=== PATIENT | male | born 1940 | race Caucasian/White ===

== ENCOUNTER → 2017-08-31 09:43 | Outpatient (CLI) | payer MEDICARE, BC, SELFPAY ==
--- NOTE | 2017-08-31 09:46 | NM_ITS ---
CLINICAL: 77-year-old diabetic male presenting for evaluation of gastric emptying. SEMI-SOLID PHASE 99m Tc SULFUR COLLOID GASTRIC EMPTYING STUDY COMPARISON: None available FINDINGS: The patient was administered 1.1 mCi of 99m Tc sulfur colloid mixed with oatmeal and consumed per os. Image acquisitions in the anterior-posterior projections were obtained for 60 minutes. There is prompt visualization of the stomach. There is no gastroesophageal reflux identified. The T1/2 linear fit was calculated to be 44.90 minutes, (Normal: 12-56 minutes). NM/Gastric Emptying Study IMPRESSION: 1. NORMAL 99m Tc sulfur colloid semi-solid phase (oatmeal) gastric emptying imaging examination. A. There is normal and preserved semi-solid phase gastric emptying compared to normal controls. ([place] et al, J Nucl Med Tech 38: 186, 2010). Electronically Signed: Branden Abarca DO at 10:37 EST Tel , Service support ,
== END ==
PROVIDERS: Family Provider Family Medicine; PCP Family Medicine; Visit Provider Family Medicine
DX: E11.65 Type 2 diabetes mellitus with hyperglycemia (principal)
CPT/HCPCS: 78264; A9541

== ENCOUNTER → 2017-11-03 13:47 | Outpatient (CLI) | payer MEDICARE, BC, SELFPAY ==
[2017-11-03 14:16] LABS: Bacteria 0 SEEN /hpf (None Seen); Red Blood Cells-Urine 0 SEEN /hpf (0-5); Squamous Epithelial Cells - UA 0 SEEN /hpf (0-5); White Blood Cells 0 SEEN /hpf (0-5)
[2017-11-03 15:47] LABS: Absolute Lymphocyte Count 2.24 X10^3/ul (0.83-4.51); Absolute Neutrophil Count 6.2 X10^3/uL (2.0-7.7); Basophil# 0.04 X10^3/uL; Basophil% 0.4 % (0-1); Eosinophils% 1.1 % (0-5); Hematocrit 39.4 % (40-54); Hemoglobin 13.1 g/dl (13.0-16.5); Lymphocyte # 2.24 X10^3/ul (4.0); Lymphocyte % 23.9 % (19-41); Mean Corp Hgb Conc 33.2 g/gl (32-36); Mean Corpuscular Volume 90.2 fL (80-94); Mean Platelet Vol. 10.1 fl (6.2-12.0); Monocyte# 0.77 X10^3/uL; Monocyte% 8.2 % (0-10); Neutrophil # 6.21 X10^3/uL (2.7-7.7); Neutrophil % 66.3 % (47-70); Platelet Count 268 K/mm3 (150-450); RBC Distribution Width CV 14.9 % (11.6-14.6); RBC Distribution Width SD 49.1 fl (35.1-43.9); Red Blood Count 4.37 M/mm3 (4.6-6.2); White Blood Count 9.4 K/mm3 (4.4-11.0)
[2017-11-03 15:54] LABS: POSITIVE COUNT NO; POSITIVE DIFFERENTIAL NO; POSITIVE MORPHOLOGY NO
[2017-11-03 15:55] LABS: ALB/GLOB Ratio 0.9 RATIO (0.9-2.4); AST(SGOT) 35 U/L (15-37); Alanine Aminotransfer ALT/SGPT 49 U/L (16-61); Albumin, Serum 3.4 g/dL (3.2-5.0); Alkaline Phosphatase 151 U/L (45-117); Anion Gap 9 (5-15); BUN 31 mg/dL (7-18); BUN/Creat Ratio 23.1 RATIO (10-20); Calcium,Total 8.6 mg/dL (8.5-10.1); Chloride 104 mmol/L (98-107); Creatinine, Serum 1.34 mg/dL (0.70-1.30); EST Glomerular Filtration Rate 55 mL/min (>60); Est Glom Filt Rate - Afr Amer 67 mL/min (>60); Globulin 3.6 g/dL (2.2-4.2); Glucose 111 mg/dL (74-106); Magnesium 2.3 mg/dL (1.6-2.6); Phosphorus 3.8 mg/dL (2.5-4.9); Potassium 3.7 mmol/L (3.5-5.1); Sodium Level 139 mmol/L (136-145)
[2017-11-03 15:59] LABS: Color, Urine Yellow (Yellow); Glucose, Dipstick Normal (Normal); Ketone-Dipstick Negative (Negative); Leukocyte Esterase-Dipstick Negative /ul (Negative); Nitrite-Dipstick Negative (Negative); Occult Blood-Urine Negative /ul (Negative); Protein-Dipstick Negative (Negative); Specific Gravity, Urine 1.015 (1.002-1.030); Urine Bilirubin Dipstick Negative (Negative); Urine Clarity Clear (Clear); Urine Urobilinogen Normal (Normal)
[2017-11-03 16:00] LABS: Hemoglobin A1c 8.6 % (4.2-6.3)
[2017-11-03 16:10] LABS: Hyaline Cast 0-5 SEEN /lpf (0-5); Mucous, Urine RARE /hpf (<or=2+)
[2017-11-03 16:25] LABS: Microalbumin,Random Urine 27.4 mg/L (NO RANGE EST.); Microalbumin:Creatinine Ratio 47.2 mg/g CRE (<30 mg/g CRE); Protein:Creat Ratio 275 mg/g CRE (0-200)
[2017-11-04 11:58] LABS: Vitamin D,25 Hydroxy 54.8 ng/mL (29.95-100.01)
[2017-11-04 12:02] LABS: PTHIN 49.7 pg/mL (18.4-80.1)
== END ==
PROVIDERS: Family Provider Family Medicine; PCP Family Medicine; Visit Provider Family Medicine
DX: I12.9 Hypertensive chronic kidney disease with stage 1 through stage 4 chronic kidney disease, or unspecified chronic kidney disease (principal); N18.3 Chronic kidney disease, stage 3 (moderate); E11.65 Type 2 diabetes mellitus with hyperglycemia; R80.9 Proteinuria, unspecified
CPT/HCPCS: 36415; 80053; 81001; 82043; 82306; 82570; 83036; 83735; 83970; 84100; 84156; 85025

== ENCOUNTER → 2018-02-07 10:03 | Outpatient (CLI) | payer MEDICARE, BC, SELFPAY ==
[2018-02-07 12:03] LABS: Absolute Neutrophil Count 5.1 X10^3/uL (2.0-7.7); Basophil# 0.04 X10^3/uL; Basophil% 0.5 % (0-1); Eosinophil# 0.19 X10^3/uL; Eosinophils% 2.5 % (0-5); Hematocrit 40.6 % (40-54); Hemoglobin 13.6 g/dl (13.0-16.5); Lymphocyte % 21.1 % (19-41); Mean Corp Hgb Conc 33.5 g/gl (32-36); Mean Corpuscular Hgb 29.9 pg (27.0-32.0); Mean Corpuscular Volume 89.2 fL (80-94); Monocyte# 0.66 X10^3/uL; Monocyte% 8.7 % (0-10); Neutrophil # 5.08 X10^3/uL (2.7-7.7); Neutrophil % 67.1 % (47-70); POSITIVE COUNT NO; POSITIVE DIFFERENTIAL NO; POSITIVE MORPHOLOGY NO; Platelet Count 248 K/mm3 (150-450); RBC Distribution Width CV 14.2 % (11.6-14.6); RBC Distribution Width SD 45.9 fl (35.1-43.9); Red Blood Count 4.55 M/mm3 (4.6-6.2); White Blood Count 7.6 K/mm3 (4.4-11.0)
[2018-02-07 12:11] LABS: AST(SGOT) 34 U/L (15-37); Alanine Aminotransfer ALT/SGPT 46 U/L (16-61); Albumin, Serum 3.4 g/dL (3.2-5.0); Alkaline Phosphatase 130 U/L (45-117); Anion Gap 10 (5-15); BUN 24 mg/dL (7-18); BUN/Creat Ratio 21.2 RATIO (10-20); Calcium,Total 8.5 mg/dL (8.5-10.1); Chloride 100 mmol/L (98-107); Cholesterol 105 mg/dL (200); Creatinine, Serum 1.13 mg/dL (0.70-1.30); EST Glomerular Filtration Rate 67 mL/min (>60); Est Glom Filt Rate - Afr Amer 81 mL/min (>60); Globulin 3.4 g/dL (2.2-4.2); Glucose 103 mg/dL (74-106); High Density Lipoprotein 33 mg/dL; Potassium 3.9 mmol/L (3.5-5.1); Protein, Total 6.8 g/dL (6.4-8.2); Sodium Level 138 mmol/L (136-145); Triglycerides 79 mg/dL; Very Low Density Lipoprotein 16 mg/dL (5-40)
[2018-02-07 12:16] LABS: Hemoglobin A1c 8.7 % (4.2-6.3)
[2018-02-08 08:18] LABS: Vitamin D,25 Hydroxy 41.4 ng/mL (29.95-100.01)
== END ==
PROVIDERS: Family Provider Family Medicine; PCP Family Medicine; Visit Provider Family Medicine
DX: E11.65 Type 2 diabetes mellitus with hyperglycemia (principal); N18.3 Chronic kidney disease, stage 3 (moderate); I10 Essential (primary) hypertension
CPT/HCPCS: 36415; 80053; 80061; 81001; 82043; 82306; 82570; 83036; 84156; 85025

== ENCOUNTER → 2018-02-16 10:11 | Outpatient (CLI) | payer MEDICARE, BC, SELFPAY ==
[2018-02-16 10:18] LABS: Bacteria 0 SEEN /hpf (None Seen); Mucous, Urine 0 SEEN /hpf (<or=2+); Red Blood Cells-Urine 0 SEEN /hpf (0-5); Squamous Epithelial Cells - UA 0 SEEN /hpf (0-5); White Blood Cells 0 SEEN /hpf (0-5)
[2018-02-16 12:24] LABS: Color, Urine Yellow (Yellow); Glucose, Dipstick Normal (Normal); Ketone-Dipstick Negative (Negative); Leukocyte Esterase-Dipstick Negative /ul (Negative); Nitrite-Dipstick Negative (Negative); Occult Blood-Urine Negative /ul (Negative); Protein-Dipstick 15 mg/dl (Negative); Specific Gravity, Urine 1.005 (1.002-1.030); Urine Bilirubin Dipstick Negative (Negative); Urine Clarity Sl. Cloudy (Clear); Urine Urobilinogen Normal (Normal)
[2018-02-16 12:50] LABS: Microalbumin,Random Urine 16.8 mg/L (NO RANGE EST.); Microalbumin:Creatinine Ratio 20.8 mg/g CRE (<30 mg/g CRE); Protein, Urine (Random) 27.8 mg/dL (<11.9); Protein:Creat Ratio 344 mg/g CRE (0-200)
== END ==
PROVIDERS: Family Provider Family Medicine; PCP Family Medicine; Visit Provider Family Medicine
DX: R80.9 Proteinuria, unspecified (principal); N18.3 Chronic kidney disease, stage 3 (moderate)
CPT/HCPCS: 81001; 82043; 82570; 84156

== ENCOUNTER 2018-03-17 06:32 | Inpatient (IN) | payer MEDICARE, BC, SELFPAY ==
[2018-03-17] VITALS (20 sets, daily range): BP systolic 86–134; BP diastolic 46–75; PULSE 60–81; RESP 14–20; TEMP 36–37.2; O2SAT 95–100; BMI 23.3; BMI 23.0
--- NOTE | 2018-03-17 06:47 | ED.VIS.GEN ---
History of Present Illness Informant: Patient Onset: Yesterday Context: Gradual Onset Timing: Continuous Quality: lightheadedness Location: gen Current Severity: Mild Maximum Severity: Moderate Worsened by: standing Relieved by: sitting/resting Associated Symptoms: tingling both hands only. fatigue. Narrative: Patient states all day yesterday he felt lightheadedness, worse when standing up, and felt tired/fatigued. Overnight, he felt tingling in both hands, nothing in his legs. Blood sugar was in the 200s yesterday, when asked if that is normal for him he states he does not know and states that he was in the 400s a week or 2 ago and felt worse then. States he has been drinking plenty of water. He has been working hard in the barn outside during hot temperatures. States he has a headache this morning. No loss of consciousness or syncope, no chest discomfort, shortness of breath, nausea, vomiting, abdominal discomfort, diarrhea. Patient is very poor historian and gives very vague answers to many direct questions. He does not know many details about his past medical history except for the fact that he had a CABG and has had cardiac stents in the past. Family thinks that he is on Eliquis because of a history of A. fib. He has a pacemaker/AICD for my pulse. <Catracho Donohue - Last Filed: 03/17/18 07:40> <Js Musa - Last Filed: 03/17/18 08:26> Chief Complaint: Dizziness - Past Medical History (1) Essential (primary) hypertension Status: Chronic (2) Hx of CABG Status: Chronic Comment: 11/08/2009- ERWIN to LAD, SVG to 1st CFX & 2nd CFX (3) Hyperlipemia, mixed Status: Chronic (4) Ischemic cardiomyopathy Status: Chronic (5) Muscle cramps Status: Chronic (6) NSVT (nonsustained ventricular tachycardia) Status: Chronic (7) Nonrheumatic mitral valve insufficiency Status: Chronic (8) S/P ICD (internal cardiac defibrillator) procedure Status: Chronic Comment: atrial lead and ICD 03/02/2007; RV lead replacement d/t fractured sprint daniel lead with ICD shocks 01/03/2012 (9) Status post mitral valve annuloplasty Status: Chronic Comment: 30mm [place] saddle ring (10) Type 2 diabetes mellitus without complications Status: Chronic <Catracho Donohue - Last Filed: 03/17/18 07:40> Past Medical History Surgical History: coronary bypass surgery Lives: With Family Smoking Status: Former smoker <Catracho Donohue - Last Filed: 03/17/18 07:40> <Js Musa - Last Filed: 03/17/18 08:26> - Allergies and Home Meds Allergies/Adverse Reactions: Allergies rivaroxaban [From Xarelto] Allergy (Severe, Verified 03/17/18 06:36) tongue swelling azithromycin [From Zithromax] Adverse Reaction (Severe, Verified 03/17/18 06:36) blisters metolazone Adverse Reaction (Severe, Verified 03/17/18 06:36) Rash/Itching catopril Allergy (Severe, Uncoded 03/17/18 06:36) Tongue Swelling Primary Care Physician: Jose Enrique Finney MD [Primary Care Provider] - Review of Systems All systems negative except as indicated General: Reports: Malaise, Sweats. Denies: Chills, Fever Eyes: Denies: Visual changes - bilaterally, Diplopia ENT: Denies: Bilateral ear pain Cardiovascular: Denies: Chest pain, Palpitations, Heart racing Respiratory: Denies: Dyspnea, Cough, Orthopnea, Paroxysmal nocturnal dyspnea Gastrointestinal: Denies: Abdominal pain, Nausea, Vomiting, Diarrhea, Melena, Hematochezia Genitourinary: Denies: Dysuria, Hematuria Musculoskeletal: Reports: Extremity Pain - occasional cramping in legs, muscle spasms especially when lifting something heavy. Denies: Neck pain, Back pain, Swelling Neurological: Reports: Headache, Parasthesia. Denies: Weakness <Catracho Donohue - Last Filed: 03/17/18 07:40> Physical Exam Vital Signs/Narrative: Vital Signs Temp Pulse Resp BP Pulse Ox 03/17/18 06:33 97.7 F L 81 20 H 134/75 H 99 Inital Vital Signs reviewed: Yes General: Well nourished, Well developed Head: Normocephalic, Atraumatic Eyes: Perrl, EOMI ENT: Moist mucous membranes, No rhinorrhea Neck: Supple, Nontender Cardiovascular: Regular rate, Regular rhythm, Murmur - Soft systolic ejection murmur, 2/6 Respiratory: No distress, CTA bilaterally, Chest nontender Abdomen: Soft, Nontender, Nondistended, Normal bowel sounds Back: Nontender, Normal Inspection Extremities: Nontender, No edema Skin: Normal color, No rash Neurological: Alert, Oriented x3, Cranial nerves II-XII grossly intact, Normal Strength, Normal Sensation, Normal Gait Psychological: Normal affect <Catracho Donohue - Last Filed: 03/17/18 07:40> Vital Signs/Narrative: Vital Signs Temp Pulse Resp BP Pulse Ox 03/17/18 06:33 97.7 F L 81 20 H 134/75 H 99 <Js Musa - Last Filed: 03/17/18 08:26> Diagnostic/Tx/Re-eval Laboratory Tests 03/17/18 03/17/18 03/17/18 06:48 06:50 06:50 WBC 9.0 RBC 2.76 L Hgb 8.2 L Hct 25.0 L MCV 90.6 MCH 29.7 MCHC 32.8 RDW 14.0 RDW Differential 44.0 H Plt Count 195 MPV 10.1 Immature Gran % (Auto) 0.300 Neut % (Auto) 72.2 H Lymph % (Auto) 16.5 L [place] % (Auto) 9.5 Eos % (Auto) 1.1 Baso % (Auto) 0.4 Absolute Neuts (auto) 6.5 Absolute Lymphs (auto) 1.49 Total Counted Not Reportable Sodium 136 Potassium 3.3 L Chloride 100 Carbon Dioxide 25.0 Anion Gap 11 BUN 60 H Creatinine 1.29 Estim Creat Clear Calc 45.55 Est GFR (MDRD) Af Amer 70 Est GFR (MDRD) Non-Af 57 L BUN/Creatinine Ratio 46.5 H Glucose 375 H Calcium 8.0 L Troponin I 0.030 Urine Color Urine Clarity Urine pH Ur Specific [place] Urine Protein Urine Glucose (UA) Urine Ketones Urine Occult Blood Urine Nitrite Urine Bilirubin Urine Urobilinogen Ur Leukocyte Esterase Urine RBC Urine WBC Ur Squamous Epith Cells Urine Bacteria Urine Mucus POC Glucose 375 H 03/17/18 07:00 WBC RBC Hgb Hct MCV MCH MCHC RDW RDW Differential Plt Count MPV Immature Gran % (Auto) Neut % (Auto) Lymph % (Auto) [place] % (Auto) Eos % (Auto) Baso % (Auto) Absolute Neuts (auto) Absolute Lymphs (auto) Total Counted Sodium Potassium Chloride Carbon Dioxide Anion Gap BUN Creatinine Estim Creat Clear Calc Est GFR (MDRD) Af Amer Est GFR (MDRD) Non-Af BUN/Creatinine Ratio Glucose Calcium Troponin I Urine Color Yellow Urine Clarity Clear Urine pH 6.5 Ur Specific [place] 1.010 Urine Protein 15 H Urine Glucose (UA) 250 H Urine Ketones Negative Urine Occult Blood Negative Urine Nitrite Negative Urine Bilirubin Negative Urine Urobilinogen Normal Ur Leukocyte Esterase Negative Urine RBC 0 SEEN Urine WBC 0 SEEN Ur Squamous Epith Cells 0 SEEN Urine Bacteria 0 SEEN Urine Mucus 0 SEEN POC Glucose - Rhythm Strip Rhythm Strip: Paced Rate: 65 Ectopy: PVC(s) - EKG Initial EKG Interpretation: Paced - ventricular, - - PVC Prior: No Prior - unable to check due to software being unavailable - Medical Decision Making Labs show concern for possible upper GI bleeding. On further questioning, he had dark stools last few days but his last one last night was more normal. He has seen no bright red blood. No nausea/vomiting. States he was bloated yesterday, which he did not initially report, but had no pain. His hemoglobin is down 4-5 g compared with a month ago and his BUN is very high. He is hemodynamically stable. Some IV fluids and potassium ordered for a potassium of 3.3, he is on Lasix which is probably why, and discussed all this with him as well as the oncoming emergency physician Dr. Musa, who will resume care. <Catracho Donohue - Last Filed: 03/17/18 07:40> Clinical Impression(s) from Imaging Studies Brain CT 03/17/18 06:49 IMPRESSION: There is NO acute intracranial abnormality. Electronically Signed: John Mcclellan MD at 7:43 EDT , Service support , Chest X-Ray 03/17/18 07:29 IMPRESSION: Postoperative changes without evidence of acute cardiopulmonary disease. Electronically Signed: Inez Soares MD at 8:09 EDT , Service support , - Medical Decision Making Patient's stool Hemoccult test is positive. His hemoglobin is down 45 g from a month ago. BUN is elevated. He is hemodynamically stable. I discussed with Dr. Swain. He would be willing to evaluate the patient for possible EGD and colonoscopy. Patient will have type and screen will be admitted to the hospital <Js Musa - Last Filed: 03/17/18 08:26> ED Disposition <Catracho Donohue - Last Filed: 03/17/18 07:40> <Js Musa - Last Filed: 03/17/18 08:26> - Plan for ED Patient: Disposition: Acute Care Hospital [facility] Chief Complaint: Dizziness Diagnosis: Upper GI bleed, Acute blood loss anemia, Anticoagulated, Hypokalemia due to loss of potassium Referrals: Jose Enrique Finney MD [Primary Care Provider] -
[2018-03-17 06:50] LABS: Bedside Glucose 375 mg/dL (70-110)
--- NOTE | 2018-03-17 06:52 | ED.DCSUM_ITS ---
History of Present Illness Informant: Patient Onset: Yesterday Context: Gradual Onset Timing: Continuous Quality: lightheadedness Location: gen Current Severity: Mild Maximum Severity: Moderate Worsened by: standing Relieved by: sitting/resting Associated Symptoms: tingling both hands only. fatigue. Narrative: Patient states all day yesterday he felt lightheadedness, worse when standing up , and felt tired/fatigued. Overnight, he felt tingling in both hands, nothing in his legs. Blood sugar was in the 200s yesterday, when asked if that is normal for him he states he does not know and states that he was in the 400s a week or 2 ago and felt worse then. States he has been drinking plenty of water. He has been working hard in the barn outside during hot temperatures. States he has a headache this morning. No loss of consciousness or syncope, no chest discomfort, shortness of breath, nausea, vomiting, abdominal discomfort, diarrhea. Patient is very poor historian and gives very vague answers to many direct questions. He does not know many details about his past medical history except for the fact that he had a CABG and has had cardiac stents in the past. Family thinks that he is on Eliquis because of a history of A. fib. He has a pacemaker /AICD for my pulse. <Catracho Donohue - Last Filed: 03/17/18 07:40> <Js Musa - Last Filed: 03/17/18 08:26> Chief Complaint: Dizziness - Past Medical History (1) Essential (primary) hypertension Status: Chronic (2) Hx of CABG Status: Chronic Comment: 11/08/2009- ERWIN to LAD, SVG to 1st CFX & 2nd CFX (3) Hyperlipemia, mixed Status: Chronic (4) Ischemic cardiomyopathy Status: Chronic (5) Muscle cramps Status: Chronic (6) NSVT (nonsustained ventricular tachycardia) Status: Chronic (7) Nonrheumatic mitral valve insufficiency Status: Chronic (8) S/P ICD (internal cardiac defibrillator) procedure Status: Chronic Comment: atrial lead and ICD 03/02/2007; RV lead replacement d /t fractured sprint daniel lead with ICD shocks 01/03/2012 (9) Status post mitral valve annuloplasty Status: Chronic Comment: 30mm [place] saddle ring (10) Type 2 diabetes mellitus without complications Status: Chronic <Catracho Donohue - Last Filed: 03/17/18 07:40> Past Medical History Surgical History: coronary bypass surgery Lives: With Family Smoking Status: Former smoker <Catracho Donohue - Last Filed: 03/17/18 07:40> <Js Musa - Last Filed: 03/17/18 08:26> - Allergies and Home Meds Allergies/Adverse Reactions: Allergies rivaroxaban [From Xarelto] Allergy (Severe, Verified 03/17/18 06:36) tongue swelling azithromycin [From Zithromax] Adverse Reaction (Severe, Verified 03/17/18 06:36) blisters metolazone Adverse Reaction (Severe, Verified 03/17/18 06:36) Rash/Itching catopril Allergy (Severe, Uncoded 03/17/18 06:36) Tongue Swelling Primary Care Physician: Jose Enrique Finney MD [Primary Care Provider] - Review of Systems All systems negative except as indicated General: Reports: Malaise, Sweats. Denies: Chills, Fever Eyes: Denies: Visual changes - bilaterally, Diplopia ENT: Denies: Bilateral ear pain Cardiovascular: Denies: Chest pain, Palpitations, Heart racing Respiratory: Denies: Dyspnea, Cough, Orthopnea, Paroxysmal nocturnal dyspnea Gastrointestinal: Denies: Abdominal pain, Nausea, Vomiting, Diarrhea, Melena, Hematochezia Genitourinary: Denies: Dysuria, Hematuria Musculoskeletal: Reports: Extremity Pain - occasional cramping in legs, muscle spasms especially when lifting something heavy. Denies: Neck pain, Back pain, Swelling Neurological: Reports: Headache, Parasthesia. Denies: Weakness <Catracho Donohue - Last Filed: 03/17/18 07:40> Physical Exam Vital Signs/Narrative: Vital Signs Temp Pulse Resp BP Pulse Ox 03/17/18 06:33 97.7 F L 81 20 H 134/75 H 99 Inital Vital Signs reviewed: Yes General: Well nourished, Well developed Head: Normocephalic, Atraumatic Eyes: Perrl, EOMI ENT: Moist mucous membranes, No rhinorrhea Neck: Supple, Nontender Cardiovascular: Regular rate, Regular rhythm, Murmur - Soft systolic ejection murmur, 2/6 Respiratory: No distress, CTA bilaterally, Chest nontender Abdomen: Soft, Nontender, Nondistended, Normal bowel sounds Back: Nontender, Normal Inspection Extremities: Nontender, No edema Skin: Normal color, No rash Neurological: Alert, Oriented x3, Cranial nerves II-XII grossly intact, Normal Strength, Normal Sensation, Normal Gait Psychological: Normal affect <Catracho Donohue - Last Filed: 03/17/18 07:40> Vital Signs/Narrative: Vital Signs Temp Pulse Resp BP Pulse Ox 03/17/18 06:33 97.7 F L 81 20 H 134/75 H 99 <Js Musa - Last Filed: 03/17/18 08:26> Diagnostic/Tx/Re-eval Laboratory Tests 03/17/18 03/17/18 03/17/18 06:48 06:50 06:50 WBC 9.0 RBC 2.76 L Hgb 8.2 L Hct 25.0 L MCV 90.6 MCH 29.7 MCHC 32.8 RDW 14.0 RDW Differential 44.0 H Plt Count 195 MPV 10.1 Immature Gran % (Auto) 0.300 Neut % (Auto) 72.2 H Lymph % (Auto) 16.5 L [place] % (Auto) 9.5 Eos % (Auto) 1.1 Baso % (Auto) 0.4 Absolute Neuts (auto) 6.5 Absolute Lymphs (auto) 1.49 Total Counted Not Reportable Sodium 136 Potassium 3.3 L Chloride 100 Carbon Dioxide 25.0 Anion Gap 11 BUN 60 H Creatinine 1.29 Estim Creat Clear Calc 45.55 Est GFR (MDRD) Af Amer 70 Est GFR (MDRD) Non-Af 57 L BUN/Creatinine Ratio 46.5 H Glucose 375 H Calcium 8.0 L Troponin I 0.030 Urine Color Urine Clarity Urine pH Ur Specific [place] Urine Protein Urine Glucose (UA) Urine Ketones Urine Occult Blood Urine Nitrite Urine Bilirubin Urine Urobilinogen Ur Leukocyte Esterase Urine RBC Urine WBC Ur Squamous Epith Cells Urine Bacteria Urine Mucus POC Glucose 375 H 03/17/18 07:00 WBC RBC Hgb Hct MCV MCH MCHC RDW RDW Differential Plt Count MPV Immature Gran % (Auto) Neut % (Auto) Lymph % (Auto) [place] % (Auto) Eos % (Auto) Baso % (Auto) Absolute Neuts (auto) Absolute Lymphs (auto) Total Counted Sodium Potassium Chloride Carbon Dioxide Anion Gap BUN Creatinine Estim Creat Clear Calc Est GFR (MDRD) Af Amer Est GFR (MDRD) Non-Af BUN/Creatinine Ratio Glucose Calcium Troponin I Urine Color Yellow Urine Clarity Clear Urine pH 6.5 Ur Specific [place] 1.010 Urine Protein 15 H Urine Glucose (UA) 250 H Urine Ketones Negative Urine Occult Blood Negative Urine Nitrite Negative Urine Bilirubin Negative Urine Urobilinogen Normal Ur Leukocyte Esterase Negative Urine RBC 0 SEEN Urine WBC 0 SEEN Ur Squamous Epith Cells 0 SEEN Urine Bacteria 0 SEEN Urine Mucus 0 SEEN POC Glucose - Rhythm Strip Rhythm Strip: Paced Rate: 65 Ectopy: PVC(s) - EKG Initial EKG Interpretation: Paced - ventricular, - - PVC Prior: No Prior - unable to check due to software being unavailable - Medical Decision Making Labs show concern for possible upper GI bleeding. On further questioning, he had dark stools last few days but his last one last night was more normal. He has seen no bright red blood. No nausea/vomiting. States he was bloated yesterday, which he did not initially report, but had no pain. His hemoglobin is down 4-5 g compared with a month ago and his BUN is very high. He is hemodynamically stable. Some IV fluids and potassium ordered for a potassium of 3.3, he is on Lasix which is probably why, and discussed all this with him as well as the oncoming emergency physician Dr. Musa, who will resume care. <Catracho Donohue - Last Filed: 03/17/18 07:40> Clinical Impression(s) from Imaging Studies Brain CT 03/17/18 06:49 IMPRESSION: There is NO acute intracranial abnormality. Electronically Signed: John Mcclellan MD at 7:43 EDT , Service support , Chest X-Ray 03/17/18 07:29 IMPRESSION: Postoperative changes without evidence of acute cardiopulmonary disease. Electronically Signed: Inez Soares MD at 8:09 EDT , Service support , - Medical Decision Making Patient's stool Hemoccult test is positive. His hemoglobin is down 45 g from a month ago. BUN is elevated. He is hemodynamically stable. I discussed with Dr. Swain. He would be willing to evaluate the patient for possible EGD and colonoscopy. Patient will have type and screen will be admitted to the hospital <Js Musa - Last Filed: 03/17/18 08:26> ED Disposition <Catracho Donohue - Last Filed: 03/17/18 07:40> <Js Musa - Last Filed: 03/17/18 08:26> - Plan for ED Patient: Disposition: Acute Care Hospital [facility] Chief Complaint: Dizziness Diagnosis: Upper GI bleed, Acute blood loss anemia, Anticoagulated, Hypokalemia due to loss of potassium Referrals: Jose Enrique Finney MD [Primary Care Provider] -
[2018-03-17 07:08] LABS: Bacteria 0 SEEN /hpf (None Seen); Mucous, Urine 0 SEEN /hpf (<or=2+); Red Blood Cells-Urine 0 SEEN /hpf (0-5); Squamous Epithelial Cells - UA 0 SEEN /hpf (0-5); White Blood Cells 0 SEEN /hpf (0-5)
[2018-03-17 07:11] LABS: Color, Urine Yellow (Yellow); Glucose, Dipstick 250 mg/dl (Normal); Ketone-Dipstick Negative (Negative); Leukocyte Esterase-Dipstick Negative /ul (Negative); Nitrite-Dipstick Negative (Negative); Occult Blood-Urine Negative /ul (Negative); Protein-Dipstick 15 mg/dl (Negative); Urine Bilirubin Dipstick Negative (Negative); Urine Clarity Clear (Clear); Urine Urobilinogen Normal (Normal); Urine pH 6.5 (5.0 - 8.0)
[2018-03-17 07:11] LABS: Absolute Lymphocyte Count 1.49 X10^3/ul (0.83-4.51); Absolute Neutrophil Count 6.5 X10^3/uL (2.0-7.7); Basophil# 0.04 X10^3/uL; Basophil% 0.4 % (0-1); Eosinophils% 1.1 % (0-5); Hemoglobin 8.2 g/dl (13.0-16.5); Lymphocyte # 1.49 X10^3/ul (4.0); Lymphocyte % 16.5 % (19-41); Mean Corp Hgb Conc 32.8 g/gl (32-36); Mean Corpuscular Hgb 29.7 pg (27.0-32.0); Mean Corpuscular Volume 90.6 fL (80-94); Mean Platelet Vol. 10.1 fl (6.2-12.0); Monocyte# 0.86 X10^3/uL; Monocyte% 9.5 % (0-10); Neutrophil # 6.49 X10^3/uL (2.7-7.7); Neutrophil % 72.2 % (47-70); Platelet Count 195 K/mm3 (150-450); Red Blood Count 2.76 M/mm3 (4.6-6.2)
[2018-03-17 07:21] LABS: Anion Gap 11 (5-15); BUN 60 mg/dL (7-18); BUN/Creat Ratio 46.5 RATIO (10-20); Chloride 100 mmol/L (98-107); Creatinine, Serum 1.29 mg/dL (0.70-1.30); EST Glomerular Filtration Rate 57 mL/min (>60); Est Glom Filt Rate - Afr Amer 70 mL/min (>60); Estimated Creatinine Clearance 45.55 ml/min; Glucose 375 mg/dL (74-106); POSITIVE COUNT NO; POSITIVE DIFFERENTIAL NO; POSITIVE MORPHOLOGY NO; Potassium 3.3 mmol/L (3.5-5.1); Sodium Level 136 mmol/L (136-145)
--- NOTE | 2018-03-17 08:30 | PCM.HP.STD ---
Problem List (1) Acute blood loss anemia Status: Acute (2) Anticoagulated Status: Acute (3) Atherosclerosis of [place] coronary artery of [place] heart without angina pectoris Status: Chronic (4) Essential (primary) hypertension Status: Chronic (5) History of electrophysiologic study Status: Chronic Comment: Inducible VT- (6) History of left heart catheterization Status: Chronic Comment: 2001; PTCA of RCA intracoronary stent 2000; @ [facility] 08/28/1999; 11/22/2016 attempted PTCA of RCA; 01/11/2007 PTCA/Stent to mid CX, prox LAD, and OM1 @ [facility]; (7) Hx of CABG Status: Chronic Comment: 11/08/2009- ERWIN to LAD, SVG to 1st CFX & 2nd CFX (8) Hyperlipemia, mixed Status: Chronic (9) Hypokalemia due to loss of potassium Status: Acute (10) Ischemic cardiomyopathy Status: Chronic (11) Muscle cramps Status: Chronic (12) Nonrheumatic mitral valve insufficiency Status: Chronic (13) NSVT (nonsustained ventricular tachycardia) Status: Chronic (14) S/P ICD (internal cardiac defibrillator) procedure Status: Chronic Comment: atrial lead and ICD 03/02/2007; RV lead replacement d/t fractured sprint daniel lead with ICD shocks 01/03/2012 (15) Status post mitral valve annuloplasty Status: Chronic Comment: 30mm [place] saddle ring (16) Type 2 diabetes mellitus without complications Status: Chronic (17) Upper GI bleed Status: Acute History of Present Illness Date of Admission: 03/17/18 Chief Complaint: Lightheadedness The patient is a 77 year old M with multiple comorbidities including paroxysmal atrial fibrillation, history of nonsustained VT status post AICD placement CAD history of mitral valve arthroplasty systemic anticoagulation with Eliquis who presents with lightheadedness. Patient symptoms started the day prior to his admission. He did experience numbness involving upper and lower extremities. He also did complain of some throbbing involving his head. He had experienced progressive fatigue with minimal exertion and on the night of his presentation did experience lightheadedness. Subsequently presented to the emergency department where his hemoglobin was found to be 0.2. He is quite also came back positive general surgery was consulted patient was admitted for subsequent management Past Medical History Past Medical History (Chronic Problems): Chronic Problems (Last Updated 07/18/17 @ 15:22 by LILLIANA BallardC) Muscle cramps (Chronic) History of electrophysiologic study (Chronic) Inducible VT- History of left heart catheterization (Chronic) 2001; PTCA of RCA intracoronary stent 2000; @ [facility] 08/28/1999; 11/22/2016 attempted PTCA of RCA; 01/11/2007 PTCA/Stent to mid CX, prox LAD, and OM1 @ [facility]; Status post mitral valve annuloplasty (Chronic) 30mm [place] Warren saddle ring Hx of CABG (Chronic) 11/08/2009- ERWIN to LAD, SVG to 1st CFX & 2nd CFX S/P ICD (internal cardiac defibrillator) procedure (Chronic) atrial lead and ICD 03/02/2007; RV lead replacement d/t fractured sprint daniel lead with ICD shocks 01/03/2012 NSVT (nonsustained ventricular tachycardia) (Chronic) Nonrheumatic mitral valve insufficiency (Chronic) Atherosclerosis of [place] coronary artery of [place] heart without angina pectoris (Chronic) Ischemic cardiomyopathy (Chronic) Essential (primary) hypertension (Chronic) Hyperlipemia, mixed (Chronic) Type 2 diabetes mellitus without complications (Chronic) Medical History: Medical History (Last Updated 07/18/17 @ 15:22 by Jose Enrique Ervin NP-C) NSVT (nonsustained ventricular tachycardia) (Chronic) I47.2 Nonrheumatic mitral valve insufficiency (Chronic) I34.0 Atherosclerosis of [place] coronary artery of [place] heart without angina pectoris (Chronic) I25.10 Ischemic cardiomyopathy (Chronic) I25.5 Essential (primary) hypertension (Chronic) I10 Hyperlipemia, mixed (Chronic) E78.2 Type 2 diabetes mellitus without complications (Chronic) E11.9 Allergies rivaroxaban [From Xarelto] Allergy (Severe, Verified 03/17/18 06:36) tongue swelling azithromycin [From Zithromax] Adverse Reaction (Severe, Verified 03/17/18 06:36) blisters metolazone Adverse Reaction (Severe, Verified 03/17/18 06:36) Rash/Itching catopril Allergy (Severe, Uncoded 03/17/18 06:36) Tongue Swelling Home Medications: Ambulatory Orders Medication Instructions Recorded Apixaban [Eliquis] 5 mg PO BID 04/11/17 Aspirin [Aspirin, Baby] 81 mg PO DAILY@0800 04/11/17 Insulin Detemir [Levemir (BKC)] 22 units SC DAILY 04/11/17 Metolazone [Zaroxolyn] 2.5 mg PO MO 04/11/17 Multivitamins,Therapeutic 1 tab PO DAILY 04/11/17 [Multivitamin] Tamsulosin HCl [Flomax] 0.4 mg PO DAILY 04/11/17 rosuvastatin 40 mg tablet 40 mg PO QHS #90 tab 07/07/17 nitroglycerin 0.4 mg sublingual 0.4 mg SUBLINGUAL Q5M PRN #25 tab 07/12/17 tablet furosemide 40 mg tablet 40 mg PO BID tab 07/19/17 potassium chloride ER 20 mEq 40 meq PO BID tab 07/19/17 tablet,extended release(part/cryst) carvedilol 12.5 mg tablet 12.5 mg PO BID #180 tab 12/22/17 isosorbide mononitrate ER 30 mg 30 mg PO DAILY #30 tab 01/19/18 tablet,extended release 24 hr Insulin Lispro [Humalog] 4 unit SC TID 03/17/18 Surgical History: Surgical History (Last Reviewed 07/19/17 @ 10:47 by Omer Rodas) History of electrophysiologic study (Chronic) Z98.890 Inducible VT- History of left heart catheterization (Chronic) Z98.890 2001; PTCA of RCA intracoronary stent 2000; @ [facility] 08/28/1999; 11/22/2016 attempted PTCA of RCA; 01/11/2007 PTCA/Stent to mid CX, prox LAD, and OM1 @ [facility]; Status post mitral valve annuloplasty (Chronic) Z98.[address] Warren saddle ring Hx of CABG (Chronic) Z95.1 11/08/2009- ERWIN to LAD, SVG to 1st CFX & 2nd CFX S/P ICD (internal cardiac defibrillator) procedure (Chronic) Z95.810 atrial lead and ICD 03/02/2007; RV lead replacement d/t fractured sprint daniel lead with ICD shocks 01/03/2012 Surgical History: coronary bypass surgery Lives: With Family Smoking Status: Former smoker - *Family History Maternal History Items: No pertinent history Review of Systems Constitutional: Reports: Weakness, Fatigue HEENT: Reports: Head Aches. Denies: Sinus Congestion, Sinus Drainage Cardiovascular: Denies: Chest Pain, Orthopnea, Palpitations, Paroxysmal Noc. Dyspnea Respiratory: Denies: Cough, Shortness of breath at rest, Shortness of breath upon exertion, Sputum production Gastrointestinal: Reports: Melena Genitourinary: Denies: Dysuria, Frequency, Hematuria, Urgency Musculoskeletal: Denies: Joint Pain, Joint Tenderness Skin: Denies: Rash Neurological: Denies: Focal weakness, Numbness, Tingling Psychiatric: Denies: Homicidal Ideations, Suicidal Ideations Hematologic/ Lymphatic: Reports: Anemia. Denies: Easy Bruising, Easy Bleeding VTE Information - Inpt Only VTE Present on Admission: No VTE Mechan Device Prophylaxis: Knee High ZAY Hose VTE Pharm Prophylaxis ordered?: No Reason prophylaxis not ordered:: Medical Contraindication Patient Problems: Active and Suspected Problems (Last Updated 07/18/17 @ 15:22 by Jose Enrique Ervin OIL WELL GUN PERFORATOR OPERATOR-C) Upper GI bleed (Acute) Acute blood loss anemia (Acute) Anticoagulated (Acute) Hypokalemia due to loss of potassium (Acute) Objective: GENERAL: cooperative HEENT: Clear conjunctiva, NECK; supple, normal thyroid, . CHEST: Clear to auscultation bilaterally, HEART: Regular S1 S2, ABDOMEN: soft, normoactive bowel sounds, RECTAL: deferred EXTREMITIES: No edema, no clubbing, no cyanosis. BURRER MARKER AXLE: Awake; no lateralizing signs. SKIN: No Rash - Physical Exam Vital Signs Temp Pulse Resp BP Pulse Ox 97.7 F L 81 20 H 134/75 H 99 03/17/18 06:33 03/17/18 06:33 03/17/18 06:33 03/17/18 06:33 03/17/18 06:33 Oxygen Delivery Method Room Air Weight: 67.6 kg Body Mass Index (BMI) 23.3 Finger Stick Blood Glucose 375 Microbiology Past 72 Hours 03/17/18 07:45 Stool Occult Blood (MADELEINE) - Final Stool Occult Blood Positive Laboratory Tests Past 24 Hrs 03/17/18 03/17/18 03/17/18 06:50 06:50 07:00 WBC 9.0 RBC 2.76 L Hgb 8.2 L Hct 25.0 L MCV 90.6 MCH 29.7 MCHC 32.8 RDW 14.0 RDW Differential 44.0 H Plt Count 195 MPV 10.1 Immature Gran % (Auto) 0.300 Neut % (Auto) 72.2 H Lymph % (Auto) 16.5 L [place] % (Auto) 9.5 Eos % (Auto) 1.1 Baso % (Auto) 0.4 Absolute Neuts (auto) 6.5 Absolute Lymphs (auto) 1.49 Total Counted Not Reportable Sodium 136 Potassium 3.3 L Chloride 100 Carbon Dioxide 25.0 Anion Gap 11 BUN 60 H Creatinine 1.29 Estim Creat Clear Calc 45.55 Est GFR (MDRD) Af Amer 70 Est GFR (MDRD) Non-Af 57 L BUN/Creatinine Ratio 46.5 H Glucose 375 H Calcium 8.0 L Troponin I 0.030 Urine Color Yellow Urine Clarity Clear Urine pH 6.5 Ur Specific [place] 1.010 Urine Protein 15 H Urine Glucose (UA) 250 H Urine Ketones Negative Urine Occult Blood Negative Urine Nitrite Negative Urine Bilirubin Negative Urine Urobilinogen Normal Ur Leukocyte Esterase Negative Urine RBC 0 SEEN Urine WBC 0 SEEN Ur Squamous Epith Cells 0 SEEN Urine Bacteria 0 SEEN Urine Mucus 0 SEEN Blood Type Antibody Screen 03/17/18 07:50 WBC RBC Hgb Hct MCV MCH MCHC RDW RDW Differential Plt Count MPV Immature Gran % (Auto) Neut % (Auto) Lymph % (Auto) [place] % (Auto) Eos % (Auto) Baso % (Auto) Absolute Neuts (auto) Absolute Lymphs (auto) Total Counted Sodium Potassium Chloride Carbon Dioxide Anion Gap BUN Creatinine Estim Creat Clear Calc Est GFR (MDRD) Af Amer Est GFR (MDRD) Non-Af BUN/Creatinine Ratio Glucose Calcium Troponin I Urine Color Urine Clarity Urine pH Ur Specific [place] Urine Protein Urine Glucose (UA) Urine Ketones Urine Occult Blood Urine Nitrite Urine Bilirubin Urine Urobilinogen Ur Leukocyte Esterase Urine RBC Urine WBC Ur Squamous Epith Cells Urine Bacteria Urine Mucus Blood Type Pending Antibody Screen Pending POC Glucose 03/17/18 06:48 POC Glucose 375 H Assessment/Plan All Active Problems (Last Updated 07/18/17 @ 15:22 by Jose Enrique Ervin, LILLIANAC) Upper GI bleed (Acute) Acute blood loss anemia (Acute) Anticoagulated (Acute) Hypokalemia due to loss of potassium (Acute) Patient is a 77-year-old gentleman with multiple comorbidities presented with numbness generalized weakness and lightheadedness found to be anemic with a positive guaiac stool on admission 1. Symptomatic anemia secondary to acute blood loss anemia suspected from upper GI bleed. Patient has been admitted to a monitored bed he was typed and crossmatched prior to be admitted consult was placed to Dr. Swain with general surgery plan is for patient undergo endoscopic evaluation on 03/17/2018. 2. Paroxysmal A. fib and history of nonsustained VT rate controlled patient is on systemic anticoagulation with Eliquis 3. CAD with previous CABG and PTCA involving patient RCA and mid circumflex LAD and OM1 4. History of ischemic cardiomyopathy status post AICD placement 5. History of mitral valve annuloplasty with 30mm [place]. [place] saddle ring 3 diabetes mellitus type 2 uncontrolled with complications including hypoglycemia patient is a long-acting insulin did continue with plans for dose adjustment as needed in addition to Accu-Cheks before meals and at bedtime with sliding scale insulin 7. Hypertension-blood pressure controlled, home medications continued with dose adjustment as needed 8. Dyslipidemia-patient is on statin therapy, continued at home dose 9. BPH patient is on Flomax 10. DVT prophylaxis patient was on Eliquis prior to his admission which is being held in view of his suspected upper GI bleed CODE STATUS did have an extensive discussion with the patient as well as family regarding his CODE STATUS patient wishes to remain full code at this point time spent in discussion 17 minute Clinical Impression(s) from Imaging Studies Brain CT 03/17/18 06:49 IMPRESSION: There is NO acute intracranial abnormality. Electronically Signed: John Mcclellan MD at 7:43 EDT , Service support , Chest X-Ray 03/17/18 07:29 IMPRESSION: Postoperative changes without evidence of acute cardiopulmonary disease. Electronically Signed: Inez Soares MD at 8:09 EDT , Service support , Active Medications Acetaminophen (Tylenol) 650 mg PO Q4H PRN PRN PRN Reason: FEVER Atorvastatin Calcium (Lipitor) 80 mg PO QHS JUDI Carvedilol (Coreg) 12.5 mg PO BID JUDI Dextrose (D50w Syringe) 0 gm IV X1 PRN; Protocol PRN Reason: Hypoglycemia Glucagon () 1 mg IM .X1 PRN PRN Reason: Hypoglycemia Sodium Chloride () 1,000 mls @ 75 mls/hr IV .[id number] [facility] Last Admin: 03/17/18 09:57 Dose: 75 mls/hr Insulin Glargine (Lantus (Bkc)) 22 units SC DAILY JUDI Insulin Human Lispro (Humalog Kwikpen (Bkc)) 0 unit SQ Q6 JUDI PRN Reason: Protocol Last Admin: 03/17/18 11:05 Dose: 4 units Insulin Human Lispro (Humalog Kwikpen (Bkc)) 4 unit SC TIDCM JUDI Isosorbide Mononitrate (Imdur) 30 mg PO DAILY JUDI Magnesium Hydroxide (Milk Of Magnesia) 30 ml PO DAILY PRN PRN Reason: Constipation Multivitamins (Multivitamin) 1 tablet PO DAILYCM [facility] Nitroglycerin (Nitrostat) 0.4 mg SUBLINGUAL Q5M PRN PRN Reason: Chest Pain Ondansetron HCl (Zofran) 4 mg IV Q8H PRN PRN PRN Reason: NAUSEA Potassium Chloride (K-Dur) 40 meq PO BIDCM [facility] Sodium Chloride () 5 - 30 ml IV UD PRN PRN Reason: SALINE FLUSH Tamsulosin HCl (Flomax) 0.4 mg PO DAILY [facility] Zolpidem Tartrate (Ambien (Generic)) 5 mg PO QHS PRN PRN PRN Reason: SLEEP Code Visit OBSV E&M: 67130 Initial observation care L3 Procedures: 87348 Advncd Care Plan 30 Min
[2018-03-17] MEDS: 0.9% Normal Saline 1,000 ML 75 ML IV ×2 (09:57→15:45)
--- NOTE | 2018-03-17 10:24 | PCM.CONS.GEN ---
Problem List (1) Upper GI bleed Status: Acute Reason for Consult Date of Consultation: 03/17/18 Reason for Consultation: Possible upper GI bleed History of Present Illness: The patient is a 77 year old M who presented to the emergency room for lightheadedness and dizziness. The patient was found to have a hemoglobin which was significantly lower than his hemoglobin earlier this month. The patient has noted 3 days of black stool. He is not having any abdominal pain but he does explain that he has been having some bloating lately. No nausea or vomiting. Patient is on Eliquis for A. fib. Past Medical History Past Medical History (Chronic Problems): Chronic Problems (Last Updated 07/18/17 @ 15:22 by MITESH Ballard) Muscle cramps (Chronic) History of electrophysiologic study (Chronic) Inducible VT- History of left heart catheterization (Chronic) 2001; PTCA of RCA intracoronary stent 2000; @ [facility] 08/28/1999; 11/22/2016 attempted PTCA of RCA; 01/11/2007 PTCA/Stent to mid CX, prox LAD, and OM1 @ [facility]; Status post mitral valve annuloplasty (Chronic) 30mm [place] saddle ring Hx of CABG (Chronic) 11/08/2009- ERWIN to LAD, SVG to 1st CFX & 2nd CFX S/P ICD (internal cardiac defibrillator) procedure (Chronic) atrial lead and ICD 03/02/2007; RV lead replacement d/t fractured sprint daniel lead with ICD shocks 01/03/2012 NSVT (nonsustained ventricular tachycardia) (Chronic) Nonrheumatic mitral valve insufficiency (Chronic) Atherosclerosis of [place] coronary artery of [place] heart without angina pectoris (Chronic) Ischemic cardiomyopathy (Chronic) Essential (primary) hypertension (Chronic) Hyperlipemia, mixed (Chronic) Type 2 diabetes mellitus without complications (Chronic) Medical History: Medical History (Last Updated 07/18/17 @ 15:22 by MITESH Ballard) NSVT (nonsustained ventricular tachycardia) (Chronic) I47.2 Nonrheumatic mitral valve insufficiency (Chronic) I34.0 Atherosclerosis of [place] coronary artery of [place] heart without angina pectoris (Chronic) I25.10 Ischemic cardiomyopathy (Chronic) I25.5 Essential (primary) hypertension (Chronic) I10 Hyperlipemia, mixed (Chronic) E78.2 Type 2 diabetes mellitus without complications (Chronic) E11.9 Allergies rivaroxaban [From Xarelto] Allergy (Severe, Verified 03/17/18 06:36) tongue swelling azithromycin [From Zithromax] Adverse Reaction (Severe, Verified 03/17/18 06:36) blisters metolazone Adverse Reaction (Severe, Verified 03/17/18 06:36) Rash/Itching catopril Allergy (Severe, Uncoded 03/17/18 06:36) Tongue Swelling Home Medications: Ambulatory Orders Medication Instructions Recorded Apixaban [Eliquis] 5 mg PO BID 04/11/17 Aspirin [Aspirin, Baby] 81 mg PO DAILY@0800 04/11/17 Insulin Detemir [Levemir (BKC)] 22 units SC DAILY 04/11/17 Metolazone [Zaroxolyn] 2.5 mg PO MO 04/11/17 Multivitamins,Therapeutic 1 tab PO DAILY 04/11/17 [Multivitamin] Tamsulosin HCl [Flomax] 0.4 mg PO DAILY 04/11/17 rosuvastatin 40 mg tablet 40 mg PO QHS #90 tab 07/07/17 nitroglycerin 0.4 mg sublingual 0.4 mg SUBLINGUAL Q5M PRN #25 tab 07/12/17 tablet furosemide 40 mg tablet 40 mg PO BID tab 07/19/17 potassium chloride ER 20 mEq 40 meq PO BID tab 07/19/17 tablet,extended release(part/cryst) carvedilol 12.5 mg tablet 12.5 mg PO BID #180 tab 12/22/17 isosorbide mononitrate ER 30 mg 30 mg PO DAILY #30 tab 01/19/18 tablet,extended release 24 hr Insulin Lispro [Humalog] 4 unit SC TID 03/17/18 Surgical History: Surgical History (Last Reviewed 07/19/17 @ 10:47 by Omer Rodas) History of electrophysiologic study (Chronic) Z98.890 Inducible VT- History of left heart catheterization (Chronic) Z98.890 2001; PTCA of RCA intracoronary stent 2000; @ [facility] 08/28/1999; 11/22/2016 attempted PTCA of RCA; 01/11/2007 PTCA/Stent to mid CX, prox LAD, and OM1 @ [facility]; Status post mitral valve annuloplasty (Chronic) Z98.[address] Warren saddle ring Hx of CABG (Chronic) Z95.1 11/08/2009- ERWIN to LAD, SVG to 1st CFX & 2nd CFX S/P ICD (internal cardiac defibrillator) procedure (Chronic) Z95.810 atrial lead and ICD 03/02/2007; RV lead replacement d/t fractured sprint daniel lead with ICD shocks 01/03/2012 Surgical History: coronary bypass surgery Lives: With Family Smoking Status: Former smoker - *Family History Maternal History Items: No pertinent history Review of Systems Constitutional: Reports: Fatigue, - - Dizziness. Denies: Anorexia, Chills, Fever Cardiovascular: Denies: Chest Pain Respiratory: Denies: Cough Gastrointestinal: Reports: Melena, - - Abdominal bloating. Denies: Abdominal Pain, Nausea, Vomiting Genitourinary: Denies: Dysuria Musculoskeletal: Denies: Joint Tenderness Skin: Denies: Dryness, Jaundice Psychiatric: Denies: Anxiety Hematologic/ Lymphatic: Reports: Anemia Patient Problems: Active and Suspected Problems (Last Updated 07/18/17 @ 15:22 by Jose Enrique Ervin, DIRECTOR OF AUDIOLOGY-C) Upper GI bleed (Acute) Acute blood loss anemia (Acute) Anticoagulated (Acute) Hypokalemia due to loss of potassium (Acute) - Physical Exam General: Alert, Oriented x3, Cooperative, No apparent distress HEENT: Atraumatic, PERRLA, EOMI Neck: No JVD Lungs: Normal air movement Cardiovascular: Regular rate, Regular Rhythm Abdomen: Soft, Non Tender, Non-Distended Extremities: No clubbing Skin: No rashes Musculoskeletal: No Muscle Wasting Lymphatic: No Cervical, Supraclavicular, or Inguinal Adenopathy, Cervical Adenopathy Neurological: Cranial nerves II-XII grossly intact Psych/Mental Status: Normal Affect, Appropriate Vital Signs Temp Pulse Resp BP Pulse Ox 97.8 F 62 16 107/61 100 03/17/18 09:21 03/17/18 09:28 03/17/18 09:21 03/17/18 09:21 03/17/18 09:21 Oxygen Delivery Method Room Air Weight: 146 lb 13.246 oz Body Mass Index (BMI) 23.0 Assessment/Plan All Active Problems (Last Updated 07/18/17 @ 15:22 by Jose Enrique Ervin, LILLIANAC) Upper GI bleed (Acute) Acute blood loss anemia (Acute) Anticoagulated (Acute) Hypokalemia due to loss of potassium (Acute) 77-year-old male with anemia and possible upper GI bleed 1. Patient is on Eliquis for A. fib and he has noted 3 days of black stools. I have recommended EGD today to establish the cause of bleeding. I explained that if there was a mass I would not be able to very large biopsies due to his anticoagulation. I also explained that if there was a source of bleeding I was unable to control I would have to transfer the patient to tertiary care center for any interventional radiology procedure. 2. Currently the patient's hemoglobin is 8.2 and it was much higher at the beginning of this month. The patient's potassium is 3.3 but he has been given supplementation in the emergency room. I plan to take the patient for EGD today and if I am unable to find a cause of bleeding L bowel prep him over the weekend and taken for colonoscopy on Tuesday. Please hold Eliquis at this time. 3. I explained endoscopy in detail to the patient. I explained the risks including but not limited to stroke or heart attack with anesthesia, perforation of the GI tract, bleeding, infection. I explained that any of these could necessitate further emergency surgery. The patient understands and all questions were answered sufficiently. The patient wishes to proceed with procedure. Joe Swain MD Pager: [facility] [address] [place] [address], [address] [place] [address] Office:
--- NOTE | 2018-03-17 10:40 | CASEMGMT ---
Addendum entered by Jaylin Chen 03/17/18 12:29: 1145 This RN CM back to room to complete CM assessment and pt is still out of dept at this time. Ken ALAN CM Original Note: This RN CM to room to complete CM assessment and pt is out of dept at this time. Ken ALAN CM
[2018-03-17 10:55] LABS: Bedside Glucose 303 mg/dL (70-110)
[2018-03-17] MEDS: Insulin Lispro 100 UNIT/ML INSULN.PEN SQ (11:05)
--- NOTE | 2018-03-17 12:20 | PCM.OPRPT ---
Problem List (1) Upper GI bleed Status: Acute Report of Operation Date of Procedure: 03/17/18 Pre-Operative Diagnosis: Upper GI bleed Post-Operative Diagnosis: Actively bleeding pyloric ulcer Surgery/Procedure Performed:: EGD with injection of epinephrine and clipping of bleeding ulcer Description of Procedure: The major risks and benefits associated with the procedure were explained to the patient in detail. The patient verbalized understanding and agreement with the same. The patient was then placed in the left lateral decubitus position. IV sedation was started by anesthesia. The endoscope was then advanced under direct visualization over the tongue, into the esophagus, stomach and duodenum. There was blood in the stomach as well as the antrum. When the scope was advanced into the duodenum there was a diverticulum of the duodenum that contained food. The patient had active GI bleeding at the pylorus. The ulcer was in the pyloric channel. This was injected with epinephrine on both sides and then 3 clips were placed. One clip was placed on either side of the ulcer and one clip was placed over the ulcer. I did not biopsy for H pylori as I did not want to cause more bleeding as the patient is still on Eliquis. At the end of the case there was no active bleeding from the ulcer. The scope was withdrawn and the rest of the stomach was examined. There were no other areas of bleeding in the stomach. The scope was then withdrawn into the GE junction which appeared normal. Careful examination of the remainder of the esophagus was normal. The scope was then withdrawn from the patient and the procedure terminated. It was well tolerated and there were no immediate complications. Recommendations: I recommend that the patient go on PPI and possibly Carafate. I recommend he stay on clear liquids for the next 24 hours and then he can advance his diet as tolerated.
[2018-03-17] MEDS: 0.9% NaCl Peripheral Flush Adult/Peds IV (13:23)
[2018-03-17] MEDS: Multivitamins,Therapeutic Tablet 1 TABLET PO (13:23)
[2018-03-17] MEDS: Tamsulosin HCl 0.4 MG Capsule PO (13:25)
[2018-03-17] MEDS: Insulin Lispro 100 UNIT/ML INSULN.PEN SC ×2 (13:28→16:39)
[2018-03-17 13:41] LABS: Bedside Glucose 232 mg/dL (70-110)
[2018-03-17 17:01] LABS: Bedside Glucose 181 mg/dL (70-110)
[2018-03-17] MEDS: Atorvastatin Calcium 80 MG Tablet PO (22:49)
[2018-03-17 23:00] LABS: Bedside Glucose 147 mg/dL (70-110)
[2018-03-18] VITALS (13 sets, daily range): BP systolic 97–115; BP diastolic 21–70; PULSE 60–78; RESP 16–18; TEMP 36.8–37.1; O2SAT 96–98
[2018-03-18] MEDS: 0.9% Normal Saline 1,000 ML 75 ML IV (06:10)
[2018-03-18 07:05] LABS: Bedside Glucose 210 mg/dL (70-110)
[2018-03-18 07:09] LABS: Hematocrit 19.9 % (40-54); Hemoglobin 6.4 g/dl (13.0-16.5); Mean Corp Hgb Conc 32.2 g/gl (32-36); Mean Corpuscular Hgb 30.2 pg (27.0-32.0); Mean Corpuscular Volume 93.9 fL (80-94); Mean Platelet Vol. 10.1 fl (6.2-12.0); Platelet Count 146 K/mm3 (150-450); RBC Distribution Width CV 14.9 % (11.6-14.6); RBC Distribution Width SD 47.5 fl (35.1-43.9); Red Blood Count 2.12 M/mm3 (4.6-6.2); Scan Indicated on CBC? Y/N NO; White Blood Count 6.6 K/mm3 (4.4-11.0)
[2018-03-18 07:32] LABS: Anion Gap 9 (5-15); BUN 35 mg/dL (7-18); BUN/Creat Ratio 34.7 RATIO (10-20); Calcium,Total 7.5 mg/dL (8.5-10.1); Chloride 112 mmol/L (98-107); Creatinine, Serum 1.01 mg/dL (0.70-1.30); EST Glomerular Filtration Rate 76 mL/min (>60); Est Glom Filt Rate - Afr Amer 92 mL/min (>60); Estimated Creatinine Clearance 58.17 ml/min; Glucose 200 mg/dL (74-106); Potassium 4.5 mmol/L (3.5-5.1); Sodium Level 145 mmol/L (136-145)
--- NOTE | 2018-03-18 08:40 | PCM.PN.HOSP ---
Patient Problems: Active and Suspected Problems (Last Updated 07/18/17 @ 15:22 by Jose Enrique Ervin VAULT MAKER-C) Upper GI bleed (Acute) Acute blood loss anemia (Acute) Anticoagulated (Acute) Hypokalemia due to loss of potassium (Acute) Subjective: Patient underwent EGD on 03/17/2018. An actively bleeding pyloric ulcer was found patient underwent injection of epinephrine and clipping of the bleeding artery by Dr. Swain. Hemoglobin dropped to 6.4 this a.m. and order was given for patient to be transfusing 1 unit PRBC Objective: GENERAL: cooperative HEENT: Clear conjunctiva, NECK; supple, normal thyroid, . CHEST: Clear to auscultation bilaterally, HEART: Regular S1 S2, ABDOMEN: soft, normoactive bowel sounds, RECTAL: deferred EXTREMITIES: No edema, no clubbing, no cyanosis. PATIENT CARE ASSOCIATE: Awake; no lateralizing signs. SKIN: No Rash Vitals/I&O's: Vital Signs Temp Pulse Resp BP Pulse Ox 98.2 F 78 16 99/21 L 97 03/18/18 04:43 03/18/18 07:21 03/18/18 04:43 03/18/18 04:43 03/18/18 04:43 Oxygen Delivery Method Room Air Weight: 66.6 kg Body Mass Index (BMI) 23.0 Intake and Output for Last 24 Hours 03/16/18 03/17/18 03/18/18 23:59 23:59 23:59 Intake Total 2819 / 2819 664 / 664 Balance 2819 / 2819 664 / 664 Laboratory Results 03/17/18 10:49: POC Glucose 303 H 03/17/18 13:21: POC Glucose 232 H 03/17/18 16:38: POC Glucose 181 H 03/17/18 22:45: POC Glucose 147 H 03/18/18 06:00: Sodium 145, Potassium 4.5, Chloride 112 H, Carbon Dioxide 24.0, Anion Gap 9, BUN 35 H, Creatinine 1.01, Estim Creat Clear Calc 58.17, Est GFR (MDRD) Af Amer 92, Est GFR (MDRD) Non-Af 76, BUN/Creatinine Ratio 34.7 H, Glucose 200 H, Calcium 7.5 L 03/18/18 06:00: WBC 6.6, RBC 2.12 L, Hgb 6.4 L, Hct 19.9 L, MCV 93.9, MCH 30.2, MCHC 32.2, RDW 14.9 H, RDW Differential 47.5 H, Plt Count 146 L, MPV 10.1 03/18/18 06:56: POC Glucose 210 H Current Medications Acetaminophen (Tylenol) 650 mg PO Q4H PRN PRN PRN Reason: FEVER Atorvastatin Calcium (Lipitor) 80 mg PO QHS [facility] Last Admin: 03/17/18 22:49 Dose: 80 mg Carvedilol (Coreg) 12.5 mg PO BID [facility] Last Admin: 03/17/18 22:49 Dose: Not Given Dextrose (D50w Syringe) 0 gm IV X1 PRN; Protocol PRN Reason: Hypoglycemia Glucagon () 1 mg IM .X1 PRN PRN Reason: Hypoglycemia Sodium Chloride () 1,000 mls @ 75 mls/hr IV .[id number] [facility] Last Admin: 03/18/18 06:10 Dose: 75 mls/hr Insulin Glargine (Lantus (Bk)) 22 units SC DAILY [facility] Last Admin: 03/17/18 13:24 Dose: Not Given Insulin Human Lispro (Humalog Kwikpen ([facility])) 4 unit SC TIDCM [facility] Last Admin: 03/17/18 16:39 Dose: 4 units Isosorbide Mononitrate (Imdur) 30 mg PO DAILY [facility] Last Admin: 03/17/18 12:58 Dose: Not Given Magnesium Hydroxide (Milk Of Magnesia) 30 ml PO DAILY PRN PRN Reason: Constipation [facility]) [facility] Last Admin: 03/17/18 13:23 Dose: 1 tablet Nitroglycerin (Nitrostat) 0.4 mg SUBLINGUAL Q5M PRN PRN Reason: Chest Pain Ondansetron HCl (Zofran) 4 mg IV Q8H PRN PRN PRN Reason: NAUSEA Potassium Chloride (K-Dur) [facility] Last Admin: 03/17/18 16:39 Dose: 40 meq Sodium Chloride () 5 - 30 ml IV UD PRN PRN Reason: SALINE FLUSH Last Admin: 03/17/18 13:23 Dose: 10 ml Tamsulosin HCl (Flomax) 0.4 mg PO DAILY [facility] Last Admin: 03/17/18 13:25 Dose: 0.4 mg Zolpidem Tartrate (Ambien (Generic)) 5 mg PO QHS PRN PRN PRN Reason: SLEEP Medical Necessity - Tobacco Use Smoking Status: Former smoker Assessment/Plan All Active Problems (Last Updated 07/18/17 @ 15:22 by Jose Enrique Ervin, VAULT MAKER-C) Upper GI bleed (Acute) Acute blood loss anemia (Acute) Anticoagulated (Acute) Hypokalemia due to loss of potassium (Acute) Patient is a 77-year-old gentleman with multiple comorbidities presented with numbness generalized weakness and lightheadedness found to be anemic with a positive guaiac stool on admission 1. Symptomatic anemia secondary to acute blood loss anemia from a bleeding pyloric ulcer. Patient has been admitted to a monitored bed he was typed and crossmatched prior to be admitted consult was placed to Dr. Swain. Patient underwent EGD on 03/17/2018. An actively bleeding pyloric ulcer was found patient underwent injection of epinephrine and clipping of the bleeding artery by Dr. Swain. Hemoglobin dropped to 6.4 this a.m. and order was given for patient to be transfusing 1 unit PRBC 2. Paroxysmal A. fib and history of nonsustained VT rate controlled patient is on systemic anticoagulation with Eliquis 3. CAD with previous CABG and PTCA involving patient RCA and mid circumflex LAD and OM1 4. History of ischemic cardiomyopathy status post AICD placement 5. History of mitral valve annuloplasty with 30mm [facility] [place] saddle ring 3 diabetes mellitus type 2 uncontrolled with complications including hypoglycemia patient is a long-acting insulin did continue with plans for dose adjustment as needed in addition to Accu-Cheks before meals and at bedtime with sliding scale insulin 7. Hypertension-blood pressure controlled, home medications continued with dose adjustment as needed 8. Dyslipidemia-patient is on statin therapy, continued at home dose 9. BPH patient is on Flomax 10. DVT prophylaxis patient was on Eliquis prior to his admission which is being held in view of his suspected upper GI bleed Code Visit Inpatient E&M: [id number] [place] [id number]
--- NOTE | 2018-03-18 08:50 | PCM.PN.SRG ---
Patient Problems: Active and Suspected Problems (Last Updated 07/18/17 @ 15:22 by Jose Enrique Ervin, QUARTZ ORIENTATOR-C) Upper GI bleed (Acute) Acute blood loss anemia (Acute) Anticoagulated (Acute) Hypokalemia due to loss of potassium (Acute) Subjective: Patient is tolerating clear liquid diet with no abdominal pain. He has no nausea or vomiting. He says he is not having any bloating. He did have a black bowel movement last night. - Physical Exam General: Alert, Oriented x3, Cooperative Neck: No JVD Lungs: Normal air movement Cardiovascular: Regular rate, Regular Rhythm Abdomen: Soft, Non Tender, Non-Distended Vital Signs Temp Pulse Resp BP Pulse Ox 98.2 F 78 16 99/21 L 97 03/18/18 04:43 03/18/18 07:21 03/18/18 04:43 03/18/18 04:43 03/18/18 04:43 Oxygen Delivery Method Room Air Weight: 146 lb 13.246 oz Body Mass Index (BMI) 23.0 Intake and Output for Last 24 Hours 03/16/18 03/17/18 03/18/18 23:59 23:59 23:59 Intake Total 2819 / 2819 664 / 664 Balance 2819 / 2819 664 / 664 Laboratory Tests Past 24 Hrs 03/18/18 03/18/18 06:00 06:00 WBC 6.6 RBC 2.12 L Hgb 6.4 L Hct 19.9 L MCV 93.9 MCH 30.2 MCHC 32.2 RDW 14.9 H RDW Differential 47.5 H Plt Count 146 L MPV 10.1 Sodium 145 Potassium 4.5 Chloride 112 H Carbon Dioxide 24.0 Anion Gap 9 BUN 35 H Creatinine 1.01 Estim Creat Clear Calc 58.17 Est GFR (MDRD) Af Amer 92 Est GFR (MDRD) Non-Af 76 BUN/Creatinine Ratio 34.7 H Glucose 200 H Calcium 7.5 L POC Glucose 03/18/18 03/17/18 03/17/18 06:56 22:45 16:38 POC Glucose 210 H 147 H 181 H 03/17/18 03/17/18 13:21 10:49 POC Glucose 232 H 303 H Medical Necessity - Tobacco Use Smoking Status: Former smoker Assessment/Plan All Active Problems (Last Updated 12/18/17 @ 15:22 by Jose Enrique H Roof, QUARTZ ORIENTATOR-C) Upper GI bleed (Acute) Acute blood loss anemia (Acute) Anticoagulated (Acute) Hypokalemia due to loss of potassium (Acute) 77-year-old male with bleeding pyloric ulcer 1. The patient's hemoglobin did drop. This may be hemodilution but he is hypotensive. I would recommend transfusing blood and recheck hemoglobin this evening and in the morning. 2. Continue clear liquids in case the patient needs emergent scope. If his hemoglobin continues to drop in the morning I will repeat scope tomorrow. Continue PPI. Joe Swain MD Pager: [facility] [address] [place] [address], [address] [place] [address] Office:
[2018-03-18] MEDS: Insulin Lispro 100 UNIT/ML INSULN.PEN SC ×3 (09:22→17:37)
[2018-03-18] MEDS: Multivitamins,Therapeutic Tablet 1 TABLET PO (09:23)
[2018-03-18] MEDS: Carvedilol 12.5 MG Tablet PO ×2 (09:23→21:48)
[2018-03-18] MEDS: Tamsulosin HCl 0.4 MG Capsule PO (09:23)
[2018-03-18] MEDS: Isosorbide Mononitrate 30 MG Tablet PO (09:24)
--- NOTE | 2018-03-18 11:07 | CM.UR ---
met face to face with patient. Introduced myself and explained my role. Denied any anticipated needs at this time. Patient is to receive blood transfusion today. Case mgmt will remain available should any needs arise. Hipolito Lagunas RN, CCM.
[2018-03-18 13:21] LABS: Bedside Glucose 345 mg/dL (70-110)
[2018-03-18 16:21] LABS: Hematocrit 21.9 % (40-54); Hemoglobin 7.3 g/dl (13.0-16.5)
[2018-03-18 16:50] LABS: Bedside Glucose 196 mg/dL (70-110)
[2018-03-18] MEDS: 0.9% NaCl Peripheral Flush Adult/Peds IV (17:36)
[2018-03-18] MEDS: Atorvastatin Calcium 80 MG Tablet PO (21:48)
[2018-03-19] VITALS (11 sets, daily range): BP systolic 108–123; BP diastolic 48–58; PULSE 16–69; RESP 15–58; TEMP 36.8–37.1; O2SAT 96–100
[2018-03-19] MEDS: 0.9% Normal Saline 1,000 ML 75 ML IV (02:18)
[2018-03-19 06:33] LABS: Hemoglobin 7.1 g/dl (13.0-16.5); Mean Corp Hgb Conc 32.3 g/gl (32-36); Mean Corpuscular Hgb 30.6 pg (27.0-32.0); Mean Corpuscular Volume 94.8 fL (80-94); Mean Platelet Vol. 9.7 fl (6.2-12.0); Platelet Count 173 K/mm3 (150-450); RBC Distribution Width CV 15.3 % (11.6-14.6); RBC Distribution Width SD 48.8 fl (35.1-43.9); Red Blood Count 2.32 M/mm3 (4.6-6.2); White Blood Count 5.5 K/mm3 (4.4-11.0)
[2018-03-19 06:44] LABS: Scan Indicated on CBC? Y/N NO
--- NOTE | 2018-03-19 07:27 | PCM.PN.HOSP ---
Patient Problems: Active and Suspected Problems (Last Updated 07/18/17 @ 15:22 by Jose Enrique Ervin PRODUCT ASSEMBLER-C) Upper GI bleed (Acute) Acute blood loss anemia (Acute) Anticoagulated (Acute) Hypokalemia due to loss of potassium (Acute) Subjective: Patient seen hemoglobin dropped to 7.1. His diet was advanced to 1800 ADA diet. Plans for patient to be transfused with additional 1 unit PRBC. Carafate added to his therapy. Objective: GENERAL: cooperative HEENT: Clear conjunctiva, NECK; supple, normal thyroid, . CHEST: Clear to auscultation bilaterally, HEART: Regular S1 S2, ABDOMEN: soft, normoactive bowel sounds, RECTAL: deferred EXTREMITIES: No edema, no clubbing, no cyanosis. AIR GUN OPERATOR: Awake; no lateralizing signs. SKIN: No Rash Vitals/I&O's: Vital Signs Temp Pulse Resp BP Pulse Ox 98.4 F 68 15 110/58 L 97 03/19/18 03:06 03/19/18 03:06 03/19/18 03:06 03/19/18 03:06 03/19/18 03:06 Oxygen Delivery Method Room Air Weight: 66.6 kg Body Mass Index (BMI) 23.0 Intake and Output for Last 24 Hours 03/17/18 03/18/18 03/19/18 23:59 23:59 23:59 Intake Total 2819 / 2819 2370 / 2370 1085 / 1085 Balance 2819 / 2819 2370 / 2370 1085 / 1085 Laboratory Results 03/18/18 06:00: Sodium 145, Potassium 4.5, Chloride 112 H, Carbon Dioxide 24.0, Anion Gap 9, BUN 35 H, Creatinine 1.01, Estim Creat Clear Calc 58.17, Est GFR (MDRD) Af Amer 92, Est GFR (MDRD) Non-Af 76, BUN/Creatinine Ratio 34.7 H, Glucose 200 H, Calcium 7.5 L 03/18/18 13:15: POC Glucose 345 H 03/18/18 16:13: Hgb 7.3 L, Hct 21.9 L 03/18/18 16:47: POC Glucose 196 H 03/19/18 05:20: WBC 5.5, RBC 2.32 L, Hgb 7.1 L, Hct 22.0 L, MCV 94.8 H, MCH 30.6, MCHC 32.3, RDW 15.3 H, RDW Differential 48.8 H, Plt Count 173, MPV 9.7 Current Medications Acetaminophen (Tylenol) 650 mg PO Q4H PRN PRN PRN Reason: FEVER Atorvastatin Calcium (Lipitor) 80 mg PO QHS [facility] Last Admin: 03/18/18 21:48 Dose: 80 mg Carvedilol (Coreg) 12.5 mg PO BID [facility] Last Admin: 03/18/18 21:48 Dose: 12.5 mg Dextrose (D50w Syringe) 0 gm IV X1 PRN; Protocol PRN Reason: Hypoglycemia Glucagon () 1 mg IM .X1 PRN PRN Reason: Hypoglycemia Sodium Chloride () 1,000 mls @ 75 mls/hr IV .[id number] [facility] Last Admin: 03/19/18 02:18 Dose: 75 mls/hr Pantoprazole Sodium 40 mg/ (Sodium Chloride) 110 mls @ 330 mls/hr IV Q12 [facility] Last Admin: 03/18/18 21:53 Dose: 330 mls/hr Insulin Glargine (Lantus (Bkc)) 22 units SC DAILY [facility] Last Admin: 03/18/18 09:24 Dose: 22 units Insulin Human Lispro (Humalog Kwikpen (Bkc)) 4 unit SC TIDCM [facility] Last Admin: 03/18/18 17:37 Dose: 4 units Isosorbide Mononitrate (Imdur) 30 mg PO DAILY [facility] Last Admin: 03/18/18 09:24 Dose: 30 mg Magnesium Hydroxide (Milk Of Magnesia) 30 ml PO DAILY PRN PRN Reason: Constipation [facility]) [facility] Last Admin: 03/18/18 09:23 Dose: 1 tablet Nitroglycerin (Nitrostat) 0.4 mg SUBLINGUAL Q5M PRN PRN Reason: Chest Pain Ondansetron HCl (Zofran) 4 mg IV Q8H PRN PRN PRN Reason: NAUSEA Potassium Chloride (K-Dur) [facility] Last Admin: 03/18/18 17:36 Dose: 40 meq Sodium Chloride () 5 - 30 ml IV UD PRN PRN Reason: SALINE FLUSH Last Admin: 03/18/18 17:36 Dose: 10 ml Tamsulosin HCl (Flomax) 0.4 mg PO DAILY [facility] Last Admin: 03/18/18 09:23 Dose: 0.4 mg Zolpidem Tartrate (Ambien (Generic)) 5 mg PO QHS PRN PRN PRN Reason: SLEEP Medical Necessity - Tobacco Use Smoking Status: Former smoker Assessment/Plan All Active Problems (Last Updated 07/18/17 @ 15:22 by Jose Enrique Ervin, PRODUCT ASSEMBLER-C) Upper GI bleed (Acute) Acute blood loss anemia (Acute) Anticoagulated (Acute) Hypokalemia due to loss of potassium (Acute) Patient is a 77-year-old gentleman with multiple comorbidities presented with numbness generalized weakness and lightheadedness found to be anemic with a positive guaiac stool on admission 1. Symptomatic anemia secondary to acute blood loss anemia from a bleeding pyloric ulcer. Patient has been admitted to a monitored bed he was typed and crossmatched prior to be admitted consult was placed to Dr. Swain. Patient underwent EGD on 03/17/2018. An actively bleeding pyloric ulcer was found patient underwent injection of epinephrine and clipping of the bleeding artery by Dr. Swain. Hemoglobin dropped to 6.4 on 03/18/2018. Hemoglobin as of 03/19/2018 was 7.1 and an additional unit was also ordered 2. Paroxysmal A. fib and history of nonsustained VT rate controlled patient is on systemic anticoagulation with Eliquis which was held on admission in view of his bleeding pyloric ulcer 3. CAD with previous CABG and PTCA involving patient RCA and mid circumflex LAD and OM1 4. History of ischemic cardiomyopathy status post AICD placement 5. History of mitral valve annuloplasty with 30mm [facility] [place] saddle ring 6. Diabetes mellitus type 2 uncontrolled with complications including hypoglycemia patient is a long-acting insulin did continue with plans for dose adjustment as needed in addition to Accu-Cheks before meals and at bedtime with sliding scale insulin 7. Hypertension-blood pressure controlled, home medications continued with dose adjustment as needed 8. Dyslipidemia-patient is on statin therapy, continued at home dose 9. BPH patient is on Flomax 10. DVT prophylaxis patient was on Eliquis prior to his admission which is being held in view of his suspected upper GI bleed Code Visit Inpatient E&M: [id number] [place] [address]
[2018-03-19] MEDS: Insulin Lispro 100 UNIT/ML INSULN.PEN SC ×3 (08:16→16:49)
[2018-03-19] MEDS: Multivitamins,Therapeutic Tablet 1 TABLET PO (08:17)
--- NOTE | 2018-03-19 09:02 | PCM.PN.SRG ---
Patient Problems: Active and Suspected Problems (Last Updated 07/18/17 @ 15:22 by LILLIANA BallardC) Upper GI bleed (Acute) Acute blood loss anemia (Acute) Anticoagulated (Acute) Hypokalemia due to loss of potassium (Acute) Subjective: Patient is tolerating clear liquids no abdominal pain. He has no nausea or vomiting. - Physical Exam General: Alert, Cooperative Oral: Moist Mucosa Lungs: Normal air movement Cardiovascular: Regular rate, Regular Rhythm Abdomen: Soft, Non Tender, Non-Distended Vital Signs Temp Pulse Resp BP Pulse Ox 98.7 F 69 16 108/55 L 96 03/19/18 08:01 03/19/18 08:01 03/19/18 08:01 03/19/18 08:01 03/19/18 08:01 Oxygen Delivery Method Room Air Weight: 146 lb 13.246 oz Body Mass Index (BMI) 23.0 Intake and Output for Last 24 Hours 03/17/18 03/18/18 03/19/18 23:59 23:59 23:59 Intake Total 2819 / 2819 2370 / 2370 1085 / 1085 Balance 2819 / 2819 2370 / 2370 1085 / 1085 Laboratory Tests Past 24 Hrs 03/18/18 03/19/18 16:13 05:20 WBC 5.5 RBC 2.32 L Hgb 7.3 L 7.1 L Hct 21.9 L 22.0 L MCV 94.8 H MCH 30.6 MCHC 32.3 RDW 15.3 H RDW Differential 48.8 H Plt Count 173 MPV 9.7 POC Glucose 03/18/18 03/18/18 16:47 13:15 POC Glucose 196 H 345 H Medical Necessity - Tobacco Use Smoking Status: Former smoker Assessment/Plan All Active Problems (Last Updated 07/18/17 @ 15:22 by MITESH Ballard) Upper GI bleed (Acute) Acute blood loss anemia (Acute) Anticoagulated (Acute) Hypokalemia due to loss of potassium (Acute) 77-year-old male with bleeding pyloric ulcer 1. Patient is on PPI and I will start Carafate. The patient's hemoglobin has been stable although low for the last 24 hours. He shows no signs of active bleeding. I will start him on a regular diet. 2. Patient is being transfused by the primary service. Recheck hemoglobin in the morning. If the patient's hemoglobin is stable and he is tolerating a diet he can be discharged home tomorrow. I would like him to follow-up with me and continue oral PPI and Carafate until follow-up. I will plan on repeating scope in a few months to ensure healing of the ulcer. I would also recommend holding his blood thinner. Joe Swain MD Pager: [facility] [address] [place] [address] [address] [place] [phone] Office:
[2018-03-19] MEDS: Isosorbide Mononitrate 30 MG Tablet PO (09:41)
[2018-03-19] MEDS: Carvedilol 12.5 MG Tablet PO ×2 (09:41→22:08)
[2018-03-19] MEDS: Tamsulosin HCl 0.4 MG Capsule PO (09:41)
[2018-03-19] MEDS: Sucralfate 1 GM Tablet PO ×3 (11:46→22:08)
[2018-03-19 12:00] LABS: Bedside Glucose 372 mg/dL (70-110)
[2018-03-19 12:00] LABS: Bedside Glucose 179 mg/dL (70-110)
[2018-03-19 17:05] LABS: Bedside Glucose 182 mg/dL (70-110)
[2018-03-19] MEDS: 0.9% NaCl Peripheral Flush Adult/Peds IV (22:08)
[2018-03-19] MEDS: Atorvastatin Calcium 80 MG Tablet PO (22:08)
[2018-03-19] MEDS: Zolpidem Tartrate 5 MG Tablet PO (22:19)
[2018-03-19 22:30] LABS: Bedside Glucose 224 mg/dL (70-110)
[2018-03-20] VITALS: BP 106/58; PULSE 60; RESP 16; TEMP 37.1; O2SAT 95
[2018-03-20 03:00] VITALS: PULSE 69
[2018-03-20 05:58] VITALS: BP 113/68; PULSE 71; RESP 16; TEMP 37; O2SAT 95
[2018-03-20] MEDS: Sucralfate 1 GM Tablet PO ×2 (06:06→11:14)
[2018-03-20 06:29] LABS: Hematocrit 27.3 % (40-54); Mean Corpuscular Volume 94.1 fL (80-94); Mean Platelet Vol. 9.2 fl (6.2-12.0); Platelet Count 199 K/mm3 (150-450); RBC Distribution Width CV 15.6 % (11.6-14.6); RBC Distribution Width SD 49.6 fl (35.1-43.9); White Blood Count 6.4 K/mm3 (4.4-11.0)
[2018-03-20 06:38] LABS: Scan Indicated on CBC? Y/N NO
[2018-03-20 06:48] LABS: Anion Gap 5 (5-15); BUN 14 mg/dL (7-18); BUN/Creat Ratio 15.1 RATIO (10-20); Calcium,Total 8.4 mg/dL (8.5-10.1); Chloride 110 mmol/L (98-107); Creatinine, Serum 0.93 mg/dL (0.70-1.30); EST Glomerular Filtration Rate 84 mL/min (>60); Est Glom Filt Rate - Afr Amer 102 mL/min (>60); Estimated Creatinine Clearance 63.18 ml/min; Glucose 158 mg/dL (74-106); Magnesium 2.2 mg/dL (1.6-2.6); Potassium 4.6 mmol/L (3.5-5.1); Sodium Level 140 mmol/L (136-145)
[2018-03-20 06:59] VITALS: PULSE 68
[2018-03-20 07:05] LABS: Bedside Glucose 157 mg/dL (70-110)
[2018-03-20] MEDS: Insulin Lispro 100 UNIT/ML INSULN.PEN SC ×2 (08:27→11:36)
[2018-03-20] MEDS: Multivitamins,Therapeutic Tablet 1 TABLET PO (08:28)
--- NOTE | 2018-03-20 08:51 | PCM.PN.SRG ---
Patient Problems: Active and Suspected Problems (Last Updated 07/18/17 @ 15:22 by Jose Enrique Ervin NP-C) Upper GI bleed (Acute) Acute blood loss anemia (Acute) Anticoagulated (Acute) Hypokalemia due to loss of potassium (Acute) Subjective: Patient is doing well this morning with no abdominal pain. He is tolerating a regular diet. - Physical Exam General: Alert, Oriented x3, Cooperative Lungs: Normal air movement Cardiovascular: Regular rate, Regular Rhythm Abdomen: Soft, Non Tender, Non-Distended Vital Signs Temp Pulse Resp BP Pulse Ox 98.6 F 71 16 113/68 95 03/20/18 05:58 03/20/18 05:58 03/20/18 05:58 03/20/18 05:58 03/20/18 05:58 Oxygen Delivery Method Room Air Weight: 146 lb 13.246 oz Body Mass Index (BMI) 23.0 Intake and Output for Last 24 Hours 03/18/18 03/19/18 03/20/18 23:59 23:59 23:59 Intake Total 2370 / 2370 2247 / 2247 100 / 100 Balance 2370 / 2370 2247 / 2247 100 / 100 Laboratory Tests Past 24 Hrs 03/20/18 03/20/18 03/20/18 05:45 05:45 08:05 WBC 6.4 RBC 2.90 L Hgb 9.0 L Hct 27.3 L MCV 94.1 H MCH 31.0 MCHC 33.0 RDW 15.6 H RDW Differential 49.6 H Plt Count 199 MPV 9.2 Sodium 140 Potassium 4.6 Chloride 110 H Carbon Dioxide 25.0 Anion Gap 5 BUN 14 Creatinine 0.93 Estim Creat Clear Calc 63.18 Est GFR (MDRD) Af Amer 102 Est GFR (MDRD) Non-Af 84 BUN/Creatinine Ratio 15.1 Glucose 158 H Calcium 8.4 L Magnesium 2.2 H. pylori IgG Antibody Pending POC Glucose 03/20/18 03/19/18 03/19/18 06:57 22:23 16:46 POC Glucose 157 H 224 H 182 H 03/19/18 03/19/18 11:41 08:07 POC Glucose 372 H 179 H Medical Necessity - Tobacco Use Smoking Status: Former smoker Assessment/Plan All Active Problems (Last Updated 07/18/17 @ 15:22 by Jose Enrique Ervin NP-C) Upper GI bleed (Acute) Acute blood loss anemia (Acute) Anticoagulated (Acute) Hypokalemia due to loss of potassium (Acute) 77-year-old male with GI bleed and pyloric ulcer 1. The patient is tolerating a regular diet. His hemoglobin has responded to transfusions. His vitals are stable. He has no abdominal pain. 2. From my standpoint he is okay for discharge. I would like him to go home on an oral PPI as well as Carafate. I would like him to follow-up with me in 2-3 weeks and I will plan for a repeat EGD in 6 weeks to ensure healing as well as a colonoscopy at that time as he has never had one. Joe Swain MD Pager: [facility] [address] [place] [address], [address] [place] [phone] Office:
--- NOTE | 2018-03-20 09:34 | PCM.DC ---
- Discharge Diagnoses Current Active Problems: Current Active and Chronic Problems (Last Updated 07/18/17 @ 15:22 by MITSEH Ballard) Upper GI bleed (Acute) Acute blood loss anemia (Acute) Anticoagulated (Acute) Hypokalemia due to loss of potassium (Acute) You will use the following diet at home:: Calorie/Carbohydrate Controlled (specify 1200, 1400, etc) Your food should be the consistency of: Regular Your liquids should be the consistency of: Regular/Thin Discharge Activity: Return to Normal Activity Call your doctor if you observe: Dizziness, Fainting spells Allergies/Adverse Reactions: Allergies rivaroxaban [From Xarelto] Allergy (Severe, Verified 03/17/18 06:36) tongue swelling azithromycin [From Zithromax] Adverse Reaction (Severe, Verified 03/17/18 06:36) blisters metolazone Adverse Reaction (Severe, Verified 03/17/18 06:36) Rash/Itching catopril Allergy (Severe, Uncoded 03/17/18 06:36) Tongue Swelling Medications to take at Discharge Aspirin [Aspirin, Baby] 81 mg PO DAILY@0800 04/11/17 Insulin Detemir [Levemir FlexPen] 22 units SC DAILY 04/11/17 Metolazone [Zaroxolyn] 2.5 mg PO MO 04/11/17 Multivitamins,Therapeutic [Multivitamin] 1 tab PO DAILY 04/11/17 Tamsulosin HCl [Flomax] 0.4 mg PO DAILY 04/11/17 rosuvastatin 40 mg tablet 40 mg PO QHS #90 tab 07/07/17 nitroglycerin 0.4 mg sublingual tablet 0.4 mg SUBLINGUAL Q5M PRN #25 tab 07/12/17 furosemide 40 mg tablet 40 mg PO BID tab 07/19/17 potassium chloride ER 20 mEq tablet,extended release(part/cryst) 40 meq PO BID tab 07/19/17 carvedilol 12.5 mg tablet 12.5 mg PO BID #180 tab 12/22/17 isosorbide mononitrate ER 30 mg tablet,extended release 24 hr 30 mg PO DAILY #30 tab 01/19/18 Insulin Lispro [Humalog] 8 unit SC TID 03/17/18 Omeprazole 40 mg PO DAILY #60 nadeem. 03/20/18 Sucralfate [Carafate] 1 gm PO 1HR_ACHS #120 tab 03/20/18 The following prescriptions were given: Omeprazole 40 mg PO DAILY #60 capsule. Sucralfate [Carafate] 1 gm PO 1HR_ACHS #120 tab Primary Care Physician: Jose Enrique Finney MD [Primary Care Provider] - Test Results: Test results from this visit will be discussed in further detail at your follow-up appointment, if applicable. Please Follow Up With: Joe Swain MD When: 2-3 weeks
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
[2018-03-20 10:59] VITALS: PULSE 73
[2018-03-20 11:05] VITALS: BP 142/81; PULSE 68; RESP 18; TEMP 36.8; O2SAT 98
[2018-03-20] MEDS: Carvedilol 12.5 MG Tablet PO (11:14)
[2018-03-20] MEDS: Tamsulosin HCl 0.4 MG Capsule PO (11:14)
[2018-03-20] MEDS: Isosorbide Mononitrate 30 MG Tablet PO (11:14)
[2018-03-20 11:56] LABS: Bedside Glucose 263 mg/dL (70-110)
[2018-03-21 09:59] LABS: H. Pylori Antibody (IgG) 0.58 (0.00-0.79)
--- NOTE | 2018-03-22 17:11 | CASEMGMT ---
DAYANNA WELCH Discharge Follow-Up Phone Call: KEILY: Zulema Strata 3 Call Date: 03/22/18 Discharge Date: 03/20/18 Adm Dx: GIB DAYANNA WELCH spoke to pt re: how he has been feeling since he was discharged from the hospital. Pt states I'm not doing bad. Pt reports he was able to picker and sorter load and unload his prescriptions. Pt voices concern of what he should do if he should have any reaction to his medication. DAYANNA WELCH advised pt to notify his PCP or go to the hospital if needed. Pt states he was planning on resuming his Aspirin tomorrow 03/[address] Cabezas but was wondering if he is also to resume his Eliquis. DAYANNA WELCH reviewed discharge instructions and Eliquis is not listed to resume, but discharge summary states he will be able to restart both Aspirin and Eliquis as an out-patient. DAYANNA WELCH called Dr Cabezas who stated pt is to hold both Eliquis and ASA and not to resume either of them until he has his blood work done and sees Dr Vargas @ his follow up appt and that Dr Vargas is to decide about resumption of these meds. Pt made aware of this and voices understanding. Pt reports he has not made an appt w/Dr Swain yet but is planning to and DAYANNA WELCH gave pt Dr Swain's phone number per pt request. Pt denies having any other questions at this time. Pt given DAYANNA WELCH's phone number and instructed him to call with any further questions. Pt states he does not have any suggestions for [facility], stating, Everyone up there is so great. DAYANNA WELCH thanked pt for choosing [facility]. Robert MOTTA RN, CM
== END 2018-03-20 12:04 | disposition home or self-care (01) | DRG 378 ==
LOC: ED 08:32 → PCU 08:35
PROVIDERS: Surgery; Admitting Provider Internal Medicine; Emergency Provider Emergency Medicine; Family Provider Family Medicine; PCP Family Medicine; Visit Provider Family Medicine
PROC: 0DJ08ZZ Inspection of Upper Intestinal Tract, Via Natural or Artificial Opening Endoscopic (ICD-10-PCS; CPT 43235; principal; 2018-03-17 11:25)
DX: K25.4 Chronic or unspecified gastric ulcer with hemorrhage (principal); D62 Acute posthemorrhagic anemia; Z95.5 Presence of coronary angioplasty implant and graft; Z95.810 Presence of automatic (implantable) cardiac defibrillator; Z87.891 Personal history of nicotine dependence; Z95.1 Presence of aortocoronary bypass graft; E87.6 Hypokalemia; I25.10 Atherosclerotic heart disease of native coronary artery without angina pectoris; Z79.4 Long term (current) use of insulin; I25.5 Ischemic cardiomyopathy; E11.65 Type 2 diabetes mellitus with hyperglycemia; N40.0 Benign prostatic hyperplasia without lower urinary tract symptoms; Z79.899 Other long term (current) drug therapy; I48.0 Paroxysmal atrial fibrillation; Z79.01 Long term (current) use of 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s; I10 Essential (primary) hypertension
CPT/HCPCS: 36415; 70450; 71046; 80048; 81001; 82274; 82962; 83735; 84484; 85014; 85018; 85025; 85027; 86677; 86850; 86900; 86920; 93005; 99285; J7030; J7040; P9016; A4216; J3490

== ENCOUNTER → 2018-03-23 08:24 | Outpatient (CLI) | payer MEDICARE, BC, SELFPAY ==
[2018-03-23 09:31] LABS: Absolute Lymphocyte Count 1.28 X10^3/ul (0.83-4.51); Basophil# 0.02 X10^3/uL; Basophil% 0.3 % (0-1); Eosinophil# 0.16 X10^3/uL; Eosinophils% 2.3 % (0-5); Hematocrit 30.2 % (40-54); Hemoglobin 9.9 g/dl (13.0-16.5); Lymphocyte # 1.28 X10^3/ul (4.0); Mean Corp Hgb Conc 32.8 g/gl (32-36); Mean Corpuscular Hgb 30.3 pg (27.0-32.0); Mean Corpuscular Volume 92.4 fL (80-94); Mean Platelet Vol. 9.1 fl (6.2-12.0); Monocyte# 0.64 X10^3/uL; Neutrophil # 4.98 X10^3/uL (2.7-7.7); Neutrophil % 70.1 % (47-70); Platelet Count 252 K/mm3 (150-450); RBC Distribution Width SD 48.7 fl (35.1-43.9); Red Blood Count 3.27 M/mm3 (4.6-6.2); White Blood Count 7.1 K/mm3 (4.4-11.0)
[2018-03-23 09:35] LABS: POSITIVE COUNT NO; POSITIVE DIFFERENTIAL NO; POSITIVE MORPHOLOGY NO
== END ==
PROVIDERS: Family Provider Family Medicine; PCP Family Medicine; Visit Provider Family Medicine
DX: K92.2 Gastrointestinal hemorrhage, unspecified (principal)
CPT/HCPCS: 36415; 85025

== ENCOUNTER → 2018-03-28 11:47 | Outpatient (CLI) | payer MEDICARE, BC, SELFPAY ==
[2018-03-28 13:57] LABS: Absolute Lymphocyte Count 1.21 X10^3/ul (0.83-4.51); Absolute Neutrophil Count 4.5 X10^3/uL (2.0-7.7); Basophil# 0.02 X10^3/uL; Basophil% 0.3 % (0-1); Eosinophil# 0.11 X10^3/uL; Eosinophils% 1.7 % (0-5); Hematocrit 29.1 % (40-54); Hemoglobin 9.2 g/dl (13.0-16.5); Lymphocyte # 1.21 X10^3/ul (4.0); Lymphocyte % 18.3 % (19-41); Mean Corp Hgb Conc 31.6 g/gl (32-36); Mean Corpuscular Hgb 29.2 pg (27.0-32.0); Mean Corpuscular Volume 92.4 fL (80-94); Mean Platelet Vol. 8.9 fl (6.2-12.0); Monocyte# 0.74 X10^3/uL; Monocyte% 11.2 % (0-10); Neutrophil # 4.53 X10^3/uL (2.7-7.7); Neutrophil % 68.5 % (47-70); POSITIVE COUNT NO; POSITIVE DIFFERENTIAL NO; POSITIVE MORPHOLOGY NO; Platelet Count 297 K/mm3 (150-450); RBC Distribution Width CV 14.9 % (11.6-14.6); RBC Distribution Width SD 49.5 fl (35.1-43.9); Red Blood Count 3.15 M/mm3 (4.6-6.2); White Blood Count 6.6 K/mm3 (4.4-11.0)
[2018-03-28 14:14] LABS: Ferritin 20 ng/mL (26-388); Iron 27 ug/dL (65-175); Iron Binding Capacity,Total 389 ug/dL (250-450); PERCENT IRON SATURATION 6.9 % (15.0-55.0)
== END ==
PROVIDERS: Family Provider Family Medicine; PCP Family Medicine; Visit Provider Family Medicine
DX: D50.0 Iron deficiency anemia secondary to blood loss (chronic) (principal)
CPT/HCPCS: 36415; 82728; 83540; 83550; 85025

== ENCOUNTER → 2018-04-10 15:01 | Outpatient (CLI) | payer MEDICARE, BC, SELFPAY ==
[2018-04-10 15:55] LABS: Hemoglobin 8.9 g/dl (13.0-16.5); Mean Corp Hgb Conc 31.8 g/gl (32-36); Mean Corpuscular Hgb 28.3 pg (27.0-32.0); Mean Corpuscular Volume 89.2 fL (80-94); Mean Platelet Vol. 9.2 fl (6.2-12.0); Platelet Count 265 K/mm3 (150-450); RBC Distribution Width CV 15.1 % (11.6-14.6); RBC Distribution Width SD 47.9 fl (35.1-43.9); Red Blood Count 3.14 M/mm3 (4.6-6.2)
[2018-04-10 16:13] LABS: Scan Indicated on CBC? Y/N NO
== END ==
PROVIDERS: Family Provider Family Medicine; PCP Family Medicine; Visit Provider Surgery
DX: K25.0 Acute gastric ulcer with hemorrhage (principal)
CPT/HCPCS: 36415; 85027

== ENCOUNTER 2018-04-25 07:59 | Day surgery (SDC) | payer MEDICARE, BC, SELFPAY ==
[2018-04-25] VITALS (7 sets, daily range): BP systolic 92–136; BP diastolic 66–84; PULSE 62–72; RESP 16–18; TEMP 36.2–36.6; O2SAT 94–99; BMI 23.1
[2018-04-25 09:01] LABS: Bedside Glucose 196 mg/dL (70-110)
--- NOTE | 2018-04-25 09:55 | OP.ENDO_ITS ---
Patient Name: Baljeet Hogan Procedure Date: 04/25/2018 9:42 AM Date of : 1940 Age: 77 Procedure: Upper GI endoscopy Indications: Follow-up of acute gastric ulcer with hemorrhage Providers: Joe Swain MD Medicines: Monitored Anesthesia Care Complications: No immediate complications. Procedure: Pre-Anesthesia Assessment: - Prior to the procedure, a History and Physical was performed, and patient medications and allergies were reviewed. The patient's tolerance of previous anesthesia was also reviewed. The risks and benefits of the procedure and the sedation options and risks were discussed with the patient. All questions were answered, and informed consent was obtained. Prior Anticoagulants: The patient has taken Eliquis (apixaban), last dose was more than 28 days prior to procedure. After reviewing the risks and benefits, the patient was deemed in satisfactory condition to undergo the procedure. After obtaining informed consent, the endoscope was passed under direct vision. Throughout the procedure, the patient's blood pressure, pulse, and oxygen saturations were monitored continuously. The gastroscope was introduced through the mouth, and advanced to the antrum of the stomach. The upper GI endoscopy was accomplished without difficulty. The patient tolerated the procedure well. Scope In: 9:43:40 AM Scope Out: 9:46:01 AM Total Procedure Duration Time 0 hours 2 minutes 21 seconds Findings: The esophagus was normal. One non-bleeding gastric ulcer with no stigmata of bleeding was found at the pylorus. The clips were still on it with no signs of bleeding. The lesion was less than one mm in largest dimension. The cardia and gastric fundus were normal on retroflexion. Impression: - Normal esophagus. - Non-bleeding gastric ulcer with no stigmata of bleeding. - No specimens collected. Recommendation: - Discharge patient to home. - Resume previous diet. - Resume 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 at prior dose. There is no sign of bleeding and clip is still on ulcer and it appears to be healing. Diagnosis Code(s): --- Professional --- K25.9, Gastric ulcer, unspecified as acute or chronic, without hemorrhage or perforation K25.0, Acute gastric ulcer with hemorrhage Joe Swain MD 04/25/2018 9:54:44 AM This report has been signed electronically. Number of Addenda: 0 Note Initiated On: 04/25/2018 9:42 AM
== END 2018-04-25 10:40 | disposition home or self-care (01) ==
LOC: EN 08:00 → AC 08:01
PROVIDERS: Family Provider Family Medicine; PCP Family Medicine; Visit Provider Surgery
PROC: 0DJ08ZZ Inspection of Upper Intestinal Tract, Via Natural or Artificial Opening Endoscopic (ICD-10-PCS; CPT 43235; principal; 2018-04-25 08:55)
DX: K25.0 Acute gastric ulcer with hemorrhage (principal); I25.10 Atherosclerotic heart disease of native coronary artery without angina pectoris; E11.9 Type 2 diabetes mellitus without complications; E78.2 Mixed hyperlipidemia; I10 Essential (primary) hypertension; I25.5 Ischemic cardiomyopathy; I34.0 Nonrheumatic mitral (valve) insufficiency; Z87.891 Personal history of nicotine dependence; Z95.1 Presence of aortocoronary bypass graft; Z95.810 Presence of automatic (implantable) cardiac defibrillator; Z79.4 Long term (current) use of insulin
CPT/HCPCS: 43235; 82962; J7120

== ENCOUNTER → 2018-06-08 11:50 | Outpatient (CLI) | payer MEDICARE, BC, SELFPAY ==
[2018-06-08 11:53] LABS: Bacteria 0 SEEN /hpf (None Seen); Mucous, Urine 0 SEEN /hpf (<or=2+); Red Blood Cells-Urine 0 SEEN /hpf (0-5); Squamous Epithelial Cells - UA 0 SEEN /hpf (0-5); White Blood Cells 0 SEEN /hpf (0-5)
[2018-06-08 14:35] LABS: Absolute Lymphocyte Count 1.19 X10^3/ul (0.83-4.51); Absolute Neutrophil Count 4.3 X10^3/uL (2.0-7.7); Basophil# 0.01 X10^3/uL; Basophil% 0.2 % (0-1); Eosinophil# 0.07 X10^3/uL; Eosinophils% 1.2 % (0-5); Hematocrit 35.8 % (40-54); Hemoglobin 10.9 g/dl (13.0-16.5); Lymphocyte # 1.19 X10^3/ul (4.0); Lymphocyte % 19.8 % (19-41); Mean Corp Hgb Conc 30.4 g/gl (32-36); Mean Corpuscular Hgb 25.2 pg (27.0-32.0); Mean Corpuscular Volume 82.9 fL (80-94); Mean Platelet Vol. 9.8 fl (6.2-12.0); Monocyte# 0.42 X10^3/uL; Neutrophil # 4.31 X10^3/uL (2.7-7.7); Neutrophil % 71.6 % (47-70); Platelet Count 254 K/mm3 (150-450); RBC Distribution Width CV 17.8 % (11.6-14.6); RBC Distribution Width SD 54.4 fl (35.1-43.9); Red Blood Count 4.32 M/mm3 (4.6-6.2)
[2018-06-08 14:36] LABS: POSITIVE COUNT NO; POSITIVE DIFFERENTIAL NO; POSITIVE MORPHOLOGY NO
[2018-06-08 14:39] LABS: Glucose, Dipstick 1000 mg/dl (Normal); Ketone-Dipstick Negative (Negative); Leukocyte Esterase-Dipstick Negative /ul (Negative); Nitrite-Dipstick Negative (Negative); Occult Blood-Urine Negative /ul (Negative); Protein-Dipstick Negative (Negative); Specific Gravity, Urine 1.015 (1.002-1.030); Urine Bilirubin Dipstick Negative (Negative); Urine Urobilinogen Normal (Normal)
[2018-06-08 14:41] LABS: Color, Urine Yellow (Yellow)
[2018-06-08 14:42] LABS: Urine Clarity Sl Cldy (Clear)
[2018-06-08 14:57] LABS: Hemoglobin A1c 9.3 % (4.2-6.3)
[2018-06-08 14:59] LABS: Microalbumin,Random Urine 20.9 mg/L (NO RANGE EST.); Microalbumin:Creatinine Ratio 30.3 mg/g CRE (<30 mg/g CRE); Protein, Urine (Random) 10.7 mg/dL (<11.9); Protein:Creat Ratio 155 mg/g CRE (0-200)
[2018-06-08 15:03] LABS: AST(SGOT) 28 U/L (15-37); Alanine Aminotransfer ALT/SGPT 44 U/L (16-61); Albumin, Serum 3.3 g/dL (3.2-5.0); Alkaline Phosphatase 134 U/L (45-117); Anion Gap 10 (5-15); BUN 22 mg/dL (7-18); BUN/Creat Ratio 21.2 RATIO (10-20); Calcium,Total 8.2 mg/dL (8.5-10.1); Chloride 108 mmol/L (98-107); Cholesterol 87 mg/dL (200); Creatinine, Serum 1.04 mg/dL (0.70-1.30); EST Glomerular Filtration Rate 74 mL/min (>60); Est Glom Filt Rate - Afr Amer 89 mL/min (>60); Globulin 3.3 g/dL (2.2-4.2); Glucose 263 mg/dL (74-106); High Density Lipoprotein 30 mg/dL; Potassium 3.9 mmol/L (3.5-5.1); Protein, Total 6.6 g/dL (6.4-8.2); Sodium Level 142 mmol/L (136-145); Triglycerides 80 mg/dL; Very Low Density Lipoprotein 16 mg/dL (5-40)
[2018-06-08 15:08] LABS: Vitamin D,25 Hydroxy 45.5 ng/mL (29.95-100.01)
== END ==
PROVIDERS: Family Provider Family Medicine; PCP Family Medicine; Visit Provider Family Medicine
DX: E78.5 Hyperlipidemia, unspecified (principal); E11.65 Type 2 diabetes mellitus with hyperglycemia; E55.9 Vitamin D deficiency, unspecified
CPT/HCPCS: 36415; 80053; 80061; 81001; 82043; 82306; 82570; 83036; 84156; 85025

== ENCOUNTER 2018-06-15 08:35 | Day surgery (SDC) | payer MEDICARE, BC, SELFPAY ==
--- NOTE | 2018-06-05 10:36 | RAD_ITS ---
STUDY: X-RAY CHEST REASON FOR EXAM: Male, 78 years old. Pre-op TECHNIQUE: PA and lateral views of the chest. COMPARISON: Prior study of 03/17/2018 FINDINGS: There is a left-sided pacemaker. The lungs are clear and expanded. There is no demonstrated pleural abnormality. The heart size is within normal limits. Status post cardiac valvular replacement changes are seen. Normal mediastinum and ca. Normal visualized pulmonary arteries. There are calcified plaques of the aortic arch. Normal visualized thoracic spine. Normal visualized ribs, clavicles, and shoulders. There is no demonstrated abnormality of the visualized soft tissue structures of the upper abdomen. RAD/Chest PA and Lateral IMPRESSION: Status post cardiac valvular replacement changes. Calcified plaques of the aortic arch. A left-sided pacemaker is present. No acute cardiopulmonary disease process is seen. Chest findings are stable in the interval. Electronically Signed: Tank Dukes MD at 21:50 EST , Service support ,
[2018-06-05 10:54] LABS: Bacteria 0 SEEN /hpf (None Seen); Mucous, Urine 0 SEEN /hpf (<or=2+); Red Blood Cells-Urine 0 SEEN /hpf (0-5); Squamous Epithelial Cells - UA 0 SEEN /hpf (0-5); White Blood Cells 0 SEEN /hpf (0-5)
[2018-06-05 11:25] LABS: Hematocrit 35.7 % (40-54); Mean Corp Hgb Conc 30.8 g/gl (32-36); Mean Corpuscular Hgb 25.6 pg (27.0-32.0); Mean Corpuscular Volume 83.2 fL (80-94); Mean Platelet Vol. 9.7 fl (6.2-12.0); Platelet Count 268 K/mm3 (150-450); RBC Distribution Width CV 17.9 % (11.6-14.6); RBC Distribution Width SD 54.2 fl (35.1-43.9); Red Blood Count 4.29 M/mm3 (4.6-6.2); White Blood Count 6.9 K/mm3 (4.4-11.0)
[2018-06-05 11:27] LABS: International Normalized Ratio 1.8; Prothrombin Time (Protime)PT. 20.7 SECONDS (11.7-14.9)
[2018-06-05 11:32] LABS: Scan Indicated on CBC? Y/N NO
[2018-06-05 11:42] LABS: Color, Urine Yellow (Yellow); Glucose, Dipstick 1000 mg/dl (Normal); Ketone-Dipstick Negative (Negative); Leukocyte Esterase-Dipstick Negative /ul (Negative); Nitrite-Dipstick Negative (Negative); Occult Blood-Urine Negative /ul (Negative); Protein-Dipstick Negative (Negative); Urine Bilirubin Dipstick Negative (Negative); Urine Clarity Sl. Cloudy (Clear); Urine Urobilinogen Normal (Normal); Urine pH 6.5 (5.0 - 8.0)
[2018-06-05 11:49] LABS: Anion Gap 8 (5-15); BUN 27 mg/dL (7-18); BUN/Creat Ratio 22.1 RATIO (10-20); Calcium,Total 8.4 mg/dL (8.5-10.1); Chloride 103 mmol/L (98-107); Creatinine, Serum 1.22 mg/dL (0.70-1.30); EST Glomerular Filtration Rate 61 mL/min (>60); Est Glom Filt Rate - Afr Amer 74 mL/min (>60); Glucose 303 mg/dL (74-106); Sodium Level 140 mmol/L (136-145)
[2018-06-14 10:23] VITALS: BMI 22.7
[2018-06-15 09:01] LABS: Prothrombin Time Fingerstick 14.3 SEC (11.9-14.4)
--- NOTE | 2018-06-15 10:50 | OP.PCM_ITS ---
Operative Report Date of Procedure: 06/15/18 Preoperative diagnosis is device at end of life for normal battery depletion. Postoperative diagnosis same as above. After informed consent and IV antibiotics the patient was brought to the [place] catheterization laboratory and the skin over the device was prepped and draped in the usual sterile manner. Intermittent boluses of Versed, fentanyl and propofol were used for sedation and analgesia as well as 1% subcutaneous lidocaine. An incision was made over the pre-existing device. Using blunt and Bovie dissection the pocket was opened and the device was removed. Careful attention was paid not to injure the pre-existing leads. The leads were removed from the device header and they were interrogated. There is normal lead function. Hemostasis was obtained. The pocket was flushed with antibiotic solution. The sponge and needle count were correct. The new device was brought to the field. The leads were placed in the appropriate position in the header and secured by the set screw. The leads and the device were then placed in the pocket. The pocket was closed with a deep layer of running 2-0 Vicryl, a superficial layer of running 4-0 Vicryl, skin with Steri-Strips which were covered with a rolled 4 x 4 and Tegaderm. Patient left the room with the device programmed to proper parameters and there were no complications. All lead parameters were tested and found to be functionally normal. The device is a Medtronic dual chamber ICD and is high degree of AFib and RV pacing Lead and device serial and model numbers are available in the chart documents provided by the device company sales development representative procedure summary.
== END 2018-06-15 12:15 | disposition home or self-care (01) ==
PROVIDERS: Internal Medicine Cardiovascular Disease; Family Provider Family Medicine; PCP Family Medicine; Referring Provider Internal Medicine Cardiovascular Disease; Visit Provider Internal Medicine Cardiovascular Disease
DX: Z45.010 Encounter for checking and testing of cardiac pacemaker pulse generator [battery] (principal); Z00.6 Encounter for examination for normal comparison and control in clinical research program; I25.10 Atherosclerotic heart disease of native coronary artery without angina pectoris; Z95.1 Presence of aortocoronary bypass graft; I48.0 Paroxysmal atrial fibrillation; I10 Essential (primary) hypertension; E78.2 Mixed hyperlipidemia; E11.9 Type 2 diabetes mellitus without complications; I25.5 Ischemic cardiomyopathy; Z87.891 Personal history of nicotine dependence; Z95.810 Presence of automatic (implantable) cardiac defibrillator; Z98.890 Other specified postprocedural states
CPT/HCPCS: 33263; 36415; 36416; 71046; 80048; 81001; 85027; 85610; 93641; 99152; 99153; J7040; J7050; A4216

== ENCOUNTER → 2018-09-14 13:37 | Outpatient (CLI) | payer MEDICARE, BC, SELFPAY ==
[2018-07-21 12:57] VITALS: BMI 23.6
[2018-09-14 14:20] LABS: Absolute Lymphocyte Count 1.63 X10^3/ul (0.83-4.51); Absolute Neutrophil Count 8.4 X10^3/uL (2.0-7.7); Basophil# 0.02 X10^3/uL; Basophil% 0.2 % (0-1); Eosinophil# 0.09 X10^3/uL; Eosinophils% 0.8 % (0-5); Hemoglobin 13.2 g/dl (13.0-16.5); Lymphocyte # 1.63 X10^3/ul (4.0); Mean Corpuscular Hgb 28.2 pg (27.0-32.0); Mean Corpuscular Volume 85.5 fL (80-94); Monocyte# 0.66 X10^3/uL; Monocyte% 6.1 % (0-10); Neutrophil % 77.5 % (47-70); Platelet Count 219 K/mm3 (150-450); RBC Distribution Width CV 16.6 % (11.6-14.6); RBC Distribution Width SD 51.6 fl (35.1-43.9); Red Blood Count 4.68 M/mm3 (4.6-6.2); White Blood Count 10.8 K/mm3 (4.4-11.0)
[2018-09-14 14:26] LABS: POSITIVE COUNT NO; POSITIVE DIFFERENTIAL NO; POSITIVE MORPHOLOGY NO
[2018-09-14 14:47] LABS: Hemoglobin A1c 10.4 % (4.2-6.3)
[2018-09-14 15:08] LABS: Vitamin D,25 Hydroxy 33.3 ng/mL (29.95-100.01)
[2018-09-14 16:09] LABS: ALB/GLOB Ratio 1.2 RATIO (0.9-2.4); AST(SGOT) 27 U/L (15-37); Alanine Aminotransfer ALT/SGPT 36 U/L (16-61); Albumin, Serum 3.6 g/dL (3.2-5.0); Alkaline Phosphatase 151 U/L (45-117); Anion Gap 11 (5-15); BUN 29 mg/dL (7-18); BUN/Creat Ratio 28.7 RATIO (10-20); Calcium,Total 8.6 mg/dL (8.5-10.1); Chloride 106 mmol/L (98-107); Cholesterol 135 mg/dL (200); Creatinine, Serum 1.01 mg/dL (0.70-1.30); EST Glomerular Filtration Rate 76 mL/min (>60); Est Glom Filt Rate - Afr Amer 92 mL/min (>60); Glucose 153 mg/dL (74-106); High Density Lipoprotein 31 mg/dL; Potassium 4.6 mmol/L (3.5-5.1); Protein, Total 6.6 g/dL (6.4-8.2); Sodium Level 141 mmol/L (136-145); Triglycerides 106 mg/dL; Very Low Density Lipoprotein 21 mg/dL (5-40)
== END ==
PROVIDERS: Family Provider Family Medicine; PCP Family Medicine; Visit Provider Family Medicine
DX: I12.9 Hypertensive chronic kidney disease with stage 1 through stage 4 chronic kidney disease, or unspecified chronic kidney disease (principal); N18.3 Chronic kidney disease, stage 3 (moderate); E11.65 Type 2 diabetes mellitus with hyperglycemia; E78.5 Hyperlipidemia, unspecified; E55.9 Vitamin D deficiency, unspecified
CPT/HCPCS: 36415; 80053; 80061; 82306; 83036; 85025

== ENCOUNTER 2018-11-12 09:41 | Observation (INO) | payer MEDICARE, BC, SELFPAY ==
[2018-07-21 12:57] VITALS: BMI 23.6
[2018-11-12] VITALS (10 sets, daily range): BP systolic 110–123; BP diastolic 59–68; PULSE 60–89; RESP 16–18; TEMP 36.4–37; O2SAT 95–99; BMI 23.9; BMI 23.0
--- NOTE | 2018-11-12 09:53 | EKG12_ITS ---
Test Reason : HTN Blood Pressure : / mmHG Vent. Rate : 069 BPM Atrial Rate : 063 BPM P-R Int : 000 ms QRS Dur : 202 ms QT Int : 490 ms P-R-T Axes : 000 -80 088 degrees QTc Int : 525 ms Ventricular-paced rhythm with occasional Premature ventricular complexes Abnormal ECG Confirmed by RAMONITA WALSH, ROD ([id number]), editor continuity and script KATE WILSON ([id number]) on 11/15/2018 9:05:33 AM Referred By: DENISSE Confirmed By:ROD SHIPMAN MD
--- NOTE | 2018-11-12 09:53 | RAD_ITS ---
STUDY: X-RAY CHEST REASON FOR EXAM: Male, 78 years old. Chest heaviness since last night TECHNIQUE: Single AP portable view of the chest. COMPARISON: 06/05/2018. FINDINGS: There again is a dual-chamber left pacemaker in stable position. The lungs are clear and expanded. There is no demonstrated pleural abnormality. Sternal cerclage wires are present from a prior sternotomy. There is a prostatic valve likely mitral. Normal mediastinum and ca. Normal visualized pulmonary arteries. There is atherosclerotic calcification of the aortic arch with tortuosity. The thoracic spine is somewhat obscured by the mediastinum. Normal visualized ribs, clavicles, and shoulders. There is no demonstrated abnormality of the visualized soft tissue structures of the upper abdomen. RAD/Chest 1 View (Portable) IMPRESSION: No active pulmonary disease. Electronically Signed: Randal Venegas MD at 10:37 EDT Tel , Service support ,
--- NOTE | 2018-11-12 09:56 | ED.DCSUM_ITS ---
- ER Visit Summary Date of Service: 11/12/18 Chief Complaint: [] Chest pain 2 AM this morning History of Present Illness: The patient is a 78 M [] patient reports history of CABG about 20 years ago, history of cardiac defibrillator 1 year later, reports his cardiovascular and general health status has been stable he went to bed feeling fine then around 2:00 in the morning began having chest pressure the chest pressure persisted, he took 2 nitroglycerin had partial relief and it persisted he came in for evaluation, he said no fever no cough he is not been having chest pain his chest pain is relatively unusual for him, his cardiac defibrillator has not fired recently in fact he thinks it fired years ago x1 he has had no fever no cough no bowel bladder habits he is followed by Dr. Dowell who he saw few months ago and everything was stable Physical Examination: [] Vital signs are within normal range 170/80 General, no distress resting comfortably HEENT is generally unremarkable The neck is supple no adenopathy Cardiovascular, regular rate and rhythm, he is a paced rhythm on the monitor, he has a defibrillator is in place left upper chest pockets unremarkable Lungs, clear bilateral Abdomen, soft nontender Extremities, no clubbing cyanosis or edema Neurologic, awake alert answering questions appropriately moving all 4 extremities Test Results: [] Emergency Department Course and Treatment: [] His EKG shows a paced rhythm his vital signs are unremarkable is resting cuffing the bed no distress at this time screening labs IV fluids pain management Treatment Plan: [] Patient's troponin is slightly elevated his EKG shows a paced rhythm the rest of his screening labs and chest x-ray unremarkable see those reports, given his history and his complaints I spoke to hospitalist that we then see him shortly for admission Disposition: [] Admit stable Impression: [] Chest pain, angina, history of CABG cardiac defibrillator This note was generated with [employer] dictation software. It may contain incorrect words, spelling, and punctuation that were not noted in review of the chart prior to signing ED Disposition - Plan for ED Patient: Referrals: Jose Enrique Finney MD [Primary Care Provider] -
[2018-11-12] MEDS: 0.9% Normal Saline 1,000 ML 150 ML IV (10:01)
[2018-11-12] MEDS: morphine 8 MG/ML Syringe IV (10:08)
[2018-11-12] MEDS: Aspirin 81 MG TAB.CHEW 324 MG PO (10:09)
[2018-11-12] MEDS: Ondansetron 4 MG/2 ML Vial IV (10:09)
[2018-11-12 10:11] LABS: Absolute Lymphocyte Count 1.61 X10^3/ul (0.83-4.51); Absolute Neutrophil Count 9.2 X10^3/uL (2.0-7.7); Basophil# 0.03 X10^3/uL; Basophil% 0.3 % (0-1); Eosinophil# 0.07 X10^3/uL; Eosinophils% 0.6 % (0-5); Hematocrit 44.7 % (40-54); Lymphocyte # 1.61 X10^3/ul (4.0); Lymphocyte % 13.7 % (19-41); Mean Corp Hgb Conc 33.6 g/gl (32-36); Mean Corpuscular Hgb 29.5 pg (27.0-32.0); Mean Platelet Vol. 9.9 fl (6.2-12.0); Monocyte# 0.82 X10^3/uL; Neutrophil # 9.21 X10^3/uL (2.7-7.7); Neutrophil % 78.2 % (47-70); Platelet Count 255 K/mm3 (150-450); RBC Distribution Width SD 48.2 fl (35.1-43.9); Red Blood Count 5.08 M/mm3 (4.6-6.2); White Blood Count 11.8 K/mm3 (4.4-11.0)
[2018-11-12 10:12] LABS: POSITIVE COUNT NO; POSITIVE DIFFERENTIAL NO; POSITIVE MORPHOLOGY NO
[2018-11-12 10:26] LABS: Anion Gap 7 (5-15); BUN 28 mg/dL (7-18); BUN/Creat Ratio 19.2 RATIO (10-20); Calcium,Total 8.8 mg/dL (8.5-10.1); Chloride 105 mmol/L (98-107); Creatinine, Serum 1.46 mg/dL (0.70-1.30); EST Glomerular Filtration Rate 50 mL/min (>60); Est Glom Filt Rate - Afr Amer 60 mL/min (>60); Estimated Creatinine Clearance 39.61 ml/min; Glucose 188 mg/dL (74-106); Sodium Level 140 mmol/L (136-145)
--- NOTE | 2018-11-12 11:34 | EKG12_ITS ---
Test Reason : ADMITTED W/C.P. Blood Pressure : / mmHG Vent. Rate : 069 BPM Atrial Rate : 065 BPM P-R Int : 000 ms QRS Dur : 206 ms QT Int : 494 ms P-R-T Axes : 000 -83 088 degrees QTc Int : 529 ms Ventricular-paced rhythm Abnormal ECG When compared with ECG of 17-MAR-2018 06:34, Premature ventricular complexes are no longer Present Vent. rate has increased BY 4 BPM Confirmed by RAMONITA WALSH, ROD ([id number]), film and video editor KATE WILSON ([id number]) on 11/15/2018 10:03:45 AM Referred By: ALLYN Confirmed By:ROD SHIPMAN MD
--- NOTE | 2018-11-12 12:26 | PCM.HP.STD ---
History of Present Illness Date of Admission: 11/12/18 Chief Complaint: chest pressure The patient is a 78 year old M with past medical history as listed. He was admitted through the ED on 11/12/2018 with a complaint of left-sided pressure-like chest pain which she rated about 6/10. He had assisted tingling in his left arm but the chest pain did not radiate fair. Pain was in the area of his pacemaker/defibrillator. He did not have any assisted lightheadedness or dizziness, or palpitations. Patient's recently had a stroke and has been under a lot of stress going to and from the prison to see her. Review of systems otherwise negative. He recently had his defibrillator battery changed and states he did not feel the defibrillator firing. Troponin was 0.02 on admission and EKG showed a paced rhythm. CBC was only significant for wbc of 11.8. Chest x-ray showed no acute cardiopulmonary disease. He has been admitted to be managed for chest pain to rule out ACS. [] Past Medical History Past Medical History (Chronic Problems): Chronic Problems (Last Updated 06/05/18 @ 11:12 by Jose Enrique Ervin NP-C) Paroxysmal atrial fibrillation (Chronic) Muscle cramps (Chronic) History of electrophysiologic study (Chronic) Inducible VT- History of left heart catheterization (Chronic) 2001; PTCA of RCA intracoronary stent 2000; @ [facility] 08/28/1999; 11/22/2016 attempted PTCA of RCA; 01/11/2007 PTCA/Stent to mid CX, prox LAD, and OM1 @ [facility]; Status post mitral valve annuloplasty (Chronic) 30mm 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) Status post PCI and CABG with an ERWIN to LAD, SVG to first LCx, and second LCx in October 1999 Ischemic cardiomyopathy (Chronic) Essential (primary) hypertension (Chronic) Hyperlipemia, mixed (Chronic) Type 2 diabetes mellitus without complications (Chronic) Medical History: Medical History (Last Updated 06/05/18 @ 11:12 by LILLIANA BallardC) Paroxysmal atrial fibrillation (Chronic) I48.0 Upper GI bleed (Acute) K92.2 Acute blood loss anemia (Acute) D62 Anticoagulated (Acute) Z79.01 Hypokalemia due to loss of potassium (Acute) E87.6 Muscle cramps (Chronic) R25.2 NSVT (nonsustained ventricular tachycardia) (Chronic) I47.2 Nonrheumatic mitral valve insufficiency (Chronic) I34.0 Atherosclerosis of [place] coronary artery of [place] heart without angina pectoris (Chronic) I25.10 Status post PCI and CABG with an ERWIN to LAD, SVG to first LCx, and second LCx in October 1999 Ischemic cardiomyopathy (Chronic) I25.5 Essential (primary) hypertension (Chronic) I10 Hyperlipemia, mixed (Chronic) E78.2 Type 2 diabetes mellitus without complications (Chronic) E11.9 Allergies atorvastatin Allergy (Severe, Verified 11/12/18 09:50) myalgias, tongue swelling rivaroxaban [From Xarelto] Allergy (Severe, Verified 11/12/18 09:50) tongue swelling azithromycin [From Zithromax] Adverse Reaction (Severe, Verified 11/12/18 09:50) blisters metolazone Adverse Reaction (Severe, Verified 11/12/18 09:50) Rash/Itching catopril Allergy (Severe, Uncoded 11/12/18 09:50) Tongue Swelling Home Medications: Ambulatory Orders Medication Instructions Recorded Insulin Detemir [Levemir FlexPen] 22 units SC QHS 04/11/17 Metolazone [Zaroxolyn] 2.5 mg PO MO 04/11/17 Multivitamins,Therapeutic 1 tab PO DAILY 04/11/17 [Multivitamin] nitroglycerin 0.4 mg sublingual 0.4 mg SUBLINGUAL Q5M PRN #25 tab 07/12/17 tablet Insulin Lispro [Humalog] 10 unit SC TID 03/17/18 carvedilol 12.5 mg tablet 12.5 mg PO BID #180 tab 07/20/18 furosemide 40 mg tablet 40 mg PO BID #180 tab 07/20/18 isosorbide mononitrate ER 30 mg 30 mg PO DAILY #90 tab 07/20/18 tablet,extended release 24 hr apixaban 5 mg tablet 5 mg PO BID #180 tab 08/14/18 Potassium Chloride [Klor-Con M20] 40 meq PO BID 11/12/18 Rosuvastatin Calcium [Crestor] 40 mg PO QHS 11/12/18 Surgical History: Surgical History (Last Reviewed 04/24/18 @ 15:29 by Niya Sheldon) History of electrophysiologic study (Chronic) Z98.890 Inducible VT- History of left heart catheterization (Chronic) Z98.890 2001; PTCA of RCA intracoronary stent 2000; @ [facility] 08/28/1999; 11/22/2016 attempted PTCA of RCA; 01/11/2007 PTCA/Stent to mid CX, prox LAD, and OM1 @ [facility]; Status post mitral valve annuloplasty (Chronic) Z98.[address] [place] saddle ring Hx of CABG (Chronic) Z95.1 11/08/2009- ERWIN to LAD, SVG to 1st CFX & 2nd CFX S/P ICD (internal cardiac defibrillator) procedure (Chronic) Z95.810 atrial lead and ICD 03/02/2007; RV lead replacement d/t fractured sprint adniel lead with ICD shocks 01/03/2012 Surgical History: coronary bypass surgery Smoking Status: Former smoker - *Family History Maternal History Items: No pertinent history Review of Systems Constitutional: Denies: Chills, Fever, Malaise, Weakness, Weight Change Eyes: Denies: Blurred vision HEENT: Denies: Head Aches, Sinus Congestion, Sinus Drainage Cardiovascular: Reports: Chest Pain, Chest Pressure. Denies: Chest Tightness, Edema, Heaviness, Light Headedness, Orthopnea Respiratory: Denies: Cough, Shortness of breath at rest, Sputum production Gastrointestinal: Denies: Abdominal Pain, Nausea, Vomiting Genitourinary: Denies: Dysuria Musculoskeletal: Denies: Joint Pain, Joint Tenderness Skin: Denies: Rash, Wounds Neurological: Denies: Numbness, Tingling, Focal weakness Psychiatric: Denies: Anxiety, Depression, Homicidal Ideations, Suicidal Ideations Hematologic/ Lymphatic: Denies: Easy Bruising, Easy Bleeding VTE Information - Inpt Only VTE Present on Admission: No VTE Pharm Prophylaxis ordered?: Yes - Physical Exam General: Alert, Oriented x3, Cooperative, No apparent distress HEENT: Atraumatic, PERRLA, EOMI, Normocephalic Oral: Moist Mucosa Neck: Supple, No JVD, Negative Carotid Bruits Lungs: Clear to auscultation, Normal air movement, No rhonchi, No wheeze Cardiovascular: Regular rate, Regular Rhythm, Normal S1, Normal S2, No murmurs, - - left sided sc pacemaker/defibrillator in place Abdomen: Bowel Sounds Present, Soft, Non Tender, Non-Distended, No Hepato-splenomegaly Extremities: No clubbing, No cyanosis, No edema, Capillary Refill Less than 3 Seconds Skin: No rashes, No breakdown Musculoskeletal: No Tenderness to Palpation of Joints or Extremities Lymphatic: No Cervical, Supraclavicular, or Inguinal Adenopathy Neurological: Cranial nerves II-XII grossly intact, Neuro grossly intact, Motor Exam 5/5 strength throughout Psych/Mental Status: Normal Affect, Appropriate, Alert and oriented to time, place, person, mood and affect Vital Signs Temp Pulse Resp BP Pulse Ox 97.9 F 65 16 116/68 95 11/12/18 12:04 11/12/18 12:04 11/12/18 12:04 11/12/18 12:04 11/12/18 12:04 Oxygen Delivery Method Room Air Weight: 146 lb 13.246 oz Body Mass Index (BMI) 23.0 Finger Stick Blood Glucose 375 Intake and Output for Last 24 Hours 11/10/18 11/11/18 11/12/18 23:59 23:59 23:59 Intake Total 0 / 0 Balance 0 / 0 Laboratory Tests Past 24 Hrs 11/12/18 11/12/18 10:00 10:00 WBC 11.8 H RBC 5.08 Hgb 15.0 Hct 44.7 MCV 88.0 MCH 29.5 MCHC 33.6 RDW 15.0 H RDW Differential 48.2 H Plt Count 255 MPV 9.9 Immature Gran % (Auto) 0.200 Neut % (Auto) 78.2 H Lymph % (Auto) 13.7 L [place] % (Auto) 7.0 Eos % (Auto) 0.6 Baso % (Auto) 0.3 Absolute Neuts (auto) 9.2 H Absolute Lymphs (auto) 1.61 Total Counted Not Reportable Sodium 140 Potassium 4.0 Chloride 105 Carbon Dioxide 28.0 Anion Gap 7 BUN 28 H Creatinine 1.46 H Estim Creat Clear Calc 39.61 Est GFR (MDRD) Af Amer 60 Est GFR (MDRD) Non-Af 50 L BUN/Creatinine Ratio 19.2 Glucose 188 H Calcium 8.8 Troponin I 0.022 Diagnostic Data Chest X-Ray 11/12/18 09:53 IMPRESSION: No active pulmonary disease. Electronically Signed: Randal Venegas MD at 10:37 EDT Tel , Service support , Assessment/Plan All Active Problems (Last Updated 06/05/18 @ 11:12 by Jose Enrique Ervin PEDIATRIC DENTAL ASSISTANT-C) Upper GI bleed (Acute) Acute blood loss anemia (Acute) Anticoagulated (Acute) Hypokalemia due to loss of potassium (Acute) 78 y/o male admitted with a complaint of chest pain 1. chest pain, to r/o ACS initial troponin was 0.022; will cycle troponin EKG showed only paced rhythm aspirin 81mg daily, SL nitroglycerin prn if troponins remain negative, for stress test tomorrow 2. Chronic HFrEF: chronic. On lasix 40mg bid, and metolazone 2.5mg monthly.Metolazone held as he has metolazone listed as an allergy. On carvedilol 12.5mg bid. echo(2015); EF of 30%, with mildly dilated LV and moderate segmental systolic dysfunction 3. diabetes mellitus: on insulin levemir 22IU qhs and humalog 10units TID. ISS. Accuchecks ACHS. Says sugars are poorly controlled at home, and he thinks he has been having blurred vision which he thinks is due to diabetes. TO monitor sugars and adjust insulin dose as needed. 4. Mitral valve insufficiency: s/p repair. stable 5. History of nonsustained ventricular tachycardia: s/p ICD placement. Had battery changed recently. stable 6. Nonischemic cardiomyopathy: on imdur, carvedilol and furosemide. 7. Hypertension:on carvedilol 8. Paroxysmal Afib: on carvedilol. eliquis on hold 9. Hyperlipidemia: on rosuvastatin DVT prophylaxis; SCDs. eliquis on hold for now pending stress test results in case patient needs further workup. Code Visit OBSV E&M: 33979 Initial observation care L3
--- NOTE | 2018-11-12 12:29 | HP.PCM_ITS ---
History of Present Illness Date of Admission: 11/12/18 Chief Complaint: chest pressure The patient is a 78 year old M with past medical history as listed. He was admitted through the ED on 11/12/2018 with a complaint of left-sided pressure- like chest pain which she rated about 6/10. He had assisted tingling in his left arm but the chest pain did not radiate fair. Pain was in the area of his pacemaker/defibrillator. He did not have any assisted lightheadedness or dizziness, or palpitations. Patient's recently had a stroke and has been under a lot of stress going to and from the prison to see her. Review of systems otherwise negative. He recently had his defibrillator battery changed and states he did not feel the defibrillator firing. Troponin was 0.02 on admission and EKG showed a paced rhythm. CBC was only significant for wbc of 11.8. Chest x-ray showed no acute cardiopulmonary disease. He has been admitted to be managed for chest pain to rule out ACS. [] Past Medical History Past Medical History (Chronic Problems): Chronic Problems (Last Updated 06/05/18 @ 11:12 by Jose Enrique Ervin NP-C) Paroxysmal atrial fibrillation (Chronic) Muscle cramps (Chronic) History of electrophysiologic study (Chronic) Inducible VT- History of left heart catheterization (Chronic) 2001; PTCA of RCA intracoronary stent 2000; @ [facility] 08/28/1999; 11/22/2016 attempted PTCA of RCA; 01/11/2007 PTCA/Stent to mid CX, prox LAD, a nd OM1 @ [facility]; Status post mitral valve annuloplasty (Chronic) 30mm 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) Status post PCI and CABG with an ERWIN to LAD, SVG to first LCx, and second LCx in October 1999 Ischemic cardiomyopathy (Chronic) Essential (primary) hypertension (Chronic) Hyperlipemia, mixed (Chronic) Type 2 diabetes mellitus without complications (Chronic) Medical History: Medical History (Last Updated 06/05/18 @ 11:12 by MITESH Ballard) Paroxysmal atrial fibrillation (Chronic) I48.0 Upper GI bleed (Acute) K92.2 Acute blood loss anemia (Acute) D62 Anticoagulated (Acute) Z79.01 Hypokalemia due to loss of potassium (Acute) E87.6 Muscle cramps (Chronic) R25.2 NSVT (nonsustained ventricular tachycardia) (Chronic) I47.2 Nonrheumatic mitral valve insufficiency (Chronic) I34.0 Atherosclerosis of [place] coronary artery of [place] heart without angina pectoris (Chronic) I25.10 Status post PCI and CABG with an ERWIN to LAD, SVG to first LCx, and second LCx in October 1999 Ischemic cardiomyopathy (Chronic) I25.5 Essential (primary) hypertension (Chronic) I10 Hyperlipemia, mixed (Chronic) E78.2 Type 2 diabetes mellitus without complications (Chronic) E11.9 Allergies atorvastatin Allergy (Severe, Verified 11/12/18 09:50) myalgias, tongue swelling rivaroxaban [From Xarelto] Allergy (Severe, Verified 11/12/18 09:50) tongue swelling azithromycin [From Zithromax] Adverse Reaction (Severe, Verified 11/12/18 09:50) blisters metolazone Adverse Reaction (Severe, Verified 11/12/18 09:50) Rash/Itching catopril Allergy (Severe, Uncoded 11/12/18 09:50) Tongue Swelling Home Medications: Ambulatory Orders Medication Instructions Recorded Insulin Detemir [Levemir FlexPen] 22 units SC QHS 04/11/17 Metolazone [Zaroxolyn] 2.5 mg PO MO 04/11/17 Multivitamins,Therapeutic 1 tab PO DAILY 04/11/17 [Multivitamin] nitroglycerin 0.4 mg sublingual 0.4 mg SUBLINGUAL Q5M PRN #25 tab 07/12/17 tablet Insulin Lispro [Humalog] 10 unit SC TID 03/17/18 carvedilol 12.5 mg tablet 12.5 mg PO BID #180 tab 07/20/18 furosemide 40 mg tablet 40 mg PO BID #180 tab 07/20/18 isosorbide mononitrate ER 30 mg 30 mg PO DAILY #90 tab 07/20/18 tablet,extended release 24 hr apixaban 5 mg tablet 5 mg PO BID #180 tab 08/14/18 Potassium Chloride [Klor-Con M20] 40 meq PO BID 11/12/18 Rosuvastatin Calcium [Crestor] 40 mg PO QHS 11/12/18 Surgical History: Surgical History (Last Reviewed 04/24/18 @ 15:29 by Niya Sheldon) History of electrophysiologic study (Chronic) Z98.890 Inducible VT- History of left heart catheterization (Chronic) Z98.890 2001; PTCA of RCA intracoronary stent 2000; @ [facility] 08/28/1999; 11/22/2016 attempted PTCA of RCA; 01/11/2007 PTCA/Stent to mid CX, prox LAD, and OM1 @ [facility]; Status post mitral valve annuloplasty (Chronic) Z98.[address] [place] saddle ring Hx of CABG (Chronic) Z95.1 11/08/2009- ERWIN to LAD, SVG to 1st CFX & 2nd CFX S/P ICD (internal cardiac defibrillator) procedure (Chronic) Z95.810 atrial lead and ICD 03/02/2007; RV lead replacement d/t fractured sprint daniel lead with ICD shocks 01/03/2012 Surgical History: coronary bypass surgery Smoking Status: Former smoker - *Family History Maternal History Items: No pertinent history Review of Systems Constitutional: Denies: Chills, Fever, Malaise, Weakness, Weight Change Eyes: Denies: Blurred vision HEENT: Denies: Head Aches, Sinus Congestion, Sinus Drainage Cardiovascular: Reports: Chest Pain, Chest Pressure. Denies: Chest Tightness, Edema, Heaviness, Light Headedness, Orthopnea Respiratory: Denies: Cough, Shortness of breath at rest, Sputum production Gastrointestinal: Denies: Abdominal Pain, Nausea, Vomiting Genitourinary: Denies: Dysuria Musculoskeletal: Denies: Joint Pain, Joint Tenderness Skin: Denies: Rash, Wounds Neurological: Denies: Numbness, Tingling, Focal weakness Psychiatric: Denies: Anxiety, Depression, Homicidal Ideations, Suicidal Ideations Hematologic/ Lymphatic: Denies: Easy Bruising, Easy Bleeding VTE Information - Inpt Only VTE Present on Admission: No VTE Pharm Prophylaxis ordered?: Yes - Physical Exam General: Alert, Oriented x3, Cooperative, No apparent distress HEENT: Atraumatic, PERRLA, EOMI, Normocephalic Oral: Moist Mucosa Neck: Supple, No JVD, Negative Carotid Bruits Lungs: Clear to auscultation, Normal air movement, No rhonchi, No wheeze Cardiovascular: Regular rate, Regular Rhythm, Normal S1, Normal S2, No murmurs, - - left sided sc pacemaker/defibrillator in place Abdomen: Bowel Sounds Present, Soft, Non Tender, Non-Distended, No Hepato- splenomegaly Extremities: No clubbing, No cyanosis, No edema, Capillary Refill Less than 3 Seconds Skin: No rashes, No breakdown Musculoskeletal: No Tenderness to Palpation of Joints or Extremities Lymphatic: No Cervical, Supraclavicular, or Inguinal Adenopathy Neurological: Cranial nerves II-XII grossly intact, Neuro grossly intact, Motor Exam 5/5 strength throughout Psych/Mental Status: Normal Affect, Appropriate, Alert and oriented to time, place, person, mood and affect Vital Signs Temp Pulse Resp BP Pulse Ox 97.9 F 65 16 116/68 95 11/12/18 12:04 11/12/18 12:04 11/12/18 12:04 11/12/18 12:04 11/12/18 12:04 Oxygen Delivery Method Room Air Weight: 146 lb 13.246 oz Body Mass Index (BMI) 23.0 Finger Stick Blood Glucose 375 Intake and Output for Last 24 Hours 11/10/18 11/11/18 11/12/18 23:59 23:59 23:59 Intake Total 0 / 0 Balance 0 / 0 Laboratory Tests Past 24 Hrs 11/12/18 11/12/18 10:00 10:00 WBC 11.8 H RBC 5.08 Hgb 15.0 Hct 44.7 MCV 88.0 MCH 29.5 MCHC 33.6 RDW 15.0 H RDW Differential 48.2 H Plt Count 255 MPV 9.9 Immature Gran % (Auto) 0.200 Neut % (Auto) 78.2 H Lymph % (Auto) 13.7 L [place] % (Auto) 7.0 Eos % (Auto) 0.6 Baso % (Auto) 0.3 Absolute Neuts (auto) 9.2 H Absolute Lymphs (auto) 1.61 Total Counted Not Reportable Sodium 140 Potassium 4.0 Chloride 105 Carbon Dioxide 28.0 Anion Gap 7 BUN 28 H Creatinine 1.46 H Estim Creat Clear Calc 39.61 Est GFR (MDRD) Af Amer 60 Est GFR (MDRD) Non-Af 50 L BUN/Creatinine Ratio 19.2 Glucose 188 H Calcium 8.8 Troponin I 0.022 Diagnostic Data Chest X-Ray 11/12/18 09:53 IMPRESSION: No active pulmonary disease. Electronically Signed: Randal Venegas MD at 10:37 EDT Tel , Service support , Assessment/Plan All Active Problems (Last Updated 06/05/18 @ 11:12 by Jose Enrique Ervin CALENDER ROLL OPERATOR-C) Upper GI bleed (Acute) Acute blood loss anemia (Acute) Anticoagulated (Acute) Hypokalemia due to loss of potassium (Acute) 78 y/o male admitted with a complaint of chest pain 1. chest pain, to r/o ACS * initial troponin was 0.022; will cycle troponin * EKG showed only paced rhythm * aspirin 81mg daily, SL nitroglycerin prn * if troponins remain negative, for stress test tomorrow * 2. Chronic HFrEF: * chronic. On lasix 40mg bid, and metolazone 2.5mg monthly.Metolazone held as he has metolazone listed as an allergy. * On carvedilol 12.5mg bid. * echo(2015); EF of 30%, with mildly dilated LV and moderate segmental systolic dysfunction 3. diabetes mellitus: * on insulin levemir 22IU qhs and humalog 10units TID. * ISS. Accuchecks ACHS. * Says sugars are poorly controlled at home, and he thinks he has been having blurred vision which he thinks is due to diabetes. * TO monitor sugars and adjust insulin dose as needed. 4. Mitral valve insufficiency: s/p repair. stable 5. History of nonsustained ventricular tachycardia: s/p ICD placement. Had battery changed recently. stable 6. Nonischemic cardiomyopathy: on imdur, carvedilol and furosemide. 7. Hypertension:on carvedilol 8. Paroxysmal Afib: on carvedilol. eliquis on hold 9. Hyperlipidemia: on rosuvastatin DVT prophylaxis; SCDs. eliquis on hold for now pending stress test results in case patient needs further workup. Code Visit OBSV E&M: 14859 Initial observation care L3
[2018-11-12] MEDS: Insulin Lispro 100 UNIT/ML INSULN.PEN SQ ×2 (16:43→22:00)
[2018-11-12] MEDS: Insulin Lispro 100 UNIT/ML INSULN.PEN 10 UNIT SC (16:43)
[2018-11-12 20:46] LABS: Bedside Glucose 358 mg/dL (70-110)
[2018-11-12] MEDS: Rosuvastatin Calcium 5 MG Tablet PO (22:00)
[2018-11-12] MEDS: Carvedilol 12.5 MG Tablet PO (22:00)
[2018-11-12] MEDS: Furosemide 40 MG Tablet PO (22:01)
[2018-11-12 22:10] LABS: Bedside Glucose 177 mg/dL (70-110)
[2018-11-13] VITALS (7 sets, daily range): BP systolic 102–106; BP diastolic 56–58; PULSE 60–72; RESP 16–18; TEMP 37.3–37.5; O2SAT 95
[2018-11-13 05:59] LABS: International Normalized Ratio 1.3; Prothrombin Time (Protime)PT. 16.4 SECONDS (11.7-14.9)
[2018-11-13 06:00] LABS: Partial Thromboplast Time 32.1 Seconds (24.1-36.2)
[2018-11-13 06:15] LABS: Anion Gap 7 (5-15); BUN 28 mg/dL (7-18); BUN/Creat Ratio 22.2 RATIO (10-20); Calcium,Total 8.2 mg/dL (8.5-10.1); Chloride 107 mmol/L (98-107); Creatinine, Serum 1.26 mg/dL (0.70-1.30); EST Glomerular Filtration Rate 59 mL/min (>60); Est Glom Filt Rate - Afr Amer 71 mL/min (>60); Glucose 217 mg/dL (74-106); Magnesium 2.3 mg/dL (1.6-2.6); Potassium 3.8 mmol/L (3.5-5.1); Sodium Level 139 mmol/L (136-145)
[2018-11-13 06:26] LABS: Absolute Lymphocyte Count 1.51 X10^3/ul (0.83-4.51); Absolute Neutrophil Count 6.9 X10^3/uL (2.0-7.7); Basophil# 0.03 X10^3/uL; Basophil% 0.3 % (0-1); Eosinophil# 0.04 X10^3/uL; Eosinophils% 0.4 % (0-5); Hematocrit 41.5 % (40-54); Hemoglobin 13.5 g/dl (13.0-16.5); Lymphocyte # 1.51 X10^3/ul (4.0); Lymphocyte % 16.3 % (19-41); Mean Corp Hgb Conc 32.5 g/gl (32-36); Mean Corpuscular Hgb 28.8 pg (27.0-32.0); Mean Corpuscular Volume 88.7 fL (80-94); Mean Platelet Vol. 9.9 fl (6.2-12.0); Monocyte# 0.81 X10^3/uL; Monocyte% 8.7 % (0-10); Neutrophil # 6.88 X10^3/uL (2.7-7.7); Neutrophil % 74.2 % (47-70); Platelet Count 202 K/mm3 (150-450); RBC Distribution Width CV 15.7 % (11.6-14.6); RBC Distribution Width SD 50.2 fl (35.1-43.9); Red Blood Count 4.68 M/mm3 (4.6-6.2); White Blood Count 9.3 K/mm3 (4.4-11.0)
[2018-11-13 06:38] LABS: POSITIVE COUNT NO; POSITIVE DIFFERENTIAL NO; POSITIVE MORPHOLOGY NO
[2018-11-13 07:05] LABS: Bedside Glucose 225 mg/dL (70-110)
--- NOTE | 2018-11-13 09:51 | STRESSREP ---
Stress Test Report Pharmacologic myocardial perfusion stress test. 78-year-old man with a history of coronary artery disease status post multivessel angioplasty. Stress protocol: Resting EKG demonstrates atrial fibrillation with a rate of 61 bpm and a left bundle branch block patent. 0.4 mg of regadenoson was infused per usual protocol followed by rapid intravenous saline flush injection continuous EKG monitoring was performed. Patient maintained atrial fibrillation throughout the recording. Left bundle branch block pattern was noted with no indication of ischemia. The resting blood pressure 138/80 with a final blood pressure 120/64. The maximum heart rate was 65 bpm. Myocardial perfusion stress test. 11.6 mCi of technetium 99m sestamibi was injected at rest. 0.4 mg of regadenoson was infused per usual protocol peak infusion 34.3 mCi of technetium 99m sestamibi was injected stress images were obtained stress and rest images were reconstructed and compared in the short axis vertical long horizontal long axis. Gated images were also obtained Perfusion SPECT analysis: Review of this images demonstrated a mildly dilated cardiac silhouette size. There is a large defect noted involving the mid to distal anterior wall involving the apex. The entire inferior wall also demonstrates reduced perfusion involving the inferior septal wall as well. There is a small portion of the basal inferior wall which appears to be well perfused. The mid inferior wall is significantly underperfused and a small portion near the apical inferior wall is moderately perfused. This is present on the stress and rest images to a similar extent. The above is suggestive of a previous extensive anterior apical infarct, inferior infarct, and inferior septal infarct. No obvious reversibility is noted suggest ischemia. Gated SPECT analysis: The gated ejection fraction is noted to be 35% with segmental wall motion of normality is present. Conclusion: Myocardial perfusion stress test with evidence of previous mid anterior, anterior apical, apical, and inferior infarct. No obvious ischemia is noted. There is also inferior septal infarct noted. Ischemic cardiomyopathy.
[2018-11-13] MEDS: Multivitamins,Therapeutic Tablet 1 TABLET PO (10:31)
[2018-11-13] MEDS: Isosorbide Mononitrate 30 MG Tablet PO (10:31)
[2018-11-13] MEDS: Furosemide 40 MG Tablet PO (10:31)
[2018-11-13] MEDS: Carvedilol 12.5 MG Tablet PO (10:31)
[2018-11-13] MEDS: Insulin Lispro 100 UNIT/ML INSULN.PEN 10 UNIT SC (10:32)
[2018-11-13] MEDS: Insulin Lispro 100 UNIT/ML INSULN.PEN SQ (10:32)
--- NOTE | 2018-11-13 11:30 | DCINST_ITS ---
You will use the following diet at home:: Cardiac Discharge Activity: Return to Normal Activity Call your doctor if you observe: Shortness of breath, Dizziness, Fainting spells, Chest pain Allergies/Adverse Reactions: Allergies atorvastatin Allergy (Severe, Verified 11/12/18 09:50) myalgias, tongue swelling rivaroxaban [From Xarelto] Allergy (Severe, Verified 11/12/18 09:50) tongue swelling azithromycin [From Zithromax] Adverse Reaction (Severe, Verified 11/12/18 09:50) blisters metolazone Adverse Reaction (Severe, Verified 11/12/18 09:50) Rash/Itching catopril Allergy (Severe, Uncoded 11/12/18 09:50) Tongue Swelling Medications to take at Discharge Insulin Detemir [Levemir FlexPen] 22 units SC QHS 04/11/17 Multivitamins,Therapeutic [Multivitamin] 1 tab PO DAILY 04/11/17 nitroglycerin 0.4 mg sublingual tablet 0.4 mg SUBLINGUAL Q5M PRN #25 tab 07/12/17 Insulin Lispro [Humalog] 10 unit SC TID 03/17/18 carvedilol 12.5 mg tablet 12.5 mg PO BID #180 tab 07/20/18 furosemide 40 mg tablet 40 mg PO BID #180 tab 07/20/18 isosorbide mononitrate ER 30 mg tablet,extended release 24 hr 30 mg PO DAILY #90 tab 07/20/18 apixaban 5 mg tablet 5 mg PO BID #180 tab 08/14/18 Potassium Chloride [Klor-Con M20] 40 meq PO BID 11/12/18 Rosuvastatin Calcium [Crestor] 40 mg PO QHS 11/12/18 Primary Care Physician: Jose Enrique Finney MD [Primary Care Provider] - Please follow up with your Primary Care Physician in: 1 Week Test Results: Test results from this visit will be discussed in further detail at your follow- up appointment, if applicable. Proposed Discharge Date: 11/13/18
--- NOTE | 2018-11-13 12:57 | PCM.DC.SUM ---
<Francoise Aleman - Last Filed: 11/13/18 13:08> Discharge Date and Diagnosis Date of Admission: 11/12/18 Date of Discharge: 11/13/18 - Primary Discharge Diagnosis 1. Chest pain, ACS ruled out 2. 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 Electronically Signed: Randal Venegas MD at 10:37 EDT Tel , Service support , Operations: None Procedures: Stress test Summary of Care Provided: The patient is a 78 year old M admitted 11/12/2018 due to chest pressure. Chest x-ray unremarkable. Troponin negative. EKG without ST-T changes, paced rhythm. Patient underwent nuclear stress test which was negative for ischemia. ACS ruled out. No arrhythmias on telemetry. He was noted to have acute kidney injury on admission with creatinine 1.4 compared to most recent lab in September which was 1.0. LISA resolved with gentle IV fluids. Recommend repeat BMP by primary care provider. He has a past medical history of CAD status post CABG, hypertension, hyperlipidemia, type 2 diabetes mellitus, ischemic cardiomyopathy, status post ICD, status post mitral valve replacement, paroxysmal atrial fibrillation. Other chronic medical conditions as noted above are stable at this time. Hemoglobin A1c September 2018 10.4%. Patient reports blood glucose is labile at home. Recommend close follow-up with primary care physician for further blood glucose regulation. Follow-up with primary care physician in 1 week. Follow-up with Dr. Dowell as previously scheduled. General: Alert, Oriented x3, Cooperative, No apparent distress HEENT: Atraumatic, PERRLA, EOMI, Normocephalic Oral: Moist Mucosa Neck: Supple, No JVD, Negative Carotid Bruits Lungs: Clear to auscultation, Normal air movement Cardiovascular: Regular rate, Regular Rhythm, Normal S1, Normal S2, No murmurs Abdomen: Bowel Sounds Present, Soft, Non Tender, Non-Distended Extremities: No clubbing, No cyanosis, No edema, Capillary Refill Less than 3 Seconds Skin: No rashes, No breakdown Musculoskeletal: No Tenderness to Palpation of Joints or Extremities Lymphatic: No Cervical, Supraclavicular, or Inguinal Adenopathy Neurological: Cranial nerves II-XII grossly intact, Neuro grossly intact Psych/Mental Status: Normal Affect, Appropriate Patient seen and examined prior to discharge. Physical assessment as noted above. Patient is stable for discharge with follow up recommendations as noted above. This patient was seen by MITESH Reed under the supervision of Dr. Lawrence. - Physical Exam Vital Signs Temp Pulse Resp BP Pulse Ox 99.2 F H 72 16 106/58 L 95 11/13/18 09:55 11/13/18 11:29 11/13/18 09:55 11/13/18 09:55 11/13/18 09:55 Oxygen Delivery Method Room Air Weight: 146 lb 13.246 oz Body Mass Index (BMI) 23.0 Finger Stick Blood Glucose 375 Intake and Output for Last 24 Hours 11/11/18 11/12/18 11/13/18 23:59 23:59 23:59 Intake Total 1280 / 1280 0 / 0 Output Total 350 / 350 Balance 930 / 930 0 / 0 Laboratory Tests Past 24 Hrs 11/12/18 11/12/18 11/13/18 13:10 15:32 05:05 WBC 9.3 RBC 4.68 Hgb 13.5 Hct 41.5 MCV 88.7 MCH 28.8 MCHC 32.5 RDW 15.7 H RDW Differential 50.2 H Plt Count 202 MPV 9.9 Immature Gran % (Auto) 0.100 Neut % (Auto) 74.2 H Lymph % (Auto) 16.3 L [place] % (Auto) 8.7 Eos % (Auto) 0.4 Baso % (Auto) 0.3 Absolute Neuts (auto) 6.9 Absolute Lymphs (auto) 1.51 Total Counted Not Reportable PT INR APTT Sodium Potassium Chloride Carbon Dioxide Anion Gap BUN Creatinine Estim Creat Clear Calc Est GFR (MDRD) Af Amer Est GFR (MDRD) Non-Af BUN/Creatinine Ratio Glucose Calcium Magnesium Troponin I 0.025 0.023 11/13/18 11/13/18 05:05 05:05 WBC RBC Hgb Hct MCV MCH MCHC RDW RDW Differential Plt Count MPV Immature Gran % (Auto) Neut % (Auto) Lymph % (Auto) [place] % (Auto) Eos % (Auto) Baso % (Auto) Absolute Neuts (auto) Absolute Lymphs (auto) Total Counted PT 16.4 H INR 1.3 APTT 32.1 Sodium 139 Potassium 3.8 Chloride 107 Carbon Dioxide 25.0 Anion Gap 7 BUN 28 H Creatinine 1.26 Estim Creat Clear Calc 45.90 Est GFR (MDRD) Af Amer 71 Est GFR (MDRD) Non-Af 59 L BUN/Creatinine Ratio 22.2 H Glucose 217 H Calcium 8.2 L Magnesium 2.3 Troponin I POC Glucose 11/13/18 11/12/18 11/12/18 07:01 21:50 16:37 POC Glucose 225 H 177 H 358 H Discharge Diet: Low fat/ Low Cholesterol Discharge Activity: Return to Normal Activity Call your doctor if you observe: Shortness of breath, Dizziness, Fainting spells, Chest pain Home Medications: Medications to take at Discharge Insulin Detemir [Levemir FlexPen] 22 units SC QHS 04/11/17 Multivitamins,Therapeutic [Multivitamin] 1 tab PO DAILY 04/11/17 nitroglycerin 0.4 mg sublingual tablet 0.4 mg SUBLINGUAL Q5M PRN #25 tab 07/12/17 Insulin Lispro [Humalog] 10 unit SC TID 03/17/18 carvedilol 12.5 mg tablet 12.5 mg PO BID #180 tab 07/20/18 furosemide 40 mg tablet 40 mg PO BID #180 tab 07/20/18 isosorbide mononitrate ER 30 mg tablet,extended release 24 hr 30 mg PO DAILY #90 tab 07/20/18 apixaban 5 mg tablet 5 mg PO BID #180 tab 08/14/18 Potassium Chloride [Klor-Con M20] 40 meq PO BID 11/12/18 Rosuvastatin Calcium [Crestor] 40 mg PO QHS 11/12/18 Primary Care Physician: Jose Enrique Finney MD [Primary Care Provider] - Please follow up with your Primary Care Physician in: 1 Week Please Follow Up With: Glenn Dowell MD When: As scheduled Disposition: Home Minutes spent on discharge:: 35 Patient Condition:: Stable Medical Necessity - Tobacco Use Smoking Status: Former smoker Meaningful Use Info Meaningful Use Diagnoses (Choose all that apply): None applicable <Bryson Lawrence - Last Filed: 11/13/18 16:07> Discharge Date and Diagnosis - Secondary Discharge Diagnosis Chronic Problems (Last Updated 06/05/18 @ 11:12 by Jose Enrique Ervin FISHERIES MANAGER-C) Paroxysmal atrial fibrillation (Chronic) Muscle cramps (Chronic) History of electrophysiologic study (Chronic) 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 Data reviewed. I agree with the above note by the nurse practitioner. The patient is a 78 year old M presents with chest pain. Patient underwent cardiac workup, including stress test that was normal. Patient discharged in stable condition. [] - Physical Exam General: Alert, No apparent distress HEENT: Atraumatic, Normocephalic Oral: Moist Mucosa, No Gingival or Mucosal Lesions/ Ulcerations Lungs: Clear to auscultation, Normal air movement, No rhonchi, No wheeze Cardiovascular: Regular rate, Regular Rhythm, Normal S1, Normal S2, No murmurs Psych/Mental Status: Normal Affect, Appropriate Vital Signs Temp Pulse Resp BP Pulse Ox 37.3 C H 64 18 106/58 L 95 11/13/18 11:30 11/13/18 11:30 11/13/18 11:30 11/13/18 11:30 11/13/18 11:30 Oxygen Delivery Method Room Air Weight: 66.6 kg Body Mass Index (BMI) 23.0 Finger Stick Blood Glucose 375 Intake and Output for Last 24 Hours 11/11/18 11/12/18 11/13/18 23:59 23:59 23:59 Intake Total 1280 / 1280 0 / 0 Output Total 350 / 350 Balance 930 / 930 0 / 0 Laboratory Tests Past 24 Hrs 11/12/18 11/13/18 11/13/18 15:32 05:05 05:05 WBC 9.3 RBC 4.68 Hgb 13.5 Hct 41.5 MCV 88.7 MCH 28.8 MCHC 32.5 RDW 15.7 H RDW Differential 50.2 H Plt Count 202 MPV 9.9 Immature Gran % (Auto) 0.100 Neut % (Auto) 74.2 H Lymph % (Auto) 16.3 L [place] % (Auto) 8.7 Eos % (Auto) 0.4 Baso % (Auto) 0.3 Absolute Neuts (auto) 6.9 Absolute Lymphs (auto) 1.51 Total Counted Not Reportable PT INR APTT Sodium 139 Potassium 3.8 Chloride 107 Carbon Dioxide 25.0 Anion Gap 7 BUN 28 H Creatinine 1.26 Estim Creat Clear Calc 45.90 Est GFR (MDRD) Af Amer 71 Est GFR (MDRD) Non-Af 59 L BUN/Creatinine Ratio 22.2 H Glucose 217 H Calcium 8.2 L Magnesium 2.3 Troponin I 0.023 11/13/18 05:05 WBC RBC Hgb Hct MCV MCH MCHC RDW RDW Differential Plt Count MPV Immature Gran % (Auto) Neut % (Auto) Lymph % (Auto) [place] % (Auto) Eos % (Auto) Baso % (Auto) Absolute Neuts (auto) Absolute Lymphs (auto) Total Counted PT 16.4 H INR 1.3 APTT 32.1 Sodium Potassium Chloride Carbon Dioxide Anion Gap BUN Creatinine Estim Creat Clear Calc Est GFR (MDRD) Af Amer Est GFR (MDRD) Non-Af BUN/Creatinine Ratio Glucose Calcium Magnesium Troponin I POC Glucose 11/13/18 11/12/18 11/12/18 07:01 21:50 16:37 POC Glucose 225 H 177 H 358 H Discharge Diet: Low fat/ Low Cholesterol Discharge Activity: Return to Normal Activity Call your doctor if you observe: Shortness of breath, Dizziness, Fainting spells, Chest pain Disposition: Home Minutes spent on discharge:: 35 Patient Condition:: Stable Medical Necessity - Tobacco Use Smoking Status: Former smoker Meaningful Use Info Meaningful Use Diagnoses (Choose all that apply): None applicable Code Visit OBSV E&M: 44739 Observation care discharge
--- NOTE | 2018-11-13 13:08 | DS.PCM_ITS ---
<Francoise Aleman - Last Filed: 11/13/18 13:08> Discharge Date and Diagnosis Date of Admission: 11/12/18 Date of Discharge: 11/13/18 - Primary Discharge Diagnosis 1. Chest pain, ACS ruled out 2. 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 Electronically Signed: Randal Venegas MD at 10:37 EDT Tel , Service support , Operations: None Procedures: Stress test Summary of Care Provided: The patient is a 78 year old M admitted 11/12/2018 due to chest pressure. Chest x-ray unremarkable. Troponin negative. EKG without ST-T changes, paced rhythm. Patient underwent nuclear stress test which was negative for ischemia. ACS ruled out. No arrhythmias on telemetry. He was noted to have acute kidney injury on admission with creatinine 1.4 compared to most recent lab in September which was 1.0. LISA resolved with gentle IV fluids. Recommend repeat BMP by primary care provider. He has a past medical history of CAD status post CABG, hypertension, hyperlipidemia, type 2 diabetes mellitus, ischemic cardiomyopathy, status post ICD, status post mitral valve replacement, paroxysmal atrial fibrillation. Other chronic medical conditions as noted above are stable at this time. Hemoglobin A1c September 2018 10.4%. Patient reports blood glucose is labile at home. Recommend close follow-up with primary care physician for further blood glucose regulation. Follow-up with primary care physician in 1 week. Follow-up with Dr. Dowell as previously scheduled. General: Alert, Oriented x3, Cooperative, No apparent distress HEENT: Atraumatic, PERRLA, EOMI, Normocephalic Oral: Moist Mucosa Neck: Supple, No JVD, Negative Carotid Bruits Lungs: Clear to auscultation, Normal air movement Cardiovascular: Regular rate, Regular Rhythm, Normal S1, Normal S2, No murmurs Abdomen: Bowel Sounds Present, Soft, Non Tender, Non-Distended Extremities: No clubbing, No cyanosis, No edema, Capillary Refill Less than 3 Seconds Skin: No rashes, No breakdown Musculoskeletal: No Tenderness to Palpation of Joints or Extremities Lymphatic: No Cervical, Supraclavicular, or Inguinal Adenopathy Neurological: Cranial nerves II-XII grossly intact, Neuro grossly intact Psych/Mental Status: Normal Affect, Appropriate Patient seen and examined prior to discharge. Physical assessment as noted above. Patient is stable for discharge with follow up recommendations as noted above. This patient was seen by MITESH Reed under the supervision of Dr. Lawrence. - Physical Exam Vital Signs Temp Pulse Resp BP Pulse Ox 99.2 F H 72 16 106/58 L 95 11/13/18 09:55 11/13/18 11:29 11/13/18 09:55 11/13/18 09:55 11/13/18 09:55 Oxygen Delivery Method Room Air Weight: 146 lb 13.246 oz Body Mass Index (BMI) 23.0 Finger Stick Blood Glucose 375 Intake and Output for Last 24 Hours 11/11/18 11/12/18 11/13/18 23:59 23:59 23:59 Intake Total 1280 / 1280 0 / 0 Output Total 350 / 350 Balance 930 / 930 0 / 0 Laboratory Tests Past 24 Hrs 11/12/18 11/12/18 11/13/18 13:10 15:32 05:05 WBC 9.3 RBC 4.68 Hgb 13.5 Hct 41.5 MCV 88.7 MCH 28.8 MCHC 32.5 RDW 15.7 H RDW Differential 50.2 H Plt Count 202 MPV 9.9 Immature Gran % (Auto) 0.100 Neut % (Auto) 74.2 H Lymph % (Auto) 16.3 L [place] % (Auto) 8.7 Eos % (Auto) 0.4 Baso % (Auto) 0.3 Absolute Neuts (auto) 6.9 Absolute Lymphs (auto) 1.51 Total Counted Not Reportable PT INR APTT Sodium Potassium Chloride Carbon Dioxide Anion Gap BUN Creatinine Estim Creat Clear Calc Est GFR (MDRD) Af Amer Est GFR (MDRD) Non-Af BUN/Creatinine Ratio Glucose Calcium Magnesium Troponin I 0.025 0.023 11/13/18 11/13/18 05:05 05:05 WBC RBC Hgb Hct MCV MCH MCHC RDW RDW Differential Plt Count MPV Immature Gran % (Auto) Neut % (Auto) Lymph % (Auto) [place] % (Auto) Eos % (Auto) Baso % (Auto) Absolute Neuts (auto) Absolute Lymphs (auto) Total Counted PT 16.4 H INR 1.3 APTT 32.1 Sodium 139 Potassium 3.8 Chloride 107 Carbon Dioxide 25.0 Anion Gap 7 BUN 28 H Creatinine 1.26 Estim Creat Clear Calc 45.90 Est GFR (MDRD) Af Amer 71 Est GFR (MDRD) Non-Af 59 L BUN/Creatinine Ratio 22.2 H Glucose 217 H Calcium 8.2 L Magnesium 2.3 Troponin I POC Glucose 11/13/18 11/12/18 11/12/18 07:01 21:50 16:37 POC Glucose 225 H 177 H 358 H Discharge Diet: Low fat/ Low Cholesterol Discharge Activity: Return to Normal Activity Call your doctor if you observe: Shortness of breath, Dizziness, Fainting spells, Chest pain Home Medications: Medications to take at Discharge Insulin Detemir [Levemir FlexPen] 22 units SC QHS 04/11/17 Multivitamins,Therapeutic [Multivitamin] 1 tab PO DAILY 04/11/17 nitroglycerin 0.4 mg sublingual tablet 0.4 mg SUBLINGUAL Q5M PRN #25 tab 07/12/17 Insulin Lispro [Humalog] 10 unit SC TID 03/17/18 carvedilol 12.5 mg tablet 12.5 mg PO BID #180 tab 07/20/18 furosemide 40 mg tablet 40 mg PO BID #180 tab 07/20/18 isosorbide mononitrate ER 30 mg tablet,extended release 24 hr 30 mg PO DAILY #90 tab 07/20/18 apixaban 5 mg tablet 5 mg PO BID #180 tab 08/14/18 Potassium Chloride [Klor-Con M20] 40 meq PO BID 11/12/18 Rosuvastatin Calcium [Crestor] 40 mg PO QHS 11/12/18 Primary Care Physician: Jose Enrique Finney MD [Primary Care Provider] - Please follow up with your Primary Care Physician in: 1 Week Please Follow Up With: Glenn Dowell MD When: As scheduled Disposition: Home Minutes spent on discharge:: 35 Patient Condition:: Stable Medical Necessity - Tobacco Use Smoking Status: Former smoker Meaningful Use Info Meaningful Use Diagnoses (Choose all that apply): None applicable <Bryson Lawrence - Last Filed: 11/13/18 16:07> Discharge Date and Diagnosis - Secondary Discharge Diagnosis Chronic Problems (Last Updated 06/05/18 @ 11:12 by Jose Enrique Ervin EDITORIAL CARTOONIST-C) Paroxysmal atrial fibrillation (Chronic) Muscle cramps (Chronic) History of electrophysiologic study (Chronic) 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 Data reviewed. I agree with the above note by the nurse practitioner. The patient is a 78 year old M presents with chest pain. Patient underwent cardiac workup, including stress test that was normal. Patient discharged in stable condition. [] - Physical Exam General: Alert, No apparent distress HEENT: Atraumatic, Normocephalic Oral: Moist Mucosa, No Gingival or Mucosal Lesions/ Ulcerations Lungs: Clear to auscultation, Normal air movement, No rhonchi, No wheeze Cardiovascular: Regular rate, Regular Rhythm, Normal S1, Normal S2, No murmurs Psych/Mental Status: Normal Affect, Appropriate Vital Signs Temp Pulse Resp BP Pulse Ox 37.3 C H 64 18 106/58 L 95 11/13/18 11:30 11/13/18 11:30 11/13/18 11:30 11/13/18 11:30 11/13/18 11:30 Oxygen Delivery Method Room Air Weight: 66.6 kg Body Mass Index (BMI) 23.0 Finger Stick Blood Glucose 375 Intake and Output for Last 24 Hours 11/11/18 11/12/18 11/13/18 23:59 23:59 23:59 Intake Total 1280 / 1280 0 / 0 Output Total 350 / 350 Balance 930 / 930 0 / 0 Laboratory Tests Past 24 Hrs 11/12/18 11/13/18 11/13/18 15:32 05:05 05:05 WBC 9.3 RBC 4.68 Hgb 13.5 Hct 41.5 MCV 88.7 MCH 28.8 MCHC 32.5 RDW 15.7 H RDW Differential 50.2 H Plt Count 202 MPV 9.9 Immature Gran % (Auto) 0.100 Neut % (Auto) 74.2 H Lymph % (Auto) 16.3 L [place] % (Auto) 8.7 Eos % (Auto) 0.4 Baso % (Auto) 0.3 Absolute Neuts (auto) 6.9 Absolute Lymphs (auto) 1.51 Total Counted Not Reportable PT INR APTT Sodium 139 Potassium 3.8 Chloride 107 Carbon Dioxide 25.0 Anion Gap 7 BUN 28 H Creatinine 1.26 Estim Creat Clear Calc 45.90 Est GFR (MDRD) Af Amer 71 Est GFR (MDRD) Non-Af 59 L BUN/Creatinine Ratio 22.2 H Glucose 217 H Calcium 8.2 L Magnesium 2.3 Troponin I 0.023 11/13/18 05:05 WBC RBC Hgb Hct MCV MCH MCHC RDW RDW Differential Plt Count MPV Immature Gran % (Auto) Neut % (Auto) Lymph % (Auto) [place] % (Auto) Eos % (Auto) Baso % (Auto) Absolute Neuts (auto) Absolute Lymphs (auto) Total Counted PT 16.4 H INR 1.3 APTT 32.1 Sodium Potassium Chloride Carbon Dioxide Anion Gap BUN Creatinine Estim Creat Clear Calc Est GFR (MDRD) Af Amer Est GFR (MDRD) Non-Af BUN/Creatinine Ratio Glucose Calcium Magnesium Troponin I POC Glucose 11/13/18 11/12/18 11/12/18 07:01 21:50 16:37 POC Glucose 225 H 177 H 358 H Discharge Diet: Low fat/ Low Cholesterol Discharge Activity: Return to Normal Activity Call your doctor if you observe: Shortness of breath, Dizziness, Fainting spells, Chest pain Disposition: Home Minutes spent on discharge:: 35 Patient Condition:: Stable Medical Necessity - Tobacco Use Smoking Status: Former smoker Meaningful Use Info Meaningful Use Diagnoses (Choose all that apply): None applicable Code Visit OBSV E&M: 62887 Observation care discharge
== END 2018-11-13 11:30 | disposition home or self-care (01) ==
LOC: ED 11:15 → PCU 11:25
PROVIDERS: Admitting Provider Student in an Organized Health Care Education/Training Program; Emergency Provider Emergency Medicine; Family Provider Family Medicine; PCP Family Medicine
DX: R07.89 Other chest pain (principal); E11.9 Type 2 diabetes mellitus without complications; E78.2 Mixed hyperlipidemia; I48.0 Paroxysmal atrial fibrillation; I25.10 Atherosclerotic heart disease of native coronary artery without angina pectoris; I11.0 Hypertensive heart disease with heart failure; I50.22 Chronic systolic (congestive) heart failure; I42.9 Cardiomyopathy, unspecified; Z95.1 Presence of aortocoronary bypass graft; Z95.810 Presence of automatic (implantable) cardiac defibrillator; Z79.899 Other long term (current) drug therapy; Z79.4 Long term (current) use of insulin; Z87.891 Personal history of nicotine dependence; Z79.01 Long term (current) use of 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s; N17.9 Acute kidney failure, unspecified; E86.0 Dehydration; Z95.2 Presence of prosthetic heart valve
CPT/HCPCS: 36415; 71045; 78452; 80048; 82962; 83735; 84484; 85025; 85610; 85730; 93005; 93017; 96361; 96374; 96375; 99218; 99282; A9500; J7030; A4216; G0378; J2405; J2785

== ENCOUNTER → 2018-12-21 09:59 | Outpatient (CLI) | payer MEDICARE, BC, SELFPAY ==
[2018-11-12 12:00] VITALS: BMI 23.0
[2018-12-21 12:40] LABS: Absolute Lymphocyte Count 1.52 X10^3/ul (0.83-4.51); Absolute Neutrophil Count 3.8 X10^3/uL (2.0-7.7); Basophil# 0.03 X10^3/uL; Basophil% 0.5 % (0-1); Eosinophil# 0.08 X10^3/uL; Eosinophils% 1.3 % (0-5); Hematocrit 43.7 % (40-54); Hemoglobin 14.4 g/dl (13.0-16.5); Lymphocyte # 1.52 X10^3/ul (4.0); Lymphocyte % 24.7 % (19-41); Mean Corpuscular Hgb 29.4 pg (27.0-32.0); Mean Corpuscular Volume 89.4 fL (80-94); Mean Platelet Vol. 9.7 fl (6.2-12.0); Monocyte# 0.69 X10^3/uL; Monocyte% 11.2 % (0-10); Neutrophil # 3.82 X10^3/uL (2.7-7.7); Neutrophil % 62.1 % (47-70); Platelet Count 252 K/mm3 (150-450); RBC Distribution Width CV 14.8 % (11.6-14.6); RBC Distribution Width SD 47.9 fl (35.1-43.9); Red Blood Count 4.89 M/mm3 (4.6-6.2); White Blood Count 6.2 K/mm3 (4.4-11.0)
[2018-12-21 12:44] LABS: POSITIVE COUNT NO; POSITIVE DIFFERENTIAL NO; POSITIVE MORPHOLOGY NO
[2018-12-21 12:57] LABS: Hemoglobin A1c 9.6 % (4.2-6.3)
[2018-12-21 12:58] LABS: Vitamin D,25 Hydroxy 44.2 ng/mL (29.95-100.01)
[2018-12-21 13:10] LABS: ALB/GLOB Ratio 1.2 RATIO (0.9-2.4); AST(SGOT) 20 U/L (15-37); Alanine Aminotransfer ALT/SGPT 31 U/L (16-61); Albumin, Serum 3.8 g/dL (3.2-5.0); Alkaline Phosphatase 123 U/L (45-117); Anion Gap 6 (5-15); BUN 25 mg/dL (7-18); BUN/Creat Ratio 22.5 RATIO (10-20); Calcium,Total 8.9 mg/dL (8.5-10.1); Chloride 105 mmol/L (98-107); Cholesterol 148 mg/dL (200); Creatinine, Serum 1.11 mg/dL (0.70-1.30); EST Glomerular Filtration Rate 68 mL/min (>60); Est Glom Filt Rate - Afr Amer 83 mL/min (>60); Globulin 3.1 g/dL (2.2-4.2); Glucose 73 mg/dL (74-106); High Density Lipoprotein 32 mg/dL; Potassium 4.6 mmol/L (3.5-5.1); Protein, Total 6.9 g/dL (6.4-8.2); Sodium Level 139 mmol/L (136-145); Triglycerides 99 mg/dL; Very Low Density Lipoprotein 20 mg/dL (5-40)
[2018-12-21 15:57] LABS: Bacteria 0 SEEN /hpf (None Seen); Mucous, Urine 0 SEEN /hpf (<or=2+); Red Blood Cells-Urine 0 SEEN /hpf (0-5); White Blood Cells 0 SEEN /hpf (0-5)
[2018-12-21 18:01] LABS: Color, Urine Yellow (Yellow); Glucose, Dipstick 50 mg/dl (Normal); Ketone-Dipstick Negative (Negative); Leukocyte Esterase-Dipstick Negative /ul (Negative); Nitrite-Dipstick Negative (Negative); Occult Blood-Urine Negative /ul (Negative); Protein-Dipstick Negative (Negative); Specific Gravity, Urine 1.015 (1.002-1.030); Urine Bilirubin Dipstick Negative (Negative); Urine Clarity Sl. Cloudy (Clear); Urine Urobilinogen Normal (Normal); Urine pH 6.5 (5.0 - 8.0)
[2018-12-21 18:10] LABS: Squamous Epithelial Cells - UA 0-5 SEEN /hpf (0-5)
[2018-12-21 18:16] LABS: Protein, Urine (Random) 11.9 mg/dL (<11.9); Protein:Creat Ratio 110 mg/g CRE (0-200)
== END ==
PROVIDERS: Family Provider Family Medicine; PCP Family Medicine; Referring Provider Family Medicine; Visit Provider Family Medicine
DX: E55.9 Vitamin D deficiency, unspecified (principal); E78.5 Hyperlipidemia, unspecified; N18.3 Chronic kidney disease, stage 3 (moderate); E11.65 Type 2 diabetes mellitus with hyperglycemia
CPT/HCPCS: 36415; 80053; 80061; 81001; 82306; 82570; 83036; 84156; 85025

== ENCOUNTER → 2019-06-05 09:38 | Outpatient (CLI) | payer MEDICARE, BC, SELFPAY ==
[2019-06-04 15:12] VITALS: BMI 24.1
[2019-06-05 11:19] LABS: AST(SGOT) 19 U/L (15-37); Alanine Aminotransfer ALT/SGPT 30 U/L (16-61); Albumin, Serum 3.4 g/dL (3.2-5.0); Alkaline Phosphatase 149 U/L (45-117); Anion Gap 8 (5-15); BUN 24 mg/dL (7-18); BUN/Creat Ratio 24.4 RATIO (10-20); Bilirubin, Direct 0.25 mg/dL (0.00-0.30); Calcium,Total 8.5 mg/dL (8.5-10.1); Chloride 103 mmol/L (98-107); Cholesterol 122 mg/dL (200); Creatinine, Serum 0.98 mg/dL (0.70-1.30); EST Glomerular Filtration Rate 78 mL/min (>60); Est Glom Filt Rate - Afr Amer 95 mL/min (>60); Globulin 3.3 g/dL (2.2-4.2); Glucose 171 mg/dL (74-106); High Density Lipoprotein 32 mg/dL; Potassium 4.1 mmol/L (3.5-5.1); Protein, Total 6.7 g/dL (6.4-8.2); Sodium Level 137 mmol/L (136-145); Triglycerides 118 mg/dL; Very Low Density Lipoprotein 24 mg/dL (5-40)
== END ==
PROVIDERS: Family Provider Family Medicine; PCP Family Medicine; Referring Provider Internal Medicine Cardiovascular Disease; Visit Provider Internal Medicine Cardiovascular Disease
DX: E78.00 Pure hypercholesterolemia, unspecified (principal); I48.0 Paroxysmal atrial fibrillation
CPT/HCPCS: 36415; 80048; 80061; 80076

== ENCOUNTER → 2019-06-25 10:49 | Outpatient (CLI) | payer MEDICARE, BC, SELFPAY ==
[2019-06-04 15:12] VITALS: BMI 24.1
--- NOTE | 2019-06-25 10:55 | RAD_ITS ---
STUDY: X-RAY CHEST REASON FOR EXAM: Male, 79 years old. Acute bronchitis TECHNIQUE: Frontal and lateral views of the chest were performed COMPARISON: 12 November 2018 FINDINGS: There is mild cardiomegaly with repair of the mitral annulus. Pacemaker is present with leads terminating in the right atrium and right ventricle. Sternotomy wires and coronary bypass clips are in place. There is no pulmonary edema. Lungs are clear without pneumonia, pneumothorax or pleural effusions. Osseous structures are intact. Appearance is similar to prior RAD/Chest PA and Lateral IMPRESSION: No acute findings or change since prior. Extensive prior cardiac disease. Electronically Signed: Ej Albarran, at 16:24 EST Tel , Service support ,
== END ==
PROVIDERS: Family Provider Family Medicine; PCP Family Medicine; Referring Provider Family Medicine; Visit Provider Family Medicine
DX: J20.9 Acute bronchitis, unspecified (principal)
CPT/HCPCS: 71046

== ENCOUNTER → 2019-08-07 09:41 | Outpatient (CLI) | payer MEDICARE, BC, SELFPAY ==
[2019-06-04 15:12] VITALS: BMI 24.1
[2019-08-07 12:25] LABS: Absolute Lymphocyte Count 2.05 X10^3/uL (0.83-4.51); Absolute Neutrophil Count 4.9 X10^3/uL (2.0-7.7); Basophil# 0.05 X10^3/uL; Basophil% 0.6 % (0-1); Eosinophil# 0.11 X10^3/uL; Eosinophils% 1.4 % (0-5); Hematocrit 42.4 % (40-54); Hemoglobin 13.8 g/dL (13.0-16.5); Lymphocyte # 2.05 X10^3/ul (4.0); Lymphocyte % 26.1 % (19-41); Mean Corp Hgb Conc 32.5 g/dL (32-36); Mean Corpuscular Volume 92.2 fL (80-94); Mean Platelet Vol. 9.8 fl (6.2-12.0); Monocyte# 0.72 X10^3/uL; Monocyte% 9.2 % (0-10); NRBC Flagged by Analyzer 0 % (0-5); Neutrophil # 4.89 X10^3/uL (2.7-7.7); Neutrophil % 62.3 % (47-70); Platelet Count 242 K/mm3 (150-450); RBC Distribution Width CV 13.4 % (11.6-14.6); RBC Distribution Width SD 45.3 fl (35.1-43.9); White Blood Count 7.9 K/mm3 (4.4-11.0)
[2019-08-07 13:07] LABS: Hemoglobin A1c 10.2 % (4.2-6.3)
[2019-08-07 13:09] LABS: ALB/GLOB Ratio 1.2 RATIO (0.9-2.4); AST(SGOT) 19 U/L (15-37); Alanine Aminotransfer ALT/SGPT 26 U/L (16-61); Albumin, Serum 3.8 g/dL (3.2-5.0); Alkaline Phosphatase 136 U/L (45-117); Anion Gap 6 (5-15); BUN 26 mg/dL (7-18); BUN/Creat Ratio 26.9 RATIO (10-20); Calcium,Total 8.6 mg/dL (8.5-10.1); Chloride 108 mmol/L (98-107); Cholesterol 126 mg/dL (200); Creatinine, Serum 0.96 mg/dL (0.70-1.30); EST Glomerular Filtration Rate 80 mL/min (>60); Est Glom Filt Rate - Afr Amer 97 mL/min (>60); Globulin 3.3 g/dL (2.2-4.2); Glucose 40 mg/dL (74-106); High Density Lipoprotein 36 mg/dL; Potassium 3.9 mmol/L (3.5-5.1); Protein, Total 7.1 g/dL (6.4-8.2); Sodium Level 142 mmol/L (136-145); Triglycerides 69 mg/dL; Very Low Density Lipoprotein 14 mg/dL (5-40)
[2019-08-07 13:11] LABS: PTHIN 47.8 pg/mL (18.4-80.1); Vitamin D,25 Hydroxy 33.4 ng/mL (29.95-100.01)
== END ==
PROVIDERS: Family Provider Family Medicine; PCP Family Medicine; Referring Provider Family Medicine; Visit Provider Family Medicine
DX: I12.9 Hypertensive chronic kidney disease with stage 1 through stage 4 chronic kidney disease, or unspecified chronic kidney disease (principal); E11.22 Type 2 diabetes mellitus with diabetic chronic kidney disease; N18.3 Chronic kidney disease, stage 3 (moderate); E11.65 Type 2 diabetes mellitus with hyperglycemia; E78.5 Hyperlipidemia, unspecified
CPT/HCPCS: 36415; 80053; 80061; 82306; 83036; 83970; 85025

== ENCOUNTER → 2019-11-21 13:29 | Outpatient (CLI) | payer MEDICARE, BC, SELFPAY ==
[2019-06-04 15:12] VITALS: BMI 24.1
[2019-11-21 15:49] LABS: Vitamin D,25 Hydroxy 36.1 ng/mL
[2019-11-21 15:51] LABS: Hemoglobin A1c 10.2 % (4.2-6.3)
[2019-11-21 15:59] LABS: Cholesterol 127 mg/dL (200); High Density Lipoprotein 31 mg/dL; Triglycerides 108 mg/dL; Very Low Density Lipoprotein 22 mg/dL (5-40)
== END ==
PROVIDERS: PCP Family Medicine; Referring Provider Family Medicine; Visit Provider Family Medicine
DX: E78.5 Hyperlipidemia, unspecified (principal); E11.65 Type 2 diabetes mellitus with hyperglycemia; E55.9 Vitamin D deficiency, unspecified
CPT/HCPCS: 36415; 80061; 82306; 83036

== ENCOUNTER → 2020-01-02 11:59 | Outpatient (CLI) | payer MEDICARE, BC, SELFPAY ==
[2019-06-04 15:12] VITALS: BMI 24.1
[2020-01-02 15:51] LABS: Anion Gap 8 (5-15); BUN 26 mg/dL (7-18); BUN/Creat Ratio 25.5 RATIO (10-20); CPK Total, Creatine Kinase 88 U/L (39-308); Calcium,Total 9.2 mg/dL (8.5-10.1); Chloride 104 mmol/L (98-107); Creatinine, Serum 1.02 mg/dL (0.70-1.30); EST Glomerular Filtration Rate 75 mL/min (>60); Est Glom Filt Rate - Afr Amer 91 mL/min (>60); Ferritin 106 ng/mL (26-388); Glucose 169 mg/dL (74-106); Magnesium 2.4 mg/dL (1.6-2.6); Potassium 4.2 mmol/L (3.5-5.1); Sodium Level 138 mmol/L (136-145)
== END ==
PROVIDERS: PCP Family Medicine; Visit Provider Family Medicine
DX: R25.2 Cramp and spasm (principal)
CPT/HCPCS: 36415; 80048; 82550; 82728; 83735

== ENCOUNTER → 2020-02-20 14:17 | Outpatient (CLI) | payer MEDICARE, BC, SELFPAY ==
[2020-01-18 13:54] VITALS: BMI 24.5
[2020-02-20 14:21] LABS: Bacteria 0 SEEN /hpf (None Seen); Mucous, Urine 0 SEEN /hpf (<or=2+); Red Blood Cells-Urine 0 SEEN /hpf (0-5); Squamous Epithelial Cells - UA 0 SEEN /hpf (0-5); White Blood Cells 0 SEEN /hpf (0-5)
[2020-02-20 17:36] LABS: Color, Urine Yellow (Yellow); Glucose, Dipstick 1000 mg/dl (Normal); Ketone-Dipstick Negative (Negative); Leukocyte Esterase-Dipstick Negative /ul (Negative); Nitrite-Dipstick Negative (Negative); Occult Blood-Urine Negative /ul (Negative); Protein-Dipstick Negative (Negative); Specific Gravity, Urine 1.015 (1.002-1.030); Urine Bilirubin Dipstick Negative (Negative); Urine Clarity Clear (Clear); Urine Urobilinogen Normal (Normal)
[2020-02-20 17:52] LABS: Hyaline Cast 0-5 SEEN /lpf (0-5)
[2020-02-20 17:53] LABS: Vitamin D,25 Hydroxy 37.7 ng/mL
[2020-02-20 17:54] LABS: Absolute Lymphocyte Count 1.41 X10^3/uL (0.83-4.51); Absolute Neutrophil Count 4.1 X10^3/uL (2.0-7.7); Basophil# 0.04 X10^3/uL; Basophil% 0.7 % (0-1); Eosinophil# 0.06 X10^3/uL; Hematocrit 40.7 % (40-54); Hemoglobin 13.1 g/dL (13.0-16.5); Lymphocyte # 1.41 X10^3/ul (4.0); Lymphocyte % 23.1 % (19-41); Mean Corp Hgb Conc 32.2 g/dL (32-36); Mean Corpuscular Hgb 30.5 pg (27.0-32.0); Mean Corpuscular Volume 94.9 fL (80-94); Monocyte# 0.51 X10^3/uL; Monocyte% 8.3 % (0-10); NRBC Flagged by Analyzer 0 % (0-5); Neutrophil # 4.07 X10^3/uL (2.7-7.7); Neutrophil % 66.6 % (47-70); Platelet Count 222 K/mm3 (150-450); RBC Distribution Width CV 13.7 % (11.6-14.6); RBC Distribution Width SD 47.4 fl (35.1-43.9); Red Blood Count 4.29 M/mm3 (4.6-6.2); White Blood Count 6.1 K/mm3 (4.4-11.0)
[2020-02-20 18:01] LABS: Microalbumin,Random Urine 12.1 mg/L (NO RANGE EST.); Microalbumin:Creatinine Ratio 27.6 mg/g CRE (<30 mg/g CRE); Protein, Urine (Random) 9.5 mg/dL (<11.9); Protein:Creat Ratio 217 mg/g CRE (0-200)
[2020-02-20 18:04] LABS: Hemoglobin A1c 12.2 % (3.8-5.6)
[2020-02-20 18:06] LABS: ALB/GLOB Ratio 0.9 RATIO (0.9-2.4); AST(SGOT) 29 U/L (15-37); Alanine Aminotransfer ALT/SGPT 39 U/L (16-61); Albumin, Serum 3.1 g/dL (3.2-5.0); Alkaline Phosphatase 127 U/L (45-117); Anion Gap 5 (5-15); BUN 14 mg/dL (7-18); BUN/Creat Ratio 13.2 RATIO (10-20); Calcium,Total 8.2 mg/dL (8.5-10.1); Chloride 102 mmol/L (98-107); Cholesterol 171 mg/dL (200); Creatinine, Serum 1.06 mg/dL (0.70-1.30); EST Glomerular Filtration Rate 72 mL/min (>60); Est Glom Filt Rate - Afr Amer 87 mL/min (>60); Globulin 3.4 g/dL (2.2-4.2); Glucose 292 mg/dL (74-106); High Density Lipoprotein 30 mg/dL; Phosphorus 3.6 mg/dL (2.5-4.9); Potassium 3.9 mmol/L (3.5-5.1); Protein, Total 6.5 g/dL (6.4-8.2); Sodium Level 135 mmol/L (136-145); Triglycerides 204 mg/dL; Very Low Density Lipoprotein 41 mg/dL (5-40)
[2020-02-20 18:16] LABS: PTHIN 52.3 pg/mL (18.4-80.1)
== END ==
PROVIDERS: PCP Family Medicine; Referring Provider Family Medicine; Visit Provider Family Medicine
DX: I12.9 Hypertensive chronic kidney disease with stage 1 through stage 4 chronic kidney disease, or unspecified chronic kidney disease (principal); E78.5 Hyperlipidemia, unspecified; N18.3 Chronic kidney disease, stage 3 (moderate); E11.65 Type 2 diabetes mellitus with hyperglycemia; E55.9 Vitamin D deficiency, unspecified
CPT/HCPCS: 36415; 80053; 80061; 81001; 82043; 82306; 82570; 83036; 83970; 84100; 84156; 85025

== ENCOUNTER → 2020-06-11 10:26 | Outpatient (CLI) | payer MEDICARE, BC, SELFPAY ==
[2020-01-18 13:54] VITALS: BMI 24.5
[2020-06-11 12:21] LABS: Absolute Lymphocyte Count 1.02 X10^3/uL (0.83-4.51); Basophil# 0.03 X10^3/uL; Basophil% 0.6 % (0-1); Eosinophil# 0.05 X10^3/uL; Eosinophils% 0.9 % (0-5); Hematocrit 39.2 % (40-54); Hemoglobin 12.5 g/dL (13.0-16.5); Lymphocyte # 1.02 X10^3/ul (4.0); Lymphocyte % 18.8 % (19-41); Mean Corp Hgb Conc 31.9 g/dL (32-36); Mean Corpuscular Hgb 29.3 pg (27.0-32.0); Mean Platelet Vol. 10.1 fl (6.2-12.0); Monocyte# 0.38 X10^3/uL; NRBC Flagged by Analyzer 0 % (0-5); Neutrophil # 3.95 X10^3/uL (2.7-7.7); Neutrophil % 72.5 % (47-70); Platelet Count 216 K/mm3 (150-450); RBC Distribution Width CV 14.1 % (11.6-14.6); RBC Distribution Width SD 47.9 fl (35.1-43.9); Red Blood Count 4.26 M/mm3 (4.6-6.2); White Blood Count 5.4 K/mm3 (4.4-11.0)
[2020-06-11 12:36] LABS: Bacteria 0 SEEN /hpf (None Seen); Mucous, Urine 0 SEEN /hpf (<or=2+); Red Blood Cells-Urine 0 SEEN /hpf (0-5); Squamous Epithelial Cells - UA 0 SEEN /hpf (0-5); White Blood Cells 0 SEEN /hpf (0-5)
[2020-06-11 12:43] LABS: Vitamin D,25 Hydroxy 44.6 ng/mL
[2020-06-11 12:46] LABS: Hemoglobin A1c 9.7 % (3.8-5.6)
[2020-06-11 12:53] LABS: ALB/GLOB Ratio 0.8 RATIO (0.9-2.4); AST(SGOT) 16 U/L (15-37); Alanine Aminotransfer ALT/SGPT 30 U/L (16-61); Albumin, Serum 3.4 g/dL (3.2-5.0); Alkaline Phosphatase 192 U/L (45-117); Anion Gap 5 (5-15); BUN 19 mg/dL (7-18); BUN/Creat Ratio 17.9 RATIO (10-20); Calcium,Total 8.8 mg/dL (8.5-10.1); Chloride 103 mmol/L (98-107); Cholesterol 100 mg/dL (200); Creatinine, Serum 1.06 mg/dL (0.70-1.30); EST Glomerular Filtration Rate 72 mL/min (>60); Est Glom Filt Rate - Afr Amer 87 mL/min (>60); Glucose 364 mg/dL (74-106); High Density Lipoprotein 28 mg/dL; Potassium 3.9 mmol/L (3.5-5.1); Protein, Total 7.4 g/dL (6.4-8.2); Sodium Level 136 mmol/L (136-145); Triglycerides 105 mg/dL; Very Low Density Lipoprotein 21 mg/dL (5-40)
[2020-06-11 15:22] LABS: Color, Urine Yellow (Yellow); Glucose, Dipstick 1000 mg/dl (Normal); Ketone-Dipstick Negative (Negative); Leukocyte Esterase-Dipstick Negative /ul (Negative); Nitrite-Dipstick Negative (Negative); Occult Blood-Urine Negative /ul (Negative); Protein-Dipstick 15 mg/dl (Negative); Specific Gravity, Urine 1.015 (1.002-1.030); Urine Bilirubin Dipstick Negative (Negative); Urine Clarity Clear (Clear); Urine Urobilinogen Normal (Normal)
[2020-06-11 15:28] LABS: Hyaline Cast 0-5 SEEN /lpf (0-5)
[2020-06-11 15:57] LABS: Microalbumin,Random Urine 81.6 mg/L (NO RANGE EST.); Microalbumin:Creatinine Ratio 150.6 mg/g CRE (<30 mg/g CRE); Protein, Urine (Random) 26.6 mg/dL (<11.9); Protein:Creat Ratio 491 mg/g CRE (0-200)
[2020-06-12 08:59] LABS: GGTP 205 U/L (15-85)
== END ==
PROVIDERS: PCP Family Medicine; Referring Provider Family Medicine; Visit Provider Family Medicine
DX: I12.9 Hypertensive chronic kidney disease with stage 1 through stage 4 chronic kidney disease, or unspecified chronic kidney disease (principal); E11.65 Type 2 diabetes mellitus with hyperglycemia; E78.5 Hyperlipidemia, unspecified; N18.30 Chronic kidney disease, stage 3 unspecified
CPT/HCPCS: 36415; 80053; 80061; 81001; 82043; 82306; 82570; 82977; 83036; 84156; 85025

== ENCOUNTER → 2020-06-23 10:34 | Outpatient (CLI) | payer MEDICARE, BC, SELFPAY ==
[2020-01-18 13:54] VITALS: BMI 24.5
--- NOTE | 2020-06-23 10:37 | US_ITS ---
STUDY: ABDOMINAL ULTRASOUND - RIGHT UPPER QUADRANT REASON FOR VISIT: Male, 80 years old elevated liver enzymes TECHNIQUE: Ultrasound evaluation of the right upper quadrant was performed with real-time and static cortes-scale imaging. TECHNICAL QUALITY: Adequate. COMPARISON: None. FINDINGS: Liver: The liver measures 15 cm. There is increased echogenicity of the liver. The bile ducts are within normal limits. There is hepatic color flow. The direction of portal flow is hepatopetal. There is no demonstrated mass lesion. Gallbladder: Normal distended gallbladder. The gallbladder wall measures 2.4 mm. There is a negative sonographic Perez''s sign. There is no pericholecystic fluid. There are multiple echogenic structures within the gallbladder, consistent with multiple gallstones. Common Bile Duct (C.B.D.): The common bile duct measures 4.0 mm. Pancreas: There is no demonstrated pancreatic mass or cyst. Right Kidney: Normal size of the right kidney. There is right renal cortical thinning. Anechoic cyst of the right kidney measures 2.6 cm. Benign, incidental finding; no specific imaging workup recommended according to current ACR guidelines. There is no right hydronephrosis. US/Liver IMPRESSION: 1. Cholelithiasis without sonographic evidence of acute cholecystitis or biliary obstruction. 2. Increased echogenicity of the liver is nonspecific but most commonly associated with hepatic steatosis. No hepatic masses. Electronically Signed: Scotty Pfeiffer MD ([place]) at 8:17 EST , Service support ,
== END ==
PROVIDERS: PCP Family Medicine; Referring Provider Family Medicine; Visit Provider Family Medicine
DX: R74.8 Abnormal levels of other serum enzymes (principal)
CPT/HCPCS: 76705

== ENCOUNTER → 2020-09-11 11:16 | Outpatient (CLI) | payer MEDICARE, BC, SELFPAY ==
[2020-01-18 13:54] VITALS: BMI 24.5
[2020-09-11 12:51] LABS: Absolute Lymphocyte Count 1.18 X10^3/uL (0.83-4.51); Absolute Neutrophil Count 4.3 X10^3/uL (2.0-7.7); Basophil# 0.04 X10^3/uL; Basophil% 0.7 % (0-1); Eosinophil# 0.09 X10^3/uL; Eosinophils% 1.5 % (0-5); Hematocrit 41.3 % (40-54); Hemoglobin 13.4 g/dL (13.0-16.5); Lymphocyte # 1.18 X10^3/ul (4.0); Lymphocyte % 19.2 % (19-41); Mean Corp Hgb Conc 32.4 g/dL (32-36); Mean Corpuscular Hgb 29.5 pg (27.0-32.0); Mean Corpuscular Volume 90.8 fL (80-94); Mean Platelet Vol. 9.9 fl (6.2-12.0); Monocyte# 0.51 X10^3/uL; Monocyte% 8.3 % (0-10); NRBC Flagged by Analyzer 0 % (0-5); Neutrophil # 4.29 X10^3/uL (2.7-7.7); Platelet Count 232 K/mm3 (150-450); RBC Distribution Width CV 14.4 % (11.6-14.6); RBC Distribution Width SD 48.4 fl (35.1-43.9); Red Blood Count 4.55 M/mm3 (4.6-6.2); White Blood Count 6.1 K/mm3 (4.4-11.0)
[2020-09-11 13:03] LABS: Vitamin D,25 Hydroxy 59.8 ng/mL
[2020-09-11 13:17] LABS: Hemoglobin A1c 10.8 % (3.8-5.6)
[2020-09-11 13:20] LABS: ALB/GLOB Ratio 0.9 RATIO (0.9-2.4); AST(SGOT) 19 U/L (15-37); Alanine Aminotransfer ALT/SGPT 22 U/L (16-61); Albumin, Serum 3.7 g/dL (3.2-5.0); Alkaline Phosphatase 180 U/L (45-117); Anion Gap 7 (5-15); BUN 16 mg/dL (7-18); Calcium,Total 9.2 mg/dL (8.5-10.1); Chloride 105 mmol/L (98-107); Cholesterol 111 mg/dL (200); Creatinine, Serum 0.94 mg/dL (0.70-1.30); EST Glomerular Filtration Rate 82 mL/min (>60); Est Glom Filt Rate - Afr Amer 99 mL/min (>60); Globulin 3.9 g/dL (2.2-4.2); Glucose 95 mg/dL (74-106); High Density Lipoprotein 29 mg/dL; Magnesium 2.3 mg/dL (1.6-2.6); Phosphorus 3.5 mg/dL (2.5-4.9); Potassium 3.9 mmol/L (3.5-5.1); Protein, Total 7.6 g/dL (6.4-8.2); Sodium Level 139 mmol/L (136-145); Thyroid Stim Hormone (TSH) 2.04 uIU/mL (0.358-3.74); Triglycerides 135 mg/dL; Very Low Density Lipoprotein 27 mg/dL (5-40)
== END ==
PROVIDERS: PCP Family Medicine; Referring Provider Family Medicine; Visit Provider Family Medicine
DX: I12.9 Hypertensive chronic kidney disease with stage 1 through stage 4 chronic kidney disease, or unspecified chronic kidney disease (principal); E78.5 Hyperlipidemia, unspecified; E11.65 Type 2 diabetes mellitus with hyperglycemia; I48.0 Paroxysmal atrial fibrillation; N18.30 Chronic kidney disease, stage 3 unspecified
CPT/HCPCS: 36415; 80053; 80061; 82306; 83036; 83735; 83970; 84100; 84443; 85025

== ENCOUNTER → 2020-10-23 14:00 | Outpatient (CLI) | payer MEDICARE, BC, SELFPAY ==
[2020-01-18 13:54] VITALS: BMI 24.5
[2020-10-17 13:04] LABS: BUN 18 mg/dL (7-18); Creatinine, Serum 1.14 mg/dL (0.70-1.30); EST Glomerular Filtration Rate 66 mL/min (>60); Est Glom Filt Rate - Afr Amer 80 mL/min (>60)
--- NOTE | 2020-10-23 14:03 | CT_ITS ---
STUDY: CTA NECK WITH CONTRAST REASON FOR EXAM: Male, 80 years old. STENOSIS/DIABETES TYPE 2 RADIATION DOSAGE (If Supplied By Facility): CTDIvol = ( 15.20 ) mGy, DLP = ( 780.97 ) mGycm TECHNIQUE: CT angiography with multi-detector data acquisition was performed from the aortic arch to the skull base following intravenous administration of IV 100mL Isovue-370. MIP images were reconstructed from the axial data set. Post-processing of the angiographic images was performed, with multiplanar reformation and 3D reconstruction. Individualized dose optimization techniques were used for this CT. COMPARISON: None. FINDINGS: AORTIC ARCH: Normal visualized aortic arch. Normal origins of the brachiocephalic, left common carotid, and left subclavian arteries. RIGHT CAROTID ARTERIES: Normal right common carotid artery (CCA). There is extensive atherosclerotic plaque formation with severe narrowing of the right carotid bulb with a hemodynamically significant stenosis. There is extensive atherosclerotic plaque formation of the origin of the right internal carotid artery with an estimated stenosis of greater than 70%. Normal visualized cervical portion of the right internal carotid artery. Normal origin of the right external carotid artery (ECA). LEFT CAROTID ARTERIES: Normal left common carotid artery (CCA). There is moderate atherosclerotic plaque formation with moderate narrowing of the carotid bulb. There is moderate atherosclerotic plaque formation of the origin of the left internal carotid artery with an estimated stenosis of 50-69% stenosis. Normal visualized cervical portion of the left internal carotid artery. Normal origin of the left external carotid artery (ECA). VERTEBRAL ARTERIES: Normal bilateral vertebral arteries. CT/CTA Neck W/WO Contrast IMPRESSION: High-grade, greater than 70% stenosis of the right ICA origin. Moderate grade, 50-69% stenosis of the left ICA origin. Electronically Signed: Gabriele Thomas MD at 16:21 EDT , Service support ,
== END ==
PROVIDERS: PCP Family Medicine; Visit Provider Surgery Vascular Surgery
DX: I65.23 Occlusion and stenosis of bilateral carotid arteries (principal); E11.9 Type 2 diabetes mellitus without complications; I48.91 Unspecified atrial fibrillation
CPT/HCPCS: 36415; 70498; 82565; 84520; Q9967

== ENCOUNTER → 2020-11-19 05:54 | Outpatient (CLI) | payer MEDICARE, BC, SELFPAY ==
[2020-11-10 11:01] VITALS: BMI 24.9
--- NOTE | 2020-11-19 05:56 | ECHOCS_ITS ---
Reason For Study: CAD/ASHD Procedure This was a 2D Doppler, Color Flow transthoracic echocardiogram. The study was technically difficult. Contrast injection was performed. Exam performed in department. Left Ventricle Moderately dilated left ventricle. Moderately severe segmental systolic dysfunction (see wall motion). The estimated ejection fraction is 25 %. Unable to assess diastolic dysfunction. Basal inferoseptal: Hypokinetic. Basal anteroseptal: Hypokinetic. Mid-Anterior : Hypokinetic. Mid- Lateral : Hypokinetic. Mid-Posterior: Akinetic. Mid-Inferior: Akinetic. Mid-inferoseptal : Akinetic. Mid-anteroseptal : Akinetic. [place] : Akinetic. Right Ventricle Mildly dilated right ventricle. ICD or pacer leads identified within the right ventricle. Normal systolic function. Atria The left atrium is mildly enlarged. Normal right atrium. ICD or pacer leads identified within the right atrium. No doppler evidence for ASD. Mitral Valve An annuloplasty ring is noted in the mitral position. Mild to moderate (1-2) transvalvular insufficiency of the mitral valve. Tricuspid Valve Normal tricuspid valve. Moderately severe (3+) tricuspid valve insufficiency. Right ventricular systolic pressure estimated to be 54 mmHg. Aortic Valve Trisinus/trileaflet aortic valve. Mild diffuse aortic valve thickening. Moderate diffuse aortic valve calcification. Mild aortic stenosis. Trivial aortic valve insufficiency. Pulmonic Valve The pulmonic valve is not well visualized. Trivial pulmonic valve insufficiency. Great Vessels Normal sized aortic root. Pericardium/Pleural No pericardial effusion. Medication Diluted definity 3ml given slow IV push to enhance endocardial definition. MMode/2D Measurements & Calculations LVIDd: 6.0 cm IVSd: 0.86 cm LVOT diam: 2.0 cm LVIDs: 5.0 cm LVPWd: 0.79 cm RVDd: 5.1 cm FS: 17.3 % LVOT area: 3.2 cm2 Ao root diam: 3.1 cm LAV(MOD-bp): 56.7 ml LVAd ap4: 35.2 cm2 LAV(MOD-bp) Indexed: 31.7 ml/m2 LVLd ap4: 8.3 cm LAV(MOD-sp2): 50.1 ml EDV(MOD-sp4): 124.3 ml LAV(MOD-sp4): 59.7 ml EDV(sp4-el): 126.4 ml LVAs ap4: 31.5 cm2 LVLs ap4: 8.1 cm ESV(MOD-sp4): 101.0 ml ESV(sp4-el): 104.3 ml EF(MOD-sp4): 18.8 % EF(sp4-el): 17.5 % SV(MOD-sp4): 23.3 ml SV(sp4-el): 22.2 ml LA A4 area: 20.6 cm2 LA dimension(2D): 5.3 cm RA A4 area: 17.2 cm2 Doppler Measurements & Calculations MV V2 max: 167.2 cm/sec Ao V2 max: 185.0 cm/sec LV V1 max: 98.1 cm/sec MV max P.2 mmHg Ao max P.7 mmHg LV V1 max P.9 mmHg MV V2 mean: 69.4 cm/sec Ao V2 mean: 118.4 cm/sec MV mean P.8 mmHg Ao mean P.4 mmHg MV V2 VTI: 35.5 cm Ao V2 VTI: 38.6 cm DAMASO(V,D): 1.7 cm2 PA V2 max: 72.2 cm/sec TR max chyna: 339.8 cm/sec TR max P.2 mmHg ECHO/Echo Complete W/ Contrast Interpretation Summary The study was technically difficult. Contrast injection was performed. Moderately severe segmental systolic dysfunction (see wall motion). The estimated ejection fraction is 25 %. Mildly dilated right ventricle. The left atrium is mildly enlarged. An annuloplasty ring is noted in the mitral position. Mild to moderate (1-2) transvalvular insufficiency of the mitral valve. Moderately severe (3+) tricuspid valve insufficiency. Mild aortic stenosis. Trivial aortic valve insufficiency. Trivial pulmonic valve insufficiency. Right ventricular systolic pressure estimated to be 54 mmHg. Unable to assess diastolic dysfunction. ICD or pacer leads identified within the right atrium ICD or pacer leads identified within the right ventricle. Ordering Physician: Glenn Dowell Referring Physician: Jose Enrique Finney Performed By: Elissa Ervin, CASA, RVT
--- NOTE | 2020-11-19 17:51 | STRESSREP ---
Stress Test Report Date: 11-19-2020 Procedure: Pharmacologic stress nuclear imaging study Indications: CAD; PCI; CABG; status post mitral valve repair; cardiomyopathy; ICD; preoperative cardiovascular assessment Consent: Per the patient Procedure: The patient underwent pharmacologic (Regadenoson 0.4mg ) evaluation with a peak heart rate of 98 beats per minute (69%predicted maximal heart rate) and a peak blood pressure of 140/90 mmHg. The baseline ECG demonstrated an electronic ventricular paced rhythm. The peak pharmacologic ECG demonstrated no obvious ECG changes. There was a rare PVC during recovery. There was no complaint of chest discomfort during pharmacologic infusion or recovery. The examination was discontinued secondary to completion of protocol. Impression: 1. Pharmacologic (Regadenoson) evaluation 2. Peak pharmacologic ECG with with continued electronic ventricular paced rhythm. 3. There was a rare PVC during recovery. 4. Nuclear images pending Myocardial perfusion imaging study: Technique: The patient was injected with 11.8 millicuries of technetium 99m Cardiolite and subsequently rest SPECT Cardiolite nuclear imaging was obtained in the horizontal long, vertical long, and short axis views. The patient underwent pharmacologic (Regadenoson) evaluation with a peak heart rate of 98 beats per minute (69% percent predicted maximal heart rate) and a peak blood pressure of 140/90 mmHg. The patient was injected with 32.9 millicuries of technetium 99m Cardiolite and subsequently stress SPECT Cardiolite nuclear imaging was obtained in the horizontal long, vertical long, and short axis views. A gated Cardiolite study at peak stress was obtained. Interpretation: Rest and stress SPECT Cardiolite nuclear imaging status post realignment, normalization, and attenuation correction demonstrate the appearance of diminished absence of myocardial perfusion/tracer uptake in portions of the mid towards distal inferior/inferoapical segments and the mid towards distal anterior/anteroseptal, anteroapical, and septal apical segments without significant change between rest and stress. There is diminished end systolic thickening and brightening in the aforementioned areas. The gated Cardiolite study demonstrates diminished myocardial thickening and inward wall motion in the aforementioned areas. The reported LVEF is 29%. Impression: 1. Rest and stress SPECT Cardiolite nuclear imaging demonstrate myocardial perfusion changes appearing compatible with areas of previous myocardial injury/infarction involving portions of the inferior and inferoapical segments as well as the anterior, anteroseptal, anteroapical, and septal apical segments with no myocardial perfusion changes considered diagnostic for associated stress-induced myocardial ischemia. 2. The gated Cardiolite study reports an LVEF of 29%. This note was generated with [employer] software. It may contain incorrect words, spelling, and punctuation that were not noted in checking the note before signing.
== END ==
PROVIDERS: PCP Family Medicine; Referring Provider Internal Medicine Cardiovascular Disease; Visit Provider Internal Medicine Cardiovascular Disease
DX: I48.0 Paroxysmal atrial fibrillation (principal); I25.10 Atherosclerotic heart disease of native coronary artery without angina pectoris; Z95.1 Presence of aortocoronary bypass graft; I25.5 Ischemic cardiomyopathy; Z98.890 Other specified postprocedural states; Z95.810 Presence of automatic (implantable) cardiac defibrillator; I47.2 Ventricular tachycardia; E78.2 Mixed hyperlipidemia; I10 Essential (primary) hypertension
CPT/HCPCS: 78452; 93017; 93306; A9500; Q9957; A4216; C8929; J2785

== ENCOUNTER → 2021-01-02 13:34 | Outpatient (CLI) | payer MEDICARE, BC, SELFPAY ==
[2020-11-10 11:01] VITALS: BMI 24.9
--- NOTE | 2021-01-02 13:36 | RAD_ITS ---
STUDY: X-RAY - PELVIS AND BILATERAL HIPS REASON FOR EXAM: Male, 80 years old. HIP PAIN TECHNIQUE: AP view of the pelvis.? 2 views of the right hip, and 2 views of the left hip were obtained. COMPARISON: None. FINDINGS: There is a non-specific bowel gas pattern. Normal visualized soft tissue structures. Normal bilateral iliac wings, sacroiliac joints and visualized sacrum. Normal bilateral superior and inferior pubic rami. Normal pubic symphysis. Normal bilateral ischial tuberosities. Healed fracture of the intertrochanteric right femur after open reduction internal fixation with femoral neck compression screws and an intramedullary tony. Normal right acetabulum. Normal right hip joint. Normal visualized left femoral head. Normal left acetabulum. Normal left hip joint. RAD/Hips B/L min 2 views w/ Pelvis IMPRESSION: 1. Healed fracture of the intertrochanteric right femur after open reduction internal fixation. 2. Normal left hip joint. Electronically Signed: Branden Patel MD at 6:44 EDT Tel , Service support ,
--- NOTE | 2021-01-02 13:36 | RAD_ITS ---
HISTORY: FACET ARTHROPATHY. TECHNIQUE: XR Spine Lumbar 2 or 3 Views. # of images incl. paperwork: 3. COMPARISON: None. FINDINGS: VERTEBRAE: 5 lumbar vertebral bodies. Mild chronic loss of height in the lower thoracic and lumbar vertebral bodies. No acute fracture identified. Degenerative changes of the posterior elements. Osteopenia noted. ALIGNMENT: Mild anterolisthesis of L5-S1 with possible spondylolisthesis. INTERVERTEBRAL DISCS: Degenerative endplate changes and intervertebral disc space narrowing particular at L5-S1. RAD/Lumbar Spine 2 or 3 Views IMPRESSION: Mild anterolisthesis of L5-S1, with possible spondylolysis. Multilevel degenerative changes. at 1220 Reported and signed by: Lisa Scales MD Electronically Signed: Lisa Scales MD at 12:18 EDT Tel , Service support ,
== END ==
PROVIDERS: PCP Family Medicine; Referring Provider Family Medicine; Visit Provider Family Medicine
DX: M25.559 Pain in unspecified hip (principal); M47.819 Spondylosis without myelopathy or radiculopathy, site unspecified
CPT/HCPCS: 72100; 73521

== ENCOUNTER → 2021-01-27 11:14 | Outpatient (CLI) | payer MEDICARE, BC, SELFPAY ==
[2021-01-27 11:23] LABS: Bacteria 0 SEEN /hpf (None Seen); Mucous, Urine 0 SEEN /hpf (<or=2+); Red Blood Cells-Urine 0 SEEN /hpf (0-5); Squamous Epithelial Cells - UA 0 SEEN /hpf (0-5); White Blood Cells 0 SEEN /hpf (0-5)
[2021-01-27 15:20] LABS: Absolute Lymphocyte Count 1.19 X10^3/uL (0.83-4.51); Absolute Neutrophil Count 4.1 X10^3/uL (2.0-7.7); Basophil# 0.03 X10^3/uL; Basophil% 0.5 % (0-1); Eosinophil# 0.09 X10^3/uL; Eosinophils% 1.5 % (0-5); Hematocrit 41.9 % (40-54); Hemoglobin 13.5 g/dL (13.0-16.5); Lymphocyte # 1.19 X10^3/ul (0.83-4.51); Lymphocyte % 20.1 % (19-41); Mean Corp Hgb Conc 32.2 g/dL (32-36); Mean Corpuscular Hgb 30.4 pg (27.0-32.0); Mean Corpuscular Volume 94.4 fL (80-94); Monocyte# 0.53 X10^3/uL; NRBC Flagged by Analyzer 0 % (0-5); Neutrophil # 4.06 X10^3/uL (2.7-7.7); Neutrophil % 68.7 % (47-70); Platelet Count 219 K/mm3 (150-450); RBC Distribution Width CV 14.4 % (11.6-14.6); RBC Distribution Width SD 49.8 fl (35.1-43.9); Red Blood Count 4.44 M/mm3 (4.6-6.2); White Blood Count 5.9 K/mm3 (4.4-11.0)
[2021-01-27 15:27] LABS: Color, Urine Yellow (Yellow); Glucose, Dipstick 1000 mg/dl (Normal); Ketone-Dipstick Negative (Negative); Leukocyte Esterase-Dipstick Negative /ul (Negative); Nitrite-Dipstick Negative (Negative); Occult Blood-Urine Negative /ul (Negative); Protein-Dipstick Negative (Negative); Specific Gravity, Urine 1.015 (1.002-1.030); Urine Bilirubin Dipstick Negative (Negative); Urine Clarity Clear (Clear); Urine Urobilinogen Normal (Normal)
[2021-01-27 16:08] LABS: ALB/GLOB Ratio 1.1 RATIO (0.9-2.4); AST(SGOT) 30 U/L (15-37); Alanine Aminotransfer ALT/SGPT 38 U/L (16-61); Albumin, Serum 3.9 g/dL (3.2-5.0); Alkaline Phosphatase 140 U/L (45-117); Anion Gap 5 (5-15); BUN 23 mg/dL (7-18); BUN/Creat Ratio 19.8 RATIO (10-20); Calcium,Total 8.9 mg/dL (8.5-10.1); Chloride 105 mmol/L (98-107); Cholesterol 132 mg/dL (200); Creatinine, Serum 1.16 mg/dL (0.70-1.30); EST Glomerular Filtration Rate 64 mL/min (>60); Est Glom Filt Rate - Afr Amer 78 mL/min (>60); Globulin 3.4 g/dL (2.2-4.2); Glucose 270 mg/dL (74-106); High Density Lipoprotein 31 mg/dL; Magnesium 2.3 mg/dL (1.6-2.6); Phosphorus 3.7 mg/dL (2.5-4.9); Potassium 4.3 mmol/L (3.5-5.1); Protein, Total 7.3 g/dL (6.4-8.2); Sodium Level 138 mmol/L (136-145); Triglycerides 140 mg/dL; Very Low Density Lipoprotein 28 mg/dL (5-40)
[2021-01-27 16:10] LABS: Microalbumin,Random Urine 13.8 mg/L (NO RANGE EST.); Microalbumin:Creatinine Ratio 25.4 mg/g CRE (<30 mg/g CRE); Protein, Urine (Random) 7.2 mg/dL (<11.9); Protein:Creat Ratio 132 mg/g CRE (0-200)
[2021-01-28 08:34] LABS: PTHIN 53.8 pg/mL (18.4-80.1)
[2021-01-28 09:52] LABS: Hemoglobin A1c 10.1 % (3.8-5.6)
== END ==
PROVIDERS: PCP Family Medicine; Visit Provider Family Medicine
DX: E55.9 Vitamin D deficiency, unspecified (principal); N18.30 Chronic kidney disease, stage 3 unspecified; E11.69 Type 2 diabetes mellitus with other specified complication; I48.0 Paroxysmal atrial fibrillation; E11.29 Type 2 diabetes mellitus with other diabetic kidney complication
CPT/HCPCS: 36415; 80053; 80061; 81001; 82043; 82306; 82570; 83036; 83735; 83970; 84100; 84156; 85025

== ENCOUNTER → 2021-05-29 10:51 | Outpatient (CLI) | payer MEDICARE, BC, SELFPAY ==
[2021-05-29 12:30] LABS: Vitamin D,25 Hydroxy 61.3 ng/mL
[2021-05-29 12:34] LABS: ALB/GLOB Ratio 0.9 RATIO (0.9-2.4); AST(SGOT) 21 U/L (15-37); Alanine Aminotransfer ALT/SGPT 28 U/L (16-61); Albumin, Serum 3.2 g/dL (3.2-5.0); Alkaline Phosphatase 166 U/L (45-117); Anion Gap 5 (5-15); BUN 16 mg/dL (7-18); BUN/Creat Ratio 14.4 RATIO (10-20); Calcium,Total 8.8 mg/dL (8.5-10.1); Chloride 103 mmol/L (98-107); Cholesterol 131 mg/dL (200); Creatinine, Serum 1.11 mg/dL (0.70-1.30); EST Glomerular Filtration Rate 68 mL/min (>60); Est Glom Filt Rate - Afr Amer 82 mL/min (>60); Globulin 3.7 g/dL (2.2-4.2); Glucose 270 mg/dL (74-106); High Density Lipoprotein 30 mg/dL; Magnesium 2.1 mg/dL (1.6-2.6); Potassium 4.3 mmol/L (3.5-5.1); Protein, Total 6.9 g/dL (6.4-8.2); Sodium Level 138 mmol/L (136-145); Triglycerides 112 mg/dL; Very Low Density Lipoprotein 22 mg/dL (5-40)
[2021-05-29 13:11] LABS: Hemoglobin A1c 8.3 % (3.8-5.6)
== END ==
PROVIDERS: PCP Family Medicine; Referring Provider Family Medicine; Visit Provider Family Medicine
DX: E11.59 Type 2 diabetes mellitus with other circulatory complications (principal); E11.65 Type 2 diabetes mellitus with hyperglycemia; E55.9 Vitamin D deficiency, unspecified
CPT/HCPCS: 36415; 80053; 80061; 82306; 83036; 83735

== ENCOUNTER → 2021-06-16 18:31 | Outpatient (CLI) | payer MEDICARE, BC, SELFPAY ==
[2021-06-16 20:32] LABS: Probe Check PASS; Specimen Processing Control PASS
== END ==
PROVIDERS: PCP Family Medicine; Visit Provider Family Medicine
DX: B34.9 Viral infection, unspecified (principal)
CPT/HCPCS: 87635; U0005; U0003

== ENCOUNTER 2021-11-11 08:23 | Outpatient (CLI) | payer MEDICARE, BC, SELFPAY ==
[2021-11-11 08:34] LABS: Bacteria 0 SEEN /hpf (None Seen); Mucous, Urine 0 SEEN /hpf (<or=2+); Red Blood Cells-Urine 0 SEEN /hpf (0-5); Squamous Epithelial Cells - UA 0 SEEN /hpf (0-5); White Blood Cells 0 SEEN /hpf (0-5)
[2021-11-11 10:23] LABS: Absolute Lymphocyte Count 0.85 X10^3/uL (0.83-4.51); Absolute Neutrophil Count 3.8 X10^3/uL (2.0-7.7); Basophil# 0.03 X10^3/uL; Basophil% 0.6 % (0-1); Eosinophil# 0.06 X10^3/uL; Eosinophils% 1.1 % (0-5); Hematocrit 37.1 % (40-54); Hemoglobin 12.4 g/dL (13.0-16.5); Lymphocyte # 0.85 X10^3/ul (0.83-4.51); Lymphocyte % 16.2 % (19-41); Mean Corp Hgb Conc 33.4 g/dL (32-36); Mean Corpuscular Hgb 31.2 pg (27.0-32.0); Mean Corpuscular Volume 93.2 fL (80-94); Mean Platelet Vol. 9.8 fl (6.2-12.0); Monocyte# 0.48 X10^3/uL; Monocyte% 9.2 % (0-10); NRBC Flagged by Analyzer 0 % (0-5); Neutrophil % 72.5 % (47-70); Platelet Count 179 K/mm3 (150-450); RBC Distribution Width CV 14.3 % (11.6-14.6); RBC Distribution Width SD 48.8 fl (35.1-43.9); Red Blood Count 3.98 M/mm3 (4.6-6.2); White Blood Count 5.2 K/mm3 (4.4-11.0)
[2021-11-11 10:32] LABS: Color, Urine Yellow (Yellow); Glucose, Dipstick 100 mg/dl (Normal); Ketone-Dipstick Negative (Negative); Leukocyte Esterase-Dipstick Negative /ul (Negative); Nitrite-Dipstick Negative (Negative); Occult Blood-Urine Negative /ul (Negative); Protein-Dipstick Negative (Negative); Specific Gravity, Urine 1.015 (1.002-1.030); Urine Bilirubin Dipstick Negative (Negative); Urine Clarity Clear (Clear); Urine Urobilinogen Normal (Normal)
[2021-11-11 10:42] LABS: Vitamin D,25 Hydroxy 63.8 ng/mL
[2021-11-11 10:45] LABS: ALB/GLOB Ratio 1.1 RATIO (0.9-2.4); AST(SGOT) 20 U/L (15-37); Alanine Aminotransfer ALT/SGPT 24 U/L (16-61); Albumin, Serum 3.5 g/dL (3.2-5.0); Alkaline Phosphatase 122 U/L (45-117); Anion Gap 6 (5-15); BUN 17 mg/dL (7-18); BUN/Creat Ratio 15.9 RATIO (10-20); Calcium,Total 8.7 mg/dL (8.5-10.1); Chloride 106 mmol/L (98-107); Cholesterol 93 mg/dL (200); Creatinine, Serum 1.07 mg/dL (0.70-1.30); EST Glomerular Filtration Rate 71 mL/min (>60); Est Glom Filt Rate - Afr Amer 85 mL/min (>60); Globulin 3.3 g/dL (2.2-4.2); Glucose 245 mg/dL (74-106); High Density Lipoprotein 31 mg/dL; Phosphorus 3.3 mg/dL (2.5-4.9); Potassium 4.4 mmol/L (3.5-5.1); Protein, Total 6.8 g/dL (6.4-8.2); Sodium Level 137 mmol/L (136-145); Thyroid Stim Hormone (TSH) 1.72 uIU/mL (0.358-3.74); Triglycerides 73 mg/dL; Very Low Density Lipoprotein 15 mg/dL (5-40)
[2021-11-11 10:49] LABS: PTHIN 49.2 pg/mL (18.4-80.1)
[2021-11-11 10:50] LABS: Hemoglobin A1c 11.6 % (3.8-5.6)
[2021-11-11 10:53] LABS: Microalbumin,Random Urine 20.5 mg/L (NO RANGE EST.); Microalbumin:Creatinine Ratio 46.5 mg/g CRE (<30 mg/g CRE); Protein, Urine (Random) 9.1 mg/dL (<11.9); Protein:Creat Ratio 206 mg/g CRE (0-200)
== END 2021-11-11 23:59 | disposition home or self-care (01) ==
LOC: MFPLAB 08:28
PROVIDERS: PCP Family Medicine; Referring Provider Family Medicine; Visit Provider Family Medicine
DX: I48.0 Paroxysmal atrial fibrillation (principal); E11.69 Type 2 diabetes mellitus with other specified complication; E11.22 Type 2 diabetes mellitus with diabetic chronic kidney disease; N18.30 Chronic kidney disease, stage 3 unspecified; E55.9 Vitamin D deficiency, unspecified
CPT/HCPCS: 36415; 80053; 80061; 81001; 82043; 82306; 82570; 83036; 83735; 83970; 84100; 84156; 84443; 85025

== ENCOUNTER → 2022-05-07 | Outpatient (CLI) | payer MEDICARE, BC, SELFPAY ==
[2022-05-07 12:11] LABS: Absolute Neutrophil Count 3.9 X10^3/uL (2.0-7.7); Basophil# 0.04 X10^3/uL; Basophil% 0.7 % (0-1); Eosinophil# 0.07 X10^3/uL; Eosinophils% 1.3 % (0-5); Hematocrit 40.6 % (40-54); Hemoglobin 13.1 g/dL (13.0-16.5); Lymphocyte % 16.8 % (19-41); Mean Corp Hgb Conc 32.3 g/dL (32-36); Mean Corpuscular Hgb 30.5 pg (27.0-32.0); Mean Corpuscular Volume 94.4 fL (80-94); Mean Platelet Vol. 10.1 fl (6.2-12.0); Monocyte% 7.5 % (0-10); NRBC Flagged by Analyzer 0 % (0-5); Neutrophil # 3.93 X10^3/uL (2.7-7.7); Neutrophil % 73.3 % (47-70); Platelet Count 207 K/mm3 (150-450); RBC Distribution Width CV 14.5 % (11.6-14.6); RBC Distribution Width SD 49.8 fl (35.1-43.9); White Blood Count 5.4 K/mm3 (4.4-11.0)
[2022-05-07 12:58] LABS: PTHIN 62.7 pg/mL (18.4-80.1)
[2022-05-07 13:01] LABS: ALB/GLOB Ratio 0.9 RATIO (0.9-2.4); AST(SGOT) 29 U/L (15-37); Alanine Aminotransfer ALT/SGPT 38 U/L (16-61); Albumin, Serum 3.4 g/dL (3.2-5.0); Alkaline Phosphatase 130 U/L (45-117); Anion Gap 6 (5-15); BUN 28 mg/dL (7-18); BUN/Creat Ratio 21.9 RATIO (10-20); Calcium,Total 8.6 mg/dL (8.5-10.1); Chloride 104 mmol/L (98-107); Cholesterol 113 mg/dL (200); Creatinine, Serum 1.28 mg/dL (0.70-1.30); EST Glomerular Filtration Rate 57 mL/min (>60); Est Glom Filt Rate - Afr Amer 69 mL/min (>60); Globulin 3.7 g/dL (2.2-4.2); Glucose 341 mg/dL (74-106); High Density Lipoprotein 30 mg/dL; Potassium 4.7 mmol/L (3.5-5.1); Protein, Total 7.1 g/dL (6.4-8.2); Sodium Level 138 mmol/L (136-145); Triglycerides 96 mg/dL; Very Low Density Lipoprotein 19 mg/dL (5-40)
[2022-05-07 13:04] LABS: Vitamin D,25 Hydroxy 56.1 ng/mL
== END | disposition home or self-care (01) ==
LOC: MFPLAB 10:49
PROVIDERS: PCP Family Medicine; Referring Provider Family Medicine; Visit Provider Family Medicine
DX: E55.9 Vitamin D deficiency, unspecified (principal); E11.69 Type 2 diabetes mellitus with other specified complication; N18.30 Chronic kidney disease, stage 3 unspecified
CPT/HCPCS: 36415; 80053; 80061; 82306; 83036; 83970; 85025

== ENCOUNTER → 2022-09-02 | Outpatient (CLI) | payer MEDICARE, BC, SELFPAY ==
--- NOTE | 2022-09-02 09:34 | ECHOCS_ITS ---
Reason For Study: Dyspnea/SOB Procedure This was a 2D Doppler, Color Flow transthoracic echocardiogram. The study was technically difficult. Contrast injection was performed. Exam performed in department. Left Ventricle Mildly dilated left ventricle. Severe segmental systolic dysfunction (see wall motion). The estimated ejection fraction is 20 %. Stage 3 diastolic dysfunction. Basal inferoseptal: Hypokinetic. Basal anteroseptal: Hypokinetic. Mid-Anterior : Hypokinetic. Mid-Lateral : Hypokinetic. Mid- Posterior: Akinetic. Mid-Inferior: Akinetic. Mid-inferoseptal : Hypokinetic. Mid-anteroseptal : Akinetic. [place] : Akinetic. Right Ventricle Mildly dilated right ventricle. ICD or pacer leads identified within the right ventricle. Normal systolic function. Atria The left atrium is mildly enlarged. The right atrium is mildly enlarged. ICD or pacer leads identified within the right atrium. No doppler evidence for ASD. Mitral Valve An annuloplasty ring is noted in the mitral position. MIld (1+) transvalvular insufficiency of the mitral valve. Tricuspid Valve Normal tricuspid valve. Moderately severe (3+) tricuspid valve insufficiency. Right ventricular systolic pressure estimated to be 63 mmHg. Aortic Valve Trisinus/trileaflet aortic valve. Mild diffuse aortic valve thickening. Moderate diffuse aortic valve calcification. Mild to moderate aortic stenosis. Pulmonic Valve The pulmonic valve is not well visualized. Mild (1+) pulmonic valve insufficiency. Great Vessels The aortic valve is not well visualized. Pericardium/Pleural No pericardial effusion. Medication 22 gauge I.V. with prn adaptor inserted into right arm. Diluted definity 2.5ml given slow IV push to enhance endocardial definition. MMode/2D Measurements & Calculations LVIDd: 5.6 cm IVSd: 0.69 cm LVOT diam: 2.0 cm LVIDs: 4.7 cm LVPWd: 1.1 cm RVDd: 5.0 cm FS: 17.0 % LVOT area: 3.0 cm2 LA dimension: 4.9 cm LAV(MOD-bp): 66.0 ml LA A4 area: 20.0 cm2 LAV(MOD-bp) Indexed: 36.9 ml/m2 LAV(MOD-sp2): 67.9 ml LAV(MOD-sp4): 58.0 ml RA A4 area: 21.0 cm2 Time Measurements MV dec time: 0.20 sec Doppler Measurements & Calculations MV E max chyna: 125.5 cm/sec MV V2 max: 153.8 cm/sec MV A max chyna: 24.0 cm/sec MV max P.5 mmHg MV dec slope: 628.4 cm/sec2 MV E/A: 5.2 MV V2 mean: 75.6 cm/sec MV mean P.0 mmHg MV V2 VTI: 36.6 cm MVA(VTI): 1.3 cm2 Ao V2 max: 170.6 cm/sec LV V1 max: 94.1 cm/sec MR max chyna: 459.1 cm/sec Ao max P.7 mmHg LV V1 max P.6 mmHg MR max P.3 mmHg Ao V2 mean: 115.1 cm/sec LV V1 mean P.9 mmHg Ao mean P.1 mmHg LV V1 mean: 64.2 cm/sec Ao V2 VTI: 35.3 cm LV V1 VTI: 16.0 cm AV (velocity ratio): 0.45 DAMASO(I,D): 1.4 cm2 DAMASO(V,D): 1.7 cm2 SV(LVOT): 48.5 ml PA V2 max: 109.9 cm/sec TR max chyna: 370.0 cm/sec TR max P.8 mmHg ECHO/Echo Complete W/ Contrast Interpretation Summary The study was technically difficult. Contrast injection was performed. Mildly dilated left ventricle. Severe segmental systolic dysfunction (see wall motion). The estimated ejection fraction is 20 %. Mildly dilated right ventricle. The left atrium is mildly enlarged. The right atrium is mildly enlarged. An annuloplasty ring is noted in the mitral position. MIld (1+) transvalvular insufficiency of the mitral valve. Moderately severe (3+) tricuspid valve insufficiency. Mild to moderate aortic stenosis. Mild (1+) pulmonic valve insufficiency. Right ventricular systolic pressure estimated to be 63 mmHg. Stage 3 diastolic dysfunction. ICD or pacer leads identified within the right atrium ICD or pacer leads identified within the right ventricle. Ordering Physician: Glenn Dowell Referring Physician: Glenn Dowell Performed By: Sam River RCS
== END | disposition home or self-care (01) ==
PROVIDERS: PCP Family Medicine; Referring Provider Internal Medicine Cardiovascular Disease; Visit Provider Internal Medicine Cardiovascular Disease
DX: R06.02 Shortness of breath (principal); R06.09 Other forms of dyspnea
CPT/HCPCS: 93306; Q9957; A4216; C8929

== ENCOUNTER → 2022-10-20 | Outpatient (CLI) | payer MEDICARE, BC, SELFPAY ==
[2022-10-20 15:40] LABS: Absolute Lymphocyte Count 1.06 X10^3/uL (0.83-4.51); Absolute Neutrophil Count 5.5 X10^3/uL (2.0-7.7); Basophil# 0.04 X10^3/uL; Basophil% 0.5 % (0-1); Eosinophil# 0.07 X10^3/uL; Hematocrit 41.3 % (40-54); Hemoglobin 13.4 g/dL (13.0-16.5); Lymphocyte # 1.06 X10^3/ul (0.83-4.51); Lymphocyte % 14.5 % (19-41); Mean Corp Hgb Conc 32.4 g/dL (32-36); Mean Corpuscular Hgb 30.9 pg (27.0-32.0); Mean Corpuscular Volume 95.2 fL (80-94); Mean Platelet Vol. 10.2 fl (6.2-12.0); Monocyte# 0.64 X10^3/uL; Monocyte% 8.8 % (0-10); NRBC Flagged by Analyzer 0 % (0-5); Neutrophil # 5.46 X10^3/uL (2.7-7.7); Neutrophil % 74.9 % (47-70); Platelet Count 207 K/mm3 (150-450); RBC Distribution Width SD 49.3 fl (35.1-43.9); Red Blood Count 4.34 M/mm3 (4.6-6.2); White Blood Count 7.3 K/mm3 (4.4-11.0)
[2022-10-20 16:15] LABS: ALB/GLOB Ratio 1.1 RATIO (0.9-2.4); AST(SGOT) 40 U/L (15-37); Alanine Aminotransfer ALT/SGPT 60 U/L (16-61); Albumin, Serum 3.9 g/dL (3.2-5.0); Alkaline Phosphatase 140 U/L (45-117); Anion Gap 10 (5-15); BUN 23 mg/dL (7-18); BUN/Creat Ratio 17.7 RATIO (10-20); Calcium,Total 9.2 mg/dL (8.5-10.1); Chloride 100 mmol/L (98-107); Cholesterol 103 mg/dL (200); EST Glomerular Filtration Rate 56 mL/min (>60); Est Glom Filt Rate - Afr Amer 68 mL/min (>60); Globulin 3.5 g/dL (2.2-4.2); Glucose 231 mg/dL (74-106); High Density Lipoprotein 34 mg/dL; Magnesium 2.5 mg/dL (1.6-2.6); Phosphorus 4.2 mg/dL (2.5-4.9); Protein, Total 7.4 g/dL (6.4-8.2); Sodium Level 136 mmol/L (136-145); Triglycerides 92 mg/dL; Very Low Density Lipoprotein 18 mg/dL (5-40); Vitamin D,25 Hydroxy 58.2 ng/mL
[2022-10-20 17:29] LABS: Microalbumin,Random Urine 29.3 mg/L (NO RANGE EST.); Microalbumin:Creatinine Ratio 93.3 mg/g CRE (<30 mg/g CRE)
[2022-10-21 08:15] LABS: PTHIN 69.8 pg/mL (18.4-80.1)
== END | disposition home or self-care (01) ==
LOC: MFPLAB 11:40
PROVIDERS: PCP Family Medicine; Referring Provider Family Medicine; Visit Provider Family Medicine
DX: E11.65 Type 2 diabetes mellitus with hyperglycemia (principal); E11.22 Type 2 diabetes mellitus with diabetic chronic kidney disease; I48.0 Paroxysmal atrial fibrillation; N18.30 Chronic kidney disease, stage 3 unspecified; E55.9 Vitamin D deficiency, unspecified
CPT/HCPCS: 36415; 80053; 80061; 82043; 82306; 82570; 83036; 83735; 83970; 84100; 85025

== ENCOUNTER → 2023-01-11 | Outpatient (CLI) | payer MEDICARE, BC, SELFPAY ==
--- NOTE | 2023-01-11 10:50 | CDU_ITS ---
Reason For Study: carotid stenosis Rt. Velocities/BP Lt. Velocities/BP Prox CCA 74.0/14.5 cm/sec. Prox CCA 89.1/19.2 cm/sec. Mid CCA 59.8/19.2 cm/sec. Mid CCA 80.6/18.2 cm/sec. Dist CCA 77.8/20.1 cm/sec. Dist CCA 68.3/20.1 cm/sec. Prox ICA 53.1/15.7 cm/sec. Prox ICA 78.7/20.1 cm/sec. Mid ICA 83.9/25.6 cm/sec. Mid ICA 83.4/28.6 cm/sec. Dist ICA 90.5/24.5 cm/sec. Dist ICA 61.7/23.0 cm/sec. Rt. ICA/CCA = 1.5. Lt. ICA/CCA = 1.0. Prox ECA 88.3/16.8 cm/sec. Prox ECA 76.8/16.3 cm/sec. Rt. Vert. 16.3 cm/sec. Lt. Vert. 71.1/19.2 cm/sec. Right Extracranial There is heterogeneous, irregular atherosclerotic plaque noted in the right common carotid artery. There is heterogeneous, irregular atherosclerotic plaque noted in the right internal carotid artery. There is heterogeneous, irregular atherosclerotic plaque noted in the right external carotid artery. Antegrade flow is noted in the right vertebral artery. Left Extracranial There is homogeneous, smooth atherosclerotic plaque noted in the left common carotid artery. There is heterogeneous, irregular atherosclerotic plaque noted in the left internal carotid artery. There is heterogeneous, irregular atherosclerotic plaque noted in the left external carotid artery. Antegrade flow is noted in the left vertebral artery. Procedure Carotid Duplex 11130. This is a Carotid Duplex examination using B-mode, color flow and specral Doppler. The exam was diagnostic. Exam performed in department. VL/Carotid Duplex Ultrasound Interpretation Summary Mild (<50%) stenosis right extracranial internal carotid. Mild (<50%) stenosis left extracranial internal carotid. Flow within the vertebral arteries is antegrade bilaterally. Ordering Physician: Chandler Ly Performed By: Seferino Pedersen RVT
== END | disposition home or self-care (01) ==
LOC: CVS 10:49
PROVIDERS: PCP Family Medicine; Referring Provider Surgery Vascular Surgery; Visit Provider Surgery Vascular Surgery
DX: I65.23 Occlusion and stenosis of bilateral carotid arteries (principal)
CPT/HCPCS: 93880

== ENCOUNTER 2023-02-23 10:15 | Outpatient (RCR) | payer MEDICARE, BC, SELFPAY ==
[2023-02-16 09:04] VITALS: RESP 16; TEMP 36.3
--- NOTE | 2023-02-16 10:16 | PCM.WC.HP ---
History of Present Illness Date of Service: 02/16/23 Chief Complaint: Follow-up on his left ear laceration from a tree branch and right lateral foot open wound from a blister that was over 1 month old. 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 He has poor hygiene habits. Had developed a blister from his shoe on the right lateral foot that is quite long about 4 cm x 1 cm wide. States it bled like everything because he is on Eliquis. Seeing bleeds stop to get the bleeding under control. Now has developed some slough and fibrous material in the center with I think over a venous vein. Patient has numbing and has no feeling in his lower leg but he does say his feet throb. He does have many comorbidities such as A-fib diabetes does have a defibrillator high cholesterol BPH [facility] Medical History (Updated 02/16/23 @ 11:22 by Aliya Jones CHUCKING MACHINE OPERATOR, CHUCKING MACHINE OPERATOR-C) Acute blood loss anemia Atherosclerosis of [place] coronary artery of [place] heart without angina pectoris Essential (primary) hypertension Hypokalemia due to loss of potassium Ischemic cardiomyopathy Mixed hyperlipidemia Muscle cramps Nonrheumatic mitral valve insufficiency NSVT (nonsustained ventricular tachycardia) Paroxysmal atrial fibrillation Type 2 diabetes mellitus without complications Upper GI bleed Home Medications multivitamin with folic acid 400 mcg tablet 1 tab PO DAILY supplement 04/11/17 [History Last Taken Unknown] insulin lispro 100 unit/mL subcutaneous cartridge 10 unit subcut TID blood sugar 03/17/18 [History Last Taken 11/12/18 07:00] fluticasone propionate 50 mcg/actuation nasal spray,suspension (Allergy Relief (fluticasone)) 1 spray intranasal DAILY 11/10/20 [History Last Taken Unknown] insulin detemir U-100 100 unit/mL (3 mL) subcutaneous pen 32 unit subcut QHS diabetes 11/10/20 [History Last Taken Unknown] tamsulosin 0.4 mg capsule 0.4 mg PO DAILY 11/10/20 [History Last Taken Unknown] zolpidem 5 mg tablet (Ambien) 5 mg PO QHS PRN insomnia 11/10/20 [History Last Taken Unknown] apixaban 5 mg tablet 5 mg PO BID #180 tabs 02/24/21 [Rx Last Taken Unknown] carvedilol 12.5 mg tablet 12.5 mg PO BID #180 tabs 02/24/21 [Rx Last Taken Unknown] isosorbide mononitrate 30 mg tablet,extended release 24 hr 30 mg PO DAILY #90 tabs 05/31/22 [Rx Last Taken Unknown] rosuvastatin 40 mg tablet 40 mg PO DAILY #30 tabs 06/23/22 [Rx Last Taken Unknown] furosemide 40 mg tablet 40 mg PO BID diuretic #180 tabs 12/31/22 [Rx Last Taken Unknown] calcium carbonate 600 mg-vitamin D3 10 mcg (400 unit) tablet (Calcium 600 + D(3)) 1 tab PO DAILY 02/16/23 [History Last Taken Unknown] cyclobenzaprine 5 mg tablet 5 mg PO TID PRN muscle spasm 02/16/23 [History Last Taken Unknown] mirtazapine 15 mg tablet 15 mg PO QHS 02/16/23 [History Last Taken Unknown] potassium chloride 20 mEq tablet,extended release(part/cryst) 20 meq PO BID supplement 02/16/23 [History Last Taken Unknown] Allergy/AdvReac Type Severity Reaction Status Date / Time atorvastatin Allergy Severe myalgias, Verified 09/24/22 14:37 tongue swelling captopril Allergy Severe tongue Verified 02/16/23 09:53 swelling rivaroxaban [From Xarelto] Allergy Severe tongue Verified 09/24/22 14:37 swelling glimepiride Allergy Intermediate mouth Verified 02/16/23 09:53 blisters levofloxacin [From Levaquin] Allergy Intermediate leg pain Verified 02/16/23 09:53 dapagliflozin [From Farxiga] Allergy Unknown Rash Verified 09/24/22 14:37 azithromycin [From Zithromax] AdvReac Severe blisters Verified 02/16/23 09:53 metolazone AdvReac Severe Rash/Itchin Verified 09/24/22 14:37 g pravastatin AdvReac Intermediate itching Verified 09/24/22 14:37 zithromax Allergy Intermediate lip Uncoded 02/16/23 09:53 blisters Surgical History History of electrophysiologic study History of left heart catheterization Hx of CABG (~11/14/09) Status post mitral valve annuloplasty Social History Smoking Status: Never smoker how long ago did patient quit smokin years ago alcohol intake: never substance use type: does not use caffeine: No what type of physical activity do you participate in: walking frequency: daily duration: 15-30 minutes/day seatbelt use: always do you feel safe at home: Yes ROS Constitutional Constitutional: Reports systems reviewed and no addt'l complaints, except as documented Eyes Eyes: Reports systems reviewed and no addt'l complaints, except as documented ENT HEENT: Reports systems reviewed and no addt'l complaints, except as documented Cardiovascular Cardiovascular: Reports systems reviewed and no addt'l complaints, except as documented Respiratory/Chest Respiratory/Chest: Reports systems reviewed and no addt'l complaints, except as documented Gastrointestinal Gastrointestinal: Reports systems reviewed and no addt'l complaints, except as documented Genitourinary Genitourinary: Reports systems reviewed and no addt'l complaints, except as documented Musculoskeletal Musculoskeletal: Reports systems reviewed and no addt'l complaints, except as documented Integumentary Integumentary: Reports wounds and other Details: 2 areas of superficial laceration in the left ear Pe?a. That just gets full of oozing blood and crusts over and old blood crusting. The other is rather large open wound on the right lateral foot. Concerning because the skin is thin there and he has no feeling so has some slough we will get cultures states he was on doxycycline for just a few days. Neurologic Neurologic: Reports systems reviewed and no addt'l complaints, except as documented Psychiatric Psychiatric: Reports systems reviewed and no addt'l complaints, except as documented Endocrine Endocrinology: Reports systems reviewed and no addt'l complaints, except as documented Hematologic/Lymphatic Hematologic/Lymphatic: Reports systems reviewed and no addt'l complaints, except as documented Allergic/Immunologic Allergic/Immunologic: Reports systems reviewed and no addt'l complaints, except as documented Vital Signs Vital Signs Vital Signs: 02/16/23 09:04 Temperature 97.4 F L Temperature Source Temporal Respiratory Rate 16 Blood Pressure Source Monitor Blood Pressure Position Sitting Blood Pressure Location Left Arm Oxygen Delivery Method Room Air Physical Exam Const oriented x3 General Appearance: cooperative Exam Limitations: no limitations HEENT normocephalic Head and Scalp: normal to inspection Face and Sinus: normal facial exam Nose: external nose normal General Ear: hearing grossly impaired External Ear: external ears normal Mouth: oral and palatal mucosa normal Eyes PERRL General Eye: normal appearance of both eyes Neck full ROM General: normal visual inspection Resp normal respiratory effort Effort and Inspection: able to speak in complete sentences Auscultation: clear to auscultation bilaterally Cardio regular rate and regular rhythm Palpation: normal PMI Rate: regular rate Rhythm: regular rhythm GI Auscultation: normoactive bowel sounds Palpation: soft and no hepatosplenomegaly external exam normal Back/Spine Cervical Spine: cervical ROM normal Thoracic Spine / Upper Back: normal to inspection Lumbar Spine / Lower Back: normal to inspection Extremity normal to inspection General Extremity: normal exam except as noted Skin Wounds: wounds noted Wound Narrative: Right lateral foot open wound from blister Left Pe?a superficial laceration in ear from trees branches Neuro oriented x3 Psych Appearance: grossly normal Speech: normal speech Thought Content: normal thought content Judgement: judgement good Debridement Note Debridement Note Wound debrided: Right lateral foot DFU started as a blister from his shoe Wound Grade/Stage: Stage II Type of Debridement: Excisional debridement Anesthesia Used: 5% Lidocaine Gel Depth: Down to and including healthy tissue and in the subcutaneous layer Percentage of wound debrided: 100 Instrument Used: 5mm curette Tissue Removed: Slough and fibrin Severity: Fat Layer Exposed Amount of bleeding with debridement: Mild Bleeding Controlled with: Compression and gauze Patient tolerated procedure: Patient tolerated procedure well Post-Debridement Measurements and Additional Note: Post-Debridement Measurements/Treatment BRUNO - Nurse 1 - General Ulcer Assessment Start: 02/16/23 09:02 Freq: Status: Active Protocol: ALEJANDRO Activity Type Activity Date Activity User E-sign Co-sign Detail Recorded Client Recorded Date Recorded By Document 02/16/23 09:04 [facility] [id number] 02/16/23 09:23 [facility] 02/16/23 09:04 - Today's Visit Information Type of service Initial Visit Arrival Mode Ambulatory Transfer Assistance None Patient Identification Verified (Name & Yes ) Patient Requires Transmission-Based No Precautions Vital Signs Temperature (97.8 F-99.1 F) 97.4 F L Temperature Source Temporal Pulse Location Monitor Respiratory Rate (12-18) 16 Respiratory rate source Observation Oxygen Delivery Method Room Air Source Monitor Position Sitting Blood Pressure Location Left Arm History Since Last Visit- (Skip if this is Patient's initial visit) Left Footwear Regular Shoe Right Footwear Regular Shoe Pain Scale: 0-10 Numeric Is Patient Pain Free? Yes Lower Extremity Assessment/ Foot Assessment/ Toe Nail Assessment Right -Posterior Tibial Doppler Monophasic -Dorsalis Pedis Doppler Monophasic -Extremity Color Hyperpigmented -Hair Growth on Legs No -Hair Growth on Toes No -Temperature of Extremity Warm -Other Deformity No -Prior Foot Ulcer No -Charcot Joint No -Prior Amputation No -Thick Yes -Discolored Yes -Deformed No -Improper Length & Hygeine No Left -Posterior Tibial Doppler Monophasic -Dorsalis Pedis Doppler Monophasic -Extremity Color Hyperpigmented -Hair Growth on Legs No -Hair Growth on Toes No -Temperature of Extremity Warm -Other Deformity No -Prior Foot Ulcer No -Charcot Joint No -Prior Amputation No -Thick Yes -Discolored Yes -Deformed No -Improper Length & Hygeine No Neuropathy Assessment Feet - Top Side and Bottom <Entered> (a) Communication Assessment Preferred language Irish Electronic Installer Required No Able to Read Yes Able to Write Yes Communication Tools None Right Hearing Abillity Hard of Hearing Left Hearing Abillity Hard of Hearing Visual Assistive Devices Glasses Teaching Assessment Preferences Verbal,Written, Audio/Visual, Demonstration Barriers to Learning None Readiness To Learn Good Willingness to Engage in Self Management Med Activies Readiness to Engage in Self Management Med Activities Anxiety Level Calm Cooperation Cooperative Perception Coherent Interest in Health Problem Asks Questions Education Importance Acknowledges Need Does Patient Smoke tobacco or other No substances Smoking Status Never smoker Is Patient Diabetic Yes Functional Assessment Recent Decline in Ability to Perform Denies Any Declines 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 Cultural/Rastafarian Needs that may affect No Treatment Plan Teaching: Wound Center *Welcome to the Wound Center -Person Taught Patient -Teaching Method Discussion -Response to teaching Verbalize understanding Welcome to the Wound Care Center Portuguese (a) 1 - - 2 - + 3 - + 4 - + 5 - + WC - Nurse 1 - General Ulcer Measurement Start: 02/16/23 09:02 Freq: Status: Active Protocol: Activity Type Activity Date Activity User E-sign Co-sign Detail Recorded Client Recorded Date Recorded By Document 02/16/23 09:04 [facility] [id number] 02/16/23 09:23 [facility] 02/16/23 09:04 Wound Center Nurse 1 #2- L EAR -Combined with other wound No -Current Size (cm) - Length 0.8 -Current Size (cm) - Width 0.2 -Current Size (cm) - Depth 0.2 -Total Square Cm 0.16 -Date of Last Picture (Recall this 02/16/23 field) -Photo Taken Yes -Epithelialization None Present -Tunneling No -Undermining/Tunneling No -Circular Undermining No -Exudate Amt Small -Exudate Type Sanguineous -Wound Margin Distinct, Outline Attached -Granulation Amt Large (67-100%) -Granulation Quality Red -Slough/Fibrin Yes -Necrosis Amt Small (1-33%) -Necrotic Tissue Type Adherent Slough -Texture (Laya-wound Skin Appearance) Assessed, Scarring -Moisture (Laya-wound Skin Appearance) Assessed -Color (Laya-wound Skin Appearance) Assessed -Temperature (Laya-wound Skin No Abnormality Appearance) (Pt Warm) -Tenderness on Palpation (Laya-wound No Skin Appearance) -Ulcer Cleansing Rinsed/ Irrigated with Saline -Foul Odor after Cleansing No -Anesthetic Used 5% Lidocaine Gel #1- R LAT FOOT -Combined with other wound No -Current Size (cm) - Length 4.4 -Current Size (cm) - Width 1.4 -Current Size (cm) - Depth 0.1 -Total Square Cm 6.16 -Date of Last Picture (Recall this 02/16/23 field) -Photo Taken Yes -Epithelialization None Present -Tunneling No -Undermining/Tunneling No -Circular Undermining No -Exudate Amt Medium -Exudate Type Serosanguineous -Wound Margin Distinct, Outline Attached -Granulation Amt Small (1-33%) -Granulation Quality [place],Red -Slough/Fibrin Yes -Necrosis Amt Large (67-100%) -Necrotic Tissue Type Adherent Slough -Texture (Laya-wound Skin Appearance) Assessed, Scarring -Moisture (Laya-wound Skin Appearance) Assessed, Maceration -Color (Laya-wound Skin Appearance) Assessed, Erythema -Temperature (Laya-wound Skin No Abnormality Appearance) (Pt Warm) -Tenderness on Palpation (Laya-wound No Skin Appearance) -Ulcer Cleansing Rinsed/ Irrigated with Saline -Foul Odor after Cleansing No -Anesthetic Used 5% Lidocaine Gel Right Calf (cm) 34.4 Right Ankle (cm) 22.5 Left Calf (cm) 33.4 Left Ankle (cm) 21.4 WC - Nurse 2 - General Ulcer CM Notes Start: 02/16/23 09:02 Freq: Status: Active Protocol: Activity Type Activity Date Activity User E-sign Co-sign Detail Recorded Client Recorded Date Recorded By Document 02/16/23 09:48 [facility] [id number] 02/16/23 09:57 MW 02/16/23 09:48 Wound Center Nurse 2 #2- L EAR -Time 09:48 -Correct Patient Yes -Correct Side, Site, Position Yes -Correct Procedure Yes -Procedure Performed Yes -Type of Procedure Debridement -Clinical Debridement Subcutaneous -Tissue Removed Subcutaneous -Post Debridement (cm) - Length 1.5 -Post Debridement (cm) - Width 0.4 -Post Debridement (cm) - Depth 0.1 -Total Square (Post) (cm) 0.60 -Area of Debridement (cm) - Length 1.5 -Area of Debridement (cm) - Width 0.4 -Total Square (Area) (cm) 0.60 -Tunneling No -Undermining/Tunneling No -Circular Undermining No -Wound/Ulcer Outcome Not Healed -Ulcer Cleansing Rinsed/ Irrigated with Saline -Foul Odor after Cleansing No -Bioengineered Tissue No -Bleeding Controlled with Pressure -Treatment Response Procedure Tolerated Well -Offloading No -Debridement - Subq, 1st 20sq cm Yes #1- R LAT FOOT -Time 09:49 -Correct Patient Yes -Correct Side, Site, Position Yes -Correct Procedure Yes -Procedure Performed Yes -Type of Procedure Debridement -Clinical Debridement Subcutaneous -Tissue Removed Subcutaneous -Post Debridement (cm) - Length 4.5 -Post Debridement (cm) - Width 1.5 -Post Debridement (cm) - Depth 0.2 -Total Square (Post) (cm) 6.75 -Area of Debridement (cm) - Length 4.5 -Area of Debridement (cm) - Width 1.5 -Total Square (Area) (cm) 6.75 -Tunneling No -Undermining/Tunneling No -Circular Undermining No -Wound/Ulcer Outcome Not Healed -Ulcer Cleansing Rinsed/ Irrigated with Saline -Foul Odor after Cleansing No -Bioengineered Tissue No -Bleeding Controlled with Pressure -Treatment Response Procedure Tolerated Well -Offloading No -Debridement - Subq, 1st 20sq cm No Pain Scale: 0-10 Numeric Is Patient Pain Free? Yes - Nurse 3 - General Ulcer D/C NN Start: 02/16/23 09:02 Freq: Status: Active Protocol: Activity Type Activity Date Activity User E-sign Co-sign Detail Recorded Client Recorded Date Recorded By Document 02/16/23 10:11 [facility] [id number] 02/16/23 10:12 [facility] 02/16/23 10:11 Wound Care Center Nurse 3 #2- L EAR -Ulcer Cleansing Rinsed/ Irrigated with Saline -Foul Odor after Cleansing No -Primary Dressing Applied NonAdherent Contact Layer -Primary Dressing Covered/Secured with Dry Gauze, Secured with Tape #1- R LAT FOOT -Ulcer Cleansing Rinsed/ Irrigated with Saline -Foul Odor after Cleansing No -Primary Dressing Applied Fibracol Plus 4x4,Mepilex Border -Fibracol Plus 4x4 1 -Mepilex Border 2 Treatment Response Procedure Tolerated Well Pain Scale: 0-10 Numeric Is Patient Pain Free? Yes - Visit Discharge Discharge Condition Stable Ambulatory Status Ambulatory Transportation Private Auto Additional Wound Wound debrided: Left Pe?a superficial traumatic wound Type of Debridement: Excisional debridement Anesthesia Used: 5% Lidocaine Gel Depth: Down to and including healthy tissue Percentage of wound debrided: 100 Instrument Used: 3mm curette Tissue Removed: Fibrin Severity: Limited To Skin Breakdown Amount of bleeding with debridement: Mild Bleeding Controlled with: Compression and gauze Patient tolerated procedure: Patient tolerated procedure well Assessment/Plan Assessment/Plan (1) Diabetic foot ulcer associated with type 2 diabetes mellitus: CODE(S): E11.621 - Type 2 diabetes mellitus with foot ulcer; L97.509 - Non-pressure chronic ulcer of other part of unspecified foot with unspecified severity QUALIFIERS: Diabetic foot ulcer location: midfoot Laterality: right Non-pressure ulcer stage: with fat layer exposed Qualified Code(s): E11.621 - Type 2 diabetes mellitus with foot ulcer; L97.412 - Non-pressure chronic ulcer of right heel and midfoot with fat layer exposed PLAN: Wash right foot with antibacterial soap and scrub toenails clean Apply fibrocol to wound base moistened covered with Adaptic and dry dressing Follow-up in 1 week (2) Decubitus ulcer of right foot, stage 2: CODE(S): L89.892 - Pressure ulcer of other site, stage 2 (3) Unspecified open wound of other part of head, initial encounter: CODE(S): S01.80XA - Unspecified open wound of other part of head, initial encounter PLAN: Wash left ear with antibacterial soap and apply Xeroform to wound and cover with Adaptic and leave open to air
[2023-02-23 10:03] VITALS: BP 124/70; PULSE 78; RESP 18; TEMP 36.3
--- NOTE | 2023-02-23 12:26 | PCM.WC.PN ---
History of Present Illness Date of Service: 02/23/23 Chief Complaint: Follow-up on his left ear laceration from a tree branch and right lateral foot open wound from a blister that was over 1 month old. 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 He has poor hygiene habits. Had developed a blister from his shoe on the right lateral foot that is quite long about 4 cm x 1 cm wide. States it bled like everything because he is on Eliquis. Seeing bleeds stop to get the bleeding under control. Now has developed some slough and fibrous material in the center with I think over a venous vein. Patient has numbing and has no feeling in his lower leg but he does say his feet throb. He does have many comorbidities such as A-fib diabetes does have a defibrillator high cholesterol BPH Progress of Wound: Left ear is a small divot we will try using a nitro stick in it and mechanically cauterizing it. Then leave it open to air Right lateral foot was positive for bacteria patient was started on Levaquin that he just started yesterday. He was approved for epi fix will start that next week. Measurements are slightly smaller will continue with the Fibracol. Subjective Subjective Patient approves of plan Objective Data Objective Data As stated above measurements are smaller tried a cauterizing the ear to see if that which is closed up it so small. And very hard to get any medication in there by himself. The right lateral foot is still open has an island of new skin. We will continue with the fibrocol until we can start the EpiFix is next week. Hygiene appears better this week Vital Signs: Vital Signs Temp Pulse Resp BP O2 Del Method 97.3 F L 78 18 124/70 H Room Air 02/23/23 10:03 02/23/23 10:03 02/23/23 10:03 02/23/23 10:03 02/16/23 09:04 Oxygen Delivery Method Room Air Lab / Micro Data Attestation: I reviewed the patient's lab results. Micro: Microbiology 02/16/23 10:00 Wound - Right Foot Gram Stain - Final 02/16/23 10:00 Wound - Right Foot Wound Culture - Final Staphylococcus epidermidis 02/16/23 10:00 Wound - Right Foot Anaerobic Culture - Final No anaerobic bacteria isolated. Physical Exam Const oriented x3 General Appearance: cooperative Exam Limitations: no limitations HEENT normocephalic Head and Scalp: normal to inspection Face and Sinus: normal facial exam Nose: external nose normal General Ear: hearing grossly impaired External Ear: external ears normal Mouth: oral and palatal mucosa normal Eyes PERRL General Eye: normal appearance of both eyes Neck full ROM General: normal visual inspection Resp normal respiratory effort Effort and Inspection: able to speak in complete sentences Auscultation: clear to auscultation bilaterally Cardio regular rate and regular rhythm Palpation: normal PMI Rate: regular rate Rhythm: regular rhythm GI Auscultation: normoactive bowel sounds Palpation: soft and no hepatosplenomegaly external exam normal Back/Spine Cervical Spine: cervical ROM normal Thoracic Spine / Upper Back: normal to inspection Lumbar Spine / Lower Back: normal to inspection Extremity normal to inspection General Extremity: normal exam except as noted Skin Wounds: wounds noted Wound Narrative: Right lateral foot open wound from blister Left Pe?a superficial laceration in ear from trees branches Neuro oriented x3 Psych Appearance: grossly normal Speech: normal speech Thought Content: normal thought content Judgement: judgement good Debridement Note Debridement Note Wound debrided: Right lateral foot diabetic foot ulcer Wound Grade/Stage: Stage II Type of Debridement: Excisional debridement Anesthesia Used: 5% Lidocaine Gel Depth: Down to and including healthy tissue Percentage of wound debrided: 100 Instrument Used: 5mm curette Tissue Removed: Fibrin Severity: Fat Layer Exposed Amount of bleeding with debridement: Mild Bleeding Controlled with: Compression and gauze Patient tolerated procedure: Patient tolerated procedure well Post-Debridement Measurements and Additional Note: Post-Debridement Measurements/Treatment - Nurse 1 - General Ulcer Assessment Start: 02/16/23 09:02 Freq: Status: Active Protocol: BRUNO.LOWEXT Activity Type Activity Date Activity User E-sign Co-sign Detail Recorded Client Recorded Date Recorded By Document 02/16/23 09:04 [facility] [id number] 02/16/23 09:23 [facility] Document 02/23/23 10:03 RB [id number] 02/23/23 10:10 RB 02/16/23 02/23/23 09:04 10:03 - Today's Visit Information Type of service Initial Visit 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 ) Arrival Mode Ambulatory Ambulatory Transfer Assistance None None Patient Identification Verified (Name & Yes Yes ) Patient Requires Transmission-Based No No Precautions Vital Signs Temperature (97.8 F-99.1 F) 97.4 F L 97.3 F L Temperature Source Temporal Temporal Pulse Rate (60-100) 78 Pulse Location Monitor Monitor Respiratory Rate (12-18) 16 18 Respiratory rate source Observation Observation Oxygen Delivery Method Room Air Blood Pressure (90/60-120/80) 124/70 H Blood Pressure Mean (mm Hg) 88 Source Monitor Monitor Position Sitting Semi-Fowlers Blood Pressure Location Left Arm Left Arm History Since Last Visit- (Skip if this is Patient's initial visit) Have you changed medications since your No last visit? Any new allergies or adverse reactions No Had a fall/change in ADL's that may No increase risk of falls Signs or symptoms of abuse and/or No neglect since last visit Have you been in the hospital since your No last visit? Has dressing in place as prescribed Yes Has compression in place as prescribed No Has offloadiing in place as prescribed No Experienced any changes in pain level or No management Left Footwear Regular Shoe Right Footwear Regular Shoe Pain Scale: 0-10 Numeric Is Patient Pain Free? Yes Yes Lower Extremity Assessment/ Foot Assessment/ Toe Nail Assessment Right -Posterior Tibial Doppler Monophasic -Dorsalis Pedis Doppler Monophasic -Extremity Color Hyperpigmented -Hair Growth on Legs No -Hair Growth on Toes No -Temperature of Extremity Warm -Other Deformity No -Prior Foot Ulcer No -Charcot Joint No -Prior Amputation No -Thick Yes -Discolored Yes -Deformed No -Improper Length & Hygeine No Left -Posterior Tibial Doppler Monophasic -Dorsalis Pedis Doppler Monophasic -Extremity Color Hyperpigmented -Hair Growth on Legs No -Hair Growth on Toes No -Temperature of Extremity Warm -Other Deformity No -Prior Foot Ulcer No -Charcot Joint No -Prior Amputation No -Thick Yes -Discolored Yes -Deformed No -Improper Length & Hygeine No Neuropathy Assessment Feet - Top Side and Bottom <Entered> (a) Communication Assessment Preferred language [place] Strategic Planning Director Required No Able to Read Yes Able to Write Yes Communication Tools None Right Hearing Abillity Hard of Hearing Left Hearing Abillity Hard of Hearing Visual Assistive Devices Glasses Teaching Assessment Preferences Verbal,Written, Audio/Visual, Demonstration Barriers to Learning None Readiness To Learn Good Willingness to Engage in Self Management Med Activies Readiness to Engage in Self Management Med Activities Anxiety Level Calm Cooperation Cooperative Perception Coherent Interest in Health Problem Asks Questions Education Importance Acknowledges Need Does Patient Smoke tobacco or other No substances Smoking Status Never smoker Is Patient Diabetic Yes Functional Assessment Recent Decline in Ability to Perform Denies Any Declines 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 Cultural/Mormon Needs that may affect No Treatment Plan Teaching: Wound Center *Welcome to the Wound Center -Person Taught Patient -Teaching Method Discussion -Response to teaching Verbalize understanding Welcome to the Wound Care Center [place] (a) 1 - - 2 - + 3 - + 4 - + 5 - + WC - Nurse 1 - General Ulcer Measurement Start: 02/16/23 09:02 Freq: Status: Active Protocol: Activity Type Activity Date Activity User E-sign Co-sign Detail Recorded Client Recorded Date Recorded By Document 02/16/23 09:04 [facility] [id number] 02/16/23 09:23 [facility] Document 02/23/23 10:03 [id number] 02/23/23 10:10 RB 02/16/23 02/23/23 09:04 10:03 Wound Center Nurse 1 #2- L EAR -Combined with other wound No No -Current Size (cm) - Length 0.8 0.1 -Current Size (cm) - Width 0.2 0.1 -Current Size (cm) - Depth 0.2 0.1 -Total Square Cm 0.16 0.01 -Date of Last Picture (Recall this 02/16/23 field) -Photo Taken Yes -Epithelialization None Present Medium 34-66% -Tunneling No No -Undermining/Tunneling No No -Circular Undermining No No -Exudate Amt Small Small -Exudate Type Sanguineous Serosanguineous -Wound Margin Distinct, Distinct, Outline Outline Attached Attached -Granulation Amt Large (67-100%) Medium (34-66%) -Granulation Quality Red Box -Slough/Fibrin Yes Yes -Necrosis Amt Small (1-33%) Medium (34-66%) -Necrotic Tissue Type Adherent Slough Adherent Slough -Structure Exposed N/A -Texture (Laya-wound Skin Appearance) Assessed, Assessed Scarring -Moisture (Laya-wound Skin Appearance) Assessed Assessed -Color (Laya-wound Skin Appearance) Assessed Assessed -Temperature (Laya-wound Skin No Abnormality No Abnormality Appearance) (Pt Warm) (Pt Warm) -Tenderness on Palpation (Laya-wound No No Skin Appearance) -Ulcer Cleansing Rinsed/ Wound Cleanser Irrigated with Saline -Foul Odor after Cleansing No No -Anesthetic Used 5% Lidocaine 5% Lidocaine Gel Gel #1- R LAT FOOT -Combined with other wound No No -Current Size (cm) - Length 4.4 0.1 -Current Size (cm) - Width 1.4 0.1 -Current Size (cm) - Depth 0.1 0.1 -Total Square Cm 6.16 0.01 -Date of Last Picture (Recall this 02/16/23 field) -Photo Taken Yes -Epithelialization None Present -Tunneling No No -Undermining/Tunneling No No -Circular Undermining No No -Exudate Amt Medium Medium -Exudate Type Serosanguineous Serosanguineous -Wound Margin Distinct, Distinct, Outline Outline Attached Attached -Granulation Amt Small (1-33%) Medium (34-66%) -Granulation Quality Box,Red Box -Slough/Fibrin Yes Yes -Necrosis Amt Large (67-100%) Medium (34-66%) -Necrotic Tissue Type Adherent Slough Adherent Slough -Structure Exposed N/A -Texture (Laya-wound Skin Appearance) Assessed, Assessed Scarring -Moisture (Laya-wound Skin Appearance) Assessed, Maceration Maceration -Color (Laya-wound Skin Appearance) Assessed, Assessed Erythema -Temperature (Laya-wound Skin No Abnormality No Abnormality Appearance) (Pt Warm) (Pt Warm) -Tenderness on Palpation (Laya-wound No No Skin Appearance) -Ulcer Cleansing Rinsed/ Wound Cleanser Irrigated with Saline -Foul Odor after Cleansing No No -Anesthetic Used 5% Lidocaine 5% Lidocaine Gel Gel Right Calf (cm) 34.4 Right Ankle (cm) 22.5 Left Calf (cm) 33.4 Left Ankle (cm) 21.4 WC - Nurse 2 - General Ulcer CM Notes Start: 02/16/23 09:02 Freq: Status: Active Protocol: Activity Type Activity Date Activity User E-sign Co-sign Detail Recorded Client Recorded Date Recorded By Document 02/16/23 09:48 MW [id number] 02/16/23 09:57 MW Document 02/23/23 10:14 MW [id number] 02/23/23 10:20 MW 02/16/23 02/23/23 09:48 10:14 Wound Center Nurse 2 #2- L EAR -Time 09:48 10:15 -Correct Patient Yes Yes -Correct Side, Site, Position Yes Yes -Correct Procedure Yes Yes -Procedure Performed Yes No -Type of Procedure Debridement -Clinical Debridement Subcutaneous -Tissue Removed Subcutaneous -Post Debridement (cm) - Length 1.5 -Post Debridement (cm) - Width 0.4 -Post Debridement (cm) - Depth 0.1 -Total Square (Post) (cm) 0.60 -Area of Debridement (cm) - Length 1.5 -Area of Debridement (cm) - Width 0.4 -Total Square (Area) (cm) 0.60 -Tunneling No -Undermining/Tunneling No -Circular Undermining No -Wound/Ulcer Outcome Not Healed -Ulcer Cleansing Rinsed/ Irrigated with Saline -Foul Odor after Cleansing No -Bioengineered Tissue No -Bleeding Controlled with Pressure Silver Nitrate, Chemical Cauterization ( $) -Treatment Response Procedure Tolerated Well -Offloading No -Debridement - Subq, 1st 20sq cm Yes #1- R LAT FOOT -Time 09:49 10:18 -Correct Patient Yes Yes -Correct Side, Site, Position Yes Yes -Correct Procedure Yes Yes -Procedure Performed Yes Yes -Type of Procedure Debridement Debridement -Clinical Debridement Subcutaneous Subcutaneous -Tissue Removed Subcutaneous Subcutaneous -Post Debridement (cm) - Length 4.5 4.4 -Post Debridement (cm) - Width 1.5 1.4 -Post Debridement (cm) - Depth 0.2 0.2 -Total Square (Post) (cm) 6.75 6.16 -Area of Debridement (cm) - Length 4.5 4.4 -Area of Debridement (cm) - Width 1.5 1.4 -Total Square (Area) (cm) 6.75 6.16 -Tunneling No No -Undermining/Tunneling No No -Circular Undermining No No -Wound/Ulcer Outcome Not Healed Not Healed -Ulcer Cleansing Rinsed/ Rinsed/ Irrigated with Irrigated with Saline Saline -Foul Odor after Cleansing No No -Bioengineered Tissue No No -Bleeding Controlled with Pressure Pressure -Treatment Response Procedure Procedure Tolerated Well Tolerated Well -Offloading No No -Debridement - Subq, 1st 20sq cm No Yes Pain Scale: 0-10 Numeric Is Patient Pain Free? Yes Yes WC - Nurse 3 - General Ulcer D/C NN Start: 02/16/23 09:02 Freq: Status: Active Protocol: Activity Type Activity Date Activity User E-sign Co-sign Detail Recorded Client Recorded Date Recorded By Document 02/16/23 10:11 [facility] [id number] 02/16/23 10:12 BM Document 02/23/23 10:32 MW [id number] 02/23/23 10:33 MW 02/16/23 02/23/23 10:11 10:32 Wound Care Center Nurse 3 #2- L EAR -Ulcer Cleansing Rinsed/ Irrigated with Saline -Foul Odor after Cleansing No -Primary Dressing Applied NonAdherent Contact Layer -Primary Dressing Covered/Secured with Dry Gauze, Secured with Tape -Other Covering open to air #1- R LAT FOOT -Ulcer Cleansing Rinsed/ Rinsed/ Irrigated with Irrigated with Saline Saline -Foul Odor after Cleansing No No -Negative Pressure Wound Therapy N/A -Primary Dressing Applied Fibracol Plus Fibracol Plus 4x4,Mepilex 4x4,Mepilex Border Border, NonAdherent Contact Layer -Primary Dressing Covered/Secured with Dry Gauze & Roll Gauze, Secured with Tape -Fibracol Plus 4x4 1 1 -Mepilex Border 2 2 Treatment Response Procedure Procedure Not Tolerated Well Tolerated Well Pain Scale: 0-10 Numeric Is Patient Pain Free? Yes Yes Teaching: Wound Center Dressing Your Wound -Person Taught Patient -Teaching Method Discussion, Demonstration -Response to teaching Verbalize understanding WC - Visit Discharge Discharge Condition Stable Stable Ambulatory Status Ambulatory Ambulatory Transportation Private Auto Accompanied by self Medication Reconcilliation completed & No provided to patient/care provider Clinical Summary of Care Provided Yes Assessment/Plan Assessment/Plan (1) Diabetic foot ulcer associated with type 2 diabetes mellitus: CODE(S): E11.621 - Type 2 diabetes mellitus with foot ulcer; L97.509 - Non-pressure chronic ulcer of other part of unspecified foot with unspecified severity QUALIFIERS: Diabetic foot ulcer location: midfoot Laterality: right Non-pressure ulcer stage: with fat layer exposed Qualified Code(s): E11.621 - Type 2 diabetes mellitus with foot ulcer; L97.412 - Non-pressure chronic ulcer of right heel and midfoot with fat layer exposed PLAN: Wash right foot with antibacterial soap and scrub toenails clean Apply fibrocol to wound base moistened covered with Adaptic and dry dressing Follow-up in 1 week Finish antibiotics Levaquin 500 mg 1 p.o. daily for 14 days (2) Decubitus ulcer of right foot, stage 2: CODE(S): L89.892 - Pressure ulcer of other site, stage 2 (3) Unspecified open wound of other part of head, initial encounter: CODE(S): S01.80XA - Unspecified open wound of other part of head, initial encounter PLAN: Cauterized left ear leave open to air
[2023-02-24 11:48] VITALS: BP 110/64; PULSE 80; RESP 18; TEMP 36.4
== END 2023-02-28 23:59 | disposition home or self-care (01) ==
LOC: WC 10:15
PROVIDERS: PCP Family Medicine; Referring Provider Nurse Practitioner; Visit Provider Nurse Practitioner
DX: E11.621 Type 2 diabetes mellitus with foot ulcer (principal); L89.892 Pressure ulcer of other site, stage 2; L97.412 Non-pressure chronic ulcer of right heel and midfoot with fat layer exposed; E11.40 Type 2 diabetes mellitus with diabetic neuropathy, unspecified; I48.0 Paroxysmal atrial fibrillation; Z79.4 Long term (current) use of insulin; Z79.01 Long term (current) use of 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s; I25.10 Atherosclerotic heart disease of native coronary artery without angina pectoris; Z79.899 Other long term (current) drug therapy; S01.312A Laceration without foreign body of left ear, initial encounter; Z79.84 Long term (current) use of oral hypoglycemic drugs; E78.2 Mixed hyperlipidemia; Z79.2 Long term (current) use of antibiotics; I10 Essential (primary) hypertension; I25.5 Ischemic cardiomyopathy
CPT/HCPCS: 11042; 17250; 87070; 87075; 87077; 87186; 87205; 99203; 99211; G0463

== ENCOUNTER → 2023-03-29 | Outpatient (CLI) | payer MEDICARE, BC, SELFPAY ==
[2023-03-29 11:00] LABS: Bacteria 0 SEEN /hpf (None Seen); Mucous, Urine 0 SEEN /hpf (<or=2+); Red Blood Cells-Urine 0 SEEN /hpf (0-5); Squamous Epithelial Cells - UA 0 SEEN /hpf (0-5); White Blood Cells 0 SEEN /hpf (0-5)
[2023-03-29 12:19] LABS: Absolute Lymphocyte Count 0.93 X10^3/uL (0.83-4.51); Absolute Neutrophil Count 3.5 X10^3/uL (2.0-7.7); Basophil# 0.03 X10^3/uL; Basophil% 0.6 % (0-1); Eosinophil# 0.09 X10^3/uL; Eosinophils% 1.8 % (0-5); Hematocrit 37.7 % (40-54); Hemoglobin 11.7 g/dL (13.0-16.5); Lymphocyte # 0.93 X10^3/ul (0.83-4.51); Lymphocyte % 18.6 % (19-41); Mean Corpuscular Hgb 30.1 pg (27.0-32.0); Mean Corpuscular Volume 96.9 fL (80-94); Mean Platelet Vol. 9.9 fl (6.2-12.0); NRBC Flagged by Analyzer 0 % (0-5); Neutrophil # 3.53 X10^3/uL (2.7-7.7); Neutrophil % 70.6 % (47-70); Platelet Count 206 K/mm3 (150-450); RBC Distribution Width SD 51.9 fl (35.1-43.9); Red Blood Count 3.89 M/mm3 (4.6-6.2)
[2023-03-29 12:20] LABS: Color, Urine Yellow (Yellow); Glucose, Dipstick 100 mg/dl (Normal); Ketone-Dipstick Negative (Negative); Leukocyte Esterase-Dipstick Negative /ul (Negative); Nitrite-Dipstick Negative (Negative); Occult Blood-Urine Negative /ul (Negative); Protein-Dipstick 15 mg/dl (Negative); Specific Gravity, Urine 1.015 (1.002-1.030); Urine Bilirubin Dipstick Negative (Negative); Urine Clarity Clear (Clear); Urine Urobilinogen Normal (Normal)
[2023-03-29 12:26] LABS: Protein, Urine (Random) 19.7 mg/dL (<11.9); Protein:Creat Ratio 216 mg/g CRE (0-200)
[2023-03-29 12:39] LABS: PTHIN 64.7 pg/mL (18.4-80.1)
[2023-03-29 12:40] LABS: Hemoglobin A1c 11.5 % (3.8-5.6)
[2023-03-29 12:46] LABS: AST(SGOT) 27 U/L (15-37); Alanine Aminotransfer ALT/SGPT 55 U/L (16-61); Albumin, Serum 3.4 g/dL (3.2-5.0); Alkaline Phosphatase 167 U/L (45-117); Anion Gap 5 (5-15); BUN 18 mg/dL (7-18); BUN/Creat Ratio 16.7 RATIO (10-20); Calcium,Total 8.6 mg/dL (8.5-10.1); Chloride 105 mmol/L (98-107); Cholesterol 94 mg/dL (200); Creatinine, Serum 1.08 mg/dL (0.70-1.30); EST Glomerular Filtration Rate 70 mL/min (>60); Est Glom Filt Rate - Afr Amer 84 mL/min (>60); Globulin 3.5 g/dL (2.2-4.2); Glucose 154 mg/dL (74-106); High Density Lipoprotein 32 mg/dL; Phosphorus 3.5 mg/dL (2.5-4.9); Potassium 4.3 mmol/L (3.5-5.1); Protein, Total 6.9 g/dL (6.4-8.2); Sodium Level 137 mmol/L (136-145); Triglycerides 78 mg/dL; Very Low Density Lipoprotein 16 mg/dL (5-40)
== END | disposition home or self-care (01) ==
LOC: MFPLAB 10:23
PROVIDERS: PCP Family Medicine; Visit Provider Family Medicine
DX: E11.59 Type 2 diabetes mellitus with other circulatory complications (principal); E11.22 Type 2 diabetes mellitus with diabetic chronic kidney disease; N18.30 Chronic kidney disease, stage 3 unspecified; E55.9 Vitamin D deficiency, unspecified
CPT/HCPCS: 36415; 80053; 80061; 81001; 82306; 82570; 83036; 83970; 84100; 84156; 85025

== ENCOUNTER 2023-03-30 10:45 | Outpatient (RCR) | payer MEDICARE, BC, SELFPAY ==
[2023-03-01 00:23] VITALS: BP 110/64; PULSE 80; RESP 18; TEMP 36.4
[2023-03-02 11:10] VITALS: BP 119/69; PULSE 97; RESP 18; TEMP 36.1
--- NOTE | 2023-03-02 13:17 | PCM.WC.PN ---
History of Present Illness Date of Service: 03/02/23 Chief Complaint: Follow-up on his left ear laceration from a tree branch and right lateral foot open wound from a blister that was over 1 month old. 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 He has poor hygiene habits. Had developed a blister from his shoe on the right lateral foot that is quite long about 4 cm x 1 cm wide. States it bled like everything because he is on Eliquis. Seeing bleeds stop to get the bleeding under control. Now has developed some slough and fibrous material in the center with I think over a venous vein. Patient has numbing and has no feeling in his lower leg but he does say his feet throb. He does have many comorbidities such as A-fib diabetes does have a defibrillator high cholesterol BPH Progress of Wound: The left ear with the nitrous stick did not work we will go back to using Xeroform packed into the wound. Still has depth and opening. Right lateral foot looks better more shallow measures about the same less depth. Has been trying to keep it loom cleaner. Was approved for EpiFix we applied EpiFix to the wound base follow him up in 1 week Subjective Subjective Patient is okay with all treatments Objective Data Objective Data Still has the infection did not tolerate the Levaquin we will try Lenzo at this time on him and see if that works better. Vital Signs: Vital Signs Temp Pulse Resp BP 97 F L 97 18 119/69 03/02/23 11:10 03/02/23 11:10 03/02/23 11:10 03/02/23 11:10 Lab / Micro Data Attestation: I reviewed the patient's lab results. Debridement Note Debridement Note Wound debrided: Right lateral foot traumatic opening DFU Laterality: Right Wound Grade/Stage: Stage II Type of Debridement: Excisional debridement Anesthesia Used: 5% Lidocaine Gel Depth: Down to and including healthy tissue Percentage of wound debrided: 100 Instrument Used: 5mm curette Tissue Removed: Devitalized tissue and fibrin Severity: Fat Layer Exposed Amount of bleeding with debridement: Mild Bleeding Controlled with: Compression and gauze Patient tolerated procedure: Patient tolerated procedure well Post-Debridement Measurements and Additional Note: Post-Debridement Measurements/Treatment WC - Nurse 1 - General Ulcer Assessment Start: 03/02/23 11:05 Freq: Status: Active Protocol: [email or web address].NOLA Activity Type Activity Date Activity User E-sign Co-sign Detail Recorded Client Recorded Date Recorded By Document 03/02/23 11:10 DAISY [id number] 03/02/23 11:13 RB 03/02/23 11:10 - Today's Visit Information Type of service Follow-up Visit (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/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 Any new allergies or adverse reactions No Had a fall/change in ADL's that may No increase risk of falls Signs or symptoms of abuse and/or No neglect since last visit Have you been in the hospital since your No last visit? Has dressing in place as prescribed Yes Has compression in place as prescribed No Has offloadiing in place as prescribed No Experienced any changes in pain level or No management Pain Scale: 0-10 Numeric Is Patient Pain Free? Yes - Nurse 1 - General Ulcer Measurement Start: 03/02/23 11:05 Freq: Status: Active Protocol: Activity Type Activity Date Activity User E-sign Co-sign Detail Recorded Client Recorded Date Recorded By Document 03/02/23 11:10 DAISY [id number] 03/02/23 11:13 RB 03/02/23 11:10 Wound Center Nurse 1 #2- L EAR -Combined with other wound No -Current Size (cm) - Length 0.1 -Current Size (cm) - Width 0.1 -Current Size (cm) - Depth 0.1 -Total Square Cm 0.01 -Tunneling No -Undermining/Tunneling No -Circular Undermining No -Exudate Amt Small -Exudate Type Serosanguineous -Wound Margin Distinct, Outline Attached -Granulation Amt Medium (34-66%) -Granulation Quality [place] -Slough/Fibrin Yes -Necrosis Amt Medium (34-66%) -Necrotic Tissue Type Adherent Slough -Structure Exposed N/A -Texture (Laya-wound Skin Appearance) Assessed -Moisture (Laya-wound Skin Appearance) Assessed -Color (Laya-wound Skin Appearance) Assessed -Temperature (Laya-wound Skin No Abnormality Appearance) (Pt Warm) -Tenderness on Palpation (Laya-wound No Skin Appearance) -Ulcer Cleansing Wound Cleanser -Foul Odor after Cleansing No #1- R LAT FOOT -Combined with other wound No -Current Size (cm) - Length 3 -Current Size (cm) - Width 1.4 -Current Size (cm) - Depth 0.2 -Total Square Cm 4.2 -Tunneling No -Undermining/Tunneling No -Circular Undermining No -Exudate Amt Medium -Exudate Type Serosanguineous -Wound Margin Distinct, Outline Attached -Granulation Amt Medium (34-66%) -Granulation Quality [place] -Slough/Fibrin Yes -Necrosis Amt Medium (34-66%) -Necrotic Tissue Type Adherent Slough -Structure Exposed N/A -Texture (Laya-wound Skin Appearance) Assessed -Moisture (Laya-wound Skin Appearance) Assessed -Color (Laya-wound Skin Appearance) Assessed -Temperature (Laya-wound Skin No Abnormality Appearance) (Pt Warm) -Tenderness on Palpation (Laya-wound No Skin Appearance) -Ulcer Cleansing Wound Cleanser -Foul Odor after Cleansing No -Anesthetic Used 5% Lidocaine Gel WC - Nurse 2 - General Ulcer CM Notes Start: 03/02/23 11:05 Freq: Status: Active Protocol: Activity Type Activity Date Activity User E-sign Co-sign Detail Recorded Client Recorded Date Recorded By Document 03/02/23 11:24 MW [id number] 03/02/23 11:36 MW Edit Result 03/02/23 11:24 MW (1) [id number] 03/02/23 11:39 MW (1) #2- L EAR - Procedure Performed No => Yes - Type of Procedure => Debridement - Clinical Debridement => Subcutaneous - Tissue Removed => Subcutaneous - Tunneling => No - Undermining/Tunneling => No - Circular Undermining => No - Wound/Ulcer Outcome => Not Healed - Ulcer Cleansing => Rinsed/Irrigated => with Saline - Foul Odor after Cleansing => No - Bioengineered Tissue => No - Bleeding Controlled with => Pressure - Treatment Response => Procedure => Tolerated Well - Offloading => No - Debridement - Subq, 1st 20sq cm => Yes 03/02/23 11:24 Wound Center Nurse 2 #2- L EAR -Time 11:25 -Correct Patient Yes -Correct Side, Site, Position Yes -Correct Procedure Yes -Procedure Performed Yes -Type of Procedure Debridement -Clinical Debridement Subcutaneous -Tissue Removed Subcutaneous -Tunneling No -Undermining/Tunneling No -Circular Undermining No -Wound/Ulcer Outcome Not Healed -Ulcer Cleansing Rinsed/ Irrigated with Saline -Foul Odor after Cleansing No -Bioengineered Tissue No -Bleeding Controlled with Pressure -Treatment Response Procedure Tolerated Well -Offloading No -Debridement - Subq, 1st 20sq cm Yes #1- R LAT FOOT -Time 11:25 -Correct Patient Yes -Correct Side, Site, Position Yes -Correct Procedure Yes -Procedure Performed Yes -Type of Procedure Debridement -Clinical Debridement Subcutaneous -Tissue Removed Subcutaneous -Post Debridement (cm) - Length 4.3 -Post Debridement (cm) - Width 1.4 -Post Debridement (cm) - Depth 0.2 -Total Square (Post) (cm) 6.02 -Area of Debridement (cm) - Length 4.3 -Area of Debridement (cm) - Width 1.4 -Total Square (Area) (cm) 6.02 -Tunneling No -Undermining/Tunneling No -Circular Undermining No -Wound/Ulcer Outcome Not Healed -Ulcer Cleansing Rinsed/ Irrigated with Saline -Foul Odor after Cleansing No -Bioengineered Tissue Yes -Type of Bioengineered Tissue Epifix -Expiration Date 10/31/27 -Product Lot Number [id number] -Percent Used 100 -Lot number of Saline Used [id number] -Bleeding Controlled with Pressure -Treatment Response Procedure Tolerated Well -Offloading No -Debridement - Subq, 1st 20sq cm No -Apply Skin Sub - 1st 25 sq cm - Feet 1 -Epifix (per sq cm) 11 Pain Scale: 0-10 Numeric Is Patient Pain Free? Yes WC - Nurse 3 - General Ulcer D/C NN Start: 03/02/23 11:05 Freq: Status: Active Protocol: Activity Type Activity Date Activity User E-sign Co-sign Detail Recorded Client Recorded Date Recorded By Document 03/02/23 11:43 RB [id number] 03/02/23 11:45 RB 03/02/23 11:43 Wound Care Center Nurse 3 #2- L EAR -Ulcer Cleansing Rinsed/ Irrigated with Saline -Primary Dressing Applied NonAdherent Contact Layer -Other Dressing xeroform to L ear gauze -Primary Dressing Covered/Secured with Dry Gauze, Secured with Tape #1- R LAT FOOT -Ulcer Cleansing Rinsed/ Irrigated with Saline -Primary Dressing Applied Aquacel Extra, Mepilex Border -Primary Dressing Covered/Secured with Dry Gauze -Aquacel Extra 1 -Mepilex Border 1 Treatment Response Procedure Tolerated Well Pain Scale: 0-10 Numeric Is Patient Pain Free? Yes WC - Visit Discharge Discharge Condition Stable Ambulatory Status Ambulatory Transportation Private Auto Medication Reconcilliation completed & No provided to patient/care provider Clinical Summary of Care Provided Yes Assessment/Plan Assessment/Plan (1) Diabetic foot ulcer associated with type 2 diabetes mellitus: CODE(S): E11.621 - Type 2 diabetes mellitus with foot ulcer; L97.509 - Non-pressure chronic ulcer of other part of unspecified foot with unspecified severity QUALIFIERS: Diabetic foot ulcer location: midfoot Laterality: right Non-pressure ulcer stage: with fat layer exposed Qualified Code(s): E11.621 - Type 2 diabetes mellitus with foot ulcer; L97.412 - Non-pressure chronic ulcer of right heel and midfoot with fat layer exposed PLAN: Applied EpiFix #1 to right lateral foot veil was covered and Aquacel extra was placed on top for extra red of protection against infection. Patient is told he cannot get wet. (2) Decubitus ulcer of right foot, stage 2: CODE(S): L89.892 - Pressure ulcer of other site, stage 2 (3) Unspecified open wound of other part of head, initial encounter: CODE(S): S01.80XA - Unspecified open wound of other part of head, initial encounter PLAN: Wash with antibacterial soap and apply Xeroform dressing to wound base and leave open to air Patient will also be started on linezolid 600 mg p.o. twice daily for 14 days #28 called into his local pharmacy.
[2023-03-09 11:02] VITALS: BP 106/61; PULSE 82; RESP 20; TEMP 36.1
--- NOTE | 2023-03-09 12:00 | PN.PCM_ITS ---
History of Present Illness Date of Service: 03/09/23 Chief Complaint: Follow-up on his left ear laceration from a tree branch and right lateral foot open wound from a blister that was over 1 month old. 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 He has poor hygiene habits. Had developed a blister from his shoe on the right lateral foot that is quite long about 4 cm x 1 cm wide. States it bled like everything because he is on Eliquis. Seeing bleeds stop to get the bleeding under control. Now has developed some slough and fibrous material in the center with I think over a venous vein. Patient has numbing and has no feeling in his lower leg but he does say his feet throb. He does have many comorbidities such as A-fib diabetes does have a defibrillator high cholesterol BPH Progress of Wound: Left ear is very superficial now with this very small opening. 1 more week of the Xeroform and Bactroban should heal that ear. Lateral foot looks much better even after only 1 EpiFix we will apply #2 today. Measurements are slightly smaller. No sign of infection Subjective Subjective Patient is happy with care and keeping his feet superclean Objective Data Objective Data Finished epi #1 EpiFix #2 will be applied looks clean margins look good filling in nicely depth is better no sign of infection noted. Vital Signs: Vital Signs Temp Pulse Resp BP 96.9 F L 82 20 H 106/61 03/09/23 11:02 03/09/23 11:02 03/09/23 11:02 03/09/23 11:02 Physical Exam Const oriented x3 General Appearance: cooperative Exam Limitations: no limitations HEENT normocephalic Head and Scalp: normal to inspection Face and Sinus: normal facial exam Nose: external nose normal General Ear: hearing grossly impaired External Ear: external ears normal Mouth: oral and palatal mucosa normal Eyes PERRL General Eye: normal appearance of both eyes Neck full ROM General: normal visual inspection Resp normal respiratory effort Effort and Inspection: able to speak in complete sentences Auscultation: clear to auscultation bilaterally Cardio regular rate and regular rhythm Palpation: normal PMI Rate: regular rate Rhythm: regular rhythm GI Auscultation: normoactive bowel sounds Palpation: soft and no hepatosplenomegaly external exam normal Back/Spine Cervical Spine: cervical ROM normal Thoracic Spine / Upper Back: normal to inspection Lumbar Spine / Lower Back: normal to inspection Extremity normal to inspection General Extremity: normal exam except as noted Skin Wounds: wounds noted Wound Narrative: Right lateral foot open wound from blister Left Pe?a superficial laceration in ear from trees branches Neuro oriented x3 Psych Appearance: grossly normal Speech: normal speech Thought Content: normal thought content Judgement: judgement good Debridement Note Debridement Note Wound debrided: Right lateral diabetic foot ulcer Laterality: Right Wound Grade/Stage: Stage II Type of Debridement: Excisional debridement Anesthesia Used: 5% Lidocaine Gel Depth: Down to and including healthy tissue and in the subcutaneous layer Percentage of wound debrided: 100 Instrument Used: 5mm curette Tissue Removed: Fibrin and some devitalized tissue Severity: Fat Layer Exposed Amount of bleeding with debridement: Mild Bleeding Controlled with: Compression and gauze Patient tolerated procedure: Patient tolerated procedure well Post-Debridement Measurements and Additional Note: Post-Debridement Measurements/Treatment BRUNO - Nurse 1 - General Ulcer Assessment Start: 03/02/23 11:05 Freq: Status: Active Protocol: ALEJANDRO Activity Type Activity Date Activity User E-sign Co-sign Detail Recorded Client Recorded Date Recorded By Document 03/02/23 11:10 RB [id number] 03/02/23 11:13 RB Document 03/09/23 11:02 DL [id number] 03/09/23 11:08 DL 03/02/23 03/09/23 11:10 11:02 - Today's Visit Information Type of service Follow-up Visit Follow-up Visit (Physician/WIND TECHNICIAN (Physician/WIND TECHNICIAN ) ) Arrival Mode Ambulatory Ambulatory Transfer Assistance None None Patient Identification Verified (Name & Yes Yes ) Patient Requires Transmission-Based No No Precautions Finger Stick Blood Sugar(mg/dl) (if not checked indicated): Blood Sugar Stated by Patient Vital Signs Temperature (97.8 F-99.1 F) 97 F L 96.9 F L Temperature Source Temporal Temporal Pulse Rate (60-100) 97 82 Pulse Location Monitor Monitor Respiratory Rate (12-18) 18 20 H Respiratory rate source Observation Observation Blood Pressure (90/60-120/80) 119/69 106/61 Blood Pressure Mean (mm Hg) 85 76 Source Monitor Monitor Position Semi-Fowlers Blood Pressure Location Left Arm History Since Last Visit- (Skip if this is Patient's initial visit) Have you changed medications since your No No last visit? Any new allergies or adverse reactions No No Had a fall/change in ADL's that may No No increase risk of falls Signs or symptoms of abuse and/or No No neglect since last visit Have you been in the hospital since your No No last visit? Has dressing in place as prescribed Yes Yes Has compression in place as prescribed No N/A Has offloadiing in place as prescribed No N/A Experienced any changes in pain level or No No management Pain Scale: 0-10 Numeric Is Patient Pain Free? Yes Yes WC - Nurse 1 - General Ulcer Measurement Start: 03/02/23 11:05 Freq: Status: Active Protocol: Activity Type Activity Date Activity User E-sign Co-sign Detail Recorded Client Recorded Date Recorded By Document 03/02/23 11:10 RB [id number] 03/02/23 11:13 RB Document 03/09/23 11:02 DL [id number] 03/09/23 11:08 DL 03/02/23 03/09/23 11:10 11:02 Wound Center Nurse 1 #2- L EAR -Combined with other wound No -Current Size (cm) - Length 0.1 0.6 -Current Size (cm) - Width 0.1 0.3 -Current Size (cm) - Depth 0.1 0.2 -Total Square Cm 0.01 0.18 -Tunneling No -Undermining/Tunneling No -Circular Undermining No -Exudate Amt Small None Present -Exudate Type Serosanguineous -Wound Margin Distinct, Distinct, Outline Outline Attached Attached -Granulation Amt Medium (34-66%) Small (1-33%) -Granulation Quality [place],Red -Slough/Fibrin Yes -Necrosis Amt Medium (34-66%) Small (1-33%) -Necrotic Tissue Type Adherent Slough Adherent Slough -Structure Exposed N/A -Texture (Laya-wound Skin Appearance) Assessed Scarring -Moisture (Laya-wound Skin Appearance) Assessed No Abnormality -Color (Laya-wound Skin Appearance) Assessed No Abnormality -Temperature (Laya-wound Skin No Abnormality No Abnormality Appearance) (Pt Warm) (Pt Warm) -Tenderness on Palpation (Laya-wound No No Skin Appearance) -Ulcer Cleansing Wound Cleanser Rinsed/ Irrigated with Saline -Foul Odor after Cleansing No No -Anesthetic Used 5% Lidocaine Gel #1- R LAT FOOT -Combined with other wound No -Current Size (cm) - Length 3 4 -Current Size (cm) - Width 1.4 1.2 -Current Size (cm) - Depth 0.2 0.2 -Total Square Cm 4.2 4.8 -Tunneling No -Undermining/Tunneling No -Circular Undermining No -Exudate Amt Medium Medium -Exudate Type Serosanguineous Serosanguineous -Wound Margin Distinct, Distinct, Outline Outline Attached Attached -Granulation Amt Medium (34-66%) Medium (34-66%) -Granulation Quality [place] -Slough/Fibrin Yes -Necrosis Amt Medium (34-66%) Medium (34-66%) -Necrotic Tissue Type Adherent Slough Adherent Slough -Structure Exposed N/A N/A -Texture (Laya-wound Skin Appearance) Assessed Scarring -Moisture (Laya-wound Skin Appearance) Assessed Maceration -Color (Laya-wound Skin Appearance) Assessed No Abnormality -Temperature (Laya-wound Skin No Abnormality No Abnormality Appearance) (Pt Warm) (Pt Warm) -Tenderness on Palpation (Laya-wound No No Skin Appearance) -Ulcer Cleansing Wound Cleanser Soap and Water -Foul Odor after Cleansing No Yes, Due to Product Use -Anesthetic Used 5% Lidocaine 5% Lidocaine Gel Gel WC - Nurse 2 - General Ulcer CM Notes Start: 03/02/23 11:05 Freq: Status: Active Protocol: Activity Type Activity Date Activity User E-sign Co-sign Detail Recorded Client Recorded Date Recorded By Document 03/02/23 11:24 MW [id number] 03/02/23 11:36 MW Edit Result 03/02/23 11:24 MW (1) [id number] 03/02/23 11:39 MW Document 03/09/23 11:24 MW [id number] 03/09/23 11:33 MW (1) #2- L EAR - Procedure Performed No => Yes - Type of Procedure => Debridement - Clinical Debridement => Subcutaneous - Tissue Removed => Subcutaneous - Tunneling => No - Undermining/Tunneling => No - Circular Undermining => No - Wound/Ulcer Outcome => Not Healed - Ulcer Cleansing => Rinsed/Irrigated => with Saline - Foul Odor after Cleansing => No - Bioengineered Tissue => No - Bleeding Controlled with => Pressure - Treatment Response => Procedure => Tolerated Well - Offloading => No - Debridement - Subq, 20sq cm => Yes 03/02/23 03/09/23 11:24 11:24 Wound Center Nurse 2 #2- L EAR -Time 11: 11:31 -Correct Patient Yes Yes -Correct Side, Site, Position Yes Yes -Correct Procedure Yes Yes -Procedure Performed Yes Yes -Type of Procedure Debridement Debridement -Clinical Debridement Subcutaneous Subcutaneous -Tissue Removed Subcutaneous Subcutaneous -Post Debridement (cm) - Length 0.4 -Post Debridement (cm) - Width 0.3 -Post Debridement (cm) - Depth 0.1 -Total Square (Post) (cm) 0.12 -Area of Debridement (cm) - Length 0.4 -Area of Debridement (cm) - Width 0.3 -Total Square (Area) (cm) 0.12 -Tunneling No No -Undermining/Tunneling No No -Circular Undermining No No -Wound/Ulcer Outcome Not Healed Not Healed -Ulcer Cleansing Rinsed/ Rinsed/ Irrigated with Irrigated with Saline Saline -Foul Odor after Cleansing No No -Bioengineered Tissue No No -Bleeding Controlled with Pressure Pressure -Treatment Response Procedure Procedure Tolerated Well Tolerated Well -Offloading No No -Debridement - Subq, 20sq cm Yes Yes #1- R LAT FOOT -Time 11: 11:29 -Correct Patient Yes Yes -Correct Side, Site, Position Yes Yes -Correct Procedure Yes Yes -Procedure Performed Yes Yes -Type of Procedure Debridement Debridement -Clinical Debridement Subcutaneous Subcutaneous -Tissue Removed Subcutaneous Subcutaneous -Post Debridement (cm) - Length 4.3 4.2 -Post Debridement (cm) - Width 1.4 1.3 -Post Debridement (cm) - Depth 0.2 0.2 -Total Square (Post) (cm) 6.02 5.46 -Area of Debridement (cm) - Length 4.3 4.2 -Area of Debridement (cm) - Width 1.4 1.3 -Total Square (Area) (cm) 6.02 5.46 -Tunneling No No -Undermining/Tunneling No No -Circular Undermining No No -Wound/Ulcer Outcome Not Healed Not Healed -Ulcer Cleansing Rinsed/ Rinsed/ Irrigated with Irrigated with Saline Saline -Foul Odor after Cleansing No No -Bioengineered Tissue Yes Yes -Type of Bioengineered Tissue Epifix Epifix Mesh -Expiration Date 10/31/27 11/30/27 -Product Lot Number [id number] -Percent Used 100 100 -Lot number of Saline Used [id number] -Bleeding Controlled with Pressure Pressure -Treatment Response Procedure Procedure Tolerated Well Tolerated Well -Offloading No No -Debridement - Subq, 1st 20sq cm No No -Apply Skin Sub - 1st 25 sq cm - Feet 1 -Apply Skin Sub - each addt'l 25 sq cm 1 - Feet -Epifix (per sq cm) 11 -Epifix Mesh (per sq cm) 11 Pain Scale: 0-10 Numeric Is Patient Pain Free? Yes Yes WC - Nurse 3 - General Ulcer D/C NN Start: 03/02/23 11:05 Freq: Status: Active Protocol: Activity Type Activity Date Activity User E-sign Co-sign Detail Recorded Client Recorded Date Recorded By Document 03/02/23 11:43 RB [id number] 03/02/23 11:45 RB Document 03/09/23 11:44 DL [id number] 03/09/23 11:46 DL 03/02/23 03/09/23 11:43 11:44 Wound Care Center Nurse 3 #2- L EAR -Ulcer Cleansing Rinsed/ Rinsed/ Irrigated with Irrigated with Saline Saline -Foul Odor after Cleansing No -Primary Dressing Applied NonAdherent Contact Layer -Other Dressing xeroform to L bactroban/ ear gauze xerofrom -Primary Dressing Covered/Secured with Dry Gauze, Dry Gauze, Secured with Secured with Tape Tape #1- R LAT FOOT -Ulcer Cleansing Rinsed/ Irrigated with Saline -Foul Odor after Cleansing No -Primary Dressing Applied Aquacel Extra, Aquacel Extra, Mepilex Border Mepilex Border -Other Dressing EpiFix -Primary Dressing Covered/Secured with Dry Gauze Dry Gauze & Roll Gauze, Secured with Tape -Aquacel Extra 1 1 -Mepilex Border 1 1 Treatment Response Procedure Procedure Tolerated Well Tolerated Well Pain Scale: 0-10 Numeric Is Patient Pain Free? Yes Yes WC - Visit Discharge Discharge Condition Stable Stable Ambulatory Status Ambulatory Ambulatory Transportation Private Auto Private Auto Medication Reconcilliation completed & No provided to patient/care provider Clinical Summary of Care Provided Yes Additional Wound Wound debrided: Left outer ear traumatic opening from a tree stick Laterality: Left Type of Debridement: Excisional debridement Anesthesia Used: 5% Lidocaine Gel Depth: Down to and including healthy tissue Percentage of wound debrided: 100 Instrument Used: 3mm curette Tissue Removed: Fibrin Severity: Limited To Skin Breakdown Amount of bleeding with debridement: Mild Bleeding Controlled with: Compression and gauze Patient tolerated procedure: Patient tolerated procedure well Assessment/Plan Assessment/Plan (1) Diabetic foot ulcer associated with type 2 diabetes mellitus: CODE(S): E11.621 - Type 2 diabetes mellitus with foot ulcer; L97.509 - Non-pressure chronic ulcer of other part of unspecified foot with unspecified severity QUALIFIERS: Diabetic foot ulcer location: midfoot Laterality: right Non-pressure ulcer stage: with fat layer exposed Qualified Code(s): E11.621 - Type 2 diabetes mellitus with foot ulcer; L97.412 - Non-pressure chronic ulcer of right heel and midfoot with fat layer exposed PLAN: Applied EpiFix #2 to right lateral foot veil was covered and Aquacel extra was placed on top for extra red of protection against infection. Patient is told he cannot get wet. Follow-up in 1 week (2) Decubitus ulcer of right foot, stage 2: CODE(S): L89.892 - Pressure ulcer of other site, stage 2 (3) Unspecified open wound of other part of head, initial encounter: CODE(S): S01.80XA - Unspecified open wound of other part of head, initial encounter PLAN: Wash with antibacterial soap and apply Bactroban to base then Xeroform dressing and leave open to air Patient has finished his linezolid
[2023-03-16 11:46] VITALS: BP 146/88; PULSE 81; RESP 18; TEMP 36.1
--- NOTE | 2023-03-16 12:33 | PCM.WC.PN ---
History of Present Illness Date of Service: 03/16/23 Chief Complaint: Follow-up on his left ear laceration from a tree branch and right lateral foot open wound from a blister that was over 1 month old. 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 He has poor hygiene habits. Had developed a blister from his shoe on the right lateral foot that is quite long about 4 cm x 1 cm wide. States it bled like everything because he is on Eliquis. Seeing bleeds stop to get the bleeding under control. Now has developed some slough and fibrous material in the center with I think over a venous vein. Patient has numbing and has no feeling in his lower leg but he does say his feet throb. He does have many comorbidities such as A-fib diabetes does have a defibrillator high cholesterol BPH Progress of Wound: Left ear is healed. Lateral foot looks much better ,EpiFix we will apply #3 today. Measurements are slightly smaller. No sign of infection Subjective Subjective Patient is good with outcomes Objective Data Objective Data Slightly smaller filling and healing nicely no sign of infection no odor noted. Patient is to finish his antibiotic therapy and reapply number epi #3 Vital Signs: Vital Signs Temp Pulse Resp BP 97 F L 81 18 146/88 H 03/16/23 11:46 03/16/23 11:46 03/16/23 11:46 03/16/23 11:46 Lab / Micro Data Attestation: I reviewed the patient's lab results. Physical Exam Const oriented x3 General Appearance: cooperative Exam Limitations: no limitations HEENT normocephalic Head and Scalp: normal to inspection Face and Sinus: normal facial exam Nose: external nose normal General Ear: hearing grossly impaired External Ear: external ears normal Mouth: oral and palatal mucosa normal Eyes PERRL General Eye: normal appearance of both eyes Neck full ROM General: normal visual inspection Resp normal respiratory effort Effort and Inspection: able to speak in complete sentences Auscultation: clear to auscultation bilaterally Cardio regular rate and regular rhythm Palpation: normal PMI Rate: regular rate Rhythm: regular rhythm GI Auscultation: normoactive bowel sounds Palpation: soft and no hepatosplenomegaly external exam normal Back/Spine Cervical Spine: cervical ROM normal Thoracic Spine / Upper Back: normal to inspection Lumbar Spine / Lower Back: normal to inspection Extremity normal to inspection General Extremity: normal exam except as noted Skin Wounds: wounds noted Wound Narrative: Right lateral foot open wound from blister Left Pe?a superficial laceration in ear from trees branches Neuro oriented x3 Psych Appearance: grossly normal Speech: normal speech Thought Content: normal thought content Judgement: judgement good Debridement Note Debridement Note Wound debrided: Right lateral foot diabetic foot ulcer Laterality: Right Wound Grade/Stage: Stage II Type of Debridement: Excisional debridement Anesthesia Used: 5% Lidocaine Gel Depth: in the subcutaneous layer Percentage of wound debrided: 100 Instrument Used: 5mm curette Tissue Removed: Fibrin Severity: Fat Layer Exposed Amount of bleeding with debridement: Mild Bleeding Controlled with: Pressure and Compression and gauze Patient tolerated procedure: Patient tolerated procedure well Post-Debridement Measurements and Additional Note: Post-Debridement Measurements/Treatment - Nurse 1 - General Ulcer Assessment Start: 03/02/23 11:05 Freq: Status: Active Protocol: ALEJANDRO Activity Type Activity Date Activity User E-sign Co-sign Detail Recorded Client Recorded Date Recorded By Document 03/02/23 11:10 RB [id number] 03/02/23 11:13 RB Document 03/09/23 11:02 DL [id number] 03/09/23 11:08 DL Document 03/16/23 11:46 RB [id number] 03/16/23 11:49 RB 03/02/23 03/09/23 03/16/23 11:10 11:02 11:46 - Today's Visit Information Type of service Follow-up Visit Follow-up Visit Follow-up Visit (Physician/TALENT DEVELOPMENT MANAGER (Physician/TALENT DEVELOPMENT MANAGER (Physician/TALENT DEVELOPMENT MANAGER ) ) ) Arrival Mode Ambulatory Ambulatory Ambulatory Transfer Assistance None None None Patient Identification Verified (Name & Yes Yes Yes ) Patient Requires Transmission-Based No No No Precautions Finger Stick Blood Sugar(mg/dl) (if not checked indicated): Blood Sugar Stated by Patient Vital Signs Temperature (97.8 F-99.1 F) 97 F L 96.9 F L 97 F L Temperature Source Temporal Temporal Temporal Pulse Rate (60-100) 97 82 81 Pulse Location Monitor Monitor Monitor Respiratory Rate (12-18) 18 20 H 18 Respiratory rate source Observation Observation Observation Blood Pressure (90/60-120/80) 119/69 106/61 146/88 H Blood Pressure Mean (mm Hg) 85 76 107 Source Monitor Monitor Monitor Position Semi-Fowlers Semi-Fowlers Blood Pressure Location Left Arm Left Arm History Since Last Visit- (Skip if this is Patient's initial visit) Have you changed medications since your No No No last visit? Any new allergies or adverse reactions No No No Had a fall/change in ADL's that may No No No increase risk of falls Signs or symptoms of abuse and/or No No No neglect since last visit Have you been in the hospital since your No No No last visit? Has dressing in place as prescribed Yes Yes Yes Has compression in place as prescribed No N/A No Has offloadiing in place as prescribed No N/A No Experienced any changes in pain level or No No No management Pain Scale: 0-10 Numeric Is Patient Pain Free? Yes Yes Yes WC - Nurse 1 - General Ulcer Measurement Start: 03/02/23 11:05 Freq: Status: Active Protocol: Activity Type Activity Date Activity User E-sign Co-sign Detail Recorded Client Recorded Date Recorded By Document 03/02/23 11:10 RB [id number] 03/02/23 11:13 RB Document 03/09/23 11:02 DL [id number] 03/09/23 11:08 DL Document 03/16/23 11:46 RB [id number] 03/16/23 11:49 RB 03/02/23 03/09/23 03/16/23 11:10 11:02 11:46 Wound Center Nurse 1 #2- L EAR -Combined with other wound No No -Current Size (cm) - Length 0.1 0.6 0.1 -Current Size (cm) - Width 0.1 0.3 0.1 -Current Size (cm) - Depth 0.1 0.2 0.1 -Total Square Cm 0.01 0.18 0.01 -Tunneling No No -Undermining/Tunneling No No -Circular Undermining No No -Exudate Amt Small None Present -Exudate Type Serosanguineous -Wound Margin Distinct, Distinct, Outline Outline Attached Attached -Granulation Amt Medium (34-66%) Small (1-33%) Medium (34-66%) -Granulation Quality [place] -Slough/Fibrin Yes Yes -Necrosis Amt Medium (34-66%) Small (1-33%) Small (1-33%) -Necrotic Tissue Type Adherent Slough Adherent Slough Adherent Slough -Structure Exposed N/A N/A -Texture (Laya-wound Skin Appearance) Assessed Scarring Assessed -Moisture (Laya-wound Skin Appearance) Assessed No Abnormality Assessed -Color (Laya-wound Skin Appearance) Assessed No Abnormality Assessed -Temperature (Laya-wound Skin No Abnormality No Abnormality No Abnormality Appearance) (Pt Warm) (Pt Warm) (Pt Warm) -Tenderness on Palpation (Laya-wound No No No Skin Appearance) -Ulcer Cleansing Wound Cleanser Rinsed/ Wound Cleanser Irrigated with Saline -Foul Odor after Cleansing No No No -Anesthetic Used 5% Lidocaine 5% Lidocaine Gel Gel #1- R LAT FOOT -Combined with other wound No No -Current Size (cm) - Length 3 4 4 -Current Size (cm) - Width 1.4 1.2 1 -Current Size (cm) - Depth 0.2 0.2 0.1 -Total Square Cm 4.2 4.8 4 -Tunneling No No -Undermining/Tunneling No No -Circular Undermining No No -Exudate Amt Medium Medium Medium -Exudate Type Serosanguineous Serosanguineous Serosanguineous -Wound Margin Distinct, Distinct, Distinct, Outline Outline Outline Attached Attached Attached -Granulation Amt Medium (34-66%) Medium (34-66%) Medium (34-66%) -Granulation Quality [place] -Slough/Fibrin Yes Yes -Necrosis Amt Medium (34-66%) Medium (34-66%) Medium (34-66%) -Necrotic Tissue Type Adherent Slough Adherent Slough Adherent Slough -Structure Exposed N/A N/A N/A -Texture (Laya-wound Skin Appearance) Assessed Scarring Assessed -Moisture (Laya-wound Skin Appearance) Assessed Maceration Assessed, Maceration -Color (Laya-wound Skin Appearance) Assessed No Abnormality Assessed -Temperature (Laya-wound Skin No Abnormality No Abnormality No Abnormality Appearance) (Pt Warm) (Pt Warm) (Pt Warm) -Tenderness on Palpation (Laya-wound No No No Skin Appearance) -Ulcer Cleansing Wound Cleanser Soap and Water Wound Cleanser -Foul Odor after Cleansing No Yes, Due to No Product Use -Anesthetic Used 5% Lidocaine 5% Lidocaine 5% Lidocaine Gel Gel Gel Lower Limb Edema Present Yes Right Calf (cm) 36 Right Ankle (cm) 22 WC - Nurse 2 - General Ulcer CM Notes Start: 03/02/23 11:05 Freq: Status: Active Protocol: Activity Type Activity Date Activity User E-sign Co-sign Detail Recorded Client Recorded Date Recorded By Document 03/02/23 11:24 MW [id number] 03/02/23 11:36 MW Edit Result 03/02/23 11:24 MW (1) [id number] 03/02/23 11:39 MW Document 03/09/23 11:24 MW [id number] 03/09/23 11:33 MW Document 03/16/23 11:49 MW [id number] 03/16/23 11:56 MW (1) #2- L EAR - Procedure Performed No => Yes - Type of Procedure => Debridement - Clinical Debridement => Subcutaneous - Tissue Removed => Subcutaneous - Tunneling => No - Undermining/Tunneling => No - Circular Undermining => No - Wound/Ulcer Outcome => Not Healed - Ulcer Cleansing => Rinsed/Irrigated => with Saline - Foul Odor after Cleansing => No - Bioengineered Tissue => No - Bleeding Controlled with => Pressure - Treatment Response => Procedure => Tolerated Well - Offloading => No - Debridement - Subq, 1st 20sq cm => Yes 03/02/23 03/09/23 03/16/23 11:24 11:24 11:49 Wound Center Nurse 2 #2- L EAR -Time 11:25 11:31 11:52 -Correct Patient Yes Yes Yes -Correct Side, Site, Position Yes Yes Yes -Correct Procedure Yes Yes Yes -Procedure Performed Yes Yes No -Type of Procedure Debridement Debridement -Clinical Debridement Subcutaneous Subcutaneous -Tissue Removed Subcutaneous Subcutaneous -Post Debridement (cm) - Length 0.4 0 -Post Debridement (cm) - Width 0.3 0 -Post Debridement (cm) - Depth 0.1 0 -Total Square (Post) (cm) 0.12 0 -Area of Debridement (cm) - Length 0.4 -Area of Debridement (cm) - Width 0.3 -Total Square (Area) (cm) 0.12 -Tunneling No No -Undermining/Tunneling No No -Circular Undermining No No -Wound/Ulcer Outcome Not Healed Not Healed Healed- Epithelialized -Ulcer Cleansing Rinsed/ Rinsed/ Irrigated with Irrigated with Saline Saline -Foul Odor after Cleansing No No -Bioengineered Tissue No No -Bleeding Controlled with Pressure Pressure -Treatment Response Procedure Procedure Tolerated Well Tolerated Well -Offloading No No -Debridement - Subq, 1st 20sq cm Yes Yes #1- R LAT FOOT -Time 11:25 11:29 11:53 -Correct Patient Yes Yes Yes -Correct Side, Site, Position Yes Yes Yes -Correct Procedure Yes Yes Yes -Procedure Performed Yes Yes Yes -Type of Procedure Debridement Debridement Debridement -Clinical Debridement Subcutaneous Subcutaneous Subcutaneous -Tissue Removed Subcutaneous Subcutaneous Subcutaneous -Post Debridement (cm) - Length 4.3 4.2 4.1 -Post Debridement (cm) - Width 1.4 1.3 1.2 -Post Debridement (cm) - Depth 0.2 0.2 0.2 -Total Square (Post) (cm) 6.02 5.46 4.92 -Area of Debridement (cm) - Length 4.3 4.2 4.1 -Area of Debridement (cm) - Width 1.4 1.3 1.2 -Total Square (Area) (cm) 6.02 5.46 4.92 -Tunneling No No No -Undermining/Tunneling No No No -Circular Undermining No No No -Wound/Ulcer Outcome Not Healed Not Healed Not Healed -Ulcer Cleansing Rinsed/ Rinsed/ Rinsed/ Irrigated with Irrigated with Irrigated with Saline Saline Saline -Foul Odor after Cleansing No No No -Bioengineered Tissue Yes Yes Yes -Type of Bioengineered Tissue Epifix Epifix Mesh Epifix -Expiration Date 10/31/27 11/30/27 10/31/27 -Product Lot Number [id number] -Percent Used 100 100 100 -Lot number of Saline Used [id number] -Bleeding Controlled with Pressure Pressure Pressure -Treatment Response Procedure Procedure Procedure Tolerated Well Tolerated Well Tolerated Well -Offloading No No No -Debridement - Subq, 1st 20sq cm No No No -Apply Skin Sub - 1st 25 sq cm - Legs 1 -Apply Skin Sub - 1st 25 sq cm - Feet 1 -Apply Skin Sub - each addt'l 25 sq cm 1 - Feet -Epifix (per sq cm) 11 4 -Epifix Mesh (per sq cm) 11 Pain Scale: 0-10 Numeric Is Patient Pain Free? Yes Yes Yes - Nurse 3 - General Ulcer D/C NN Start: 03/02/23 11:05 Freq: Status: Active Protocol: Activity Type Activity Date Activity User E-sign Co-sign Detail Recorded Client Recorded Date Recorded By Document 03/02/23 11:43 RB [id number] 03/02/23 11:45 RB Document 03/09/23 11:44 DL [id number] 03/09/23 11:46 DL Document 03/16/23 12:06 [facility] [id number] 03/16/23 12:07 F 03/02/23 03/09/23 03/16/23 11:43 11:44 12:06 Wound Care Center Nurse 3 #2- L EAR -Ulcer Cleansing Rinsed/ Rinsed/ Irrigated with Irrigated with Saline Saline -Foul Odor after Cleansing No -Primary Dressing Applied NonAdherent Contact Layer -Other Dressing xeroform to L bactroban/ ear gauze xerofrom -Primary Dressing Covered/Secured with Dry Gauze, Dry Gauze, Secured with Secured with Tape Tape #1- R LAT FOOT -Ulcer Cleansing Rinsed/ Irrigated with Saline -Foul Odor after Cleansing No -Primary Dressing Applied Aquacel Extra, Aquacel Extra, Aquacel Extra, Mepilex Border Mepilex Border Mepilex Border -Other Dressing EpiFix EPIFIX; DRSG PER RB RN -Primary Dressing Covered/Secured with Dry Gauze Dry Gauze & Dry Gauze & Roll Gauze, Roll Gauze, Secured with Secured with Tape Tape -Aquacel Extra 1 1 1 -Mepilex Border 1 1 1 Treatment Response Procedure Procedure Procedure Tolerated Well Tolerated Well Tolerated Well Pain Scale: 0-10 Numeric Is Patient Pain Free? Yes Yes Yes WC - Visit Discharge Discharge Condition Stable Stable Stable Ambulatory Status Ambulatory Ambulatory Ambulatory Transportation Private Auto Private Auto Private Auto Medication Reconcilliation completed & No provided to patient/care provider Clinical Summary of Care Provided Yes Assessment/Plan Assessment/Plan (1) Diabetic foot ulcer associated with type 2 diabetes mellitus: CODE(S): E11.621 - Type 2 diabetes mellitus with foot ulcer; L97.509 - Non-pressure chronic ulcer of other part of unspecified foot with unspecified severity QUALIFIERS: Diabetic foot ulcer location: midfoot Laterality: right Non-pressure ulcer stage: with fat layer exposed Qualified Code(s): E11.621 - Type 2 diabetes mellitus with foot ulcer; L97.412 - Non-pressure chronic ulcer of right heel and midfoot with fat layer exposed PLAN: Applied EpiFix #3 to right lateral foot veil was covered and Aquacel extra was placed on top for extra red of protection against infection. Patient is told he cannot get wet.\ Finish antibiotic therapy Follow-up in 1 week (2) Decubitus ulcer of right foot, stage 2: CODE(S): L89.892 - Pressure ulcer of other site, stage 2 (3) Unspecified open wound of other part of head, initial encounter: CODE(S): S01.80XA - Unspecified open wound of other part of head, initial encounter PLAN: Left ear healed discontinue treatments
[2023-03-23 10:45] VITALS: BP 117/64; PULSE 64; RESP 16
--- NOTE | 2023-03-23 12:49 | PN.PCM_ITS ---
History of Present Illness Date of Service: 03/23/23 Chief Complaint: Follow-up on his left ear laceration from a tree branch and right lateral foot open wound from a blister that was over 1 month old. 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 He has poor hygiene habits. Had developed a blister from his shoe on the right lateral foot that is quite long about 4 cm x 1 cm wide. States it bled like everything because he is on Eliquis. Seeing bleeds stop to get the bleeding under control. Now has developed some slough and fibrous material in the center with I think over a venous vein. Patient has numbing and has no feeling in his lower leg but he does say his feet throb. He does have many comorbidities such as A-fib diabetes does have a defibrillator high cholesterol BPH Progress of Wound: Left ear is healed. Lateral foot looks much better ,EpiFix we will apply #4 today. Measurements are slightly smaller. No sign of infection But still has a bunch of maceration around the edge debrided off again. 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 Suggested he change his socks twice a day and come in on Tuesday for dressing change. Subjective Subjective Patient is happy with outcomes Objective Data Objective Data Left ear still looks good scabbed Right lateral foot open starting to see skin buds in the base filling in measures smaller still has some maceration around the edge we will continue to pad better we will continue using epi fix Vital Signs: Vital Signs Temp Pulse Resp BP O2 Del Method 97 F L 64 16 117/64 Room Air 03/16/23 11:46 03/23/23 10:45 03/23/23 10:45 03/23/23 10:45 03/23/23 10:45 Oxygen Delivery Method Room Air Physical Exam Const oriented x3 General Appearance: cooperative Exam Limitations: no limitations HEENT normocephalic Head and Scalp: normal to inspection Face and Sinus: normal facial exam Nose: external nose normal General Ear: hearing grossly impaired External Ear: external ears normal Mouth: oral and palatal mucosa normal Eyes PERRL General Eye: normal appearance of both eyes Neck full ROM General: normal visual inspection Resp normal respiratory effort Effort and Inspection: able to speak in complete sentences Auscultation: clear to auscultation bilaterally Cardio regular rate and regular rhythm Palpation: normal PMI Rate: regular rate Rhythm: regular rhythm GI Auscultation: normoactive bowel sounds Palpation: soft and no hepatosplenomegaly external exam normal Back/Spine Cervical Spine: cervical ROM normal Thoracic Spine / Upper Back: normal to inspection Lumbar Spine / Lower Back: normal to inspection Extremity normal to inspection General Extremity: normal exam except as noted Skin Wounds: wounds noted Wound Narrative: Right lateral foot open wound from blister Left Pe?a superficial laceration in ear from trees branches Neuro oriented x3 Psych Appearance: grossly normal Speech: normal speech Thought Content: normal thought content Judgement: judgement good Debridement Note Debridement Note Wound debrided: Right lateral foot Laterality: Right Type of Debridement: Excisional debridement Anesthesia Used: 5% Lidocaine Gel Depth: in the subcutaneous layer Percentage of wound debrided: 100 Instrument Used: 5mm curette Tissue Removed: Fibrin And Some maceration Severity: Fat Layer Exposed Amount of bleeding with debridement: Mild Bleeding Controlled with: Compression and gauze Patient tolerated procedure: Patient tolerated procedure well Post-Debridement Measurements and Additional Note: Post-Debridement Measurements/Treatment - Nurse 1 - General Ulcer Assessment Start: 03/02/23 11:05 Freq: Status: Active Protocol: ALEJNADRO Activity Type Activity Date Activity User E-sign Co-sign Detail Recorded Client Recorded Date Recorded By Document 03/02/23 11:10 RB [id number] 03/02/23 11:13 RB Document 03/09/23 11:02 DL [id number] 03/09/23 11:08 DL Document 03/16/23 11:46 RB [id number] 03/16/23 11:49 RB Document 03/23/23 10:45 [facility] Desktop 03/23/23 10:55 [facility] 03/02/23 03/09/23 03/16/23 11:10 11:02 11:46 - Today's Visit Information Type of service Follow-up Visit Follow-up Visit Follow-up Visit (Physician/STAFFING DIRECTOR (Physician/STAFFING DIRECTOR (Physician/STAFFING DIRECTOR ) ) ) Arrival Mode Ambulatory Ambulatory Ambulatory Transfer Assistance None None None Patient Identification Verified (Name & Yes Yes Yes ) Patient Requires Transmission-Based No No No Precautions Finger Stick Blood Sugar(mg/dl) (if not checked indicated): Blood Sugar Stated by Patient Vital Signs Temperature (97.8 F-99.1 F) 97 F L 96.9 F L 97 F L Temperature Source Temporal Temporal Temporal Pulse Rate (60-100) 97 82 81 Pulse Location Monitor Monitor Monitor Respiratory Rate (12-18) 18 20 H 18 Respiratory rate source Observation Observation Observation Oxygen Delivery Method Blood Pressure (90/60-120/80) 119/69 106/61 146/88 H Blood Pressure Mean (mm Hg) 85 76 107 Source Monitor Monitor Monitor Position Semi-Fowlers Semi-Fowlers Blood Pressure Location Left Arm Left Arm History Since Last Visit- (Skip if this is Patient's initial visit) Have you changed medications since your No No No last visit? Any new allergies or adverse reactions No No No Had a fall/change in ADL's that may No No No increase risk of falls Signs or symptoms of abuse and/or No No No neglect since last visit Have you been in the hospital since your No No No last visit? Has dressing in place as prescribed Yes Yes Yes Has compression in place as prescribed No N/A No Has offloadiing in place as prescribed No N/A No Experienced any changes in pain level or No No No management Left Footwear Right Footwear Pain Scale: 0-10 Numeric Is Patient Pain Free? Yes Yes Yes 03/23/23 10:45 WC - Today's Visit Information Type of service Follow-up Visit (Physician/STAFFING DIRECTOR ) Arrival Mode Ambulatory Transfer Assistance None Patient Identification Verified (Name & Yes ) Patient Requires Transmission-Based No Precautions Finger Stick Blood Sugar(mg/dl) (if indicated): Blood Sugar Vital Signs Temperature (97.8 F-99.1 F) Temperature Source Pulse Rate (60-100) 64 Pulse Location Monitor Respiratory Rate (12-18) 16 Respiratory rate source Observation Oxygen Delivery Method Room Air Blood Pressure (90/60-120/80) 117/64 Blood Pressure Mean (mm Hg) 81 Source Monitor Position Sitting Blood Pressure Location Left Arm History Since Last Visit- (Skip if this is Patient's initial visit) Have you changed medications since your No last visit? Any new allergies or adverse reactions No Had a fall/change in ADL's that may No increase risk of falls Signs or symptoms of abuse and/or No neglect since last visit Have you been in the hospital since your No last visit? Has dressing in place as prescribed Yes Has compression in place as prescribed N/A Has offloadiing in place as prescribed N/A Experienced any changes in pain level or No management Left Footwear Regular Shoe Right Footwear Regular Shoe Pain Scale: 0-10 Numeric Is Patient Pain Free? Yes WC - Nurse 1 - General Ulcer Measurement Start: 03/02/23 11:05 Freq: Status: Active Protocol: Activity Type Activity Date Activity User E-sign Co-sign Detail Recorded Client Recorded Date Recorded By Document 03/02/23 11:10 RB [id number] 03/02/23 11:13 RB Document 03/09/23 11:02 DL [id number] 03/09/23 11:08 DL Document 03/16/23 11:46 RB [id number] 03/16/23 11:49 RB Document 03/23/23 10:45 BMF Desktop 03/23/23 10:55 BMF 03/02/23 03/09/23 03/16/23 11:10 11:02 11:46 Wound Center Nurse 1 #2- L EAR -Combined with other wound No No -Current Size (cm) - Length 0.1 0.6 0.1 -Current Size (cm) - Width 0.1 0.3 0.1 -Current Size (cm) - Depth 0.1 0.2 0.1 -Total Square Cm 0.01 0.18 0.01 -Tunneling No No -Undermining/Tunneling No No -Circular Undermining No No -Exudate Amt Small None Present -Exudate Type Serosanguineous -Wound Margin Distinct, Distinct, Outline Outline Attached Attached -Granulation Amt Medium (34-66%) Small (1-33%) Medium (34-66%) -Granulation Quality [place] -Slough/Fibrin Yes Yes -Necrosis Amt Medium (34-66%) Small (1-33%) Small (1-33%) -Necrotic Tissue Type Adherent Slough Adherent Slough Adherent Slough -Structure Exposed N/A N/A -Texture (Laya-wound Skin Appearance) Assessed Scarring Assessed -Moisture (Laya-wound Skin Appearance) Assessed No Abnormality Assessed -Color (Laya-wound Skin Appearance) Assessed No Abnormality Assessed -Temperature (Laya-wound Skin No Abnormality No Abnormality No Abnormality Appearance) (Pt Warm) (Pt Warm) (Pt Warm) -Tenderness on Palpation (Laya-wound No No No Skin Appearance) -Ulcer Cleansing Wound Cleanser Rinsed/ Wound Cleanser Irrigated with Saline -Foul Odor after Cleansing No No No -Anesthetic Used 5% Lidocaine 5% Lidocaine Gel Gel #1- R LAT FOOT -Combined with other wound No No -Current Size (cm) - Length 3 4 4 -Current Size (cm) - Width 1.4 1.2 1 -Current Size (cm) - Depth 0.2 0.2 0.1 -Total Square Cm 4.2 4.8 4 -Date of Last Picture (Recall this field) -Photo Taken -Epithelialization -Tunneling No No -Undermining/Tunneling No No -Circular Undermining No No -Exudate Amt Medium Medium Medium -Exudate Type Serosanguineous Serosanguineous Serosanguineous -Wound Margin Distinct, Distinct, Distinct, Outline Outline Outline Attached Attached Attached -Granulation Amt Medium (34-66%) Medium (34-66%) Medium (34-66%) -Granulation Quality [place] -Slough/Fibrin Yes Yes -Necrosis Amt Medium (34-66%) Medium (34-66%) Medium (34-66%) -Necrotic Tissue Type Adherent Slough Adherent Slough Adherent Slough -Structure Exposed N/A N/A N/A -Texture (Laya-wound Skin Appearance) Assessed Scarring Assessed -Moisture (Laya-wound Skin Appearance) Assessed Maceration Assessed, Maceration -Color (Laya-wound Skin Appearance) Assessed No Abnormality Assessed -Temperature (Laya-wound Skin No Abnormality No Abnormality No Abnormality Appearance) (Pt Warm) (Pt Warm) (Pt Warm) -Tenderness on Palpation (Laya-wound No No No Skin Appearance) -Ulcer Cleansing Wound Cleanser Soap and Water Wound Cleanser -Foul Odor after Cleansing No Yes, Due to No Product Use -Anesthetic Used 5% Lidocaine 5% Lidocaine 5% Lidocaine Gel Gel Gel Lower Limb Edema Present Yes Right Calf (cm) 36 Right Ankle (cm) 03/23/23 10:45 Wound Center Nurse 1 #2- L EAR -Combined with other wound -Current Size (cm) - Length -Current Size (cm) - Width -Current Size (cm) - Depth -Total Square Cm -Tunneling -Undermining/Tunneling -Circular Undermining -Exudate Amt -Exudate Type -Wound Margin -Granulation Amt -Granulation Quality -Slough/Fibrin -Necrosis Amt -Necrotic Tissue Type -Structure Exposed -Texture (Laya-wound Skin Appearance) -Moisture (Laya-wound Skin Appearance) -Color (Laya-wound Skin Appearance) -Temperature (Laya-wound Skin Appearance) -Tenderness on Palpation (Laya-wound Skin Appearance) -Ulcer Cleansing -Foul Odor after Cleansing -Anesthetic Used #1- R LAT FOOT -Combined with other wound No -Current Size (cm) - Length 4.3 -Current Size (cm) - Width 1 -Current Size (cm) - Depth 0.1 -Total Square Cm 4.3 -Date of Last Picture (Recall this 03/23/23 field) -Photo Taken Yes -Epithelialization Small 1-33% -Tunneling No -Undermining/Tunneling No -Circular Undermining No -Exudate Amt Large -Exudate Type Serosanguineous -Wound Margin Distinct, Outline Attached -Granulation Amt Medium (34-66%) -Granulation Quality Red -Slough/Fibrin Yes -Necrosis Amt Medium (34-66%) -Necrotic Tissue Type Adherent Slough -Structure Exposed -Texture (Laya-wound Skin Appearance) Assessed, Scarring -Moisture (Laya-wound Skin Appearance) Assessed -Color (Laya-wound Skin Appearance) Assessed, Erythema -Temperature (Laya-wound Skin No Abnormality Appearance) (Pt Warm) -Tenderness on Palpation (Laya-wound No Skin Appearance) -Ulcer Cleansing Soap and Water -Foul Odor after Cleansing No -Anesthetic Used 5% Lidocaine Gel Lower Limb Edema Present Right Calf (cm) Right Ankle (cm) WC - Nurse 2 - General Ulcer CM Notes Start: 03/02/23 11:05 Freq: Status: Active Protocol: Activity Type Activity Date Activity User E-sign Co-sign Detail Recorded Client Recorded Date Recorded By Document 03/02/23 11:24 MW [id number] 03/02/23 11:36 MW Edit Result 03/02/23 11:24 MW (1) [id number] 03/02/23 11:39 MW Document 03/09/23 11:24 MW [id number] 03/09/23 11:33 MW Document 03/16/23 11:49 MW [id number] 03/16/23 11:56 MW Document 03/23/23 11:08 MW [id number] 03/23/23 11:14 MW (1) #2- L EAR - Procedure Performed No => Yes - Type of Procedure => Debridement - Clinical Debridement => Subcutaneous - Tissue Removed => Subcutaneous - Tunneling => No - Undermining/Tunneling => No - Circular Undermining => No - Wound/Ulcer Outcome => Not Healed - Ulcer Cleansing => Rinsed/Irrigated => with Saline - Foul Odor after Cleansing => No - Bioengineered Tissue => No - Bleeding Controlled with => Pressure - Treatment Response => Procedure => Tolerated Well - Offloading => No - Debridement - Subq, 1st 20sq cm => Yes 03/02/23 03/09/23 03/16/23 11:24 11:24 11:49 Wound Center Nurse 2 #2- L EAR -Time 11: 11:31 11:52 -Correct Patient Yes Yes Yes -Correct Side, Site, Position Yes Yes Yes -Correct Procedure Yes Yes Yes -Procedure Performed Yes Yes No -Type of Procedure Debridement Debridement -Clinical Debridement Subcutaneous Subcutaneous -Tissue Removed Subcutaneous Subcutaneous -Post Debridement (cm) - Length 0.4 0 -Post Debridement (cm) - Width 0.3 0 -Post Debridement (cm) - Depth 0.1 0 -Total Square (Post) (cm) 0.12 0 -Area of Debridement (cm) - Length 0.4 -Area of Debridement (cm) - Width 0.3 -Total Square (Area) (cm) 0.12 -Tunneling No No -Undermining/Tunneling No No -Circular Undermining No No -Wound/Ulcer Outcome Not Healed Not Healed Healed- Epithelialized -Ulcer Cleansing Rinsed/ Rinsed/ Irrigated with Irrigated with Saline Saline -Foul Odor after Cleansing No No -Bioengineered Tissue No No -Bleeding Controlled with Pressure Pressure -Treatment Response Procedure Procedure Tolerated Well Tolerated Well -Offloading No No -Debridement - Subq, 1st 20sq cm Yes Yes #1- R LAT FOOT -Time 11: 11:29 11:53 -Correct Patient Yes Yes Yes -Correct Side, Site, Position Yes Yes Yes -Correct Procedure Yes Yes Yes -Procedure Performed Yes Yes Yes -Type of Procedure Debridement Debridement Debridement -Clinical Debridement Subcutaneous Subcutaneous Subcutaneous -Tissue Removed Subcutaneous Subcutaneous Subcutaneous -Post Debridement (cm) - Length 4.3 4.2 4.1 -Post Debridement (cm) - Width 1.4 1.3 1.2 -Post Debridement (cm) - Depth 0.2 0.2 0.2 -Total Square (Post) (cm) 6.02 5.46 4.92 -Area of Debridement (cm) - Length 4.3 4.2 4.1 -Area of Debridement (cm) - Width 1.4 1.3 1.2 -Total Square (Area) (cm) 6.02 5.46 4.92 -Tunneling No No No -Undermining/Tunneling No No No -Circular Undermining No No No -Wound/Ulcer Outcome Not Healed Not Healed Not Healed -Ulcer Cleansing Rinsed/ Rinsed/ Rinsed/ Irrigated with Irrigated with Irrigated with Saline Saline Saline -Foul Odor after Cleansing No No No -Bioengineered Tissue Yes Yes Yes -Type of Bioengineered Tissue Epifix Epifix Mesh Epifix -Expiration Date 10/31/27 11/30/27 10/31/27 -Product Lot Number [id number] -Percent Used 100 100 100 -Lot number of Saline Used [id number] -Bleeding Controlled with Pressure Pressure Pressure -Treatment Response Procedure Procedure Procedure Tolerated Well Tolerated Well Tolerated Well -Offloading No No No -Debridement - Subq, 1st 20sq cm No No No -Apply Skin Sub - 1st 25 sq cm - Legs 1 -Apply Skin Sub - 1st 25 sq cm - Feet 1 -Apply Skin Sub - each addt'l 25 sq cm 1 - Feet -Epifix (per sq cm) 11 4 -Epifix Mesh (per sq cm) 11 Pain Scale: 0-10 Numeric Is Patient Pain Free? Yes Yes Yes 03/23/23 11:08 Wound Center Nurse 2 #2- L EAR -Time -Correct Patient -Correct Side, Site, Position -Correct Procedure -Procedure Performed -Type of Procedure -Clinical Debridement -Tissue Removed -Post Debridement (cm) - Length -Post Debridement (cm) - Width -Post Debridement (cm) - Depth -Total Square (Post) (cm) -Area of Debridement (cm) - Length -Area of Debridement (cm) - Width -Total Square (Area) (cm) -Tunneling -Undermining/Tunneling -Circular Undermining -Wound/Ulcer Outcome -Ulcer Cleansing -Foul Odor after Cleansing -Bioengineered Tissue -Bleeding Controlled with -Treatment Response -Offloading -Debridement - Subq, 1st 20sq cm #1- R LAT FOOT -Time 11:09 -Correct Patient Yes -Correct Side, Site, Position Yes -Correct Procedure Yes -Procedure Performed Yes -Type of Procedure Debridement -Clinical Debridement Subcutaneous -Tissue Removed Subcutaneous -Post Debridement (cm) - Length 4.0 -Post Debridement (cm) - Width 1.1 -Post Debridement (cm) - Depth 0.2 -Total Square (Post) (cm) 4.40 -Area of Debridement (cm) - Length 4.0 -Area of Debridement (cm) - Width 1.1 -Total Square (Area) (cm) 4.40 -Tunneling No -Undermining/Tunneling No -Circular Undermining No -Wound/Ulcer Outcome Not Healed -Ulcer Cleansing Rinsed/ Irrigated with Saline -Foul Odor after Cleansing No -Bioengineered Tissue Yes -Type of Bioengineered Tissue Epifix -Expiration Date 10/31/27 -Product Lot Number [id number] -Percent Used 100 -Lot number of Saline Used [id number] -Bleeding Controlled with Pressure -Treatment Response Procedure Tolerated Well -Offloading No -Debridement - Subq, 1st 20sq cm No -Apply Skin Sub - 1st 25 sq cm - Legs -Apply Skin Sub - 1st 25 sq cm - Feet 1 -Apply Skin Sub - each addt'l 25 sq cm - Feet -Epifix (per sq cm) 4 -Epifix Mesh (per sq cm) Pain Scale: 0-10 Numeric Is Patient Pain Free? Yes WC - Nurse 3 - General Ulcer D/C NN Start: 03/02/23 11:05 Freq: Status: Active Protocol: Activity Type Activity Date Activity User E-sign Co-sign Detail Recorded Client Recorded Date Recorded By Document 03/02/23 11:43 RB [id number] 03/02/23 11:45 RB Document 03/09/23 11:44 DL [id number] 03/09/23 11:46 DL Document 03/16/23 12:06 BMF [id number] 03/16/23 12:07 BMF Document 03/23/23 11:15 MW [id number] 03/23/23 11:16 MW Edit Result 03/23/23 11:15 MW (1) [id number] 03/23/23 11:21 MW (1) #1- R LAT FOOT - Primary Dressing Applied Aquacel Extra, => Aquacel Extra Mepilex Border => - Mepilex Border 1 => 03/02/23 03/09/23 03/16/23 11:43 11:44 12:06 Wound Care Center Nurse 3 #2- L EAR -Ulcer Cleansing Rinsed/ Rinsed/ Irrigated with Irrigated with Saline Saline -Foul Odor after Cleansing No -Primary Dressing Applied NonAdherent Contact Layer -Other Dressing xeroform to L bactroban/ ear gauze xerofrom -Primary Dressing Covered/Secured with Dry Gauze, Dry Gauze, Secured with Secured with Tape Tape #1- R LAT FOOT -Ulcer Cleansing Rinsed/ Irrigated with Saline -Foul Odor after Cleansing No -Negative Pressure Wound Therapy -Primary Dressing Applied Aquacel Extra, Aquacel Extra, Aquacel Extra, Mepilex Border Mepilex Border Mepilex Border -Other Dressing EpiFix EPIFIX; DRSG PER RB RN -Primary Dressing Covered/Secured with Dry Gauze Dry Gauze & Dry Gauze & Roll Gauze, Roll Gauze, Secured with Secured with Tape Tape -Aquacel Extra 1 1 1 -Mepilex Border 1 1 1 Treatment Response Procedure Procedure Procedure Tolerated Well Tolerated Well Tolerated Well Pain Scale: 0-10 Numeric Is Patient Pain Free? Yes Yes Yes Teaching: Wound Center Dressing Your Wound -Person Taught -Teaching Method -Response to teaching WC - Visit Discharge Discharge Condition Stable Stable Stable Ambulatory Status Ambulatory Ambulatory Ambulatory Transportation Private Auto Private Auto Private Auto Accompanied by Medication Reconcilliation completed & No provided to patient/care provider Clinical Summary of Care Provided Yes 03/23/23 11:15 Wound Care Center Nurse 3 #2- L EAR -Ulcer Cleansing -Foul Odor after Cleansing -Primary Dressing Applied -Other Dressing -Primary Dressing Covered/Secured with #1- R LAT FOOT -Ulcer Cleansing Not Cleansed -Foul Odor after Cleansing No -Negative Pressure Wound Therapy N/A -Primary Dressing Applied Aquacel Extra -Other Dressing -Primary Dressing Covered/Secured with -Aquacel Extra 1 -Mepilex Border Treatment Response Procedure Tolerated Well Pain Scale: 0-10 Numeric Is Patient Pain Free? Yes Teaching: Wound Center Dressing Your Wound -Person Taught Patient -Teaching Method Discussion, Demonstration -Response to teaching Verbalize understanding WC - Visit Discharge Discharge Condition Stable Ambulatory Status Ambulatory Transportation Private Auto Accompanied by self Medication Reconcilliation completed & No provided to patient/care provider Clinical Summary of Care Provided Yes Assessment/Plan Assessment/Plan (1) Diabetic foot ulcer associated with type 2 diabetes mellitus: CODE(S): E11.621 - Type 2 diabetes mellitus with foot ulcer; L97.509 - Non-pressure chronic ulcer of other part of unspecified foot with unspecified severity QUALIFIERS: Diabetic foot ulcer location: midfoot Laterality: right Non-pressure ulcer stage: with fat layer exposed Qualified Code(s): E11.621 - Type 2 diabetes mellitus with foot ulcer; L97.412 - Non-pressure chronic ulcer of right heel and midfoot with fat layer exposed PLAN: Applied EpiFix #4 to right lateral foot veil was covered and Aquacel extra was placed on top for extra red of protection against infection. Patient is told he cannot get wet.\ Finish antibiotic therapy linezolid 600 twice daily Follow-up in 1 week (2) Decubitus ulcer of right foot, stage 2: CODE(S): L89.892 - Pressure ulcer of other site, stage 2 (3) Unspecified open wound of other part of head, initial encounter: CODE(S): S01.80XA - Unspecified open wound of other part of head, initial encounter PLAN: Left ear healed discontinue treatments
[2023-03-25 12:36] VITALS: BP 129/80; PULSE 83; RESP 18; TEMP 37
[2023-03-30 10:48] VITALS: BP 150/72; PULSE 74; RESP 18; TEMP 35.5
--- NOTE | 2023-03-30 11:15 | PN.PCM_ITS ---
History of Present Illness Date of Service: 03/30/23 Chief Complaint: Follow-up on his left ear laceration from a tree branch and right lateral foot open wound from a blister that was over 1 month old. 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 He has poor hygiene habits. Had developed a blister from his shoe on the right lateral foot that is quite long about 4 cm x 1 cm wide. States it bled like everything because he is on Eliquis. Seeing bleeds stop to get the bleeding under control. Now has developed some slough and fibrous material in the center with I think over a venous vein. Patient has numbing and has no feeling in his lower leg but he does say his feet throb. He does have many comorbidities such as A-fib diabetes does have a defibrillator high cholesterol BPH Progress of Wound: Left ear is healed. Lateral foot looks much better ,EpiFix we will apply #5 today. Measurements are slightly smaller. No sign of infection The maceration around the edge is better since we have him come in last Tuesday for dressing change. 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 We will continue with changing his socks twice a day and come in on Tuesday for dressing change. Subjective Subjective Patient is good with treatment so far Objective Data Objective Data Measurements are smaller no sign of infection looking better we will continue with EpiFix Vital Signs: Vital Signs Temp Pulse Resp BP O2 Del Method 96 F L 74 18 150/72 H Room Air 03/30/23 10:48 03/30/23 10:48 03/30/23 10:48 03/30/23 10:48 03/23/23 10:45 Oxygen Delivery Method Room Air Physical Exam Const oriented x3 General Appearance: cooperative Exam Limitations: no limitations HEENT normocephalic Head and Scalp: normal to inspection Face and Sinus: normal facial exam Nose: external nose normal General Ear: hearing grossly impaired External Ear: external ears normal Mouth: oral and palatal mucosa normal Eyes PERRL General Eye: normal appearance of both eyes Neck full ROM General: normal visual inspection Resp normal respiratory effort Effort and Inspection: able to speak in complete sentences Auscultation: clear to auscultation bilaterally Cardio regular rate and regular rhythm Palpation: normal PMI Rate: regular rate Rhythm: regular rhythm GI Auscultation: normoactive bowel sounds Palpation: soft and no hepatosplenomegaly external exam normal Back/Spine Cervical Spine: cervical ROM normal Thoracic Spine / Upper Back: normal to inspection Lumbar Spine / Lower Back: normal to inspection Extremity normal to inspection General Extremity: normal exam except as noted Skin Wounds: wounds noted Wound Narrative: Right lateral foot open wound from blister Left Pe?a superficial laceration in ear from trees branches Neuro oriented x3 Psych Appearance: grossly normal Speech: normal speech Thought Content: normal thought content Judgement: judgement good Debridement Note Debridement Note Wound debrided: Right lateral foot decubitus ulcer Laterality: Right Wound Grade/Stage: Stage II Type of Debridement: Excisional debridement Anesthesia Used: 5% Lidocaine Gel Depth: in the subcutaneous layer Percentage of wound debrided: 100 Instrument Used: 5mm curette Tissue Removed: Fibrin Severity: Limited To Skin Breakdown Amount of bleeding with debridement: Mild Bleeding Controlled with: Compression and gauze Patient tolerated procedure: Patient tolerated procedure well Post-Debridement Measurements and Additional Note: Post-Debridement Measurements/Treatment - Nurse 1 - General Ulcer Assessment Start: 03/02/23 11:05 Freq: Status: Active Protocol: ALEJANDRO Activity Type Activity Date Activity User E-sign Co-sign Detail Recorded Client Recorded Date Recorded By Document 03/02/23 11:10 RB [id number] 03/02/23 11:13 RB Document 03/09/23 11:02 DL [id number] 03/09/23 11:08 DL Document 03/16/23 11:46 RB [id number] 03/16/23 11:49 RB Document 03/23/23 10:45 [facility] Desktop 03/23/23 10:55 [facility] Document 03/25/23 12:36 RB [id number] 03/25/23 12:37 RB Document 03/30/23 10:48 RB [id number] 03/30/23 10:49 RB 03/02/23 03/09/23 03/16/23 11:10 11:02 11:46 - Today's Visit Information Type of service Follow-up Visit Follow-up Visit Follow-up Visit (Physician/HOSPICE CARE TRANSITIONS COORDINATOR (Physician/HOSPICE CARE TRANSITIONS COORDINATOR (Physician/HOSPICE CARE TRANSITIONS COORDINATOR ) ) ) Arrival Mode Ambulatory Ambulatory Ambulatory Transfer Assistance None None None Patient Identification Verified (Name & Yes Yes Yes ) Patient Requires Transmission-Based No No No Precautions Finger Stick Blood Sugar(mg/dl) (if not checked indicated): Blood Sugar Stated by Patient Vital Signs Temperature (97.8 F-99.1 F) 97 F L 96.9 F L 97 F L Temperature Source Temporal Temporal Temporal Pulse Rate (60-100) 97 82 81 Pulse Location Monitor Monitor Monitor Respiratory Rate (12-18) 18 20 H 18 Respiratory rate source Observation Observation Observation Oxygen Delivery Method Blood Pressure (90/60-120/80) 119/69 106/61 146/88 H Blood Pressure Mean (mm Hg) 85 76 107 Source Monitor Monitor Monitor Position Semi-Fowlers Semi-Fowlers Blood Pressure Location Left Arm Left Arm History Since Last Visit- (Skip if this is Patient's initial visit) Have you changed medications since your No No No last visit? Any new allergies or adverse reactions No No No Had a fall/change in ADL's that may No No No increase risk of falls Signs or symptoms of abuse and/or No No No neglect since last visit Have you been in the hospital since your No No No last visit? Has dressing in place as prescribed Yes Yes Yes Has compression in place as prescribed No N/A No Has offloadiing in place as prescribed No N/A No Experienced any changes in pain level or No No No management Left Footwear Right Footwear Pain Scale: 0-10 Numeric Is Patient Pain Free? Yes Yes Yes 03/23/23 03/25/23 03/30/23 10:45 12:36 10:48 - Today's Visit Information Type of service Follow-up Visit Nurse-only Follow-up Visit (Physician/HOSPICE CARE TRANSITIONS COORDINATOR Visit (Physician/HOSPICE CARE TRANSITIONS COORDINATOR ) ) Arrival Mode Ambulatory Ambulatory Ambulatory Transfer Assistance None None None Patient Identification Verified (Name & Yes Yes Yes ) Patient Requires Transmission-Based No No No Precautions Finger Stick Blood Sugar(mg/dl) (if indicated): Blood Sugar Vital Signs Temperature (97.8 F-99.1 F) 98.6 F 96 F L Temperature Source Temporal Temporal Pulse Rate (60-100) 64 83 74 Pulse Location Monitor Monitor Monitor Respiratory Rate (12-18) 16 18 18 Respiratory rate source Observation Observation Observation Oxygen Delivery Method Room Air Blood Pressure (90/60-120/80) 117/64 129/80 H 150/72 H Blood Pressure Mean (mm Hg) 81 96 98 Source Monitor Monitor Monitor Position Sitting Semi-Fowlers Semi-Fowlers Blood Pressure Location Left Arm Left Arm Left Arm History Since Last Visit- (Skip if this is Patient's initial visit) Have you changed medications since your No No last visit? Any new allergies or adverse reactions No No Had a fall/change in ADL's that may No No increase risk of falls Signs or symptoms of abuse and/or No No neglect since last visit Have you been in the hospital since your No No last visit? Has dressing in place as prescribed Yes Yes Has compression in place as prescribed N/A No Has offloadiing in place as prescribed N/A No Experienced any changes in pain level or No No management Left Footwear Regular Shoe Right Footwear Regular Shoe Pain Scale: 0-10 Numeric Is Patient Pain Free? Yes Yes Yes WC - Nurse 1 - General Ulcer Measurement Start: 03/02/23 11:05 Freq: Status: Active Protocol: Activity Type Activity Date Activity User E-sign Co-sign Detail Recorded Client Recorded Date Recorded By Document 03/02/23 11:10 RB [id number] 03/02/23 11:13 RB Document 03/09/23 11:02 DL [id number] 03/09/23 11:08 DL Document 03/16/23 11:46 RB [id number] 03/16/23 11:49 RB Document 03/23/23 10:45 [facility] Desktop 03/23/23 10:55 [facility] Document 03/25/23 12:36 RB [id number] 03/25/23 12:37 RB Document 03/30/23 10:48 RB [id number] 03/30/23 10:49 RB 03/02/23 03/09/23 03/16/23 11:10 11:02 11:46 Wound Center Nurse 1 #2- L EAR -Combined with other wound No No -Current Size (cm) - Length 0.1 0.6 0.1 -Current Size (cm) - Width 0.1 0.3 0.1 -Current Size (cm) - Depth 0.1 0.2 0.1 -Total Square Cm 0.01 0.18 0.01 -Tunneling No No -Undermining/Tunneling No No -Circular Undermining No No -Exudate Amt Small None Present -Exudate Type Serosanguineous -Wound Margin Distinct, Distinct, Outline Outline Attached Attached -Granulation Amt Medium (34-66%) Small (1-33%) Medium (34-66%) -Granulation Quality [place],Red [place] -Slough/Fibrin Yes Yes -Necrosis Amt Medium (34-66%) Small (1-33%) Small (1-33%) -Necrotic Tissue Type Adherent Slough Adherent Slough Adherent Slough -Structure Exposed N/A N/A -Texture (Laya-wound Skin Appearance) Assessed Scarring Assessed -Moisture (Laya-wound Skin Appearance) Assessed No Abnormality Assessed -Color (Laya-wound Skin Appearance) Assessed No Abnormality Assessed -Temperature (Laya-wound Skin No Abnormality No Abnormality No Abnormality Appearance) (Pt Warm) (Pt Warm) (Pt Warm) -Tenderness on Palpation (Laya-wound No No No Skin Appearance) -Ulcer Cleansing Wound Cleanser Rinsed/ Wound Cleanser Irrigated with Saline -Foul Odor after Cleansing No No No -Anesthetic Used 5% Lidocaine 5% Lidocaine Gel Gel #1- R LAT FOOT -Combined with other wound No No -Current Size (cm) - Length 3 4 4 -Current Size (cm) - Width 1.4 1.2 1 -Current Size (cm) - Depth 0.2 0.2 0.1 -Total Square Cm 4.2 4.8 4 -Date of Last Picture (Recall this field) -Photo Taken -Epithelialization -Tunneling No No -Undermining/Tunneling No No -Circular Undermining No No -Exudate Amt Medium Medium Medium -Exudate Type Serosanguineous Serosanguineous Serosanguineous -Wound Margin Distinct, Distinct, Distinct, Outline Outline Outline Attached Attached Attached -Granulation Amt Medium (34-66%) Medium (34-66%) Medium (34-66%) -Granulation Quality [place] -Slough/Fibrin Yes Yes -Necrosis Amt Medium (34-66%) Medium (34-66%) Medium (34-66%) -Necrotic Tissue Type Adherent Slough Adherent Slough Adherent Slough -Structure Exposed N/A N/A N/A -Texture (Laya-wound Skin Appearance) Assessed Scarring Assessed -Moisture (Laya-wound Skin Appearance) Assessed Maceration Assessed, Maceration -Color (Laya-wound Skin Appearance) Assessed No Abnormality Assessed -Temperature (Laya-wound Skin No Abnormality No Abnormality No Abnormality Appearance) (Pt Warm) (Pt Warm) (Pt Warm) -Tenderness on Palpation (Laya-wound No No No Skin Appearance) -Ulcer Cleansing Wound Cleanser Soap and Water Wound Cleanser -Foul Odor after Cleansing No Yes, Due to No Product Use -Anesthetic Used 5% Lidocaine 5% Lidocaine 5% Lidocaine Gel Gel Gel -Wound Comment(s) Lower Limb Edema Present Yes Right Calf (cm) 36 Right Ankle (cm) 03/23/23 03/25/23 03/30/23 10:45 12:36 10:48 Wound Center Nurse 1 #2- L EAR -Combined with other wound -Current Size (cm) - Length -Current Size (cm) - Width -Current Size (cm) - Depth -Total Square Cm -Tunneling -Undermining/Tunneling -Circular Undermining -Exudate Amt -Exudate Type -Wound Margin -Granulation Amt -Granulation Quality -Slough/Fibrin -Necrosis Amt -Necrotic Tissue Type -Structure Exposed -Texture (Laya-wound Skin Appearance) -Moisture (Laya-wound Skin Appearance) -Color (Laya-wound Skin Appearance) -Temperature (Laya-wound Skin Appearance) -Tenderness on Palpation (Laya-wound Skin Appearance) -Ulcer Cleansing -Foul Odor after Cleansing -Anesthetic Used #1- R LAT FOOT -Combined with other wound No No -Current Size (cm) - Length 4.3 4 -Current Size (cm) - Width 1 1.2 -Current Size (cm) - Depth 0.1 0.1 -Total Square Cm 4.3 4.8 -Date of Last Picture (Recall this 03/23/23 field) -Photo Taken Yes -Epithelialization Small 1-33% -Tunneling No No -Undermining/Tunneling No No -Circular Undermining No No -Exudate Amt Large Medium -Exudate Type Serosanguineous Serosanguineous -Wound Margin Distinct, Distinct, Outline Outline Attached Attached -Granulation Amt Medium (34-66%) Medium (34-66%) -Granulation Quality [place] -Slough/Fibrin Yes Yes -Necrosis Amt Medium (34-66%) Medium (34-66%) -Necrotic Tissue Type Adherent Slough Adherent Slough -Structure Exposed N/A -Texture (Laya-wound Skin Appearance) Assessed, Assessed Scarring -Moisture (Laya-wound Skin Appearance) Assessed Maceration -Color (Laya-wound Skin Appearance) Assessed, Assessed Erythema -Temperature (Laya-wound Skin No Abnormality No Abnormality Appearance) (Pt Warm) (Pt Warm) -Tenderness on Palpation (Laya-wound No No Skin Appearance) -Ulcer Cleansing Soap and Water Wound Cleanser -Foul Odor after Cleansing No No -Anesthetic Used 5% Lidocaine 5% Lidocaine Gel Gel -Wound Comment(s) epifix and steri strips intact Lower Limb Edema Present Right Calf (cm) Right Ankle (cm) WC - Nurse 2 - General Ulcer CM Notes Start: 03/02/23 11:05 Freq: Status: Active Protocol: Activity Type Activity Date Activity User E-sign Co-sign Detail Recorded Client Recorded Date Recorded By Document 03/02/23 11:24 MW [id number] 03/02/23 11:36 MW Edit Result 03/02/23 11:24 MW (1) [id number] 03/02/23 11:39 MW Document 03/09/23 11:24 MW [id number] 03/09/23 11:33 MW Document 03/16/23 11:49 MW [id number] 03/16/23 11:56 MW Document 03/23/23 11:08 MW [id number] 03/23/23 11:14 MW (1) #2- L EAR - Procedure Performed No => Yes - Type of Procedure => Debridement - Clinical Debridement => Subcutaneous - Tissue Removed => Subcutaneous - Tunneling => No - Undermining/Tunneling => No - Circular Undermining => No - Wound/Ulcer Outcome => Not Healed - Ulcer Cleansing => Rinsed/Irrigated => with Saline - Foul Odor after Cleansing => No - Bioengineered Tissue => No - Bleeding Controlled with => Pressure - Treatment Response => Procedure => Tolerated Well - Offloading => No - Debridement - Subq, 1st 20sq cm => Yes 03/02/23 03/09/23 03/16/23 11:24 11:24 11:49 Wound Center Nurse 2 #2- L EAR -Time 11: 11:31 11:52 -Correct Patient Yes Yes Yes -Correct Side, Site, Position Yes Yes Yes -Correct Procedure Yes Yes Yes -Procedure Performed Yes Yes No -Type of Procedure Debridement Debridement -Clinical Debridement Subcutaneous Subcutaneous -Tissue Removed Subcutaneous Subcutaneous -Post Debridement (cm) - Length 0.4 0 -Post Debridement (cm) - Width 0.3 0 -Post Debridement (cm) - Depth 0.1 0 -Total Square (Post) (cm) 0.12 0 -Area of Debridement (cm) - Length 0.4 -Area of Debridement (cm) - Width 0.3 -Total Square (Area) (cm) 0.12 -Tunneling No No -Undermining/Tunneling No No -Circular Undermining No No -Wound/Ulcer Outcome Not Healed Not Healed Healed- Epithelialized -Ulcer Cleansing Rinsed/ Rinsed/ Irrigated with Irrigated with Saline Saline -Foul Odor after Cleansing No No -Bioengineered Tissue No No -Bleeding Controlled with Pressure Pressure -Treatment Response Procedure Procedure Tolerated Well Tolerated Well -Offloading No No -Debridement - Subq, 1st 20sq cm Yes Yes #1- R LAT FOOT -Time 11: 11:29 11:53 -Correct Patient Yes Yes Yes -Correct Side, Site, Position Yes Yes Yes -Correct Procedure Yes Yes Yes -Procedure Performed Yes Yes Yes -Type of Procedure Debridement Debridement Debridement -Clinical Debridement Subcutaneous Subcutaneous Subcutaneous -Tissue Removed Subcutaneous Subcutaneous Subcutaneous -Post Debridement (cm) - Length 4.3 4.2 4.1 -Post Debridement (cm) - Width 1.4 1.3 1.2 -Post Debridement (cm) - Depth 0.2 0.2 0.2 -Total Square (Post) (cm) 6.02 5.46 4.92 -Area of Debridement (cm) - Length 4.3 4.2 4.1 -Area of Debridement (cm) - Width 1.4 1.3 1.2 -Total Square (Area) (cm) 6.02 5.46 4.92 -Tunneling No No No -Undermining/Tunneling No No No -Circular Undermining No No No -Wound/Ulcer Outcome Not Healed Not Healed Not Healed -Ulcer Cleansing Rinsed/ Rinsed/ Rinsed/ Irrigated with Irrigated with Irrigated with Saline Saline Saline -Foul Odor after Cleansing No No No -Bioengineered Tissue Yes Yes Yes -Type of Bioengineered Tissue Epifix Epifix Mesh Epifix -Expiration Date 10/31/27 11/30/27 10/31/27 -Product Lot Number [id number] -Percent Used 100 100 100 -Lot number of Saline Used [id number] -Bleeding Controlled with Pressure Pressure Pressure -Treatment Response Procedure Procedure Procedure Tolerated Well Tolerated Well Tolerated Well -Offloading No No No -Debridement - Subq, 1st 20sq cm No No No -Apply Skin Sub - 1st 25 sq cm - Legs 1 -Apply Skin Sub - 1st 25 sq cm - Feet 1 -Apply Skin Sub - each addt'l 25 sq cm 1 - Feet -Epifix (per sq cm) 11 4 -Epifix Mesh (per sq cm) 11 Pain Scale: 0-10 Numeric Is Patient Pain Free? Yes Yes Yes 03/23/23 11:08 Wound Center Nurse 2 #2- L EAR -Time -Correct Patient -Correct Side, Site, Position -Correct Procedure -Procedure Performed -Type of Procedure -Clinical Debridement -Tissue Removed -Post Debridement (cm) - Length -Post Debridement (cm) - Width -Post Debridement (cm) - Depth -Total Square (Post) (cm) -Area of Debridement (cm) - Length -Area of Debridement (cm) - Width -Total Square (Area) (cm) -Tunneling -Undermining/Tunneling -Circular Undermining -Wound/Ulcer Outcome -Ulcer Cleansing -Foul Odor after Cleansing -Bioengineered Tissue -Bleeding Controlled with -Treatment Response -Offloading -Debridement - Subq, 1st 20sq cm #1- R LAT FOOT -Time 11:09 -Correct Patient Yes -Correct Side, Site, Position Yes -Correct Procedure Yes -Procedure Performed Yes -Type of Procedure Debridement -Clinical Debridement Subcutaneous -Tissue Removed Subcutaneous -Post Debridement (cm) - Length 4.0 -Post Debridement (cm) - Width 1.1 -Post Debridement (cm) - Depth 0.2 -Total Square (Post) (cm) 4.40 -Area of Debridement (cm) - Length 4.0 -Area of Debridement (cm) - Width 1.1 -Total Square (Area) (cm) 4.40 -Tunneling No -Undermining/Tunneling No -Circular Undermining No -Wound/Ulcer Outcome Not Healed -Ulcer Cleansing Rinsed/ Irrigated with Saline -Foul Odor after Cleansing No -Bioengineered Tissue Yes -Type of Bioengineered Tissue Epifix -Expiration Date 10/31/27 -Product Lot Number [id number] -Percent Used 100 -Lot number of Saline Used [id number] -Bleeding Controlled with Pressure -Treatment Response Procedure Tolerated Well -Offloading No -Debridement - Subq, 1st 20sq cm No -Apply Skin Sub - 1st 25 sq cm - Legs -Apply Skin Sub - 1st 25 sq cm - Feet 1 -Apply Skin Sub - each addt'l 25 sq cm - Feet -Epifix (per sq cm) 4 -Epifix Mesh (per sq cm) Pain Scale: 0-10 Numeric Is Patient Pain Free? Yes WC - Nurse 3 - General Ulcer D/C NN Start: 03/02/23 11:05 Freq: Status: Active Protocol: Activity Type Activity Date Activity User E-sign Co-sign Detail Recorded Client Recorded Date Recorded By Document 03/02/23 11:43 RB [id number] 03/02/23 11:45 RB Document 03/09/23 11:44 DL [id number] 03/09/23 11:46 DL Document 03/16/23 12:06 BMF [id number] 03/16/23 12:07 BMF Document 03/23/23 11:15 MW [id number] 03/23/23 11:16 MW Edit Result 03/23/23 11:15 MW (1) [id number] 03/23/23 11:21 MW Document 03/25/23 12:36 RB [id number] 03/25/23 12:37 RB (1) #1- R LAT FOOT - Primary Dressing Applied Aquacel Extra, => Aquacel Extra Mepilex Border => - Mepilex Border 1 => 03/02/23 03/09/23 03/16/23 11:43 11:44 12:06 Wound Care Center Nurse 3 #2- L EAR -Ulcer Cleansing Rinsed/ Rinsed/ Irrigated with Irrigated with Saline Saline -Foul Odor after Cleansing No -Primary Dressing Applied NonAdherent Contact Layer -Other Dressing xeroform to L bactroban/ ear gauze xerofrom -Primary Dressing Covered/Secured with Dry Gauze, Dry Gauze, Secured with Secured with Tape Tape #1- R LAT FOOT -Ulcer Cleansing Rinsed/ Irrigated with Saline -Foul Odor after Cleansing No -Negative Pressure Wound Therapy -Primary Dressing Applied Aquacel Extra, Aquacel Extra, Aquacel Extra, Mepilex Border Mepilex Border Mepilex Border -Other Dressing EpiFix EPIFIX; DRSG PER RB RN -Primary Dressing Covered/Secured with Dry Gauze Dry Gauze & Dry Gauze & Roll Gauze, Roll Gauze, Secured with Secured with Tape Tape -Aquacel Extra 1 1 1 -Mepilex Border 1 1 1 Treatment Response Procedure Procedure Procedure Tolerated Well Tolerated Well Tolerated Well Vital Signs Temperature (97.8 F-99.1 F) Temperature Source Pulse Rate (60-100) Pulse Location Respiratory Rate (12-18) Respiratory rate source Blood Pressure (90/60-120/80) Blood Pressure Mean (mm Hg) Source Position Blood Pressure Location Pain Scale: 0-10 Numeric Is Patient Pain Free? Yes Yes Yes Teaching: Wound Center Dressing Your Wound -Person Taught -Teaching Method -Response to teaching WC - Visit Discharge Discharge Condition Stable Stable Stable Ambulatory Status Ambulatory Ambulatory Ambulatory Transportation Private Auto Private Auto Private Auto Accompanied by Medication Reconcilliation completed & No provided to patient/care provider Clinical Summary of Care Provided Yes 03/23/23 03/25/23 11:15 12:36 Wound Care Center Nurse 3 #2- L EAR -Ulcer Cleansing -Foul Odor after Cleansing -Primary Dressing Applied -Other Dressing -Primary Dressing Covered/Secured with #1- R LAT FOOT -Ulcer Cleansing Not Cleansed -Foul Odor after Cleansing No -Negative Pressure Wound Therapy N/A -Primary Dressing Applied Aquacel Extra Aquacel Extra -Other Dressing -Primary Dressing Covered/Secured with Dry Gauze & Roll Gauze, Secured with Tape -Aquacel Extra 1 1 -Mepilex Border Treatment Response Procedure Procedure Tolerated Well Tolerated Well Vital Signs Temperature (97.8 F-99.1 F) 98.6 F Temperature Source Temporal Pulse Rate (60-100) 83 Pulse Location Monitor Respiratory Rate (12-18) 18 Respiratory rate source Observation Blood Pressure (90/60-120/80) 129/80 H Blood Pressure Mean (mm Hg) 96 Source Monitor Position Semi-Fowlers Blood Pressure Location Left Arm Pain Scale: 0-10 Numeric Is Patient Pain Free? Yes Yes Teaching: Wound Center Dressing Your Wound -Person Taught Patient -Teaching Method Discussion, Demonstration -Response to teaching Verbalize understanding WC - Visit Discharge Discharge Condition Stable Stable Ambulatory Status Ambulatory Ambulatory Transportation Private Auto Private Auto Accompanied by self Medication Reconcilliation completed & No No provided to patient/care provider Clinical Summary of Care Provided Yes Yes Assessment/Plan Assessment/Plan (1) Diabetic foot ulcer associated with type 2 diabetes mellitus: CODE(S): E11.621 - Type 2 diabetes mellitus with foot ulcer; L97.509 - Non-pressure chronic ulcer of other part of unspecified foot with unspecified severity QUALIFIERS: Diabetic foot ulcer location: midfoot Laterality: right Non-pressure ulcer stage: with fat layer exposed Qualified Code(s): E11.621 - Type 2 diabetes mellitus with foot ulcer; L97.412 - Non-pressure chronic ulcer of right heel and midfoot with fat layer exposed PLAN: Applied EpiFix #5 to right lateral foot veil was covered and Aquacel extra was placed on top for extra red of protection against infection. Patient is told he cannot get wet.\ Finish antibiotic therapy linezolid 600 twice daily Follow-up in 1 week (2) Decubitus ulcer of right foot, stage 2: CODE(S): L89.892 - Pressure ulcer of other site, stage 2 (3) Unspecified open wound of other part of head, initial encounter: CODE(S): S01.80XA - Unspecified open wound of other part of head, initial encounter PLAN: Left ear healed discontinue treatments
== END 2023-03-31 23:59 | disposition home or self-care (01) ==
LOC: WC 10:45
PROVIDERS: PCP Family Medicine; Referring Provider Nurse Practitioner; Visit Provider Nurse Practitioner
DX: E11.621 Type 2 diabetes mellitus with foot ulcer (principal); L89.892 Pressure ulcer of other site, stage 2; L97.412 Non-pressure chronic ulcer of right heel and midfoot with fat layer exposed; S01.80XA Unspecified open wound of other part of head, initial encounter
CPT/HCPCS: 11042; 15271; 15275; 15276; 99211; Q4186; G0463

== ENCOUNTER 2023-04-27 10:45 | Outpatient (RCR) | payer MEDICARE, BC, SELFPAY ==
[2023-04-01 00:32] VITALS: BP 150/72; PULSE 74; RESP 18; TEMP 35.5
[2023-04-01 12:45] VITALS: BP 113/89; PULSE 81; RESP 18; TEMP 36
[2023-04-06 11:07] VITALS: BP 111/65; PULSE 87; RESP 18; TEMP 35.9
--- NOTE | 2023-04-06 12:28 | PCM.WC.PN ---
History of Present Illness Date of Service: 04/06/23 Chief Complaint: Follow-up on his left ear laceration from a tree branch and right lateral foot open wound from a blister that was over 1 month old. 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 He has poor hygiene habits. Had developed a blister from his shoe on the right lateral foot that is quite long about 4 cm x 1 cm wide. States it bled like everything because he is on Eliquis. Seeing bleeds stop to get the bleeding under control. Now has developed some slough and fibrous material in the center with I think over a venous vein. Patient has numbing and has no feeling in his lower leg but he does say his feet throb. He does have many comorbidities such as A-fib diabetes does have a defibrillator high cholesterol BPH Progress of Wound: Tolerating and doing very well on EpiFix this was #6 2 applied today. The top half has healed closed were dealing with a deeper lower half of the wound on the left right lateral foot. No sign of infection redness or maceration. Patient has been coming on Fridays for dressing changed which is helped a lot. Subjective Subjective Patient states he will come in 1 more time for Tuesday change Objective Data Objective Data No sign of infection healing pretty good smaller in size we will continue with EpiFix Vital Signs: Vital Signs Temp Pulse Resp BP 96.7 F L 87 18 111/65 04/06/23 11:07 04/06/23 11:07 04/06/23 11:07 04/06/23 11:07 Lab / Micro Data Attestation: I reviewed the patient's lab results. Physical Exam Const oriented x3 General Appearance: cooperative Exam Limitations: no limitations HEENT normocephalic Head and Scalp: normal to inspection Face and Sinus: normal facial exam Nose: external nose normal General Ear: hearing grossly impaired External Ear: external ears normal Mouth: oral and palatal mucosa normal Eyes PERRL General Eye: normal appearance of both eyes Neck full ROM General: normal visual inspection Resp normal respiratory effort Effort and Inspection: able to speak in complete sentences Auscultation: clear to auscultation bilaterally Cardio regular rate and regular rhythm Palpation: normal PMI Rate: regular rate Rhythm: regular rhythm GI Auscultation: normoactive bowel sounds Palpation: soft and no hepatosplenomegaly external exam normal Back/Spine Cervical Spine: cervical ROM normal Thoracic Spine / Upper Back: normal to inspection Lumbar Spine / Lower Back: normal to inspection Extremity normal to inspection General Extremity: normal exam except as noted Skin Wounds: wounds noted Wound Narrative: Right lateral foot open wound from blister Left Pe?a superficial laceration in ear from trees branches Neuro oriented x3 Psych Appearance: grossly normal Speech: normal speech Thought Content: normal thought content Judgement: judgement good Debridement Note Debridement Note Wound debrided: Right lateral foot diabetic foot ulcer Wound Grade/Stage: Stage II Type of Debridement: Excisional debridement Anesthesia Used: 5% Lidocaine Gel Depth: Down to and including healthy tissue and in the subcutaneous layer Percentage of wound debrided: 100 Instrument Used: 5mm curette Severity: Fat Layer Exposed Amount of bleeding with debridement: Mild Bleeding Controlled with: Compression and gauze Patient tolerated procedure: Patient tolerated procedure well Post-Debridement Measurements and Additional Note: Post-Debridement Measurements/Treatment - Nurse 1 - General Ulcer Assessment Start: 04/01/23 12:45 Freq: Status: Active Protocol: ALEJANDRO Activity Type Activity Date Activity User E-sign Co-sign Detail Recorded Client Recorded Date Recorded By Document 04/01/23 12:45 [id number] 04/01/23 12:46 RB Document 04/06/23 11:07 RB [id number] 04/06/23 11:09 RB 04/01/23 04/06/23 12:45 11:07 - Today's Visit Information Type of service Nurse-only 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 ) Arrival Mode Ambulatory Ambulatory Transfer Assistance None None Patient Identification Verified (Name & Yes Yes ) Patient Requires Transmission-Based No No Precautions Vital Signs Temperature (97.8 F-99.1 F) 96.8 F L 96.7 F L Temperature Source Temporal Temporal Pulse Rate (60-100) 81 87 Pulse Location Monitor Monitor Respiratory Rate (12-18) 18 18 Respiratory rate source Observation Observation Blood Pressure (90/60-120/80) 113/89 H 111/65 Blood Pressure Mean (mm Hg) 97 80 Source Monitor Monitor Position Semi-Fowlers Semi-Fowlers Blood Pressure Location Left Arm Left Arm History Since Last Visit- (Skip if this is Patient's initial visit) Have you changed medications since your No No last visit? Any new allergies or adverse reactions No No Had a fall/change in ADL's that may No No increase risk of falls Signs or symptoms of abuse and/or No No neglect since last visit Have you been in the hospital since your No No last visit? Has dressing in place as prescribed Yes Yes Has compression in place as prescribed No No Has offloadiing in place as prescribed Yes No Experienced any changes in pain level or No No management Pain Scale: 0-10 Numeric Is Patient Pain Free? Yes Yes - Nurse 1 - General Ulcer Measurement Start: 04/01/23 12:45 Freq: Status: Active Protocol: Activity Type Activity Date Activity User E-sign Co-sign Detail Recorded Client Recorded Date Recorded By Document 04/01/23 12:45 RB [id number] 04/01/23 12:46 RB Document 04/06/23 11:07 RB [id number] 04/06/23 11:09 RB 04/01/23 04/06/23 12:45 11:07 Wound Center Nurse 1 #1- R LAT FOOT -Combined with other wound No -Current Size (cm) - Length 3 -Current Size (cm) - Width 1 -Current Size (cm) - Depth 0.1 -Total Square Cm 3 -Tunneling No -Undermining/Tunneling No -Circular Undermining No -Exudate Amt Medium -Exudate Type Serosanguineous -Wound Margin Distinct, Outline Attached -Granulation Amt Medium (34-66%) -Granulation Quality [place] -Slough/Fibrin Yes -Necrosis Amt Medium (34-66%) -Necrotic Tissue Type Adherent Slough -Structure Exposed N/A -Texture (Laya-wound Skin Appearance) Assessed -Moisture (Laya-wound Skin Appearance) Maceration -Color (Laya-wound Skin Appearance) Assessed -Temperature (Laya-wound Skin No Abnormality Appearance) (Pt Warm) -Tenderness on Palpation (Laya-wound No Skin Appearance) -Ulcer Cleansing Wound Cleanser -Foul Odor after Cleansing No -Anesthetic Used 5% Lidocaine Gel -Wound Comment(s) steristrips intact Lower Limb Edema Present Yes Right Calf (cm) 33.8 Right Ankle (cm) 21.8 BRUNO - Nurse 2 - General Ulcer CM Notes Start: 04/01/23 12:45 Freq: Status: Active Protocol: Activity Type Activity Date Activity User E-sign Co-sign Detail Recorded Client Recorded Date Recorded By Document 04/06/23 11:24 MW [id number] 04/06/23 11:30 MW 04/06/23 11:24 Wound Center Nurse 2 #1- R LAT FOOT -Time 11:25 -Correct Patient Yes -Correct Side, Site, Position Yes -Correct Procedure Yes -Procedure Performed Yes -Type of Procedure Debridement -Clinical Debridement Subcutaneous -Tissue Removed Subcutaneous -Post Debridement (cm) - Length 2.2 -Post Debridement (cm) - Width 1.0 -Post Debridement (cm) - Depth 0.2 -Total Square (Post) (cm) 2.20 -Area of Debridement (cm) - Length 2.2 -Area of Debridement (cm) - Width 1.0 -Total Square (Area) (cm) 2.20 -Tunneling No -Undermining/Tunneling No -Circular Undermining No -Wound/Ulcer Outcome Not Healed -Ulcer Cleansing Rinsed/ Irrigated with Saline -Foul Odor after Cleansing No -Bioengineered Tissue Yes -Type of Bioengineered Tissue Epifix -Expiration Date 11/30/27 -Product Lot Number [id number] -Percent Used 100 -Lot number of Saline Used [id number] -Bleeding Controlled with Pressure -Treatment Response Procedure Tolerated Well -Offloading No -Debridement - Subq, 1st 20sq cm No -Apply Skin Sub - 1st 25 sq cm - Feet 1 -Epifix (per sq cm) 4 Pain Scale: 0-10 Numeric Is Patient Pain Free? Yes - Nurse 3 - General Ulcer D/C NN Start: 04/01/23 12:45 Freq: Status: Active Protocol: Activity Type Activity Date Activity User E-sign Co-sign Detail Recorded Client Recorded Date Recorded By Document 04/01/23 12:45 RB [id number] 04/01/23 12:46 RB Document 04/06/23 11:35 RB [id number] 04/06/23 11:36 RB 04/01/23 04/06/23 12:45 11:35 Vital Signs Temperature (97.8 F-99.1 F) 96.8 F L Temperature Source Temporal Pulse Rate (60-100) 81 Pulse Location Monitor Respiratory Rate (12-18) 18 Respiratory rate source Observation Blood Pressure (90/60-120/80) 113/89 H Blood Pressure Mean (mm Hg) 97 Source Monitor Position Semi-Fowlers Blood Pressure Location Left Arm Pain Scale: 0-10 Numeric Is Patient Pain Free? Yes Yes Teaching: Wound Center Dressing Your Wound -Person Taught Patient -Teaching Method Discussion, Demonstration -Response to teaching Verbalize understanding Wound Care Center Nurse 3 #1- R LAT FOOT -Primary Dressing Applied Aquacel Extra Aquacel Extra -Primary Dressing Covered/Secured with Dry Gauze,Dry Dry Gauze & Gauze & Roll Roll Gauze, Gauze,Secured Secured with with Tape Tape -Aquacel Extra 1 1 Treatment Response Procedure Procedure Tolerated Well Tolerated Well WC - Visit Discharge Discharge Condition Stable Stable Ambulatory Status Ambulatory Ambulatory Transportation Private Auto Private Auto Medication Reconcilliation completed & No No provided to patient/care provider Clinical Summary of Care Provided Yes Yes Assessment/Plan Assessment/Plan (1) Diabetic foot ulcer associated with type 2 diabetes mellitus: CODE(S): E11.621 - Type 2 diabetes mellitus with foot ulcer; L97.509 - Non-pressure chronic ulcer of other part of unspecified foot with unspecified severity QUALIFIERS: Diabetic foot ulcer location: midfoot Laterality: right Non-pressure ulcer stage: with fat layer exposed Qualified Code(s): E11.621 - Type 2 diabetes mellitus with foot ulcer; L97.412 - Non-pressure chronic ulcer of right heel and midfoot with fat layer exposed PLAN: Applied EpiFix #6 to right lateral foot veil was covered and Aquacel extra was placed on top for extra red of protection against infection. Patient is told he cannot get wet.\ Follow-up in 1 week (2) Decubitus ulcer of right foot, stage 2: CODE(S): L89.892 - Pressure ulcer of other site, stage 2 (3) Unspecified open wound of other part of head, initial encounter: CODE(S): S01.80XA - Unspecified open wound of other part of head, initial encounter PLAN: Left ear healed discontinue treatments
[2023-04-08 11:33] VITALS: BP 146/87; PULSE 64; RESP 18; TEMP 36.1
[2023-04-13 10:59] VITALS: BP 117/71; PULSE 78; RESP 18; TEMP 36
--- NOTE | 2023-04-13 11:38 | PN.PCM_ITS ---
History of Present Illness Date of Service: 04/13/23 Chief Complaint: Follow-up on his left ear laceration from a tree branch and right lateral foot open wound from a blister that was over 1 month old. 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 He has poor hygiene habits. Had developed a blister from his shoe on the right lateral foot that is quite long about 4 cm x 1 cm wide. States it bled like everything because he is on Eliquis. Seeing bleeds stop to get the bleeding under control. Now has developed some slough and fibrous material in the center with I think over a venous vein. Patient has numbing and has no feeling in his lower leg but he does say his feet throb. He does have many comorbidities such as A-fib diabetes does have a defibrillator high cholesterol BPH Progress of Wound: Tolerating and doing very well on EpiFix this was #6 applied today. The top half has healed closed were dealing with a deeper lower half of the wound on the left right lateral foot. Patient complaining of increased pain noted some redness around the perimeter of wound. Subjective Subjective We will obtain cultures this week and call with the results Patient states he needs something stronger for pain Objective Data Objective Data The site is about the same size but does have increased redness around the perimeter of the wound that did not show last week Obtained cultures we will call with results Vital Signs: Vital Signs Temp Pulse Resp BP O2 Del Method 96.8 F L 78 18 117/71 Room Air 04/13/23 10:59 04/13/23 10:59 04/13/23 10:59 04/13/23 10:59 04/08/23 11:33 Oxygen Delivery Method Room Air Lab / Micro Data Attestation: I reviewed the patient's lab results. Physical Exam Const oriented x3 General Appearance: cooperative Exam Limitations: no limitations HEENT normocephalic Head and Scalp: normal to inspection Face and Sinus: normal facial exam Nose: external nose normal General Ear: hearing grossly impaired External Ear: external ears normal Mouth: oral and palatal mucosa normal Eyes PERRL General Eye: normal appearance of both eyes Neck full ROM General: normal visual inspection Resp normal respiratory effort Effort and Inspection: able to speak in complete sentences Auscultation: clear to auscultation bilaterally Cardio regular rate and regular rhythm Palpation: normal PMI Rate: regular rate Rhythm: regular rhythm GI Auscultation: normoactive bowel sounds Palpation: soft and no hepatosplenomegaly external exam normal Back/Spine Cervical Spine: cervical ROM normal Thoracic Spine / Upper Back: normal to inspection Lumbar Spine / Lower Back: normal to inspection Extremity normal to inspection General Extremity: normal exam except as noted Skin Wounds: wounds noted Wound Narrative: Right lateral foot open wound from blister Left Pe?a superficial laceration in ear from trees branches Neuro oriented x3 Psych Appearance: grossly normal Speech: normal speech Thought Content: normal thought content Judgement: judgement good Debridement Note Debridement Note Wound debrided: Right lateral diabetic foot ulcer Wound Grade/Stage: Stage II Type of Debridement: Excisional debridement Anesthesia Used: 5% Lidocaine Gel Depth: in the subcutaneous layer Percentage of wound debrided: 100 Instrument Used: 5mm curette Severity: Fat Layer Exposed Amount of bleeding with debridement: None Bleeding Controlled with: Compression and gauze Patient tolerated procedure: Patient tolerated procedure well Post-Debridement Measurements and Additional Note: Post-Debridement Measurements/Treatment - Nurse 1 - General Ulcer Assessment Start: 04/01/23 12:45 Freq: Status: Active Protocol: ALEJANDRO Activity Type Activity Date Activity User E-sign Co-sign Detail Recorded Client Recorded Date Recorded By Document 04/01/23 12:45 [id number] 04/01/23 12:46 RB Document 04/06/23 11:07 [id number] 04/06/23 11:09 RB Document 04/13/23 10:59 RB [id number] 04/13/23 11:00 RB 04/01/23 04/06/23 04/13/23 12:45 11:07 10:59 [facility] Today's Visit Information Type of service Nurse-only Follow-up Visit Follow-up Visit Visit (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 (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 ) ) Arrival Mode Ambulatory Ambulatory Ambulatory Transfer Assistance None None None Patient Identification Verified (Name & Yes Yes Yes ) Patient Requires Transmission-Based No No No Precautions Vital Signs Temperature (97.8 F-99.1 F) 96.8 F L 96.7 F L 96.8 F L Temperature Source Temporal Temporal Temporal Pulse Rate (60-100) 81 87 78 Pulse Location Monitor Monitor Monitor Respiratory Rate (12-18) 18 18 18 Respiratory rate source Observation Observation Observation Blood Pressure (90/60-120/80) 113/89 H 111/65 117/71 Blood Pressure Mean (mm Hg) 97 80 86 Source Monitor Monitor Monitor Position Semi-Fowlers Semi-Fowlers Semi-Fowlers Blood Pressure Location Left Arm Left Arm Left Arm History Since Last Visit- (Skip if this is Patient's initial visit) Have you changed medications since your No No No last visit? Any new allergies or adverse reactions No No No Had a fall/change in ADL's that may No No No increase risk of falls Signs or symptoms of abuse and/or No No No neglect since last visit Have you been in the hospital since your No No No last visit? Has dressing in place as prescribed Yes Yes Yes Has compression in place as prescribed No No No Has offloadiing in place as prescribed Yes No No Experienced any changes in pain level or No No No management Pain Scale: 0-10 Numeric Is Patient Pain Free? Yes Yes Yes WC - Nurse 1 - General Ulcer Measurement Start: 04/01/23 12:45 Freq: Status: Active Protocol: Activity Type Activity Date Activity User E-sign Co-sign Detail Recorded Client Recorded Date Recorded By Document 04/01/23 12:45 RB [id number] 04/01/23 12:46 RB Document 04/06/23 11:07 RB [id number] 04/06/23 11:09 RB Document 04/13/23 10:59 RB [id number] 04/13/23 11:00 RB 04/01/23 04/06/23 04/13/23 12:45 11:07 10:59 Wound Center Nurse 1 #1- R LAT FOOT -Combined with other wound No No -Current Size (cm) - Length 3 2.8 -Current Size (cm) - Width 1 0.9 -Current Size (cm) - Depth 0.1 0.1 -Total Square Cm 3 2.52 -Photo Taken Yes -Tunneling No No -Undermining/Tunneling No No -Circular Undermining No No -Exudate Amt Medium Large -Exudate Type Serosanguineous Serosanguineous -Wound Margin Distinct, Distinct, Outline Outline Attached Attached -Granulation Amt Medium (34-66%) Medium (34-66%) -Granulation Quality [place] -Slough/Fibrin Yes Yes -Necrosis Amt Medium (34-66%) Medium (34-66%) -Necrotic Tissue Type Adherent Slough Adherent Slough -Structure Exposed N/A N/A -Texture (Laya-wound Skin Appearance) Assessed Assessed, Scarring -Moisture (Laya-wound Skin Appearance) Maceration Assessed -Color (Laya-wound Skin Appearance) Assessed Assessed -Temperature (Laya-wound Skin No Abnormality No Abnormality Appearance) (Pt Warm) (Pt Warm) -Tenderness on Palpation (Laya-wound No No Skin Appearance) -Ulcer Cleansing Wound Cleanser Wound Cleanser -Foul Odor after Cleansing No No -Anesthetic Used 5% Lidocaine 5% Lidocaine Gel Gel -Wound Comment(s) steristrips intact Lower Limb Edema Present Yes Right Calf (cm) 33.8 Right Ankle (cm) 21.8 WC - Nurse 2 - General Ulcer CM Notes Start: 04/01/23 12:45 Freq: Status: Active Protocol: Activity Type Activity Date Activity User E-sign Co-sign Detail Recorded Client Recorded Date Recorded By Document 04/06/23 11:24 MW [id number] 04/06/23 11:30 MW Document 04/13/23 11:06 MW [id number] 04/13/23 11:13 MW 04/06/23 04/13/23 11:24 11:06 Wound Center Nurse 2 #1- R LAT FOOT -Time 11:25 11:08 -Correct Patient Yes Yes -Correct Side, Site, Position Yes Yes -Correct Procedure Yes Yes -Procedure Performed Yes Yes -Type of Procedure Debridement Debridement -Clinical Debridement Subcutaneous Subcutaneous -Tissue Removed Subcutaneous Subcutaneous -Post Debridement (cm) - Length 2.2 2.2 -Post Debridement (cm) - Width 1.0 0.9 -Post Debridement (cm) - Depth 0.2 0.2 -Total Square (Post) (cm) 2.20 1.98 -Area of Debridement (cm) - Length 2.2 2.2 -Area of Debridement (cm) - Width 1.0 0.9 -Total Square (Area) (cm) 2.20 1.98 -Tunneling No No -Undermining/Tunneling No No -Circular Undermining No No -Wound/Ulcer Outcome Not Healed Not Healed -Ulcer Cleansing Rinsed/ Rinsed/ Irrigated with Irrigated with Saline Saline -Foul Odor after Cleansing No No -Bioengineered Tissue Yes Yes -Type of Bioengineered Tissue Epifix Epifix 18mm Disc -Expiration Date 11/30/27 12/31/27 -Product Lot Number [id number] -Percent Used 100 100 -Lot number of Saline Used [id number] -Bleeding Controlled with Pressure Pressure -Treatment Response Procedure Procedure Tolerated Well Tolerated Well -Offloading No No -Debridement - Subq, 1st 20sq cm No No -Apply Skin Sub - 1st 25 sq cm - Feet 1 -Apply Skin Sub - each addt'l 25 sq cm 1 - Feet -Epifix (per sq cm) 4 -Epifix 18mm Disc 3 Pain Scale: 0-10 Numeric Is Patient Pain Free? Yes Yes WC - Nurse 3 - General Ulcer D/C NN Start: 04/01/23 12:45 Freq: Status: Active Protocol: Activity Type Activity Date Activity User E-sign Co-sign Detail Recorded Client Recorded Date Recorded By Document 04/01/23 12:45 RB [id number] 04/01/23 12:46 RB Document 04/06/23 11:35 RB [id number] 04/06/23 11:36 RB Document 04/08/23 11:33 NM [id number] 04/08/23 11:51 MT Document 04/13/23 11:27 RB [id number] 04/13/23 11:27 RB 04/01/23 04/06/23 04/08/23 12:45 11:35 11:33 Vital Signs Temperature (97.8 F-99.1 F) 96.8 F L 97 F L Temperature Source Temporal Temporal Pulse Rate (60-100) 81 64 Pulse Location Monitor Monitor Respiratory Rate (12-18) 18 18 Respiratory rate source Observation Observation Oxygen Delivery Method Room Air Blood Pressure (90/60-120/80) 113/89 H 146/87 H Blood Pressure Mean (mm Hg) 97 106 Source Monitor Monitor Position Semi-Fowlers Sitting Blood Pressure Location Left Arm Left Arm Pain Scale: 0-10 Numeric Is Patient Pain Free? Yes Yes Yes Teaching: Wound Center Dressing Your Wound -Person Taught Patient -Teaching Method Discussion, Demonstration -Response to teaching Verbalize understanding Wound Care Center Nurse 3 #1- R LAT FOOT -Ulcer Cleansing Soap and Water -Primary Dressing Applied Aquacel Extra Aquacel Extra Aquacel AG 4x4 -Other Dressing steri strips -Primary Dressing Covered/Secured with Dry Gauze,Dry Dry Gauze & Dry Gauze, Gauze & Roll Roll Gauze, Secured with Gauze,Secured Secured with Tape with Tape Tape -Aquacel Extra 1 1 -Aquacel AG 4x4 1 Treatment Response Procedure Procedure Tolerated Well Tolerated Well WC - Visit Discharge Discharge Condition Stable Stable Ambulatory Status Ambulatory Ambulatory Transportation Private Auto Private Auto Medication Reconcilliation completed & No No provided to patient/care provider Clinical Summary of Care Provided Yes Yes 04/13/23 11:27 Vital Signs Temperature (97.8 F-99.1 F) Temperature Source Pulse Rate (60-100) Pulse Location Respiratory Rate (12-18) Respiratory rate source Oxygen Delivery Method Blood Pressure (90/60-120/80) Blood Pressure Mean (mm Hg) Source Position Blood Pressure Location Pain Scale: 0-10 Numeric Is Patient Pain Free? Yes Teaching: Wound Center Dressing Your Wound -Person Taught -Teaching Method -Response to teaching Wound Care Center Nurse 3 #1- R LAT FOOT -Ulcer Cleansing -Primary Dressing Applied Aquacel Extra -Other Dressing -Primary Dressing Covered/Secured with Dry Gauze & Roll Gauze, Secured with Tape -Aquacel Extra 1 -Aquacel AG 4x4 Treatment Response Procedure Tolerated Well WC - Visit Discharge Discharge Condition Stable Ambulatory Status Ambulatory Transportation Private Auto Medication Reconcilliation completed & No provided to patient/care provider Clinical Summary of Care Provided Yes Assessment/Plan Assessment/Plan (1) Diabetic foot ulcer associated with type 2 diabetes mellitus: CODE(S): E11.621 - Type 2 diabetes mellitus with foot ulcer; L97.509 - Non-pressure chronic ulcer of other part of unspecified foot with unspecified severity QUALIFIERS: Diabetic foot ulcer location: midfoot Laterality: right Non-pressure ulcer stage: with fat layer exposed Qualified Code(s): E11.621 - Type 2 diabetes mellitus with foot ulcer; L97.412 - Non-pressure chronic ulcer of right heel and midfoot with fat layer exposed PLAN: Applied EpiFix #7 to right lateral foot veil was covered and Aquacel extra was placed on top for extra red of protection against infection. Patient is told he cannot get wet.\ Obtained cultures we will call with results Follow-up in 1 week (2) Decubitus ulcer of right foot, stage 2: CODE(S): L89.892 - Pressure ulcer of other site, stage 2 (3) Unspecified open wound of other part of head, initial encounter: CODE(S): S01.80XA - Unspecified open wound of other part of head, initial encounter PLAN: Left ear healed discontinue treatments
[2023-04-19 10:56] VITALS: BP 119/67; PULSE 86; RESP 16; TEMP 36.1
--- NOTE | 2023-04-19 12:23 | PN.PCM_ITS ---
History of Present Illness Date of Service: 04/19/23 Chief Complaint: Follow-up on his left ear laceration from a tree branch and right lateral foot open wound from a blister that was over 1 month old. 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 He has poor hygiene habits. Had developed a blister from his shoe on the right lateral foot that is quite long about 4 cm x 1 cm wide. States it bled like everything because he is on Eliquis. Seeing bleeds stop to get the bleeding under control. Now has developed some slough and fibrous material in the center with I think over a venous vein. Patient has numbing and has no feeling in his lower leg but he does say his feet throb. He does have many comorbidities such as A-fib diabetes does have a defibrillator high cholesterol BPH Progress of Wound: Tolerating and doing very well on EpiFix this was #7 applied today. Patient and group staff on wound we will hold on EpiFix for 1 week start him on Bactrim DS has some reddened areas around the perimeter of the wound and some tenderness but the wound itself is measuring smaller. We will proceed with Promogran for the week and follow-up next week with EpiFix Subjective Subjective Patient is okay with that Objective Data Objective Data Signs of infection with increased pain and swelling and some redness he is still macerated around the edge but the wound is smaller still filling in with new tissue. Vital Signs: Vital Signs Temp Pulse Resp BP O2 Del Method 96.9 F L 86 16 119/67 Room Air 04/19/23 10:56 04/19/23 10:56 04/19/23 10:56 04/19/23 10:56 04/19/23 10:56 Oxygen Delivery Method Room Air Lab / Micro Data Attestation: I reviewed the patient's lab results. Micro: Microbiology 04/13/23 11:10 Wound - Right Foot Gram Stain - Final 04/13/23 11:10 Wound - Right Foot Wound Culture - Final Serratia marcescens 04/13/23 11:10 Wound - Right Foot Anaerobic Culture - Final No anaerobic bacteria isolated. Physical Exam Const oriented x3 General Appearance: cooperative Exam Limitations: no limitations HEENT normocephalic Head and Scalp: normal to inspection Face and Sinus: normal facial exam Nose: external nose normal General Ear: hearing grossly impaired External Ear: external ears normal Mouth: oral and palatal mucosa normal Eyes PERRL General Eye: normal appearance of both eyes Neck full ROM General: normal visual inspection Resp normal respiratory effort Effort and Inspection: able to speak in complete sentences Auscultation: clear to auscultation bilaterally Cardio regular rate and regular rhythm Palpation: normal PMI Rate: regular rate Rhythm: regular rhythm GI Auscultation: normoactive bowel sounds Palpation: soft and no hepatosplenomegaly external exam normal Back/Spine Cervical Spine: cervical ROM normal Thoracic Spine / Upper Back: normal to inspection Lumbar Spine / Lower Back: normal to inspection Extremity normal to inspection General Extremity: normal exam except as noted Skin Wounds: wounds noted Wound Narrative: Right lateral foot open wound from blister Left Pe?a superficial laceration in ear from trees branches Neuro oriented x3 Psych Appearance: grossly normal Speech: normal speech Thought Content: normal thought content Judgement: judgement good Debridement Note Debridement Note Post-Debridement Measurements and Additional Note: Post-Debridement Measurements/Treatment - Nurse 1 - General Ulcer Assessment Start: 04/01/23 12:45 Freq: Status: Active Protocol: [email or web address] Activity Type Activity Date Activity User E-sign Co-sign Detail Recorded Client Recorded Date Recorded By Document 04/01/23 12:45 [id number] 04/01/23 12:46 RB Document 04/06/23 11:07 RB [id number] 04/06/23 11:09 RB Document 04/13/23 10:59 RB [id number] 04/13/23 11:00 RB Document 04/19/23 10:56 Desktop 04/19/23 11:02 MW 04/01/23 04/06/23 04/13/23 12:45 11:07 10:59 - Today's Visit Information Type of service Nurse-only Follow-up Visit Follow-up Visit Visit (Physician/STEREOTYPE FINISHER (Physician/STEREOTYPE FINISHER ) ) Arrival Mode Ambulatory Ambulatory Ambulatory Transfer Assistance None None None Accompanied by Patient Identification Verified (Name & Yes Yes Yes ) Patient Requires Transmission-Based No No No Precautions Safety Precautions Vital Signs Temperature (97.8 F-99.1 F) 96.8 F L 96.7 F L 96.8 F L Temperature Source Temporal Temporal Temporal Pulse Rate (60-100) 81 87 78 Pulse Location Monitor Monitor Monitor Respiratory Rate (12-18) 18 18 18 Respiratory rate source Observation Observation Observation Oxygen Delivery Method Blood Pressure (90/60-120/80) 113/89 H 111/65 117/71 Blood Pressure Mean (mm Hg) 97 80 86 Source Monitor Monitor Monitor Position Semi-Fowlers Semi-Fowlers Semi-Fowlers Blood Pressure Location Left Arm Left Arm Left Arm History Since Last Visit- (Skip if this is Patient's initial visit) Have you changed medications since your No No No last visit? Any new allergies or adverse reactions No No No Had a fall/change in ADL's that may No No No increase risk of falls Signs or symptoms of abuse and/or No No No neglect since last visit Have you been in the hospital since your No No No last visit? Has dressing in place as prescribed Yes Yes Yes Has compression in place as prescribed No No No Has offloadiing in place as prescribed Yes No No Experienced any changes in pain level or No No No management Left Footwear Right Footwear Pain Scale: 0-10 Numeric Is Patient Pain Free? Yes Yes Yes 04/19/23 10:56 WC - Today's Visit Information Type of service Follow-up Visit (Physician/STEREOTYPE FINISHER ) Arrival Mode Ambulatory Transfer Assistance None Accompanied by self Patient Identification Verified (Name & Yes ) Patient Requires Transmission-Based No Precautions Safety Precautions NA Vital Signs Temperature (97.8 F-99.1 F) 96.9 F L Temperature Source Temporal Pulse Rate (60-100) 86 Pulse Location Monitor Respiratory Rate (12-18) 16 Respiratory rate source Observation Oxygen Delivery Method Room Air Blood Pressure (90/60-120/80) 119/67 Blood Pressure Mean (mm Hg) 84 Source Monitor Position Sitting Blood Pressure Location Right Arm History Since Last Visit- (Skip if this is Patient's initial visit) Have you changed medications since your No last visit? Any new allergies or adverse reactions No Had a fall/change in ADL's that may No increase risk of falls Signs or symptoms of abuse and/or No neglect since last visit Have you been in the hospital since your No last visit? Has dressing in place as prescribed Yes Has compression in place as prescribed N/A Has offloadiing in place as prescribed No Experienced any changes in pain level or No management Left Footwear Regular Shoe Right Footwear Regular Shoe Pain Scale: 0-10 Numeric Is Patient Pain Free? Yes WC - Nurse 1 - General Ulcer Measurement Start: 04/01/23 12:45 Freq: Status: Active Protocol: Activity Type Activity Date Activity User E-sign Co-sign Detail Recorded Client Recorded Date Recorded By Document 04/01/23 12:45 RB [id number] 04/01/23 12:46 RB Document 04/06/23 11:07 RB [id number] 04/06/23 11:09 RB Document 04/13/23 10:59 RB [id number] 04/13/23 11:00 RB Document 04/19/23 10:56 MW Desktop 04/19/23 11:02 MW 04/01/23 04/06/23 04/13/23 12:45 11:07 10:59 Wound Center Nurse 1 #1- R LAT FOOT -Combined with other wound No No -Current Size (cm) - Length 3 2.8 -Current Size (cm) - Width 1 0.9 -Current Size (cm) - Depth 0.1 0.1 -Total Square Cm 3 2.52 -Photo Taken Yes -Epithelialization -Tunneling No No -Undermining/Tunneling No No -Circular Undermining No No -Exudate Amt Medium Large -Exudate Type Serosanguineous Serosanguineous -Wound Margin Distinct, Distinct, Outline Outline Attached Attached -Granulation Amt Medium (34-66%) Medium (34-66%) -Granulation Quality [place] -Slough/Fibrin Yes Yes -Necrosis Amt Medium (34-66%) Medium (34-66%) -Necrotic Tissue Type Adherent Slough Adherent Slough -Structure Exposed N/A N/A -Texture (Laya-wound Skin Appearance) Assessed Assessed, Scarring -Moisture (Laya-wound Skin Appearance) Maceration Assessed -Color (Laya-wound Skin Appearance) Assessed Assessed -Temperature (Laya-wound Skin No Abnormality No Abnormality Appearance) (Pt Warm) (Pt Warm) -Tenderness on Palpation (Laya-wound No No Skin Appearance) -Ulcer Cleansing Wound Cleanser Wound Cleanser -Foul Odor after Cleansing No No -Anesthetic Used 5% Lidocaine 5% Lidocaine Gel Gel -Wound Comment(s) steristrips intact Lower Limb Edema Present Yes Right Calf (cm) 33.8 Right Ankle (cm) 21.8 04/19/23 10:56 Wound Center Nurse 1 #1- R LAT FOOT -Combined with other wound No -Current Size (cm) - Length 2.3 -Current Size (cm) - Width 0.7 -Current Size (cm) - Depth 0.2 -Total Square Cm 1.61 -Photo Taken No -Epithelialization None Present -Tunneling No -Undermining/Tunneling No -Circular Undermining No -Exudate Amt Medium -Exudate Type Serosanguineous -Wound Margin Flat & Intact -Granulation Amt Large (67-100%) -Granulation Quality [place] -Slough/Fibrin Yes -Necrosis Amt Small (1-33%) -Necrotic Tissue Type Adherent Slough -Structure Exposed N/A -Texture (Laya-wound Skin Appearance) Assessed, Scarring -Moisture (Laya-wound Skin Appearance) Assessed, Maceration -Color (Laya-wound Skin Appearance) No Abnormality, Assessed -Temperature (Laya-wound Skin No Abnormality Appearance) (Pt Warm) -Tenderness on Palpation (Laya-wound No Skin Appearance) -Ulcer Cleansing Soap and Water -Foul Odor after Cleansing No -Anesthetic Used 5% Lidocaine Gel -Wound Comment(s) Lower Limb Edema Present No Right Calf (cm) Right Ankle (cm) WC - Nurse 2 - General Ulcer CM Notes Start: 04/01/23 12:45 Freq: Status: Active Protocol: Activity Type Activity Date Activity User E-sign Co-sign Detail Recorded Client Recorded Date Recorded By Document 04/06/23 11:24 MW [id number] 04/06/23 11:30 MW Document 04/13/23 11:06 MW [id number] 04/13/23 11:13 MW Edit Result 04/13/23 11:06 MW (1) [id number] 04/14/23 06:36 PL Document 04/19/23 11:04 MW Desktop 04/19/23 11:08 MW (1) #1- R LAT FOOT - Apply Skin Sub - 1st 25 sq cm - Feet => 1 - Apply Skin Sub - each addt'l 25 sq cm 1 => - Feet 04/06/23 04/13/23 04/19/23 11:24 11:06 11:04 Wound Center Nurse 2 #1- R LAT FOOT -Time 11:25 11:08 11:05 -Correct Patient Yes Yes Yes -Correct Side, Site, Position Yes Yes Yes -Correct Procedure Yes Yes Yes -Procedure Performed Yes Yes Yes -Type of Procedure Debridement Debridement Debridement -Clinical Debridement Subcutaneous Subcutaneous Subcutaneous -Tissue Removed Subcutaneous Subcutaneous Subcutaneous -Post Debridement (cm) - Length 2.2 2.2 2.5 -Post Debridement (cm) - Width 1.0 0.9 0.7 -Post Debridement (cm) - Depth 0.2 0.2 0.2 -Total Square (Post) (cm) 2.20 1.98 1.75 -Area of Debridement (cm) - Length 2.2 2.2 2.5 -Area of Debridement (cm) - Width 1.0 0.9 0.7 -Total Square (Area) (cm) 2.20 1.98 1.75 -Tunneling No No No -Undermining/Tunneling No No No -Circular Undermining No No No -Wound/Ulcer Outcome Not Healed Not Healed Not Healed -Ulcer Cleansing Rinsed/ Rinsed/ Rinsed/ Irrigated with Irrigated with Irrigated with Saline Saline Saline -Foul Odor after Cleansing No No No -Bioengineered Tissue Yes Yes No -Type of Bioengineered Tissue Epifix Epifix 18mm Disc -Expiration Date 11/30/27 12/31/27 -Product Lot Number [id number] -Percent Used 100 100 -Lot number of Saline Used [id number] -Bleeding Controlled with Pressure Pressure Pressure -Treatment Response Procedure Procedure Procedure Tolerated Well Tolerated Well Tolerated Well -Offloading No No No -Debridement - Subq, 1st 20sq cm No No Yes -Apply Skin Sub - 1st 25 sq cm - Feet 1 1 -Epifix (per sq cm) 4 -Epifix 18mm Disc 3 Pain Scale: 0-10 Numeric Is Patient Pain Free? Yes Yes Yes WC - Nurse 3 - General Ulcer D/C NN Start: 04/01/23 12:45 Freq: Status: Active Protocol: Activity Type Activity Date Activity User E-sign Co-sign Detail Recorded Client Recorded Date Recorded By Document 04/01/23 12:45 RB [id number] 04/01/23 12:46 RB Document 04/06/23 11:35 RB [id number] 04/06/23 11:36 RB Document 04/08/23 11:33 IL [id number] 04/08/23 11:51 IL Document 04/13/23 11:27 RB [id number] 04/13/23 11:27 RB Document 04/19/23 11:08 MW Desktop 04/19/23 11:09 MW 04/01/23 04/06/23 04/08/23 12:45 11:35 11:33 Vital Signs Temperature (97.8 F-99.1 F) 96.8 F L 97 F L Temperature Source Temporal Temporal Pulse Rate (60-100) 81 64 Pulse Location Monitor Monitor Respiratory Rate (12-18) 18 18 Respiratory rate source Observation Observation Oxygen Delivery Method Room Air Blood Pressure (90/60-120/80) 113/89 H 146/87 H Blood Pressure Mean (mm Hg) 97 106 Source Monitor Monitor Position Semi-Fowlers Sitting Blood Pressure Location Left Arm Left Arm Pain Scale: 0-10 Numeric Is Patient Pain Free? Yes Yes Yes Teaching: Wound Center Dressing Your Wound -Person Taught Patient -Teaching Method Discussion, Demonstration -Response to teaching Verbalize understanding Wound Care Center Nurse 3 #1- R LAT FOOT -Ulcer Cleansing Soap and Water -Foul Odor after Cleansing -Negative Pressure Wound Therapy -Primary Dressing Applied Aquacel Extra Aquacel Extra Aquacel AG 4x4 -Other Dressing steri strips -Primary Dressing Covered/Secured with Dry Gauze,Dry Dry Gauze & Dry Gauze, Gauze & Roll Roll Gauze, Secured with Gauze,Secured Secured with Tape with Tape Tape -Aquacel Extra 1 1 -Aquacel AG 4x4 1 -Fibracol Plus 4x4 Treatment Response Procedure Procedure Tolerated Well Tolerated Well WC - Visit Discharge Discharge Condition Stable Stable Ambulatory Status Ambulatory Ambulatory Transportation Private Auto Private Auto Accompanied by Medication Reconcilliation completed & No No provided to patient/care provider Clinical Summary of Care Provided Yes Yes 04/13/23 04/19/23 11:27 11:08 Vital Signs Temperature (97.8 F-99.1 F) Temperature Source Pulse Rate (60-100) Pulse Location Respiratory Rate (12-18) Respiratory rate source Oxygen Delivery Method Blood Pressure (90/60-120/80) Blood Pressure Mean (mm Hg) Source Position Blood Pressure Location Pain Scale: 0-10 Numeric Is Patient Pain Free? Yes Yes Teaching: Wound Center Dressing Your Wound -Person Taught Patient -Teaching Method Discussion -Response to teaching Verbalize understanding Wound Care Center Nurse 3 #1- R LAT FOOT -Ulcer Cleansing Rinsed/ Irrigated with Saline -Foul Odor after Cleansing No -Negative Pressure Wound Therapy N/A -Primary Dressing Applied Aquacel Extra Fibracol Plus 4x4 -Other Dressing -Primary Dressing Covered/Secured with Dry Gauze & Dry Gauze & Roll Gauze, Roll Gauze, Secured with Secured with Tape Tape -Aquacel Extra 1 -Aquacel AG 4x4 -Fibracol Plus 4x4 1 Treatment Response Procedure Procedure Tolerated Well Tolerated Well WC - Visit Discharge Discharge Condition Stable Stable Ambulatory Status Ambulatory Ambulatory Transportation Private Auto Private Auto Accompanied by self Medication Reconcilliation completed & No No provided to patient/care provider Clinical Summary of Care Provided Yes Yes Assessment/Plan Assessment/Plan (1) Diabetic foot ulcer associated with type 2 diabetes mellitus: CODE(S): E11.621 - Type 2 diabetes mellitus with foot ulcer; L97.509 - Non-pressure chronic ulcer of other part of unspecified foot with unspecified severity QUALIFIERS: Diabetic foot ulcer location: midfoot Laterality: right Non-pressure ulcer stage: with fat layer exposed Qualified Code(s): E11.621 - Type 2 diabetes mellitus with foot ulcer; L97.412 - Non-pressure chronic ulcer of right heel and midfoot with fat layer exposed PLAN: Hold on EpiFix apply Promogran to wound base moistened with gauze dressing over top Bactrim DS 1 p.o. twice daily for 14 days (2) Decubitus ulcer of right foot, stage 2: CODE(S): L89.892 - Pressure ulcer of other site, stage 2 (3) Unspecified open wound of other part of head, initial encounter: CODE(S): S01.80XA - Unspecified open wound of other part of head, initial encounter PLAN: Left ear healed discontinue treatments
[2023-04-27 11:01] VITALS: BP 113/73; PULSE 84; RESP 18; TEMP 35.6
--- NOTE | 2023-04-27 13:39 | PN.PCM_ITS ---
History of Present Illness Date of Service: 04/27/23 Chief Complaint: Follow-up on his left ear laceration from a tree branch and right lateral foot open wound from a blister that was over 1 month old. 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 He has poor hygiene habits. Had developed a blister from his shoe on the right lateral foot that is quite long about 4 cm x 1 cm wide. States it bled like everything because he is on Eliquis. Seeing bleeds stop to get the bleeding under control. Now has developed some slough and fibrous material in the center with I think over a venous vein. Patient has numbing and has no feeling in his lower leg but he does say his feet throb. He does have many comorbidities such as A-fib diabetes does have a defibrillator high cholesterol BPH Progress of Wound: Patient had infection we skipped a week with the EpiFix and had him use Fibracol instead tolerated well. Still measuring smaller redness is better. Patient is continuing the antibiotic he is almost done. We will apply epi number for 8 today. No sign of infection and measuring much smaller and shallower. Subjective Subjective Patient will be happy when he does not have to come any more Objective Data Objective Data No sign of infection measurements are smaller we will proceed with epi #8 today Vital Signs: Vital Signs Temp Pulse Resp BP O2 Del Method 96.1 F L 84 18 113/73 Room Air 04/27/23 11:01 04/27/23 11:01 04/27/23 11:01 04/27/23 11:01 04/19/23 10:56 Oxygen Delivery Method Room Air Lab / Micro Data Micro: Microbiology 04/13/23 11:10 Wound - Right Foot Gram Stain - Final 04/13/23 11:10 Wound - Right Foot Wound Culture - Final Serratia marcescens 04/13/23 11:10 Wound - Right Foot Anaerobic Culture - Final No anaerobic bacteria isolated. Physical Exam Const oriented x3 General Appearance: cooperative Exam Limitations: no limitations HEENT normocephalic Head and Scalp: normal to inspection Face and Sinus: normal facial exam Nose: external nose normal General Ear: hearing grossly impaired External Ear: external ears normal Mouth: oral and palatal mucosa normal Eyes PERRL General Eye: normal appearance of both eyes Neck full ROM General: normal visual inspection Resp normal respiratory effort Effort and Inspection: able to speak in complete sentences Auscultation: clear to auscultation bilaterally Cardio regular rate and regular rhythm Palpation: normal PMI Rate: regular rate Rhythm: regular rhythm GI Auscultation: normoactive bowel sounds Palpation: soft and no hepatosplenomegaly external exam normal Back/Spine Cervical Spine: cervical ROM normal Thoracic Spine / Upper Back: normal to inspection Lumbar Spine / Lower Back: normal to inspection Extremity normal to inspection General Extremity: normal exam except as noted Skin Wounds: wounds noted Wound Narrative: Right lateral foot open wound from blister Left Pe?a superficial laceration in ear from trees branches Neuro oriented x3 Psych Appearance: grossly normal Speech: normal speech Thought Content: normal thought content Judgement: judgement good Debridement Note Debridement Note Wound debrided: Right lateral lower foot Type of Debridement: Excisional debridement Anesthesia Used: 5% Lidocaine Gel Depth: in the subcutaneous layer Percentage of wound debrided: 100 Instrument Used: 3mm curette Tissue Removed: Fibrin and some callus Severity: Fat Layer Exposed Amount of bleeding with debridement: Mild Bleeding Controlled with: Compression and gauze Patient tolerated procedure: Patient tolerated procedure well Post-Debridement Measurements and Additional Note: Post-Debridement Measurements/Treatment - Nurse 1 - General Ulcer Assessment Start: 04/01/23 12:45 Freq: Status: Active Protocol: ALEJANDRO Activity Type Activity Date Activity User E-sign Co-sign Detail Recorded Client Recorded Date Recorded By Document 04/01/23 12:45 [id number] 04/01/23 12:46 RB Document 04/06/23 11:07 [id number] 04/06/23 11:09 RB Document 04/13/23 10:59 RB [id number] 04/13/23 11:00 RB Document 04/19/23 10:56 Desktop 04/19/23 11:02 MW Document 04/27/23 11:01 RB Desktop 04/27/23 11:03 RB 04/01/23 04/06/23 04/13/23 12:45 11:07 10:59 - Today's Visit Information Type of service Nurse-only Follow-up Visit Follow-up Visit Visit (Physician/HAND RUG BRAIDER (Physician/HAND RUG BRAIDER ) ) Arrival Mode Ambulatory Ambulatory Ambulatory Transfer Assistance None None None Accompanied by Patient Identification Verified (Name & Yes Yes Yes ) Patient Requires Transmission-Based No No No Precautions Safety Precautions Vital Signs Temperature (97.8 F-99.1 F) 96.8 F L 96.7 F L 96.8 F L Temperature Source Temporal Temporal Temporal Pulse Rate (60-100) 81 87 78 Pulse Location Monitor Monitor Monitor Respiratory Rate (12-18) 18 18 18 Respiratory rate source Observation Observation Observation Oxygen Delivery Method Blood Pressure (90/60-120/80) 113/89 H 111/65 117/71 Blood Pressure Mean (mm Hg) 97 80 86 Source Monitor Monitor Monitor Position Semi-Fowlers Semi-Fowlers Semi-Fowlers Blood Pressure Location Left Arm Left Arm Left Arm History Since Last Visit- (Skip if this is Patient's initial visit) Have you changed medications since your No No No last visit? Any new allergies or adverse reactions No No No Had a fall/change in ADL's that may No No No increase risk of falls Signs or symptoms of abuse and/or No No No neglect since last visit Have you been in the hospital since your No No No last visit? Has dressing in place as prescribed Yes Yes Yes Has compression in place as prescribed No No No Has offloadiing in place as prescribed Yes No No Experienced any changes in pain level or No No No management Left Footwear Right Footwear Pain Scale: 0-10 Numeric Is Patient Pain Free? Yes Yes Yes 04/19/23 04/27/23 10:56 11:01 - Today's Visit Information Type of service Follow-up Visit Follow-up Visit (Physician/HAND RUG BRAIDER (Physician/HAND RUG BRAIDER ) ) Arrival Mode Ambulatory Ambulatory Transfer Assistance None None Accompanied by self Patient Identification Verified (Name & Yes Yes ) Patient Requires Transmission-Based No No Precautions Safety Precautions NA Vital Signs Temperature (97.8 F-99.1 F) 96.9 F L 96.1 F L Temperature Source Temporal Temporal Pulse Rate (60-100) 86 84 Pulse Location Monitor Monitor Respiratory Rate (12-18) 16 18 Respiratory rate source Observation Observation Oxygen Delivery Method Room Air Blood Pressure (90/60-120/80) 119/67 113/73 Blood Pressure Mean (mm Hg) 84 86 Source Monitor Monitor Position Sitting Semi-Fowlers Blood Pressure Location Right Arm Left Arm History Since Last Visit- (Skip if this is Patient's initial visit) Have you changed medications since your No No last visit? Any new allergies or adverse reactions No No Had a fall/change in ADL's that may No No increase risk of falls Signs or symptoms of abuse and/or No No neglect since last visit Have you been in the hospital since your No No last visit? Has dressing in place as prescribed Yes Yes Has compression in place as prescribed N/A Yes Has offloadiing in place as prescribed No No Experienced any changes in pain level or No No management Left Footwear Regular Shoe Right Footwear Regular Shoe Pain Scale: 0-10 Numeric Is Patient Pain Free? Yes Yes WC - Nurse 1 - General Ulcer Measurement Start: 04/01/23 12:45 Freq: Status: Active Protocol: Activity Type Activity Date Activity User E-sign Co-sign Detail Recorded Client Recorded Date Recorded By Document 04/01/23 12:45 RB [id number] 04/01/23 12:46 RB Document 04/06/23 11:07 RB [id number] 04/06/23 11:09 RB Document 04/13/23 10:59 RB [id number] 04/13/23 11:00 RB Document 04/19/23 10:56 MW Desktop 04/19/23 11:02 MW Document 04/27/23 11:01 RB Desktop 04/27/23 11:03 RB 04/01/23 04/06/23 04/13/23 12:45 11:07 10:59 Wound Center Nurse 1 #1- R LAT FOOT -Combined with other wound No No -Current Size (cm) - Length 3 2.8 -Current Size (cm) - Width 1 0.9 -Current Size (cm) - Depth 0.1 0.1 -Total Square Cm 3 2.52 -Photo Taken Yes -Epithelialization -Tunneling No No -Undermining/Tunneling No No -Circular Undermining No No -Exudate Amt Medium Large -Exudate Type Serosanguineous Serosanguineous -Wound Margin Distinct, Distinct, Outline Outline Attached Attached -Granulation Amt Medium (34-66%) Medium (34-66%) -Granulation Quality [place] -Slough/Fibrin Yes Yes -Necrosis Amt Medium (34-66%) Medium (34-66%) -Necrotic Tissue Type Adherent Slough Adherent Slough -Structure Exposed N/A N/A -Texture (Laya-wound Skin Appearance) Assessed Assessed, Scarring -Moisture (Laya-wound Skin Appearance) Maceration Assessed -Color (Laya-wound Skin Appearance) Assessed Assessed -Temperature (Laya-wound Skin No Abnormality No Abnormality Appearance) (Pt Warm) (Pt Warm) -Tenderness on Palpation (Laya-wound No No Skin Appearance) -Ulcer Cleansing Wound Cleanser Wound Cleanser -Foul Odor after Cleansing No No -Anesthetic Used 5% Lidocaine 5% Lidocaine Gel Gel -Wound Comment(s) steristrips intact Lower Limb Edema Present Yes Right Calf (cm) 33.8 Right Ankle (cm) 21.8 04/19/23 04/27/23 10:56 11:01 Wound Center Nurse 1 #1- R LAT FOOT -Combined with other wound No No -Current Size (cm) - Length 2.3 0.8 -Current Size (cm) - Width 0.7 0.5 -Current Size (cm) - Depth 0.2 0.1 -Total Square Cm 1.61 0.40 -Photo Taken No Yes -Epithelialization None Present -Tunneling No No -Undermining/Tunneling No No -Circular Undermining No No -Exudate Amt Medium Medium -Exudate Type Serosanguineous Serosanguineous -Wound Margin Flat & Intact Distinct, Outline Attached -Granulation Amt Large (67-100%) Medium (34-66%) -Granulation Quality [place] -Slough/Fibrin Yes Yes -Necrosis Amt Small (1-33%) Medium (34-66%) -Necrotic Tissue Type Adherent Slough Adherent Slough -Structure Exposed N/A N/A -Texture (Laya-wound Skin Appearance) Assessed, Assessed, Scarring Scarring -Moisture (Laya-wound Skin Appearance) Assessed, Assessed Maceration -Color (Laya-wound Skin Appearance) No Abnormality, Assessed Assessed -Temperature (Laya-wound Skin No Abnormality No Abnormality Appearance) (Pt Warm) (Pt Warm) -Tenderness on Palpation (Laya-wound No No Skin Appearance) -Ulcer Cleansing Soap and Water Wound Cleanser -Foul Odor after Cleansing No No -Anesthetic Used 5% Lidocaine 5% Lidocaine Gel Gel -Wound Comment(s) Lower Limb Edema Present No Yes Right Calf (cm) 33.5 Right Ankle (cm) 21 WC - Nurse 2 - General Ulcer CM Notes Start: 04/01/23 12:45 Freq: Status: Active Protocol: Activity Type Activity Date Activity User E-sign Co-sign Detail Recorded Client Recorded Date Recorded By Document 04/06/23 11:24 MW [id number] 04/06/23 11:30 MW Document 04/13/23 11:06 MW [id number] 04/13/23 11:13 MW Edit Result 04/13/23 11:06 MW (1) [id number] 04/14/23 06:36 PL Document 04/19/23 11:04 MW Desktop 04/19/23 11:08 MW Document 04/27/23 11:27 GM Desktop 04/27/23 11:36 GM (1) #1- R LAT FOOT - Apply Skin Sub - 1st 25 sq cm - Feet => 1 - Apply Skin Sub - each addt'l 25 sq cm 1 => - Feet 04/06/23 04/13/23 04/19/23 11:24 11:06 11:04 Wound Center Nurse 2 #1- R LAT FOOT -Time 11:25 11:08 11:05 -Correct Patient Yes Yes Yes -Correct Side, Site, Position Yes Yes Yes -Correct Procedure Yes Yes Yes -Procedure Performed Yes Yes Yes -Type of Procedure Debridement Debridement Debridement -Clinical Debridement Subcutaneous Subcutaneous Subcutaneous -Tissue Removed Subcutaneous Subcutaneous Subcutaneous -Post Debridement (cm) - Length 2.2 2.2 2.5 -Post Debridement (cm) - Width 1.0 0.9 0.7 -Post Debridement (cm) - Depth 0.2 0.2 0.2 -Total Square (Post) (cm) 2.20 1.98 1.75 -Area of Debridement (cm) - Length 2.2 2.2 2.5 -Area of Debridement (cm) - Width 1.0 0.9 0.7 -Total Square (Area) (cm) 2.20 1.98 1.75 -Tunneling No No No -Undermining/Tunneling No No No -Circular Undermining No No No -Wound/Ulcer Outcome Not Healed Not Healed Not Healed -Ulcer Cleansing Rinsed/ Rinsed/ Rinsed/ Irrigated with Irrigated with Irrigated with Saline Saline Saline -Foul Odor after Cleansing No No No -Bioengineered Tissue Yes Yes No -Type of Bioengineered Tissue Epifix Epifix 18mm Disc -Expiration Date 11/30/27 12/31/27 -Product Lot Number [id number] -Percent Used 100 100 -Lot number of Saline Used [id number] -Bleeding Controlled with Pressure Pressure Pressure -Treatment Response Procedure Procedure Procedure Tolerated Well Tolerated Well Tolerated Well -Offloading No No No -Debridement - Subq, 1st 20sq cm No No Yes -Apply Skin Sub - 1st 25 sq cm - Feet 1 1 -Epifix (per sq cm) 4 -Epifix 18mm Disc 3 Pain Scale: 0-10 Numeric Is Patient Pain Free? Yes Yes Yes 04/27/23 11:27 Wound Center Nurse 2 #1- R LAT FOOT -Time 11:28 -Correct Patient Yes -Correct Side, Site, Position Yes -Correct Procedure Yes -Procedure Performed Yes -Type of Procedure Debridement -Clinical Debridement Subcutaneous -Tissue Removed Subcutaneous -Post Debridement (cm) - Length 2.1 -Post Debridement (cm) - Width 0.6 -Post Debridement (cm) - Depth 0.1 -Total Square (Post) (cm) 1.26 -Area of Debridement (cm) - Length 2.1 -Area of Debridement (cm) - Width 0.6 -Total Square (Area) (cm) 1.26 -Tunneling No -Undermining/Tunneling No -Circular Undermining -Wound/Ulcer Outcome Not Healed -Ulcer Cleansing Rinsed/ Irrigated with Saline -Foul Odor after Cleansing No -Bioengineered Tissue Yes -Type of Bioengineered Tissue Epifix 18mm Disc -Expiration Date 12/31/27 -Product Lot Number [id number] -Percent Used 10 -Lot number of Saline Used [id number] -Bleeding Controlled with Pressure -Treatment Response Procedure Tolerated Well -Offloading -Debridement - Subq, 1st 20sq cm No -Apply Skin Sub - 1st 25 sq cm - Feet 1 -Epifix (per sq cm) -Epifix 18mm Disc 3 Pain Scale: 0-10 Numeric Is Patient Pain Free? Yes WC - Nurse 3 - General Ulcer D/C NN Start: 04/01/23 12:45 Freq: Status: Active Protocol: Activity Type Activity Date Activity User E-sign Co-sign Detail Recorded Client Recorded Date Recorded By Document 04/01/23 12:45 RB [id number] 04/01/23 12:46 RB Document 04/06/23 11:35 RB [id number] 04/06/23 11:36 RB Document 04/08/23 11:33 MT [id number] 04/08/23 11:51 MT Document 04/13/23 11:27 RB [id number] 04/13/23 11:27 RB Document 04/19/23 11:08 MW Desktop 04/19/23 11:09 MW Document 04/27/23 11:43 BMF Desktop 04/27/23 11:44 BMF 04/01/23 04/06/23 04/08/23 12:45 11:35 11:33 Vital Signs Temperature (97.8 F-99.1 F) 96.8 F L 97 F L Temperature Source Temporal Temporal Pulse Rate (60-100) 81 64 Pulse Location Monitor Monitor Respiratory Rate (12-18) 18 18 Respiratory rate source Observation Observation Oxygen Delivery Method Room Air Blood Pressure (90/60-120/80) 113/89 H 146/87 H Blood Pressure Mean (mm Hg) 97 106 Source Monitor Monitor Position Semi-Fowlers Sitting Blood Pressure Location Left Arm Left Arm Pain Scale: 0-10 Numeric Is Patient Pain Free? Yes Yes Yes Teaching: Wound Center Dressing Your Wound -Person Taught Patient -Teaching Method Discussion, Demonstration -Response to teaching Verbalize understanding Wound Care Center Nurse 3 #1- R LAT FOOT -Ulcer Cleansing Soap and Water -Foul Odor after Cleansing -Negative Pressure Wound Therapy -Primary Dressing Applied Aquacel Extra Aquacel Extra Aquacel AG 4x4 -Other Dressing steri strips -Primary Dressing Covered/Secured with Dry Gauze,Dry Dry Gauze & Dry Gauze, Gauze & Roll Roll Gauze, Secured with Gauze,Secured Secured with Tape with Tape Tape -Other Covering -Aquacel Extra 1 1 -Aquacel AG 4x4 1 -Fibracol Plus 4x4 Treatment Response Procedure Procedure Tolerated Well Tolerated Well WC - Visit Discharge Discharge Condition Stable Stable Ambulatory Status Ambulatory Ambulatory Transportation Private Auto Private Auto Accompanied by Medication Reconcilliation completed & No No provided to patient/care provider Clinical Summary of Care Provided Yes Yes 04/13/23 04/19/23 04/27/23 11:27 11:08 11:43 Vital Signs Temperature (97.8 F-99.1 F) Temperature Source Pulse Rate (60-100) Pulse Location Respiratory Rate (12-18) Respiratory rate source Oxygen Delivery Method Blood Pressure (90/60-120/80) Blood Pressure Mean (mm Hg) Source Position Blood Pressure Location Pain Scale: 0-10 Numeric Is Patient Pain Free? Yes Yes Yes Teaching: Wound Center Dressing Your Wound -Person Taught Patient -Teaching Method Discussion -Response to teaching Verbalize understanding Wound Care Center Nurse 3 #1- R LAT FOOT -Ulcer Cleansing Rinsed/ Irrigated with Saline -Foul Odor after Cleansing No -Negative Pressure Wound Therapy N/A -Primary Dressing Applied Aquacel Extra Fibracol Plus Aquacel Extra 4x4 -Other Dressing EPIFIX -Primary Dressing Covered/Secured with Dry Gauze & Dry Gauze & Dry Gauze & Roll Gauze, Roll Gauze, Roll Gauze, Secured with Secured with Secured with Tape Tape Tape -Other Covering PER RB RN -Aquacel Extra 1 1 -Aquacel AG 4x4 -Fibracol Plus 4x4 1 Treatment Response Procedure Procedure Procedure Tolerated Well Tolerated Well Tolerated Well WC - Visit Discharge Discharge Condition Stable Stable Stable Ambulatory Status Ambulatory Ambulatory Ambulatory Transportation Private Auto Private Auto Private Auto Accompanied by self Medication Reconcilliation completed & No No provided to patient/care provider Clinical Summary of Care Provided Yes Yes Assessment/Plan Assessment/Plan (1) Diabetic foot ulcer associated with type 2 diabetes mellitus: CODE(S): E11.621 - Type 2 diabetes mellitus with foot ulcer; L97.509 - Non-pressure chronic ulcer of other part of unspecified foot with unspecified severity QUALIFIERS: Diabetic foot ulcer location: midfoot Laterality: right Non-pressure ulcer stage: with fat layer exposed Qualified Code(s): E11.621 - Type 2 diabetes mellitus with foot ulcer; L97.412 - Non-pressure chronic ulcer of right heel and midfoot with fat layer exposed PLAN: EpiFix #8 up applied with wound veil and Steri-Strips. Patient instructed not to bathe or get it wet Follow-up in 1 week continue Bactrim DS 1 p.o. twice daily for 14 days Follow-up sooner as needed (2) Decubitus ulcer of right foot, stage 2: CODE(S): L89.892 - Pressure ulcer of other site, stage 2 (3) Unspecified open wound of other part of head, initial encounter: CODE(S): S01.80XA - Unspecified open wound of other part of head, initial encounter PLAN: Left ear healed discontinue treatments
== END 2023-04-30 23:59 | disposition home or self-care (01) ==
LOC: WC 10:45
PROVIDERS: PCP Family Medicine; Referring Provider Nurse Practitioner; Visit Provider Nurse Practitioner
DX: E11.621 Type 2 diabetes mellitus with foot ulcer (principal); L89.892 Pressure ulcer of other site, stage 2; L97.412 Non-pressure chronic ulcer of right heel and midfoot with fat layer exposed; S01.80XA Unspecified open wound of other part of head, initial encounter
CPT/HCPCS: 11042; 15275; 15276; 87070; 87075; 87077; 87186; 87205; 99211; 99213; Q4186; G0463

== ENCOUNTER 2023-05-18 11:00 | Outpatient (RCR) | payer MEDICARE, BC, SELFPAY ==
[2023-05-01 00:21] VITALS: BP 113/73; PULSE 84; RESP 18; TEMP 35.6
[2023-05-04 11:09] VITALS: BP 121/67; PULSE 78; RESP 18; TEMP 36.6
--- NOTE | 2023-05-04 12:11 | PN.PCM_ITS ---
History of Present Illness Date of Service: 05/04/23 Chief Complaint: Follow-up on his left ear laceration from a tree branch and right lateral foot open wound from a blister that was over 1 month old. 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 He has poor hygiene habits. Had developed a blister from his shoe on the right lateral foot that is quite long about 4 cm x 1 cm wide. States it bled like everything because he is on Eliquis. Seeing bleeds stop to get the bleeding under control. Now has developed some slough and fibrous material in the center with I think over a venous vein. Patient has numbing and has no feeling in his lower leg but he does say his feet throb. He does have many comorbidities such as A-fib diabetes does have a defibrillator high cholesterol BPH Progress of Wound: Right lateral foot is measuring smaller more shallow looks better patient is done with his antibiotic therapy Subjective Subjective Patient is happy with outcomes Objective Data Objective Data We will continue using the EpiFix #9 to his right foot lateral doing well no sign of infection Vital Signs: Vital Signs Temp Pulse Resp BP 98 F 78 18 121/67 H 05/04/23 11:09 05/04/23 11:09 05/04/23 11:09 05/04/23 11:09 Physical Exam Const oriented x3 General Appearance: cooperative Exam Limitations: no limitations HEENT normocephalic Head and Scalp: normal to inspection Face and Sinus: normal facial exam Nose: external nose normal General Ear: hearing grossly impaired External Ear: external ears normal Mouth: oral and palatal mucosa normal Eyes PERRL General Eye: normal appearance of both eyes Neck full ROM General: normal visual inspection Resp normal respiratory effort Effort and Inspection: able to speak in complete sentences Auscultation: clear to auscultation bilaterally Cardio regular rate and regular rhythm Palpation: normal PMI Rate: regular rate Rhythm: regular rhythm GI Auscultation: normoactive bowel sounds Palpation: soft and no hepatosplenomegaly external exam normal Back/Spine Cervical Spine: cervical ROM normal Thoracic Spine / Upper Back: normal to inspection Lumbar Spine / Lower Back: normal to inspection Extremity normal to inspection General Extremity: normal exam except as noted Skin Wounds: wounds noted Wound Narrative: Right lateral foot open wound from blister Left Pe?a superficial laceration in ear from trees branches Neuro oriented x3 Psych Appearance: grossly normal Speech: normal speech Thought Content: normal thought content Judgement: judgement good Debridement Note Debridement Note Wound debrided: Right lateral foot DFU Wound Grade/Stage: Stage II Type of Debridement: Excisional debridement Anesthesia Used: 5% Lidocaine Gel Depth: Down to and including healthy tissue Percentage of wound debrided: 100 Instrument Used: 3mm curette Tissue Removed: Fibrin Amount of bleeding with debridement: Mild Bleeding Controlled with: Compression and gauze Patient tolerated procedure: Patient tolerated procedure well Post-Debridement Measurements and Additional Note: Post-Debridement Measurements/Treatment BRUNO - Nurse 1 - General Ulcer Assessment Start: 05/04/23 11:09 Freq: Status: Active Protocol: ALEJANDRO Activity Type Activity Date Activity User E-sign Co-sign Detail Recorded Client Recorded Date Recorded By Document 05/04/23 11:09 RB Desktop 05/04/23 11:11 RB 05/04/23 11:09 WC - Today's Visit Information Type of service 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 Any new allergies or adverse reactions No Had a fall/change in ADL's that may No increase risk of falls Signs or symptoms of abuse and/or No neglect since last visit Have you been in the hospital since your No last visit? Has dressing in place as prescribed Yes Has compression in place as prescribed No Has offloadiing in place as prescribed No Experienced any changes in pain level or No management Left Footwear Regular Shoe Right Footwear Regular Shoe Pain Scale: 0-10 Numeric Is Patient Pain Free? Yes BRUNO - Nurse 1 - General Ulcer Measurement Start: 05/04/23 11:09 Freq: Status: Active Protocol: Activity Type Activity Date Activity User E-sign Co-sign Detail Recorded Client Recorded Date Recorded By Document 05/04/23 11:09 RB Desktop 05/04/23 11:11 RB 05/04/23 11:09 Wound Center Nurse 1 #1- R LAT FOOT -Combined with other wound No -Current Size (cm) - Length 2.2 -Current Size (cm) - Width 0.7 -Current Size (cm) - Depth 0.1 -Total Square Cm 1.54 -Photo Taken Yes -Tunneling No -Undermining/Tunneling No -Circular Undermining No -Exudate Amt Medium -Exudate Type Serosanguineous -Wound Margin Distinct, Outline Attached -Granulation Amt Medium (34-66%) -Granulation Quality [place] Switch -Slough/Fibrin Yes -Necrosis Amt Medium (34-66%) -Necrotic Tissue Type Adherent Slough -Structure Exposed N/A -Texture (Laya-wound Skin Appearance) Assessed -Moisture (Laya-wound Skin Appearance) Assessed, Maceration -Color (Laya-wound Skin Appearance) Assessed -Temperature (Laya-wound Skin No Abnormality Appearance) (Pt Warm) -Tenderness on Palpation (Laya-wound No Skin Appearance) -Ulcer Cleansing Wound Cleanser -Foul Odor after Cleansing No -Anesthetic Used 5% Lidocaine Gel WC - Nurse 2 - General Ulcer CM Notes Start: 05/04/23 11:09 Freq: Status: Active Protocol: Activity Type Activity Date Activity User E-sign Co-sign Detail Recorded Client Recorded Date Recorded By Document 05/04/23 11:34 MW Desktop 05/04/23 11:39 MW 05/04/23 11:34 Wound Center Nurse 2 -Time 11:35 -Correct Patient Yes -Correct Side, Site, Position Yes -Correct Procedure Yes -Procedure Performed Yes -Type of Procedure Debridement -Clinical Debridement Subcutaneous -Tissue Removed Subcutaneous -Post Debridement (cm) - Length 2.0 -Post Debridement (cm) - Width 0.5 -Post Debridement (cm) - Depth 0.2 -Total Square (Post) (cm) 1.00 -Area of Debridement (cm) - Length 2.0 -Area of Debridement (cm) - Width 0.5 -Total Square (Area) (cm) 1.00 -Tunneling No -Undermining/Tunneling No -Circular Undermining No -Wound/Ulcer Outcome Not Healed -Ulcer Cleansing Rinsed/ Irrigated with Saline -Foul Odor after Cleansing No -Bioengineered Tissue Yes -Type of Bioengineered Tissue Epifix 18mm Disc -Expiration Date 01/30/28 -Product Lot Number [id number] -Percent Used 100 -Lot number of Saline Used [id number] -Bleeding Controlled with Pressure -Treatment Response Procedure Tolerated Well -Offloading No -Debridement - Subq, 1st 20sq cm No -Apply Skin Sub - 1st 25 sq cm - Legs 1 -Epifix 18mm Disc 3 Pain Scale: 0-10 Numeric Is Patient Pain Free? Yes - Nurse 3 - General Ulcer D/C NN Start: 05/04/23 11:09 Freq: Status: Active Protocol: Activity Type Activity Date Activity User E-sign Co-sign Detail Recorded Client Recorded Date Recorded By Document 05/04/23 11:45 GM Desktop 05/04/23 11:46 GM 05/04/23 11:45 Wound Care Center Nurse 3 #1- R LAT FOOT -Ulcer Cleansing Not Cleansed -Foul Odor after Cleansing No -Primary Dressing Applied Aquacel Extra -Primary Dressing Covered/Secured with Dry Gauze & Roll Gauze -Aquacel Extra 1 Pain Scale: 0-10 Numeric Is Patient Pain Free? Yes Teaching: Wound Center Dressing Your Wound -Person Taught Patient -Teaching Method Discussion -Response to teaching Verbalize understanding WC - Visit Discharge Discharge Condition Stable Ambulatory Status Ambulatory Transportation Private Auto Assessment/Plan Assessment/Plan (1) Diabetic foot ulcer associated with type 2 diabetes mellitus: CODE(S): E11.621 - Type 2 diabetes mellitus with foot ulcer; L97.509 - Non-pressure chronic ulcer of other part of unspecified foot with unspecified severity QUALIFIERS: Diabetic foot ulcer location: midfoot Laterality: right Non-pressure ulcer stage: with fat layer exposed Qualified Code(s): E11.621 - Type 2 diabetes mellitus with foot ulcer; L97.412 - Non-pressure chronic ulcer of right heel and midfoot with fat layer exposed PLAN: EpiFix #9 up applied with wound veil and Steri-Strips. Patient instructed not to bathe or get it wet Follow-up in 1 week Follow-up sooner as needed (2) Decubitus ulcer of right foot, stage 2: CODE(S): L89.892 - Pressure ulcer of other site, stage 2 (3) Unspecified open wound of other part of head, initial encounter: CODE(S): S01.80XA - Unspecified open wound of other part of head, initial encounter PLAN: Left ear healed discontinue treatments
[2023-05-11 11:06] VITALS: BP 135/79; PULSE 74; RESP 16; TEMP 36.2
--- NOTE | 2023-05-11 11:44 | PCM.WC.PN ---
History of Present Illness Date of Service: 05/11/23 Chief Complaint: Follow-up on his left ear laceration from a tree branch and right lateral foot open wound from a blister that was over 1 month old. 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 He has poor hygiene habits. Had developed a blister from his shoe on the right lateral foot that is quite long about 4 cm x 1 cm wide. States it bled like everything because he is on Eliquis. Seeing bleeds stop to get the bleeding under control. Now has developed some slough and fibrous material in the center with I think over a venous vein. Patient has numbing and has no feeling in his lower leg but he does say his feet throb. He does have many comorbidities such as A-fib diabetes does have a defibrillator high cholesterol BPH Progress of Wound: Right lateral foot is measuring smaller more shallow looks better patient is done with his antibiotic therapy Subjective Subjective He is agreeable to treatment Objective Data Objective Data Area looks good measures smaller no sign of infection still gets a little bit of maceration around the edge but its not sloughy at all. Vital Signs: Vital Signs Temp Pulse Resp BP O2 Del Method 97.1 F L 74 16 135/79 H Room Air 05/11/23 11:06 05/11/23 11:06 05/11/23 11:06 05/11/23 11:06 05/11/23 11:06 Oxygen Delivery Method Room Air Lab / Micro Data Attestation: I reviewed the patient's lab results. Physical Exam Const oriented x3 General Appearance: cooperative Exam Limitations: no limitations HEENT normocephalic Head and Scalp: normal to inspection Face and Sinus: normal facial exam Nose: external nose normal General Ear: hearing grossly impaired External Ear: external ears normal Mouth: oral and palatal mucosa normal Eyes PERRL General Eye: normal appearance of both eyes Neck full ROM General: normal visual inspection Resp normal respiratory effort Effort and Inspection: able to speak in complete sentences Auscultation: clear to auscultation bilaterally Cardio regular rate and regular rhythm Palpation: normal PMI Rate: regular rate Rhythm: regular rhythm GI Auscultation: normoactive bowel sounds Palpation: soft and no hepatosplenomegaly external exam normal Back/Spine Cervical Spine: cervical ROM normal Thoracic Spine / Upper Back: normal to inspection Lumbar Spine / Lower Back: normal to inspection Extremity normal to inspection General Extremity: normal exam except as noted Skin Wounds: wounds noted Wound Narrative: Right lateral foot open wound from blister Left Pe?a superficial laceration in ear from trees branches Neuro oriented x3 Psych Appearance: grossly normal Speech: normal speech Thought Content: normal thought content Judgement: judgement good Debridement Note Debridement Note Wound debrided: Right lateral foot DFU Laterality: Right Wound Grade/Stage: Stage II Type of Debridement: Excisional debridement Anesthesia Used: 5% Lidocaine Gel Depth: Down to and including healthy tissue and in the subcutaneous layer Percentage of wound debrided: 100 Instrument Used: 5mm curette Tissue Removed: Fibrin Severity: Fat Layer Exposed Amount of bleeding with debridement: Mild Bleeding Controlled with: Compression and gauze Patient tolerated procedure: Patient tolerated procedure well Post-Debridement Measurements and Additional Note: Post-Debridement Measurements/Treatment - Nurse 1 - General Ulcer Assessment Start: 05/04/23 11:09 Freq: Status: Active Protocol: ALEJANDRO Activity Type Activity Date Activity User E-sign Co-sign Detail Recorded Client Recorded Date Recorded By Document 05/04/23 11:09 Desktop 05/04/23 11:11 RB Document 05/11/23 11:06 [facility] Desktop 05/11/23 11:11 [facility] 05/04/23 05/11/23 11:09 11:06 - Today's Visit Information Type of service Follow-up Visit Follow-up 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 ) ) Arrival Mode Ambulatory Ambulatory Transfer Assistance None None Patient Identification Verified (Name & Yes Yes ) Patient Requires Transmission-Based No No Precautions Vital Signs Temperature (97.8 F-99.1 F) 98 F 97.1 F L Temperature Source Temporal Temporal Pulse Rate (60-100) 78 74 Pulse Location Monitor Monitor Respiratory Rate (12-18) 18 16 Respiratory rate source Observation Observation Oxygen Delivery Method Room Air Blood Pressure (90/60-120/80) 121/67 H 135/79 H Blood Pressure Mean (mm Hg) 85 97 Source Monitor Monitor Position Semi-Fowlers Sitting Blood Pressure Location Left Arm Left Arm History Since Last Visit- (Skip if this is Patient's initial visit) Have you changed medications since your No No last visit? Any new allergies or adverse reactions No No Had a fall/change in ADL's that may No No increase risk of falls Signs or symptoms of abuse and/or No No neglect since last visit Have you been in the hospital since your No No last visit? Has dressing in place as prescribed Yes Yes Has compression in place as prescribed No N/A Has offloadiing in place as prescribed No N/A Experienced any changes in pain level or No No management Left Footwear Regular Shoe Regular Shoe Right Footwear Regular Shoe Regular Shoe Pain Scale: 0-10 Numeric Is Patient Pain Free? Yes Yes WC - Nurse 1 - General Ulcer Measurement Start: 05/04/23 11:09 Freq: Status: Active Protocol: Activity Type Activity Date Activity User E-sign Co-sign Detail Recorded Client Recorded Date Recorded By Document 05/04/23 11:09 RB Desktop 05/04/23 11:11 RB Document 05/11/23 11:06 BM Desktop 05/11/23 11:11 BMF 05/04/23 05/11/23 11:09 11:06 Wound Center Nurse 1 #1- R LAT FOOT -Combined with other wound No No -Current Size (cm) - Length 2.2 2 -Current Size (cm) - Width 0.7 0.5 -Current Size (cm) - Depth 0.1 0.2 -Total Square Cm 1.54 1.0 -Photo Taken Yes No -Epithelialization Small 1-33% -Tunneling No No -Undermining/Tunneling No No -Circular Undermining No No -Exudate Amt Medium Medium -Exudate Type Serosanguineous Serosanguineous -Wound Margin Distinct, Distinct, Outline Outline Attached Attached -Granulation Amt Medium (34-66%) Large (67-100%) -Granulation Quality [place] Red -Slough/Fibrin Yes Yes -Necrosis Amt Medium (34-66%) Small (1-33%) -Necrotic Tissue Type Adherent Slough Adherent Slough -Structure Exposed N/A -Texture (Laya-wound Skin Appearance) Assessed Assessed, Scarring -Moisture (Laya-wound Skin Appearance) Assessed, Assessed, Maceration Maceration -Color (Laya-wound Skin Appearance) Assessed Assessed -Temperature (Laya-wound Skin No Abnormality No Abnormality Appearance) (Pt Warm) (Pt Warm) -Tenderness on Palpation (Laya-wound No No Skin Appearance) -Ulcer Cleansing Wound Cleanser Soap and Water -Foul Odor after Cleansing No No -Anesthetic Used 5% Lidocaine 5% Lidocaine Gel Gel WC - Nurse 2 - General Ulcer CM Notes Start: 05/04/23 11:09 Freq: Status: Active Protocol: Activity Type Activity Date Activity User E-sign Co-sign Detail Recorded Client Recorded Date Recorded By Document 05/04/23 11:34 MW Desktop 05/04/23 11:39 MW Document 05/11/23 11:35 MW Desktop 05/11/23 11:38 MW 05/04/23 05/11/23 11:34 11:35 Wound Center Nurse 2 #1- R LAT FOOT -Time 11:35 11:35 -Correct Patient Yes Yes -Correct Side, Site, Position Yes Yes -Correct Procedure Yes Yes -Procedure Performed Yes Yes -Type of Procedure Debridement Debridement -Clinical Debridement Subcutaneous Subcutaneous -Tissue Removed Subcutaneous Subcutaneous -Post Debridement (cm) - Length 2.0 1.5 -Post Debridement (cm) - Width 0.5 0.5 -Post Debridement (cm) - Depth 0.2 0.2 -Total Square (Post) (cm) 1.00 0.75 -Area of Debridement (cm) - Length 2.0 1.5 -Area of Debridement (cm) - Width 0.5 0.5 -Total Square (Area) (cm) 1.00 0.75 -Tunneling No No -Undermining/Tunneling No No -Circular Undermining No No -Wound/Ulcer Outcome Not Healed Not Healed -Ulcer Cleansing Rinsed/ Rinsed/ Irrigated with Irrigated with Saline Saline -Foul Odor after Cleansing No No -Bioengineered Tissue Yes Yes -Type of Bioengineered Tissue Epifix 18mm Epifix 18mm Disc Disc -Expiration Date 01/30/28 01/30/28 -Product Lot Number [id number] -Percent Used 100 100 -Lot number of Saline Used [id number] -Bleeding Controlled with Pressure Pressure -Treatment Response Procedure Procedure Tolerated Well Tolerated Well -Offloading No No -Debridement - Subq, 1st 20sq cm No No -Apply Skin Sub - 1st 25 sq cm - Legs 1 -Apply Skin Sub - 1st 25 sq cm - Feet 1 -Epifix 18mm Disc 3 3 Pain Scale: 0-10 Numeric Is Patient Pain Free? Yes Yes - Nurse 3 - General Ulcer D/C NN Start: 05/04/23 11:09 Freq: Status: Active Protocol: Activity Type Activity Date Activity User E-sign Co-sign Detail Recorded Client Recorded Date Recorded By Document 05/04/23 11:45 Desktop 05/04/23 11:46 05/04/23 11:45 Wound Care Center Nurse 3 #1- R LAT FOOT -Ulcer Cleansing Not Cleansed -Foul Odor after Cleansing No -Primary Dressing Applied Aquacel Extra -Primary Dressing Covered/Secured with Dry Gauze & Roll Gauze -Aquacel Extra 1 Pain Scale: 0-10 Numeric Is Patient Pain Free? Yes Teaching: Wound Center Dressing Your Wound -Person Taught Patient -Teaching Method Discussion -Response to teaching Verbalize understanding WC - Visit Discharge Discharge Condition Stable Ambulatory Status Ambulatory Transportation Private Auto Assessment/Plan Assessment/Plan (1) Diabetic foot ulcer associated with type 2 diabetes mellitus: CODE(S): E11.621 - Type 2 diabetes mellitus with foot ulcer; L97.509 - Non-pressure chronic ulcer of other part of unspecified foot with unspecified severity QUALIFIERS: Diabetic foot ulcer location: midfoot Laterality: right Non-pressure ulcer stage: with fat layer exposed Qualified Code(s): E11.621 - Type 2 diabetes mellitus with foot ulcer; L97.412 - Non-pressure chronic ulcer of right heel and midfoot with fat layer exposed PLAN: EpiFix #10 up applied with wound veil and Steri-Strips. Patient instructed not to bathe or get it wet Follow-up in 1 week Follow-up sooner as needed (2) Decubitus ulcer of right foot, stage 2: CODE(S): L89.892 - Pressure ulcer of other site, stage 2 (3) Unspecified open wound of other part of head, initial encounter: CODE(S): S01.80XA - Unspecified open wound of other part of head, initial encounter PLAN: Left ear healed discontinue treatments
[2023-05-18 11:03] VITALS: BP 126/76; PULSE 84; TEMP 36.4
--- NOTE | 2023-05-18 11:35 | PCM.WC.PN ---
History of Present Illness Date of Service: 05/18/23 Chief Complaint: Follow-up on his left ear laceration from a tree branch and right lateral foot open wound from a blister that was over 1 month old. 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 He has poor hygiene habits. Had developed a blister from his shoe on the right lateral foot that is quite long about 4 cm x 1 cm wide. States it bled like everything because he is on Eliquis. Seeing bleeds stop to get the bleeding under control. Now has developed some slough and fibrous material in the center with I think over a venous vein. Patient has numbing and has no feeling in his lower leg but he does say his feet throb. He does have many comorbidities such as A-fib diabetes does have a defibrillator high cholesterol BPH Progress of Wound: Right lateral foot is measuring smaller more shallow looks better patient is done with his antibiotic therapy and EpiFix is he had his last one this last week. Looks good there is just a small area that needs to be closed we will start with Promogran with daily dressings again. Subjective Subjective Patient is happy with outcomes follow-up in 2 weeks Objective Data Objective Data No sign of infection looks good healing well hopefully he will be closed in 2 weeks Vital Signs: Vital Signs Temp Pulse Resp BP O2 Del Method 97.6 F L 84 16 126/76 H Room Air 05/18/23 11:03 05/18/23 11:03 05/11/23 11:06 05/18/23 11:03 05/18/23 11:03 Oxygen Delivery Method Room Air Lab / Micro Data Attestation: I reviewed the patient's lab results. Physical Exam Const oriented x3 General Appearance: cooperative Exam Limitations: no limitations HEENT normocephalic Head and Scalp: normal to inspection Face and Sinus: normal facial exam Nose: external nose normal General Ear: hearing grossly impaired External Ear: external ears normal Mouth: oral and palatal mucosa normal Eyes PERRL General Eye: normal appearance of both eyes Neck full ROM General: normal visual inspection Resp normal respiratory effort Effort and Inspection: able to speak in complete sentences Auscultation: clear to auscultation bilaterally Cardio regular rate and regular rhythm Palpation: normal PMI Rate: regular rate Rhythm: regular rhythm GI Auscultation: normoactive bowel sounds Palpation: soft and no hepatosplenomegaly external exam normal Back/Spine Cervical Spine: cervical ROM normal Thoracic Spine / Upper Back: normal to inspection Lumbar Spine / Lower Back: normal to inspection Extremity normal to inspection General Extremity: normal exam except as noted Skin Wounds: wounds noted Wound Narrative: Right lateral foot open wound from blister Left Pe?a superficial laceration in ear from trees branches Neuro oriented x3 Psych Appearance: grossly normal Speech: normal speech Thought Content: normal thought content Judgement: judgement good Debridement Note Debridement Note Wound debrided: Right lateral foot decubitus ulcer Wound Grade/Stage: Stage II Type of Debridement: Excisional debridement Anesthesia Used: 5% Lidocaine Gel Depth: in the subcutaneous layer Percentage of wound debrided: 100 Instrument Used: 3mm curette Tissue Removed: Fibrin Amount of bleeding with debridement: Mild Bleeding Controlled with: Compression and gauze Patient tolerated procedure: Patient tolerated procedure well Post-Debridement Measurements and Additional Note: Post-Debridement Measurements/Treatment - Nurse 1 - General Ulcer Assessment Start: 05/04/23 11:09 Freq: Status: Active Protocol: ALEJANDRO Activity Type Activity Date Activity User E-sign Co-sign Detail Recorded Client Recorded Date Recorded By Document 05/04/23 11:09 Desktop 05/04/23 11:11 RB Document 05/11/23 11:06 [facility] Desktop 05/11/23 11:11 [facility] Document 05/18/23 11:03 Desktop 05/18/23 11:07 05/04/23 05/11/23 05/18/23 11:09 11:06 11:03 - Today's Visit Information Type of service Follow-up Visit Follow-up Visit Follow-up Visit (Physician/DIRECTIONAL SURVEY DRAFTER (Physician/DIRECTIONAL SURVEY DRAFTER (Physician/DIRECTIONAL SURVEY DRAFTER ) ) ) Arrival Mode Ambulatory Ambulatory Ambulatory Transfer Assistance None None None Patient Identification Verified (Name & Yes Yes ) Patient Requires Transmission-Based No No Precautions Vital Signs Temperature (97.8 F-99.1 F) 98 F 97.1 F L 97.6 F L Temperature Source Temporal Temporal Temporal Pulse Rate (60-100) 78 74 84 Pulse Location Monitor Monitor Monitor Respiratory Rate (12-18) 18 16 Respiratory rate source Observation Observation Oxygen Delivery Method Room Air Room Air Blood Pressure (90/60-120/80) 121/67 H 135/79 H 126/76 H Blood Pressure Mean (mm Hg) 85 97 92 Source Monitor Monitor Monitor Position Semi-Fowlers Sitting Sitting Blood Pressure Location Left Arm Left Arm Right Arm History Since Last Visit- (Skip if this is Patient's initial visit) Have you changed medications since your No No No last visit? Any new allergies or adverse reactions No No No Had a fall/change in ADL's that may No No No increase risk of falls Signs or symptoms of abuse and/or No No No neglect since last visit Have you been in the hospital since your No No No last visit? Has dressing in place as prescribed Yes Yes Yes Has compression in place as prescribed No N/A N/A Has offloadiing in place as prescribed No N/A N/A Experienced any changes in pain level or No No No management Left Footwear Regular Shoe Regular Shoe Right Footwear Regular Shoe Regular Shoe Pain Scale: 0-10 Numeric Is Patient Pain Free? Yes Yes Yes WC - Nurse 1 - General Ulcer Measurement Start: 05/04/23 11:09 Freq: Status: Active Protocol: Activity Type Activity Date Activity User E-sign Co-sign Detail Recorded Client Recorded Date Recorded By Document 05/04/23 11:09 RB Desktop 05/04/23 11:11 RB Document 05/11/23 11:06 [facility] Desktop 05/11/23 11:11 [facility] Document 05/18/23 11:03 Desktop 05/18/23 11:07 05/04/23 05/11/23 05/18/23 11:09 11:06 11:03 Wound Center Nurse 1 #1- R LAT FOOT -Combined with other wound No No No -Current Size (cm) - Length 2.2 2 1.1 -Current Size (cm) - Width 0.7 0.5 0.5 -Current Size (cm) - Depth 0.1 0.2 0.1 -Total Square Cm 1.54 1.0 0.55 -Photo Taken Yes No No -Epithelialization Small 1-33% Large 67-100% -Tunneling No No No -Undermining/Tunneling No No No -Circular Undermining No No No -Exudate Amt Medium Medium Medium -Exudate Type Serosanguineous Serosanguineous Serous -Wound Margin Distinct, Distinct, Distinct, Outline Outline Outline Attached Attached Attached -Granulation Amt Medium (34-66%) Large (67-100%) Medium (34-66%) -Granulation Quality [place] -Slough/Fibrin Yes Yes -Necrosis Amt Medium (34-66%) Small (1-33%) -Necrotic Tissue Type Adherent Slough Adherent Slough -Structure Exposed N/A -Texture (Laya-wound Skin Appearance) Assessed Assessed, Assessed, Scarring Scarring -Moisture (Laya-wound Skin Appearance) Assessed, Assessed, Assessed Maceration Maceration -Color (Laya-wound Skin Appearance) Assessed Assessed Assessed -Temperature (Laya-wound Skin No Abnormality No Abnormality No Abnormality Appearance) (Pt Warm) (Pt Warm) (Pt Warm) -Tenderness on Palpation (Laya-wound No No No Skin Appearance) -Ulcer Cleansing Wound Cleanser Soap and Water Soap and Water -Foul Odor after Cleansing No No No -Anesthetic Used 5% Lidocaine 5% Lidocaine 5% Lidocaine Gel Gel Gel WC - Nurse 2 - General Ulcer CM Notes Start: 05/04/23 11:09 Freq: Status: Active Protocol: Activity Type Activity Date Activity User E-sign Co-sign Detail Recorded Client Recorded Date Recorded By Document 05/04/23 11:34 MW Desktop 05/04/23 11:39 MW Document 05/11/23 11:35 MW Desktop 05/11/23 11:38 MW Document 05/18/23 11:10 MW Desktop 05/18/23 11:12 MW 05/04/23 05/11/23 05/18/23 11:34 11:35 11:10 Wound Center Nurse 2 #1- R LAT FOOT -Time 11:35 11:35 11:10 -Correct Patient Yes Yes Yes -Correct Side, Site, Position Yes Yes Yes -Correct Procedure Yes Yes Yes -Procedure Performed Yes Yes Yes -Type of Procedure Debridement Debridement Debridement -Clinical Debridement Subcutaneous Subcutaneous Subcutaneous -Tissue Removed Subcutaneous Subcutaneous Subcutaneous -Post Debridement (cm) - Length 2.0 1.5 1.9 -Post Debridement (cm) - Width 0.5 0.5 0.4 -Post Debridement (cm) - Depth 0.2 0.2 0.1 -Total Square (Post) (cm) 1.00 0.75 0.76 -Area of Debridement (cm) - Length 2.0 1.5 1.9 -Area of Debridement (cm) - Width 0.5 0.5 0.4 -Total Square (Area) (cm) 1.00 0.75 0.76 -Tunneling No No No -Undermining/Tunneling No No No -Circular Undermining No No No -Wound/Ulcer Outcome Not Healed Not Healed Not Healed -Ulcer Cleansing Rinsed/ Rinsed/ Rinsed/ Irrigated with Irrigated with Irrigated with Saline Saline Saline -Foul Odor after Cleansing No No No -Bioengineered Tissue Yes Yes No -Type of Bioengineered Tissue Epifix 18mm Epifix 18mm Disc Disc -Expiration Date 01/30/28 01/30/28 -Product Lot Number [id number] -Percent Used 100 100 -Lot number of Saline Used [id number] -Bleeding Controlled with Pressure Pressure Pressure -Treatment Response Procedure Procedure Procedure Tolerated Well Tolerated Well Tolerated Well -Offloading No No No -Debridement - Subq, 1st 20sq cm No No Yes -Apply Skin Sub - 1st 25 sq cm - Legs 1 -Apply Skin Sub - 1st 25 sq cm - Feet 1 -Epifix 18mm Disc 3 3 Pain Scale: 0-10 Numeric Is Patient Pain Free? Yes Yes Yes WC - Nurse 3 - General Ulcer D/C NN Start: 05/04/23 11:09 Freq: Status: Active Protocol: Activity Type Activity Date Activity User E-sign Co-sign Detail Recorded Client Recorded Date Recorded By Document 05/04/23 11:45 Desktop 05/04/23 11:46 Document 05/11/23 11:45 [facility] Desktop 05/11/23 11:46 [facility] Document 05/18/23 11:15 [facility] Desktop 05/18/23 11:17 [facility] 05/04/23 05/11/23 05/18/23 11:45 11:45 11:15 Wound Care Center Nurse 3 #1- R LAT FOOT -Ulcer Cleansing Not Cleansed Rinsed/ Irrigated with Saline -Foul Odor after Cleansing No No -Primary Dressing Applied Aquacel Extra Promogran -Other Dressing EPIFIX per gm rn -Primary Dressing Covered/Secured with Dry Gauze & Dry Gauze & Dry Gauze & Roll Gauze Roll Gauze, Roll Gauze, Secured with Secured with Tape Tape -Other Covering AQUACEL EXTRA -Aquacel Extra 1 -Promogran 2 Treatment Response Procedure Procedure Tolerated Well Tolerated Well Pain Scale: 0-10 Numeric Is Patient Pain Free? Yes Yes Yes Teaching: Wound Center Dressing Your Wound -Person Taught Patient -Teaching Method Discussion -Response to teaching Verbalize understanding WC - Visit Discharge Discharge Condition Stable Stable Stable Ambulatory Status Ambulatory Ambulatory Ambulatory Transportation Private Auto Private Auto Private Auto Assessment/Plan Assessment/Plan (1) Diabetic foot ulcer associated with type 2 diabetes mellitus: CODE(S): E11.621 - Type 2 diabetes mellitus with foot ulcer; L97.509 - Non-pressure chronic ulcer of other part of unspecified foot with unspecified severity QUALIFIERS: Diabetic foot ulcer location: midfoot Laterality: right Non-pressure ulcer stage: with fat layer exposed Qualified Code(s): E11.621 - Type 2 diabetes mellitus with foot ulcer; L97.412 - Non-pressure chronic ulcer of right heel and midfoot with fat layer exposed PLAN: Wash foot with antibacterial soap and water apply Promogran to wound base moistened with Adaptic over top and a dry dressing and Le. Every day Follow-up in 2 weeks (2) Decubitus ulcer of right foot, stage 2: CODE(S): L89.892 - Pressure ulcer of other site, stage 2 (3) Unspecified open wound of other part of head, initial encounter: CODE(S): S01.80XA - Unspecified open wound of other part of head, initial encounter PLAN: Left ear healed discontinue treatments
== END 2023-05-31 23:59 | disposition home or self-care (01) ==
LOC: WC 11:00
PROVIDERS: PCP Family Medicine; Referring Provider Nurse Practitioner; Visit Provider Nurse Practitioner
DX: E11.621 Type 2 diabetes mellitus with foot ulcer (principal); L89.892 Pressure ulcer of other site, stage 2; L97.412 Non-pressure chronic ulcer of right heel and midfoot with fat layer exposed; S01.80XA Unspecified open wound of other part of head, initial encounter
CPT/HCPCS: 11042; 15271; 15275; Q4186

== ENCOUNTER 2023-06-01 10:49 | Outpatient (RCR) | payer MEDICARE, BC, SELFPAY ==
[2023-06-01 00:15] VITALS: BP 126/76; PULSE 84; RESP 16; TEMP 36.4
[2023-06-01 11:14] VITALS: BP 119/72; PULSE 81; TEMP 36.6
--- NOTE | 2023-06-01 11:40 | PN.PCM_ITS ---
History of Present Illness Date of Service: 06/01/23 Chief Complaint: Follow-up on his left ear laceration from a tree branch and right lateral foot open wound from a blister that was over 1 month old. 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 He has poor hygiene habits. Had developed a blister from his shoe on the right lateral foot that is quite long about 4 cm x 1 cm wide. States it bled like everything because he is on Eliquis. Seeing bleeds stop to get the bleeding under control. Now has developed some slough and fibrous material in the center with I think over a venous vein. Patient has numbing and has no feeling in his lower leg but he does say his feet throb. He does have many comorbidities such as A-fib diabetes does have a defibrillator high cholesterol BPH Progress of Wound: Today the wound is closed skin is still sensitive and some areas may reopen suggested continue care for another week then can stop. Subjective Subjective Patient happy with care Objective Data Objective Data Patient will be discharged from the wound center follow-up as needed Vital Signs: Vital Signs Temp Pulse Resp BP O2 Del Method 97.8 F 81 16 119/72 Room Air 06/01/23 11:14 06/01/23 11:14 06/01/23 00:15 06/01/23 11:14 06/01/23 11:14 Oxygen Delivery Method Room Air Lab / Micro Data Attestation: I reviewed the patient's lab results. Physical Exam Const oriented x3 General Appearance: cooperative Exam Limitations: no limitations HEENT normocephalic Head and Scalp: normal to inspection Face and Sinus: normal facial exam Nose: external nose normal General Ear: hearing grossly impaired External Ear: external ears normal Mouth: oral and palatal mucosa normal Eyes PERRL General Eye: normal appearance of both eyes Neck full ROM General: normal visual inspection Resp normal respiratory effort Effort and Inspection: able to speak in complete sentences Auscultation: clear to auscultation bilaterally Cardio regular rate and regular rhythm Palpation: normal PMI Rate: regular rate Rhythm: regular rhythm GI Auscultation: normoactive bowel sounds Palpation: soft and no hepatosplenomegaly external exam normal Back/Spine Cervical Spine: cervical ROM normal Thoracic Spine / Upper Back: normal to inspection Lumbar Spine / Lower Back: normal to inspection Extremity normal to inspection General Extremity: normal exam except as noted Skin Wounds: wounds noted Wound Narrative: Right lateral foot open wound from blister Left Pe?a superficial laceration in ear from trees branches Neuro oriented x3 Psych Appearance: grossly normal Speech: normal speech Thought Content: normal thought content Judgement: judgement good Debridement Note Debridement Note No debridement was completed: No debridement was completed today Post-Debridement Measurements and Additional Note: Post-Debridement Measurements/Treatment - Nurse 1 - General Ulcer Assessment Start: 06/01/23 11:13 Freq: Status: Active Protocol: ALEJANDRO Activity Type Activity Date Activity User E-sign Co-sign Detail Recorded Client Recorded Date Recorded By Document 06/01/23 11:14 [employer] 06/01/23 11:15 06/01/23 11:14 - Today's Visit Information Type of service Follow-up Visit (Physician/PESTICIDE USE MEDICAL COORDINATOR ) Arrival Mode Ambulatory Transfer Assistance None Patient Identification Verified (Name & Yes ) Patient Requires Transmission-Based No Precautions Vital Signs Temperature (97.8 F-99.1 F) 97.8 F Temperature Source Temporal Pulse Rate (60-100) 81 Pulse Location Monitor Oxygen Delivery Method Room Air Blood Pressure (90/60-120/80) 119/72 Blood Pressure Mean (mm Hg) 87 Source Monitor Position Sitting Blood Pressure Location Left Arm History Since Last Visit- (Skip if this is Patient's initial visit) Have you changed medications since your No last visit? Any new allergies or adverse reactions No Had a fall/change in ADL's that may No increase risk of falls Signs or symptoms of abuse and/or No neglect since last visit Have you been in the hospital since your No last visit? Has dressing in place as prescribed Yes Has compression in place as prescribed No Has offloadiing in place as prescribed No Experienced any changes in pain level or No management Pain Scale: 0-10 Numeric Is Patient Pain Free? Yes - Nurse 1 - General Ulcer Measurement Start: 06/01/23 11:13 Freq: Status: Active Protocol: Activity Type Activity Date Activity User E-sign Co-sign Detail Recorded Client Recorded Date Recorded By Document 06/01/23 11:14 [employer] 06/01/23 11:15 06/01/23 11:14 Wound Center Nurse 1 #1- R LAT FOOT -Combined with other wound No -Current Size (cm) - Length 0.1 -Current Size (cm) - Width 0.1 -Current Size (cm) - Depth 0.1 -Total Square Cm 0.01 -Epithelialization Large 67-100% -Tunneling No -Undermining/Tunneling No -Circular Undermining No -Exudate Amt None Present -Slough/Fibrin No -Structure Exposed N/A -Texture (Laya-wound Skin Appearance) Assessed -Moisture (Laya-wound Skin Appearance) Assessed -Color (Laya-wound Skin Appearance) Not Assessed WC - Nurse 2 - General Ulcer CM Notes Start: 06/01/23 11:13 Freq: Status: Active Protocol: Activity Type Activity Date Activity User E-sign Co-sign Detail Recorded Client Recorded Date Recorded By Document 06/01/23 11:29 Desktop 06/01/23 11:31 06/01/23 11:29 Wound Center Nurse 2 -Time 11:29 -Correct Patient Yes -Correct Side, Site, Position Yes -Correct Procedure Yes -Procedure Performed No -Post Debridement (cm) - Length 0 -Post Debridement (cm) - Width 0 -Total Square (Post) (cm) 0 -Wound/Ulcer Outcome Healed- Epithelialized Pain Scale: 0-10 Numeric Is Patient Pain Free? Yes - Nurse 3 - General Ulcer D/C NN Start: 06/01/23 11:13 Freq: Status: Active Protocol: Activity Type Activity Date Activity User E-sign Co-sign Detail Recorded Client Recorded Date Recorded By Document 06/01/23 11:29 Desktop 06/01/23 11:31 06/01/23 11:29 Wound Care Center Nurse 3 #1- R LAT FOOT -Ulcer Cleansing Not Cleansed -Foul Odor after Cleansing No -Primary Dressing Applied NonAdherent Contact Layer, Promogran -Primary Dressing Covered/Secured with Dry Gauze & Roll Gauze, Secured with Tape -Promogran 1 Pain Scale: 0-10 Numeric Is Patient Pain Free? Yes Teaching: Wound Center Dressing Your Wound -Person Taught Patient -Teaching Method Discussion, Demonstration -Response to teaching Verbalize understanding WC - Visit Discharge Discharge Condition Stable Ambulatory Status Ambulatory Transportation Private Auto Medication Reconcilliation completed & Yes provided to patient/care provider Clinical Summary of Care Provided Yes Assessment/Plan Assessment/Plan (1) Diabetic foot ulcer associated with type 2 diabetes mellitus: CODE(S): E11.621 - Type 2 diabetes mellitus with foot ulcer; L97.509 - Non-pressure chronic ulcer of other part of unspecified foot with unspecified severity QUALIFIERS: Diabetic foot ulcer location: midfoot Laterality: right Non-pressure ulcer stage: with fat layer exposed Qualified Code(s): E11.621 - Type 2 diabetes mellitus with foot ulcer; L97.412 - Non-pressure chronic ulcer of right heel and midfoot with fat layer exposed PLAN: Resolved follow-up as needed Discharge from the wound center (2) Decubitus ulcer of right foot, stage 2: CODE(S): L89.892 - Pressure ulcer of other site, stage 2 (3) Unspecified open wound of other part of head, initial encounter: CODE(S): S01.80XA - Unspecified open wound of other part of head, initial encounter PLAN: resolved follow-up as needed
== END 2023-06-01 16:07 | disposition home or self-care (01) ==
LOC: WC 10:49
PROVIDERS: PCP Family Medicine; Referring Provider Nurse Practitioner; Visit Provider Nurse Practitioner
DX: E11.621 Type 2 diabetes mellitus with foot ulcer (principal); L89.892 Pressure ulcer of other site, stage 2; L97.412 Non-pressure chronic ulcer of right heel and midfoot with fat layer exposed; S01.80XA Unspecified open wound of other part of head, initial encounter
CPT/HCPCS: 99213; G0463

== ENCOUNTER → 2023-06-30 | Outpatient (CLI) | payer MEDICARE, BC, SELFPAY ==
[2023-06-30 11:23] LABS: Bacteria 0 SEEN /hpf (None Seen); Mucous, Urine 0 SEEN /hpf (<or=2+)
[2023-06-30 15:25] LABS: Absolute Lymphocyte Count 1.13 X10^3/uL (0.83-4.51); Absolute Neutrophil Count 3.9 X10^3/uL (2.0-7.7); Basophil# 0.03 X10^3/uL; Basophil% 0.5 % (0-1); Eosinophils% 1.8 % (0-5); Hematocrit 43.3 % (40-54); Hemoglobin 13.5 g/dL (13.0-16.5); Lymphocyte # 1.13 X10^3/ul (0.83-4.51); Lymphocyte % 19.9 % (19-41); Mean Corp Hgb Conc 31.2 g/dL (32-36); Mean Corpuscular Hgb 30.1 pg (27.0-32.0); Mean Corpuscular Volume 96.4 fL (80-94); Mean Platelet Vol. 9.8 fl (6.2-12.0); Monocyte# 0.54 X10^3/uL; Monocyte% 9.5 % (0-10); NRBC Flagged by Analyzer 0 % (0-5); Neutrophil # 3.88 X10^3/uL (2.7-7.7); Neutrophil % 68.1 % (47-70); Platelet Count 201 K/mm3 (150-450); RBC Distribution Width CV 15.3 % (11.6-14.6); RBC Distribution Width SD 54.6 fl (35.1-43.9); Red Blood Count 4.49 M/mm3 (4.6-6.2); White Blood Count 5.7 K/mm3 (4.4-11.0)
[2023-06-30 15:31] LABS: Color, Urine Yellow (Yellow); Glucose, Dipstick Normal (Normal); Ketone-Dipstick Negative (Negative); Leukocyte Esterase-Dipstick Negative /ul (Negative); Nitrite-Dipstick Negative (Negative); Occult Blood-Urine 25 /ul (Negative); Protein-Dipstick 30 mg/dl (Negative); Specific Gravity, Urine 1.015 (1.002-1.030); Urine Bilirubin Dipstick Negative (Negative); Urine Clarity Clear (Clear); Urine Urobilinogen Normal (Normal)
[2023-06-30 15:39] LABS: Red Blood Cells-Urine 0-5 SEEN /hpf (0-5); Squamous Epithelial Cells - UA 0-5 SEEN /hpf (0-5); Vitamin D,25 Hydroxy 52.8 ng/mL; White Blood Cells 0-5 SEEN /hpf (0-5)
[2023-06-30 15:40] LABS: ALB/GLOB Ratio 0.9 RATIO (0.9-2.4); AST(SGOT) 29 U/L (15-37); Alanine Aminotransfer ALT/SGPT 33 U/L (16-61); Albumin, Serum 3.7 g/dL (3.2-5.0); Alkaline Phosphatase 131 U/L (45-117); Anion Gap 6 (5-15); BUN 20 mg/dL (7-18); BUN/Creat Ratio 16.1 RATIO (10-20); Chloride 105 mmol/L (98-107); Cholesterol 106 mg/dL (200); Creatinine, Serum 1.24 mg/dL (0.70-1.30); EST Glomerular Filtration Rate 59 mL/min (>60); Est Glom Filt Rate - Afr Amer 72 mL/min (>60); Globulin 3.9 g/dL (2.2-4.2); Glucose 90 mg/dL (74-106); High Density Lipoprotein 33 mg/dL; Phosphorus 3.7 mg/dL (2.5-4.9); Potassium 4.2 mmol/L (3.5-5.1); Protein, Total 7.6 g/dL (6.4-8.2); Sodium Level 141 mmol/L (136-145); Triglycerides 101 mg/dL; Very Low Density Lipoprotein 20 mg/dL (5-40)
[2023-06-30 15:41] LABS: Hemoglobin A1c 9.1 % (3.8-5.6)
[2023-06-30 15:57] LABS: Protein, Urine (Random) 87.7 mg/dL (<11.9); Protein:Creat Ratio 939 mg/g CRE (0-200)
[2023-07-01 08:00] LABS: PTHIN 35.6 pg/mL (18.4-80.1)
== END | disposition home or self-care (01) ==
LOC: MTLAB 11:17
PROVIDERS: PCP Family Medicine; Referring Provider Family Medicine; Visit Provider Family Medicine
DX: E55.9 Vitamin D deficiency, unspecified (principal); E11.65 Type 2 diabetes mellitus with hyperglycemia; E11.22 Type 2 diabetes mellitus with diabetic chronic kidney disease; N18.30 Chronic kidney disease, stage 3 unspecified
CPT/HCPCS: 36415; 80053; 80061; 81001; 82306; 82570; 83036; 83970; 84100; 84156; 85025

== ENCOUNTER → 2023-10-18 | Outpatient (CLI) | payer MEDICARE, BC, SELFPAY ==
[2023-10-18 15:21] LABS: Bacteria 0 SEEN /hpf (None Seen); Mucous, Urine 0 SEEN /hpf (<or=2+); Squamous Epithelial Cells - UA 0 SEEN /hpf (0-5); White Blood Cells 0 SEEN /hpf (0-5)
[2023-10-18 17:51] LABS: Color, Urine Yellow (Yellow); Glucose, Dipstick 100 mg/dl (Normal); Ketone-Dipstick Negative (Negative); Leukocyte Esterase-Dipstick Negative /ul (Negative); Nitrite-Dipstick Negative (Negative); Occult Blood-Urine 10 /ul (Negative); Protein-Dipstick 30 mg/dl (Negative); Urine Bilirubin Dipstick Negative (Negative); Urine Clarity Clear (Clear); Urine Urobilinogen Normal (Normal); Urine pH 6.5 (5.0 - 8.0)
[2023-10-18 17:58] LABS: Absolute Lymphocyte Count 1.12 X10^3/uL (0.83-4.51); Absolute Neutrophil Count 4.2 X10^3/uL (2.0-7.7); Basophil# 0.05 X10^3/uL; Basophil% 0.8 % (0-1); Eosinophil# 0.16 X10^3/uL; Eosinophils% 2.6 % (0-5); Lymphocyte # 1.12 X10^3/ul (0.83-4.51); Lymphocyte % 18.2 % (19-41); Mean Corp Hgb Conc 32.4 g/dL (32-36); Mean Corpuscular Hgb 30.9 pg (27.0-32.0); Mean Corpuscular Volume 95.4 fL (80-94); Monocyte# 0.61 X10^3/uL; Monocyte% 9.9 % (0-10); NRBC Flagged by Analyzer 0 % (0-5); Neutrophil % 68.3 % (47-70); Platelet Count 197 K/mm3 (150-450); RBC Distribution Width CV 13.8 % (11.6-14.6); RBC Distribution Width SD 48.6 fl (35.1-43.9); Red Blood Count 3.88 M/mm3 (4.6-6.2); White Blood Count 6.2 K/mm3 (4.4-11.0)
[2023-10-18 18:11] LABS: Red Blood Cells-Urine 0-5 SEEN /hpf (0-5)
[2023-10-18 18:21] LABS: PTHIN 28.2 pg/mL (18.4-80.1)
[2023-10-18 18:22] LABS: Vitamin D,25 Hydroxy 59.9 ng/mL
[2023-10-18 18:29] LABS: Microalbumin:Creatinine Ratio 294.8 mg/g CRE (<30 mg/g CRE)
[2023-10-18 18:35] LABS: Hemoglobin A1c 9.7 % (3.8-5.6)
[2023-10-18 18:38] LABS: AST(SGOT) 23 U/L (15-37); Alanine Aminotransfer ALT/SGPT 34 U/L (16-61); Albumin, Serum 3.3 g/dL (3.2-5.0); Alkaline Phosphatase 136 U/L (45-117); Anion Gap 6 (5-15); BUN 21 mg/dL (7-18); BUN/Creat Ratio 17.6 RATIO (10-20); Calcium,Total 8.9 mg/dL (8.5-10.1); Chloride 105 mmol/L (98-107); Cholesterol 77 mg/dL (200); Creatinine, Serum 1.19 mg/dL (0.70-1.30); EST Glomerular Filtration Rate 62 mL/min (>60); Est Glom Filt Rate - Afr Amer 75 mL/min (>60); Globulin 3.4 g/dL (2.2-4.2); Glucose 110 mg/dL (74-106); High Density Lipoprotein 26 mg/dL; Magnesium 2.4 mg/dL (1.6-2.6); Phosphorus 3.6 mg/dL (2.5-4.9); Potassium 4.1 mmol/L (3.5-5.1); Protein, Total 6.7 g/dL (6.4-8.2); Sodium Level 139 mmol/L (136-145); Triglycerides 72 mg/dL; Very Low Density Lipoprotein 14 mg/dL (5-40)
== END | disposition home or self-care (01) ==
LOC: MFPLAB 15:18
PROVIDERS: PCP Family Medicine; Visit Provider Family Medicine
DX: E11.59 Type 2 diabetes mellitus with other circulatory complications (principal); E11.22 Type 2 diabetes mellitus with diabetic chronic kidney disease; I48.0 Paroxysmal atrial fibrillation; E55.9 Vitamin D deficiency, unspecified
CPT/HCPCS: 36415; 80053; 80061; 81001; 82043; 82306; 82570; 83036; 83735; 83970; 84100; 85025

== ENCOUNTER → 2023-10-28 | Outpatient (CLI) | payer MEDICARE, BC, SELFPAY ==
--- NOTE | 2023-10-28 13:46 | CDU_ITS ---
Reason For Study: Carotid bruit Rt. Velocities/BP Lt. Velocities/BP Prox CCA 54.1/14.5 cm/sec. Prox CCA 74.4/15.1 cm/sec. Mid CCA 60.7/15.4 cm/sec. Mid CCA 52.6/12.5 cm/sec. Dist CCA 53.2/14.5 cm/sec. Dist CCA 52.6/14.2 cm/sec. Prox ICA 59.8/20.1 cm/sec. Prox ICA 57/22 cm/sec. Mid ICA 64.5/25.8 cm/sec. Mid ICA 61.5/18.8 cm/sec. Dist ICA 57/20.1 cm/sec. Dist ICA 49.8/17.9 cm/sec. Prox ECA 73/8.8 cm/sec. Prox ECA 80.6/8.8 cm/sec. Rt. Vert. 13.8 cm/sec. Lt. Vert. 47.6/20.1 cm/sec. Right Extracranial There is heterogeneous, irregular atherosclerotic plaque noted in the right common carotid artery. There is heterogeneous, irregular atherosclerotic plaque noted in the right internal carotid artery. There is heterogeneous, irregular atherosclerotic plaque noted in the right external carotid artery. Antegrade flow is noted in the right vertebral artery. Left Extracranial There is homogeneous, smooth atherosclerotic plaque noted in the left common carotid artery. There is heterogeneous, irregular atherosclerotic plaque noted in the left internal carotid artery. There is heterogeneous, irregular atherosclerotic plaque noted in the left external carotid artery. Antegrade flow is noted in the left vertebral artery. Procedure Carotid Duplex 31629. This is a Carotid Duplex examination using B-mode, color flow and specral Doppler. Exam performed in department. VL/Carotid Duplex Ultrasound Interpretation Summary Mild (<50%) stenosis right extracranial internal carotid. Mild (<50%) stenosis left extracranial internal carotid. Flow within the vertebral arteries is antegrade bilaterally. Ordering Physician: Jose Enrique Finney Referring Physician: Jose Enrique Finney Performed By: Jaylin Shafer RVT
== END | disposition home or self-care (01) ==
PROVIDERS: PCP Family Medicine; Referring Provider Family Medicine; Visit Provider Family Medicine
DX: I65.23 Occlusion and stenosis of bilateral carotid arteries (principal)
CPT/HCPCS: 93880

== ENCOUNTER → 2024-01-24 | Outpatient (CLI) | payer MEDICARE, BC, SELFPAY ==
[2024-01-24 15:21] LABS: Absolute Lymphocyte Count 1.06 X10^3/uL (0.83-4.51); Absolute Neutrophil Count 4.5 X10^3/uL (2.0-7.7); Basophil# 0.03 X10^3/uL; Basophil% 0.5 % (0-1); Eosinophil# 0.09 X10^3/uL; Eosinophils% 1.5 % (0-5); Hemoglobin 12.6 g/dL (13.0-16.5); Lymphocyte # 1.06 X10^3/ul (0.83-4.51); Lymphocyte % 17.2 % (19-41); Mean Corp Hgb Conc 32.3 g/dL (32-36); Mean Corpuscular Hgb 30.8 pg (27.0-32.0); Mean Corpuscular Volume 95.4 fL (80-94); Monocyte# 0.49 X10^3/uL; NRBC Flagged by Analyzer 0 % (0-5); Neutrophil # 4.45 X10^3/uL (2.7-7.7); Neutrophil % 72.3 % (47-70); Platelet Count 180 K/mm3 (150-450); RBC Distribution Width CV 13.8 % (11.6-14.6); RBC Distribution Width SD 48.4 fl (35.1-43.9); Red Blood Count 4.09 M/mm3 (4.6-6.2); White Blood Count 6.2 K/mm3 (4.4-11.0)
[2024-01-24 15:35] LABS: Vitamin D,25 Hydroxy 51.5 ng/mL
[2024-01-24 15:38] LABS: Hemoglobin A1c 9.8 % (3.8-5.6)
[2024-01-24 15:44] LABS: AST(SGOT) 36 U/L (15-37); Alanine Aminotransfer ALT/SGPT 57 U/L (16-61); Albumin, Serum 3.5 g/dL (3.2-5.0); Alkaline Phosphatase 135 U/L (45-117); Anion Gap 5 (5-15); BUN 26 mg/dL (7-18); BUN/Creat Ratio 18.4 RATIO (10-20); Chloride 105 mmol/L (98-107); Cholesterol 97 mg/dL (200); Creatinine, Serum 1.41 mg/dL (0.70-1.30); EST Glomerular Filtration Rate 51 mL/min (>60); Est Glom Filt Rate - Afr Amer 62 mL/min (>60); Globulin 3.6 g/dL (2.2-4.2); Glucose 275 mg/dL (74-106); High Density Lipoprotein 28 mg/dL; Magnesium 2.6 mg/dL (1.6-2.6); Potassium 4.3 mmol/L (3.5-5.1); Protein, Total 7.1 g/dL (6.4-8.2); Sodium Level 138 mmol/L (136-145); Triglycerides 119 mg/dL; Very Low Density Lipoprotein 24 mg/dL (5-40)
[2024-01-24 15:55] LABS: Microalbumin:Creatinine Ratio 243.2 mg/g CRE (<30 mg/g CRE); Protein, Urine (Random) 58.4 mg/dL (<11.9); Protein:Creat Ratio 1214 mg/g CRE (0-200)
== END | disposition home or self-care (01) ==
LOC: MFPLAB 12:09
PROVIDERS: PCP Family Medicine; Visit Provider Family Medicine
DX: I48.0 Paroxysmal atrial fibrillation (principal); E11.69 Type 2 diabetes mellitus with other specified complication; E11.59 Type 2 diabetes mellitus with other circulatory complications; E55.9 Vitamin D deficiency, unspecified
CPT/HCPCS: 36415; 80053; 80061; 82043; 82306; 82570; 83036; 83735; 84156; 85025

== ENCOUNTER → 2024-02-14 | Outpatient (CLI) | payer MEDICARE, BC, SELFPAY ==
--- NOTE | 2024-02-14 06:28 | ECHOCS_ITS ---
Reason For Study: CORONARY ARTERY DISEASE Procedure This was a 2D Doppler, Color Flow transthoracic echocardiogram. The study was technically difficult. Contrast injection was performed. Exam performed in department. Left Ventricle Mildly dilated left ventricle. The estimated ejection fraction is 20 %. There is evidence of diastolic dysfunction. There is severe global hypokinesis of the left ventricle. Right Ventricle Normal RV size. There is a pacemaker lead in the right ventricle. Normal systolic function. Atria There is mild biatrial dilatation. ICD or pacer leads identified within the right atrium. No doppler evidence for ASD. Mitral Valve There is no mitral valve stenosis. Mild (1+) mitral valve insufficiency. Status post mitral valve repair. Tricuspid Valve There is no tricuspid stenosis. Moderate (2+) tricuspid valve insufficiency. Pulmonary artery systolic pressure is 60 mmHg. Aortic Valve Moderate diffuse aortic valve thickening. Mild aortic stenosis. No aortic valve insufficiency. Pulmonic Valve There is no pulmonic valvular stenosis. Trivial pulmonic valve insufficiency. Great Vessels Normal aortic root. Pericardium/Pleural No pericardial effusion. Medication 22 gauge I.V. with prn adaptor inserted into right arm. Diluted definity 3ml given slow IV push to enhance endocardial definition. Performed a rapid injection of agitated mix of 9 cc saline and 1cc air to assess for atrial septal defect. MMode/2D Measurements & Calculations LVIDd: 5.9 cm IVSd: 0.88 cm LVOT diam: 2.1 cm LVIDs: 5.0 cm LVPWd: 1.1 cm RVDd: 5.0 cm FS: 15.0 % LVOT area: 3.5 cm2 Ao root diam: 3.3 cm LAV(MOD-bp): 78.9 ml LVAd ap4: 42.3 cm2 LAV(MOD-bp) Indexed: 45.9 ml/m2 LVLd ap4: 9.4 cm LAV(MOD-sp2): 65.8 ml EDV(MOD-sp4): 158.3 ml LAV(MOD-sp4): 83.5 ml EDV(sp4-el): 161.0 ml LVAs ap4: 36.0 cm2 LVLs ap4: 8.4 cm ESV(MOD-sp4): 125.5 ml ESV(sp4-el): 130.1 ml EF(MOD-sp4): 20.7 % EF(sp4-el): 19.2 % LVAd ap2: 45.1 cm2 SV(MOD-sp4): 32.8 ml SV(MOD-sp2): 44.2 ml LVLd ap2: 9.3 cm EDV(MOD-sp2): 183.5 ml EDV(sp2-el): 186.4 ml LVAs ap2: 38.3 cm2 LVLs ap2: 8.4 cm ESV(MOD-sp2): 139.4 ml ESV(sp2-el): 148.3 ml EF(MOD-sp2): 24.1 % SV(sp4-el): 30.9 ml LA dimension(2D): 4.6 cm LA A4 area: 25.7 cm2 RA A4 area: 18.7 cm2 TAPSE: 1.2 cm Time Measurements MV dec time: 0.19 sec Doppler Measurements & Calculations MV E max richard: 131.2 cm/sec Lat Peak E' Richard: 6.0 cm/sec Med Peak E' Richard: 3.9 cm/sec E/E' lat: 21.8 E/E' med: 34.1 MV V2 max: 155.6 cm/sec Ao V2 max: 189.1 cm/sec LV V1 max: 118.4 cm/sec MV max P.7 mmHg Ao max P.3 mmHg LV V1 max P.8 mmHg MV V2 mean: 69.2 cm/sec Ao V2 mean: 126.7 cm/sec LV V1 mean P.0 mmHg MV mean P.6 mmHg Ao mean P.5 mmHg LV V1 mean: 79.1 cm/sec MV V2 VTI: 33.4 cm Ao V2 VTI: 45.6 cm LV V1 VTI: 26.1 cm AV (velocity ratio): 0.57 MVA(VTI): 2.7 cm2 DAMASO(I,D): 2.0 cm2 DAMASO(V,D): 2.2 cm2 SV(LVOT): 91.5 ml PA V2 max: 84.4 cm/sec PI end-d richard: 142.0 cm/sec PA max PG (full): 2.0 mmHg TR max richard: 351.4 cm/sec TR max P.4 mmHg ECHO/Echo Complete W/ Contrast Interpretation Summary Mildly dilated left ventricle. The estimated ejection fraction is 20 %. There is severe global hypokinesis of the left ventricle. There is evidence of diastolic dysfunction. There is mild biatrial dilatation. Status post mitral valve repair. Mild (1+) mitral valve insufficiency. Mild aortic stenosis. Ordering Physician: Jose Enrique Finney Referring Physician: Jose Enrique Finney Performed By: Xuan Cisneros RDCS and Student
--- NOTE | 2024-02-14 12:10 | STRESSREP ---
Stress Test Report Pharmacologic myocardial perfusion stress test. 83-year-old man with a history of coronary artery disease and shortness of breath. Resting EKG demonstrates atrial fibrillation with a paced rhythm with a rate of 67 bpm. Resting blood pressure is 130/82 mmHg. 0.4 mg of regadenoson was infused per usual protocol followed by rapid intravenous saline flush injection. Continuous EKG monitoring was performed. The maximum heart rate was 80 bpm which was 57 of max impacted heart rate the maximum workload was 1 metabolic equivalent. At rest there were no ST or T wave changes noted to suggest ischemia and at peak infusion nonspecific ST changes were noted which did not meet the criteria for ischemia. No clinical angina is noted. The final blood pressure was 112/62 mmHg. Myocardial perfusion protocol. 11 point mCi of technetium 99m sestamibi was injected at rest. 0.4 mg of regadenoson was infused per usual protocol. At peak infusion 34.1 mCi of technetium 99m sestamibi was injected stress images were obtained stress and rest images were reconstructed and compared in the short axis vertical long and horizontal long axis. Gated images were also obtained. Perfusion SPECT analysis: Review of the stress images demonstrate normal uptake of tracer noted in all areas of the myocardium except for a large portion of the anterior wall and apex and inferoapical wall with apical defect. The resting images demonstrate a similar pattern. The above is suggestive of a previous anterior apical inferoapical infarct with no reversibility to suggest ischemia. Pacemaker activity could account for some of this as well. Gated SPECT analysis: The gated ejection fraction is 30%. Conclusion: Pharmacologic myocardial perfusion stress test with evidence of anterior, apical, inferoapical infarct. No ischemia noted Reduced ejection fraction
== END | disposition home or self-care (01) ==
PROVIDERS: PCP Family Medicine; Referring Provider Family Medicine; Visit Provider Family Medicine
DX: R06.02 Shortness of breath (principal); I25.10 Atherosclerotic heart disease of native coronary artery without angina pectoris
CPT/HCPCS: 78452; 93017; 93306; A9500; Q9957; A4216; C8929; J2785

== ENCOUNTER → 2024-02-21 | Outpatient (CLI) | payer MEDICARE, BC, SELFPAY ==
--- NOTE | 2024-02-21 12:49 | CDU_ITS ---
Reason For Study: Bilateral Carotid Stenosis Rt. Velocities/BP Lt. Velocities/BP Prox CCA 72.4/16.6 cm/sec. Prox CCA 78.7/18.2 cm/sec. Mid CCA 76.1/19.5 cm/sec. Mid CCA 66.6/16.0 cm/sec. Dist CCA 68.6/16.6 cm/sec. Dist CCA 65.5/16.0 cm/sec. Prox ICA 59.1/19.5 cm/sec. Prox ICA 78.7/25.9 cm/sec. Mid ICA 59.5/17.7 cm/sec. Mid ICA 63.3/21.5 cm/sec. Dist ICA 57.3/24.3 cm/sec. Dist ICA 61.2/18.4 cm/sec. Rt. ICA/CCA = 0.8. Lt. ICA/CCA = 1.2. Prox ECA 97.9/10.2 cm/sec. Prox ECA 128.6/16.7 cm/sec. Rt. Vert. 34.6/3.3 cm/sec. Lt. Vert. 54.4/16.6 cm/sec. Right Extracranial There is heterogeneous, irregular atherosclerotic plaque noted in the right common carotid artery. There is heterogeneous, irregular atherosclerotic plaque noted in the right internal carotid artery. There is heterogeneous, irregular atherosclerotic plaque noted in the right external carotid artery. Antegrade flow is noted in the right vertebral artery. Left Extracranial There is heterogeneous, irregular atherosclerotic plaque noted in the left common carotid artery. There is heterogeneous, irregular atherosclerotic plaque noted in the left internal carotid artery. There is heterogeneous, irregular atherosclerotic plaque noted in the left external carotid artery. Antegrade flow is noted in the left vertebral artery. Procedure Carotid Duplex [id number]. This is a Carotid Duplex examination using B-mode, color flow and specral Doppler. The exam was diagnostic. Exam performed in department. VL/Carotid Duplex Ultrasound Interpretation Summary Mild (<50%) stenosis right extracranial internal carotid. Mild (<50%) stenosis left extracranial internal carotid. Patent and antegrade vertebrals bilaterally. Ordering Physician: Harper Sanchez Referring Physician: Jose Enrique Finney Performed By: Luiz Garcia RVT
== END | disposition home or self-care (01) ==
LOC: CVS 12:48
PROVIDERS: PCP Family Medicine; Visit Provider Surgery Vascular Surgery
DX: I65.23 Occlusion and stenosis of bilateral carotid arteries (principal); R09.89 Other specified symptoms and signs involving the circulatory and respiratory systems
CPT/HCPCS: 93880

== ENCOUNTER → 2024-03-20 | Outpatient (CLI) | payer MEDICARE, BC, SELFPAY ==
[2024-03-20 12:34] LABS: Hematocrit 40.8 % (40-54); Hemoglobin 13.2 g/dL (13.0-16.5); Mean Corp Hgb Conc 32.4 g/dL (32-36); Mean Corpuscular Hgb 31.1 pg (27.0-32.0); Mean Corpuscular Volume 96.2 fL (80-94); Mean Platelet Vol. 10.3 fl (6.2-12.0); Platelet Count 183 K/mm3 (150-450); RBC Distribution Width CV 13.5 % (11.6-14.6); RBC Distribution Width SD 47.8 fl (35.1-43.9); Red Blood Count 4.24 M/mm3 (4.6-6.2)
[2024-03-20 16:02] LABS: ALB/GLOB Ratio 0.9 RATIO (0.9-2.4); AST(SGOT) 31 U/L (15-37); Alanine Aminotransfer ALT/SGPT 43 U/L (16-61); Albumin, Serum 3.3 g/dL (3.2-5.0); Alkaline Phosphatase 129 U/L (45-117); Anion Gap 3 (5-15); BUN 23 mg/dL (7-18); BUN/Creat Ratio 20.7 RATIO (10-20); Calcium,Total 8.7 mg/dL (8.5-10.1); Chloride 105 mmol/L (98-107); Creatinine, Serum 1.11 mg/dL (0.70-1.30); EST Glomerular Filtration Rate 67 mL/min (>60); Est Glom Filt Rate - Afr Amer 81 mL/min (>60); Globulin 3.7 g/dL (2.2-4.2); Glucose 280 mg/dL (74-106); Potassium 4.2 mmol/L (3.5-5.1); Sodium Level 136 mmol/L (136-145); T4 Free Direct 0.97 ng/dL (0.76-1.46)
[2024-03-22 05:07] LABS: Prealbumin 22 mg/dL (9-32)
== END | disposition home or self-care (01) ==
LOC: MFPLAB 11:04
PROVIDERS: PCP Family Medicine; Visit Provider Family Medicine
DX: R63.4 Abnormal weight loss (principal)
CPT/HCPCS: 36415; 80053; 84134; 84439; 84443; 85027

== ENCOUNTER → 2024-08-03 | Outpatient (CLI) | payer MEDICARE, BC, SELFPAY ==
[2024-08-03 15:09] LABS: Anion Gap 4 (5-15); BUN 25 mg/dL (7-18); BUN/Creat Ratio 17.4 RATIO (10-20); Calcium,Total 8.7 mg/dL (8.5-10.1); Chloride 105 mmol/L (98-107); Creatinine, Serum 1.44 mg/dL (0.70-1.30); EST Glomerular Filtration Rate 50 mL/min (>60); Est Glom Filt Rate - Afr Amer 60 mL/min (>60); Glucose 194 mg/dL (74-106); Potassium 4.3 mmol/L (3.5-5.1); Sodium Level 138 mmol/L (136-145)
== END | disposition home or self-care (01) ==
LOC: LAB 14:27
PROVIDERS: PCP Family Medicine; Referring Provider Physician Assistant Medical; Visit Provider Physician Assistant Medical
DX: Z51.81 Encounter for therapeutic drug level monitoring (principal); Z79.899 Other long term (current) drug therapy
CPT/HCPCS: 36415; 80048

== ENCOUNTER → 2024-08-13 | Outpatient (CLI) | payer MEDICARE, BC, SELFPAY ==
[2024-08-13 11:02] LABS: Anion Gap 3 (5-15); BUN 24 mg/dL (7-18); BUN/Creat Ratio 19.7 RATIO (10-20); Calcium,Total 8.6 mg/dL (8.5-10.1); Chloride 105 mmol/L (98-107); Creatinine, Serum 1.22 mg/dL (0.70-1.30); EST Glomerular Filtration Rate 60 mL/min (>60); Est Glom Filt Rate - Afr Amer 73 mL/min (>60); Glucose 284 mg/dL (74-106); Potassium 4.5 mmol/L (3.5-5.1); Sodium Level 135 mmol/L (136-145)
== END | disposition home or self-care (01) ==
LOC: LAB 10:20
PROVIDERS: PCP Family Medicine; Referring Provider Physician Assistant Medical; Visit Provider Physician Assistant Medical
DX: Z51.81 Encounter for therapeutic drug level monitoring (principal); Z79.899 Other long term (current) drug therapy

== ENCOUNTER 2024-10-07 20:06 | Observation (INO) | payer MEDICARE, BC, SELFPAY ==
[2024-10-07 20:06] VITALS: BP 118/76; PULSE 65; RESP 14; TEMP 36.6; O2SAT 98; BMI 23.4
--- NOTE | 2024-10-07 20:27 | EKG12_ITS ---
Test Reason : DYSRHYTHMIA Blood Pressure : */* mmHG Vent. Rate : 74 BPM Atrial Rate : 36 BPM P-R Int : * ms QRS Dur : 232 ms QT Int : 514 ms P-R-T Axes : * -75 99 degrees QTcB Int : 570 ms Ventricular-paced rhythm with occasional Premature ventricular complexes Abnormal ECG Confirmed by Ponce Kent ([id number]), editorial clerk ELROY LONDON ([id number]) on 10/08/2024 11:04:00 AM Referred By: JUANCHO Confirmed By: Ponce Kent
--- NOTE | 2024-10-07 20:27 | CT_ITS ---
EXAM: CT brain without IV contrast CLINICAL HISTORY: Altered mental status COMPARISON: 03/17/2018 TECHNIQUE: Multiple contiguous axial images through the brain were obtained without the administration of intravenous contrast. Two-dimensional coronal and sagittal reformatted images were reconstructed. Low-dose imaging technique was utilized. FINDINGS: No evidence of acute intracranial hemorrhage, midline shift or mass effect. No definite CT evidence of acute territorial cortical infarction. No hydrocephalus. Mild generalized cerebral atrophy and minimal chronic small-vessel ischemic changes. Cerebrovascular calcifications. Calvarium is intact. Paranasal sinuses and mastoid air cells are clear. CT/Brain/Head without Contrast IMPRESSION: No acute intracranial abnormality. Reading Location: [facility]
--- NOTE | 2024-10-07 20:30 | EX.ED.DYSGE1 ---
HPI History of Present Illness Chief Complaint: Weakness Informant: patient and family Narrative Narrative: 84-year-old male is brought in by family members states he is a little disoriented today, and he has not been feeling well. He states it is mainly been today, but he states that a couple days ago he took a single metolazone 2.5 mg because I thought it would make me feel better. He states he has chronic dyspnea that is no different than usual right now. Denies a cough, nausea, vomiting, diarrhea. He denies any chest pains or discomfort. He states periodically he looked his pacemaker/defibrillator up to my maturity checker and today he did it and it said that there was a problem. He states a couple days ago when he did it there were no issues. He did not receive a phone call from anyone about a dysrhythmia, however the grandson states that when he and other family members were calling him to check on him today he was not responding to their phone calls. He denies having any pain at the site of his AICD. He states he does know that the battery is going to have to be replaced at some point but he is not sure when. [facility] Medical History Mixed hyperlipidemia Paroxysmal atrial fibrillation Hypokalemia due to loss of potassium Acute blood loss anemia Upper GI bleed Muscle cramps NSVT (nonsustained ventricular tachycardia) Nonrheumatic mitral valve insufficiency Atherosclerosis of [place] coronary artery of [place] heart without angina pectoris Ischemic cardiomyopathy Essential (primary) hypertension Type 2 diabetes mellitus without complications Home Medications ?Medication ?Instructions ?Recorded ?Last Taken ?Type multivitamin with folic acid 400 1 tab PO DAILY supplement 04/11/17 Unknown History mcg tablet insulin lispro 100 unit/mL 10 unit subcut TID blood sugar 03/17/18 11/12/18 07:00 History subcutaneous cartridge insulin detemir U-100 100 unit/mL 32 unit subcut QHS diabetes 11/10/20 Unknown History (3 mL) subcutaneous pen tamsulosin 0.4 mg capsule 0.4 mg PO DAILY 11/10/20 Unknown History zolpidem 5 mg tablet (Ambien) 5 mg PO QHS PRN insomnia 11/10/20 Unknown History apixaban 5 mg tablet 5 mg PO BID #180 tabs 02/24/21 Unknown Rx carvedilol 12.5 mg tablet 12.5 mg PO BID #180 tabs 02/24/21 Unknown Rx cyclobenzaprine 5 mg tablet 5 mg PO TID PRN muscle spasm 02/16/23 Unknown History mirtazapine 15 mg tablet 15 mg PO QHS 02/16/23 Unknown History nitroglycerin 0.4 mg sublingual 0.4 mg sublingual Q5-15M PRN chest 03/22/23 Unknown Rx tablet (Nitrostat) pain #25 tabs potassium chloride 20 mEq 20 meq PO BID supplement #180 tabs 04/16/24 Unknown Rx tablet,extended release(part/cryst) isosorbide mononitrate 30 mg 30 mg PO DAILY #90 tabs 06/18/24 Unknown Rx tablet,extended release 24 hr rosuvastatin 40 mg tablet 40 mg PO DAILY #90 tabs 06/18/24 Unknown Rx furosemide 40 mg tablet 40 mg PO .COMPLEX diuretic #180 08/03/24 Unknown Rx tabs Allergy/AdvReac Type Severity Reaction Status Date / Time atorvastatin Allergy Severe myalgias, Verified 10/07/24 20:06 tongue swelling captopril Allergy Severe tongue Verified 10/07/24 20:06 swelling rivaroxaban (From Xarelto) Allergy Severe tongue Verified 10/07/24 20:06 swelling glimepiride Allergy Intermediate mouth Verified 10/07/24 20:06 blisters levofloxacin (From Levaquin) Allergy Intermediate leg pain Verified 10/07/24 20:06 dapagliflozin (From Farxiga) Allergy Unknown Rash Verified 10/07/24 20:06 azithromycin (From Zithromax) AdvReac Severe blisters Verified 10/07/24 20:06 metolazone AdvReac Severe Rash/Itchin Verified 10/07/24 20:06 g pravastatin AdvReac Intermediate itching Verified 10/07/24 20:06 Surgical History History of right-sided carotid endarterectomy History of electrophysiologic study History of left heart catheterization Status post mitral valve annuloplasty Hx of CABG (~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) Social History Smoking Status: Former smoker how long ago did patient quit smokin years ago alcohol intake: never substance use type: does not use caffeine: No what type of physical activity do you participate in: walking frequency: daily duration: 15-30 minutes/day seatbelt use: always do you feel safe at home: Yes ROS ROS ED Constitutional Constitutional ED: Reports fatigue and malaise; Denies chills or fever(s) Eyes Eyes: Denies change in vision or diplopia ENT ENT ED: Denies rhinorrhea or sore throat Cardiovascular Cardiovascular: Denies chest pain, orthopnea or palpitations Respiratory/Chest Respiratory/Chest: Reports dyspnea and dyspnea on exertion; Denies cough or orthopnea Gastrointestinal Gastrointestinal: Denies abdominal pain, diarrhea, nausea or vomiting Genitourinary Genitourinary ED: Denies dysuria or hematuria Musculoskeletal Musculoskeletal: Denies back pain or neck pain Integumentary Denies abscess or rash Neurologic Neurologic: Denies headache(s), paresthesias or weakness Psychiatric Psychiatric: Denies anxiety or suicidal thoughts EXAM Physical Exam Const Vital Signs: 10/07/24 20:06 10/07/24 20:58 10/07/24 22:06 Temperature 98 F Temperature Source Temporal Pulse Rate 65 62 Respiratory Rate 14 18 Respiratory Effort Normal Non-Labored Respiratory Pattern Normal Blood Pressure 118/76 123/81 H Blood Pressure Mean 90 95 Pulse Ox 98 94 Oxygen Delivery Method Room Air Room Air 10/07/24 23:11 Temperature 98.0 F Temperature Source Pulse Rate 61 Respiratory Rate 18 Respiratory Effort Respiratory Pattern Blood Pressure 110/71 Blood Pressure Mean 84 Pulse Ox 96 Oxygen Delivery Method Positive well nourished, well developed and cachectic General Appearance ED: well developed, cachectic and NAD Nutritional Appearance: cachectic HEENT Reports moist mucous membranes normocephalic and atraumatic Eyes PERRL and EOMs intact bilaterally Neck full ROM and supple Chest Wall inspection of chest normal and palpation of chest normal Chest Narrative: AICD site benign Resp normal respiratory effort and clear to auscultation bilaterally Cardio regular rate and regular rhythm GI non-tender and non-distended GI Narrative: No palpable pulsatile mass Auscultation: normoactive bowel sounds Palpation: soft Back/Spine no CVA tenderness General Back: other FROM Extremity normal to inspection General Extremety ED: Yes edema; Negative for pulses abnormal or tenderness General Extremity: edema bilateral lower extremity Details: mild (Symmetric, with changes of chronic stasis dermatitis); Negative for pulses abnormal Neuro oriented x3, CN's II-XII intact bilaterally and no sensory deficits noted Sensorium / Orientation: awake and alert Motor Exam: general weakness Psych mental status grossly normal Skin no rashes or lesions noted and no wounds MDM MDM MDM Narrative Medical decision making narrative: Elderly gentleman with generalized weakness, leg cramps, disorientation, broad workup obtained including CT of the head which is normal/negative for any acute on my interpretation, chest x-ray 1 view which is negative for pneumonia interpretation, a COVID/flu swab which is negative, labs, EKG which shows probable underlying A-fib with a paced rhythm, and we checked his device. Solid Waste Engineer called us and said that his device is checking out fine and the monitor that he uses at home to check his device had an error. I reassured him about that. His labs show LISA along with hypokalemia, the hypokalemia is probably making him feel poorly. He is on Lasix as well as metolazone, presumably because of edema in his legs and/or his ischemic cardiomyopathy, and he is already on twice daily oral potassium supplementation at home. Given this I think he would benefit from being admitted overnight to replace his potassium parenterally which we started in the ED. He lives alone and is in agreement with that. History & Record Review Discussion w/independent historian: Patient and Family Lab Data Attestation: I reviewed the patient's lab results. Labs: Laboratory Results - last 24 hr 10/07/24 10/07/24 10/07/24 20:48 22:12 22:45 WBC 8.0 RBC 4.50 L Hgb 14.1 Hct 40.1 MCV 89.1 MCH 31.3 MCHC 35.2 RDW Std Deviation 42.5 RDW Coeff of Marley 13.0 Plt Count 196 MPV 9.9 Immature Gran % (Auto) 0.400 Neut % (Auto) 68.0 Lymph % (Auto) 18.6 L [place] % (Auto) 11.1 H Eos % (Auto) 1.5 Baso % (Auto) 0.4 Absolute Neuts (auto) 5.5 Absolute Lymphs (auto) 1.49 Nucleated RBC % 0 Sodium 131 L Potassium 2.9 L Chloride 88 L Carbon Dioxide 26.0 Anion Gap 18 H BUN 27 H Creatinine 1.95 H Estim Creat Clear Calc 26.84 L Est GFR (MDRD) Non-Af 34 L BUN/Creatinine Ratio 13.9 Glucose 118 H Calcium 9.6 Total Bilirubin 1.04 AST 35 ALT 36 Alkaline Phosphatase 133 H Troponin T High Sens 46 H Troponin T Hi Sens 2 Hr 46 H Total Protein 7.4 Albumin 4.3 Globulin 3.1 Albumin/Globulin Ratio 1.4 Urine Color Straw Urine Clarity Clear Urine pH 7.0 Ur Specific [place] 1.005 Urine Protein 100 H Urine Glucose (UA) Normal Urine Ketones Negative Urine Occult Blood 25 H Urine Nitrite Negative Urine Bilirubin Negative Urine Urobilinogen Normal Ur Leukocyte Esterase Negative Urine RBC 0-5 SEEN Urine WBC 0-5 SEEN Ur Squamous Epith Cells 0 SEEN Urine Bacteria 0 SEEN Urine Mucus 0 SEEN Radiography Diagnostic Testing: Clinical Impression(s) from Imaging Studies Brain CT 10/07/24 20:27 IMPRESSION: No acute intracranial abnormality. Reading Location: [facility] Chest X-Ray 10/07/24 21:10 IMPRESSION: No acute airspace abnormality. Reading Location: [facility] Rhythm Strip Rhythm Strip: paced Rate: 65 Ectopy: PVC(s) EKG Initial EKG: Attestation: I personally reviewed and interpreted this EKG as follows: Interpretation: No Acute Injury Pattern and Paced Prior EKG tracings: available for review Prior: Unchanged Management Discussion w/another healthcare provider: Hospitalist Discharge Plan Dx/Rx/DC Orders Clinical Impression: Acute hypokalemia, LISA (acute kidney injury), Disorientation, Declining functional status Disposition Disposition: Acute Care [facility]
--- NOTE | 2024-10-07 21:10 | RAD_ITS ---
PROCEDURE: CHEST PA AND LATERAL REASON FOR EXAM: Weakness, chest pain TECHNIQUE: Frontal and lateral views of the chest. COMPARISON: 06/25/2019 FINDINGS: Cardiomediastinal silhouette is within normal limits. Intact dual lead left cardiac pacer/AICD. Status post CABG. Lungs are clear. No sizable pneumothorax. RAD/Chest PA and Lateral IMPRESSION: No acute airspace abnormality. Reading Location: [facility]
[2024-10-07 21:14] LABS: Absolute Lymphocyte Count 1.49 X10^3/uL (0.83-4.51); Absolute Neutrophil Count 5.5 X10^3/uL (2.0-7.7); Basophil# 0.03 X10^3/uL; Basophil% 0.4 % (0-1); Eosinophil# 0.12 X10^3/uL; Eosinophils% 1.5 % (0-5); Hematocrit 40.1 % (40-54); Hemoglobin 14.1 g/dL (13.0-16.5); Lymphocyte # 1.49 X10^3/ul (0.83-4.51); Lymphocyte % 18.6 % (19-41); Mean Corp Hgb Conc 35.2 g/dL (32-36); Mean Corpuscular Hgb 31.3 pg (27.0-32.0); Mean Corpuscular Volume 89.1 fL (80-94); Mean Platelet Vol. 9.9 fl (6.2-12.0); Monocyte# 0.89 X10^3/uL; Monocyte% 11.1 % (0-10); NRBC Flagged by Analyzer 0 % (0-5); Neutrophil # 5.45 X10^3/uL (2.7-7.7); Platelet Count 196 K/mm3 (150-450); RBC Distribution Width SD 42.5 fl (35.1-43.9)
[2024-10-07 21:49] LABS: Troponin T High Sensitivity 46 ng/L (<=22)
[2024-10-07 22:06] VITALS: BP 123/81; PULSE 62; RESP 18; O2SAT 94
[2024-10-07 22:18] LABS: ALB/GLOB Ratio 1.4 RATIO (0.9-2.4); AST(SGOT) 35 U/L (<=37); Alanine Aminotransfer ALT/SGPT 36 U/L (<=46); Albumin, Serum 4.3 g/dL (3.4-4.8); Alkaline Phosphatase 133 U/L (40-129); Anion Gap 18 (5-15); BUN 27 mg/dL (4-19); BUN/Creat Ratio 13.9 RATIO (10-20); Calcium,Total 9.6 mg/dL (7.6-11.0); Chloride 88 mmol/L (98-108); Creatinine, Serum 1.95 mg/dL (0.70-1.20); EST Glomerular Filtration Rate 34 (>60); Estimated Creatinine Clearance 26.84 ml/min (50-250); Globulin 3.1 g/dL (2.2-4.2); Glucose 118 mg/dL (70-99); Potassium 2.9 mmol/L (3.3-5.1); Protein, Total 7.4 g/dL (5.9-8.4); Sodium Level 131 mmol/L (133-145); Total Bilirubin 1.04 mg/dL (0.00-1.30)
[2024-10-07 22:18] LABS: Bacteria 0 SEEN /hpf (None Seen); Mucous, Urine 0 SEEN /hpf (<or=2+); Squamous Epithelial Cells - UA 0 SEEN /hpf (0-5)
[2024-10-07 22:23] LABS: Color, Urine Straw (Yellow); Glucose, Dipstick Normal (Normal); Ketone-Dipstick Negative (Negative); Leukocyte Esterase-Dipstick Negative /ul (Negative); Nitrite-Dipstick Negative (Negative); Occult Blood-Urine 25 /ul (Negative); Protein-Dipstick 100 mg/dl (Negative); Specific Gravity, Urine 1.005 (1.002-1.030); Urine Bilirubin Dipstick Negative (Negative); Urine Clarity Clear (Clear); Urine Urobilinogen Normal (Normal)
[2024-10-07 23:11] VITALS: BP 110/71; PULSE 61; RESP 18; TEMP 36.7; O2SAT 96
[2024-10-07 23:12] LABS: Troponin T High Sens 2 HR 46 ng/L (<=22)
[2024-10-07 23:13] LABS: Red Blood Cells-Urine 0-5 SEEN /hpf (0-5); White Blood Cells 0-5 SEEN /hpf (0-5)
--- NOTE | 2024-10-07 23:17 | PCM.HP.STD ---
HPI - General General Date of Admission: 10/07/24 Date of Service: 10/07/24 Chief Complaint: Fatigue, malaise. HPI Narrative The patient is an 84 y/o M w/ PMHx: PAF, HTN, HLD, Diabetes mellitus type II, BPH with obstructive pathology, Anxiety and Depression, CKD stage II per previous GFR trending, CAD/ischemic cardiomyopathy s/p AICD/pacemaker and PCI/CABG 2009, Carotid disease status post right carotid endarterectomy, Valvular Heart Disease who presents to the [facility] ED on 10/07/2024 with history of significant fatigue and general malaise reporting that a couple days previous he took a single metolazone 2.5 mg thinking that potentially he had been overloaded and this was the reason but he does report that his chronic dyspnea is unchanged and is had no recent URI type symptoms nor any GI symptoms or any chest discomfort prompt eventual ED evaluation to be cautious. Family members and patient do state that eventually he will need his battery changed in the ICD but it is unclear when. Patient denies unfortunately checking his weights daily. He notes he is chronically dyspneic and this is worse with exertion. He does report chronic lower extremity edema which is unchanged. He does report since taking the diuretic he has had notable leg cramping. Workup in the ED included T98 temporal, heart 65, BP 118/76, respiratory rate 14, 98% room air with most recent repeat vitals heart rate 62, BP 123/81, respiratory rate 18, 94% room air, CBC with WC 8.0, he 1 14.1, platelets 196 without marked shift, CMP with sodium 131, potassium 2.9, chloride 88, anion gap 18, BUN/creatinine 27/1.95, GFR 34, glucose 118, alk phos 133 otherwise hepatic profile not marked appearing, troponin initial 46, chest x-ray with no acute cardiopulmonary findings, CT brain with no acute intracranial findings, urinalysis pending upon requested evaluation of patient, delta troponin pending upon request evaluation of patient, EKG with paced rhythm with PVC with no acute evidence of ischemia, rapid SARS COVID/impulsive/ RSV PCR negative. In the ED patient started on 10 mEq IV x 1 K supplementation. [facility] Medical History Mixed hyperlipidemia Paroxysmal atrial fibrillation Hypokalemia due to loss of potassium Acute blood loss anemia Upper GI bleed Muscle cramps NSVT (nonsustained ventricular tachycardia) Nonrheumatic mitral valve insufficiency Atherosclerosis of redding coronary artery of redding heart without angina pectoris Ischemic cardiomyopathy Essential (primary) hypertension Type 2 diabetes mellitus without complications Home Medications ?Medication ?Instructions ?Recorded ?Last Taken ?Type multivitamin with folic acid 400 1 tab PO DAILY supplement 04/11/17 Unknown History mcg tablet insulin lispro 100 unit/mL 10 unit subcut TID blood sugar 03/17/18 11/12/18 07:00 History subcutaneous cartridge insulin detemir U-100 100 unit/mL 32 unit subcut QHS diabetes 11/10/20 Unknown History (3 mL) subcutaneous pen tamsulosin 0.4 mg capsule 0.4 mg PO DAILY 11/10/20 Unknown History zolpidem 5 mg tablet (Ambien) 5 mg PO QHS PRN insomnia 11/10/20 Unknown History apixaban 5 mg tablet 5 mg PO BID #180 tabs 02/24/21 Unknown Rx carvedilol 12.5 mg tablet 12.5 mg PO BID #180 tabs 02/24/21 Unknown Rx cyclobenzaprine 5 mg tablet 5 mg PO TID PRN muscle spasm 02/16/23 Unknown History mirtazapine 15 mg tablet 15 mg PO QHS 02/16/23 Unknown History nitroglycerin 0.4 mg sublingual 0.4 mg sublingual Q5-15M PRN chest 03/22/23 Unknown Rx tablet (Nitrostat) pain #25 tabs potassium chloride 20 mEq 20 meq PO BID supplement #180 tabs 04/16/24 Unknown Rx tablet,extended release(part/cryst) isosorbide mononitrate 30 mg 30 mg PO DAILY #90 tabs 06/18/24 Unknown Rx tablet,extended release 24 hr rosuvastatin 40 mg tablet 40 mg PO DAILY #90 tabs 06/18/24 Unknown Rx furosemide 40 mg tablet 40 mg PO .COMPLEX diuretic #180 08/03/24 Unknown Rx tabs Allergy/AdvReac Type Severity Reaction Status Date / Time atorvastatin Allergy Severe myalgias, Verified 10/07/24 20:06 tongue swelling captopril Allergy Severe tongue Verified 10/07/24 20:06 swelling rivaroxaban (From Xarelto) Allergy Severe tongue Verified 10/07/24 20:06 swelling glimepiride Allergy Intermediate mouth Verified 10/07/24 20:06 blisters levofloxacin (From Levaquin) Allergy Intermediate leg pain Verified 10/07/24 20:06 dapagliflozin (From Farxiga) Allergy Unknown Rash Verified 10/07/24 20:06 azithromycin (From Zithromax) AdvReac Severe blisters Verified 10/07/24 20:06 metolazone AdvReac Severe Rash/Itchin Verified 10/07/24 20:06 g pravastatin AdvReac Intermediate itching Verified 10/07/24 20:06 other (Patient states he cannot recall any medical history in his mother or father and is certain there was no marked cardiac history of note.) Surgical History History of right-sided carotid endarterectomy History of electrophysiologic study History of left heart catheterization Status post mitral valve annuloplasty Hx of CABG (~11/14/09) Social History household members: none Smoking Status: Former smoker how long ago did patient quit smokin years ago alcohol intake: never substance use type: does not use caffeine: No what type of physical activity do you participate in: walking frequency: daily duration: 15-30 minutes/day seatbelt use: always do you feel safe at home: Yes ROS ROS Narrative Admission Review of Systems: CONSTITUTIONAL: No weight loss, fever, chills, + weakness or fatigue. HEENT: Eyes: No visual loss, blurred vision, double vision or yellow sclerae. Ears, Nose, Throat: No hearing loss, sneezing, congestion, runny nose or sore throat. SKIN: No rash or itching, lesions, wounds. CARDIOVASCULAR: + Chronic peripheral edema. No chest pain, chest pressure or chest discomfort, palpitations, orthopnea, syncopal events. RESPIRATORY: + Chronic dyspnea, worse with exertion. No marked productive sputum, wheezing, hemoptysis. GASTROINTESTINAL: No anorexia, nausea, vomiting or diarrhea, abdominal pain, melena, BRBPR. GENITOURINARY: + BPH with chronic frequency. No dysuria, urgency or retention. NEUROLOGICAL: No headache, dizziness, syncope, paralysis, ataxia, numbness or tingling in the extremities, focal weakness, change in bowel or bladder control, seizure. MUSCULOSKELETAL: + muscle, back pain, joint pain or stiffness. HEMATOLOGIC: No anemia. + Easy bleeding/bruising. LYMPHATICS: No enlarged nodes. No history of splenectomy. PSYCHIATRIC: No history of depression or anxiety. ENDOCRINOLOGIC: No reports of sweating, cold or heat intolerance. No polyuria or polydipsia. ALLERGIES: No history of asthma, hives, eczema or rhinitis. Vital Signs Vital Signs Vital Signs: 10/07/24 20:06 10/07/24 20:58 10/07/24 22:06 Temperature 98 F Temperature Source Temporal Pulse Rate 65 62 Respiratory Rate 14 18 Respiratory Effort Normal Non-Labored Respiratory Pattern Normal Blood Pressure 118/76 123/81 H Blood Pressure Mean 90 95 Pulse Ox 98 94 Oxygen Delivery Method Room Air Room Air 10/07/24 23:11 Temperature 98.0 F Temperature Source Pulse Rate 61 Respiratory Rate 18 Respiratory Effort Respiratory Pattern Blood Pressure 110/71 Blood Pressure Mean 84 Pulse Ox 96 Oxygen Delivery Method Weight Weight: 149 lb 11.102 oz Body Mass Index (BMI) 23.4 Physical Exam Narrative Physical Examination: General: Awake, alert, oriented x 3 and cooperative, seated upright in bed in no apparent distress, complaining of lower extremity cramping. Skin: Normal color, normal turgor, no icterus, no cyanosis except significant bilateral lower extremity venous stasis skin changes, occasional stage ecchymoses. HEENT: AT/NC, EOMI, PERRLA, dry MM, no carotid bruits or JVD noted. Lungs: Mildly diminished, greater bases, appropriate effort, no rales, ronchi or wheezing. Heart: Paced; no gallop, rub audible, + SM. Abdomen: Soft, NTTP, ND, mildly hyperactive BS, no appreciated HSM. Extremities: No cyanosis, no clubbing, see skin, chronic distal edema unchanged he notes. Neurological: Patient awake, alert, oriented as noted, cognitive function intact; pupils equally reactive to light and accommodation, cranial nerves grossly normal, moving all 4 extremities, no focal deficits, strength moderately globally decreased. Psychiatric: Affect appears fatigued otherwise normal, no acute evidence of depressive or anxiety feelings. Results Lab / Micro Data 10/07/24 20:48 10/07/24 20:48 Labs: Laboratory Results - last 24 hr 10/07/24 20:48: WBC 8.0, RBC 4.50 L, Hgb 14.1, Hct 40.1, MCV 89.1, MCH 31.3, MCHC 35.2, RDW Std Deviation 42.5, RDW Coeff of Marley 13.0, Plt Count 196, MPV 9.9, Immature Gran % (Auto) 0.400, Neut % (Auto) 68.0, Lymph % (Auto) 18.6 L, Casey % (Auto) 11.1 H, Eos % (Auto) 1.5, Baso % (Auto) 0.4, Absolute Neuts (auto) 5.5, Absolute Lymphs (auto) 1.49, Nucleated RBC % 0, Sodium 131 L, Potassium 2.9 L, Chloride 88 L, Carbon Dioxide 26.0, Anion Gap 18 H, BUN 27 H, Creatinine 1.95 H, Estim Creat Clear Calc 26.84 L, Est GFR (MDRD) Non-Af 34 L, BUN/Creatinine Ratio 13.9, Glucose 118 H, Calcium 9.6, Total Bilirubin 1.04, AST 35, ALT 36, Alkaline Phosphatase 133 H, Troponin T High Sens 46 H, Total Protein 7.4, Albumin 4.3, Globulin 3.1, Albumin/Globulin Ratio 1.4 10/07/24 22:12: Urine Color Straw, Urine Clarity Clear, Urine pH 7.0, Ur Specific Baldwin 1.005, Urine Protein 100 H, Urine Glucose (UA) Normal, Urine Ketones Negative, Urine Occult Blood 25 H, Urine Nitrite Negative, Urine Bilirubin Negative, Urine Urobilinogen Normal, Ur Leukocyte Esterase Negative, Urine RBC 0-5 SEEN, Urine WBC 0-5 SEEN, Ur Squamous Epith Cells 0 SEEN, Urine Bacteria 0 SEEN, Urine Mucus 0 SEEN 10/07/24 22:45: Troponin T Hi Sens 2 Hr 46 H Micro: Microbiology 10/07/24 20:48 Mucosa - Nose SARS-CoV-2, Influenza & RSV (PCR) - Final Rhythm Strip Rhythm Strip: paced Rate: 65 Ectopy: PVC(s) Imaging Radiology Impression Brain CT 10/07/24 20:27 IMPRESSION: No acute intracranial abnormality. Reading Location: [facility] Chest X-Ray 10/07/24 21:10 IMPRESSION: No acute airspace abnormality. Reading Location: [facility] Assessment & Plan Assessment/Plan (1) LISA (acute kidney injury): (2) Acute hypokalemia: PLAN: Plan The patient is an 84 y/o M w/ PMHx: PAF, HTN, HLD, Diabetes mellitus type II, BPH with obstructive pathology, Anxiety and Depression, CKD stage II per previous GFR trending, CAD/ischemic cardiomyopathy s/p AICD/pacemaker and PCI as well as CABG 2009, Carotid disease status post right carotid endarterectomy, Valvular Heart Disease who presents to the [facility] ED on 10/07/2024 with history of significant fatigue and general malaise reporting that a couple days previous he took a single metolazone 2.5 mg thinking that potentially he had been overloaded and this was the reason but he does report that his chronic dyspnea is unchanged and is had no recent URI type symptoms nor any GI symptoms or any chest discomfort prompt eventual ED evaluation to be cautious. #1. Fatigue, malaise, Adult FTT: Will admit to [facility], will maintain on telemetry monitoring given indeterminate enzyme and continue to trend but low suspicion, will continue supplementation of potassium with initial IV supplementation started in the ED, will add oral regimen as well as noted, maintain on fall precautions, will add procalcitonin, urinalysis pending, interrogate device, PT/OT/case management consulted for discharge planning. #2. Indeterminate cardiac enzyme: EKG with paced rhythm with PVC with no acute evidence of ischemia, CXR w/ no acute cardiopulmonary findings, initial trop 46 with repeat delta 2-hour pending upon evaluation. Will place on a monitored bed to assure no acute myocardial infarction with serial cardiac enzymes and EKGs. Will supplement potassium and obtain magnesium level. If enzymes rise significantly with involve cardiology, obtain echocardiogram. Continued on NOAC therapy. #3. Acute kidney injury on CKD stage II per previous GFR trend: Secondary to acute presentation, decreased oral intake/dehydration. Admission BUN/Cr 27/1.95, GFR 34, prior baseline creatinine noted to be primarily 1.0-1.2. Will hydrate, hold nephrotoxic medications and repeat chemistry in AM. If no improvement would plan further assessment. #4. Hypokalemia: Admission K+ 2.9, magnesium level requested, supplementation given administered in the ED however will need to replete further and will add oral regimen also, repeat level in AM. #5. Hyponatremia, hypochloremia, suspected hypovolemic component secondary to diuretics including recent addition of metolazone x 1: Admission sodium 131, chloride 88, will very judiciously hydration, repeat CMP in AM. #6. CAD/ischemic cardiomyopathy, VT: Status post CABG 2009 9LIMA to LAD, SVG to 1st CFX & 2nd CFX), PCI as well as AICD/pacemaker given significantly reduced EF most recently noted 01/2024 LVEF 20%, we will continue apixaban, statin therapy, Coreg, not on DAPHNIE/ARB. Requesting device interrogation. #7. Valvular heart disease: Status post mitral valve annuloplasty, most recent echocardiogram noted 02/15/2024 with mildly dilated LV, LVEF 20%, severe global hypokinesis LV, evidence of diastolic dysfunction, mild biatrial dilatation, status post mitral valve repair, mild MVI, mild aortic stenosis. #8. Carotid disease: Status post right carotid endarterectomy, following with vascular surgeon Dr. Ly, continue apixaban, statin, hypertensive regimen, diabetic regimen as noted. #9. Diabetes mellitus type II: Will continue home insulin regimen, ADA diet, accu checks w/ ISS. #10. Hypertension: Continue home regimen including Coreg, isosorbide, temporally holding diuretics, add back once clinically appropriate, PRN hydralazine. #11. Hyperlipidemia: We will continue patient on statin therapy. #12. PAF: We will continue patient home Coreg and Eliquis regimen with adjustments for acute kidney injury as needed. #13. Anxiety and depression: We will continue patient home mirtazapine regimen with alteration as needed/hold as needed for renal function alteration. #14. BPH with obstructive pathology: We will continue patient on Flomax regimen. #15. DVT prophylaxis: Will continue apixaban with adjustments for acute kidney injury needed. #16. CODE status: Patient QUINN is his son and living will is currently in place. Discussed CODE status at length including difference between FULL code, DNR-CCA and DNR-CC status. Following discussions about the differences in these status, requested DNR-CCA, no intubation. Examples were given and CODE STATUS decision was confirmed. His grandson is present and he and himself both deny ever having discussions with his son who is his healthcare power of coating manager about these items thus recommended that they have an open form discussion. Advanced Care Planning Face to Face Time: 16 minutes. Charges/Coding Visit Charges Inpatient E&M: 95655 Init Hosp L3 Procedures Hospitalists Procedures: 83478 Advncd Care Plan 30 Min
[2024-10-07] MEDS: Potassium Chloride 10mEq/100mL 10 MEQ/100 ML IV.SOLN. 100 MEQ IV BOLUS (23:33)
[2024-10-07 23:59] LABS: Magnesium 2.4 mg/dL (1.5-2.2)
[2024-10-08 00:10] VITALS: BP 154/96; PULSE 64; RESP 16; TEMP 36.6; O2SAT 97
[2024-10-08 00:11] VITALS: BMI 22.8
[2024-10-08] MEDS: Potassium Chloride Oral Tablet 20 MEQ 40 MEQ PO ×2 (01:45→11:28)
[2024-10-08] MEDS: 0.9% Normal Saline (1000mL) 1,000 ML 75 ML IV (01:45)
[2024-10-08] MEDS: MENTHOL 226.8 GM JAR 1 APPLIC TOPICAL (01:45)
[2024-10-08 01:53] LABS: Procalcitonin 0.13 ng/mL (<=0.10)
[2024-10-08 02:03] LABS: Troponin T High Sens 4 HR 45 ng/L (<=22)
[2024-10-08 03:37] LABS: Absolute Lymphocyte Count 1.25 X10^3/uL (0.83-4.51); Absolute Neutrophil Count 5.4 X10^3/uL (2.0-7.7); Basophil# 0.02 X10^3/uL; Basophil% 0.3 % (0-1); Eosinophil# 0.07 X10^3/uL; Eosinophils% 0.9 % (0-5); Hematocrit 38.2 % (40-54); Hemoglobin 13.3 g/dL (13.0-16.5); Lymphocyte # 1.25 X10^3/ul (0.83-4.51); Lymphocyte % 16.7 % (19-41); Mean Corp Hgb Conc 34.8 g/dL (32-36); Mean Corpuscular Hgb 31.1 pg (27.0-32.0); Mean Corpuscular Volume 89.5 fL (80-94); Mean Platelet Vol. 9.4 fl (6.2-12.0); Monocyte# 0.76 X10^3/uL; Monocyte% 10.1 % (0-10); NRBC Flagged by Analyzer 0 % (0-5); Neutrophil # 5.36 X10^3/uL (2.7-7.7); Neutrophil % 71.6 % (47-70); Platelet Count 177 K/mm3 (150-450); RBC Distribution Width CV 13.1 % (11.6-14.6); RBC Distribution Width SD 42.7 fl (35.1-43.9); Red Blood Count 4.27 M/mm3 (4.6-6.2); White Blood Count 7.5 K/mm3 (4.4-11.0)
[2024-10-08 04:12] LABS: ALB/GLOB Ratio 1.3 RATIO (0.9-2.4); AST(SGOT) 34 U/L (<=37); Alanine Aminotransfer ALT/SGPT 34 U/L (<=46); Albumin, Serum 3.9 g/dL (3.4-4.8); Alkaline Phosphatase 119 U/L (40-129); Anion Gap 15 (5-15); BUN 25 mg/dL (4-19); BUN/Creat Ratio 13.5 RATIO (10-20); Calcium,Total 9.1 mg/dL (7.6-11.0); Carbon Dioxide 27.2 mmol/L (21.0-32.0); Chloride 90 mmol/L (98-108); Creatinine, Serum 1.86 mg/dL (0.70-1.20); EST Glomerular Filtration Rate 35 (>60); Estimated Creatinine Clearance 28.13 ml/min (50-250); Globulin 3.1 g/dL (2.2-4.2); Glucose 145 mg/dL (70-99); Potassium 2.9 mmol/L (3.3-5.1); Sodium Level 132 mmol/L (133-145)
[2024-10-08 06:21] VITALS: BP 95/63; PULSE 63; RESP 16; TEMP 36.6; O2SAT 98
[2024-10-08 06:23] VITALS: BMI 22.8
[2024-10-08 08:20] LABS: Bedside Glucose 224 mg/dL (74-106)
[2024-10-08 08:22] VITALS: O2SAT 94
[2024-10-08] MEDS: Insulin Lispro 100 UNIT/ML INSULN.PEN 10 UNIT SC ×2 (08:29→11:57)
[2024-10-08] MEDS: Insulin Lispro 100 UNIT/ML INSULN.PEN SC ×2 (08:29→11:57)
[2024-10-08 08:57] VITALS: BP 99/57; PULSE 69; RESP 17; TEMP 36.7; O2SAT 93
[2024-10-08] MEDS: Potassium Chloride Oral Tablet 20 MEQ PO (09:01)
[2024-10-08] MEDS: APIXABAN 5 MG TABLET PO (09:01)
[2024-10-08 12:43] LABS: Bedside Glucose 235 mg/dL (74-106)
[2024-10-08 15:15] LABS: Anion Gap 18 (5-15); BUN 27 mg/dL (4-19); BUN/Creat Ratio 14.9 RATIO (10-20); Carbon Dioxide 22.4 mmol/L (21.0-32.0); Chloride 92 mmol/L (98-108); Creatinine, Serum 1.81 mg/dL (0.70-1.20); EST Glomerular Filtration Rate 37 (>60); Estimated Creatinine Clearance 28.91 ml/min (50-250); Glucose 239 mg/dL (70-99); Potassium 3.2 mmol/L (3.3-5.1); Sodium Level 132 mmol/L (133-145)
[2024-10-08] MEDS: 0.9% Saline Lock 10 ML Syringe IV (15:41)
[2024-10-08 15:49] VITALS: BP 151/76; PULSE 68; RESP 17; TEMP 36.4; O2SAT 97
--- NOTE | 2024-10-08 15:50 | DCINST_ITS ---
Discharge Instructions Diet Discharge Diet: 1800 Calorie Control Diet DC O2, CPAP, BIPAP needs Home O2 Discharge instructions: No Dressing / Incision Discharge Activity: Return to Normal Activity Weight Bearing Status: Full weight bearing Follow Up Care Test Results: Test results from this visit will be discussed in further detail at your follow- up appointment, if applicable. Discharge Plan Admission Admit Date/Time: 10/07/24 23:21 Attending Provider: Bernabe Casey Primary Care Provider: Jose Enrique Finney Consulting Providers: Kira Lerma Discharge Orders/Prescriptions Prescriptions: New potassium chloride 20 mEq Tablet,Er Particles/Crystals 40 meq PO BID Qty: 120 0RF Continued tamsulosin 0.4 mg capsule 0.4 mg PO DAILY zolpidem [Ambien] 5 mg tablet 5 mg PO QHS PRN (Reason: insomnia) nitroglycerin [Nitrostat] 0.4 mg tablet, sublingual 0.4 mg sublingual Q5-15M PRN (Reason: chest pain) Qty: 25 3RF Rx Instructions: do not exceed 3 doses per episode multivitamin with folic acid 1 TABLET tablet 1 tab PO DAILY insulin detemir U-100 100 unit/mL (3 mL) insulin pen 32 unit SC QHS insulin lispro 100 UNIT/ML cartridge 10 unit SC TID apixaban 5 mg tablet 5 mg PO BID Qty: 180 3RF carvedilol 12.5 mg tablet 12.5 mg PO BID Qty: 180 3RF rosuvastatin 40 mg tablet 40 mg PO DAILY Qty: 90 3RF isosorbide mononitrate 30 mg tablet extended release 24 hr 30 mg PO DAILY Qty: 90 3RF furosemide 40 mg tablet 40 mg PO .COMPLEX Qty: 180 3RF Rx Instructions: 40 mg orally decrease to once daily: May need to increase back to twice daily if SOB, swelling, etc.; Discontinued cyclobenzaprine 5 mg tablet 5 mg PO TID PRN (Reason: muscle spasm) mirtazapine 15 mg tablet 15 mg PO QHS potassium chloride 20 mEq tablet,ER particles/crystals 20 meq PO BID Qty: 180 3RF Referrals / Follow Up: Jose Enrique Finney MD [Primary Care Provider] - Within 1 Week (get your BMP repeated(lab work)) Disposition Disposition (needs filled in before D/C Order can be placed): Home, Self Care
--- NOTE | 2024-10-08 16:32 | DS.PCM_ITS ---
Providers Date of Admission: 10/07/24 Date of Discharge: 10/08/24 Primary Care Physician: Dr. Jose Enrique Finney MD Reason For Visit: ADULT FFT LISA HYPOKALEMIA Diagnosis Discharge Diagnosis (1) LISA (acute kidney injury): Status: Acute Code(s): N17.9 - Acute kidney failure, unspecified (2) Acute hypokalemia: Status: Acute Code(s): E87.6 - Hypokalemia Plan Final diagnosis: #1 acute debility-secondary to hypokalemia and acute kidney injury #2 hypokalemia-second to diuretic usage #3 Acute kidney injury #4 essential hypertension #5 type 2 diabetes Medications at Discharge Home Medications multivitamin with folic acid 400 mcg tablet 1 tab PO DAILY supplement 04/11/17 insulin lispro 100 unit/mL subcutaneous cartridge 10 unit subcut TID blood sugar 03/17/18 insulin detemir U-100 100 unit/mL (3 mL) subcutaneous pen 32 unit subcut QHS diabetes 11/10/20 tamsulosin 0.4 mg capsule 0.4 mg PO DAILY prostate 11/10/20 zolpidem 5 mg tablet (Ambien) 5 mg PO QHS PRN insomnia 11/10/20 apixaban 5 mg tablet 5 mg PO BID Blood thinner #180 tabs 02/24/21 carvedilol 12.5 mg tablet 12.5 mg PO BID Heart rate/blood pressure #180 tabs 02/24/21 nitroglycerin 0.4 mg sublingual tablet (Nitrostat) 0.4 mg sublingual Q5-15M PRN chest pain #25 tabs 03/22/23 isosorbide mononitrate 30 mg tablet,extended release 24 hr 30 mg PO DAILY heart #90 tabs 06/18/24 rosuvastatin 40 mg tablet 40 mg PO DAILY cholesterol #90 tabs 06/18/24 furosemide 40 mg tablet 40 mg PO .COMPLEX diuretic #180 tabs 08/03/24 potassium chloride 20 mEq tablet,extended release(part/cryst) 40 meq (2 x 20 mEq) PO BID #120 tabs 10/08/24 Hospital Course Operations None Procedures None Summary of Care Provided Minutes Spent on Discharge: 31 Hospital Course: This 84-year-old white male was seen in the emergency room at [facility] with complaints of generalized weakness and malaise. Patient had taken an extra dose of diuretic at home a couple of days prior. Labs were obtained and showed a normal CBC, patient's creatinine and BUN was elevated, urinalysis was unremarkable, chest x-ray showed no acute airspace abnormality and brain CT showed no acute intracranial abnormality. Patient's potassium was low at 2.9, sodium was 131. Patient was placed in observation status on MedSurg 2, his ICD was interrogated and there were no untoward events noted. Patient was given potassium replacement and fluids, he was seen by PT and OT. Patient's functional status improved during his hospitalization. On 10/08/2024, patient was seen and examined: On examination he appeared in good health and spirits. Vital signs as documented. Skin warm and dry and without overt rashes. Neck without JVD, neck was supple, trachea midline, thyroid was normal. Lungs clear bilaterally, normal air movement was noted. Heart exam notable for regular rhythm, normal sounds and absence of murmurs, rubs or gallops. Abdomen unremarkable and without evidence of organomegaly, masses, or abdominal aortic enlargement. Bowel sounds are present, abdomen is not distended. Extremities nonedematous, no cyanosis was noted, no clubbing was noted. Neuro: Cranial nerves II through XII are grossly intact, no focal motor deficits were noted, sensation to light touch and pinprick intact, motor exam 5/5 throughout. Psych: Patient is alert and oriented x3, he does not appear anxious or depressed, he does not appear agitated. Patient appears stable for discharge home on 10/08/2024. Weight / BMI Weight Weight: 66.2 kg Body Mass Index (BMI) 22.8 ABG / Lab / Microbiology Data 10/08/24 03:18 10/08/24 12:38 Laboratory: Laboratory Results - last 24 hr 10/07/24 20:48: WBC 8.0, RBC 4.50 L, Hgb 14.1, Hct 40.1, MCV 89.1, MCH 31.3, MCHC 35.2, RDW Std Deviation 42.5, RDW Coeff of Marley 13.0, Plt Count 196, MPV 9.9, Immature Gran % (Auto) 0.400, Neut % (Auto) 68.0, Lymph % (Auto) 18.6 L, M reynaldo % (Auto) 11.1 H, Eos % (Auto) 1.5, Baso % (Auto) 0.4, Absolute Neuts (auto) 5.5, Absolute Lymphs (auto) 1.49, Nucleated RBC % 0, Sodium 131 L, Potassium 2.9 L, Chloride 88 L, Carbon Dioxide 26.0, Anion Gap 18 H, BUN 27 H, Creatinine 1.95 H, Estim Creat Clear Calc 26.84 L, Est GFR (MDRD) Non-Af 34 L, BUN/Creatinine Ratio 13.9, Glucose 118 H, Calcium 9.6, Magnesium 2.4 H, Total Bilirubin 1.04, AST 35, ALT 36, Alkaline Phosphatase 133 H, Troponin T High Sens 46 H, Total Protein 7.4, Albumin 4.3, Globulin 3.1, Albumin/Globulin Ratio 1.4 10/07/24 22:12: Urine Color Straw, Urine Clarity Clear, Urine pH 7.0, Ur Specific [place] 1.005, Urine Protein 100 H, Urine Glucose (UA) Normal, Urine Ketones Negative, Urine Occult Blood 25 H, Urine Nitrite Negative, Urine Bilirubin Negative, Urine Urobilinogen Normal, Ur Leukocyte Esterase Negative, Urine RBC 0-5 SEEN, Urine WBC 0-5 SEEN, Ur Squamous Epith Cells 0 SEEN, Urine Bacteria 0 SEEN, Urine Mucus 0 SEEN 10/07/24 22:45: Troponin T Hi Sens 2 Hr 46 H, Procalcitonin 0.13 H 10/08/24 01:29: Troponin T Hi Sens 4Hr 45 H 10/08/24 03:18: WBC 7.5, RBC 4.27 L, Hgb 13.3, Hct 38.2 L, MCV 89.5, MCH 31.1, MCHC 34.8, RDW Std Deviation 42.7, RDW Coeff of Marley 13.1, Plt Count 177, MPV 9.4, Immature Gran % (Auto) 0.400, Neut % (Auto) 71.6 H, Lymph % (Auto) 16.7 L, [place] % (Auto) 10.1 H, Eos % (Auto) 0.9, Baso % (Auto) 0.3, Absolute Neuts (auto) 5.4, Absolute Lymphs (auto) 1.25, Nucleated RBC % 0, Sodium 132 L, Potassium 2.9 L, Chloride 90 L, Carbon Dioxide 27.2, Anion Gap 15, BUN 25 H, Creatinine 1.86 H , Estim Creat Clear Calc 28.13 L, Est GFR (MDRD) Non-Af 35 L, BUN/Creatinine Ratio 13.5, Glucose 145 H, Calcium 9.1, Total Bilirubin 1.10, AST 34, ALT 34, Alkaline Phosphatase 119, Total Protein 7.0, Albumin 3.9, Globulin 3.1, Albumin/Globulin Ratio 1.3 10/08/24 08:00: POC Glucose 224 H 10/08/24 11:56: POC Glucose 235 H 10/08/24 12:38: Sodium 132 L, Potassium 3.2 L, Chloride 92 L, Carbon Dioxide 22.4, Anion Gap 18 H, BUN 27 H, Creatinine 1.81 H, Estim Creat Clear Calc 28.91 L, Est GFR (MDRD) Non-Af 37 L, BUN/Creatinine Ratio 14.9, Glucose 239 H, Calcium 9.0 Microbiology: Microbiology 10/07/24 20:48 Mucosa - Nose SARS-CoV-2, Influenza & RSV (PCR) - Final Radiography Diagnostic Testing: Radiology Impression Brain CT 10/07/24 20:27 IMPRESSION: No acute intracranial abnormality. Reading Location: [facility] Chest X-Ray 10/07/24 21:10 IMPRESSION: No acute airspace abnormality. Reading Location: [facility] D/C Instructions Discharge Diet: 1800 Calorie Control Diet Weight Bearing Status: Full weight bearing DC O2, CPAP, BIPAP Needs Home O2 Discharge instructions: No Meaningful Use Info Meaningful Use Meaningful Use Diagnoses (Choose all that apply): None applicable Ischemic Stroke Statin Dosing Therapy Reference: STATIN DOSE THERAPY REFERENCE: * Patients > 75 years receive moderate or high dose statin therapy. * Patients 75 years or YOUNGER should receive HIGH intensity statin dose unless contraindicated. You will be required to document reason for non-treatment if statin daily dose does not meet guidelines. HIGH DOSE STATIN THERAPY DAILY Atorvastatin > than or = to 40 mg Rosuvastatin > than or = to 20 mg Amlodipine + Atorvastatin > than or = to 2.5/40 mg Ezetimibe + Simvastatin 10/80 mg Simvastatin 80mg Discharge Plan Admission Admit Date/Time: 10/07/24 23:21 Attending Provider: Bernabe Casey Primary Care Provider: Jose Enrique Finney Consulting Providers: Kira Lerma Discharge Orders/Prescriptions Prescriptions: New potassium chloride 20 mEq Tablet,Er Particles/Crystals 40 meq PO BID Qty: 120 0RF Continued tamsulosin 0.4 mg capsule 0.4 mg PO DAILY zolpidem [Ambien] 5 mg tablet 5 mg PO QHS PRN (Reason: insomnia) nitroglycerin [Nitrostat] 0.4 mg tablet, sublingual 0.4 mg sublingual Q5-15M PRN (Reason: chest pain) Qty: 25 3RF Rx Instructions: do not exceed 3 doses per episode multivitamin with folic acid 1 TABLET tablet 1 tab PO DAILY insulin detemir U-100 100 unit/mL (3 mL) insulin pen 32 unit SC QHS insulin lispro 100 UNIT/ML cartridge 10 unit SC TID apixaban 5 mg tablet 5 mg PO BID Qty: 180 3RF carvedilol 12.5 mg tablet 12.5 mg PO BID Qty: 180 3RF rosuvastatin 40 mg tablet 40 mg PO DAILY Qty: 90 3RF isosorbide mononitrate 30 mg tablet extended release 24 hr 30 mg PO DAILY Qty: 90 3RF furosemide 40 mg tablet 40 mg PO .COMPLEX Qty: 180 3RF Rx Instructions: 40 mg orally decrease to once daily: May need to increase back to twice daily if SOB, swelling, etc.; Discontinued cyclobenzaprine 5 mg tablet 5 mg PO TID PRN (Reason: muscle spasm) mirtazapine 15 mg tablet 15 mg PO QHS potassium chloride 20 mEq tablet,ER particles/crystals 20 meq PO BID Qty: 180 3RF Referrals / Follow Up: Jose Enrique Finney MD [Primary Care Provider] - Within 1 Week (get your BMP repeated(lab work)) Disposition Disposition (needs filled in before D/C Order can be placed): Home, Self Care Charges/Coding Visit Charges Inpatient E&M: 77240 Disch Hosp >30min
--- NOTE | 2024-10-08 16:33 | CASEMGMT ---
Patient has order for discharge. RN CM in to discuss needs at discharge, grandson at bedside. Patient denies needs or help at discharge. Patient ambulating in room independently. Patient and grandson had no further questions or concerns.
== END 2024-10-08 16:32 | disposition home or self-care (01) ==
LOC: ED 23:16 → MS2 23:57
PROVIDERS: Admitting Provider Family Medicine; Emergency Provider Emergency Medicine; PCP Family Medicine; Visit Provider Internal Medicine
DX: R62.7 Adult failure to thrive (principal); I48.0 Paroxysmal atrial fibrillation; E11.22 Type 2 diabetes mellitus with diabetic chronic kidney disease; Z79.4 Long term (current) use of insulin; N17.9 Acute kidney failure, unspecified; Z87.891 Personal history of nicotine dependence; E87.1 Hypo-osmolality and hyponatremia; R41.0 Disorientation, unspecified; E78.2 Mixed hyperlipidemia; Z79.84 Long term (current) use of oral hypoglycemic drugs; Z95.810 Presence of automatic (implantable) cardiac defibrillator; N18.2 Chronic kidney disease, stage 2 (mild); R53.81 Other malaise; I25.10 Atherosclerotic heart disease of native coronary artery without angina pectoris; I12.9 Hypertensive chronic kidney disease with stage 1 through stage 4 chronic kidney disease, or unspecified chronic kidney disease; R60.0 Localized edema; I25.5 Ischemic cardiomyopathy; E87.6 Hypokalemia; Z79.899 Other long term (current) drug therapy; N40.1 Benign prostatic hyperplasia with lower urinary tract symptoms; N13.8 Other obstructive and reflux uropathy
CPT/HCPCS: 96361; 36415; 70450; 71046; 80048; 80053; 81001; 82962; 83735; 84145; 84484; 85025; 87631; 93005; 94668; 96365; 97162; 97166; 99221; 99285; A4216; G0378

== ENCOUNTER 2024-10-11 20:52 | Inpatient (IN) | payer MEDICARE, BC, SELFPAY ==
[2024-10-11 20:53] VITALS: BP 102/71; PULSE 63; RESP 18; TEMP 36.7; O2SAT 98; BMI 22.9
--- NOTE | 2024-10-11 21:26 | EKG12_ITS ---
Test Reason : DYSRHYTHMIA Blood Pressure : */* mmHG Vent. Rate : 65 BPM Atrial Rate : 65 BPM P-R Int : 352 ms QRS Dur : 230 ms QT Int : 546 ms P-R-T Axes : * -72 108 degrees QTcB Int : 567 ms Atrial-sensed ventricular-paced rhythm with prolonged AV conduction with occasional Premature ventricular complexes Abnormal ECG Confirmed by TG WALSH, AUDIE ([id number]), health editor ELROY LONDON ([id number]) on 10/15/2024 10:48:24 AM Referred By: Fei Easton Confirmed By: AUDIE MAS MD
--- NOTE | 2024-10-11 21:54 | ED.VIS.GI ---
HPI HPI - GI History of Present Illness Chief Complaint: Dizziness Informant: patient and family Narrative Narrative: Patient presents to the ED lightheaded symptoms black stool x 3 today no abdominal pain. Chronic Eliquis history of paroxysmal A-fib. He does have history of CABG AICD. No cough. No syncopal episode. Saw his PCP today, blood work performed outpatient. Last Eliquis around 3:30 PM. No history of upper or lower endoscopies in the past. Discharged 3 days ago for acute kidney injury and hypokalemia. He had a follow-up. [facility] Medical History Mixed hyperlipidemia Paroxysmal atrial fibrillation Hypokalemia due to loss of potassium Acute blood loss anemia Upper GI bleed Muscle cramps NSVT (nonsustained ventricular tachycardia) Nonrheumatic mitral valve insufficiency Atherosclerosis of [place] coronary artery of [place] heart without angina pectoris Ischemic cardiomyopathy Essential (primary) hypertension Type 2 diabetes mellitus without complications Home Medications ?Medication ?Instructions ?Recorded ?Last Taken ?Type multivitamin with folic acid 400 1 tab PO DAILY supplement 04/11/17 Unknown History mcg tablet insulin lispro 100 unit/mL 10 unit subcut TID blood sugar 03/17/18 11/12/18 07:00 History subcutaneous cartridge insulin detemir U-100 100 unit/mL 32 unit subcut QHS diabetes 11/10/20 Unknown History (3 mL) subcutaneous pen tamsulosin 0.4 mg capsule 0.4 mg PO DAILY prostate 11/10/20 Unknown History zolpidem 5 mg tablet (Ambien) 5 mg PO QHS PRN insomnia 11/10/20 Unknown History apixaban 5 mg tablet 5 mg PO BID Blood thinner #180 tabs 02/24/21 Unknown Rx carvedilol 12.5 mg tablet 12.5 mg PO BID Heart rate/blood 02/24/21 Unknown Rx pressure #180 tabs nitroglycerin 0.4 mg sublingual 0.4 mg sublingual Q5-15M PRN chest 03/22/23 Unknown Rx tablet (Nitrostat) pain #25 tabs isosorbide mononitrate 30 mg 30 mg PO DAILY heart #90 tabs 06/18/24 Unknown Rx tablet,extended release 24 hr rosuvastatin 40 mg tablet 40 mg PO DAILY cholesterol #90 tabs 06/18/24 Unknown Rx furosemide 40 mg tablet 40 mg PO .COMPLEX diuretic #180 08/03/24 Unknown Rx tabs potassium chloride 20 mEq 40 meq (2 x 20 mEq) PO BID #120 10/08/24 Unknown Rx tablet,extended release(part/cryst) tabs blood sugar diagnostic (True 10/11/24 Unknown History Metrix Glucose Test Strip) Allergy/AdvReac Type Severity Reaction Status Date / Time atorvastatin Allergy Severe myalgias, Verified 10/11/24 20:54 tongue swelling captopril Allergy Severe tongue Verified 10/11/24 20:54 swelling rivaroxaban (From Xarelto) Allergy Severe tongue Verified 10/11/24 20:54 swelling glimepiride Allergy Intermediate mouth Verified 10/11/24 20:54 blisters levofloxacin (From Levaquin) Allergy Intermediate leg pain Verified 10/11/24 20:54 dapagliflozin (From Farxiga) Allergy Unknown Rash Verified 10/11/24 20:54 azithromycin (From Zithromax) AdvReac Severe blisters Verified 10/11/24 20:54 metolazone AdvReac Severe Rash/Itchin Verified 10/11/24 20:54 g pravastatin AdvReac Intermediate itching Verified 10/11/24 20:54 Surgical History History of right-sided carotid endarterectomy History of electrophysiologic study History of left heart catheterization Status post mitral valve annuloplasty Hx of CABG (~11/14/09) Social History household members: none Smoking Status: Former smoker how long ago did patient quit smokin years ago alcohol intake: never substance use type: does not use caffeine: No what type of physical activity do you participate in: walking frequency: daily duration: 15-30 minutes/day seatbelt use: always do you feel safe at home: Yes ROS ROS ED Constitutional Constitutional ED: Denies chills, fever(s) or sweats ENT ENT ED: Denies sore throat Cardiovascular Cardiovascular: Denies chest pain, leg edema, palpitations or racing heartbeat Respiratory/Chest Respiratory/Chest: Denies cough, dyspnea or dyspnea on exertion Gastrointestinal Gastrointestinal: Reports melena; Denies abdominal pain, diarrhea, nausea or vomiting Genitourinary Genitourinary ED: Denies dysuria, hematuria or urinary frequency Musculoskeletal Musculoskeletal: Denies back pain, extremity pain or neck pain Integumentary Denies rash or wounds Neurologic Neurologic: Denies headache(s), paresthesias or weakness EXAM Physical Exam Const Vital Signs: 10/11/24 20:53 10/11/24 21:53 10/11/24 21:57 Temperature 98.1 F Temperature Source Oral Pulse Rate 63 Pulse Rate [Lying] 63 Pulse Rate [Sitting (for 1 minute prior to obtaining)] 75 Respiratory Rate 18 Blood Pressure 102/71 Blood Pressure [Lying] 106/62 Blood Pressure [Sitting (for 1 minute prior to obtaining)] 86/55 L Blood Pressure Mean 81 Blood Pressure Mean [Lying] 76 Blood Pressure Mean [Sitting (for 1 minute prior to obtaining)] 65 Pulse Ox 98 Oxygen Delivery Method Room Air Room Air Positive well nourished and well developed General Appearance ED: well developed and NAD HEENT Reports moist mucous membranes normocephalic and atraumatic Eyes General Eye ED: Yes normal appearance of both eyes; Negative for pale conjunctiva Neck full ROM Chest Wall Chest: Negative for tenderness Resp normal respiratory effort and normal air movement Effort and Inspection: symmetric chest movement; Negative for respiratory distress Cardio regular rate, regular rhythm and no murmurs Peripheral Pulses: pulses 2+ throughout GI normal to inspection, nondistended, normoactive bowel sounds and non-tender GI Narrative: Rectal exam: Dark tarry stools liquid, guaiac pending. Palpation: Negative for guarding or rebound tenderness present Extremity normal to inspection General Extremety ED: Negative for edema or tenderness General Extremity: Negative for edema Neuro oriented x3 and no sensory deficits noted Sensorium / Orientation: awake and alert Skin no rashes or lesions noted and no wounds MDM MDM MDM Narrative Medical decision making narrative: Interventions / MDM: Differential diagnosis: Upper GI bleed, chronic anticoagulation, orthostasis Diagnosis considered but do not suspect: N/A My EKG interpretation: Paced rhythm rate of 65, no acute findings. Imaging independently reviewed and interpreted by myself: N/A External documents reviewed: Labs outpatient hemoglobin 11.1, 3 days ago hemoglobin 13.3. BUN 86 creatinine 2.15 today. 3 days ago BUN 27, creatinine 1.85. Test considered but not ordered:N/A ED course: Patient black liquid stools on rectal exam. Evaluation hemoglobin difference of 2 units from 3 days ago. Labs were redrawn to check, Hemoccult sent. IV Protonix ordered. EKG and orthostatics ordered. I spoke with GI Dr. Chavez, will start Protonix drip. Will plan to admit for upper scope tomorrow. 2229: Hemoglobin stable at 11. Orthostatics was positive he is ordered for 1 L of normal saline. Hemoccult returned negative. Further discussion with the patient, he did eat a bunch of beets yesterday. Explanation for the black stools. I did we discussed with Dr. Chavez, will stop the Protonix drip will check H&H's. With him being orthostatic positive with hemoglobin difference of 2 units, will still plan to admit to recheck H&H's. 2249: I spoke with house with Dr. Cedeno, we reviewed the labs his BUN is up, therefore would like to restart the Protonix drip as he is on chronic anticoagulation medicines. This was restarted. Will admit him to PCU. Re-evaluation: stable Disposition discussed with patient/family/significant other: Patient Case discussed with consulting clinician: Gastroenterology, hospitalist This note was generated with [employer] dictation software. It may contain incorrect words, spelling, and punctuation that were not noted in checking the note before signing. Lab Data Attestation: I reviewed the patient's lab results. Labs: Laboratory Results - last 24 hr 10/11/24 21:09 WBC 12.2 H RBC 3.46 L Hgb 11.0 L Hct 31.9 L MCV 92.2 MCH 31.8 MCHC 34.5 RDW Std Deviation 45.6 H RDW Coeff of Marley 13.5 Plt Count 199 MPV 10.3 Immature Gran % (Auto) 0.500 Neut % (Auto) 81.2 H Lymph % (Auto) 11.3 L [place] % (Auto) 6.9 Eos % (Auto) 0.0 Baso % (Auto) 0.1 Absolute Neuts (auto) 9.9 H Absolute Lymphs (auto) 1.38 Nucleated RBC % 0 PT 24.5 H INR 2.2 APTT 36.8 H Sodium 133 Potassium 4.1 Chloride 94 L Carbon Dioxide 22.4 Anion Gap 17 H BUN 84 H Creatinine 2.22 H Estim Creat Clear Calc 23.57 L Est GFR (MDRD) Non-Af 29 L BUN/Creatinine Ratio 37.7 H Glucose 261 H Calcium 9.4 Discharge Plan Triage Chief Complaint: Dizziness Other Complaint: GI Bleed ED Provider: Fei Easton Dx/Rx/DC Orders Clinical Impression: GI bleed, Chronic anticoagulation, Orthostasis Prescriptions: No Action tamsulosin 0.4 mg capsule 0.4 mg PO DAILY zolpidem [Ambien] 5 mg tablet 5 mg PO QHS PRN (Reason: insomnia) nitroglycerin [Nitrostat] 0.4 mg tablet, sublingual 0.4 mg sublingual Q5-15M PRN (Reason: chest pain) Qty: 25 3RF Rx Instructions: do not exceed 3 doses per episode multivitamin with folic acid 1 TABLET tablet 1 tab PO DAILY insulin detemir U-100 100 unit/mL (3 mL) insulin pen 32 unit SC QHS insulin lispro 100 UNIT/ML cartridge 10 unit SC TID potassium chloride 20 mEq Tablet,Er Particles/Crystals 40 meq PO BID Qty: 120 0RF (DME) True Metrix Glucose Test Strip Strip 1 strip MISCELLANEOUS TID apixaban 5 mg tablet 5 mg PO BID Qty: 180 3RF carvedilol 12.5 mg tablet 12.5 mg PO BID Qty: 180 3RF rosuvastatin 40 mg tablet 40 mg PO DAILY Qty: 90 3RF isosorbide mononitrate 30 mg tablet extended release 24 hr 30 mg PO DAILY Qty: 90 3RF furosemide 40 mg tablet 40 mg PO .COMPLEX Qty: 180 3RF Rx Instructions: 40 mg orally decrease to once daily: May need to increase back to twice daily if SOB, swelling, etc.; Primary Care Provider: Jose Enrique Finney Referrals: Jose Enrique Finney MD [Primary Care Provider] - Print Language: Ukrainian Disposition Disposition: Acute Care Hospital [facility]
[2024-10-11 21:55] LABS: Absolute Lymphocyte Count 1.38 X10^3/uL (0.83-4.51); Absolute Neutrophil Count 9.9 X10^3/uL (2.0-7.7); Basophil# 0.01 X10^3/uL; Basophil% 0.1 % (0-1); Hematocrit 31.9 % (40-54); Lymphocyte # 1.38 X10^3/ul (0.83-4.51); Lymphocyte % 11.3 % (19-41); Mean Corp Hgb Conc 34.5 g/dL (32-36); Mean Corpuscular Hgb 31.8 pg (27.0-32.0); Mean Corpuscular Volume 92.2 fL (80-94); Mean Platelet Vol. 10.3 fl (6.2-12.0); Monocyte# 0.84 X10^3/uL; Monocyte% 6.9 % (0-10); NRBC Flagged by Analyzer 0 % (0-5); Neutrophil % 81.2 % (47-70); Platelet Count 199 K/mm3 (150-450); RBC Distribution Width CV 13.5 % (11.6-14.6); RBC Distribution Width SD 45.6 fl (35.1-43.9); Red Blood Count 3.46 M/mm3 (4.6-6.2); White Blood Count 12.2 K/mm3 (4.4-11.0)
[2024-10-11 21:57] VITALS: BP 106/62; BP 86/55; PULSE 63; PULSE 75
[2024-10-11] MEDS: Pantoprazole Sodium 80 MG in 0.9% Normal Saline (50mL Bag) 15 ML 420 MG IV BOLUS (22:04)
[2024-10-11 22:06] LABS: Partial Thromboplast Time 36.8 Seconds (24.1-36.2)
[2024-10-11] MEDS: Pantoprazole Sodium 80 MG in 0.9% Normal Saline (100mL Bag) 80 ML 10 MG CONT INF (22:09)
[2024-10-11 22:10] LABS: International Normalized Ratio 2.2; Prothrombin Time (Protime)PT. 24.5 SECONDS (11.7-14.9)
[2024-10-11 22:17] LABS: Anion Gap 17 (5-15); BUN 84 mg/dL (4-19); BUN/Creat Ratio 37.7 RATIO (10-20); Calcium,Total 9.4 mg/dL (7.6-11.0); Carbon Dioxide 22.4 mmol/L (21.0-32.0); Chloride 94 mmol/L (98-108); Creatinine, Serum 2.22 mg/dL (0.70-1.20); EST Glomerular Filtration Rate 29 (>60); Estimated Creatinine Clearance 23.57 ml/min (50-250); Glucose 261 mg/dL (70-99); Potassium 4.1 mmol/L (3.3-5.1); Sodium Level 133 mmol/L (133-145)
[2024-10-11] MEDS: 0.9% Normal Saline (1000mL) 1,000 ML 999 ML IV (22:33)
--- NOTE | 2024-10-11 22:49 | PCM.HP.STD ---
[facility] - General General Date of Admission: 10/11/24 Date of Service: 10/11/24 Chief Complaint: Dizziness and Melena with Watery Black Stools. HPI Narrative JUAN DAVID HERNÁNDEZ, is a 84 M with a past medical history of essential hypertension; on carvedilol and furosemide, hyperlipidemia; on rosuvastatin, DM-2; of unknown control on insulin detemir 32U sq HS plus insulin lispro 10U TID, history of PAF; on apixaban, CAD; s/p CABG (2009), ischemic cardiomyopathy with LVEF ~20% (01/2024); s/p AICD-PPM on ISMO and prn SL NTG, history of NSVT; s/p EP study (2006), history of nonrheumatic mitral valve insufficiency; s/p 30 mm [place] mitral valve annuloplasty, history of carotid stenosis; s/p Right carotid endarterectomy with bovine patch angioplasty (2020) followed by Dr. Ly of vascular surgery, CKD; stage II, BPH; on tamsulosin, chronic insomnia; on prn zolpidem q. HS, history of depression with anxiety; currently not on treatment, OA, DNR-CCA; with no intubation CODE STATUS and recent admission here from October 07, 2024 to October 08, 2024 with chief complaint of fatigue and malaise with patient subsequently diagnosed with adult [id number] complicated by LISA; in the setting of stage II CKD with hypokalemia of 2.9 mmol/L and mild hyponatremia of 131 mmol/L who presents to [facility] ER complaining of dizziness and melena with watery black stools. Mr. Hernández reports his symptoms began approximately 1 day prior to admission after he ate a jar of vinegar beets with subsequent black stools and intermittent dizziness. He then went to see his PCP earlier today and had blood work performed as an outpatient that revealed evidence of upper GI bleeding with hemoglobin dropping to 11.1 g/dL (down from 13.3 g/dL on October 08, 2024) in addition to BUN of 84 mg/dL with serum creatinine of 2.22 mg/dL (up from his baseline of 27 mg/dL and 1.81 mg/dL on October 08, 2024) with corresponding symptomatic hypotension so he was directed to come to the ER for further evaluation and treatment. He states he last took his Eliquis at 3:30 PM today. There was no report of fever, chills, sore throat, runny nose, chest pain, lower extremity edema, shortness of breath, cough, dysuria, hematuria, back pain or headache. In the ER he was noted to have severe hypotension of 86/55 mmHg shortly after admission due to suspected UGIB with ABLA likely due to Adverse Drug Reaction to apixaban with elevated INR of 2.2 present on admission. He was then admitted to the PCU for ongoing care for a stay that is expected to extend beyond 2 midnights. [facility] Medical History (Updated 10/12/24 @ 00:[address] Germán Landeros, DO) Mixed hyperlipidemia Paroxysmal atrial fibrillation Hypokalemia due to loss of potassium Acute blood loss anemia Upper GI bleed Muscle cramps NSVT (nonsustained ventricular tachycardia) Nonrheumatic mitral valve insufficiency Atherosclerosis of enterprise coronary artery of enterprise heart without angina pectoris Ischemic cardiomyopathy Essential (primary) hypertension Type 2 diabetes mellitus without complications Home Medications ?Medication ?Instructions ?Recorded ?Last Taken ?Type multivitamin with folic acid 400 1 tab PO DAILY supplement 04/11/17 Unknown History mcg tablet insulin lispro 100 unit/mL 10 unit subcut TID blood sugar 03/17/18 11/12/18 07:00 History subcutaneous cartridge insulin detemir U-100 100 unit/mL 32 unit subcut QHS diabetes 11/10/20 Unknown History (3 mL) subcutaneous pen tamsulosin 0.4 mg capsule 0.4 mg PO DAILY prostate 11/10/20 Unknown History zolpidem 5 mg tablet (Ambien) 5 mg PO QHS PRN insomnia 11/10/20 Unknown History apixaban 5 mg tablet 5 mg PO BID Blood thinner #180 tabs 02/24/21 Unknown Rx carvedilol 12.5 mg tablet 12.5 mg PO BID Heart rate/blood 02/24/21 Unknown Rx pressure #180 tabs nitroglycerin 0.4 mg sublingual 0.4 mg sublingual Q5-15M PRN chest 03/22/23 Unknown Rx tablet (Nitrostat) pain #25 tabs isosorbide mononitrate 30 mg 30 mg PO DAILY heart #90 tabs 06/18/24 Unknown Rx tablet,extended release 24 hr rosuvastatin 40 mg tablet 40 mg PO DAILY cholesterol #90 tabs 06/18/24 Unknown Rx furosemide 40 mg tablet 40 mg PO .COMPLEX diuretic #180 08/03/24 Unknown Rx tabs potassium chloride 20 mEq 40 meq (2 x 20 mEq) PO BID #120 10/08/24 Unknown Rx tablet,extended release(part/cryst) tabs blood sugar diagnostic (True 10/11/24 Unknown History Metrix Glucose Test Strip) Allergy/AdvReac Type Severity Reaction Status Date / Time atorvastatin Allergy Severe myalgias, Verified 10/11/24 20:54 tongue swelling captopril Allergy Severe tongue Verified 10/11/24 20:54 swelling rivaroxaban (From Xarelto) Allergy Severe tongue Verified 10/11/24 20:54 swelling glimepiride Allergy Intermediate mouth Verified 10/11/24 20:54 blisters levofloxacin (From Levaquin) Allergy Intermediate leg pain Verified 10/11/24 20:54 dapagliflozin (From Farxiga) Allergy Unknown Rash Verified 10/11/24 20:54 azithromycin (From Zithromax) AdvReac Severe blisters Verified 10/11/24 20:54 metolazone AdvReac Severe Rash/Itchin Verified 10/11/24 20:54 g pravastatin AdvReac Intermediate itching Verified 10/11/24 20:54 Surgical History History of right-sided carotid endarterectomy History of electrophysiologic study History of left heart catheterization Status post mitral valve annuloplasty Hx of CABG (~11/14/09) Social History household members: none Smoking Status: Former smoker how long ago did patient quit smokin years ago alcohol intake: never substance use type: does not use caffeine: No what type of physical activity do you participate in: walking frequency: daily duration: 15-30 minutes/day seatbelt use: always do you feel safe at home: Yes ROS ROS Narrative Review of Systems: Constitutional: Patient denies fever or chills. Eyes: Patient denies changes vision or discharge from eyes. ENT: Patient denies runny nose, sore throat or ear pain. Resp: Patient denies shortness of breath or cough. CV: Patient admits to lightheadedness with corresponding hypotension as per HPI but he denies chest pain, palpitations, heart racing or lower extremity edema. GI: Patient admits to watery melanotic stool as per HPI but he denies abdominal pain, nausea, vomiting or constipation. : Patient denies dysuria, hematuria or urinary frequency. MSK: Patient denies arthralgias or myalgias. Skin: Patient denies rash, abscess, wounds or jaundice. Psych: Patient denies symptoms of uncontrolled depression or anxiety. Neuro: Patient denies headache, paresthesias or focal neurologic deficits. Allergy: Patient denies lip swelling, tongue swelling or urticaria. Hematology: Patient admits to watery melanotic stools as per HPI. Endocrinology: Patient denies polyuria, polydipsia or polyphagia. 14 point ROS otherwise negative except for positives noted above in HPI. Vital Signs Vital Signs Vital Signs: 10/11/24 20:53 10/11/24 21:53 10/11/24 21:57 Temperature 98.1 F Temperature Source Oral Pulse Rate 63 Pulse Rate [Lying] 63 Pulse Rate [Sitting (for 1 minute prior to obtaining)] 75 Respiratory Rate 18 Blood Pressure 102/71 Blood Pressure [Lying] 106/62 Blood Pressure [Sitting (for 1 minute prior to obtaining)] 86/55 L Blood Pressure Mean 81 Blood Pressure Mean [Lying] 76 Blood Pressure Mean [Sitting (for 1 minute prior to obtaining)] 65 Pulse Ox 98 Oxygen Delivery Method Room Air Room Air Weight Weight: 146 lb 9.6 oz Body Mass Index (BMI) 22.9 Physical Exam Const alert, oriented x3, no apparent distress and average body habitus Constitutional Narrative: Patient appears chronically ill. General Appearance: cooperative HEENT normocephalic, head/scalp atraumatic, hearing grossly normal bilaterally and moist oral mucous membranes Eyes PERRL and EOMs intact bilaterally Neck no lymphadenopathy and supple Resp normal respiratory effort, no retractions, no use of accessory muscles and clear to auscultation bilaterally Cardio regular rate and regular rhythm GI normal to inspection, nondistended, normoactive bowel sounds, soft to palpation, non-tender and non-distended Extremity normal to inspection, full ROM and no clubbing, cyanosis or edema Skin Skin Narrative: Patient denies rash, abscess, wounds or jaundice. Neuro oriented x3, CN's II-XII intact bilaterally, moves all extremities and no focal motor deficits Sensorium / Orientation: awake, alert, oriented to person, oriented to place and oriented to time Speech: speech normal Psych affect normal Results Medical Records Data Attestation: I reviewed the patient's medical records Lab / Micro Data Attestation: I reviewed the patient's lab results. 10/11/24 21:09 10/11/24 21:09 Labs: Laboratory Results - last 24 hr 10/11/24 21:09: WBC 12.2 H, RBC 3.46 L, Hgb 11.0 L, Hct 31.9 L, MCV 92.2, MCH 31.8, MCHC 34.5, RDW Std Deviation 45.6 H, RDW Coeff of Marley 13.5, Plt Count 199, MPV 10.3, Immature Gran % (Auto) 0.500, Neut % (Auto) 81.2 H, Lymph % (Auto) 11.3 L, [place] % (Auto) 6.9, Eos % (Auto) 0.0, Baso % (Auto) 0.1, Absolute Neuts (auto) 9.9 H, Absolute Lymphs (auto) 1.38, Nucleated RBC % 0, PT 24.5 H, INR 2.2, APTT 36.8 H, Sodium 133, Potassium 4.1, Chloride 94 L, Carbon Dioxide 22.4, Anion Gap 17 H, BUN 84 H, Creatinine 2.22 H, Estim Creat Clear Calc 23.57 L, Est GFR (MDRD) Non-Af 29 L, BUN/Creatinine Ratio 37.7 H, Glucose 261 H, Calcium 9.4 Micro: Microbiology 10/11/24 21:35 Stool Stool Occult Blood (MADELEINE) - Final Assessment & Plan Assessment/Plan (1) Melanotic stools: (2) Elevated BUN: (3) LISA (acute kidney injury): (4) Chronic kidney disease (CKD), stage II (mild): (5) Severe hypotension: PLAN: Plan 1. UGIB with Melanotic Stools and ABLA - Admit to PCU. Keep strict NPO and continue IV pantoprazole drip. Give ondansetron IV prn for nausea and vomiting. Finally, we will consult gastroenterology to see this patient on rounds in the AM for recommendations regarding EGD in the AM with help appreciated in advance. 2. Adverse drug Reaction to apixaban triggering #1 - Hold apixaban until further notice. 3. Severe Hypotension of 86/55 mmHg noted shortly after admission with LISA in the setting of CKD; stage II due to #1 & #2 - Volume resuscitate and recheck renal indices daily to follow trend. 4. Recent admission here from October 07, 2024 to October 08, 2024 with chief complaint of fatigue and malaise with patient subsequently diagnosed with adult [id number] complicated by LISA; in the setting of CKD; stage II with hypokalemia of 2.9 mmol/L and mild hyponatremia of 131 mmol/L adding to the medical complexity of #1 - #3 - Noted. 5. Essential Hypertension; on carvedilol and furosemide - Hold scheduled antihypertensives in light of bleeding and hypotension outlined in #1 & #3. 6. Hyperlipidemia; on rosuvastatin - Restart statin after EGD when okay with GI. 7. DM-2; of unknown control on insulin detemir 32U sq HS plus insulin lispro 10U TID - Keep NPO. FSBS q. 6 hours with lowest-intensity SSI. Check HgbA1c to objectively assess quality of diabetic control. 8. History of PAF; on apixaban - Hold apixaban until further notice. 9. CAD; s/p CABG (2009) - Noted. 10. Ischemic cardiomyopathy with LVEF ~20% (01/2024); s/p AICD-PPM on ISMO and prn SL NTG - Hold ISMO and SL NTG with hypotension noted on admission. 11. History of NSVT; s/p EP study (2006) - Noted. 12. History of nonrheumatic mitral valve insufficiency; s/p 30 mm [place] mitral valve annuloplasty - Stable. 13. History of carotid stenosis; s/p Right carotid endarterectomy with bovine patch angioplasty (2020) followed by Dr. Ly of vascular surgery - Noted. 14. BPH; on tamsulosin - Resume tamsulosin after EGD when okay with GI. 15. Chronic insomnia; on prn zolpidem q. HS - Noted. 16. History of depression with anxiety; currently not on treatment - Stable. 17. OA - Stable. 18. DNR-CCA; with no intubation CODE STATUS - Noted. 19. DVT prophylaxis - SCD's only in light of #1. Total time: Approximately (but not less than) 75 minutes. Charges/Coding Visit Charges Inpatient E&M: 94892 Init Hosp L3
[2024-10-11 23:00] VITALS: BP 122/59; PULSE 67; RESP 15; O2SAT 95
[2024-10-11 23:01] VITALS: BP 122/59; PULSE 62; RESP 16; TEMP 36.7; O2SAT 95
[2024-10-11 23:55] LABS: Magnesium 2.5 mg/dL (1.5-2.2)
[2024-10-12] VITALS (12 sets, daily range): BP systolic 100–129; BP diastolic 55–68; PULSE 59–70; RESP 16–18; TEMP 36.2–37; O2SAT 94–100; BMI 22.7
[2024-10-12] MEDS: 0.9% Normal Saline (1000mL) 1,000 ML 100 ML IV (00:03)
[2024-10-12] MEDS: Insulin Lispro 100 UNIT/ML INSULN.PEN SC (00:22)
[2024-10-12 00:25] LABS: Bedside Glucose 252 mg/dL (74-106)
[2024-10-12 03:52] LABS: Absolute Lymphocyte Count 1.45 X10^3/uL (0.83-4.51); Absolute Neutrophil Count 6.9 X10^3/uL (2.0-7.7); Basophil# 0.03 X10^3/uL; Basophil% 0.3 % (0-1); Eosinophil# 0.01 X10^3/uL; Eosinophils% 0.1 % (0-5); Hematocrit 26.2 % (40-54); Hemoglobin 8.9 g/dL (13.0-16.5); Lymphocyte # 1.45 X10^3/ul (0.83-4.51); Lymphocyte % 15.6 % (19-41); Mean Corpuscular Hgb 31.7 pg (27.0-32.0); Mean Corpuscular Volume 93.2 fL (80-94); Mean Platelet Vol. 10.6 fl (6.2-12.0); Monocyte# 0.87 X10^3/uL; Monocyte% 9.3 % (0-10); NRBC Flagged by Analyzer 0 % (0-5); Neutrophil # 6.92 X10^3/uL (2.7-7.7); Neutrophil % 74.4 % (47-70); Platelet Count 162 K/mm3 (150-450); RBC Distribution Width CV 13.4 % (11.6-14.6); RBC Distribution Width SD 45.8 fl (35.1-43.9); Red Blood Count 2.81 M/mm3 (4.6-6.2); White Blood Count 9.3 K/mm3 (4.4-11.0)
[2024-10-12 04:40] LABS: Hemoglobin A1c 9.6 % (<=5.6)
[2024-10-12 04:46] LABS: ALB/GLOB Ratio 1.5 RATIO (0.9-2.4); AST(SGOT) 31 U/L (<=37); Alanine Aminotransfer ALT/SGPT 34 U/L (<=46); Albumin, Serum 3.2 g/dL (3.4-4.8); Alkaline Phosphatase 76 U/L (40-129); Anion Gap 12 (5-15); BUN 82 mg/dL (4-19); Calcium,Total 8.4 mg/dL (7.6-11.0); Carbon Dioxide 22.8 mmol/L (21.0-32.0); Chloride 102 mmol/L (98-108); Creatinine, Serum 2.04 mg/dL (0.70-1.20); EST Glomerular Filtration Rate 32 (>60); Estimated Creatinine Clearance 25.57 ml/min (50-250); Globulin 2.2 g/dL (2.2-4.2); Glucose 206 mg/dL (70-99); Potassium 3.3 mmol/L (3.3-5.1); Protein, Total 5.4 g/dL (5.9-8.4); Sodium Level 137 mmol/L (133-145); Total Bilirubin 0.69 mg/dL (0.00-1.30)
[2024-10-12 05:19] LABS: Phosphorus 2.9 mg/dL (2.7-4.5)
[2024-10-12 06:37] LABS: Bedside Glucose 151 mg/dL (74-106)
[2024-10-12] MEDS: Pantoprazole Sodium 80 MG in 0.9% Normal Saline (100mL Bag) 80 ML 10 MG CONT INF ×2 (08:28→20:13)
--- NOTE | 2024-10-12 09:00 | PCM.PN.HOSP ---
Subjective Subjective No issues overnight, hemoglobin is dropped to 8.9 today. Objective Data Objective Data Vital Signs: Vital Signs Temp Pulse Resp BP Pulse Ox O2 Del Method 97.3 F L 61 18 100/62 98 Room Air 10/12/24 03:07 10/12/24 03:07 10/12/24 03:07 10/12/24 03:07 10/12/24 03:07 10/12/24 03:07 Oxygen Delivery Method Room Air Weight: 145 lb 4.554 oz Body Mass Index (BMI) 22.7 Intake & Output: Intake and Output for Last 24 Hours 10/11/24 10/12/24 10/13/24 03:59 03:59 03:59 Intake Total 1035 / 1035 Balance 1035 / 1035 Lab / Micro Data 10/12/24 03:06 10/12/24 03:06 Labs: Laboratory Results - last 24 hr 10/11/24 21:09: WBC 12.2 H, RBC 3.46 L, Hgb 11.0 L, Hct 31.9 L, MCV 92.2, MCH 31.8, MCHC 34.5, RDW Std Deviation 45.6 H, RDW Coeff of Marley 13.5, Plt Count 199, MPV 10.3, Immature Gran % (Auto) 0.500, Neut % (Auto) 81.2 H, Lymph % (Auto) 11.3 L, [place] % (Auto) 6.9, Eos % (Auto) 0.0, Baso % (Auto) 0.1, Absolute Neuts (auto) 9.9 H, Absolute Lymphs (auto) 1.38, Nucleated RBC % 0, PT 24.5 H, INR 2.2, APTT 36.8 H, Sodium 133, Potassium 4.1, Chloride 94 L, Carbon Dioxide 22.4, Anion Gap 17 H, BUN 84 H, Creatinine 2.22 H, Estim Creat Clear Calc 23.57 L, Est GFR (MDRD) Non-Af 29 L, BUN/Creatinine Ratio 37.7 H, Glucose 261 H, Calcium 9.4, Magnesium 2.5 H 10/12/24 00:07: POC Glucose 252 H 10/12/24 03:06: WBC 9.3, RBC 2.81 L, Hgb 8.9 L, Hct 26.2 L, MCV 93.2, MCH 31.7, MCHC 34.0, RDW Std Deviation 45.8 H, RDW Coeff of Marley 13.4, Plt Count 162, MPV 10.6, Immature Gran % (Auto) 0.300, Neut % (Auto) 74.4 H, Lymph % (Auto) 15.6 L, [place] % (Auto) 9.3, Eos % (Auto) 0.1, Baso % (Auto) 0.3, Absolute Neuts (auto) 6.9, Absolute Lymphs (auto) 1.45, Nucleated RBC % 0, Sodium 137, Potassium 3.3, Chloride 102, Carbon Dioxide 22.8, Anion Gap 12, BUN 82 H, Creatinine 2.04 H, Estim Creat Clear Calc 25.57 L, Est GFR (MDRD) Non-Af 32 L, BUN/Creatinine Ratio 40.0 H, Glucose 206 H, Hemoglobin A1c 9.6, Calcium 8.4, Phosphorus 2.9, Total Bilirubin 0.69, AST 31, ALT 34, Alkaline Phosphatase 76, Total Protein 5.4 L, Albumin 3.2 L, Globulin 2.2, Albumin/Globulin Ratio 1.5, TSH 1.950 10/12/24 06:06: POC Glucose 151 H Micro: Microbiology 10/11/24 21:35 Stool Stool Occult Blood (MADELEINE) - Final Physical Exam Narrative General: Alert, Oriented x3, Cooperative, No apparent distress HEENT: Atraumatic, PERRLA, EOMI, Normocephalic Oral: Moist Mucosa Neck: Supple, No JVD Lungs: Diminished, Normal air movement, No rhonchi, No wheeze, No rales Cardiovascular: Regular rate, Regular Rhythm, Normal S1, Normal S2, No murmurs Abdomen: Soft, Non Tender, Non-Distended, No Hepato-splenomegaly Extremities: No edema, Capillary Refill Less than 3 Seconds Skin: No rashes, No breakdown Musculoskeletal: No Tenderness to Palpation of Joints or Extremities Neurological: No focal neurological deficits, Motor Exam 5/5 strength throughout, Sensory exam intact to light touch and pain Psych/Mental Status: Normal Affect, Appropriate Assessment & Plan Assessment/Plan (1) Melanotic stools: (2) LISA (acute kidney injury): PLAN: Plan 1. Acute blood loss anemia secondary to a GI bleed worsened by Eliquis use/LISA ? Continue with PPI ? Make n.p.o. ? Will consult gastroenterology for EGD and possible colonoscopy ? Renal functions improving with fluid, transfusion threshold is less than 8 given his coronary artery disease 2. Essential HTN/HLD/CAD status post CABG/paroxysmal A-fib/chronic systolic CHF ? Will hold blood pressure medications ? Will continue to monitor make adjustments as necessary ? Continue to hold Eliquis given his GI bleeding ? Echo in 2023 with an EF of 20% 3. DM2 ? Accu-Cheks ACHS ? Insulin coverage ? Will monitor and make adjustments as necessary ? A1c of 9.6 4. BPH ? Can resume Flomax once able to take p.o. DVT: SCDs Charges/Coding Visit Charges Inpatient E&M: 46404 Subs Hosp L2
--- NOTE | 2024-10-12 10:34 | CASEMGMT ---
RN CM SHIPYARD PAINTER CM?to room to meet with patient for initial transition planning/care coordination assessment. RN CM?introduced self and role at [facility]. Pt voices understanding and consents to assessment?at this time. Pt resting in bed in no distress at this time. Pt is A/O at this time and answers all questions appropriately. Care providers, pharmacy, and demographics verified/updated at this time. Strata:?3 PCP: Dr Finney Specialists: Dr Rios-cardiology Preferred Pharmacy: [facility] Insurance: Leonora ELI Prescription Benefit: Yes Living Will/HPOA: Pt has both LW and HCPOA, which are on-file @ [facility]. His is listed as primary agent. ~ 5 yrs ago. Pt's son, Geovany, is listed as 1st alternative. LNOK: Son, Geovany. Daughter. Living Arrangements: Lives alone in one-story home w/2 steps to enter, he states he does okay on the stairs. Son, Geovany, lives in mobile home on same property. Pt states he is indep w/ADL's and IADL's and manages his own medications/appts, gets his own groceries. Transportation:?Pt states drives self and states no transportation concerns at this time. Son or GS will take him home @ [facility]. DME:States has the following DME: functioning glucometer w/supplies and states he has all insulin, needles, and supplies needed. He has other DME available that was his late 's, but does not use them (walker, cane, shower chair). Pt states no need for further DME at this time. HHC/SNF: No hx SNF. Has had HHC in the past--a few yrs ago. Declines need for HHC or OP therapy. Pt wishes to return home and states has no concerns with going home at time of discharge. Advised pt to ask for CM?if any questions/concerns/needs arise. Voices understanding. PLAN: Home Robert MOTTA RN, CM
[2024-10-12 12:30] LABS: Bedside Glucose 174 mg/dL (74-106)
--- NOTE | 2024-10-12 14:49 | OP.EGD_ITS ---
Patient Name: Baljeet Hogan Procedure Date: 10/12/2024 1:00 PM Date of : 1940 Age: 84 Procedure: Upper GI endoscopy Indications: Acute post hemorrhagic anemia, Melena Providers: Checo Chavez DO Medicines: Monitored Anesthesia Care Patient Profile: This is an 84 year old male. Refer to note in patient chart for documentation of history and physical. Patient has symptoms of acute epigastric abdominal pain. Complications: No immediate complications. Procedure: Pre-Anesthesia Assessment: - Prior to the procedure, a History and Physical was performed, and patient medications and allergies were reviewed. The patient is competent. The risks and benefits of the procedure and the sedation options and risks were discussed with the patient. All questions were answered and informed consent was obtained. Patient identification and proposed procedure were verified by the physician in the pre-procedure area. Mental Status Examination: normal. Respiratory Examination: clear to auscultation. CV Examination: normal. Prophylactic Antibiotics: The patient does not require prophylactic antibiotics. Prior Anticoagulants: The patient has taken Eliquis (apixaban), last dose was 2 days prior to procedure. ASA Grade Assessment: IV - A patient with severe systemic disease that is a constant threat to life. After reviewing the risks and benefits, the patient was deemed in satisfactory condition to undergo the procedure. The anesthesia plan was to use monitored anesthesia care (MAC). Immediately prior to administration of medications, the patient was re-assessed for adequacy to receive sedatives. The heart rate, respiratory rate, oxygen saturations, blood pressure, adequacy of pulmonary ventilation, and response to care were monitored throughout the procedure. The physical status of the patient was re-assessed after the procedure. After obtaining informed consent, the endoscope was passed under direct vision. Throughout the procedure, the patient's blood pressure, pulse, and oxygen saturations were monitored continuously. The gastroscope was introduced through the mouth, and advanced to the second part of duodenum. The upper GI endoscopy was accomplished without difficulty. The patient tolerated the procedure well. Scope In: 6:12:14 PM Scope Out: 6:17:17 PM Total Procedure Duration Time 0 hours 5 minutes 3 seconds Findings: The examined esophagus was normal. Two non-bleeding cratered gastric ulcers with a visible vessel were found at the pylorus. The largest lesion was 6 mm in largest dimension. Coagulation for hemostasis using heater probe was successful. Estimated blood loss was minimal. No gross lesions were noted in the first portion of the duodenum. Impression: - Normal esophagus. - Non-bleeding gastric ulcers with a visible vessel. Treated with a heater probe. - No gross lesions in the first portion of the duodenum. - No specimens collected. Recommendation: - Return patient to hospital [facility] for ongoing care. - Full liquid diet. - Continue present medications. Procedure Code(s): --- Professional --- 16615, Esophagogastroduodenoscopy, flexible, transoral; with control of bleeding, any method CPT copyright 2021 [employer]. All rights reserved. The codes documented in this report are preliminary and upon label coder review may be revised to meet current compliance requirements. Checo Chavez DO 10/12/2024 2:48:35 PM This report has been signed electronically. Number of Addenda: 0 Note Initiated On: 10/12/2024 1:00 PM
--- NOTE | 2024-10-12 15:12 | PCM.PN.BLA ---
Progress Note Patient presents to the ED lightheaded symptoms black stool x 3 today no abdominal pain. Chronic Eliquis history of paroxysmal A-fib. He does have history of CABG AICD. No cough. No syncopal episode. Saw his PCP today, blood work performed outpatient. Last Eliquis around 3:30 PM. No history of upper or lower endoscopies in the past. He was discharged 3 days ago for acute kidney injury and hypokalemia. He has been n.p.o. for upper endoscopy today. Physical Exam Narrative General: Alert, Oriented x3, Cooperative, No apparent distress HEENT: Atraumatic, PERRLA, EOMI, Normocephalic Oral: Moist Mucosa Neck: Supple, No JVD Lungs: Diminished, Normal air movement, No rhonchi, No wheeze, No rales Cardiovascular: Regular rate, Regular Rhythm, Normal S1, Normal S2, No murmurs Abdomen: Soft, Non Tender, Non-Distended, No Hepato-splenomegaly Extremities: No edema, Capillary Refill Less than 3 Seconds Skin: No rashes, No breakdown Musculoskeletal: No Tenderness to Palpation of Joints or Extremities Neurological: No focal neurological deficits, Motor Exam 5/5 strength throughout, Sensory exam intact to light touch and pain Psych/Mental Status: Normal Affect, Appropriate Assessment & Plan Assessment/Plan (1) Melanotic stools: (2) LISA (acute kidney injury): PLAN: Plan Acute blood loss anemia secondary to a GI bleed worsened by Eliquis use ? Continue with PPI ? Patient will undergo an upper endoscopy today to evaluate his upper GI tract for acute blood loss anemia. He was explained alternatives, risk and benefits including withstanding bleeding, fracture, subsequent perforation, need emergent and . He will have an ASA of 3. Visit Charges Inpatient E&M: 26907 Subs Hosp L2
--- NOTE | 2024-10-12 17:41 | PRE.ANES_ITS ---
ASA Classification* ASA Classification ASA Classification: 3 and E Assessment & Plan Anesthesia* Anesthesia Assessment Anesthesia Assessment: Discussed sedation and/or anesthesia options, risks, benefits, and alternatives with patient/parents/legal guardian/POA. Questions invited. The patient/parents/legal guardian/POA seems to understand and agrees to proceed with anesthesia plan. Reviewed the physical assessment, medical history, allergy history and patient home medications list prior to surgery/procedure/anesthetic and documented any changes. Performed airway and anesthesia risk assessments. Anesthesia Type Anesthesia Type: MAC History Source History Obtained from:: Patient and Chart Anesthesia Focused Assessment* Temperature: 97.7 F Pulse Rate: 60 Blood Pressure: 114/67 Respiratory Rate: 16 Pulse Ox: 98 Airway Assessment Mouth opens: >3 cm Mallampati Score: I Teeth Condition: Dentures and Full Neck Range of motion (ROM): Full ROM Focused Labs Anesthesia Preop lab: CBC WBC 9.3 K/mm3 (4.4-11.0) 10/12/24 03:06 10/12/24 RBC 2.81 M/mm3 (4.6-6.2) L 10/12/24 03:06 10/12/24 Hgb 8.9 g/dL (13.0-16.5) L 10/12/24 03:06 10/12/24 Hct 26.2 % (40-54) L 10/12/24 03:06 10/12/24 Plt Count 162 K/mm3 (150-450) 10/12/24 03:06 10/12/24 CHEMISTRY Potassium 3.3 mmol/L (3.3-5.1) 10/12/24 03:06 10/12/24 Sodium 137 mmol/L (133-145) 10/12/24 03:06 10/12/24 Magnesium 2.5 mg/dL (1.5-2.2) H 10/11/24 21:09 10/11/24 Phosphorus 2.9 mg/dL (2.7-4.5) 10/12/24 03:06 10/12/24 BUN 82 mg/dL (4-19) H 10/12/24 03:06 10/12/24 Creatinine 2.04 mg/dL (0.70-1.20) H 10/12/24 03:06 Glucose 206 mg/dL (70-99) H 10/12/24 03:06 10/12/24 POC Glucose 174 mg/dL (74-106) H 10/12/24 12:12 10/12/24 TSH 1.950 uIU/mL (0.300-4.200) 10/12/24 03:06 09/29 11/23 COAG PT 24.5 SECONDS (11.7-14.9) H 10/11/24 21:09 09/29 10/23 Pre-Assessment Diagnosis/Proposed Procedure Planned Operative Procedure(s): EGD Anesthesia History Anesthesia History - assembler clip on sunglasses: Anesthesia History - assembler clip on sunglasses Hx Hospitalization Yes: mar. gi bleed 01/06/22 11:10 Any Problems With Anesthesia No 10/12/24 14:53 Cholinesterase deficiency No 10/12/24 14:53 You/Your Family Experience No 10/12/24 14:53 fever (hyperthermia) with Relationship Recent Exposure to Contagious No 10/12/24 14:53 Disease Does patient have nerve No 10/12/24 14:53 stimulator Patient instructed to have device shut off --Does patient have Pacemaker Yes 10/12/24 14:53 or ICD? When Was Last Pacemaker Check 09/25/24 10/12/24 14:53 QUESTION #4 FULL TEXT: You/Your Family Experience fever (hyperthermia) with Anesthesia Last Oral Intake Last Oral intake: Last Oral Intake NPO since 00:00 10/12/24 14:53 Meds taken in AM with sips of No 10/12/24 14:53 water? Meds patient instructed to take am of surgery PONV PONV - assembler clip on sunglasses: PONV - assembler clip on sunglasses Female HX of Motion Sickness HX of N/V After Surgery Non-Smoker Duration of Surgery greater than 60 minutes Number of Risk Factors PONV Score Height & Weight Height & Weight: Anesthesia: Height & Weight Height 5 ft 7 in 10/12/24 14:53 Weight: 65.9 kg 10/12/24 14:53 Body Mass Index (BMI) 22.7 10/12/24 14:53 Respiratory Assessment Respiratory Assessment - assembler clip on sunglasses: Respiratory Tract Infection Hx - assembler clip on sunglasses Hx Respiratory Tract Infection No 10/12/24 14:53 STOP Sleep Apnea STOP Sleep Apnea - assembler clip on sunglasses: STOP Sleep Apnea - assembler clip on sunglasses Hx Hypertension No 10/12/24 00:00 Hx Sleep Apnea No 10/12/24 00:00 CPAP BIPAP No 10/08/24 00:00 Do you snore loudly (louder No 10/12/24 00:00 than talking or can be heard Do you often feel tired/ No 10/12/24 00:00 fatigued/ sleepy during daytime? Has anyone observed you stop No 10/12/24 00:00 breathing during sleep? STOP Results Negative 10/12/24 00:00 QUESTION #5 FULL TEXT : Do you snore loudly (louder than talking or can be heard through closed doors)? Tobacco Use History Tobacco Use History - assembler clip on sunglasses: Tobacco Use History - assembler clip on sunglasses Tobacco Use Smoking Status Former smoker 10/12/24 00:00 Hx Tobacco Use No 10/12/24 00:00 Years Smoking Packs Smoked per Day Smoking Cessation Date was Yes - quit smoking within 15 10/12/24 00:00 within the last 15 years years Hx Smoking Cessation Date Hx Smoking Cessation No 10/12/24 00:00 Counseling Hematologic Medial History Hematologic Hx - assembler clip on sunglasses: Hematologic Medical Hx - documentation coordinator Hx of Blood Transfusion No 10/12/24 00:00 Hx of Transfusion in last 3 No 10/12/24 00:00 Months Date of Last Transfusion (if within last 3 months) Ever experience any problems No 10/12/24 00:00 with transfusion(s)? Specify any problems Hx of Preganancy in last 3 N/A 10/12/24 00:00 Months Nurse Filling Out Transfusion MBAUTZ 10/12/24 00:00 & Questions: Date: 10/12/24 10/12/24 00:00 Time: 00:17 10/12/24 00:00 Patient unable to answer at this time (ie. confused, unrespo /Reproduction History /Reproductive History - assembler clip on sunglasses: /Reproductive Hx- assembler clip on sunglasses Hx Now Gestational Age (in weeks): EDC: Hx Hx Para Hx Section SAB Active Medications Active Medications: Current Medications Generic Name Dose Route Start Last Admin Trade Name Freq PRN Reason Stop Dose Admin Glucagon 1 mg 10/11/24 23:53 Glucagon 1 Mg/Ml Syringe IM X1 PRN HYPOGLYCEMIA Protocol Pantoprazole Sodium 80 mg/ 100 mls @ 10 mls/hr 10/12/24 08:00 10/12/24 08:28 Sodium Chloride CONT INF 10 mls/hr Q10H JUDI Administration Dextrose 250 mls @ 0 mls/hr 10/11/24 23:53 Dextrose 10%-Water IV .Q0M PRN HYPOGLYCEMIA Protocol As Directed Sodium Chloride 100 mls @ 15 mls/hr 10/12/24 00:14 IV .Q6H40M PRN Saline Flush Sodium Chloride 100 mls @ 15 mls/hr 10/12/24 00:14 IV .Q6H40M PRN Additional IVPB Infusion Insulin Human Lispro 0 unit 10/12/24 00:00 10/12/24 12:38 Insulin Lispro 100 Unit/Ml Insuln.Pen SC Not Given Q6 JUDI Protocol Morphine Sulfate 2 mg 10/11/24 23:53 Morphine 2 Mg/Ml Syringe IV Q4H PRN PRN Pain Score 6-10 Ondansetron HCl 4 mg 10/11/24 23:53 Ondansetron 4 Mg/2 Ml Vial IV Q6H PRN PRN NAUSEA/VOMITING Sodium Chloride 10 - 40 ml 10/12/24 00:14 0.9% Saline Lock 10 Ml Syringe IV UD PRN SALINE FLUSH PFSH Medical History (Updated 10/12/24 @ 00:[address] Germán Landeros, DO) Mixed hyperlipidemia Paroxysmal atrial fibrillation Hypokalemia due to loss of potassium Acute blood loss anemia Upper GI bleed Muscle cramps NSVT (nonsustained ventricular tachycardia) Nonrheumatic mitral valve insufficiency Atherosclerosis of [place] coronary artery of [place] heart without angina pectoris Ischemic cardiomyopathy Essential (primary) hypertension Type 2 diabetes mellitus without complications Home Medications ?Medication ?Instructions ?Recorded ?Last Taken ?Type multivitamin with folic acid 400 1 tab PO DAILY supple ment 04/11/17 Unknown History mcg tablet insulin lispro 100 unit/mL 10 unit subcut TID blood mims gar 03/17/18 11/12/18 07:00 History subcutaneous cartridge insulin detemir U-100 100 unit/mL 32 unit subcut QHS d iabetes 11/10/20 Unknown History (3 mL) subcutaneous pen tamsulosin 0.4 mg capsule 0.4 mg PO DAILY prostate 07/21 Unknown History zolpidem 5 mg tablet (Ambien) 5 mg PO QHS PRN insomnia 11/10/20 Unknown History apixaban 5 mg tablet 5 mg PO BID Blood thinner #1 80 tabs 02/24/21 Unknown Rx carvedilol 12.5 mg tablet 12.5 mg PO BID Heart rate/bl ood 02/24/21 Unknown Rx pressure #180 tabs nitroglycerin 0.4 mg sublingual 0.4 mg sublingual Q5-1 5M PRN chest 03/22/23 Unknown Rx tablet (Nitrostat) pain #25 tabs isosorbide mononitrate 30 mg 30 mg PO DAILY heart #90 tabs 06/18/24 Unknown Rx tablet,extended release 24 hr rosuvastatin 40 mg tablet 40 mg PO DAILY cholesterol # 90 tabs 06/18/24 Unknown Rx furosemide 40 mg tablet 40 mg PO .COMPLEX diuretic # 180 08/03/24 Unknown Rx tabs potassium chloride 20 mEq 40 meq (2 x 20 mEq) PO BID # 120 10/08/24 Unknown Rx tablet,extended release(part/cryst) tabs blood sugar diagnostic (True 10/11/24 Unknown History Metrix Glucose Test Strip) Allergy/AdvReac Type Severity Reaction Status Date / Time atorvastatin Allergy Severe myalgias, Verified 10/11/24 20:54 tongue swelling captopril Allergy Severe tongue Verified 10/11/24 20:54 swelling rivaroxaban (From Xarelto) Allergy Severe tongue Verified 10/11/24 20:54 swelling glimepiride Allergy Intermediate mouth Verified 10/11/24 20:54 blisters levofloxacin (From Levaquin) Allergy Intermediate leg pain Verified 10/11/24 20:54 dapagliflozin (From Farxiga) Allergy Unknown Rash Verified 10/11/24 20:54 azithromycin (From Zithromax) AdvReac Severe blisters Verified 10/11/24 20:54 metolazone AdvReac Severe Rash/Itchin Verified 10/11/24 20:54 g pravastatin AdvReac Intermediate itching Verified 10/11/24 20:54 Surgical History History of right-sided carotid endarterectomy History of electrophysiologic study History of left heart catheterization Status post mitral valve annuloplasty Hx of CABG (~11/14/09) Social History household members: none Smoking Status: Former smoker how long ago did patient quit smokin years ago alcohol intake: never substance use type: does not use caffeine: No what type of physical activity do you participate in: walking frequency: daily duration: 15-30 minutes/day seatbelt use: always do you feel safe at home: Yes Review of Systems (Anesthesia) ROS Narrative System reviewed and no additional complaints, except as documented.
--- NOTE | 2024-10-12 19:07 | PCM.POST.ANE ---
Anesthesia: Postop Eval I Current Vital Signs Temperature: 97.5 F Pulse Rate: 60 Blood Pressure: 117/63 Respiratory Rate: 16 Pulse Ox: 99 Assessment Airway patent: Yes Spontaneous unlabored respirations: Yes Mental status: Awake nausea: No Vomiting: No Anesthesia Complication: No Fluid Hydration Crystalloid volume administer (ml): 10 Total IV fluid infused: 10 Progress Note Anesthesia document: Postop Eval 1 completed: Yes
--- NOTE | 2024-10-12 19:11 | PCM.POSTANE2 ---
Anesthesia Postop Eval I Sum Postop Eval Completion status Anesthesia document: Postop Eval 1 completed: Yes Anesthesia Postop Eval I Summary Anesthesia Postop Eval I Summary: Anesthesia Postop Eval I: Assessment Summary Airway patent Yes 10/12/24 19:08 Spontaneous unlabored Yes 10/12/24 19:08 respirations Mental status Awake 10/12/24 19:08 nausea No 10/12/24 19:08 Vomiting No 10/12/24 19:08 Anesthesia Postop Eval I: Fluid Summary Crystalloid volume administer 10 10/12/24 19:08 (ml) Colloids volume administered ( ml) Blood Product volume administered (ml) Total IV fluid infused 10 10/12/24 19:08 Anesthesia Postop Eval I: Summary Notes Anesthesia Complication No 10/12/24 19:08 Anesthesia Complication Comment: Post-operative progress note Anesthesia: Postop Eval II Evaluation Mental status: Awake Pain Level: 0 nausea: No Vomiting: No
[2024-10-12 19:40] LABS: Hemoglobin 8.9 g/dL (13.0-16.5)
[2024-10-13 00:06] LABS: Bedside Glucose 150 mg/dL (74-106)
[2024-10-13 03:21] VITALS: BP 110/65; PULSE 61; RESP 15; TEMP 36.8; O2SAT 100
[2024-10-13 04:48] VITALS: BMI 22.8
[2024-10-13] MEDS: Pantoprazole Sodium 80 MG in 0.9% Normal Saline (100mL Bag) 80 ML 10 MG CONT INF (06:01)
[2024-10-13] MEDS: Sucralfate 1 GM Tablet PO ×2 (06:01→11:19)
[2024-10-13 06:48] LABS: Bedside Glucose 144 mg/dL (74-106)
[2024-10-13 07:26] LABS: Anion Gap 11 (5-15); BUN 52 mg/dL (4-19); BUN/Creat Ratio 27.7 RATIO (10-20); Calcium,Total 8.3 mg/dL (7.6-11.0); Carbon Dioxide 23.7 mmol/L (21.0-32.0); Chloride 108 mmol/L (98-108); Creatinine, Serum 1.87 mg/dL (0.70-1.20); EST Glomerular Filtration Rate 35 (>60); Estimated Creatinine Clearance 27.94 ml/min (50-250); Glucose 155 mg/dL (70-99); Potassium 3.4 mmol/L (3.3-5.1); Sodium Level 143 mmol/L (133-145)
[2024-10-13 08:04] VITALS: BP 117/70; PULSE 61; RESP 16; TEMP 36.5; O2SAT 96
[2024-10-13 08:33] LABS: Absolute Lymphocyte Count 0.91 X10^3/uL (0.83-4.51); Basophil# 0.04 X10^3/uL; Basophil% 0.6 % (0-1); Eosinophil# 0.14 X10^3/uL; Eosinophils% 2.1 % (0-5); Hematocrit 26.6 % (40-54); Hemoglobin 8.7 g/dL (13.0-16.5); Lymphocyte # 0.91 X10^3/ul (0.83-4.51); Lymphocyte % 13.7 % (19-41); Mean Corp Hgb Conc 32.7 g/dL (32-36); Mean Corpuscular Hgb 31.5 pg (27.0-32.0); Mean Corpuscular Volume 96.4 fL (80-94); Mean Platelet Vol. 10.1 fl (6.2-12.0); Monocyte# 0.53 X10^3/uL; NRBC Flagged by Analyzer 0 % (0-5); Neutrophil # 4.99 X10^3/uL (2.7-7.7); Neutrophil % 75.3 % (47-70); Platelet Count 160 K/mm3 (150-450); RBC Distribution Width CV 14.4 % (11.6-14.6); RBC Distribution Width SD 49.7 fl (35.1-43.9); Red Blood Count 2.76 M/mm3 (4.6-6.2); White Blood Count 6.6 K/mm3 (4.4-11.0)
--- NOTE | 2024-10-13 09:31 | DCINST_ITS ---
Discharge Instructions Diet Discharge Diet: Low fat / Low cholesterol and Carb Control Diet DC O2, CPAP, BIPAP needs Home O2 Discharge instructions: No Dressing / Incision Discharge Activity: Return to Normal Activity Dressing / Incision Call your doctor if you observe: Fever of 101 or Higher, Shortness of breath, Dizziness, Fainting spells, Swelling in the ankles, Chest pain and Increased palpitations (irregular heartbeat) Follow Up Care Test Results: Test results from this visit will be discussed in further detail at your follow- up appointment, if applicable. Discharge Plan Admission Admit Date/Time: 10/11/24 23:32 Attending Provider: García Cabezas Primary Care Provider: Jose Enrique Finney Consulting Providers: Germán Landeros Instructions Additional Instructions / Restrictions: Follow-up with your PCP in 3 to 5 days to recheck a CBC to monitor your hemoglobin and anemia. Discharge Orders/Prescriptions Prescriptions: New sucralfate 1 gram Tablet 1 g PO TIDAC 14 Days Qty: 42 0RF pantoprazole [Protonix] 40 mg tablet,delayed release (DR/EC) 40 mg PO DAILY Qty: 30 0RF Continued tamsulosin 0.4 mg capsule 0.4 mg PO DAILY zolpidem [Ambien] 5 mg tablet 5 mg PO QHS PRN (Reason: insomnia) nitroglycerin [Nitrostat] 0.4 mg tablet, sublingual 0.4 mg sublingual Q5-15M PRN (Reason: chest pain) Qty: 25 3RF Rx Instructions: do not exceed 3 doses per episode multivitamin with folic acid 1 TABLET tablet 1 tab PO DAILY insulin detemir U-100 100 unit/mL (3 mL) insulin pen 32 unit SC QHS insulin lispro 100 UNIT/ML cartridge 10 unit SC TID potassium chloride 20 mEq Tablet,Er Particles/Crystals 40 meq PO BID Qty: 120 0RF (DME) True Metrix Glucose Test Strip Strip 1 strip MISCELLANEOUS TID carvedilol 12.5 mg tablet 12.5 mg PO BID Qty: 180 3RF rosuvastatin 40 mg tablet 40 mg PO DAILY Qty: 90 3RF isosorbide mononitrate 30 mg tablet extended release 24 hr 30 mg PO DAILY Qty: 90 3RF Held apixaban 5 mg tablet 5 mg PO BID Qty: 180 3RF Hold Instructions: Resume on 10/15/24. furosemide 40 mg tablet 40 mg PO .COMPLEX Qty: 180 3RF Hold Instructions: Resume on 10/14/24. Rx Instructions: 40 mg orally decrease to once daily: May need to increase back to twice daily if SOB, swelling, etc.; Referrals / Follow Up: Jose Enrique Finney MD [Primary Care Provider] - Within 1 Week FriendCheco DO [Med Staff - Active Staff] - Within 1 Month (Make a sooner appointment if recurrent black stools) Disposition Disposition (needs filled in before D/C Order can be placed): Home, Self Care
[2024-10-13 09:34] VITALS: BP 146/70; PULSE 80; RESP 20; TEMP 36.6; O2SAT 96
[2024-10-13] MEDS: Insulin Lispro 100 UNIT/ML INSULN.PEN SC (11:19)
[2024-10-13 12:20] LABS: Bedside Glucose 350 mg/dL (74-106)
--- NOTE | 2024-10-13 13:11 | PCM.DC.SUM ---
Providers Date of Admission: 10/11/24 Primary Care Physician: Dr. Jose Enrique Finney MD Consultations 10/12/24 03:41 Consult: Gastroenterology Routine Consulting Provider: [facility] Reason for Consult: UGIB with Melanotic Stools and ABLA EMERGENT Consult: No MD Notified: Yes Date Notified: 10/12/24 Time Notified: 06:55 Method of Notification: Text Reason For Visit: UGIB WITH MELENA & SEVERE HYPOTENSION WITH LISA Diagnosis Discharge Diagnosis (1) Melanotic stools: Status: Acute Code(s): K92.1 - Melena (2) LISA (acute kidney injury): Status: Acute Code(s): N17.9 - Acute kidney failure, unspecified Medications at Discharge Home Medications multivitamin with folic acid 400 mcg tablet 1 tab PO DAILY supplement 04/11/17 insulin lispro 100 unit/mL subcutaneous cartridge 10 unit subcut TID blood sugar 03/17/18 insulin detemir U-100 100 unit/mL (3 mL) subcutaneous pen 32 unit subcut QHS diabetes 11/10/20 tamsulosin 0.4 mg capsule 0.4 mg PO DAILY prostate 11/10/20 zolpidem 5 mg tablet (Ambien) 5 mg PO QHS PRN insomnia 11/10/20 apixaban 5 mg tablet 5 mg PO BID Blood thinner #180 tabs 02/24/21 Held on 10/13/24. Instructions: Resume on 10/15/24. carvedilol 12.5 mg tablet 12.5 mg PO BID Heart rate/blood pressure #180 tabs 02/24/21 nitroglycerin 0.4 mg sublingual tablet (Nitrostat) 0.4 mg sublingual Q5-15M PRN chest pain #25 tabs 03/22/23 isosorbide mononitrate 30 mg tablet,extended release 24 hr 30 mg PO DAILY heart #90 tabs 06/18/24 rosuvastatin 40 mg tablet 40 mg PO DAILY cholesterol #90 tabs 06/18/24 furosemide 40 mg tablet 40 mg PO .COMPLEX diuretic #180 tabs 08/03/24 Held on 10/13/24. Instructions: Resume on 10/14/24. potassium chloride 20 mEq tablet,extended release(part/cryst) 40 meq (2 x 20 mEq) PO BID #120 tabs 10/08/24 blood sugar diagnostic (True Metrix Glucose Test Strip) 10/11/24 pantoprazole 40 mg tablet,delayed release (Protonix) 40 mg PO DAILY #30 tabs 10/13/24 sucralfate 1 gram tablet 1 g PO TIDAC 14 days #42 tabs 10/13/24 Hospital Course Operations None Procedures EGD Summary of Care Provided Minutes Spent on Discharge: 35 Hospital Course: Per HPI: JUAN DAVID HERNÁNDEZ, is a 84 M with a past medical history of essential hypertension; on carvedilol and furosemide, hyperlipidemia; on rosuvastatin, DM-2; of unknown control on insulin detemir 32U sq HS plus insulin lispro 10U TID, history of PAF; on apixaban, CAD; s/p CABG (2009), ischemic cardiomyopathy with LVEF ~20% (01/2024); s/p AICD-PPM on ISMO and prn SL NTG, history of NSVT; s/p EP study (2006), history of nonrheumatic mitral valve insufficiency; s/p 30 mm [place] mitral valve annuloplasty, history of carotid stenosis; s/p Right carotid endarterectomy with bovine patch angioplasty (2020) followed by Dr. Ly of vascular surgery, CKD; stage II, BPH; on tamsulosin, chronic insomnia; on prn zolpidem q. HS, history of depression with anxiety; currently not on treatment, OA, DNR-CCA; with no intubation CODE STATUS and recent admission here from October 07, 2024 to October 08, 2024 with chief complaint of fatigue and malaise with patient subsequently diagnosed with adult [id number] complicated by LISA; in the setting of stage II CKD with hypokalemia of 2.9 mmol/L and mild hyponatremia of 131 mmol/L who presents to [facility] ER complaining of dizziness and melena with watery black stools. Mr. Hernández reports his symptoms began approximately 1 day prior to admission after he ate a jar of vinegar beets with subsequent black stools and intermittent dizziness. He then went to see his PCP earlier today and had blood work performed as an outpatient that revealed evidence of upper GI bleeding with hemoglobin dropping to 11.1 g/dL (down from 13.3 g/dL on October 08, 2024) in addition to BUN of 84 mg/dL with serum creatinine of 2.22 mg/dL (up from his baseline of 27 mg/dL and 1.81 mg/dL on October 08, 2024) with corresponding symptomatic hypotension so he was directed to come to the ER for further evaluation and treatment. He states he last took his Eliquis at 3:30 PM today. There was no report of fever, chills, sore throat, runny nose, chest pain, lower extremity edema, shortness of breath, cough, dysuria, hematuria, back pain or headache. In the ER he was noted to have severe hypotension of 86/55 mmHg shortly after admission due to suspected UGIB with ABLA likely due to Adverse Drug Reaction to apixaban with elevated INR of 2.2 present on admission. He was then admitted to the PCU for ongoing care for a stay that is expected to extend beyond 2 midnights. Hospital Course: 1. Acute blood loss anemia secondary to GI bleed worsened by Eliquis use/LISA?84-year-old male presented to the hospital with signs and symptoms consistent with GI bleed. He had an EGD which demonstrated a nonbleeding gastric ulcer. No other signs or symptoms of bleeding in the GI tract. Hemoglobin has remained stable between 8.7 and 8.9 and his Eliquis was held on admission. I discussed with him the possibility for discharge today as GI did not feel like he needed a colonoscopy given the evidence of the ulcer. He expressed understanding of the risks and benefits of going home and would like to go home today. Given his LISA will hold his Lasix on discharge for couple of days and given his GI bleed will hold his Eliquis on discharge for couple of days. He will be given prescriptions for Carafate and Protonix and I recommend outpatient follow-up with his PCP to recheck his hemoglobin next week. I also discussed with him the need to follow-up with gastroenterology in the office if he has any further black stools. 2. Essential hypertension, hyperlipidemia, coronary artery disease status post CABG, paroxysmal A-fib, chronic systolic CHF, type 2 diabetes, BPH are all chronic medical conditions which complicate his care. His home medications were continued where appropriate Physical Exam Narrative General: Alert, Oriented x3, Cooperative, No apparent distress HEENT: Atraumatic, PERRLA, EOMI, Normocephalic Oral: Moist Mucosa Neck: Supple, No JVD Lungs: Diminished, Normal air movement, No rhonchi, No wheeze, No rales Cardiovascular: Regular rate, Regular Rhythm, Normal S1, Normal S2, No murmurs Abdomen: Soft, Non Tender, Non-Distended, No Hepato-splenomegaly Extremities: No edema, Capillary Refill Less than 3 Seconds Skin: No rashes, No breakdown Musculoskeletal: No Tenderness to Palpation of Joints or Extremities Neurological: No focal neurological deficits, Motor Exam 5/5 strength throughout, Sensory exam intact to light touch and pain Psych/Mental Status: Normal Affect, Appropriate Weight / BMI Weight Weight: 145 lb 8.081 oz Body Mass Index (BMI) 22.8 ABG / Lab / Microbiology Data 10/13/24 06:06 10/13/24 06:06 Laboratory: Laboratory Results - last 24 hr 10/12/24 19:30: Hgb 8.9 L, Hct 27.0 L 10/12/24 23:47: POC Glucose 150 H 10/13/24 06:00: POC Glucose 144 H 10/13/24 06:06: WBC 6.6, RBC 2.76 L, Hgb 8.7 L, Hct 26.6 L, MCV 96.4 H, MCH 31.5, MCHC 32.7, RDW Std Deviation 49.7 H, RDW Coeff of [place] 14.4, Plt Count 160, MPV 10.1, Immature Gran % (Auto) 0.300, Neut % (Auto) 75.3 H, Lymph % (Auto) 13.7 L, [place] % (Auto) 8.0, Eos % (Auto) 2.1, Baso % (Auto) 0.6, Absolute Neuts (auto) 5.0, Absolute Lymphs (auto) 0.91, Nucleated RBC % 0, Sodium 143, Potassium 3.4, Chloride 108, Carbon Dioxide 23.7, Anion Gap 11, BUN 52 H, Creatinine 1.87 H, Estim Creat Clear Calc 27.94 L, Est GFR (MDRD) Non-Af 35 L, BUN/Creatinine Ratio 27.7 H, Glucose 155 H, Calcium 8.3 10/13/24 11:18: POC Glucose 350 H Microbiology: Microbiology 10/11/24 21:35 Stool Stool Occult Blood (MADELEINE) - Final D/C Instructions Discharge Diet: Low fat / Low cholesterol and Carb Control Diet Call your doctor if you observe: Fever of 101 or Higher, Shortness of breath, Dizziness, Fainting spells, Swelling in the ankles, Chest pain and Increased palpitations (irregular heartbeat) DC O2, CPAP, BIPAP Needs Home O2 Discharge instructions: No Meaningful Use Info Meaningful Use Meaningful Use Diagnoses (Choose all that apply): None applicable Ischemic Stroke Statin Dosing Therapy Reference: STATIN DOSE THERAPY REFERENCE: * Patients > 75 years receive moderate or high dose statin therapy. * Patients 75 years or YOUNGER should receive HIGH intensity statin dose unless contraindicated. You will be required to document reason for non-treatment if statin daily dose does not meet guidelines. HIGH DOSE STATIN THERAPY DAILY Atorvastatin > than or = to 40 mg Rosuvastatin > than or = to 20 mg Amlodipine + Atorvastatin > than or = to 2.5/40 mg Ezetimibe + Simvastatin 10/80 mg Simvastatin 80mg Discharge Plan Admission Admit Date/Time: 10/11/24 23:32 Attending Provider: García Cabezas Primary Care Provider: Jose Enrique Finney Consulting Providers: Germán Landeros Instructions Additional Instructions / Restrictions: Follow-up with your PCP in 3 to 5 days to recheck a CBC to monitor your hemoglobin and anemia. Discharge Orders/Prescriptions Prescriptions: New sucralfate 1 gram Tablet 1 g PO TIDAC 14 Days Qty: 42 0RF pantoprazole [Protonix] 40 mg tablet,delayed release (DR/EC) 40 mg PO DAILY Qty: 30 0RF Continued tamsulosin 0.4 mg capsule 0.4 mg PO DAILY zolpidem [Ambien] 5 mg tablet 5 mg PO QHS PRN (Reason: insomnia) nitroglycerin [Nitrostat] 0.4 mg tablet, sublingual 0.4 mg sublingual Q5-15M PRN (Reason: chest pain) Qty: 25 3RF Rx Instructions: do not exceed 3 doses per episode multivitamin with folic acid 1 TABLET tablet 1 tab PO DAILY insulin detemir U-100 100 unit/mL (3 mL) insulin pen 32 unit SC QHS insulin lispro 100 UNIT/ML cartridge 10 unit SC TID potassium chloride 20 mEq Tablet,Er Particles/Crystals 40 meq PO BID Qty: 120 0RF (DME) True Metrix Glucose Test Strip Strip 1 strip MISCELLANEOUS TID carvedilol 12.5 mg tablet 12.5 mg PO BID Qty: 180 3RF rosuvastatin 40 mg tablet 40 mg PO DAILY Qty: 90 3RF isosorbide mononitrate 30 mg tablet extended release 24 hr 30 mg PO DAILY Qty: 90 3RF Held apixaban 5 mg tablet 5 mg PO BID Qty: 180 3RF Hold Instructions: Resume on 10/15/24. furosemide 40 mg tablet 40 mg PO .COMPLEX Qty: 180 3RF Hold Instructions: Resume on 10/14/24. Rx Instructions: 40 mg orally decrease to once daily: May need to increase back to twice daily if SOB, swelling, etc.; Referrals / Follow Up: Jose Enrique Finney MD [Primary Care Provider] - Within 1 Week Checo Chavez DO [Med Staff - Active Staff] - Within 1 Month (Make a sooner appointment if recurrent black stools) Disposition Disposition (needs filled in before D/C Order can be placed): Home, Self Care Charges/Coding Visit Charges Inpatient E&M: 22614 Disch Hosp >30min
== END 2024-10-13 14:41 | disposition home or self-care (01) | DRG 378 ==
LOC: ED 22:56 → PCU 10-12 01:17
PROVIDERS: Internal Medicine Gastroenterology; Admitting Provider Internal Medicine; Emergency Provider Emergency Medicine; PCP Family Medicine; Referring Provider Emergency Medicine; Visit Provider Family Medicine
PROC: 0DJ08ZZ Inspection of Upper Intestinal Tract, Via Natural or Artificial Opening Endoscopic (ICD-10-PCS; CPT 43235; principal; 2024-10-12 17:10)
DX: K25.4 Chronic or unspecified gastric ulcer with hemorrhage (principal); D68.32 Hemorrhagic disorder due to extrinsic circulating 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s; I13.0 Hypertensive heart and chronic kidney disease with heart failure and stage 1 through stage 4 chronic kidney disease, or unspecified chronic kidney disease; E87.1 Hypo-osmolality and hyponatremia; N17.9 Acute kidney failure, unspecified; D62 Acute posthemorrhagic anemia; I50.22 Chronic systolic (congestive) heart failure; Z66 Do not resuscitate; R62.7 Adult failure to thrive; E11.22 Type 2 diabetes mellitus with diabetic chronic kidney disease; I48.0 Paroxysmal atrial fibrillation; I25.5 Ischemic cardiomyopathy; I25.10 Atherosclerotic heart disease of native coronary artery without angina pectoris; E87.6 Hypokalemia; N18.2 Chronic kidney disease, stage 2 (mild); Z79.4 Long term (current) use of insulin; E78.2 Mixed hyperlipidemia; M19.90 Unspecified osteoarthritis, unspecified site; Z79.84 Long term (current) use of oral hypoglycemic drugs; Z79.01 Long term (current) use of 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s; Z95.0 Presence of cardiac pacemaker; Z87.891 Personal history of nicotine dependence; Z95.1 Presence of aortocoronary bypass graft; N40.0 Benign prostatic hyperplasia without lower urinary tract symptoms; T45.515A Adverse effect of 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s, initial encounter; Z68.22 Body mass index [BMI] 22.0-22.9, adult
CPT/HCPCS: 36415; 80048; 80053; 82274; 82306; 82607; 82728; 82962; 83036; 83540; 83550; 83735; 84100; 84439; 84443; 84484; 85014; 85018; 85025; 85027; 85610; 85730; 92610; 93005; 94668; 96361; 97162; 97166; 97802; 99285; C1889; A4216

== ENCOUNTER → 2024-10-11 | Outpatient (CLI) | payer MEDICARE, BC, SELFPAY ==
[2024-10-11 17:40] LABS: Hematocrit 32.7 % (40-54); Hemoglobin 11.1 g/dL (13.0-16.5); Mean Corp Hgb Conc 33.9 g/dL (32-36); Mean Corpuscular Hgb 31.3 pg (27.0-32.0); Mean Corpuscular Volume 92.1 fL (80-94); Platelet Count 192 K/mm3 (150-450); RBC Distribution Width CV 13.4 % (11.6-14.6); RBC Distribution Width SD 45.2 fl (35.1-43.9); Red Blood Count 3.55 M/mm3 (4.6-6.2); White Blood Count 11.9 K/mm3 (4.4-11.0)
[2024-10-11 19:48] LABS: Ferritin 187 ng/mL (37-417); Iron 165 ug/dL (65-175); Iron Binding Capacity,Total 283 ug/dL (250-450); Iron Binding Capacity,Unsat 118 ug/dL (228-428); Magnesium 2.5 mg/dL (1.5-2.2); Vitamin B12 333 pg/mL (180-914); Vitamin D,25 Hydroxy 64.6 ng/mL (30-100)
[2024-10-11 20:13] LABS: Anion Gap 16 (5-15); BUN 86 mg/dL (4-19); BUN/Creat Ratio 40.1 RATIO (10-20); Calcium,Total 9.5 mg/dL (7.6-11.0); Chloride 97 mmol/L (98-108); Creatinine, Serum 2.15 mg/dL (0.70-1.20); EST Glomerular Filtration Rate 30 (>60); Glucose 245 mg/dL (70-99); Potassium 4.5 mmol/L (3.3-5.1); Sodium Level 134 mmol/L (133-145)
== END | disposition home or self-care (01) ==
LOC: MTLAB 16:37
PROVIDERS: PCP Family Medicine; Referring Provider Family Medicine; Visit Provider Family Medicine
DX: E87.6 Hypokalemia (principal); R53.83 Other fatigue; K62.5 Hemorrhage of anus and rectum
CPT/HCPCS: 36415; 80048; 82306; 82607; 82728; 83540; 83550; 83735; 84439; 84443; 85027

== ENCOUNTER → 2024-10-16 | Outpatient (CLI) | payer MEDICARE, BC, SELFPAY ==
[2024-10-16 15:01] LABS: Absolute Lymphocyte Count 0.93 X10^3/uL (0.83-4.51); Absolute Neutrophil Count 4.4 X10^3/uL (2.0-7.7); Basophil# 0.03 X10^3/uL; Basophil% 0.5 % (0-1); Eosinophil# 0.09 X10^3/uL; Eosinophils% 1.5 % (0-5); Hematocrit 25.6 % (40-54); Hemoglobin 8.3 g/dL (13.0-16.5); Lymphocyte # 0.93 X10^3/ul (0.83-4.51); Lymphocyte % 15.2 % (19-41); Mean Corp Hgb Conc 32.4 g/dL (32-36); Mean Corpuscular Hgb 31.6 pg (27.0-32.0); Mean Corpuscular Volume 97.3 fL (80-94); Mean Platelet Vol. 9.8 fl (6.2-12.0); Monocyte% 9.8 % (0-10); NRBC Flagged by Analyzer 0 % (0-5); Neutrophil # 4.44 X10^3/uL (2.7-7.7); Neutrophil % 72.5 % (47-70); Platelet Count 189 K/mm3 (150-450); RBC Distribution Width CV 14.6 % (11.6-14.6); RBC Distribution Width SD 49.1 fl (35.1-43.9); Red Blood Count 2.63 M/mm3 (4.6-6.2); White Blood Count 6.1 K/mm3 (4.4-11.0)
== END | disposition home or self-care (01) ==
LOC: MFPLAB 11:58
PROVIDERS: PCP Family Medicine; Referring Provider Family Medicine; Visit Provider Family Medicine
DX: D64.9 Anemia, unspecified (principal)
CPT/HCPCS: 36415; 85025

== ENCOUNTER → 2024-10-25 | Outpatient (CLI) | payer MEDICARE, BC, SELFPAY ==
[2024-10-25 15:20] LABS: Absolute Lymphocyte Count 0.68 X10^3/uL (0.83-4.51); Absolute Neutrophil Count 4.2 X10^3/uL (2.0-7.7); Basophil# 0.03 X10^3/uL; Basophil% 0.6 % (0-1); Eosinophil# 0.08 X10^3/uL; Eosinophils% 1.5 % (0-5); Hematocrit 27.9 % (40-54); Hemoglobin 8.9 g/dL (13.0-16.5); Lymphocyte # 0.68 X10^3/ul (0.83-4.51); Lymphocyte % 12.6 % (19-41); Mean Corp Hgb Conc 31.9 g/dL (32-36); Mean Corpuscular Hgb 31.7 pg (27.0-32.0); Mean Corpuscular Volume 99.3 fL (80-94); Mean Platelet Vol. 9.3 fl (6.2-12.0); Monocyte# 0.38 X10^3/uL; NRBC Flagged by Analyzer 0 % (0-5); Neutrophil # 4.22 X10^3/uL (2.7-7.7); Neutrophil % 78.1 % (47-70); Platelet Count 229 K/mm3 (150-450); RBC Distribution Width SD 53.8 fl (35.1-43.9); Red Blood Count 2.81 M/mm3 (4.6-6.2); White Blood Count 5.4 K/mm3 (4.4-11.0)
[2024-10-25 16:28] LABS: Anion Gap 13 (5-15); BUN 17 mg/dL (4-19); BUN/Creat Ratio 12.3 RATIO (10-20); Calcium,Total 8.1 mg/dL (7.6-11.0); Carbon Dioxide 21.1 mmol/L (21.0-32.0); Chloride 100 mmol/L (98-108); Creatinine, Serum 1.36 mg/dL (0.70-1.20); EST Glomerular Filtration Rate 52 (>60); Ferritin 83 ng/mL (37-417); Glucose 282 mg/dL (70-99); Iron 36 ug/dL (65-175); Iron Binding Capacity,Total 289 ug/dL (250-450); Iron Binding Capacity,Unsat 253 ug/dL (228-428); Potassium 4.5 mmol/L (3.3-5.1); Sodium Level 134 mmol/L (133-145); Vitamin B12 375 pg/mL (180-914)
== END | disposition home or self-care (01) ==
LOC: MFPLAB 11:20
PROVIDERS: PCP Family Medicine; Referring Provider Family Medicine; Visit Provider Family Medicine
DX: D50.0 Iron deficiency anemia secondary to blood loss (chronic) (principal)
CPT/HCPCS: 36415; 80048; 82607; 82728; 83540; 83550; 85025

== ENCOUNTER → 2024-11-21 | Outpatient (CLI) | payer MEDICARE, BC, SELFPAY ==
[2024-11-21 15:30] LABS: Absolute Lymphocyte Count 0.76 X10^3/uL (0.83-4.51); Absolute Neutrophil Count 2.7 X10^3/uL (2.0-7.7); Basophil# 0.03 X10^3/uL; Basophil% 0.8 % (0-1); Eosinophil# 0.07 X10^3/uL; Eosinophils% 1.8 % (0-5); Hematocrit 32.4 % (40-54); Hemoglobin 10.1 g/dL (13.0-16.5); Lymphocyte # 0.76 X10^3/ul (0.83-4.51); Lymphocyte % 19.6 % (19-41); Mean Corp Hgb Conc 31.2 g/dL (32-36); Mean Corpuscular Hgb 30.6 pg (27.0-32.0); Mean Corpuscular Volume 98.2 fL (80-94); Mean Platelet Vol. 9.9 fl (6.2-12.0); Monocyte# 0.32 X10^3/uL; Monocyte% 8.2 % (0-10); NRBC Flagged by Analyzer 0 % (0-5); Neutrophil # 2.69 X10^3/uL (2.7-7.7); Neutrophil % 69.3 % (47-70); Platelet Count 179 K/mm3 (150-450); RBC Distribution Width CV 13.7 % (11.6-14.6); RBC Distribution Width SD 49.2 fl (35.1-43.9); White Blood Count 3.9 K/mm3 (4.4-11.0)
[2024-11-21 15:53] LABS: Iron 45 ug/dL (65-175); Iron Binding Capacity,Total 304 ug/dL (250-450); Iron Binding Capacity,Unsat 259 ug/dL (228-428)
== END | disposition home or self-care (01) ==
LOC: MFPLAB 11:40
PROVIDERS: Nurse Practitioner Acute Care; PCP Family Medicine; Referring Provider Family Medicine; Visit Provider Family Medicine
DX: D64.9 Anemia, unspecified (principal); K25.4 Chronic or unspecified gastric ulcer with hemorrhage
CPT/HCPCS: 36415; 83540; 83550; 85025

== ENCOUNTER 2024-12-06 14:48 | Outpatient (CLI) | payer MEDICARE, BC, SELFPAY ==
[2024-12-06 16:52] LABS: Absolute Lymphocyte Count 0.76 X10^3/uL (0.83-4.51); Absolute Neutrophil Count 4.2 X10^3/uL (2.0-7.7); Basophil# 0.03 X10^3/uL; Basophil% 0.5 % (0-1); Eosinophil# 0.05 X10^3/uL; Eosinophils% 0.9 % (0-5); Hemoglobin 10.6 g/dL (13.0-16.5); Lymphocyte # 0.76 X10^3/ul (0.83-4.51); Lymphocyte % 13.9 % (19-41); Mean Corp Hgb Conc 32.1 g/dL (32-36); Mean Corpuscular Hgb 30.8 pg (27.0-32.0); Mean Corpuscular Volume 95.9 fL (80-94); Mean Platelet Vol. 10.1 fl (6.2-12.0); Monocyte# 0.47 X10^3/uL; Monocyte% 8.6 % (0-10); NRBC Flagged by Analyzer 0 % (0-5); Neutrophil # 4.15 X10^3/uL (2.7-7.7); Neutrophil % 75.7 % (47-70); Platelet Count 181 K/mm3 (150-450); RBC Distribution Width CV 13.6 % (11.6-14.6); RBC Distribution Width SD 47.8 fl (35.1-43.9); Red Blood Count 3.44 M/mm3 (4.6-6.2); White Blood Count 5.5 K/mm3 (4.4-11.0)
[2024-12-06 17:48] LABS: ALB/GLOB Ratio 1.4 RATIO (0.9-2.4); AST(SGOT) 26 U/L (<=37); Alanine Aminotransfer ALT/SGPT 29 U/L (<=46); Albumin, Serum 3.8 g/dL (3.4-4.8); Alkaline Phosphatase 123 U/L (40-129); Anion Gap 14 (5-15); BUN 21 mg/dL (4-19); BUN/Creat Ratio 13.8 RATIO (10-20); Calcium,Total 8.6 mg/dL (7.6-11.0); Chloride 103 mmol/L (98-108); Cholesterol 75 mg/dL (<=200); EST Glomerular Filtration Rate 46 (>60); Globulin 2.7 g/dL (2.2-4.2); Glucose 324 mg/dL (70-99); High Density Lipoprotein 26 mg/dL; Low Density Lipoprotein Calc. 32 mg/dL; Magnesium 2.1 mg/dL (1.5-2.2); Potassium 4.7 mmol/L (3.3-5.1); Protein, Total 6.5 g/dL (5.9-8.4); Sodium Level 136 mmol/L (133-145); Total Bilirubin 0.66 mg/dL (0.00-1.30); Triglycerides 88 mg/dL; Very Low Density Lipoprotein 18 mg/dL (5-40); cholesterol:hdl ratio screen 2.93
[2024-12-06 18:22] LABS: PTHIN 53 pg/mL (11-61)
[2024-12-06 18:35] LABS: Hemoglobin A1c 8.4 % (<=5.6)
== END 2024-12-06 23:59 | disposition home or self-care (01) ==
LOC: LAB 14:49
PROVIDERS: PCP Family Medicine; Referring Provider Nurse Practitioner Acute Care; Visit Provider Nurse Practitioner Acute Care
DX: E11.59 Type 2 diabetes mellitus with other circulatory complications (principal); I48.0 Paroxysmal atrial fibrillation; E11.65 Type 2 diabetes mellitus with hyperglycemia; E11.22 Type 2 diabetes mellitus with diabetic chronic kidney disease
CPT/HCPCS: 80053; 80061; 82306; 83036; 83735; 83970; 85025

== ENCOUNTER → 2024-12-10 | Outpatient (CLI) | payer MEDICARE, BC, SELFPAY ==
[2024-12-10 16:58] LABS: Bacteria 0 SEEN /hpf (None Seen); Mucous, Urine 0 SEEN /hpf (<or=2+); Red Blood Cells-Urine 0 SEEN /hpf (0-5); Squamous Epithelial Cells - UA 0 SEEN /hpf (0-5); White Blood Cells 0 SEEN /hpf (0-5)
[2024-12-10 17:17] LABS: Color, Urine Yellow (Yellow); Glucose, Dipstick Normal (Normal); Ketone-Dipstick Negative (Negative); Leukocyte Esterase-Dipstick Negative /ul (Negative); Nitrite-Dipstick Negative (Negative); Occult Blood-Urine Negative /ul (Negative); Protein-Dipstick 15 mg/dl (Negative); Urine Bilirubin Dipstick Negative (Negative); Urine Clarity Clear (Clear); Urine Urobilinogen Normal (Normal)
[2024-12-10 20:06] LABS: Microalbumin,Random Urine 38.9 mg/L (NO RANGE EST.); Microalbumin:Creatinine Ratio 805.4 mg/g CRE; Protein:Creat Ratio 311 mg/g CRE (0-200)
== END | disposition home or self-care (01) ==
LOC: LABSPEC 16:46
PROVIDERS: PCP Family Medicine; Referring Provider Family Medicine; Visit Provider Family Medicine
DX: E11.22 Type 2 diabetes mellitus with diabetic chronic kidney disease (principal); N18.9 Chronic kidney disease, unspecified
CPT/HCPCS: 81001; 82043; 82570; 84156

== ENCOUNTER → 2024-12-26 | Outpatient (CLI) | payer MEDICARE, BC, SELFPAY ==
--- NOTE | 2024-12-26 14:56 | RAD_ITS ---
PROCEDURE: CHEST PA AND LATERAL 12/26/2024 REASON FOR EXAM: COUGH GETTING WORSE X 1 WEEK TECHNIQUE: Frontal and lateral views of the chest. COMPARISON: 10/07/2024 FINDINGS: The lungs appear clear. Pulmonary vascularity appears within limits. No pleural effusion. Status post CABG, mitral valve replacement, coronary stent, dual lead AICD again noted. The cardiac and mediastinal contours appear within limits. Atherosclerotic change again noted at the aortic arch. Visualized osseous structures appear within limits. RAD/Chest PA and Lateral IMPRESSION: No evidence of acute disease. Reading Location: [id number]
== END | disposition home or self-care (01) ==
LOC: MTRAD 14:56
PROVIDERS: PCP Family Medicine; Referring Provider Family Medicine; Visit Provider Family Medicine
DX: J20.9 Acute bronchitis, unspecified (principal)
CPT/HCPCS: 71046

== ENCOUNTER 2025-01-09 12:10 | Day surgery (SDC) | payer MEDICARE, BC, SELFPAY ==
--- NOTE | 2025-01-04 12:18 | PAT.ANESEVAL ---
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 gi bleed 01/04/25 11:06 Any Problems With Anesthesia No 01/04/25 11:06 Cholinesterase deficiency No 01/04/25 11:06 You/Your Family Experience No 01/04/25 11:06 fever (hyperthermia) with Relationship Recent Exposure to Contagious No 10/12/24 14:53 Disease Does patient have nerve No 01/04/25 11:06 stimulator Patient instructed to have device shut off --Does patient have Pacemaker or ICD? When Was Last Pacemaker Check 09/25/24 10/12/24 14:53 QUESTION #4 FULL TEXT: You/Your Family Experience fever (hyperthermia) with Anesthesia Last Oral Intake Last Oral intake: Last Oral Intake NPO since Meds taken in AM with sips of water? Meds patient instructed to take am of surgery PONV PONV - nailing machine operator automatic: PONV - nailing machine operator automatic Female No 01/04/25 11:06 HX of Motion Sickness No 01/04/25 11:06 HX of N/V After Surgery No 01/04/25 11:06 Non-Smoker Yes 01/04/25 11:06 Duration of Surgery greater No 01/04/25 11:06 than 60 minutes Number of Risk Factors 1 01/04/25 11:06 PONV Score Low Risk 01/04/25 11:06 Height & Weight Height & Weight: Anesthesia: Height & Weight Height 5 ft 7 in 10/17/24 14:06 Respiratory Assessment Respiratory Assessment - nailing machine operator automatic: Respiratory Tract Infection Hx - nailing machine operator automatic Hx Respiratory Tract Infection No 01/04/25 11:06 STOP Sleep Apnea STOP Sleep Apnea - nailing machine operator automatic: STOP Sleep Apnea - nailing machine operator automatic Hx Hypertension No 01/04/25 11:06 Hx Sleep Apnea No 01/04/25 11:06 CPAP BIPAP No 01/04/25 11:06 Do you snore loudly (louder No 01/04/25 11:06 than talking or can be heard Do you often feel tired/ Yes 01/04/25 11:06 fatigued/ sleepy during daytime? Has anyone observed you stop No 01/04/25 11:06 breathing during sleep? STOP Results Negative 01/04/25 11:06 QUESTION #5 FULL TEXT : Do you snore loudly (louder than talking or can be heard through closed doors)? 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 machine operator automatic Tobacco Use Smoking Status Former smoker 01/04/25 11:06 Hx Tobacco Use No 01/04/25 11:06 Years Smoking Packs Smoked per Day Smoking Cessation Date was No - quit smoking greater 01/04/25 11:06 within the last 15 years than 15 years ago Hx Smoking Cessation Date Hx Smoking Cessation No 01/04/25 11:06 Counseling Hematologic Medial History Hematologic Hx - nailing machine operator automatic: Hematologic Medical Hx - teacher of the sight impaired Hx of Blood Transfusion No 01/04/25 11:06 Hx of Transfusion in last 3 No 01/04/25 11:06 Months Date of Last Transfusion (if within last 3 months) Ever experience any problems No 01/04/25 11:06 with transfusion(s)? Specify any problems Hx of Preganancy in last 3 N/A 01/04/25 11:06 Months Nurse Filling Out Transfusion DSCHRIBER 01/04/25 11:06 & Questions: Date: 01/04/25 01/04/25 11:06 Time: 11:08 01/04/25 11:06 Patient unable to answer at this time (ie. confused, unrespo /Reproduction History /Reproductive History - nailing machine operator automatic: /Reproductive Hx- nailing machine operator automatic Hx Now No 01/04/25 11:06 Gestational Age (in weeks): EDC: Hx Hx Para Hx Section SAB No 01/04/25 11:06 [facility] Medical History (Updated 01/04/25 @ 11:21 by Jadyn Reyna) Tinnitus Wears glasses Wears dentures Insulin dependent diabetes mellitus Arthritis High cholesterol Back pain Difficulty swallowing History of GI bleed Former smoker Shortness of breath on exertion Leg cramps History of pain when walking History of edema History of CHF (congestive heart failure) History of heart attack History of echocardiogram History of stress test Cardiology follow-up encounter Hx of fracture of leg Neuropathy Declining functional status LISA (acute kidney injury) Acute hypokalemia Mixed hyperlipidemia Paroxysmal atrial fibrillation Hypokalemia due to loss of potassium Upper GI bleed NSVT (nonsustained ventricular tachycardia) Nonrheumatic mitral valve insufficiency Atherosclerosis of [place] coronary artery of [place] heart without angina pectoris Ischemic cardiomyopathy Essential (primary) hypertension Type 2 diabetes mellitus without complications Home Medications ?Medication ?Instructions ?Recorded ?Last Taken ?Type multivitamin with folic acid 400 1 tab PO DAILY supplement 04/11/17 Unknown History mcg tablet insulin detemir U-100 100 unit/mL 32 unit subcut QHS diabetes 11/10/20 Unknown History (3 mL) subcutaneous pen apixaban 5 mg tablet 5 mg PO BID Blood thinner #180 tabs 02/24/21 Unknown Rx carvedilol 12.5 mg tablet 12.5 mg PO BID Heart rate/blood 02/24/21 Unknown Rx pressure #180 tabs nitroglycerin 0.4 mg sublingual 0.4 mg sublingual Q5-15M PRN chest 03/22/23 Unknown Rx tablet (Nitrostat) pain #25 tabs isosorbide mononitrate 30 mg 30 mg PO DAILY heart #90 tabs 06/18/24 Unknown Rx tablet,extended release 24 hr rosuvastatin 40 mg tablet 40 mg PO DAILY cholesterol #90 tabs 06/18/24 Unknown Rx blood sugar diagnostic (True 10/11/24 Unknown History Metrix Glucose Test Strip) ascorbate calcium (vitamin C) 500 500 mg PO QDAY #90 tabs 10/17/24 Unknown Rx mg tablet pantoprazole 40 mg tablet,delayed 40 mg PO BID #180 tabs 10/17/24 Unknown Rx release insulin lispro 100 unit/mL 10 unit subcut TID 11/01/24 Unknown History subcutaneous pen (Humalog KwikPen (U-100) Insulin) tamsulosin 0.4 mg capsule 0.4 mg PO QHS 11/01/24 Unknown History zolpidem 5 mg tablet 5 mg PO QHS PRN sleep 11/01/24 Unknown History furosemide 40 mg tablet 40 mg PO BID diuretic #180 tabs 12/05/24 Unknown Rx acetaminophen 500 mg tablet 500 mg PO Q6H PRN back pain #60 12/20/24 Unknown Rx (Tylenol Extra Strength) tabs ferrous sulfate 325 mg (65 mg 325 mg PO QODAY 01/04/25 Unknown History iron) tablet potassium chloride 20 mEq 20 meq PO BID 01/04/25 Unknown History tablet,extended release(part/cryst) Allergy/AdvReac Type Severity Reaction Status Date / Time atorvastatin Allergy Severe myalgias, Verified 01/04/25 11:02 tongue swelling captopril Allergy Severe tongue Verified 01/04/25 11:02 swelling rivaroxaban (From Xarelto) Allergy Severe tongue Verified 01/04/25 11:02 swelling glimepiride Allergy Intermediate mouth Verified 01/04/25 11:02 blisters levofloxacin (From Levaquin) Allergy Intermediate leg pain Verified 01/04/25 11:02 dapagliflozin (From Farxiga) Allergy Unknown Rash Verified 01/04/25 11:02 azithromycin (From Zithromax) AdvReac Severe blisters Verified 01/04/25 11:02 metolazone AdvReac Severe Rash/Itchin Verified 01/04/25 11:02 g pravastatin AdvReac Intermediate itching Verified 01/04/25 11:02 Surgical History (Updated 01/04/25 @ 11:21 by Jadyn Reyna) History of implantable cardiac defibrillator (ICD) Hx of arthroscopic knee surgery Hx of right cataract extraction Hx of left cataract extraction History of esophagogastroduodenoscopy (EGD) History of right-sided carotid endarterectomy History of electrophysiologic study History of left heart catheterization Status post mitral valve annuloplasty Hx of CABG (~11/14/09) Social History household members: none Smoking Status: Former smoker how long ago did patient quit smokin years ago alcohol intake: never substance use type: does not use caffeine: No what type of physical activity do you participate in: walking frequency: daily duration: 15-30 minutes/day seatbelt use: always do you feel safe at home: Yes Audit: Pertinent Findings Pertinent Findings Echo (EF%) pertinent findings: 02/14/2024. EF 20%. Mild aortic stenosis. Severe global hypokinesis of left ventricle. Consult pertinent findings: Cardiology 11/01/2024. Aortic valve stenosis. Mild. Stable continue to monitor. Last echo January 2024. AICD in place. Paroxysmal atrial fibrillation. History of coronary artery bypass graft. 2009. Currently no anginal type symptoms. Chronic ischemic cardiomyopathy. EF is known to be in the 20% range. Global risk chemically dilated left ventricle. Continue aggressive treatment. Recommendation Anesthesia Recommendation Anesthesia recommendation: OPTIMIZED for anesthesia
[2025-01-09] VITALS (8 sets, daily range): BP systolic 103–141; BP diastolic 63–82; PULSE 60; RESP 14–20; TEMP 36.3–36.7; O2SAT 94–98; BMI 22.8
--- NOTE | 2025-01-09 12:38 | HP.PCM_ITS ---
HPI - General General Date of Admission: 01/09/25 Date of Service: 01/09/25 Chief Complaint: Gastric ulcer HPI Narrative 84-year-old male presents for follow-up post admission for GI bleed. EGD 10/12/2024 - No specimens were collected The examined esophagus was normal. Two non-bleeding cratered gastric ulcers with a visible vessel were found at the pylorus. The largest lesion was 6 mm in largest dimension. Coagulation for hemostasis using heater probe was successful. Estimated blood loss was minimal. No gross lesions were noted in the first portion of the duodenum. - resumed Lasix on 10/14 and Eliquis on 10/15 - he reports he was taking Debra Back and Body Extra Strength Aspirin 500 mg, Pain Reliever With Caffeine, 200 Coated Caplets - he would take couple a couple times a day, once a week - reports a weight loss of 10-15lbs in the past 6 months - unexplained - thinks maybe taking too much lasix - denies any abdominal pain - denies any nausea - denies any emesis - reports his last episode of melena was yesterday - he is taking pantoprazole 40mg once daily and carafate TID AC - will d/c carafate after 14 days - [facility], [facility] Medical History Tinnitus Wears glasses Wears dentures Insulin dependent diabetes mellitus Arthritis High cholesterol Back pain Difficulty swallowing History of GI bleed Former smoker Shortness of breath on exertion Leg cramps History of pain when walking History of edema History of CHF (congestive heart failure) History of heart attack History of echocardiogram History of stress test Cardiology follow-up encounter Hx of fracture of leg Neuropathy Declining functional status LISA (acute kidney injury) Acute hypokalemia Mixed hyperlipidemia Paroxysmal atrial fibrillation Hypokalemia due to loss of potassium Upper GI bleed NSVT (nonsustained ventricular tachycardia) Nonrheumatic mitral valve insufficiency Atherosclerosis of [place] coronary artery of [place] heart without angina pectoris Ischemic cardiomyopathy Essential (primary) hypertension Type 2 diabetes mellitus without complications Home Medications ?Medication ?Instructions ?Recorded ?Last Taken ?Type multivitamin with folic acid 400 1 tab PO DAILY supple ment 04/11/17 Unknown History mcg tablet insulin detemir U-100 100 unit/mL 32 unit subcut QHS d iabetes 04/12/21 Unknown History (3 mL) subcutaneous pen apixaban 5 mg tablet 5 mg PO BID Blood thinner #1 80 tabs 02/24/21 Unknown Rx carvedilol 12.5 mg tablet 12.5 mg PO BID Heart rate/bl ood 02/24/21 Unknown Rx pressure #180 tabs nitroglycerin 0.4 mg sublingual 0.4 mg sublingual Q5-1 5M PRN chest 03/22/23 Unknown Rx tablet (Nitrostat) pain #25 tabs isosorbide mononitrate 30 mg 30 mg PO DAILY heart #90 tabs 06/18/24 Unknown Rx tablet,extended release 24 hr rosuvastatin 40 mg tablet 40 mg PO DAILY cholesterol # 90 tabs 06/18/24 Unknown Rx blood sugar diagnostic (True 10/11/24 Unknown History Metrix Glucose Test Strip) ascorbate calcium (vitamin C) 500 500 mg PO QDAY #90 t abs 10/17/24 Unknown Rx mg tablet pantoprazole 40 mg tablet,delayed 40 mg PO BID #180 ta bs 10/17/24 Unknown Rx release insulin lispro 100 unit/mL 10 unit subcut TID 11/01/24 Unknown History subcutaneous pen (Humalog KwikPen (U-100) Insulin) tamsulosin 0.4 mg capsule 0.4 mg PO QHS 11/01/24 Unkno wn History zolpidem 5 mg tablet 5 mg PO QHS PRN sleep Unknown History furosemide 40 mg tablet 40 mg PO BID diuretic #180 t abs 12/05/24 Unknown Rx acetaminophen 500 mg tablet 500 mg PO Q6H PRN back rusty n #60 12/20/24 Unknown Rx (Tylenol Extra Strength) tabs ferrous sulfate 325 mg (65 mg 325 mg PO QODAY 01/04/25 Unknown History iron) tablet potassium chloride 20 mEq 20 meq PO BID 01/04/25 Unkno wn History tablet,extended release(part/cryst) Allergy/AdvReac Type Severity Reaction Status Date / Time atorvastatin Allergy Severe myalgias, Verified 01/04/25 11:02 tongue swelling captopril Allergy Severe tongue Verified 01/04/25 11:02 swelling rivaroxaban (From Xarelto) Allergy Severe tongue Verified 01/04/25 11:02 swelling glimepiride Allergy Intermediate mouth Verified 01/04/25 11:02 blisters levofloxacin (From Levaquin) Allergy Intermediate leg pain Verified 01/04/25 11:02 dapagliflozin (From Farxiga) Allergy Unknown Rash Verified 01/04/25 11:02 azithromycin (From Zithromax) AdvReac Severe blisters Verified 01/04/25 11:02 metolazone AdvReac Severe Rash/Itchin Verified 01/04/25 11:02 g pravastatin AdvReac Intermediate itching Verified 01/04/25 11:02 Surgical History History of implantable cardiac defibrillator (ICD) Hx of arthroscopic knee surgery Hx of right cataract extraction Hx of left cataract extraction History of esophagogastroduodenoscopy (EGD) History of right-sided carotid endarterectomy History of electrophysiologic study History of left heart catheterization Status post mitral valve annuloplasty Hx of CABG (~11/14/09) Social History household members: none Smoking Status: Former smoker how long ago did patient quit smokin years ago alcohol intake: never substance use type: does not use caffeine: No what type of physical activity do you participate in: walking frequency: daily duration: 15-30 minutes/day seatbelt use: always do you feel safe at home: Yes ROS Constitutional Constitutional: Denies fatigue, fever(s), poor appetite, weight gain or weight loss Gastrointestinal Gastrointestinal: Denies belching, bloating, change in bowel habits, change in stool character, chewing difficulty, coffee ground emesis, constipation, cramping, diarrhea, dyspepsia, dysphagia, early satiety, excessive flatus, fecal incontinence, heartburn, hematemesis, hematochezia, hemorrhoids, loose stools, melena, nausea, odynophagia, rectal bleeding, tenesmus, vomiting or weight changes Physical Exam Const alert, oriented x3, no apparent distress and healthy appearing General Appearance: cooperative GI normal to inspection, nondistended, normoactive bowel sounds, soft to palpation, non-tender and non-distended Percussion: normal to percussion Rectal Exam: deferred Assessment & Plan Assessment/Plan (1) Gastric ulcer: PLAN: Assessment and Plan Assessment and Plan (1) Upper GI bleed: Status: Acute (2) Gastric ulcer: Status: Acute Orders: Orders CBC W/Diff, Automated 2 Weeks D64.9 - Anemia, unspecified, K25.9 - Gastric ulcer, unspecified as acute or chronic, without hemorrhage or perforation, K92.2 - Gastrointestinal hemorrhage, unspecified Iron+Iron Binding Capacity 2 Weeks K25.9 - Gastric ulcer, unspecified as acute or chronic, without hemorrhage or perforation, K92.2 - Gastrointestinal hemorrhage, unspecified Medications: New pantoprazole take 30 minutes before breakfast and dinner 40 mg PO BID 180 tabs 1RF ferrous sulfate take one tablet every other day in the morning 325 mg PO QDAY 90 tabs 0RF ascorbate calcium (vitamin C) take once tablet every other day with Fe tablet 500 mg PO QDAY 90 tabs 1RF acetaminophen (Tylenol Extra Strength) 500 mg PO Q6H PRN 60 tabs 0RF back pain Plan 84-year-old male presents for follow-up post admission for GI bleed. He presented to the emergency department on 10/11 after experiencing 3 episodes of black stools with no associated abdominal pain. His past medical history is significant for paroxysmal atrial fibrillation on Eliquis and CABG with an AICD. EGD performed during admission revealed a normal esophagus, nonbleeding gastric ulcers with a visible vessel. His hemoglobin dropped from 13.3 on admission to 8.7 at discharge. Follow-up labs performed yesterday revealed a hemoglobin of 8.3. He resumed his Eliquis on October 15. He reports taking Debra extra strength back and body intermittently prior to admission for back pain. I have recommended he discontinue use and take acetaminophen as needed instead. He will increase pantoprazole to twice daily and repeat upper endoscopy in 12 weeks. I have also started him on iron every other day with vitamin C. He will repeat labs in 2 weeks.
--- NOTE | 2025-01-09 12:40 | PCM.PRE.AN2 ---
ASA Classification* ASA Classification ASA Classification: 3 Assessment & Plan Anesthesia* Anesthesia Assessment Anesthesia Assessment: Discussed sedation and/or anesthesia options, risks, benefits, and alternatives with patient/parents/legal guardian/POA. Questions invited. The patient/parents/legal guardian/POA seems to understand and agrees to proceed with anesthesia plan. Reviewed the physical assessment, medical history, allergy history and patient home medications list prior to surgery/procedure/anesthetic and documented any changes. Performed airway and anesthesia risk assessments. Anesthesia Type Anesthesia Type: MAC Anesthesia Focused Assessment* Airway Assessment Mouth opens: >3 cm Mallampati Score: II Labs Anesthesia Preop lab: CBC WBC 5.5 K/mm3 (4.4-11.0) 12/06/24 15:12/06/24 RBC 3.44 M/mm3 (4.6-6.2) L 12/06/24 15:12/06/24 Hgb 10.6 g/dL (13.0-16.5) L 12/06/24 15:12/06/24 Hct 33.0 % (40-54) L 12/06/24 15:12/06/24 Plt Count 181 K/mm3 (150-450) 12/06/24 15:04 12/06/24 CHEMISTRY Potassium 4.7 mmol/L (3.3-5.1) 12/06/24 14:12/06/24 Sodium 136 mmol/L (133-145) 12/06/24 14:12/06/24 Magnesium 2.1 mg/dL (1.5-2.2) 12/06/24 14:12/06/24 Phosphorus 2.9 mg/dL (2.7-4.5) 10/12/24 03:06 10/12/24 BUN 21 mg/dL (4-19) H 12/06/24 14:51 12/06/24 Creatinine 1.50 mg/dL (0.70-1.20) H 12/06/24 14:12/06/24 Glucose 324 mg/dL (70-99) H 12/06/24 14:51 12/06/24 POC Glucose 350 mg/dL (74-106) H 10/13/24 11:18 10/13/24 TSH 1.950 uIU/mL (0.300-4.200) 10/12/24 03:06 10/12/24 COAG PT 24.5 SECONDS (11.7-14.9) H 10/11/24 21:09 10/11/24 Pre-Assessment Diagnosis/Proposed Procedure Planned Operative Procedure(s): EGD Anesthesia History 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 gi bleed 01/04/25 11:06 Any Problems With Anesthesia No 01/04/25 11:06 Cholinesterase deficiency No 01/04/25 11:06 You/Your Family Experience No 01/04/25 11:06 fever (hyperthermia) with Relationship Recent Exposure to Contagious No 10/12/24 14:53 Disease Does patient have nerve No 01/04/25 11:06 stimulator Patient instructed to have device shut off --Does patient have Pacemaker or ICD? When Was Last Pacemaker Check 09/25/24 10/12/24 14:53 QUESTION #4 FULL TEXT: You/Your Family Experience fever (hyperthermia) with Anesthesia Last Oral Intake Last Oral intake: Last Oral Intake NPO since Meds taken in AM with sips of water? Meds patient instructed to take am of surgery PONV PONV - biodiesel process control technician: PONV - biodiesel process control technician Female No 01/04/25 11:06 HX of Motion Sickness No 01/04/25 11:06 HX of N/V After Surgery No 01/04/25 11:06 Non-Smoker Yes 01/04/25 11:06 Duration of Surgery greater No 01/04/25 11:06 than 60 minutes Number of Risk Factors 1 01/04/25 11:06 PONV Score Low Risk 01/04/25 11:06 Height & Weight Height & Weight: Anesthesia: Height & Weight Height 5 ft 7 in 11/01/24 10:42 Respiratory Assessment Respiratory Assessment - biodiesel process control technician: Respiratory Tract Infection Hx - biodiesel process control technician Hx Respiratory Tract Infection No 01/04/25 11:06 STOP Sleep Apnea STOP Sleep Apnea - biodiesel process control technician: STOP Sleep Apnea - biodiesel process control technician Hx Hypertension No 01/04/25 11:06 Hx Sleep Apnea No 01/04/25 11:06 CPAP BIPAP No 01/04/25 11:06 Do you snore loudly (louder No 01/04/25 11:06 than talking or can be heard Do you often feel tired/ Yes 01/04/25 11:06 fatigued/ sleepy during daytime? Has anyone observed you stop No 01/04/25 11:06 breathing during sleep? STOP Results Negative 01/04/25 11:06 QUESTION #5 FULL TEXT : Do you snore loudly (louder than talking or can be heard through closed doors)? 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 Specify any problems Hx of Preganancy in last 3 N/A 01/04/25 11:06 Months Nurse Filling Out Transfusion DSCHRIBER 01/04/25 11:06 & Questions: Date: 01/04/25 01/04/25 11:06 Time: 11:08 01/04/25 11:06 Patient unable to answer at this time (ie. confused, unrespo /Reproduction History /Reproductive History - biodiesel process control technician: /Reproductive Hx- biodiesel process control technician Hx Now No 01/04/25 11:06 Gestational Age (in weeks): EDC: Hx Hx Para Hx Section SAB No 01/04/25 11:06 Active Medications Active Medications: Current Medications Generic Name Dose Route Start Last Admin Trade Name Freq PRN Reason Stop Dose Admin Lactated Ringer's 1,000 mls @ 15 mls/hr 01/09/25 12:45 IV .Q48H JUDI PFSH Medical History Tinnitus Wears glasses Wears dentures Insulin dependent diabetes mellitus Arthritis High cholesterol Back pain Difficulty swallowing History of GI bleed Former smoker Shortness of breath on exertion Leg cramps History of pain when walking History of edema History of CHF (congestive heart failure) History of heart attack History of echocardiogram History of stress test Cardiology follow-up encounter Hx of fracture of leg Neuropathy Declining functional status LISA (acute kidney injury) Acute hypokalemia Mixed hyperlipidemia Paroxysmal atrial fibrillation Hypokalemia due to loss of potassium Upper GI bleed NSVT (nonsustained ventricular tachycardia) Nonrheumatic mitral valve insufficiency Atherosclerosis of [place] coronary artery of [place] heart without angina pectoris Ischemic cardiomyopathy Essential (primary) hypertension Type 2 diabetes mellitus without complications Home Medications ?Medication ?Instructions ?Recorded ?Last Taken ?Type multivitamin with folic acid 400 1 tab PO DAILY supplement 04/11/17 Unknown History mcg tablet insulin detemir U-100 100 unit/mL 32 unit subcut QHS diabetes 11/10/20 Unknown History (3 mL) subcutaneous pen apixaban 5 mg tablet 5 mg PO BID Blood thinner #180 tabs 02/24/21 Unknown Rx carvedilol 12.5 mg tablet 12.5 mg PO BID Heart rate/blood 02/24/21 Unknown Rx pressure #180 tabs nitroglycerin 0.4 mg sublingual 0.4 mg sublingual Q5-15M PRN chest 03/22/23 Unknown Rx tablet (Nitrostat) pain #25 tabs isosorbide mononitrate 30 mg 30 mg PO DAILY heart #90 tabs 06/18/24 Unknown Rx tablet,extended release 24 hr rosuvastatin 40 mg tablet 40 mg PO DAILY cholesterol #90 tabs 06/18/24 Unknown Rx blood sugar diagnostic (True 10/11/24 Unknown History Metrix Glucose Test Strip) ascorbate calcium (vitamin C) 500 500 mg PO QDAY #90 tabs 10/17/24 Unknown Rx mg tablet pantoprazole 40 mg tablet,delayed 40 mg PO BID #180 tabs 10/17/24 Unknown Rx release insulin lispro 100 unit/mL 10 unit subcut TID 11/01/24 Unknown History subcutaneous pen (Humalog KwikPen (U-100) Insulin) tamsulosin 0.4 mg capsule 0.4 mg PO QHS 11/01/24 Unknown History zolpidem 5 mg tablet 5 mg PO QHS PRN sleep 11/01/24 Unknown History furosemide 40 mg tablet 40 mg PO BID diuretic #180 tabs 12/05/24 Unknown Rx acetaminophen 500 mg tablet 500 mg PO Q6H PRN back pain #60 12/20/24 Unknown Rx (Tylenol Extra Strength) tabs ferrous sulfate 325 mg (65 mg 325 mg PO QODAY 01/04/25 Unknown History iron) tablet potassium chloride 20 mEq 20 meq PO BID 01/04/25 Unknown History tablet,extended release(part/cryst) Allergy/AdvReac Type Severity Reaction Status Date / Time atorvastatin Allergy Severe myalgias, Verified 01/04/25 11:02 tongue swelling captopril Allergy Severe tongue Verified 01/04/25 11:02 swelling rivaroxaban (From Xarelto) Allergy Severe tongue Verified 01/04/25 11:02 swelling glimepiride Allergy Intermediate mouth Verified 01/04/25 11:02 blisters levofloxacin (From Levaquin) Allergy Intermediate leg pain Verified 01/04/25 11:02 dapagliflozin (From Farxiga) Allergy Unknown Rash Verified 01/04/25 11:02 azithromycin (From Zithromax) AdvReac Severe blisters Verified 01/04/25 11:02 metolazone AdvReac Severe Rash/Itchin Verified 01/04/25 11:02 g pravastatin AdvReac Intermediate itching Verified 01/04/25 11:02 Surgical History History of implantable cardiac defibrillator (ICD) Hx of arthroscopic knee surgery Hx of right cataract extraction Hx of left cataract extraction History of esophagogastroduodenoscopy (EGD) History of right-sided carotid endarterectomy History of electrophysiologic study History of left heart catheterization Status post mitral valve annuloplasty Hx of CABG (~11/14/09) Social History household members: none Smoking Status: Former smoker how long ago did patient quit smokin years ago alcohol intake: never substance use type: does not use caffeine: No what type of physical activity do you participate in: walking frequency: daily duration: 15-30 minutes/day seatbelt use: always do you feel safe at home: Yes Review of Systems (Anesthesia) ROS Narrative System reviewed and no additional complaints, except as documented.
[2025-01-09] MEDS: Lactated Ringers 1,000 ML 15 ML IV (12:58)
--- NOTE | 2025-01-09 13:00 | EGD_PTH ---
PATIENT: JUAN DAVID HERNÁNDEZ LOC: EN U#:[id number] AGE/SX: 84/M ROOM: RE01/09/[address]: Dr. Checo Chavez DO : 1940 BED: DIS: 01/09/2025 SPEC #: [id number] RECD: 01/10/25 07:36 STATUS: RICCO JONI #: [id number] BELKIS: 01/09/25 13:[address]: Checo Chavez DEPT: SURGICAL PATHOLOGY RECD BY: German Calle ENTERED: 01/10/25 12:02 SP TYPE: EGD BIOPSY KIANA DR: Dr. Jose Enrique Finney MD Tissues: A - Esophagus, NOS Procedures: Special Stain Group I Surgery Specimen Level IV GMS Stain (control) HEADER OPERATION: EGD with biopsy PRE-OP DIAGNOSIS: Gastric ulcer TISSUE SUBMITTED: A- Distal esophagus biopsy MICROSCOPIC DIAGNOSIS A. Esophagus, distal, biopsy: * Columnar mucosa negative for goblet cell metaplasia. * Scant squamous mucosa with reactive changes and mild acute inflammation. * PASD stain negative for fungal organisms. MICROSCOPIC DESCRIPTION Slides are reviewed. All matched controls reacted appropriately. These tests were developed and their performance characteristics determined by [facility]. They may not have been cleared or approved by the [place]. Food and Drug Administration. The FDA has determined that such clearance or approval is not necessary.? The above immunohistochemical/dualISH?markers are reviewed by the Pathologist. GROSS DESCRIPTION A. Received in formalin labeled with the patient's name and date of . Designated as distal esophagus BX are 2 kang tissue fragments, 0.4 cm and 0.6 cm. Entirely submitted in 1 cassette. [facility] 01/10/2025 CPT:01299, 03604
[2025-01-09 13:20] LABS: Bedside Glucose 134 mg/dL (74-106)
--- NOTE | 2025-01-09 13:39 | OP.EGD_ITS ---
Patient Name: Baljeet Hogan Procedure Date: 01/09/2025 1:21 PM Date of : 1940 Age: 84 Procedure: Upper GI endoscopy Indications: Peptic ulcer Providers: Checo Chavez DO Medicines: Monitored Anesthesia Care Patient Profile: This is an 84 year old male. Refer to note in patient chart for documentation of history and physical. Patient has symptoms. Complications: No immediate complications. Procedure: Pre-Anesthesia Assessment: - Prior to the procedure, a History and Physical was performed, and patient medications and allergies were reviewed. The patient is competent. The risks and benefits of the procedure and the sedation options and risks were discussed with the patient. All questions were answered and informed consent was obtained. Patient identification and proposed procedure were verified by the physician in the pre-procedure area. Mental Status Examination: alert and oriented. Airway Examination: normal oropharyngeal airway and neck mobility. Respiratory Examination: clear to auscultation. CV Examination: normal. Prophylactic Antibiotics: The patient does not require prophylactic antibiotics. Prior Anticoagulants: The patient has taken no 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 or antiplatelet agents except for NSAID medication. ASA Grade Assessment: II - A patient with mild systemic disease. After reviewing the risks and benefits, the patient was deemed in satisfactory condition to undergo the procedure. The anesthesia plan was to use monitored anesthesia care (MAC). Immediately prior to administration of medications, the patient was re-assessed for adequacy to receive sedatives. The heart rate, respiratory rate, oxygen saturations, blood pressure, adequacy of pulmonary ventilation, and response to care were monitored throughout the procedure. The physical status of the patient was re-assessed after the procedure. After obtaining informed consent, the endoscope was passed under direct vision. Throughout the procedure, the patient's blood pressure, pulse, and oxygen saturations were monitored continuously. The Endoscope was introduced through the mouth, and advanced to the second part of duodenum. The upper GI endoscopy was accomplished without difficulty. The patient tolerated the procedure well. Scope In: 1:32:26 PM Scope Out: 1:35:43 PM Total Procedure Duration Time 0 hours 3 minutes 17 seconds Findings: The Z-line was irregular and was found 39 cm from the incisors. Biopsies were taken with a cold forceps for histology. Verification of patient identification for the specimen was done. Estimated blood loss was minimal. No gross lesions were noted in the entire examined stomach. No gross lesions were noted in the entire examined duodenum. Impression: - Z-line irregular, 39 cm from the incisors. Biopsied. - No gross lesions in the entire stomach. - No gross lesions in the entire examined duodenum. Recommendation: - Discharge patient to home. - Resume previous diet. - Continue present medications. - Await pathology results. Procedure Code(s): --- Professional --- 22253, Esophagogastroduodenoscopy, flexible, transoral; with biopsy, single or multiple CPT copyright 2021 [employer]. All rights reserved. The codes documented in this report are preliminary and upon caramel cutter helper review may be revised to meet current compliance requirements. Checo Chavez DO 01/09/2025 1:39:04 PM This report has been signed electronically. Number of Addenda: 0 Note Initiated On: 01/09/2025 1:21 PM
--- NOTE | 2025-01-09 13:40 | OP.CCLET_ITS ---
01/09/2025 Jose Enrique Finney [address] [place] [address] Re : Upper GI endoscopy procedure for Baljeet Hogan Dear Dr. Finney This procedure was performed on Thursday, January 09, 2025. My impressions and recommendations are as follows: Impressions : - Z-line irregular, 39 cm from the incisors. Biopsied. - No gross lesions in the entire stomach. - No gross lesions in the entire examined duodenum. Recommendations : - Discharge patient to home. - Resume previous diet. - Continue present medications. - Await pathology results. My findings are described in the full procedure note, which is enclosed. If I can be of further assistance, please feel free to contact me at . Sincerely, Checo Chavez, 01/09/2025 1:39:04 PM This report has been signed electronically.
--- NOTE | 2025-01-09 13:45 | PCM.POST.ANE ---
Anesthesia: Postop Eval I Current Vital Signs Temperature: 97.9 F Pulse Rate: 60 Blood Pressure: 114/69 Respiratory Rate: 16 Pulse Ox: 98 Oxygen Delivery Method: Room Air Assessment Airway patent: Yes Spontaneous unlabored respirations: Yes Mental status: Asleep nausea: No Vomiting: No Anesthesia Complication: No Fluid Hydration Crystalloid volume administer (ml): 400 Total IV fluid infused: 400 Progress Note Anesthesia document: Postop Eval 1 completed: Yes
--- NOTE | 2025-01-09 13:56 | PCM.POSTANE2 ---
Anesthesia Postop Eval I Sum Postop Eval Completion status Anesthesia document: Postop Eval 1 completed: Yes Anesthesia Postop Eval I Summary Anesthesia Postop Eval I Summary: Anesthesia Postop Eval I: Assessment Summary Airway patent Yes 01/09/25 13:46 [email or web address] Spontaneous unlabored Yes 01/09/25 13:46 [email or web address] respirations Mental status Asleep 01/09/25 13:46 [email or web address] nausea No 01/09/25 13:46 [email or web address] Vomiting No 01/09/25 13:46 [email or web address] Anesthesia Postop Eval I: Fluid Summary Crystalloid volume administer 400 01/09/25 13:46 [email or web address] (ml) Colloids volume administered ( ml) Blood Product volume administered (ml) Total IV fluid infused 400 01/09/25 13:46 [email or web address] Anesthesia Postop Eval I: Summary Notes Anesthesia Complication No 01/09/25 13:46 [email or web address] Anesthesia Complication Comment: Post-operative progress note Anesthesia: Postop Eval II Evaluation Mental status: Awake Pain Level: 0 nausea: No Vomiting: No
== END 2025-01-09 14:31 | disposition home or self-care (01) ==
LOC: EN 12:11 → AC 12:13
PROVIDERS: PCP Family Medicine; Referring Provider Family Medicine; Visit Provider Internal Medicine Gastroenterology
PROC: 0DJ08ZZ Inspection of Upper Intestinal Tract, Via Natural or Artificial Opening Endoscopic (ICD-10-PCS; CPT 43235; principal; 2025-01-09 12:55)
DX: K20.90 Esophagitis, unspecified without bleeding (principal); I11.0 Hypertensive heart disease with heart failure; I50.9 Heart failure, unspecified; I48.0 Paroxysmal atrial fibrillation; E11.40 Type 2 diabetes mellitus with diabetic neuropathy, unspecified; Z79.4 Long term (current) use of insulin; Z79.01 Long term (current) use of 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s; I25.10 Atherosclerotic heart disease of native coronary artery without angina pectoris; E78.2 Mixed hyperlipidemia; Z87.891 Personal history of nicotine dependence; Z95.1 Presence of aortocoronary bypass graft; K27.9 Peptic ulcer, site unspecified, unspecified as acute or chronic, without hemorrhage or perforation
CPT/HCPCS: 43239; 82962; 88305; 88312; J2405

== ENCOUNTER 2025-02-13 15:06 | Outpatient (CLI) | payer MEDICARE, BC, SELFPAY ==
[2025-02-13 17:49] LABS: Hematocrit 38.8 % (40-54); Hemoglobin 12.6 g/dL (13.0-16.5); Immature Granulocytes Count 0.030 X10^3/uL (0.0-0.0); Mean Corp Hgb Conc 32.5 g/dL (32-36); Mean Corpuscular Volume 91.5 fL (80-94); Mean Platelet Vol. 10.7 fl (6.2-12.0); NRBC Flagged by Analyzer 0 % (0-5); Platelet Count 173 K/mm3 (150-450); RBC Distribution Width CV 14.7 % (11.6-14.6); RBC Distribution Width SD 49.4 fl (35.1-43.9); Red Blood Count 4.24 M/mm3 (4.6-6.2); White Blood Count 6.8 K/mm3 (4.4-11.0)
[2025-02-13 19:14] LABS: AST(SGOT) 32 U/L (<=37); Alanine Aminotransfer ALT/SGPT 41 U/L (<=46); Albumin, Serum 4.0 g/dL (3.4-4.8); Alkaline Phosphatase 123 U/L (40-129); Anion Gap 13 (5-15); BUN 29 mg/dL (4-19); BUN/Creat Ratio 22.4 RATIO (10-20); Calcium,Total 9.1 mg/dL (7.6-11.0); Carbon Dioxide 21.7 mmol/L (21.0-32.0); Chloride 101 mmol/L (98-108); Cholesterol 96 mg/dL (<=200); Globulin 2.9 g/dL (2.2-4.2); Glucose 295 mg/dL (70-99); Low Density Lipoprotein Calc. 47 mg/dL; Potassium 4.1 mmol/L (3.3-5.1); Triglycerides 101 mg/dL; Very Low Density Lipoprotein 20 mg/dL (5-40); cholesterol:hdl ratio screen 3.34
[2025-02-13 20:03] LABS: Ferritin 104 ng/mL (37-417); Iron 101 ug/dL (65-175); Iron Binding Capacity,Total 304 ug/dL (250-450); Iron Binding Capacity,Unsat 203 ug/dL (228-428); Magnesium 2.3 mg/dL (1.5-2.2); Vitamin B12 411 pg/mL (180-914); Vitamin D,25 Hydroxy 51.7 ng/mL (30-100)
== END 2025-02-13 23:59 | disposition home or self-care (01) ==
LOC: MFPLAB 15:06
PROVIDERS: PCP Family Medicine; Referring Provider Family Medicine; Visit Provider Family Medicine
DX: E11.22 Type 2 diabetes mellitus with diabetic chronic kidney disease (principal); E11.65 Type 2 diabetes mellitus with hyperglycemia; E11.59 Type 2 diabetes mellitus with other circulatory complications; D64.9 Anemia, unspecified; R53.83 Other fatigue; N18.9 Chronic kidney disease, unspecified
CPT/HCPCS: 36415; 80053; 80061; 82306; 82607; 82728; 83036; 83540; 83550; 83735; 84439; 84443; 85025

== ENCOUNTER → 2025-05-17 | Outpatient (CLI) | payer MEDICARE, BC, SELFPAY ==
[2025-05-17 11:46] LABS: Mucous, Urine 0 SEEN /hpf (<or=2+); Red Blood Cells-Urine 0 SEEN /hpf (0-5)
[2025-05-17 14:55] LABS: Color, Urine Yellow (Yellow); Glucose, Dipstick Normal (Normal); Ketone-Dipstick Negative (Negative); Leukocyte Esterase-Dipstick Negative /ul (Negative); Nitrite-Dipstick Negative (Negative); Occult Blood-Urine Negative /ul (Negative); Protein-Dipstick 30 mg/dl (Negative); Specific Gravity, Urine 1.015 (1.002-1.030); Urine Bilirubin Dipstick Negative (Negative)
[2025-05-17 14:57] LABS: Hematocrit 37.8 % (40-54); Hemoglobin 12.2 g/dL (13.0-16.5); Immature Granulocytes Count 0.010 X10^3/uL (0.0-0.0); Mean Corp Hgb Conc 32.3 g/dL (32-36); Mean Corpuscular Volume 96.7 fL (80-94); Mean Platelet Vol. 10.3 fl (6.2-12.0); NRBC Flagged by Analyzer 0 % (0-5); Platelet Count 171 K/mm3 (150-450); RBC Distribution Width CV 13.6 % (11.6-14.6); RBC Distribution Width SD 48.4 fl (35.1-43.9); Red Blood Count 3.91 M/mm3 (4.6-6.2); White Blood Count 5.3 K/mm3 (4.4-11.0)
[2025-05-17 15:03] LABS: Squamous Epithelial Cells - UA 0-5 SEEN /hpf (0-5)
[2025-05-17 15:17] LABS: Creatinine, Urine (random) 76.50 mg/dL (39.00-259.00); Microalbumin,Random Urine 80.9 mg/L (<20 mg/L); Protein, Urine (Random) 27.5 mg/dL (0.0-12.0); Protein:Creat Ratio 359 mg/g CRE (0-200)
[2025-05-17 15:23] LABS: PTHIN 54 pg/mL (11-61)
[2025-05-17 15:42] LABS: AST(SGOT) 30 U/L (<=37); Alanine Aminotransfer ALT/SGPT 26 U/L (<=46); Albumin, Serum 4.0 g/dL (3.4-4.8); Alkaline Phosphatase 124 U/L (40-129); Anion Gap 10 (5-15); BUN 22 mg/dL (4-19); BUN/Creat Ratio 20.0 RATIO (10-20); Calcium,Total 9.0 mg/dL (7.6-11.0); Carbon Dioxide 26.4 mmol/L (21.0-32.0); Chloride 101 mmol/L (98-108); Cholesterol 91 mg/dL (<=200); Globulin 2.9 g/dL (2.2-4.2); Glucose 215 mg/dL (70-99); Low Density Lipoprotein Calc. 46 mg/dL; Magnesium 2.3 mg/dL (1.5-2.2); Potassium 4.4 mmol/L (3.3-5.1); Triglycerides 82 mg/dL; Very Low Density Lipoprotein 16 mg/dL (5-40); Vitamin D,25 Hydroxy 46.8 ng/mL (30-100); cholesterol:hdl ratio screen 3.16
== END | disposition home or self-care (01) ==
LOC: MFPLAB 11:12
PROVIDERS: PCP Family Medicine; Visit Provider Family Medicine
DX: E11.22 Type 2 diabetes mellitus with diabetic chronic kidney disease (principal); E11.65 Type 2 diabetes mellitus with hyperglycemia; E11.59 Type 2 diabetes mellitus with other circulatory complications; E11.69 Type 2 diabetes mellitus with other specified complication; E55.9 Vitamin D deficiency, unspecified
CPT/HCPCS: 36415; 80053; 80061; 81001; 82043; 82306; 82570; 83036; 83735; 83970; 84156; 85025

== ENCOUNTER 2025-06-05 18:13 | Emergency (ER) | payer MEDICARE, BC, SELFPAY ==
[2025-06-05 18:14] VITALS: BP 151/97; PULSE 87; RESP 20; TEMP 36.6; O2SAT 100; BMI 24.0
--- OUTSIDE RECORDS SUMMARY | 2025-06-05 18:50 | XMS RPT_ITS | CCD ---
Author Organization [facility] Care Team Providers Care Land Development Manager Name Role Phone Pamela RN, Harper Keenan Unavailable [phone] Magalys WALSH, Glenn Lerma Unavailable [phone] Pamela RN, Harper Keenan Unavailable [phone] Pamela RN, Harper Keenan Unavailable [phone] [facility] Nurse Unavailable Unavailable CHRISTEL Sanchez, Harper Kenyon Unavailable [phone] DAYANNA Hammonds, Stephanie Kenyon Unavailable Unavailable Pamela RN, Harper Keenan Unavailable [phone] Pamela ALAN, Harper Keenan Unavailable [phone] Pamela ALAN, Harper Keenan Unavailable [phone] Pamela RN, Harper Keenan Unavailable [phone] DAYANNA Hammonds, Stephanie M Unavailable Unavailable DAYANNA Hammonds, Stephanie M Unavailable Unavailable DAYANNA Hammonds, Stephanie M Unavailable Unavailable Inga Rooney Unavailable Unavailable CHRISTEL Sanchez, Harper Kenyon Unavailable [phone] Karolyn ALAN, Char Churchill Unavailable Unavailable Tayo, RN, Karissa Kenyon Unavailable Unavailmi mosher Unavailable Primary Care Provider UnavailDr. Jose Enrique Atkins Primary Care Provider Dr. Glenn Dowell Attending Provider [phone] Dr. Glenn Dowell Referring Provider [phone] Dr. Jose Enrique Finney Primary Care Provider Dr. Glenn Dowell Attending Provider [phone] Dr. Glenn Dowell Referring Provider Dr. Jose Enrique Finney Primary Care Provider Dr. Glenn Dowell Attending Provider Dr. Glenn Dowell Referring Provider Dr. Jose Enrique Finney Referring Provider Natalie Hammonds Attending Provider Unavailable Dr. Jose Enrique Finney Primary Care Provider Dr. Jose Enrique Finney Referring Provider Natalie Hammonds Attending Provider Unavailable Dr. Glenn Dowell Attending Provider Harper Santiago Attending Provider Unavailable Dr. Jose Enrique Finney Primary Care Provider Dr. Jose Enrique Finney Referring Provider Dr. Glenn Dowell Attending Provider Dr. Bhavesh Rios Attending Provider [phone] Bhavesh Rios Referring Provider [phone] Natalie Hammonds Attending Provider Unavailable Unavailable Primary Care Provider UnavailDr. Jose Enrique Atkins Primary Care Provider Dr. Jose Enrique Finney Referring Provider Daniel DOYLE, YANIRA Kenyon Attending Provider Dr. Jose Enrique Finney Primary Care Provider Dr. Bhavesh Rios Attending Provider [phone] Bhavesh Rios Referring Provider [phone] Jose Enrique Finney Primary Care Provider Dr. Jose Enrique Finney Referring Provider Natalie Hammonds Attending Provider Unavailable Dr. Jose Enrique Finney Primary Care Provider Dr. Bhavesh Rios Attending Provider Dr. Bhavesh Rios Referring Provider Dr. Jose Enrique Finney Primary Care Provider Dr. Bhavesh Rios Attending Provider [phone] Bhavesh Rios Referring Provider Dr. Jose Enrique Finney Referring Provider Natalie Hammonds Attending Provider Unavailable Daniel DOYLE, PA Harper Kenyon Attending Provider Dr. Jose Enrique Finney Primary Care Provider Dr. Bhavesh Rios Attending Provider Dr. Jose Enrique Finney Referring Provider Daniel DOYLE, PA Harper Kenyon Attending Provider Blanca, Dr. Ospina Referring Provider [phone] Jose Enrique Finney MD Primary Care Provider Blanca WALSH, Dr. Ospina Attending Provider Dr. Bhavesh Rios MD Referring Provider Dr. Jose Enrique Finney MD Referring Provider Dr. Ponce Kent MD Attending Provider Harper Serrato Attending Provider Harper Serrato Referring Provider Charanjit WALSH, Dr. Hayden Emergency Provider Dr. Catracho Donohue MD Emergency Provider Maria Guadalupe WALSH, Dr. Kira Keenan Attending Provider Maria Guadalupe WALSH, Dr. Kira Keenan Admit Provider Dr. Kira Lerma MD Other Provider Dr. Bernabe Casey DO Attending Provider Dr. Bernabe Casey DO Other Provider Dr. Jose Enrique Finney MD Attending Provider Jemma CHEUNG, Dr. Enamorado Referring Provider Jemma CHEUNG, Dr. Enamorado Emergency Provider Landeros DO, Dr. Dunlap Admit Provider Unavail able Landeros DO, Dr. Dunlap Attending Provider Unav ailable Le DO, Dr. Enamorado Referring Provider Jemma CHEUNG, Dr. Enamorado Emergency Provider de Jesus DO, Dr. Dunlap Admit Provider Unavail able de Jesus DO, Dr. Dunlap Other Provider Unavail able Jocelynn WALSH, Dr. García Lerma Attending Provider Jocelynn WALSH, Dr. García Lerma Other Provider Friend , Dr. Kessler Attending Provider Jocelynn WALSH, Dr. García Lerma Referring Provider Joe MANZO-CGeeta Attending Provider Sharmin WALSH, Dr. Jose Enrique Mosher Primary Care Provider Blanca WALSH, Dr. Ospina Attending Provider Blanca WALSH, Dr. Ospina Referring Provider Dr. Jose Enrique Finney MD Primary Care Provider Dr. Jose Enrique Finney MD Referring Provider Sharmin WALSH, Dr. Jose Enrique Mosher Primary Care Provider [phone] Blanca WALSH, Dr. Ospina Attending Provider Blanca WALSH, Dr. Ospina Referring Provider Charanjit WALSH, Dr. Hayden Emergency Provider Maria Guadalupe WALSH, Dr. Kira Keenan Attending Provider Maria Guadalupe WALSH, Dr. Kira Keenan Admit Provider Maria Guadalupe WALSH, Dr. Kira Keenan Other Provider Dr. Bernabe Casey DO Attending Provider Carmela CHEUNG, Dr. Kidd Other Provider Sharmin WALSH, Dr. Jose Enrique Mosher Attending Provider [phone] Dr. Jose Enrique Finney MD Referring Provider [phone] Jemma CHEUNG, Dr. Enamorado Referring Provider Jemma CHEUNG, Dr. Enamorado Emergency Provider de Jesus DO, Dr. Dunlap Admit Provider Unavail able de Jesus CHEUNG, Dr. Dunlap Other Provider Unavail able Jocelynn WALHS, Dr. García Lerma Attending Provider Jocelynn WLASH, Dr. García Lerma Other Provider Kathy CHEUNG, Dr. Kessler Attending Provider Jocelynn WALSH, Dr. García Lerma Referring Provider Joe COMMERCIAL LOAN PROCESSOR-C, Geeta Attending Provider Harper Serrato Attending Provider Joe COMMERCIAL LOAN PROCESSOR-C, Geeta Referring Provider Sharmin WALSH, Dr. Jose Enrique Mosher Primary Care Provider Blanca WALSH, Dr. Ospina Attending Provider [phone] Blanca WALSH, Dr. Ospina Referring Provider Kathy CHEUNG, Dr. Kessler Other Provider Sharmin WALSH, Dr. Jose Enrique Mosher Primary Care Provider Blanca WALSH, Dr. Ospina Attending Provider Blanca WALSH, Dr. Ospina Referring Provider Sharmin WALSH, Dr. Jose Enrique Mosher Primary Care Provider Blanca WALSH, Dr. Ospina Attending Provider Blanca WALSH, Dr. Ospina Referring Provider Dr. Cesar Kidd DO Attending Provider Sharmin WALSH, Dr. Jose Enrique Mosher Primary Care Provider [phone] Sharmin WALSH, Dr. Jose Enrique Mosher Attending Provider Sharmin WALSH, Dr. Jose Enrique Mosher Referring Provider Harper Serrato Attending Provider Joe COMMERCIAL LOAN PROCESSOR-C, Geeta Attending Provider Joe COMMERCIAL LOAN PROCESSOR-CGeeta Referring Provider Blanca WALSH, Dr. Ospina Attending Provider Kathy CHEUNG, Dr. Kessler Attending Provider Kathy CHEUNG, Dr. Kessler Other Provider [phone] Marti CHENUG, Dr. Guerrero Attending Provider Sharmin WALSH, Dr. Jose Enrique Mosher Primary Care Provider Sharmin WALSH, Dr. Jose Enrique Mosher Attending Provider [phone] Sharmin WALSH, Dr. Jose Enrique Mosher Referring Provider Harper Serrato Attending Provider Sharmin WALSH, Dr. Jose Enrique Mosher Primary Care Provider [phone] Sharmin WALSH, Dr. Jose Enrique Mosher Attending Provider Sharmin WALSH, Dr. Jose Enrique Mosher Referring Provider Jsoe Enrique Finney Referring Unavailable Jose Enrique Finney Primary Care Unavailable Jose Enrique Finney Attending Unavailable Jose Enrique Finney Primary Care Unavailable Harper Serrato Referring Unavail able Harper Serrato Attending Unavail able Jose Enrique Finney Primary Care Unavailable Blanca, Bhavesh Referring Unavailable Blanca, [place] Attending Unavailable Jose Enrique Finney Primary Care Unavailable García Cabezas Attending Unavailable Germán Landeros Admitting Unavailable Germán Landeros Consulting Unavailable Orion Eastony Referring Unavailable Jose Enrique Finney Primary Care Unavailable Kira Lerma Admitting Unavailable Kira Lerma Consulting Unavailable Bernabe Casey Attending Unavailable García Cabezas Attending Unavailable Jose Enrique Finney Primary Care Unavailable Germán Landeros Consulting Unavailable Germán Landeros Admitting Unavailable Jemma Fei Referring Unavailable García Cabezas Consulting Unavailable Jose Enrique Finney Primary Care Unavailable Kira Lerma Attending Unavailable Jose Enrique Finney Primary Care Unavailable Blanca, Bhavesh Attending Unavailable Blanca, [place] Referring Unavailable Jose Enrique Finney Primary Care Unavailable Blanca, [place] Attending Unavailable Blanca, Bhavesh Referring Unavailable Schinner, Jose Enrique E Primary Care Unavailable Blanca, Bhavesh Referring Unavailable Blanca, [place] Attending Unavailable Schinner, Jose Enrique E Primary Care Unavailable Blanca, [place] Attending Unavailable Schinner, Jose Enrique E Primary Care Unavailable Blanca, [place] Referring Unavailable Blanca, [place] Attending Unavailable Schinner, Jose Enrique E Primary Care Unavailable Blanca, Bhavesh Referring Unavailable Blanca, Bhavesh Attending Unavailable Schinner, Jose Enrique E Referring Unavailable Schinner, Jose Enrique E Primary Care Unavailable Geeta Diaz Attending Unavailable Checo Chavez Attending Unavailable García Cabezas Referring Unavailable SchinnerJose Enrique E Primary Care Unavailable Schinchuy, Jose Enrique E Primary Care Unavailable Kira Lerma Admitting Unavailable Kira Lerma Consulting Unavailable Bernabe Casey Attending Unavailable Bernabe Casey Consulting Unavailable Germán Landeros Attending Unavailable SchinJose Enrique vera E Attending Unavailable SchJose Enrique borrero E Primary Care Unavailable SchJose Enrique borrero E Referring Unavailable Schinchuy, Jose Enrique E Primary Care Unavailable Harper Serrato Referring Unavail able Harper Serrato Attending Unavail able SchJose Enrique borrero E Primary Care Unavailable Checo Chavez Attending Unavailable Jose Enrique Finney E Referring Unavailable SchJose Enrique borrero E Primary Care Unavailable Blanca, [place] Attending Unavailable Schinchuy, Jose Enrique E Referring Unavailable Schinner, Jose Enrique E Primary Care Unavailable Cesar Kidd Attending Unavailable Schinchuy, Jose Enrique E Primary Care Unavailable Blanca, Bhavesh Attending Unavailable Schinner, Jose Enrique E Primary Care Unavailable Blanca, [place] Attending Unavailable Blanca, Bhavesh Referring Unavailable Schinner, Jose Enrique E Referring Unavailable Schinner, Jose Enrique E Primary Care Unavailable Ponce Kent Attending Unavailable Schinner, Jose Enrique E Referring Unavailable SchinnerJose Enrique E Primary Care Unavailable Harper Serrato Attending Unavail able SchJose Enrique borrero Attending Unavailable SchinJose Enrique vera E Referring Unavailable Schinner, Jose Enrique E Primary Care Unavailable SchinnerJose Enrique E Attending Unavailable Schinner, Jose Enrique E Primary Care Unavailable Schinner, Jose Enrique E Primary Care Unavailable Geeta Diaz Attending Unavailable Geeta Diaz Referring Unavailable SchinJose Enrique vera Attending Unavailable SchinJose Enrique vera E Primary Care Unavailable SchinJose Enrique vera E Referring Unavailable SchinJose Enrique vera E Attending Unavailable Schinner, Jose Enrique E Primary Care Unavailable Schinner, Jose Enrique E Referring Unavailable Schinner, Jose Enrique E Primary Care Unavailable Blanca, [place] Attending Unavailable Blanca, [place] Referring Unavailable Schinner, Jose Enrique E Primary Care Unavailable Blanca, Bhavesh Attending Unavailable Schinner, Jose Enrique E Primary Care Unavailable Friend, Checo Consulting Unavailable Friend, [place]co Attending Unavailable Schinner, Jose Enrique E Referring Unavailable Schinner, Jose Enrique E Referring Unavailable Schinner, Jose Enrique E Primary Care Unavailable Geeta Diaz Attending Unavailable Schinner, Jose Enrique E Primary Care Unavailable Harper Serrato Attending Unavail able Schinner, Jose Enrique E Referring Unavailable Schinner, Jose Enrique E Attending Unavailable Schinner, Jose Enrique E Referring Unavailable Schinner, Jose Enrique E Primary Care Unavailable Schinner, Jose Enrique E Attending Unavailable Schinner, Jose Enrique E Primary Care Unavailable Schinner, Jose Enrique E Referring Unavailable Allergies Allergy Classification Reported Allergen(s) Allergy Type Date of Onset Reaction(s) Facility (13 sources) azithromycin drug allergy 7 blisters, lip blisters [facility] Work Phone: [phone] (20 sources) captopril; Translations: [captopril] drug allergy 0 Swelling [facility] Work Phone: [phone] Comment on above: and mouth blisters (20 sources) metOLazone; Translations: [metolazone] drug allergy 6 [facility] Phone: [phone] (20 sources) rivaroxaban drug allergy 6 tongue swelling [facility] Work Phone: [phone] (1 source) atorvastatin Drug Allergy 9 [place], [place] (20 sources) Azithromycin Drug Allergy 7 Other (See Comments), Hives [place], [place] Comment on above: lip blisters (1 source) Ciprofloxacin Drug Allergy 0 Swelling [place], [place] (20 sources) rivaroxaban Drug Allergy 6 tongue swelling [place], [place] (20 sources) atorvastatin Drug Allergy 1 Swelling [facility] (20 sources) Pravastatin Drug Allergy 1 itching [facility] (1 source) catopril Allergy to substance 1 Tongue Swelling [facility] Work Phone: (20 sources) dapagliflozin Drug Allergy 2 Rash [facility] (1 source) chloroxine Drug Allergy 3 Swelling [facility] (20 sources) glimepiride Drug Allergy 3 mouth blisters [facility] (20 sources) levoFLOXacin Drug Allergy 3 leg pain [facility] (1 source) atorvastatin Drug Allergy 5 [facility] (1 source) Azithromycin Drug Allergy 5 [facility] (1 source) dapagliflozin Drug Allergy 5 [facility] (1 source) glimepiride Drug Allergy 5 [facility] (1 source) levoFLOXacin Drug Allergy 5 [facility] (1 source) Pravastatin Drug Allergy 5 [facility] (1 source) rivaroxaban Drug Allergy 5 [facility] Medications Current Medications Medication Drug Class(es) Dates Sig (Normalized) Sig (Original) acetaminophen 500 mg oral tablet (20 sources) Start: 10-17-2024 End: 12-20-2024 take 1 tablet by mouth every six hours as needed for pain Acetaminophen (Tylenol Extra Strength) 500 mg tablet Active 500 mg PO EVERY 6 HOURS as needed for back pain 60 0 December 20, 2024 4:54pm calcium ascorbate 500 mg oral tablet (15 sources) Start: 10-17-2024 take 1 tablet by mouth once daily, then take 1 tablet by mouth every other day Ascorbate Calcium (Vitamin C) 500 mg tablet Active 500 mg PO daily 90 1 October 17, 2024 12:00am take once tablet every other day with Fe tablet ferrous sulfate 325 mg oral tablet (20 sources) Start: 10-17-2024 End: 01-04-2025 take 1 tablet by mouth every other day in the morning Ferrous Sulfate 325 mg (65 mg iron) tablet Active 325 mg PO EVERY OTHER DAY January 04, 2025 12:00am take one tablet every other day in the morning Start: 01-14-2011 take 1 tablet by gisella th three times daily IRON TABS 50mg, One tablet by mouth three times daily FERROUS SULFATE TABS [id number] Heather Whitfield Start: 01-14-2011 End: 08-06-2011 take 1 tablet by mouth three times daily IRON TABS 50mg, One tablet by mouth three times daily FERROUS SULFATE TABS [id number] Yuri Barnett MD Start: 01-14-2011 End: 08-06-2011 take 1 tablet by mouth three times daily IRON TABS 50mg, One tablet by mouth three times daily FERROUS SULFATE TABS [id number] Yuri Barnett MD Start: 01-14-2011 take 1 tablet by gisella th three times daily IRON TABS 50mg, One tablet by mouth three times daily FERROUS SULFATE TABS [id number] Heather Whitfield 3 ml insulin detemir 100 unt/ml pen injector (20 sources) Insulin Analogue Start: 11-10-2020 Insulin Detem ir U-100 100 unit/mL (3 mL) insulin pen Active 32 U SC AT BEDTIME November 10, 2020 11:02am diabetes Start: 11-10-2020 Insulin Detemi r U-100 Active 32 UNIT SC AT BEDTIME November 10, 2020 10:02am Start: 11-10-2020 Insulin Detemi r U-100 Active 32 UNIT SC AT BEDTIME November 10, 2020 11:02am Start: 11-10-2020 Insulin Detemi r U-100 Active 28 UNIT SC AT BEDTIME November 10, 2020 11:02am Start: 04-11-2017 End: 11-10-2020 Insulin Detemir U-100 100 UN ITS/ML insulin pen Discontinued 22 U SC AT BEDTIME April 11, 2017 12:00am November 10, 2020 11:05am diabetes Start: 04-11-2017 End: 11-10-2020 Start: 04-11-2017 End: 11-10-2020 Insulin Detemir U-100 Discon tinued 22 UNITS SC AT BEDTIME April 11, 2017 12:00am November 10, 2020 11:05am Start: 10-02-2014 LEVEMIR 100 UN IT/ML SOLN Take as directed INSULIN DETEMIR [id number] Glenn Dowell MD Start: 10-02-2014 LEVEMIR 100 UN IT/ML SOLN Take as directed INSULIN DETEMIR [id number] Glenn Dowell MD Start: 10-02-2014 LEVEMIR 100 UN IT/ML SOLN Take as directed INSULIN DETEMIR [id number] Glenn Dowell MD Comment on above: INJECT 30 UNITS SUBC UTANEOUSLY DAILY 3 ml insulin lispro 100 unt/ml pen injector (20 sources) Insulin Analog Start: 11-01-2024 Insulin Lispro (Humalog Kwikpen Insulin) 100 unit/mL insulin pen Active 10 U SC THREE TIMES A DAY November 01, 2024 12:00am Start: 11-01-2024 Start: 12-24-2022 HUMALOG U-100 INSULIN 100 unit/mL injection INJECT 10 unit three times a day with meals 0 12/24/2022 Active Start: 03-17-2018 End: 11-01-2024 Insulin Lispro 100 UNIT/ML c artridge Discontinued 10 U SC THREE TIMES A DAY March 17, 2018 12:00am November 01, 2024 10:47am blood sugar Start: 03-17-2018 End: 11-01-2024 insulin lispro ( HUMALOG) 100 UNIT/ML injection vial Inject into the skin 3 times daily (before meals) 0 Active Comment on above: INJECT 10 unit three times a day with meals Multivitamin With Folic Acid (13 sources) Start: 04-11-2017 take 1 tablet by mouth once daily Multivitamin With Folic Acid Active 1 TABLET PO DAILY April 11, 2017 12:17pm Start: 04-11-2017 take 1 tablet by gisella th once daily Multivitamin With Folic Acid Active 1 TABLET PO DAILY April 10, 2017 11:00pm Start: 04-11-2017 take 1 tablet by gisella th once daily Multivitamin With Folic Acid Active 1 TABLET PO DAILY April 11, 2017 12:00am Multivitamin With Folic Acid 1 TABLET tablet (10 sources) Start: 04-11-2017 take 1 tablet by mouth once daily Multivitamin With Folic Acid 1 TABLET tablet Active 1 {tbl} PO DAILY April 11, 2017 12:00am supplement Start: 04-11-2017 take 1 tablet by gsiella th once daily Multivitamin With Folic Acid 1 TABLET tablet Active 1 {tbl} PO DAILY April 11, 2017 12:00am nitroglycerin 0.4 mg sublingual tablet (20 sources) Nitrate Vasodilator Start: 03-22-2023 Nitroglyce rin (Nitrostat) 0.4 mg tablet, sublingual Active 0.4 mg SL every 5 to 15 minutes as needed for chest pain 23 10March 22, 2023 12:00am do not exceed 3 doses per episode Start: 03-22-2023 Start: 03-22-2023 Nitroglycerin (Nitrostat) 0.4 mg tablet, sublingual Active 0.4 MG SL every 5 to 15 minutes March 22, 2023 12:00am do not exceed 3 doses per episode Start: 11-20-2020 End: 02-16-2023 Nitroglycerin 0.4 mg tablet, sublingual Discontinued 0.4 mg SL every 5 to 15 minutes as needed for Chest Pain 23 10December 01, 2020 9:11am February 16, 2023 9:55am Start: 11-20-2020 End: 02-16-2023 Nitroglycerin Discontinued 0 .4 MG SL every 5 to 15 minutes December 01, 2020 9:11am February 16, 2023 9:55am Start: 04-11-2017 End: 11-20-2020 Nitroglycerin 0.4 MG tablet Discontinued 0.4 mg SL Q5M as needed for Chest Pain 25 08July 12, 2017 10:28am November 20, 2020 5:10pm Start: 04-11-2017 End: 02-16-2023 Start: 04-11-2017 End: 11-20-2020 Nitroglycerin Discontinued 0 .4 MG SL Q5M July 12, 2017 10:28am November 20, 2020 5:10pm Start: 03-26-2013 NITROSTAT 0.4 MG SUBL 1 tablet under tongue every 5 min up to 3 X NITROGLYCERIN [id number] Harper Sanchez PA-C Start: 01-14-2011 NITROGLYCERIN 0.4 MG/HR PT24 1 tablet under tongue every 5 min up to 3 X NITROGLYCERIN [id number] Heather Whitfield pantoprazole 40 mg delayed release oral tablet (20 sources) Proton Pump Inhibitor Start: 10-13-2024 End: 10-17-2024 take 1 tablet by mouth twice daily 30 minutes before breakfast Pantoprazole 40 mg tablet,delayed release (DR/EC) Active 40 mg PO TWICE A DAY 180 October 17, 2024 12:00am take 30 minutes before breakfast and dinner Start: 10-13-2024 End: 10-17-2024 take 1 tablet by mouth once daily Pantoprazole (Protonix) 40 mg tablet,delayed release (DR/EC) Discontinued 40 mg PO DAILY 30 October 13, 2024 12:00am October 17, 2024 2:02pm microencapsulated potassium chloride 20 meq extended release oral tablet (20 sources) Start: 01-04-2025 take 1 tablet by mouth twice daily Potassium Chloride 20 mEq Tablet,Er Particles/Crystals Active 20 meq PO TWICE A DAY January 04, 2025 12:00am Start: 04-11-2017 End: 10-08-2024 take 1 tablet by mouth twice daily Potassium Chloride 20 mEq tablet,ER particles/crystals Discontinued 20 meq PO TWICE A DAY 180 April 16, 2024 8:43am October 08, 2024 4:09pm supplement Start: 04-11-2017 End: 01-04-2025 take 2 tablets by mouth twice daily Potassium Chloride 20 mEq tablet,ER particles/crystals Discontinued 40 meq PO TWICE A DAY 360 March 11, 2020 10:40am November 10, 2020 11:05am supplement Start: 04-11-2017 End: 01-04-2025 Potassium Chloride 20 mEq ta blet,ER particles/crystals Discontinued 30 meq PO TWICE A DAY 270 May 04, 2022 2:20pm February 16, 2023 10:00am supplement Start: 04-11-2017 End: 01-04-2025 Start: 04-11-2017 End: 01-04-2025 Start: 04-11-2017 End: 02-16-2023 take 1.5 tablets by mouth twice daily potassium chloride ER (KLOR-CON) 20 mEq tablet TAKE 1.5 TABLETS BY MOUTH TWICE DAILY for supplement 0 12/24/2022 Active Start: 12-31-2011 take 2 tablets by mo uth three times daily KLOR-CON M20 20 MEQ CR-TABS Two tablets by mouth three times daily POTASSIUM CHLORIDE BERTRAND CR [id number] Glenn Dowell MD Start: 12-31-2011 take 2 tablets by mo uth three times daily KLOR-CON M20 20 MEQ CR-TABS Two tablets by mouth three times daily POTASSIUM CHLORIDE BERTRAND CR [id number] Harper Santiago RN Start: 12-31-2011 take 1 tablet by gisella th twice daily KLOR-CON M20 20 MEQ CR-TABS One tablet by mouth twice daily POTASSIUM CHLORIDE BERTRAND CR [id number] Harper Sanchez PA-C Start: 12-31-2011 take 1 tablet by gisella th once daily KLOR-CON M20 20 MEQ CR-TABS One tablet by mouth daily POTASSIUM CHLORIDE BERTRAND CR [id number] Glenn Dowell MD Start: 12-31-2011 take 2 tablets by mo uth twice daily KLOR-CON M20 20 MEQ CR-TABS Two tablets by mouth twice daily POTASSIUM CHLORIDE BERTRAND CR [id number] Glenn Dowell MD Start: 12-31-2011 take 1 tablet by gisella th three times daily KLOR-CON M20 20 MEQ CR-TABS One tablet by mouth three times daily POTASSIUM CHLORIDE BERTRAND CR [id number] Glenn Dowell MD Start: 12-31-2011 take 1 tablet by gisella th three times daily KLOR-CON M20 20 MEQ CR-TABS One tablet by mouth three times daily POTASSIUM CHLORIDE BERTRAND CR [id number] Glenn Dowell MD Start: 12-31-2011 take 1 tablet by gisella th once daily KLOR-CON M20 20 MEQ CR-TABS One tablet by mouth daily POTASSIUM CHLORIDE BERTRAND CR [id number] Glenn Dowell MD Start: 12-31-2011 take 2 tablets by mo uth twice daily KLOR-CON M20 20 MEQ CR-TABS Two tablets by mouth twice daily POTASSIUM CHLORIDE BERTRAND CR [id number] Harper Santiago RN Start: 12-31-2011 take 2 tablets by mo uth twice daily KLOR-CON M20 20 MEQ CR-TABS Two tablets by mouth twice daily POTASSIUM CHLORIDE BERTRAND CR [id number] Harper Santiago RN Start: 12-31-2011 take 1 tablet by gisella th three times daily KLOR-CON M20 20 MEQ CR-TABS One tablet by mouth three times daily POTASSIUM CHLORIDE BERTRAND CR [id number] Glenn Dowell MD Start: 12-31-2011 take 1 tablet by gisella th twice daily KLOR-CON M20 20 MEQ CR-TABS One tablet by mouth twice daily POTASSIUM CHLORIDE BERTRAND CR [id number] NILA TolentinoC Start: 12-31-2011 take 1 tablet by gisella th once daily KLOR-CON M20 20 MEQ CR-TABS One tablet by mouth daily POTASSIUM CHLORIDE BERTRAND CR [id number] Glenn Dowell MD Start: 12-31-2011 take 1 tablet by gisella th three times daily KLOR-CON M20 20 MEQ CR-TABS One tablet by mouth three times daily POTASSIUM CHLORIDE BERTRAND CR [id number] Glenn Dowell MD Start: 12-31-2011 take 1 tablet by gisella th three times daily KLOR-CON M20 20 MEQ CR-TABS One tablet by mouth three times daily POTASSIUM CHLORIDE BERTRAND CR [id number] Harper Santiago RN Start: 12-31-2011 take 1 tablet by gisella th twice daily KLOR-CON M20 20 MEQ CR-TABS One tablet by mouth twice daily POTASSIUM CHLORIDE BERTRAND CR [id number] NILA TolentinoC Start: 12-31-2011 take 1 tablet by gisella th twice daily KLOR-CON M20 20 MEQ CR-TABS One tablet by mouth twice daily POTASSIUM CHLORIDE BERTRAND CR [id number] Bernabe Lombardi [employer] Start: 12-31-2011 take 1 tablet by gisella th once daily KLOR-CON M20 20 MEQ CR-TABS One tablet by mouth daily POTASSIUM CHLORIDE BERTRAND CR [id number] Glenn Dowell MD Start: 01-14-2011 take 1 tablet by gisella th once daily POTASSIUM CHLORIDE 20 MEQ PACK One tablet by mouth daily POTASSIUM CHLORIDE [id number] Heather Kostas Whitfield Start: 01-14-2011 take 1 tablet by gisella th once daily POTASSIUM CHLORIDE 20 MEQ PACK One tablet by mouth daily POTASSIUM CHLORIDE [id number] Heahter Whitfield Comment on above: TAKE 1.5 TABLETS BY MOUTH TWICE DAILY for supplement tamsulosin hydrochloride 0.4 mg oral capsule (20 sources) alpha-Adrenergic Myranda Start: take 1 capsule by mouth at bedtime Tamsulosin 0.4 mg capsule Active 0.4 mg PO AT BEDTIME November 01, 2024 12:00am Start: 11-10-2020 End: 10-17-2024 take 1 capsule by mouth once daily Tamsulosin 0.4 mg capsule Discontinued 0.4 mg PO DAILY November 10, 2020 12:00am October 17, 2024 2:00pm prostate Start: 05-27-2020 take 1 capsule by mo [facility] once daily tamsulosin (FLOMAX) 0.4 MG capsule Take 1 (ONE) Capsule BY MOUTH EVERY DAY 0 05/27/2020 Active Start: 01-14-2011 End: 04-22-2017 take 1 tablet by mouth once daily TAMSULOSIN HCL 0.4 MG CAPS One tablet by mouth daily TAMSULOSIN HCL [id number] NILA TolentinoC Comment on above: Take 0.4 mg by mouth once daily. zolpidem tartrate 5 mg oral tablet (20 sources) gamma-Aminobutyric Acid-ergic Agonist Start: 11-01-2024 take 1 tablet by mouth at bedtime as needed for sleep Zolpidem 5 mg tablet Active 5 mg PO AT BEDTIME as needed for sleep November 01, 2024 12:00am Start: 11-01-2024 Start: 11-10-2020 End: 10-17-2024 take 1 tablet by mouth at bedtime as needed Zolpidem (Ambien) 5 mg tablet Discontinued 5 mg PO AT BEDTIME as needed for insomnia November 10, 2020 12:00am October 17, 2024 2:00pm Start: 11-10-2020 End: 10-17-2024 Start: 05-16-2020 take 1 tablet by gisella th at bedtime as needed zolpidem (AMBIEN) 5 MG tablet TAKE 1 TABLET BY MOUTH AT BEDTIME NEEDED 0 05/16/2020 Active (20 sources) Start: 01-04-2025 Start: 10-17-2024 End: 01-04-2025 Start: 10-17-2024 Start: 10-11-2024 Start: 04-11-2017 Completed/Discontinued Medications Medication Drug Class(es) Dates Sig (Normalized) Sig (Original) apixaban 5 mg oral tablet (20 sources) Factor Xa Inhibitor Start: 07-26-2018 End: 02-24-2021 take 1 tablet by mouth twice daily Apixaban 5 mg tablet Discontinued 5 mg PO TWICE A DAY 180 3 January 30, 2020 4:16pm February 24, 2021 10:23am Start: 06-05-2018 End: 07-26-2018 take 1 tablet by mouth twice daily Apixaban (Eliquis) 2.5 mg tablet Discontinued 2.5 mg PO TWICE A DAY 180 3 July 20, 2018 10:45am July 26, 2018 7:03pm Start: 09-27-2016 End: 03-20-2018 take 1 tablet by mouth twice daily Apixaban 5 MG tablet Discontinued 5 mg PO TWICE A DAY April 11, 2017 12:00am March 20, 2018 7:46am Blood thinner Start: 08-04-2016 End: 09-15-2016 take 1 tablet by mouth twice daily ELIQUIS 5 MG TABS One tablet by mouth twice daily APIXABAN [id number] NILA TolentinoC Apixaban (ELIQUI S PO) Take by mouth 0 Active Comment on above: Take 5 mg by mouth t wice daily. aspirin 81 mg delayed release oral tablet (20 sources) Platelet Aggregation Inhibitor, Nonsteroidal Anti-inflammatory Drug Start: 11-10-2020 End: 01-26-2023 Aspirin (Adult Low Dose Aspirin) 81 mg tablet,delayed release (DR/EC) Discontinued 81 mg PO DAILY November 10, 2020 12:00am January 26, 2023 8:54am Start: 04-11-2017 End: 04-24-2018 take 1 tablet by mouth once daily Aspirin 81 MG tablet,chewable Discontinued 81 mg PO DAILY@0800 April 11, 2017 12:00am April 24, 2018 3:54pm Heart health Start: 01-14-2011 take 1 tablet by gisella th once daily ASPIRIN 325 MG TABS One tablet by mouth daily ASPIRIN [id number] Heather Whitfield Start: 01-14-2011 take 1 tablet by gisella th once daily ASPIRIN 81 MG TABS One tablet by mouth daily ASPIRIN [id number] Char Parr RN Start: 01-14-2011 take 1 tablet by gisella th once daily ADULT ASPIRIN EC LOW STRENGTH 81 MG TBEC One tablet by mouth daily ASPIRIN [id number] Omer Rodas Start: 01-14-2011 take 1 tablet by gisella th once daily ADULT ASPIRIN EC LOW STRENGTH 81 MG TBEC One tablet by mouth daily ASPIRIN [id number] Omer Y Clark Comment on above: once daily. atorvastatin 40 mg oral tablet (20 sources) HMG-CoA Reductase Inhibitor Start: 8 End: take 1 tablet by mouth once daily Atorvastatin 40 mg tablet Discontinued 40 mg PO DAILY 30 May 05, 2018 12:00am May 25, 2018 4:18pm Start: 05-05-2018 End: 06-29-2018 Atorvastatin 40 mg tablet Di scontinued 20 mg PO .COMPLEX 0 May 25, 2018 4:17pm June 29, 2018 1:02pm 20 mg PO every other day; Start: 05-05-2018 End: 06-29-2018 Start: 01-14-2011 End: 08-06-2011 LIPITOR 80 MG TABS 1/2 table t daily ATORVASTATIN CALCIUM [id number] Yuri Barnett MD azithromycin 250 mg oral tablet (20 sources) Macrolide Antimicrobial Start: 04-11-2017 End: 07-12-2017 take 1 tablet by mouth once daily Azithromycin 250 MG tablet Discontinued 250 mg PO DAILY 4 0 April 11, 2017 12:00am July 12, 2017 10:44am calcium carbonate 1500 mg / cholecalciferol 0.01 mg oral tablet (20 sources) Vitamin D Start: 02-16-2023 End: 09-27-2023 Calcium Carbonate-Vitamin D3 (Calcium 600 + D(3)) 600 mg-10 mcg (400 unit) tablet Discontinued 1 {tbl} PO DAILY February 16, 2023 12:00am September 27, 2023 11:48am Start: 02-16-2023 End: 09-27-2023 Start: 11-10-2020 End: 05-21-2021 Calcium Carbonate-Vitamin D3 (Calcium 600 With Vitamin D3) 600 mg(1,500mg) -400 unit tablet,chewable Discontinued 1 {tbl} PO DAILY November 10, 2020 12:00am May 21, 2021 10:04am Start: 11-10-2020 End: 05-21-2021 take 1 tablet by mouth once daily Calcium Carbonate-Vitamin D3 (Calcium 600 With Vitamin D3) 600 mg(1,500mg) -400 unit tablet,chewable Discontinued 1 TABLET PO DAILY November 10, 2020 12:00am May 21, 2021 10:04am carvedilol 12.5 mg oral tablet (20 sources) alpha-Adrenergic Myranda, beta-Adrenergic Myranda Start: 04-06-2013 End: 02-24-2021 take 1 tablet by mouth twice daily Carvedilol 12.5 mg tablet Discontinued 12.5 mg PO TWICE A DAY 180 3 January 30, 2020 4:16pm February 24, 2021 10:23am Start: 01-14-2011 take 1 tablet by gisella twice daily CARVEDILOL 6.25 MG TABS One tablet by mouth twice daily CARVEDILOL [id number] Glenn Dowell MD Comment on above: Take 12.5 mg by mout h twice daily. cefdinir 300 mg oral capsule (9 sources) Cephalosporin Antibacterial Start: 017 take 1 tablet by mouth twice daily CEFDINIR 300 MG CAPS One tablet by mouth twice daily x 2 more days CEFDINIR [id number] Glenn Dowell MD cyclobenzaprine hydrochloride 5 mg oral tablet (20 sources) Muscle Relaxant Start: 023 End: 025 take 1 tablet by mouth three times daily as needed for muscle spasms Cyclobenzaprine 5 mg tablet Discontinued 5 mg PO THREE TIMES A DAY as needed for muscle spasm February 16, 2023 12:00am October 08, 2024 4:27pm dapagliflozin 10 mg oral tablet (20 sources) Sodium-Glucose Cotransporter 2 Inhibitor Start: End: take 1 tablet by mouth once daily Dapagliflozin Propanediol (Farxiga) 10 mg tablet Discontinued 10 mg PO DAILY 30 06January 06, 2022 12:00am February 26, 2022 3:47pm fluticasone propionate 0.05 mg/actuat metered dose nasal spray (20 sources) Corticosteroid Start: End: take 50 ug nasal route once daily Fluticasone Propionate (Allergy Relief (Fluticasone)) 50 mcg/actuation spray,suspension Discontinued 1 NMA INTRANASAL DAILY November 10, 2020 12:00am July 11, 2024 11:53am administer into each nostril Start: 11-10-2020 take 1 spray(s) nasa l route once daily Fluticasone Propionate (Allergy Relief (Fluticasone)) 50 mcg/actuation spray,suspension Active 1 SPRAY INTRANASAL DAILY November 10, 2020 12:00am administer into each nostril Comment on above: Use in the nose. furosemide 40 mg oral tablet (20 sources) Loop Diuretic Start: 01-14-2011 End: 12-05-2024 take 1 tablet by mouth twice daily Furosemide 40 mg tablet Discontinued 40 mg PO TWICE A DAY 180 3 September 28, 2023 11:47am August 03, 2024 10:03am diuretic Start: 01-14-2011 End: 12-05-2024 Furosemide 40 mg tablet Disc ontinued 40 mg PO .COMPLEX 180 3 October 22, 2024 8:22am November 01, 2024 10:49am diuretic 40 mg orally decrease to once daily: May need to increase back to twice daily if SOB, swelling, etc.; Start: 01-14-2011 take 1 tablet by gisella th once daily LASIX 20 MG TABS One tablet by mouth daily FUROSEMIDE [id number] Glenn Dowell MD furosemide (LASI X) 20 MG tablet Take by mouth 2 times daily 0 Active Comment on above: Take by mouth. glipiZIDE er 5 mg 24 hr extended release oral tablet (20 sources) Sulfonylurea Start: 04-11-2017 End: 07-19-2017 take 2 tablets by mouth twice daily Glipizide 5 MG tablet Discontinued 10 mg PO TWICE A DAY April 11, 2017 12:00am July 19, 2017 12:06pm Start: 04-11-2017 End: 07-19-2017 take 10 mg by mouth twice daily Glipizide Discontinued 10 MG PO TWICE A DAY April 11, 2017 12:00am July 19, 2017 12:06pm Start: 06-01-2012 take 1 tablet by gisella th twice daily GLUCOTROL XL 10 MG [id number] One tablet by mouth twice daily GLIPIZIDE [id number] Yuri Barnett MD Start: 06-01-2012 take 1 tablet by gisella th twice daily GLUCOTROL XL 10 MG [id number] One tablet by mouth twice daily GLIPIZIDE [id number] Yuri Barnett MD Start: 06-01-2012 take 1 tablet by gisella th twice daily GLUCOTROL XL 10 MG [id number] One tablet by mouth twice daily GLIPIZIDE [id number] Yuri Barnett MD take 1 tablet by gisella th every twenty-four hours glipiZIDE (GLUCOTROL XL) 10mg 24 hr tablet Take 10 mg by mouth. 0 Active Comment on above: Take 10 mg by mouth. 24 hr isosorbide mononitrate 30 mg extended release oral tablet (20 sources) Start: 5 End: 4 take 1 tablet by mouth once daily, then take 1 tablet by mouth every twenty-four hours Isosorbide Mononitrate 30 mg tablet extended release 24 hr Discontinued 30 mg PO DAILY 90 3 June 20, 2023 9:10am June 18, 2024 1:50pm Comment on above: Take 30 mg by mouth once daily. lansoprazole 30 mg delayed release oral capsule (20 sources) Proton Pump Inhibitor Start: 2 take 1 tablet by mouth once daily PREVACID 30 MG CPDR One tablet by mouth daily LANSOPRAZOLE [id number] Glenn Dowell MD Start: 08-06-2011 End: 02-29-2012 take 1 tablet by mouth once daily LANSOPRAZOLE 30 MG TBDP One tablet by mouth daily LANSOPRAZOLE [id number] Yuri Barnett MD Start: 01-14-2011 End: 08-06-2011 take 1 tablet by mouth once daily PREVACID 30 MG CPDR One tablet by mouth daily LANSOPRAZOLE [id number] Yuri Barnett MD Start: 01-14-2011 End: 02-29-2012 take 1 tablet by mouth once daily LANSOPRAZOLE 30 MG TBDP One tablet by mouth daily LANSOPRAZOLE [id number] Yuri Barnett MD metOLazone 2.5 mg oral tablet (20 sources) Thiazide-like Diuretic Start: 07-15-2021 End: 02-16-2023 take 1 tablet by mouth once Metolazone 2.5 mg tablet Discontinued 2.5 mg PO ONCE 14 May 05, 2022 8:16am September 24, 2022 3:41pm diuretic Start: 07-15-2021 End: 02-16-2023 Start: 04-11-2017 End: 11-13-2018 take 1 tablet by mouth once Metolazone 2.5 MG tablet Discontinued 2.5 mg PO MO April 11, 2017 12:00am November 13, 2018 11:28am diuretic Start: 04-11-2017 End: 11-13-2018 Start: 09-16-2016 METOLAZONE 5 M G TABS 2.5 mg Tuesday and 30 minutes prior to lasix METOLAZONE [id number] Harper Sanchez PA-C Start: 09-16-2016 METOLAZONE 5 M G TABS Tuesday and 30 minutes prior to lasix METOLAZONE [id number] Harper Sanchez PA-C Start: 10-08-2015 End: 11-24-2015 METOLAZONE 5 MG TABS Tuesday and 30 minutes prior to lasix METOLAZONE [id number] Harper Sancehz PA-C mirtazapine 15 mg oral tablet (20 sources) Start: 02-16-2023 End: 10-08-2024 take 1 tablet by mouth at bedtime Mirtazapine 15 mg tablet Discontinued 15 mg PO AT BEDTIME February 16, 2023 12:00am October 08, 2024 4:17pm Start: 02-16-2023 End: 10-08-2024 MULTIVITAMIN TABS (MULTIPLE VITAMINS-MINERALS) (20 sources) Start: 08-06-2011 take 1 tablet by mouth once daily MULTIVITAMIN TABS (MULTIPLE VITAMINS-MINERALS) One tablet by mouth daily MULTIVITAMIN TABS (MULTIPLE VITAMINS-MINERALS) Yuri Barnett MD Start: 08-06-2011 take 1 tablet by gisella once daily MULTIVITAMIN TABS (MULTIPLE VITAMINS-MINERALS) One tablet by mouth daily MULTIVITAMIN TABS (MULTIPLE VITAMINS-MINERALS) Yuri Barnett MD niacin 500 mg extended release oral tablet (20 sources) Nicotinic Acid Start: 01-14-2011 End: 10-02-2014 take 1 tablet by mouth at bedtime NIASPAN 500 MG CR-TABS One tablet by mouth at bedtime. NIACIN (ANTIHYPERLIPIDEMIC) [id number] Glenn Dowell MD Start: 01-14-2011 End: 10-02-2014 take 1 tablet by mouth at bedtime NIASPAN 500 MG CR-TABS One tablet by mouth at bedtime. NIACIN (ANTIHYPERLIPIDEMIC) [id number] Glenn Dowell MD pioglitazone 45 mg oral tablet (20 sources) Peroxisome Proliferator Receptor alpha Agonist, Peroxisome Proliferator Receptor gamma Agonist, Thiazolidinedione Start: 04-11-2017 End: 07-19-2017 take 1 tablet by mouth once daily Pioglitazone 45 MG tablet Discontinued 45 mg PO DAILY April 11, 2017 12:00am July 19, 2017 12:06pm Start: 11-12-2011 End: 06-01-2012 take 1 tablet by mouth once daily ACTOS 45 MG TABS One tablet by mouth daily PIOGLITAZONE HCL [id number] Yuri Barnett MD Start: 01-14-2011 End: 02-29-2012 take 1 tablet by mouth once daily ACTOS 30 MG TABS (PIOGLITAZONE HCL) One tablet by mouth daily ACTOS 30 MG TABS (PIOGLITAZONE HCL) Yuri Barnett MD pravastatin sodium 20 mg oral tablet (20 sources) HMG-CoA Reductase Inhibitor Start: 04-30-2021 End: 01-11-2022 take 1 tablet by mouth at bedtime Pravastatin 20 mg tablet Discontinued 20 mg PO AT BEDTIME 90 3 April 30, 2021 4:31pm January 11, 2022 9:21am Start: 04-30-2021 End: 01-11-2022 rivaroxaban 15 mg oral tablet (20 sources) Factor Xa Inhibitor Start: 04-08-2016 End: 04-12-2016 take 1 tablet by mouth once daily XARELTO 15 MG TABS One tablet by mouth daily RIVAROXABAN [id number] Bhavesh Rios MD rosuvastatin calcium 40 mg oral tablet (20 sources) HMG-CoA Reductase Inhibitor Start: 07-07-2021 End: 06-18-2024 take 1 tablet by mouth once daily Rosuvastatin 40 mg tablet Discontinued 40 mg PO DAILY 30 June 21, 2023 9:10am June 18, 2024 9:34am Start: 06-04-2019 End: 04-30-2021 take 1 tablet by mouth once daily Rosuvastatin 40 mg tablet Discontinued 40 mg PO DAILY 90 3 November 05, 2019 9:44am April 30, 2021 4:23pm Start: 11-12-2018 End: 06-04-2019 Rosuvastatin 5 MG tablet Discontinued 40 mg PO AT BEDTIME November 12, 2018 12:00am June 04, 2019 4:14pm Start: 11-12-2018 End: 06-04-2019 Start: 11-12-2018 End: 06-04-2019 take 40 mg by mouth at bedtime Rosuvastatin Discontinu ed 40 MG PO AT BEDTIME November 12, 2018 12:00am June 04, 2019 4:14pm Start: 06-29-2018 End: 11-12-2018 take 1 tablet by mouth once daily Rosuvastatin (Crestor) 40 mg tablet Discontinued 40 mg PO DAILY 90 July 20, 2018 10:45am November 12, 2018 9:53am Start: 04-11-2017 End: 05-05-2018 take 1 tablet by mouth at bedtime Rosuvastatin 40 MG tablet Discontinued 40 mg PO AT BEDTIME 90 July 07, 2017 1:00pm May 05, 2018 3:09pm Start: 04-07-2011 End: 08-06-2011 take 1 tablet by mouth once daily at bedtime CRESTOR 40 MG TABS One tablet by mouth daily at bedtime ROSUVASTATIN CALCIUM [id number] Yuri Barnett MD Comment on above: Take 40 mg by mouth once daily. sucralfate 1000 mg oral tablet (16 sources) Aluminum Complex Start: 5 End: 5 take 1 tablet by mouth three times daily before mealtime Sucralfate 1 gram Tablet Discontinued 1 g PO THREE TIMES DAILY BEFORE MEALS 42 14 0 October 13, 2024 12:00am November 01, 2024 10:48am valsartan 80 mg oral tablet (20 sources) Angiotensin 2 Receptor Myranda Start: 1 End: 7 take 1 tablet by mouth twice daily DIOVAN 80 MG TABS One tablet by mouth twice daily VALSARTAN [id number] Glenn Dowell MD warfarin sodium 4 mg oral tablet (20 sources) Vitamin K Antagonist Start: 7 End: 7 COUMADIN 4 MG TABS take as directed WARFARIN SODIUM [id number] Zuri Butterfield RN Start: 04-12-2016 End: 08-04-2016 take 2 tablets by mouth once daily, then take 6 tablets by mouth in the evening COUMADIN 2 MG TABS Two tablets by mouth daily after 6 pm, or as directed WARFARIN SODIUM [id number] Char Parr RN Problems Active Problems Problem Classification Problem Date Documented Date Episodic/Chronic Acute and unspecified renal failure (20 sources) Renal failure syndrome; Translations: [Disorder of kidney and ureter, unspecified] Onset: 10-05-2016 10-05-2016 Chronic Cardiac dysrhythmias (20 sources) Paroxysmal ventricular tachycardia; Translations: [Permanent atrial fibrillation ] Onset: 01-14-2011 01-14-2011 Chronic Comment on above: ON ELIQUIS/LAST DOSE 01/05/25 Chronic kidney disease (20 sources) Chronic kidney disease stage 2; Translations: [Chronic kidney disease, stage 2 (mild)] Onset: 10-13-2024 10-12-2024 Chronic Chronic ulcer of skin (20 sources) Pressure ulcer of other site, stage 2; Translations: [Pressure injury of right foot, stage 2] 02-16-2023 Chronic Complication of device; implant or graft (20 sources) Atherosclerosis of coronary artery bypass graft(s) without angina pectoris; Translations: [Atherosclerosis of coronary artery bypass graft(s) without angina pectoris] Onset: 03-31-2016 03-31-2016 Chronic Conduction disorders (20 sources) Automatic implantable cardiac defibrillator in situ; Translations: [Presence of automatic (implantable) cardiac defibrillator] Chronic Comment on above: atrial lead and ICD 03/02/2007; RV lead replacement d/t fractured sprint daniel lead with ICD shocks 01/03/2012 Coronary atherosclerosis and other heart disease (20 sources) Coronary arteriosclerosis; Translations: [Coronary atherosclerosis] Onset: 01-14-2011 01-14-2011 Chronic Comment on above: Status post PCI and CABG with an ERWIN to LAD, SVG to first LCx, and second LCx in October 1999 Deficiency and other anemia (1 source) Iron deficiency anemia secondary to blood loss (chronic); Translations: [Iron deficiency anemia secondary to blood loss (chronic)] Onset: 10-30-2024 Chronic Diabetes mellitus with complications (20 sources) Foot ulcer due to type 2 diabetes mellitus; Translations: [Type 2 diabetes mellitus with foot ulcer] Onset: 12-27-2024 02-16-2023 Chronic Diabetes mellitus without complication (20 sources) Type 2 diabetes mellitus without complication; Translations: [Type 2 diabetes mellitus without complications] Onset: 04-29-2020 04-29-2020 Chronic Disorders of lipid metabolism (20 sources) Hyperlipidemia; Translations: [Mixed hyperlipidemia] Onset: 01-14-2011 01-14-2011 Chronic Essential hypertension (20 sources) Hypertensive disorder; Translations: [Essential hypertension] Onset: 01-14-2011 01-14-2011 Chronic Gastroduodenal ulcer (except hemorrhage) (20 sources) Gastric ulcer; Translations: [Gastric ulcer, unspecified as acute or chronic, without hemorrhage or perforation] Onset: 01-22-2025 10-17-2024 Chronic Heart valve disorders (20 sources) Mitral valve disorder; Translations: [Non-rheumatic mitral regurgitation ] Onset: 01-14-2011 01-14-2011 Chronic Open wounds of head; neck; and trunk (20 sources) Open wound of head; Translations: [Unspecified open wound of other part of head, initial encounter] 02-16-2023 Episodic Osteoarthritis (10 sources) Osteoarthritis of left knee joint; Translations: [Unilateral primary osteoarthritis, left knee] 01-28-2025 Chronic Other aftercare (20 sources) Long-term current use of 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; Translations: [assisted (current) use of 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s] Onset: 04-29-2020 04-29-2020 Episodic Other aftercare (19 sources) Long-term current use of diuretic; Translations: [Encounter for therapeutic drug level monitoring] 08-03-2024 Episodic Other circulatory disease (20 sources) Carotid bruit; Translations: [Other specified symptoms and signs involving the circulatory and respiratory systems] 03-22-2023 Episodic Other circulatory disease (7 sources) Other specified symptoms and signs involving the circulatory and respiratory systems; Translations: [Other symptoms involving cardiovascular system] 03-22-2023 Episodic Other circulatory disease (20 sources) Orthostatic hypotension; Translations: [Orthostatic hypotension] 10-11-2024 Episodic Other circulatory disease (20 sources) Low blood pressure; Translations: [Hypotension, unspecified] 10-12-2024 Episodic Other lower respiratory disease (20 sources) Dyspnea; Translations: [Shortness of breath] 08-26-2022 Episodic Residual codes; unclassified (20 sources) Past history of procedure; Translations: [Other specified postprocedural states] 11-12-2018 Episodic Comment on above: Inducible VT- /207 Residual codes; unclassified (1 source) History of heart valve repair; Translations: [Other specified postprocedural states] Episodic Residual codes; unclassified (20 sources) History of repair of mitral valve; Translations: [Other specified postprocedural states] 11-12-2018 Episodic Comment on above: 30mm [place] saddle ring Residual codes; unclassified (18 sources) Other specified postprocedural states; Translations: [Other postprocedural status] 09-24-2022 Episodic Residual codes; unclassified (19 sources) Disorientated; Translations: [Disorientation, unspecified] 10-07-2024 Episodic Superficial injury; contusion (1 source) Abrasion of left ear, initial encounter; Translations: [Abrasion or friction burn of face, neck, and scalp except eye, without mention of infection] Episodic Unclassified (13 sources) Implantation of automatic cardiac defibrillator ; Translations: [Presence of automatic (implantable) cardiac defibrillator] Onset: 01-14-2011 01-14-2011 Unclassified (11 sources) Long-term drug therapy; Translations: [Other manager long term care (current) drug therapy] Onset: 01-14-2011 01-14-2011 Unclassified (6 sources) get your BMP repeated(lab work) Unclassified (4 sources) Make a sooner appointment if recurrent black stools Past or Other Problems Problem Classification Problem Date Documented Da te Episodic/Chronic Acute and unspecified renal failure (20 sources) Acute renal failure syndrome; Translations: [Acute kidney failure, unspecified] Onset: 5 10-07-2024 Episodic Acute bronchitis (1 source) Acute bronchitis, unspecified; Translations: [Acute bronchitis, unspecified] Onset: 5 Episodic Cardiac dysrhythmias (20 sources) Palpitations; Translations: [Palpitations] Onset: 5 04-30-2015 Episodic Complication of device; implant or graft (1 source) Malfunction of automatic implantable cardioverter defibrillator; Translations: [Malfunction of implantable cardioverter-defibrill ator (ICD)] Onset: 2 04-29-2020 Episodic Coronary atherosclerosis and other heart disease (20 sources) Coronary angioplasty status; Translations: [Presence of aortocoronary bypass graft] Onset: 1 01-14-2011 Episodic Deficiency and other anemia (1 source) Anemia, unspecified; Translations: [Anemia, unspecified] Onset: 5 Episodic Fluid and electrolyte disorders (20 sources) Hypokalemia; Translations: [Hypokalemia] Onset: 7 06-10-2017 Episodic Gastrointestinal hemorrhage (20 sources) Gastrointestinal hemorrhage; Translations: [Gastrointestinal hemorrhage, unspecified] Onset: 5 10-11-2024 Episodic Comment on above: 09/2024 Malaise and fatigue (20 sources) Decline in functional status; Translations: [Other malaise] Onset: 5 10-07-2024 Episodic Nonspecific chest pain (20 sources) Atypical chest pain; Translations: [Other chest pain] Onset: 5 04-30-2015 Episodic Other aftercare (11 sources) Other manager long term care (current) drug therapy; Translations: [Other manager long term care (current) drug therapy] Onset: 1 01-14-2011 Episodic Other aftercare (1 source) Encounter for therapeutic drug level monitoring; Translations: [Encounter for therapeutic drug level monitoring] Onset: 5 Episodic Other circulatory disease (1 source) Hypotension, unspecified; Translations: [Hypotension, unspecified] Onset: 5 Episodic Other lower respiratory disease (20 sources) Dyspnea on exertion; Translations: [Other forms of dyspnea] Onset: 6 10-20-2015 Episodic Other non-traumatic joint disorders (1 source) Pain in left knee; Translations: [Pain in left knee] Onset: 5 Episodic Other nutritional; endocrine; and metabolic disorders (20 sources) Body mass index (BMI) 26.0-26.9, adult; Translations: [Body mass index (BMI) 25.0-25.9, adult] Onset: 4 04-08-2016 Episodic Other nutritional; endocrine; and metabolic disorders (11 sources) Body mass index (BMI) 25.0-25.9, adult; Translations: [Body mass index (BMI) 25.0-25.9, adult] Onset: 4 09-26-2013 Episodic Other screening for suspected conditions (not mental disorders or infectious disease) (20 sources) Blood urea abnormal; Translations: [Abnormal finding of blood chemistry, unspecified] Onset: 5 10-12-2024 Episodic Results Test Name Value Interpretation Reference Range Facility CBC W/Diff, Automatedon 05-01 Absolute Lymph 0.83 X10 3/uL Normal 0.83-4.51 [facility] Comment on above: Order Comment: Order Date: 05/17/25Order Info: [id number] - CBCD Performed By: #### L 509.1000, L500.4050, L100.0100, L501.9985, L501.5200, L500.4100 ####[facility] [address] [place], [place], [id number] Absolute Neut 3.9 X10 3/uL Normal 2.0-7.7 [facility] Comment on above: Order Comment: Order Date: 05/17/25Order Info: 018-1 - CBCD Performed By: #### L 509.1000, L500.4050, L100.0100, L501.9985, L501.5200, L500.4100 ####[facility] [address] [place], [address] Basophils/100 WBC (Bld) 0.8 % Normal 0-1 [facility] Comment on above: Order Comment: Order Date: 05/17/25Order Info: 018- - CBCD Performed By: #### L 509.1000, L500.4050, L100.0100, L501.9985, L501.5200, L500.4100 ####[facility] [address] [place], [address] Eosinophils/100 WBC (Bld) 1.3 % Normal 0-5 [facility] Comment on above: Order Comment: Order Date: 05/17/25Order Info: 018- - CBCD Performed By: #### L 509.1000, L500.4050, L100.0100, L501.9985, L501.5200, L500.4100 ####[facility] [address] [place], [address] Erythrocyte distribution width (RBC) [Ratio] 13.6 % Normal 11.6-14.6 [facility] Comment on above: Order Comment: Order Date: 05/17/25Order Info: 0184-1 - CBCD Performed By: #### L 509.1000, L500.4050, L100.0100, L501.9985, L501.5200, L500.4100 ####[facility] [address] [place], [address] Hematocrit (Bld) [Volume fraction] 37.8 % Low 40-54 [facility] Comment on above: Order Comment: Order Date: 05/17/25Order Info: 0184- - CBCD Performed By: #### L 509.1000, L500.4050, L100.0100, L501.9985, L501.5200, L500.4100 ####[facility] [address] [place], [address] Hemoglobin (Bld) [Mass/Vol] 12.2 g/dL Low 13.0-16.5 [facility] Comment on above: Order Comment: Order Date: 05/17/25Order Info: 018- - CBCD Performed By: #### L 509.1000, L500.4050, L100.0100, L501.9985, L501.5200, L500.4100 ####[facility] [address] [place], [address] IG% 0.200 Normal 0.0-0.9 [facility] Comment on above: Order Comment: Order Date: 05/17/25Order Info: 0184- - CBCD Result Comment: IG% - Immature Granulocytes (promyelocytes, myelocytes andmetamyelocytes) > 1% indicates that a LEFT SHIFT is Present. Performed By: #### L 509.1000, L500.4050, L100.0100, L501.9985, L501.5200, L500.4100 ####[facility] [address] [place], [address] Lymphocytes/100 WBC (Bld) 15.7 % Low 19-41 [facility] Comment on above: Order Comment: Order Date: 05/17/25Order Info: 0184-1 - CBCD Performed By: #### L 509.1000, L500.4050, L100.0100, L501.9985, L501.5200, L500.4100 ####[facility] [address] [place], [address] MCH (RBC) [Entitic mass] 31.2 pg Normal 27.0-32.0 [facility] Comment on above: Order Comment: Order Date: 05/17/25Order Info: 0184-1 - CBCD Performed By: #### L 509.1000, L500.4050, L100.0100, L501.9985, L501.5200, L500.4100 ####[facility] [address] [place], [address] MCHC (RBC) [Mass/Vol] 32.3 g/dL Normal 32-36 [facility] Comment on above: Order Comment: Order Date: 05/17/25Order Info: 0184-1 - CBCD Performed By: #### L 509.1000, L500.4050, L100.0100, L501.9985, L501.5200, L500.4100 ####[facility] [address] [place], [address] MCV (RBC) [Entitic vol] 96.7 fL High 80-94 [facility] Comment on above: Order Comment: Order Date: 05/17/25Order Info: 018-1 - CBCD Performed By: #### L 509.1000, L500.4050, L100.0100, L501.9985, L501.5200, L500.4100 ####[facility] [address] [place], [address] Monocytes/100 WBC (Bld) 8.7 % Normal 0-10 [facility] Comment on above: Order Comment: Order Date: 05/17/25Order Info: 0184-1 - CBCD Performed By: #### L 509.1000, L500.4050, L100.0100, L501.9985, L501.5200, L500.4100 ####[facility] [address] [place], [address] Neutrophils/100 WBC (Bld) 73.3 % High 47-70 [facility] Comment on above: Order Comment: Order Date: 05/17/25Order Info: 0184-1 - CBCD Performed By: #### L 509.1000, L500.4050, L100.0100, L501.9985, L501.5200, L500.4100 ####[facility] [address] [place], [address] Nucleated RBC (Bld) [#/Vol] 0 10*3/uL Normal 0-5 [facility] Comment on above: Order Comment: Order Date: 05/17/25Order Info: 0184-1 - CBCD Performed By: #### L 509.1000, L500.4050, L100.0100, L501.9985, L501.5200, L500.4100 ####[facility] [address] [place], [address] Platelet mean volume (Bld) [Entitic vol] 10.3 fL Normal 6.2-12.0 [facility] Comment on above: Order Comment: Order Date: 05/17/25Order Info: 0184-1 - CBCD Performed By: #### L 509.1000, L500.4050, L100.0100, L501.9985, L501.5200, L500.4100 ####[facility] [address] [place], [address] Platelets (Bld) [#/Vol] 171 10*3/uL Normal 150-450 [facility] Comment on above: Order Comment: Order Date: 05/17/25Order Info: 0184-1 - CBCD Performed By: #### L 509.1000, L500.4050, L100.0100, L501.9985, L501.5200, L500.4100 ####[facility] [address] [place], [address] RBC (Bld) [#/Vol] 3.91 10*6/uL Low 4.6-6.2 [facility] Comment on above: Order Comment: Order Date: 05/17/25Order Info: 0184-1 - CBCD Performed By: #### L 509.1000, L500.4050, L100.0100, L501.9985, L501.5200, L500.4100 ####[facility] [address] [place], [address] RDW SD 48.4 fl High 35.1-43.9 [facility] Comment on above: Order Comment: Order Date: 05/17/25Order Info: 0184-1 - CBCD Performed By: #### L 509.1000, L500.4050, L100.0100, L501.9985, L501.5200, L500.4100 ####[facility] [address] [place], [address] WBC (Bld) [#/Vol] 5.3 10*3/uL Normal 4.4-11.0 [facility] Comment on above: Order Comment: Order Date: 05/17/25Order Info: 0184-1 - CBCD Performed By: #### L 509.1000, L500.4050, L100.0100, L501.9985, L501.5200, L500.4100 ####[facility] [address] [place], [address] Comprehensive Metabolic Prof [facility] 05-17-2025 Albumin [Mass/Vol] 4.0 g/dL Normal 3.4-4.8 [facility] Comment on above: Order Comment: Order Date: 05/17/25Order Info: 0786-1 - CMPOrder Info: [id number] - LIPIDOrder Info: [id number] - MG Performed By: #### L 509.1000, L500.4050, L100.0100, L501.9985, L501.5200, L500.4100 ####[facility] [address] [place], [address] Albumin/Globulin [Mass ratio] 1.4 {ratio} Normal 0.9-2.4 [facility] Comment on above: Order Comment: Order Date: 05/17/25Order Info: 0786-1 - CMPOrder Info: [id number] - LIPIDOrder Info: [id number] - MG Performed By: #### L 509.1000, L500.4050, L100.0100, L501.9985, L501.5200, L500.4100 ####[facility] [address] [place], [address] ALK PHOS 124 U/L Normal 40-129 [facility] Comment on above: Order Comment: Order Date: 05/17/25Order Info: 785-1 - CMPOrder Info: [id number] - LIPIDOrder Info: [id number] - MG Performed By: #### L 509.1000, L500.4050, L100.0100, L501.9985, L501.5200, L500.4100 ####[facility] [address] [place], [address] ALT [Catalytic activity/Vol] 26 U/L Normal <=46 [facility] Comment on above: Order Comment: Order Date: 05/17/25Order Info: 07- - CMPOrder Info: [id number] - LIPIDOrder Info: - MG Performed By: #### L 509.1000, L500.4050, L100.0100, L501.9985, L501.5200, L500.4100 ####[facility] [address] [place], [address] AST [Catalytic activity/Vol] 30 U/L Normal <=37 [facility] Comment on above: Order Comment: Order Date: 05/17/25Order Info: [id number] - CMPOrder Info: [id number] - LIPIDOrder Info: [id number] - MG Performed By: #### L 509.1000, L500.4050, L100.0100, L501.9985, L501.5200, L500.4100 ####[facility] [address] [place], [address] Bilirubin [Mass/Vol] 0.92 mg/dL Normal 0.00-1.30 [facility] Comment on above: Order Comment: Order Date: 05/17/25Order Info: 07-1 - CMPOrder Info: [id number] - LIPIDOrder Info: [id number] - MG Performed By: #### L 509.1000, L500.4050, L100.0100, L501.9985, L501.5200, L500.4100 ####[facility] [address] [place], [address] BUN/CRE 20.0 RATIO Normal 10-20 [facility] Comment on above: Order Comment: Order Date: 05/17/25Order Info: 785- - CMPOrder Info: [id number] - LIPIDOrder Info: [id number] - MG Performed By: #### L 509.1000, L500.4050, L100.0100, L501.9985, L501.5200, L500.4100 ####[facility] [address] [place], [place], [address] Calcium [Mass/Vol] 9.0 mg/dL Normal 7.6-11.0 [facility] Comment on above: Order Comment: Order Date: 05/17/25Order Info: 07- - CMPOrder Info: [id number] - LIPIDOrder Info: [id number] - MG Performed By: #### L 509.1000, L500.4050, L100.0100, L501.9985, L501.5200, L500.4100 ####[facility] [address] [place], [address] Chloride [Moles/Vol] 101 mmol/L Normal 98-108 [facility] Comment on above: Order Comment: Order Date: 05/17/25Order Info: 07-1 - CMPOrder Info: [id number] - LIPIDOrder Info: [id number] - MG Performed By: #### L 509.1000, L500.4050, L100.0100, L501.9985, L501.5200, L500.4100 ####[facility] [address] [place], [address] CO2 [Moles/Vol] 26.4 mmol/L Normal 21.0-32.0 [facility] Comment on above: Order Comment: Order Date: 05/17/25Order Info: [id number] - CMPOrder Info: [id number] - LIPIDOrder Info: [id number] - MG Performed By: #### L 509.1000, L500.4050, L100.0100, L501.9985, L501.5200, L500.4100 ####[facility] [address] [place], [address] Creatinine [Mass/Vol] 1.11 mg/dL Normal 0.70-1.20 [facility] Comment on above: Order Comment: Order Date: 05/17/25Order Info: 0786- - CMPOrder Info: [id number] - LIPIDOrder Info: [id number] - MG Performed By: #### L 509.1000, L500.4050, L100.0100, L501.9985, L501.5200, L500.4100 ####[facility] [address] [place], [address] GAP 10 Normal 5-15 [facility] Comment on above: Order Comment: Order Date: 05/17/25Order Info: [id number] - CMPOrder Info: [id number] - LIPIDOrder Info: [id number] - MG Performed By: #### L 509.1000, L500.4050, L100.0100, L501.9985, L501.5200, L500.4100 ####[facility] [address] [place], [address] GFR/1.73 sq M.predicted among non-blacks MDRD (S/P/Bld) [Vol rate/Area] 65 mL/min/{1.73_m2} Normal >60 [facility] Comment on above: Order Comment: Order Date: 05/17/25Order Info: 785- - CMPOrder Info: [id number] - LIPIDOrder Info: [id number] - MG Result Comment: mL/m in/1.73m2 CKD-EPI Creatinine Equation (2020) Performed By: #### L 509.1000, L500.4050, L100.0100, L501.9985, L501.5200, L500.4100 ####[facility] [address] [place], [address] Globulin (S) [Mass/Vol] 2.9 g/dL Normal 2.2-4.2 [facility] Comment on above: Order Comment: Order Date: 05/17/25Order Info: 785- - CMPOrder Info: [id number] - LIPIDOrder Info: [id number] - MG Performed By: #### L 509.1000, L500.4050, L100.0100, L501.9985, L501.5200, L500.4100 ####[facility] [address] [place], [address] Glucose [Mass/Vol] 215 mg/dL High 70-99 [facility] Comment on above: Order Comment: Order Date: 05/17/25Order Info: [id number] - CMPOrder Info: [id number] - LIPIDOrder Info: [id number] - MG Performed By: #### L 509.1000, L500.4050, L100.0100, L501.9985, L501.5200, L500.4100 ####[facility] [address] [place], [address] Potassium [Moles/Vol] 4.4 mmol/L Normal 3.3-5.1 [facility] Comment on above: Order Comment: Order Date: 05/17/25Order Info: 785- - CMPOrder Info: [id number] - LIPIDOrder Info: [id number] - MG Performed By: #### L 509.1000, L500.4050, L100.0100, L501.9985, L501.5200, L500.4100 ####[facility] [address] [place], [address] Sodium [Moles/Vol] 138 mmol/L Normal 133-145 [facility] Comment on above: Order Comment: Order Date: 05/17/25Order Info: [id number] - CMPOrder Info: [id number] - LIPIDOrder Info: [id number] - MG Performed By: #### L 509.1000, L500.4050, L100.0100, L501.9985, L501.5200, L500.4100 ####[facility] [address] [place], [address] T PROT 6.9 g/dL Normal 5.9-8.4 [facility] Comment on above: Order Comment: Order Date: 05/17/25Order Info: [id number] - CMPOrder Info: [id number] - LIPIDOrder Info: [id number] - MG Performed By: #### L 509.1000, L500.4050, L100.0100, L501.9985, L501.5200, L500.4100 ####[facility] [address] [place], [address] Urea nitrogen [Mass/Vol] 22 mg/dL High 4-19 [facility] Comment on above: Order Comment: Order Date: 05/17/25Order Info: [id number] - CMPOrder Info: [id number] - LIPIDOrder Info: [id number] - MG Performed By: #### L 509.1000, L500.4050, L100.0100, L501.9985, L501.5200, L500.4100 ####[facility] [address] [place], [address] Hemoglobin A1con 05-17-2025 HbA1c (Bld) [Mass fraction] 9.4 % High <=5.6 [facility] Comment on above: Order Comment: Order Date: 05/17/25Order Info: [id number] - A1C Result Comment: Norm al < 5.7 % Prediabetic 5.7 - 6.4 % Diabetic >or= 6.5 % Please note range changes. Performed By: #### L 509.1000, L500.4050, L100.0100, L501.9985, L501.5200, L500.4100 ####[facility] [address] [place], [place], [address] Lipid Profileon 05-17-2025 CHOL:HDL 3.16 Normal [facility] Comment on above: Order Comment: Order Date: 05/17/25Order Info: [id number] - CMPOrder Info: [id number] - LIPIDOrder Info: [id number] - MG Performed By: #### L 509.1000, L500.4050, L100.0100, L501.9985, L501.5200, L500.4100 ####[facility] [address] [place], [address] Cholesterol [Mass/Vol] 91 mg/dL Normal <=200 [facility] Comment on above: Order Comment: Order Date: 05/17/25Order Info: [id number] - CMPOrder Info: [id number] - LIPIDOrder Info: [id number] - MG Result Comment: Chol esterol level, Desirable <200 mg/dLBorderline high cholesterol 200-239 mg/dLHigh cholesterol >=240 mg/dLRecommendations of the NCEP Adult Treatment Panel for thefollowing risk-cutoff thresholds for the [place] [facility]. Performed By: #### L 509.1000, L500.4050, L100.0100, L501.9985, L501.5200, L500.4100 ####[facility] [address] [place], [place], [address] Cholesterol in HDL [Mass/Vol] 29 mg/dL Low [facility] Comment on above: Order Comment: Order Date: 05/17/25Order Info: [id number] - CMPOrder Info: [id number] - LIPIDOrder Info: [id number] - MG Result Comment: Eusebia onal Cholesterol Education Program (NCEP) guidelines:<40 mg/dL: Low HDL-cholesterol (major risk factor for CHD)>= 60 mg/dL: High HDL-cholesterol (negative risk factor forCHD)HDL-cholesterol is affected by a number of factors, e.g.smoking, exercise, hormones, sex and age. Performed By: #### L 509.1000, L500.4050, L100.0100, L501.9985, L501.5200, L500.4100 ####[facility] [address] [place], [address] Cholesterol in LDL [Mass/Vol] 46 mg/dL Normal [facility] Comment on above: Order Comment: Order Date: 05/17/25Order Info: [id number] - CMPOrder Info: [id number] - LIPIDOrder Info: [id number] - MG Result Comment: Bord imkfkr=026-442 mg/dL Higher Dwdm=880 mg/dL or greaterSampson Equation 2020 for LDL-C Performed By: #### L 509.1000, L500.4050, L100.0100, L501.9985, L501.5200, L500.4100 ####[facility] [address] [place], [address] Cholesterol in VLDL [Mass/Vol] 16 mg/dL Normal 5-40 [facility] Comment on above: Order Comment: Order Date: 05/17/25Order Info: [id number] - CMPOrder Info: [id number] - LIPIDOrder Info: [id number] - MG Performed By: #### L 509.1000, L500.4050, L100.0100, L501.9985, L501.5200, L500.4100 ####[facility] [address] [place], [address] Triglyceride [Mass/Vol] 82 mg/dL Normal [facility] Comment on above: Order Comment: Order Date: 05/17/25Order Info: [id number] - CMPOrder Info: [id number] - LIPIDOrder Info: [id number] - MG Result Comment: The drugs N-Acetylcysteine and Metamizole may falselydepress this assay.Normal range: <150 mg/dLBorderline High: 150-199 mg/dLHigh: 200-499 mg/dLVery High: >500 mg/dL Performed By: #### L 509.1000, L500.4050, L100.0100, L501.9985, L501.5200, L500.4100 ####[facility] [address] [place], [address] Magnesiumon 05-17-2025 Magnesium [Mass/Vol] 2.3 mg/dL High 1.5-2.2 [facility] Comment on above: Order Comment: Order Date: 05/17/25Order Info: [id number] - CMPOrder Info: [id number] - LIPIDOrder Info: [id number] - MG Performed By: #### L 509.1000, L500.4050, L100.0100, L501.9985, L501.5200, L500.4100 ####[facility] [address] [place], [address] Microalb:Creat Ratio,Random URon 05-17-2025 MALB:CREAT 105.8 mg/g CRE High <30 mg/g CRE [facility] Comment on above: Performed By: #### L 506.1001, L501.0900, L400.0001, L502.0250 ####[facility] [address] [place], [address] MICROALBUMIN,UR 80.9 mg/L Normal <20 mg/L [facility] Comment on above: Performed By: #### L 506.1001, L501.0900, L400.0001, L502.0250 ####[facility] [address] [place], [address] PTHINon 05-17-2025 PTH 54 pg/mL Normal 11-61 [facility] Comment on above: Order Comment: Order Date: 05/17/25Order Info: [id number] - PTHIN Performed By: #### L 509.1000, L500.4050, L100.0100, L501.9985, L501.5200, L500.4100 ####[facility] [address] [place], [address] Protein+Creatinine Ratio,Uri neon 05-17-2025 PROT:CRE RATIO 359 mg/g CRE High 0-200 [facility] Comment on above: Performed By: #### L 506.1001, L501.0900, L400.0001, L502.0250 ####[facility] [address] [place], [address] Protein (U) [Mass/Vol] 27.5 mg/dL High 0.0-12.0 [facility] Comment on above: Performed By: #### L 506.1001, L501.0900, L400.0001, L502.0250 ####[facility] [address] [place], [address] UR CREAT 76.50 mg/dL Normal 39.00-259. 00 [facility] Comment on above: Performed By: #### L 506.1001, L501.0900, L400.0001, L502.0250 ####[facility] [address] [place], [address] Urinalysis, Completeon 05-17 CAST,HYALINE 0-5 SEEN Normal 0-5 [facility] Comment on above: Order Comment: Urine , Random Performed By: #### L 506.1001, L501.0900, L400.0001, L502.0250 ####[facility] [address] [place], [address] EPI,SQUAMOUS 0-5 SEEN Normal 0-5 [facility] Comment on above: Order Comment: Urine , Random Performed By: #### L 506.1001, L501.0900, L400.0001, L502.0250 ####[facility] [address] [place], [address] BACTERIA 0 SEEN Normal None Seen [facility] Comment on above: Order Comment: Urine , Random Performed By: #### L 506.1001, L501.0900, L400.0001, L502.0250 ####[facility] [address] [place], [address] Mucus Ql (Urine sed) 0 SEEN Normal [facility] Comment on above: Order Comment: Urine , Random Performed By: #### L 506.1001, L501.0900, L400.0001, L502.0250 ####[facility] [address] [place], [address] RBC 0 SEEN Normal 0-5 [facility] Comment on above: Order Comment: Urine , Random Performed By: #### L 506.1001, L501.0900, L400.0001, L502.0250 ####[facility] [id number] [place], [address] WBC 0 SEEN Normal 0-5 [facility] Comment on above: Order Comment: Urine , Random Performed By: #### L 506.1001, L501.0900, L400.0001, L502.0250 ####[facility] [id number] [place], [address] Vitamin D,25 Hydroxyon 05-17 Vitamin D 25-OH 46.8 ng/mL Normal 30-100 [facility] Comment on above: Order Comment: Order Date: 05/17/25Order Info: [id number] - CMPOrder Info: [id number] - LIPIDOrder Info: [id number] - MG Result Comment: Verito min D StatusDeficiency: <20 ng/mL (50nmol/L)Insufficiency: 20-30 ng/mL (50-75 nmol/L)Sufficiency: 30-100 ng/mL (75-250 nmol/L)Toxicity: >100 ng/mL (>250 nmol/L) Performed By: #### L 506.1001, L501.0900, L400.0001, L502.0250 ####[facility] [id number] [place], [address] Absolute lymphocyte countOrd ered By: Jose Enrique Finney on 02-13-2025 Lymphocytes Auto (Unsp spec) [#/Vol] 1.14 10*3/uL 0.83-4.51 [facility] Absolute neutrophil countOrd ered By: Jose Enrique Finney on 02-13-2025 Neutrophils (Bld) [#/Vol] 5.0 10*3/uL 2.0-7.7 [facility] Anion gap in Serum or Plasma Ordered By: Jose Enrique Finney on 02-13-2025 Anion gap [Moles/Vol] 13 mmol/L 5-15 [facility] Automated lymphocyte count a s percentage of total leukocytesOrdered By: Jose Enrique Finney on 02-13-2025 Lymphocytes/100 WBC Auto (Unsp spec) 16.8 % Low 19-41 [facility] BUN/creatinine ratioOrdered By: Jose Enrique Finney on 02-13-2025 Urea nitrogen/Creatinine [Mass ratio] 22.4 mg/mg High 10-20 [facility] Basophil percentageOrdered B y: Jose Enrique Finney on 02-13-2025 Basophils/100 WBC (Bld) 0.4 % 0-1 [facility] Bilirubin, totalOrdered By: Jose Enrique Finney on 02-13-2025 Bilirubin [Mass/Vol] 0.90 mg/dL 0.00-1.30 [facility] CBC W/Diff, Automatedon 01-29 Absolute Lymph 1.14 X10 3/uL Normal 0.83-4.51 [facility] Comment on above: Order Comment: Order Date: 01/15/25Order Info: 0184-1 - CBCD Performed By: #### L 506.0400, L500.4050, L501.9520, L100.0100 ####[facility] [address] [place], [address] Absolute Neut 5.0 X10 3/uL Normal 2.0-7.7 [facility] Comment on above: Order Comment: Order Date: 01/15/25Order Info: 0184-1 - CBCD Performed By: #### L 506.0400, L500.4050, L501.9520, L100.0100 ####[facility] [address] [place], [address] Basophils/100 WBC (Bld) 0.4 % Normal 0-1 [facility] Comment on above: Order Comment: Order Date: 01/15/25Order Info: 0184-1 - CBCD Performed By: #### L 506.0400, L500.4050, L501.9520, L100.0100 ####[facility] [address] [place], [address] Eosinophils/100 WBC (Bld) 0.7 % Normal 0-5 [facility] Comment on above: Order Comment: Order Date: 01/15/25Order Info: 0184-1 - CBCD Performed By: #### L 506.0400, L500.4050, L501.9520, L100.0100 ####[facility] [address] [place], [address] Erythrocyte distribution width (RBC) [Ratio] 14.7 % High 11.6-14.6 [facility] Comment on above: Order Comment: Order Date: 01/15/25Order Info: 0184-1 - CBCD Performed By: #### L 506.0400, L500.4050, L501.9520, L100.0100 ####[facility] [address] [place], [address] Hematocrit (Bld) [Volume fraction] 38.8 % Low 40-54 [facility] Comment on above: Order Comment: Order Date: 01/15/25Order Info: 0184-1 - CBCD Performed By: #### L 506.0400, L500.4050, L501.9520, L100.0100 ####[facility] [address] [place], [address] Hemoglobin (Bld) [Mass/Vol] 12.6 g/dL Low 13.0-16.5 [facility] Comment on above: Order Comment: Order Date: 01/15/25Order Info: 0184-1 - CBCD Performed By: #### L 506.0400, L500.4050, L501.9520, L100.0100 ####[facility] [address] [place], [address] IG% 0.400 Normal 0.0-0.9 [facility] Comment on above: Order Comment: Order Date: 01/15/25Order Info: 0184-1 - CBCD Result Comment: IG% - Immature Granulocytes (promyelocytes, myelocytes andmetamyelocytes) > 1% indicates that a LEFT SHIFT is Present. Performed By: #### L 506.0400, L500.4050, L501.9520, L100.0100 ####[facility] [address] [place], [address] Lymphocytes/100 WBC (Bld) 16.8 % Low 19-41 [facility] Comment on above: Order Comment: Order Date: 01/15/25Order Info: 0184-1 - CBCD Performed By: #### L 506.0400, L500.4050, L501.9520, L100.0100 ####[facility] [address] [place], [address] MCH (RBC) [Entitic mass] 29.7 pg Normal 27.0-32.0 [facility] Comment on above: Order Comment: Order Date: 01/15/25Order Info: 0184-1 - CBCD Performed By: #### L 506.0400, L500.4050, L501.9520, L100.0100 ####[facility] [address] [place], [address] MCHC (RBC) [Mass/Vol] 32.5 g/dL Normal 32-36 [facility] Comment on above: Order Comment: Order Date: 01/15/25Order Info: 0184-1 - CBCD Performed By: #### L 506.0400, L500.4050, L501.9520, L100.0100 ####[facility] [address] [place], [address] MCV (RBC) [Entitic vol] 91.5 fL Normal 80-94 [facility] Comment on above: Order Comment: Order Date: 01/15/25Order Info: 0184-1 - CBCD Performed By: #### L 506.0400, L500.4050, L501.9520, L100.0100 ####[facility] [address] [place], [address] Monocytes/100 WBC (Bld) 8.3 % Normal 0-10 [facility] Comment on above: Order Comment: Order Date: 01/15/25Order Info: 0184-1 - CBCD Performed By: #### L 506.0400, L500.4050, L501.9520, L100.0100 ####[facility] [address] [place], [address] Neutrophils/100 WBC (Bld) 73.4 % High 47-70 [facility] Comment on above: Order Comment: Order Date: 01/15/25Order Info: 0184-1 - CBCD Performed By: #### L 506.0400, L500.4050, L501.9520, L100.0100 ####[facility] [address] [place], [address] Nucleated RBC (Bld) [#/Vol] 0 10*3/uL Normal 0-5 [facility] Comment on above: Order Comment: Order Date: 01/15/25Order Info: 0184-1 - CBCD Performed By: #### L 506.0400, L500.4050, L501.9520, L100.0100 ####[facility] [address] [place], [address] Platelet mean volume (Bld) [Entitic vol] 10.7 fL Normal 6.2-12.0 [facility] Comment on above: Order Comment: Order Date: 01/15/25Order Info: 0184-1 - CBCD Performed By: #### L 506.0400, L500.4050, L501.9520, L100.0100 ####[facility] [address] [place], [address] Platelets (Bld) [#/Vol] 173 10*3/uL Normal 150-450 [facility] Comment on above: Order Comment: Order Date: 01/15/25Order Info: 0184-1 - CBCD Performed By: #### L 506.0400, L500.4050, L501.9520, L100.0100 ####[facility] [address] [place], [address] RBC (Bld) [#/Vol] 4.24 10*6/uL Low 4.6-6.2 [facility] Comment on above: Order Comment: Order Date: 01/15/25Order Info: 018-1 - CBCD Performed By: #### L 506.0400, L500.4050, L501.9520, L100.0100 ####[facility] [address] [place], [address] RDW SD 49.4 fl High 35.1-43.9 [facility] Comment on above: Order Comment: Order Date: 01/15/25Order Info: 0184-1 - CBCD Performed By: #### L 506.0400, L500.4050, L501.9520, L100.0100 ####[facility] [address] [place], [address] WBC (Bld) [#/Vol] 6.8 10*3/uL Normal 4.4-11.0 [facility] Comment on above: Order Comment: Order Date: 01/15/25Order Info: 0184-1 - CBCD Performed By: #### L 506.0400, L500.4050, L501.9520, L100.0100 ####[facility] [address] [place], [address] Calculated very low density lipoprotein (VLDL) cholesterol measurementOrdered By: Jose Enrique Finney on 02-13-2025 Calculated very low density lipoprotein (VLDL) cholesterol measurement 20 mg/dL 5-40 [facility] Carbon dioxide, total [Moles /volume] in Central venous bloodOrdered By: Jose Enrique Finney on 02-13-2025 CO2 [Moles/Vol] 21.7 mmol/L 21.0-32.0 [facility] Chloride assayOrdered By: Karen Finney on 02-13-2025 Chloride [Moles/Vol] 101 mmol/L 98-108 [facility] Comprehensive Metabolic Prof ilon 02-13-2025 Albumin [Mass/Vol] 4.0 g/dL Normal 3.4-4.8 [facility] Comment on above: Order Comment: Order Date: 01/15/25Order Info: 0786-1 - CMPOrder Info: 3016-3 - TSHOrder Info: 3024-7 - T4F Performed By: #### L 506.0400, L500.4050, L501.9520, L100.0100 ####[facility] [address] [place], [address] Albumin/Globulin [Mass ratio] 1.4 {ratio} Normal 0.9-2.4 [facility] Comment on above: Order Comment: Order Date: 01/15/25Order Info: 0786-1 - CMPOrder Info: 3016-3 - TSHOrder Info: 3024-7 - T4F Performed By: #### L 506.0400, L500.4050, L501.9520, L100.0100 ####[facility] [address] [place], [address] ALK PHOS 123 U/L Normal 40-129 [facility] Comment on above: Order Comment: Order Date: 01/15/25Order Info: 0786-1 - CMPOrder Info: 3 - TSHOrder Info: 3024-7 - T4F Performed By: #### L 506.0400, L500.4050, L501.9520, L100.0100 ####[facility] [address] [place], [address] ALT [Catalytic activity/Vol] 41 U/L Normal <=46 [facility] Comment on above: Order Comment: Order Date: 01/15/25Order Info: 0786-1 - CMPOrder Info: 3015-09 - TSHOrder Info: 3024-7 - T4F Performed By: #### L 506.0400, L500.4050, L501.9520, L100.0100 ####[facility] [address] [place], [address] AST [Catalytic activity/Vol] 32 U/L Normal <=37 [facility] Comment on above: Order Comment: Order Date: 01/15/25Order Info: 0786-1 - CMPOrder Info: 3015-09 - TSHOrder Info: 3024-7 - T4F Performed By: #### L 506.0400, L500.4050, L501.9520, L100.0100 ####[facility] [address] [place], [address] Bilirubin [Mass/Vol] 0.90 mg/dL Normal 0.00-1.30 [facility] Comment on above: Order Comment: Order Date: 01/15/25Order Info: 0786-1 - CMPOrder Info: 3 - TSHOrder Info: 3024-7 - T4F Performed By: #### L 506.0400, L500.4050, L501.9520, L100.0100 ####[facility] [address] [place], [address] BUN/CRE 22.4 RATIO High 10-20 [facility] Comment on above: Order Comment: Order Date: 01/15/25Order Info: 0786-1 - CMPOrder Info: 3 - TSHOrder Info: 3024-7 - T4F Performed By: #### L 506.0400, L500.4050, L501.9520, L100.0100 ####[facility] [address] [place], [address] Calcium [Mass/Vol] 9.1 mg/dL Normal 7.6-11.0 [facility] Comment on above: Order Comment: Order Date: 01/15/25Order Info: 0786-1 - CMPOrder Info: 3 - TSHOrder Info: 3024-7 - T4F Performed By: #### L 506.0400, L500.4050, L501.9520, L100.0100 ####[facility] [address] [place], [address] Chloride [Moles/Vol] 101 mmol/L Normal 98-108 [facility] Comment on above: Order Comment: Order Date: 01/15/25Order Info: 0786-1 - CMPOrder Info: 3 - TSHOrder Info: 3024-7 - T4F Performed By: #### L 506.0400, L500.4050, L501.9520, L100.0100 ####[facility] [address] [place], [address] CO2 [Moles/Vol] 21.7 mmol/L Normal 21.0-32.0 [facility] Comment on above: Order Comment: Order Date: 01/15/25Order Info: 0786-1 - CMPOrder Info: 3 - TSHOrder Info: 3024-7 - T4F Performed By: #### L 506.0400, L500.4050, L501.9520, L100.0100 ####[facility] [address] [place], [address] Creatinine [Mass/Vol] 1.28 mg/dL High 0.70-1.20 [facility] Comment on above: Order Comment: Order Date: 01/15/25Order Info: 0786-1 - CMPOrder Info: 3 - TSHOrder Info: 3024-7 - T4F Performed By: #### L 506.0400, L500.4050, L501.9520, L100.0100 ####[facility] [address] [place], [address] GAP 13 Normal 5-15 [facility] Comment on above: Order Comment: Order Date: 01/15/25Order Info: 07- - CMPOrder Info: 3 - TSHOrder Info: 3024-7 - T4F Performed By: #### L 506.0400, L500.4050, L501.9520, L100.0100 ####[facility] [address] [place], [address] GFR/1.73 sq M.predicted among non-blacks MDRD (S/P/Bld) [Vol rate/Area] 56 mL/min/{1.73_m2} Low >60 [facility] Comment on above: Order Comment: Order Date: 01/15/25Order Info: 07-1 - CMPOrder Info: 3 - TSHOrder Info: 3024-7 - T4F Result Comment: mL/m in/1.73m2 CKD-EPI Creatinine Equation (2020) Performed By: #### L 506.0400, L500.4050, L501.9520, L100.0100 ####[facility] [address] [place], [address] Globulin (S) [Mass/Vol] 2.9 g/dL Normal 2.2-4.2 [facility] Comment on above: Order Comment: Order Date: 01/15/25Order Info: 0786-1 - CMPOrder Info: 6-3 - TSHOrder Info: 3024-7 - T4F Performed By: #### L 506.0400, L500.4050, L501.9520, L100.0100 ####[facility] [address] [place], [address] Glucose [Mass/Vol] 295 mg/dL High 70-99 [facility] Comment on above: Order Comment: Order Date: 01/15/25Order Info: 0786-1 - CMPOrder Info: 3015-3 - TSHOrder Info: 3024-7 - T4F Performed By: #### L 506.0400, L500.4050, L501.9520, L100.0100 ####[facility] [address] [place], [address] Potassium [Moles/Vol] 4.1 mmol/L Normal 3.3-5.1 [facility] Comment on above: Order Comment: Order Date: 01/15/25Order Info: 0786-1 - CMPOrder Info: 3 - TSHOrder Info: 3024-7 - T4F Performed By: #### L 506.0400, L500.4050, L501.9520, L100.0100 ####[facility] [address] [place], [address] Sodium [Moles/Vol] 136 mmol/L Normal 133-145 [facility] Comment on above: Order Comment: Order Date: 01/15/25Order Info: 0786-1 - CMPOrder Info: 3 - TSHOrder Info: 3024-7 - T4F Performed By: #### L 506.0400, L500.4050, L501.9520, L100.0100 ####[facility] [address] [place], [address] T PROT 6.9 g/dL Normal 5.9-8.4 [facility] Comment on above: Order Comment: Order Date: 01/15/25Order Info: 0786-1 - CMPOrder Info: 3015-3 - TSHOrder Info: 3024-7 - T4F Performed By: #### L 506.0400, L500.4050, L501.9520, L100.0100 ####[facility] [address] [place], [address] Urea nitrogen [Mass/Vol] 29 mg/dL High 4-19 [facility] Comment on above: Order Comment: Order Date: 01/15/25Order Info: 0786-1 - CMPOrder Info: 6-3 - TSHOrder Info: 30247 - T4F Performed By: #### L 506.0400, L500.4050, L501.9520, L100.0100 ####[facility] [address] [place], [address] Eosinophil percentageOrdered By: Jose Enrique Finney on 02-13-2025 Eosinophils/100 WBC (Bld) 0.7 % 0-5 [facility] Erythrocyte distribution wid th ratioOrdered By: Jose Enrique Finney on 02-13-2025 Erythrocyte distribution width (RBC) [Ratio] 14.7 % High 11.6-14.6 [facility] Erythrocyte distribution wid th standard deviationOrdered By: Jose Enrique Finney on 02-13-2025 Erythrocyte distribution width (RBC) [Ratio] 49.4 fl High 35.1-43.9 [facility] Ferritinon 02-13-2025 Ferritin [Mass/Vol] 104 ng/mL Normal 37-417 [facility] Comment on above: Order Comment: Order Date: 01/15/25Order Info: 0786-1 - CMPOrder Info: 3 - TSHOrder Info: 7 - T4F Performed By: #### L 501.5200, L503.6030, L501.9985, L503.0106, L506.1001, L503.6550, L500.4100 ####[facility] [address] [place], [address] Glomerular filtration rate ( GFR) estimation/1.73 sq m using serum, plasma, or whole bOrdered By: Jose Enrique Finney on 02-13-2025 GFR/1.73 sq M.predicted among non-blacks MDRD (S/P/Bld) [Vol rate/Area] 56 mL/min/{1.73_m2} Low >60 [facility] Comment on above: mL/min/1.73m2 CKD-EP I Creatinine Equation (2020) Hematocrit Auto (Bld) [Volum e fraction]Ordered By: Jose Enrique Finney on 02-13-2025 Hematocrit (Bld) [Volume fraction] 38.8 % Low 40-54 [facility] Hemoglobin A1con 02-13-2025 HbA1c (Bld) [Mass fraction] 10.9 % High <=5.6 [facility] Comment on above: Result Comment: Norm al < 5.7 % Prediabetic 5.7 - 6.4 % Diabetic >or= 6.5 % Please note range changes. Performed By: #### L 501.5200, L503.6030, L501.9985, L503.0106, L506.1001, L503.6550, L500.4100 ####[facility] [address] [place], [address] Hemoglobin A1c percentageOrd ered By: Jose Enrique Finney on 02-13-2025 HbA1c (Bld) [Mass fraction] 10.9 % High <5.7 [facility] Comment on above: Normal < 5.7 % Predi abetic 5.7 - 6.4 % Diabetic >or= 6.5 % Please note range changes. Hemoglobin measurementOrdere d By: Jose Enrique Finney on 02-13-2025 Hemoglobin (Bld) [Mass/Vol] 12.6 g/dL Low 13.0-16.5 [facility] Immature granulocytes/100 WB C Auto (Bld)Ordered By: Jose Enrique Finney on 02-13-2025 Immature granulocytes/100 WBC (Bld) 0.400 % 0.0-0.9 [facility] Comment on above: IG% - Immature Granu locytes (promyelocytes, myelocytes and metamyelocytes) > 1% indicates that a LEFT SHIFT is Present. Iron measurement (mass/mass) Ordered By: Jose Enrique Finney on 02-13-2025 Iron (Unsp spec) [Mass/Mass] 101 ug/dL 65-175 [facility] Iron+Iron Binding Capacityon 02-13-2025 Iron [Mass/Vol] 101 ug/dL Normal 65-175 [facility] Comment on above: Order Comment: Order Date: 01/15/25Order Info: 0786-1 - CMPOrder Info: 3015-3 - TSHOrder Info: 3024-7 - T4F Performed By: #### L 501.5200, L503.6030, L501.9985, L503.0106, L506.1001, L503.6550, L500.4100 ####[facility] [address] [place], [address] IRON SATURATION 33.0 Normal 9-55 [facility] Comment on above: Order Comment: Order Date: 01/15/25Order Info: 07-1 - CMPOrder Info: 3 - TSHOrder Info: 3024-7 - T4F Performed By: #### L 501.5200, L503.6030, L501.9985, L503.0106, L506.1001, L503.6550, L500.4100 ####[facility] [address] [place], [address] TIBC 304 ug/dL Normal 250-450 [facility] Comment on above: Order Comment: Order Date: 01/15/25Order Info: 0786-1 - CMPOrder Info: 3 - TSHOrder Info: 3024-7 - T4F Performed By: #### L 501.5200, L503.6030, L501.9985, L503.0106, L506.1001, L503.6550, L500.4100 ####[facility] [address] [place], [address] UIBC 203 ug/dL Low 228-428 [facility] Comment on above: Order Comment: Order Date: 01/15/25Order Info: 0786-1 - CMPOrder Info: 3015-3 - TSHOrder Info: 3024-7 - T4F Performed By: #### L 501.5200, L503.6030, L501.9985, L503.0106, L506.1001, L503.6550, L500.4100 ####[facility] [address] [place], [address] LDL calc ser/plasOrdered By: Jos eEnrique Finney on 02-13-2025 Cholesterol in LDL [Mass/Vol] 47 mg/dL [facility] Comment on above: Macsvbsqmq=085-680 m g/dL & Higher Pzvi=097 mg/dL or greater Laboratory - Chemistry and C hemistry - challengeOrdered By: Jose Enrique Finney on 02-13-2025 AST [Catalytic activity/Vol] 32 U/L <38 [facility] Lipid Profileon 02-13-2025 CHOL:HDL 3.34 Normal [facility] Comment on above: Order Comment: Order Date: 01/15/25Order Info: 0786-1 - CMPOrder Info: 3016-3 - TSHOrder Info: 3024-7 - T4F Performed By: #### L 501.5200, L503.6030, L501.9985, L503.0106, L506.1001, L503.6550, L500.4100 ####[facility] [address] [place], [address] Cholesterol [Mass/Vol] 96 mg/dL Normal <=200 [facility] Comment on above: Order Comment: Order Date: 01/15/25Order Info: 0786-1 - CMPOrder Info: 3016-3 - TSHOrder Info: 3024-7 - T4F Result Comment: Chol esterol level, Desirable <200 mg/dLBorderline high cholesterol 200-239 mg/dLHigh cholesterol >=240 mg/dLRecommendations of the NCEP Adult Treatment Panel for thefollowing risk-cutoff thresholds for the [place] Americanpopulation. Performed By: #### L 501.5200, L503.6030, L501.9985, L503.0106, L506.1001, L503.6550, L500.4100 ####[facility] [address] [place], [address] Cholesterol in HDL [Mass/Vol] 29 mg/dL Low [facility] Comment on above: Order Comment: Order Date: 01/15/25Order Info: 0786-1 - CMPOrder Info: 3 - TSHOrder Info: 7 - T4F Result Comment: Eusebia onal Cholesterol Education Program (NCEP) guidelines:<40 mg/dL: Low HDL-cholesterol (major risk factor for CHD)>= 60 mg/dL: High HDL-cholesterol (negative risk factor forCHD)HDL-cholesterol is affected by a number of factors, e.g.smoking, exercise, hormones, sex and age. Performed By: #### L 501.5200, L503.6030, L501.9985, L503.0106, L506.1001, L503.6550, L500.4100 ####[facility] [address] [place], [address] Cholesterol in LDL [Mass/Vol] 47 mg/dL Normal [facility] Comment on above: Order Comment: Order Date: 01/15/25Order Info: 0786-1 - CMPOrder Info: 3015-09 - TSHOrder Info: 3024-01 - T4F Result Comment: Bord kiishk=166-436 mg/dL Higher Mmiw=777 mg/dL or greater Performed By: #### L 501.5200, L503.6030, L501.9985, L503.0106, L506.1001, L503.6550, L500.4100 ####[facility] [address] [place], [address] Cholesterol in VLDL [Mass/Vol] 20 mg/dL Normal 5-40 [facility] Comment on above: Order Comment: Order Date: 01/15/25Order Info: 0786-1 - CMPOrder Info: 3 - TSHOrder Info: 7 - T4F Performed By: #### L 501.5200, L503.6030, L501.9985, L503.0106, L506.1001, L503.6550, L500.4100 ####[facility] [address] [place], [address] Triglyceride [Mass/Vol] 101 mg/dL Normal [facility] Comment on above: Order Comment: Order Date: 01/15/25Order Info: 0786-1 - CMPOrder Info: 30101-01 - TSHOrder Info: 302-7 - T4F Result Comment: The drugs N-Acetylcysteine and Metamizole may falselydepress this assay.Normal range: <150 mg/dLBorderline High: 150-199 mg/dLHigh: 200-499 mg/dLVery High: >500 mg/dL Performed By: #### L 501.5200, L503.6030, L501.9985, L503.0106, L506.1001, L503.6550, L500.4100 ####[facility] [address] [place], [place], [address] MCV (mean corpuscular volume ) determinationOrdered By: Jose Enrique Finney on 02-13-2025 MCV (RBC) [Entitic vol] 91.5 fL 80-94 [facility] Magnesiumon 02-13-2025 Magnesium [Mass/Vol] 2.3 mg/dL High 1.5-2.2 [facility] Comment on above: Order Comment: Order Date: 01/15/25Order Info: [id number] - CMPOrder Info: [id number] - TSHOrder Info: [id number] - T4F Performed By: #### L [id number], L503.6030, L501.9985, L503.0106, L506.1001, L503.6550, L500.4100 ####[facility] [address] [place], [place], [address] Magnesium measurement (mass/ volume)Ordered By: Jose Enrique Finney on 02-13-2025 Magnesium (Unsp spec) [Mass/Vol] 2.3 mg/dL High 1.5-2.2 [facility] Mean corpuscular hemoglobin (MCH) determinationOrdered By: Jose Enrique Finney on 02-13-2025 MCH (RBC) [Entitic mass] 29.7 pg 27.0-32.0 [facility] Mean corpuscular hemoglobin concentration (MCHC) determinationOrdered By: Jose Enrique Finney on 02-13-2025 MCHC (RBC) [Mass/Vol] 32.5 g/dL 32-36 [facility] Mean platelet volume determi nationOrdered By: Jose Enrique Finney on 02-13-2025 Platelet mean volume (Bld) [Entitic vol] 10.7 fL 6.2-12.0 [facility] Monocyte percentageOrdered B y: Jose Enrique Finney on 02-13-2025 Monocytes/100 WBC (Bld) 8.3 % 0-10 [facility] Neutrophil percentageOrdered By: Jose Enrique Finney on 02-13-2025 Neutrophils/100 WBC (Bld) 73.4 % High 47-70 [facility] No Panel InformationOrdered By: Jose Enrique Finney on 02-13-2025 Unsaturated Iron Binding Capacity 203 ug/dL Low 228-428 [facility] Nucleated red blood cell per centageOrdered By: Jose Enrique Finney on 02-13-2025 Nucleated RBC/100 WBC (Bld) [Ratio] 0 % 0-5 [facility] Platelet countOrdered By: Karen Finney on 02-13-2025 Platelets (Bld) [#/Vol] 173 10*3/uL 150-450 [facility] Potassium measurement (mass/ volume)Ordered By: Jose Enrique Finney on 02-13-2025 Potassium (Unsp spec) [Mass/Vol] 4.1 mmol/L 3.3-5.1 [facility] RBC Auto (Bld) [#/Vol]Ordere d By: Jose Enrique Finney on 02-13-2025 RBC (Bld) [#/Vol] 4.24 10*6/uL Low 4.6-6.2 [facility] Screening total cholesterol/ high density lipoprotein (HDL) cholesterol ratioOrdered By: Jose Enrique Finney on 02-13-2025 Cholesterol.total/Chol esterol in HDL [Mass ratio] 3.34 {ratio} [facility] Serum creatinine measurement (mass/volume)Ordered By: Jose Enrique Finney on 02-13-2025 Creatinine [Mass/Vol] 1.28 mg/dL High 0.70-1.20 [facility] Serum globulin measurementOr dered By: Jose Enrique Finney on 02-13-2025 Globulin (S) [Mass/Vol] 2.9 g/dL 2.2-4.2 [facility] Serum glucose measurement (m ass/volume)Ordered By: Jose Enrique Finney on 02-13-2025 Glucose [Mass/Vol] 295 mg/dL High 70-99 [facility] Serum or plasma alanine de la paz otransferase (ALT) measurementOrdered By: Jose Enrique Finney on 02-13-2025 ALT [Catalytic activity/Vol] 41 U/L <47 [facility] Serum or plasma albumin jason urement (mass/volume)Ordered By: Jose Enrique Finney on 02-13-2025 Albumin [Mass/Vol] 4.0 g/dL 3.4-4.8 [facility] Serum or plasma albumin/glob ulin mass ratioOrdered By: Jose Enrique Finney on 02-13-2025 Albumin/Globulin [Mass ratio] 1.4 {ratio} 0.9-2.4 [facility] Serum or plasma alkaline ina sphatase measurementOrdered By: Jose Enrique Finney on 02-13-2025 ALP [Catalytic activity/Vol] 123 U/L 40-129 [facility] Serum or plasma calcium jason urement (mass/volume)Ordered By: Jose Enrique Finney on 02-13-2025 Calcium [Mass/Vol] 9.1 mg/dL 7.6-11.0 [facility] Serum or plasma cholesterol in HDL measurement (mass/volume)Ordered By: Jose Enrique Finney on 02-13-2025 Cholesterol in HDL [Mass/Vol] 29 mg/dL Low >40 [facility] Comment on above: National Cholesterol Education Program (NCEP) guidelines:<40 mg/dL: Low HDL-cholesterol (major risk factor for CHD)>= 60 mg/dL: High HDL-cholesterol (negative risk factor for CHD)HDL-cholesterol is affected by a number of factors, e.g. smoking, exercise, hormones, sex and age. Serum or plasma cholesterol measurement (mass/volume)Ordered By: Jose Enrique Finney on 02-13-2025 Cholesterol [Mass/Vol] 96 mg/dL <201 [facility] Comment on above: Cholesterol level, D esirable <200 mg/dLBorderline high cholesterol 200-239 mg/dLHigh cholesterol >=240 mg/dLRecommendations of the NCEP Adult Treatment Panel for the following risk-cutoff thresholds for the [place] population. Serum or plasma ferritin sergo surement (mass/volume)Ordered By: Jose Enrique Finney on 02-13-2025 Ferritin [Mass/Vol] 104 ng/mL 37-417 [facility] Serum or plasma iron saturat ion measurement (mass fraction)Ordered By: Jose Enrique Finney on 02-13-2025 Iron saturation [Mass fraction] 33.0 % 9-55 [facility] Serum or plasma urea nitroge n measurement (mass/volume)Ordered By: Jose Enrique Finney on 02-13-2025 Urea nitrogen [Mass/Vol] 29 mg/dL High 4-19 [facility] Sodium levelOrdered By: Jose Enrique Finney on 02-13-2025 Sodium [Moles/Vol] 136 mmol/L 133-145 [facility] T4 Free Directon 02-13-2025 T4 FREE DIRECT 1.20 ng/dL Normal 0.76-1.46 [facility] Comment on above: Order Comment: Order Date: 01/15/25Order Info: [id number] - CMPOrder Info: [id number] - TSHOrder Info: [id number] - T4F Performed By: #### L 506.0400, L500.4050, L501.9520, L100.0100 ####[facility] [address] [place], [address] T4 freeOrdered By: Jose Enrique pappas on 02-13-2025 Free T4 [Mass/Vol] 1.20 ng/dL 0.76-1.46 [facility] TSH DL <= 0.005 mIU/L QnOrde red By: Jose Enrique Finney on 02-13-2025 TSH Qn 1.690 uIU/mL 0.300-4.20 0 [facility] Thyroid Stim Hormone (TSH)on 02-13-2025 TSH 1.690 uIU/mL Normal 0.300-4.20 0 [facility] Comment on above: Order Comment: Order Date: 01/15/25Order Info: [id number] - CMPOrder Info: [id number] - TSHOrder Info: [id number] - T4F Performed By: #### L 506.0400, L500.4050, L501.9520, L100.0100 ####[facility] [address] [place], [place], [address] Total proteinOrdered By: Remington Finney on 02-13-2025 Protein [Mass/Vol] 6.9 g/dL 5.9-8.4 [facility] Triglycerides measurementOrd ered By: Jose Enrique Finney on 02-13-2025 Triglyceride [Mass/Vol] 101 mg/dL <199 [facility] Comment on above: The drugs N-Acetylcy steine and Metamizole may falsely depress this assay. Normal range: <150 mg/dLBorderline High: 150-199 mg/dLHigh: 200-499 mg/dLVery High: >500 mg/dL Vitamin B12on 02-13-2025 Cobalamin (Vitamin B12) [Mass/Vol] 411 pg/mL Normal 180-914 [facility] Comment on above: Order Comment: Order Date: 01/15/25Order Info: [id number] - CMPOrder Info: [id number] - TSHOrder Info: [id number] T4F Performed By: #### L 501.5200, L503.6030, L501.9985, L503.0106, L506.1001, L503.6550, L500.4100 ####[facility] [address] [place], [address] Vitamin B12 ser/plasOrdered By: Jose Enrique Finney on 02-13-2025 Cobalamin (Vitamin B12) [Mass/Vol] 411 pg/mL 180-914 [facility] Vitamin D,25 Hydroxyon 02-13 Vitamin D 25-OH 51.7 ng/mL Normal 30-100 [facility] Comment on above: Order Comment: Order Date: 01/15/25Order Info: [id number] - CMPOrder Info: [id number] - TSHOrder Info: [id number] - T4F Result Comment: Verito min D StatusDeficiency: <20 ng/mL (50nmol/L)Insufficiency: 20-30 ng/mL (50-75 nmol/L)Sufficiency: 30-100 ng/mL (75-250 nmol/L)Toxicity: >100 ng/mL (>250 nmol/L) Performed By: #### L 501.5200, L503.6030, L501.9985, L503.0106, L506.1001, L503.6550, L500.4100 ####[facility] [address] [place], [address] White blood cell (WBC) count Ordered By: Jose Enrique Finney on 02-13-2025 WBC (Bld) [#/Vol] 6.8 10*3/uL 4.4-11.0 [facility] Cardiology Visit Reporton Cardiology Visit Report Normal [facility] Knee 4 or More Viewson 01-28 Knee 4 or More Views Normal [facility] Orthopedic Visit Reporton Orthopedic Visit Report Normal [facility] Microalb:Creat Ratio,Random URon 01-18-2025 MALB:CREAT 80.5 mg/g CRE Normal [facility] Comment on above: Order Comment: Order Date: 11/21/24Order Info: [id number] - MIALB Result Comment: AMENDED REPORT 01/18/25 0949 MALB:CREAT previously reported as: 805.4 mg/g CRE Performed By: #### L 501.0900, L400.0001, L502.0250 ####[facility] [address] [place], [address] Bedside Glucoseon 01-09-2025 FINGERSTICK GLU 134 mg/dL High 74-106 [facility] Comment on above: Result Comment: IZABELLA THOMPSON OF PATIENT CARE PER NURSING PROTOCOL Performed By: #### L 501.080 ####[facility] [address] [place], [address] EGD Reporton 01-09-2025 EGD Report Normal [facility]dered By: Checo Chavez on 01-09-2025 Glucose [Mass/Vol] 134 mg/dL High 74-106 [facility] Comment on above: MANAGEMENT OF PATIEN T CARE PER NURSING PROTOCOL MR/POSTOP.ANEon 01-09-2025 MR/POSTOP.ANE Normal [facility] MR/OORIOGDV9ti 01-09-2025 MR/POSTOPAN2 Normal [facility] Surgery Specimen Level Hubert 01-09-2025 Surgery Specimen Level IV Normal [facility] Comment on above: Performed By: #### P SUIV ####[facility] [address] [place], [address] MR/PAT.ANEon 01-04-2025 MR/PAT.ANE Normal [facility] Chest PA and Lateralon 12-26 Chest PA and Lateral Normal [facility] Bilirubin Test strip Ql (U)O rdered By: Jose Enrique Finney on 12-10-2024 Bilirubin Ql (U) Negative Negative [facility] Ketones Test strip Ql (U)Ord ered By: Jose Enrique Finney on 12-10-2024 Ketones Ql (U) Negative Negative [facility] Microscopic analysis of urin e for red blood cells (RBC)Ordered By: Jose Enrique Finney on 12-10-2024 Microscopic analysis of urine for red blood cells (RBC) 0 SEEN /hpf 0-5 [facility] Mucus LM Ql (Urine sed)Order ed By: Jose Enrique Finney on 12-10-2024 Mucus Ql (Urine sed) 0 SEEN /hpf [facility] Nitrite Test strip Ql (U)Ord ered By: Jose Enrique Finney on 12-10-2024 Nitrite Ql (U) Negative Negative [facility] Protein Test strip Ql (U)Ord ered By: Jose Enrique Finney on 12-10-2024 Protein Ql (U) 15 mg/dl High Negative [facility] Protein+Creatinine Ratio,Uri neon 12-10-2024 PROT:CRE RATIO 311 mg/g CRE High 0-200 [facility] Comment on above: Order Comment: Order Date: 11/21/24Order Info: [id number] - MIALB Performed By: #### L 501.0900, L400.0001, L502.0250 ####[facility] [address] [place], [address] Protein (U) [Mass/Vol] 15.0 mg/dL High 0.0-12.0 [facility] Comment on above: Order Comment: Order Date: 11/21/24Order Info: [id number] - MIALB Performed By: #### L 501.0900, L400.0001, L502.0250 ####[facility] [address] [place], [address] UR CREAT 48.30 mg/dL Normal 39.00-259. 00 [facility] Comment on above: Order Comment: Order Date: 11/21/24Order Info: [id number] - MIALB Performed By: #### L 501.0900, L400.0001, L502.0250 ####[facility] [address] [place], [address] Random urine creatinine jason urement (mass/volume)Ordered By: Jose Enrique Finney on 12-10-2024 Creatinine Unsp time (U) [Mass/Vol] 48.30 mg/dL 39.00-259. 00 [facility] Squamous epithelial cells de tection in urine sediment by light microscopyOrdered By: Jose Enrique Finney on 12-10-2024 Epithelial cells.squamous LM Ql (Urine sed) 0 SEEN /hpf 0-5 [facility] Urinalysis, Completeon 12-10 BACTERIA 0 SEEN Normal None Seen [facility] Comment on above: Order Comment: Urine , Random Performed By: #### L 501.0900, L400.0001, L502.0250 ####[facility] [address] [place], [address] EPI,SQUAMOUS 0 SEEN Normal 0-5 [facility] Comment on above: Order Comment: Urine , Random Performed By: #### L 501.0900, L400.0001, L502.0250 ####[facility] [address] [place], [address] Mucus Ql (Urine sed) 0 SEEN Normal [facility] Comment on above: Order Comment: Urine , Random Performed By: #### L 501.0900, L400.0001, L502.0250 ####[facility] [address] [place], [address] RBC 0 SEEN Normal 0-5 [facility] Comment on above: Order Comment: Urine , Random Performed By: #### L 501.0900, L400.0001, L502.0250 ####[facility] [address] [place], [address] WBC 0 SEEN Normal 0-5 [facility] Comment on above: Order Comment: Urine , Random Performed By: #### L 501.0900, L400.0001, L502.0250 ####[facility] [address] [place], [address] Urine albumin measurement wi detection limit of 20 mg/L or less (mass/volume)Ordered By: Jose Enrique Finney on 12-10-2024 Albumin DL <= 20 mg/L (U) [Mass/Vol] 38.9 mg/L NO RANGE EST. [facility] Urine clarityOrdered By: Remington Finney on 12-10-2024 Clarity (U) Clear Clear [facility] Urine color determinationOrd ered By: Jose Enrique Finney on 12-10-2024 Color (U) Yellow Yellow [facility] Urine glucose detectionOrder ed By: Jose Enrique Finney on 12-10-2024 Glucose Ql (U) Normal mg/dl Normal [facility] Urine leukocyte esterase det ection by dipstickOrdered By: Jose Enrique Finney on 12-10-2024 Leukocyte esterase Test strip Ql (U) Negative Negative [facility] Urine pHOrdered By: Jose Enrique borrero on 12-10-2024 pH (U) 6.0 [pH] 5.0 - 8.0 [facility] Urine protein measurement (m ass/volume)Ordered By: Jose Enrique Finney on 12-10-2024 Protein (U) [Mass/Vol] 15.0 mg/dL High 0.0-12.0 [facility] Urine protein/creatinine mas s ratioOrdered By: Jose Enrique Finney on 12-10-2024 Protein/Creatinine (U) [Mass ratio] 311 mg/g CRE High 0-200 [facility] Urine sediment bacteria coun t by microscopy (number/high power field)Ordered By: Jose Enrique Finney on 12-10-2024 Bacteria LM.HPF (Urine sed) [#/Area] 0 /[HPF] None Seen [facility] Urine specific gravity measu rementOrdered By: Jose Enrique Finney on 12-10-2024 Specific gravity (U) [Rel density] 1.010 1.002-1.03 0 [facility] Urine urobilinogen measureme ntOrdered By: Jose Enrique Finney on 12-10-2024 Urobilinogen Ql (U) Normal mg/dl Normal [facility] White blood cell countOrdere d By: Jose Enrique Finney on 12-10-2024 White blood cell count 0 SEEN /hpf 0-5 [facility] Absolute lymphocyte countOrd ered By: Jose Enrique Finney on 12-06-2024 Lymphocytes Auto (Unsp spec) [#/Vol] 0.76 10*3/uL Low 0.83-4.51 [facility] Absolute neutrophil countOrd ered By: Jose Enrique Finney on 12-06-2024 Neutrophils (Bld) [#/Vol] 4.2 10*3/uL 2.0-7.7 [facility] Anion gap in Serum or Plasma Ordered By: Jose Enrique Finney on 12-06-2024 Anion gap [Moles/Vol] 14 mmol/L 5-15 [facility] Automated lymphocyte count a s percentage of total leukocytesOrdered By: Jose Enrique Finney on 12-06-2024 Lymphocytes/100 WBC Auto (Unsp spec) 13.9 % Low 19-41 [facility] BUN/creatinine ratioOrdered By: Jose Enrique Finney on 12-06-2024 Urea nitrogen/Creatinine [Mass ratio] 13.8 mg/mg 10-20 [facility] Basophil percentageOrdered B y: Jose Enrique Finney on 12-06-2024 Basophils/100 WBC (Bld) 0.5 % 0-1 [facility] Bilirubin, totalOrdered By: Jose Enrique Finney on 12-06-2024 Bilirubin [Mass/Vol] 0.66 mg/dL 0.00-1.30 [facility] CBC W/Diff, Automatedon Absolute Lymph 0.76 X10 3/uL Low 0.83-4.51 [facility] Comment on above: Order Comment: COMMERCIAL LOAN PROCESSOR. A NTHONY OREDERED CBCD ALSOOrder Date: 11/21/24Order Info: [id number] - CBCD Performed By: #### L 100.0100, L509.1000, L501.5200, L500.4100, L501.9985, L500.4050 ####[facility] [address] [place], [address] Absolute Neut 4.2 X10 3/uL Normal 2.0-7.7 [facility] Comment on above: Order Comment: COMMERCIAL LOAN PROCESSOR. A NTHONY OREDERED CBCD ALSOOrder Date: 11/21/24Order Info: [id number] - CBCD Performed By: #### L 100.0100, L509.1000, L501.5200, L500.4100, L501.9985, L500.4050 ####[facility] [address] [place], [address] Basophils/100 WBC (Bld) 0.5 % Normal 0-1 [facility] Comment on above: Order Comment: COMMERCIAL LOAN PROCESSOR. A NTHONY OREDERED CBCD ALSOOrder Date: 11/21/24Order Info: [id number] - CBCD Performed By: #### L 100.0100, L509.1000, L501.5200, L500.4100, L501.9985, L500.4050 ####[facility] [address] [place], [address] Eosinophils/100 WBC (Bld) 0.9 % Normal 0-5 [facility] Comment on above: Order Comment: COMMERCIAL LOAN PROCESSOR. A NTHONY OREDERED CBCD ALSOOrder Date: 11/21/24Order Info: [id number] - CBCD Performed By: #### L 100.0100, L509.1000, L501.5200, L500.4100, L501.9985, L500.4050 ####[facility] [address] [place], [address] Erythrocyte distribution width (RBC) [Ratio] 13.6 % Normal 11.6-14.6 [facility] Comment on above: Order Comment: COMMERCIAL LOAN PROCESSOR. A ABRAHAM TORIBIODERED CBCD ALSOOrder Date: 11/21/24Order Info: [id number] - CBCD Performed By: #### L 100.0100, L509.1000, L501.5200, L500.4100, L501.9985, L500.4050 ####[facility] [address] [place], [address] Hematocrit (Bld) [Volume fraction] 33.0 % Low 40-54 [facility] Comment on above: Order Comment: COMMERCIAL LOAN PROCESSOR. Kerline TORIBIODERED CBCD ALSOOrder Date: 11/21/24Order Info: [id number] - CBCD Performed By: #### L 100.0100, L509.1000, L501.5200, L500.4100, L501.9985, L500.4050 ####[facility] [address] [place], [address] Hemoglobin (Bld) [Mass/Vol] 10.6 g/dL Low 13.0-16.5 [facility] Comment on above: Order Comment: COMMERCIAL LOAN PROCESSOR. A ABRAHAM OREDERED CBCD ALSOOrder Date: 11/21/24Order Info: [id number] - CBCD Performed By: #### L 100.0100, L509.1000, L501.5200, L500.4100, L501.9985, L500.4050 ####[facility] [address] [place], [address] IG% 0.400 Normal 0.0-0.9 [facility] Comment on above: Order Comment: COMMERCIAL LOAN PROCESSOR. A NTHOWALKER OREDERED CBCD ALSOOrder Date: 11/21/24Order Info: [id number] - CBCD Result Comment: IG% - Immature Granulocytes (promyelocytes, myelocytes andmetamyelocytes) > 1% indicates that a LEFT SHIFT is Present. Performed By: #### L 100.0100, L509.1000, L501.5200, L500.4100, L501.9985, L500.4050 ####[facility] [address] [place], [address] Lymphocytes/100 WBC (Bld) 13.9 % Low 19-41 [facility] Comment on above: Order Comment: COMMERCIAL LOAN PROCESSOR. A NTSILVER TORIBIODERED CBCD ALSOOrder Date: 11/21/24Order Info: 018- - CBCD Performed By: #### L 100.0100, L509.1000, L501.5200, L500.4100, L501.9985, L500.4050 ####[facility] [address] [facility] [place], [address] MCH (RBC) [Entitic mass] 30.8 pg Normal 27.0-32.0 [facility] Comment on above: Order Comment: COMMERCIAL LOAN PROCESSOR. A NTSILVER TORIBIODERED CBCD ALSOOrder Date: 11/21/24Order Info: [id number]- - CBCD Performed By: #### L 100.0100, L509.1000, L501.5200, L500.4100, L501.9985, L500.4050 ####[facility] [address] [place], [address] MCHC (RBC) [Mass/Vol] 32.1 g/dL Normal 32-36 [facility] Comment on above: Order Comment: COMMERCIAL LOAN PROCESSOR. A NTSILVER OREDERED CBCD ALSOOrder Date: 11/21/24Order Info: 018-1 - CBCD Performed By: #### L 100.0100, L509.1000, L501.5200, L500.4100, L501.9985, L500.4050 ####[facility] [address] [place], [address] MCV (RBC) [Entitic vol] 95.9 fL High 80-94 [facility] Comment on above: Order Comment: COMMERCIAL LOAN PROCESSOR. A NTHONY OREDERED CBCD ALSOOrder Date: 11/21/24Order Info: 183- - CBCD Performed By: #### L 100.0100, L509.1000, L501.5200, L500.4100, L501.9985, L500.4050 ####[facility] [address] [place], [address] Monocytes/100 WBC (Bld) 8.6 % Normal 0-10 [facility] Comment on above: Order Comment: COMMERCIAL LOAN PROCESSOR. A NTHONY OREDERED CBCD ALSOOrder Date: 11/21/24Order Info: 183- - CBCD Performed By: #### L 100.0100, L509.1000, L501.5200, L500.4100, L501.9985, L500.4050 ####[facility] [address] [place], [address] Neutrophils/100 WBC (Bld) 75.7 % High 47-70 [facility] Comment on above: Order Comment: COMMERCIAL LOAN PROCESSOR. A NTHONY OREDERED CBCD ALSOOrder Date: 11/21/24Order Info: 018- - CBCD Performed By: #### L 100.0100, L509.1000, L501.5200, L500.4100, L501.9985, L500.4050 ####[facility] [address] [place], [address] Nucleated RBC (Bld) [#/Vol] 0 10*3/uL Normal 0-5 [facility] Comment on above: Order Comment: COMMERCIAL LOAN PROCESSOR. A NTHONY OREDERED CBCD ALSOOrder Date: 11/21/24Order Info: 018- - CBCD Performed By: #### L 100.0100, L509.1000, L501.5200, L500.4100, L501.9985, L500.4050 ####[facility] [address] [place], [address] Platelet mean volume (Bld) [Entitic vol] 10.1 fL Normal 6.2-12.0 [facility] Comment on above: Order Comment: COMMERCIAL LOAN PROCESSOR. A NTHONY OREDERED CBCD ALSOOrder Date: 11/21/24Order Info: [id number] - CBCD Performed By: #### L 100.0100, L509.1000, L501.5200, L500.4100, L501.9985, L500.4050 ####[facility] [address] [place], [address] Platelets (Bld) [#/Vol] 181 10*3/uL Normal 150-450 [facility] Comment on above: Order Comment: COMMERCIAL LOAN PROCESSOR. A NTHONY OREDERED CBCD ALSOOrder Date: 11/21/24Order Info: 0184-1 - CBCD Performed By: #### L 100.0100, L509.1000, L501.5200, L500.4100, L501.9985, L500.4050 ####[facility] [address] [place], [address] RBC (Bld) [#/Vol] 3.44 10*6/uL Low 4.6-6.2 [facility] Comment on above: Order Comment: COMMERCIAL LOAN PROCESSOR. A NTHONY OREDERED CBCD ALSOOrder Date: 11/21/24Order Info: 0184-1 - CBCD Performed By: #### L 100.0100, L509.1000, L501.5200, L500.4100, L501.9985, L500.4050 ####[facility] [address] [place], [address] RDW SD 47.8 fl High 35.1-43.9 [facility] Comment on above: Order Comment: COMMERCIAL LOAN PROCESSOR. A NTHONY OREDERED CBCD ALSOOrder Date: 11/21/24Order Info: 0184-1 - CBCD Performed By: #### L 100.0100, L509.1000, L501.5200, L500.4100, L501.9985, L500.4050 ####[facility] [address] [place], [address] WBC (Bld) [#/Vol] 5.5 10*3/uL Normal 4.4-11.0 [facility] Comment on above: Order Comment: COMMERCIAL LOAN PROCESSOR. A ABRAHAM OREDERED CBCD ALSOOrder Date: 11/21/24Order Info: 0184-1 - CBCD Performed By: #### L 100.0100, L509.1000, L501.5200, L500.4100, L501.9985, L500.4050 ####[facility] [address] [place], [address] Absolute Neut Normal 2.0-7.7 [facility] Comment on above: Result Comment: ON O THER REQ Performed By: #### L 100.0100 ####[facility] [address] [place], [address] HCT Normal 40-54 [facility] Comment on above: Result Comment: ON O THER REQ Performed By: #### L 100.0100 ####[facility] [address] [place], [address] HGB Normal 13.0-16.5 [facility] Comment on above: Result Comment: ON O THER REQ Performed By: #### L 100.0100 ####[facility] [address] [place], [address] MCH Normal 27.0-32.0 [facility] Comment on above: Result Comment: ON O THER REQ Performed By: #### L 100.0100 ####[facility] [address] [place], [address] MCHC Normal 32-36 [facility] Comment on above: Result Comment: ON O THER REQ Performed By: #### L 100.0100 ####[facility] [address] [place], [address] MCV Normal 80-94 [facility] Comment on above: Result Comment: ON O THER REQ Performed By: #### L 100.0100 ####[facility] [address] [place], [address] NEUT% Normal 47-70 [facility] Comment on above: Result Comment: ON O THER REQ Performed By: #### L 100.0100 ####[facility] [address] [place], [address] PLT Normal 150-450 [facility] Comment on above: Result Comment: ON O THER REQ Performed By: #### L 100.0100 ####[facility] [address] [place], [address] RBC Normal 4.6-6.2 [facility] Comment on above: Result Comment: ON O THER REQ Performed By: #### L 100.0100 ####[facility] [address] [place], [address] RDW CV Normal 11.6-14.6 [facility] Comment on above: Result Comment: ON O THER REQ Performed By: #### L 100.0100 ####[facility] [address] [place], [address] RDW SD Normal 35.1-43.9 [facility] Comment on above: Result Comment: ON O THER REQ Performed By: #### L 100.0100 ####[facility] [address] [place], [address] WBC Normal 4.4-11.0 [facility] Comment on above: Result Comment: ON O THER REQ Performed By: #### L 100.0100 ####[facility] [address] [place], [place], [id number] Calculated very low density lipoprotein (VLDL) cholesterol measurementOrdered By: Jose Enrique Finney on 12-06-2024 Calculated very low density lipoprotein (VLDL) cholesterol measurement 18 mg/dL 5-40 [facility] Carbon dioxide, total [Moles /volume] in Central venous bloodOrdered By: Jose Enrique Finney on 12-06-2024 CO2 [Moles/Vol] 19.0 mmol/L Low 21.0-32.0 [facility] Chloride assayOrdered By: Karen Finney on 12-06-2024 Chloride [Moles/Vol] 103 mmol/L 98-108 [facility] Comprehensive Metabolic Prof ilon 12-06-2024 Albumin [Mass/Vol] 3.8 g/dL Normal 3.4-4.8 [facility] Comment on above: Order Comment: COMMERCIAL LOAN PROCESSOR. A ABRAHAM OREDERED CBCD ALSOOrder Date: 11/21/24Order Info: [id number] - CMPOrder Info: [id number] - LIPIDOrder Info: [id number] - MG Performed By: #### L 100.0100, L509.1000, L501.5200, L500.4100, L501.9985, L500.4050 ####[facility] [address] [place], [address] Albumin/Globulin [Mass ratio] 1.4 {ratio} Normal 0.9-2.4 [facility] Comment on above: Order Comment: COMMERCIAL LOAN PROCESSOR. A ABRAHAM OREDERED CBCD ALSOOrder Date: 11/21/24Order Info: [id number] - CMPOrder Info: [id number] - LIPIDOrder Info: [id number] - MG Performed By: #### L 100.0100, L509.1000, L501.5200, L500.4100, L501.9985, L500.4050 ####[facility] [address] [place], [place], [id number] ALK PHOS 123 U/L Normal 40-129 [facility] Comment on above: Order Comment: COMMERCIAL LOAN PROCESSOR. A NTHONY OREDERED CBCD ALSOOrder Date: 11/21/24Order Info: [id number] - CMPOrder Info: [id number] - LIPIDOrder Info: [id number] - MG Performed By: #### L 100.0100, L509.1000, L501.5200, L500.4100, L501.9985, L500.4050 ####[facility] [address] [place], [address] ALT [Catalytic activity/Vol] 29 U/L Normal <=46 [facility] Comment on above: Order Comment: COMMERCIAL LOAN PROCESSOR. A NTHONY OREDERED CBCD ALSOOrder Date: 11/21/24Order Info: [id number] - CMPOrder Info: [id number] - LIPIDOrder Info: - MG Performed By: #### L 100.0100, L509.1000, L501.5200, L500.4100, L501.9985, L500.4050 ####[facility] [address] [place], [place], [phone] AST [Catalytic activity/Vol] 26 U/L Normal <=37 [facility] Comment on above: Order Comment: COMMERCIAL LOAN PROCESSOR. A NTHONY OREDERED CBCD ALSOOrder Date: 11/21/24Order Info: [id number] - CMPOrder Info: [id number] - LIPIDOrder Info: - MG Performed By: #### L 100.0100, L509.1000, L501.5200, L500.4100, L501.9985, L500.4050 ####[facility] [address] [place], [place], [address] Bilirubin [Mass/Vol] 0.66 mg/dL Normal 0.00-1.30 [facility] Comment on above: Order Comment: COMMERCIAL LOAN PROCESSOR. A NTHONY OREDERED CBCD ALSOOrder Date: 11/21/24Order Info: [id number] - CMPOrder Info: [id number] - LIPIDOrder Info: - MG Performed By: #### L 100.0100, L509.1000, L501.5200, L500.4100, L501.9985, L500.4050 ####[facility] [address] [place], [address] BUN/CRE 13.8 RATIO Normal 10-20 [facility] Comment on above: Order Comment: COMMERCIAL LOAN PROCESSOR. A NTHONY OREDERED CBCD ALSOOrder Date: 11/21/24Order Info: [id number] - CMPOrder Info: [id number] - LIPIDOrder Info: [id number] - MG Performed By: #### L 100.0100, L509.1000, L501.5200, L500.4100, L501.9985, L500.4050 ####[facility] [address] [place], [address] Calcium [Mass/Vol] 8.6 mg/dL Normal 7.6-11.0 [facility] Comment on above: Order Comment: COMMERCIAL LOAN PROCESSOR. A NTHONY OREDERED CBCD ALSOOrder Date: 11/21/24Order Info: [id number] - CMPOrder Info: [id number] - LIPIDOrder Info: [id number] - MG Performed By: #### L 100.0100, L509.1000, L501.5200, L500.4100, L501.9985, L500.4050 ####[facility] [address] [place], [address] Chloride [Moles/Vol] 103 mmol/L Normal 98-108 [facility] Comment on above: Order Comment: COMMERCIAL LOAN PROCESSOR. A NTHONY OREDERED CBCD ALSOOrder Date: 11/21/24Order Info: [id number] - CMPOrder Info: [id number] - LIPIDOrder Info: [id number] - MG Performed By: #### L 100.0100, L509.1000, L501.5200, L500.4100, L501.9985, L500.4050 ####[facility] [address] [place], [place], [phone] CO2 [Moles/Vol] 19.0 mmol/L Low 21.0-32.0 [facility] Comment on above: Order Comment: COMMERCIAL LOAN PROCESSOR. A NTHONY OREDERED CBCD ALSOOrder Date: 11/21/24Order Info: [id number] - CMPOrder Info: [id number] - LIPIDOrder Info: [id number] - MG Performed By: #### L 100.0100, L509.1000, L501.5200, L500.4100, L501.9985, L500.4050 ####[facility] [address] [place], [address] Creatinine [Mass/Vol] 1.50 mg/dL High 0.70-1.20 [facility] Comment on above: Order Comment: COMMERCIAL LOAN PROCESSOR. A NTHONY OREDERED CBCD ALSOOrder Date: 11/21/24Order Info: [id number] - CMPOrder Info: [id number] - LIPIDOrder Info: [id number] - MG Performed By: #### L 100.0100, L509.1000, L501.5200, L500.4100, L501.9985, L500.4050 ####[facility] [address] [place], [place], [id number] GAP 14 Normal 5-15 [facility] Comment on above: Order Comment: COMMERCIAL LOAN PROCESSOR. A NTHONY OREDERED CBCD ALSOOrder Date: 11/21/24Order Info: [id number] - CMPOrder Info: [id number] - LIPIDOrder Info: [id number] - MG Performed By: #### L 100.0100, L509.1000, L501.5200, L500.4100, L501.9985, L500.4050 ####[facility] [address] [place], [place], [id number] GFR/1.73 sq M.predicted among non-blacks MDRD (S/P/Bld) [Vol rate/Area] 46 mL/min/{1.73_m2} Low >60 [facility] Comment on above: Order Comment: COMMERCIAL LOAN PROCESSOR. A NTHONY OREDERED CBCD ALSOOrder Date: 11/21/24Order Info: [id number] - CMPOrder Info: [id number] - LIPIDOrder Info: [id number] - MG Result Comment: mL/m in/1.73m2 CKD-EPI Creatinine Equation (2020) Performed By: #### L 100.0100, L509.1000, L501.5200, L500.4100, L501.9985, L500.4050 ####[facility] [address] [place], [address] Globulin (S) [Mass/Vol] 2.7 g/dL Normal 2.2-4.2 [facility] Comment on above: Order Comment: COMMERCIAL LOAN PROCESSOR. A NTHONY OREDERED CBCD ALSOOrder Date: 11/21/24Order Info: [id number] - CMPOrder Info: [id number] - LIPIDOrder Info: [id number] - MG Performed By: #### L 100.0100, L509.1000, L501.5200, L500.4100, L501.9985, L500.4050 ####[facility] [address] [place], [address] Glucose [Mass/Vol] 324 mg/dL High 70-99 [facility] Comment on above: Order Comment: COMMERCIAL LOAN PROCESSOR. A NTHONY OREDERED CBCD ALSOOrder Date: 11/21/24Order Info: [id number] - CMPOrder Info: [id number] - LIPIDOrder Info: [id number] - MG Performed By: #### L 100.0100, L509.1000, L501.5200, L500.4100, L501.9985, L500.4050 ####[facility] [address] [place], [address] Potassium [Moles/Vol] 4.7 mmol/L Normal 3.3-5.1 [facility] Comment on above: Order Comment: COMMERCIAL LOAN PROCESSOR. A NTHONY OREDERED CBCD ALSOOrder Date: 11/21/24Order Info: [id number] - CMPOrder Info: [id number] - LIPIDOrder Info: - MG Performed By: #### L 100.0100, L509.1000, L501.5200, L500.4100, L501.9985, L500.4050 ####[facility] [address] [place], [place], [phone] Sodium [Moles/Vol] 136 mmol/L Normal 133-145 [facility] Comment on above: Order Comment: COMMERCIAL LOAN PROCESSOR. A NTHONY OREDERED CBCD ALSOOrder Date: 11/21/24Order Info: [id number] - CMPOrder Info: [id number] - LIPIDOrder Info: - MG Performed By: #### L 100.0100, L509.1000, L501.5200, L500.4100, L501.9985, L500.4050 ####[facility] [address] [place], [place], [id number] T PROT 6.5 g/dL Normal 5.9-8.4 [facility] Comment on above: Order Comment: COMMERCIAL LOAN PROCESSOR. A NTHONY OREDERED CBCD ALSOOrder Date: 11/21/24Order Info: [id number] - CMPOrder Info: [id number] - LIPIDOrder Info: - MG Performed By: #### L 100.0100, L509.1000, L501.5200, L500.4100, L501.9985, L500.4050 ####[facility] [address] [place], [place], [address] Urea nitrogen [Mass/Vol] 21 mg/dL High 4-19 [facility] Comment on above: Order Comment: COMMERCIAL LOAN PROCESSOR. A NTHONY OREDERED CBCD ALSOOrder Date: 11/21/24Order Info: [id number] - CMPOrder Info: [id number] - LIPIDOrder Info: - MG Performed By: #### L 100.0100, L509.1000, L501.5200, L500.4100, L501.9985, L500.4050 ####[facility] [address] [place], [address] Eosinophil percentageOrdered By: Jose Enrique Finney on 12-06-2024 Eosinophils/100 WBC (Bld) 0.9 % 0-5 [facility] Erythrocyte distribution wid th ratioOrdered By: Jose Enrique Finney on 12-06-2024 Erythrocyte distribution width (RBC) [Ratio] 13.6 % 11.6-14.6 [facility] Erythrocyte distribution wid th standard deviationOrdered By: Jose Enrique Finney on 12-06-2024 Erythrocyte distribution width (RBC) [Ratio] 47.8 fl High 35.1-43.9 [facility] Glomerular filtration rate ( GFR) estimation/1.73 sq m using serum, plasma, or whole bOrdered By: Jose Enrique Finney on 12-06-2024 GFR/1.73 sq M.predicted among non-blacks MDRD (S/P/Bld) [Vol rate/Area] 46 mL/min/{1.73_m2} Low >60 [facility] Comment on above: mL/min/1.73m2 CKD-EP I Creatinine Equation (2020) Hematocrit Auto (Bld) [Volum e fraction]Ordered By: Jose Enrique Finney on 12-06-2024 Hematocrit (Bld) [Volume fraction] 33.0 % Low 40-54 [facility] Hemoglobin A1con 12-06-2024 HbA1c (Bld) [Mass fraction] 8.4 % High <=5.6 [facility] Comment on above: Order Comment: Order Date: 11/21/24Order Info: [id number] - A1C Result Comment: Norm al < 5.7 % Prediabetic 5.7 - 6.4 % Diabetic >or= 6.5 % Please note range changes. Performed By: #### L 100.0100, L509.1000, L501.5200, L500.4100, L501.9985, L500.4050 ####[facility] [address] [place], [address] Hemoglobin A1c percentageOrd ered By: Jose Enrique Finney on 12-06-2024 HbA1c (Bld) [Mass fraction] 8.4 % High <5.7 [facility] Comment on above: Normal < 5.7 % Predi abetic 5.7 - 6.4 % Diabetic >or= 6.5 % Please note range changes. Hemoglobin measurementOrdere d By: Jose Enrique Finney on 12-06-2024 Hemoglobin (Bld) [Mass/Vol] 10.6 g/dL Low 13.0-16.5 [facility] Immature granulocytes/100 WB C Auto (Bld)Ordered By: Jose Enrique Finney on 12-06-2024 Immature granulocytes/100 WBC (Bld) 0.400 % 0.0-0.9 [facility] Comment on above: IG% - Immature Granu locytes (promyelocytes, myelocytes and metamyelocytes) > 1% indicates that a LEFT SHIFT is Present. LDL calc ser/plasOrdered By: Jose Enrique Finney on 12-06-2024 Cholesterol in LDL [Mass/Vol] 32 mg/dL [facility] Comment on above: Sicngjskpl=179-680 m g/dL & Higher Uwsw=705 mg/dL or greater Laboratory - Chemistry and C hemistry - challengeOrdered By: Jose Enrique Finney on 12-06-2024 AST [Catalytic activity/Vol] 26 U/L <38 [facility] Lipid Profileon 12-06-2024 CHOL:HDL 2.93 Normal [facility] Comment on above: Order Comment: NP. Kerline ROSARIO OREDERED CBCD ALSOOrder Date: 11/21/24Order Info: [id number] - CMPOrder Info: [id number] - LIPIDOrder Info: - MG Performed By: #### L 100.0100, L509.1000, L501.5200, L500.4100, L501.9985, L500.4050 ####[facility] [address] [facility] [place], [place], [phone] Cholesterol [Mass/Vol] 75 mg/dL Normal <=200 [facility] Comment on above: Order Comment: NP. [place] NTHONY OREDERED CBCD ALSOOrder Date: 11/21/24Order Info: [id number] - CMPOrder Info: [id number] - LIPIDOrder Info: [id number] - MG Result Comment: Chol esterol level, Desirable <200 mg/dLBorderline high cholesterol 200-239 mg/dLHigh cholesterol >=240 mg/dLRecommendations of the NCEP Adult Treatment Panel for thefollowing risk-cutoff thresholds for the [place] Americanpopulation. Performed By: #### L 100.0100, L509.1000, L501.5200, L500.4100, L501.9985, L500.4050 ####[facility] [address] 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 Performed By: #### L 100.0100, L509.1000, L501.5200, L500.4100, L501.9985, L500.4050 ####[facility] [address] 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 A ABRAHAM OREDERED CBCD ALSOOrder Date: 11/21/24Order Info: [id number] - CMPOrder Info: [id number] - LIPIDOrder Info: [id number] - MG Result Comment: Bord qbouub=315-346 mg/dL Higher Edik=267 mg/dL or greater Performed By: #### L 100.0100, L509.1000, L501.5200, L500.4100, L501.9985, L500.4050 ####[facility] [address] 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 A NTHONY OREDERED CBCD ALSOOrder Date: 11/21/24Order Info: [id number] - CMPOrder Info: [id number] - LIPIDOrder Info: - MG Performed By: #### L 100.0100, L509.1000, L501.5200, L500.4100, L501.9985, L500.4050 ####[facility] [address] 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 A NTHONY OREDERED CBCD ALSOOrder Date: 11/21/24Order Info: [id number] - CMPOrder Info: [id number] - LIPIDOrder Info: - MG Result Comment: The drugs N-Acetylcysteine and Metamizole may falselydepress this assay.Normal range: <150 mg/dLBorderline High: 150-199 mg/dLHigh: 200-499 mg/dLVery High: >500 mg/dL Performed By: #### L 100.0100, L509.1000, L501.5200, L500.4100, L501.9985, L500.4050 ####[facility] [address] 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 [place], [place], [address] Magnesium measurement (mass/ volume)Ordered By: Jose Enrique Finney on 12-06-2024 Magnesium (Unsp spec) [Mass/Vol] 2.1 mg/dL 1.5-2.2 [facility] Mean corpuscular hemoglobin (MCH) determinationOrdered By: Jose Enrique Finney on 12-06-2024 MCH (RBC) [Entitic mass] 30.8 pg 27.0-32.0 [facility] Mean corpuscular hemoglobin concentration (MCHC) determinationOrdered By: Jose Enrique Finney on 12-06-2024 MCHC (RBC) [Mass/Vol] 32.1 g/dL 32-36 [facility] Mean platelet volume determi nationOrdered By: Jose Enrique Finney on 12-06-2024 Platelet mean volume (Bld) [Entitic vol] 10.1 fL 6.2-12.0 [facility] Monocyte percentageOrdered B y: Jose Enrique Finney on 12-06-2024 Monocytes/100 WBC (Bld) 8.6 % 0-10 [facility] Neutrophil percentageOrdered By: Jose Enrique Finney on 12-06-2024 Neutrophils/100 WBC (Bld) 75.7 % High 47-70 [facility] No Panel InformationOrdered By: Jose Enrique Finney on 12-06-2024 26 U/L <38 [facility] Nucleated red blood cell per centageOrdered By: Jose Enrique Finney on 12-06-2024 Nucleated RBC/100 WBC (Bld) [Ratio] 0 % 0-5 [facility] PTHINon 12-06-2024 PTH 53 pg/mL Normal 11-61 [facility] Comment on above: Order Comment: Order Date: 11/21/24Order Info: [id number] - PTHIN Performed By: #### L 100.0100, L509.1000, L501.5200, L500.4100, L501.9985, L500.4050 ####[facility] [address] [place], [address] Platelet countOrdered By: Karen Finney on 12-06-2024 Platelets (Bld) [#/Vol] 181 10*3/uL 150-450 [facility] Potassium measurement (mass/ volume)Ordered By: Jose Enrique Finney on 12-06-2024 Potassium (Unsp spec) [Mass/Vol] 4.7 mmol/L 3.3-5.1 [facility] RBC Auto (Bld) [#/Vol]Ordere d By: Jose Enrique Finney on 12-06-2024 RBC (Bld) [#/Vol] 3.44 10*6/uL Low 4.6-6.2 [facility] Screening total cholesterol/ high density lipoprotein (HDL) cholesterol ratioOrdered By: Jose Enrique Finney on 12-06-2024 Cholesterol.total/Chol esterol in HDL [Mass ratio] 2.93 {ratio} [facility] Serum creatinine measurement (mass/volume)Ordered By: Jose Enrique Finney on 12-06-2024 Creatinine [Mass/Vol] 1.50 mg/dL High 0.70-1.20 [facility] Serum globulin measurementOr dered By: Jose Enrique Finney on 12-06-2024 Globulin (S) [Mass/Vol] 2.7 g/dL 2.2-4.2 [facility] Serum glucose measurement (m ass/volume)Ordered By: Jose Enrique Finney on 12-06-2024 Glucose [Mass/Vol] 324 mg/dL High 70-99 [facility] Serum or plasma alanine de la paz otransferase (ALT) measurementOrdered By: Jose Enrique Finney on 12-06-2024 ALT [Catalytic activity/Vol] 29 U/L <47 [facility] Serum or plasma albumin jason urement (mass/volume)Ordered By: Jose Enrique Finney on 12-06-2024 Albumin [Mass/Vol] 3.8 g/dL 3.4-4.8 [facility] Serum or plasma albumin/glob ulin mass ratioOrdered By: Jose Enrique Finney on 12-06-2024 Albumin/Globulin [Mass ratio] 1.4 {ratio} 0.9-2.4 [facility] Serum or plasma alkaline ina sphatase measurementOrdered By: Jose Enrique Finney on 12-06-2024 ALP [Catalytic activity/Vol] 123 U/L 40-129 [facility] Serum or plasma calcium jason urement (mass/volume)Ordered By: Jose Enrique Finney on 12-06-2024 Calcium [Mass/Vol] 8.6 mg/dL 7.6-11.0 [facility] Serum or plasma cholesterol in HDL measurement (mass/volume)Ordered By: Jose Enrique Finney on 12-06-2024 Cholesterol in HDL [Mass/Vol] 26 mg/dL Low >40 [facility] Comment on above: National Cholesterol Education Program (NCEP) guidelines:<40 mg/dL: Low HDL-cholesterol (major risk factor for CHD)>= 60 mg/dL: High HDL-cholesterol (negative risk factor for CHD)HDL-cholesterol is affected by a number of factors, e.g. smoking, exercise, hormones, sex and age. Serum or plasma cholesterol measurement (mass/volume)Ordered By: Jose Enrique Finney on 12-06-2024 Cholesterol [Mass/Vol] 75 mg/dL <201 [facility] Comment on above: Cholesterol level, D esirable <200 mg/dLBorderline high cholesterol 200-239 mg/dLHigh cholesterol >=240 mg/dLRecommendations of the NCEP Adult Treatment Panel for the following risk-cutoff thresholds for the [place] population. Serum or plasma urea nitroge n measurement (mass/volume)Ordered By: Jose Enrique Finney on 12-06-2024 Urea nitrogen [Mass/Vol] 21 mg/dL High 4-19 [facility] Sodium levelOrdered By: Jose Enrique Finney on 12-06-2024 Sodium [Moles/Vol] 136 mmol/L 133-145 [facility] Total proteinOrdered By: Remington Finney on 12-06-2024 Protein [Mass/Vol] 6.5 g/dL 5.9-8.4 [facility] Triglycerides measurementOrd ered By: Jose Enrique Finney on 12-06-2024 Triglyceride [Mass/Vol] 88 mg/dL <199 [facility] Comment on above: The drugs N-Acetylcy steine and Metamizole may falsely depress this assay. Normal range: <150 mg/dLBorderline High: 150-199 mg/dLHigh: 200-499 mg/dLVery High: >500 mg/dL Vitamin D,25 Hydroxyon 12-06 Vitamin D 25-OH 47.0 ng/mL Normal 30-100 [facility] Comment on above: Order Comment: NP. [place] ABRAHAM OREDERED CBCD ALSOOrder Date: 11/21/24Order Info: [id number] - CMPOrder Info: [id number] - LIPIDOrder Info: [id number] - MG Result Comment: Verito min D StatusDeficiency: <20 ng/mL (50nmol/L)Insufficiency: 20-30 ng/mL (50-75 nmol/L)Sufficiency: 30-100 ng/mL (75-250 nmol/L)Toxicity: >100 ng/mL (>250 nmol/L) Performed By: #### L 506.1001 ####[facility] [address] [place], [place], [phone] White blood cell (WBC) count Ordered By: Jose Enrique Finney on 12-06-2024 WBC (Bld) [#/Vol] 5.5 10*3/uL 4.4-11.0 [facility] [facility] Absolute lymphocyte countOrd ered By: Geeta Diaz on 11-21-2024 Lymphocytes Auto (Unsp spec) [#/Vol] 0.76 10*3/uL Low 0.83-4.51 [facility] Absolute neutrophil countOrd ered By: Geeta Diaz on 11-21-2024 Neutrophils (Bld) [#/Vol] 2.7 10*3/uL 2.0-7.7 [facility] Automated lymphocyte count a s percentage of total leukocytesOrdered By: Geeta Diaz on 11-21-2024 Lymphocytes/100 WBC Auto (Unsp spec) 19.6 % 19-41 [facility] Basophil percentageOrdered B y: Geeta Diaz on 11-21-2024 Basophils/100 WBC (Bld) 0.8 % 0-1 [facility] CBC W/Diff, Automatedon 10-31 Absolute Lymph 0.76 X10 3/uL Low 0.83-4.51 [facility] Comment on above: Performed By: #### L 503.6030, L100.0100 ####[facility] [address] [place], [address] Absolute Neut 2.7 X10 3/uL Normal 2.0-7.7 [facility] Comment on above: Performed By: #### L 503.6030, L100.0100 ####[facility] [address] [place], [address] Basophils/100 WBC (Bld) 0.8 % Normal 0-1 [facility] Comment on above: Performed By: #### L 503.6030, L100.0100 ####[facility] [address] [place], [address] Eosinophils/100 WBC (Bld) 1.8 % Normal 0-5 [facility] Comment on above: Performed By: #### L 503.6030, L100.0100 ####[facility] [address] [place], [address] Erythrocyte distribution width (RBC) [Ratio] 13.7 % Normal 11.6-14.6 [facility] Comment on above: Performed By: #### L 503.6030, L100.0100 ####[facility] [address] [place], [address] Hematocrit (Bld) [Volume fraction] 32.4 % Low 40-54 [facility] Comment on above: Performed By: #### L 503.6030, L100.0100 ####[facility] [address] [place], [address] Hemoglobin (Bld) [Mass/Vol] 10.1 g/dL Low 13.0-16.5 [facility] Comment on above: Performed By: #### L 503.6030, L100.0100 ####[facility] [address] [place], [address] IG% 0.300 Normal 0.0-0.9 [facility] Comment on above: Result Comment: IG% - Immature Granulocytes (promyelocytes, myelocytes andmetamyelocytes) > 1% indicates that a LEFT SHIFT is Present. Performed By: #### L 503.6030, L100.0100 ####[facility] [address] [place], [address] Lymphocytes/100 WBC (Bld) 19.6 % Normal 19-41 [facility] Comment on above: Performed By: #### L 503.6030, L100.0100 ####[facility] [address] [place], [address] MCH (RBC) [Entitic mass] 30.6 pg Normal 27.0-32.0 [facility] Comment on above: Performed By: #### L 503.6030, L100.0100 ####[facility] [address] [place], [address] MCHC (RBC) [Mass/Vol] 31.2 g/dL Low 32-36 [facility] Comment on above: Performed By: #### L 503.6030, L100.0100 ####[facility] [address] [place], [address] MCV (RBC) [Entitic vol] 98.2 fL High 80-94 [facility] Comment on above: Performed By: #### L 503.6030, L100.0100 ####[facility] [address] [place], [address] Monocytes/100 WBC (Bld) 8.2 % Normal 0-10 [facility] Comment on above: Performed By: #### L 503.6030, L100.0100 ####[facility] [address] [place], [address] Neutrophils/100 WBC (Bld) 69.3 % Normal 47-70 [facility] Comment on above: Performed By: #### L 503.6030, L100.0100 ####[facility] [address] [place], [address] Nucleated RBC (Bld) [#/Vol] 0 10*3/uL Normal 0-5 [facility] Comment on above: Performed By: #### L 503.6030, L100.0100 ####[facility] [address] [place], [address] Platelet mean volume (Bld) [Entitic vol] 9.9 fL Normal 6.2-12.0 [facility] Comment on above: Performed By: #### L 503.6030, L100.0100 ####[facility] [address] [place], [address] Platelets (Bld) [#/Vol] 179 10*3/uL Normal 150-450 [facility] Comment on above: Performed By: #### L 503.6030, L100.0100 ####[facility] [address] [place], [address] RBC (Bld) [#/Vol] 3.30 10*6/uL Low 4.6-6.2 [facility] Comment on above: Performed By: #### L 503.6030, L100.0100 ####[facility] [address] [place], [address] RDW SD 49.2 fl High 35.1-43.9 [facility] Comment on above: Performed By: #### L 503.6030, L100.0100 ####[facility] [address] [place], [address] WBC (Bld) [#/Vol] 3.9 10*3/uL Low 4.4-11.0 [facility] Comment on above: Performed By: #### L 503.6030, L100.0100 ####[facility] [address] [place], [address] Calculated total iron bindin g capacityOrdered By: Geeta Diaz on 11-21-2024 Total Iron Binding Capacity 304 ug/dL 250-450 [facility] Eosinophil percentageOrdered By: Geeta Diaz on 11-21-2024 Eosinophils/100 WBC (Bld) 1.8 % 0-5 [facility] Erythrocyte distribution wid th (RBC) [Ratio]Ordered By: Geeta Diaz on 11-21-2024 Erythrocyte distribution width (RBC) [Entitic vol] 49.2 fL High 35.1-43.9 [facility] Erythrocyte distribution wid th ratioOrdered By: Geetaemma Diaz on 11-21-2024 Erythrocyte distribution width (RBC) [Ratio] 13.7 % 11.6-14.6 [facility] Erythrocyte distribution wid th standard deviationOrdered By: Geeta Diaz on 11-21-2024 Erythrocyte distribution width (RBC) [Ratio] 49.2 fl High 35.1-43.9 [facility] Hematocrit Auto (Bld) [Volum e fraction]Ordered By: Geeta Diaz on 11-21-2024 Hematocrit (Bld) [Volume fraction] 32.4 % Low 40-54 [facility] Hemoglobin measurementOrdere d By: Geeta Diaz on 11-21-2024 Hemoglobin (Bld) [Mass/Vol] 10.1 g/dL Low 13.0-16.5 [facility] Immature granulocytes/100 WB C Auto (Bld)Ordered By: Geeta Diaz on 11-21-2024 Immature granulocytes/100 WBC (Bld) 0.300 % 0.0-0.9 [facility] Comment on above: IG% - Immature Granu locytes (promyelocytes, myelocytes and metamyelocytes) > 1% indicates that a LEFT SHIFT is Present. Iron (Unsp spec) [Mass/Mass] Ordered By: Geeta Diaz on 11-21-2024 Iron [Mass/Vol] 45 ug/dL Low 65-175 [facility] Iron measurement (mass/mass) Ordered By: Geeta Diaz on 11-21-2024 Iron (Unsp spec) [Mass/Mass] 45 ug/dL Low 65-175 [facility] Iron saturation [Mass fracti on]Ordered By: Geeta Diaz on 11-21-2024 Iron Saturation 15.0 % 9-55 [facility] Iron+Iron Binding Capacityon 11-21-2024 Iron [Mass/Vol] 45 ug/dL Low 65-175 [facility] Comment on above: Performed By: #### L 503.6030, L100.0100 ####[facility] [address] [place], [address] IRON SATURATION 15.0 Normal 9-55 [facility] Comment on above: Performed By: #### L 503.6030, L100.0100 ####[facility] [address] [place], [address] TIBC 304 ug/dL Normal 250-450 [facility] Comment on above: Performed By: #### L 503.6030, L100.0100 ####[facility] [address] [place], [address] UIBC 259 ug/dL Normal 228-428 [facility] Comment on above: Performed By: #### L 503.6030, L100.0100 ####[facility] [address] [place], [address] Lymphocytes Auto (Unsp spec) [#/Vol]Ordered By: Geeta Diaz on 11-21-2024 Lymphocytes (Bld) [#/Vol] 0.76 10*3/uL Low 0.83-4.51 [facility] Lymphocytes/100 WBC Auto (Un sp spec)Ordered By: Geeta Diaz on 11-21-2024 Lymphocytes/100 WBC (Bld) 19.6 % 19-41 [facility] MCV (mean corpuscular volume ) determinationOrdered By: Geeta Diaz on 11-21-2024 MCV (RBC) [Entitic vol] 98.2 fL High 80-94 [facility] Mean corpuscular hemoglobin (MCH) determinationOrdered By: Geeta Diaz on 11-21-2024 MCH (RBC) [Entitic mass] 30.6 pg 27.0-32.0 [facility] Mean corpuscular hemoglobin concentration (MCHC) determinationOrdered By: Geeta Diaz on 11-21-2024 MCHC (RBC) [Mass/Vol] 31.2 g/dL Low 32-36 [facility] Mean platelet volume determi nationOrdered By: Geeta Diaz on 11-21-2024 Platelet mean volume (Bld) [Entitic vol] 9.9 fL 6.2-12.0 [facility] Monocyte percentageOrdered B y: Geeta Diaz on 11-21-2024 Monocytes/100 WBC (Bld) 8.2 % 0-10 [facility] Neutrophil percentageOrdered By: Geeta Diaz on 11-21-2024 Neutrophils/100 WBC (Bld) 69.3 % 47-70 [facility] No Panel InformationOrdered By: Geeta Diaz on 11-21-2024 Unsaturated Iron Binding Capacity 259 ug/dL 228-428 [facility] 259 ug/dL 228-428 [facility] Nucleated red blood cell per centageOrdered By: Geeta Diaz on 11-21-2024 Nucleated RBC/100 WBC (Bld) [Ratio] 0 % 0-5 [facility] Platelet countOrdered By: Lexa Diaz on 11-21-2024 Platelets (Bld) [#/Vol] 179 10*3/uL 150-450 [facility] RBC Auto (Bld) [#/Vol]Ordere d By: Geeta Diaz on 11-21-2024 RBC (Bld) [#/Vol] 3.30 10*6/uL Low 4.6-6.2 [facility] Serum or plasma iron saturat ion measurement (mass fraction)Ordered By: Geeta Diaz on 11-21-2024 Iron saturation [Mass fraction] 15.0 % 9-55 [facility] White blood cell (WBC) count Ordered By: Geeta Diaz on 11-21-2024 WBC (Bld) [#/Vol] 3.9 10*3/uL Low 4.4-11.0 [facility] Cardiology Visit Reporton Cardiology Visit Report Normal [facility] Absolute lymphocyte countOrd ered By: Jose Enrique Finney on 10-25-2024 Lymphocytes Auto (Unsp spec) [#/Vol] 0.68 10*3/uL Low 0.83-4.51 [facility] Absolute neutrophil countOrd ered By: Jose Enrique Finney on 10-25-2024 Neutrophils (Bld) [#/Vol] 4.2 10*3/uL 2.0-7.7 [facility] Anion gap in Serum or Plasma Ordered By: Jose Enrique Finney on 10-25-2024 Anion gap [Moles/Vol] 13 mmol/L 5-15 [facility] Automated lymphocyte count a s percentage of total leukocytesOrdered By: Jose Enrique Finney on 10-25-2024 Lymphocytes/100 WBC Auto (Unsp spec) 12.6 % Low 19-41 [facility] BUN/creatinine ratioOrdered By: Jose Enrique Finney on 10-25-2024 Urea nitrogen/Creatinine [Mass ratio] 12.3 mg/mg 10- [facility] Basic Metabolic Profile (BMP )on 10-25-2024 BUN/CRE 12.3 RATIO Normal - [facility] Comment on above: Performed By: #### L 500.2500, L503.6030, L100.0100, L503.0106, L503.6550 ####[facility] [address] [place], [address] Calcium [Mass/Vol] 8.1 mg/dL Normal 7.6-11.0 [facility] Comment on above: Performed By: #### L 500.2500, L503.6030, L100.0100, L503.0106, L503.6550 ####[facility] [address] [place], [address] Chloride [Moles/Vol] 100 mmol/L Normal 98-108 [facility] Comment on above: Performed By: #### L 500.2500, L503.6030, L100.0100, L503.0106, L503.6550 ####[facility] [address] [place], [address] CO2 [Moles/Vol] 21.1 mmol/L Normal 21.0-32.0 [facility] Comment on above: Performed By: #### L 500.2500, L503.6030, L100.0100, L503.0106, L503.6550 ####[facility] [address] [place], [address] Creatinine [Mass/Vol] 1.36 mg/dL High 0.70-1.20 [facility] Comment on above: Performed By: #### L 500.2500, L503.6030, L100.0100, L503.0106, L503.6550 ####[facility] [address] [place], [address] GAP 13 Normal 5-15 [facility] Comment on above: Performed By: #### L 500.2500, L503.6030, L100.0100, L503.0106, L503.6550 ####[facility] [address] [place], [address] GFR/1.73 sq M.predicted among non-blacks MDRD (S/P/Bld) [Vol rate/Area] 52 mL/min/{1.73_m2} Low >60 [facility] Comment on above: Result Comment: mL/m in/1.73m2 CKD-EPI Creatinine Equation (2020) Performed By: #### L 500.2500, L503.6030, L100.0100, L503.0106, L503.6550 ####[facility] [address] [place], [address] Glucose [Mass/Vol] 282 mg/dL High 70-99 [facility] Comment on above: Performed By: #### L 500.2500, L503.6030, L100.0100, L503.0106, L503.6550 ####[facility] [address] [place], [address] Potassium [Moles/Vol] 4.5 mmol/L Normal 3.3-5.1 [facility] Comment on above: Performed By: #### L 500.2500, L503.6030, L100.0100, L503.0106, L503.6550 ####[facility] [address] [place], [address] Sodium [Moles/Vol] 134 mmol/L Normal 133-145 [facility] Comment on above: Performed By: #### L 500.2500, L503.6030, L100.0100, L503.0106, L503.6550 ####[facility] [address] [place], [address] Urea nitrogen [Mass/Vol] 17 mg/dL Normal 4-19 [facility] Comment on above: Performed By: #### L 500.2500, L503.6030, L100.0100, L503.0106, L503.6550 ####[facility] [address] [place], [address] Basophil percentageOrdered B y: Jose Enrique Munizchuy on 10-25-2024 Basophils/100 WBC (Bld) 0.6 % 0-1 [facility] CBC W/Diff, Automatedon 09-30 Absolute Lymph 0.68 X10 3/uL Low 0.83-4.51 [facility] Comment on above: Performed By: #### L 500.2500, L503.6030, L100.0100, L503.0106, L503.6550 ####[facility] [address] [place], [address] Absolute Neut 4.2 X10 3/uL Normal 2.0-7.7 [facility] Comment on above: Performed By: #### L 500.2500, L503.6030, L100.0100, L503.0106, L503.6550 ####[facility] [address] [place], [address] Basophils/100 WBC (Bld) 0.6 % Normal 0-1 [facility] Comment on above: Performed By: #### L 500.2500, L503.6030, L100.0100, L503.0106, L503.6550 ####[facility] [address] [place], [address] Eosinophils/100 WBC (Bld) 1.5 % Normal 0-5 [facility] Comment on above: Performed By: #### L 500.2500, L503.6030, L100.0100, L503.0106, L503.6550 ####[facility] [address] [place], [address] Erythrocyte distribution width (RBC) [Ratio] 15.0 % High 11.6-14.6 [facility] Comment on above: Performed By: #### L 500.2500, L503.6030, L100.0100, L503.0106, L503.6550 ####[facility] [address] [place], [address] Hematocrit (Bld) [Volume fraction] 27.9 % Low 40-54 [facility] Comment on above: Performed By: #### L 500.2500, L503.6030, L100.0100, L503.0106, L503.6550 ####[facility] [address] [place], [address] Hemoglobin (Bld) [Mass/Vol] 8.9 g/dL Low 13.0-16.5 [facility] Comment on above: Performed By: #### L 500.2500, L503.6030, L100.0100, L503.0106, L503.6550 ####[facility] [address] [place], [address] IG% 0.200 Normal 0.0-0.9 [facility] Comment on above: Result Comment: IG% - Immature Granulocytes (promyelocytes, myelocytes andmetamyelocytes) > 1% indicates that a LEFT SHIFT is Present. Performed By: #### L 500.2500, L503.6030, L100.0100, L503.0106, L503.6550 ####[facility] [address] [place], [address] Lymphocytes/100 WBC (Bld) 12.6 % Low 19-41 [facility] Comment on above: Performed By: #### L 500.2500, L503.6030, L100.0100, L503.0106, L503.6550 ####[facility] [address] [place], [address] MCH (RBC) [Entitic mass] 31.7 pg Normal 27.0-32.0 [facility] Comment on above: Performed By: #### L 500.2500, L503.6030, L100.0100, L503.0106, L503.6550 ####[facility] [address] [place], [address] MCHC (RBC) [Mass/Vol] 31.9 g/dL Low 32-36 [facility] Comment on above: Performed By: #### L 500.2500, L503.6030, L100.0100, L503.0106, L503.6550 ####[facility] [address] [place], [address] MCV (RBC) [Entitic vol] 99.3 fL High 80-94 [facility] Comment on above: Performed By: #### L 500.2500, L503.6030, L100.0100, L503.0106, L503.6550 ####[facility] [address] [place], [address] Monocytes/100 WBC (Bld) 7.0 % Normal 0-10 [facility] Comment on above: Performed By: #### L 500.2500, L503.6030, L100.0100, L503.0106, L503.6550 ####[facility] [address] [place], [address] Neutrophils/100 WBC (Bld) 78.1 % High 47-70 [facility] Comment on above: Performed By: #### L 500.2500, L503.6030, L100.0100, L503.0106, L503.6550 ####[facility] [address] [place], [address] Nucleated RBC (Bld) [#/Vol] 0 10*3/uL Normal 0-5 [facility] Comment on above: Performed By: #### L 500.2500, L503.6030, L100.0100, L503.0106, L503.6550 ####[facility] [address] [place], [address] Platelet mean volume (Bld) [Entitic vol] 9.3 fL Normal 6.2-12.0 [facility] Comment on above: Performed By: #### L 500.2500, L503.6030, L100.0100, L503.0106, L503.6550 ####[facility] [address] [place], [address] Platelets (Bld) [#/Vol] 229 10*3/uL Normal 150-450 [facility] Comment on above: Performed By: #### L 500.2500, L503.6030, L100.0100, L503.0106, L503.6550 ####[facility] [address] [place], [address] RBC (Bld) [#/Vol] 2.81 10*6/uL Low 4.6-6.2 [facility] Comment on above: Performed By: #### L 500.2500, L503.6030, L100.0100, L503.0106, L503.6550 ####[facility] [address] [place], [place], [id number] RDW SD 53.8 fl High 35.1-43.9 [facility] Comment on above: Performed By: #### L 500.2500, L503.6030, L100.0100, L503.0106, L503.6550 ####[facility] [address] [place], [address] WBC (Bld) [#/Vol] 5.4 10*3/uL Normal 4.4-11.0 [facility] Comment on above: Performed By: #### L 500.2500, L503.6030, L100.0100, L503.0106, L503.6550 ####[facility] [address] [place], [place], [id number] Calculated total iron bindin g capacityOrdered By: Jose Enrique Finney on 10-25-2024 Total Iron Binding Capacity 289 ug/dL 250-450 [facility] Carbon dioxide, total [Moles /volume] in Central venous bloodOrdered By: Jose Enrique Finney on 10-25-2024 CO2 [Moles/Vol] 21.1 mmol/L 21.0-32.0 [facility] Chloride assayOrdered By: Karen Finney on 10-25-2024 Chloride [Moles/Vol] 100 mmol/L 98-108 [facility] Eosinophil percentageOrdered By: Jose Enrique Finney on 10-25-2024 Eosinophils/100 WBC (Bld) 1.5 % 0-5 [facility] Erythrocyte distribution wid th (RBC) [Ratio]Ordered By: Jose Enrique Finney on 10-25-2024 Erythrocyte distribution width (RBC) [Entitic vol] 53.8 fL High 35.1-43.9 [facility] Erythrocyte distribution wid th ratioOrdered By: Jose Enrique Finney on 10-25-2024 Erythrocyte distribution width (RBC) [Ratio] 15.0 % High 11.6-14.6 [facility] Erythrocyte distribution wid th standard deviationOrdered By: Jose Enrique Finney on 10-25-2024 Erythrocyte distribution width (RBC) [Ratio] 53.8 fl High 35.1-43.9 [facility] Ferritinon 10-25-2024 Ferritin [Mass/Vol] 83 ng/mL Normal 37-417 [facility] Comment on above: Performed By: #### L 500.2500, L503.6030, L100.0100, L503.0106, L503.6550 ####[facility] [address] [place], [address] GFR/1.73 sq M.predicted christopher g non-blacks MDRD (S/P/Bld) [Vol rate/Area]Ordered By: Jose Enrique Finney on 10-25-2024 Estimated GFR (MDRD) Non-Af Amer 52 Low >60 [facility] Comment on above: mL/min/1.73m2 CKD-EP I Creatinine Equation (2020) Glomerular filtration rate ( GFR) estimation/1.73 sq m using serum, plasma, or whole bOrdered By: Jose Enrique Finney on 10-25-2024 GFR/1.73 sq M.predicted among non-blacks MDRD (S/P/Bld) [Vol rate/Area] 52 mL/min/{1.73_m2} Low >60 [facility] Comment on above: mL/min/1.73m2 CKD-EP I Creatinine Equation (2020) Hematocrit Auto (Bld) [Volum e fraction]Ordered By: Jose Enrique Finney on 10-25-2024 Hematocrit (Bld) [Volume fraction] 27.9 % Low 40-54 [facility] Hemoglobin measurementOrdere d By: Jose Enrique Finney on 10-25-2024 Hemoglobin (Bld) [Mass/Vol] 8.9 g/dL Low 13.0-16.5 [facility] Immature granulocytes/100 WB C Auto (Bld)Ordered By: Jose Enrique Finney on 10-25-2024 Immature granulocytes/100 WBC (Bld) 0.200 % 0.0-0.9 [facility] Comment on above: IG% - Immature Granu locytes (promyelocytes, myelocytes and metamyelocytes) > 1% indicates that a LEFT SHIFT is Present. Iron (Unsp spec) [Mass/Mass] Ordered By: Jose Enrique Finney on 10-25-2024 Iron [Mass/Vol] 36 ug/dL Low 65-175 [facility] Iron measurement (mass/mass) Ordered By: Jose Enrique Finney on 10-25-2024 Iron (Unsp spec) [Mass/Mass] 36 ug/dL Low 65-175 [facility] Iron saturation [Mass fracti on]Ordered By: Jose Enrique Finney on 10-25-2024 Iron Saturation 12.0 % 9-55 [facility] Iron+Iron Binding Capacityon 10-25-2024 Iron [Mass/Vol] 36 ug/dL Low 65-175 [facility] Comment on above: Performed By: #### L 500.2500, L503.6030, L100.0100, L503.0106, L503.6550 ####[facility] [address] [place], [address] IRON SATURATION 12.0 Normal 9-55 [facility] Comment on above: Performed By: #### L 500.2500, L503.6030, L100.0100, L503.0106, L503.6550 ####[facility] [address] [place], [address] TIBC 289 ug/dL Normal 250-450 [facility] Comment on above: Performed By: #### L 500.2500, L503.6030, L100.0100, L503.0106, L503.6550 ####[facility] [facility] [address] [place], [address] UIBC 253 ug/dL Normal 228-428 [facility] Comment on above: Performed By: #### L 500.2500, L503.6030, L100.0100, L503.0106, L503.6550 ####[facility] [address] [place], [address] L503.0106on 03-27-2025 Cobalamin (Vitamin B12) [Mass/Vol] 375 pg/mL Normal 180-914 [facility] Comment on above: Performed By: #### L 500.2500, L503.6030, L100.0100, L503.0106, L503.6550 ####[facility] [address] [place], [address] Lymphocytes Auto (Unsp spec) [#/Vol]Ordered By: Jose Enrique Finney on 10-25-2024 Lymphocytes (Bld) [#/Vol] 0.68 10*3/uL Low 0.83-4.51 [facility] Lymphocytes/100 WBC Auto (Un sp spec)Ordered By: Jose Enrique Finney on 10-25-2024 Lymphocytes/100 WBC (Bld) 12.6 % Low 19-41 [facility] MCV (mean corpuscular volume ) determinationOrdered By: Jose Enrique Finney on 10-25-2024 MCV (RBC) [Entitic vol] 99.3 fL High 80-94 [facility] Mean corpuscular hemoglobin (MCH) determinationOrdered By: Jose Enrique Finney on 10-25-2024 MCH (RBC) [Entitic mass] 31.7 pg 27.0-32.0 [facility] Mean corpuscular hemoglobin concentration (MCHC) determinationOrdered By: Jose Enrique Finney on 10-25-2024 MCHC (RBC) [Mass/Vol] 31.9 g/dL Low 32-36 [facility] Mean platelet volume determi nationOrdered By: Jose Enrique Finney on 10-25-2024 Platelet mean volume (Bld) [Entitic vol] 9.3 fL 6.2-12.0 [facility] Monocyte percentageOrdered B y: Jose Enrique Finney on 10-25-2024 Monocytes/100 WBC (Bld) 7.0 % 0-10 [facility] Neutrophil percentageOrdered By: Jose Enrique Finney on 10-25-2024 Neutrophils/100 WBC (Bld) 78.1 % High 47-70 [facility] No Panel InformationOrdered By: Jose Enrique Finney on 10-25-2024 Unsaturated Iron Binding Capacity 253 ug/dL 228-428 [facility] 253 ug/dL 228-428 [facility] Nucleated red blood cell per centageOrdered By: Jose Enrique Finney on 10-25-2024 Nucleated RBC/100 WBC (Bld) [Ratio] 0 % 0-5 [facility] Platelet countOrdered By: Karen Finney on 10-25-2024 Platelets (Bld) [#/Vol] 229 10*3/uL 150-450 [facility] Potassium (Unsp spec) [Mass/ Vol]Ordered By: Jose Enrique Finney on 10-25-2024 Potassium [Moles/Vol] 4.5 mmol/L 3.3-5.1 [facility] Potassium measurement (mass/ volume)Ordered By: Jose Enrique Finney on 10-25-2024 Potassium (Unsp spec) [Mass/Vol] 4.5 mmol/L 3.3-5.1 [facility] RBC Auto (Bld) [#/Vol]Ordere d By: Jose Enrique Finney on 10-25-2024 RBC (Bld) [#/Vol] 2.81 10*6/uL Low 4.6-6.2 [facility] Serum creatinine measurement (mass/volume)Ordered By: Jose Enrique Finney on 10-25-2024 Creatinine [Mass/Vol] 1.36 mg/dL High 0.70-1.20 [facility] Serum glucose measurement (m ass/volume)Ordered By: Jose Enrique Finney on 10-25-2024 Glucose [Mass/Vol] 282 mg/dL High 70-99 [facility] Serum or plasma calcium jasno urement (mass/volume)Ordered By: Jose Enrique Finney on 10-25-2024 Calcium [Mass/Vol] 8.1 mg/dL 7.6-11.0 [facility] Serum or plasma ferritin sergo surement (mass/volume)Ordered By: Jose Enrique Finney on 10-25-2024 Ferritin [Mass/Vol] 83 ng/mL 37-417 [facility] Serum or plasma iron saturat ion measurement (mass fraction)Ordered By: Jose Enrique Finney on 10-25-2024 Iron saturation [Mass fraction] 12.0 % 9-55 [facility] Serum or plasma urea nitroge n measurement (mass/volume)Ordered By: Jose Enrique Finney on 10-25-2024 Urea nitrogen [Mass/Vol] 17 mg/dL - [facility] Sodium levelOrdered By: Jose Enrique Finney on 10-25-2024 Sodium [Moles/Vol] 134 mmol/L 133-145 [facility] Vitamin B12 ser/plasOrdered By: Jose Enrique Finney on 10-25-2024 Cobalamin (Vitamin B12) [Mass/Vol] 375 pg/mL 180-914 [facility] White blood cell (WBC) count Ordered By: Jose Enrique Finney on 10-25-2024 WBC (Bld) [#/Vol] 5.4 10*3/uL 4.4-11.0 [facility] Gastroenterology Visit Repor ton 10-17-2024 Gastroenterology Visit Report Normal [facility] Absolute lymphocyte countOrd ered By: Jose Enrique Finney on 10-16-2024 Lymphocytes Auto (Unsp spec) [#/Vol] 0.93 10*3/uL 0.83-4.51 [facility] Absolute neutrophil countOrd ered By: Jose Enrique Finney on 10-16-2024 Neutrophils (Bld) [#/Vol] 4.4 10*3/uL 2.0-7.7 [facility] Automated lymphocyte count a s percentage of total leukocytesOrdered By: Jose Enrique Finney on 10-16-2024 Lymphocytes/100 WBC Auto (Unsp spec) 15.2 % Low [facility] Basophil percentageOrdered B y: Jose Enrique Finney on 10-16-2024 Basophils/100 WBC (Bld) 0.5 % 0- [facility] CBC W/Diff, Automatedon 09-29 Absolute Lymph 0.93 X10 3/uL Normal 0.83-4.51 [facility] Comment on above: Order Comment: Order Date: 10/16/24Order Info: 0184-1 - CBCD Performed By: #### L 100.0100 ####[facility] [address] [place], [address] Absolute Neut 4.4 X10 3/uL Normal 2.0-7.7 [facility] Comment on above: Order Comment: Order Date: 10/16/24Order Info: 0184-1 - CBCD Performed By: #### L 100.0100 ####[facility] [address] [place], [address] Basophils/100 WBC (Bld) 0.5 % Normal 0-1 [facility] Comment on above: Order Comment: Order Date: 10/16/24Order Info: 0184-1 - CBCD Performed By: #### L 100.0100 ####[facility] [address] [place], [address] Eosinophils/100 WBC (Bld) 1.5 % Normal 0-5 [facility] Comment on above: Order Comment: Order Date: 10/16/24Order Info: 0184-1 - CBCD Performed By: #### L 100.0100 ####[facility] [address] [place], [address] Erythrocyte distribution width (RBC) [Ratio] 14.6 % Normal 11.6-14.6 [facility] Comment on above: Order Comment: Order Date: 10/16/24Order Info: 0184-1 - CBCD Performed By: #### L 100.0100 ####[facility] [address] [place], [address] Hematocrit (Bld) [Volume fraction] 25.6 % Low 40-54 [facility] Comment on above: Order Comment: Order Date: 10/16/24Order Info: 0184-1 - CBCD Performed By: #### L 100.0100 ####[facility] [address] [place], [address] Hemoglobin (Bld) [Mass/Vol] 8.3 g/dL Low 13.0-16.5 [facility] Comment on above: Order Comment: Order Date: 10/16/24Order Info: 0184-1 - CBCD Performed By: #### L 100.0100 ####[facility] [address] [place], [address] IG% 0.500 Normal 0.0-0.9 [facility] Comment on above: Order Comment: Order Date: 10/16/24Order Info: 0184-1 - CBCD Result Comment: IG% - Immature Granulocytes (promyelocytes, myelocytes andmetamyelocytes) > 1% indicates that a LEFT SHIFT is Present. Performed By: #### L 100.0100 ####[facility] [address] [place], [address] Lymphocytes/100 WBC (Bld) 15.2 % Low 19-41 [facility] Comment on above: Order Comment: Order Date: 10/16/24Order Info: 0184- - CBCD Performed By: #### L 100.0100 ####[facility] [address] [place], [address] MCH (RBC) [Entitic mass] 31.6 pg Normal 27.0-32.0 [facility] Comment on above: Order Comment: Order Date: 10/16/24Order Info: 0184-1 - CBCD Performed By: #### L 100.0100 ####[facility] [address] [place], [address] MCHC (RBC) [Mass/Vol] 32.4 g/dL Normal 32-36 [facility] Comment on above: Order Comment: Order Date: 10/16/24Order Info: 0184-1 - CBCD Performed By: #### L 100.0100 ####[facility] [address] [place], [address] MCV (RBC) [Entitic vol] 97.3 fL High 80-94 [facility] Comment on above: Order Comment: Order Date: 10/16/24Order Info: 0184-1 - CBCD Performed By: #### L 100.0100 ####[facility] [address] [place], [address] Monocytes/100 WBC (Bld) 9.8 % Normal 0-10 [facility] Comment on above: Order Comment: Order Date: 10/16/24Order Info: 0184-1 - CBCD Performed By: #### L 100.0100 ####[facility] [address] [place], [address] Neutrophils/100 WBC (Bld) 72.5 % High 47-70 [facility] Comment on above: Order Comment: Order Date: 10/16/24Order Info: 0184-1 - CBCD Performed By: #### L 100.0100 ####[facility] [address] [place], [address] Nucleated RBC (Bld) [#/Vol] 0 10*3/uL Normal 0-5 [facility] Comment on above: Order Comment: Order Date: 10/16/24Order Info: 4-1 - CBCD Performed By: #### L 100.0100 ####[facility] [address] [place], [address] Platelet mean volume (Bld) [Entitic vol] 9.8 fL Normal 6.2-12.0 [facility] Comment on above: Order Comment: Order Date: 10/16/24Order Info: 4-1 - CBCD Performed By: #### L 100.0100 ####[facility] [address] [place], [address] Platelets (Bld) [#/Vol] 189 10*3/uL Normal 150-450 [facility] Comment on above: Order Comment: Order Date: 10/16/24Order Info: 0184-1 - CBCD Performed By: #### L 100.0100 ####[facility] [address] [place], [address] RBC (Bld) [#/Vol] 2.63 10*6/uL Low 4.6-6.2 [facility] Comment on above: Order Comment: Order Date: 10/16/24Order Info: 0184-1 - CBCD Performed By: #### L 100.0100 ####[facility] [address] [place], [address] RDW SD 49.1 fl High 35.1-43.9 [facility] Comment on above: Order Comment: Order Date: 10/16/24Order Info: 018-1 - CBCD Performed By: #### L 100.0100 ####[facility] [address] [place], [address] WBC (Bld) [#/Vol] 6.1 10*3/uL Normal 4.4-11.0 [facility] Comment on above: Order Comment: Order Date: 10/16/24Order Info: 018- - CBCD Performed By: #### L 100.0100 ####[facility] [address] [place], [address] Eosinophil percentageOrdered By: Jose Enrique Finney on 10-16-2024 Eosinophils/100 WBC (Bld) 1.5 % 0-5 [facility] Erythrocyte distribution wid th ratioOrdered By: Jose Enrique Finney on 10-16-2024 Erythrocyte distribution width (RBC) [Ratio] 14.6 % 11.6-14.6 [facility] Erythrocyte distribution wid th standard deviationOrdered By: Jose Enrique Finney on 10-16-2024 Erythrocyte distribution width (RBC) [Entitic vol] 49.1 fL High 35.1-43.9 [facility] Erythrocyte distribution width (RBC) [Ratio] 49.1 fl High 35.1-43.9 [facility] Hematocrit Auto (Bld) [Volum e fraction]Ordered By: Jose Enrique Finney on 10-16-2024 Hematocrit (Bld) [Volume fraction] 25.6 % Low 40-54 [facility] Hemoglobin measurementOrdere d By: Jose Enrique Finney on 10-16-2024 Hemoglobin (Bld) [Mass/Vol] 8.3 g/dL Low 13.0-16.5 [facility] Immature granulocytes/100 WB C Auto (Bld)Ordered By: Jose Enrique Finney on 10-16-2024 Immature granulocytes/100 WBC (Bld) 0.500 % 0.0-0.9 [facility] Comment on above: IG% - Immature Granu locytes (promyelocytes, myelocytes and metamyelocytes) > 1% indicates that a LEFT SHIFT is Present. Lymphocytes Auto (Unsp spec) [#/Vol]Ordered By: Jose Enrique Finney on 10-16-2024 Lymphocytes (Bld) [#/Vol] 0.93 10*3/uL 0.83-4.51 [facility] Lymphocytes/100 WBC Auto (Un sp spec)Ordered By: Jose Enrique Finney on 10-16-2024 Lymphocytes/100 WBC (Bld) 15.2 % Low 19-41 [facility] MCV (mean corpuscular volume ) determinationOrdered By: Jose Enrique Finney on 10-16-2024 MCV (RBC) [Entitic vol] 97.3 fL High 80-94 [facility] Mean corpuscular hemoglobin (MCH) determinationOrdered By: Jose Enrique Finney on 10-16-2024 MCH (RBC) [Entitic mass] 31.6 pg 27.0-32.0 [facility] Mean corpuscular hemoglobin concentration (MCHC) determinationOrdered By: Jose Enrique Finney on 10-16-2024 MCHC (RBC) [Mass/Vol] 32.4 g/dL 32-36 [facility] Mean platelet volume determi nationOrdered By: Jose Enrique Finney on 10-16-2024 Platelet mean volume (Bld) [Entitic vol] 9.8 fL 6.2-12.0 [facility] Monocyte percentageOrdered B y: Jose Enrique Finney on 10-16-2024 Monocytes/100 WBC (Bld) 9.8 % 0-10 [facility] Neutrophil percentageOrdered By: Jose Enrique Finney on 10-16-2024 Neutrophils/100 WBC (Bld) 72.5 % High 47-70 [facility] Nucleated red blood cell per centageOrdered By: Jose Enrique Finney on 10-16-2024 Nucleated RBC/100 WBC (Bld) [Ratio] 0 % 0-5 [facility] Platelet countOrdered By: Karen Finney on 10-16-2024 Platelets (Bld) [#/Vol] 189 10*3/uL 150-450 [facility] RBC Auto (Bld) [#/Vol]Ordere d By: Jose Enrique Finney on 10-16-2024 RBC (Bld) [#/Vol] 2.63 10*6/uL Low 4.6-6.2 [facility] White blood cell (WBC) count Ordered By: Jose Enrique Finney on 10-16-2024 WBC (Bld) [#/Vol] 6.1 10*3/uL 4.4-11.0 [facility] Absolute lymphocyte countOrd ered By: García Cabezas on 10-13-2024 Lymphocytes Auto (Unsp spec) [#/Vol] 0.91 10*3/uL 0.83-4.51 [facility] Absolute neutrophil countOrd ered By: García Cabezas on 10-13-2024 Neutrophils (Bld) [#/Vol] 5.0 10*3/uL 2.0-7.7 [facility] Anion gap in Serum or Plasma Ordered By: García Cabezas on 10-13-2024 Anion gap [Moles/Vol] 11 mmol/L 12-13 [facility] Automated lymphocyte count a s percentage of total leukocytesOrdered By: García Cabezas on 10-13-2024 Lymphocytes/100 WBC Auto (Unsp spec) 13.7 % Low 19-41 [facility] BUN/creatinine ratioOrdered By: García Cabezas on 10-13-2024 Urea nitrogen/Creatinine [Mass ratio] 27.7 mg/mg High 10-20 [facility] Basic Metabolic Profile (BMP )on 10-13-2024 BUN/CRE 27.7 RATIO High 10- [facility] Comment on above: Performed By: #### L 100.0100, L500.2500 ####[facility] [address] [place], [address] Calcium [Mass/Vol] 8.3 mg/dL Normal 7.6-11.0 [facility] Comment on above: Performed By: #### L 100.0100, L500.2500 ####[facility] [address] [place], [address] Chloride [Moles/Vol] 108 mmol/L Normal 98-108 [facility] Comment on above: Performed By: #### L 100.0100, L500.2500 ####[facility] [address] [place], [address] CO2 [Moles/Vol] 23.7 mmol/L Normal 21.0-32.0 [facility] Comment on above: Performed By: #### L 100.0100, L500.2500 ####[facility] [address] [place], [address] Creatinine [Mass/Vol] 1.87 mg/dL High 0.70-1.20 [facility] Comment on above: Performed By: #### L 100.0100, L500.2500 ####[facility] [address] [place], [address] ECRCL 27.94 ml/min Low 50-250 [facility] Comment on above: Performed By: #### L 100.0100, L500.2500 ####[facility] [address] [place], [address] GAP 11 Normal 5-15 [facility] Comment on above: Performed By: #### L 100.0100, L500.2500 ####[facility] [address] [place], [address] GFR/1.73 sq M.predicted among non-blacks MDRD (S/P/Bld) [Vol rate/Area] 35 mL/min/{1.73_m2} Low >60 [facility] Comment on above: Result Comment: mL/m in/1.73m2 CKD-EPI Creatinine Equation (2020) Performed By: #### L 100.0100, L500.2500 ####[facility] [address] [place], [address] Glucose [Mass/Vol] 155 mg/dL High 70-99 [facility] Comment on above: Performed By: #### L 100.0100, L500.2500 ####[facility] [address] [place], [address] Potassium [Moles/Vol] 3.4 mmol/L Normal 3.3-5.1 [facility] Comment on above: Performed By: #### L 100.0100, L500.2500 ####[facility] [address] [place], [address] Sodium [Moles/Vol] 143 mmol/L Normal 133-145 [facility] Comment on above: Performed By: #### L 100.0100, L500.2500 ####[facility] [address] [place], [address] Urea nitrogen [Mass/Vol] 52 mg/dL High 4-19 [facility] Comment on above: Performed By: #### L 100.0100, L500.2500 ####[facility] [address] [place], [address] Basophil percentageOrdered B y: García Cabezas on 10-13-2024 Basophils/100 WBC (Bld) 0.6 % 0-1 [facility] Bedside Glucoseon 10-13-2024 FINGERSTICK GLU 350 mg/dL High 74-106 [facility] Comment on above: Result Comment: Dr Avelino HernándezMANAGEMENT OF PATIENT CARE PER NURSING PROTOCOL Performed By: #### L 501.080 ####[facility] [address] [place], [address] FINGERSTICK GLU 144 mg/dL High 74-106 [facility] Comment on above: Result Comment: IZABELLA KAPOORENT OF PATIENT CARE PER NURSING PROTOCOL Performed By: #### L 501.080 ####[facility] [address] [place], [address] FINGERSTICK GLU 150 mg/dL High 74-106 [facility] Comment on above: Result Comment: IZABELLA THOMPSON OF PATIENT CARE PER NURSING PROTOCOL Performed By: #### L 501.080 ####[facility] [address] [place], [address] CBC W/Diff, Automatedon 03- Absolute Lymph 0.91 X10 3/uL Normal 0.83-4.51 [facility] Comment on above: Performed By: #### L 100.0100, L500.2500 ####[facility] [address] [place], [address] Absolute Neut 5.0 X10 3/uL Normal 2.0-7.7 [facility] Comment on above: Performed By: #### L 100.0100, L500.2500 ####[facility] [address] [place], [address] Basophils/100 WBC (Bld) 0.6 % Normal 0-1 [facility] Comment on above: Performed By: #### L 100.0100, L500.2500 ####[facility] [address] [place], [address] Eosinophils/100 WBC (Bld) 2.1 % Normal 0-5 [facility] Comment on above: Performed By: #### L 100.0100, L500.2500 ####[facility] [address] [place], [address] Erythrocyte distribution width (RBC) [Ratio] 14.4 % Normal 11.6-14.6 [facility] Comment on above: Performed By: #### L 100.0100, L500.2500 ####[facility] [address] [place], [address] Hematocrit (Bld) [Volume fraction] 26.6 % Low 40-54 [facility] Comment on above: Performed By: #### L 100.0100, L500.2500 ####[facility] [address] [place], [address] Hemoglobin (Bld) [Mass/Vol] 8.7 g/dL Low 13.0-16.5 [facility] Comment on above: Performed By: #### L 100.0100, L500.2500 ####[facility] [address] [place], [address] IG% 0.300 Normal 0.0-0.9 [facility] Comment on above: Result Comment: IG% - Immature Granulocytes (promyelocytes, myelocytes andmetamyelocytes) > 1% indicates that a LEFT SHIFT is Present. Performed By: #### L 100.0100, L500.2500 ####[facility] [address] [place], [address] Lymphocytes/100 WBC (Bld) 13.7 % Low 19-41 [facility] Comment on above: Performed By: #### L 100.0100, L500.2500 ####[facility] [address] [place], [address] MCH (RBC) [Entitic mass] 31.5 pg Normal 27.0-32.0 [facility] Comment on above: Performed By: #### L 100.0100, L500.2500 ####[facility] [address] [place], [address] MCHC (RBC) [Mass/Vol] 32.7 g/dL Normal 32-36 [facility] Comment on above: Performed By: #### L 100.0100, L500.2500 ####[facility] [address] [place], [address] MCV (RBC) [Entitic vol] 96.4 fL High 80-94 [facility] Comment on above: Performed By: #### L 100.0100, L500.2500 ####[facility] [address] [place], [address] Monocytes/100 WBC (Bld) 8.0 % Normal 0-10 [facility] Comment on above: Performed By: #### L 100.0100, L500.2500 ####[facility] [address] [place], [address] Neutrophils/100 WBC (Bld) 75.3 % High 47-70 [facility] Comment on above: Performed By: #### L 100.0100, L500.2500 ####[facility] [address] [place], [address] Nucleated RBC (Bld) [#/Vol] 0 10*3/uL Normal 0-5 [facility] Comment on above: Performed By: #### L 100.0100, L500.2500 ####[facility] [address] [place], [address] Platelet mean volume (Bld) [Entitic vol] 10.1 fL Normal 6.2-12.0 [facility] Comment on above: Performed By: #### L 100.0100, L500.2500 ####[facility] [address] [place], [address] Platelets (Bld) [#/Vol] 160 10*3/uL Normal 150-450 [facility] Comment on above: Performed By: #### L 100.0100, L500.2500 ####[facility] [address] [place], [address] RBC (Bld) [#/Vol] 2.76 10*6/uL Low 4.6-6.2 [facility] Comment on above: Performed By: #### L 100.0100, L500.2500 ####[facility] [address] [place], [address] RDW SD 49.7 fl High 35.1-43.9 [facility] Comment on above: Performed By: #### L 100.0100, L500.2500 ####[facility] [address] [place], [place], [address] WBC (Bld) [#/Vol] 6.6 10*3/uL Normal 4.4-11.0 [facility] Comment on above: Performed By: #### L 100.0100, L500.2500 ####[facility] [address] [facility] [address] [place], [place], [id number] Carbon dioxide, total [Moles /volume] in Central venous bloodOrdered By: García Cabezas on 10-13-2024 CO2 [Moles/Vol] 23.7 mmol/L 21.0-32.0 [facility] Chloride assayOrdered By: Sugey Cabezas on 10-13-2024 Chloride [Moles/Vol] 108 mmol/L 98-108 [facility] Discharge Instructionon 09-29 Discharge Instruction Normal [facility] Eosinophil percentageOrdered By: García Cabezas on 10-13-2024 Eosinophils/100 WBC (Bld) 2.1 % 0-5 [facility] Erythrocyte distribution wid th ratioOrdered By: García Cabezas on 10-13-2024 Erythrocyte distribution width (RBC) [Ratio] 14.4 % 11.6-14.6 [facility] Erythrocyte distribution wid th standard deviationOrdered By: García Cabezas on 10-13-2024 Erythrocyte distribution width (RBC) [Entitic vol] 49.7 fL High 35.1-43.9 [facility] Erythrocyte distribution width (RBC) [Ratio] 49.7 fl High 35.1-43.9 [facility] Estimation of creatinine leela aranceOrdered By: García Cabezas on 10-13-2024 Estimated Creatinine Clearance Calc 27.94 ml/min Low 50-250 [facility] GFR/1.73 sq M.predicted christopher g non-blacks MDRD (S/P/Bld) [Vol rate/Area]Ordered By: García Cabezas on 10-13-2024 Estimated GFR (MDRD) Non-Af Amer 35 Low >60 [facility] Comment on above: mL/min/1.73m2 CKD-EP I Creatinine Equation (2020) Glomerular filtration rate ( GFR) estimation/1.73 sq m using serum, plasma, or whole bOrdered By: García Cabezas on 10-13-2024 GFR/1.73 sq M.predicted among non-blacks MDRD (S/P/Bld) [Vol rate/Area] 35 mL/min/{1.73_m2} Low >60 [facility] Glucose measurement at [facility] deOrdered By: García Cabezas on 10-13-2024 Bedside Glucose (Misc Panel) 350 mg/dL High 74-106 [facility] Comment on above: Dr [place]ta Angeles NAGEMENT OF PATIENT CARE PER NURSING PROTOCOL Glucose [Mass/Vol] 350 mg/dL High 74-106 [facility] Hematocrit Auto (Bld) [Volum e fraction]Ordered By: García Cabezas on 10-13-2024 Hematocrit (Bld) [Volume fraction] 26.6 % Low 40-54 [facility] Hemoglobin measurementOrdere d By: García Cabezas on 10-13-2024 Hemoglobin (Bld) [Mass/Vol] 8.7 g/dL Low 13.0-16.5 [facility] Immature granulocytes/100 WB C Auto (Bld)Ordered By: García Cabezas on 10-13-2024 Immature granulocytes/100 WBC (Bld) 0.300 % 0.0-0.9 [facility] Comment on above: IG% - Immature Granu locytes (promyelocytes, myelocytes and metamyelocytes) > 1% indicates that a LEFT SHIFT is Present. Lymphocytes Auto (Unsp spec) [#/Vol]Ordered By: García Cabezas on 10-13-2024 Lymphocytes (Bld) [#/Vol] 0.91 10*3/uL 0.83-4.51 [facility] Lymphocytes/100 WBC Auto (Un sp spec)Ordered By: García Cabezas on 10-13-2024 Lymphocytes/100 WBC (Bld) 13.7 % Low 19-41 [facility] MCV (mean corpuscular volume ) determinationOrdered By: García Cabezas on 10-13-2024 MCV (RBC) [Entitic vol] 96.4 fL High 80-94 [facility] Mean corpuscular hemoglobin (MCH) determinationOrdered By: García Cabezas on 10-13-2024 MCH (RBC) [Entitic mass] 31.5 pg 27.0-32.0 [facility] Mean corpuscular hemoglobin concentration (MCHC) determinationOrdered By: García Cabezas on 10-13-2024 MCHC (RBC) [Mass/Vol] 32.7 g/dL 32-36 [facility] Mean platelet volume determi nationOrdered By: García Cabezas on 10-13-2024 Platelet mean volume (Bld) [Entitic vol] 10.1 fL 6.2-12.0 [facility] Monocyte percentageOrdered B y: García Cabezas on 10-13-2024 Monocytes/100 WBC (Bld) 8.0 % 0-10 [facility] Neutrophil percentageOrdered By: García Cabezas on 10-13-2024 Neutrophils/100 WBC (Bld) 75.3 % High 47-70 [facility] Nucleated red blood cell per centageOrdered By: García Cabezas on 10-13-2024 Nucleated RBC/100 WBC (Bld) [Ratio] 0 % 0-5 [facility] Platelet countOrdered By: Sugey Cabezas on 10-13-2024 Platelets (Bld) [#/Vol] 160 10*3/uL 150-450 [facility] Potassium (Unsp spec) [Mass/ Vol]Ordered By: García Cabezas on 10-13-2024 Potassium [Moles/Vol] 3.4 mmol/L 3.3-5.1 [facility] Potassium measurement (mass/ volume)Ordered By: García Cabezas on 10-13-2024 Potassium (Unsp spec) [Mass/Vol] 3.4 mmol/L 3.3-5.1 [facility] RBC Auto (Bld) [#/Vol]Ordere d By: García Cabezas on 10-13-2024 RBC (Bld) [#/Vol] 2.76 10*6/uL Low 4.6-6.2 [facility] Serum creatinine measurement (mass/volume)Ordered By: García Cabezas on 10-13-2024 Creatinine [Mass/Vol] 1.87 mg/dL High 0.70-1.20 [facility] Serum glucose measurement (m ass/volume)Ordered By: García Cabezas on 10-13-2024 Glucose [Mass/Vol] 155 mg/dL High 70-99 [facility] Serum or plasma calcium jason urement (mass/volume)Ordered By: García Cabezas on 10-13-2024 Calcium [Mass/Vol] 8.3 mg/dL 7.6-11.0 [facility] Serum or plasma urea nitroge n measurement (mass/volume)Ordered By: García Cabezas on 10-13-2024 Urea nitrogen [Mass/Vol] 52 mg/dL High 4-19 [facility] Sodium levelOrdered By: Ted Cabezas on 10-13-2024 Sodium [Moles/Vol] 143 mmol/L 133-145 [facility] White blood cell (WBC) count Ordered By: García Cabezas on 10-13-2024 WBC (Bld) [#/Vol] 6.6 10*3/uL 4.4-11.0 [facility] Bedside Glucoseon 10-12-2024 FINGERSTICK GLU 174 mg/dL High 74-106 [facility] Comment on above: Result Comment: IZABELLA GEMENT OF PATIENT CARE PER NURSING PROTOCOL Performed By: #### L 501.080 ####[facility] [address] [facility] [phone] FINGERSTICK GLU 151 mg/dL High 74-106 [facility] Comment on above: Result Comment: IZABELLA GEMENT OF PATIENT CARE PER NURSING PROTOCOL Performed By: #### L 501.080 ####[facility] [address] [place], [address] FINGERSTICK GLU 252 mg/dL High 74-106 [facility] Comment on above: Result Comment: IZABELLA GEMENT OF PATIENT CARE PER NURSING PROTOCOL Performed By: #### L 501.080 ####[facility] [address] [place], [address] Bilirubin, totalOrdered By: Germán Lee on 10-12-2024 Bilirubin [Mass/Vol] 0.69 mg/dL 0.00-1.30 [facility] CBC W/Diff, Automatedon 09-29 Absolute Lymph 1.45 X10 3/uL Normal 0.83-4.51 [facility] Comment on above: Performed By: #### L 501.9520, L500.4050, L100.0100 ####[facility] [address] [place], [address] Absolute Neut 6.9 X10 3/uL Normal 2.0-7.7 [facility] Comment on above: Performed By: #### L 501.9520, L500.4050, L100.0100 ####[facility] [address] [place], [address] Basophils/100 WBC (Bld) 0.3 % Normal 0-1 [facility] Comment on above: Performed By: #### L 501.9520, L500.4050, L100.0100 ####[facility] [address] [place], [address] Eosinophils/100 WBC (Bld) 0.1 % Normal 0-5 [facility] Comment on above: Performed By: #### L 501.9520, L500.4050, L100.0100 ####[facility] [address] [place], [address] Erythrocyte distribution width (RBC) [Ratio] 13.4 % Normal 11.6-14.6 [facility] Comment on above: Performed By: #### L 501.9520, L500.4050, L100.0100 ####[facility] [address] [place], [address] Hematocrit (Bld) [Volume fraction] 26.2 % Low 40-54 [facility] Comment on above: Performed By: #### L 501.9520, L500.4050, L100.0100 ####[facility] [address] [place], [address] Hemoglobin (Bld) [Mass/Vol] 8.9 g/dL Low 13.0-16.5 [facility] Comment on above: Performed By: #### L 501.9520, L500.4050, L100.0100 ####[facility] [address] [place], [address] IG% 0.300 Normal 0.0-0.9 [facility] Comment on above: Result Comment: IG% - Immature Granulocytes (promyelocytes, myelocytes andmetamyelocytes) > 1% indicates that a LEFT SHIFT is Present. Performed By: #### L 501.9520, L500.4050, L100.0100 ####[facility] [address] [place], [address] Lymphocytes/100 WBC (Bld) 15.6 % Low 19-41 [facility] Comment on above: Performed By: #### L 501.9520, L500.4050, L100.0100 ####[facility] [address] [place], [address] MCH (RBC) [Entitic mass] 31.7 pg Normal 27.0-32.0 [facility] Comment on above: Performed By: #### L 501.9520, L500.4050, L100.0100 ####[facility] [address] [place], [address] MCHC (RBC) [Mass/Vol] 34.0 g/dL Normal 32-36 [facility] Comment on above: Performed By: #### L 501.9520, L500.4050, L100.0100 ####[facility] [address] [place], [address] MCV (RBC) [Entitic vol] 93.2 fL Normal 80-94 [facility] Comment on above: Performed By: #### L 501.9520, L500.4050, L100.0100 ####[facility] [address] [place], [address] Monocytes/100 WBC (Bld) 9.3 % Normal 0-10 [facility] Comment on above: Performed By: #### L 501.9520, L500.4050, L100.0100 ####[facility] [address] [place], [address] Neutrophils/100 WBC (Bld) 74.4 % High 47-70 [facility] Comment on above: Performed By: #### L 501.9520, L500.4050, L100.0100 ####[facility] [address] [place], [address] Nucleated RBC (Bld) [#/Vol] 0 10*3/uL Normal 0-5 [facility] Comment on above: Performed By: #### L 501.9520, L500.4050, L100.0100 ####[facility] [address] [place], [address] Platelet mean volume (Bld) [Entitic vol] 10.6 fL Normal 6.2-12.0 [facility] Comment on above: Performed By: #### L 501.9520, L500.4050, L100.0100 ####[facility] [address] [place], [address] Platelets (Bld) [#/Vol] 162 10*3/uL Normal 150-450 [facility] Comment on above: Performed By: #### L 501.9520, L500.4050, L100.0100 ####[facility] [address] [place], [address] RBC (Bld) [#/Vol] 2.81 10*6/uL Low 4.6-6.2 [facility] Comment on above: Performed By: #### L 501.9520, L500.4050, L100.0100 ####[facility] [address] [place], [address] RDW SD 45.8 fl High 35.1-43.9 [facility] Comment on above: Performed By: #### L 501.9520, L500.4050, L100.0100 ####[facility] [address] [place], [address] WBC (Bld) [#/Vol] 9.3 10*3/uL Normal 4.4-11.0 [facility] Comment on above: Performed By: #### L 501.9520, L500.4050, L100.0100 ####[facility] [address] [place], [address] Comprehensive Metabolic Prof ilon 10-12-2024 Albumin [Mass/Vol] 3.2 g/dL Low 3.4-4.8 [facility] Comment on above: Performed By: #### L 501.9520, L500.4050, L100.0100 ####[facility] [address] [place], [address] Albumin/Globulin [Mass ratio] 1.5 {ratio} Normal 0.9-2.4 [facility] Comment on above: Performed By: #### L 501.9520, L500.4050, L100.0100 ####[facility] [address] [place], [address] ALK PHOS 76 U/L Normal 40-129 [facility] Comment on above: Performed By: #### L 501.9520, L500.4050, L100.0100 ####[facility] [address] [place], [address] ALT [Catalytic activity/Vol] 34 U/L Normal <=46 [facility] Comment on above: Performed By: #### L 501.9520, L500.4050, L100.0100 ####[facility] [address] [place], [address] AST [Catalytic activity/Vol] 31 U/L Normal <=37 [facility] Comment on above: Performed By: #### L 501.9520, L500.4050, L100.0100 ####[facility] [address] [place], [address] Bilirubin [Mass/Vol] 0.69 mg/dL Normal 0.00-1.30 [facility] Comment on above: Performed By: #### L 501.9520, L500.4050, L100.0100 ####[facility] [address] [place], [address] BUN/CRE 40.0 RATIO High 10-20 [facility] Comment on above: Performed By: #### L 501.9520, L500.4050, L100.0100 ####[facility] [address] [place], [address] Calcium [Mass/Vol] 8.4 mg/dL Normal 7.6-11.0 [facility] Comment on above: Performed By: #### L 501.9520, L500.4050, L100.0100 ####[facility] [address] [place], [address] Chloride [Moles/Vol] 102 mmol/L Normal 98-108 [facility] Comment on above: Performed By: #### L 501.9520, L500.4050, L100.0100 ####[facility] [address] [place], [address] CO2 [Moles/Vol] 22.8 mmol/L Normal 21.0-32.0 [facility] Comment on above: Performed By: #### L 501.9520, L500.4050, L100.0100 ####[facility] [address] [place], [address] Creatinine [Mass/Vol] 2.04 mg/dL High 0.70-1.20 [facility] Comment on above: Performed By: #### L 501.9520, L500.4050, L100.0100 ####[facility] [address] [place], [address] ECRCL 25.57 ml/min Low 50-250 [facility] Comment on above: Performed By: #### L 501.9520, L500.4050, L100.0100 ####[facility] [address] [place], [address] GAP 12 Normal 5-15 [facility] Comment on above: Performed By: #### L 501.9520, L500.4050, L100.0100 ####[facility] [address] [place], [address] GFR/1.73 sq M.predicted among non-blacks MDRD (S/P/Bld) [Vol rate/Area] 32 mL/min/{1.73_m2} Low >60 [facility] Comment on above: Result Comment: mL/m in/1.73m2 CKD-EPI Creatinine Equation (2020) Performed By: #### L 501.9520, L500.4050, L100.0100 ####[facility] [address] [place], [address] Globulin (S) [Mass/Vol] 2.2 g/dL Normal 2.2-4.2 [facility] Comment on above: Performed By: #### L 501.9520, L500.4050, L100.0100 ####[facility] [address] [place], [address] Glucose [Mass/Vol] 206 mg/dL High 70-99 [facility] Comment on above: Performed By: #### L 501.9520, L500.4050, L100.0100 ####[facility] [address] [place], [address] Potassium [Moles/Vol] 3.3 mmol/L Normal 3.3-5.1 [facility] Comment on above: Performed By: #### L 501.9520, L500.4050, L100.0100 ####[facility] [address] [place], [address] Sodium [Moles/Vol] 137 mmol/L Normal 133-145 [facility] Comment on above: Performed By: #### L 501.9520, L500.4050, L100.0100 ####[facility] [address] [place], [address] T PROT 5.4 g/dL Low 5.9-8.4 [facility] Comment on above: Performed By: #### L 501.9520, L500.4050, L100.0100 ####[facility] [address] [place], [address] Urea nitrogen [Mass/Vol] 82 mg/dL High 4-19 [facility] Comment on above: Performed By: #### L 501.9520, L500.4050, L100.0100 ####[facility] [address] [place], [address] EGD Reporton 10-12-2024 EGD Report Normal [facility] HH, Hemoglobin AND Hematocri ton 10-12-2024 Hematocrit (Bld) [Volume fraction] 27.0 % Low 40-54 [facility] Comment on above: Performed By: #### L 100.0600 ####[facility] [address], [address] Hemoglobin (Bld) [Mass/Vol] 8.9 g/dL Low 13.0-16.5 [facility] Comment on above: Performed By: #### L 100.0600 ####[facility] [address] [place], [address] Hemoglobin A1con 10-12-2024 HbA1c (Bld) [Mass fraction] 9.6 % Normal <=5.6 [facility] Comment on above: Performed By: #### L 501.2300, L501.9985 ####[facility] [address] [place], [address] Hemoglobin A1c percentageOrd ered By: Germán Lee on 10-12-2024 HbA1c (Bld) [Mass fraction] 9.6 % >5.7 [facility] Laboratory - Chemistry and C hemistry - challengeOrdered By: Germán Lee on 10-12-2024 AST [Catalytic activity/Vol] 31 U/L <38 [facility] MR/POSTOP.ANEon 10-12-2024 MR/POSTOP.ANE Normal [facility] MR/[id number] 10-12-2024 MR/POSTOPAN2 Normal [facility] No Panel InformationOrdered By: Germán Lee on 10-12-2024 31 U/L <38 [facility] Phosphoruson 10-12-2024 Phosphate [Mass/Vol] 2.9 mg/dL Normal 2.7-4.5 [facility] Comment on above: Performed By: #### L 501.2300, L501.9985 ####[facility] [address] [place], [address] Serum globulin measurementOr dered By: Germán Lee on 10-12-2024 Globulin (S) [Mass/Vol] 2.2 g/dL 2.2-4.2 [facility] Serum or plasma alanine de la paz otransferase (ALT) measurementOrdered By: Germán Lee on 10-12-2024 ALT [Catalytic activity/Vol] 34 U/L <47 [facility] Serum or plasma albumin jason urement (mass/volume)Ordered By: Germán Lee on 10-12-2024 Albumin [Mass/Vol] 3.2 g/dL Low 3.4-4.8 [facility] Serum or plasma albumin/glob ulin mass ratioOrdered By: Germán Lee on 10-12-2024 Albumin/Globulin [Mass ratio] 1.5 {ratio} 0.9-2.4 [facility] Serum or plasma alkaline ina sphatase measurementOrdered By: Germán Lee on 10-12-2024 ALP [Catalytic activity/Vol] 76 U/L 40-129 [facility] Serum phosphorus measurement Ordered By: Germán Lee on 10-12-2024 Phosphorus Level 2.9 mg/dL 2.7-4.5 [facility] TSH DL <= 0.005 mIU/L QnOrde red By: Germán Lee on 10-12-2024 Thyroid Stimulating Hormone (TSH) 1.950 uIU/mL 0.300-4.20 0 [facility] TSH Qn 1.950 uIU/mL 0.300-4.20 0 [facility] Thyroid Stim Hormone (TSH)on 10-12-2024 TSH 1.950 uIU/mL Normal 0.300-4.20 0 [facility] Comment on above: Performed By: #### L 501.9520, L500.4050, L100.0100 ####[facility] [address] [facility], [place], [id number] Total proteinOrdered By: Sebastian Lee on 10-12-2024 Protein [Mass/Vol] 5.4 g/dL Low 5.9-8.4 [facility] 12 Lead EKGon 10-11-2024 12 Lead EKG Normal [facility] Absolute neutrophil countOrd ered By: Fei Easton on 10-11-2024 Neutrophils (Bld) [#/Vol] 9.9 10*3/uL High 2.0-7.7 [facility] Activated partial thrombopla stin time (aPTT) in platelet poor plasma by coagulation aOrdered By: Fei Easton on 10-11-2024 aPTT Coag (PPP) [Time] 36.8 s High 24.1-36.2 [facility] Anion gap in Serum or Plasma Ordered By: Fei Easton on 10-11-2024 Anion gap [Moles/Vol] 17 mmol/L [facility] Anion gap in Serum or Plasma Ordered By: Jose Enrique Finney on 10-11-2024 Anion gap [Moles/Vol] 16 mmol/L [facility] BUN/creatinine ratioOrdered By: Fei Easton on 10-11-2024 Urea nitrogen/Creatinine [Mass ratio] 37.7 mg/mg High 05-20 [facility] BUN/creatinine ratioOrdered By: Jose Enrique Finney on 10-11-2024 Urea nitrogen/Creatinine [Mass ratio] 40.1 mg/mg [address] [facility] Basic Metabolic Profile (BMP )on 10-11-2024 BUN/CRE 37.[address] [facility] Comment on above: Performed By: #### L 500.2500, L100.0100 ####[facility] [address] [place], [address] Calcium [Mass/Vol] 9.4 mg/dL Normal 7.6-11.0 [facility] Comment on above: Performed By: #### L 500.2500, L100.0100 ####[facility] [address] [place], [address] Chloride [Moles/Vol] 94 mmol/L Low 98-108 [facility] Comment on above: Performed By: #### L 500.2500, L100.0100 ####[facility] [address] [place], [address] CO2 [Moles/Vol] 22.4 mmol/L Normal 21.0-32.0 [facility] Comment on above: Performed By: #### L 500.2500, L100.0100 ####[facility] [address] [place], [address] Creatinine [Mass/Vol] 2.22 mg/dL High 0.70-1.20 [facility] Comment on above: Performed By: #### L 500.2500, L100.0100 ####[facility] [address] [place], [address] ECRCL 23.57 ml/min Low 50-250 [facility] Comment on above: Performed By: #### L 500.2500, L100.0100 ####[facility] [address] [place], [address] GAP 17 High 5-15 [facility] Comment on above: Performed By: #### L 500.2500, L100.0100 ####[facility] [address] [place], [address] GFR/1.73 sq M.predicted among non-blacks MDRD (S/P/Bld) [Vol rate/Area] 29 mL/min/{1.73_m2} Low >60 [facility] Comment on above: Result Comment: mL/m in/1.73m2 CKD-EPI Creatinine Equation (2020) Performed By: #### L 500.2500, L100.0100 ####[facility] [address] [place], [address] Glucose [Mass/Vol] 261 mg/dL High 70-99 [facility] Comment on above: Performed By: #### L 500.2500, L100.0100 ####[facility] [address] [place], [address] Potassium [Moles/Vol] 4.1 mmol/L Normal 3.3-5.1 [facility] Comment on above: Performed By: #### L 500.2500, L100.0100 ####[facility] [address] [place], [address] Sodium [Moles/Vol] 133 mmol/L Normal 133-145 [facility] Comment on above: Performed By: #### L 500.2500, L100.0100 ####[facility] [address] [place], [address] Urea nitrogen [Mass/Vol] 84 mg/dL High 4-19 [facility] Comment on above: Performed By: #### L 500.2500, L100.0100 ####[facility] [address] [place], [address] BUN/CRE 40.1 RATIO High 10-20 [facility] Comment on above: Order Comment: Order Date: 10/11/24Order Info: [id number] - BMPOrder Info: [id number] - MGOrder Info: 3016-3 - TSHOrder Info: [id number] - IBCOrder Info: 2276-4 - FEROrder Info: 3024-7 - T4F Performed By: #### L 501.5200, L500.2500 ####[facility] [address] [place], [address] Calcium [Mass/Vol] 9.5 mg/dL Normal 7.6-11.0 [facility] Comment on above: Order Comment: Order Date: 10/11/24Order Info: 666-1 - BMPOrder Info: [id number] - MGOrder Info: 3016-3 - TSHOrder Info: 13594-3 - IBCOrder Info: 2276-4 - FEROrder Info: 3024-7 - T4F Performed By: #### L 501.5200, L500.2500 ####[facility] [address] [place], [address] Chloride [Moles/Vol] 97 mmol/L Low 98-108 [facility] Comment on above: Order Comment: Order Date: 10/11/24Order Info: 67-1 - BMPOrder Info: [id number] - MGOrder Info: 3016-3 - TSHOrder Info: 64879-5 - IBCOrder Info: 2276-4 - FEROrder Info: 3024-7 - T4F Performed By: #### L 501.5200, L500.2500 ####[facility] [address] [place], [address] CO2 [Moles/Vol] 22.0 mmol/L Normal 21.0-32.0 [facility] Comment on above: Order Comment: Order Date: 10/11/24Order Info: 67-1 - BMPOrder Info: 64034-7 - MGOrder Info: 3016-3 - TSHOrder Info: [id number] - IBCOrder Info: 2276-4 - FEROrder Info: 3024-7 - T4F Performed By: #### L 501.5200, L500.2500 ####[facility] [address] [place], [address] Creatinine [Mass/Vol] 2.15 mg/dL High 0.70-1.20 [facility] Comment on above: Order Comment: Order Date: 10/11/24Order Info: 666- - BMPOrder Info: [id number] - MGOrder Info: 6-3 - TSHOrder Info: 13513-5 - IBCOrder Info: 2276-4 - FEROrder Info: 3024-7 - T4F Performed By: #### L 501.5200, L500.2500 ####[facility] [address] [place], [address] GAP 16 High 5-15 [facility] Comment on above: Order Comment: Order Date: 10/11/24Order Info: 666- - BMPOrder Info: [id number] - MGOrder Info: 3016-3 - TSHOrder Info: 27961-4 - IBCOrder Info: 2276-4 - FEROrder Info: 3024-7 - T4F Performed By: #### L 501.5200, L500.2500 ####[facility] [address] [place], [address] GFR/1.73 sq M.predicted among non-blacks MDRD (S/P/Bld) [Vol rate/Area] 30 mL/min/{1.73_m2} Low >60 [facility] Comment on above: Order Comment: Order Date: 10/11/24Order Info: 666-1 - BMPOrder Info: 07009-7 - MGOrder Info: 3015-3 - TSHOrder Info: 92858-4 - IBCOrder Info: 6-4 - FEROrder Info: 3024-7 - T4F Result Comment: mL/m in/1.73m2 CKD-EPI Creatinine Equation (2020) Performed By: #### L 501.5200, L500.2500 ####[facility] [address] [place], [address] Glucose [Mass/Vol] 245 mg/dL High 70-99 [facility] Comment on above: Order Comment: Order Date: 10/11/24Order Info: 666- - BMPOrder Info: 91683-6 - MGOrder Info: 3015-3 - TSHOrder Info: 86838-8 - IBCOrder Info: 2275-4 - FEROrder Info: 3024-7 - T4F Performed By: #### L 501.5200, L500.2500 ####[facility] [address] [place], [address] Potassium [Moles/Vol] 4.5 mmol/L Normal 3.3-5.1 [facility] Comment on above: Order Comment: Order Date: 10/11/24Order Info: 666- - BMPOrder Info: 83555-6 - MGOrder Info: 3015-3 - TSHOrder Info: 99560-5 - IBCOrder Info: 6-4 - FEROrder Info: 3024-7 - T4F Performed By: #### L 501.5200, L500.2500 ####[facility] [address] [place], [address] Sodium [Moles/Vol] 134 mmol/L Normal 133-145 [facility] Comment on above: Order Comment: Order Date: 10/11/24Order Info: 666- - BMPOrder Info: 91680-4 - MGOrder Info: 3015-3 - TSHOrder Info: 13039-4 - IBCOrder Info: 2276-4 - FEROrder Info: 3023-7 - T4F Performed By: #### L 501.5200, L500.2500 ####[facility] [address] [place], [address] Urea nitrogen [Mass/Vol] 86 mg/dL High 4-19 [facility] Comment on above: Order Comment: Order Date: 10/11/24Order Info: 0667 - BMPOrder Info: 35511-1 - MGOrder Info: 3016-3 - TSHOrder Info: [id number] - IBCOrder Info: 2275-10 - FEROrder Info: 3024-01 - T4F Performed By: #### L 501.5200, L500.2500 ####[facility] [address] [place], [address] Basophil percentageOrdered B y: Fei Easton on 10-11-2024 Basophils/100 WBC (Bld) 0.1 % 0-1 [facility] CBC W/Diff, Automatedon 09-29 Absolute Lymph 1.38 X10 3/uL Normal 0.83-4.51 [facility] Comment on above: Performed By: #### L 500.2500, L100.0100 ####[facility] [address] [place], [address] Absolute Neut 9.9 X10 3/uL High 2.0-7.7 [facility] Comment on above: Performed By: #### L 500.2500, L100.0100 ####[facility] [address] [place], [address] Basophils/100 WBC (Bld) 0.1 % Normal 0-1 [facility] Comment on above: Performed By: #### L 500.2500, L100.0100 ####[facility] [address] [place], [address] Eosinophils/100 WBC (Bld) 0.0 % Normal 0-5 [facility] Comment on above: Performed By: #### L 500.2500, L100.0100 ####[facility] [address] [place], [address] Erythrocyte distribution width (RBC) [Ratio] 13.5 % Normal 11.6-14.6 [facility] Comment on above: Performed By: #### L 500.2500, L100.0100 ####[facility] [address] [place], [address] Hematocrit (Bld) [Volume fraction] 31.9 % Low 40-54 [facility] Comment on above: Performed By: #### L 500.2500, L100.0100 ####[facility] [address] [place], [address] Hemoglobin (Bld) [Mass/Vol] 11.0 g/dL Low 13.0-16.5 [facility] Comment on above: Performed By: #### L 500.2500, L100.0100 ####[facility] [address] [place], [address] IG% 0.500 Normal 0.0-0.9 [facility] Comment on above: Result Comment: IG% - Immature Granulocytes (promyelocytes, myelocytes andmetamyelocytes) > 1% indicates that a LEFT SHIFT is Present. Performed By: #### L 500.2500, L100.0100 ####[facility] [address] [place], [address] Lymphocytes/100 WBC (Bld) 11.3 % Low 19-41 [facility] Comment on above: Performed By: #### L 500.2500, L100.0100 ####[facility] [address] [place], [address] MCH (RBC) [Entitic mass] 31.8 pg Normal 27.0-32.0 [facility] Comment on above: Performed By: #### L 500.2500, L100.0100 ####[facility] [address] [place], [address] MCHC (RBC) [Mass/Vol] 34.5 g/dL Normal 32-36 [facility] Comment on above: Performed By: #### L 500.2500, L100.0100 ####[facility] [address] [place], [address] MCV (RBC) [Entitic vol] 92.2 fL Normal 80-94 [facility] Comment on above: Performed By: #### L 500.2500, L100.0100 ####[facility] [address] [place], [address] Monocytes/100 WBC (Bld) 6.9 % Normal 0-10 [facility] Comment on above: Performed By: #### L 500.2500, L100.0100 ####[facility] [address] [place], [address] Neutrophils/100 WBC (Bld) 81.2 % High 47-70 [facility] Comment on above: Performed By: #### L 500.2500, L100.0100 ####[facility] [address] [place], [address] Nucleated RBC (Bld) [#/Vol] 0 10*3/uL Normal 0-5 [facility] Comment on above: Performed By: #### L 500.2500, L100.0100 ####[facility] [address] [place], [address] Platelet mean volume (Bld) [Entitic vol] 10.3 fL Normal 6.2-12.0 [facility] Comment on above: Performed By: #### L 500.2500, L100.0100 ####[facility] [address] [place], [address] Platelets (Bld) [#/Vol] 199 10*3/uL Normal 150-450 [facility] Comment on above: Performed By: #### L 500.2500, L100.0100 ####[facility] [address] [place], [address] RBC (Bld) [#/Vol] 3.46 10*6/uL Low 4.6-6.2 [facility] Comment on above: Performed By: #### L 500.2500, L100.0100 ####[facility] [address] [place], [address] RDW SD 45.6 fl High 35.1-43.9 [facility] Comment on above: Performed By: #### L 500.2500, L100.0100 ####[facility] [address] [place], [address] WBC (Bld) [#/Vol] 12.2 10*3/uL High 4.4-11.0 [facility] Comment on above: Performed By: #### L 500.2500, L100.0100 ####[facility] [address] [place], [address] CBC-Complete Blood Cnt No Di ffon 10-11-2024 Erythrocyte distribution width (RBC) [Ratio] 13.4 % Normal 11.6-14.6 [facility] Comment on above: Order Comment: Order Date: 10/11/24Order Info: [id number] - CBC Performed By: #### L 503.6550, L503.6030, L100.0500 ####[facility] [address] [place], [address] Hematocrit (Bld) [Volume fraction] 32.7 % Low 40-54 [facility] Comment on above: Order Comment: Order Date: 10/11/24Order Info: [id number] - CBC Performed By: #### L 503.6550, L503.6030, L100.0500 ####[facility] [address] [place], [address] Hemoglobin (Bld) [Mass/Vol] 11.1 g/dL Low 13.0-16.5 [facility] Comment on above: Order Comment: Order Date: 10/11/24Order Info: [id number] - CBC Performed By: #### L 503.6550, L503.6030, L100.0500 ####[facility] [address] [place], [address] MCH (RBC) [Entitic mass] 31.3 pg Normal 27.0-32.0 [facility] Comment on above: Order Comment: Order Date: 10/11/24Order Info: [id number] - CBC Performed By: #### L 503.6550, L503.6030, L100.0500 ####[facility] [address] [place], [address] MCHC (RBC) [Mass/Vol] 33.9 g/dL Normal 32-36 [facility] Comment on above: Order Comment: Order Date: 10/11/24Order Info: [id number] - CBC Performed By: #### L 503.6550, L503.6030, L100.0500 ####[facility] [address] [place], [address] MCV (RBC) [Entitic vol] 92.1 fL Normal 80-94 [facility] Comment on above: Order Comment: Order Date: 10/11/24Order Info: [id number] - CBC Performed By: #### L 503.6550, L503.6030, L100.0500 ####[facility] [address] [place], [address] Platelet mean volume (Bld) [Entitic vol] 10.0 fL Normal 6.2-12.0 [facility] Comment on above: Order Comment: Order Date: 10/11/24Order Info: [id number] - CBC Performed By: #### L 503.6550, L503.6030, L100.0500 ####[facility] [address] [place], [address] Platelets (Bld) [#/Vol] 192 10*3/uL Normal 150-450 [facility] Comment on above: Order Comment: Order Date: 10/11/24Order Info: [id number] - CBC Performed By: #### L 503.6550, L503.6030, L100.0500 ####[facility] [address] [place], [address] RBC (Bld) [#/Vol] 3.55 10*6/uL Low 4.6-6.2 [facility] Comment on above: Order Comment: Order Date: 10/11/24Order Info: [id number] - CBC Performed By: #### L 503.6550, L503.6030, L100.0500 ####[facility] [address] [place], [address] RDW SD 45.2 fl High 35.1-43.9 [facility] Comment on above: Order Comment: Order Date: 10/11/24Order Info: [id number] - CBC Performed By: #### L 503.6550, L503.6030, L100.0500 ####[facility] [address] [place], [address] WBC (Bld) [#/Vol] 11.9 10*3/uL High 4.4-11.0 [facility] Comment on above: Order Comment: Order Date: 10/11/24Order Info: [id number] - CBC Performed By: #### L 503.6550, L503.6030, L100.0500 ####[facility] [address] [place], [address] Calculated total iron bindin g capacityOrdered By: Jose Enrique Finney on 10-11-2024 Total Iron Binding Capacity 283 ug/dL 250-450 [facility] Carbon dioxide, total [Moles /volume] in Central venous bloodOrdered By: Fei Easton on 10-11-2024 CO2 [Moles/Vol] 22.4 mmol/L 21.0-32.0 [facility] Carbon dioxide, total [Moles /volume] in Central venous bloodOrdered By: Jose Enrique Finney on 10-11-2024 CO2 [Moles/Vol] 22.0 mmol/L 21.0-32.0 [facility] Chloride assayOrdered By: Willem Easton on 10-11-2024 Chloride [Moles/Vol] 94 mmol/L Low 98-108 [facility] Chloride assayOrdered By: Karen Finney on 10-11-2024 Chloride [Moles/Vol] 97 mmol/L Low 98-108 [facility] Emergency Department Summary on 10-11-2024 Emergency Department Summary Normal [facility] Eosinophil percentageOrdered By: Fei Easton on 10-11-2024 Eosinophils/100 WBC (Bld) 0.0 % 0-5 [facility] Erythrocyte distribution wid th ratioOrdered By: Fei Easton on 10-11-2024 Erythrocyte distribution width (RBC) [Ratio] 13.5 % 11.6-14.6 [facility] Erythrocyte distribution wid th ratioOrdered By: Jose Enrique Finney on 10-11-2024 Erythrocyte distribution width (RBC) [Ratio] 13.4 % 11.6-14.6 [facility] Erythrocyte distribution wid th standard deviationOrdered By: Fei Easton on 10-11-2024 Erythrocyte distribution width (RBC) [Entitic vol] 45.6 fL High 35.1-43.9 [facility] Erythrocyte distribution wid th standard deviationOrdered By: Jose Enrique Finney on 10-11-2024 Erythrocyte distribution width (RBC) [Entitic vol] 45.2 fL High 35.1-43.9 [facility] Erythrocyte distribution width (RBC) [Ratio] 45.2 fl High 35.1-43.9 [facility] Estimation of creatinine leela aranceOrdered By: Fei Easton on 10-11-2024 Estimated Creatinine Clearance Calc 23.57 ml/min Low 50-250 [facility] Ferritinon 10-11-2024 Ferritin [Mass/Vol] 187 ng/mL Normal 37-417 [facility] Comment on above: Order Comment: Order Date: 10/11/24Order Info: 0667-1 - BMPOrder Info: 72235-2 - MGOrder Info: 3016-3 - TSHOrder Info: [id number] - IBCOrder Info: 2276-4 - FEROrder Info: 3024-7 - T4F Performed By: #### L 503.6550, L503.6030, L100.0500 ####[facility] [address] [place], [place], [address] GFR/1.73 sq M.predicted christopher g non-blacks MDRD (S/P/Bld) [Vol rate/Area]Ordered By: Fei Easton on 10-11-2024 Estimated GFR (MDRD) Non-Af Amer 29 Low >60 [facility] Comment on above: mL/min/1.73m2 CKD-EP I Creatinine Equation (2020) GFR/1.73 sq M.predicted christopher g non-blacks MDRD (S/P/Bld) [Vol rate/Area]Ordered By: Jose Enrique Finney on 10-11-2024 Estimated GFR (MDRD) Non-Af Amer 30 Low >60 [facility] Comment on above: mL/min/1.73m2 CKD-EP I Creatinine Equation (2020) Glomerular filtration rate ( GFR) estimation/1.73 sq m using serum, plasma, or whole bOrdered By: Jose Enrique Finney on 10-11-2024 GFR/1.73 sq M.predicted among non-blacks MDRD (S/P/Bld) [Vol rate/Area] 30 mL/min/{1.73_m2} Low >60 [facility] H AND P Exam - Hospitaliston 10-11-2024 H&P Exam - Hospitalist Normal [facility] Hematocrit Auto (Bld) [Volum e fraction]Ordered By: Fei Easton on 10-11-2024 Hematocrit (Bld) [Volume fraction] 31.9 % Low 40-54 [facility] Hematocrit Auto (Bld) [Volum e fraction]Ordered By: Jose Enrique Finney on 10-11-2024 Hematocrit (Bld) [Volume fraction] 32.7 % Low 40-54 [facility] Hemoglobin measurementOrdere d By: Fei Easton on 10-11-2024 Hemoglobin (Bld) [Mass/Vol] 11.0 g/dL Low 13.0-16.5 [facility] Hemoglobin measurementOrdere d By: Jose Enrique Finney on 10-11-2024 Hemoglobin (Bld) [Mass/Vol] 11.1 g/dL Low 13.0-16.5 [facility] Immature granulocytes/100 WB C Auto (Bld)Ordered By: Fei Easton on 10-11-2024 Immature granulocytes/100 WBC (Bld) 0.500 % 0.0-0.9 [facility] Comment on above: IG% - Immature Granu locytes (promyelocytes, myelocytes and metamyelocytes) > 1% indicates that a LEFT SHIFT is Present. International normalized rat io (INR) calculationOrdered By: Fei Easton on 10-11-2024 INR Coag (Bld) [Relative time] 2.2 {INR} [facility] Iron (Unsp spec) [Mass/Mass] Ordered By: Jose Enrique Finney on 10-11-2024 Iron [Mass/Vol] 165 ug/dL 65-175 [facility] Iron measurement (mass/mass) Ordered By: Jose Enrique Finney on 10-11-2024 Iron (Unsp spec) [Mass/Mass] 165 ug/dL 65-175 [facility] Iron saturation [Mass fracti on]Ordered By: Jose Enrique Finney on 10-11-2024 Iron Saturation 58.0 % High 9-55 [facility] Iron+Iron Binding Capacityon 10-11-2024 Iron [Mass/Vol] 165 ug/dL Normal 65-175 [facility] Comment on above: Order Comment: Order Date: 10/11/24Order Info: 0667-1 - BMPOrder Info: 04335-0 - MGOrder Info: 3016-3 - TSHOrder Info: [id number] - IBCOrder Info: 2276-4 - FEROrder Info: 3024-7 - T4F Performed By: #### L 503.6550, L503.6030, L100.0500 ####[facility] [address] [place], [place], [id number] IRON SATURATION 58.0 High 9-55 [facility] Comment on above: Order Comment: Order Date: 10/11/24Order Info: 67-1 - BMPOrder Info: 18056-2 - MGOrder Info: 3016-3 - TSHOrder Info: [id number] - IBCOrder Info: 2276-4 - FEROrder Info: 3024-7 - T4F Performed By: #### L 503.6550, L503.6030, L100.0500 ####[facility] [address] [place], [address] TIBC 283 ug/dL Normal 250-450 [facility] Comment on above: Order Comment: Order Date: 10/11/24Order Info: 666-1 - BMPOrder Info: [id number] - MGOrder Info: 3016-3 - TSHOrder Info: [id number] - IBCOrder Info: 2276-4 - FEROrder Info: 3024-7 - T4F Performed By: #### L 503.6550, L503.6030, L100.0500 ####[facility] [address] [place], [address] UIBC 118 ug/dL Low 228-428 [facility] Comment on above: Order Comment: Order Date: 10/11/24Order Info: 666-1 - BMPOrder Info: [id number] - MGOrder Info: 3016-3 - TSHOrder Info: [id number] - IBCOrder Info: 2276-4 - FEROrder Info: 3024-7 - T4F Performed By: #### L 503.6550, L503.6030, L100.0500 ####[facility] [address] [place], [address] L503.0106on 10-11-2024 Cobalamin (Vitamin B12) [Mass/Vol] 333 pg/mL Normal 180-914 [facility] Comment on above: Order Comment: Order Date: 10/11/24Order Info: 666-1 - BMPOrder Info: [id number] - MGOrder Info: 3016-3 - TSHOrder Info: 82341-2 - IBCOrder Info: 2276-4 - FEROrder Info: 3024-7 - T4F Performed By: #### L 506.1001, L503.0106 ####[facility] [address] [place], [address] L506.1001on 10-11-2024 Vitamin D 25-OH 64.6 ng/mL Normal 30-100 [facility] Comment on above: Order Comment: Order Date: 10/11/24Order Info: 0667-1 - BMPOrder Info: [id number] - MGOrder Info: 3016-3 - TSHOrder Info: 51744-7 - IBCOrder Info: 2275-10 - FEROrder Info: 3027 - T4F Result Comment: Verito min D StatusDeficiency: <20 ng/mL (50nmol/L)Insufficiency: 20-30 ng/mL (50-75 nmol/L)Sufficiency: 30-100 ng/mL (75-250 nmol/L)Toxicity: >100 ng/mL (>250 nmol/L) Performed By: #### L 506.1001, L503.0106 ####[facility] [address] [place], [address] Lower GI hemoglobin IA Ql (S tl)Ordered By: Fei Easton on 10-11-2024 Stool Occult Blood (MADELEINE) [facility] Lymphocytes Auto (Unsp spec) [#/Vol]Ordered By: Fei Easton on 10-11-2024 Lymphocytes (Bld) [#/Vol] 1.38 10*3/uL 0.83-4.51 [facility] Lymphocytes/100 WBC Auto (Un sp spec)Ordered By: Fei Easton on 10-11-2024 Lymphocytes/100 WBC (Bld) 11.3 % Low 19-41 [facility] MCV (mean corpuscular volume ) determinationOrdered By: Fei Esaton on 10-11-2024 MCV (RBC) [Entitic vol] 92.2 fL 80-94 [facility] MCV (mean corpuscular volume ) determinationOrdered By: Jose Enrique Finney on 10-11-2024 MCV (RBC) [Entitic vol] 92.1 fL 80-94 [facility] Magnesiumon 10-11-2024 Magnesium [Mass/Vol] 2.5 mg/dL High 1.5-2.2 [facility] Comment on above: Order Comment: *ADD- ON* Performed By: #### L 501.5200 ####[facility] [address] [place], [address] Magnesium [Mass/Vol] 2.5 mg/dL High 1.5-2.2 [facility] Comment on above: Order Comment: Order Date: 10/11/24Order Info: 0667-1 - BMPOrder Info: [id number] - MGOrder Info: 3016-3 - TSHOrder Info: [id number] - IBCOrder Info: 2276-4 - FEROrder Info: 3024-7 - T4F Performed By: #### L 501.5200, L500.2500 ####[facility] [address] [place], [address] Magnesium (Unsp spec) [Mass/ Vol]Ordered By: Germán Lee on 10-11-2024 Magnesium [Mass/Vol] 2.5 mg/dL High 1.5-2.2 [facility] Magnesium (Unsp spec) [Mass/ Vol]Ordered By: Jose Enrique Finney on 10-11-2024 Magnesium [Mass/Vol] 2.5 mg/dL High 1.5-2.2 [facility] Magnesium measurement (mass/ volume)Ordered By: Germán Lee on 10-11-2024 Magnesium (Unsp spec) [Mass/Vol] 2.5 mg/dL High 1.5-2.2 [facility] Magnesium measurement (mass/ volume)Ordered By: Jose Enrique Finney on 10-11-2024 Magnesium (Unsp spec) [Mass/Vol] 2.5 mg/dL High 1.5-2.2 [facility] Mean corpuscular hemoglobin (MCH) determinationOrdered By: Fei Easton on 10-11-2024 MCH (RBC) [Entitic mass] 31.8 pg 27.0-32.0 [facility] Mean corpuscular hemoglobin (MCH) determinationOrdered By: Jose Enrique Finney on 10-11-2024 MCH (RBC) [Entitic mass] 31.3 pg 27.0-32.0 [facility] Mean corpuscular hemoglobin concentration (MCHC) determinationOrdered By: Fei Easton on 10-11-2024 MCHC (RBC) [Mass/Vol] 34.5 g/dL - [facility] Mean corpuscular hemoglobin concentration (MCHC) determinationOrdered By: Jose Enrique Finney on 10-11-2024 MCHC (RBC) [Mass/Vol] 33.9 g/dL 32-36 [facility] Mean platelet volume determi nationOrdered By: Fei Easton on 10-11-2024 Platelet mean volume (Bld) [Entitic vol] 10.3 fL 6.2-12.0 [facility] Mean platelet volume determi nationOrdered By: Jose Enrique Finney on 10-11-2024 Platelet mean volume (Bld) [Entitic vol] 10.0 fL 6.2-12.0 [facility] Monocyte percentageOrdered B y: Fei Easton on 10-11-2024 Monocytes/100 WBC (Bld) 6.9 % 0-10 [facility] Neutrophil percentageOrdered By: Fei Easton on 10-11-2024 Neutrophils/100 WBC (Bld) 81.2 % High 47-70 [facility] [facility] No Panel InformationOrdered By: Jose Enrique Finney on 10-11-2024 Unsaturated Iron Binding Capacity 118 ug/dL Low 228-428 [facility] 118 ug/dL Low 228-428 [facility] Nucleated red blood cell per centageOrdered By: Fei Easton on 10-11-2024 Nucleated RBC/100 WBC (Bld) [Ratio] 0 % 0-5 [facility] Partial Thromboplast Timeon 10-11-2024 aPTT Coag (Bld) [Time] 36.8 s High 24.1-36.2 [facility] Comment on above: Performed By: #### L 300.4310, L300.3900, M100.7900 ####[facility] [address] [place], [address] Platelet countOrdered By: Willem Easton on 10-11-2024 Platelets (Bld) [#/Vol] 199 10*3/uL 150-450 [facility] Platelet countOrdered By: Karen Finney on 10-11-2024 Platelets (Bld) [#/Vol] 192 10*3/uL 150-450 [facility] Potassium (Unsp spec) [Mass/ Vol]Ordered By: Fei Easton on 10-11-2024 Potassium [Moles/Vol] 4.1 mmol/L 3.3-5.1 [facility] Potassium (Unsp spec) [Mass/ Vol]Ordered By: Jose Enrique Finney on 10-11-2024 Potassium [Moles/Vol] 4.5 mmol/L 3.3-5.1 [facility] Potassium measurement (mass/ volume)Ordered By: Jose Enrique Finney on 10-11-2024 Potassium (Unsp spec) [Mass/Vol] 4.5 mmol/L 3.3-5.1 [facility] Prothrombin Time w/INRon INR Coag (PPP) [Relative time] 2.2 {INR} Normal [facility] Comment on above: Performed By: #### L 300.4310, L300.3900, M100.7900 ####[facility] [address] [place], [address] PT Coag (PPP) [Time] 24.5 s High 11.7-14.9 [facility] Comment on above: Performed By: #### L 300.4310, L300.3900, M100.7900 ####[facility] [address] [place], [address] Prothrombin timeOrdered By: Fei Easton on 10-11-2024 PT Coag (PPP) [Time] 24.5 s High 11.7-14.9 [facility] RBC Auto (Bld) [#/Vol]Ordere d By: Fei Easton on 10-11-2024 RBC (Bld) [#/Vol] 3.46 10*6/uL Low 4.6-6.2 [facility] RBC Auto (Bld) [#/Vol]Ordere d By: Jose Enrique Finney on 10-11-2024 RBC (Bld) [#/Vol] 3.55 10*6/uL Low 4.6-6.2 [facility] Serum creatinine measurement (mass/volume)Ordered By: Fei Easton on 10-11-2024 Creatinine [Mass/Vol] 2.22 mg/dL High 0.70-1.20 [facility] Serum creatinine measurement (mass/volume)Ordered By: Jose Enrique Finney on 10-11-2024 Creatinine [Mass/Vol] 2.15 mg/dL High 0.70-1.20 [facility] Serum glucose measurement (m ass/volume)Ordered By: Fei Easton on 10-11-2024 Glucose [Mass/Vol] 261 mg/dL High 70- [facility] Serum glucose measurement (m ass/volume)Ordered By: Jose Enrique Finney on 10-11-2024 Glucose [Mass/Vol] 245 mg/dL High 70- [facility] Serum or plasma calcium jason urement (mass/volume)Ordered By: Fei Easton on 10-11-2024 Calcium [Mass/Vol] 9.4 mg/dL 7.6-11.0 [facility] Serum or plasma calcium jason urement (mass/volume)Ordered By: Jose Enrique Finney on 10-11-2024 Calcium [Mass/Vol] 9.5 mg/dL 7.6-11.0 [facility] Serum or plasma ferritin sergo surement (mass/volume)Ordered By: Jose Enrique Finney on 10-11-2024 Ferritin [Mass/Vol] 187 ng/mL 37-417 [facility] Serum or plasma iron saturat ion measurement (mass fraction)Ordered By: Jose Enrique Finney on 10-11-2024 Iron saturation [Mass fraction] 58.0 % High 9-55 [facility] Serum or plasma urea nitroge n measurement (mass/volume)Ordered By: Fei Easton on 10-11-2024 Urea nitrogen [Mass/Vol] 84 mg/dL High 4-19 [facility] Serum or plasma urea nitroge n measurement (mass/volume)Ordered By: Jose Enrique Finney on 10-11-2024 Urea nitrogen [Mass/Vol] 86 mg/dL High 4-19 [facility] Sodium levelOrdered By: Fei Easton on 10-11-2024 Sodium [Moles/Vol] 133 mmol/L 133-145 [facility] Sodium levelOrdered By: Jose Enrique Finney on 10-11-2024 Sodium [Moles/Vol] 134 mmol/L 133-145 [facility] Stool Occult Blood iFOBon STOB Normal [facility] Comment on above: Performed By: #### L 300.4310, L300.3900, M100.7900 ####[facility] [address] [place], [place], [address] Stool gastrointestinal hemog lobin detection by immunologic methodOrdered By: Fei Easton on 10-11-2024 Lower GI hemoglobin IA Ql (Stl) [facility] T4 Free Directon 10-11-2024 T4 FREE DIRECT 1.30 ng/dL Normal 0.76-1.46 [facility] Comment on above: Order Comment: Order Date: 10/11/24Order Info: [id number] - BMPOrder Info: [id number] - MGOrder Info: [id number] - TSHOrder Info: [id number] - IBCOrder Info: [id number] - FEROrder Info: [id number] - T4F Performed By: #### L 501.9520, L506.0400 ####[facility] [address] [place], [place], [address] T4 freeOrdered By: Jose Enrique pappas on 10-11-2024 Free T4 [Mass/Vol] 1.30 ng/dL 0.76-1.46 [facility] TSH DL <= 0.005 mIU/L QnOrde red By: Jose Enrique Finney on 10-11-2024 Thyroid Stimulating Hormone (TSH) 2.290 uIU/mL 0.300-4.20 0 [facility] TSH Qn 2.290 uIU/mL 0.300-4.20 0 [facility] Thyroid Stim Hormone (TSH)on 10-11-2024 TSH 2.290 uIU/mL Normal 0.300-4.20 0 [facility] Comment on above: Order Comment: Order Date: 10/11/24Order Info: [id number] - BMPOrder Info: [id number] - MGOrder Info: [id number] - TSHOrder Info: [id number] - IBCOrder Info: [id number] - FEROrder Info: [id number] - T4F Performed By: #### L 501.9520, L506.0400 ####[facility] [address] [place], [address] Vitamin B12 ser/plasOrdered By: Jose Enrique Finney on 10-11-2024 Cobalamin (Vitamin B12) [Mass/Vol] 333 pg/mL 180-914 [facility] Vitamin D, 25-hydroxyOrdered By: Jose Enrique Finney on 10-11-2024 Vitamin D 25-Hydroxy 64.6 ng/mL 30-100 [facility] Comment on above: Vitamin D StatusDefi ciency: <20 ng/mL (50nmol/L)Insufficiency: 20-30 ng/mL (50-75 nmol/L)Sufficiency: 30-100 ng/mL (75-250 nmol/L)Toxicity: >100 ng/mL (>250 nmol/L) White blood cell (WBC) count Ordered By: Fei Easton on 10-11-2024 WBC (Bld) [#/Vol] 12.2 10*3/uL High 4.4-11.0 [facility] White blood cell (WBC) count Ordered By: Jose Enrique Finney on 10-11-2024 WBC (Bld) [#/Vol] 11.9 10*3/uL High 4.4-11.0 [facility] aPTT Coag (PPP) [Time]Ordere d By: Fei Easton on 10-11-2024 aPTT Coag (Bld) [Time] 36.8 s High 24.1-36.2 [facility] Absolute lymphocyte countOrd ered By: Kira Lerma on 10-08-2024 Lymphocytes Auto (Unsp spec) [#/Vol] 1.25 10*3/uL 0.83-4.51 [facility] Absolute neutrophil countOrd ered By: Kira Lerma on 10-08-2024 Neutrophils (Bld) [#/Vol] 5.4 10*3/uL 2.0-7.7 [facility] Anion gap in Serum or Plasma Ordered By: Bernabe Casey on 10-08-2024 Anion gap [Moles/Vol] 18 mmol/L High 5-15 [facility] Automated lymphocyte count a s percentage of total leukocytesOrdered By: Kira White on 10-08-2024 Lymphocytes/100 WBC Auto (Unsp spec) 16.7 % Low 19-41 [facility] BUN/creatinine ratioOrdered By: Bernabe Casey on 10-08-2024 Urea nitrogen/Creatinine [Mass ratio] 14.9 mg/mg 05-20 [facility] Basic Metabolic Profile (BMP )on 10-08-2024 BUN/CRE 14.9 RATIO Normal 05-20 [facility] Comment on above: Performed By: #### L 500.2500 ####[facility] [address] [place], [address] Calcium [Mass/Vol] 9.0 mg/dL Normal 7.6-11.0 [facility] Comment on above: Performed By: #### L 500.2500 ####[facility] [address] [place], [address] Chloride [Moles/Vol] 92 mmol/L Low 98-108 [facility] Comment on above: Performed By: #### L 500.2500 ####[facility] [address] [place], [address] CO2 [Moles/Vol] 22.4 mmol/L Normal 21.0-32.0 [facility] Comment on above: Performed By: #### L 500.2500 ####[facility] [address] [place], [address] Creatinine [Mass/Vol] 1.81 mg/dL High 0.70-1.20 [facility] Comment on above: Performed By: #### L 500.2500 ####[facility] [address] [place], [address] ECRCL 28.91 ml/min Low 50-250 [facility] Comment on above: Performed By: #### L 500.2500 ####[facility] [address] [place], [address] GAP 18 High 5-15 [facility] Comment on above: Performed By: #### L 500.2500 ####[facility] [address] [place], [address] GFR/1.73 sq M.predicted among non-blacks MDRD (S/P/Bld) [Vol rate/Area] 37 mL/min/{1.73_m2} Low >60 [facility] Comment on above: Result Comment: mL/m in/1.73m2 CKD-EPI Creatinine Equation (2020) Performed By: #### L 500.2500 ####[facility] [address] [place], [address] Glucose [Mass/Vol] 239 mg/dL High 70-99 [facility] Comment on above: Performed By: #### L 500.2500 ####[facility] [address] [place], [address] Potassium [Moles/Vol] 3.2 mmol/L Low 3.3-5.1 [facility] Comment on above: Result Comment: Hemo lysis present, Results??could be affected.?? Performed By: #### L 500.2500 ####[facility] [address] [place], [address] Sodium [Moles/Vol] 132 mmol/L Low 133-145 [facility] Comment on above: Performed By: #### L 500.2500 ####[facility] [address] [place], [address] Urea nitrogen [Mass/Vol] 27 mg/dL High 4-19 [facility] Comment on above: Performed By: #### L 500.2500 ####[facility] [address] [place], [address] Basophil percentageOrdered B y: Kira White on 10-08-2024 Basophils/100 WBC (Bld) 0.3 % 0-1 [facility] Bedside Glucoseon 10-08-2024 FINGERSTICK GLU 235 mg/dL High 74-106 [facility] Comment on above: Result Comment: IZABELLA GEMENT OF PATIENT CARE PER NURSING PROTOCOL Performed By: #### L 501.080 ####[facility] [address] [place], [address] FINGERSTICK GLU 224 mg/dL High 74-106 [facility] Comment on above: Result Comment: IZABELLA GEMENT OF PATIENT CARE PER NURSING PROTOCOL Performed By: #### L 501.080 ####[facility] [address] [place], [address] Bilirubin, totalOrdered By: Kira Lerma on 10-08-2024 Bilirubin [Mass/Vol] 1.10 mg/dL 0.00-1.30 [facility] CBC W/Diff, Automatedon 09-29 Absolute Lymph 1.25 X10 3/uL Normal 0.83-4.51 [facility] Comment on above: Performed By: #### L 100.0100, L500.4050 ####[facility] [address] [place], [address] Absolute Neut 5.4 X10 3/uL Normal 2.0-7.7 [facility] Comment on above: Performed By: #### L 100.0100, L500.4050 ####[facility] [address] [place], [address] Basophils/100 WBC (Bld) 0.3 % Normal 0-1 [facility] Comment on above: Performed By: #### L 100.0100, L500.4050 ####[facility] [address] [place], [address] Eosinophils/100 WBC (Bld) 0.9 % Normal 0-5 [facility] Comment on above: Performed By: #### L 100.0100, L500.4050 ####[facility] [address] [place], [address] Erythrocyte distribution width (RBC) [Ratio] 13.1 % Normal 11.6-14.6 [facility] Comment on above: Performed By: #### L 100.0100, L500.4050 ####[facility] [address] [place], [address] Hematocrit (Bld) [Volume fraction] 38.2 % Low 40-54 [facility] Comment on above: Performed By: #### L 100.0100, L500.4050 ####[facility] [address] [place], [address] Hemoglobin (Bld) [Mass/Vol] 13.3 g/dL Normal 13.0-16.5 [facility] Comment on above: Performed By: #### L 100.0100, L500.4050 ####[facility] [address] [place], [address] IG% 0.400 Normal 0.0-0.9 [facility] Comment on above: Result Comment: IG% - Immature Granulocytes (promyelocytes, myelocytes andmetamyelocytes) > 1% indicates that a LEFT SHIFT is Present. Performed By: #### L 100.0100, L500.4050 ####[facility] [address] [place], [address] Lymphocytes/100 WBC (Bld) 16.7 % Low 19-41 [facility] Comment on above: Performed By: #### L 100.0100, L500.4050 ####[facility] [address] [place], [address] MCH (RBC) [Entitic mass] 31.1 pg Normal 27.0-32.0 [facility] Comment on above: Performed By: #### L 100.0100, L500.4050 ####[facility] [address] [place], [address] MCHC (RBC) [Mass/Vol] 34.8 g/dL Normal 32-36 [facility] Comment on above: Performed By: #### L 100.0100, L500.4050 ####[facility] [address] [place], [address] MCV (RBC) [Entitic vol] 89.5 fL Normal 80-94 [facility] Comment on above: Performed By: #### L 100.0100, L500.4050 ####[facility] [address] [place], [address] Monocytes/100 WBC (Bld) 10.1 % High 0-10 [facility] Comment on above: Performed By: #### L 100.0100, L500.4050 ####[facility] [address] [place], [address] Neutrophils/100 WBC (Bld) 71.6 % High 47-70 [facility] Comment on above: Performed By: #### L 100.0100, L500.4050 ####[facility] [address] [place], [address] Nucleated RBC (Bld) [#/Vol] 0 10*3/uL Normal 0-5 [facility] Comment on above: Performed By: #### L 100.0100, L500.4050 ####[facility] [address] [place], [address] Platelet mean volume (Bld) [Entitic vol] 9.4 fL Normal 6.2-12.0 [facility] Comment on above: Performed By: #### L 100.0100, L500.4050 ####[facility] [address] [place], [address] Platelets (Bld) [#/Vol] 177 10*3/uL Normal 150-450 [facility] Comment on above: Performed By: #### L 100.0100, L500.4050 ####[facility] [address] [place], [address] RBC (Bld) [#/Vol] 4.27 10*6/uL Low 4.6-6.2 [facility] Comment on above: Performed By: #### L 100.0100, L500.4050 ####[facility] [address] [place], [address] RDW SD 42.7 fl Normal 35.1-43.9 [facility] Comment on above: Performed By: #### L 100.0100, L500.4050 ####[facility] [address] [place], [address] WBC (Bld) [#/Vol] 7.5 10*3/uL Normal 4.4-11.0 [facility] Comment on above: Performed By: #### L 100.0100, L500.4050 ####[facility] [address] [place], [address] Carbon dioxide, total [Moles /volume] in Central venous bloodOrdered By: Bernabe Casey on 10-08-2024 CO2 [Moles/Vol] 22.4 mmol/L 21.0-32.0 [facility] Chloride assayOrdered By: Efrem Casey on 10-08-2024 Chloride [Moles/Vol] 92 mmol/L Low 98-108 [facility] Comprehensive Metabolic Prof ilon 10-08-2024 Albumin [Mass/Vol] 3.9 g/dL Normal 3.4-4.8 [facility] Comment on above: Performed By: #### L 100.0100, L500.4050 ####[facility] [address] [place], [address] Albumin/Globulin [Mass ratio] 1.3 {ratio} Normal 0.9-2.4 [facility] Comment on above: Performed By: #### L 100.0100, L500.4050 ####[facility] [address] [place], [address] ALK PHOS 119 U/L Normal 40-129 [facility] Comment on above: Performed By: #### L 100.0100, L500.4050 ####[facility] [address] [place], [address] ALT [Catalytic activity/Vol] 34 U/L Normal <=46 [facility] Comment on above: Performed By: #### L 100.0100, L500.4050 ####[facility] [address] [place], [address] AST [Catalytic activity/Vol] 34 U/L Normal <=37 [facility] Comment on above: Performed By: #### L 100.0100, L500.4050 ####[facility] [address] [place], [address] Bilirubin [Mass/Vol] 1.10 mg/dL Normal 0.00-1.30 [facility] Comment on above: Performed By: #### L 100.0100, L500.4050 ####[facility] [address] [place], [address] BUN/CRE 13.5 RATIO Normal 10-20 [facility] Comment on above: Performed By: #### L 100.0100, L500.4050 ####[facility] [address] [place], [address] Calcium [Mass/Vol] 9.1 mg/dL Normal 7.6-11.0 [facility] Comment on above: Performed By: #### L 100.0100, L500.4050 ####[facility] [address] [place], [address] Chloride [Moles/Vol] 90 mmol/L Low 98-108 [facility] Comment on above: Performed By: #### L 100.0100, L500.4050 ####[facility] [address] [place], [address] CO2 [Moles/Vol] 27.2 mmol/L Normal 21.0-32.0 [facility] Comment on above: Performed By: #### L 100.0100, L500.4050 ####[facility] [address] [place], [address] Creatinine [Mass/Vol] 1.86 mg/dL High 0.70-1.20 [facility] Comment on above: Performed By: #### L 100.0100, L500.4050 ####[facility] [address] [place], [address] ECRCL 28.13 ml/min Low 50-250 [facility] Comment on above: Performed By: #### L 100.0100, L500.4050 ####[facility] [address] [place], [address] GAP 15 Normal 5-15 [facility] Comment on above: Performed By: #### L 100.0100, L500.4050 ####[facility] [address] [place], [address] GFR/1.73 sq M.predicted among non-blacks MDRD (S/P/Bld) [Vol rate/Area] 35 mL/min/{1.73_m2} Low >60 [facility] Comment on above: Result Comment: mL/m in/1.73m2 CKD-EPI Creatinine Equation (2020) Performed By: #### L 100.0100, L500.4050 ####[facility] [address] [place], [address] Globulin (S) [Mass/Vol] 3.1 g/dL Normal 2.2-4.2 [facility] Comment on above: Performed By: #### L 100.0100, L500.4050 ####[facility] [address] [place], [address] Glucose [Mass/Vol] 145 mg/dL High 70-99 [facility] Comment on above: Performed By: #### L 100.0100, L500.4050 ####[facility] [address] [place], [address] Potassium [Moles/Vol] 2.9 mmol/L Low 3.3-5.1 [facility] Comment on above: Performed By: #### L 100.0100, L500.4050 ####[facility] [address] [place], [address] Sodium [Moles/Vol] 132 mmol/L Low 133-145 [facility] Comment on above: Performed By: #### L 100.0100, L500.4050 ####[facility] [address] [place], [address] T PROT 7.0 g/dL Normal 5.9-8.4 [facility] Comment on above: Performed By: #### L 100.0100, L500.4050 ####[facility] [address] [place], [address] Urea nitrogen [Mass/Vol] 25 mg/dL High 4-19 [facility] Comment on above: Performed By: #### L 100.0100, L500.4050 ####[facility] [address] [place], [address] Discharge Instructionon 09-29 Discharge Instruction Normal [facility] Electrocardiogram reportOrde red By: Ponce eKnt on 10-08-2024 [address] [facility] Services [address] [place] [address] 12 Lead EKG 10/07/242013 MR#: [id number] Acct: [id number] Name: JUAN DAVID HERNÁNDZE Rep #:[id number] 1 : 1940 84 From: Ponce coley MD Attending Dr: Dr. Bernabe Casey, Status: ADM SOLOMON Ordering Dr: Catracho Donohue MD Date: 10/07/24 Location: [facility] Sex: M C Admitted: 10/07/24 Test Reason : DYSRHYTHMIA Blood Pressure : */* mmHG Vent. Rate : 74 BPM Atrial Rate : 36 BPM P-R Int : * ms QRS Dur : 232 ms QT Int : 514 ms P-R-T Axes : * -75 99 degrees QTcB Int : 570 ms Ventricular-paced rhythm with occasional Premature ventricular complexes Abnormal ECG Confirmed by Ponce Kent ([id number]), magazine editor ELROY LONDON ([id number]) on 10/08/2024 11:04:00 AM Referred By: JUANCHO Confirmed By: Ponce Kent 10/08/24 1104 Date _ Ponce Kent MD CC: Dr. Catracho Donohue MD; Dr. Jose Enrique Finney MD; Dr. Bernabe Casey, DO ~ Signed [facility] Work Phone: Eosinophil percentageOrdered By: Maria Guadalupe on 10-08-2024 Eosinophils/100 WBC (Bld) 0.9 % 0-5 [facility] Erythrocyte distribution wid th ratioOrdered By: White on 10-08-2024 Erythrocyte distribution width (RBC) [Ratio] 13.1 % 11.6-14.6 [facility] Erythrocyte distribution wid th standard deviationOrdered By: on 10-08-2024 Erythrocyte distribution width (RBC) [Entitic vol] 42.7 fL 35.1-43.9 [facility] Erythrocyte distribution width (RBC) [Ratio] 42.7 fl 35.1-43.9 [facility] Estimation of creatinine leela aranceOrdered By: Bernabe Casey on 10-08-2024 Estimated Creatinine Clearance Calc 28.91 ml/min Low 50-250 [facility] GFR/1.73 sq M.predicted christopher g non-blacks MDRD (S/P/Bld) [Vol rate/Area]Ordered By: Bernabe Casey on 10-08-2024 Estimated GFR (MDRD) Non-Af Amer 37 Low >60 [facility] Comment on above: mL/min/1.73m2 CKD-EP I Creatinine Equation (2020) Glomerular filtration rate ( GFR) estimation/1.73 sq m using serum, plasma, or whole bOrdered By: Bernabe Casey on 10-08-2024 GFR/1.73 sq M.predicted among non-blacks MDRD (S/P/Bld) [Vol rate/Area] 37 mL/min/{1.73_m2} Low >60 [facility] Gl[facility] at [facility] deOrdered By: Bernabe Casey on 10-08-2024 Bedside Glucose (Misc Panel) 235 mg/dL High 74-106 [facility] Comment on above: MANAGEMENT OF PATIEN T CARE PER NURSING PROTOCOL Glucose [Mass/Vol] 235 mg/dL High 74-106 [facility] Hematocrit Auto (Bld) [Volum e fraction]Ordered By: Kira Lerma on 10-08-2024 Hematocrit (Bld) [Volume fraction] 38.2 % Low 40-54 [facility] Hemoglobin measurementOrdere d By: Kira Lerma on 10-08-2024 Hemoglobin (Bld) [Mass/Vol] 13.3 g/dL 13.0-16.5 [facility] Immature granulocytes/100 WB C Auto (Bld)Ordered By: Kira Lerma on 10-08-2024 Immature granulocytes/100 WBC (Bld) 0.400 % 0.0-0.9 [facility] Comment on above: IG% - Immature Granu locytes (promyelocytes, myelocytes and metamyelocytes) > 1% indicates that a LEFT SHIFT is Present. L499.0043on 10-08-2024 Trop T High Sen 45 ng/L High <=22 [facility] Comment on above: Performed By: #### L 499.0043 ####[facility] [address] [place], [place], [address] Trop T High Sen Normal <=22 [facility] Comment on above: Result Comment: Canc elled via OM: Order cancelled - Patient discharged Performed By: #### L 499.0043 ####[facility] [address] [place], [place], [address] L509.7001on 10-08-2024 Procalcitonin 0.13 ng/mL High <=0.10 [facility] Comment on above: Result Comment: Inte rpretation:<0.10-0.25 ng/mL: Antibiotic therapy discouraged. Bacterialinfection unlikely.0.25-0.50 ng/mL: Antibiotic therapy encouraged. Bacterialinfection possible.>0.50 ng/mL: Antibiotic therapy strongly encouraged.Suggestive of presence of bacterial infection.PCT should always be interpreted in the clinical context ofthe patient. Therefore, clinicians should use the PCTresults in conjunction with other laboratory findings andclinical signs of the patient. Performed By: #### L 509.7001 ####[facility] [address] [place], [place], [address] Laboratory - Chemistry and C hemistry - challengeOrdered By: Kira Maria Guadalupe on 10-08-2024 AST [Catalytic activity/Vol] 34 U/L <38 [facility] Lymphocytes Auto (Unsp spec) [#/Vol]Ordered By: Ikra Maria Guadalupe on 10-08-2024 Lymphocytes (Bld) [#/Vol] 1.25 10*3/uL 0.83-4.51 [facility] Lymphocytes/100 WBC Auto (Un sp spec)Ordered By: Kira Maria Guadalupe on 10-08-2024 Lymphocytes/100 WBC (Bld) 16.7 % Low 19-41 [facility] MCV (mean corpuscular volume ) determinationOrdered By: Kira Maria Guadalupe on 10-08-2024 MCV (RBC) [Entitic vol] 89.5 fL 80-94 [facility] Mean corpuscular hemoglobin (MCH) determinationOrdered By: Kira Maria Guadalupe on 10-08-2024 MCH (RBC) [Entitic mass] 31.1 pg 27.0-32.0 [facility] Mean corpuscular hemoglobin concentration (MCHC) determinationOrdered By: Kira Lerma on 10-08-2024 MCHC (RBC) [Mass/Vol] 34.8 g/dL 32-36 [facility] Mean platelet volume determi nationOrdered By: Kira White on 10-08-2024 Platelet mean volume (Bld) [Entitic vol] 9.4 fL 6.2-12.0 [facility] Monocyte percentageOrdered B y: White on 10-08-2024 Monocytes/100 WBC (Bld) 10.1 % High 0-10 [facility] Neutrophil percentageOrdered By: White on 10-08-2024 Neutrophils/100 WBC (Bld) 71.6 % High 47-70 [facility] No Panel InformationOrdered By: Kira Maria Guadalupe on 10-08-2024 34 U/L <38 [facility] Nucleated red blood cell per centageOrdered By: White on 10-08-2024 Nucleated RBC/100 WBC (Bld) [Ratio] 0 % 0-5 [facility] Platelet countOrdered By: Celine vinod Maria Guadalupe on 10-08-2024 Platelets (Bld) [#/Vol] 177 10*3/uL 150-450 [facility] Potassium (Unsp spec) [Mass/ Vol]Ordered By: Bernabe Casey on 10-08-2024 Potassium [Moles/Vol] 3.2 mmol/L Low 3.3-5.1 [facility] Comment on above: Hemolysis present, R esults could be affected. Potassium measurement (mass/ volume)Ordered By: Bernabe Casey on 10-08-2024 Potassium (Unsp spec) [Mass/Vol] 3.2 mmol/L Low 3.3-5.1 [facility] RBC Auto (Bld) [#/Vol]Ordere d By: Kira Lerma on 10-08-2024 RBC (Bld) [#/Vol] 4.27 10*6/uL Low 4.6-6.2 [facility] Serum creatinine measurement (mass/volume)Ordered By: Bernabe Casey on 10-08-2024 Creatinine [Mass/Vol] 1.81 mg/dL High 0.70-1.20 [facility] Serum globulin measurementOr dered By: Kira Lerma on 10-08-2024 Globulin (S) [Mass/Vol] 3.1 g/dL 2.2-4.2 [facility] Serum glucose measurement (m ass/volume)Ordered By: Bernabe Casey on 10-08-2024 Glucose [Mass/Vol] 239 mg/dL High 70-99 [facility] Serum or plasma alanine de la paz otransferase (ALT) measurementOrdered By: Kira Lerma on 10-08-2024 ALT [Catalytic activity/Vol] 34 U/L <47 [facility] Serum or plasma albumin jason urement (mass/volume)Ordered By: Kira Lerma on 10-08-2024 Albumin [Mass/Vol] 3.9 g/dL 3.4-4.8 [facility] Serum or plasma albumin/glob ulin mass ratioOrdered By: Kira Lerma on 10-08-2024 Albumin/Globulin [Mass ratio] 1.3 {ratio} 0.9-2.4 [facility] Serum or plasma alkaline ina sphatase measurementOrdered By: Kira Lerma on 10-08-2024 ALP [Catalytic activity/Vol] 119 U/L 40-129 [facility] Serum or plasma calcium jason urement (mass/volume)Ordered By: Bernabe Casey on 10-08-2024 Calcium [Mass/Vol] 9.0 mg/dL 7.6-11.0 [facility] Serum or plasma urea nitroge n measurement (mass/volume)Ordered By: Bernabe Casey on 10-08-2024 Urea nitrogen [Mass/Vol] 27 mg/dL High 4-19 [facility] Sodium levelOrdered By: Bernabe Casey on 10-08-2024 Sodium [Moles/Vol] 132 mmol/L Low 133-145 [facility] Total proteinOrdered By: Rema Lerma on 10-08-2024 Protein [Mass/Vol] 7.0 g/dL 5.9-8.4 [facility] Troponin T.cardiac High sens itivity method [Mass/Vol]Ordered By: Kira Lerma on 10-08-2024 Troponin T High Sensitivity 4 Hour 45 ng/L High <22 [facility] Troponin T.cardiac [Mass/vol ume] in Serum or Plasma by High sensitivity methodOrdered By: Kira Lerma 10-08-2024 Troponin T.cardiac High sensitivity method [Mass/Vol] 45 ng/L High <22 [facility] White blood cell (WBC) count Ordered By: Kira Lerma on 10-08-2024 WBC (Bld) [#/Vol] 7.5 10*3/uL 4.4-11.0 [facility] 12 Lead EKGon 10-07-2024 12 Lead EKG Normal [facility] Absolute neutrophil countOrd ered By: Catracho Donohue on 10-07-2024 Neutrophils (Bld) [#/Vol] 5.5 10*3/uL 2.0-7.7 [facility] Anion gap in Serum or Plasma Ordered By: Catracho Donohue on 10-07-2024 Anion gap [Moles/Vol] 18 mmol/L High 5-15 [facility] BUN/creatinine ratioOrdered By: Ctaracho Donohue on 10-07-2024 Urea nitrogen/Creatinine [Mass ratio] 13.9 mg/mg 10-20 [facility] Basophil percentageOrdered B y: Catracho Donohue on 10-07-2024 Basophils/100 WBC (Bld) 0.4 % 0-1 [facility] Bilirubin Test strip Ql (U)O rdered By: Catracho Donohue on 10-07-2024 Bilirubin Ql (U) Negative Negative [facility] Bilirubin, totalOrdered By: Catracho Donohue on 10-07-2024 Bilirubin [Mass/Vol] 1.04 mg/dL 0.00-1.30 [facility] Brain/Head without Contrasto n 10-07-2024 Brain/Head without Contrast Normal [facility] CBC W/Diff, Automatedon Absolute Lymph 1.49 X10 3/uL Normal 0.83-4.51 [facility] Comment on above: Performed By: #### L 500.4050, L100.0100 ####[facility] [address] [place], [address] Absolute Neut 5.5 X10 3/uL Normal 2.0-7.7 [facility] Comment on above: Performed By: #### L 500.4050, L100.0100 ####[facility] [address] [place], [address] Basophils/100 WBC (Bld) 0.4 % Normal 0-1 [facility] Comment on above: Performed By: #### L 500.4050, L100.0100 ####[facility] [address] [place], [address] Eosinophils/100 WBC (Bld) 1.5 % Normal 0-5 [facility] Comment on above: Performed By: #### L 500.4050, L100.0100 ####[facility] [address] [place], [address] Erythrocyte distribution width (RBC) [Ratio] 13.0 % Normal 11.6-14.6 [facility] Comment on above: Performed By: #### L 500.4050, L100.0100 ####[facility] [address] [place], [address] Hematocrit (Bld) [Volume fraction] 40.1 % Normal 40-54 [facility] Comment on above: Performed By: #### L 500.4050, L100.0100 ####[facility] [address] [place], [address] Hemoglobin (Bld) [Mass/Vol] 14.1 g/dL Normal 13.0-16.5 [facility] Comment on above: Performed By: #### L 500.4050, L100.0100 ####[facility] [address] [place], [address] IG% 0.400 Normal 0.0-0.9 [facility] Comment on above: Result Comment: IG% - Immature Granulocytes (promyelocytes, myelocytes andmetamyelocytes) > 1% indicates that a LEFT SHIFT is Present. Performed By: #### L 500.4050, L100.0100 ####[facility] [address] [place], [address] Lymphocytes/100 WBC (Bld) 18.6 % Low 19-41 [facility] Comment on above: Performed By: #### L 500.4050, L100.0100 ####[facility] [address] [place], [address] MCH (RBC) [Entitic mass] 31.3 pg Normal 27.0-32.0 [facility] Comment on above: Performed By: #### L 500.4050, L100.0100 ####[facility] [address] [place], [address] MCHC (RBC) [Mass/Vol] 35.2 g/dL Normal 32-36 [facility] Comment on above: Performed By: #### L 500.4050, L100.0100 ####[facility] [address] [place], [address] MCV (RBC) [Entitic vol] 89.1 fL Normal 80-94 [facility] Comment on above: Performed By: #### L 500.4050, L100.0100 ####[facility] [address] [place], [address] Monocytes/100 WBC (Bld) 11.1 % High 0-10 [facility] Comment on above: Performed By: #### L 500.4050, L100.0100 ####[facility] [address] [place], [address] Neutrophils/100 WBC (Bld) 68.0 % Normal 47-70 [facility] Comment on above: Performed By: #### L 500.4050, L100.0100 ####[facility] [address] [place], [address] Nucleated RBC (Bld) [#/Vol] 0 10*3/uL Normal 0-5 [facility] Comment on above: Performed By: #### L 500.4050, L100.0100 ####[facility] [address] [place], [address] Platelet mean volume (Bld) [Entitic vol] 9.9 fL Normal 6.2-12.0 [facility] Comment on above: Performed By: #### L 500.4050, L100.0100 ####[facility] [address] [place], [address] Platelets (Bld) [#/Vol] 196 10*3/uL Normal 150-450 [facility] Comment on above: Performed By: #### L 500.4050, L100.0100 ####[facility] [address] [place], [address] RBC (Bld) [#/Vol] 4.50 10*6/uL Low 4.6-6.2 [facility] Comment on above: Performed By: #### L 500.4050, L100.0100 ####[facility] [address] [place], [address] RDW SD 42.5 fl Normal 35.1-43.9 [facility] Comment on above: Performed By: #### L 500.4050, L100.0100 ####[facility] [address] [place], [address] WBC (Bld) [#/Vol] 8.0 10*3/uL Normal 4.4-11.0 [facility] Comment on above: Performed By: #### L 500.4050, L100.0100 ####[facility] [address] [place], [address] Carbon dioxide, total [Moles /volume] in Central venous bloodOrdered By: Catracho Donohue on 10-07-2024 CO2 [Moles/Vol] 26.0 mmol/L 21.0-32.0 [facility] Chest PA and Lateralon 10-07 Chest PA and Lateral Normal [facility] Chloride assayOrdered By: Casandra Donohue on 10-07-2024 Chloride [Moles/Vol] 88 mmol/L Low 98-108 [facility] Comprehensive Metabolic Prof ilon 10-07-2024 Albumin [Mass/Vol] 4.3 g/dL Normal 3.4-4.8 [facility] Comment on above: Performed By: #### L 500.4050, L100.0100 ####[facility] [address] [place], [address] Albumin/Globulin [Mass ratio] 1.4 {ratio} Normal 0.9-2.4 [facility] Comment on above: Performed By: #### L 500.4050, L100.0100 ####[facility] [address] [place], [address] ALK PHOS 133 U/L High 40-129 [facility] Comment on above: Performed By: #### L 500.4050, L100.0100 ####[facility] [address] [place], [address] ALT [Catalytic activity/Vol] 36 U/L Normal <=46 [facility] Comment on above: Performed By: #### L 500.4050, L100.0100 ####[facility] [address] [place], [address] AST [Catalytic activity/Vol] 35 U/L Normal <=37 [facility] Comment on above: Performed By: #### L 500.4050, L100.0100 ####[facility] [address] [place], [address] Bilirubin [Mass/Vol] 1.04 mg/dL Normal 0.00-1.30 [facility] Comment on above: Performed By: #### L 500.4050, L100.0100 ####[facility] [address] [place], [address] BUN/CRE 13.9 RATIO Normal 10-20 [facility] Comment on above: Performed By: #### L 500.4050, L100.0100 ####[facility] [address] [place], [address] Calcium [Mass/Vol] 9.6 mg/dL Normal 7.6-11.0 [facility] Comment on above: Performed By: #### L 500.4050, L100.0100 ####[facility] [address] [place], [address] Chloride [Moles/Vol] 88 mmol/L Low 98-108 [facility] Comment on above: Performed By: #### L 500.4050, L100.0100 ####[facility] [address] [place], [address] CO2 [Moles/Vol] 26.0 mmol/L Normal 21.0-32.0 [facility] Comment on above: Performed By: #### L 500.4050, L100.0100 ####[facility] [address] [place], [address] Creatinine [Mass/Vol] 1.95 mg/dL High 0.70-1.20 [facility] Comment on above: Performed By: #### L 500.4050, L100.0100 ####[facility] [address] [place], [address] ECRCL 26.84 ml/min Low 50-250 [facility] Comment on above: Performed By: #### L 500.4050, L100.0100 ####[facility] [address] [place], [address] GAP 18 High 5-15 [facility] Comment on above: Performed By: #### L 500.4050, L100.0100 ####[facility] [address] [place], [address] GFR/1.73 sq M.predicted among non-blacks MDRD (S/P/Bld) [Vol rate/Area] 34 mL/min/{1.73_m2} Low >60 [facility] Comment on above: Result Comment: mL/m in/1.73m2 CKD-EPI Creatinine Equation (2020) Performed By: #### L 500.4050, L100.0100 ####[facility] [address] [place], [address] Globulin (S) [Mass/Vol] 3.1 g/dL Normal 2.2-4.2 [facility] Comment on above: Performed By: #### L 500.4050, L100.0100 ####[facility] [address] [place], [address] Glucose [Mass/Vol] 118 mg/dL High 70-99 [facility] Comment on above: Performed By: #### L 500.4050, L100.0100 ####[facility] [address] [place], [address] Potassium [Moles/Vol] 2.9 mmol/L Low 3.3-5.1 [facility] Comment on above: Performed By: #### L 500.4050, L100.0100 ####[facility] [address] [place], [address] Sodium [Moles/Vol] 131 mmol/L Low 133-145 [facility] Comment on above: Performed By: #### L 500.4050, L100.0100 ####[facility] [address] [place], [address] T PROT 7.4 g/dL Normal 5.9-8.4 [facility] Comment on above: Performed By: #### L 500.4050, L100.0100 ####[facility] [address] [place], [address] Urea nitrogen [Mass/Vol] 27 mg/dL High 4-19 [facility] Comment on above: Performed By: #### L 500.4050, L100.0100 ####[facility] [address] [place], [address] Emergency Department Summary on 10-07-2024 Emergency Department Summary Normal [facility] Eosinophil percentageOrdered By: Catracho Donohue on 10-07-2024 Eosinophils/100 WBC (Bld) 1.5 % 0-5 [facility] Epithelial cells.squamous LM Ql (Urine sed)Ordered By: Catracho Donohue on 10-07-2024 Epithelial cells.squamous LM.HPF (Urine sed) [#/Area] 0 /[HPF] 0-5 [facility] Erythrocyte distribution wid th ratioOrdered By: Catracho Donohue on 10-07-2024 Erythrocyte distribution width (RBC) [Ratio] 13.0 % 11.6-14.6 [facility] Erythrocyte distribution wid th standard deviationOrdered By: Catracho Donohue on 10-07-2024 Erythrocyte distribution width (RBC) [Entitic vol] 42.5 fL 35.1-43.9 [facility] Estimation of creatinine leela aranceOrdered By: Catracho Donohue on 10-07-2024 Estimated Creatinine Clearance Calc 26.84 ml/min Low 50-250 [facility] GFR/1.73 sq M.predicted christopher g non-blacks MDRD (S/P/Bld) [Vol rate/Area]Ordered By: Catracho Donohue on 10-07-2024 Estimated GFR (MDRD) Non-Af Amer 34 Low >60 [facility] Comment on above: mL/min/1.73m2 CKD-EP I Creatinine Equation (2020) Glucose Ql (U)Ordered By: Casandra Donohue on 10-07-2024 Urine Glucose (UA) Normal mg/dl Normal [facility] H AND P Exam - Hospitaliston 10-07-2024 H&P Exam - Hospitalist Normal [facility] Hematocrit Auto (Bld) [Volum e fraction]Ordered By: Catracoh Donohue on 10-07-2024 Hematocrit (Bld) [Volume fraction] 40.1 % 40-54 [facility] Hemoglobin measurementOrdere d By: Catracho Donohue on 10-07-2024 Hemoglobin (Bld) [Mass/Vol] 14.1 g/dL 13.0-16.5 [facility] Immature granulocytes/100 WB C Auto (Bld)Ordered By: Catracho Donohue on 10-07-2024 Immature granulocytes/100 WBC (Bld) 0.400 % 0.0-0.9 [facility] Comment on above: IG% - Immature Granu locytes (promyelocytes, myelocytes and metamyelocytes) > 1% indicates that a LEFT SHIFT is Present. Influenza virus A and B and SARS-CoV-2 (COVID-19) and Respiratory syncytial virus RNAOrdered By: Catracho Donohue on 10-07-2024 SARS-CoV-2 (COVID-19) RNA ADA+probe Ql (Unsp spec) [facility] Ketones Test strip Ql (U)Ord ered By: Catracho Donohue on 10-07-2024 Ketones Ql (U) Negative Negative [facility] L499.0042on 10-07-2024 Trop T High Sen 46 ng/L High <=22 [facility] Comment on above: Performed By: #### L 499.0042 ####[facility] [address] [place], [address] L501.4021on 10-07-2024 Trop T High Sen 46 ng/L High <=22 [facility] Comment on above: Performed By: #### L 501.4021 ####[facility] [address] [place], [address] Laboratory - Chemistry and C hemistry - challengeOrdered By: Catracho Donohue on 10-07-2024 AST [Catalytic activity/Vol] 35 U/L <38 [facility] Lymphocytes Auto (Unsp spec) [#/Vol]Ordered By: Catracho Donohue on 10-07-2024 Lymphocytes (Bld) [#/Vol] 1.49 10*3/uL 0.83-4.51 [facility] Lymphocytes/100 WBC Auto (Un sp spec)Ordered By: Catracho Donohue on 10-07-2024 Lymphocytes/100 WBC (Bld) 18.6 % Low 19-41 [facility] M100.678on 10-07-2024 M100.678 SARS-CoV-2 (COVID 19 ) Negative INFLUENZA A Negative INFLUENZA B Negative RSV PCR Negative Normal [facility] Comment on above: Performed By: #### M 100.678 ####[facility] [address] [place], [place], [id number] MCV (mean corpuscular volume ) determinationOrdered By: Catracho Donohue on 10-07-2024 MCV (RBC) [Entitic vol] 89.1 fL 80-94 [facility] Magnesiumon 10-07-2024 Magnesium [Mass/Vol] 2.4 mg/dL High 1.5-2.2 [facility] Comment on above: Order Comment: Comme nts: may add to ED labs Performed By: #### L 501.5200 ####[facility] [address] [place], [place], [id number] Magnesium (Unsp spec) [Mass/ Vol]Ordered By: Kira Lerma on 10-07-2024 Magnesium [Mass/Vol] 2.4 mg/dL High 1.5-2.2 [facility] Magnesium measurement (mass/ volume)Ordered By: Kira Lerma on 10-07-2024 Magnesium (Unsp spec) [Mass/Vol] 2.4 mg/dL High 1.5-2.2 [facility] Mean corpuscular hemoglobin (MCH) determinationOrdered By: Catracho Donohue on 10-07-2024 MCH (RBC) [Entitic mass] 31.3 pg 27.0-32.0 [facility] Mean corpuscular hemoglobin concentration (MCHC) determinationOrdered By: Catracho Donohue on 10-07-2024 MCHC (RBC) [Mass/Vol] 35.2 g/dL 32-36 [facility] Mean platelet volume determi nationOrdered By: Catracho Donohue on 10-07-2024 Platelet mean volume (Bld) [Entitic vol] 9.9 fL 6.2-12.0 [facility] Microscopic analysis of urin e for red blood cells (RBC)Ordered By: Catracho Donohue on 10-07-2024 Urine RBC 0-5 SEEN /hpf 0-5 [facility] Monocyte percentageOrdered B y: Catracho Donohue on 10-07-2024 Monocytes/100 WBC (Bld) 11.1 % High 0-10 [facility] Mucus LM Ql (Urine sed)Order ed By: Catracho Donohue on 10-07-2024 Mucus Ql (Urine sed) 0 SEEN /hpf [facility] Neutrophil percentageOrdered By: Catracho Donohue on 10-07-2024 Neutrophils/100 WBC (Bld) 68.0 % 47-70 [facility] Nitrite Test strip Ql (U)Ord ered By: Catracho Donohue on 10-07-2024 Nitrite Ql (U) Negative Negative [facility] No Panel InformationOrdered By: Kira Lerma on 10-07-2024 Procalcitonin 0.13 ng/mL High <0.11 [facility] Comment on above: Interpretation:<0.10 -0.25 ng/mL: Antibiotic therapy discouraged. Bacterial infection unlikely.0.25-0.50 ng/mL: Antibiotic therapy encouraged. Bacterial infection possible.>0.50 ng/mL: Antibiotic therapy strongly encouraged. Suggestive of presence of bacterial infection.PCT should always be interpreted in the clinical context of the patient. Therefore, clinicians should use the PCT results in conjunction with other laboratory findings and clinical signs of the patient. 0.13 ng/mL High <0.11 [facility] [facility] No Panel InformationOrdered By: Catracho Donohue on 10-07-2024 Troponin T High Sensitivity 46 ng/L High <22 [facility] 46 ng/L High <22 [facility] Nucleated red blood cell per centageOrdered By: Catracho Donohue on 10-07-2024 Nucleated RBC/100 WBC (Bld) [Ratio] 0 % 0-5 [facility] Platelet countOrdered By: Casandra Donohue on 10-07-2024 Platelets (Bld) [#/Vol] 196 10*3/uL 150-450 [facility] Potassium (Unsp spec) [Mass/ Vol]Ordered By: Catracho Donohue on 10-07-2024 Potassium [Moles/Vol] 2.9 mmol/L Low 3.3-5.1 [facility] Protein Test strip Ql (U)Ord ered By: Catracho Donohue on 10-07-2024 Protein Ql (U) 100 mg/dl High Negative [facility] RBC Auto (Bld) [#/Vol]Ordere d By: Catracho Donohue on 10-07-2024 RBC (Bld) [#/Vol] 4.50 10*6/uL Low 4.6-6.2 [facility] Serum creatinine measurement (mass/volume)Ordered By: Catracho Donohue on 10-07-2024 Creatinine [Mass/Vol] 1.95 mg/dL High 0.70-1.20 [facility] Serum globulin measurementOr dered By: Catracho Donohue on 10-07-2024 Globulin (S) [Mass/Vol] 3.1 g/dL 2.2-4.2 [facility] Serum glucose measurement (m ass/volume)Ordered By: Catracho Donohue on 10-07-2024 Glucose [Mass/Vol] 118 mg/dL High 70-99 [facility] Serum or plasma alanine de la paz otransferase (ALT) measurementOrdered By: Catracho Donohue on 10-07-2024 ALT [Catalytic activity/Vol] 36 U/L <47 [facility] Serum or plasma albumin jason urement (mass/volume)Ordered By: Catracho Donohue on 10-07-2024 Albumin [Mass/Vol] 4.3 g/dL 3.4-4.8 [facility] Serum or plasma albumin/glob ulin mass ratioOrdered By: Catracho Donohue on 10-07-2024 Albumin/Globulin [Mass ratio] 1.4 {ratio} 0.9-2.4 [facility] Serum or plasma alkaline ina sphatase measurementOrdered By: Catracho Donohue on 10-07-2024 ALP [Catalytic activity/Vol] 133 U/L High 40-129 [facility] Serum or plasma calcium jason urement (mass/volume)Ordered By: Catracho Donohue on 10-07-2024 Calcium [Mass/Vol] 9.6 mg/dL 7.6-11.0 [facility] Serum or plasma urea nitroge n measurement (mass/volume)Ordered By: Catracho Donohue on 10-07-2024 Urea nitrogen [Mass/Vol] 27 mg/dL High 4-19 [facility] Sodium levelOrdered By: Hussein Donohue on 10-07-2024 Sodium [Moles/Vol] 131 mmol/L Low 133-145 [facility] Squamous epithelial cells de tection in urine sediment by light microscopyOrdered By: Catracho Donohue on 10-07-2024 Epithelial cells.squamous LM Ql (Urine sed) 0 SEEN /hpf 0-5 [facility] Total proteinOrdered By: Kenzie Donohue on 10-07-2024 Protein [Mass/Vol] 7.4 g/dL 5.9-8.4 [facility] Troponin T.cardiac High sens itivity method [Mass/Vol]Ordered By: Catracho Donohue on 10-07-2024 Troponin T High Sensitivity 2 Hour 46 ng/L High <22 [facility] Troponin T.cardiac [Mass/vol ume] in Serum or Plasma by High sensitivity methodOrdered By: Catracho Donohue on 10-07-2024 Troponin T.cardiac High sensitivity method [Mass/Vol] 46 ng/L High <22 [facility] Urinalysis, Completeon 10-07 RBC 0-5 SEEN Normal 0-5 [facility] Comment on above: Order Comment: CLEAN CATCH Performed By: #### L 400.0001 ####[facility] [address] [place], [place], [phone] WBC 0-5 SEEN Normal 0-5 [facility] Comment on above: Order Comment: CLEAN CATCH Performed By: #### L [id number] ####[facility] [address] [place], [address] BILIRUBIN URINE Negative Normal Negative [facility] Comment on above: Order Comment: CLEAN CATCH Performed By: #### L [id number] ####[facility] [address] [place], [address] Clarity (U) Clear Normal Clear [facility] Comment on above: Order Comment: CLEAN CATCH Performed By: #### L [id number] ####[facility] [address] [place], [address] Color (U) Straw Normal Yellow [facility] Comment on above: Order Comment: CLEAN CATCH Performed By: #### L [id number] ####[facility] [address] [facility] [address] GLUCOSE, UR Normal Normal Normal [facility] Comment on above: Order Comment: CLEAN CATCH Performed By: #### L [id number] ####[facility] [address] [facility] [address] KETONE UR Negative Normal Negative [facility] Comment on above: Order Comment: CLEAN CATCH Performed By: #### L [id number] ####[facility] [address] [place] [id number] LEUK ESTERASE Negative Normal Negative [facility] Comment on above: Order Comment: CLEAN CATCH Performed By: #### L [id number] ####[facility] [address] [place] [address] Nitrite Ql (U) Negative Normal Negative [facility] Comment on above: Order Comment: CLEAN CATCH Performed By: #### L [id number] ####[facility] [address] [facility] [address] OCCULT BLOOD-UR 25 /ul Abnormal Negative [facility] Comment on above: Order Comment: CLEAN CATCH Performed By: #### L [id number] ####[facility] [address] [facility] [address] pH UR 7.0 Normal 5.0 - 8.0 [facility] Comment on above: Order Comment: CLEAN CATCH Performed By: #### L [id number] ####[facility] [address] [facility] [address] PROT DIPSTX 100 mg/dl Abnormal Negative [facility] Comment on above: Order Comment: CLEAN CATCH Performed By: #### L [id number] ####[facility] [address] [place] [id number] SP.GR. DIPSTX 1.005 Normal 1.002-1.03 0 [facility] Comment on above: Order Comment: CLEAN CATCH Performed By: #### L [id number] ####[facility] [address] [place], [address] UROBILI Normal Normal Normal [facility] Comment on above: Order Comment: CLEAN CATCH Performed By: #### L [id number] ####[facility] [address] [place], [address] BACTERIA 0 SEEN Normal None Seen [facility] Comment on above: Order Comment: CLEAN CATCH Performed By: #### L [id number] ####[facility] [address] [place], [address] EPI,SQUAMOUS 0 SEEN Normal 0-5 [facility] Comment on above: Order Comment: CLEAN CATCH Performed By: #### L [id number] ####[facility] [address] [place], [address] Mucus Ql (Urine sed) 0 SEEN Normal [facility] Comment on above: Order Comment: CLEAN CATCH Performed By: #### L [id number] ####[facility] [address] [place], [address] Urine blood detectionOrdered By: Catracho Donohue on 10-07-2024 Urine Occult Blood 25 /ul High Negative [facility] Urine clarityOrdered By: Kenzie Donohue on 10-07-2024 Clarity (U) Clear Clear [facility] Urine color determinationOrd ered By: Catracho Donohue on 10-07-2024 Color (U) Straw Yellow [facility] Urine glucose detectionOrder ed By: Catracho Donohue on 10-07-2024 Glucose Ql (U) Normal mg/dl Normal [facility] Urine leukocyte esterase det ection by dipstickOrdered By: Cartacho Donohue on 10-07-2024 Leukocyte esterase Test strip Ql (U) Negative Negative [facility] Urine pHOrdered By: Catracho Donohue on 10-07-2024 pH (U) 7.0 [pH] 5.0 - 8.0 [facility] Urine sediment bacteria coun t by microscopy (number/high power field)Ordered By: Catracho Donohue on 10-07-2024 Bacteria LM.HPF (Urine sed) [#/Area] 0 /[HPF] None Seen [facility] Urine specific gravity measu rementOrdered By: Catracho Donohue on 10-07-2024 Specific gravity (U) [Rel density] 1.005 1.002-1.03 0 [facility] Urine urobilinogen measureme ntOrdered By: Catracho Donohue on 10-07-2024 Urobilinogen Ql (U) Normal mg/dl Normal [facility] Urobilinogen Ql (U)Ordered B y: Catracho Donohue on 10-07-2024 Urine Urobilinogen Normal mg/dl Normal [facility] White blood cell (WBC) count Ordered By: Catracho Donohue on 10-07-2024 WBC (Bld) [#/Vol] 8.0 10*3/uL 4.4-11.0 [facility] White blood cell countOrdere d By: Catracho Donohue on 10-07-2024 Urine WBC 0-5 SEEN /hpf 0-5 [facility] White blood cell count 0-5 SEEN /hpf 0-5 [facility] Basic Metabolic Profile (BMP )on 08-13-2024 BUN/CRE 19.7 RATIO Normal 10-20 [facility] Comment on above: Performed By: #### L [id number] ####[facility] [address] [place], [place], [id number] CA,Total 8.6 mg/dL Normal 8.5-10.1 [facility] Comment on above: Performed By: #### L [id number] ####[facility] [address] [place], [place], [phone] Chloride [Moles/Vol] 105 mmol/L Normal 98-107 [facility] Comment on above: Performed By: #### L [id number] ####[facility] [address] [place], [address] CO2 [Moles/Vol] 27.0 mmol/L Normal 21.0-32.0 [facility] Comment on above: Performed By: #### L [id number] ####[facility] [address] [place], [address] Creatinine [Mass/Vol] 1.22 mg/dL Normal 0.70-1.30 [facility] Comment on above: Result Comment: The validity of the calculated GFR GFRAA in patients over70 years has not been determined. Clinical correlation isessential. Performed By: #### L [id number] ####[facility] [address] [place], [address] EST GFR - AA 73 mL/min Normal >60 [facility] Comment on above: Result Comment: Afri can Swazi GFR Calc Performed By: #### L [id number] ####[facility] [address] [place], [address] GAP 3 Low 5-15 [facility] Comment on above: Performed By: #### L [id number] ####[facility] [address] [place], [address] GFR/1.73 sq M.predicted among non-blacks MDRD (S/P/Bld) [Vol rate/Area] 60 mL/min/{1.73_m2} Normal >60 [facility] Comment on above: Result Comment: Non- GFR Calc Performed By: #### L 500.2500 ####[facility] [address] [place], [address] Glucose [Mass/Vol] 284 mg/dL High 74-106 [facility] Comment on above: Result Comment: Gluc ose result greater than or equal to 200 mg/dLsuggests DIABETES MELLITUS per A.D.A. criteria. Performed By: #### L [id number] ####[facility] [address] [place], [address] Potassium [Moles/Vol] 4.5 mmol/L Normal 3.5-5.1 [facility] Comment on above: Performed By: #### L [id number] ####[facility] [address] [place], [address] Sodium [Moles/Vol] 135 mmol/L Low 136-145 [facility] Comment on above: Performed By: #### L 500.2500 ####[facility] [address] [place], [address] Urea nitrogen [Mass/Vol] 24 mg/dL High 7-18 [facility] Comment on above: Performed By: #### L [id number] ####[facility] [address] [place], [place], [phone] Blood urea nitrogen (BUN)/cr eatinine ratioOrdered By: Harper Sanchez on 08-13-2024 Urea nitrogen/Creatinine [Mass ratio] 19.7 mg/mg 10-20 [facility] Carbon dioxide measurementOr dered By: Harper Sanchez on 08-13-2024 CO2 [Moles/Vol] 27.0 mmol/L 21.0-32.0 [facility] Chloride measurementOrdered By: Harper Sanchez on 08-13-2024 Chloride [Moles/Vol] 105 mmol/L 98-107 [facility] Estimated glomerular filtrat ion rate (GFR) AmericanOrdered By: Harper Sanchez on 08-13-2024 Estimated GFR (MDRD) Amer 73 mL/min >60 [facility] Comment on above: GFR Calc Glomerular filtration rate ( GFR) estimationOrdered By: Harper Sanchez on 08-13-2024 Estimated GFR (MDRD) Non-Af Amer 60 mL/min >60 [facility] Comment on above: Non- GFR Calc Glucose measurementOrdered B y: Harper Sanchez on 08-13-2024 Glucose [Mass/Vol] 284 mg/dL High 74-106 [facility] Comment on above: Glucose result great er than or equal to 200 mg/dLsuggests DIABETES MELLITUS per A.D.A. criteria. Potassium measurementOrdered By: Harper Sanchez on 08-13-2024 Potassium [Moles/Vol] 4.5 mmol/L 3.5-5.1 [facility] Serum anion gap measurementO rdered By: Harper Sanchez on 08-13-2024 Anion gap [Moles/Vol] 3 mmol/L Low 5-15 [facility] Serum or plasma calcium jason urement (mass/volume)Ordered By: Harper Sanchez on 08-13-2024 Calcium [Mass/Vol] 8.6 mg/dL 8.5-10.1 [facility] Serum or plasma creatinine m easurement (mass/volume)Ordered By: Harper Sanchez on 08-13-2024 Creatinine [Mass/Vol] 1.22 mg/dL 0.70-1.30 [facility] Comment on above: The validity of the calculated GFR & GFRAA in patients over 70 years has not been determined. Clinical correlation is essential. Serum or plasma urea nitroge n measurement (mass/volume)Ordered By: Harper Sanchez on 08-13-2024 Urea nitrogen [Mass/Vol] 24 mg/dL High 7-18 [facility] Sodium levelOrdered By: Isac Sanchez on 08-13-2024 Sodium [Moles/Vol] 135 mmol/L Low 136-145 [facility] Basic Metabolic Profile (BMP )on 08-03-2024 BUN/CRE 17.4 RATIO Normal 10-20 [facility] Comment on above: Performed By: #### L 500.2500 ####[facility] [address] [place], [place], [phone] CA,Total 8.7 mg/dL Normal 8.5-10.1 [facility] Comment on above: Performed By: #### L 500.2500 ####[facility] [address] [place], [address] Chloride [Moles/Vol] 105 mmol/L Normal 98-107 [facility] Comment on above: Performed By: #### L [id number] ####[facility] [address] [place], [address] CO2 [Moles/Vol] 29.0 mmol/L Normal 21.0-32.0 [facility] Comment on above: Performed By: #### L [id number] ####[facility] [address] [place], [address] Creatinine [Mass/Vol] 1.44 mg/dL High 0.70-1.30 [facility] Comment on above: Result Comment: The validity of the calculated GFR GFRAA in patients over70 years has not been determined. Clinical correlation isessential. Performed By: #### L 500.2500 ####[facility] [address] [place], [address] EST GFR - AA 60 mL/min Normal >60 [facility] Comment on above: Result Comment: Afri can Swazi GFR Calc Performed By: #### L 500.2500 ####[facility] [address] [place], [address] GAP 4 Low 5-15 [facility] Comment on above: Performed By: #### L [id number] ####[facility] [address] [place], [address] GFR/1.73 sq M.predicted among non-blacks MDRD (S/P/Bld) [Vol rate/Area] 50 mL/min/{1.73_m2} Low >60 [facility] Comment on above: Result Comment: Non- GFR Calc Performed By: #### L 500.2500 ####[facility] [address] [place], [address] Glucose [Mass/Vol] 194 mg/dL High 74-106 [facility] Comment on above: Result Comment: Fast ing Glucose result greater than or equal to 126 mg/dLsuggests DIABETES MELLITUS per A.D.A. criteria. Performed By: #### L 500.2500 ####[facility] [address] [place], [address] Potassium [Moles/Vol] 4.3 mmol/L Normal 3.5-5.1 [facility] Comment on above: Performed By: #### L 500.2500 ####[facility] [address] [place], [address] Sodium [Moles/Vol] 138 mmol/L Normal 136-145 [facility] Comment on above: Performed By: #### L 500.2500 ####[facility] [address] [place], [address] Urea nitrogen [Mass/Vol] 25 mg/dL High 7-18 [facility] Comment on above: Performed By: #### L 500.2500 ####[facility] [address] [place], [address] Blood urea nitrogen (BUN)/cr eatinine ratioOrdered By: Harper Sanchez on 08-03-2024 Urea nitrogen/Creatinine [Mass ratio] 17.4 mg/mg 10-20 [facility] Carbon dioxide measurementOr dered By: Harper Sanchez on 08-03-2024 CO2 [Moles/Vol] 29.0 mmol/L 21.0-32.0 [facility] Chloride measurementOrdered By: Harper Sanchez on 08-03-2024 Chloride [Moles/Vol] 105 mmol/L 98-107 [facility] Estimated glomerular filtrat ion rate (GFR) AmericanOrdered By: Harper Sanchez on 08-03-2024 Estimated GFR (MDRD) Amer 60 mL/min >60 [facility] Comment on above: GFR Calc Glomerular filtration rate ( GFR) estimationOrdered By: Harper Sanchez on 08-03-2024 Estimated GFR (MDRD) Non-Af Amer 50 mL/min Low >60 [facility] Comment on above: Non- GFR Calc Glucose measurementOrdered B y: Harper Sanchez on 08-03-2024 Glucose [Mass/Vol] 194 mg/dL High 74-106 [facility] Comment on above: Fasting Glucose resu lt greater than or equal to 126 mg/dL suggests DIABETES MELLITUS per A.D.A. criteria. Potassium measurementOrdered By: Harper Sanchez on 08-03-2024 Potassium [Moles/Vol] 4.3 mmol/L 3.5-5.1 [facility] Serum anion gap measurementO rdered By: Harper Sanchez on 08-03-2024 Anion gap [Moles/Vol] 4 mmol/L Low 5-15 [facility] Serum or plasma calcium jason urement (mass/volume)Ordered By: Harper Sanchez on 08-03-2024 Calcium [Mass/Vol] 8.7 mg/dL 8.5-10.1 [facility] Serum or plasma creatinine m easurement (mass/volume)Ordered By: Harper Sanchez on 08-03-2024 Creatinine [Mass/Vol] 1.44 mg/dL High 0.70-1.30 [facility] Comment on above: The validity of the calculated GFR & GFRAA in patients over 70 years has not been determined. Clinical correlation is essential. Serum or plasma urea nitroge n measurement (mass/volume)Ordered By: Harper Sanchez on 08-03-2024 Urea nitrogen [Mass/Vol] 25 mg/dL High 7-18 [facility] Sodium levelOrdered By: Isac Sanchez on 08-03-2024 Sodium [Moles/Vol] 138 mmol/L 136-145 [facility] Cardiology Visit Reporton Cardiology Visit Report Normal [facility] Absolute lymphocyte countOrd ered By: Jose Enrique Finney on 10-18-2023 Lymphocytes Auto (Unsp spec) [#/Vol] 1.12 10*3/uL 0.83-4.51 [facility] Automated lymphocyte count a s percentage of total leukocytesOrdered By: Jose Enrique Finney on 10-18-2023 Lymphocytes/100 WBC Auto (Unsp spec) 18.2 % 19-41 [facility] Basophil percentageOrdered B y: Jose Enrique Finney on 10-18-2023 Basophil percentage 0 SEEN /hpf 0-5 [facility] Basophil percentage 3.6 mg/dL 2.5-4.9 [facility] Basophils/100 WBC (Bld) 0.8 % 0-1 [facility] Bilirubin [Mass/Vol] 1.00 mg/dL 0.20-1.00 [facility] Comment on above: For patients on eltr ombopag therapy, use of Dimension Runge TBIL is not recommended. Chloride [Moles/Vol] 105 mmol/L 98-107 [facility] Cholesterol [Mass/Vol] 77 mg/dL <200 [facility] Comment on above: <200 mg/dL Desirable 200-240 mg/dL Borderline >240 mg/dL High Risk Eosinophils/100 WBC (Bld) 2.6 % 0-5 [facility] Glucose [Mass/Vol] 110 mg/dL 74-106 [facility] Comment on above: Fasting Glucose resu lt from 100 to 125 mg/dL suggests IMPAIRED HOMEOSTASIS per A.D.A. criteria. Hemoglobin (Bld) [Mass/Vol] 12.0 g/dL 13.0-16.5 [facility] Monocytes/100 WBC (Bld) 9.9 % 0-10 [facility] Neutrophils (Bld) [#/Vol] 4.2 10*3/uL 2.0-7.7 [facility] Neutrophils/100 WBC (Bld) 68.3 % 47-70 [facility] Potassium [Moles/Vol] 4.1 mmol/L 3.5-5.1 [facility] Protein [Mass/Vol] 6.7 g/dL 6.4-8.2 [facility] Sodium [Moles/Vol] 139 mmol/L 136-145 [facility] Triglyceride [Mass/Vol] 72 mg/dL <199 [facility] Comment on above: The drugs N-Acetylcy steine and Metamizole may falsely depress this assay.Serum Triglycerides Reference Interval Normal <150 mg/dL Borderline high 150 - 199 mg/dL High 200 - 499 mg/dL Very High > or = 500 mg/dL WBC (Bld) [#/Vol] 6.2 10*3/uL 4.4-11.0 [facility] Bilirubin Test strip Ql (U)O rdered By: Jose Enrique Finney on 10-18-2023 Bilirubin Ql (U) Negative Negative [facility] Determination of erythrocyte mean corpuscular volume (MCV)Ordered By: Jose Enrique Finney on 10-18-2023 MCV (RBC) [Entitic vol] 95.4 fL 80-94 [facility] Erythrocyte distribution wid th ratioOrdered By: Jose Enrique Finney on 10-18-2023 Erythrocyte distribution width (RBC) [Ratio] 13.8 % 11.6-14.6 [facility] Erythrocyte distribution wid th standard deviationOrdered By: Jose Enrique Finney on 10-18-2023 Erythrocyte distribution width (RBC) [Entitic vol] 48.6 fL 35.1-43.9 [facility] Hematocrit Auto (Bld) [Volum e fraction]Ordered By: Jose Enrique Finney on 10-18-2023 Hematocrit (Bld) [Volume fraction] 37.0 % 40-54 [facility] Immature granulocytes/100 WB C Auto (Bld)Ordered By: Jose Enrique Finney on 10-18-2023 Immature granulocytes/100 WBC (Bld) 0.200 % 0.0-0.9 [facility] Comment on above: IG% - Immature Granu locytes (promyelocytes, myelocytes and metamyelocytes) > 1% indicates that a LEFT SHIFT is Present. Ketones Test strip Ql (U)Ord ered By: Jose Enrique Finney on 10-18-2023 Ketones Ql (U) Negative Negative [facility] Laboratory - Chemistry and C hemistry - challengeOrdered By: Jose Enrique Finney on 10-18-2023 Albumin/Globulin [Mass ratio] 1.0 {ratio} 0.9-2.4 [facility] ALP [Catalytic activity/Vol] 136 U/L 45-117 [facility] ALT [Catalytic activity/Vol] 34 U/L 16-61 [facility] Cholesterol in HDL [Mass/Vol] 26 mg/dL >40 [facility] Comment on above: The drugs N-Acetylcy steine and Metamizole may falsely depress this assay. Reference Range HDL <40 mg/dL Low HDL Cholesterol HDL >or= 60 mg/dL High HDL Cholesterol Cholesterol in LDL [Mass/Vol] 37 mg/dL 0-130 [facility] CO2 [Moles/Vol] 28.0 mmol/L 21.0-32.0 [facility] Globulin (S) [Mass/Vol] 3.4 g/dL 2.2-4.2 [facility] Magnesium [Mass/Vol] 2.4 mg/dL 1.6-2.6 [facility] Urea nitrogen/Creatinine [Mass ratio] 17.6 mg/mg 10-20 [facility] Laboratory - Hematology and Cell countsOrdered By: Jose Enrique Finney on 10-18-2023 MCH (RBC) [Entitic mass] 30.9 pg 27.0-32.0 [facility] MCHC (RBC) [Mass/Vol] 32.4 g/dL 32-36 [facility] Nucleated RBC/100 WBC (Bld) [Ratio] 0 % 0-5 [facility] Platelet mean volume (Bld) [Entitic vol] 10.0 fL 6.2-12.0 [facility] Platelets (Bld) [#/Vol] 197 10*3/uL 150-450 [facility] Mucus LM Ql (Urine sed)Order ed By: Jose Enrique Finney on 10-18-2023 Mucus Ql (Urine sed) 0 SEEN /hpf [facility] Nitrite Test strip Ql (U)Ord ered By: Jose Enrique Finney on 10-18-2023 Nitrite Ql (U) Negative Negative [facility] No Panel InformationOrdered By: Jose Enrique Finney on 10-18-2023 Estimated GFR (MDRD) Amer 75 mL/min >60 [facility] Comment on above: GFR Calc Estimated GFR (MDRD) Non-Af Amer 62 mL/min >60 [facility] Comment on above: Non- GFR Calc Parathyroid Hormone (Intact) 28.2 pg/mL 18.4-80.1 [facility] Urine Microalbumin/Creatinin e Ratio 294.8 mg/g CRE <30 [facility] Urine RBC 0-5 SEEN /hpf 0-5 [facility] Vitamin D 25-Hydroxy 59.9 ng/mL [facility] Comment on above: Vitamin D 25(OH) Sta tus Range Deficiency <20 ng/mL (50nmol/L) Insufficiency 20 - 30 ng/mL (50 - 75 nmol/L) Sufficiency 30 - 100 ng/mL (75 - 250 nmol/L) Toxicity >100 ng/mL (>250 nmol/L) VLDL Cholesterol 14 mg/dL 5-40 [facility] Protein Test strip Ql (U)Ord ered By: Jose Enrique Finney on 10-18-2023 Protein Ql (U) 30 mg/dl Negative [facility] RBC Auto (Bld) [#/Vol]Ordere d By: Jose Enrique Finney on 10-18-2023 RBC (Bld) [#/Vol] 3.88 10*6/uL 4.6-6.2 [facility] Serum or plasma calcium jason urement (mass/volume)Ordered By: Jose Enrique Finney on 10-18-2023 Calcium [Mass/Vol] 8.9 mg/dL 8.5-10.1 [facility] Serum or plasma creatinine m easurement (mass/volume)Ordered By: Jose Enrique Finney on 10-18-2023 Creatinine [Mass/Vol] 1.19 mg/dL 0.70-1.30 [facility] Comment on above: The validity of the calculated GFR & GFRAA in patients over 70 years has not been determined. Clinical correlation is essential. Serum or plasma urea nitroge n measurement (mass/volume)Ordered By: Jose Enrique Finney on 10-18-2023 Urea nitrogen [Mass/Vol] 21 mg/dL 7-18 [facility] Squamous epithelial cells de tection in urine sediment by light microscopyOrdered By: Jose Enrique Finney on 10-18-2023 Epithelial cells.squamous LM Ql (Urine sed) 0 SEEN /hpf 0-5 [facility] Thin prep Papanicolaou smear with manual screeningOrdered By: Jose Enrique Finney on 10-18-2023 Thin prep Papanicolaou smear with manual screening 3.3 g/dL 3.2-5.0 [facility] Thin prep Papanicolaou smear with manual screening 23 U/L 15-37 [facility] Thin prep Papanicolaou smear with manual screening 6 5-15 [facility] Thin prep Papanicolaou smear with manual screening 204.0 mg/L NO RANGE EST. [facility] Urine blood detectionOrdered By: Jose Enrique Finney on 10-18-2023 RBC Ql (U) 10 /ul Negative [facility] Urine clarityOrdered By: Remington Finney on 10-18-2023 Clarity (U) Clear Clear [facility] Urine color determinationOrd ered By: Jose Enrique Finney on 10-18-2023 Color (U) Yellow Yellow [facility] Urine creatinine measurement (mass/volume)Ordered By: Jose Enrique Finney on 10-18-2023 Creatinine (U) [Mass/Vol] 69.20 mg/dL NO RANGE EST. [facility] Urine glucose detectionOrder ed By: Jose Enrique Finney on 10-18-2023 Glucose Ql (U) 100 mg/dl Normal [facility] Urine leukocyte esterase det ection by dipstickOrdered By: Jose Enrique Finney on 10-18-2023 Leukocyte esterase Test strip Ql (U) Negative Negative [facility] Urine pHOrdered By: Jose Enrique borrero on 10-18-2023 pH (U) 6.5 [pH] 5.0 - 8.0 [facility] Urine sediment bacteria coun t by microscopy (number/high power field)Ordered By: Jose Enrique Finney on 10-18-2023 Bacteria LM.HPF (Urine sed) [#/Area] 0 /[HPF] None Seen [facility] Urine specific gravity measu rementOrdered By: Jose Enrique Finney on 10-18-2023 Specific gravity (U) [Rel density] 1.010 1.002-1.03 0 [facility] Urine urobilinogen measureme ntOrdered By: Jose Enrique Finney on 10-18-2023 Urobilinogen Ql (U) Normal mg/dl Normal [facility] Whole blood hemoglobin A1c/t otal hemoglobin ratio (mass fraction)Ordered By: Jose Enrique Finney on 10-18-2023 HbA1c (Bld) [Mass fraction] 9.7 % 3.8-5.6 [facility] Comment on above: Normal < 5.7 % Predi abetic 5.7 - 6.4 % Diabetic >or= 6.5 % Please note range changes. Absolute lymphocyte countOrd ered By: Jose Enrique Finney on 06-30-2023 Lymphocytes Auto (Unsp spec) [#/Vol] 1.13 10*3/uL 0.83-4.51 [facility] Basophil percentageOrdered B y: Jose Enrique Finney on 06-30-2023 Basophil percentage 0-5 SEEN /hpf 0-5 [facility] Basophil percentage 3.7 mg/dL 2.5-4.9 [facility] Basophils/100 WBC (Bld) 0.5 % 0-1 [facility] Bilirubin [Mass/Vol] 1.10 mg/dL 0.20-1.00 [facility] Comment on above: For patients on eltr ombopag therapy, use of Dimension Runge TBIL is not recommended. Chloride [Moles/Vol] 105 mmol/L 98-107 [facility] Cholesterol [Mass/Vol] 106 mg/dL <200 [facility] Comment on above: <200 mg/dL Desirable 200-240 mg/dL Borderline >240 mg/dL High Risk Eosinophils/100 WBC (Bld) 1.8 % 0-5 [facility] Glucose [Mass/Vol] 90 mg/dL 74-106 [facility] Neutrophils (Bld) [#/Vol] 3.9 10*3/uL 2.0-7.7 [facility] Neutrophils/100 WBC (Bld) 68.1 % 47-70 [facility] Potassium [Moles/Vol] 4.2 mmol/L 3.5-5.1 [facility] Protein [Mass/Vol] 7.6 g/dL 6.4-8.2 [facility] Sodium [Moles/Vol] 141 mmol/L 136-145 [facility] Triglyceride [Mass/Vol] 101 mg/dL <199 [facility] Comment on above: The drugs N-Acetylcy steine and Metamizole may falsely depress this assay.Serum Triglycerides Reference Interval Normal <150 mg/dL Borderline high 150 - 199 mg/dL High 200 - 499 mg/dL Very High > or = 500 mg/dL WBC (Bld) [#/Vol] 5.7 10*3/uL 4.4-11.0 [facility] Bilirubin Test strip Ql (U)O rdered By: Jose Enrique Finney on 06-30-2023 Bilirubin Ql (U) Negative Negative [facility] Blood erythrocytes count (nu mber/volume)Ordered By: Jose Enrique Finney on 06-30-2023 RBC (Bld) [#/Vol] 4.49 10*6/uL 4.6-6.2 [facility] Blood hemoglobin measurement (mass/volume)Ordered By: Jose Enrique Finney on 06-30-2023 Hemoglobin (Bld) [Mass/Vol] 13.5 g/dL 13.0-16.5 [facility] Blood lymphocytes/100 leukoc ytesOrdered By: Jose Enrique Finney on 06-30-2023 Lymphocytes/100 WBC (Bld) 19.9 % 19-41 [facility] Blood monocytes/100 leukocyt esOrdered By: Jose Enrique Finney on 06-30-2023 Monocytes/100 WBC (Bld) 9.5 % 0-10 [facility] Blood platelet mean volumeOr dered By: Jose Enrique Finney on 06-30-2023 Platelet mean volume (Bld) [Entitic vol] 9.8 fL 6.2-12.0 [facility] Determination of erythrocyte mean corpuscular volume (MCV)Ordered By: Jose Enrique Finney on 06-30-2023 MCV (RBC) [Entitic vol] 96.4 fL 80-94 [facility] Hematocrit Auto (Bld) [Volum e fraction]Ordered By: Jose Enrique Finney on 06-30-2023 Hematocrit (Bld) [Volume fraction] 43.3 % 40-54 [facility] Ketones Test strip Ql (U)Ord ered By: Jose Enrique Finney on 06-30-2023 Ketones Ql (U) Negative Negative [facility] Laboratory - Chemistry and C hemistry - challengeOrdered By: Jose Enrique Finney on 06-30-2023 ALP [Catalytic activity/Vol] 131 U/L 45-117 [facility] ALT [Catalytic activity/Vol] 33 U/L 16-61 [facility] CO2 [Moles/Vol] 30.0 mmol/L 21.0-32.0 [facility] Globulin (S) [Mass/Vol] 3.9 g/dL 2.2-4.2 [facility] Urea nitrogen/Creatinine [Mass ratio] 16.1 mg/mg 10-20 [facility] Laboratory - Hematology and Cell countsOrdered By: Jose Enrique Finney on 06-30-2023 Erythrocyte distribution width (RBC) [Entitic vol] 54.6 fL 35.1-43.9 [facility] Erythrocyte distribution width (RBC) [Ratio] 15.3 % 11.6-14.6 [facility] Immature granulocytes/100 WBC (Bld) 0.200 % 0.0-0.9 [facility] Comment on above: IG% - Immature Granu locytes (promyelocytes, myelocytes and metamyelocytes) > 1% indicates that a LEFT SHIFT is Present. MCH (RBC) [Entitic mass] 30.1 pg 27.0-32.0 [facility] Nucleated RBC/100 WBC (Bld) [Ratio] 0 % 0-5 [facility] MCHC Auto (RBC) [Mass/Vol]Or dered By: Jose Enrique Finney on 06-30-2023 MCHC (RBC) [Mass/Vol] 31.2 g/dL 32-36 [facility] Mucus LM Ql (Urine sed)Order ed By: Jose Enrique Finney on 06-30-2023 Mucus Ql (Urine sed) 0 SEEN /hpf [facility] Nitrite Test strip Ql (U)Ord ered By: Jose Enrique Finney on 06-30-2023 Nitrite Ql (U) Negative Negative [facility] No Panel InformationOrdered By: Jose Enrique Finney on 06-30-2023 Estimated GFR (MDRD) Amer 72 mL/min >60 [facility] Comment on above: GFR Calc Estimated GFR (MDRD) Non-Af Amer 59 mL/min >60 [facility] Comment on above: Non- GFR Calc Parathyroid Hormone (Intact) 35.6 pg/mL 18.4-80.1 [facility] Vitamin D 25-Hydroxy 52.8 ng/mL [facility] Comment on above: Vitamin D 25(OH) Sta tus Range Deficiency <20 ng/mL (50nmol/L) Insufficiency 20 - 30 ng/mL (50 - 75 nmol/L) Sufficiency 30 - 100 ng/mL (75 - 250 nmol/L) Toxicity >100 ng/mL (>250 nmol/L) Platelets bldOrdered By: Remington Finney on 06-30-2023 Platelets (Bld) [#/Vol] 201 10*3/uL 150-450 [facility] Protein Test strip Ql (U)Ord ered By: Jose Enrique Finney on 06-30-2023 Protein Ql (U) 30 mg/dl Negative [facility] Serum or plasma albumin jason urement (mass/volume)Ordered By: Jose Enrique Finney on 06-30-2023 Albumin [Mass/Vol] 3.7 g/dL 3.2-5.0 [facility] Serum or plasma albumin/glob ulin mass ratioOrdered By: Jose Enrique Finney on 06-30-2023 Albumin/Globulin [Mass ratio] 0.9 {ratio} 0.9-2.4 [facility] Serum or plasma calcium jason urement (mass/volume)Ordered By: Jose Enrique Finney on 06-30-2023 Calcium [Mass/Vol] 9.0 mg/dL 8.5-10.1 [facility] Serum or plasma cholesterol in HDL measurement (mass/volume)Ordered By: Jose Enrique Finney on 06-30-2023 Cholesterol in HDL [Mass/Vol] 33 mg/dL >40 [facility] Comment on above: The drugs N-Acetylcy steine and Metamizole may falsely depress this assay. Reference Range HDL <40 mg/dL Low HDL Cholesterol HDL >or= 60 mg/dL High HDL Cholesterol Serum or plasma cholesterol in VLDL measurement (mass/volume)Ordered By: Jose Enrique Finney on 06-30-2023 Cholesterol in VLDL [Mass/Vol] 20 mg/dL 5-40 [facility] Serum or plasma creatinine m easurement (mass/volume)Ordered By: Jose Enrique Finney on 06-30-2023 Creatinine [Mass/Vol] 1.24 mg/dL 0.70-1.30 [facility] Comment on above: The validity of the calculated GFR & GFRAA in patients over 70 years has not been determined. Clinical correlation is essential. Serum or plasma low density lipoprotein (LDL) cholesterol measurement (mass/volume)Ordered By: Jose Enrique Finney on 06-30-2023 Cholesterol in LDL [Mass/Vol] 53 mg/dL 0-130 [facility] Serum or plasma urea nitroge n measurement (mass/volume)Ordered By: Jose Enrique Finney on 06-30-2023 Urea nitrogen [Mass/Vol] 20 mg/dL 7-18 [facility] Squamous epithelial cells de tection in urine sediment by light microscopyOrdered By: Jose Enrique Finney on 06-30-2023 Epithelial cells.squamous LM Ql (Urine sed) 0-5 SEEN /hpf 0-5 [facility] Thin prep Papanicolaou smear with manual screeningOrdered By: Jose Enrique Finney on 06-30-2023 Thin prep Papanicolaou smear with manual screening 29 U/L 15-37 [facility] Thin prep Papanicolaou smear with manual screening 6 5-15 [facility] Urine blood detectionOrdered By: Jose Enrique Finney on 06-30-2023 RBC Ql (U) 25 /ul Negative [facility] RBC Ql (U) 0-5 SEEN /hpf 0-5 [facility] Urine clarityOrdered By: Remington Finney on 06-30-2023 Clarity (U) Clear Clear [facility] Urine color determinationOrd ered By: Jose Enrique Finney on 06-30-2023 Color (U) Yellow Yellow [facility] Urine creatinine measurement (mass/volume)Ordered By: Jose Enrique Finney on 06-30-2023 Creatinine (U) [Mass/Vol] 93.40 mg/dL NO RANGE EST. [facility] Urine glucose detectionOrder ed By: Jose Enrique Finney on 06-30-2023 Glucose Ql (U) Normal mg/dl Normal [facility] Urine leukocyte esterase det ection by dipstickOrdered By: Jose Enrique Finney on 06-30-2023 Leukocyte esterase Test strip Ql (U) Negative Negative [facility] Urine pHOrdered By: Jose Enrique borrero on 06-30-2023 pH (U) 6.0 [pH] 5.0 - 8.0 [facility] Urine protein measurement (m ass/volume)Ordered By: Jose Enrique Finney on 06-30-2023 Protein (U) [Mass/Vol] 87.7 mg/dL 0.0-11.8 [facility] Urine protein/creatinine mas s ratioOrdered By: Jose Enrique Finney on 06-30-2023 Protein/Creatinine (U) [Mass ratio] 939 mg/g CRE 0-200 [facility] Urine sediment bacteria coun t by microscopy (number/high power field)Ordered By: Jose Enrique Finney on 06-30-2023 Bacteria LM.HPF (Urine sed) [#/Area] 0 /[HPF] None Seen [facility] Urine specific gravity measu rementOrdered By: Jose Enrique Finney on 06-30-2023 Specific gravity (U) [Rel density] 1.015 1.002-1.03 0 [facility] Urobilinogen Auto test strip Ql (U)Ordered By: Jose Enrique Finney on 06-30-2023 Urobilinogen Ql (U) Normal mg/dl Normal [facility] Whole blood hemoglobin A1c/t otal hemoglobin ratio (mass fraction)Ordered By: Jose Enrique Finney on 06-30-2023 HbA1c (Bld) [Mass fraction] 9.1 % 3.8-5.6 [facility] Comment on above: Normal < 5.7 % Predi abetic 5.7 - 6.4 % Diabetic >or= 6.5 % Please note range changes. Anaerobic cultureOrdered By: Aliya Jones on 04-13-2023 Bacteria identified Anaer cx Nom (Unsp spec) No anaerobic bacteria isolated. [facility] Bacteria identified Anaer cx Nom (Unsp spec) No anaerobic bacteria isolated. [facility] Bacteria identified Cx Nom ( Wound)Ordered By: Aliya Jones on 04-13-2023 Wound Culture Serratia marcescens [facility] Wound Culture Serratia marcescens [facility] Gram stain for investigation of transfusion reactionOrdered By: Aliya Jones on 04-13-2023 Microscopic observation Gram stain Nom (Unsp spec) [facility] Microscopic observation Gram stain Nom (Unsp spec) [facility] Absolute lymphocyte countOrd ered By: Jose Enrique Finney on 03-29-2023 Lymphocytes Auto (Unsp spec) [#/Vol] 0.93 10*3/uL 0.83-4.51 [facility] Basophil percentageOrdered B y: Jose Enrique Finney on 03-29-2023 Basophil percentage 0 SEEN /hpf 0-5 [facility] Basophil percentage 3.5 mg/dL 2.5-4.9 [facility] Basophils/100 WBC (Bld) 0.6 % 0-1 [facility] Bilirubin [Mass/Vol] 0.70 mg/dL 0.20-1.00 [facility] Comment on above: For patients on eltr ombopag therapy, use of Dimension Runge TBIL is not recommended. Chloride [Moles/Vol] 105 mmol/L 98-107 [facility] Cholesterol [Mass/Vol] 94 mg/dL <200 [facility] Comment on above: <200 mg/dL Desirable 200-240 mg/dL Borderline >240 mg/dL High Risk Eosinophils/100 WBC (Bld) 1.8 % 0-5 [facility] Glucose [Mass/Vol] 154 mg/dL 74-106 [facility] Comment on above: Fasting Glucose resu lt greater than or equal to 126 mg/dL suggests DIABETES MELLITUS per A.D.A. criteria. Neutrophils (Bld) [#/Vol] 3.5 10*3/uL 2.0-7.7 [facility] Neutrophils/100 WBC (Bld) 70.6 % 47-70 [facility] Potassium [Moles/Vol] 4.3 mmol/L 3.5-5.1 [facility] Protein [Mass/Vol] 6.9 g/dL 6.4-8.2 [facility] Sodium [Moles/Vol] 137 mmol/L 136-145 [facility] Triglyceride [Mass/Vol] 78 mg/dL <199 [facility] Comment on above: The drugs N-Acetylcy steine and Metamizole may falsely depress this assay.Serum Triglycerides Reference Interval Normal <150 mg/dL Borderline high 150 - 199 mg/dL High 200 - 499 mg/dL Very High > or = 500 mg/dL WBC (Bld) [#/Vol] 5.0 10*3/uL 4.4-11.0 [facility] Bilirubin Test strip Ql (U)O rdered By: Jose Enrique Finney on 03-29-2023 Bilirubin Ql (U) Negative Negative [facility] Blood erythrocytes count (nu mber/volume)Ordered By: Jose Enrique Finney on 03-29-2023 RBC (Bld) [#/Vol] 3.89 10*6/uL 4.6-6.2 [facility] Blood hemoglobin measurement (mass/volume)Ordered By: Jose Enrique Finney on 03-29-2023 Hemoglobin (Bld) [Mass/Vol] 11.7 g/dL 13.0-16.5 [facility] Blood lymphocytes/100 leukoc ytesOrdered By: Jose Enrique Finney on 03-29-2023 Lymphocytes/100 WBC (Bld) 18.6 % 19-41 [facility] Blood monocytes/100 leukocyt esOrdered By: Jose Enrique Finney on 03-29-2023 Monocytes/100 WBC (Bld) 8.0 % 0-10 [facility] Blood platelet mean volumeOr dered By: Jose Enrique Finney on 03-29-2023 Platelet mean volume (Bld) [Entitic vol] 9.9 fL 6.2-12.0 [facility] Determination of erythrocyte mean corpuscular volume (MCV)Ordered By: Jose Enrique Finney on 03-29-2023 MCV (RBC) [Entitic vol] 96.9 fL 80-94 [facility] Hematocrit Auto (Bld) [Volum e fraction]Ordered By: Jose Enrique Finney on 03-29-2023 Hematocrit (Bld) [Volume fraction] 37.7 % 40-54 [facility] Ketones Test strip Ql (U)Ord ered By: Jose Enrique Finney on 03-29-2023 Ketones Ql (U) Negative Negative [facility] Laboratory - Chemistry and C hemistry - challengeOrdered By: Jose Enrique Finney on 03-29-2023 ALP [Catalytic activity/Vol] 167 U/L 45-117 [facility] ALT [Catalytic activity/Vol] 55 U/L 16-61 [facility] CO2 [Moles/Vol] 27.0 mmol/L 21.0-32.0 [facility] Globulin (S) [Mass/Vol] 3.5 g/dL 2.2-4.2 [facility] Urea nitrogen/Creatinine [Mass ratio] 16.7 mg/mg 10-20 [facility] Laboratory - Hematology and Cell countsOrdered By: Jose Enrique Finney on 03-29-2023 Erythrocyte distribution width (RBC) [Entitic vol] 51.9 fL 35.1-43.9 [facility] Erythrocyte distribution width (RBC) [Ratio] 15.0 % 11.6-14.6 [facility] Immature granulocytes/100 WBC (Bld) 0.400 % 0.0-0.9 [facility] Comment on above: IG% - Immature Granu locytes (promyelocytes, myelocytes and metamyelocytes) > 1% indicates that a LEFT SHIFT is Present. MCH (RBC) [Entitic mass] 30.1 pg 27.0-32.0 [facility] Nucleated RBC/100 WBC (Bld) [Ratio] 0 % 0-5 [facility] MCHC Auto (RBC) [Mass/Vol]Or dered By: Jose Enrique Finney on 03-29-2023 MCHC (RBC) [Mass/Vol] 31.0 g/dL 32-36 [facility] Mucus LM Ql (Urine sed)Order ed By: Jose Enrique Finney on 03-29-2023 Mucus Ql (Urine sed) 0 SEEN /hpf [facility] Nitrite Test strip Ql (U)Ord ered By: Jose Enrique Finney on 03-29-2023 Nitrite Ql (U) Negative Negative [facility] No Panel InformationOrdered By: Jose Enrique Finney on 03-29-2023 Estimated GFR (MDRD) Amer 84 mL/min >60 [facility] Comment on above: GFR Calc Estimated GFR (MDRD) Non-Af Amer 70 mL/min >60 [facility] Comment on above: Non- GFR Calc Parathyroid Hormone (Intact) 64.7 pg/mL 18.4-80.1 [facility] Vitamin D 25-Hydroxy 51.0 ng/mL [facility] Comment on above: Vitamin D 25(OH) Sta tus Range Deficiency <20 ng/mL (50nmol/L) Insufficiency 20 - 30 ng/mL (50 - 75 nmol/L) Sufficiency 30 - 100 ng/mL (75 - 250 nmol/L) Toxicity >100 ng/mL (>250 nmol/L) Platelets bldOrdered By: Remington Finney on 03-29-2023 Platelets (Bld) [#/Vol] 206 10*3/uL 150-450 [facility] Protein Test strip Ql (U)Ord ered By: Jose Enrique Finney on 03-29-2023 Protein Ql (U) 15 mg/dl Negative [facility] Serum or plasma albumin jason urement (mass/volume)Ordered By: Jose Enrique Finney on 03-29-2023 Albumin [Mass/Vol] 3.4 g/dL 3.2-5.0 [facility] Serum or plasma albumin/glob ulin mass ratioOrdered By: Jose Enrique Finney on 03-29-2023 Albumin/Globulin [Mass ratio] 1.0 {ratio} 0.9-2.4 [facility] Serum or plasma calcium jason urement (mass/volume)Ordered By: Jose Enrique Finney on 03-29-2023 Calcium [Mass/Vol] 8.6 mg/dL 8.5-10.1 [facility] Serum or plasma cholesterol in HDL measurement (mass/volume)Ordered By: Jose Enrique Finney on 03-29-2023 Cholesterol in HDL [Mass/Vol] 32 mg/dL >40 [facility] Comment on above: The drugs N-Acetylcy steine and Metamizole may falsely depress this assay. Reference Range HDL <40 mg/dL Low HDL Cholesterol HDL >or= 60 mg/dL High HDL Cholesterol Serum or plasma cholesterol in VLDL measurement (mass/volume)Ordered By: Jose Enrique Finney on 03-29-2023 Cholesterol in VLDL [Mass/Vol] 16 mg/dL 5-40 [facility] Serum or plasma creatinine m easurement (mass/volume)Ordered By: Jose Enrique Finney on 03-29-2023 Creatinine [Mass/Vol] 1.08 mg/dL 0.70-1.30 [facility] Comment on above: The validity of the calculated GFR & GFRAA in patients over 70 years has not been determined. Clinical correlation is essential. Serum or plasma low density lipoprotein (LDL) cholesterol measurement (mass/volume)Ordered By: Jose Enrique Finney on 03-29-2023 Cholesterol in LDL [Mass/Vol] 46 mg/dL 0-130 [facility] Serum or plasma urea nitroge n measurement (mass/volume)Ordered By: Jose Enrique Finney on 03-29-2023 Urea nitrogen [Mass/Vol] 18 mg/dL 7-18 [facility] Squamous epithelial cells de tection in urine sediment by light microscopyOrdered By: Jose Enrique Finney on 03-29-2023 Epithelial cells.squamous LM Ql (Urine sed) 0 SEEN /hpf 0-5 [facility] Thin prep Papanicolaou smear with manual screeningOrdered By: Jose Enrique Finney on 03-29-2023 Thin prep Papanicolaou smear with manual screening 27 U/L 15-37 [facility] Thin prep Papanicolaou smear with manual screening 5 5-15 [facility] Urine blood detectionOrdered By: Jose Enrique Finney on 03-29-2023 RBC Ql (U) Negative Negative [facility] RBC Ql (U) 0 SEEN /hpf 0-5 [facility] Urine clarityOrdered By: Remington Finney on 03-29-2023 Clarity (U) Clear Clear [facility] Urine color determinationOrd ered By: Jose Enrique Finney on 03-29-2023 Color (U) Yellow Yellow [facility] Urine creatinine measurement (mass/volume)Ordered By: Jose Enrique Finney on 03-29-2023 Creatinine (U) [Mass/Vol] 91.10 mg/dL NO RANGE EST. [facility] Urine glucose detectionOrder ed By: Jose Enrique Finney on 03-29-2023 Glucose Ql (U) 100 mg/dl Normal [facility] Urine leukocyte esterase det ection by dipstickOrdered By: Jose Enrique Finney on 03-29-2023 Leukocyte esterase Test strip Ql (U) Negative Negative [facility] Urine pHOrdered By: Jose Enrique borrero on 03-29-2023 pH (U) 6.0 [pH] 5.0 - 8.0 [facility] Urine protein measurement (m ass/volume)Ordered By: Jose Enrique Finney on 03-29-2023 Protein (U) [Mass/Vol] 19.7 mg/dL 0.0-11.8 [facility] Urine protein/creatinine mas s ratioOrdered By: Jose Enrique Finney on 03-29-2023 Protein/Creatinine (U) [Mass ratio] 216 mg/g CRE 0-200 [facility] Urine sediment bacteria coun t by microscopy (number/high power field)Ordered By: Jose Enrique Finney on 03-29-2023 Bacteria LM.HPF (Urine sed) [#/Area] 0 /[HPF] None Seen [facility] Urine specific gravity measu rementOrdered By: Jose Enrique Finney on 03-29-2023 Specific gravity (U) [Rel density] 1.015 1.002-1.03 0 [facility] Urobilinogen Auto test strip Ql (U)Ordered By: Jose Enrique Finney on 03-29-2023 Urobilinogen Ql (U) Normal mg/dl Normal [facility] Whole blood hemoglobin A1c/t otal hemoglobin ratio (mass fraction)Ordered By: Jose Enrique Finney on 03-29-2023 HbA1c (Bld) [Mass fraction] 11.5 % 3.8-5.6 [facility] Comment on above: Normal < 5.7 % Predi abetic 5.7 - 6.4 % Diabetic >or= 6.5 % Please note range changes. Anaerobic cultureOrdered By: Aliya Jones on 02-16-2023 Bacteria identified Anaer cx Nom (Unsp spec) No anaerobic bacteria isolated. [facility] Bacteria identified Cx Nom ( Wound)Ordered By: Aliya Jones on 02-16-2023 Wound Culture Staphylococcus epidermidis [facility] Gram stain for investigation of transfusion reactionOrdered By: Aliya Jones on 02-16-2023 Microscopic observation Gram stain Nom (Unsp spec) [facility] CNOVon 01-22-2023 CNOV Office Visit (UCWSTR ) JUAN DAVID HERNÁNDEZ ([id number]) 1940 M Date Time Provider Department 01/22/23 3:00 PM GURINDER CONNE[facility] During your visit today, we recorded the following information about you: Pulse Respiration Blood pressure Weight 68/minute 16/minute 102/60 67.6 kg YANIRA Porras 01/22/2023 3:24 PM Signed This note was created using Follozeriter. Subjective Juan David Hernández is a 82 year old male. HPI 82-year-old male presents for abrasion of left external ear. Patient states that yesterday he a tree branch fell and hit him in the left ear. He was seen by his primary care doctor and glue was applied. He states that is continued to see blood. He is on Eliquis. He did not lose consciousness. He is not having any significant pain. No drainage from the ear. It is bruised from yesterday. No other complaints. No past medical history on file. No past surgical history on file. ALLERGIES Atorvastatin, Azithromycin, Capitrol [Chloroxine], and Metolazone MEDICATIONS fluticasone (FLONASE) 50 mcg/actuation nasal spray Use in the nose. ELIQUIS 5 mg tab(s) Take 5 mg by mouth twice daily. aspirin 325 mg tablet once daily. TRUE METRIX GLUCOSE TEST STRIP test strip USE 1 (ONE) STRIP TO TEST BLOOD SUGAR THREE TIMES DAILY carvedilol (COREG) 12.5 mg tablet Take 12.5 mg by mouth twice daily. furosemide (LASIX) 20 mg tablet Take by mouth. glipiZIDE (GLUCOTROL XL) 10mg 24 hr tablet Take 10 mg by mouth. LEVEMIR FLEXPEN 100 unit/mL (3 mL) injection pen INJECT 30 UNITS SUBCUTANEOUSLY DAILY HUMALOG U-100 INSULIN 100 unit/mL injection INJECT 10 unit three times a day with meals isosorbide mononitrate ER (IMDUR) 30 mg 24 hr tablet Take 30 mg by mouth once daily. potassium chloride ER (KLOR-CON) 20 mEq tablet TAKE 1.5 TABLETS BY MOUTH TWICE DAILY for supplement rosuvastatin (CRESTOR) 40 mg tablet Take 40 mg by mouth once daily. tamsulosin (FLOMAX) 0.4 mg Take 0.4 mg by mouth once daily. No family history on file. Social History Tobacco Use Smoking status: Never Smokeless tobacco: Never Review of Systems Constitutional: Negative for chills and fever. HENT: Negative for congestion and sore throat. Respiratory: Negative for cough and shortness of breath. Gastrointestinal: Negative for diarrhea and vomiting. Skin: Positive for wound. Objective BP 102/60 Pulse 68 Resp 16 Wt 67.6 kg (149 lb) SpO2 98% Physical Exam Vitals and nursing note reviewed. Constitutional: General: He is not in acute distress. Appearance: Normal appearance. He is not toxic-appearing. HENT: Right Ear: Tympanic membrane and ear canal normal. Left Ear: Tympanic membrane and ear canal normal. Laceration present. Ears: Comments: Abrasion noted to left external ear with minimal oozing of blood. External ear is bruised as well. Canal normal. TM normal. It appears there is some dried glue around the area from PCP gluing it yesterday. Nose: Nose normal. Mouth/Throat: Mouth: Mucous membranes are moist. Eyes: Conjunctiva/sclera: Conjunctivae normal. Cardiovascular: Rate and Rhythm: Normal rate and regular rhythm. Pulmonary: Effort: Pulmonary effort is normal. Breath sounds: Normal breath sounds. Skin: General: Skin is warm and dry. Neurological: Mental Status: He is alert. Assessment and Plan ASSESSMENT/PLAN: 1. Abrasion of left ear, initial encounter - ICD9: 910.0, ICD10: S00.412A -Small amount of oozing blood from left external ear. -Wound cleansed with sterile water. -Surgicel applied. Bleeding controlled. -Gauze applied. -Patient has follow-up with PCP on Tuesday for wound recheck. Advised to keep this appointment. No signs of infection on exam. Diagnosis and treatment plan were discussed and questions were answered to the patient's satisfaction. Pt acknowledged understanding of concepts and follow up plan. Specific signs and symptoms that would indicate the need for higher level of care were discussed in detail warranting prompt ER evaluation. YANIRA Porras Allergies As of Date: 01/22/2023 Noted Allergy Reaction ATORVASTATIN 01/22/2023 7 - Swelling AZITHROMYCIN 01/22/2023 4 - Hives Comments: blisters CAPITROL (CHLOROXINE) 01/22/2023 7 - Swelling Comments: Tongue swelling METOLAZONE 01/22/2023 2 - Rash Comments: itching Date Reviewed: 01/22/2023 Reviewed by: Makenzie Brown LPN - Fully Assessed Reason for Visit: Trauma [112] Cmt: To left ear, seeping blood Primary Visit Diagnosis:Abrasion of left ear, initial encounter [S00.412A] Prescriptions as of 01/22/2023 - ELIQUIS 5 mg tab(s) Take 5 mg by mouth twice daily. - aspirin 325 mg tablet once daily. - TRUE METRIX GLUCOSE TEST STRIP test strip USE 1 (ONE) STRIP TO TEST BLOOD SUGAR THREE TIMES DAILY - carvedilol (COREG) 12.5 mg tablet Take 12.5 mg by mouth twice daily. - fluticasone (FLON (more content not included)... Normal [facility] Absolute lymphocyte countOrd ered By: Dr. Finney on 10-20-2022 Lymphocytes Auto (Unsp spec) [#/Vol] 1.06 10*3/uL 0.83-4.51 [facility] Basophil percentageOrdered B y: Dr. Finney on 10-20-2022 Basophil percentage 4.2 mg/dL 2.5-4.9 [facility] Basophils/100 WBC (Bld) 0.5 % 0-1 [facility] Bilirubin [Mass/Vol] 1.20 mg/dL 0.20-1.00 [facility] Comment on above: For patients on eltr ombopag therapy, use of Dimension Runge TBIL is not recommended. Chloride [Moles/Vol] 100 mmol/L 98-107 [facility] Cholesterol [Mass/Vol] 103 mg/dL <200 [facility] Comment on above: <200 mg/dL Desirable 200-240 mg/dL Borderline >240 mg/dL High Risk Eosinophils/100 WBC (Bld) 1.0 % 0-5 [facility] Glucose [Mass/Vol] 231 mg/dL 74-106 [facility] Comment on above: Glucose result great er than or equal to 200 mg/dLsuggests DIABETES MELLITUS per A.D.A. criteria. Neutrophils (Bld) [#/Vol] 5.5 10*3/uL 2.0-7.7 [facility] Neutrophils/100 WBC (Bld) 74.9 % 47-70 [facility] Potassium [Moles/Vol] 4.0 mmol/L 3.5-5.1 [facility] Protein [Mass/Vol] 7.4 g/dL 6.4-8.2 [facility] Sodium [Moles/Vol] 136 mmol/L 136-145 [facility] Triglyceride [Mass/Vol] 92 mg/dL <199 [facility] Comment on above: The drugs N-Acetylcy steine and Metamizole may falsely depress this assay.Serum Triglycerides Reference Interval Normal <150 mg/dL Borderline high 150 - 199 mg/dL High 200 - 499 mg/dL Very High > or = 500 mg/dL WBC (Bld) [#/Vol] 7.3 10*3/uL 4.4-11.0 [facility] Blood erythrocytes count (nu mber/volume)Ordered By: Dr. Finney on 10-20-2022 RBC (Bld) [#/Vol] 4.34 10*6/uL 4.6-6.2 [facility] Blood hemoglobin measurement (mass/volume)Ordered By: Dr. Finney on 10-20-2022 Hemoglobin (Bld) [Mass/Vol] 13.4 g/dL 13.0-16.5 [facility] Blood lymphocytes/100 leukoc ytesOrdered By: Dr. Finney on 10-20-2022 Lymphocytes/100 WBC (Bld) 14.5 % 19-41 [facility] Blood monocytes/100 leukocyt esOrdered By: Dr. Finney on 10-20-2022 Monocytes/100 WBC (Bld) 8.8 % 0-10 [facility] Blood platelet mean volumeOr dered By: Dr. Finney on 10-20-2022 Platelet mean volume (Bld) [Entitic vol] 10.2 fL 6.2-12.0 [facility] Determination of erythrocyte mean corpuscular volume (MCV)Ordered By: Dr. Finney on 10-20-2022 MCV (RBC) [Entitic vol] 95.2 fL 80-94 [facility] Hematocrit Auto (Bld) [Volum e fraction]Ordered By: Dr. Finney on 10-20-2022 Hematocrit (Bld) [Volume fraction] 41.3 % 40-54 [facility] Laboratory - Chemistry and C hemistry - challengeOrdered By: Dr. Finney on 10-20-2022 ALP [Catalytic activity/Vol] 140 U/L 45-117 [facility] ALT [Catalytic activity/Vol] 60 U/L 16-61 [facility] CO2 [Moles/Vol] 26.0 mmol/L 21.0-32.0 [facility] Globulin (S) [Mass/Vol] 3.5 g/dL 2.2-4.2 [facility] Magnesium [Mass/Vol] 2.5 mg/dL 1.6-2.6 [facility] Urea nitrogen/Creatinine [Mass ratio] 17.7 mg/mg 10-20 [facility] Laboratory - Hematology and Cell countsOrdered By: Dr. Finney on 10-20-2022 Erythrocyte distribution width (RBC) [Entitic vol] 49.3 fL 35.1-43.9 [facility] Erythrocyte distribution width (RBC) [Ratio] 14.0 % 11.6-14.6 [facility] Immature granulocytes/100 WBC (Bld) 0.300 % 0.0-0.9 [facility] Comment on above: IG% - Immature Granu locytes (promyelocytes, myelocytes and metamyelocytes) > 1% indicates that a LEFT SHIFT is Present. MCH (RBC) [Entitic mass] 30.9 pg 27.0-32.0 [facility] Nucleated RBC/100 WBC (Bld) [Ratio] 0 % 0-5 [facility] MCHC Auto (RBC) [Mass/Vol]Or dered By: Dr. Finney on 10-20-2022 MCHC (RBC) [Mass/Vol] 32.4 g/dL 32-36 [facility] No Panel InformationOrdered By: Dr. Finney on 10-20-2022 Estimated GFR (MDRD) Amer 68 mL/min >60 [facility] Comment on above: GFR Calc Estimated GFR (MDRD) Non-Af Amer 56 mL/min >60 [facility] Comment on above: Non- GFR Calc Parathyroid Hormone (Intact) 69.8 pg/mL 18.4-80.1 [facility] Urine Microalbumin/Creatinin e Ratio 93.3 mg/g CRE <30 [facility] Vitamin D 25-Hydroxy 58.2 ng/mL [facility] Comment on above: Vitamin D 25(OH) Sta tus Range Deficiency <20 ng/mL (50nmol/L) Insufficiency 20 - 30 ng/mL (50 - 75 nmol/L) Sufficiency 30 - 100 ng/mL (75 - 250 nmol/L) Toxicity >100 ng/mL (>250 nmol/L) Platelets bldOrdered By: Dr. Finney on 10-20-2022 Platelets (Bld) [#/Vol] 207 10*3/uL 150-450 [facility] Serum or plasma albumin jason urement (mass/volume)Ordered By: Dr. Finney on 10-20-2022 Albumin [Mass/Vol] 3.9 g/dL 3.2-5.0 [facility] Serum or plasma albumin/glob ulin mass ratioOrdered By: Dr. Finney on 10-20-2022 Albumin/Globulin [Mass ratio] 1.1 {ratio} 0.9-2.4 [facility] Serum or plasma calcium jason urement (mass/volume)Ordered By: Dr. Finney on 10-20-2022 Calcium [Mass/Vol] 9.2 mg/dL 8.5-10.1 [facility] Serum or plasma cholesterol in HDL measurement (mass/volume)Ordered By: Dr. Finney on 10-20-2022 Cholesterol in HDL [Mass/Vol] 34 mg/dL >40 [facility] Comment on above: The drugs N-Acetylcy steine and Metamizole may falsely depress this assay. Reference Range HDL <40 mg/dL Low HDL Cholesterol HDL >or= 60 mg/dL High HDL Cholesterol Serum or plasma cholesterol in VLDL measurement (mass/volume)Ordered By: Dr. Finney on 10-20-2022 Cholesterol in VLDL [Mass/Vol] 18 mg/dL 5-40 [facility] Serum or plasma creatinine m easurement (mass/volume)Ordered By: Dr. Finney on 10-20-2022 Creatinine [Mass/Vol] 1.30 mg/dL 0.70-1.30 [facility] Comment on above: The validity of the calculated GFR & GFRAA in patients over 70 years has not been determined. Clinical correlation is essential. Serum or plasma low density lipoprotein (LDL) cholesterol measurement (mass/volume)Ordered By: Dr. Finney on 10-20-2022 Cholesterol in LDL [Mass/Vol] 51 mg/dL 0-130 [facility] Serum or plasma urea nitroge n measurement (mass/volume)Ordered By: Dr. Finney on 10-20-2022 Urea nitrogen [Mass/Vol] 23 mg/dL 7-18 [facility] Thin prep Papanicolaou smear with manual screeningOrdered By: Dr. Finney on 10-20-2022 Thin prep Papanicolaou smear with manual screening 40 U/L 15-37 [facility] Thin prep Papanicolaou smear with manual screening 10 5-15 [facility] Thin prep Papanicolaou smear with manual screening 29.3 mg/L NO RANGE EST. [facility] Urine creatinine measurement (mass/volume)Ordered By: Dr. Finney on 10-20-2022 Creatinine (U) [Mass/Vol] 31.40 mg/dL NO RANGE EST. [facility] Whole blood hemoglobin A1c/t otal hemoglobin ratio (mass fraction)Ordered By: Dr. Finney on 10-20-2022 HbA1c (Bld) [Mass fraction] 10.0 % 3.8-5.6 [facility] Comment on above: Normal < 5.7 % Predi abetic 5.7 - 6.4 % Diabetic >or= 6.5 % Please note range changes. Absolute lymphocyte counton 05-07-2022 Lymphocytes Auto (Unsp spec) [#/Vol] 0.90 10*3/uL 0.83-4.51 [facility] Work Phone: Basophil percentageon 2021 Basophils/100 WBC (Bld) 0.7 % 0-1 [facility] Work Phone: Bilirubin [Mass/Vol] 1.10 mg/dL 0.20-1.00 [facility] Work Phone: Comment on above: For patients on eltr ombopag therapy, use of Dimension Runge TBIL is not recommended. Chloride [Moles/Vol] 104 mmol/L 98-107 [facility] Work Phone: Cholesterol [Mass/Vol] 113 mg/dL <200 [facility] Work Phone: Comment on above: <200 mg/dL Desirable 200-240 mg/dL Borderline >240 mg/dL High Risk Eosinophils/100 WBC (Bld) 1.3 % 0-5 [facility] Work Phone: Glucose [Mass/Vol] 341 mg/dL 74-106 [facility] Work Phone: Comment on above: Glucose result great er than or equal to 200 mg/dLsuggests DIABETES MELLITUS per A.D.A. criteria. Neutrophils (Bld) [#/Vol] 3.9 10*3/uL 2.0-7.7 [facility] Work Phone: Neutrophils/100 WBC (Bld) 73.3 % 47-70 [facility] Work Phone: Potassium [Moles/Vol] 4.7 mmol/L 3.5-5.1 [facility] Work Phone: Protein [Mass/Vol] 7.1 g/dL 6.4-8.2 [facility] Work Phone: Sodium [Moles/Vol] 138 mmol/L 136-145 [facility] Work Phone: Triglyceride [Mass/Vol] 96 mg/dL <199 [facility] Work Phone: Comment on above: The drugs N-Acetylcy steine and Metamizole may falsely depress this assay.Serum Triglycerides Reference Interval Normal <150 mg/dL Borderline high 150 - 199 mg/dL High 200 - 499 mg/dL Very High > or = 500 mg/dL WBC (Bld) [#/Vol] 5.4 10*3/uL 4.4-11.0 [facility] Work Phone: Blood erythrocytes count (nu mber/volume)on 05-07-2022 RBC (Bld) [#/Vol] 4.30 10*6/uL 4.6-6.2 [facility] Work Phone: Blood hemoglobin measurement (mass/volume)on 05-07-2022 Hemoglobin (Bld) [Mass/Vol] 13.1 g/dL 13.0-16.5 [facility] Work Phone: Blood lymphocytes/100 leukoc yteson 05-07-2022 Lymphocytes/100 WBC (Bld) 16.8 % 19-41 [facility] Work Phone: Blood monocytes/100 leukocyt eson 05-07-2022 Monocytes/100 WBC (Bld) 7.5 % 0-10 [facility] Work Phone: Blood platelet mean volumeon 05-07-2022 Platelet mean volume (Bld) [Entitic vol] 10.1 fL 6.2-12.0 [facility] Work Phone: Determination of erythrocyte mean corpuscular volume (MCV)on 05-07-2022 MCV (RBC) [Entitic vol] 94.4 fL 80-94 [facility] Work Phone: Hematocrit Auto (Bld) [Volum e fraction]on 05-07-2022 Hematocrit (Bld) [Volume fraction] 40.6 % 40-54 [facility] Work Phone: Laboratory - Chemistry and C hemistry - challengeon 05-07-2022 ALP [Catalytic activity/Vol] 130 U/L 45-117 [facility] Work Phone: ALT [Catalytic activity/Vol] 38 U/L 16-61 [facility] Work Phone: CO2 [Moles/Vol] 28.0 mmol/L 21.0-32.0 [facility] Work Phone: Globulin (S) [Mass/Vol] 3.7 g/dL 2.2-4.2 [facility] Work Phone: Urea nitrogen/Creatinine [Mass ratio] 21.9 mg/mg 10-20 [facility] Work Phone: Laboratory - Hematology and Cell countson 05-07-2022 Erythrocyte distribution width (RBC) [Entitic vol] 49.8 fL 35.1-43.9 [facility] Work Phone: Erythrocyte distribution width (RBC) [Ratio] 14.5 % 11.6-14.6 [facility] Work Phone: Immature granulocytes/100 WBC (Bld) 0.400 % 0.0-0.9 [facility] Work Phone: Comment on above: IG% - Immature Granu locytes (promyelocytes, myelocytes and metamyelocytes) > 1% indicates that a LEFT SHIFT is Present. MCH (RBC) [Entitic mass] 30.5 pg 27.0-32.0 [facility] Work Phone: Nucleated RBC/100 WBC (Bld) [Ratio] 0 % 0-5 [facility] Work Phone: MCHC Auto (RBC) [Mass/Vol]on 05-07-2022 MCHC (RBC) [Mass/Vol] 32.3 g/dL 32-36 [facility] Work Phone: No Panel Informationon 05-07 Estimated GFR (MDRD) Amer 69 mL/min >60 [facility] Work Phone: Comment on above: GFR Calc Estimated GFR (MDRD) Non-Af Amer 57 mL/min >60 [facility] Work Phone: Comment on above: Non- GFR Calc Parathyroid Hormone (Intact) 62.7 pg/mL 18.4-80.1 [facility] Work Phone: Vitamin D 25-Hydroxy 56.1 ng/mL [facility] Work Phone: Comment on above: Vitamin D 25(OH) Sta tus Range Deficiency <20 ng/mL (50nmol/L) Insufficiency 20 - 30 ng/mL (50 - 75 nmol/L) Sufficiency 30 - 100 ng/mL (75 - 250 nmol/L) Toxicity >100 ng/mL (>250 nmol/L) Platelets bldon 05-07-2022 Platelets (Bld) [#/Vol] 207 10*3/uL 150-450 [facility] Work Phone: Serum or plasma albumin jason urement (mass/volume)on 05-07-2022 Albumin [Mass/Vol] 3.4 g/dL 3.2-5.0 [facility] Work Phone: Serum or plasma albumin/glob ulin mass ratioon 05-07-2022 Albumin/Globulin [Mass ratio] 0.9 {ratio} 0.9-2.4 [facility] Work Phone: Serum or plasma calcium jason urement (mass/volume)on 05-07-2022 Calcium [Mass/Vol] 8.6 mg/dL 8.5-10.1 [facility] Work Phone: Serum or plasma cholesterol in HDL measurement (mass/volume)on 05-07-2022 Cholesterol in HDL [Mass/Vol] 30 mg/dL >40 [facility] Work Phone: Comment on above: The drugs N-Acetylcy steine and Metamizole may falsely depress this assay. Reference Range HDL <40 mg/dL Low HDL Cholesterol HDL >or= 60 mg/dL High HDL Cholesterol Serum or plasma cholesterol in VLDL measurement (mass/volume)on 05-07-2022 Cholesterol in VLDL [Mass/Vol] 19 mg/dL 5-40 [facility] Work Phone: Serum or plasma creatinine m easurement (mass/volume)on 05-07-2022 Creatinine [Mass/Vol] 1.28 mg/dL 0.70-1.30 [facility] Work Phone: Comment on above: The validity of the calculated GFR & GFRAA in patients over 70 years has not been determined. Clinical correlation is essential. Serum or plasma low density lipoprotein (LDL) cholesterol measurement (mass/volume)on 05-07-2022 Cholesterol in LDL [Mass/Vol] 64 mg/dL 0-130 [facility] Work Phone: Serum or plasma urea nitroge n measurement (mass/volume)on 05-07-2022 Urea nitrogen [Mass/Vol] 28 mg/dL 7-18 [facility] Work Phone: Thin prep Papanicolaou smear with manual screeningon 05-07-2022 Thin prep Papanicolaou smear with manual screening 29 U/L 15-37 [facility] Work Phone: Thin prep Papanicolaou smear with manual screening 6 5-15 [facility] Work Phone: Whole blood hemoglobin A1c/t otal hemoglobin ratio (mass fraction)on 05-07-2022 HbA1c (Bld) [Mass fraction] 10.0 % 3.8-5.6 [facility] Work Phone: Comment on above: Normal < 5.7 % Predi abetic 5.7 - 6.4 % Diabetic >or= 6.5 % Please note range changes. Absolute lymphocyte counton 11-11-2021 Lymphocytes Auto (Unsp spec) [#/Vol] 0.85 10*3/uL 0.83-4.51 [facility] Work Phone: Basophil percentageon 2021 Basophil percentage 0 SEEN /hpf [facility] Work Phone: Basophil percentage 3.3 mg/dL 2.5-4.9 [facility] Work Phone: Basophils/100 WBC (Bld) 0.6 % 0-1 [facility] Work Phone: Bilirubin [Mass/Vol] 1.30 mg/dL 0.20-1.00 [facility] Work Phone: Comment on above: For patients on eltr ombopag therapy, use of Dimension Runge TBIL is not recommended. Chloride [Moles/Vol] 106 mmol/L 98-107 [facility] Work Phone: Cholesterol [Mass/Vol] 93 mg/dL <200 [facility] Work Phone: Comment on above: <200 mg/dL Desirable 200-240 mg/dL Borderline >240 mg/dL High Risk Eosinophils/100 WBC (Bld) 1.1 % 0-5 [facility] Work Phone: Glucose [Mass/Vol] 245 mg/dL 74-106 [facility] Work Phone: Comment on above: Glucose result great er than or equal to 200 mg/dLsuggests DIABETES MELLITUS per A.D.A. criteria. Neutrophils (Bld) [#/Vol] 3.8 10*3/uL 2.0-7.7 [facility] Work Phone: Neutrophils/100 WBC (Bld) 72.5 % 47-70 [facility] Work Phone: Potassium [Moles/Vol] 4.4 mmol/L 3.5-5.1 [facility] Work Phone: Protein [Mass/Vol] 6.8 g/dL 6.4-8.2 [facility] Work Phone: Sodium [Moles/Vol] 137 mmol/L 136-145 [facility] Work Phone: Triglyceride [Mass/Vol] 73 mg/dL [facility] Work Phone: Comment on above: The drugs N-Acetylcy steine and Metamizole may falsely depress this assay.Serum Triglycerides Reference Interval Normal <150 mg/dL Borderline high 150 - 199 mg/dL High 200 - 499 mg/dL Very High > or = 500 mg/dL WBC (Bld) [#/Vol] 5.2 10*3/uL 4.4-11.0 [facility] Work Phone: Bilirubin Test strip Ql (U)o n 11-11-2021 Bilirubin Ql (U) Negative Negative [facility] Work Phone: Blood erythrocytes count (nu mber/volume)on 11-11-2021 RBC (Bld) [#/Vol] 3.98 10*6/uL 4.6-6.2 [facility] Work Phone: Blood hemoglobin measurement (mass/volume)on 11-11-2021 Hemoglobin (Bld) [Mass/Vol] 12.4 g/dL 13.0-16.5 [facility] Work Phone: Blood lymphocytes/100 leukoc yteson 11-11-2021 Lymphocytes/100 WBC (Bld) 16.2 % 19-41 [facility] Work Phone: Blood monocytes/100 leukocyt eson 11-11-2021 Monocytes/100 WBC (Bld) 9.2 % 0-10 [facility] Work Phone: Blood platelet mean volumeon 11-11-2021 Platelet mean volume (Bld) [Entitic vol] 9.8 fL 6.2-12.0 [facility] Work Phone: Determination of erythrocyte mean corpuscular volume (MCV)on 11-11-2021 MCV (RBC) [Entitic vol] 93.2 fL 80-94 [facility] Work Phone: Hematocrit Auto (Bld) [Volum e fraction]on 11-11-2021 Hematocrit (Bld) [Volume fraction] 37.1 % 40-54 [facility] Work Phone: Ketones Test strip Ql (U)on 11-11-2021 Ketones Ql (U) Negative Negative [facility] Work Phone: Laboratory - Chemistry and C hemistry - challengeon 11-11-2021 ALP [Catalytic activity/Vol] 122 U/L 45-117 [facility] Work Phone: ALT [Catalytic activity/Vol] 24 U/L 16-61 [facility] Work Phone: CO2 [Moles/Vol] 25.0 mmol/L 21.0-32.0 [facility] Work Phone: Globulin (S) [Mass/Vol] 3.3 g/dL 2.2-4.2 [facility] Work Phone: Magnesium [Mass/Vol] 2.0 mg/dL 1.6-2.6 [facility] Work Phone: Urea nitrogen/Creatinine [Mass ratio] 15.9 mg/mg 10-20 [facility] Work Phone: Laboratory - Hematology and Cell countson 11-11-2021 Erythrocyte distribution width (RBC) [Entitic vol] 48.8 fL 35.1-43.9 [facility] Work Phone: Erythrocyte distribution width (RBC) [Ratio] 14.3 % 11.6-14.6 [facility] Work Phone: Immature granulocytes/100 WBC (Bld) 0.400 % 0.0-0.9 [facility] Work Phone: Comment on above: IG% - Immature Granu locytes (promyelocytes, myelocytes and metamyelocytes) > 1% indicates that a LEFT SHIFT is Present. MCH (RBC) [Entitic mass] 31.2 pg 27.0-32.0 [facility] Work Phone: Nucleated RBC/100 WBC (Bld) [Ratio] 0 % 0-5 [facility] Work Phone: MCHC Auto (RBC) [Mass/Vol]on 11-11-2021 MCHC (RBC) [Mass/Vol] 33.4 g/dL 32-36 [facility] Work Phone: Mucus LM Ql (Urine sed)on Mucus Ql (Urine sed) 0 SEEN /hpf [facility] Work Phone: Nitrite Test strip Ql (U)on 11-11-2021 Nitrite Ql (U) Negative Negative [facility] Work Phone: No Panel Informationon 11-11 Estimated GFR (MDRD) Amer 85 mL/min >60 [facility] Work Phone: Comment on above: GFR Calc Estimated GFR (MDRD) Non-Af Amer 71 mL/min >60 [facility] Work Phone: Comment on above: Non- GFR Calc Parathyroid Hormone (Intact) 49.2 pg/mL 18.4-80.1 [facility] Work Phone: Thyroid Stimulating Hormone (TSH) 1.72 uIU/mL 0.358-3.74 [facility] Work Phone: Urine Microalbumin/Creatinin e Ratio 46.5 mg/g CRE <30 [facility] Work Phone: Vitamin D 25-Hydroxy 63.8 ng/mL [facility] Work Phone: Comment on above: Vitamin D 25(OH) Sta tus Range Deficiency <20 ng/mL (50nmol/L) Insufficiency 20 - 30 ng/mL (50 - 75 nmol/L) Sufficiency 30 - 100 ng/mL (75 - 250 nmol/L) Toxicity >100 ng/mL (>250 nmol/L) Platelets bldon 11-11-2021 Platelets (Bld) [#/Vol] 179 10*3/uL 150-450 [facility] Work Phone: Protein Test strip Ql (U)on 11-11-2021 Protein Ql (U) Negative Negative [facility] Work Phone: Serum or plasma albumin jason urement (mass/volume)on 11-11-2021 Albumin [Mass/Vol] 3.5 g/dL 3.2-5.0 [facility] Work Phone: Serum or plasma albumin/glob ulin mass ratioon 11-11-2021 Albumin/Globulin [Mass ratio] 1.1 {ratio} 0.9-2.4 [facility] Work Phone: Serum or plasma calcium jason urement (mass/volume)on 11-11-2021 Calcium [Mass/Vol] 8.7 mg/dL 8.5-10.1 [facility] Work Phone: Serum or plasma cholesterol in HDL measurement (mass/volume)on 11-11-2021 Cholesterol in HDL [Mass/Vol] 31 mg/dL [facility] Work Phone: Comment on above: The drugs N-Acetylcy steine and Metamizole may falsely depress this assay. Reference Range HDL <40 mg/dL Low HDL Cholesterol HDL >or= 60 mg/dL High HDL Cholesterol Serum or plasma cholesterol in VLDL measurement (mass/volume)on 11-11-2021 Cholesterol in VLDL [Mass/Vol] 15 mg/dL 5-40 [facility] Work Phone: Serum or plasma creatinine m easurement (mass/volume)on 11-11-2021 Creatinine [Mass/Vol] 1.07 mg/dL 0.70-1.30 [facility] Work Phone: Comment on above: The validity of the calculated GFR & GFRAA in patients over 70 years has not been determined. Clinical correlation is essential. Serum or plasma low density lipoprotein (LDL) cholesterol measurement (mass/volume)on 11-11-2021 Cholesterol in LDL [Mass/Vol] 47 mg/dL 0-130 [facility] Work Phone: Serum or plasma urea nitroge n measurement (mass/volume)on 11-11-2021 Urea nitrogen [Mass/Vol] 17 mg/dL 7-18 [facility] Work Phone: Squamous epithelial cells de tection in urine sediment by light microscopyon 11-11-2021 Epithelial cells.squamous LM Ql (Urine sed) 0 SEEN /hpf [facility] Work Phone: Thin prep Papanicolaou smear with manual screeningon 11-11-2021 Thin prep Papanicolaou smear with manual screening 20 U/L 15-37 [facility] Work Phone: Thin prep Papanicolaou smear with manual screening 6 5-15 [facility] Work Phone: Thin prep Papanicolaou smear with manual screening 20.5 mg/L NO RANGE EST. [facility] Work Phone: Urine blood detectionon 10-30 RBC Ql (U) Negative Negative [facility] Work Phone: RBC Ql (U) 0 SEEN /hpf [facility] Work Phone: Urine clarityon 11-11-2021 Clarity (U) Clear Clear [facility] Work Phone: Urine color determinationon 11-11-2021 Color (U) Yellow Yellow [facility] Work Phone: Urine creatinine measurement (mass/volume)on 11-11-2021 Creatinine (U) [Mass/Vol] 44.10 mg/dL NO RANGE EST. [facility] Work Phone: Urine glucose detectionon Glucose Ql (U) 100 mg/dl Normal [facility] Work Phone: Urine leukocyte esterase det ection by dipstickon 11-11-2021 Leukocyte esterase Test strip Ql (U) Negative Negative [facility] Work Phone: Urine pHon 11-11-2021 pH (U) 6.0 [pH] [facility] Work Phone: Urine protein measurement (m ass/volume)on 11-11-2021 Protein (U) [Mass/Vol] 9.1 mg/dL 0.0-11.8 [facility] Work Phone: Urine protein/creatinine mas s ratioon 11-11-2021 Protein/Creatinine (U) [Mass ratio] 206 mg/g CRE 0-200 [facility] Work Phone: Urine sediment bacteria coun t by microscopy (number/high power field)on 11-11-2021 Bacteria LM.HPF (Urine sed) [#/Area] 0 /[HPF] None Seen [facility] Work Phone: Urine specific gravity measu rementon 11-11-2021 Specific gravity (U) [Rel density] 1.015 [facility] Work Phone: Urobilinogen Auto test strip Ql (U)on 11-11-2021 Urobilinogen Ql (U) Normal mg/dl Normal [facility] Work Phone: Whole blood hemoglobin A1c/t otal hemoglobin ratio (mass fraction)on 11-11-2021 HbA1c (Bld) [Mass fraction] 11.6 % 3.8-5.6 [facility] Work Phone: Comment on above: Normal < 5.7 % Predi abetic 5.7 - 6.4 % Diabetic >or= 6.5 % Please note range changes. DISCH.SUMon 12-19-2020 DISCH.[facility] Patient Name: [facility] : [address] [address] Unit Number: [id number] Discharge Summary Patient Status: DIS IN Attending Doctor: Chandler Ly MD Service Date: 12/19/20 1021 Discharge Summary Admit Date Admission Date Time: 12/18/20 1024 Anticipated Discharge Date 12/19/20 Final Dx/Problem List 1. Carotid arterial disease Patient Problems Reviewed: Yes Chief Complaint/HPI Severe right carotid stenosis Reason for Admission Carotid endarterectomy Operations/Procedures 1. Right carotid endarterectomy with bovine patch angioplasty Hospital Course Patient underwent right carotid endarterectomy. He did well. He remained neurologically intact. There is no hematoma. Drain was removed. Tolerating regular diet was ambulating well. He was cleared for discharge home after breakfast. Pertinent Physical Findings Awake alert oriented No apparent distress Afebrile vital signs stable Neurological intact Moves all extremities well x4 Neck no hematoma Prescriptions Continue taking these medications: Isosorbide Mononitrate* (Imdur 30 MG Tab SA*) 30 MG TAB.SR.24H 30 MILLIGRAM ORAL EVERY DAY Furosemide* (Lasix 40MG Tab*) 40 MG TABLET 40 MILLIGRAM ORAL TWICE A DAY BEFORE MEALS potassium CHLORIDE* (K-Dur 20MEQ Tab.sa*) 20 MEQ TAB.ER.PRT 20 MILLIEQUIVALENT ORAL TWICE DAILY WITH MEALS Tamsulosin HCl* (Flomax 0.4MG Cap*) 0.4 MG CAP.ER.24H 0.4 MILLIGRAM ORAL EVERY DAY Carvedilol* (Coreg 12.5MG Tab*) 12.5 MG TABLET 12.5 MILLIGRAM ORAL 2 TIMES DAILY Rosuvastatin Calcium* (Crestor Tab*) 40 MG TABLET 40 MILLIGRAM ORAL AT BEDTIME Apixaban* (Eliquis Tab*) 5 MG TABLET 5 MILLIGRAM ORAL 2 TIMES DAILY Zolpidem Tartrate* (Ambien 5MG Tab*) 5 MG TABLET 5 MILLIGRAM ORAL AT BEDTIME Referrals Ordered Referrals Vascular Surgery For Providers: Chandler Ly MD [address] [facility] [address] [place] [address] Condition: Stable Disposition Home Disclaimer This dictation was created using voice recognition software. Phonetic and/or minor grammatical errors may exist. eSign Date and Time Chandler Ly MD Verified/Reviewed by 12/19/20 1024 Normal [facility] GLUCOSE METERon 12-19-2020 Glucose [Mass/Vol] 178 mg/dL High 85-125 [facility] Glucose [Mass/Vol] 386 mg/dL High 85-125 [facility] .Auto Diffon 12-18-2020 Basophil, Absolute 0.00 10 3/mcL Normal 0.00-0.27 [facility] ([place]) Comment on above: Performed By: #### G FR, CBC, ABOGEL, ABSGEL, ADIFF, ANEU, BMP, DATIGG #### [address] [address] Basophils/100 WBC (Bld) 0.5 % Normal 0.0-2.5 [facility] ([place]) Comment on above: Performed By: #### G FR, CBC, ABOGEL, ABSGEL, ADIFF, ANEU, BMP, DATIGG #### [address] [address] Eosinophil, Absolute 0.10 10 3/mcL Normal 0.00-0.65 [facility] ([place]) Comment on above: Performed By: #### G FR, CBC, ABOGEL, ABSGEL, ADIFF, ANEU, BMP, DATIGG #### [address] [address] Eosinophils/100 WBC (Bld) 1.1 % Normal 0.0-6.0 [facility] ([place]) Comment on above: Performed By: #### G FR, CBC, ABOGEL, ABSGEL, ADIFF, ANEU, BMP, DATIGG #### [address] [address] Lymphocyte, Absolute 1.00 10 3/mcL Normal 0.90-4.32 [facility] ([place]) Comment on above: Performed By: #### G FR, CBC, ABOGEL, ABSGEL, ADIFF, ANEU, BMP, DATIGG #### [address] [address] Lymphocytes/100 WBC (Bld) 16.9 % Low 20.0-40.0 [facility] ([place]) Comment on above: Performed By: #### G FR, CBC, ABOGEL, ABSGEL, ADIFF, ANEU, BMP, DATIGG #### [address] [address] Monocyte, Absolute 0.60 10 3/mcL Normal 0.09-1.40 [facility] ([place]) Comment on above: Performed By: #### G FR, CBC, ABOGEL, ABSGEL, ADIFF, ANEU, BMP, DATIGG #### [address] [address] Monocytes/100 WBC (Bld) 9.0 % Normal 2.0-13.0 [facility] ([place]) Comment on above: Performed By: #### G FR, CBC, ABOGEL, ABSGEL, ADIFF, ANEU, BMP, DATIGG #### [address] [address] Neutrophils/100 WBC (Bld) 72.5 % Normal 50.0-75.0 [facility] ([place]) Comment on above: Performed By: #### G FR, CBC, ABOGEL, ABSGEL, ADIFF, ANEU, BMP, DATIGG #### [address] [address] .GFRon 12-18-2020 GFR Non- >60 Normal [facility] ([place]) Comment on above: Result Comment: GFR Population mean for , Non- Americans Ages 20-29 = 116 mL/min/1.73 sq.m. Ages 30-39 = 107 mL/min/1.73 sq.m. Ages 40-49 = 99 mL/min/1.73 sq.m. Ages 50-59 = 93 mL/min/1.73 sq.m. Ages 60-69 = 85 mL/min/1.73 sq.m. Ages 70+ = 75 mL/min/1.73 sq.m. Chronic Kidney Disease: Less than 60 mL/min/1.73 square meters End Stage Renal Disease: Less than 15 mL/min/1.73 square meters Performed By: #### G FR, CBC, ABOGEL, ABSGEL, ADIFF, ANEU, BMP, DATIGG #### [address] [address] GFR >60 Normal [facility] ([place]) Comment on above: Result Comment: GFR Population mean for , Non- Americans Ages 20-29 = 116 mL/min/1.73 sq.m. Ages 30-39 = 107 mL/min/1.73 sq.m. Ages 40-49 = 99 mL/min/1.73 sq.m. Ages 50-59 = 93 mL/min/1.73 sq.m. Ages 60-69 = 85 mL/min/1.73 sq.m. Ages 70+ = 75 mL/min/1.73 sq.m. Chronic Kidney Disease: Less than 60 mL/min/1.73 square meters End Stage Renal Disease: Less than 15 mL/min/1.73 square meters Performed By: #### G FR, CBC, ABOGEL, ABSGEL, ADIFF, ANEU, BMP, DATIGG #### [address] [address] .NEUABSon 12-18-2020 Neutrophil, Absolute 4.50 10 3/mcL Normal 2.25-8.10 [facility] ([place]) Comment on above: Performed By: #### G FR, CBC, ABOGEL, ABSGEL, ADIFF, ANEU, BMP, DATIGG #### [address] [address] ABO/Rh (Gel)on 12-18-2020 ABO/Rh Interp Negative Invalid Interpretation Code [facility] ([place]) Comment on above: Performed By: #### G FR, CBC, ABOGEL, ABSGEL, ADIFF, ANEU, BMP, DATIGG #### [address] [address] ABS (Gel)on 12-18-2020 ABSC Interp (Gel) Negative Normal [facility] ([place]) Comment on above: Performed By: #### G FR, CBC, ABOGEL, ABSGEL, ADIFF, ANEU, BMP, DATIGG #### [address] [address] BMPon 12-18-2020 Anion gap [Moles/Vol] 6 mmol/L Normal 5-16 [facility] Comment on above: Order Comment: Campu s: M Performed By: #### L [id number], [id number] #### [facility] [address] [place] [address] Calcium [Mass/Vol] 9.2 mg/dL Normal 8.5-10.5 [facility] Comment on above: Order Comment: Campu s: M Result Comment: NOTE NEW NORMAL RANGE DUE TO REAGENT CHANGE Performed By: #### L [id number], [id number] #### [facility] [address] [place] [address] Chloride [Moles/Vol] 105 mmol/L Normal 98-107 [facility] Comment on above: Order Comment: Campu s: M Performed By: #### L [id number], [id number] #### [facility] [address] [place] [address] CO2 [Moles/Vol] 28.0 mmol/L Normal 21-32 [facility] Comment on above: Order Comment: Campu s: M Performed By: #### L 500.60673, [id number] #### [facility] [address] [place] [address] Creatinine [Mass/Vol] 0.96 mg/dL Normal 0.5-1.4 [facility] Comment on above: Order Comment: Campu s: M Result Comment: NOTE NEW NORMAL RANGE DUE TO REAGENT CHANGE Patients receiving either N-Acetylcysteine (NAC) or Metamizole prior to venipuncture, may have falsely depressed results. Performed By: #### L [id number], [id number] #### [facility] [address] [place] [address] Glucose [Mass/Vol] 234 mg/dL High 70-100 [facility] Comment on above: Order Comment: Campu s: M Result Comment: 70-1 00- Normal Fasting; 100-125 Impaired Fasting; greater than 126 on more than one result- Diabetes. ADA guidelines. Results may be falsely elevated after the administration of Sulfapyridine. Results may be falsely depressed after the administration of Sulfasalazine. Performed By: #### L 500.07794, [id number] #### [facility] [address] [place] [address] Potassium [Moles/Vol] 4.4 mmol/L Normal 3.5-5.1 [facility] Comment on above: Order Comment: Campu s: M Performed By: #### L [id number], L500.11341 #### [facility] [address] [place] [address] Sodium [Moles/Vol] 139 mmol/L Normal 136-145 [facility] Comment on above: Order Comment: Campu s: M Performed By: #### L 500.18505, [id number] #### [facility] [address] [place] [address] Urea nitrogen [Mass/Vol] 19 mg/dL Normal 7-26 [facility] Comment on above: Order Comment: Campu s: M Performed By: #### L [id number], [id number] #### [facility] [address] [place] [address] Urea nitrogen/Creatinine [Mass ratio] 20 mg/mg Normal 15-24 [facility] Comment on above: Order Comment: Florencio hardwick: M Performed By: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 serum is not approved by the FDA; however, such approval is not necessary. Performed By: #### G VENITA #### [facility] [address] [place] [address] CBCon 03-27-2020 Erythrocyte distribution width (RBC) [Ratio] 14.6 % High 11.5 - 14.5 [facility] [place] Comment on above: Performed By: #### C BC #### [facility] [address] [place] [address] Hematocrit (Bld) [Volume fraction] 33.1 % Low 41.0 - 52.0 [facility] [place] Comment on above: Performed By: #### C BC #### [facility] [address] [place] [address] Hemoglobin (Bld) [Mass/Vol] 10.8 g/dL Low 13.5 - 17.5 [facility] [place] Comment on above: Performed By: #### C BC #### [facility] [address] [place] [address] MCHC (RBC) [Mass/Vol] 32.6 g/dL Normal 32.0 - 36.0 [facility] [place] Comment on above: Performed By: #### C BC #### [facility] [address] [place] [address] MCV (RBC) [Entitic vol] 96 fL Normal 80 - 100 [facility] [place] Comment on above: Performed By: #### C BC #### [facility] [address] [place] [address] Nucleated RBC/100 WBC (Bld) [Ratio] 0.0 /100 WBC Normal 0.0-0.0 [facility] [place] Comment on above: Performed By: #### C BC #### [facility] [address] [place] [address] Platelets (Bld) [#/Vol] 196 10*3/uL Normal 150 - 450 [facility] [place] Comment on above: Performed By: #### C BC #### [facility] [address] [place] [address] RBC (Bld) [#/Vol] 3.45 x10E12/L Low 4.50 - 5.90 [facility] [place] Comment on above: Performed By: #### C BC #### [facility] [address] [place] [address] WBC (Bld) [#/Vol] 12.1 10*3/uL High 4.4 - 11.3 [facility] [place] Comment on above: Performed By: #### C BC #### [facility] [address] [place] [address] Erythrocyte distribution width (RBC) [Ratio] 14.3 % Normal 11.5 - 14.5 [facility] [place] Comment on above: Performed By: #### G VENITA #### [facility] [address] [place] [address] Hematocrit (Bld) [Volume fraction] 32.3 % Low 41.0 - 52.0 [facility] [place] Comment on above: Performed By: #### G VENITA #### [facility] [address] [place] [address] Hemoglobin (Bld) [Mass/Vol] 10.6 g/dL Low 13.5 - 17.5 [facility] [place] Comment on above: Performed By: #### G VENITA #### [facility] [address] [place] [address] MCHC (RBC) [Mass/Vol] 32.8 g/dL Normal 32.0 - 36.0 [facility] [place] Comment on above: Performed By: #### G VENITA #### [facility] [address] [place] [address] MCV (RBC) [Entitic vol] 94 fL Normal 80 - 100 [facility] [place] Comment on above: Performed By: #### G VENITA #### [facility] [address] [place] [address] Nucleated RBC/100 WBC (Bld) [Ratio] 0.0 /100 WBC Normal 0.0-0.0 [facility] [place] Comment on above: Performed By: #### G VENITA #### [facility] [address] [place] [address] Platelets (Bld) [#/Vol] 182 10*3/uL Normal 150 - 450 [facility] [place] Comment on above: Performed By: #### G VENITA #### [facility] [address] [place] [address] RBC (Bld) [#/Vol] 3.45 x10E12/L Low 4.50 - 5.90 [facility] [place] Comment on above: Performed By: #### G VENITA #### [facility] [address] [place] [address] WBC (Bld) [#/Vol] 11.9 10*3/uL High 4.4 - 11.3 [facility] [place] Comment on above: Performed By: #### G VENITA #### [facility] [address] [place] [address] Erythrocyte distribution width (RBC) [Ratio] 14.1 % Normal 11.5 - 14.5 [facility] [place] Comment on above: Performed By: #### C BC #### [facility] [address] [place] [address] Hematocrit (Bld) [Volume fraction] 35.2 % Low 41.0 - 52.0 [facility] [place] Comment on above: Performed By: #### C BC #### [facility] [address] [place] [address] Hemoglobin (Bld) [Mass/Vol] 12.2 g/dL Low 13.5 - 17.5 [facility] [place] Comment on above: Performed By: #### C BC #### [facility] [address] [place] [address] MCHC (RBC) [Mass/Vol] 34.7 g/dL Normal 32.0 - 36.0 [facility] [place] Comment on above: Performed By: #### C BC #### [facility] [address] [place] [address] MCV (RBC) [Entitic vol] 90 fL Normal 80 - 100 [facility] [place] Comment on above: Performed By: #### C BC #### [facility] [address] [place] [address] Nucleated RBC/100 WBC (Bld) [Ratio] 0.0 /100 WBC Normal 0.0-0.0 [facility] [place] Comment on above: Performed By: #### C BC #### [facility] [address] [place] [address] Platelets (Bld) [#/Vol] 200 10*3/uL Normal 150 - 450 [facility] [place] Comment on above: Performed By: #### C BC #### [facility] [address] [place] [address] RBC (Bld) [#/Vol] 3.92 x10E12/L Low 4.50 - 5.90 [facility] [place] Comment on above: Performed By: #### C BC #### [facility] [address] [place] [address] WBC (Bld) [#/Vol] 14.5 10*3/uL High 4.4 - 11.3 [facility] [place] Comment on above: Performed By: #### C BC #### [facility] [address] [place] [address] CHEST 1 VIEWon 03-27-2020 CHEST 1 VIEW Patient Name: JUAN DAVID HERNÁNDEZ STUDY: CHEST 1 VIEW; PELVIS, 1 OR 2 VIEWS; 03/26/2020 10:37 pm AP chest radiograph. AP view of the pelvis. INDICATION: trauma. COMPARISON: None. ACCESSION NUMBER(S): [id number]; [id number] ORDERING CLINICIAN: CARMINE DSOUZA FINDINGS: Chest: There is a left chest wall AICD, prosthetic heart valve and median sternotomy wires along with mediastinal surgical clips. CARDIOMEDIASTINAL SILHOUETTE: Enlarged cardiac silhouette. Calcifications overlie the aortic arch. LUNGS: No pulmonary consolidation, pleural effusion or pneumothorax. ABDOMEN: No remarkable upper abdominal findings. BONES: No acute osseous abnormality. Pelvis: Bones are severely demineralized. There are vascular calcifications. Degenerative changes in the pubic symphysis and SI joints bilaterally. Mild femoroacetabular joint space narrowing with osteophytic spurring. Acute right-sided inter trochanteric fracture with lateral angulation of the apex. IMPRESSION: No radiographic evidence of acute cardiopulmonary pathology. Acute right-sided inter trochanteric fracture with lateral angulation of the apex Moderate femoroacetabular joint osteoarthrosis bilaterally. Electronically signed by: KATHERINE HOFF MD [facility] CORONAVIRUS 2019 BY PCRon CORONAVIRUS 2019,PCR NOT DETECTED Normal Not Detected [facility] [place] Comment on above: Result Comment: This assay is designed to detect the RdRp gene of SARS-CoV-2 via nucleic acid amplification. A Not Detected result does not preclude COVID-19 infection since the adequacy of sample collection and/or low viral burden may result in presence of viral nucleic acids below the clinical sensitivity of this test method. Fact sheet for providers: www.fda.gov/media/712944/download Fact sheet for patients: www.fda.gov/media/153811/download This test has received FDA Emergency Use Authorization (EUA) and has been verified by [facility] ([facility]). This test is only authorized for the duration of time that circumstances exist to justify the authorization of the emergency use of in vitro diagnostic tests for the detection of SARS-CoV-2 virus and/or diagnosis of COVID-19 infection under section 564(b)(1) of the Act, 21 U.S.C. 360bbb-3(b)(1), unless the authorization is terminated or revoked sooner. [facility] is certified under CLIA-88 as qualified to perform high complexity testing. Testing is performed in the [facility] laboratories located at [address] [place] [address]. Performed By: #### G VENITA #### [facility] [address] [place] [id number] Lab Specimen Source Nasal, Nasopharyngeal Normal [facility] [place] Comment on above: Performed By: #### G VENITA #### [facility] [address] [place] [id number] CT C-SPINE WO CONTRASTon CT C-SPINE WO CONTRAST Addendum Begins Patient Name: JUAN DAVID HERNÁNDEZ ADDENDUM: The critical information above was also relayed directly by me by telephone to YANIRA Otto with the trauma team where patient was transferred on 03/27/2020 at 1:47 am with readback verification. 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 COMPARISON: Chest and pelvic radiographs 03/26/2020 ACCESSION NUMBER(S): [id number]; [id number]; [id number]; [id number]; [id number] ORDERING CLINICIAN: CARMINE DONALD TECHNIQUE: Noncontrast axial CT images of the head and cervical spine were obtained. Sagittal and coronal reformatted images were created. Axial CT images of the chest, abdomen and pelvis were then obtained with a combined contrast administration of 90 mL Omnipaque 350. Coronal and sagittal reconstructions were created. Reconstructions were created of the thoracic and lumbar spine as well in the axial, coronal and sagittal planes. FINDINGS: Head: EXTRACRANIAL SOFT TISSUES: There is swelling in the left periorbital and right frontal scalp soft tissues. CALVARIUM: No depressed skull fracture. No destructive osseous lesion. PARANASAL SINUSES/MASTOIDS: Mucosal thickening of the frontal, ethmoid and maxillary sinuses. Mastoid air cells are aerated. HEMORRHAGE: No acute intracranial hemorrhage. BRAIN PARENCHYMA: Dudley-white matter interfaces are preserved. No mass effect or midline shift. Scattered periventricular, deep and subcortical white matter hypodensities. VENTRICLES and EXTRA-AXIAL SPACES: Parenchymal atrophy with prominence of the ventricles and cortical sulci. OTHER FINDINGS: There are calcifications within the cavernous carotids CERVICAL SPINE: ALIGNMENT: Grade 1 anterolisthesis C4 on C5. VERTEBRAE: There is fracture through the odontoid and into the lateral masses of C2 with fracture line extending close to the right transverse foramen. Suspected fracture through the inferior aspect of the right lateral mass of C1. DISC SPACE: Disc space narrowing is most pronounced at C5/C6 and C6/C7 SPINAL CANAL: Multilevel facet and uncovertebral arthropathy with varying degrees of neural foraminal stenosis. No severe central narrowing PREVERTEBRAL SOFT TISSUES: No prevertebral soft tissue swelling. OTHER FINDINGS: None. CHEST: CHEST WALL AND LOWER NECK: There is a left chest wall pacing device. No acute osseous abnormality. Median sternotomy wires are present. VESSELS: Aorta is normal caliber. Atherosclerotic changes in the aorta and coronary arteries. No traumatic injury. HEART: Normal size. No pericardial effusion. Prosthetic mitral valve MEDIASTINUM AND LEDA: No pathologically enlarged thoracic lymph nodes. No retrosternal hematoma. Small hiatal hernia LUNG, PLEURA, LARGE AIRWAYS: Dependent atelectatic changes bilaterally. No pneumothorax or hemothorax. No pulmonary contusion or laceration. ABDOMEN/PELVIS: LIVER: No laceration or subcapsular hematoma. BILE DUCTS: Normal caliber. GALLBLADDER: A calcified gallstone is present within the gallbladder lumen. There is mild pericholecystic fluid. PANCREAS: Unremarkable. SPLEEN: No traumatic injury. ADRENALS: Unremarkable. KIDNEYS, URETERS and BLADDER: Symmetric renal enhancement. No hydronephrosis or perinephric fluid collection. 1.2 cm hypodensity in the superior pole of the right kidney measures intermediate Hounsfield units. There are additional subcentimeter hypodensities throughout the kidneys bilaterally which measure simple fluid attenuation most compatible with simple cysts. REPRODUCTIVE ORGANS: No pelvic mass or significant free pelvic fluid. ABDOMINAL WALL: There is stranding within the anterior abdominal wall soft tissues. Fat containing umbilical hernia. Fat containing inguinal hernias bilaterally. PERITONEUM: No ascites, free air or fluid collection. BOWEL: The stomach is decompressed, which limits evaluation. No dilated bowel. No focal bowel wall thickening. There are scattered colonic diverticula. VESSELS: Moderate aortoiliac calcifications. RETROPERITONEUM: Within normal limits. BONES: Incompletely visualized comminuted right intertrochanteric fracture. Thoracic Spine: ALIGNMENT: Normal. VERTEBRAE: No acute loss of vertebral body height. Hemangioma within the T6 vertebral body DISC SPACES: No traumatic disc space narrowing SPINAL CANAL: No critical spinal canal stenosis. PREVERTEBRAL SOFT TISSUES: No prevertebral soft tissue swelling. LUMBAR SPINE: ALIGNMENT: Grade 1 anterolisthesis L5 on S1. VERTEBRAE: No acute loss of vertebral body height. Bilateral pars defects at L5. Hemangioma within the L2 vertebral body. DISC SPACES: Disc space narrowing most pronounced at L5/S1 where there is also vacuum disc phenomenon. SPINAL CANAL: Diffuse facet arthropathy. No severe central narrowing. PREVERTEBRAL SOFT TISSUES: No prevertebral soft tissue swelling. OTHER FINDINGS: None. IMPRESSION: Left periorbital and right frontal scalp soft tissue contusions. No underlying depressed calvarial fracture no acute intracranial hemorrhage, mass effect or midline shift. There is fracture through the odontoid and into the lateral masses of C2 with fracture line extending close to the right transverse foramen. Consider further evaluation with a CTA of the neck to better assess the vertebral arteries. Suspected fracture is also seen through the inferior aspect of the right lateral mass of C1. No acute traumatic injury throughout the chest No acute fracture or traumatic malalignment throughout the thoracic spine Stranding in the anterior abdominal wall soft tissues most likely represents soft tissue contusion in the setting of trauma. Incompletely visualized comminuted right intertrochanteric fracture. Cholelithiasis with mild pericholecystic fluid. Correlate with clinical symptoms of right upper quadrant pain and consider follow-up ultrasound as clinically warranted. Indeterminate 1.2 cm hypodensity within the superior pole of the right kidney. Recommend nonemergent renal mass protocol cross-sectional imaging to further characterize. Degenerative changes throughout the lumbar spine along with bilateral pars defects at L5. Document Only: The critical information above was relayed directly by me by telephone to CARMINE DSOUZA on 03/27/2020 at 12:56 am with readback verification. Electronically signed by: KATHERINE HOFF MD [facility] CT CHEST ABDOMEN PELVIS W IV CONTRASTon 03-27-2020 CT CHEST ABDOMEN PELVIS W IV CONTRAST Addendum Begins Patient Name: JUAN DAVID HERNÁNDEZ ADDENDUM: The critical information above was also relayed directly by me by telephone to YANIRA Otto with the trauma team where patient was transferred on 03/27/2020 at 1:47 am with readback verification. 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 COMPARISON: Chest and pelvic radiographs 03/26/2020 ACCESSION NUMBER(S): [id number]; [id number]; [id number]; [id number]; [id number] ORDERING CLINICIAN: CARMINE DSOUZA; ARMANDO DONALD TECHNIQUE: Noncontrast axial CT images of the head and cervical spine were obtained. Sagittal and coronal reformatted images were created. Axial CT images of the chest, abdomen and pelvis were then obtained with a combined contrast administration of 90 mL Omnipaque 350. Coronal and sagittal reconstructions were created. Reconstructions were created of the thoracic and lumbar spine as well in the axial, coronal and sagittal planes. FINDINGS: Head: EXTRACRANIAL SOFT TISSUES: There is swelling in the left periorbital and right frontal scalp soft tissues. CALVARIUM: No depressed skull fracture. No destructive osseous lesion. PARANASAL SINUSES/MASTOIDS: Mucosal thickening of the frontal, ethmoid and maxillary sinuses. Mastoid air cells are aerated. HEMORRHAGE: No acute intracranial hemorrhage. BRAIN PARENCHYMA: Dudley-white matter interfaces are preserved. No mass effect or midline shift. Scattered periventricular, deep and subcortical white matter hypodensities. VENTRICLES and EXTRA-AXIAL SPACES: Parenchymal atrophy with prominence of the ventricles and cortical sulci. OTHER FINDINGS: There are calcifications within the cavernous carotids CERVICAL SPINE: ALIGNMENT: Grade 1 anterolisthesis C4 on C5. VERTEBRAE: There is fracture through the odontoid and into the lateral masses of C2 with fracture line extending close to the right transverse foramen. Suspected fracture through the inferior aspect of the right lateral mass of C1. DISC SPACE: Disc space narrowing is most pronounced at C5/C6 and C6/C7 SPINAL CANAL: Multilevel facet and uncovertebral arthropathy with varying degrees of neural foraminal stenosis. No severe central narrowing PREVERTEBRAL SOFT TISSUES: No prevertebral soft tissue swelling. OTHER FINDINGS: None. CHEST: CHEST WALL AND LOWER NECK: There is a left chest wall pacing device. No acute osseous abnormality. Median sternotomy wires are present. VESSELS: Aorta is normal caliber. Atherosclerotic changes in the aorta and coronary arteries. No traumatic injury. HEART: Normal size. No pericardial effusion. Prosthetic mitral valve MEDIASTINUM AND LEDA: No pathologically enlarged thoracic lymph nodes. No retrosternal hematoma. Small hiatal hernia LUNG, PLEURA, LARGE AIRWAYS: Dependent atelectatic changes bilaterally. No pneumothorax or hemothorax. No pulmonary contusion or laceration. ABDOMEN/PELVIS: LIVER: No laceration or subcapsular hematoma. BILE DUCTS: Normal caliber. GALLBLADDER: A calcified gallstone is present within the gallbladder lumen. There is mild pericholecystic fluid. PANCREAS: Unremarkable. SPLEEN: No traumatic injury. ADRENALS: Unremarkable. KIDNEYS, URETERS and BLADDER: Symmetric renal enhancement. No hydronephrosis or perinephric fluid collection. 1.2 cm hypodensity in the superior pole of the right kidney measures intermediate Hounsfield units. There are additional subcentimeter hypodensities throughout the kidneys bilaterally which measure simple fluid attenuation most compatible with simple cysts. REPRODUCTIVE ORGANS: No pelvic mass or significant free pelvic fluid. ABDOMINAL WALL: There is stranding within the anterior abdominal wall soft tissues. Fat containing umbilical hernia. Fat containing inguinal hernias bilaterally. PERITONEUM: No ascites, free air or fluid collection. BOWEL: The stomach is decompressed, which limits evaluation. No dilated bowel. No focal bowel wall thickening. There are scattered colonic diverticula. VESSELS: Moderate aortoiliac calcifications. RETROPERITONEUM: Within normal limits. BONES: Incompletely visualized comminuted right intertrochanteric fracture. Thoracic Spine: ALIGNMENT: Normal. VERTEBRAE: No acute loss of vertebral body height. Hemangioma within the T6 vertebral body DISC SPACES: No traumatic disc space narrowing SPINAL CANAL: No critical spinal canal stenosis. PREVERTEBRAL SOFT TISSUES: No prevertebral soft tissue swelling. LUMBAR SPINE: ALIGNMENT: Grade 1 anterolisthesis L5 on S1. VERTEBRAE: No acute loss of vertebral body height. Bilateral pars defects at L5. Hemangioma within the L2 vertebral body. DISC SPACES: Disc space narrowing most pronounced at L5/S1 where there is also vacuum disc phenomenon. SPINAL CANAL: Diffuse facet arthropathy. No severe central narrowing. PREVERTEBRAL SOFT TISSUES: No prevertebral soft tissue swelling. OTHER FINDINGS: None. IMPRESSION: Left periorbital and right frontal scalp soft tissue contusions. No underlying depressed calvarial fracture no acute intracranial hemorrhage, mass effect or midline shift. There is fracture through the odontoid and into the lateral masses of C2 with fracture line extending close to the right transverse foramen. Consider further evaluation with a CTA of the neck to better assess the vertebral arteries. Suspected fracture is also seen through the inferior aspect of the right lateral mass of C1. No acute traumatic injury throughout the chest No acute fracture or traumatic malalignment throughout the thoracic spine Stranding in the anterior abdominal wall soft tissues most likely represents soft tissue contusion in the setting of trauma. Incompletely visualized comminuted right intertrochanteric fracture. Cholelithiasis with mild pericholecystic fluid. Correlate with clinical symptoms of right upper quadrant pain and consider follow-up ultrasound as clinically warranted. Indeterminate 1.2 cm hypodensity within the superior pole of the right kidney. Recommend nonemergent renal mass protocol cross-sectional imaging to further characterize. Degenerative changes throughout the lumbar spine along with bilateral pars defects at L5. Document Only: The critical information above was relayed directly by me by telephone to CARMINE DSOUZA on 03/27/2020 at 12:56 am with readback verification. Electronically signed by: KATHERINE HOFF MD [facility] CT HEAD WO CONTRASTon 2019 CT HEAD WO CONTRAST Addendum Begins Patient Name: JUAN DAVID HERNÁNDEZ ADDENDUM: The critical information above was also relayed directly by me by telephone to YANIRA Otto with the trauma team where patient was transferred on 03/27/2020 at 1:47 am with readback verification. 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 COMPARISON: Chest and pelvic radiographs 03/26/2020 ACCESSION NUMBER(S): [id number]; [id number]; [id number] ORDERING CLINICIAN: CARMINE DONALD TECHNIQUE: Noncontrast axial CT images of the head and cervical spine were obtained. Sagittal and coronal reformatted images were created. Axial CT images of the chest, abdomen and pelvis were then obtained with a combined contrast administration of 90 mL Omnipaque 350. Coronal and sagittal reconstructions were created. Reconstructions were created of the thoracic and lumbar spine as well in the axial, coronal and sagittal planes. FINDINGS: Head: EXTRACRANIAL SOFT TISSUES: There is swelling in the left periorbital and right frontal scalp soft tissues. CALVARIUM: No depressed skull fracture. No destructive osseous lesion. PARANASAL SINUSES/MASTOIDS: Mucosal thickening of the frontal, ethmoid and maxillary sinuses. Mastoid air cells are aerated. HEMORRHAGE: No acute intracranial hemorrhage. BRAIN PARENCHYMA: Dudley-white matter interfaces are preserved. No mass effect or midline shift. Scattered periventricular, deep and subcortical white matter hypodensities. VENTRICLES and EXTRA-AXIAL SPACES: Parenchymal atrophy with prominence of the ventricles and cortical sulci. OTHER FINDINGS: There are calcifications within the cavernous carotids CERVICAL SPINE: ALIGNMENT: Grade 1 anterolisthesis C4 on C5. VERTEBRAE: There is fracture through the odontoid and into the lateral masses of C2 with fracture line extending close to the right transverse foramen. Suspected fracture through the inferior aspect of the right lateral mass of C1. DISC SPACE: Disc space narrowing is most pronounced at C5/C6 and C6/C7 SPINAL CANAL: Multilevel facet and uncovertebral arthropathy with varying degrees of neural foraminal stenosis. No severe central narrowing PREVERTEBRAL SOFT TISSUES: No prevertebral soft tissue swelling. OTHER FINDINGS: None. CHEST: CHEST WALL AND LOWER NECK: There is a left chest wall pacing device. No acute osseous abnormality. Median sternotomy wires are present. VESSELS: Aorta is normal caliber. Atherosclerotic changes in the aorta and coronary arteries. No traumatic injury. HEART: Normal size. No pericardial effusion. Prosthetic mitral valve MEDIASTINUM AND LEDA: No pathologically enlarged thoracic lymph nodes. No retrosternal hematoma. Small hiatal hernia LUNG, PLEURA, LARGE AIRWAYS: Dependent atelectatic changes bilaterally. No pneumothorax or hemothorax. No pulmonary contusion or laceration. ABDOMEN/PELVIS: LIVER: No laceration or subcapsular hematoma. BILE DUCTS: Normal caliber. GALLBLADDER: A calcified gallstone is present within the gallbladder lumen. There is mild pericholecystic fluid. PANCREAS: Unremarkable. SPLEEN: No traumatic injury. ADRENALS: Unremarkable. KIDNEYS, URETERS and BLADDER: Symmetric renal enhancement. No hydronephrosis or perinephric fluid collection. 1.2 cm hypodensity in the superior pole of the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 Interpretation Code [facility] Phone: [phone] VA interval, electrocardiogram 0 ms Invalid Interpretation Code [facility] Phone: [phone] Pulse (Heart Rate) 61 /min Invalid Interpretation Code [facility] Phone: QRS axis, electrocardiogram 19 deg Invalid Interpretation Code [facility] Phone: QRS Duration 120 ms Invalid Interpretation Code [facility] Phone: [phone] QRS duration, electrocardiogram 120 ms Invalid Interpretation Code [facility] Phone: [phone] QT Interval new path ms Invalid Interpretation Code [facility] Phone: QT interval, electrocardiogram new path ms Invalid Interpretation Code [facility] Phone: QTc Michelle 433 ms Invalid Interpretation Code [facility] Work Phone: [phone] T Keiser -134 deg Invalid Interpretation Code [facility] Work Phone: [phone] T wave axis, electrocardiogram -134 deg Invalid Interpretation Code [facility] Work Phone: [phone] Lab Report: BNP,B-Type NATRI URETIC PEPTIDEon 04-22-2015 BNP 228.9 pg/mL High 0-100 [facility] Work Phone: [phone] Office Visiton 10-02-2014 cardiac risk group C Invalid Interpretation Code [facility] Work Phone: [phone] General cardiovascular disease 10Y risk [#] Lennox.D'Agostsolomon N/A Invalid Interpretation Code [facility] Work Phone: [phone] [facility] Left ventricular Ejection fraction 35 % Invalid Interpretation Code [facility] Work Phone: [phone]) Lab Report: CBCDon 3 Erythrocytes (RBC) 4.28 10*6/uL Low 4.6-6.[address] [facility] Work Phone: [phone] Hematocrit (HCT) 39.6 % Low 40-54 [facility] Work Phone: [phone] Hematocrit Volume Fraction (Bld) 39.6 % Low 40-54 [facility] Work Phone: [phone] Hemoglobin (HGB) 13.3 g/dL Normal 13.0-16.5 [facility] Work Phone: [phone] Platelets 223 10*3/mm3 Normal 150-450 [facility] Work Phone: [phone] Platelets #/vol (Bld) 223 10*3/mm3 Normal 150-450 [facility] Work Phone: [phone] RBC #/vol (Bld) 4.28 10*6/uL Low 4.6-6.2 [facility] Work Phone: [phone] WBC #/vol (Bld) 6.9 10*3/uL Normal 4.4-11.0 [facility] Work Phone: [phone] WBC (Leukocytes) 6.9 10*3/uL Normal 4.4-11.0 [facility] Work Phone: [phone] Lab Report: TSHon 11-23-2012 Thyroid stimulating hormone (TSH) 0.91 u[iU]/mL Normal 0.358-3.74 [facility] Work Phone: [phone] Replaced Document: [employer] E CG Observationson 02-29-2012 Pulse (Heart Rate) 414 ms Invalid Interpretation Code [facility] Work Phone: [phone] Clinical Lists 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: 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 Jose Enrique Finney MD Work Phone: [facility] 01-30-2025 11:29-0400 Body mass index (BMI) [Ratio] 22.8 kg/m2 Dr. Jose Enrique Finney MD Work Phone: [facility] 01-30-2025 11:29-0400 Body weight 66.[address] Jose Enrique Finney MD Work Phone: [facility] 01-30-2025 11:29-0400 Diastolic blood pressure 67 mm[Hg] Dr. Jose Enrique Finney MD Work Phone: [facility] 01-30-2025 11:29-0400 Heart rate 70 /min Dr. Jose Enrique Finney MD Work Phone: [facility] 01-30-2025 11:29-0400 Respiratory rate 18 /min Dr. Jose Enrique Finney MD Work Phone: 5(774)705-427910 [place] [address] 01-30-2025 11:29-0400 Systolic blood pressure 108 mm[Hg] Dr. Jose Enrique Finney MD Work Phone: 5(605)859-309010 [place] [address] 01-28-2025 14:09-0400 Body height 170.[address] Jose Enrique Finney MD Work Phone: 5(121)424-182959 [place] [address] 01-28-2025 14:09-0400 Body mass index (BMI) [Ratio] 22.7 kg/m2 Dr. Jose Enrique Finney MD Work Phone: 0(425)398-535559 [place] [address] 01-28-2025 14:09-0400 Body weight 65.[address] Jose Enrique Finney MD Work Phone: 9(186)737-765959 [place] [address] 01-09-2025 14:00-0400 Body temperature 97.3 [degF] Dr. Jose Enrique Finney MD Work Phone: 5(885)219-871559 [place] [address] 01-09-2025 14:00-0400 Diastolic blood pressure 66 mm[Hg] Dr. Jose Enrique Finney MD Work Phone: 3(593)148-836659 [place] [address] 01-09-2025 14:00-0400 Heart rate 60 /min Dr. Jose Enrique Finney MD Work Phone: 9(235)553-465159 [place] [address] 01-09-2025 14:00-0400 Respiratory rate 14 /min Dr. Jose Enrique Finney MD Work Phone: 9(222)018-943110 [place] [address] 01-09-2025 14:00-0400 SaO2% (BldA) [Mass fraction] 97 % Dr. Jose Enrique Finney MD Work Phone: 6(408)635-563959 [place] [address] 01-09-2025 14:00-0400 Systolic blood pressure 110 mm[Hg] Dr. Jose Enrique Finney MD Work Phone: 8(038)717-047559 [place] [address] 01-09-2025 12:48-0400 Body height 170.[address] Jose Enrique Finney MD Work Phone: 7(203)971-332859 [place] [address] 01-09-2025 12:48-0400 Body mass index (BMI) [Ratio] 22.8 kg/m2 Dr. Jose Enrique Finney MD Work Phone: 4(845)986-893710 [place] [address] 01-09-2025 12:48-0400 Body weight [address] Jose Enrique Finney MD Work Phone: 7(208)581-844910 [place] [address] 11-01-2024 10:42-0400 Body height 170.[address] Jose Enrique Finney MD Work Phone: 5(109)423-560410 [place] [address] 11-01-2024 10:42-0400 Body mass index (BMI) [Ratio] 24.4 kg/m2 Dr. Jose Enrique Finney MD Work Phone: 6(784)648-599910 [place] [address] 11-01-2024 10:42-0400 Body weight 70.[address] Jose Enrique Finney MD Work Phone: 4(219)850-509159 [place] [address] 11-01-2024 10:42-0400 Diastolic blood pressure 79 mm[Hg] Dr. Jose Enrique Finney MD Work Phone: 0(036)481-503437 [address] 11-01-2024 10:42-0400 Heart rate 78 /min Dr. Jose Enrique Finney MD Work Phone: 4(160)996-775510 [place] [address] 11-01-2024 10:42-0400 Respiratory rate 18 /min Dr. Jose Enrique Finney MD Work Phone: 6(546)322-968110 [place] [address] 11-01-2024 10:42-0400 Systolic blood pressure 131 mm[Hg] Dr. Jose Enrique Finney MD Work Phone: 2(432)983-560610 [place] [address] 10-17-2024 14:06-0400 Body height 170.[address] Jose Enrique Finney MD Work Phone: 4(018)496-233959 [place] [address] 10-17-2024 14:06-0400 Body mass index (BMI) [Ratio] 24.3 kg/m2 Dr. Jose Enrique Finney MD Work Phone: 9(975)976-990010 [place] [address] 10-17-2024 14:06-0400 Body weight 70.[address] Jose Enrique Finney MD Work Phone: 0(621)983-764810 [place] [address] 10-17-2024 14:06-0400 Diastolic blood pressure 73 mm[Hg] Dr. Jose Enrique Finney MD Work Phone: 8(477)682-612710 [place] [address] 10-17-2024 14:06-0400 Heart rate 78 /min Dr. Jose Enrique Finney MD Work Phone: 2(789)080-778410 [place] [address] 10-17-2024 14:06-0400 Respiratory rate 16 /min Dr. Jose Enrique Finney MD Work Phone: 9(293)887-835959 [place] [address] 10-17-2024 14:06-0400 SaO2% (BldA) [Mass fraction] 98 % Dr. Jose Enirque Finney MD Work Phone: 2(412)989-309459 [place] [address] 10-17-2024 14:06-0400 Systolic blood pressure 119 mm[Hg] Dr. Jose Enrique Finney MD Work Phone: 9(336)980-357959 [place] [address] 10-13-2024 09:34-0400 Body temperature 97.9 [degF] Dr. Jose Enrique Finney MD Work Phone: 4(576)768-090759 [place] [address] 10-13-2024 09:34-0400 Diastolic blood pressure 70 mm[Hg] Dr. Jose Enrique Finney MD Work Phone: 8(630)248-630359 [place] [address] 10-13-2024 09:34-0400 Heart rate 80 /min Dr. Jose Enrique Finney MD Work Phone: 8(354)760-408359 [place] [address] 10-13-2024 09:34-0400 Respiratory rate 20 /min Dr. Jose Enrique Finney MD Work Phone: 8(168)134-113959 [place] [address] 10-13-2024 09:34-0400 SaO2% (BldA) [Mass fraction] 96 % Dr. Jose Enrique Finney MD Work Phone: 8(928)778-199859 [place] [address] 10-13-2024 09:34-0400 Systolic blood pressure 146 mm[Hg] Dr. Jose Enrique Finney MD Work Phone: 0(402)370-470359 [place] [address] 10-13-2024 04:48-0400 Body mass index (BMI) [Ratio] 22.8 kg/m2 Dr. Jose Enrique Finney MD Work Phone: [facility] 10-13-2024 04:48-0400 Body weight [address] Jose Enrique Finney MD Work Phone: [facility] 10-12-2024 14:53-0400 Body height 170.[address] Jose Enrique Finney MD Work Phone: [facility] 10-11-2024 23:01-0400 Body temperature 98.1 [degF] Dr. Jose Enrique Finney MD Work Phone: [facility] 10-11-2024 23:01-0400 Diastolic blood pressure 59 mm[Hg] Dr. Jose Enrique Finney MD Work Phone: 6(802)730-387310 [place] [address] 10-11-2024 23:01-0400 Heart rate 62 /min Dr. Jose Enrique Finney MD Work Phone: 0(032)327-008137 [address] 10-11-2024 23:01-0400 Respiratory rate 16 /min Dr. Jose Enrique Finney MD Work Phone: [facility] 10-11-2024 23:01-0400 SaO2% (BldA) [Mass fraction] 95 % Dr. Jose Enrique Finney MD Work Phone: [facility] 10-11-2024 23:01-0400 Systolic blood pressure 122 mm[Hg] Dr. Jose Enrique Finney MD Work Phone: 1(738)295-311610 [place] [address] 10-11-2024 20:53-0400 Body height 170.[address] Jose Enrique Finney MD Work Phone: [facility] 10-11-2024 20:53-0400 Body mass index (BMI) [Ratio] 22.9 kg/m2 Dr. Jose Enrique Finney MD Work Phone: [facility] 10-11-2024 20:53-0400 Body weight 66.[address] Jose Enrique Finney MD Work Phone: [facility] 10-08-2024 15:49-0400 Body temperature 97.6 [degF] Dr. Jose Enrique Finney MD Work Phone: [facility] 10-08-2024 15:49-0400 Diastolic blood pressure 76 mm[Hg] Dr. Jose Enrique Finney MD Work Phone: [facility] 10-08-2024 15:49-0400 Heart rate 68 /min Dr. Jose Enrique Finney MD Work Phone: 5(470)125-879310 [place] [address] 10-08-2024 15:49-0400 Respiratory rate 17 /min Dr. Jose Enrique Finney MD Work Phone: [facility] 10-08-2024 15:49-0400 SaO2% (BldA) [Mass fraction] 97 % Dr. Jose Enrique Finney MD Work Phone: 8(483)906-420610 [place] [address] 10-08-2024 15:49-0400 Systolic blood pressure 151 mm[Hg] Dr. Jose Enrique Finney MD Work Phone: 7(414)535-682410 [place] [address] 10-08-2024 06:23-0400 Body mass index (BMI) [Ratio] 22.8 kg/m2 Dr. Jose Enrique Finney MD Work Phone: [phone] [address] 10-08-2024 06:23-0400 Body weight 66.[address] Jose Enrique Finney MD Work Phone: [facility] 10-08-2024 00:11-0400 Body height 170.[address] Jose Enrique Finney MD Work Phone: [facility] 10-07-2024 23:11-0400 Body temperature 98 [degF] Dr. Jose Enrique Finney MD Work Phone: [facility] 10-07-2024 23:11-0400 Diastolic blood pressure 71 mm[Hg] Dr. Jose Enrique Finney MD Work Phone: [facility] 10-07-2024 23:11-0400 Heart rate 61 /min Dr. Jose Enrique Finney MD Work Phone: [facility] 10-07-2024 23:11-0400 Respiratory rate 18 /min Dr. Jose Enrique Finney MD Work Phone: [facility] 10-07-2024 23:11-0400 SaO2% (BldA) [Mass fraction] 96 % Dr. Jose Enrique Finney MD Work Phone: [facility] 10-07-2024 23:11-0400 Systolic blood pressure 110 mm[Hg] Dr. Jose Enrique Finney MD Work Phone: 7([phone] [place] [address] 10-07-2024 20:06-0400 Body height 170.[address] Jose Enrique Finney MD Work Phone: 6(352)[phone] [place] [address] 10-07-2024 20:06-0400 Body mass index (BMI) [Ratio] 23.4 kg/m2 Dr. Jose Enrique Finney MD Work Phone: 9(729)[phone] [place] [address] 10-07-2024 20:06-0400 Body weight 67.[address] Jose Enrique Finney MD Work Phone: 7(198)[phone] [place] [address] 07-11-2024 10:50-0500 Body mass index (BMI) [Ratio] 24.5 kg/m2 Dr. Jose Enrique Finney MD Work Phone: 7([phone])[phone] [place] [address] 07-11-2024 10:50-0500 Body weight 68.[address] Jose Enrique Finney MD Work Phone: 7(297)[phone] [place] [address] 07-11-2024 10:50-0500 Diastolic blood pressure 75 mm[Hg] Dr. Jose Enrique Finney MD Work Phone: 5(177)[phone] [place] [address] 07-11-2024 10:50-0500 Heart rate 66 /min Dr. Jose Enrique Finney MD Work Phone: [facility] 07-11-2024 10:50-0500 Respiratory rate 18 /min Dr. Jose Enrique Finney MD Work Phone: [facility] 07-11-2024 10:50-0500 SaO2% (BldA) [Mass fraction] 98 % Dr. Jose Enrique Finney MD Work Phone: 9([phone])[phone] [place] [address] 07-11-2024 10:50-0500 Systolic blood pressure 131 mm[Hg] Dr. Jose Enrique Finney MD Work Phone: [facility] 09-27-2023 10:45-0500 Body height 167.[address] Jose Enrique Finney Work Phone: [facility] 09-27-2023 10:45-0500 Body mass index (BMI) [Ratio] 25.4 kg/m2 Dr. Jose Enrique Finney Work Phone: [facility] 09-27-2023 10:45-0500 Body weight 71.[address] Jose Enrique Finney Work Phone: [facility] 09-27-2023 10:45-0500 Diastolic blood pressure 88 mm[Hg] Dr. Jose Enrique Finney Work Phone: [facility] 09-27-2023 10:45-0500 Heart rate 74 /min Dr. Jose Enrique Finney Work Phone: [facility] 09-27-2023 10:45-0500 Respiratory rate 18 /min Dr. Jose Enrique Finney Work Phone: [facility] 09-27-2023 10:45-0500 SaO2% (BldA) [Mass fraction] 95 % Dr. Jose Enrique Finney Work Phone: [facility] 09-27-2023 10:45-0500 Systolic blood pressure 144 mm[Hg] Dr. Jose Enrique Finney Work Phone: [facility] 06-01-2023 11:14-0400 Body temperature 97.8 [degF] Dr. Jose Enrique Finney Work Phone: [facility] 06-01-2023 11:14-0400 Diastolic blood pressure 72 mm[Hg] Dr. Jose Enrique Finney Work Phone: [facility] 06-01-2023 11:14-0400 Heart rate 81 /min Dr. Jose Enrique Finney Work Phone: [facility] 06-01-2023 11:14-0400 Systolic blood pressure 119 mm[Hg] Dr. Jose Enrique Finney Work Phone: [facility] 06-01-2023 00:15-0400 Respiratory rate 16 /min Dr. Jose Enrique Finney Work Phone: [facility] 05-18-2023 11:03-0400 Body temperature 97.6 [degF] Dr. Jose Enrique Finney Work Phone: [facility] 05-18-2023 11:03-0400 Diastolic blood pressure 76 mm[Hg] Dr. Jose Enrique Finney Work Phone: [facility] 05-18-2023 11:03-0400 Heart rate 84 /min Dr. Jose Enrique Finney Work Phone: [facility] 05-18-2023 11:03-0400 Systolic blood pressure 126 mm[Hg] Dr. Jose Enrique Finney Work Phone: [facility] 05-11-2023 11:06-0400 Respiratory rate 16 /min Dr. Jose Enrique Finney Work Phone: [facility] 04-27-2023 11:01-0400 Body temperature 96.1 [degF] Dr. Jose Enrique Finney Work Phone: [facility] 04-27-2023 11:01-0400 Diastolic blood pressure 73 mm[Hg] Dr. Jose Enrique Finney Work Phone: [facility] 04-27-2023 11:01-0400 Heart rate 84 /min Dr. Jose Enrique Finney Work Phone: [facility] 04-27-2023 11:01-0400 Respiratory rate 18 /min Dr. Jose Enrique Finney Work Phone: [facility] 04-27-2023 11:01-0400 Systolic blood pressure 113 mm[Hg] Dr. Jose Enrique Finney Work Phone: [facility] 04-06-2023 11:07-0400 Body temperature 96.7 [degF] Dr. Jose Enrique Finney Work Phone: [facility] 04-06-2023 11:07-0400 Diastolic blood pressure 65 mm[Hg] Dr. Jose Enrique Finney Work Phone: [facility] 04-06-2023 11:07-0400 Heart rate 87 /min Dr. Jose Enrique Finney Work Phone: [facility] 04-06-2023 11:07-0400 Respiratory rate 18 /min Dr. Jose Enrique Finney Work Phone: [facility] 04-06-2023 11:07-0400 Systolic blood pressure 111 mm[Hg] Dr. Jose Enrique Finney Work Phone: [facility] 03-30-2023 10:48-0400 Body temperature 96 [degF] Dr. Jose Enrique Finney Work Phone: [facility] 03-30-2023 10:48-0400 Diastolic blood pressure 72 mm[Hg] Dr. Jose Enrique Finney Work Phone: [facility] 03-30-2023 10:48-0400 Heart rate 74 /min Dr. Jose Enrique Finney Work Phone: [facility] 03-30-2023 10:48-0400 Respiratory rate 18 /min Dr. Jose Enrique Finney Work Phone: [facility] 03-30-2023 10:48-0400 Systolic blood pressure 150 mm[Hg] Dr. Jose Enrique Finney Work Phone: [facility] 03-22-2023 13:00-0400 Body height 167.[address] Jose Enrique Finney Work Phone: [facility] 03-22-2023 12:57-0400 Body mass index (BMI) [Ratio] 24 kg/m2 Dr. Jose Enrique Finney Work Phone: [facility] 03-22-2023 12:57-0400 Body weight 67.[address] Jose Enrique Finney Work Phone: [facility] 03-22-2023 12:57-0400 Diastolic blood pressure 68 mm[Hg] Dr. Jose Enrique Finney Work Phone: [facility] 03-22-2023 12:57-0400 Heart rate 69 /min Dr. Jose Enrique Finney Work Phone: [facility] 03-22-2023 12:57-0400 Respiratory rate 18 /min Dr. Jose Enrique Finney Work Phone: [facility] 03-22-2023 12:57-0400 SaO2% (BldA) [Mass fraction] 94 % Dr. Jose Enrique Finney Work Phone: [facility] 03-22-2023 12:57-0400 Systolic blood pressure 121 mm[Hg] Dr. Jose Enrique Finney Work Phone: [facility] 02-24-2023 11:48-0400 Body temperature 97.5 [degF] Dr. Jose Enrique Finney Work Phone: [facility] 02-24-2023 11:48-0400 Diastolic blood pressure 64 mm[Hg] Dr. Jose Enrique Finney Work Phone: [facility] 02-24-2023 11:48-0400 Heart rate 80 /min Dr. Jose Enrique Finney Work Phone: [facility] 02-24-2023 11:48-0400 Respiratory rate 18 /min Dr. Jose Enrique Finney Work Phone: [facility] 02-24-2023 11:48-0400 Systolic blood pressure 110 mm[Hg] Dr. Jose Enrique Finney Work Phone: [facility] 01-22-2023 15:04-0400 Body weight 67.59 kg Krislyn Aberegg PA Work Phone: [facility] 01-22-2023 15:04-0400 Diastolic blood pressure 60 mm[Hg] Krislyn Aberegg PA Work Phone: [facility] 01-22-2023 15:04-0400 Heart rate 68 /min Krislyn Aberegg PA Work Phone: [facility] 01-22-2023 15:04-0400 Respiratory rate 16 /min Krislyn Aberegg PA Work Phone: [facility] 01-22-2023 15:04-0400 SaO2% (BldA) [Mass fraction] 98 % Krislyn Aberegg PA Work Phone: [facility] 01-22-2023 15:04-0400 Systolic blood pressure 102 mm[Hg] Krislyn Aberegg PA Work Phone: [facility] 09-24-2022 14:37-0500 Body height 167.[address] Jose Enrique Finney Work Phone: [facility] 09-24-2022 14:37-0500 Body mass index (BMI) [Ratio] 24.6 kg/m2 Dr. Jose Enrique Finney Work Phone: [facility] 09-24-2022 14:37-0500 Body weight 69.[address] Jose Enrique Finney Work Phone: [facility] 09-24-2022 14:37-0500 Diastolic blood pressure 58 mm[Hg] Dr. Jose Enrique Finney Work Phone: [facility] 09-24-2022 14:37-0500 Heart rate 72 /min Dr. Jose Enrique Finney Work Phone: [facility] 09-24-2022 14:37-0500 Respiratory rate 16 /min Dr. Jose Enrique Finney Work Phone: [facility] 09-24-2022 14:37-0500 Systolic blood pressure 108 mm[Hg] Dr. Jose Enrique Finney Work Phone: [facility] 03-28-2020 14:25-0400 Body temperature 37.0 degrees C [facility] [place] Comment on above: Result Comment: NOTE: PATIENT RESULTS AR E NOT CORRECTED FOR TEMPERATURE. Performed By: #### G VENITA #### [facility] [id number] [place] [address] 03-28-2020 12:57-0400 Body temperature 37.0 degrees C [facility] [place] Comment on above: Result Comment: NOTE: PATIENT RESULTS AR E NOT CORRECTED FOR TEMPERATURE. Performed By: #### G VENITA #### [facility] [address] [place] [address] 03-28-2020 12:09-0400 Body temperature 37.0 degrees C [facility] [place] Comment on above: Result Comment: NOTE: PATIENT RESULTS AR E NOT CORRECTED FOR TEMPERATURE. Performed By: #### G VENITA #### [facility] [address] [place] [address] 03-28-2020 10:59-0400 Body temperature 37.0 degrees C [facility] [place] Comment on above: Result Comment: NOTE: PATIENT RESULTS AR E NOT CORRECTED FOR TEMPERATURE. Performed By: #### G VENITA #### [facility] [address] [place] [address] 03-27-2020 23:11-0400 Body temperature 37.0 degrees C [facility] [place] Comment on above: Result Comment: NOTE: PATIENT RESULTS AR E NOT CORRECTED FOR TEMPERATURE. Performed By: #### G VENITA #### [facility] [address] [place] [address] 03-27-2020 03:07-0400 Body temperature 37.0 degrees C [facility] [place] Comment on above: Result Comment: NOTE: PATIENT RESULTS AR E NOT CORRECTED FOR TEMPERATURE. Performed By: #### V FPA3 ####[id number] [place] [address] 04-22-2017 11:03-0400 BMI (Body Mass Index) 24.12 kg/m2 Glenn Dowell MD [facility] Work Phone: 04-22-2017 11:03-0400 BP Diastolic 54 mm[Hg] Glenn Dowell MD [facility] Work Phone: 04-22-2017 11:03-0400 BP Systolic 100 mm[Hg] Glenn Dowell MD [facility] Work Phone: 04-22-2017 11:03-0400 Height 170.18 cm Glenn Dowell MD [facility] Work Phone: 04-22-2017 11:03-0400 Pulse (Heart Rate) 60 /min [facility] Work Phone: 04-22-2017 11:03-0400 Respiratory Rate 18 /min Glenn Dowell MD [facility] Work Phone: 04-22-2017 11:03-0400 Weight 69.85 kg Glenn Dowell MD [facility] Work Phone: 01-17-2017 11:34-0400 BMI (Body Mass Index) 25.53 kg/m2 [facility] Work Phone: 01-17-2017 11:34-0400 BP Diastolic 70 mm[Hg] [facility] Work Phone: 01-17-2017 11:34-0400 BP Systolic 120 mm[Hg] [facility] Work Phone: 01-17-2017 11:34-0400 Height 170.18 cm [facility] Work Phone: 01-17-2017 11:34-0400 Pulse (Heart Rate) 64 /min [facility] Work Phone: 01-17-2017 11:34-0400 Respiratory Rate 16 /min [facility] Work Phone: 01-17-2017 11:34-0400 Weight 73.94 kg [facility] Work Phone: 10-05-2016 15:05-0500 BMI (Body Mass Index) 25.57 kg/m2 Harper Sanchez PA-C [facility] Work Phone: 10-05-2016 15:05-0500 BP Diastolic 70 mm[Hg] [facility] Work Phone: 10-05-2016 15:05-0500 BP Systolic 110 mm[Hg] [facility] Work Phone: 10-05-2016 15:05-0500 Height 170.18 cm Harper Sanchez PA-C [facility] Work Phone: 10-05-2016 15:05-0500 Pulse (Heart Rate) 64 /min Harper Sanchez PA-C [facility] Work Phone: 10-05-2016 15:05-0500 Respiratory Rate 16 /min Harper Sanchez PA-C [facility] Work Phone: 10-05-2016 15:05-0500 Weight 74.05 kg Harper Sanchez PA-C [facility] Work Phone: 04-08-2016 15:26-0400 BSA (Body Surface Area) 1.88 m2 Harper Sanchez PA-C [facility] Work Phone: 04-30-2015 13:56-0400 Heart rate 61 /min Inga Rooney [facility] Work Phone: 02-29-2012 16:42-0400 Heart rate 414 ms Inga Rooney [facility] Work Phone: Encounters Encounter Date Encounter Type Care Provider Facility Start: 05-17-2025 End: 05-17-2025 ambulatory Jose Enrique Finney Facility:[facility] Start: 03-25-2025 End: 03-25-[address] Jose Enrique Finney MD Work Phone: -[facility] Start: 03-25-2025 End: 03-25-[address] Bhavesh Rios MD -[facility] Work Phone: Start: 03-09-2025 End: 03-09-[address] Jose Enrique Finney MD Work Phone: -[facility] Start: 03-09-2025 End: 03-09-[address] Bhavesh Rios MD -[facility] Work Phone: Start: 02-13-2025 End: 02-13-[address] Jose Enrique Finney MD -Laboratory [facility] Start: 02-13-2025 End: 02-13-[address] Jose Enrique Finney MD Work Phone: -Laboratory [facility] Start: 01-30-2025 End: 01-30-2025 Patient encounter procedure Harper Sanchez PA -[facility] Work Phone: Start: 01-30-2025 End: 01-30-2025 Harper Sanchez [place] -[facility] Work Phone: Start: 01-30-2025 End: 01-30-[address] Jose Enrique Finney MD Work Phone: [facility] Start: 01-28-2025 End: 01-28-[address] Cesar Kidd DO -[facility] Work Phone: Start: 01-28-2025 End: 01-28-2025 Dr. Bhavesh Rios MD -[facility] Start: 01-28-2025 End: 01-28-[address] Jose Enrique Finney MD Work Phone: [facility] Start: 01-09-2025 Non-patient / Non-visit Checo Chavez DO -[facility] Start: 01-09-2025 End: 01-09-2025 Admission to same day surgery center Checo Chavez DO -Endoscopy Work Phone: Start: 01-09-2025 End: 01-09-2025 Checo Chavez DO -Endoscopy Work Phone: Start: 01-09-2025 End: 01-09-[address] Jose Enrique Finney MD Work Phone: [facility] Work Phone: Start: 12-26-2024 End: 12-26-[address] Jose Enrique Finney MD Work Phone: [facility] Work Phone: Start: 12-26-2024 End: 12-26-[address] Jose Enrique Finney MD -Radiology [place] Work Phone: Start: 12-26-2024 End: 12-26-2024 Dr. Jose Enrique Finney MD -Radiology [place] Work Phone: Start: 12-26-2024 End: 12-26-2024 ambulatory Jose Enrique Finney Facility:[facility] Start: 12-24-2024 End: 12-24-[address] Jose Enrique Finney MD Work Phone: [facility] Work Phone: Start: 12-24-2024 End: 12-24-[address] Bhavesh Rios MD -[facility] Work Phone: Start: 12-24-2024 End: 12-24-2024 Dr. Bhavesh Rios MD -[facility] Work Phone: Start: 12-10-2024 End: 12-10-[address] Jose Enrique Finney MD Work Phone: [facility] Work Phone: Start: 12-10-2024 End: 12-10-[address] Jose Enrique Finney MD -Laboratory [facility] Work Phone: Start: 12-10-2024 End: 12-10-2024 Dr. Jose Enrique Finney MD -Laboratory, [facility] Work Phone: Start: 12-10-2024 End: 12-10-2024 ambulatory Jose Enrique Finney Facility:[facility] Start: 12-06-2024 End: 12-06-2024 Patient encounter procedure Geeta TIJERINAC -Laboratory Work Phone: Start: 12-06-2024 End: 12-06-2024 Geeta TIJERINAC -Laboratory Work Phone: Start: 12-06-2024 End: 12-06-[address] Jose Enrique Finney MD Work Phone: [facility] Work Phone: Start: 11-21-2024 End: 11-21-[address] Jose Enrique Finney MD Work Phone: [facility] Work Phone: Start: 11-21-2024 End: 11-21-[address] Jose Enrique Finney MD -Laboratory, [facility] Start: 11-21-2024 End: 11-21-2024 Dr. Jose Enrique Finney MD -Laboratory, [facility] Start: 11-21-2024 End: 11-21-2024 ambulatory Jose Enrique Finney Facility:[facility] Start: 11-01-2024 End: 11-01-2024 Patient encounter procedure Harper DOYLE -[facility] Work Phone: Start: 11-01-2024 End: 11-01-2024 Harper Sanchez [place] -[facility] Work Phone: Start: 11-01-2024 End: 11-01-2024 ambulatory Jose Enrique Finney Facility:[facility] Start: 10-25-2024 End: 10-25-[address] Jose Enrique Finney MD -Laboratory, [facility] Start: 10-25-2024 End: 10-25-2024 Dr. Jose Enrique Finney MD -Laboratory, [facility] Start: 10-25-2024 End: 10-25-2024 ambulatory Jose Enrique Finney Facility:[facility] Start: 10-17-2024 End: 10-17-2024 Patient encounter procedure Geeta SAGASTUME -[facility] Work Phone: Start: 10-17-2024 End: 10-17-2024 Geeta SAGASTUME -[facility] Work Phone: Start: 10-17-2024 End: 10-17-2024 ambulatory Jose Enrique Finney Facility:[facility] Start: 10-16-2024 End: 10-16-[address] Jose Enrique Finney MD Work Phone: [facility] Work Phone: Start: 10-16-2024 End: 10-16-[address] Jose Enrique Finney MD -Laboratory, [facility] Start: 10-16-2024 End: 10-16-2024 Dr. Jose Enrique Finney MD -Laboratory, [facility] Start: 10-16-2024 End: 10-16-2024 ambulatory Jose Enrique Finney Facility:[facility] Start: 10-13-2024 Non-patient / Non-visit Dr. García Cabezas MD -[facility] Work Phone: Start: 10-13-2024 Dr. García Cabezas MD -[facility] Work Phone: Start: 10-12-2024 ambulatory Checo Chavez Facility :[facility] Start: 10-12-2024 Non-patient / Non-visit Checocindy Chavez DO -[facility] Start: 10-12-2024 [facility] DO -[facility] Start: 10-11-2024 ambulatory García Cabezas [facility] ility:[facility] Start: 10-11-2024 End: 10-13-2024 Dr. García Cabezas MD -Progressive Care Unit Work Phone: Start: 10-11-2024 End: 10-13-2024 Evaluation and management of inpatient Dr. Germán Landeros DO -Progressive Care Unit Work Phone: Start: 10-11-2024 End: 10-11-[address] Jose Enrique Finney MD Work Phone: [facility] Work Phone: Start: 10-11-2024 End: 10-11-[address] Jose Enrique Finney MD -Laboratory, [place] Work Phone: Start: 10-11-2024 End: 10-11-2024 Dr. Jose Enrique Finney MD -[facility] Work Phone: Start: 10-10-2024 End: 10-11-2024 ambulatory Jose Enrique Finney Facility:[facility] Start: 10-10-2024 End: 10-10-[address] Bhavesh Rios MD -[facility] Work Phone: Start: 10-10-2024 End: 10-10-2024 Dr. Bhavesh Rios MD -[facility] Work Phone: Start: 10-08-2024 Non-patient / Non-visit Dr. Bernabe Casey -[facility] Work Phone: Start: 10-08-2024 Dr. Bernabe gomez [facility] Work Phone: Start: 10-08-2024 End: 10-08-2024 ambulatory Jose Enrique Finney Facility:[facility] Start: 10-08-2024 End: 10-08-[address] Bhavesh Rios MD -[facility] Work Phone: Start: 10-08-2024 End: 10-08-2024 Dr. Bhavesh Rios MD -[facility] Work Phone: Start: 10-07-2024 End: 10-08-2024 Evaluation and management of inpatient Dr. Bernabe Casey DO [facility] 2 Work Phone: Start: 10-07-2024 End: 10-08-[address] Jose Enrique Finney MD Work Phone: [facility] Work Phone: Start: 10-07-2024 End: 10-08-2024 ambulatory [facility] Facility:[facility] Start: 10-07-2024 Non-patient / Non-visit Dr. Kira Lerma MD -[facility] Work Phone: Start: 10-07-2024 End: 10-08-2024 Dr. Bernabe Casey DO -Medical Surgical 2 Work Phone: Start: 10-07-2024 End: 10-07-2024 Emergency department patient visit Dr. Jose Enrique Finney MD Work Phone: -Emergency Department Work Phone: Start: 09-25-2024 End: 09-25-2024 ambulatory [facility] Start: 09-25-2024 End: 09-25-[address] Bhavesh Rios MD [facility] Work Phone: Start: 09-25-2024 End: 09-25-2024 Dr. Bhavesh Rios MD [facility] Work Phone: Start: 09-24-2024 End: 09-24-2024 ambulatory Jose Enrique Finney Facility:[facility] Start: 09-24-2024 End: 09-24-[address] Bhavesh Rios MD [facility] Work Phone: Start: 09-24-2024 End: 09-24-2024 Dr. Bhavesh Rios MD [facility] Work Phone: Start: 09-11-2024 End: 09-11-2024 ambulatory Jose Enrique Sharmin Facility:[facility] Start: 09-11-2024 End: 09-11-[address] [facility] Work Phone: Start: 09-11-2024 End: 09-11-2024 Dr. Bhavesh Rios MD [facility] Work Phone: Start: 09-04-2024 End: 09-04-2024 ambulatory [facility] Start: 09-04-2024 End: 09-04-[address] [facility] Work Phone: Start: 09-04-2024 End: 09-04-2024 Dr. Bhavesh Rios MD -[facility] Work Phone: Start: 08-13-2024 End: 08-13-2024 Patient encounter procedure Harper Sanchez PA -Laboratory Work Phone: Start: 08-13-2024 End: 08-13-2024 ambulatory Jose Enrique Finney Facility:[facility] Start: 08-03-2024 End: 08-03-2024 Patient encounter procedure Harper Sanchez PA -Laboratory Work Phone: Start: 08-03-2024 End: 08-03-[address] Bhavesh Rios MD -[facility] Work Phone: Start: 08-03-2024 End: 08-03-2024 ambulatory Jose Enrique Finney Facility[facility] Start: 07-11-2024 End: 07-11-[address] Ponce Kent MD -[facility] Work Phone: Start: 07-11-2024 End: 07-11-2024 ambulatory Jose Enrique Finney [facility] Start: 06-25-2024 End: 06-25-2024 ambulatory Jose Enrique Finney [facility] Start: 06-25-2024 End: 06-25-[address] Bhavesh Rios MD -[facility] Work Phone: Start: 10-28-2023 End: 10-28-[address] Jose Enrique Finney Work Phone: [facility] Work Phone: Start: 10-28-2023 End: 10-28-[address] Jose Enrique Finney Work Phone: [facility] Work Phone: Start: 10-18-2023 End: 10-18-[address] Jose Enrique Finney Work Phone: [facility] Work Phone: Start: 10-18-2023 End: 10-18-[address] Jose Enrique Finney Work Phone: [facility] Start: 10-17-2023 End: 10-17-[address] Jose Enrique Finney Work Phone: [facility] Work Phone: Start: 09-27-2023 End: 09-27-[address] Jose Enrique Finney Work Phone: [facility] Work Phone: Start: 07-21-2023 End: 07-21-[address] Jose Enrique Finney Work Phone: [facility] Work Phone: Start: 06-30-2023 End: 06-30-[address] Jose Enrique Finney Work Phone: [facility] Work Phone: Start: 06-30-2023 End: 06-30-[address] Jose Enrique Finney Work Phone: [facility] Work Phone: Start: 06-01-2023 Non-patient / Non-visit Dr. Jose Enrique Finney Work Phone: [facility] Start: 06-01-2023 End: 06-01-[address] Jose Enrique Finney Work Phone: [facility] Work Phone: Start: 06-01-2023 End: 06-01-[address] Jose Enrique Finney [facility] Phone: [facility] Work Phone: Start: 05-18-2023 Non-patient / Non-visit Dr. Jose Enrique Finney Work Phone: [facility] Start: 05-18-2023 End: 05-31-[address] Jose Enrique Finney Work Phone: [facility] Work Phone: Start: 05-11-2023 Non-patient / Non-visit Dr. Jose Enrique Finney Work Phone: [facility] Start: 05-04-2023 Non-patient / Non-visit Dr. Jose Enrique Finney Work Phone: [facility] Start: 04-27-2023 Non-patient / Non-visit Dr. Jose Enrique Finney Work Phone: [facility] Start: 04-27-2023 End: 04-30-[address] Jose Enrique Finney Work Phone: [facility] Work Phone: Start: 04-27-2023 End: 04-30-[address] Jose Enrique Finney Work Phone: [facility] Work Phone: Start: 04-19-2023 Non-patient / Non-visit Dr. Jose Enrique Finney Work Phone: [facility] Start: 04-13-2023 Non-patient / Non-visit Dr. Jose Enrique Finney Work Phone: [facility] Start: 04-06-2023 Non-patient / Non-visit Dr. Jose Enrique Finney Work Phone: [facility] Start: 04-06-[address] Jose Enrique Finney Work Phone: [facility] Work Phone: Start: 03-30-2023 Non-patient / Non-visit Dr. Jose Enrique Finney Work Phone: [facility] Start: 03-30-2023 End: 03-31-[address] Jose Enrique Finney Work Phone: [facility] Work Phone: Start: 03-30-2023 End: 03-31-[address] Jose Enrique Finney Work Phone: [facility] Work Phone: Start: 03-29-2023 End: 03-29-[address] Jose Enrique Finney Work Phone: [facility] Work Phone: Start: 03-29-2023 End: 03-29-[address] Jose Enrique Finney Work Phone: [facility] Start: 03-23-2023 Non-patient / Non-visit Dr. Jose Enrique Finney Work Phone: [facility] Start: 03-22-2023 End: 03-22-[address] Jose Enrique Finney Work Phone: [facility] Work Phone: Start: 03-18-2023 End: 03-18-[address] Jose Enrique Finney Work Phone: [facility] Work Phone: Start: 03-16-2023 Non-patient / Non-visit Dr. Jose Enrique Finney Work Phone: [facility] Start: 03-09-2023 Non-patient / Non-visit Dr. Jose Enrique Finney Work Phone: [facility] Start: 03-02-2023 Non-patient / Non-visit Dr. Jose Enrique Finney Work Phone: [facility] Start: 02-23-2023 Non-patient / Non-visit Dr. Jose Enrique Finney Work Phone: [facility] Start: 02-23-2023 End: 02-28-[address] Jose Enrique Finney Work Phone: [facility] Work Phone: Start: 02-23-2023 End: 02-28-[address] Jose Enrique Finney Work Phone: [facility] Work Phone: Start: 02-16-2023 Non-patient / Non-visit Dr. Jose Enrique Finney Work Phone: [facility] Start: 01-22-2023 End: 01-22-2023 ambulatory Facility:[facility] Start: 01-22-2023 End: 01-22-2023 Patient encounter procedure Gurinder DOYLE Work Phone: [facility] Comment on above: Abrasion of left ear , initial encounter (Primary Dx) Start: 01-21-2023 End: 01-21-[address] Jose Enrique Finney Work Phone: [facility] Work Phone: Start: 01-11-2023 End: 01-11-[address] Jose Enrique Finney Work Phone: [facility] Work Phone: Start: 01-11-2023 End: 01-11-[address] Jose Enrique Fin[facility] Start: 12-08-2022 End: 12-08-[address] Jose Enrique Finney Work Phone: [facility] Start: 12-06-2022 End: 12-06-[address] Jose Enrique Finney Work Phone: [facility] Start: 10-20-2022 End: 10-20-[address] Jose Enrique Finney Work Phone: [facility] Work Phone: Start: 10-20-2022 End: 10-20-[address] Jose Enrique Finney Work Phone: [facility] Start: 09-24-2022 End: 09-24-[address] oJse Enrique Finney Work Phone: [facility] Start: 09-23-2022 Non-patient / Non-visit Dr. Jose Enrique Finney Work Phone: [facility] Start: 09-02-2022 Non-patient / Non-visit Dr. Jose Enrique Finney Work Phone: [facility] Start: 09-02-2022 End: 09-02-[address] Jose Enrique Finney Work Phone: [facility] Work Phone: Start: 09-02-2022 End: 09-02-[address] Jose Enrique Finney Work Phone: [facility] Start: 08-25-2022 End: 08-25-[address] Jose Enrique Finney Work Phone: [facility] Start: 07-03-2022 End: 07-03-[address] Jose Enrique Finney Work Phone: [facility] Start: 05-28-2022 End: 05-28-[address] Jose Enrique Finney Work Phone: [facility] Start: 05-07-2022 End: 05-07-[address] Jose Enrique Finney Work Phone: [facility] Work Phone: Start: 05-07-2022 End: 05-07-[address] Jose Enrique Finney Work Phone: [facility] Start: 01-28-2022 End: 01-28-[address] Jose Enrique Finney Work Phone: [facility] Start: 11-11-2021 End: 11-11-[address] Jose Enrique Finney Work Phone: [facility] Start: 09-23-2021 End: 09-23-[address] Jose Enrique Finney Work Phone: [facility] Start: 07-17-2020 End: 07-17-2020 Subsequent hospital visit by physician Catracho Ash Work Phone: [facility] Start: 04-24-2020 End: 04-24-2020 Subsequent hospital visit by physician Catracho Ash Work Phone: [facility] Procedures Date Procedure Procedure Detail Performing Clinician Start: 02-13-2025 Total iron binding capacity measurement Dr. Jose Enrique Finney MD Work Phone: Start: 02-13-2025 Vitamin D, 25-hydroxy measurement Dr. Karen Finney MD Work Phone: Comment on above: Vitamin D StatusDeficiency: <20 ng/mL (5 0nmol/L)Insufficiency: 20-30 ng/mL (50-75 nmol/L)Sufficiency: 30-100 ng/mL (75-250 nmol/L)Toxicity: >100 ng/mL (>250 nmol/L) Start: 01-28-2025 X-ray of knee, four or more views Dr[address] Karen Finney MD Work Phone: Start: 01-09-[address] Jose Enrique pappas MD Work Phone: Start: 12-26-2024 X-ray of chest, PA and lateral views Dr. Jose Enrique Finney MD Work Phone: Start: 12-10-2024 Urine microalbumin/creatinine ratio measurement Dr. Jose Enrique Finney MD Work Phone: Comment on above: Previous reported result: 805.4 mg/g CRE Edited by: PADMINI on 01/18/25:0949 AMENDED REPORT 01/18/25 0949 MALB:CREAT previously reported as: 805.4 mg/g CRE Start: 12-10-2024 Urine microscopy: red cells Dr. Jose Enrique borrero MD Work Phone: Start: 12-10-2024 Urnls dip stick/tablet reagent auto microscopy Dr. Jose Enrique Finney MD Work Phone: Start: 12-06-[address] Jose Enrique Finney MD Work Phone: Start: 12-06-2024 End: 12-06-2024 Blood count smear mcrscp w/mnl difrntl wbc count Dr. Jose Enrique Finney MD Work Phone: Start: 12-06-2024 Mean corpuscular hemoglobin concentration determination Dr. Jose Enrique Finney MD Work Phone: Start: 12-06-2024 Nucleated red blood cell count procedure Dr. Jose Enrique Finney MD Work Phone: Start: 12-06-2024 Platelet mean volume determination Dr. Jose Enrique Finney MD Work Phone: Start: 12-06-2024 Total cholesterol:HDL ratio measurement Dr. Jose Enrique Finney MD Work Phone: Start: 12-06-2024 Vitamin D, 25-hydroxy measurement Dr. Karen Finney MD Work Phone: Comment on above: Vitamin D StatusDeficiency: <20 ng/mL (5 0nmol/L)Insufficiency: 20-30 ng/mL (50-75 nmol/L)Sufficiency: 30-100 ng/mL (75-250 nmol/L)Toxicity: >100 ng/mL (>250 nmol/L) Start: 11-21-2024 Blood count smear mcrscp w/mnl difrntl wbc count Dr. Jose Enrique Finney MD Work Phone: Start: 11-21-2024 Mean corpuscular hemoglobin concentration determination Dr. Jose Enrique Finney MD Work Phone: Start: 11-21-2024 Nucleated red blood cell count procedure Dr. Jose Enrique Finney MD Work Phone: Start: 11-21-2024 Platelet mean volume determination Dr. Jose Enrique Finney MD Work Phone: Start: 11-21-2024 Total iron binding capacity measurement Dr. Jose Enrique Finney MD Work Phone: Start: 10-25-2024 Blood count smear mcrscp w/mnl difrntl wbc count Dr. Jose Enrique Finney MD Work Phone: Start: 10-25-2024 Mean corpuscular hemoglobin concentration determination Dr. Jose Enrique Finney MD Work Phone: Start: 10-25-2024 Nucleated red blood cell count procedure Dr. Jose Enrique Finney MD Work Phone: Start: 10-25-2024 Platelet mean volume determination Dr. Jose Enrique Finney MD Work Phone: Start: 10-25-2024 Total iron binding capacity measurement Dr. Jose Enrique Finney MD Work Phone: Start: 10-16-2024 Blood count smear mcrscp w/mnl difrntl wbc count Dr. Jose Enrique Finney MD Work Phone: Start: 10-16-2024 Mean corpuscular hemoglobin concentration determination Dr. Jose Enrique Finney MD Work Phone: Start: 10-16-2024 Nucleated red blood cell count procedure Dr. Jose Enrique Finney MD Work Phone: Start: 10-16-2024 Platelet mean volume determination Dr. Jose Enrique Finney MD Work Phone: Start: 10-13-2024 Blood count smear mcrscp w/mnl difrntl wbc count Dr. Jose Enrique Finney MD Work Phone: Start: 10-13-[address] Jose Enrique Finney MD Work Phone: Start: 10-13-2024 Mean corpuscular hemoglobin concentration determination Dr. Jose Enrique Finney MD Work Phone: Start: 10-13-2024 Nucleated red blood cell count procedure Dr. Jose Enrique Finney MD Work Phone: Start: 10-13-2024 Platelet mean volume determination Dr. Jose Enrique Finney MD Work Phone: Start: 10-12-[address] Jose Enrique pappas MD Work Phone: Start: 10-12-2024 Serum inorganic phosphate measurement Dr. Jose Enrique Finney MD Work Phone: Start: 10-11-2024 Calculation of international normalized ratio Dr. Jose Enrique Finney MD Work Phone: Start: 10-11-2024 Mean corpuscular hemoglobin concentration determination Dr. Jose Enrique Finney MD Work Phone: Start: 10-11-2024 Platelet mean volume determination Dr. Jose Enrique Finney MD Work Phone: Start: 10-11-2024 Total iron binding capacity measurement Dr. Jose Enrique Finney MD Work Phone: Start: 10-11-2024 Vitamin D, 25-hydroxy measurement Dr. Karen Finney MD Work Phone: Start: 10-11-2024 Measurement of occult blood in stool specimen using immunoassay Dr. Jose Enrique Finney MD Work Phone: Start: 10-08-[address] Jose Enrique Finney MD Work Phone: Start: 10-08-2024 Blood count smear mcrscp w/mnl difrntl wbc count Dr. Jose Enrique Finney MD Work Phone: Start: 10-08-2024 Mean corpuscular hemoglobin concentration determination Dr. Jose Enrique Finney MD Work Phone: Start: 10-08-2024 Nucleated red blood cell count procedure Dr. Jose Enrique Finney MD Work Phone: Start: 10-08-2024 Platelet mean volume determination Dr. Jose Enrique Finney MD Work Phone: Start: 10-07-2024 Urine microscopy: red cells Dr. Jose Enrique borrero MD Work Phone: Start: 10-07-2024 Urnls dip stick/tablet reagent auto microscopy Dr. Jose Enrique Finney MD Work Phone: Start: 10-07-2024 X-ray of chest, PA and lateral views Dr. Jose Enrique Finney MD Work Phone: Start: 10-07-2024 CT of head without contrast Dr. Jose Enrique borrero MD Work Phone: Start: 10-07-2024 SARS-CoV-2, Influenza & RSV (PCR) Dr. Karen Finney MD Work Phone: Start: 10-07-2024 Dr. Jose Enrique Finney MD Work Phone: Start: 04-13-[address] Jose Enrique borrero Work Phone: Start: 04-13-2023 Investigation of transfusion reaction Dr. Jose Enrique Finney Work Phone: Start: 04-13-2023 Microbial culture, routine Dr. Jose Enrique pappas Work Phone: Start: 02-16-[address] Jose Enrique borrero Work Phone: Start: 02-16-2023 Investigation of transfusion reaction Dr. Jose Enrique Finney Work Phone: Start: 02-16-2023 Microbial culture, routine Dr. Jose Enrique Bruce nnnima Work Phone: Start: 12-18-2020 Antibody screen Comment on above: Order Comment: [place]: M Patient transfused or in the past 3 months: NO Is This Patient Going To Surgery? Y Surgery Date: 12/18/20 Start: 04-24-2020 Radex spine cervical 2 or 3 views Marlena Ash Work Phone: Start: 03-27-2020 Echocardiography Start: 03-27-2020 Antibody screen Comment on above: Performed By: #### GLUPO #### [facility] [id number] [place] [address] Start: 06-16-2017 End: 06-16-2017 *BMP Glenn Dowell MD Start: 06-09-2017 End: 06-10-2017 *BMP Glenn Dowell MD Start: 05-09-2017 End: 06-09-2017 *BMP Glenn Dowell MD Start: 05-03-2017 End: 05-03-2017 Prgrmg eval implantable in prsn dual lead dfb Harper Sanchez PA-C Work Phone: Start: 04-27-2017 End: 04-27-2017 Magnesium [Mass/volume] in Serum or Plasma Glenn Dowell MD Start: 04-27-2017 End: 04-27-2017 Magnesium Glenn Dowell MD Start: 04-22-2017 End: 04-27-2017 *BMP Glenn Dowell MD Start: 04-22-2017 End: 05-11-2017 Echocardiography Glenn Dowell MD Start: 04-22-2017 End: 04-27-2017 *BMP Glenn Dowell MD Start: 04-15-2017 End: 04-21-2017 *BMP Glenn Dowell MD Start: 04-15-2017 End: 04-15-2017 Natriuretic peptide B [Mass/volume] in Blood Glenn Dowell MD Start: 04-15-2017 End: 04-21-2017 *ALEX Dowell MD Start: 04-15-2017 End: 04-15-2017 BNP Glenn Dowell MD Start: 01-20-2017 End: 01-21-2017 *BMP Harper Sanchez PA-C Work Phone: Start: 01-20-2017 End: 01-21-2017 *CBC with Differential Harper Sanchez PA-C Work Phone: Start: 01-20-2017 End: 01-21-2017 Magnesium [Mass/volume] in Serum or Plasma Harper Sanchez PA-C Work Phone: Start: 01-20-2017 End: 01-21-2017 Thyrotropin [Units/volume] in Serum or Plasma Harper Sanchez PA-C Work Phone: Start: 01-20-2017 End: 01-21-2017 Thyroxine (T4) [Mass/volume] in Serum or Plasma Harper Sanchez PA-C Work Phone: Start: 01-20-2017 End: 01-21-2017 *BMP Harper Sanchez PA-C Work Phone: Start: 01-20-2017 End: 01-21-2017 *CBC with Differential Harper Sanchez PA-C Work Phone: Start: 01-20-2017 End: 01-21-2017 Magnesium Harper Sanchez PA-C Work Phone: Start: 01-20-2017 End: 01-21-2017 Thyroid stimulating hormone (TSH) Abel Bradley PA-C Work Phone: Start: 01-20-2017 End: 01-21-2017 Thyroxine (T4) Harper Sanchez PA-C Work Phone: Start: 01-18-2017 End: 01-18-2017 Prgrmg eval implantable in prsn dual lead dfb Harper Sanchez PA-C Work Phone: Start: 01-18-2017 End: 01-18-2017 Icd device progr eval, dual Harper Sanchez PA-C Work Phone: Start: 01-17-2017 End: 04-15-2017 *BMP YANIRA Tolentino-C Work Phone: Start: 01-17-2017 End: 01-17-2017 Follow Up Appt Other Harper Sanchez PA-C Work Phone: Start: 01-17-2017 End: 01-17-2017 PFM YANIRA Tolentino-C Work Phone: Start: 01-17-2017 End: 04-15-2017 *BMP YANIRA Tolentino-C Work Phone: Start: 01-17-2017 End: 01-17-2017 Follow Up Appt Other YANIRA Tolentino-C Work Phone: Start: 01-17-2017 End: 01-17-2017 PFM YANIRA Tolentino-C Work Phone: Start: 10-19-2016 End: 10-19-2016 *BMP Harper Sanchez PA-C Work Phone: Start: 10-19-2016 End: 10-19-2016 *BMP YANIRA Tolentino-C Work Phone: Start: 10-05-2016 End: 10-06-2016 *BMP Harper Sanchez PA-C Work Phone: Start: 10-05-2016 End: 12-31-2016 Follow Up Appt 3 months NILA TolentinoC Work Phone: Start: 10-05-2016 End: 10-05-2016 Follow Up Appt 6 months YANIRA Tolentino-C Work Phone: Start: 10-05-2016 End: 10-06-2016 Magnesium [Mass/volume] in Serum or Plasma YANIRA Tolentino-C Work Phone: Start: 10-05-2016 End: 10-05-2016 MMM YANIRA Tolentino-Boris Work Phone: Start: 10-05-2016 End: 12-31-2016 Pacer Clinic Harper Sanchez PA-C Work Phone: Start: 10-05-2016 End: 10-05-2016 PFM Harper Sanchez PA-C Work Phone: Start: 10-05-2016 End: 10-05-2016 Prgrmg eval implantable in prsn dual lead dfb Harper Sanchez PA-C Work Phone: Start: 10-05-2016 End: 10-06-2016 *BMP Harper Sanchez PA-C Work Phone: Start: 10-05-2016 End: 12-31-2016 Follow Up Appt 3 months Harper Sanchez PA-C Work Phone: Start: 10-05-2016 End: 10-05-2016 Follow Up Appt 6 months Harper Sanchez PA-C Work Phone: Start: 10-05-2016 End: 10-05-2016 Icd device progr eval, dual Haprer Sanchez PA-C Work Phone: Start: 10-05-2016 End: 10-06-2016 Magnesium Harper Sanchez PA-C Work Phone: Start: 10-05-2016 End: 10-05-2016 MMM Harper Sanchez PA-C Work Phone: Start: 10-05-2016 End: 12-31-2016 Pacer Clinic Harper Sanchez PA-C Work Phone: Start: 10-05-2016 End: 10-05-2016 PFM Harper Sanchez PA-C Work Phone: Start: 09-29-2016 End: 10-01-2016 *Hepatic Function Panel Harper Sanchez PA-C Work Phone: Start: 09-29-2016 End: 10-01-2016 Lipid 1996 panel - Serum or Plasma Harper Sanchez PA-C Work Phone: Start: 09-29-2016 End: 10-01-2016 *Hepatic Function Panel Harper Sanchez PA-C Work Phone: Start: 09-29-2016 End: 10-01-2016 Lipid panel [AGGREGATE] Harper Sanchez PA-C Work Phone: Start: 09-27-2016 End: 09-30-2016 *BMP Harper Sanchez PA-C Work Phone: Start: 09-27-2016 End: 09-30-2016 Magnesium [Mass/volume] in Serum or Plasma Harper Sanchez PA-C Work Phone: Start: 09-27-2016 End: 09-27-2016 Nurse, Teaching, Wound Check (no charge) Harper Sanchez PA-C Work Phone: Start: 09-27-2016 End: 09-30-2016 *BMP Harper Sanchez PA-C Work Phone: Start: 09-27-2016 End: 09-30-2016 Magnesium Harper Sanchez PA-C Work Phone: Start: 09-27-2016 End: 09-27-2016 Nurse, Teaching, Wound Check (no charge) Harper Sanchez PA-C Work Phone: Start: 09-16-2016 End: 09-20-2016 *BMP Harper Sanchez PA-C Work Phone: Start: 09-16-2016 End: 09-20-2016 *Hepatic Function Panel Harper Sanchez PA-C Work Phone: Start: 09-16-2016 End: 09-20-2016 Lipid 1996 panel - Serum or Plasma Harper Sanchez PA-C Work Phone: Start: 09-16-2016 End: 09-20-2016 *BMP Harper Sanchez PA-C Work Phone: Start: 09-16-2016 End: 09-20-2016 *Hepatic Function Panel Harper Sanchez PA-C Work Phone: Start: 09-16-2016 End: 09-20-2016 Lipid panel [AGGREGATE] Harper Sanchez PA-C Work Phone: Start: 09-10-2016 End: 09-10-2017 INR in Platelet poor plasma by Coagulation assay Glenn Dowell MD Start: 09-10-2016 End: 09-10-2017 Coagulation factor induced.INR assay in platelet poor plasma Glenn Dowell MD Start: 07-06-2016 End: 09-29-2016 Follow Up Appt 3 months Harper Sanchez PA-C Work Phone: Start: 07-06-2016 End: 09-29-2016 Pacer Clinic Harper Sanchez PA-C Work Phone: Start: 07-06-2016 End: 07-07-2016 Prgrmg eval implantable in prsn dual lead dfb Harper Sanchez PA-C Work Phone: Start: 07-06-2016 End: 09-29-2016 Follow Up Appt 3 months Harper Sanchez PA-C Work Phone: Start: 07-06-2016 End: 07-07-2016 Icd device progr eval, dual Harper Sanchez PA-C Work Phone: Start: 07-06-2016 End: 09-29-2016 Pacer Clinic Harper Sanchez PA-C Work Phone: Start: 04-12-2016 End: 04-19-2016 INR in Platelet poor plasma by Coagulation assay Glenn Dowell MD Start: 04-12-2016 End: 04-12-2016 Nurse, Teaching, Wound Check (no charge) Harper Sanchez PA-C Work Phone: Start: 04-12-2016 End: 04-19-2016 Coagulation factor induced.INR assay in platelet poor plasma Glenn Dowell MD Start: 04-12-2016 End: 04-12-2016 Nurse, Teaching, Wound Check (no charge) Harper Sanchez PA-C Work Phone: Start: 04-08-2016 End: 04-08-2016 Dietary management education, guidance, and counseling Inga Rooney Start: 04-08-2016 End: 04-08-2016 Follow Up Appt 6 months Harper Sanchez PA-C Work Phone: Start: 04-08-2016 End: 04-08-2016 MM Harper Sanchez PA-C Work Phone: Start: 04-08-2016 End: 04-08-2016 Follow Up Appt 6 months Harper Sanchez PA-C Work Phone: Start: 04-08-2016 End: 04-08-2016 MM Harper Sanchez PA-C Work Phone: Start: 03-30-2016 End: 03-30-2016 *BMP Glenn Dowell MD Start: 03-30-2016 End: 04-08-2016 Follow Up Appt 3 months Glenn Dowell MD Start: 03-30-2016 End: 04-08-2016 Pacer Clinic Glenn Dowell MD Start: 03-30-2016 End: 03-31-2016 Prgrmg eval implantable in prsn dual lead dfb Glenn Dowell MD Start: 03-30-2016 End: 03-30-2016 *BMP Glenn Dowell MD Start: 03-30-2016 End: 04-08-2016 Follow Up Appt 3 months Glenn Dowell MD Start: 03-30-2016 End: 03-31-2016 Icd device progr eval, dual Glenn delgadillo MD Start: 03-30-2016 End: 04-08-2016 Pacer Clinic Glenn Dowell MD Start: 03-18-2016 End: 03-30-2016 *Hepatic Function Panel Harper Sanchez PA-C Work Phone: Start: 03-18-2016 End: 03-30-2016 Lipid 1996 panel - Serum or Plasma Harper Sanchez PA-C Work Phone: Start: 03-18-2016 End: 03-30-2016 *Hepatic Function Panel Harper Sanchez PA-C Work Phone: Start: 03-18-2016 End: 03-30-2016 Lipid panel [AGGREGATE] Harper Sanchez PA-C Work Phone: Start: 02-16-2016 End: 02-20-2016 *BMP Glenn Dowell MD Start: 02-16-2016 End: 02-20-2016 *BMP Glenn Dowell MD Start: 01-15-2016 End: 01-20-2016 *BMP Glenn Dowell MD Start: 01-15-2016 End: 01-20-2016 *BMP Glenn Dowell MD Start: 12-25-2015 End: 03-25-2016 Follow Up Appt 3 months Glenn Dowell MD Start: 12-25-2015 End: 03-25-2016 Pacer Clinic Glenn Dowell MD Start: 12-25-2015 End: 12-25-2015 Prgrmg eval implantable in prsn dual lead dfb Glenn Dowell MD Start: 12-25-2015 End: 03-25-2016 Follow Up Appt 3 months Glenn Dowell MD Start: 12-25-2015 End: 12-25-2015 Icd device progr eval, dual Glenn delgadillo MD Start: 12-25-2015 End: 03-25-2016 Pacer Clinic Glenn Dowell MD Start: 12-11-2015 End: 12-18-2015 *BMP Glenn Dowell MD Start: 12-11-2015 End: 12-18-2015 *BMP Glenn Dowell MD Start: 12-08-2015 End: 12-11-2015 *BMP Glenn Dowell MD Start: 12-08-2015 End: 12-11-2015 *BMP Glenn Dowell MD Start: 10-20-2015 End: 10-21-2015 Natriuretic peptide B [Mass/volume] in Blood Harper Sanchez PA-C Work Phone: Start: 10-20-2015 End: 10-21-2015 BNP Harper Sanchez PA-C Work Phone: Start: 10-08-2015 End: 10-21-2015 *BMP Glenn Dowell MD Start: 10-08-2015 End: 10-08-2015 Follow Up Appt 6 months Glenn Dowell MD Start: 10-08-2015 End: 10-08-2015 MMKostas Dowell MD Start: 10-08-2015 End: 10-21-2015 *BMP Glenn Dowell MD Start: 10-08-2015 End: 10-08-2015 Follow Up Appt 6 months Glenn Dowell MD Start: 10-08-2015 End: 10-08-2015 CHRISTIAN Dowell MD Start: 09-11-2015 End: 02-20-2016 Follow Up Appt 3 months Glenn Dowell MD Start: 09-11-2015 End: 02-20-2016 Pacer Clinic Glenn Dowell MD Start: 09-11-2015 End: 02-20-2016 Prgrmg eval implantable in prsn dual lead dfb Glenn Dowell MD Start: 09-11-2015 End: 02-20-2016 Follow Up Appt 3 months Glenn Dowell MD Start: 09-11-2015 End: 02-20-2016 Icd device progr eval, dual Glenn delgadillo MD Start: 09-11-2015 End: 02-20-2016 Pacer Clinic Glenn Dowell MD Start: 09-01-2015 End: 09-19-2015 Lipid 1996 panel - Serum or Plasma Harper Sanchez PA-C Work Phone: Start: 09-01-2015 End: 09-19-2015 Lipid panel [AGGREGATE] Harper Sanchez PA-C Work Phone: Start: 06-11-2015 End: 02-20-2016 Follow Up Appt 3 months Glenn Dowell MD Start: 06-11-2015 End: 02-20-2016 Pacer Clinic Glenn Dowell MD Start: 06-11-2015 End: 02-20-2016 Prgrmg eval implantable in prsn dual lead dfb Glenn Dowell MD Start: 06-11-2015 End: 02-20-2016 Follow Up Appt 3 months Glenn Dowell MD Start: 06-11-2015 End: 02-20-2016 Icd device progr eval, dual Glenn delgadillo MD Start: 06-11-2015 End: 02-20-2016 Pacer Clinic Glenn Dowell MD Start: 05-01-2015 End: 05-01-2015 *BMP Harper Sanchez PA-C Work Phone: Start: 05-01-2015 End: 05-01-2015 *Hepatic Function Panel Harper Sanchez PA-C Work Phone: Start: 05-01-2015 End: 05-01-2015 Lipid 1996 panel - Serum or Plasma Harper Sanchez PA-C Work Phone: Start: 05-01-2015 End: 05-01-2015 *Hepatic Function Panel Harper Sanchez PA-C Work Phone: Start: 05-01-2015 End: 05-01-2015 Lipid panel [AGGREGATE] Harper Sanchez PA-C Work Phone: Start: 04-30-2015 End: 09-18-2015 *BMP Harper Sanchez PA-C Work Phone: Start: 04-30-2015 End: 02-20-2016 Chest x-ray Harper Sanchez PA-C Work Phone: Start: 04-30-2015 End: 02-20-2016 Ecg routine ecg w/least 12 lds w/i&r Harper Sanchez PA-C Work Phone: Start: 04-30-2015 End: 02-20-2016 Follow Up Appt 2 months Glenn Dowell MD Start: 04-30-2015 End: 09-18-2015 Follow up Appt 3 weeks Harper Sanchez PA-C Work Phone: Start: 04-30-2015 End: 05-01-2015 Magnesium [Mass/volume] in Serum or Plasma Harper Sanchez PA-C Work Phone: Start: 04-30-2015 End: 09-18-2015 MMM Harper Sanchez PA-C Work Phone: Start: 04-30-2015 End: 02-20-2016 Nuclear stress test -Lexiscoscar Sanchez PA-C Work Phone: Start: 04-30-2015 End: 02-20-2016 Pacer Clinic Glenn Dowell MD Start: 04-30-2015 End: 04-30-2015 Prgrmg eval implantable in prsn dual lead dfb Glenn Dowell MD Start: 04-30-2015 End: 09-18-2015 *BMP Harper Sanchez PA-C Work Phone: Start: 04-30-2015 End: 02-20-2016 Chest x-ray Harper Sanchez PA-C Work Phone: Start: 04-30-2015 End: 02-20-2016 Electrocardiogram, complete Harper Sanchez PA-C Work Phone: Start: 04-30-2015 End: 02-20-2016 Follow Up Appt 2 months Glenn Dowell MD Start: 04-30-2015 End: 09-18-2015 Follow up Appt 3 weeks Harper Sanchez PA-C Work Phone: Start: 04-30-2015 End: 04-30-2015 Icd device progr eval, dual Glenn delgadillo MD Start: 04-30-2015 End: 05-01-2015 Lipid panel [AGGREGATE] Harper Sanchez PA-C Work Phone: Start: 04-30-2015 End: 05-01-2015 Magnesium [Mass/volume] in Serum or Plasma Harper Sanchez PA-C Work Phone: Start: 04-30-2015 End: 09-18-2015 MMM Harper Sanchez PA-C Work Phone: Start: 04-30-2015 End: 02-20-2016 Nuclear stress test -Lexiscoscar Sanchez PA-C Work Phone: Start: 04-30-2015 End: 02-20-2016 Pacer Clinic Glenn Dowell MD Start: 04-22-2015 End: 04-23-2015 *BMP Harper Sanchez PA-C Work Phone: Start: 04-22-2015 End: 04-23-2015 Documentation of current medications Harper Sanchez PA-C Work Phone: Start: 04-22-2015 End: 04-22-2015 Follow Up Appt 6 months Harper Sanchez PA-C Work Phone: Start: 04-22-2015 End: 04-23-2015 Natriuretic peptide B [Mass/volume] in Blood Harper Sanchez PA-C Work Phone: Start: 04-22-2015 End: 04-22-2015 PFM Harper Sanchez PA-C Work Phone: Start: 04-22-2015 End: 04-23-2015 *BMP Harper Sanchez PA-C Work Phone: Start: 04-22-2015 End: 04-23-2015 BNP Harper Sanchez PA-C Work Phone: Start: 04-22-2015 End: 04-23-2015 Documentation of current medications Harper Sanchez PA-C Work Phone: Start: 04-22-2015 End: 04-22-2015 Follow Up Appt 6 months Harper Sanchez PA-C Work Phone: Start: 04-22-2015 End: 04-22-2015 PFM Harper Sanchez PA-C Work Phone: Start: 03-10-2015 End: 04-14-2015 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 Start: 03-10-2015 End: 04-14-2015 Pacer Clinic Glenn Dowell MD Start: 03-10-2015 End: 04-14-2015 Prgrmg eval implantable in prsn dual lead dfb Glenn Dowell MD Start: 03-10-2015 End: 04-14-2015 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 Start: 03-10-2015 End: 04-14-2015 Icd device progr eval, dual Glenn delgadillo MD Start: 03-10-2015 End: 04-14-2015 Pacer Clinic Glenn Dowell MD Start: 12-30-2014 End: 02-20-2015 *Hepatic Function Panel Glenn Dowell MD Start: 12-30-2014 End: 02-20-2015 Lipid 1996 panel - Serum or Plasma Glenn Dowell MD Start: 12-30-2014 End: 02-20-2015 *Hepatic Function Panel Glenn Dowell MD Start: 12-30-2014 End: 02-20-2015 Lipid panel [AGGREGATE] Glenn Dowell MD Start: 12-09-2014 End: 04-14-2015 Follow Up Appt 3 months Glenn Dowell MD Start: 12-09-2014 End: 04-14-2015 Pacer Clinic Glenn Dowell MD Start: 12-09-2014 End: 04-14-2015 Prgrmg eval implantable in prsn dual lead dfb Glenn Dowell MD Start: 12-09-2014 End: 04-14-2015 Follow Up Appt 3 months Glenn Dowell MD Start: 12-09-2014 End: 04-14-2015 Icd device progr eval, dual Glenn delgadillo MD Start: 12-09-2014 End: 04-14-2015 Pacer Clinic Glenn Dowell MD Start: 10-02-2014 End: 10-03-2014 Documentation of current medications Glenn Dowell MD Start: 10-02-2014 End: 04-14-2015 Echocardiography Glenn Dowell MD Start: 10-02-2014 End: 10-02-2014 Follow Up Appt 6 months Glenn Dowell MD Start: 10-02-2014 End: 10-02-2014 MMM Glenn Dowell MD Start: 10-02-2014 End: 10-03-2014 Documentation of current medications Glenn Dowell MD Start: 10-02-2014 End: 04-14-2015 Echocardiography Glenn Dowell MD Start: 10-02-2014 End: 10-02-2014 Follow Up Appt 6 months Glenn Dowell MD Start: 10-02-2014 End: 10-02-2014 MM Glenn Dowell MD Start: 09-06-2014 End: 10-02-2014 Echocardiography Harper Sanchez PA-C Work Phone: Start: 09-06-2014 End: 10-02-2014 Follow Up Appt 3 months Harper Sanchez PA-C Work Phone: Start: 09-06-2014 End: 09-06-2014 Program eval implantable in persn dual ld pacer Harper Sanchez PA-C Work Phone: Start: 09-06-2014 End: 10-02-2014 Echocardiography Harper Sanchez PA-C Work Phone: Start: 09-06-2014 End: 10-02-2014 Follow Up Appt 3 months Harper Sanchez PA-C Work Phone: Start: 09-06-2014 End: 09-06-2014 Pm device progr eval, dual Harper Sanchez PA-C Work Phone: Start: 06-04-2014 End: 07-11-2014 Follow Up Appt 3 months Harper Sanchez PA-C Work Phone: Start: 06-04-2014 End: 10-02-2014 Pacer Clinic Harper Sanchez PA-C Work Phone: Start: 06-04-2014 End: 06-04-2014 Prgrmg eval implantable in prsn dual lead dfb Harper Sanchez PA-C Work Phone: Start: 06-04-2014 End: 07-11-2014 Follow Up Appt 3 months Harper Sanchez PA-C Work Phone: Start: 06-04-2014 End: 06-04-2014 Icd device progr eval, dual Harper Sanchez PA-C Work Phone: Start: 06-04-2014 End: 10-02-2014 Pacer Clinic Harper Sanchez PA-C Work Phone: Start: 04-04-2014 End: 04-04-2014 Follow Up Appt 6 months Harper Sanchez PA-C Work Phone: Start: 04-04-2014 End: 04-14-2015 Follow Up Appt Other Harper Sanchez PA-C Work Phone: Start: 04-04-2014 End: 04-04-2014 PFM Harper Sanchez PA-C Work Phone: Start: 04-04-2014 End: 04-04-2014 Follow Up Appt 6 months Harper Sanchez PA-C Work Phone: Start: 04-04-2014 End: 04-14-2015 Follow Up Appt Other Harper Sanchez PA-C Work Phone: Start: 04-04-2014 End: 04-04-2014 PFM Harper Sanchez PA-C Work Phone: Start: 04-01-2014 End: 07-11-2014 *Hepatic Function Panel Glenn Dowell MD Start: 04-01-2014 End: 07-11-2014 Lipid 1996 panel - Serum or Plasma Glenn Dowell MD Start: 04-01-2014 End: 07-11-2014 *Hepatic Function Panel Glenn Dowell MD Start: 04-01-2014 End: 07-11-2014 Lipid panel [AGGREGATE] Glenn Dowell MD Start: 02-26-2014 End: 03-15-2014 Follow Up Appt 3 months Harper Sanchez PA-C Work Phone: Start: 02-26-2014 End: 03-15-2014 Pacer Clinic Harper Sanchez PA-C Work Phone: Start: 02-26-2014 End: 02-26-2014 Prgrmg eval implantable in prsn dual lead dfb Harper Sanchez PA-C Work Phone: Start: 02-26-2014 End: 03-15-2014 Follow Up Appt 3 months Harper Sanchez PA-C Work Phone: Start: 02-26-2014 End: 02-26-2014 Icd device progr eval, dual Harper Sanchez PA-C Work Phone: Start: 02-26-2014 End: 03-15-2014 Pacer Clinic Harper Sanchez PA-C Work Phone: Start: 11-19-2013 End: 03-15-2014 Follow Up Appt 3 months Glenn Dowell MD Start: 11-19-2013 End: 03-15-2014 Pacer Clinic Glenn Dowell MD Start: 11-19-2013 End: 11-19-2013 Prgrmg eval implantable in prsn dual lead dfb Glenn Dowell MD Start: 11-19-2013 End: 03-15-2014 Follow Up Appt 3 months Glenn Dowell MD Start: 11-19-2013 End: 11-19-2013 Icd device progr eval, dual Glenn delgadillo MD Start: 11-19-2013 End: 03-15-2014 Pacer Clinic Glenn Dowell MD Start: 09-26-2013 End: 10-26-2013 *Hepatic Function Panel Glenn Dowell MD Start: 09-26-2013 End: 03-15-2014 Follow Up Appt 6 months Glenn Dowell MD Start: 09-26-2013 End: 10-26-2013 Lipid 1996 panel - Serum or Plasma Glenn Dowell MD Start: 09-26-2013 End: 03-15-2014 MMM Glenn Dowell MD Start: 09-26-2013 End: 10-26-2013 *Hepatic Function Panel Glenn Dowell MD Start: 09-26-2013 End: 03-15-2014 Follow Up Appt 6 months Glenn Dowell MD Start: 09-26-2013 End: 10-26-2013 Lipid panel [AGGREGATE] Glenn Dowell MD Start: 09-26-2013 End: 03-15-2014 NICOLEM Glenn Dowell MD Start: 08-16-2013 End: 03-15-2014 Follow Up Appt 3 months Glenn Dowell MD Start: 08-16-2013 End: 03-15-2014 Pacer Clinic Glenn Dowell MD Start: 08-16-2013 End: 03-15-2014 Prgrmg eval implantable in prsn dual lead dfb Glenn Dowell MD Start: 08-16-2013 End: 03-15-2014 Follow Up Appt 3 months lGenn Dowell MD Start: 08-16-2013 End: 03-15-2014 Icd device progr eval, dual Glenn delgadillo MD Start: 08-16-2013 End: 03-15-2014 Pacer Clinic Glenn Dowell MD Start: 05-16-2013 End: 03-15-2014 Follow Up Appt 3 months Glenn Dowell MD Start: 05-16-2013 End: 03-15-2014 Pacer Clinic Glenn Dowell MD Start: 05-16-2013 End: 03-15-2014 Prgrmg eval implantable in prsn dual lead dfb Glenn Dowell MD Start: 05-16-2013 End: 03-15-2014 Follow Up Appt 3 months Glenn Dowell MD Start: 05-16-2013 End: 03-15-2014 Icd device progr eval, dual Glenn delgadillo MD Start: 05-16-2013 End: 03-15-2014 Pacer Clinic Glenn Dowell MD Start: 05-01-2013 End: 03-15-2014 *Hepatic Function Panel Harper Sanchez PA-C Work Phone: Start: 05-01-2013 End: 03-15-2014 Lipid 1996 panel - Serum or Plasma Harper Sanchez PA-C Work Phone: Start: 05-01-2013 End: 03-15-2014 *Hepatic Function Panel Harper Sanchez PA-C Work Phone: Start: 05-01-2013 End: 03-15-2014 Lipid panel [AGGREGATE] Harper Sanchez PA-C Work Phone: Start: 03-26-2013 End: 03-26-2013 *Hepatic Function Panel Glenn Dowell MD Start: 03-26-2013 End: 03-26-2013 Follow Up Appt 6 months Glenn Dowell MD Start: 03-26-2013 End: 03-26-2013 Lipid 1996 panel - Serum or Plasma Glenn Dowell MD Start: 03-26-2013 End: 03-26-2013 PFM Glenn Dowell MD Start: 03-26-2013 End: 03-26-2013 *Hepatic Function Panel Glenn Dowell MD Start: 03-26-2013 End: 03-26-2013 Follow Up Appt 6 months Glenn Dowell MD Start: 03-26-2013 End: 03-26-2013 Lipid panel [AGGREGATE] Glenn Dowell MD Start: 03-26-2013 End: 03-26-2013 PFM Glenn Dowell MD Start: 02-13-2013 End: 03-26-2013 Follow Up Appt 3 months Kostas Zarate Start: 02-13-2013 End: 03-26-2013 Pacer Clinic Bhavesh Rios MD Start: 02-13-2013 End: 03-26-2013 Prgrmg eval implantable in prsn dual lead dfb Bhavesh Rios MD Start: 02-13-2013 End: 03-26-2013 Follow Up Appt 3 months Kostas Zarate Start: 02-13-2013 End: 03-26-2013 Icd device progr eval, dual Bhavesh Pepe i, MD Start: 02-13-2013 End: 03-26-2013 Pacer Clinic Bhavesh Rios MD Start: 11-16-2012 End: 11-23-2012 *BMP Harper Sanchez PA-C Work Phone: Start: 11-16-2012 End: 11-23-2012 *CBC with Differential Harper Sanchez PA-C Work Phone: Start: 11-16-2012 End: 11-23-2012 *Hepatic Function Panel Harper Sanchez PA-C Work Phone: Start: 11-16-2012 End: 03-26-2013 Echocardiography Harper Sanchze PA-C Work Phone: Start: 11-16-2012 End: 11-16-2012 Follow Up Appt Other Harper Sanchez PA-C Work Phone: Start: 11-16-2012 End: 11-23-2012 Lipid 1996 panel - Serum or Plasma Harper Sanchez PA-C Work Phone: Start: 11-16-2012 End: 11-23-2012 Thyrotropin [Units/volume] in Serum or Plasma Harper Sanchez PA-C Work Phone: Start: 11-16-2012 End: 11-23-2012 *BMP Harper Sanchez PA-C Work Phone: Start: 11-16-2012 End: 11-23-2012 *CBC with Differential Harper Sanchez PA-C Work Phone: Start: 11-16-2012 End: 11-23-2012 *Hepatic Function Panel Harper Sanchez PA-C Work Phone: Start: 11-16-2012 End: 03-26-2013 Echocardiography Harper Sanchez PA-C Work Phone: Start: 11-16-2012 End: 11-16-2012 Follow Up Appt Other Harper Sanchez PA-C Work Phone: Start: 11-16-2012 End: 11-23-2012 Lipid panel [AGGREGATE] Harper Sanchez PA-C Work Phone: Start: 11-16-2012 End: 11-23-2012 Thyrotropin [Units/volume] in Serum or Plasma Harper Sanchez PA-C Work Phone: Start: 11-07-2012 End: 11-07-2012 Follow Up Appt 3 months Glenn Dowell MD Start: 11-07-2012 End: 11-07-2012 Pacer Clinic Glenn Dowell MD Start: 11-07-2012 End: 11-07-2012 Prgrmg eval implantable in prsn dual lead dfb Glenn Dowell MD Start: 11-07-2012 End: 11-07-2012 Follow Up Appt 3 months Glenn Dowell MD Start: 11-07-2012 End: 11-07-2012 Icd device progr eval, dual Glenn delgadillo MD Start: 11-07-2012 End: 11-07-2012 Pacer Clinic Glenn Dowell MD Start: 06-01-2012 End: 06-01-2012 Follow Up Appt 6 months Yuri Barnett MD Start: 06-01-2012 End: 06-01-2012 Follow Up Appt 6 months Yuri Barnett MD Start: 05-03-2012 End: 06-01-2012 *Hepatic Function Panel Yuri Barnett MD Start: 05-03-2012 End: 06-01-2012 Lipid 1996 panel - Serum or Plasma Yuri Barnett MD Start: 05-03-2012 End: 06-01-2012 *Hepatic Function Panel Yuri aBrnett MD Start: 05-03-2012 End: 06-01-2012 Lipid 1996 panel - Serum or Plasma Yuri Barnett MD Start: 05-03-2012 End: 06-01-2012 Thyroid stimulating hormone (TSH) Trudi Barnett MD Start: 02-29-2012 End: 02-29-2012 Follow Up Appt 3 months Yuri Barnett MD Start: 02-29-2012 End: 02-29-2012 Follow Up Appt 3 months Yuri Barnett MD Start: 12-02-2011 End: 12-02-2011 *Hepatic Function Panel uYri Barnett MD Start: 12-02-2011 End: 12-02-2011 Lipid 1996 panel - Serum or Plasma Yuri Barnett MD Start: 12-02-2011 End: 12-02-2011 *Hepatic Function Panel Yuri Barnett MD Start: 12-02-2011 End: 12-02-2011 Lipid panel [AGGREGATE] Yuri Barnett MD Start: 11-30-2011 End: 11-30-2011 *BMP Yuri Barnett MD Start: 11-30-2011 End: 11-30-2011 *Hepatic Function Panel Yuri Barnett MD Start: 11-30-2011 End: 11-30-2011 Lipid 1996 panel - Serum or Plasma Yuri Barnett MD Start: 11-30-2011 End: 11-30-2011 Magnesium [Mass/volume] in Serum or Plasma Yuri Barnett MD Start: 11-30-2011 End: 11-30-2011 *BMP Yuri Barnett MD Start: 11-30-2011 End: 11-30-2011 *Hepatic Function Panel Yuri Barnett MD Start: 11-30-2011 End: 11-30-2011 Lipid panel [AGGREGATE] Yuri Barnett MD Start: 11-30-2011 End: 11-30-2011 Magnesium Yuri Barnett MD Start: 11-12-2011 End: 11-30-2011 *BMP Yuri Barnett MD Start: 11-12-2011 End: 11-30-2011 *Hepatic Function Panel Yuri Barnett MD Start: 11-12-2011 End: 11-30-2011 Ecg routine ecg w/least 12 lds w/i&r Yuri Barnett MD Start: 11-12-2011 End: 11-25-2011 Echocardiography Yuri Barnett MD Start: 11-12-2011 End: 11-30-2011 Follow Up Appt 3 months Yuri Barnett MD Start: 11-12-2011 End: 11-30-2011 Lipid 1996 panel - Serum or Plasma Yuri Barnett MD Start: 11-12-2011 End: 11-30-2011 Magnesium [Mass/volume] in Serum or Plasma Yuri Barnett MD Start: 11-12-2011 End: 11-25-2011 Nuclear stress test -adenosine Artur Barnett MD Start: 11-12-2011 End: 11-30-2011 Thyrotropin [Units/volume] in Serum or Plasma Yuri Barnett MD Start: 11-12-2011 End: 11-30-2011 Thyroxine (T4) [Mass/volume] in Serum or Plasma Yuri Barnett MD Start: 11-12-2011 End: 11-30-2011 *BMP Yuri Barnett MD Start: 11-12-2011 End: 11-30-2011 *Hepatic Function Panel Yuri Barnett MD Start: 11-12-2011 End: 11-25-2011 Echocardiography Yuri Barnett MD Start: 11-12-2011 End: 11-30-2011 Follow Up Appt 3 months Yuri Barnett MD Start: 11-12-2011 End: 11-30-2011 Lipid panel [AGGREGATE] Yuri Barnett MD Start: 11-12-2011 End: 11-30-2011 Magnesium Yuri Barnett MD Start: 11-12-2011 End: 11-25-2011 Nuclear stress test -adenosine Artur Barnett MD Start: 11-12-2011 End: 11-30-2011 Thyrotropin [Units/volume] in Serum or Plasma Yuri Barnett MD Start: 11-12-2011 End: 11-30-2011 Thyroxine (T4) Yuri Barnett MD Start: 08-06-2011 End: 08-06-2011 Follow Up Appt Other Yuri Barnett MD Start: 08-06-2011 End: 08-06-2011 Follow Up Appt Other Yuri Barnett MD Start: 01-14-2011 Implantation of automatic cardiac defibrillator IMPLANTATION OF DEFIBRILLATOR, HX OF Harper Santiago RN Start: 01-14-2011 Implantation of automatic cardiac defibrillator IMPLANTATION OF DEFIBRILLATOR, HX OF Inga Rooney Start: 10-30-2009 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 Ponce Kent MD Comment on above: 11/14/2009- ERWIN to LAD, SVG to 1st CFX & 2nd CFX Plan of Treatment Date Care Activity Detail Author Start: 01-28-2025 X-ray of knee, four or more views [facility] Start: 01-28-2025 XR Knee GE 4 Views [facility] Start: 01-09-2025 Egd transoral biopsy single/multiple [facility] Start: 01-09-2025 Patient discharge [facility] Start: 10-13-2024 Patient discharge [facility] Start: 10-13-2024 Serum inorganic phos phate measurement [facility] Start: 10-12-2024 [facility] Start: 10-12-2024 Speech therapy assessment [facility] Start: 10-12-2024 Serum inorganic phos phate measurement [facility] Start: 10-12-2024 Thyroid stimulating hormone measurement [facility] Start: 10-12-2024 Referral to gastroenterology service [facility] Start: 10-12-2024 Following clinical pathway protocol [facility] Start: 10-12-2024 Patient referral to dietitian [facility] Start: 10-11-2024 Assessment of risk o f venous thromboembolism [facility] Start: 10-11-2024 Care regimes management [facility] Start: 10-11-2024 Incentive spirometry [facility] Start: 10-11-2024 Insertion of cathete r into peripheral vein [facility] Start: 10-11-2024 Measuring intake and output [facility] Start: 10-11-2024 Notification of physician [facility] Start: 10-11-2024 Oxygen therapy [facility] Start: 10-11-2024 Providing care accor ding to standard [facility] Start: 10-11-2024 Referral to service [facility] Start: 10-11-2024 End: 10-11-2024 [facility] Start: 10-11-2024 Verification routine [facility] Start: 10-11-2024 Admission procedure [facility] Start: 10-09-2024 [facility] Start: 10-08-2024 Patient discharge [facility] Start: 10-08-2024 Following clinical pathway protocol [facility] Start: 10-08-2024 Application of elast ic bandage [facility] Start: 10-08-2024 Assessment of risk o f venous thromboembolism [facility] Start: 10-08-2024 Care regimes management [facility] Start: 10-08-2024 Fall prevention [facility] Start: 10-08-2024 Incentive spirometry [facility] Start: 10-08-2024 Inhalation therapy procedure [facility] Start: 10-08-2024 Insertion of cathete r into peripheral vein [facility] Start: 10-08-2024 Introduction of urin jann catheter [facility] Start: 10-08-2024 Measuring intake and output [facility] Start: 10-08-2024 Notification of physician [facility] Start: 10-08-2024 Oxygen therapy [facility] Start: 10-08-2024 Providing care accor ding to standard [facility] Start: 10-08-2024 Provision of activit y privileges [facility] Start: 10-08-2024 Referral to occupati onal therapist [facility] Start: 10-08-2024 Referral to service [facility] Start: 10-07-2024 Verification routine [facility] Start: 10-07-2024 End: 10-08-2024 [facility] Start: 10-07-2024 Admission procedure [facility] Start: 10-07-2024 Hospital admission, emergency, from emergency room, medical nature [facility] Start: 10-07-2024 End: 10-08-2024 [facility] Start: 10-07-2024 Iv infusion hydratio n each additional hour [facility] Start: 12-19-2023 DIABETES SCREEN DIABETES SCREEN [facility] Start: 04-01-2023 Influenza vaccination INFLUENZ A (Season Ended) [facility] Start: 08-01-2022 ADVANCE DIRECTIVE DISCUSSION ADVANCE DIRECTIVE DISCUSSION [facility] Start: 08-01-2022 DEPRESSION ASSESSMENT DEPRESSION ASS ESSMENT [facility] Start: 07-24-2021 COVID-19 VACCINE (4 - Booster for Pfizer series) COVID-19 VACCINE (4 - Booster for Pfizer series) [facility] Start: 07-03-2020 End: 07-03-2020 Office Visit 07/03/2020 Office Visit Orthopedic Surgery Catracho Ash MD [address] [facility] [address] [place], [place] [address] [facility] [place] Start: 05-04-2020 Annual Wellness Visi t (AWV) Annual Wellness Visit (AWV) [place], [place] Start: 04-29-2020 End: 04-29-2020 Office Visit 04/29/2020 Office Visit Orthopedic Surgery Bryson Soares MD [address] [facility] [address] [place] [address] [phone] [facility] [place] Start: 04-01-2020 Influenza vaccination Flu vaccine (# 1) [place], [place] Start: 08-12-2017 End: 08-12-2017 Appointment Appointment [facility] Work Phone: Start: 07-19-2017 End: 07-19-2017 Appointment Appointment [facility] Work Phone: Start: 06-27-2017 End: 06-16-2017 *BMP *BMP [facility] Work Phone: Start: 06-17-2017 End: 06-16-2017 *BMP *BMP [facility] Work Phone: Start: 06-09-2017 End: 06-10-2017 *BMP *BMP [facility] Work Phone: Start: 05-09-2017 End: 06-09-2017 *BMP *BMP [facility] Work Phone: Start: 05-09-2017 End: 04-27-2017 *BMP *BMP [facility] Work Phone: Start: 05-03-2017 End: 05-03-2017 Appointment Appointment [facility] Work Phone: Start: 05-03-2017 End: 05-03-2017 Follow Up Appt 3 months Follow Up Appt 3 months [facility] Work Phone: Start: 05-03-2017 End: 05-03-2017 Pacer Clinic Pacer Clinic [facility] Work Phone: Start: 04-27-2017 End: 04-27-2017 Magnesium *Magnesium [facility] Work Phone: Start: 04-27-2017 End: 04-27-2017 Magnesium *Magnesium [facility] Work Phone: Start: 04-22-2017 End: 04-27-2017 *BMP *BMP [facility] Work Phone: Start: 04-22-2017 End: 04-22-2017 Echocardiography Echocardiogram (complete) [facility] Work Phone: Start: 04-22-2017 End: 04-22-2017 Follow Up Appt 3 months Follow Up Appt 3 months [facility] Work Phone: Start: 04-22-2017 End: 04-22-2017 MMM MMM [facility] Work Phone: Start: 04-22-2017 End: 04-22-2017 Appointment Appointment [facility] Work Phone: Start: 04-22-2017 End: 04-27-2017 *BMP *BMP [facility] Work Phone: Start: 04-22-2017 End: 04-22-2017 Echocardiography Echocardiogram (complete) [facility] Work Phone: Start: 04-22-2017 End: 04-22-2017 Follow Up Appt 3 months Follow Up Appt 3 months [facility] Work Phone: Start: 04-22-2017 End: 04-22-2017 MMM MMM [facility] Work Phone: Start: 04-15-2017 End: 04-21-2017 *BMP *BMP [facility] Work Phone: Start: 04-15-2017 End: 04-15-2017 BNP *Brain Natriuretic Peptide BNP [facility] Work Phone: Start: 04-15-2017 End: 04-21-2017 *BMP *BMP [facility] Work Phone: Start: 04-15-2017 End: 04-15-2017 BNP *Brain Natriuretic Peptide BNP [facility] Work Phone: Start: 03-21-2017 End: 10-05-2016 *Hepatic Function Panel *Hepatic Function Panel [facility] Work Phone: Start: 03-21-2017 End: 10-05-2016 Lipid panel [AGGREGATE] *Lipid Profile CC PCP [facility] Work Phone: Start: 03-21-2017 End: 10-05-2016 *Hepatic Function Panel *Hepatic Function Panel [facility] Work Phone: Start: 03-21-2017 End: 10-05-2016 Lipid panel [AGGREGATE] *Lipid Profile CC PCP [facility] Work Phone: Start: 01-20-2017 End: 01-21-2017 *BMP *BMP [facility] Work Phone: Start: 01-20-2017 End: 01-21-2017 *CBC with Differential *CBC with Differential [facility] Work Phone: Start: 01-20-2017 End: 01-21-2017 Magnesium *Magnesium [facility] Work Phone: Start: 01-20-2017 End: 01-21-2017 Thyroid stimulating hormone (TSH) *TSH [facility] Work Phone: Start: 01-20-2017 End: 01-21-2017 Thyroxine (T4) *T4 (Total) [facility] Work Phone: Start: 01-20-2017 End: 01-21-2017 *BMP *BMP [facility] Work Phone: Start: 01-20-2017 End: 01-21-2017 *CBC with Differential *CBC with Differential [facility] Work Phone: Start: 01-20-2017 End: 01-21-2017 Magnesium *Magnesium [facility] Work Phone: Start: 01-20-2017 End: 01-21-2017 Thyroid stimulating hormone (TSH) *TSH [facility] Work Phone: Start: 01-20-2017 End: 01-21-2017 Thyroxine (T4) *T4 (Total) [facility] Work Phone: Start: 01-18-2017 End: 01-18-2017 Appointment Appointment [facility] Work Phone: Start: 01-18-2017 End: 01-18-2017 Follow Up Appt 3 months Follow Up Appt 3 months [facility] Work Phone: Start: 01-18-2017 End: 01-18-2017 Pacer Clinic [facility] Clinic [facility] Work Phone: Start: 01-18-2017 End: 01-18-2017 Follow Up Appt 3 months Follow Up Appt 3 months [facility] Work Phone: Start: 01-18-2017 End: 01-18-2017 Pacer Clinic Pacer Clinic [facility] Work Phone: Start: 01-17-2017 End: 04-15-2017 *BMP *BMP [facility] Work Phone: Start: 01-17-2017 End: 01-17-2017 Follow Up Appt Other Follow Up Appt Other [facility] Work Phone: Start: 01-17-2017 End: 01-17-2017 PFM PFM [facility] Work Phone: Start: 01-17-2017 End: 01-17-2017 Appointment Appointment [facility] Work Phone: Start: 01-17-2017 End: 04-15-2017 *BMP *BMP [facility] Work Phone: Start: 01-17-2017 End: 01-17-2017 Follow Up Appt Other Follow Up Appt Other [facility] Work Phone: Start: 01-17-2017 End: 01-17-2017 PFM PFM [facility] Work Phone: Start: 10-22-2016 End: 10-19-2016 *BMP *BMP [facility] Work Phone: Start: 10-22-2016 End: 10-19-2016 *BMP *BMP [facility] Work Phone: Start: 10-05-2016 End: 10-06-2016 *BMP *BMP [facility] Work Phone: Start: 10-05-2016 End: 12-31-2016 Follow Up Appt 3 months Follow Up Appt 3 months [facility] Work Phone: Start: 10-05-2016 End: 10-05-2016 Follow Up Appt 6 months Follow Up Appt 6 months [facility] Work Phone: Start: 10-05-2016 End: 10-06-2016 Magnesium *Magnesium [facility] Work Phone: Start: 10-05-2016 End: 10-05-2016 MMM MMM [facility] Work Phone: Start: 10-05-2016 End: 12-31-2016 Pacer Clinic Pacer Clinic [facility] Work Phone: Start: 10-05-2016 End: 10-05-2016 PFM PFM [facility] Work Phone: Start: 10-05-2016 End: 10-06-2016 *BMP *BMP [facility] Work Phone: Start: 10-05-2016 End: 12-31-2016 Follow Up Appt 3 months Follow Up Appt 3 months [facility] Work Phone: Start: 10-05-2016 End: 10-05-2016 Follow Up Appt 6 months Follow Up Appt 6 months [facility] Work Phone: Start: 10-05-2016 End: 10-06-2016 Magnesium *Magnesium [facility] Work Phone: Start: 10-05-2016 End: 10-05-2016 MMM MMM [facility] Work Phone: Start: 10-05-2016 End: 12-31-2016 Pacer Clinic Pacer Clinic [facility] Work Phone: Start: 10-05-2016 End: 10-05-2016 PFM PFM [facility] Work Phone: Start: 09-29-2016 End: 10-01-2016 *Hepatic Function Panel *Hepatic Function Panel [facility] Work Phone: Start: 09-29-2016 End: 10-01-2016 Lipid panel [AGGREGATE] *Lipid Profile CC PCP [facility] Work Phone: Start: 09-29-2016 End: 10-01-2016 *Hepatic Function Panel *Hepatic Function Panel [facility] Work Phone: Start: 09-29-2016 End: 10-01-2016 Lipid panel [AGGREGATE] *Lipid Profile CC PCP [facility] Work Phone: Start: 09-27-2016 End: 09-30-2016 *BMP *BMP [facility] Work Phone: Start: 09-27-2016 End: 09-30-2016 Magnesium *Magnesium [facility] Work Phone: Start: 09-27-2016 End: 09-30-2016 *BMP *BMP [facility] Work Phone: Start: 09-27-2016 End: 09-30-2016 Magnesium *Magnesium [facility] Work Phone: Start: 09-16-2016 End: 09-20-2016 *BMP *BMP [facility] Work Phone: Start: 09-16-2016 End: 09-20-2016 *Hepatic Function Panel *Hepatic Function Panel [facility] Work Phone: Start: 09-16-2016 End: 09-20-2016 Lipid panel [AGGREGATE] *Lipid Profile CC PCP [facility] Work Phone: Start: 09-16-2016 End: 09-20-2016 *BMP *BMP [facility] Work Phone: Start: 09-16-2016 End: 09-20-2016 *Hepatic Function Panel *Hepatic Function Panel [facility] Work Phone: Start: 09-16-2016 End: 09-20-2016 Lipid panel [AGGREGATE] *Lipid Profile CC PCP [facility] Work Phone: Start: 09-10-2016 End: 09-15-2016 INR Coag RelTime (PPP) *PT/INR - Standing Order [facility] Work Phone: Start: 09-10-2016 End: 09-15-2016 Coagulation factor induced.INR assay in platelet poor plasma *PT/INR - Standing Order [facility] Work Phone: Start: 07-06-2016 End: 09-29-2016 Follow Up Appt 3 months Follow Up Appt 3 months [facility] Work Phone: Start: 07-06-2016 End: 09-29-2016 Pacer [facility] Pacer [facility] Work Phone: Start: 07-06-2016 End: 09-29-2016 Follow Up Appt 3 months Follow Up Appt 3 months [facility] Work Phone: Start: 07-06-2016 End: 09-29-2016 Pacer [facility] Pacer [facility] Work Phone: Start: 04-12-2016 End: 04-19-2016 INR Coag RelTime (PPP) *PT/INR - Standing Order [facility] Work Phone: Start: 04-12-2016 End: 04-19-2016 Coagulation factor induced.INR assay in platelet poor plasma *PT/INR - Standing Order [facility] Work Phone: Start: 04-08-2016 End: 04-08-2016 Follow Up Appt 6 months Follow Up Appt 6 months [facility] Work Phone: Start: 04-08-2016 End: 04-08-2016 MMM MMM [facility] Work Phone: Start: 04-08-2016 End: 04-08-2016 Follow Up Appt 6 months Follow Up Appt 6 months [facility] Work Phone: Start: 04-08-2016 End: 04-08-2016 MMM MMM [facility] Work Phone: Start: 04-05-2016 End: 03-30-2016 *BMP *BMP [facility] Work Phone: Start: 04-05-2016 End: 03-30-2016 *BMP *BMP [facility] Work Phone: Start: 03-30-2016 End: 04-08-2016 Follow Up Appt 3 months Follow Up Appt 3 months [facility] Work Phone: Start: 03-30-2016 End: 04-08-2016 Pacer Clinic Pacer Clinic [facility] Work Phone: Start: 03-30-2016 End: 04-08-2016 Follow Up Appt 3 months Follow Up Appt 3 months [facility] Work Phone: Start: 03-30-2016 End: 04-08-2016 Pacer Clinic Pacer Clinic [facility] Work Phone: Start: 03-18-2016 End: 03-30-2016 *Hepatic Function Panel *Hepatic Function Panel [facility] Work Phone: Start: 03-18-2016 End: 03-30-2016 Lipid panel [AGGREGATE] *Lipid Profile CC PCP [facility] Work Phone: Start: 03-18-2016 End: 03-30-2016 *Hepatic Function Panel *Hepatic Function Panel [facility] Work Phone: Start: 03-18-2016 End: 03-30-2016 Lipid panel [AGGREGATE] *Lipid Profile CC PCP [facility] Work Phone: Start: 02-16-2016 End: 02-20-2016 *BMP *BMP [facility] Work Phone: Start: 02-16-2016 End: 02-20-2016 *BMP *BMP [facility] Work Phone: Start: 01-15-2016 End: 01-20-2016 *BMP *BMP [facility] Work Phone: Start: 01-15-2016 End: 01-20-2016 *BMP *BMP [facility] Work Phone: Start: 12-25-2015 End: 03-25-2016 Follow Up Appt 3 months Follow Up Appt 3 months [facility] Work Phone: Start: 12-25-2015 End: 03-25-2016 Pacer Clinic Pacer Clinic [facility] Work Phone: Start: 12-25-2015 End: 03-25-2016 Follow Up Appt 3 months Follow Up Appt 3 months [facility] Work Phone: Start: 12-25-2015 End: 03-25-2016 Pacer Clinic Pacer Clinic [facility] Work Phone: Start: 12-11-2015 End: 12-18-2015 *BMP *BMP [facility] Work Phone: Start: 12-11-2015 End: 12-18-2015 *BMP *BMP [facility] Work Phone: Start: 12-08-2015 End: 12-08-2015 *BMP *BMP [facility] Work Phone: Start: 12-08-2015 End: 12-08-2015 *BMP *BMP [facility] Work Phone: Start: 10-20-2015 End: 10-21-2015 BNP *Brain Natriuretic Peptide BNP [facility] Work Phone: Start: 10-20-2015 End: 10-21-2015 BNP *Brain Natriuretic Peptide BNP [facility] Work Phone: Start: 10-08-2015 End: 10-21-2015 *BMP *BMP [facility] Work Phone: Start: 10-08-2015 End: 10-08-2015 Follow Up Appt 6 months Follow Up Appt 6 months [facility] Work Phone: Start: 10-08-2015 End: 10-08-2015 MMM MMM [facility] Work Phone: Start: 10-08-2015 End: 10-21-2015 *BMP *BMP [facility] Work Phone: Start: 10-08-2015 End: 10-08-2015 Follow Up Appt 6 months Follow Up Appt 6 months [facility] Work Phone: Start: 10-08-2015 End: 10-08-2015 MMM MMM [facility] Work Phone: Start: 09-11-2015 End: 02-20-2016 Follow Up Appt 3 months Follow Up Appt 3 months [facility] Work Phone: Start: 09-11-2015 End: 02-20-2016 Pacer Clinic Pacer Clinic [facility] Work Phone: Start: 09-11-2015 End: 02-20-2016 Follow Up Appt 3 months Follow Up Appt 3 months [facility] Work Phone: Start: 09-11-2015 End: 02-20-2016 Pacer Clinic Pacer Clinic [facility] Work Phone: Start: 09-01-2015 End: 09-19-2015 Lipid panel [AGGREGATE] *Lipid Profile CC PCP [facility] Work Phone: Start: 09-01-2015 End: 09-19-2015 Lipid panel [AGGREGATE] *Lipid Profile CC PCP [facility] Work Phone: Start: 08-25-2015 End: 05-01-2015 *Hepatic Function Panel *Hepatic Function Panel [facility] Work Phone: Start: 08-25-2015 End: 05-01-2015 Lipid panel [AGGREGATE] *Lipid Profile CC PCP [facility] Work Phone: Start: 08-25-2015 End: 05-01-2015 *Hepatic Function Panel *Hepatic Function Panel [facility] Work Phone: Start: 08-25-2015 End: 05-01-2015 Lipid panel [AGGREGATE] *Lipid Profile CC PCP [facility] Work Phone: Start: 06-11-2015 End: 02-20-2016 Follow Up Appt 3 months Follow Up Appt 3 months [facility] Work Phone: Start: 06-11-2015 End: 02-20-2016 Pacer Clinic Pacer Clinic [facility] Work Phone: Start: 06-11-2015 End: 02-20-2016 Follow Up Appt 3 months Follow Up Appt 3 months [facility] Work Phone: Start: 06-11-2015 End: 02-20-2016 Pacer Clinic Pacer Clinic [facility] Work Phone: Start: 05-19-2015 End: 05-01-2015 *BMP *BMP [facility] Work Phone: Start: 05-19-2015 End: 05-01-2015 *BMP *BMP [facility] Work Phone: Start: 04-30-2015 End: 09-18-2015 *BMP *BMP [facility] Work Phone: Start: 04-30-2015 End: 09-18-2015 Chest x-ray X-Ray, Chest, PA & Lateral [facility] Work Phone: Start: 04-30-2015 End: 04-30-2015 Ecg routine ecg w/least 12 lds w/i&r EKG (In office) [facility] Work Phone: Start: 04-30-2015 End: 02-20-2016 Follow Up Appt 2 months Follow Up Appt 2 months [facility] Work Phone: Start: 04-30-2015 End: 09-18-2015 Follow up Appt 3 weeks Follow up Appt 3 weeks [facility] Work Phone: Start: 04-30-2015 End: 05-01-2015 Magnesium *Magnesium [facility] Work Phone: Start: 04-30-2015 End: 09-18-2015 MMM MMM [facility] Work Phone: Start: 04-30-2015 End: 04-30-2015 Nuclear stress test -Lexiscan Nuclear stress test -Lexiscan [facility] Work Phone: Start: 04-30-2015 End: 02-20-2016 Pacer Clinic Pacer Clinic [facility] Work Phone: Start: 04-30-2015 End: 09-18-2015 *BMP *BMP [facility] Work Phone: Start: 04-30-2015 End: 09-18-2015 Chest x-ray X-Ray, Chest, PA & Lateral [facility] Work Phone: Start: 04-30-2015 End: 04-30-2015 Electrocardiogram, complete EKG (In office) [facility] Work Phone: Start: 04-30-2015 End: 02-20-2016 Follow Up Appt 2 months Follow Up Appt 2 months [facility] Work Phone: Start: 04-30-2015 End: 09-18-2015 Follow up Appt 3 weeks Follow up Appt 3 weeks [facility] Work Phone: Start: 04-30-2015 End: 05-01-2015 Magnesium *Magnesium [facility] Work Phone: Start: 04-30-2015 End: 09-18-2015 MMM MMM [facility] Work Phone: Start: 04-30-2015 End: 04-30-2015 Nuclear stress test -Lexiscan Nuclear stress test -Lexiscan [facility] Work Phone: Start: 04-30-2015 End: 02-20-2016 Pacer Clinic Pacer Clinic [facility] Work Phone: Start: 04-22-2015 End: 04-23-2015 *BMP *BMP [facility] Work Phone: Start: 04-22-2015 End: 04-23-2015 BNP *Brain Natriuretic Peptide BNP [facility] Work Phone: Start: 04-22-2015 End: 04-22-2015 Follow Up Appt 6 months Follow Up Appt 6 months [facility] Work Phone: Start: 04-22-2015 End: 04-22-2015 PFM PFM [facility] Work Phone: Start: 04-22-2015 End: 04-23-2015 *BMP *BMP [facility] Work Phone: Start: 04-22-2015 End: 04-23-2015 BNP *Brain Natriuretic Peptide BNP [facility] Work Phone: Start: 04-22-2015 End: 04-22-2015 Follow Up Appt 6 months Follow Up Appt 6 months [facility] Work Phone: Start: 04-22-2015 End: 04-22-2015 PFM PFM [facility] Work Phone: Start: 03-10-2015 End: 04-14-2015 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 [facility] Work Phone: Start: 03-10-2015 End: 04-14-2015 Pacer Clinic Pacer Clinic [facility] Work Phone: Start: 03-10-2015 End: 04-14-2015 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 [facility] Work Phone: Start: 03-10-2015 End: 04-14-2015 Pacer Clinic Pacer Clinic [facility] Work Phone: Start: 12-30-2014 End: 02-20-2015 *Hepatic Function Panel *Hepatic Function Panel [facility] Work Phone: Start: 12-30-2014 End: 02-20-2015 Lipid panel [AGGREGATE] *Lipid Profile CC PCP [facility] Work Phone: Start: 12-30-2014 End: 02-20-2015 *Hepatic Function Panel *Hepatic Function Panel [facility] Work Phone: Start: 12-30-2014 End: 02-20-2015 Lipid panel [AGGREGATE] *Lipid Profile CC PCP [facility] Work Phone: Start: 12-09-2014 End: 04-14-2015 Follow Up Appt 3 months Follow Up Appt 3 months [facility] Work Phone: Start: 12-09-2014 End: 04-14-2015 Pacer Clinic Pacer Clinic [facility] Work Phone: Start: 12-09-2014 End: 04-14-2015 Follow Up Appt 3 months Follow Up Appt 3 months [facility] Work Phone: Start: 12-09-2014 End: 04-14-2015 Pacer Clinic Pacer Clinic [facility] Work Phone: Start: 10-02-2014 End: 10-02-2014 Echocardiography Echocardiogram (complete) [facility] Work Phone: Start: 10-02-2014 End: 10-02-2014 Follow Up Appt 6 months Follow Up Appt 6 months [facility] Work Phone: Start: 10-02-2014 End: 10-02-2014 MMM MMM [facility] Work Phone: Start: 10-02-2014 End: 10-02-2014 Echocardiography Echocardiogram (complete) [facility] Work Phone: Start: 10-02-2014 End: 10-02-2014 Follow Up Appt 6 months Follow Up Appt 6 months [facility] Work Phone: Start: 10-02-2014 End: 10-02-2014 MMM MMM [facility] Work Phone: Start: 09-06-2014 End: 10-02-2014 Follow Up Appt 3 months Follow Up Appt 3 months [facility] Work Phone: Start: 09-06-2014 End: 10-02-2014 Pacer Clinic Pacer Clinic [facility] Work Phone: Start: 09-06-2014 End: 10-02-2014 Follow Up Appt 3 months Follow Up Appt 3 months [facility] Work Phone: Start: 09-06-2014 End: 10-02-2014 Pacer Clinic Pacer Clinic [facility] Work Phone: Start: 06-04-2014 End: 07-11-2014 Follow Up Appt 3 months Follow Up Appt 3 months [facility] Work Phone: Start: 06-04-2014 End: 10-02-2014 Pacer Clinic Pacer Clinic [facility] Work Phone: Start: 06-04-2014 End: 07-11-2014 Follow Up Appt 3 months Follow Up Appt 3 months [facility] Work Phone: Start: 06-04-2014 End: 10-02-2014 Pacer Clinic Pacer Clinic [facility] Work Phone: Start: 04-04-2014 End: 04-04-2014 Follow Up Appt 6 months Follow Up Appt 6 months [facility] Work Phone: Start: 04-04-2014 End: 04-14-2015 Follow Up Appt Other Follow Up Appt Other [facility] Work Phone: Start: 04-04-2014 End: 04-04-2014 PFM PFM [facility] Work Phone: Start: 04-04-2014 End: 04-04-2014 Follow Up Appt 6 months Follow Up Appt 6 months [facility] Work Phone: Start: 04-04-2014 End: 04-14-2015 Follow Up Appt Other Follow Up Appt Other [facility] Work Phone: Start: 04-04-2014 End: 04-04-2014 PFM PFM [facility] Work Phone: Start: 04-01-2014 End: 07-11-2014 *Hepatic Function Panel *Hepatic Function Panel [facility] Work Phone: Start: 04-01-2014 End: 07-11-2014 Lipid panel [AGGREGATE] *Lipid Profile CC PCP [facility] Work Phone: Start: 04-01-2014 End: 07-11-2014 *Hepatic Function Panel *Hepatic Function Panel [facility] Work Phone: Start: 04-01-2014 End: 07-11-2014 Lipid panel [AGGREGATE] *Lipid Profile CC PCP [facility] Work Phone: Start: 02-26-2014 End: 03-15-2014 Follow Up Appt 3 months Follow Up Appt 3 months [facility] Work Phone: Start: 02-26-2014 End: 03-15-2014 Pacer Clinic Pacer Clinic [facility] Work Phone: Start: 02-26-2014 End: 03-15-2014 Follow Up Appt 3 months Follow Up Appt 3 months [facility] Work Phone: Start: 02-26-2014 End: 03-15-2014 Pacer Clinic Pacer Clinic [facility] Work Phone: Start: 11-19-2013 End: 03-15-2014 Follow Up Appt 3 months Follow Up Appt 3 months [facility] Work Phone: Start: 11-19-2013 End: 03-15-2014 Pacer Clinic Pacer Clinic [facility] Work Phone: Start: 11-19-2013 End: 03-15-2014 Follow Up Appt 3 months Follow Up Appt 3 months [facility] Work Phone: Start: 11-19-2013 End: 03-15-2014 Pacer Clinic Pacer Clinic [facility] Work Phone: Start: 09-26-2013 End: 10-26-2013 *Hepatic Function Panel *Hepatic Function Panel [facility] Work Phone: Start: 09-26-2013 End: 03-15-2014 Follow Up Appt 6 months Follow Up Appt 6 months [facility] Work Phone: Start: 09-26-2013 End: 10-26-2013 Lipid panel [AGGREGATE] *Lipid Profile CC PCP [facility] Work Phone: Start: 09-26-2013 End: 03-15-2014 MMM MMM [facility] Work Phone: Start: 09-26-2013 End: 10-26-2013 *Hepatic Function Panel *Hepatic Function Panel [facility] Work Phone: Start: 09-26-2013 End: 03-15-2014 Follow Up Appt 6 months Follow Up Appt 6 months [facility] Work Phone: Start: 09-26-2013 End: 10-26-2013 Lipid panel [AGGREGATE] *Lipid Profile CC PCP [facility] Work Phone: Start: 09-26-2013 End: 03-15-2014 MMM MMM [facility] Work Phone: Start: 08-16-2013 End: 03-15-2014 Follow Up Appt 3 months Follow Up Appt 3 months [facility] Work Phone: Start: 08-16-2013 End: 03-15-2014 Pacer Clinic Pacer Clinic [facility] Work Phone: Start: 08-16-2013 End: 03-15-2014 Follow Up Appt 3 months Follow Up Appt 3 months [facility] Work Phone: Start: 08-16-2013 End: 03-15-2014 Pacer Clinic Pacer Clinic [facility] Work Phone: Start: 05-16-2013 End: 03-15-2014 Follow Up Appt 3 months Follow Up Appt 3 months [facility] Work Phone: Start: 05-16-2013 End: 03-15-2014 Pacer Clinic Pacer Clinic [facility] Work Phone: Start: 05-16-2013 End: 03-15-2014 Follow Up Appt 3 months Follow Up Appt 3 months [facility] Work Phone: Start: 05-16-2013 End: 03-15-2014 Pacer Clinic Pacer Clinic [facility] Work Phone: Start: 05-01-2013 End: 03-15-2014 *Hepatic Function Panel *Hepatic Function Panel [facility] Work Phone: Start: 05-01-2013 End: 03-15-2014 Lipid panel [AGGREGATE] *Lipid Profile [facility] Work Phone: Start: 05-01-2013 End: 03-15-2014 *Hepatic Function Panel *Hepatic Function Panel [facility] Work Phone: Start: 05-01-2013 End: 03-15-2014 Lipid panel [AGGREGATE] *Lipid Profile [facility] Work Phone: Start: 03-26-2013 End: 03-26-2013 *Hepatic Function Panel *Hepatic Function Panel [facility] Work Phone: Start: 03-26-2013 End: 03-26-2013 Follow Up Appt 6 months Follow Up Appt 6 months [facility] Work Phone: Start: 03-26-2013 End: 03-26-2013 Lipid panel [AGGREGATE] *Lipid Profile CC PCP [facility] Work Phone: Start: 03-26-2013 End: 03-26-2013 PFM PFM [facility] Work Phone: Start: 03-26-2013 End: 03-26-2013 *Hepatic Function Panel *Hepatic Function Panel [facility] Work Phone: Start: 03-26-2013 End: 03-26-2013 Follow Up Appt 6 months Follow Up Appt 6 months [facility] Work Phone: Start: 03-26-2013 End: 03-26-2013 Lipid panel [AGGREGATE] *Lipid Profile CC PCP [facility] Work Phone: Start: 03-26-2013 End: 03-26-2013 PFM PFM [facility] Work Phone: Start: 02-13-2013 End: 03-26-2013 Follow Up Appt 3 months Follow Up Appt 3 months [facility] Work Phone: Start: 02-13-2013 End: 03-26-2013 Pacer Clinic Pacer [facility] Work Phone: Start: 02-13-2013 End: 03-26-2013 Follow Up Appt 3 months Follow Up Appt 3 months [facility] Work Phone: Start: 02-13-2013 End: 03-26-2013 Pacer Clinic [facility] Work Phone: Start: 11-16-2012 End: 11-23-2012 *BMP *BMP [facility] Work Phone: Start: 11-16-2012 End: 11-23-2012 *CBC with Differential *CBC with Differential [facility] Work Phone: Start: 11-16-2012 End: 11-23-2012 *Hepatic Function Panel *Hepatic Function Panel [facility] Work Phone: Start: 11-16-2012 End: 11-16-2012 Echocardiography Echocardiogram (complete) [facility] Work Phone: Start: 11-16-2012 End: 11-16-2012 Follow Up Appt Other Follow Up Appt Other [facility] Work Phone: Start: 11-16-2012 End: 11-23-2012 Lipid panel [AGGREGATE] *Lipid Profile [facility] Work Phone: Start: 11-16-2012 End: 11-23-2012 Thyroid stimulating hormone (TSH) *TSH [facility] Work Phone: Start: 11-16-2012 End: 11-23-2012 *BMP *BMP [facility] Work Phone: Start: 11-16-2012 End: 11-23-2012 *CBC with Differential *CBC with Differential [facility] Work Phone: Start: 11-16-2012 End: 11-23-2012 *Hepatic Function Panel *Hepatic Function Panel [facility] Work Phone: Start: 11-16-2012 End: 11-16-2012 Echocardiography Echocardiogram (complete) [facility] Work Phone: Start: 11-16-2012 End: 11-16-2012 Follow Up Appt Other Follow Up Appt Other [facility] Work Phone: Start: 11-16-2012 End: 11-23-2012 Lipid panel [AGGREGATE] *Lipid Profile [facility] Work Phone: Start: 11-16-2012 End: 11-23-2012 Thyroid stimulating hormone (TSH) *TSH [facility] Work Phone: Start: 11-07-2012 End: 11-07-2012 Follow Up Appt 3 months Follow Up Appt 3 months [facility] Work Phone: Start: 11-07-2012 End: 11-07-2012 Pacer Clinic Pacer Clinic [facility] Work Phone: Start: 11-07-2012 End: 11-07-2012 Follow Up Appt 3 months Follow Up Appt 3 months [facility] Work Phone: Start: 11-07-2012 End: 11-07-2012 Pacer Clinic [facility] Work Phone: Start: 06-01-2012 End: 12-02-2011 *Hepatic Function Panel *Hepatic Function Panel [facility] Work Phone: Start: 06-01-2012 End: 06-01-2012 Follow Up Appt 6 months Follow Up Appt 6 months [facility] Work Phone: Start: 06-01-2012 End: 12-02-2011 Lipid panel [AGGREGATE] *Lipid Profile [facility] Work Phone: Start: 06-01-2012 End: 12-02-2011 *Hepatic Function Panel *Hepatic Function Panel [facility] Work Phone: Start: 06-01-2012 End: 06-01-2012 Follow Up Appt 6 months Follow Up Appt 6 months [facility] Work Phone: Start: 06-01-2012 End: 12-02-2011 Lipid panel [AGGREGATE] *Lipid Profile [facility] Work Phone: Start: 05-03-2012 End: 06-01-2012 *Hepatic Function Panel *Hepatic Function Panel [facility] Work Phone: Start: 05-03-2012 End: 06-01-2012 Lipid panel [AGGREGATE] *Lipid Profile [facility] Work Phone: Start: 05-03-2012 End: 06-01-2012 *Hepatic Function Panel *Hepatic Function Panel [facility] Work Phone: Start: 05-03-2012 End: 06-01-2012 Lipid panel [AGGREGATE] *Lipid Profile [facility] Work Phone: Start: 02-29-2012 End: 02-29-2012 Follow Up Appt 3 months Follow Up Appt 3 months [facility] Work Phone: Start: 02-29-2012 End: 02-29-2012 Follow Up Appt 3 months Follow Up Appt 3 months [facility] Work Phone: Start: 02-02-2012 End: 11-30-2011 *Hepatic Function Panel *Hepatic Function Panel [facility] Work Phone: Start: 02-02-2012 End: 11-30-2011 Lipid panel [AGGREGATE] *Lipid Profile [facility] Work Phone: Start: 02-02-2012 End: 11-30-2011 *Hepatic Function Panel *Hepatic Function Panel [facility] Work Phone: Start: 02-02-2012 End: 11-30-2011 Lipid panel [AGGREGATE] *Lipid Profile [facility] Work Phone: Start: 12-01-2011 End: 11-30-2011 *BMP *BMP [facility] Work Phone: Start: 12-01-2011 End: 11-30-2011 Magnesium *Magnesium [facility] Work Phone: Start: 12-01-2011 End: 11-30-2011 *BMP *BMP [facility] Work Phone: Start: 12-01-2011 End: 11-30-2011 Magnesium *Magnesium [facility] Work Phone: Start: 11-12-2011 End: 11-30-2011 *BMP *BMP [facility] Work Phone: Start: 11-12-2011 End: 11-30-2011 *Hepatic Function Panel *Hepatic Function Panel [facility] Work Phone: Start: 11-12-2011 End: 11-30-2011 Ecg routine ecg w/least 12 lds w/i&r EKG (In office) [facility] Work Phone: Start: 11-12-2011 End: 11-12-2011 Echocardiography Echocardiogram (complete) [facility] Work Phone: Start: 11-12-2011 End: 11-30-2011 Follow Up Appt 3 months Follow Up Appt 3 months [facility] Work Phone: Start: 11-12-2011 End: 11-30-2011 Lipid panel [AGGREGATE] *Lipid Profile [facility] Work Phone: Start: 11-12-2011 End: 11-30-2011 Magnesium *Magnesium [facility] Work Phone: Start: 11-12-2011 End: 11-12-2011 Nuclear stress test -adenosine Nuclear stress test -adenosine [facility] Work Phone: Start: 11-12-2011 End: 11-30-2011 Thyroid stimulating hormone (TSH) *TSH [facility] Work Phone: Start: 11-12-2011 End: 11-30-2011 Thyroxine (T4) *T4 (Total) [facility] Work Phone: Start: 11-12-2011 End: 11-30-2011 *BMP *BMP [facility] Work Phone: Start: 11-12-2011 End: 11-30-2011 *Hepatic Function Panel *Hepatic Function Panel [facility] Work Phone: Start: 11-12-2011 End: 11-12-2011 Echocardiography Echocardiogram (complete) [facility] Work Phone: Start: 11-12-2011 End: 11-30-2011 Electrocardiogram, complete EKG (In office) [facility] Work Phone: Start: 11-12-2011 End: 11-30-2011 Follow Up Appt 3 months Follow Up Appt 3 months [facility] Work Phone: Start: 11-12-2011 End: 11-30-2011 Lipid panel [AGGREGATE] *Lipid Profile [facility] Work Phone: Start: 11-12-2011 End: 11-30-2011 Magnesium *Magnesium [facility] Work Phone: Start: 11-12-2011 End: 11-12-2011 Nuclear stress test -adenosine Nuclear stress test -adenosine [facility] Work Phone: Start: 11-12-2011 End: 11-30-2011 Thyroid stimulating hormone (TSH) *TSH [facility] Work Phone: Start: 11-12-2011 End: 11-30-2011 Thyroxine (T4) *T4 (Total) [facility] Work Phone: Start: 08-06-2011 End: 08-06-2011 Follow Up Appt Other Follow Up Appt Other [facility] Work Phone: Start: 08-06-2011 End: 08-06-2011 Follow Up Appt Other Follow Up Appt Other [facility] Work Phone: Start: 2006 Pneumococcal 65+ yea rs Vaccine (1 of 1 - PPSV23) Pneumococcal 65+ years Vaccine (1 of 1 - PPSV23) [place], [place] Start: 2006 PNEUMOCOCCAL: 65+ (1 - PCV) PNEUMOCOCCAL: 65+ (1 - PCV) [facility] Start: 1991 Shingles Vaccine (1 of 2) Navarro gles Vaccine (1 of 2) [place], [place] Start: 1991 SHINGRIX VACCINE (1 of 2) NAVARRO GRIX VACCINE (1 of 2) [facility] Start: 1960 DTaP/Tdap/Td vaccine (1 - Tdap) DTaP/Tdap/Td vaccine (1 - Tdap) [place], [place] Start: 1960 Urine microalbumin profile DTAP,TDAP,TD (1 - Tdap) [facility] Start: 1951 Lipid panel Lipid screen [place], [place] Start: 1941 Creatinine measurement Creatinine mo nitoring [place], [place] Start: 1941 Potassium monitoring Potassium monit oring [place] Alanine aminotransfe rase [Enzymatic activity/volume] in Serum or Plasma [facility] Albumin [Mass/volume ] in Serum or Plasma [facility] Alkaline phosphatase [Enzymatic activity/volume] in Serum or Plasma [facility] Anion gap in Serum o r Plasma [facility] Anion gap in Serum o r Plasma [facility] Bilirubin, total measurement [facility] BUN/Creatinine ratio [facility] BUN/Creatinine ratio [facility] Calcium [Mass/volume ] in Serum or Plasma [facility] Calcium [Mass/volume ] in Serum or Plasma [facility] Carbon dioxide, tota l [Moles/volume] in Central venous blood [facility] Carbon dioxide, tota l [Moles/volume] in Central venous blood [facility] CBC W Auto Different ial panel - Blood [facility] Cobalamin (Vitamin B 12) [Mass/volume] in Serum or Plasma [facility] Creatinine [Mass/vol ume] in Serum or Plasma [facility] Creatinine [Mass/vol ume] in Serum or Plasma [facility] Erythrocyte mean corpuscular volume determination [facility] Erythrocyte mean corpuscular volume determination [facility] Ferritin [Mass/volum e] in Serum or Plasma [facility] Glucose [Mass/volume ] in Serum or Plasma [facility] Glucose [Mass/volume ] in Serum or Plasma [facility] Hematocrit [Volume Fraction] of Blood [facility] Hematocrit [Volume Fraction] of Blood [facility] Hemoglobin [Mass/vol ume] in Blood [facility] Hemoglobin [Mass/vol ume] in Blood [facility] Hemoglobin A1c/Hemoglobin.total in Blood [facility] Iron [Mass/mass] in Unspecified specimen [facility] Iron and Iron bindin g capacity panel - Serum or Plasma [facility] Iron saturation [Mas s Fraction] in Serum or Plasma [facility] Leukocytes [#/volume ] in Blood [facility] Leukocytes [#/volume ] in Blood [facility] Magnesium measurement [facility] Mean corpuscular hemoglobin concentration determination [facility] Mean corpuscular hemoglobin concentration determination [facility] Mean corpuscular hemoglobin determination [facility] Mean corpuscular hemoglobin determination [facility] Measurement of renal function [facility] Measurement of renal function [facility] Neutrophil count [facility] Neutrophil count [facility] Neutrophil percent differential count [facility] Neutrophil percent differential count [facility] Patient Education [facility] Work Phone: Patient referral [facility] Work Phone: Platelets [#/volume] in Blood [facility] Platelets [#/volume] in Blood [facility] Potassium measurement [facility] Potassium measurement [facility] Red blood cell count [facility] Red blood cell count [facility] Red cell distributio n width determination [facility] Red cell distributio n width determination [facility] Serum chloride measurement [facility] Serum chloride measurement [facility] Sodium measurement [facility] Sodium measurement [facility] Total iron binding capacity measurement [facility] Total protein measurement [facility] Urea nitrogen [Mass/volume] in Serum or Plasma [facility] Urea nitrogen [Mass/volume] in Serum or Plasma [facility] US Carotid arteries [facility] End: 07-17-2020 XR CERVICAL SPINE (2-3 VIEWS) XR CERVICAL SPINE (2-3 VIEWS) Imaging Routine Once for 1 Occurrences starting 07/17/2020 until [facility] above: Once for 1 Occurrenc es starting 07/17/2020 until 07/17/2020 XR CERVICAL SPINE (2 -3 VIEWS) XR CERVICAL SPINE (2-3 VIEWS) Imaging Routine 07/17/2020 9:12 AM [facility] Payers Date Payer Category Payer Self-pay [id number] 2023 Medicare [employer] MEDICARE A ETNA MEDICARE PPO [id number] 2023- [phone] [address] [place] [address] PPO [id number] 2006 Unknown [id number] .[id number] 2006 Medicare [id number] .[id number] Unknown [id number] 2.16.840.1.124300.3.579.2.462 Unknown [id number] 2.16.840.1.663475.3.579.2.462 Unknown [id number] 2.16.840.1.696930.3.579.2.462 Unknown [id number] 2.16.840.1.148844.3.579.2.462 Unknown [id number] 2.16.840.1.581560.3.579.2.462 Unknown [id number] 2.16.840.1.214726.3.579.2.462 Unknown [id number] 2.16.840.1.933018.3.579.2.462 Unknown [id number] 2.16840.1.940685.3.579.2.462 Unknown [id number] 2.16.840.1.763604.3.579.2.462 Unknown [id number] 2.16.840.1.963888.3.579.2.462 Unknown [id number] 2.16.840.1.689703.3.579.2.462 Unknown [id number] 2.16.840.1.132374.3.579.2.462 Unknown [id number] 2.16.840.1.898174.3.579.2.462 Unknown [id number] 2.16.840.1.267600.3.579.2.462 Unknown [id number] 2.16.840.1.080396.3.579.2.462 Unknown [id number] 2.16.840.1.128311.3.579.2.462 Unknown [id number] 2.16.840.1.139078.3.579.2.462 Unknown [id number] 2.16.840.1.307016.3.579.2.462 Unknown [id number] 2.16.840.1.036482.3.579.2.462 Unknown [id number] 2.16.840.1.141627.3.579.2.462 Unknown [id number] 2.16.840.1.330757.3.579.2.462 Unknown [id number] 2.16.840.1.502144.3.579.2.462 Unknown [id number] 2.16.840.1.161438.3.579.2.462 Unknown [id number] 2.16.840.1.832046.3.579.2.462 Unknown [id number] 2.16.840.1.165295.3.579.2.462 Unknown [id number] 2.16.840.1.625243.3.579.2.462 Unknown [id number] 2.16.840.1.480103.3.579.2.462 Unknown [id number] 2.16.840.1.240974.3.579.2.462 Unknown [id number] 2.16.840.1.935625.3.579.2.462 Unknown [id number] 2.16.840.1.260626.3.579.2.462 Unknown [id number] 2.16.840.1.995591.3.579.2.462 Unknown [id number] 2.16.840.1.224479.3.579.2.462 Unknown [id number] 2.16.840.1.192415.3.579.2.462 Unknown [id number] 2.16.840.1.379797.3.579.2.462 Unknown [id number] 2.16.840.1.312876.3.579.2.462 Unknown [id number] 2.16.840.1.761265.3.579.2.462 Unknown [id number] 2.16.840.1.686258.3.579.2.462 Unknown [id number] 2.16.840.1.443335.3.579.2.462 Unknown [id number] 2.16.840.1.929049.3.579.2.462 Unknown [id number] 2.16.840.1.137947.3.579.2.462 Social History Date Type Detail Facility Start: 04-24-2020 End: 01-22-2023 Tobacco smoking status PRIS Never smoker [facility] Start: 04-24-2020 End: 01-22-2023 Tobacco use and exposure Never used [place], [place] Start: 1940 Sex Assigned At Not on file [place] Start: 05-21-2021 End: 09-27-2023 Tobacco smoking status [facility] Unknown if ever smoked [facility] Start: 1940 Sex Assigned At Male W [facility] Start: 03-17-2018 With Family [facility] Start: 10-07-2024 End: 01-04-2025 Tobacco smoking status PRIS Ex-smoker (finding) [facility] Start: 10-07-2024 End: 11-26-2024 Sex Male (finding) [facility] Medical Equipment Procedure Code Equipment Code Equipment Origin al Text Equipment Identifier Dates [id number] Start: 06-03-2020 Comment on above: USE 1 (ONE) STRIP TO TEST BLOOD SUGAR THREE TIMES DAILY Blood Sugar Diagnostic strip Start: 10-11-2024 Blood Sugar Diagnostic (True Metrix Glucose Test Strip) strip Start: 10-11-2024 Blood Sugar Diagnostic (True Metrix Glucose Test Strip) strip Start: 10-11-2024 Blood Sugar Diagnostic (True Metrix Glucose Test Strip) strip Start: 10-11-2024 Blood Sugar Diagnostic (True Metrix Glucose Test Strip) strip Start: 10-11-2024 Blood Sugar Diagnostic (True Metrix Glucose Test Strip) strip Start: 10-11-2024 Blood Sugar Diagnostic (True Metrix Glucose Test Strip) strip Start: 10-11-2024 Blood Sugar Diagnostic (True Metrix Glucose Test Strip) strip Start: 10-11-2024 Goals Date Patient Goal Desired Activity /State Functional Status Date Assessment Result Facility 10-13-2024 Functional status Ambulates;Bathroom Priv ilege [facility] Work Phone: 10-12-2024 Functional status Fair [facility] Work Phone: 10-08-2024 Functional status Standby Assist [facility] Work Phone: Mental Status Date Assessment Result Facility 01-09-2025 Cognitive function Voice/Name [facility] Work Phone: 10-13-2024 Cognitive function Awake;Alert;A ppropriate;Follow s Commands [facility] Work Phone: 10-12-2024 Cognitive function Voice/Name [facility] Work Phone: 10-11-2024 Cognitive function Voice/Name [facility] Work Phone: 10-08-2024 Cognitive function Voice/Name [facility] Work Phone: 10-07-2024 Cognitive function Level Of Cons ciousness Awake;Alert;Appropriate;Follow s Commands [facility] Work Phone: Clinical Notes 12-19-2020 to 01-09-2025 Note Date & Type Note Facility 01-09-2025 Evaluation note Diagnosis Onset Date Resolution Gastric ulcer acute January 09, 2025 12:10pm Left knee DJD acute January 28, 2025 1:39pm Aortic valve stenosis, nonrheumatic acute January 30, 2025 11:26am ICD (implantable cardioverter-defibril lator) in place acute January 30, 2025 11:26am Atherosclerosis of [place] coronary artery of [place] heart without angina chronic January 30, 2 025 11:26am Essential (primary) hypertension chronic January 30, 2025 11:26am 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, chronic January 30, 2025 11:26am Ischemic cardiomyopathy chronic January 30, 2025 11:26am assisted current use of 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 chronic January 30, 2025 11:26am Paroxysmal atrial fibrillation chronic January 30, 2025 11:26am [facility] Work Phone: 1(803) 741-686606-11-[address] [facility] 01-09-[address] [facility]06-11-2025 [facility]05-29-2025 Radiology Diagnostic study [facility]04-03-2025 Evaluation note* Diagnosis Onset Date Resolution Status Admit Date Aortic valve stenosis, nonrheumatic acute November 01, 2024 10:23am ICD (implantable cardioverter-defibrillator) in place acute November 01, 2024 10:23am Atherosclerosis of [place] coronary artery of [place] heart without angina chronic November 01, 2024 10:23am Essential (primary) hypertension chr onic November 01, 2024 10:23am 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, chronic November 01 10:23am Ischemic cardiomyopathy chronic A pril 2024 10:23am assisted current use of 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 chronic November 01, 2024 10:23am Paroxysmal atrial fibrillation chron ic November 01, 2024 10:23am Gastric ulcer acute January 09, 2025 12:10pm Left knee DJD acute January 28, 2025 1:39pm Aortic valve stenosis, nonrheumatic acute January 30, 2025 1 1:26am ICD (implantable cardioverter-defibrillator) in place acute January 30, 2025 1 1:26am Atherosclerosis of [place] coronary artery of [place] heart without angina chronic January 30, 2025 1 1:26am Essential (primary) hypertension chr onic January 30, 2025 11:26am 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, chronic January 30 11:26am Ischemic cardiomyopathy chronic J maya 2024 11:26am assisted current use of 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 chronic January 30, 2025 1 1:26am Paroxysmal atrial fibrillation chron ic January 30, 2025 11:26am [facility] Work Phone: 1(962) 831-126503-15-2025 Consult note [facility] Medical Records Department [address] [place] [address] Anesthesia Postop Eval II 10/12/241910 MR#: [id number] Acct: [id number] Name: JUAN DAVID HERNÁNDEZ Rep #:[id number] : 1940 84 From: Lance Oconnor MD PCP: Dr. Jose Enrique Finney MD Status:AD M IN Y Race: C Location: [place] [address] 5-1 Anesthesia Postop Eval I Sum Postop Eval Completion status Anesthesia document: Postop Eval 1 completed: Yes Anesthesia Postop Eval I Summary Anesthesia Postop Eval I Summary: Anesthesia Postop Eval I: Assessment Summary Airway patent Yes 10/12/24 19:08 Spontaneous unlabored Yes 10/12/24 19:08 respirations Mental status Awake 10/12/24 19:08 nausea No 10/12/24 19:08 Vomiting No 10/12/24 19:08 Anesthesia Postop Eval I: Fluid Summary Crystalloid volume administer 10 10/12/24 19:08 (ml) Colloids volume administered ( ml) Blood Product volume administered (ml) Total IV fluid infused 10 10/12/24 19:08 Anesthesia Postop Eval I: Summary Notes Anesthesia Complication No 10/12/24 19:08 Anesthesia Complication Comment: Post-operative progress note Anesthesia: Postop Eval II Evaluation Mental status: Awake Pain Level: 0 nausea: No Vomiting: No 10/12/241910 > Date _ Lance Oconnor MD Cosigner Signature: Date CC: ~ Signed [facility]03-15-2025 Discharge summary [facility] Medical Records Department [address] [place] [address] Discharge Summary 10/13/24 1311 MR#: [id number] Acct: [id number] Name: JUAN DAVID HERNÁNDEZ Rep #:[id number] : 1940 84 From: García sharpe MD PCP: Dr. Jose Enrique Finney MD Status:AD M IN Location: [place] [id number] Providers Date of Admission: 10/11/24 Primary Care Physician: Dr. Jose Enrique Finney MD Consultations 10/12/24 03:41 Consult: Gastroenterology Routine Consulting Provider: [facility] Reason for Consult: UGIB with Melanotic Stools and ABLA EMERGENT Consult: No MD Notified: Yes Date Notified: 10/12/24 Time Notified: 06:55 Method of Notification: Text Reason For Visit: UGIB WITH MELENA & SEVERE HYPOTENSION WITH LISA Diagnosis Discharge Diagnosis (1) Melanotic stools: Status: Acute Code(s): K92.1 - Melena (2) LISA (acute kidney injury): Status: Acute Code(s): N17.9 - Acute kidney failure, unspecified Medications at Discharge Home Medications multivitamin with folic acid 400 mcg tablet 1 tab PO DAILY supplement 04/11/17 insulin lispro 100 unit/mL subcutaneous cartridge 10 unit subcut TID blood sugar03/17/18 insulin detemir U-100 100 unit/mL (3 mL) subcutaneous pen 32 unit subcut QHS diabetes 11/10/20 tamsulosin 0.4 mg capsule 0.4 mg PO DAILY prostate 11/10/20 zolpidem 5 mg tablet (Ambien) 5 mg PO QHS PRN insomnia 11/10/20 apixaban 5 mg tablet 5 mg PO BID Blood thinner #180 tabs 02/24/21 Held on 10/13/24. Instructions: Resume on 10/15/24. carvedilol 12.5 mg tablet 12.5 mg PO BID Heart rate/blood pressure #180 tabs 02/24/21 nitroglycerin 0.4 mg sublingual tablet (Nitrostat) 0.4 mg sublingual Q5-15M PRN chest pain #25 tabs03/22/23 isosorbide mononitrate 30 mg tablet,extended release 24 hr 30 mg PO DAILY heart #90 tabs 06/18/24 rosuvastatin 40 mg tablet 40 mg PO DAILY cholesterol #90 tabs 06/18/24 furosemide 40 mg tablet 40 mg PO .COMPLEX diuretic #180 tabs 08/03/24 Held on 10/13/24. Instructions: Resume on 10/14/24. potassium chloride 20 mEq tablet,extended release(part/cryst) 40 meq (2 x 20 mEq) PO BID #120 tabs 10/08/24 blood sugar diagnostic (True Metrix Glucose Test Strip) 10/11/24 pantoprazole 40 mg tablet,delayed release (Protonix) 40 mg PO DAILY #30 tabs 10/13/24 sucralfate 1 gram tablet 1 g PO TIDAC 14 days #42 tabs 10/13/24 Hospital Course Operations None Procedures EGD Summary of Care Provided Minutes Spent on Discharge: 35 Hospital Course: Per HPI: JUAN DAVID HERNÁNDEZ, is a 84 M with a past medical history of essential hypertension; on carvedilol and furosemide, hyperlipidemia; on rosuvastatin, DM- 2; of unknown control on insulin detemir 32U sq HS plus insulin lispro 10U TID, history of PAF; on apixaban, CAD; s/p CABG (2009), ischemic cardiomyopathy with LVEF ~20% (01/2024); s/p AICD-PPM on ISMO and prn SL NTG, history of NSVT; s/p EPstudy (2006), history of nonrheumatic mitral valve insufficiency; s/p 30 mm [place] mitral valve annuloplasty, history of carotid stenosis; s/p Right carotid endarterectomy with bovine patch angioplasty (2020) followed by Dr. Ly of vascular surgery, CKD; stage II, BPH; on tamsulosin, chronic ins omnia;on prn zolpidem q. HS, history of depression with anxiety; currently not on treatment, OA, DNR-CCA; with no intubation CODE STATUS and recent admission herefrom October 07, 2024 to October 08, 2024 with chief complaint of fatigue and malaisewith patient subsequently diagnosed with adult [id number] complicated by LISA; in the setting of stage II CKD with hypokalemia of 2.9 mmol/L and mild hyponatremia of 131 mmol/L who presents to [facility] ER complaining of dizziness andmelena with watery black stools. Mr. Hernández reports his symptoms began approximately 1 day prior to admission after he ate a jar of vinegar beets with subsequent black stools and intermittent dizziness. He then went to see his PCPearlier today and had bloodwork performed as an outpatient that revealed evidence of upper GI bleeding withhemoglobin dropping to 11.1 g/dL (down from 13.3 g/dL on October 08, 2024) in addition to BUN of 84 mg/dL with serum creatinine of 2.22 mg/dL (up from his baseline of 27 mg/dL and 1.81 mg/dL on October 08, 2024) with corresponding symptomatic hypotension so he was directed to come to the ER for further evaluation and treatment. He states he last took his Eliquis at 3:30 PM today. There was no report of fever, chills, sore throat, runny nose, chest pain, lowerextremity edema, shortness of breath, cough, dysuria, hematuria, back pain or headache. In the ER he was noted to have severe hypotension of 86/55 mmHg shortly after admission due to suspected UGIB with ABLA likely due to Adverse Drug Reaction to apixaban with elevated INR of 2.2 present on admission. He wasthen admitted to the [facility] ongoing care for a stay that is expected to extend beyond 2 midnights. Hospital Course: 1. Acute blood loss anemia secondary to GI bleed worsened by Eliquis use/LISA?84-year-old male presented to the hospital with signs and symptoms consistent with GI bleed. He had an EGD which demonstrated a nonbleeding gastric ulcer. No other signs or symptoms of bleeding in the GI tract. Hemoglobin has remainedstable between 8.7 and 8.9 and his Eliquis was held on admission. I discussed with him the possibility for discharge today as GI did not feel like he needed acolonoscopy given the evidenceof the ulcer. He expressed understanding of the risks and benefits of going home and would like to go home today. Given his AKIwill hold his Lasix on discharge for couple of days and given his GI bleed will hold his Eliquis on discharge for couple of days. He will be given prescriptions for Carafate and Protonix and I recommend outpatient follow-up with his PCP to recheck his hemoglobin next week. I also discussed with him theneed to follow-up with gastroenterology in the office if he has any further black stools. 2. Essential hypertension, hyperlipidemia, coronary artery disease status post CABG, paroxysmal A-fib, chronic systolic CHF, type 2 diabetes, BPH are all chronic medical conditions which complicate his care. His home medications werecontinued where appropriate Physical Exam Narrative General: Alert, Oriented x3, Cooperative, No apparent distress HEENT: Atraumatic, PERRLA, EOMI, Normocephalic Oral: Moist Mucosa Neck: Supple, No JVD Lungs: Diminished, Normal air movement, No rhonchi, No wheeze, No rales Cardiovascular: Regular rate, Regular Rhythm, Normal S1, Normal S2, No murmurs Abdomen: Soft, Non Tender, Non-Distended, No Hepato-splenomegaly Extremities: No edema, Capillary Refill Less than 3 Seconds Skin: No rashes, No breakdown Musculoskeletal: No Tenderness to Palpation of Joints or Extremities Neurological: No focal neurological deficits, Motor Exam 5/5 strength throughout, Sensory exam intact to light touch and pain Psych/Mental Status: Normal Affect, Appropriate Weight / BMI Weight Weight: 145 lb 8.081 oz Body Mass Index (BMI) 22.8 ABG / Lab / Microbiology Data 10/13/24 06:06 10/13/24 06:06 Laboratory: Laboratory Results - last 24 hr 10/12/24 19:30: Hgb 8.9 L, Hct 27.0 L 10/12/24 23:47: POC Glucose 150 H 10/13/24 06:00: POC Glucose 144 H 10/13/24 06:06: WBC 6.6, RBC 2.76 L, Hgb 8.7 L, Hct 26.6 L, MCV 96.4 H, MCH 31.5, MCHC 32.7, RDW Std Deviation 49.7 H, RDW Coeff of Marley 14.4, Plt Count 160,MPV 10.1, Immature Gran % (Auto) 0.300, Neut % (Auto) 75.3 H, Lymph % (Auto) 13.7 L, Spencer % (Auto) 8.0, Eos % (Auto) 2.1, Baso % (Auto) 0.6, Absolute Neuts (auto) 5.0, Absolute Lymphs (auto) 0.91, Nucleated RBC % 0, Sodium 143, Potassium 3.4, Chloride 108, Carbon Dioxide 23.7, Anion Gap 11, BUN 52 H, Creatinine 1.87 H, Estim Creat Clear Calc27.94 L, Est GFR (MDRD) Non-Af 35 L, BUN/Creatinine Ratio 27.7 H, Glucose 155 H, Calcium 8.3 10/13/24 11:18: POC Glucose 350 H Microbiology: Microbiology 10/11/24 21:35 Stool Stool Occult Blood (MADELEINE) - Final D/C Instructions Discharge Diet: Low fat / Low cholesterol and Carb Control Diet Call your doctor if you observe: Fever of 101 or Higher, Shortness of breath, Dizziness, Fainting spells, Swelling in the ankles, Chest pain and Increased palpitations (irregular heartbeat) DC O2, CPAP, BIPAP Needs Home O2 Discharge instructions: No Meaningful Use Info Meaningful Use Meaningful Use Diagnoses (Choose all that apply): None applicable Ischemic Stroke Statin Dosing Therapy Reference: STATIN DOSE THERAPY REFERENCE: * Patients > 75 years receive moderate or high dose statin therapy. * Patients 75 years or YOUNGER should receive HIGH intensity statin dose unless contraindicated. You will be required to document reason for non-treatment if statin daily dose does not meet guidelines. HIGH DOSE STATIN THERAPY DAILY Atorvastatin > than or = to 40 mg Rosuvastatin > than or = to 20 mg Amlodipine + Atorvastatin > than or = to 2.5/40 mg Ezetimibe + Simvastatin 10/80 mg Simvastatin 80mg Discharge Plan Admission Admit Date/Time: 10/11/24 23:32 Attending Provider: García Cabezas Primary Care Provider: Jose Enrique Finney Consulting Providers: Germán Landeros Instructions Additional Instructions / Restrictions: Follow-up with your PCP in 3 to 5 days to recheck a CBC to monitor your hemoglobin and anemia. Discharge Orders/Prescriptions Prescriptions: New sucralfate 1 gram Tablet 1 g PO TIDAC 14 Days Qty: 42 0RF pantoprazole [Protonix] 40 mg tablet,delayed release (DR/EC) 40 mg PO DAILY Qty: 30 0RF Continued tamsulosin 0.4 mg capsule 0.4 mg PO DAILY zolpidem [Ambien] 5 mg tablet 5 mg PO QHS PRN (Reason: insomnia) nitroglycerin [Nitrostat] 0.4 mg tablet, sublingual 0.4 mg sublingual Q5-15M PRN (Reason: chest pain) Qty: 25 3RF Rx Instructions: do not exceed 3 doses per episode multivitamin with folic acid 1 TABLET tablet 1 tab PO DAILY insulin detemir U-100 100 unit/mL (3 mL) insulin pen 32 unit SC QHS insulin lispro 100 UNIT/ML cartridge 10 unit SC TID potassium chloride 20 mEq Tablet,Er Particles/Crystals 40 meq PO BID Qty: 120 0RF (DME) True Metrix Glucose Test Strip Strip 1 strip MISCELLANEOUS TID carvedilol 12.5 mg tablet 12.5 mg PO BID Qty: 180 3RF rosuvastatin 40 mg tablet 40 mg PO DAILY Qty: 90 3RF isosorbide mononitrate 30 mg tablet extended release 24 hr 30 mg PO DAILY Qty: 90 3RF Held apixaban 5 mg tablet 5 mg PO BID Qty: 180 3RF Hold Instructions: Resume on 10/15/24. furosemide 40 mg tablet 40 mg PO .COMPLEX Qty: 180 3RF Hold Instructions: Resume on 10/14/24. Rx Instructions: 40 mg orally decrease to once daily: May need to increase back to twice daily if SOB, swelling, etc.; Referrals / Follow Up: Jose Enrique Finney MD [Primary Care Provider] - Within 1 Week FriendCheco DO [Med Staff - Active Staff] - Within 1 Month (Make a sooner appointment if recurrent black stools) Disposition Disposition (needs filled in before D/C Order can be placed): Home, Self Care Charges/Coding Visit Charges Inpatient E&M: 54541 Disch Hosp >30min 10/13/24 1322 Cosigner Signature (if applicable): CC: Dr. Jose Enrique Finney MD; Dr. García Cabezas MD~ Signed [facility]03-15-2025 NoteWooster [facility] [place] Discharge summary Author García Cabezas [facility] Note Date/Time October 13, 2024 9:3 5am [facility] Medical Records Department [address] [place] [address] Instructions for Home/Discharge Instructions 10/13/24 0931 MR#: [id number] Acct: [id number] Name: JUAN DAVID HERNÁNDEZ Rep #:[id number] : 1940 84 From: García sharpe MD PCP: Dr. Jose Enrique Finney MD Status:AD M IN Discharge Instructions Diet Discharge Diet: Low fat / Low cholesterol and Carb Control Diet DC O2, CPAP, BIPAP needs Home O2 Discharge instructions: No Dressing / Incision Discharge Activity: Return to Normal Activity Dressing / Incision Call your doctor if you observe: Fever of 101 or Higher, Shortness of breath, Dizziness, Fainting spells, Swelling in the ankles, Chest pain and Increased palpitations (irregular heartbeat) Follow Up Care Test Results: Test results from this visit will be discussed in further detail at your follow- up appointment, if applicable. Discharge Plan Admission Admit Date/Time: 10/11/24 23:32 Attending Provider: García Cabezas Primary Care Provider: Jose Enrique Finney Consulting Providers: Germán Landeros Instructions Additional Instructions / Restrictions: Follow-up with your PCP in 3 to 5 days to recheck a CBC to monitor your hemoglobin and anemia. Discharge Orders/Prescriptions Prescriptions: New sucralfate 1 gram Tablet 1 g PO TIDAC 14 Days Qty: 42 0RF pantoprazole [Protonix] 40 mg tablet,delayed release (DR/EC) 40 mg PO DAILY Qty: 30 0RF Continued tamsulosin 0.4 mg capsule 0.4 mg PO DAILY zolpidem [Ambien] 5 mg tablet 5 mg PO QHS PRN (Reason: insomnia) nitroglycerin [Nitrostat] 0.4 mg tablet, sublingual 0.4 mg sublingual Q5-15M PRN (Reason: chest pain) Qty: 25 3RF Rx Instructions: do not exceed 3 doses per episode multivitamin with folic acid 1 TABLET tablet 1 tab PO DAILY insulin detemir U-100 100 unit/mL (3 mL) insulin pen 32 unit SC QHS insulin lispro 100 UNIT/ML cartridge 10 unit SC TID potassium chloride 20 mEq Tablet,Er Particles/Crystals 40 meq PO BID Qty: 120 0RF (DME) True Metrix Glucose Test Strip Strip 1 strip MISCELLANEOUS TID carvedilol 12.5 mg tablet 12.5 mg PO BID Qty: 180 3RF rosuvastatin 40 mg tablet 40 mg PO DAILY Qty: 90 3RF isosorbide mononitrate 30 mg tablet extended release 24 hr 30 mg PO DAILY Qty: 90 3RF Held apixaban 5 mg tablet 5 mg PO BID Qty: 180 3RF Hold Instructions: Resume on 10/15/24. furosemide 40 mg tablet 40 mg PO .COMPLEX Qty: 180 3RF Hold Instructions: Resume on 10/14/24. Rx Instructions: 40 mg orally decrease to once daily: May need to increase back to twice daily if SOB, swelling, etc.; Referrals / Follow Up: Jose Enrique Finney MD [Primary Care Provider] - Within 1 Week Friend,DO Checo [Med Staff - Active Staff] - Within 1 Month (Make a sooner appointment if recurrent black stools) Disposition Disposition (needs filled in before D/C Order can be placed): Home, Self Care 10/13/24 0935<Electronically signed by García Cabezas MD>García Cabezas MD CC: Dr. Germán Landeros DO; Dr. Jose Enrique Finney MD ~ Signed [facility] Work Phone: 1(415) 179-950603-15-2025 Discharge summary [facility] Medical Records Department [address] [place] [address] Instructions for Home/Discharge Instructions 10/13/24 0931 MR#: [id number] Acct: [id number] Name: JUAN DAVID HERNÁNDEZ Rep #:[id number] : 1940 84 From: García sharpe MD PCP: Dr. Jose Enrique Finney MD Status:AD M IN Discharge Instructions Diet Discharge Diet: Low fat / Low cholesterol and Carb Control Diet DC O2, CPAP, BIPAP needs Home O2 Discharge instructions: No Dressing / Incision Discharge Activity: Return to Normal Activity Dressing / Incision Call your doctor if you observe: Fever of 101 or Higher, Shortness of breath, Dizziness, Fainting spells, Swelling in the ankles, Chest pain and Increased palpitations (irregular heartbeat) Follow Up Care Test Results: Test results from this visit will be discussed in further detail at your follow- up appointment, if applicable. Discharge Plan Admission Admit Date/Time: 10/11/24 23:32 Attending Provider: García Cabezas Primary Care Provider: Jose Enrique Finney Consulting Providers: Germán Landeros Additional Instructions / Restrictions: Follow-up with your PCP in 3 to 5 days to recheck a CBC to monitor your hemoglobin and anemia. Discharge Orders/Prescriptions Prescriptions: New sucralfate 1 gram Tablet 1 g PO TIDAC 14 Days Qty: 42 0RF pantoprazole [Protonix] 40 mg tablet,delayed release (DR/EC) 40 mg PO DAILY Qty: 30 0RF Continued tamsulosin 0.4 mg capsule 0.4 mg PO DAILY zolpidem [Ambien] 5 mg tablet 5 mg PO QHS PRN (Reason: insomnia) nitroglycerin [Nitrostat] 0.4 mg tablet, sublingual 0.4 mg sublingual Q5-15M PRN (Reason: chest pain) Qty: 25 3RF Rx Instructions: do not exceed 3 doses per episode multivitamin with folic acid 1 TABLET tablet 1 tab PO DAILY insulin detemir U-100 100 unit/mL (3 mL) insulin pen 32 unit SC QHS insulin lispro 100 UNIT/ML cartridge 10 unit SC TID potassium chloride 20 mEq Tablet,Er Particles/Crystals 40 meq PO BID Qty: 120 0RF (DME) True Metrix Glucose Test Strip Strip 1 strip MISCELLANEOUS TID carvedilol 12.5 mg tablet 12.5 mg PO BID Qty: 180 3RF rosuvastatin 40 mg tablet 40 mg PO DAILY Qty: 90 3RF isosorbide mononitrate 30 mg tablet extended release 24 hr 30 mg PO DAILY Qty: 90 3RF Held apixaban 5 mg tablet 5 mg PO BID Qty: 180 3RF Hold Instructions: Resume on 10/15/24. furosemide 40 mg tablet 40 mg PO .COMPLEX Qty: 180 3RF Hold Instructions: Resume on 10/14/24. Rx Instructions: 40 mg orally decrease to once daily: May need to increase back to twice daily if SOB, swelling, etc.; Referrals / Follow Up: Jose Enrique Finney MD [Primary Care Provider] - Within 1 Week Checo Chavez DO [Med Staff - Active Staff] - Within 1 Month (Make a sooner appointment if recurrent black stools) Disposition Disposition (needs filled in before D/C Order can be placed): Home, Self Care 10/13/24 0935García Cabezas MD CC: Dr. Germán Landeros DO; Dr. Jose Enrique Finney MD ~ Signed [facility]03-14-2025 Consult note Author Lance Oconnor [facility] Note Date/Time October 13, 2024 2:[address] [facility] Medical Records Department [address] [address] Anesthesia Postop Eval II 10/12/241910 MR#: [id number] Acct: [id number] Name: JUAN DAVID HERNÁNDEZ Rep #:[id number] : 1940 84 From: Lance Oconnor MD PCP: Dr. Jose Enrique Finney MD Status:AD M IN Y Race: C Location: [place] [address] Anesthesia Postop Eval I Sum Postop Eval Completion status Anesthesia document: Postop Eval 1 completed: Yes Anesthesia Postop Eval I Summary Anesthesia Postop Eval I Summary: Anesthesia Postop Eval I: Assessment Summary Airway patent Yes 10/12/24 19:08 Spontaneous unlabored Yes 10/12/24 19:08 respirations Mental status Awake 10/12/24 19:08 nausea No 10/12/24 19:08 Vomiting No 10/12/24 19:08 Anesthesia Postop Eval I: Fluid Summary Crystalloid volume administer 10 10/12/24 19:08 (ml) Colloids volume administered ( ml) Blood Product volume administered (ml) Total IV fluid infused 10 10/12/24 19:08 Anesthesia Postop Eval I: Summary Notes Anesthesia Complication No 10/12/24 19:08 Anesthesia Complication Comment: Post-operative progress note Anesthesia: Postop Eval II Evaluation Mental status: Awake Pain Level: 0 nausea: No Vomiting: No 10/12/241910 <Electronically signed by Lance Oconnor MD > Date _ Lance Lee Signature: Date CC: ~ Signed [facility] Work Phone: 1(323) 484-739303-14-2025 Consult note Author Lance Oconnor [facility] Note Date/Time October 12, 2024 7:[address] [facility] Medical Records Department [address] [address] Anesthesia Postop Eval I 10/12/241906 MR#: [id number] Acct: [id number] Name: JUAN DAVID HERNÁNDEZ Rep #:[id number] : 1940 84 From: Lance Oconnor MD PCP: Dr. Jose Enrique Finney MD Status:AD M IN Y Race: C Location: [place] [address] Anesthesia: Postop Eval I Current Vital Signs Temperature: 97.5 F Pulse Rate: 60 Blood Pressure: 117/63 Respiratory Rate: 16 Pulse Ox: 99 Assessment Airway patent: Yes Spontaneous unlabored respirations: Yes Mental status: Awake nausea: No Vomiting: No Anesthesia Complication: No Fluid Hydration Crystalloid volume administer (ml): 10 Total IV fluid infused: 10 Progress Note Anesthesia document: Postop Eval 1 completed: Yes 10/12/241907 <Electronically signed by Lance Oconnor MD > Date _ Lance Lee Signature: Date CC: ~ Signed [facility] Work Phone: [phone]) 161-468103-14-2025 Consult note Author Luiz Bronw [facility] Note Date/Time October 12, 2024 5:[address] [facility] Medical Records Department [address] [place] [address] Pre-Anesthesia Evaluation 10/12/24 1741 MR#: [id number] Acct: [id number] Name: JUAN DAVID HERNÁNDEZ Rep #:[id number] : 1940 84 From: Luiz Brown PCP: Dr. Jose Enrique Finney MD Status:AD M IN Y Race: C Location: [place] [address] ASA Classification* ASA Classification ASA Classification: 3 and E Assessment & Plan Anesthesia* Anesthesia Assessment Anesthesia Assessment: Discussed sedation and/or anesthesia options, risks, benefits, and alternatives with patient/parents/legal guardian/POA. Questions invited. The patient/parents/legal guardian/POA seems to understand and agrees to proceedwith anesthesia plan. Reviewed the physical assessment, medical history, allergy history and patient home medications list prior to surgery/procedure/anesthetic and documented any changes. Performed airway and anesthesia risk assessments. Anesthesia Type Anesthesia Type: MAC History Source History Obtained from:: Patient and Chart Anesthesia Focused Assessment* Temperature: 97.7 F Pulse Rate: 60 Blood Pressure: 114/67 Respiratory Rate: 16 Pulse Ox: 98 Airway Assessment Mouth opens: >3 cm Mallampati Score: I Teeth Condition: Dentures and Full Neck Range of motion (ROM): Full ROM Focused Labs Anesthesia Preop lab: CBC WBC 9.3 K/mm3 (4.4-11.0) 10/12/24 03:06 10/12/24 RBC 2.81 M/mm3 (4.6-6.2) L 10/12/24 03:06 10/12/24 Hgb 8.9 g/dL (13.0-16.5) L 10/12/24 03:06 10/12/24 Hct 26.2 % (40-54) L 10/12/24 03:06 10/12/24 Plt Count 162 K/mm3 (150-450) 10/12/24 03:06 10/12/24 CHEMISTRY Potassium 3.3 mmol/L (3.3-5.1) 10/12/24 03:06 10/12/24 Sodium 137 mmol/L (133-145) 10/12/24 03:06 10/12/24 Magnesium 2.5 mg/dL (1.5-2.2) H 10/11/24 21:09 10/11/24 Phosphorus 2.9 mg/dL (2.7-4.5) 10/12/24 03:06 10/12/24 BUN 82 mg/dL (4-19) H 10/12/24 03:06 10/12/24 Creatinine 2.04 mg/dL (0.70-1.20) H 10/12/24 03:06 Glucose 206 mg/dL (70-99) H 10/12/24 03:06 10/12/24 POC Glucose 174 mg/dL (74-106) H 10/12/24 12:12 10/12/24 TSH 1.950 uIU/mL (0.300-4.200) 10/12/24 03:06 09/29 11/23 COAG PT 24.5 SECONDS (11.7-14.9) H 10/11/24 21:09 09/29 10/23 Pre-Assessment Diagnosis/Proposed Procedure Planned Operative Procedure(s): EGD Anesthesia History 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 gi bleed 01/06/22 11:10 Any Problems With Anesthesia No 10/12/24 14:53 Cholinesterase deficiency No 10/12/24 14:53 You/Your Family Experience No 10/12/24 14:53 fever (hyperthermia) with Relationship Recent Exposure to Contagious No 10/12/24 14:53 Disease Does patient have nerve No 10/12/24 14:53 stimulator Patient instructed to have device shut off --Does patient have Pacemaker Yes 10/12/24 14:53 or ICD? When Was Last Pacemaker Check 09/25/24 10/12/24 14:53 QUESTION #4 FULL TEXT: You/Your Family Experience fever (hyperthermia) with Anesthesia Last Oral Intake Last Oral intake: Last Oral Intake NPO since 00:00 10/12/24 14:53 Meds taken in AM with sips of No 10/12/24 14:53 water? 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 Female HX of Motion Sickness HX of N/V After Surgery Non-Smoker Duration of Surgery greater than 60 minutes Number of Risk Factors PONV Score Height & Weight Height & Weight: Anesthesia: Height & Weight Height 5 ft 7 in 10/12/24 14:53 Weight: 65.9 kg 10/12/24 14:53 Body Mass Index (BMI) 22.7 10/12/24 14:53 Respiratory Assessment Respiratory Assessment - dye boarding machine operator: Respiratory Tract Infection Hx - dye boarding machine operator Hx Respiratory Tract Infection No 10/12/24 14:53 STOP Sleep Apnea STOP Sleep Apnea - dye boarding machine operator: STOP Sleep Apnea - dye boarding machine operator Hx Hypertension No 10/12/24 00:00 Hx Sleep Apnea No 10/12/24 00:00 CPAP BIPAP No 10/08/24 00:00 Do you snore loudly (louder No 10/12/24 00:00 than talking or can be heard Do you often feel tired/ No 10/12/24 00:00 fatigued/ sleepy during daytime? Has anyone observed you stop No 10/12/24 00:00 breathing during sleep? STOP Results Negative 10/12/24 00:00 QUESTION #5 FULL TEXT : Do you snore loudly (louder than talking or can be heard through closed doors)? 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 Specify any problems Hx of Preganancy in last 3 N/A 10/12/24 00:00 Months Nurse Filling Out Transfusion MBAUTBob 10/12/24 00:00 & Questions: Date: 10/12/24 10/12/24 00:00 Time: 00:17 10/12/24 00:00 Patient unable to answer at this time (ie. confused, unrespo /Reproduction History /Reproductive History - dye boarding machine operator: /Reproductive Hx- dye boarding machine operator Hx Now Gestational Age (in weeks): EDC: Hx Hx Para Hx Section SAB Active Medications Active Medications: Current Medications Generic Name Dose Route Start Last Admin Trade Name Freq PRN Reason Stop Dose Admin Glucagon 1 mg 10/11/24 23:53 Glucagon 1 Mg/Ml Syringe IM X1 PRN HYPOGLYCEMIA Protocol Pantoprazole Sodium 80 mg/ 100 mls @ 10 mls/hr 10/12/24 08:00 10/12/24 08:28 Sodium Chloride CONT INF 10 mls/hr Q10H JUDI Administration Dextrose 250 mls @ 0 mls/hr 10/11/24 23:53 Dextrose 10%-Water IV .Q0M PRN HYPOGLYCEMIA Protocol As Directed Sodium Chloride 100 mls @ 15 mls/hr 10/12/24 00:14 IV .Q6H40M PRN Saline Flush Sodium Chloride 100 mls @ 15 mls/hr 10/12/24 00:14 IV .Q6H40M PRN Additional IVPB Infusion Insulin Human Lispro 0 unit 10/12/24 00:00 10/12/24 12:38 Insulin Lispro 100 Unit/Ml Insuln.Pen SC Not Given Q6 JUDI Protocol Morphine Sulfate 2 mg 10/11/24 23:53 Morphine 2 Mg/Ml Syringe IV Q4H PRN PRN Pain Score 6-10 Ondansetron HCl 4 mg 10/11/24 23:53 Ondansetron 4 Mg/2 Ml Vial IV Q6H PRN PRN NAUSEA/VOMITING Sodium Chloride 10 - 40 ml 10/12/24 00:14 0.9% Saline Lock 10 Ml Syringe IV UD PRN SALINE FLUSH PFSH Medical History (Updated 10/12/24 @ 00:[address] Germán Landeros, DO) Mixed hyperlipidemia Paroxysmal atrial fibrillation Hypokalemia due to loss of potassium Acute blood loss anemia Upper GI bleed Muscle cramps NSVT (nonsustained ventricular tachycardia) Nonrheumatic mitral valve insufficiency Atherosclerosis of [place] coronary artery of [place] heart without angina pectoris Ischemic cardiomyopathy Essential (primary) hypertension Type 2 diabetes mellitus without complications Home Medications ?Medication ?Instructions ?Recorded ?Last Taken ?Type multivitamin with folic acid 400 1 tab PO DAILY supple ment 04/11/17 Unknown History mcg tablet insulin lispro 100 unit/mL 10 unit subcut TID blood miranda gar 03/17/18 11/12/18 07:00 History subcutaneous cartridge insulin detemir U-100 100 unit/mL 32 unit subcut QHS d iabetes 11/10/20 Unknown History (3 mL) subcutaneous pen tamsulosin 0.4 mg capsule 0.4 mg PO DAILY prostate 07/21 Unknown History zolpidem 5 mg tablet (Ambien) 5 mg PO QHS PRN insomnia 11/10/20 Unknown History apixaban 5 mg tablet 5 mg PO BID Blood thinner #1 80 tabs 02/24/21 Unknown Rx carvedilol 12.5 mg tablet 12.5 mg PO BID Heart rate/bl ood 02/24/21 Unknown Rx pressure #180 tabs nitroglycerin 0.4 mg sublingual 0.4 mg sublingual Q5-1 5M PRN chest 03/22/23 Unknown Rx tablet (Nitrostat) pain #25 tabs isosorbide mononitrate 30 mg 30 mg PO DAILY heart #90 tabs 06/18/24 Unknown Rx tablet,extended release 24 hr rosuvastatin 40 mg tablet 40 mg PO DAILY cholesterol # 90 tabs 06/18/24 Unknown Rx furosemide 40 mg tablet 40 mg PO .COMPLEX diuretic # 180 08/03/24 Unknown Rx tabs potassium chloride 20 mEq 40 meq (2 x 20 mEq) PO BID # 120 10/08/24 Unknown Rx tablet,extended release(part/cryst) tabs blood sugar diagnostic (True 10/11/24 Unknown History Metrix Glucose Test Strip) Allergy/AdvReac Type Severity Reaction Status Date / Time atorvastatin Allergy Severe myalgias, Verified 10/11/24 20:54 tongue swelling captopril Allergy Severe tongue Verified 10/11/24 20:54 swelling rivaroxaban (From Xarelto) Allergy Severe tongue Verified 10/11/24 20:54 swelling glimepiride Allergy Intermediate mouth Verified 10/11/24 20:54 blisters levofloxacin (From Levaquin) Allergy Intermediate leg pain Verified 10/11/24 20:54 dapagliflozin (From Farxiga) Allergy Unknown Rash Verified 10/11/24 20:54 azithromycin (From Zithromax) AdvReac Severe blisters Verified 10/11/24 20:54 metolazone AdvReac Severe Rash/Itchin Verified 10/11/24 20:54 g pravastatin AdvReac Intermediate itching Verified 10/11/24 20:54 Surgical History History of right-sided carotid endarterectomy History of electrophysiologic study History of left heart catheterization Status post mitral valve annuloplasty Hx of CABG (~11/14/09) Social History household members: none Smoking Status: Former smoker how long ago did patient quit smokin years ago alcohol intake: never substance use type: does not use caffeine: No what type of physical activity do you participate in: walking frequency: daily duration: 15-30 minutes/day seatbelt use: always do you feel safe at home: Yes Review of Systems (Anesthesia) ROS Narrative System reviewed and no additional complaints, except as documented. 10/12/24 0162 <Electronically signed by Luiz Brown > Date _ Luiz Lee Signature: Date CC: ~ Signed [facility] Work Phone: [phone] Consult note [facility] Medical Records Department [address] [place] [address] Anesthesia Postop Eval I 10/12/24 1907 MR#: [id number] Acct: [id number] Name: JUAN DAVID HERNÁNDEZ Rep #:[id number] : 1940 84 From: Lance Oconnor MD PCP: Dr. Jose Enrique Finney MD Status:AD M IN Y Race: C Location: [place] [address] Anesthesia: Postop Eval I Current Vital Signs Temperature: 97.5 F Pulse Rate: 60 Blood Pressure: 117/63 Respiratory Rate: 16 Pulse Ox: 99 Assessment Airway patent: Yes Spontaneous unlabored respirations: Yes Mental status: Awake nausea: No Vomiting: No Anesthesia Complication: No Fluid Hydration Crystalloid volume administer (ml): 10 Total IV fluid infused: 10 Progress Note Anesthesia document: Postop Eval 1 completed: Yes 10/12/24 1908 > Date _ Lance Lee Signature: Date CC: ~ Signed [facility]03-14-2025 Procedure note [facility] Medical Records Department [address] [place] [address] EGD Report MR#: [id number] Acct: [id number] Name: JUAN DAVID HERNÁNDEZ Rep #:[id number] : 1940 84 From: Checo Chavez DO PCP: Dr. Jose Enrique Finney MD Status:AD M IN Patient Name: Juan David Hernández Procedure Date: 10/12/2024 1:00 PM Date of : 1940 Age: 84 Procedure: Upper GI endoscopy Indications: Acute post hemorrhagic anemia, Melena Providers: Checo Chavez DO Medicines: Monitored Anesthesia Care Patient Profile: This is an 84 year old male. Refer to note in patient chart for documentation of history and physical. Patient has symptoms of acute epigastric abdominal pain. Complications: No immediate complications. Procedure: Pre-Anesthesia Assessment: - Prior to the procedure, a History and Physical was performed, and patient medications and allergies were reviewed. The patient is competent. The risks and benefits of the procedure and the sedation options and risks were discussed with the patient. All questions were answered and informed consent was obtained. Patient identification and proposed procedure were verified by the physician in the pre-procedure area. Mental Status Examination: normal. Respiratory Examination: clear to auscultation. CV Examination: normal. Prophylactic Antibiotics: The patient does not require prophylactic antibiotics. Prior Anticoagulants: The patient has taken Eliquis (apixaban), last dose was 2 days prior to procedure. ASA Grade Assessment: IV - A patient with severe systemic disease that is a constant threat to life. After reviewing the risks and benefits, the patient was deemed in satisfactory condition to undergo the procedure. The anesthesia plan was to use monitored anesthesia care (MAC). Immediately prior to administration of medications, the patient was re-assessed for adequacy to receive sedatives. The heart rate, respiratory rate, oxygen saturations, blood pressure, adequacy of pulmonary ventilation, and response to care were monitored throughout the procedure. The physical status of the patient was re-assessed after the procedure. After obtaining informed consent, the endoscope was passed under direct vision. Throughout the procedure, the patient's blood pressure, pulse, and oxygen saturations were monitored continuously. The gastroscope was introduced through the mouth, and advanced to the second part of duodenum. The upper GI endoscopy was accomplished without difficulty. The patient tolerated the procedure well. Scope In: 6:12:14 PM Scope Out: 6:17:17 PM Total Procedure Duration Time 0 hours 5 minutes 3 seconds Findings: The examined esophagus was normal. Two non-bleeding cratered gastric ulcers with a visible vessel were found at the pylorus. The largest lesion was 6 mm in largest dimension. Coagulation for hemostasis using heater probe was successful. Estimated blood loss was minimal. No gross lesions were noted in the first portion of the duodenum. Impression: - Normal esophagus. - Non-bleeding gastric ulcers with a visible vessel. Treated with a heater probe. - No gross lesions in the first portion of the duodenum. - No specimens collected. Recommendation: - Return patient to [facility] for ongoing care. - Full liquid diet. - Continue present medications. Procedure Code(s): --- Professional --- 28561, Esophagogastroduodenoscopy, flexible, transoral; with control of bleeding, any method CPT copyright 2021 [employer]. All rights reserved. The codes documented in this report are preliminary and upon broadcast operations director review may be revised to meet current compliance requirements. Checo Chavez DO 10/12/2024 2:48:35 PM This report has been signed electronically. Number of Addenda: 0 Note Initiated On: 10/12/2024 1:00 PM 10/12/24 1829 Date _ Checo Read Signature: Date (if indicated) CC: Dr. Jose Enrique Finney MD; Checo DO Kathy ~ Date Dictated: 10/12/24 1300 Date Transcribed: Guest Services Director: RF Signed [facility]03-14-2025 Consult note [facility] Medical Records Department [address] [place] [address] Pre-Anesthesia Evaluation 10/12/24 1741 MR#: [id number] Acct: [id number] Name: JUAN DAVID HERNÁNDEZ Rep #:[id number] : 1940 84 From: Luiz Brown PCP: Dr. Jose Enrique Finney MD Status:AD M IN Y Race: C Location: [place] [address] ASA Classification* ASA Classification ASA Classification: 3 and E Assessment & Plan Anesthesia* Anesthesia Assessment Anesthesia Assessment: Discussed sedation and/or anesthesia options, risks, benefits, and alternatives with patient/parents/legal guardian/POA. Questions invited. The patient/parents/legal guardian/POA seems to understand and agrees to proceedwith anesthesia plan. Reviewed the physical assessment, medical history, allergy history and patient home medications list prior to surgery/procedure/anesthetic and documented any changes. Performed airway and anesthesia risk assessments. Anesthesia Type Anesthesia Type: MAC History Source History Obtained from:: Patient and Chart Anesthesia Focused Assessment* Temperature: 97.7 F Pulse Rate: 60 Blood Pressure: 114/67 Respiratory Rate: 16 Pulse Ox: 98 Airway Assessment Mouth opens: >3 cm Mallampati Score: I Teeth Condition: Dentures and Full Neck Range of motion (ROM): Full ROM Focused Labs Anesthesia Preop lab: CBC WBC 9.3 K/mm3 (4.4-11.0) 10/12/24 03:06 10/12/24 RBC 2.81 M/mm3 (4.6-6.2) L 03/14/25 03:06 10/12/24 Hgb 8.9 g/dL (13.0-16.5) L 10/12/24 03:06 10/12/24 Hct 26.2 % (40-54) L 10/12/24 03:06 10/12/24 Plt Count 162 K/mm3 (150-450) 10/12/24 03:06 10/12/24 CHEMISTRY Potassium 3.3 mmol/L (3.3-5.1) 10/12/24 03:06 10/12/24 Sodium 137 mmol/L (133-145) 10/12/24 03:06 10/12/24 Magnesium 2.5 mg/dL (1.5-2.2) H 10/11/24 21:09 10/11/24 Phosphorus 2.9 mg/dL (2.7-4.5) 10/12/24 03:06 10/12/24 BUN 82 mg/dL (4-19) H 10/12/24 03:06 10/12/24 Creatinine 2.04 mg/dL (0.70-1.20) H 10/12/24 03:06 Glucose 206 mg/dL (70-99) H 10/12/24 03:06 10/12/24 POC Glucose 174 mg/dL (74-106) H 10/12/24 12:12 10/12/24 TSH 1.950 uIU/mL (0.300-4.200) 10/12/24 03:06 09/29 11/23 COAG PT 24.5 SECONDS (11.7-14.9) H 10/11/24 21:09 09/29 10/23 Pre-Assessment Diagnosis/Proposed Procedure Planned Operative Procedure(s): EGD Anesthesia History 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 gi bleed 01/06/22 11:10 Any Problems With Anesthesia No 10/12/24 14:53 Cholinesterase deficiency No 10/12/24 14:53 You/Your Family Experience No 10/12/24 14:53 fever (hyperthermia) with Relationship Recent Exposure to Contagious No 10/12/24 14:53 Disease Does patient have nerve No 10/12/24 14:53 stimulator Patient instructed to have device shut off --Does patient have Pacemaker Yes 10/12/24 14:53 or ICD? When Was Last Pacemaker Check 09/25/24 10/12/24 14:53 QUESTION #4 FULL TEXT: You/Your Family Experience fever (hyperthermia) with Anesthesia Last Oral Intake Last Oral intake: Last Oral Intake NPO since 00:00 10/12/24 14:53 Meds taken in AM with sips of No 10/12/24 14:53 water? 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 Female HX of Motion Sickness HX of N/V After Surgery Non-Smoker Duration of Surgery greater than 60 minutes Number of Risk Factors PONV Score Height & Weight Height & Weight: Anesthesia: Height & Weight Height 5 ft 7 in 10/12/24 14:53 Weight: 65.9 kg 10/12/24 14:53 Body Mass Index (BMI) 22.7 10/12/24 14:53 Respiratory Assessment Respiratory Assessment - dye boarding machine operator: Respiratory Tract Infection Hx - dye boarding machine operator Hx Respiratory Tract Infection No 10/12/24 14:53 STOP Sleep Apnea STOP Sleep Apnea - dye boarding machine operator: STOP Sleep Apnea - dye boarding machine operator Hx Hypertension No 10/12/24 00:00 Hx Sleep Apnea No 10/12/24 00:00 CPAP BIPAP No 10/08/24 00:00 Do you snore loudly (louder No 10/12/24 00:00 than talking or can be heard Do you often feel tired/ No 10/12/24 00:00 fatigued/ sleepy during daytime? Has anyone observed you stop No 10/12/24 00:00 breathing during sleep? STOP Results Negative 10/12/24 00:00 QUESTION #5 FULL TEXT : Do you snore loudly (louder than talking or can be heard through closeddoors)? 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 Specify any problems Hx of Preganancy in last 3 N/A 10/12/24 00:00 Months Nurse Filling Out Transfusion MBAUTZ 10/12/24 00:00 & Questions: Date: 10/12/24 10/12/24 00:00 Time: 00:17 10/12/24 00:00 Patient unable to answer at this time (ie. confused, unrespo /Reproduction History /Reproductive History - dye boarding machine operator: /Reproductive Hx- dye boarding machine operator Hx Now Gestational Age (in weeks): EDC: Hx Hx Para Hx Section SAB Active Medications Active Medications: Current Medications Generic Name Dose Route Start Last Admin Trade Name Freq PRN Reason Stop Dose Admin Glucagon 1 mg 10/11/24 23:53 Glucagon 1 Mg/Ml Syringe IM X1 PRN HYPOGLYCEMIA Protocol Pantoprazole Sodium 80 mg/ 100 mls @ 10 mls/hr 10/12/24 08:00 10/12/24 08:28 Sodium Chloride CONT INF 10 mls/hr Q10H JUDI Administration Dextrose 250 mls @ 0 mls/hr 10/11/24 23:53 Dextrose 10%-Water IV .Q0M PRN HYPOGLYCEMIA Protocol As Directed Sodium Chloride 100 mls @ 15 mls/hr 10/12/24 00:14 IV .Q6H40M PRN Saline Flush Sodium Chloride 100 mls @ 15 mls/hr 10/12/24 00:14 IV .Q6H40M PRN Additional IVPB Infusion Insulin Human Lispro 0 unit 10/12/24 00:00 10/12/24 12:38 Insulin Lispro 100 Unit/Ml Insuln.Pen SC Not Given Q6 JUDI Protocol Morphine Sulfate 2 mg 10/11/24 23:53 Morphine 2 Mg/Ml Syringe IV Q4H PRN PRN Pain Score 6-10 Ondansetron HCl 4 mg 10/11/24 23:53 Ondansetron 4 Mg/2 Ml Vial IV Q6H PRN PRN NAUSEA/VOMITING Sodium Chloride 10 - 40 ml 10/12/24 00:14 0.9% Saline Lock 10 Ml Syringe IV UD PRN SALINE FLUSH PFSH Medical History (Updated 10/12/24 @ 00:[address] Germán Landeros, DO) Mixed hyperlipidemia Paroxysmal atrial fibrillation Hypokalemia due to loss of potassium Acute blood loss anemia Upper GI bleed Muscle cramps NSVT (nonsustained ventricular tachycardia) Nonrheumatic mitral valve insufficiency Atherosclerosis of [place] coronary artery of [place] heart without angina pectoris Ischemic cardiomyopathy Essential (primary) hypertension Type 2 diabetes mellitus without complications Home Medications ?Medication ?Instructions ?Recorded ?Last Taken ?Type multivitamin with folic acid 400 1 tab PO DAILY supple ment 04/11/17 Unknown History mcg tablet insulin lispro 100 unit/mL 10 unit subcut TID blood miranda gar 03/17/18 11/12/18 07:00 History subcutaneous cartridge insulin detemir U-100 100 unit/mL 32 unit subcut QHS d iabetes 11/10/20 Unknown History (3 mL) subcutaneous pen tamsulosin 0.4 mg capsule 0.4 mg PO DAILY prostate 07/21 Unknown History zolpidem 5 mg tablet (Ambien) 5 mg PO QHS PRN insomnia 11/10/20 Unknown History apixaban 5 mg tablet 5 mg PO BID Blood thinner #1 80 tabs 02/24/21 Unknown Rx carvedilol 12.5 mg tablet 12.5 mg PO BID Heart rate/bl ood 02/24/21 Unknown Rx pressure #180 tabs nitroglycerin 0.4 mg sublingual 0.4 mg sublingual Q5-1 5M PRN chest 03/22/23 Unknown Rx tablet (Nitrostat) pain #25 tabs isosorbide mononitrate 30 mg 30 mg PO DAILY heart #90 tabs 06/18/24 Unknown Rx tablet,extended release 24 hr rosuvastatin 40 mg tablet 40 mg PO DAILY cholesterol # 90 tabs 06/18/24 Unknown Rx furosemide 40 mg tablet 40 mg PO .COMPLEX diuretic # 180 08/03/24 Unknown Rx tabs potassium chloride 20 mEq 40 meq (2 x 20 mEq) PO BID # 120 10/08/24 Unknown Rx tablet,extended release(part/cryst) tabs blood sugar diagnostic (True 10/11/24 Unknown History Metrix Glucose Test Strip) Allergy/AdvReac Type Severity Reaction Status Date / Time atorvastatin Allergy Severe myalgias, Verified 10/11/24 20:54 tongue swelling captopril Allergy Severe tongue Verified 10/11/24 20:54 swelling rivaroxaban (From Xarelto) Allergy Severe tongue Verified 10/11/24 20:54 swelling glimepiride Allergy Intermediate mouth Verified 10/11/24 20:54 blisters levofloxacin (From Levaquin) Allergy Intermediate leg pain Verified 10/11/24 20:54 dapagliflozin (From Farxiga) Allergy Unknown Rash Verified 10/11/24 20:54 azithromycin (From Zithromax) AdvReac Severe blisters Verified 10/11/24 20:54 metolazone AdvReac Severe Rash/Itchin Verified 10/11/24 20:54 g pravastatin AdvReac Intermediate itching Verified 10/11/24 20:54 Surgical History History of right-sided carotid endarterectomy History of electrophysiologic study History of left heart catheterization Status post mitral valve annuloplasty Hx of CABG (~11/14/09) Social History household members: none Smoking Status: Former smoker how long ago did patient quit smokin years ago alcohol intake: never substance use type: does not use caffeine: No what type of physical activity do you participate in: walking frequency: daily duration: 15-30 minutes/day seatbelt use: always do you feel safe at home: Yes Review of Systems (Anesthesia) ROS Narrative System reviewed and no additional complaints, except as documented. 10/12/24 1745 > Date _ Luiz Lee Signature: Date CC: ~ Signed [facility]03-14-2025 Progress note Author Checo Friend [facility] Note Date/Time October 12, 2024 3:1 3pm [facility] Medical Records Department [address] [address] Progress Note 10/12/24 1512 MR#: [id number] Acct: [id number] Name: JUAN DAVID HERNÁNDEZ Rep #:[id number] : 1940 84 From: Checo Chavez DO PCP: Dr. Jose Enrique Finney MD Status:AD M IN Location: [place] [address] Progress Note Patient presents to the ED lightheaded symptoms black stool x 3 today no abdominal pain. Chronic Eliquis history of paroxysmal A-fib. He does have history of CABG AICD. No cough. No syncopal episode. Saw his PCP today, bloodwork performed outpatient. Last Eliquis around 3:30 PM. No history of upper orlower endoscopies in the past. He was discharged 3 days ago for acute kidney injury and hypokalemia. He has been n.p.o. for upper endoscopy today. Physical Exam Narrative General: Alert, Oriented x3, Cooperative, No apparent distress HEENT: Atraumatic, PERRLA, EOMI, Normocephalic Oral: Moist Mucosa Neck: Supple, No JVD Lungs: Diminished, Normal air movement, No rhonchi, No wheeze, No rales Cardiovascular: Regular rate, Regular Rhythm, Normal S1, Normal S2, No murmurs Abdomen: Soft, Non Tender, Non-Distended, No Hepato-splenomegaly Extremities: No edema, Capillary Refill Less than 3 Seconds Skin: No rashes, No breakdown Musculoskeletal: No Tenderness to Palpation of Joints or Extremities Neurological: No focal neurological deficits, Motor Exam 5/5 strength throughout, Sensory exam intact to light touch and pain Psych/Mental Status: Normal Affect, Appropriate Assessment & Plan Assessment/Plan (1) Melanotic stools: (2) LISA (acute kidney injury): PLAN: Plan Acute blood loss anemia secondary to a GI bleed worsened by Eliquis use ? Continue with PPI ? Patient will undergo an upper endoscopy today to evaluate his upper GI tract for acute blood loss anemia. He was explained alternatives, risk and benefits including withstanding bleeding, fracture, subsequent perforation, need emergentand . He will have an ASA of 3. Visit Charges Inpatient E&M: 07214 Subs Hosp L2 10/12/24 1513 <Electronically signed by Checo Chavez DO> Checo Chavez DO Cosigner Signature (if applicable): CC: ~ Signed [facility] Work Phone: 1(876) 608-608803-14-2025 Progress note [facility] Medical Records Department [address] [place] [address] Progress Note 10/12/24 151 MR#: [id number] Acct: [id number] Name: JUAN DAVID HERNÁNDEZ Rep #:[id number] : 1940 84 From: Checo Chavez DO PCP: Dr. Jose Enrique Finney MD Status:AD M IN Location: [place] [address] Progress Note Patient presents to the ED lightheaded symptoms black stool x 3 today no abdominal pain. Chronic Eliquis history of paroxysmal A-fib. He does have history of CABG AICD. No cough. No syncopal episode.Saw his PCP today, bloodwork performed outpatient. Last Eliquis around 3:30 PM. No history of upperorlower endoscopies in the past. He was discharged 3 days ago for acute kidney injury and hypokalemia. He has been n.p.o. for upper endoscopy today. Physical Exam Narrative General: Alert, Oriented x3, Cooperative, No apparent distress HEENT: Atraumatic, PERRLA, EOMI, Normocephalic Oral: Moist Mucosa Neck: Supple, No JVD Lungs: Diminished, Normal air movement, No rhonchi, No wheeze, No rales Cardiovascular: Regular rate, Regular Rhythm, Normal S1, Normal S2, No murmurs Abdomen: Soft, Non Tender, Non-Distended, No Hepato-splenomegaly Extremities: No edema, Capillary Refill Less than 3 Seconds Skin: No rashes, No breakdown Musculoskeletal: No Tenderness to Palpation of Joints or Extremities Neurological: No focal neurological deficits, Motor Exam 5/5 strength throughout, Sensory exam intact to light touch and pain Psych/Mental Status: Normal Affect, Appropriate Assessment & Plan Assessment/Plan (1) Melanotic stools: (2) LISA (acute kidney injury): PLAN: Plan Acute blood loss anemia secondary to a GI bleed worsened by Eliquis use ? Continue with PPI ? Patient will undergo an upper endoscopy today to evaluate his upper GI tract for acute blood lossanemia. He was explained alternatives, risk and benefits including withstanding bleeding, fracture,subsequent perforation, need emergentand . He will have an ASA of 3. Visit Charges Inpatient E&M: 59496 Subs Hosp L2 10/12/24 1511 Checo Friend DO Cosigner Signature (if applicable): CC: ~ Signed [facility]03-14-2025 Progress note Author García Cabezas [facility] Note Date/Time October 12, 2024 9:1 0am [facility] Medical Records Department [address] [place] [address] Progress Note - Hospitalist 10/12/24 09 MR#: [id number] Acct: [id number] Name: JUAN DAVID HERNÁNDEZ Rep #:[id number] : 1940 84 From: Garcaí sharpe MD PCP: Dr. Jose Enrique Finney MD Status:AD M IN Location: [place] [address] Subjective Subjective No issues overnight, hemoglobin is dropped to 8.9 today. Objective Data Objective Data Vital Signs: Vital Signs Temp Pulse Resp BP Pulse Ox O2 Del Method 97.3 F L 61 18 100/62 98 Room Air 10/12/24 03:07 10/12/24 03:07 10/12/24 03:07 10/12/24 03:07 10/12/24 03:07 10/12/24 03:07 Oxygen Delivery Method Room Air Weight: 145 lb 4.554 oz Body Mass Index (BMI) 22.7 Intake & Output: Intake and Output for Last 24 Hours 10/11/24 10/12/24 10/13/24 03:59 03:59 03:59 Intake Total 1035 / 1035 Balance 1035 / 1035 Lab / Micro Data 10/12/24 03:06 10/12/24 03:06 Labs: Laboratory Results - last 24 hr 10/11/24 21:09: WBC 12.2 H, RBC 3.46 L, Hgb 11.0 L, Hct 31.9 L, MCV 92.2, MCH 31.8, MCHC 34.5, RDW Std Deviation 45.6 H, RDW Coeff of Marley 13.5, Plt Count 199,MPV 10.3, Immature Gran % (Auto) 0.500, Neut % (Auto) 81.2 H, Lymph % (Auto) 11.3 L, Spencer % (Auto) 6.9, Eos % (Auto) 0.0, Baso % (Auto) 0.1, Absolute Neuts (auto) 9.9 H, Absolute Lymphs (auto) 1.38, Nucleated RBC % 0, PT 24.5 H, INR 2.2, APTT 36.8 H, Sodium 133, Potassium 4.1, Chloride 94 L, Carbon Dioxide 22.4,Anion Gap 17 H, BUN 84 H, Creatinine 2.22 H, Estim Creat Clear Calc 23.57 L, EstGFR (MDRD) Non-Af 29 L, BUN/Creatinine Ratio 37.7 H, Glucose 261 H, Calcium 9.4,Magnesium 2.5 H 10/12/24 00:07: POC Glucose 252 H 10/12/24 03:06: WBC 9.3, RBC 2.81 L, Hgb 8.9 L, Hct 26.2 L, MCV 93.2, MCH 31.7, MCHC 34.0, RDW Std Deviation 45.8 H, RDW Coeff of Marley 13.4, Plt Count 162, MPV 10.6, Immature Gran % (Auto) 0.300, Neut % (Auto) 74.4 H, Lymph % (Auto) 15.6 L,Spencer % (Auto) 9.3, Eos % (Auto) 0.1, Baso % (Auto) 0.3, Absolute Neuts (auto) 6.9, Absolute Lymphs (auto) 1.45, Nucleated RBC % 0, Sodium 137, Potassium 3.3, Chloride 102, Carbon Dioxide 22.8, Anion Gap 12, BUN 82 H, Creatinine 2.04 H, Estim Creat Clear Calc 25.57 L, Est GFR (MDRD) Non-Af 32 L, BUN/Creatinine Ratio 40.0 H, Glucose 206 H, Hemoglobin A1c 9.6, Calcium 8.4, Phosphorus 2.9, Total Bilirubin 0.69, AST 31, ALT 34, Alkaline Phosphatase 76, Total Protein 5.4 L, Albumin 3.2 L, Globulin 2.2, Albumin/Globulin Ratio 1.5, TSH 1.950 10/12/24 06:06: POC Glucose 151 H Micro: Microbiology 10/11/24 21:35 Stool Stool Occult Blood (MADELEINE) - Final Physical Exam Narrative General: Alert, Oriented x3, Cooperative, No apparent distress HEENT: Atraumatic, PERRLA, EOMI, Normocephalic Oral: Moist Mucosa Neck: Supple, No JVD Lungs: Diminished, Normal air movement, No rhonchi, No wheeze, No rales Cardiovascular: Regular rate, Regular Rhythm, Normal S1, Normal S2, No murmurs Abdomen: Soft, Non Tender, Non-Distended, No Hepato-splenomegaly Extremities: No edema, Capillary Refill Less than 3 Seconds Skin: No rashes, No breakdown Musculoskeletal: No Tenderness to Palpation of Joints or Extremities Neurological: No focal neurological deficits, Motor Exam 5/5 strength throughout, Sensory exam intact to light touch and pain Psych/Mental Status: Normal Affect, Appropriate Assessment & Plan Assessment/Plan (1) Melanotic stools: (2) LISA (acute kidney injury): PLAN: Plan 1. Acute blood loss anemia secondary to a GI bleed worsened by Eliquis use/LISA ? Continue with PPI ? Make n.p.o. ? Will consult gastroenterology for EGD and possible colonoscopy ? Renal functions improving with fluid, transfusion threshold is less than 8 given his coronary artery disease 2. Essential HTN/HLD/CAD status post CABG/paroxysmal A-fib/chronic systolic CHF ? Will hold blood pressure medications ? Will continue to monitor make adjustments as necessary ? Continue to hold Eliquis given his GI bleeding ? Echo in 2023 with an EF of 20% 3. DM2 ? Accu-Cheks ACHS ? Insulin coverage ? Will monitor and make adjustments as necessary ? A1c of 9.6 4. BPH ? Can resume Flomax once able to take p.o. DVT: SCDs Charges/Coding Visit Charges Inpatient E&M: 34399 Subs Hosp L2 10/12/24 0910 <Electronically signed by García Cabezas MD> Cosigner Signature (if applicable): CC: ~ Signed [facility] Work Phone: [phone] Progress note [facility] Medical Records Department [address] [place] [address] Progress Note - Hospitalist 10/12/24 0900 MR#: [id number] Acct: [id number] Name: JUAN DAVID HERNÁNDEZ Rep #:[id number] : 1940 84 From: García sharpe MD PCP: Dr. Jose Enrique Finney MD Status:AD M IN Location: [place] [address] Subjective Subjective No issues overnight, hemoglobin is dropped to 8.9 today. Objective Data Objective Data Vital Signs: Vital Signs Temp Pulse Resp BP Pulse Ox O2 Del Method 97.3 F L 61 18 100/62 98 Room Air 10/12/24 03:07 10/12/24 03:07 10/12/24 03:07 10/12/24 03:07 10/12/24 03:07 10/12/24 03:07 Oxygen Delivery Method Room Air Weight: 145 lb 4.554 oz Body Mass Index (BMI) 22.7 Intake & Output: Intake and Output for Last 24 Hours 10/11/24 10/12/24 10/13/24 03:59 03:59 03:59 Intake Total 1035 / 1035 Balance 1035 / 1035 Lab / Micro Data 10/12/24 03:06 10/12/24 03:06 Labs: Laboratory Results - last 24 hr 10/11/24 21:09: WBC 12.2 H, RBC 3.46 L, Hgb 11.0 L, Hct 31.9 L, MCV 92.2, MCH 31.8, MCHC 34.5, RDW Std Deviation 45.6 H, RDW Coeff of Marley 13.5, Plt Count 199,MPV 10.3, Immature Gran % (Auto) 0.500, Neut % (Auto) 81.2 H, Lymph % (Auto) 11.3 L, Spencer % (Auto) 6.9, Eos % (Auto) 0.0, Baso % (Auto) 0.1, Absolute Neuts (auto) 9.9 H, Absolute Lymphs (auto) 1.38, Nucleated RBC % 0, PT 24.5 H, INR 2.2, APTT 36.8 H, Sodium 133, Potassium 4.1, Chloride 94 L, Carbon Dioxide 22.4,Anion Gap 17 H, BUN 84 H, Creatinine 2.22 H, Estim Creat Clear Calc 23.57 L, EstGFR (MDRD) Non-Af 29 L, BUN/Creatinine Ratio 37.7 H, Glucose 261 H, Calcium 9.4,Magnesium 2.5 H 10/12/24 00:07: POC Glucose 252 H 10/12/24 03:06: WBC 9.3, RBC 2.81 L, Hgb 8.9 L, Hct 26.2 L, MCV 93.2, MCH 31.7, MCHC 34.0, RDW Std Deviation 45.8 H, RDW Coeff of Marley 13.4, Plt Count 162, MPV 10.6, Immature Gran % (Auto) 0.300, Neut% (Auto) 74.4 H, Lymph % (Auto) 15.6 L,Spencer % (Auto) 9.3, Eos % (Auto) 0.1, Baso % (Auto) 0.3, Absolute Neuts (auto) 6.9, Absolute Lymphs (auto) 1.45, Nucleated RBC % 0, Sodium 137, Potassium 3.3, Chloride 102, Carbon Dioxide 22.8, Anion Gap 12, BUN 82 H, Creatinine 2.04 H, Estim Creat Clear Calc 25.57 L, Est GFR (MDRD) Non-Af 32 L, BUN/Creatinine Ratio 40.0 H, Glucose 206 H, Hemoglobin A1c 9.6, Calcium 8.4, Phosphorus 2.9, Total Bilirubin 0.69, AST 31, ALT 34, Alkaline Phosphatase 76, Total Protein 5.4 L, Albumin 3.2 L, Globulin 2.2, Albumin/Globulin Ratio 1.5, TSH 1.950 10/12/24 06:06: POC Glucose 151 H Micro: Microbiology 10/11/24 21:35 Stool Stool Occult Blood (MADELEINE) - Final Physical Exam Narrative General: Alert, Oriented x3, Cooperative, No apparent distress HEENT: Atraumatic, PERRLA, EOMI, Normocephalic Oral: Moist Mucosa Neck: Supple, No JVD Lungs: Diminished, Normal air movement, No rhonchi, No wheeze, No rales Cardiovascular: Regular rate, Regular Rhythm, Normal S1, Normal S2, No murmurs Abdomen: Soft, Non Tender, Non-Distended, No Hepato-splenomegaly Extremities: No edema, Capillary Refill Less than 3 Seconds Skin: No rashes, No breakdown Musculoskeletal: No Tenderness to Palpation of Joints or Extremities Neurological: No focal neurological deficits, Motor Exam 5/5 strength throughout, Sensory exam intact to light touch and pain Psych/Mental Status: Normal Affect, Appropriate Assessment & Plan Assessment/Plan (1) Melanotic stools: (2) LISA (acute kidney injury): PLAN: Plan 1. Acute blood loss anemia secondary to a GI bleed worsened by Eliquis use/LISA ? Continue with PPI ? Make n.p.o. ? Will consult gastroenterology for EGD and possible colonoscopy ? Renal functions improving with fluid, transfusion threshold is less than 8 given his coronary artery disease 2. Essential HTN/HLD/CAD status post CABG/paroxysmal A-fib/chronic systolic CHF ? Will hold blood pressure medications ? Will continue to monitor make adjustments as necessary ? Continue to hold Eliquis given his GI bleeding ? Echo in 2023 with an EF of 20% 3. DM2 ? Accu-Cheks ACHS ? Insulin coverage ? Will monitor and make adjustments as necessary ? A1c of 9.6 4. BPH ? Can resume Flomax once able to take p.o. DVT: SCDs Charges/Coding Visit Charges Inpatient E&M: 24095 Subs Hosp L2 10/12/24 0910 Cosigner Signature (if applicable): CC: ~ Signed [facility]03-14-2025 History and physical note Author Germán Lee [facility] Note Date/Time October 12, 2024 6:5 4am [facility] Medical Records Department [address] [place] [address] H&P Exam - Hospitalist 10/11/24 5349 MR#: [id number] Acct: [id number] Name: JUAN DAVID HERNÁNDEZ Rep #:[id number] : 1940 84 From: Germán Escalante DO PCP: Dr. Jose Enrique Finney MD Status:AD M IN Location: [facility] [id number] HPI - General General Date of Admission: 10/11/24 Date of Service: 10/11/24 Chief Complaint: Dizziness and Melena with Watery Black Stools. HPI Narrative JUAN DAVID HERÁNNDEZ, is a 84 M with a past medical history of essential hypertension; on carvedilol and furosemide, hyperlipidemia; on rosuvastatin, DM-2; of unknown control on insulin detemir 32U sq HS plus insulin lispro 10U TID, history of PAF; on apixaban, CAD; s/p CABG (2009), ischemic cardiomyopathy with LVEF ~20% (01/2024); s/p AICD-PPM on ISMO and prn SL NTG, history of NSVT; s/p EPstudy (2006), history of nonrheumatic mitral valve insufficiency; s/p 30 mm [place] mitral valve annuloplasty, history of carotid stenosis; s/p Right carotid endarterectomy with bovine patch angioplasty (2020) followed by Dr. Ly of vascular surgery, CKD; stage II, BPH; on tamsulosin, chronic insomnia;on prn zolpidem q. HS, history of depression with anxiety; currently not on treatment, OA, DNR-CCA; with no intubation CODE STATUS and recent admission herefrom October 07, 2024 to October 08, 2024 with chief complaint of fatigue and malaisewith patient subsequently diagnosed with adult [id number] complicated by LISA; in the setting of stage II CKD with hypokalemia of 2.9 mmol/L and mild hyponatremia of 131 mmol/L who presents to [facility] ER complaining of dizziness and melena with watery black stools. Mr. Hernández reports his symptoms began approximately 1 day prior to admission after he ate a jar of vinegar beets with subsequent black stools and intermittent dizziness. He then went to see his PCP earlier today and had bloodwork performed as an outpatient that revealed evidence of upper GI bleeding withhemoglobin dropping to 11.1 g/dL (down from 13.3 g/dL on October 08, 2024) in addition to BUN of 84 mg/dL with serum creatinine of 2.22 mg/dL (up from his baseline of 27 mg/dL and 1.81 mg/dL on October 08, 2024) with corresponding symptomatic hypotension so he was directed to come to the ER for further evaluation and treatment. He states he last took his Eliquis at 3:30 PM today. There was no report of fever, chills, sore throat, runny nose, chest pain, lowerextremity edema, shortness of breath, cough, dysuria, hematuria, back pain or headache. In the ER he was noted to have severe hypotension of 86/55 mmHg shortly after admission due to suspected UGIB with ABLA likely due to Adverse Drug Reaction to apixaban with elevated INR of 2.2 present on admission. He wasthen admitted to the PCU for ongoing care for a stay that is expected to extend beyond 2 midnights. [facility] Medical History (Updated 10/12/24 @ 00:[address] Germán Landeros, DO) Mixed hyperlipidemia Paroxysmal atrial fibrillation Hypokalemia due to loss of potassium Acute blood loss anemia Upper GI bleed Muscle cramps NSVT (nonsustained ventricular tachycardia) Nonrheumatic mitral valve insufficiency Atherosclerosis of [place] coronary artery of [place] heart without angina pectoris Ischemic cardiomyopathy Essential (primary) hypertension Type 2 diabetes mellitus without complications Home Medications ?Medication ?Instructions ?Recorded ?Last Taken ?Type multivitamin with folic acid 400 1 tab PO DAILY supple ment 04/11/17 Unknown History mcg tablet insulin lispro 100 unit/mL 10 unit subcut TID blood miranda gar 03/17/18 11/12/18 07:00 History subcutaneous cartridge insulin detemir U-100 100 unit/mL 32 unit subcut QHS d iabetes 11/10/20 Unknown History (3 mL) subcutaneous pen tamsulosin 0.4 mg capsule 0.4 mg PO DAILY prostate 07/21 Unknown History zolpidem 5 mg tablet (Ambien) 5 mg PO QHS PRN insomnia 11/10/20 Unknown History apixaban 5 mg tablet 5 mg PO BID Blood thinner #1 80 tabs 02/24/21 Unknown Rx carvedilol 12.5 mg tablet 12.5 mg PO BID Heart rate/bl ood 02/24/21 Unknown Rx pressure #180 tabs nitroglycerin 0.4 mg sublingual 0.4 mg sublingual Q5-1 5M PRN chest 03/22/23 Unknown Rx tablet (Nitrostat) pain #25 tabs isosorbide mononitrate 30 mg 30 mg PO DAILY heart #90 tabs 06/18/24 Unknown Rx tablet,extended release 24 hr rosuvastatin 40 mg tablet 40 mg PO DAILY cholesterol # 90 tabs 06/18/24 Unknown Rx furosemide 40 mg tablet 40 mg PO .COMPLEX diuretic # 180 08/03/24 Unknown Rx tabs potassium chloride 20 mEq 40 meq (2 x 20 mEq) PO BID # 120 10/08/24 Unknown Rx tablet,extended release(part/cryst) tabs blood sugar diagnostic (True 10/11/24 Unknown History Metrix Glucose Test Strip) Allergy/AdvReac Type Severity Reaction Status Date / Time atorvastatin Allergy Severe myalgias, Verified 10/11/24 20:54 tongue swelling captopril Allergy Severe tongue Verified 10/11/24 20:54 swelling rivaroxaban (From Xarelto) Allergy Severe tongue Verified 10/11/24 20:54 swelling glimepiride Allergy Intermediate mouth Verified 10/11/24 20:54 blisters levofloxacin (From Levaquin) Allergy Intermediate leg pain Verified 10/11/24 20:54 dapagliflozin (From Farxiga) Allergy Unknown Rash Verified 10/11/24 20:54 azithromycin (From Zithromax) AdvReac Severe blisters Verified 10/11/24 20:54 metolazone AdvReac Severe Rash/Itchin Verified 10/11/24 20:54 g pravastatin AdvReac Intermediate itching Verified 10/11/24 20:54 Surgical History History of right-sided carotid endarterectomy History of electrophysiologic study History of left heart catheterization Status post mitral valve annuloplasty Hx of CABG (~11/14/09) Social History household members: none Smoking Status: Former smoker how long ago did patient quit smokin years ago alcohol intake: never substance use type: does not use caffeine: No what type of physical activity do you participate in: walking frequency: daily duration: 15-30 minutes/day seatbelt use: always do you feel safe at home: Yes ROS ROS Narrative Review of Systems: Constitutional: Patient denies fever or chills. Eyes: Patient denies changes vision or discharge from eyes. ENT: Patient denies runny nose, sore throat or ear pain. Resp: Patient denies shortness of breath or cough. CV: Patient admits to lightheadedness with corresponding hypotension as per HPI but he denies chest pain, palpitations, heart racing or lower extremity edema. GI: Patient admits to watery melanotic stool as per HPI but he denies abdominal pain, nausea, vomiting or constipation. : Patient denies dysuria, hematuria or urinary frequency. MSK: Patient denies arthralgias or myalgias. Skin: Patient denies rash, abscess, wounds or jaundice. Psych: Patient denies symptoms of uncontrolled depression or anxiety. Neuro: Patient denies headache, paresthesias or focal neurologic deficits. Allergy: Patient denies lip swelling, tongue swelling or urticaria. Hematology: Patient admits to watery melanotic stools as per HPI. Endocrinology: Patient denies polyuria, polydipsia or polyphagia. 14 point ROS otherwise negative except for positives noted above in HPI. Vital Signs Vital Signs Vital Signs: 10/11/24 20:53 10/11/24 21:53 10/11/24 21:57 Temperature 98.1 F Temperature Source Oral Pulse Rate 63 Pulse Rate [Lying] 63 Pulse Rate [Sitting (for 1 minute prior to obtaining)] 75 Respiratory Rate 18 Blood Pressure 102/71 Blood Pressure [Lying] 106/62 Blood Pressure [Sitting (for 1 minute prior to obtaining)] 86/55 L Blood Pressure Mean 81 Blood Pressure Mean [Lying] 76 Blood Pressure Mean [Sitting (for 1 minute prior to obtaining)] 65 Pulse Ox 98 Oxygen Delivery Method Room Air Room Air Weight Weight: 146 lb 9.6 oz Body Mass Index (BMI) 22.9 Physical Exam Const alert, oriented x3, no apparent distress and average body habitus Constitutional Narrative: Patient appears chronically ill. General Appearance: cooperative HEENT normocephalic, head/scalp atraumatic, hearing grossly normal bilaterally and moist oral mucous membranes Eyes PERRL and EOMs intact bilaterally Neck no lymphadenopathy and supple Resp normal respiratory effort, no retractions, no use of accessory muscles and clearto auscultation bilaterally Cardio regular rate and regular rhythm GI normal to inspection, nondistended, normoactive bowel sounds, soft to palpation,non-tender and non-distended Extremity normal to inspection, full ROM and no clubbing, cyanosis or edema Skin Skin Narrative: Patient denies rash, abscess, wounds or jaundice. Neuro oriented x3, CN's II-XII intact bilaterally, moves all extremities and no focal motor deficits Sensorium / Orientation: awake, alert, oriented to person, oriented to place andoriented to time Speech: speech normal Psych affect normal Results Medical Records Data Attestation: I reviewed the patient's medical records Lab / Micro Data Attestation: I reviewed the patient's lab results. 10/11/24 21:09 10/11/24 21:09 Labs: Laboratory Results - last 24 hr 10/11/24 21:09: WBC 12.2 H, RBC 3.46 L, Hgb 11.0 L, Hct 31.9 L, MCV 92.2, MCH 31.8, MCHC 34.5, RDW Std Deviation 45.6 H, RDW Coeff of Marley 13.5, Plt Count 199,MPV 10.3, Immature Gran % (Auto) 0.500, Neut % (Auto) 81.2 H, Lymph % (Auto) 11.3 L, Spencer % (Auto) 6.9, Eos % (Auto) 0.0, Baso % (Auto) 0.1, Absolute Neuts (auto) 9.9 H, Absolute Lymphs (auto) 1.38, Nucleated RBC % 0, PT 24.5 H, INR 2.2, APTT 36.8 H, Sodium 133, Potassium 4.1, Chloride 94 L, Carbon Dioxide 22.4,Anion Gap 17 H, BUN 84 H, Creatinine 2.22 H, Estim Creat Clear Calc 23.57 L, EstGFR (MDRD) Non-Af 29 L, BUN/Creatinine Ratio 37.7 H, Glucose 261 H, Calcium 9.4 Micro: Microbiology 10/11/24 21:35 Stool Stool Occult Blood (MADELEINE) - Final Assessment & Plan Assessment/Plan (1) Melanotic stools: (2) Elevated BUN: (3) LISA (acute kidney injury): (4) Chronic kidney disease (CKD), stage II (mild): (5) Severe hypotension: PLAN: Plan 1. UGIB with Melanotic Stools and ABLA - Admit to PCU. Keep strict NPO and continue IV pantoprazole drip. Give ondansetron IV prn for nausea and vomiting. Finally, we will consult gastroenterology to see this patient on rounds in the AM for recommendations regarding EGD in the AM with help appreciated in advance. 2. Adverse drug Reaction to apixaban triggering #1 - Hold apixaban until further notice. 3. Severe Hypotension of 86/55 mmHg noted shortly after admission with LISA in the setting of CKD; stage II due to #1 & #2 - Volume resuscitate and recheck renal indices daily to follow trend. 4. Recent admission here from October 07, 2024 to October 08, 2024 with chief complaint of fatigue and malaise with patient subsequently diagnosed with adult [id number] complicated by LISA; in the setting of CKD; stage II with hypokalemia of 2.9 mmol/L and mild hyponatremia of 131 mmol/L adding to the medical complexity of #1 - #3 - Noted. 5. Essential Hypertension; on carvedilol and furosemide - Hold scheduled antihypertensives in light of bleeding and hypotension outlined in #1 & #3. 6. Hyperlipidemia; on rosuvastatin - Restart statin after EGD when okay with GI. 7. DM-2; of unknown control on insulin detemir 32U sq HS plus insulin lispro 10U TID - Keep NPO. FSBS q. 6 hours with lowest-intensity SSI. Check HgbA1c toobjectively assess quality of diabetic control. 8. History of PAF; on apixaban - Hold apixaban until further notice. 9. CAD; s/p CABG (2009) - Noted. 10. Ischemic cardiomyopathy with LVEF ~20% (01/2024); s/p AICD-PPM on ISMO and prn SL NTG - Hold ISMO and SL NTG with hypotension noted on admission. 11. History of NSVT; s/p EP study (2006) - Noted. 12. History of nonrheumatic mitral valve insufficiency; s/p 30 mm [place] mitral valve annuloplasty - Stable. 13. History of carotid stenosis; s/p Right carotid endarterectomy with bovine patch angioplasty (2020) followed by Dr. Ly of vascular surgery - Noted. 14. BPH; on tamsulosin - Resume tamsulosin after EGD when okay with GI. 15. Chronic insomnia; on prn zolpidem q. HS - Noted. 16. History of depression with anxiety; currently not on treatment - Stable. 17. OA - Stable. 18. DNR-CCA; with no intubation CODE STATUS - Noted. 19. DVT prophylaxis - SCD's only in light of #1. Total time: Approximately (but not less than) 75 minutes. Charges/Coding Visit Charges Inpatient E&M: 62350 Init Hosp L3 10/12/24 0654 <Electronically signed by Germán Landeros DO> Cosigner Signature (if applicable): CC: Dr. Germán Landeros DO; Dr. Jose Enrique Finney MD~ Signed [facility] Work Phone: [phone]) [phone] History and physical note [facility] Medical Records Department [address] [address] H&P Exam - Hospitalist 10/11/249 MR#: [id number] Acct: [id number] Name: JUAN DAVID HERNÁNDEZ Rep #:[id number] : 1940 84 From: Germán Escalante DO PCP: Dr. Jose Enrique Finney MD Status:AD M IN Location: [facility] [id number] HPI - General General Date of Admission: 10/11/24 Date of Service: 10/11/24 Chief Complaint: Dizziness and Melena with Watery Black Stools. HPI Narrative JUAN DAVID HERNÁNDEZ, is a 84 M with a past medical history of essential hypertension; on carvedilol andfurosemide, hyperlipidemia; on rosuvastatin, DM- 2; of unknown control on insulin detemir 32U sq HS plus insulin lispro 10U TID, history of PAF; on apixaban, CAD; s/p CABG (2009), ischemic cardiomyopathy with LVEF ~20% (01/2024); s/p AICD-PPM on ISMO and prn SL NTG, history of NSVT; s/p EPstudy (2006), history of nonrheumatic mitral valve insufficiency; s/p 30 mm [place] mitral valve annuloplasty, history of carotid stenosis; s/p Right carotid endarterectomy with bovine patch angioplasty (2020) followed by Dr. Ly of vascular surgery, CKD; stage II, BPH; on tamsulosin, chronic insomnia;onprn zolpidem q. HS, history of depression with anxiety; currently not on treatment, OA, DNR-CCA; with no intubation CODE STATUS and recent admission herefrom October 07, 2024 to October 08, 2024 with chief complaint of fatigue and malaisewith patient subsequently diagnosed with adult nprbyvl-gg-syvrpu co mplicated by LISA; in the setting of stage II CKD with hypokalemia of 2.9 mmol/L and mild hyponatremia of 131 mmol/L who presents to [facility] ER complaining of dizziness and melena with watery black stools. Mr. Hernández reports his symptoms began approximately 1 day prior to admission after he ate a jar of vinegar beets with subsequent black stools and intermittent dizziness. He then went to see his PCPearlier today and had bloodwork performed as an outpatient that revealed evidence of upper GI bleeding withhemoglobin dropping to 11.1 g/dL (down from 13.3 g/dL on October 08, 2024) in addition to BUN of 84 mg/dL with serum creatinine of 2.22 mg/dL (up from his baseline of 27 mg/dL and 1.81 mg/dL on October 08, 2024) with corresponding symptomatic hypotension so he was directed to come to the ER for further evaluation and treatment. He states he last took his Eliquis at 3:30 PM today. There was no report of fever, chills, sore throat, runny nose, chest pain, lowerextremity edema, shortness of breath, cough, dysuria, hematuria, back pain or headache. In the ER he was noted to have severe hypotension of 86/55 mmHg shortly after admission due to suspected UGIB with ABLA likely due to Adverse Drug Reaction to apixaban with elevated INR of 2.2 present on admission. He wasthen admitted to the [facility] ongoing care for a stay that is expected to extend beyond 2 midnights. [facility] Medical History (Updated 10/12/24 @ 00:[address] Germán Landeros, ) Mixed hyperlipidemia Paroxysmal atrial fibrillation Hypokalemia due to loss of potassium Acute blood loss anemia Upper GI bleed Muscle cramps NSVT (nonsustained ventricular tachycardia) Nonrheumatic mitral valve insufficiency Atherosclerosis of [place] coronary artery of [place] heart without angina pectoris Ischemic cardiomyopathy Essential (primary) hypertension Type 2 diabetes mellitus without complications Home Medications ?Medication ?Instructions ?Recorded ?Last Taken ?Type multivitamin with folic acid 400 1 tab PO DAILY supple ment 04/11/17 Unknown History mcg tablet insulin lispro 100 unit/mL 10 unit subcut TID blood miranda gar 03/17/18 11/12/18 07:00 History subcutaneous cartridge insulin detemir U-100 100 unit/mL 32 unit subcut QHS d iabetes 11/10/20 Unknown History (3 mL) subcutaneous pen tamsulosin 0.4 mg capsule 0.4 mg PO DAILY prostate 07/21 Unknown History zolpidem 5 mg tablet (Ambien) 5 mg PO QHS PRN insomnia 11/10/20 Unknown History apixaban 5 mg tablet 5 mg PO BID Blood thinner #1 80 tabs 02/24/21 Unknown Rx carvedilol 12.5 mg tablet 12.5 mg PO BID Heart rate/bl ood 02/24/21 Unknown Rx pressure #180 tabs nitroglycerin 0.4 mg sublingual 0.4 mg sublingual Q5-1 5M PRN chest 03/22/23 Unknown Rx tablet (Nitrostat) pain #25 tabs isosorbide mononitrate 30 mg 30 mg PO DAILY heart #90 tabs 06/18/24 Unknown Rx tablet,extended release 24 hr rosuvastatin 40 mg tablet 40 mg PO DAILY cholesterol # 90 tabs 06/18/24 Unknown Rx furosemide 40 mg tablet 40 mg PO .COMPLEX diuretic # 180 08/03/24 Unknown Rx tabs potassium chloride 20 mEq 40 meq (2 x 20 mEq) PO BID # 120 10/08/24 Unknown Rx tablet,extended release(part/cryst) tabs blood sugar diagnostic (True 10/11/24 Unknown History Metrix Glucose Test Strip) Allergy/AdvReac Type Severity Reaction Status Date / Time atorvastatin Allergy Severe myalgias, Verified 10/11/24 20:54 tongue swelling captopril Allergy Severe tongue Verified 10/11/24 20:54 swelling rivaroxaban (From Xarelto) Allergy Severe tongue Verified 10/11/24 20:54 swelling glimepiride Allergy Intermediate mouth Verified 10/11/24 20:54 blisters levofloxacin (From Levaquin) Allergy Intermediate leg pain Verified 10/11/24 20:54 dapagliflozin (From Farxiga) Allergy Unknown Rash Verified 10/11/24 20:54 azithromycin (From Zithromax) AdvReac Severe blisters Verified 10/11/24 20:54 metolazone AdvReac Severe Rash/Itchin Verified 10/11/24 20:54 g pravastatin AdvReac Intermediate itching Verified 10/11/24 20:54 Surgical History History of right-sided carotid endarterectomy History of electrophysiologic study History of left heart catheterization Status post mitral valve annuloplasty Hx of CABG (~11/14/09) Social History household members: none Smoking Status: Former smoker how long ago did patient quit smokin years ago alcohol intake: never substance use type: does not use caffeine: No what type of physical activity do you participate in: walking frequency: daily duration: 15-30 minutes/day seatbelt use: always do you feel safe at home: Yes ROS ROS Narrative Review of Systems: Constitutional: Patient denies fever or chills. Eyes: Patient denies changes vision or discharge from eyes. ENT: Patient denies runny nose, sore throat or ear pain. Resp: Patient denies shortness of breath or cough. CV: Patient admits to lightheadedness with corresponding hypotension as per HPI but he denies chestpain, palpitations, heart racing or lower extremity edema. GI: Patient admits to watery melanotic stool as per HPI but he denies abdominal pain, nausea, vomiting or constipation. : Patient denies dysuria, hematuria or urinary frequency. MSK: Patient denies arthralgias or myalgias. Skin: Patient denies rash, abscess, wounds or jaundice. Psych: Patient denies symptoms of uncontrolled depression or anxiety. Neuro: Patient denies headache, paresthesias or focal neurologic deficits. Allergy: Patient denies lip swelling, tongue swelling or urticaria. Hematology: Patient admits to watery melanotic stools as per HPI. Endocrinology: Patient denies polyuria, polydipsia or polyphagia. 14 point ROS otherwise negative except for positives noted above in HPI. Vital Signs Vital Signs Vital Signs: 10/11/24 20:53 10/11/24 21:53 10/11/24 21:57 Temperature 98.1 F Temperature Source Oral Pulse Rate 63 Pulse Rate [Lying] 63 Pulse Rate [Sitting (for 1 minute prior to obtaining)] 75 Respiratory Rate 18 Blood Pressure 102/71 Blood Pressure [Lying] 106/62 Blood Pressure [Sitting (for 1 minute prior to obtaining)] 86/55 L Blood Pressure Mean 81 Blood Pressure Mean [Lying] 76 Blood Pressure Mean [Sitting (for 1 minute prior to obtaining)] 65 Pulse Ox 98 Oxygen Delivery Method Room Air Room Air Weight Weight: 146 lb 9.6 oz Body Mass Index (BMI) 22.9 Physical Exam Const alert, oriented x3, no apparent distress and average body habitus Constitutional Narrative: Patient appears chronically ill. General Appearance: cooperative HEENT normocephalic, head/scalp atraumatic, hearing grossly normal bilaterally and moist oral mucous membranes Eyes PERRL and EOMs intact bilaterally Neck no lymphadenopathy and supple Resp normal respiratory effort, no retractions, no use of accessory muscles and clearto auscultation bilaterally Cardio regular rate and regular rhythm GI normal to inspection, nondistended, normoactive bowel sounds, soft to palpation,non-tender and non-distended Extremity normal to inspection, full ROM and no clubbing, cyanosis or edema Skin Skin Narrative: Patient denies rash, abscess, wounds or jaundice. Neuro oriented x3, CN's II-XII intact bilaterally, moves all extremities and no focal motor deficits Sensorium / Orientation: awake, alert, oriented to person, oriented to place andoriented to time Speech: speech normal Psych affect normal Results Medical Records Data Attestation: I reviewed the patient's medical records Lab / Micro Data Attestation: I reviewed the patient's lab results. 10/11/24 21:09 10/11/24 21:09 Labs: Laboratory Results - last 24 hr 10/11/24 21:09: WBC 12.2 H, RBC 3.46 L, Hgb 11.0 L, Hct 31.9 L, MCV 92.2, MCH 31.8, MCHC 34.5, RDW Std Deviation 45.6 H, RDW Coeff of Marley 13.5, Plt Count 199,MPV 10.3, Immature Gran % (Auto) 0.500, Neut % (Auto) 81.2 H, Lymph % (Auto) 11.3 L, Spencer % (Auto) 6.9, Eos % (Auto) 0.0, Baso % (Auto) 0.1, Absolute Neuts (auto) 9.9 H, Absolute Lymphs (auto) 1.38, Nucleated RBC % 0, PT 24.5 H, INR 2.2, APTT 36.8 H, Sodium 133, Potassium 4.1, Chloride 94 L, Carbon Dioxide 22.4,Anion Gap 17 H, BUN 84 H, Creatinine 2.22 H, Estim Creat Clear Calc 23.57 L, EstGFR (MDRD) Non-Af 29 L, BUN/Creatinine Ratio 37.7 H, Glucose 261 H, Calcium 9.4 Micro: Microbiology 10/11/24 21:35 Stool Stool Occult Blood (MADELEINE) - Final Assessment & Plan Assessment/Plan (1) Melanotic stools: (2) Elevated BUN: (3) LISA (acute kidney injury): (4) Chronic kidney disease (CKD), stage II (mild): (5) Severe hypotension: PLAN: Plan 1. UGIB with Melanotic Stools and ABLA - Admit to PCU. Keep strict NPO and continue IV pantoprazoledrip. Give ondansetron IV prn for nausea and vomiting. Finally, we will consult gastroenterology tosee this patient on rounds in the AM for recommendations regarding EGD in the AM with help appreciated in advance. 2. Adverse drug Reaction to apixaban triggering #1 - Hold apixaban until further notice. 3. Severe Hypotension of 86/55 mmHg noted shortly after admission with LISA in the setting of CKD; stage II due to #1 & #2 - Volume resuscitate and recheck renal indices daily to follow trend. 4. Recent admission here from October 07, 2024 to October 08, 2024 with chief complaint of fatigue and malaise with patient subsequently diagnosed with adult [id number] complicated by LISA; in the setting of CKD; stage II with hypokalemia of 2.9 mmol/L and mild hyponatremia of 131 mmol/L adding tothe medical complexity of #1 - #3 - Noted. 5. Essential Hypertension; on carvedilol and furosemide - Hold scheduled antihypertensives in lightof bleeding and hypotension outlined in #1 & #3. 6. Hyperlipidemia; on rosuvastatin - Restart statin after EGD when okay with GI. 7. DM-2; of unknown control on insulin detemir 32U sq HS plus insulin lispro 10U TID - Keep NPO. FSBS q. 6 hours with lowest-intensity SSI. Check HgbA1c toobjectively assess quality of diabetic control. 8. History of PAF; on apixaban - Hold apixaban until further notice. 9. CAD; s/p CABG (2009) - Noted. 10. Ischemic cardiomyopathy with LVEF ~20% (01/2024); s/p AICD-PPM on ISMO and prn SL NTG - Hold ISMO and SL NTG with hypotension noted on admission. 11. History of NSVT; s/p EP study (2006) - Noted. 12. History of nonrheumatic mitral valve insufficiency; s/p 30 mm [place] mitral valve annuloplasty - Stable. 13. History of carotid stenosis; s/p Right carotid endarterectomy with bovine patch angioplasty (2020) followed by Dr. Ly of vascular surgery - Noted. 14. BPH; on tamsulosin - Resume tamsulosin after EGD when okay with GI. 15. Chronic insomnia; on prn zolpidem q. HS - Noted. 16. History of depression with anxiety; currently not on treatment - Stable. 17. OA - Stable. 18. DNR-CCA; with no intubation CODE STATUS - Noted. 19. DVT prophylaxis - SCD's only in light of #1. Total time: Approximately (but not less than) 75 minutes. Charges/Coding Visit Charges Inpatient E&M: 55006 Init Hosp L3 10/12/24 0654 Cosigner Signature (if applicable): CC: Dr. Germán Landeros DO; Dr. Jose Enrique Finney MD~ Signed [facility]03-14-2025 Discharge summary Author Fei Le [facility] Note Date/Time October 11, 2024 10: 56pm [facility] Medical Records Department [address] [place] [address] Emergency Department Summary 10/11/24 MR#: [id number] Acct: [id number] Name: JUAN DAVID HERNÁNDEZ Rep #:[id number] : 1940 84 From: Fei Dupree PCP: Dr. Jose Enrique Finney MD Status:RE G ER Location: ED HPI HPI - GI History of Present Illness Chief Complaint: Dizziness Informant: patient and family Narrative Narrative: Patient presents to the ED lightheaded symptoms black stool x 3 today no abdominal pain. Chronic Eliquis history of paroxysmal A-fib. He does have history of CABG AICD. No cough. No syncopal episode. Saw his PCP today, bloodwork performed outpatient. Last Eliquis around 3:30 PM. No history of upper orlower endoscopies in the past. Discharged 3 days ago for acute kidney injury and hypokalemia. He had a follow- up. [facility] Medical History Mixed hyperlipidemia Paroxysmal atrial fibrillation Hypokalemia due to loss of potassium Acute blood loss anemia Upper GI bleed Muscle cramps NSVT (nonsustained ventricular tachycardia) Nonrheumatic mitral valve insufficiency Atherosclerosis of [place] coronary artery of [place] heart without angina pectoris Ischemic cardiomyopathy Essential (primary) hypertension Type 2 diabetes mellitus without complications Home Medications ?Medication ?Instructions ?Recorded ?Last Taken ?Type multivitamin with folic acid 400 1 tab PO DAILY supple ment 04/11/17 Unknown History mcg tablet insulin lispro 100 unit/mL 10 unit subcut TID blood miranda gar 03/17/18 11/12/18 07:00 History subcutaneous cartridge insulin detemir U-100 100 unit/mL 32 unit subcut QHS d iabetes 11/10/20 Unknown History (3 mL) subcutaneous pen tamsulosin 0.4 mg capsule 0.4 mg PO DAILY prostate 07/21 Unknown History zolpidem 5 mg tablet (Ambien) 5 mg PO QHS PRN insomnia 11/10/20 Unknown History apixaban 5 mg tablet 5 mg PO BID Blood thinner #1 80 tabs 02/24/21 Unknown Rx carvedilol 12.5 mg tablet 12.5 mg PO BID Heart rate/bl ood 02/24/21 Unknown Rx pressure #180 tabs nitroglycerin 0.4 mg sublingual 0.4 mg sublingual Q5-1 5M PRN chest 03/22/23 Unknown Rx tablet (Nitrostat) pain #25 tabs isosorbide mononitrate 30 mg 30 mg PO DAILY heart #90 tabs 06/18/24 Unknown Rx tablet,extended release 24 hr rosuvastatin 40 mg tablet 40 mg PO DAILY cholesterol # 90 tabs 06/18/24 Unknown Rx furosemide 40 mg tablet 40 mg PO .COMPLEX diuretic # 180 08/03/24 Unknown Rx tabs potassium chloride 20 mEq 40 meq (2 x 20 mEq) PO BID # 120 10/08/24 Unknown Rx tablet,extended release(part/cryst) tabs blood sugar diagnostic (True 10/11/24 Unknown History Metrix Glucose Test Strip) Allergy/AdvReac Type Severity Reaction Status Date / Time atorvastatin Allergy Severe myalgias, Verified 10/11/24 20:54 tongue swelling captopril Allergy Severe tongue Verified 10/11/24 20:54 swelling rivaroxaban (From Xarelto) Allergy Severe tongue Verified 10/11/24 20:54 swelling glimepiride Allergy Intermediate mouth Verified 10/11/24 20:54 blisters levofloxacin (From Levaquin) Allergy Intermediate leg pain Verified 10/11/24 20:54 dapagliflozin (From Farxiga) Allergy Unknown Rash Verified 10/11/24 20:54 azithromycin (From Zithromax) AdvReac Severe blisters Verified 10/11/24 20:54 metolazone AdvReac Severe Rash/Itchin Verified 10/11/24 20:54 g pravastatin AdvReac Intermediate itching Verified 10/11/24 20:54 Surgical History History of right-sided carotid endarterectomy History of electrophysiologic study History of left heart catheterization Status post mitral valve annuloplasty Hx of CABG (~11/14/09) Social History household members: none Smoking Status: Former smoker how long ago did patient quit smokin years ago alcohol intake: never substance use type: does not use caffeine: No what type of physical activity do you participate in: walking frequency: daily duration: 15-30 minutes/day seatbelt use: always do you feel safe at home: Yes ROS ROS ED Constitutional Constitutional ED: Denies chills, fever(s) or sweats ENT ENT ED: Denies sore throat Cardiovascular Cardiovascular: Denies chest pain, leg edema, palpitations or racing heartbeat Respiratory/Chest Respiratory/Chest: Denies cough, dyspnea or dyspnea on exertion Gastrointestinal Gastrointestinal: Reports melena; Denies abdominal pain, diarrhea, nausea or vomiting Genitourinary Genitourinary ED: Denies dysuria, hematuria or urinary frequency Musculoskeletal Musculoskeletal: Denies back pain, extremity pain or neck pain Integumentary Denies rash or wounds Neurologic Neurologic: Denies headache(s), paresthesias or weakness EXAM Physical Exam Const Vital Signs: 10/11/24 20:53 10/11/24 21:53 10/11/24 21:57 Temperature 98.1 F Temperature Source Oral Pulse Rate 63 Pulse Rate [Lying] 63 Pulse Rate [Sitting (for 1 minute prior to obtaining)] 75 Respiratory Rate 18 Blood Pressure 102/71 Blood Pressure [Lying] 106/62 Blood Pressure [Sitting (for 1 minute prior to obtaining)] 86/55 L Blood Pressure Mean 81 Blood Pressure Mean [Lying] 76 Blood Pressure Mean [Sitting (for 1 minute prior to obtaining)] 65 Pulse Ox 98 Oxygen Delivery Method Room Air Room Air Positive well nourished and well developed General Appearance ED: well developed and NAD HEENT Reports moist mucous membranes normocephalic and atraumatic Eyes General Eye ED: Yes normal appearance of both eyes; Negative for pale conjunctiva Neck full ROM Chest Wall Chest: Negative for tenderness Resp normal respiratory effort and normal air movement Effort and Inspection: symmetric chest movement; Negative for respiratory distress Cardio regular rate, regular rhythm and no murmurs Peripheral Pulses: pulses 2+ throughout GI normal to inspection, nondistended, normoactive bowel sounds and non-tender GI Narrative: Rectal exam: Dark tarry stools liquid, guaiac pending. Palpation: Negative for guarding or rebound tenderness present Extremity normal to inspection General Extremety ED: Negative for edema or tenderness General Extremity: Negative for edema Neuro oriented x3 and no sensory deficits noted Sensorium / Orientation: awake and alert Skin no rashes or lesions noted and no wounds MDM MDM MDM Narrative Medical decision making narrative: Interventions / MDM: Differential diagnosis: Upper GI bleed, chronic anticoagulation, orthostasis Diagnosis considered but do not suspect: N/A My EKG interpretation: Paced rhythm rate of 65, no acute findings. Imaging independently reviewed and interpreted by myself: N/A External documents reviewed: Labs outpatient hemoglobin 11.1, 3 days ago hemoglobin 13.3. BUN 86 creatinine 2.15 today. 3 days ago BUN 27, creatinine 1.85. Test considered but not ordered:N/A ED course: Patient black liquid stools on rectal exam. Evaluation hemoglobin difference of 2 units from 3 days ago. Labs were redrawn to check, Hemoccult sent. IV Protonix ordered. EKG and orthostatics ordered. I spoke with GI Dr. Friend, will start Protonix drip. Will plan to admit for upper scope tomorrow. 2229: Hemoglobin stable at 11. Orthostatics was positive he is ordered for 1 L of normal saline. Hemoccult returned negative. Further discussion with the patient, he did eat a bunch of beets yesterday. Explanation for the black stools. I did we discussed with Friend, will stop the Protonix drip will check H&H's. With him being orthostatic positive with hemoglobin difference of 2 units, will still plan to admit to recheck H&H's. 2250: I spoke with house with Dr. Cedeno, we reviewed the labs his BUN is up,therefore would like to restart the Protonix drip as he is on chronic anticoagulation medicines. This was restarted. Will admit him to PCU. Re-evaluation: stable Disposition discussed with patient/family/significant other: Patient Case discussed with consulting clinician: Gastroenterology, hospitalist This note was generated with [employer] software. It may contain incorrectwords, spelling, and punctuation that were not noted in checking the note beforesigning. Lab Data Attestation: I reviewed the patient's lab results. Labs: Laboratory Results - last 24 hr 10/11/24 21:09 WBC 12.2 H RBC 3.46 L Hgb 11.0 L Hct 31.9 L MCV 92.2 MCH 31.8 MCHC 34.5 RDW Std Deviation 45.6 H RDW Coeff of Marley 13.5 Plt Count 199 MPV 10.3 Immature Gran % (Auto) 0.500 Neut % (Auto) 81.2 H Lymph % (Auto) 11.3 L Spencer % (Auto) 6.9 Eos % (Auto) 0.0 Baso % (Auto) 0.1 Absolute Neuts (auto) 9.9 H Absolute Lymphs (auto) 1.38 Nucleated RBC % 0 PT 24.5 H INR 2.2 APTT 36.8 H Sodium 133 Potassium 4.1 Chloride 94 L Carbon Dioxide 22.4 Anion Gap 17 H BUN 84 H Creatinine 2.22 H Estim Creat Clear Calc 23.57 L Est GFR (MDRD) Non-Af 29 L BUN/Creatinine Ratio 37.7 H Glucose 261 H Calcium 9.4 Discharge Plan Triage Chief Complaint: Dizziness Other Complaint: GI Bleed ED Provider: Fei Easton Dx/Rx/DC Orders Clinical Impression: GI bleed, Chronic anticoagulation, Orthostasis Prescriptions: No Action tamsulosin 0.4 mg capsule 0.4 mg PO DAILY zolpidem [Ambien] 5 mg tablet 5 mg PO QHS PRN (Reason: insomnia) nitroglycerin [Nitrostat] 0.4 mg tablet, sublingual 0.4 mg sublingual Q5-15M PRN (Reason: chest pain) Qty: 25 3RF Rx Instructions: do not exceed 3 doses per episode multivitamin with folic acid 1 TABLET tablet 1 tab PO DAILY insulin detemir U-100 100 unit/mL (3 mL) insulin pen 32 unit SC QHS insulin lispro 100 UNIT/ML cartridge 10 unit SC TID potassium chloride 20 mEq Tablet,Er Particles/Crystals 40 meq PO BID Qty: 120 0RF (DME) True Metrix Glucose Test Strip Strip 1 strip MISCELLANEOUS TID apixaban 5 mg tablet 5 mg PO BID Qty: 180 3RF carvedilol 12.5 mg tablet 12.5 mg PO BID Qty: 180 3RF rosuvastatin 40 mg tablet 40 mg PO DAILY Qty: 90 3RF isosorbide mononitrate 30 mg tablet extended release 24 hr 30 mg PO DAILY Qty: 90 3RF furosemide 40 mg tablet 40 mg PO .COMPLEX Qty: 180 3RF Rx Instructions: 40 mg orally decrease to once daily: May need to increase back to twice daily if SOB, swelling, etc.; Primary Care Provider: Jose Enrique Finney Referrals: Jose Enrique Finney MD [Primary Care Provider] - Print Language: Montenegrin Disposition Disposition: Acute Care Hospital [facility] What to do if you have Problems For any increased pain, shortness of breath, bleeding, nausea or vomiting, chestpain, or any unexpected problems, contact your Primary Care Provider. Call [facility] ([phone]) or report to the closest Emergency Room. Call 911 if necessary. 10/11/242255 <Electronically signed by Fei Dupree> Cosigner Signature (if applicable): CC: Dr. Jose Enrique Finney MD ~ Signed [facility] Work Phone: [phone] Discharge summary [facility] Medical Records Department [address] [place] [address] Emergency Department Summary 10/11/24 MR#: [id number] Acct: [id number] Name: BETTYJUAN DAVID Vidhi Rep #:[id number] : 1940 84 From: Fei Dupree PCP: Dr. Jose Enrique Finney MD Status:RE G ER Location: ED HPI HPI - GI History of Present Illness Chief Complaint: Dizziness Informant: patient and family Narrative Narrative: Patient presents to the ED lightheaded symptoms black stool x 3 today no abdominal pain. Chronic Eliquis history of paroxysmal A-fib. He does have history of CABG AICD. No cough. No syncopal episode.Saw his PCP today, bloodwork performed outpatient. Last Eliquis around 3:30 PM. No history of upperorlower endoscopies in the past. Discharged 3 days ago for acute kidney injury and hypokalemia. He had a follow-up. [facility] Medical History Mixed hyperlipidemia Paroxysmal atrial fibrillation Hypokalemia due to loss of potassium Acute blood loss anemia Upper GI bleed Muscle cramps NSVT (nonsustained ventricular tachycardia) Nonrheumatic mitral valve insufficiency Atherosclerosis of [place] coronary artery of [place] heart without angina pectoris Ischemic cardiomyopathy Essential (primary) hypertension Type 2 diabetes mellitus without complications Home Medications ?Medication ?Instructions ?Recorded ?Last Taken ?Type multivitamin with folic acid 400 1 tab PO DAILY supple ment 04/11/17 Unknown History mcg tablet insulin lispro 100 unit/mL 10 unit subcut TID blood miranda gar 03/17/18 11/12/18 07:00 History subcutaneous cartridge insulin detemir U-100 100 unit/mL 32 unit subcut QHS d iabetes 11/10/20 Unknown History (3 mL) subcutaneous pen tamsulosin 0.4 mg capsule 0.4 mg PO DAILY prostate 07/21 Unknown History zolpidem 5 mg tablet (Ambien) 5 mg PO QHS PRN insomnia 11/10/20 Unknown History apixaban 5 mg tablet 5 mg PO BID Blood thinner #1 80 tabs 02/24/21 Unknown Rx carvedilol 12.5 mg tablet 12.5 mg PO BID Heart rate/bl ood 02/24/21 Unknown Rx pressure #180 tabs nitroglycerin 0.4 mg sublingual 0.4 mg sublingual Q5-1 5M PRN chest 03/22/23 Unknown Rx tablet (Nitrostat) pain #25 tabs isosorbide mononitrate 30 mg 30 mg PO DAILY heart #90 tabs 06/18/24 Unknown Rx tablet,extended release 24 hr rosuvastatin 40 mg tablet 40 mg PO DAILY cholesterol # 90 tabs 06/18/24 Unknown Rx furosemide 40 mg tablet 40 mg PO .COMPLEX diuretic # 180 08/03/24 Unknown Rx tabs potassium chloride 20 mEq 40 meq (2 x 20 mEq) PO BID # 120 10/08/24 Unknown Rx tablet,extended release(part/cryst) tabs blood sugar diagnostic (True 10/11/24 Unknown History Metrix Glucose Test Strip) Allergy/AdvReac Type Severity Reaction Status Date / Time atorvastatin Allergy Severe myalgias, Verified 10/11/24 20:54 tongue swelling captopril Allergy Severe tongue Verified 10/11/24 20:54 swelling rivaroxaban (From Xarelto) Allergy Severe tongue Verified 10/11/24 20:54 swelling glimepiride Allergy Intermediate mouth Verified 10/11/24 20:54 blisters levofloxacin (From Levaquin) Allergy Intermediate leg pain Verified 10/11/24 20:54 dapagliflozin (From Farxiga) Allergy Unknown Rash Verified 10/11/24 20:54 azithromycin (From Zithromax) AdvReac Severe blisters Verified 10/11/24 20:54 metolazone AdvReac Severe Rash/Itchin Verified 10/11/24 20:54 g pravastatin AdvReac Intermediate itching Verified 10/11/24 20:54 Surgical History History of right-sided carotid endarterectomy History of electrophysiologic study History of left heart catheterization Status post mitral valve annuloplasty Hx of CABG (~11/14/09) Social History household members: none Smoking Status: Former smoker how long ago did patient quit smokin years ago alcohol intake: never substance use type: does not use caffeine: No what type of physical activity do you participate in: walking frequency: daily duration: 15-30 minutes/day seatbelt use: always do you feel safe at home: Yes ROS ROS ED Constitutional Constitutional ED: Denies chills, fever(s) or sweats ENT ENT ED: Denies sore throat Cardiovascular Cardiovascular: Denies chest pain, leg edema, palpitations or racing heartbeat Respiratory/Chest Respiratory/Chest: Denies cough, dyspnea or dyspnea on exertion Gastrointestinal Gastrointestinal: Reports melena; Denies abdominal pain, diarrhea, nausea or vomiting Genitourinary Genitourinary ED: Denies dysuria, hematuria or urinary frequency Musculoskeletal Musculoskeletal: Denies back pain, extremity pain or neck pain Integumentary Denies rash or wounds Neurologic Neurologic: Denies headache(s), paresthesias or weakness EXAM Physical Exam Const Vital Signs: 10/11/24 20:53 10/11/24 21:53 10/11/24 21:57 Temperature 98.1 F Temperature Source Oral Pulse Rate 63 Pulse Rate [Lying] 63 Pulse Rate [Sitting (for 1 minute prior to obtaining)] 75 Respiratory Rate 18 Blood Pressure 102/71 Blood Pressure [Lying] 106/62 Blood Pressure [Sitting (for 1 minute prior to obtaining)] 86/55 L Blood Pressure Mean 81 Blood Pressure Mean [Lying] 76 Blood Pressure Mean [Sitting (for 1 minute prior to obtaining)] 65 Pulse Ox 98 Oxygen Delivery Method Room Air Room Air Positive well nourished and well developed General Appearance ED: well developed and NAD HEENT Reports moist mucous membranes normocephalic and atraumatic Eyes General Eye ED: Yes normal appearance of both eyes; Negative for pale conjunctiva Neck full ROM Chest Wall Chest: Negative for tenderness Resp normal respiratory effort and normal air movement Effort and Inspection: symmetric chest movement; Negative for respiratory distress Cardio regular rate, regular rhythm and no murmurs Peripheral Pulses: pulses 2+ throughout GI normal to inspection, nondistended, normoactive bowel sounds and non-tender GI Narrative: Rectal exam: Dark tarry stools liquid, guaiac pending. Palpation: Negative for guarding or rebound tenderness present Extremity normal to inspection General Extremety ED: Negative for edema or tenderness General Extremity: Negative for edema Neuro oriented x3 and no sensory deficits noted Sensorium / Orientation: awake and alert Skin no rashes or lesions noted and no wounds MDM MDM MDM Narrative Medical decision making narrative: Interventions / MDM: Differential diagnosis: Upper GI bleed, chronic anticoagulation, orthostasis Diagnosis considered but do not suspect: N/A My EKG interpretation: Paced rhythm rate of 65, no acute findings. Imaging independently reviewed and interpreted by myself: N/A External documents reviewed: Labs outpatient hemoglobin 11.1, 3 days ago hemoglobin 13.3. BUN 86 creatinine 2.15 today. 3 days ago BUN 27, creatinine 1.85. Test considered but not ordered:N/A ED course: Patient black liquid stools on rectal exam. Evaluation hemoglobin difference of 2 units from 3 days ago. Labs were redrawn to check, Hemoccult sent. IV Protonix ordered. EKG and orthostatics ordered. I spoke with GI Dr. Chavez, will start Protonix drip. Will plan to admit for upper scope tomorrow. 2229: Hemoglobin stable at 11. Orthostatics was positive he is ordered for 1 L of normal saline. Hemoccult returned negative. Further discussion with the patient, he did eat a bunch of beets yesterday. Explanation for the black stools. I did we discussed with Dr. Chavez, will stop the Protonix dripwill check H&H's. With him being orthostatic positive with hemoglobin difference of 2 units, will still plan to admit to recheck H&H's. 2249: I spoke with house with Dr. Cedeno, we reviewed the labs his BUN is up,therefore would like to restart the Protonix drip as he is on chronic anticoagulation medicines. This was restarted. Will admit him to PCU. Re-evaluation: stable Disposition discussed with patient/family/significant other: Patient Case discussed with consulting clinician: Gastroenterology, hospitalist This note was generated with [employer] dictation software. It may contain incorrectwords, spelling, and punctuation that were not noted in checking the note beforesigning. Lab Data Attestation: I reviewed the patient's lab results. Labs: Laboratory Results - last 24 hr 10/11/24 21:09 WBC 12.2 H RBC 3.46 L Hgb 11.0 L Hct 31.9 L MCV 92.2 MCH 31.8 MCHC 34.5 RDW Std Deviation 45.6 H RDW Coeff of Marley 13.5 Plt Count 199 MPV 10.3 Immature Gran % (Auto) 0.500 Neut % (Auto) 81.2 H Lymph % (Auto) 11.3 L Spencer % (Auto) 6.9 Eos % (Auto) 0.0 Baso % (Auto) 0.1 Absolute Neuts (auto) 9.9 H Absolute Lymphs (auto) 1.38 Nucleated RBC % 0 PT 24.5 H INR 2.2 APTT 36.8 H Sodium 133 Potassium 4.1 Chloride 94 L Carbon Dioxide 22.4 Anion Gap 17 H BUN 84 H Creatinine 2.22 H Estim Creat Clear Calc 23.57 L Est GFR (MDRD) Non-Af 29 L BUN/Creatinine Ratio 37.7 H Glucose 261 H Calcium 9.4 Discharge Plan Triage Chief Complaint: Dizziness Other Complaint: GI Bleed ED Provider: Fei Easton Dx/Rx/DC Orders Clinical Impression: GI bleed, Chronic anticoagulation, Orthostasis Prescriptions: No Action tamsulosin 0.4 mg capsule 0.4 mg PO DAILY zolpidem [Ambien] 5 mg tablet 5 mg PO QHS PRN (Reason: insomnia) nitroglycerin [Nitrostat] 0.4 mg tablet, sublingual 0.4 mg sublingual Q5-15M PRN (Reason: chest pain) Qty: 25 3RF Rx Instructions: do not exceed 3 doses per episode multivitamin with folic acid 1 TABLET tablet 1 tab PO DAILY insulin detemir U-100 100 unit/mL (3 mL) insulin pen 32 unit SC QHS insulin lispro 100 UNIT/ML cartridge 10 unit SC TID potassium chloride 20 mEq Tablet,Er Particles/Crystals 40 meq PO BID Qty: 120 0RF (DME) True Metrix Glucose Test Strip Strip 1 strip MISCELLANEOUS TID apixaban 5 mg tablet 5 mg PO BID Qty: 180 3RF carvedilol 12.5 mg tablet 12.5 mg PO BID Qty: 180 3RF rosuvastatin 40 mg tablet 40 mg PO DAILY Qty: 90 3RF isosorbide mononitrate 30 mg tablet extended release 24 hr 30 mg PO DAILY Qty: 90 3RF furosemide 40 mg tablet 40 mg PO .COMPLEX Qty: 180 3RF Rx Instructions: 40 mg orally decrease to once daily: May need to increase back to twice daily if SOB, swelling, etc.; Primary Care Provider: Jose Enrique Finney Referrals: Jose Enrique Finney MD [Primary Care Provider] - Print Language: Montenegrin Disposition Disposition: Acute Care Hospital [facility] What to do if you have Problems For any increased pain, shortness of breath, bleeding, nausea or vomiting, chestpain, or any unexpected problems, contact your Primary Care Provider. Call [facility] ([phone]) or report tothe closest Emergency Room. Call 911 if necessary. 10/11/24 9622 Cosigner Signature (if applicable): CC: Dr. Jose Enrique Finney MD ~ Signed [facility]03-13-2025 Discharge summary Author Fei Easton [facility] Note Date/Time October 11, 2024 10: 56pm [facility] Medical Records Department [address] [place] [address] Emergency Department Summary 10/11/24 MR#: [id number] Acct: [id number] Name: JUAN DAVID HERNÁNDEZ Rep #:[id number] : 1940 84 From: Fei Dupree PCP: Dr. Jose Enrique Finney MD Status:RE G ER Location: ED HPI HPI - GI History of Present Illness Chief Complaint: Dizziness Informant: patient and family Narrative Narrative: Patient presents to the ED lightheaded symptoms black stool x 3 today no abdominal pain. Chronic Eliquis history of paroxysmal A-fib. He does have history of CABG AICD. No cough. No syncopal episode. Saw his PCP today, bloodwork performed outpatient. Last Eliquis around 3:30 PM. No history of upper orlower endoscopies in the past. Discharged 3 days ago for acute kidney injury and hypokalemia. He had a follow- up. [facility] Medical History Mixed hyperlipidemia Paroxysmal atrial fibrillation Hypokalemia due to loss of potassium Acute blood loss anemia Upper GI bleed Muscle cramps NSVT (nonsustained ventricular tachycardia) Nonrheumatic mitral valve insufficiency Atherosclerosis of [place] coronary artery of [place] heart without angina pectoris Ischemic cardiomyopathy Essential (primary) hypertension Type 2 diabetes mellitus without complications Home Medications ?Medication ?Instructions ?Recorded ?Last Taken ?Type multivitamin with folic acid 400 1 tab PO DAILY supple ment 04/11/17 Unknown History mcg tablet insulin lispro 100 unit/mL 10 unit subcut TID blood miranda gar 03/17/18 11/12/18 07:00 History subcutaneous cartridge insulin detemir U-100 100 unit/mL 32 unit subcut QHS d iabetes 11/10/20 Unknown History (3 mL) subcutaneous pen tamsulosin 0.4 mg capsule 0.4 mg PO DAILY prostate 07/21 Unknown History zolpidem 5 mg tablet (Ambien) 5 mg PO QHS PRN insomnia 11/10/20 Unknown History apixaban 5 mg tablet 5 mg PO BID Blood thinner #1 80 tabs 02/24/21 Unknown Rx carvedilol 12.5 mg tablet 12.5 mg PO BID Heart rate/bl ood 02/24/21 Unknown Rx pressure #180 tabs nitroglycerin 0.4 mg sublingual 0.4 mg sublingual Q5-1 5M PRN chest 03/22/23 Unknown Rx tablet (Nitrostat) pain #25 tabs isosorbide mononitrate 30 mg 30 mg PO DAILY heart #90 tabs 06/18/24 Unknown Rx tablet,extended release 24 hr rosuvastatin 40 mg tablet 40 mg PO DAILY cholesterol # 90 tabs 06/18/24 Unknown Rx furosemide 40 mg tablet 40 mg PO .COMPLEX diuretic # 180 08/03/24 Unknown Rx tabs potassium chloride 20 mEq 40 meq (2 x 20 mEq) PO BID # 120 10/08/24 Unknown Rx tablet,extended release(part/cryst) tabs blood sugar diagnostic (True 10/11/24 Unknown History Metrix Glucose Test Strip) Allergy/AdvReac Type Severity Reaction Status Date / Time atorvastatin Allergy Severe myalgias, Verified 10/11/24 20:54 tongue swelling captopril Allergy Severe tongue Verified 10/11/24 20:54 swelling rivaroxaban (From Xarelto) Allergy Severe tongue Verified 10/11/24 20:54 swelling glimepiride Allergy Intermediate mouth Verified 10/11/24 20:54 blisters levofloxacin (From Levaquin) Allergy Intermediate leg pain Verified 10/11/24 20:54 dapagliflozin (From Farxiga) Allergy Unknown Rash Verified 10/11/24 20:54 azithromycin (From Zithromax) AdvReac Severe blisters Verified 10/11/24 20:54 metolazone AdvReac Severe Rash/Itchin Verified 10/11/24 20:54 g pravastatin AdvReac Intermediate itching Verified 10/11/24 20:54 Surgical History History of right-sided carotid endarterectomy History of electrophysiologic study History of left heart catheterization Status post mitral valve annuloplasty Hx of CABG (~11/14/09) Social History household members: none Smoking Status: Former smoker how long ago did patient quit smokin years ago alcohol intake: never substance use type: does not use caffeine: No what type of physical activity do you participate in: walking frequency: daily duration: 15-30 minutes/day seatbelt use: always do you feel safe at home: Yes ROS ROS ED Constitutional Constitutional ED: Denies chills, fever(s) or sweats ENT ENT ED: Denies sore throat Cardiovascular Cardiovascular: Denies chest pain, leg edema, palpitations or racing heartbeat Respiratory/Chest Respiratory/Chest: Denies cough, dyspnea or dyspnea on exertion Gastrointestinal Gastrointestinal: Reports melena; Denies abdominal pain, diarrhea, nausea or vomiting Genitourinary Genitourinary ED: Denies dysuria, hematuria or urinary frequency Musculoskeletal Musculoskeletal: Denies back pain, extremity pain or neck pain Integumentary Denies rash or wounds Neurologic Neurologic: Denies headache(s), paresthesias or weakness EXAM Physical Exam Const Vital Signs: 10/11/24 20:53 10/11/24 21:53 10/11/24 21:57 Temperature 98.1 F Temperature Source Oral Pulse Rate 63 Pulse Rate [Lying] 63 Pulse Rate [Sitting (for 1 minute prior to obtaining)] 75 Respiratory Rate 18 Blood Pressure 102/71 Blood Pressure [Lying] 106/62 Blood Pressure [Sitting (for 1 minute prior to obtaining)] 86/55 L Blood Pressure Mean 81 Blood Pressure Mean [Lying] 76 Blood Pressure Mean [Sitting (for 1 minute prior to obtaining)] 65 Pulse Ox 98 Oxygen Delivery Method Room Air Room Air Positive well nourished and well developed General Appearance ED: well developed and NAD HEENT Reports moist mucous membranes normocephalic and atraumatic Eyes General Eye ED: Yes normal appearance of both eyes; Negative for pale conjunctiva Neck full ROM Chest Wall Chest: Negative for tenderness Resp normal respiratory effort and normal air movement Effort and Inspection: symmetric chest movement; Negative for respiratory distress Cardio regular rate, regular rhythm and no murmurs Peripheral Pulses: pulses 2+ throughout GI normal to inspection, nondistended, normoactive bowel sounds and non-tender GI Narrative: Rectal exam: Dark tarry stools liquid, guaiac pending. Palpation: Negative for guarding or rebound tenderness present Extremity normal to inspection General Extremety ED: Negative for edema or tenderness General Extremity: Negative for edema Neuro oriented x3 and no sensory deficits noted Sensorium / Orientation: awake and alert Skin no rashes or lesions noted and no wounds MDM MDM MDM Narrative Medical decision making narrative: Interventions / MDM: Differential diagnosis: Upper GI bleed, chronic anticoagulation, orthostasis Diagnosis considered but do not suspect: N/A My EKG interpretation: Paced rhythm rate of 65, no acute findings. Imaging independently reviewed and interpreted by myself: N/A External documents reviewed: Labs outpatient hemoglobin 11.1, 3 days ago hemoglobin 13.3. BUN 86 creatinine 2.15 today. 3 days ago BUN 27, creatinine 1.85. Test considered but not ordered:N/A ED course: Patient black liquid stools on rectal exam. Evaluation hemoglobin difference of 2 units from 3 days ago. Labs were redrawn to check, Hemoccult sent. IV Protonix ordered. EKG and orthostatics ordered. I spoke with GI Dr. Chavez, will start Protonix drip. Will plan to admit for upper scope tomorrow. 2229: Hemoglobin stable at 11. Orthostatics was positive he is ordered for 1 L of normal saline. Hemoccult returned negative. Further discussion with the patient, he did eat a bunch of beets yesterday. Explanation for the black stools. I did we discussed with Dr. Chavez, will stop the Protonix drip will check H&H's. With him being orthostatic positive with hemoglobin difference of 2 units, will still plan to admit to recheck H&H's. 2249: I spoke with [place] with Dr. Cedeno, we reviewed the labs his BUN is up,therefore would like to restart the Protonix drip as he is on chronic anticoagulation medicines. This was restarted. Will admit him to PCU. Re-evaluation: stable Disposition discussed with patient/family/significant other: Patient Case discussed with consulting clinician: Gastroenterology, hospitalist This note was generated with [employer] Bak[employer] software. It may contain incorrectwords, spelling, and punctuation that were not noted in checking the note beforesigning. Lab Data Attestation: I reviewed the patient's lab results. Labs: Laboratory Results - last 24 hr 10/11/24 21:09 WBC 12.2 H RBC 3.46 L Hgb 11.0 L Hct 31.9 L MCV 92.2 MCH 31.8 MCHC 34.5 RDW Std Deviation 45.6 H RDW Coeff of Marley 13.5 Plt Count 199 MPV 10.3 Immature Gran % (Auto) 0.500 Neut % (Auto) 81.2 H Lymph % (Auto) 11.3 L Spencer % (Auto) 6.9 Eos % (Auto) 0.0 Baso % (Auto) 0.1 Absolute Neuts (auto) 9.9 H Absolute Lymphs (auto) 1.38 Nucleated RBC % 0 PT 24.5 H INR 2.2 APTT 36.8 H Sodium 133 Potassium 4.1 Chloride 94 L Carbon Dioxide 22.4 Anion Gap 17 H BUN 84 H Creatinine 2.22 H Estim Creat Clear Calc 23.57 L Est GFR (MDRD) Non-Af 29 L BUN/Creatinine Ratio 37.7 H Glucose 261 H Calcium 9.4 Discharge Plan Triage Chief Complaint: Dizziness Other Complaint: GI Bleed ED Provider: Fei Easton Dx/Rx/DC Orders Clinical Impression: GI bleed, Chronic anticoagulation, Orthostasis Prescriptions: No Action tamsulosin 0.4 mg capsule 0.4 mg PO DAILY zolpidem [Ambien] 5 mg tablet 5 mg PO QHS PRN (Reason: insomnia) nitroglycerin [Nitrostat] 0.4 mg tablet, sublingual 0.4 mg sublingual Q5-15M PRN (Reason: chest pain) Qty: 25 3RF Rx Instructions: do not exceed 3 doses per episode multivitamin with folic acid 1 TABLET tablet 1 tab PO DAILY insulin detemir U-100 100 unit/mL (3 mL) insulin pen 32 unit SC QHS insulin lispro 100 UNIT/ML cartridge 10 unit SC TID potassium chloride 20 mEq Tablet,Er Particles/Crystals 40 meq PO BID Qty: 120 0RF (DME) True Metrix Glucose Test Strip Strip 1 strip MISCELLANEOUS TID apixaban 5 mg tablet 5 mg PO BID Qty: 180 3RF carvedilol 12.5 mg tablet 12.5 mg PO BID Qty: 180 3RF rosuvastatin 40 mg tablet 40 mg PO DAILY Qty: 90 3RF isosorbide mononitrate 30 mg tablet extended release 24 hr 30 mg PO DAILY Qty: 90 3RF furosemide 40 mg tablet 40 mg PO .COMPLEX Qty: 180 3RF Rx Instructions: 40 mg orally decrease to once daily: May need to increase back to twice daily if SOB, swelling, etc.; Primary Care Provider: Jose Enrique Finney Referrals: Jose Enrique Finney MD [Primary Care Provider] - Print Language: Montenegrin Disposition Disposition: Acute Care Hospital [facility] What to do if you have Problems For any increased pain, shortness of breath, bleeding, nausea or vomiting, chestpain, or any unexpected problems, contact your Primary Care Provider. Call [facility] ([phone]) or report to the closest Emergency Room. Call 911 if necessary. 10/11/242255 <Electronically signed by Fei Dupree> Cosigner Signature (if applicable): CC: Dr. Jose Enrique Finney MD ~ Signed [facility] Work Phone: 1(421) 729-648603-10-2025 Discharge summary [facility] Medical Records Department [address] [place] [address] Instructions for Home/Discharge Instructions 10/08/24 1550 MR#: [id number] Acct: [id number] Name: JUAN DAVID HERNÁNDEZ Rep #:[id number] : 1940 84 From: Bernabe Casey DO PCP: Dr. Jose Enrique Finney MD Status:AD M SOLOMON Discharge Instructions Diet Discharge Diet: 1800 Calorie Control Diet DC O2, CPAP, BIPAP needs Home O2 Discharge instructions: No Dressing / Incision Discharge Activity: Return to Normal Activity Weight Bearing Status: Full weight bearing Follow Up Care Test Results: Test results from this visit will be discussed in further detail at your follow- up appointment, if applicable. Discharge Plan Admission Admit Date/Time: 10/07/24 23:21 Attending Provider: Bernabe Casey Primary Care Provider: Jose Enrique Finney Consulting Providers: Kira Lerma Discharge Orders/Prescriptions Prescriptions: New potassium chloride 20 mEq Tablet,Er Particles/Crystals 40 meq PO BID Qty: 120 0RF Continued tamsulosin 0.4 mg capsule 0.4 mg PO DAILY zolpidem [Ambien] 5 mg tablet 5 mg PO QHS PRN (Reason: insomnia) nitroglycerin [Nitrostat] 0.4 mg tablet, sublingual 0.4 mg sublingual Q5-15M PRN (Reason: chest pain) Qty: 25 3RF Rx Instructions: do not exceed 3 doses per episode multivitamin with folic acid 1 TABLET tablet 1 tab PO DAILY insulin detemir U-100 100 unit/mL (3 mL) insulin pen 32 unit SC QHS insulin lispro 100 UNIT/ML cartridge 10 unit SC TID apixaban 5 mg tablet 5 mg PO BID Qty: 180 3RF carvedilol 12.5 mg tablet 12.5 mg PO BID Qty: 180 3RF rosuvastatin 40 mg tablet 40 mg PO DAILY Qty: 90 3RF isosorbide mononitrate 30 mg tablet extended release 24 hr 30 mg PO DAILY Qty: 90 3RF furosemide 40 mg tablet 40 mg PO .COMPLEX Qty: 180 3RF Rx Instructions: 40 mg orally decrease to once daily: May need to increase back to twice daily if SOB, swelling, etc.; Discontinued cyclobenzaprine 5 mg tablet 5 mg PO TID PRN (Reason: muscle spasm) mirtazapine 15 mg tablet 15 mg PO QHS potassium chloride 20 mEq tablet,ER particles/crystals 20 meq PO BID Qty: 180 3RF Referrals / Follow Up: Jose Enrique Finney MD [Primary Care Provider] - Within 1 Week (get your BMP repeated(lab work)) Disposition Disposition (needs filled in before D/C Order can be placed): Home, Self Care 10/08/24 [facility] CC: Dr. Kira Lerma MD; Dr. Jose Enrique Finney MD ~ Signed [facility]03-10-2025 [facility]03-10-2025 Hospital Discharge instructions Additional Instructions Date of Discharge: 10/08/24[facility] Work Phone: 1(106) 673-136903-10-2025 History and physical note Author Kira Lerma [facility] Note Date/Time October 07, 2024 11:4 9pm [facility] Medical Records Department [address] [place] [address] H&P Exam - Hospitalist 10/07/24 4644 MR#: [id number] Acct: [id number] Name: JUAN DAVID HERNÁNDEZ Rep #:[id number] : 1940 84 From: Kira Lerma MD PCP: Dr. Jose Enrique Finney MD Status:RE G ER Location: ED HPI - General General Date of Admission: 10/07/24 Date of Service: 10/07/24 Chief Complaint: Fatigue, malaise. HPI Narrative The patient is an 84 y/o M w/ PMHx: PAF, HTN, HLD, Diabetes mellitus type II, BPH with obstructive pathology, Anxiety and Depression, CKD stage II per previous GFR trending, CAD/ischemic cardiomyopathy s/p AICD/pacemaker and PCI/CABG 2009, Carotid disease status post right carotid endarterectomy, Valvular Heart Disease who presents to the [facility] ED on 10/07/2024 with history of significant fatigue and general malaise reporting that a couple days previous hetook a single metolazone 2.5 mg thinking that potentially he had been overloadedand this was the reason but he does report that his chronic dyspnea is unchangedand is had no recent URI type symptoms nor any GI symptoms or any chest discomfort prompt eventual ED evaluation to be cautious. Family members and patient do state that eventually he will need his battery changed in the ICD butit is unclear when. Patient denies unfortunately checking his weights daily. He notes he is chronically dyspneic and this is worse with exertion. He does report chronic lower extremity edema which is unchanged. He does report since taking the diuretic he has had notable leg cramping. Workup in the ED included T98 temporal, heart 65, BP 118/76, respiratory rate 14, 98% room air with most recent repeat vitals heart rate 62, BP 123/81, respiratory rate 18, 94% room air, CBC with WC 8.0, he 1 14.1, platelets 196 without marked shift, CMP with sodium 131, potassium 2.9, chloride 88, anion gap 18, BUN/creatinine 27/1.95, GFR 34, glucose 118, alk phos 133 otherwise hepatic profile not marked appearing, troponin initial 46, chest x-ray with no acute cardiopulmonary findings, CT brain with no acute intracranial findings, urinalysis pending upon requested evaluation of patient, delta troponin pending upon request evaluation of patient, EKG with paced rhythm with PVC with no acute evidence of ischemia, rapid SARS COVID/impulsive/ RSV PCR negative. In the ED patient started on 10 mEq IV x 1 K supplementation. [facility] Medical History Mixed hyperlipidemia Paroxysmal atrial fibrillation Hypokalemia due to loss of potassium Acute blood loss anemia Upper GI bleed Muscle cramps NSVT (nonsustained ventricular tachycardia) Nonrheumatic mitral valve insufficiency Atherosclerosis of [place] coronary artery of [place] heart without angina pectoris Ischemic cardiomyopathy Essential (primary) hypertension Type 2 diabetes mellitus without complications Home Medications ?Medication ?Instructions ?Recorded ?Last Taken ?Type multivitamin with folic acid 400 1 tab PO DAILY supple ment 04/11/17 Unknown History mcg tablet insulin lispro 100 unit/mL 10 unit subcut TID blood miranda gar 03/17/18 11/12/18 07:00 History subcutaneous cartridge insulin detemir U-100 100 unit/mL 32 unit subcut QHS d iabetes 11/10/20 Unknown History (3 mL) subcutaneous pen tamsulosin 0.4 mg capsule 0.4 mg PO DAILY 11/10/20 Unk nown History zolpidem 5 mg tablet (Ambien) 5 mg PO QHS PRN insomnia 11/10/20 Unknown History apixaban 5 mg tablet 5 mg PO BID #180 tabs Unknown Rx carvedilol 12.5 mg tablet 12.5 mg PO BID #180 tabs Unknown Rx cyclobenzaprine 5 mg tablet 5 mg PO TID PRN muscle spa sm 02/16/23 Unknown History mirtazapine 15 mg tablet 15 mg PO QHS 02/16/23 Unknow n History nitroglycerin 0.4 mg sublingual 0.4 mg sublingual Q5-1 5M PRN chest 03/22/23 Unknown Rx tablet (Nitrostat) pain #25 tabs potassium chloride 20 mEq 20 meq PO BID supplement #18 0 tabs 04/16/24 Unknown Rx tablet,extended release(part/cryst) isosorbide mononitrate 30 mg 30 mg PO DAILY #90 tabs 1 08/18/23 Unknown Rx tablet,extended release 24 hr rosuvastatin 40 mg tablet 40 mg PO DAILY #90 tabs 06/01 03/24 Unknown Rx furosemide 40 mg tablet 40 mg PO .COMPLEX diuretic # 180 08/03/24 Unknown Rx tabs Allergy/AdvReac Type Severity Reaction Status Date / Time atorvastatin Allergy Severe myalgias, Verified 10/07/24 20:06 tongue swelling captopril Allergy Severe tongue Verified 10/07/24 20:06 swelling rivaroxaban (From Xarelto) Allergy Severe tongue Verified 10/07/24 20:06 swelling glimepiride Allergy Intermediate mouth Verified 10/07/24 20:06 blisters levofloxacin (From Levaquin) Allergy Intermediate leg pain Verified 10/07/24 20:06 dapagliflozin (From Farxiga) Allergy Unknown Rash Verified 10/07/24 20:06 azithromycin (From Zithromax) AdvReac Severe blisters Verified 10/07/24 20:06 metolazone AdvReac Severe Rash/Itchin Verified 10/07/24 20:06 g pravastatin AdvReac Intermediate itching Verified 10/07/24 20:06 other (Patient states he cannot recall any medical history in his mother or father and is certain there was no marked cardiac history of note.) Surgical History History of right-sided carotid endarterectomy History of electrophysiologic study History of left heart catheterization Status post mitral valve annuloplasty Hx of CABG (~11/14/09) Social History household members: none Smoking Status: Former smoker how long ago did patient quit smokin years ago alcohol intake: never substance use type: does not use caffeine: No what type of physical activity do you participate in: walking frequency: daily duration: 15-30 minutes/day seatbelt use: always do you feel safe at home: Yes ROS ROS Narrative Admission Review of Systems: CONSTITUTIONAL: No weight loss, fever, chills, + weakness or fatigue. HEENT: Eyes: No visual loss, blurred vision, double vision or yellow sclerae. Ears, Nose, Throat: No hearing loss, sneezing, congestion, runny nose or sore throat. SKIN: No rash or itching, lesions, wounds. CARDIOVASCULAR: + Chronic peripheral edema. No chest pain, chest pressure or chest discomfort, palpitations, orthopnea, syncopal events. RESPIRATORY: + Chronic dyspnea, worse with exertion. No marked productive sputum, wheezing, hemoptysis. GASTROINTESTINAL: No anorexia, nausea, vomiting or diarrhea, abdominal pain, melena, BRBPR. GENITOURINARY: + BPH with chronic frequency. No dysuria, urgency or retention. NEUROLOGICAL: No headache, dizziness, syncope, paralysis, ataxia, numbness or tingling in the extremities, focal weakness, change in bowel or bladder control,seizure. MUSCULOSKELETAL: + muscle, back pain, joint pain or stiffness. HEMATOLOGIC: No anemia. + Easy bleeding/bruising. LYMPHATICS: No enlarged nodes. No history of splenectomy. PSYCHIATRIC: No history of depression or anxiety. ENDOCRINOLOGIC: No reports of sweating, cold or heat intolerance. No polyuria orpolydipsia. ALLERGIES: No history of asthma, hives, eczema or rhinitis. Vital Signs Vital Signs Vital Signs: 10/07/24 20:06 10/07/24 20:58 10/07/24 22:06 Temperature 98 F Temperature Source Temporal Pulse Rate 65 62 Respiratory Rate 14 18 Respiratory Effort Normal Non-Labored Respiratory Pattern Normal Blood Pressure 118/76 123/81 H Blood Pressure Mean 90 95 Pulse Ox 98 94 Oxygen Delivery Method Room Air Room Air 10/07/24 23:11 Temperature 98.0 F Temperature Source Pulse Rate 61 Respiratory Rate 18 Respiratory Effort Respiratory Pattern Blood Pressure 110/71 Blood Pressure Mean 84 Pulse Ox 96 Oxygen Delivery Method Weight Weight: 149 lb 11.102 oz Body Mass Index (BMI) 23.4 Physical Exam Narrative Physical Examination: General: Awake, alert, oriented x 3 and cooperative, seated upright in bed in noapparent distress, complaining of lower extremity cramping. Skin: Normal color, normal turgor, no icterus, no cyanosis except significant bilateral lower extremity venous stasis skin changes, occasional stage ecchymoses. HEENT: AT/NC, EOMI, PERRLA, dry MM, no carotid bruits or JVD noted. Lungs: Mildly diminished, greater bases, appropriate effort, no rales, ronchi orwheezing. Heart: Paced; no gallop, rub audible, + SM. Abdomen: Soft, NTTP, ND, mildly hyperactive BS, no appreciated HSM. Extremities: No cyanosis, no clubbing, see skin, chronic distal edema unchanged he notes. Neurological: Patient awake, alert, oriented as noted, cognitive function intact; pupils equally reactive to light and accommodation, cranial nerves grossly normal, moving all 4 extremities, no focal deficits, strength moderatelyglobally decreased. Psychiatric: Affect appears fatigued otherwise normal, no acute evidence of depressive or anxiety feelings. Results Lab / Micro Data 10/07/24 20:48 10/07/24 20:48 Labs: Laboratory Results - last 24 hr 10/07/24 20:48: WBC 8.0, RBC 4.50 L, Hgb 14.1, Hct 40.1, MCV 89.1, MCH 31.3, MCHC 35.2, RDW Std Deviation 42.5, RDW Coeff of Mar[place] 13.0, Plt Count 196, MPV 9.9, Immature Gran % (Auto) 0.400, Neut % (Auto) 68.0, Lymph % (Auto) 18.6 L, Spencer % (Auto) 11.1 H, Eos % (Auto) 1.5, Baso % (Auto) 0.4, Absolute Neuts (auto) 5.5, Absolute Lymphs (auto) 1.49, Nucleated RBC % 0, Sodium 131 L, Potassium 2.9L, Chloride 88 L, Carbon Dioxide 26.0, Anion Gap 18 H, BUN 27 H, Creatinine 1.95H, Estim Creat Clear Calc 26.84 L, Est GFR (MDRD) Non-Af 34 L, BUN/Creatinine Ratio 13.9, Glucose 118 H, Calcium 9.6, Total Bilirubin 1.04, AST 35, ALT 36, Alkaline Phosphatase 133 H, Troponin T High Sens 46 H, Total Protein 7.4, Albumin4.3, Globulin 3.1, Albumin/Globulin Ratio 1.4 10/07/24 22:12: Urine Color Straw, Urine Clarity Clear, Urine pH 7.0, Ur Specific [place] 1.005, Urine Protein 100 H, Urine Glucose (UA) Normal, Urine Ketones Negative, Urine Occult Blood 25 H, Urine Nitrite Negative, Urine Bilirubin Negative, Urine Urobilinogen Normal, Ur Leukocyte Esterase Negative, Urine RBC 0-5 SEEN, Urine WBC 0-5 SEEN, Ur Squamous Epith Cells 0 SEEN, Urine Bacteria 0 SEEN, Urine Mucus 0 SEEN 10/07/24 22:45: Troponin T Hi Sens 2 Hr 46 H Micro: Microbiology 10/07/24 20:48 Mucosa - Nose SARS-CoV-2, Influenza & RSV (PCR) - Final Rhythm Strip Rhythm Strip: paced Rate: 65 Ectopy: PVC(s) Imaging Radiology Impression Brain CT 10/07/24 20:27 IMPRESSION: No acute intracranial abnormality. Reading Location: [facility] Chest X-Ray 10/07/24 21:10 IMPRESSION: No acute airspace abnormality. Reading Location: [facility] Assessment & Plan Assessment/Plan (1) LISA (acute kidney injury): (2) Acute hypokalemia: PLAN: Plan The patient is an 84 y/o M w/ PMHx: PAF, HTN, HLD, Diabetes mellitus type II, BPH with obstructive pathology, Anxiety and Depression, CKD stage II per previous GFR trending, CAD/ischemic cardiomyopathy s/p AICD/pacemaker and PCI aswell as CABG 2009, Carotid disease status post right carotid endarterectomy, Valvular Heart Disease who presents to the [facility] ED on 10/07/2024 with history of significant fatigue and general malaise reporting that a couple days previous hetook a single metolazone 2.5 mg thinking that potentially he had been overloadedand this was the reason but he does report that his chronic dyspnea is unchangedand is had no recent URI type symptoms nor any GI symptoms or any chest discomfort prompt eventual ED evaluation to be cautious. #1. Fatigue, malaise, Adult FTT: Will admit to [facility], will maintain on telemetry monitoring given indeterminate enzyme and continue to trend but low suspicion, will continue supplementation of potassium with initial IV supplementation started in the ED, will add oral regimen as well as noted, maintain on fall precautions, will add procalcitonin, urinalysis pending, interrogate device, PT/OT/case management consulted for discharge planning. #2. Indeterminate cardiac enzyme: EKG with paced rhythm with PVC with no acute evidence of ischemia, CXR w/ no acute cardiopulmonary findings, initial trop 46 with repeat delta 2-hour pending upon evaluation. Will place on a monitored bed to assure no acute myocardial infarction with serial cardiac enzymes and EKGs. Will supplement potassium and obtain magnesium level. If enzymes rise significantly with involve cardiology, obtain echocardiogram. Continued on NOACtherapy. #3. Acute kidney injury on CKD stage II per previous GFR trend: Secondary to acute presentation, decreased oral intake/dehydration. Admission BUN/Cr 27/1.95,GFR 34, prior baseline creatinine noted to be primarily 1.0-1.2. Will hydrate, hold nephrotoxic medications and repeat chemistry in AM. If no improvement wouldplan further assessment. #4. Hypokalemia: Admission K+ 2.9, magnesium level requested, supplementation given administered in the ED however will need to replete further and will add oral regimen also, repeat level in AM. #5. Hyponatremia, hypochloremia, suspected hypovolemic component secondary to diuretics including recent addition of metolazone x 1: Admission sodium 131, chloride 88, will very judiciously hydration, repeat CMP in AM. #6. CAD/ischemic cardiomyopathy, VT: Status post CABG 2009 9LIMA to LAD, SVG to1st CFX & 2nd CFX), PCI as well as AICD/pacemaker given significantly reduced EFmost recently noted 01/2024 LVEF 20%, we will continue apixaban, statin therapy, Coreg, not on DAPHNIE/ARB. Requesting device interrogation. #7. Valvular heart disease: Status post mitral valve annuloplasty, most recent echocardiogram noted 02/15/2024 with mildly dilated LV, LVEF 20%, severe global hypokinesis LV, evidence of diastolic dysfunction, mild biatrial dilatation, status post mitral valve repair, mild MVI, mild aortic stenosis. #8. Carotid disease: Status post right carotid endarterectomy, following with vascular surgeon Dr. Ly, continue apixaban, statin, hypertensive regimen, diabetic regimen as noted. #9. Diabetes mellitus type II: Will continue home insulin regimen, ADA diet, accu checks w/ ISS. #10. Hypertension: Continue home regimen including Coreg, isosorbide, temporally holding diuretics, add back once clinically appropriate, PRN hydralazine. #11. Hyperlipidemia: We will continue patient on statin therapy. #12. PAF: We will continue patient home Coreg and Eliquis regimen with adjustments for acute kidney injury as needed. #13. Anxiety and depression: We will continue patient home mirtazapine regimen with alteration as needed/hold as needed for renal function alteration. #14. BPH with obstructive pathology: We will continue patient on Flomax regimen. #15. DVT prophylaxis: Will continue apixaban with adjustments for acute kidney injury needed. #16. CODE status: Patient QUINN is his son and living will is currently in place. Discussed CODE status at length including difference between FULL code, DNR-CCA and DNR-CC status. Following discussions about the differences in these status, requested DNR-CCA, no intubation. Examples were given and CODE STATUS decision was confirmed. His grandson is present and he and himself both deny ever having discussions with his son who is his healthcare power of contract attorney about these items thus recommended that they have an open form discussion. Advanced Care Planning Face to Face Time: 16 minutes. Charges/Coding Visit Charges Inpatient E&M: 10317 Init Hosp L3 Procedures Hospitalists Procedures: 01575 Advncd Care Plan 30 Min 10/07/24 2349 <Electronically signed by Kira Lerma MD> Cosigner Signature (if applicable): CC: Dr. Kira Lerma MD; Dr. Jose Enrique Finney MD~ Signed [facility] Work Phone: 1(319) 368-602403-10-2025 Evaluation note* Diagnosis Onset Date Resolution Status Admit Date Acute hypokalemia inactive October 072024 11:21pm LISA (acute kidney injury) inactive October 07, 2024 11:21pm Declining functional status inactive October 07, 2024 11:21pm Chronic anticoagulation acute M 2024 11:32pm Elevated BUN acute October 11, 2024 11:32pm GI bleed acute October 11 11:32pm Melanotic stools acute October 112024 11:32pm Orthostasis acute October 11, 025 11:32pm Severe hypotension acute October 11, 2024 11:32pm Chronic kidney disease (CKD) , stage II (mild) chronic October 11, 2024 11:32pm LISA (acute kidney injury) inactive October 11, 2024 11:32pm Gastric ulcer acute October 17, 2024 1:36pm Upper GI bleed acute September 1:36pm Aortic valve stenosis, nonrheumatic acute November 01, 2024 10:23am ICD (implantable cardioverter-defibrillator) in place acute November 01, 2024 10:23am Atherosclerosis of [place] coronary artery of [place] heart without angina chronic November 01, 2024 10:23am Essential (primary) hypertension chr onic November 01, 2024 10:23am 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, chronic November 01 10:23am Ischemic cardiomyopathy chronic A pril 2024 10:23am 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 chronic November 01, 2024 10:23am Paroxysmal atrial fibrillation chron ic November 01, 2024 10:23am [facility] Work Phone: [phone]) 398-256003-10-2025 Evaluation note* Diagnosis Onset Date Resolution Status Admit Date Acute hypokalemia inactive October 072024 11:21pm LISA (acute kidney injury) inactive October 07, 2024 11:21pm Declining functional status inactive October 07, 2024 11:21pm Chronic anticoagulation acute M 2024 11:32pm Elevated BUN acute October 11, 2024 11:32pm GI bleed acute October 11 11:32pm Melanotic stools acute October 112024 11:32pm Orthostasis acute October 11 11:32pm Severe hypotension acute October 11, 2024 11:32pm Chronic kidney disease (CKD) , stage II (mild) chronic October 11, 2024 11:32pm LISA (acute kidney injury) inactive October 11, 2024 11:32pm Gastric ulcer acute October 17, 2024 1:36pm Upper GI bleed acute September 1:36pm Aortic valve stenosis, nonrheumatic acute November 01, 2024 10:23am ICD (implantable cardioverter-defibrillator) in place acute November 01, 2024 10:23am Atherosclerosis of [place] coronary artery of [place] heart without angina chronic November 01, 2024 10:23am Essential (primary) hypertension chr onic November 01, 2024 10:23am 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, chronic November 01 10:23am Ischemic cardiomyopathy chronic A pril 2024 10:23am 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 chronic November 01, 2024 10:23am Paroxysmal atrial fibrillation chron ic November 01, 2024 10:23am Gastric ulcer acute January 09, 2025 12:10pm [facility] Work Phone: [phone] Evaluation note* Diagnosis Onset Date Resolution Status Admit Date Acute hypokalemia inactive October 072024 11:21pm LISA (acute kidney injury) inactive October 07, 2024 11:21pm Declining functional status inactive March 9th, 2025 11:21pm Chronic anticoagulation acute M arch 2024 11:32pm Elevated BUN acute October 11, 2024 11:32pm GI bleed acute October 11 11:32pm Melanotic stools acute October 112024 11:32pm Orthostasis acute October 11 11:32pm Severe hypotension acute October 11, 2024 11:32pm Chronic kidney disease (CKD) , stage II (mild) chronic October 11, 2024 11:32pm LISA (acute kidney injury) inactive October 11, 2024 11:32pm Gastric ulcer acute October 17, 2024 1:36pm Upper GI bleed acute September 1:36pm Aortic valve stenosis, nonrheumatic acute November 01, 2024 10:23am ICD (implantable cardioverter-defibrillator) in place acute November 01, 2024 10:23am Atherosclerosis of [place] coronary artery of [place] heart without angina chronic November 01, 2024 10:23am Essential (primary) hypertension chr onic November 01, 2024 10:23am 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, chronic November 01 10:23am Ischemic cardiomyopathy chronic A pril 2024 10:23am 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 chronic November 01, 2024 10:23am Paroxysmal atrial fibrillation chron ic November 01, 2024 10:23am Gastric ulcer acute January 09, 2025 12:10pm Left knee DJD acute January 28, 2025 1:39pm [facility] Work Phone: [phone]) 303-858803-10-2025 Evaluation note* Diagnosis Onset Date Resolution Status Admit Date Acute hypokalemia inactive October 072024 11:21pm LISA (acute kidney injury) inactive October 07, 2024 11:21pm Declining functional status inactive October 07, 2024 11:21pm Chronic anticoagulation acute arch 2024 11:32pm Elevated BUN acute October 11, 2024 11:32pm GI bleed acute October 11 11:32pm Melanotic stools acute October 112024 11:32pm Orthostasis acute October 11 11:32pm Severe hypotension acute October 11, 2024 11:32pm Chronic kidney disease (CKD) , stage II (mild) chronic October 11, 2024 11:32pm LISA (acute kidney injury) inactive October 11, 2024 11:32pm Gastric ulcer acute October 17, 2024 1:36pm Upper GI bleed acute September 1:36pm Aortic valve stenosis, nonrheumatic acute November 01, 2024 10:23am ICD (implantable cardioverter-defibrillator) in place acute November 01, 2024 10:23am Atherosclerosis of [place] coronary artery of [place] heart without angina chronic November 01, 2024 10:23am Essential (primary) hypertension chr onic November 01, 2024 10:23am 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, chronic November 01 10:23am Ischemic cardiomyopathy chronic A pril 2024 10:23am 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 chronic November 01, 2024 10:23am Paroxysmal atrial fibrillation chron ic November 01, 2024 10:23am Gastric ulcer acute January 09, 2025 12:10pm Left knee DJD acute January 28, 2025 1:39pm Aortic valve stenosis, nonrheumatic acute January 30, 2025 11:26am ICD (implantable cardioverter-defibrillator) in place acute January 30, 2025 11:26am Atherosclerosis of [place] coronary artery of [place] heart without angina chronic January 30, 2025 11:26am Essential (primary) hypertension chr onic January 30, 2025 11:26am 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, chronic January 30 11:26am Ischemic cardiomyopathy chronic J maya 2024 11:26am 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 chronic January 30, 2025 11:26am Paroxysmal atrial fibrillation chron ic January 30, 2025 11:26am [facility] Work Phone: [phone] 445-610703-10-2025 Discharge summary Author Catracho Donohue [facility] Note Date/Time October 07, 2024 11:1 6pm [facility] Medical Records Department [address] [place] [address] Emergency Department Summary 10/07/24 MR#: [id number] Acct: [id number] Name: JUAN DAVID HERNÁNDEZ Rep #:[id number] : 1940 84 From: Catracho Donohue MD PCP: Dr. Jose Enrique Finney MD Status:RE G ER Location: ED HPI History of Present Illness Chief Complaint: Weakness Informant: patient and family Narrative Narrative: 84-year-old male is brought in by family members states he is a little disoriented today, and he has not been feeling well. He states it is mainly been today, but he states that a couple days ago he took a single metolazone 2.5mg because I thought it would make me feel better. He states he has chronic dyspnea that is no different than usual right now. Denies a cough, nausea, vomiting, diarrhea. He denies any chest pains or discomfort. He states periodically he looked his pacemaker/defibrillator up to my sample checker and today he did it and it said that there was a problem. He states a couple days ago when he did it there were no issues. He did not receive a phone call from anyone about a dysrhythmia, however the grandson states that when he and other family members were calling him to check on him today he was not responding to their phone calls. He denies having any pain at the site of his AICD. He states he does know that the battery is going to have to be replaced at some point but he is not sure when. [facility] Medical History Mixed hyperlipidemia Paroxysmal atrial fibrillation Hypokalemia due to loss of potassium Acute blood loss anemia Upper GI bleed Muscle cramps NSVT (nonsustained ventricular tachycardia) Nonrheumatic mitral valve insufficiency Atherosclerosis of [place] coronary artery of [place] heart without angina pectoris Ischemic cardiomyopathy Essential (primary) hypertension Type 2 diabetes mellitus without complications Home Medications ?Medication ?Instructions ?Recorded ?Last Taken ?Type multivitamin with folic acid 400 1 tab PO DAILY supple ment 04/11/17 Unknown History mcg tablet insulin lispro 100 unit/mL 10 unit subcut TID blood miranda gar 03/17/18 11/12/18 07:00 History subcutaneous cartridge insulin detemir U-100 100 unit/mL 32 unit subcut QHS d iabetes 11/10/20 Unknown History (3 mL) subcutaneous pen tamsulosin 0.4 mg capsule 0.4 mg PO DAILY 11/10/20 Unk nown History zolpidem 5 mg tablet (Ambien) 5 mg PO QHS PRN insomnia 11/10/20 Unknown History apixaban 5 mg tablet 5 mg PO BID #180 tabs Unknown Rx carvedilol 12.5 mg tablet 12.5 mg PO BID #180 tabs Unknown Rx cyclobenzaprine 5 mg tablet 5 mg PO TID PRN muscle spa sm 02/16/23 Unknown History mirtazapine 15 mg tablet 15 mg PO QHS 02/16/23 Unknow n History nitroglycerin 0.4 mg sublingual 0.4 mg sublingual Q5-1 5M PRN chest 03/22/23 Unknown Rx tablet (Nitrostat) pain #25 tabs potassium chloride 20 mEq 20 meq PO BID supplement #18 0 tabs 04/16/24 Unknown Rx tablet,extended release(part/cryst) isosorbide mononitrate 30 mg 30 mg PO DAILY #90 tabs 1 08/18/23 Unknown Rx tablet,extended release 24 hr rosuvastatin 40 mg tablet 40 mg PO DAILY #90 tabs 06/01 03/24 Unknown Rx furosemide 40 mg tablet 40 mg PO .COMPLEX diuretic # 180 08/03/24 Unknown Rx tabs Allergy/AdvReac Type Severity Reaction Status Date / Time atorvastatin Allergy Severe myalgias, Verified 10/07/24 20:06 tongue swelling captopril Allergy Severe tongue Verified 10/07/24 20:06 swelling rivaroxaban (From Xarelto) Allergy Severe tongue Verified 10/07/24 20:06 swelling glimepiride Allergy Intermediate mouth Verified 10/07/24 20:06 blisters levofloxacin (From Levaquin) Allergy Intermediate leg pain Verified 10/07/24 20:06 dapagliflozin (From Farxiga) Allergy Unknown Rash Verified 10/07/24 20:06 azithromycin (From Zithromax) AdvReac Severe blisters Verified 10/07/24 20:06 metolazone AdvReac Severe Rash/Itchin Verified 10/07/24 20:06 g pravastatin AdvReac Intermediate itching Verified 10/07/24 20:06 Surgical History History of right-sided carotid endarterectomy History of electrophysiologic study History of left heart catheterization Status post mitral valve annuloplasty Hx of CABG (~11/14/09) Social History Smoking Status: Former smoker how long ago did patient quit smokin years ago alcohol intake: never substance use type: does not use caffeine: No what type of physical activity do you participate in: walking frequency: daily duration: 15-30 minutes/day seatbelt use: always do you feel safe at home: Yes ROS ROS ED Constitutional Constitutional ED: Reports fatigue and malaise; Denies chills or fever(s) Eyes Eyes: Denies change in vision or diplopia ENT ENT ED: Denies rhinorrhea or sore throat Cardiovascular Cardiovascular: Denies chest pain, orthopnea or palpitations Respiratory/Chest Respiratory/Chest: Reports dyspnea and dyspnea on exertion; Denies cough or orthopnea Gastrointestinal Gastrointestinal: Denies abdominal pain, diarrhea, nausea or vomiting Genitourinary Genitourinary ED: Denies dysuria or hematuria Musculoskeletal Musculoskeletal: Denies back pain or neck pain Integumentary Denies abscess or rash Neurologic Neurologic: Denies headache(s), paresthesias or weakness Psychiatric Psychiatric: Denies anxiety or suicidal thoughts EXAM Physical Exam Const Vital Signs: 10/07/24 20:06 10/07/24 20:58 10/07/24 22:06 Temperature 98 F Temperature Source Temporal Pulse Rate 65 62 Respiratory Rate 14 18 Respiratory Effort Normal Non-Labored Respiratory Pattern Normal Blood Pressure 118/76 123/81 H Blood Pressure Mean 90 95 Pulse Ox 98 94 Oxygen Delivery Method Room Air Room Air 10/07/24 23:11 Temperature 98.0 F Temperature Source Pulse Rate 61 Respiratory Rate 18 Respiratory Effort Respiratory Pattern Blood Pressure 110/71 Blood Pressure Mean 84 Pulse Ox 96 Oxygen Delivery Method Positive well nourished, well developed and cachectic General Appearance ED: well developed, cachectic and NAD Nutritional Appearance: cachectic HEENT Reports moist mucous membranes normocephalic and atraumatic Eyes PERRL and EOMs intact bilaterally Neck full ROM and supple Chest Wall inspection of chest normal and palpation of chest normal Chest Narrative: AICD site benign Resp normal respiratory effort and clear to auscultation bilaterally Cardio regular rate and regular rhythm GI non-tender and non-distended GI Narrative: No palpable pulsatile mass Auscultation: normoactive bowel sounds Palpation: soft Back/Spine no CVA tenderness General Back: other FROM Extremity normal to inspection General Extremety ED: Yes edema; Negative for pulses abnormal or tenderness General Extremity: edema bilateral lower extremity Details: mild (Symmetric, with changes of chronic stasis dermatitis); Negative for pulses abnormal Neuro oriented x3, CN's II-XII intact bilaterally and no sensory deficits noted Sensorium / Orientation: awake and alert Motor Exam: general weakness Psych mental status grossly normal Skin no rashes or lesions noted and no wounds MDM MDM MDM Narrative Medical decision making narrative: Elderly gentleman with generalized weakness, leg cramps, disorientation, broad workup obtained including CT of the head which is normal/negative for any acute on my interpretation, chest x-ray 1 view which is negative for pneumonia interpretation, a COVID/flu swab which is negative, labs, EKG which shows probable underlying A- fib with a paced rhythm, and we checked his device. Event Marketing Specialist called us and said that his device is checking out fine and the monitor that he uses at home to check his device had an error. I reassured him about that. His labs show LISA along with hypokalemia, the hypokalemia is probably making him feel poorly. He is on Lasix as well as metolazone, presumably because of edema in his legs and/or his ischemic cardiomyopathy, and he is already on twice daily oral potassium supplementation at home. Given thisI think he would benefit from being admitted overnight to replace his potassium parenterally which we started in the ED. He lives alone and is in agreement with that. History & Record Review Discussion w/independent historian: Patient and Family Lab Data Attestation: I reviewed the patient's lab results. Labs: Laboratory Results - last 24 hr 10/07/24 10/07/24 10/07/24 20:48 22:12 22:45 WBC 8.0 RBC 4.50 L Hgb 14.1 Hct 40.1 MCV 89.1 MCH 31.3 MCHC 35.2 RDW Std Deviation 42.5 RDW Coeff of Marley 13.0 Plt Count 196 MPV 9.9 Immature Gran % (Auto) 0.400 Neut % (Auto) 68.0 Lymph % (Auto) 18.6 L Spencer % (Auto) 11.1 H Eos % (Auto) 1.5 Baso % (Auto) 0.4 Absolute Neuts (auto) 5.5 Absolute Lymphs (auto) 1.49 Nucleated RBC % 0 Sodium 131 L Potassium 2.9 L Chloride 88 L Carbon Dioxide 26.0 Anion Gap 18 H BUN 27 H Creatinine 1.95 H Estim Creat Clear Calc 26.84 L Est GFR (MDRD) Non-Af 34 L BUN/Creatinine Ratio 13.9 Glucose 118 H Calcium 9.6 Total Bilirubin 1.04 AST 35 ALT 36 Alkaline Phosphatase 133 H Troponin T High Sens 46 H Troponin T Hi Sens 2 Hr 46 H Total Protein 7.4 Albumin 4.3 Globulin 3.1 Albumin/Globulin Ratio 1.4 Urine Color Straw Urine Clarity Clear Urine pH 7.0 Ur Specific [place] 1.005 Urine Protein 100 H Urine Glucose (UA) Normal Urine Ketones Negative Urine Occult Blood 25 H Urine Nitrite Negative Urine Bilirubin Negative Urine Urobilinogen Normal Ur Leukocyte Esterase Negative Urine RBC 0-5 SEEN Urine WBC 0-5 SEEN Ur Squamous Epith Cells 0 SEEN Urine Bacteria 0 SEEN Urine Mucus 0 SEEN Radiography Diagnostic Testing: Clinical Impression(s) from Imaging Studies Brain CT 10/07/24 20:27 IMPRESSION: No acute intracranial abnormality. [facility] [employer] Chest X-Ray 10/07/24 21:10 IMPRESSION: No acute airspace abnormality. [facility] [employer] Rhythm Strip Rhythm Strip: paced Rate: 65 Ectopy: PVC(s) EKG Initial EKG: Attestation: I personally reviewed and interpreted this EKG as follows: Interpretation: No Acute Injury Pattern and Paced Prior EKG tracings: available for review Prior: Unchanged Management Discussion w/another healthcare provider: Hospitalist Discharge Plan Dx/Rx/DC Orders Clinical Impression: Acute hypokalemia, LISA (acute kidney injury), Disorientation, Declining functional status Disposition Disposition: Acute Care Hospital [facility] What to do if you have Problems For any increased pain, shortness of breath, bleeding, nausea or vomiting, chestpain, or any unexpected problems, contact your Primary Care Provider. Call [facility] ([phone]) or report to the closest Emergency Room. Call 911 if necessary. 10/07/24 6501 <Electronically signed by Catracho Donohue MD> Cosigner Signature (if applicable): CC: Dr. Jose Enrique Finney MD ~ Signed [facility] Work Phone: [phone] 264-298903-09-2025 History and physical note [facility] Medical Records Department [address] [place] [address] H&P Exam - Hospitalist 10/07/24 2317 MR#: [id number] Acct: [id number] Name: JUAN DAVID HERNÁNDEZ Rep #:[id number] : 1940 84 From: Kira Lerma MD PCP: Dr. Jose Enrique Finney MD Status:RE G ER Location: ED HPI - General General Date of Admission: 10/07/24 Date of Service: 10/07/24 Chief Complaint: Fatigue, malaise. HPI Narrative The patient is an 84 y/o M w/ PMHx: PAF, HTN, HLD, Diabetes mellitus type II, BPH with obstructive pathology, Anxiety and Depression, CKD stage II per previous GFR trending, CAD/ischemic cardiomyopathy s/p AICD/pacemaker and PCI/CABG 2009, Carotid disease status post right carotid endarterectomy, Va lvular Heart Disease who presents to the [facility] ED on 10/07/2024 with history of significant fatigue andgeneral malaise reporting that a couple days previous hetook a single metolazone 2.5 mg thinking that potentially he had been overloadedand this was the reason but he does report that his chronic dyspnea is unchangedand is had no recent URI type symptoms nor any GI symptoms or any chest discomfort prompt eventual ED evaluation to be cautious. Family members and patient do state that eventually hewill need his battery changed in the ICD butit is unclear when. Patient denies unfortunately checking his weights daily. He notes he is chronically dyspneic and this is worse with exertion. He does re port chronic lower extremity edema which is unchanged. He does report since taking the diuretic he has had notable leg cramping. Workup in the ED included T98 temporal, heart 65, BP 118/76, respiratory rate 14, 98% room air with most recent repeat vitals heart rate 62, BP 123/81, respiratory rate 18, 94% room air, CBC with WC 8.0, he 1 14.1, platelets 196 without marked shift, CMP with sodium 131, potassium 2.9, chloride 88, anion gap 18, BUN/creatinine 27/1.95, GFR 34, glucose 118, alk phos 133 otherwise hepatic profile not marked appearing, troponin initial 46, chest x-ray with no acute cardiopulmonary findings, CT brain with no acute intracranial findings, urinalysis pending upon requested evaluation of patient, delta troponin pending upon request evaluation of patient, EKG with paced rhythm with PVC with no acute evidence of ischemia, rapid SARS COVID/impulsive/ RSV PCR negative. Inthe ED patient started on 10 mEq IV x 1 K supplementation. PFSH Medical History Mixed hyperlipidemia Paroxysmal atrial fibrillation Hypokalemia due to loss of potassium Acute blood loss anemia Upper GI bleed Muscle cramps NSVT (nonsustained ventricular tachycardia) Nonrheumatic mitral valve insufficiency Atherosclerosis of [place] coronary artery of [place] heart without angina pectoris Ischemic cardiomyopathy Essential (primary) hypertension Type 2 diabetes mellitus without complications Home Medications ?Medication ?Instructions ?Recorded ?Last Taken ?Type multivitamin with folic acid 400 1 tab PO DAILY supple ment 04/11/17 Unknown History mcg tablet insulin lispro 100 unit/mL 10 unit subcut TID blood miranda gar 03/17/18 11/12/18 07:00 History subcutaneous cartridge insulin detemir U-100 100 unit/mL 32 unit subcut QHS d iabetes 11/10/20 Unknown History (3 mL) subcutaneous pen tamsulosin 0.4 mg capsule 0.4 mg PO DAILY 11/10/20 Unk nown History zolpidem 5 mg tablet (Ambien) 5 mg PO QHS PRN insomnia 11/10/20 Unknown History apixaban 5 mg tablet 5 mg PO BID #180 tabs Unknown Rx carvedilol 12.5 mg tablet 12.5 mg PO BID #180 tabs Unknown Rx cyclobenzaprine 5 mg tablet 5 mg PO TID PRN muscle spa sm 02/16/23 Unknown History mirtazapine 15 mg tablet 15 mg PO QHS 02/16/23 Unknow n History nitroglycerin 0.4 mg sublingual 0.4 mg sublingual Q5-1 5M PRN chest 03/22/23 Unknown Rx tablet (Nitrostat) pain #25 tabs potassium chloride 20 mEq 20 meq PO BID supplement #18 0 tabs 04/16/24 Unknown Rx tablet,extended release(part/cryst) isosorbide mononitrate 30 mg 30 mg PO DAILY #90 tabs 1 08/18/23 Unknown Rx tablet,extended release 24 hr rosuvastatin 40 mg tablet 40 mg PO DAILY #90 tabs 06/01 03/24 Unknown Rx furosemide 40 mg tablet 40 mg PO .COMPLEX diuretic # 180 08/03/24 Unknown Rx tabs Allergy/AdvReac Type Severity Reaction Status Date / Time atorvastatin Allergy Severe myalgias, Verified 10/07/24 20:06 tongue swelling captopril Allergy Severe tongue Verified 10/07/24 20:06 swelling rivaroxaban (From Xarelto) Allergy Severe tongue Verified 10/07/24 20:06 swelling glimepiride Allergy Intermediate mouth Verified 10/07/24 20:06 blisters levofloxacin (From Levaquin) Allergy Intermediate leg pain Verified 10/07/24 20:06 dapagliflozin (From Farxiga) Allergy Unknown Rash Verified 10/07/24 20:06 azithromycin (From Zithromax) AdvReac Severe blisters Verified 10/07/24 20:06 metolazone AdvReac Severe Rash/Itchin Verified 10/07/24 20:06 g pravastatin AdvReac Intermediate itching Verified 10/07/24 20:06 other (Patient states he cannot recall any medical history in his mother or father and is certain there was no marked cardiac history of note.) Surgical History History of right-sided carotid endarterectomy History of electrophysiologic study History of left heart catheterization Status post mitral valve annuloplasty Hx of CABG (~11/14/09) Social History household members: none Smoking Status: Former smoker how long ago did patient quit smokin years ago alcohol intake: never substance use type: does not use caffeine: No what type of physical activity do you participate in: walking frequency: daily duration: 15-30 minutes/day seatbelt use: always do you feel safe at home: Yes ROS ROS Narrative Admission Review of Systems: CONSTITUTIONAL: No weight loss, fever, chills, + weakness or fatigue. HEENT: Eyes: No visual loss, blurred vision, double vision or yellow sclerae. Ears, Nose, Throat: No hearing loss, sneezing, congestion, runny nose or sore throat. SKIN: No rash or itching, lesions, wounds. CARDIOVASCULAR: + Chronic peripheral edema. No chest pain, chest pressure or chest discomfort, palpitations, orthopnea, syncopal events. RESPIRATORY: + Chronic dyspnea, worse with exertion. No marked productive sputum, wheezing, hemoptysis. GASTROINTESTINAL: No anorexia, nausea, vomiting or diarrhea, abdominal pain, melena, BRBPR. GENITOURINARY: + BPH with chronic frequency. No dysuria, urgency or retention. NEUROLOGICAL: No headache, dizziness, syncope, paralysis, ataxia, numbness or tingling in the extremities, focal weakness, change in bowel or bladder control,seizure. MUSCULOSKELETAL: + muscle, back pain, joint pain or stiffness. HEMATOLOGIC: No anemia. + Easy bleeding/bruising. LYMPHATICS: No enlarged nodes. No history of splenectomy. PSYCHIATRIC: No history of depression or anxiety. ENDOCRINOLOGIC: No reports of sweating, cold or heat intolerance. No polyuria orpolydipsia. ALLERGIES: No history of asthma, hives, eczema or rhinitis. Vital Signs Vital Signs Vital Signs: 10/07/24 20:06 10/07/24 20:58 10/07/24 22:06 Temperature 98 F Temperature Source Temporal Pulse Rate 65 62 Respiratory Rate 14 18 Respiratory Effort Normal Non-Labored Respiratory Pattern Normal Blood Pressure 118/76 123/81 H Blood Pressure Mean 90 95 Pulse Ox 98 94 Oxygen Delivery Method Room Air Room Air 10/07/24 23:11 Temperature 98.0 F Temperature Source Pulse Rate 61 Respiratory Rate 18 Respiratory Effort Respiratory Pattern Blood Pressure 110/71 Blood Pressure Mean 84 Pulse Ox 96 Oxygen Delivery Method Weight Weight: 149 lb 11.102 oz Body Mass Index (BMI) 23.4 Physical Exam Narrative Physical Examination: General: Awake, alert, oriented x 3 and cooperative, seated upright in bed in noapparent distress, complaining of lower extremity cramping. Skin: Normal color, normal turgor, no icterus, no cyanosis except significant bilateral lower extremity venous stasis skin changes, occasional stage ecchymoses. HEENT: AT/NC, EOMI, PERRLA, dry MM, no carotid bruits or JVD noted. Lungs: Mildly diminished, greater bases, appropriate effort, no rales, ronchi orwheezing. Heart: Paced; no gallop, rub audible, + SM. Abdomen: Soft, NTTP, ND, mildly hyperactive BS, no appreciated HSM. Extremities: No cyanosis, no clubbing, see skin, chronic distal edema unchanged he notes. Neurological: Patient awake, alert, oriented as noted, cognitive function intact; pupils equally reactive to light and accommodation, cranial nerves grossly normal, moving all 4 extremities, no focaldeficits, strength moderatelyglobally decreased. Psychiatric: Affect appears fatigued otherwise normal, no acute evidence of depressive or anxiety feelings. Results Lab / Micro Data 10/07/24 20:48 10/07/24 20:48 Labs: Laboratory Results - last 24 hr 10/07/24 20:48: WBC 8.0, RBC 4.50 L, Hgb 14.1, Hct 40.1, MCV 89.1, MCH 31.3, MCHC 35.2, RDW Std Deviation 42.5, RDW Coeff of Marley 13.0, Plt Count 196, MPV 9.9, Immature Gran % (Auto) 0.400, Neut % (Auto) 68.0, Lymph % (Auto) 18.6 L, Spencer % (Auto) 11.1 H, Eos % (Auto) 1.5, Baso % (Auto) 0.4, AbsoluteNeuts (auto) 5.5, Absolute Lymphs (auto) 1.49, Nucleated RBC % 0, Sodium 131 L, Potassium 2.9L, Chloride 88 L, Carbon Dioxide 26.0, Anion Gap 18 H, BUN 27 H, Creatinine 1.95H, Estim Creat Clear Calc 26.84 L, Est GFR (MDRD) Non-Af 34 L, BUN/Creatinine Ratio 13.9, Glucose 118 H, Calcium 9.6, Total Bilirubin 1.04, AST 35, ALT 36, Alkaline Phosphatase 133 H, Troponin T High Sens 46 H, Total Protein 7.4, Albumin4.3, Globulin 3.1, Albumin/Globulin Ratio 1.4 10/07/24 22:12: Urine Color Straw, Urine Clarity Clear, Urine pH 7.0, Ur Specific [place] 1.005, Urine Protein 100 H, Urine Glucose (UA) Normal, Urine Ketones Negative, Urine Occult Blood 25 H, UrineNitrite Negative, Urine Bilirubin Negative, Urine Urobilinogen Normal, Ur Leukocyte Esterase Negative, Urine RBC 0-5 SEEN, Urine WBC 0-5 SEEN, Ur Squamous Epith Cells 0 SEEN, Urine Bacteria 0 SEEN, Urine Mucus 0 SEEN 10/07/24 22:45: Troponin T Hi Sens 2 Hr 46 H Micro: Microbiology 10/07/24 20:48 Mucosa - Nose SARS-CoV-2, Influenza & RSV (PCR) - Final Rhythm Strip Rhythm Strip: paced Rate: 65 Ectopy: PVC(s) Imaging Radiology Impression Brain CT 10/07/24 20:27 IMPRESSION: No acute intracranial abnormality. Reading [facility] Chest X-Ray 10/07/24 21:10 IMPRESSION: No acute airspace abnormality. Reading Location: [facility] Assessment & Plan Assessment/Plan (1) LISA (acute kidney injury): (2) Acute hypokalemia: PLAN: Plan The patient is an 84 y/o M w/ PMHx: PAF, HTN, HLD, Diabetes mellitus type II, BPH with obstructive pathology, Anxiety and Depression, CKD stage II per previous GFR trending, CAD/ischemic cardiomyopathy s/p AICD/pacemaker and PCI aswell as CABG 2009, Carotid disease status post right carotid endarterectomy, Valvular Heart Disease who presents to the [facility] ED on 10/07/2024 with history of significant fatigue and general malaise reporting that a couple days previous hetook a single metolazone 2.5 mg thinking that potentially he had been overloadedand this was the reason but he does report that his chronic dyspnea is unchangedand is had no recent URI type symptoms nor any GI symptoms or any chest discomfort prompt eventual ED evaluation to be cautious. #1. Fatigue, malaise, Adult FTT: Will admit to [facility], will maintain on telemetry monitoring given indeterminate enzyme and continue to trend but low suspicion, will continue supplementation of potassiumwith initial IV supplementation started in the ED, will add oral regimen as well as noted, maintainon fall precautions, will add procalcitonin, urinalysis pending, interrogate device, PT/OT/case management consulted for discharge planning. #2. Indeterminate cardiac enzyme: EKG with paced rhythm with PVC with no acute evidence of ischemia, CXR w/ no acute cardiopulmonary findings, initial trop 46 with repeat delta 2-hour pending upon evaluation. Will place on a monitored bed to assure no acute myocardial infarction with serial cardiacenzymes and EKGs. Will supplement potassium and obtain magnesium level. If enzymes rise significantly with involve cardiology, obtain echocardiogram. Continued on NOACtherapy. #3. Acute kidney injury on CKD stage II per previous GFR trend: Secondary to acute presentation, decreased oral intake/dehydration. Admission BUN/Cr 27/1.95,GFR 34, prior baseline creatinine noted angie primarily 1.0-1.2. Will hydrate, hold nephrotoxic medications and repeat chemistry in AM. If no i mprovement wouldplan further assessment. #4. Hypokalemia: Admission K+ 2.9, magnesium level requested, supplementation given administered inthe ED however will need to replete further and will add oral regimen also, repeat level in AM. #5. Hyponatremia, hypochloremia, suspected hypovolemic component secondary to diuretics including recent addition of metolazone x 1: Admission sodium 131, chloride 88, will very judiciously hydration, repeat CMP in AM. #6. CAD/ischemic cardiomyopathy, VT: Status post CABG 2009 9LIMA to LAD, SVG to1st CFX & 2nd CFX), PCI as well as AICD/pacemaker given significantly reduced EFmost recently noted 01/2024 LVEF 20%,we will continue apixaban, statin therapy, Coreg, not on DAPHNIE/ARB. Requesting device interrogation. #7. Valvular heart disease: Status post mitral valve annuloplasty, most recent echocardiogram noted02/15/2024 with mildly dilated LV, LVEF 20%, severe global hypokinesis LV, evidence of diastolic dysfunction, mild biatrial dilatation, status post mitral valve repair, mild MVI, mild aortic stenosis. #8. Carotid disease: Status post right carotid endarterectomy, following with vascular surgeon Dr. Ly, continue apixaban, statin, hypertensive regimen, diabetic regimen as noted. #9. Diabetes mellitus type II: Will continue home insulin regimen, ADA diet, accu checks w/ ISS. #10. Hypertension: Continue home regimen including Coreg, isosorbide, temporally holding diuretics,add back once clinically appropriate, PRN hydralazine. #11. Hyperlipidemia: We will continue patient on statin therapy. #12. PAF: We will continue patient home Coreg and Eliquis regimen with adjustments for acute kidneyinjury as needed. #13. Anxiety and depression: We will continue patient home mirtazapine regimen with alteration as needed/hold as needed for renal function alteration. #14. BPH with obstructive pathology: We will continue patient on Flomax regimen. #15. DVT prophylaxis: Will continue apixaban with adjustments for acute kidney injury needed. #16. CODE status: Patient QUINN is his son and living will is currently in place. Discussed CODE status at length including difference between FULL code, DNR-CCA and DNR-CC status. Following discussions about the differences in these status, requested DNR-CCA, no intubation. Examples were given andCODE STATUS decision was confirmed. His grandson is present and he and himself both deny ever having discussions with his son who is his healthcare power of contract attorney about these items thus recommended that they have an open form discussion. Advanced Care Planning Face to Face Time: 16 minutes. Charges/Coding Visit Charges Inpatient E&M: 62977 Init Hosp L3 Procedures Hospitalists Procedures: 58053 Advncd Care Plan 30 Min 10/07/24 6859 Cosigner Signature (if applicable): CC: Dr. Kira Lerma MD; Dr. Jose Enrique Finney MD~ Signed [facility]03-09-2025 Discharge summary [facility] Medical Records Department [address] [place] [address] Emergency Department Summary 10/07/24 MR#: [id number] Acct: [id number] Name: JUAN DAVID HERNÁNDEZ Rep #:[id number] : 1940 84 From: Catracho Donohue MD PCP: Dr. Jose Enrique Finney MD Status:RE G ER Location: ED HPI History of Present Illness Chief Complaint: Weakness Informant: patient and family Narrative Narrative: 84-year-old male is brought in by family members states he is a little disoriented today, and he has not been feeling well. He states it is mainly been today, but he states that a couple days ago he took a single metolazone 2.5mg because I thought it would make me feel better. He states he has chronic dyspnea that is no different than usual right now. Denies a cough, nausea, vomiting, diarrhea.He denies any chest pains or discomfort. He states periodically he looked his pacemaker/defibrillator up to my sample checker and today he did it and it said that there was a problem. He states a couple days ago when he did it there were no issues. He did not receive a phone call from anyone about a dysrhythmia, however the grandson states that when he and other family members were calling him to check on him today he was not responding to their phone calls. He denies having any pain at the site of his AICD. He states he does know that the battery is going to have to be replaced at some point but he is not sure when. [facility] Medical History Mixed hyperlipidemia Paroxysmal atrial fibrillation Hypokalemia due to loss of potassium Acute blood loss anemia Upper GI bleed Muscle cramps NSVT (nonsustained ventricular tachycardia) Nonrheumatic mitral valve insufficiency Atherosclerosis of [place] coronary artery of [place] heart without angina pectoris Ischemic cardiomyopathy Essential (primary) hypertension Type 2 diabetes mellitus without complications Home Medications ?Medication ?Instructions ?Recorded ?Last Taken ?Type multivitamin with folic acid 400 1 tab PO DAILY supple ment 04/11/17 Unknown History mcg tablet insulin lispro 100 unit/mL 10 unit subcut TID blood miranda gar 03/17/18 11/12/18 07:00 History subcutaneous cartridge insulin detemir U-100 100 unit/mL 32 unit subcut QHS d iabetes 11/10/20 Unknown History (3 mL) subcutaneous pen tamsulosin 0.4 mg capsule 0.4 mg PO DAILY 11/10/20 Unk nown History zolpidem 5 mg tablet (Ambien) 5 mg PO QHS PRN insomnia 11/10/20 Unknown History apixaban 5 mg tablet 5 mg PO BID #180 tabs Unknown Rx carvedilol 12.5 mg tablet 12.5 mg PO BID #180 tabs Unknown Rx cyclobenzaprine 5 mg tablet 5 mg PO TID PRN muscle spa sm 02/16/23 Unknown History mirtazapine 15 mg tablet 15 mg PO QHS 02/16/23 Unknow n History nitroglycerin 0.4 mg sublingual 0.4 mg sublingual Q5-1 5M PRN chest 03/22/23 Unknown Rx tablet (Nitrostat) pain #25 tabs potassium chloride 20 mEq 20 meq PO BID supplement #18 0 tabs 04/16/24 Unknown Rx tablet,extended release(part/cryst) isosorbide mononitrate 30 mg 30 mg PO DAILY #90 tabs 1 08/18/23 Unknown Rx tablet,extended release 24 hr rosuvastatin 40 mg tablet 40 mg PO DAILY #90 tabs 06/01 03/24 Unknown Rx furosemide 40 mg tablet 40 mg PO .COMPLEX diuretic # 180 08/03/24 Unknown Rx tabs Allergy/AdvReac Type Severity Reaction Status Date / Time atorvastatin Allergy Severe myalgias, Verified 10/07/24 20:06 tongue swelling captopril Allergy Severe tongue Verified 10/07/24 20:06 swelling rivaroxaban (From Xarelto) Allergy Severe tongue Verified 10/07/24 20:06 swelling glimepiride Allergy Intermediate mouth Verified 10/07/24 20:06 blisters levofloxacin (From Levaquin) Allergy Intermediate leg pain Verified 10/07/24 20:06 dapagliflozin (From Farxiga) Allergy Unknown Rash Verified 10/07/24 20:06 azithromycin (From Zithromax) AdvReac Severe blisters Verified 10/07/24 20:06 metolazone AdvReac Severe Rash/Itchin Verified 10/07/24 20:06 g pravastatin AdvReac Intermediate itching Verified 10/07/24 20:06 Surgical History History of right-sided carotid endarterectomy History of electrophysiologic study History of left heart catheterization Status post mitral valve annuloplasty Hx of CABG (~11/14/09) Social History Smoking Status: Former smoker how long ago did patient quit smokin years ago alcohol intake: never substance use type: does not use caffeine: No what type of physical activity do you participate in: walking frequency: daily duration: 15-30 minutes/day seatbelt use: always do you feel safe at home: Yes ROS ROS ED Constitutional Constitutional ED: Reports fatigue and malaise; Denies chills or fever(s) Eyes Eyes: Denies change in vision or diplopia ENT ENT ED: Denies rhinorrhea or sore throat Cardiovascular Cardiovascular: Denies chest pain, orthopnea or palpitations Respiratory/Chest Respiratory/Chest: Reports dyspnea and dyspnea on exertion; Denies cough or orthopnea Gastrointestinal Gastrointestinal: Denies abdominal pain, diarrhea, nausea or vomiting Genitourinary Genitourinary ED: Denies dysuria or hematuria Musculoskeletal Musculoskeletal: Denies back pain or neck pain Integumentary Denies abscess or rash Neurologic Neurologic: Denies headache(s), paresthesias or weakness Psychiatric Psychiatric: Denies anxiety or suicidal thoughts EXAM Physical Exam Const Vital Signs: 10/07/24 20:06 10/07/24 20:58 10/07/24 22:06 Temperature 98 F Temperature Source Temporal Pulse Rate 65 62 Respiratory Rate 14 18 Respiratory Effort Normal Non-Labored Respiratory Pattern Normal Blood Pressure 118/76 123/81 H Blood Pressure Mean 90 95 Pulse Ox 98 94 Oxygen Delivery Method Room Air Room Air 10/07/24 23:11 Temperature 98.0 F Temperature Source Pulse Rate 61 Respiratory Rate 18 Respiratory Effort Respiratory Pattern Blood Pressure 110/71 Blood Pressure Mean 84 Pulse Ox 96 Oxygen Delivery Method Positive well nourished, well developed and cachectic General Appearance ED: well developed, cachectic and NAD Nutritional Appearance: cachectic HEENT Reports moist mucous membranes normocephalic and atraumatic Eyes PERRL and EOMs intact bilaterally Neck full ROM and supple Chest Wall inspection of chest normal and palpation of chest normal Chest Narrative: AICD site benign Resp normal respiratory effort and clear to auscultation bilaterally Cardio regular rate and regular rhythm GI non-tender and non-distended GI Narrative: No palpable pulsatile mass Auscultation: normoactive bowel sounds Palpation: soft Back/Spine no CVA tenderness General Back: other FROM Extremity normal to inspection General Extremety ED: Yes edema; Negative for pulses abnormal or tenderness General Extremity: edema bilateral lower extremity Details: mild (Symmetric, with changes of chronic stasis dermatitis); Negative for pulses abnormal Neuro oriented x3, CN's II-XII intact bilaterally and no sensory deficits noted Sensorium / Orientation: awake and alert Motor Exam: general weakness Psych mental status grossly normal Skin no rashes or lesions noted and no wounds MDM MDM MDM Narrative Medical decision making narrative: Elderly gentleman with generalized weakness, leg cramps, disorientation, broad workup obtained including CT of the head which is normal/negative for any acute on my interpretation, chest x-ray 1 viewwhich is negative for pneumonia interpretation, a COVID/flu swab which is negative, labs, EKG whichshows probable underlying A-fib with a paced rhythm, and we checked his device. Event Marketing Specialist called us and said that his device is checking out fine and the monitor that he uses at home to check his device had an error. I reassured him about that. His labs show LISA along with hypokalemia, the hypokalemia is probably making him feel poorly. He is on Lasix as well as metolazone, presumably because of edema in his legs and/or his ischemic cardiomyopathy, and he is already on twice daily oral potassium supplementation at home. Given thisI think he would benefit from being admitted overnight to replace his potassium parenterally which we started in the ED. He lives alone and is in agreement with that. History & Record Review Discussion w/independent historian: Patient and Family Lab Data Attestation: I reviewed the patient's lab results. Labs: Laboratory Results - last 24 hr 10/07/24 10/07/24 10/07/24 20:48 22:12 22:45 WBC 8.0 RBC 4.50 L Hgb 14.1 Hct 40.1 MCV 89.1 MCH 31.3 MCHC 35.2 RDW Std Deviation 42.5 RDW Coeff of Marley 13.0 Plt Count 196 MPV 9.9 Immature Gran % (Auto) 0.400 Neut % (Auto) 68.0 Lymph % (Auto) 18.6 L Spencer % (Auto) 11.1 H Eos % (Auto) 1.5 Baso % (Auto) 0.4 Absolute Neuts (auto) 5.5 Absolute Lymphs (auto) 1.49 Nucleated RBC % 0 Sodium 131 L Potassium 2.9 L Chloride 88 L Carbon Dioxide 26.0 Anion Gap 18 H BUN 27 H Creatinine 1.95 H Estim Creat Clear Calc 26.84 L Est GFR (MDRD) Non-Af 34 L BUN/Creatinine Ratio 13.9 Glucose 118 H Calcium 9.6 Total Bilirubin 1.04 AST 35 ALT 36 Alkaline Phosphatase 133 H Troponin T High Sens 46 H Troponin T Hi Sens 2 Hr 46 H Total Protein 7.4 Albumin 4.3 Globulin 3.1 Albumin/Globulin Ratio 1.4 Urine Color Straw Urine Clarity Clear Urine pH 7.0 Ur Specific [place] 1.005 Urine Protein 100 H Urine Glucose (UA) Normal Urine Ketones Negative Urine Occult Blood 25 H Urine Nitrite Negative Urine Bilirubin Negative Urine Urobilinogen Normal Ur Leukocyte Esterase Negative Urine RBC 0-5 SEEN Urine WBC 0-5 SEEN Ur Squamous Epith Cells 0 SEEN Urine Bacteria 0 SEEN Urine Mucus 0 SEEN Radiography Diagnostic Testing: Clinical Impression(s) from Imaging Studies Brain CT 10/07/24 20:27 IMPRESSION: No acute intracranial abnormality. Reading Location: [facility] Chest X-Ray 10/07/24 21:10 IMPRESSION: No acute airspace abnormality. Reading Location: [facility] Rhythm Strip Rhythm Strip: paced Rate: 65 Ectopy: PVC(s) EKG Initial EKG: Attestation: I personally reviewed and interpreted this EKG as follows: Interpretation: No Acute Injury Pattern and Paced Prior EKG tracings: available for review Prior: Unchanged Management Discussion w/another healthcare provider: Hospitalist Discharge Plan Dx/Rx/DC Orders Clinical Impression: Acute hypokalemia, LISA (acute kidney injury), Disorientation, Declining functional status Disposition Disposition: Acute Care Hospital [facility] What to do if you have Problems For any increased pain, shortness of breath, bleeding, nausea or vomiting, chestpain, or any unexpected problems, contact your Primary Care Provider. Call [facility] ([phone]) or report tothe closest Emergency Room. Call 911 if necessary. 10/07/24 1886 Cosigner Signature (if applicable): CC: Dr. Jose Enrique Finney MD ~ Signed [facility]03-09-2025 Radiology Diagnostic study note [facility] Imaging Services [address] [place] [address] [id number] Brain/Head without Contrast MR#: [id number] Acct: [id number] Name: JUAN DAVID HERNÁNDEZ Rep #: [id number] : 1940 M 84 From: Jude Regalado DO PCP: Dr. Jose Enrique Finney MD Status: RE G ER Study:Brain/Head without Contrast Date of Exa m: 10/07/24 Exam# [id number] Ordering Dr: Arianna Donohue MD EXAM: CT brain without IV contrast CLINICAL HISTORY: Altered mental status COMPARISON: 03/17/2018 TECHNIQUE: Multiple contiguous axial images through the brain were obtained without the administration of intravenous contrast. Two-dimensional coronal and sagittal reformatted images were reconstructed. Low- dose imaging technique was utilized. FINDINGS: No evidence of acute intracranial hemorrhage, midline shift or mass effect. No definite CT evidenceof acute territorial cortical infarction. No hydrocephalus. Mild generalized cerebral atrophy and minimal chronic small-vessel ischemic changes. Cerebrovascular calcifications. Calvarium is intact. Paranasal sinuses and mastoid air cells are clear. CT/Brain/Head without Contrast IMPRESSION: No acute intracranial abnormality. Reading Location: [facility] CC: Dr. Catracho Donohue MD; Dr. Jose Enrique Finney MD ~ Guest Services Director: Signed [facility]03-09-2025 Radiology Diagnostic study note [facility] Imaging Services [address] [place] [address] [id number] Chest PA and Lateral MR#: [id number] Acct: [id number] Name: JUAN DAVID HERNÁNDEZ Rep #: [id number] : 1940 M 84 From: Jude Regalado DO PCP: Dr. Jose Enrique Finney MD Status: RE G ER Study:Chest PA and Lateral Date of Exam: 10/07/24 Exam# [id number] Ordering Dr: Arianna Donohue MD PROCEDURE: CHEST PA AND LATERAL REASON FOR EXAM: Weakness, chest pain TECHNIQUE: Frontal and lateral views of the chest. COMPARISON: 06/25/2019 FINDINGS: Cardiomediastinal silhouette is within normal limits. Intact dual lead left cardiac pacer/AICD. Status post CABG. Lungs are clear. No sizable pneumothorax. RAD/Chest PA and Lateral IMPRESSION: No acute airspace abnormality. Reading Location: [facility] CC: Dr. Catracho Donohue MD; Dr. Jose Enrique Finney MD ~ Guest Services Director: Signed [facility]12-11-2024 Evaluation note* Diagnosis Onset Date Resolution Status Admit Date Aortic valve stenosis, nonrheumatic acute July 11, 2 024 10:39am ICD (implantable cardioverter-defibrillator) in place acute July 11 10:39am Atherosclerosis of [place] coronary artery of [place] heart without angina chronic July 11 10:39am Essential (primary) hypertension chronic July 11 10:39am 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, chronic July 10:39am Ischemic cardiomyopathy chronic 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 chronic July 11 10:39am Paroxysmal atrial fibrillation chron ic July 11, 2024 10:39am Type 2 diabetes mellitus without complications chronic July 012023 10:39am [facility] Work Phone: 1(732) 923-550512-11-2024 Evaluation note* Diagnosis Onset Date Resolution Status Admit Date Aortic valve stenosis, nonrheumatic acute July 11 10:39am ICD (implantable cardioverter-defibrillator) in place acute July 11 10:39am Atherosclerosis of [place] coronary artery of [place] heart without angina chronic July 11 10:39am Essential (primary) hypertension chronic July 11 10:39am 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, chronic July 10:39am Ischemic cardiomyopathy chronic 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 chronic July 11 10:39am Paroxysmal atrial fibrillation chron ic July 11, 2024 10:39am Type 2 diabetes mellitus without complications chronic July 012023 10:39am Acute hypokalemia acute October 072024 11:21pm LISA (acute kidney injury) acute October 07, 2024 11:21pm Declining functional status acute October 07, 2024 11:21pm [facility] Work Phone: 1(957) 312-111712-11-2024 Evaluation note* Diagnosis Onset Date Resolution Status Admit Date Aortic valve stenosis, nonrheumatic acute July 11 10:39am ICD (implantable cardioverter-defibrillator) in place acute July 11 10:39am Atherosclerosis of [place] coronary artery of [place] heart without angina chronic July 11 10:39am Essential (primary) hypertension chronic July 11 10:39am 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, chronic Darron 11th , 2024 10:39am Ischemic cardiomyopathy chronic 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 chronic July 11 10:39am Paroxysmal atrial fibrillation chron ic July 11, 2024 10:39am Type 2 diabetes mellitus without complications chronic July 012023 10:39am Acute hypokalemia acute October 072024 11:21pm LISA (acute kidney injury) acute October 07, 2024 11:21pm Declining functional status acute October 07, 2024 11:21pm Chronic anticoagulation acute 2024 11:06pm GI bleed acute October 11 11:06pm Orthostasis acute October 11 11:06pm [facility] Work Phone: 1(784) 404-194412-11-2024 Evaluation note* Diagnosis Onset Date Resolution Status Admit Date Aortic valve stenosis, nonrheumatic acute July 11 10:39am ICD (implantable cardioverter-defibrillator) in place acute July 11 10:39am Atherosclerosis of [place] coronary artery of [place] heart without angina chronic July 11 10:39am Essential (primary) hypertension chronic July 11 10:39am 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, chronic July 10:39am Ischemic cardiomyopathy chronic 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 chronic July 11 10:39am Paroxysmal atrial fibrillation chron ic July 11, 2024 10:39am Type 2 diabetes mellitus without complications chronic July 012023 10:39am Acute hypokalemia acute October 072024 11:21pm LISA (acute kidney injury) acute October 07, 2024 11:21pm Declining functional status acute October 07, 2024 11:21pm LISA (acute kidney injury) acute October 11, 2024 11:32pm Chronic anticoagulation acute arch 2024 11:32pm Elevated BUN acute October 11, 2024 11:32pm GI bleed acute October 11 11:32pm Melanotic stools acute October 112024 11:32pm Orthostasis acute October 11 11:32pm Severe hypotension acute October 11, 2024 11:32pm Chronic kidney disease (CKD) , stage II (mild) chronic October 11, 2024 11:32pm [facility] Work Phone: 1([phone]) 821-941212-11-2024 Evaluation note* Diagnosis Onset Date Resolution Status Admit Date Aortic valve stenosis, nonrheumatic acute July 11 10:39am ICD (implantable cardioverter-defibrillator) in place acute July 11 10:39am Atherosclerosis of [place] coronary artery of [place] heart without angina chronic July 112023 10:39am Essential (primary) hypertension chronic July 11 10:39am 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, chronic July 10:39am Ischemic cardiomyopathy chronic D ecember 2023 10:39am assisted current use of 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 chronic July 11 10:39am Paroxysmal atrial fibrillation chron ic July 11, 2024 10:39am Type 2 diabetes mellitus without complications chronic July 012023 10:39am Acute hypokalemia inactive October 072024 11:21pm LISA (acute kidney injury) inactive October 07, 2024 11:21pm Declining functional status inactive October 07, 2024 11:21pm Chronic anticoagulation acute 2024 11:32pm Elevated BUN acute October 11, 2024 11:32pm GI bleed acute October 11 11:32pm Melanotic stools acute October 112024 11:32pm Orthostasis acute October 11 11:32pm Severe hypotension acute October 11, 2024 11:32pm Chronic kidney disease (CKD) , stage II (mild) chronic October 11, 2024 11:32pm LISA (acute kidney injury) inactive October 11, 2024 11:32pm Gastric ulcer acute October 17, 2024 1:36pm Upper GI bleed acute September 1:36pm [facility] Work Phone: 1(907) 769-586211-01-2023 Progress note Author Aliya Jones [facility] June 01, 2023 11:43am Note Date/Time June 01, 2023 1 1:43am [facility] [address] [place] [address] Progress Note - Wound Care 06/01/23 1140 MR#: [id number] Acct: [id number] Name: JUAN DAVID HERNÁNDEZ Rep #:[id number] : 1940 83 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 Jose Enrique Finney MD Status:RE G RCR Location: History of Present Illness Date of Service: 06/01/23 Chief Complaint: Follow-up on his left ear laceration from a tree branch and right lateral foot open wound from a blister that was over 1 month old. 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 He has poor hygiene habits. Had developed a blister from his shoe on the right lateral foot that is quite long about 4 cm x 1 cm wide. States it bled like everything because he is on Eliquis. Seeing bleeds stop to get the bleeding under control. Now has developed some slough and fibrous material in the center with I think over a venous vein. Patient has numbing and has no feeling in his lower leg but he does say his feetthrob. He does have many comorbidities such as A-fib diabetes does have a defibrillatorhigh cholesterol BPH Progress of Wound: Today the wound is closed skin is still sensitive and some areas may reopen suggested continue care for another week then can stop. Subjective Subjective Patient happy with care Objective Data Objective Data Patient will be discharged from the wound center follow-up as needed Vital Signs: Vital Signs Temp Pulse Resp BP O2 Del Method 97.8 F 81 16 119/72 Room Air 06/01/23 11:14 06/01/23 11:14 06/01/23 00:15 06/01/23 11:14 06/01/23 11:14 Oxygen Delivery Method Room Air Lab / Micro Data Attestation: I reviewed the patient's lab results. Physical Exam Const oriented x3 General Appearance: cooperative Exam Limitations: no limitations HEENT normocephalic Head and Scalp: normal to inspection Face and Sinus: normal facial exam Nose: external nose normal General Ear: hearing grossly impaired External Ear: external ears normal Mouth: oral and palatal mucosa normal Eyes PERRL General Eye: normal appearance of both eyes Neck full ROM General: normal visual inspection Resp normal respiratory effort Effort and Inspection: able to speak in complete sentences Auscultation: clear to auscultation bilaterally Cardio regular rate and regular rhythm Palpation: normal PMI Rate: regular rate Rhythm: regular rhythm GI Auscultation: normoactive bowel sounds Palpation: soft and no hepatosplenomegaly external exam normal Back/Spine Cervical Spine: cervical ROM normal Thoracic Spine / Upper Back: normal to inspection Lumbar Spine / Lower Back: normal to inspection Extremity normal to inspection General Extremity: normal exam except as noted Skin Wounds: wounds noted Wound Narrative: Right lateral foot open wound from blister Left Pe?a superficial laceration in ear from trees branches Neuro oriented x3 Psych Appearance: grossly normal Speech: normal speech Thought Content: normal thought content Judgement: judgement good Debridement Note Debridement Note No debridement was completed: No debridement was completed today Post-Debridement Measurements and Additional Note: Post-Debridement Measurements/Treatment - Nurse 1 - General Ulcer Assessment Start: 06/01/23 11:13 Freq: Status: Active Protocol: ALEJANDRO Activity Type Activity Date Activity User E-sign Co-sign Detail Recorded Client Recorded Date Recorded By Document 06/01/23 11:14 Desktop 06/01/23 11:15 06/01/23 11:14 - Today's Visit Information Type of service Follow-up Visit (Physician/CIVIL ENGINEERING DESIGNER ) Arrival Mode Ambulatory Transfer Assistance None Patient Identification Verified (Name & Yes ) Patient Requires Transmission-Based No Precautions Vital Signs Temperature (97.8 F-99.1 F) 97.8 F Temperature Source Temporal Pulse Rate (60-100) 81 Pulse Location Monitor Oxygen Delivery Method Room Air Blood Pressure (90/60-120/80) 119/72 Blood Pressure Mean (mm Hg) 87 Source Monitor Position Sitting Blood Pressure Location Left Arm History Since Last Visit- (Skip if this is Patient's initial visit) Have you changed medications since your No last visit? Any new allergies or adverse reactions No Had a fall/change in ADL's that may No increase risk of falls Signs or symptoms of abuse and/or No neglect since last visit Have you been in the hospital since your No last visit? Has dressing in place as prescribed Yes Has compression in place as prescribed No Has offloadiing in place as prescribed No Experienced any changes in pain level or No management Pain Scale: 0-10 Numeric Is Patient Pain Free? Yes - Nurse 1 - General Ulcer Measurement Start: 06/01/23 11:13 Freq: Status: Active Protocol: Activity Type Activity Date Activity User E-sign Co-sign Detail Recorded Client Recorded Date Recorded By Document 06/01/23 11:14 SPI [employer] 06/01/23 11:15 06/01/23 11:14 Wound Center Nurse 1 #1- R LAT FOOT -Combined with other wound No -Current Size (cm) - Length 0.1 -Current Size (cm) - Width 0.1 -Current Size (cm) - Depth 0.1 -Total Square Cm 0.01 -Epithelialization Large 67-100% -Tunneling No -Undermining/Tunneling No -Circular Undermining No -Exudate Amt None Present -Slough/Fibrin No -Structure Exposed N/A -Texture (Laya-wound Skin Appearance) Assessed -Moisture (Laya-wound Skin Appearance) Assessed -Color (Laya-wound Skin Appearance) Not Assessed WC - Nurse 2 - General Ulcer CM Notes Start: 06/01/23 11:13 Freq: Status: Active Protocol: Activity Type Activity Date Activity User E-sign Co-sign Detail Recorded Client Recorded Date Recorded By Document 06/01/23 11:29 SPI [employer] 06/01/23 11:31 06/01/23 11:29 Wound Center Nurse 2 -Time 11:29 -Correct Patient Yes -Correct Side, Site, Position Yes -Correct Procedure Yes -Procedure Performed No -Post Debridement (cm) - Length 0 -Post Debridement (cm) - Width 0 -Total Square (Post) (cm) 0 -Wound/Ulcer Outcome Healed- Epithelialized Pain Scale: 0-10 Numeric Is Patient Pain Free? Yes - Nurse 3 - General Ulcer D/C NN Start: 06/01/23 11:13 Freq: Status: Active Protocol: Activity Type Activity Date Activity User E-sign Co-sign Detail Recorded Client Recorded Date Recorded By Document 06/01/23 11:29 SPI [employer] 06/01/23 11:31 06/01/23 11:29 Wound Care Center Nurse 3 #1- R LAT FOOT -Ulcer Cleansing Not Cleansed -Foul Odor after Cleansing No -Primary Dressing Applied NonAdherent Contact Layer, Promogran -Primary Dressing Covered/Secured with Dry Gauze & Roll Gauze, Secured with Tape -Promogran 1 Pain Scale: 0-10 Numeric Is Patient Pain Free? Yes Teaching: Wound Center Dressing Your Wound -Person Taught Patient -Teaching Method Discussion, Demonstration -Response to teaching Verbalize understanding WC - Visit Discharge Discharge Condition Stable Ambulatory Status Ambulatory Transportation Private Auto Medication Reconcilliation completed & Yes provided to patient/care provider Clinical Summary of Care Provided Yes Assessment/Plan Assessment/Plan (1) Diabetic foot ulcer associated with type 2 diabetes mellitus: CODE(S): E11.621 - Type 2 diabetes mellitus with foot ulcer; L97.509 - Non- pressure chronic ulcer of other part of unspecified foot with unspecified severity QUALIFIERS: Diabetic foot ulcer location: midfoot Laterality: right Non-pressure ulcer stage: with fat layer exposed Qualified Code(s): E11.621 - Type 2 diabetes mellitus with foot ulcer; L97.412 - Non-pressure chronic ulcer of right heel and midfoot with fat layer exposed PLAN: Resolved follow-up as needed Discharge from the wound center (2) Decubitus ulcer of right foot, stage 2: CODE(S): L89.892 - Pressure ulcer of other site, stage 2 (3) Unspecified open wound of other part of head, initial encounter: CODE(S): S01.80XA - Unspecified open wound of other part of head, initial encounter PLAN: resolved follow-up as needed 06/01/23 1143 <Electronically signed by Aliya Jones NP COMMERCIAL LOAN PROCESSOR-C> Cosigner Signature (if applicable): CC: ~ Signed [facility] Work Phone: 1(943) 629-442709-27-2023 Progress note Author Aliya Jones [facility] April 27, 2023 1:42pm Note Date/Time April 27, 2023 1:42pm [facility] [address] [place] [id number] Progress Note - Wound Care 04/27/23 1339 MR#: [id number] Acct: [id number] Name: JUAN DAVID HERNÁNDEZ Rep #:[id number] : 1940 82 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 Jose Enrique Finney MD Status:RE G RCR Location: History of Present Illness Date of Service: 04/27/23 Chief Complaint: Follow-up on his left ear laceration from a tree branch and right lateral foot open wound from a blister that was over 1 month old. 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 He has poor hygiene habits. Had developed a blister from his shoe on the right lateral foot that is quite long about 4 cm x 1 cm wide. States it bled like everything because he is on Eliquis. Seeing bleeds stop to get the bleeding under control. Now has developed some slough and fibrous material in the center with I think over a venous vein. Patient has numbing and has no feeling in his lower leg but he does say his feetthrob. He does have many comorbidities such as A-fib diabetes does have a defibrillatorhigh cholesterol BPH Progress of Wound: Patient had infection we skipped a week with the EpiFix and had him use Fibracolinstead tolerated well. Still measuring smaller redness is better. Patient is continuing the antibiotic he is almost done. We will apply epi number for 8 today. No sign of infection and measuring much smaller and shallower. Subjective Subjective Patient will be happy when he does not have to come any more Objective Data Objective Data No sign of infection measurements are smaller we will proceed with epi #8 today Vital Signs: Vital Signs Temp Pulse Resp BP O2 Del Method 96.1 F L 84 18 113/73 Room Air 04/27/23 11:01 04/27/23 11:01 04/27/23 11:01 04/27/23 11:01 04/19/23 10:56 Oxygen Delivery Method Room Air Lab / Micro Data Micro: Microbiology 04/13/23 11:10 Wound - Right Foot Gram Stain - Final 04/13/23 11:10 Wound - Right Foot Wound Culture - Final Serratia marcescens 04/13/23 11:10 Wound - Right Foot Anaerobic Culture - Final No anaerobic bacteria isolated. Physical Exam Const oriented x3 General Appearance: cooperative Exam Limitations: no limitations HEENT normocephalic Head and Scalp: normal to inspection Face and Sinus: normal facial exam Nose: external nose normal General Ear: hearing grossly impaired External Ear: external ears normal Mouth: oral and palatal mucosa normal Eyes PERRL General Eye: normal appearance of both eyes Neck full ROM General: normal visual inspection Resp normal respiratory effort Effort and Inspection: able to speak in complete sentences Auscultation: clear to auscultation bilaterally Cardio regular rate and regular rhythm Palpation: normal PMI Rate: regular rate Rhythm: regular rhythm GI Auscultation: normoactive bowel sounds Palpation: soft and no hepatosplenomegaly external exam normal Back/Spine Cervical Spine: cervical ROM normal Thoracic Spine / Upper Back: normal to inspection Lumbar Spine / Lower Back: normal to inspection Extremity normal to inspection General Extremity: normal exam except as noted Skin Wounds: wounds noted Wound Narrative: Right lateral foot open wound from blister Left Pe?a superficial laceration in ear from trees branches Neuro oriented x3 Psych Appearance: grossly normal Speech: normal speech Thought Content: normal thought content Judgement: judgement good Debridement Note Debridement Note Wound debrided: Right lateral lower foot Type of Debridement: Excisional debridement Anesthesia Used: 5% Lidocaine Gel Depth: in the subcutaneous layer Percentage of wound debrided: 100 Instrument Used: 3mm curette Tissue Removed: Fibrin and some callus Severity: Fat Layer Exposed Amount of bleeding with debridement: Mild Bleeding Controlled with: Compression and gauze Patient tolerated procedure: Patient tolerated procedure well Post-Debridement Measurements and Additional Note: Post-Debridement Measurements/Treatment - Nurse 1 - General Ulcer Assessment Start: 04/01/23 12:45 Freq: Status: Active Protocol: ALEJANDRO Activity Type Activity Date Activity User E-sign Co-sign Detail Recorded Client Recorded Date Recorded By Document 04/01/23 12:45 [id number] 04/01/23 12:46 Document 04/06/23 11:07 [id number] 04/06/23 11:09 Document 04/13/23 10:59 [id number] 04/13/23 11:00 Document 04/19/23 10:56 Desktop 04/19/23 11:02 Document 04/27/23 11:01 RB Desktop 04/27/23 11:03 RB 04/01/23 04/06/23 04/13/23 12:45 11:07 10:59 - Today's Visit Information Type of service Nurse-only Follow-up Visit Follow-up Visit Visit (Physician/CIVIL ENGINEERING DESIGNER (Physician/CIVIL ENGINEERING DESIGNER ) ) Arrival Mode Ambulatory Ambulatory Ambulatory Transfer Assistance None None None Accompanied by Patient Identification Verified (Name & Yes Yes Yes ) Patient Requires Transmission-Based No No No Precautions Safety Precautions Vital Signs Temperature (97.8 F-99.1 F) 96.8 F L 96.7 F L 96.8 F L Temperature Source Temporal Temporal Temporal Pulse Rate (60-100) 81 87 78 Pulse Location Monitor Monitor Monitor Respiratory Rate (12-18) 18 18 18 Respiratory rate source Observation Observation Observation Oxygen Delivery Method Blood Pressure (90/60-120/80) 113/89 H 111/65 117/71 Blood Pressure Mean (mm Hg) 97 80 86 Source Monitor Monitor Monitor Position Semi-Fowlers Semi-Fowlers Semi-Fowlers Blood Pressure Location Left Arm Left Arm Left Arm History Since Last Visit- (Skip if this is Patient's initial visit) Have you changed medications since your No No No last visit? Any new allergies or adverse reactions No No No Had a fall/change in ADL's that may No No No increase risk of falls Signs or symptoms of abuse and/or No No No neglect since last visit Have you been in the hospital since your No No No last visit? Has dressing in place as prescribed Yes Yes Yes Has compression in place as prescribed No No No Has offloadiing in place as prescribed Yes No No Experienced any changes in pain level or No No No management Left Footwear Right Footwear Pain Scale: 0-10 Numeric Is Patient Pain Free? Yes Yes Yes 04/19/23 04/27/23 10:56 11:01 - Today's Visit Information Type of service Follow-up Visit Follow-up Visit (Physician/CIVIL ENGINEERING DESIGNER (Physician/CIVIL ENGINEERING DESIGNER ) ) Arrival Mode Ambulatory Ambulatory Transfer Assistance None None Accompanied by self Patient Identification Verified (Name & Yes Yes ) Patient Requires Transmission-Based No No Precautions Safety Precautions NA Vital Signs Temperature (97.8 F-99.1 F) 96.9 F L 96.1 F L Temperature Source Temporal Temporal Pulse Rate (60-100) 86 84 Pulse Location Monitor Monitor Respiratory Rate (12-18) 16 18 Respiratory rate source Observation Observation Oxygen Delivery Method Room Air Blood Pressure (90/60-120/80) 119/67 113/73 Blood Pressure Mean (mm Hg) 84 86 Source Monitor Monitor Position Sitting Semi-Fowlers Blood Pressure Location Right Arm Left Arm History Since Last Visit- (Skip if this is Patient's initial visit) Have you changed medications since your No No last visit? Any new allergies or adverse reactions No No Had a fall/change in ADL's that may No No increase risk of falls Signs or symptoms of abuse and/or No No neglect since last visit Have you been in the hospital since your No No last visit? Has dressing in place as prescribed Yes Yes Has compression in place as prescribed N/A Yes Has offloadiing in place as prescribed No No Experienced any changes in pain level or No No management Left Footwear Regular Shoe Right Footwear Regular Shoe Pain Scale: 0-10 Numeric Is Patient Pain Free? Yes Yes WC - Nurse 1 - General Ulcer Measurement Start: 04/01/23 12:45 Freq: Status: Active Protocol: Activity Type Activity Date Activity User E-sign Co-sign Detail Recorded Client Recorded Date Recorded By Document 04/01/23 12:45 RB [id number] 04/01/23 12:46 RB Document 04/06/23 11:07 RB [id number] 04/06/23 11:09 RB Document 04/13/23 10:59 RB [id number] 04/13/23 11:00 RB Document 04/19/23 10:56 MW Desktop 04/19/23 11:02 MW Document 04/27/23 11:01 RB Desktop 04/27/23 11:03 RB 04/01/23 04/06/23 04/13/23 12:45 11:07 10:59 Wound Center Nurse 1 #1- R LAT FOOT -Combined with other wound No No -Current Size (cm) - Length 3 2.8 -Current Size (cm) - Width 1 0.9 -Current Size (cm) - Depth 0.1 0.1 -Total Square Cm 3 2.52 -Photo Taken Yes -Epithelialization -Tunneling No No -Undermining/Tunneling No No -Circular Undermining No No -Exudate Amt Medium Large -Exudate Type Serosanguineous Serosanguineous -Wound Margin Distinct, Distinct, Outline Outline Attached Attached -Granulation Amt Medium (34-66%) Medium (34-66%) -Granulation Quality Oxly Oxly -Slough/Fibrin Yes Yes -Necrosis Amt Medium (34-66%) Medium (34-66%) -Necrotic Tissue Type Adherent Slough Adherent Slough -Structure Exposed N/A N/A -Texture (Laya-wound Skin Appearance) Assessed Assessed, Scarring -Moisture (Laya-wound Skin Appearance) Maceration Assessed -Color (Laya-wound Skin Appearance) Assessed Assessed -Temperature (Laya-wound Skin No Abnormality No Abnormality Appearance) (Pt Warm) (Pt Warm) -Tenderness on Palpation (Laya-wound No No Skin Appearance) -Ulcer Cleansing Wound Cleanser Wound Cleanser -Foul Odor after Cleansing No No -Anesthetic Used 5% Lidocaine 5% Lidocaine Gel Gel -Wound Comment(s) steristrips intact Lower Limb Edema Present Yes Right Calf (cm) 33.8 Right Ankle (cm) 21.8 04/19/23 04/27/23 10:56 11:01 Wound Center Nurse 1 #1- R LAT FOOT -Combined with other wound No No -Current Size (cm) - Length 2.3 0.8 -Current Size (cm) - Width 0.7 0.5 -Current Size (cm) - Depth 0.2 0.1 -Total Square Cm 1.61 0.40 -Photo Taken No Yes -Epithelialization None Present -Tunneling No No -Undermining/Tunneling No No -Circular Undermining No No -Exudate Amt Medium Medium -Exudate Type Serosanguineous Serosanguineous -Wound Margin Flat & Intact Distinct, Outline Attached -Granulation Amt Large (67-100%) Medium (34-66%) -Granulation Quality Oxly Oxly -Slough/Fibrin Yes Yes -Necrosis Amt Small (1-33%) Medium (34-66%) -Necrotic Tissue Type Adherent Slough Adherent Slough -Structure Exposed N/A N/A -Texture (Laya-wound Skin Appearance) Assessed, Assessed, Scarring Scarring -Moisture (Laya-wound Skin Appearance) Assessed, Assessed Maceration -Color (Laya-wound Skin Appearance) No Abnormality, Assessed Assessed -Temperature (Laya-wound Skin No Abnormality No Abnormality Appearance) (Pt Warm) (Pt Warm) -Tenderness on Palpation (Laya-wound No No Skin Appearance) -Ulcer Cleansing Soap and Water Wound Cleanser -Foul Odor after Cleansing No No -Anesthetic Used 5% Lidocaine 5% Lidocaine Gel Gel -Wound Comment(s) Lower Limb Edema Present No Yes Right Calf (cm) 33.5 Right Ankle (cm) 21 WC - Nurse 2 - General Ulcer CM Notes Start: 04/01/23 12:45 Freq: Status: Active Protocol: Activity Type Activity Date Activity User E-sign Co-sign Detail Recorded Client Recorded Date Recorded By Document 04/06/23 11:24 MW [id number] 04/06/23 11:30 MW Document 04/13/23 11:06 MW [id number] 04/13/23 11:13 MW Edit Result 04/13/23 11:06 MW (1) [id number] 04/14/23 06:36 PL Document 04/19/23 11:04 MW Desktop 04/19/23 11:08 MW Document 04/27/23 11:27 GM Desktop 04/27/23 11:36 GM (1) #1- R LAT FOOT - Apply Skin Sub - 1st 25 sq cm - Feet => 1 - Apply Skin Sub - each addt'l 25 sq cm 1 => - Feet 04/06/23 04/13/23 04/19/23 11:24 11:06 11:04 Wound Center Nurse 2 #1- R LAT FOOT -Time 11:25 11:08 11:05 -Correct Patient Yes Yes Yes -Correct Side, Site, Position Yes Yes Yes -Correct Procedure Yes Yes Yes -Procedure Performed Yes Yes Yes -Type of Procedure Debridement Debridement Debridement -Clinical Debridement Subcutaneous Subcutaneous Subcutaneous -Tissue Removed Subcutaneous Subcutaneous Subcutaneous -Post Debridement (cm) - Length 2.2 2.2 2.5 -Post Debridement (cm) - Width 1.0 0.9 0.7 -Post Debridement (cm) - Depth 0.2 0.2 0.2 -Total Square (Post) (cm) 2.20 1.98 1.75 -Area of Debridement (cm) - Length 2.2 2.2 2.5 -Area of Debridement (cm) - Width 1.0 0.9 0.7 -Total Square (Area) (cm) 2.20 1.98 1.75 -Tunneling No No No -Undermining/Tunneling No No No -Circular Undermining No No No -Wound/Ulcer Outcome Not Healed Not Healed Not Healed -Ulcer Cleansing Rinsed/ Rinsed/ Rinsed/ Irrigated with Irrigated with Irrigated with Saline Saline Saline -Foul Odor after Cleansing No No No -Bioengineered Tissue Yes Yes No -Type of Bioengineered Tissue Epifix Epifix 18mm Disc -Expiration Date 11/30/27 12/31/27 -Product Lot Number [id number] -Percent Used 100 100 -Lot number of Saline Used [id number] -Bleeding Controlled with Pressure Pressure Pressure -Treatment Response Procedure Procedure Procedure Tolerated Well Tolerated Well Tolerated Well -Offloading No No No -Debridement - Subq, 1st 20sq cm No No Yes -Apply Skin Sub - 1st 25 sq cm - Feet 1 1 -Epifix (per sq cm) 4 -Epifix 18mm Disc 3 Pain Scale: 0-10 Numeric Is Patient Pain Free? Yes Yes Yes 04/27/23 11:27 Wound Center Nurse 2 #1- R LAT FOOT -Time 11:28 -Correct Patient Yes -Correct Side, Site, Position Yes -Correct Procedure Yes -Procedure Performed Yes -Type of Procedure Debridement -Clinical Debridement Subcutaneous -Tissue Removed Subcutaneous -Post Debridement (cm) - Length 2.1 -Post Debridement (cm) - Width 0.6 -Post Debridement (cm) - Depth 0.1 -Total Square (Post) (cm) 1.26 -Area of Debridement (cm) - Length 2.1 -Area of Debridement (cm) - Width 0.6 -Total Square (Area) (cm) 1.26 -Tunneling No -Undermining/Tunneling No -Circular Undermining -Wound/Ulcer Outcome Not Healed -Ulcer Cleansing Rinsed/ Irrigated with Saline -Foul Odor after Cleansing No -Bioengineered Tissue Yes -Type of Bioengineered Tissue Epifix 18mm Disc -Expiration Date 12/31/27 -Product Lot Number [id number] -Percent Used 10 -Lot number of Saline Used [id number] -Bleeding Controlled with Pressure -Treatment Response Procedure Tolerated Well -Offloading -Debridement - Subq, 1st 20sq cm No -Apply Skin Sub - 1st 25 sq cm - Feet 1 -Epifix (per sq cm) -Epifix 18mm Disc 3 Pain Scale: 0-10 Numeric Is Patient Pain Free? Yes BRUNO - Nurse 3 - General Ulcer D/C NN Start: 04/01/23 12:45 Freq: Status: Active Protocol: Activity Type Activity Date Activity User E-sign Co-sign Detail Recorded Client Recorded Date Recorded By Document 04/01/23 12:45 RB [id number] 04/01/23 12:46 RB Document 04/06/23 11:35 RB [id number] 04/06/23 11:36 RB Document 04/08/23 11:33 MT [id number] 04/08/23 11:51 MT Document 04/13/23 11:27 RB [id number] 04/13/23 11:27 RB Document 04/19/23 11:08 MW Desktop 04/19/23 11:09 MW Document 04/27/23 11:43 BMF Desktop 04/27/23 11:44 BMF 04/01/23 04/06/23 04/08/23 12:45 11:35 11:33 Vital Signs Temperature (97.8 F-99.1 F) 96.8 F L 97 F L Temperature Source Temporal Temporal Pulse Rate (60-100) 81 64 Pulse Location Monitor Monitor Respiratory Rate (12-18) 18 18 Respiratory rate source Observation Observation Oxygen Delivery Method Room Air Blood Pressure (90/60-120/80) 113/89 H 146/87 H Blood Pressure Mean (mm Hg) 97 106 Source Monitor Monitor Position Semi-Fowlers Sitting Blood Pressure Location Left Arm Left Arm Pain Scale: 0-10 Numeric Is Patient Pain Free? Yes Yes Yes Teaching: Wound Center Dressing Your Wound -Person Taught Patient -Teaching Method Discussion, Demonstration -Response to teaching Verbalize understanding Wound Care Center Nurse 3 #1- R LAT FOOT -Ulcer Cleansing Soap and Water -Foul Odor after Cleansing -Negative Pressure Wound Therapy -Primary Dressing Applied Aquacel Extra Aquacel Extra Aquacel AG 4x4 -Other Dressing steri strips -Primary Dressing Covered/Secured with Dry Gauze,Dry Dry Gauze & Dry Gauze, Gauze & Roll Roll Gauze, Secured with Gauze,Secured Secured with Tape with Tape Tape -Other Covering -Aquacel Extra 1 1 -Aquacel AG 4x4 1 -Fibracol Plus 4x4 Treatment Response Procedure Procedure Tolerated Well Tolerated Well WC - Visit Discharge Discharge Condition Stable Stable Ambulatory Status Ambulatory Ambulatory Transportation Private Auto Private Auto Accompanied by Medication Reconcilliation completed & No No provided to patient/care provider Clinical Summary of Care Provided Yes Yes 04/13/23 04/19/23 04/27/23 11:27 11:08 11:43 Vital Signs Temperature (97.8 F-99.1 F) Temperature Source Pulse Rate (60-100) Pulse Location Respiratory Rate (12-18) Respiratory rate source Oxygen Delivery Method Blood Pressure (90/60-120/80) Blood Pressure Mean (mm Hg) Source Position Blood Pressure Location Pain Scale: 0-10 Numeric Is Patient Pain Free? Yes Yes Yes Teaching: Wound Center Dressing Your Wound -Person Taught Patient -Teaching Method Discussion -Response to teaching Verbalize understanding Wound Care Center Nurse 3 #1- R LAT FOOT -Ulcer Cleansing Rinsed/ Irrigated with Saline -Foul Odor after Cleansing No -Negative Pressure Wound Therapy N/A -Primary Dressing Applied Aquacel Extra Fibracol Plus Aquacel Extra 4x4 -Other Dressing EPIFIX -Primary Dressing Covered/Secured with Dry Gauze & Dry Gauze & Dry Gauze & Roll Gauze, Roll Gauze, Roll Gauze, Secured with Secured with Secured with Tape Tape Tape -Other Covering PER RB RN -Aquacel Extra 1 1 -Aquacel AG 4x4 -Fibracol Plus 4x4 1 Treatment Response Procedure Procedure Procedure Tolerated Well Tolerated Well Tolerated Well WC - Visit Discharge Discharge Condition Stable Stable Stable Ambulatory Status Ambulatory Ambulatory Ambulatory Transportation Private Auto Private Auto Private Auto Accompanied by self Medication Reconcilliation completed & No No provided to patient/care provider Clinical Summary of Care Provided Yes Yes Assessment/Plan Assessment/Plan (1) Diabetic foot ulcer associated with type 2 diabetes mellitus: CODE(S): E11.621 - Type 2 diabetes mellitus with foot ulcer; L97.509 - Non- pressure chronic ulcer of other part of unspecified foot with unspecified severity QUALIFIERS: Diabetic foot ulcer location: midfoot Laterality: right Non-pressure ulcer stage: with fat layer exposed Qualified Code(s): E11.621 - Type 2 diabetes mellitus with foot ulcer; L97.412 - Non-pressure chronic ulcer of right heel and midfoot with fat layer exposed PLAN: EpiFix #8 up applied with wound veil and Steri-Strips. Patient instructednot to bathe or get it wet Follow-up in 1 week continue Bactrim DS 1 p.o. twice daily for 14 days Follow-up sooner as needed (2) Decubitus ulcer of right foot, stage 2: CODE(S): L89.892 - Pressure ulcer of other site, stage 2 (3) Unspecified open wound of other part of head, initial encounter: CODE(S): S01.80XA - Unspecified open wound of other part of head, initial encounter PLAN: Left ear healed discontinue treatments 04/27/23 1342 <Electronically signed by Aliya Jones NP COMMERCIAL LOAN PROCESSOR-C> Cosigner Signature (if applicable): CC: ~ Signed [facility] Work Phone: 1(953) 486-444609-19-2023 Progress note Author Aliya Jones [facility] April 19, 2023 12:26pm Note Date/Time April 19, 2023 12:26pm [facility] [address] [place] [address] Progress Note - Wound Care 04/19/23 1223 MR#: [id number] Acct: [id number] Name: JUAN DAVID HERNÁNDEZ Rep #:[id number] : 1940 82 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 Jose Enrique Finney MD Status:RE G RCR Location: History of Present Illness Date of Service: 04/19/23 Chief Complaint: Follow-up on his left ear laceration from a tree branch and right lateral foot open wound from a blister that was over 1 month old. 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 He has poor hygiene habits. Had developed a blister from his shoe on the right lateral foot that is quite long about 4 cm x 1 cm wide. States it bled like everything because he is on Eliquis. Seeing bleeds stop to get the bleeding under control. Now has developed some slough and fibrous material in the center with I think over a venous vein. Patient has numbing and has no feeling in his lower leg but he does say his feetthrob. He does have many comorbidities such as A-fib diabetes does have a defibrillatorhigh cholesterol BPH Progress of Wound: Tolerating and doing very well on EpiFix this was #7 applied today. Patient andgroup staff on wound we will hold on EpiFix for 1 week start him on Bactrim DS has some reddened areas around the perimeter of the wound and some tenderness but the wound itself is measuring smaller. We will proceed with Promogran for the week and follow-up next week with EpiFix Subjective Subjective Patient is okay with that Objective Data Objective Data Signs of infection with increased pain and swelling and some redness he is stillmacerated around the edge but the wound is smaller still filling in with new tissue. Vital Signs: Vital Signs Temp Pulse Resp BP O2 Del Method 96.9 F L 86 16 119/67 Room Air 04/19/23 10:56 04/19/23 10:56 04/19/23 10:56 04/19/23 10:56 04/19/23 10:56 Oxygen Delivery Method Room Air Lab / Micro Data Attestation: I reviewed the patient's lab results. Micro: Microbiology 04/13/23 11:10 Wound - Right Foot Gram Stain - Final 04/13/23 11:10 Wound - Right Foot Wound Culture - Final Serratia marcescens 04/13/23 11:10 Wound - Right Foot Anaerobic Culture - Final No anaerobic bacteria isolated. Physical Exam Const oriented x3 General Appearance: cooperative Exam Limitations: no limitations HEENT normocephalic Head and Scalp: normal to inspection Face and Sinus: normal facial exam Nose: external nose normal General Ear: hearing grossly impaired External Ear: external ears normal Mouth: oral and palatal mucosa normal Eyes PERRL General Eye: normal appearance of both eyes Neck full ROM General: normal visual inspection Resp normal respiratory effort Effort and Inspection: able to speak in complete sentences Auscultation: clear to auscultation bilaterally Cardio regular rate and regular rhythm Palpation: normal PMI Rate: regular rate Rhythm: regular rhythm GI Auscultation: normoactive bowel sounds Palpation: soft and no hepatosplenomegaly external exam normal Back/Spine Cervical Spine: cervical ROM normal Thoracic Spine / Upper Back: normal to inspection Lumbar Spine / Lower Back: normal to inspection Extremity normal to inspection General Extremity: normal exam except as noted Skin Wounds: wounds noted Wound Narrative: Right lateral foot open wound from blister Left Pe?a superficial laceration in ear from trees branches Neuro oriented x3 Psych Appearance: grossly normal Speech: normal speech Thought Content: normal thought content Judgement: judgement good Debridement Note Debridement Note Post-Debridement Measurements and Additional Note: Post-Debridement Measurements/Treatment BRUNO - Nurse 1 - General Ulcer Assessment Start: 04/01/23 12:45 Freq: Status: Active Protocol: ALEJANDRO Activity Type Activity Date Activity User E-sign Co-sign Detail Recorded Client Recorded Date Recorded By Document 04/01/23 12:45 RB [id number] 04/01/23 12:46 RB Document 04/06/23 11:07 RB [id number] 04/06/23 11:09 RB Document 04/13/23 10:59 RB [id number] 04/13/23 11:00 RB Document 04/19/23 10:56 MW Desktop 04/19/23 11:02 MW 04/01/23 04/06/23 04/13/23 12:45 11:07 10:59 - Today's Visit Information Type of service Nurse-only Follow-up Visit Follow-up Visit Visit (Physician/CIVIL ENGINEERING DESIGNER (Physician/CIVIL ENGINEERING DESIGNER ) ) Arrival Mode Ambulatory Ambulatory Ambulatory Transfer Assistance None None None Accompanied by Patient Identification Verified (Name & Yes Yes Yes ) Patient Requires Transmission-Based No No No Precautions Safety Precautions Vital Signs Temperature (97.8 F-99.1 F) 96.8 F L 96.7 F L 96.8 F L Temperature Source Temporal Temporal Temporal Pulse Rate (60-100) 81 87 78 Pulse Location Monitor Monitor Monitor Respiratory Rate (12-18) 18 18 18 Respiratory rate source Observation Observation Observation Oxygen Delivery Method Blood Pressure (90/60-120/80) 113/89 H 111/65 117/71 Blood Pressure Mean (mm Hg) 97 80 86 Source Monitor Monitor Monitor Position Semi-Fowlers Semi-Fowlers Semi-Fowlers Blood Pressure Location Left Arm Left Arm Left Arm History Since Last Visit- (Skip if this is Patient's initial visit) Have you changed medications since your No No No last visit? Any new allergies or adverse reactions No No No Had a fall/change in ADL's that may No No No increase risk of falls Signs or symptoms of abuse and/or No No No neglect since last visit Have you been in the hospital since your No No No last visit? Has dressing in place as prescribed Yes Yes Yes Has compression in place as prescribed No No No Has offloadiing in place as prescribed Yes No No Experienced any changes in pain level or No No No management Left Footwear Right Footwear Pain Scale: 0-10 Numeric Is Patient Pain Free? Yes Yes Yes 04/19/23 10:56 WC - Today's Visit Information Type of service Follow-up Visit (Physician/CIVIL ENGINEERING DESIGNER ) Arrival Mode Ambulatory Transfer Assistance None Accompanied by self Patient Identification Verified (Name & Yes ) Patient Requires Transmission-Based No Precautions Safety Precautions NA Vital Signs Temperature (97.8 F-99.1 F) 96.9 F L Temperature Source Temporal Pulse Rate (60-100) 86 Pulse Location Monitor Respiratory Rate (12-18) 16 Respiratory rate source Observation Oxygen Delivery Method Room Air Blood Pressure (90/60-120/80) 119/67 Blood Pressure Mean (mm Hg) 84 Source Monitor Position Sitting Blood Pressure Location Right Arm History Since Last Visit- (Skip if this is Patient's initial visit) Have you changed medications since your No last visit? Any new allergies or adverse reactions No Had a fall/change in ADL's that may No increase risk of falls Signs or symptoms of abuse and/or No neglect since last visit Have you been in the hospital since your No last visit? Has dressing in place as prescribed Yes Has compression in place as prescribed N/A Has offloadiing in place as prescribed No Experienced any changes in pain level or No management Left Footwear Regular Shoe Right Footwear Regular Shoe Pain Scale: 0-10 Numeric Is Patient Pain Free? Yes WC - Nurse 1 - General Ulcer Measurement Start: 04/01/23 12:45 Freq: Status: Active Protocol: Activity Type Activity Date Activity User E-sign Co-sign Detail Recorded Client Recorded Date Recorded By Document 04/01/23 12:45 RB [id number] 04/01/23 12:46 RB Document 04/06/23 11:07 RB [id number] 04/06/23 11:09 RB Document 04/13/23 10:59 RB [id number] 04/13/23 11:00 RB Document 04/19/23 10:56 MW Desktop 04/19/23 11:02 MW 04/01/23 04/06/23 04/13/23 12:45 11:07 10:59 Wound Center Nurse 1 #1- R LAT FOOT -Combined with other wound No No -Current Size (cm) - Length 3 2.8 -Current Size (cm) - Width 1 0.9 -Current Size (cm) - Depth 0.1 0.1 -Total Square Cm 3 2.52 -Photo Taken Yes -Epithelialization -Tunneling No No -Undermining/Tunneling No No -Circular Undermining No No -Exudate Amt Medium Large -Exudate Type Serosanguineous Serosanguineous -Wound Margin Distinct, Distinct, Outline Outline Attached Attached -Granulation Amt Medium (34-66%) Medium (34-66%) -Granulation Quality Oxly Oxly -Slough/Fibrin Yes Yes -Necrosis Amt Medium (34-66%) Medium (34-66%) -Necrotic Tissue Type Adherent Slough Adherent Slough -Structure Exposed N/A N/A -Texture (Laya-wound Skin Appearance) Assessed Assessed, Scarring -Moisture (Laya-wound Skin Appearance) Maceration Assessed -Color (Laya-wound Skin Appearance) Assessed Assessed -Temperature (Laya-wound Skin No Abnormality No Abnormality Appearance) (Pt Warm) (Pt Warm) -Tenderness on Palpation (Laya-wound No No Skin Appearance) -Ulcer Cleansing Wound Cleanser Wound Cleanser -Foul Odor after Cleansing No No -Anesthetic Used 5% Lidocaine 5% Lidocaine Gel Gel -Wound Comment(s) steristrips intact Lower Limb Edema Present Yes Right Calf (cm) 33.8 Right Ankle (cm) 21.8 04/19/23 10:56 Wound Center Nurse 1 #1- R LAT FOOT -Combined with other wound No -Current Size (cm) - Length 2.3 -Current Size (cm) - Width 0.7 -Current Size (cm) - Depth 0.2 -Total Square Cm 1.61 -Photo Taken No -Epithelialization None Present -Tunneling No -Undermining/Tunneling No -Circular Undermining No -Exudate Amt Medium -Exudate Type Serosanguineous -Wound Margin Flat & Intact -Granulation Amt Large (67-100%) -Granulation Quality Oxly -Slough/Fibrin Yes -Necrosis Amt Small (1-33%) -Necrotic Tissue Type Adherent Slough -Structure Exposed N/A -Texture (Laya-wound Skin Appearance) Assessed, Scarring -Moisture (Laya-wound Skin Appearance) Assessed, Maceration -Color (Laya-wound Skin Appearance) No Abnormality, Assessed -Temperature (Laya-wound Skin No Abnormality Appearance) (Pt Warm) -Tenderness on Palpation (Laya-wound No Skin Appearance) -Ulcer Cleansing Soap and Water -Foul Odor after Cleansing No -Anesthetic Used 5% Lidocaine Gel -Wound Comment(s) Lower Limb Edema Present No Right Calf (cm) Right Ankle (cm) WC - Nurse 2 - General Ulcer CM Notes Start: 04/01/23 12:45 Freq: Status: Active Protocol: Activity Type Activity Date Activity User E-sign Co-sign Detail Recorded Client Recorded Date Recorded By Document 04/06/23 11:24 MW [id number] 04/06/23 11:30 MW Document 04/13/23 11:06 MW [id number] 04/13/23 11:13 MW Edit Result 04/13/23 11:06 MW (1) [id number] 04/14/23 06:36 PL Document 04/19/23 11:04 MW Desktop 04/19/23 11:08 MW (1) #1- R LAT FOOT - Apply Skin Sub - 1st 25 sq cm - Feet => 1 - Apply Skin Sub - each addt'l 25 sq cm 1 => - Feet 04/06/23 04/13/23 04/19/23 11:24 11:06 11:04 Wound Center Nurse 2 #1- R LAT FOOT -Time 11:25 11:08 11:05 -Correct Patient Yes Yes Yes -Correct Side, Site, Position Yes Yes Yes -Correct Procedure Yes Yes Yes -Procedure Performed Yes Yes Yes -Type of Procedure Debridement Debridement Debridement -Clinical Debridement Subcutaneous Subcutaneous Subcutaneous -Tissue Removed Subcutaneous Subcutaneous Subcutaneous -Post Debridement (cm) - Length 2.2 2.2 2.5 -Post Debridement (cm) - Width 1.0 0.9 0.7 -Post Debridement (cm) - Depth 0.2 0.2 0.2 -Total Square (Post) (cm) 2.20 1.98 1.75 -Area of Debridement (cm) - Length 2.2 2.2 2.5 -Area of Debridement (cm) - Width 1.0 0.9 0.7 -Total Square (Area) (cm) 2.20 1.98 1.75 -Tunneling No No No -Undermining/Tunneling No No No -Circular Undermining No No No -Wound/Ulcer Outcome Not Healed Not Healed Not Healed -Ulcer Cleansing Rinsed/ Rinsed/ Rinsed/ Irrigated with Irrigated with Irrigated with Saline Saline Saline -Foul Odor after Cleansing No No No -Bioengineered Tissue Yes Yes No -Type of Bioengineered Tissue Epifix Epifix 18mm Disc -Expiration Date 11/30/27 12/31/27 -Product Lot Number [id number] -Percent Used 100 100 -Lot number of Saline Used [id number] -Bleeding Controlled with Pressure Pressure Pressure -Treatment Response Procedure Procedure Procedure Tolerated Well Tolerated Well Tolerated Well -Offloading No No No -Debridement - Subq, 1st 20sq cm No No Yes -Apply Skin Sub - 1st 25 sq cm - Feet 1 1 -Epifix (per sq cm) 4 -Epifix 18mm Disc 3 Pain Scale: 0-10 Numeric Is Patient Pain Free? Yes Yes Yes WC - Nurse 3 - General Ulcer D/C NN Start: 04/01/23 12:45 Freq: Status: Active Protocol: Activity Type Activity Date Activity User E-sign Co-sign Detail Recorded Client Recorded Date Recorded By Document 04/01/23 12:45 RB [id number] 04/01/23 12:46 RB Document 04/06/23 11:35 RB [id number] 04/06/23 11:36 RB Document 04/08/23 11:33 MT [id number] 04/08/23 11:51 MT Document 04/13/23 11:27 RB [id number] 04/13/23 11:27 RB Document 04/19/23 11:08 MW Desktop 04/19/23 11:09 MW 04/01/23 04/06/23 04/08/23 12:45 11:35 11:33 Vital Signs Temperature (97.8 F-99.1 F) 96.8 F L 97 F L Temperature Source Temporal Temporal Pulse Rate (60-100) 81 64 Pulse Location Monitor Monitor Respiratory Rate (12-18) 18 18 Respiratory rate source Observation Observation Oxygen Delivery Method Room Air Blood Pressure (90/60-120/80) 113/89 H 146/87 H Blood Pressure Mean (mm Hg) 97 106 Source Monitor Monitor Position Semi-Fowlers Sitting Blood Pressure Location Left Arm Left Arm Pain Scale: 0-10 Numeric Is Patient Pain Free? Yes Yes Yes Teaching: Wound Center Dressing Your Wound -Person Taught Patient -Teaching Method Discussion, Demonstration -Response to teaching Verbalize understanding Wound Care Center Nurse 3 #1- R LAT FOOT -Ulcer Cleansing Soap and Water -Foul Odor after Cleansing -Negative Pressure Wound Therapy -Primary Dressing Applied Aquacel Extra Aquacel Extra Aquacel AG 4x4 -Other Dressing steri strips -Primary Dressing Covered/Secured with Dry Gauze,Dry Dry Gauze & Dry Gauze, Gauze & Roll Roll Gauze, Secured with Gauze,Secured Secured with Tape with Tape Tape -Aquacel Extra 1 1 -Aquacel AG 4x4 1 -Fibracol Plus 4x4 Treatment Response Procedure Procedure Tolerated Well Tolerated Well WC - Visit Discharge Discharge Condition Stable Stable Ambulatory Status Ambulatory Ambulatory Transportation Private Auto Private Auto Accompanied by Medication Reconcilliation completed & No No provided to patient/care provider Clinical Summary of Care Provided Yes Yes 04/13/23 04/19/23 11:27 11:08 Vital Signs Temperature (97.8 F-99.1 F) Temperature Source Pulse Rate (60-100) Pulse Location Respiratory Rate (12-18) Respiratory rate source Oxygen Delivery Method Blood Pressure (90/60-120/80) Blood Pressure Mean (mm Hg) Source Position Blood Pressure Location Pain Scale: 0-10 Numeric Is Patient Pain Free? Yes Yes Teaching: Wound Center Dressing Your Wound -Person Taught Patient -Teaching Method Discussion -Response to teaching Verbalize understanding Wound Care Center Nurse 3 #1- R LAT FOOT -Ulcer Cleansing Rinsed/ Irrigated with Saline -Foul Odor after Cleansing No -Negative Pressure Wound Therapy N/A -Primary Dressing Applied Aquacel Extra Fibracol Plus 4x4 -Other Dressing -Primary Dressing Covered/Secured with Dry Gauze & Dry Gauze & Roll Gauze, Roll Gauze, Secured with Secured with Tape Tape -Aquacel Extra 1 -Aquacel AG 4x4 -Fibracol Plus 4x4 1 Treatment Response Procedure Procedure Tolerated Well Tolerated Well WC - Visit Discharge Discharge Condition Stable Stable Ambulatory Status Ambulatory Ambulatory Transportation Private Auto Private Auto Accompanied by self Medication Reconcilliation completed & No No provided to patient/care provider Clinical Summary of Care Provided Yes Yes Assessment/Plan Assessment/Plan (1) Diabetic foot ulcer associated with type 2 diabetes mellitus: CODE(S): E11.621 - Type 2 diabetes mellitus with foot ulcer; L97.509 - Non- pressure chronic ulcer of other part of unspecified foot with unspecified severity QUALIFIERS: Diabetic foot ulcer location: midfoot Laterality: right Non-pressure ulcer stage: with fat layer exposed Qualified Code(s): E11.621 - Type 2 diabetes mellitus with foot ulcer; L97.412 - Non-pressure chronic ulcer of right heel and midfoot with fat layer exposed PLAN: Hold on EpiFix apply Promogran to wound base moistened with gauze dressingover top Bactrim DS 1 p.o. twice daily for 14 days (2) Decubitus ulcer of right foot, stage 2: CODE(S): L89.892 - Pressure ulcer of other site, stage 2 (3) Unspecified open wound of other part of head, initial encounter: CODE(S): S01.80XA - Unspecified open wound of other part of head, initial encounter PLAN: Left ear healed discontinue treatments 04/19/23 1226 <Electronically signed by Aliya Jones NP, NP-C> Cosigner Signature (if applicable): CC: ~ Signed [facility] Work Phone: [phone]) 435-746209-13-2023 Progress note Author Aliya Jones [facility] April 13, 2023 11:42am Note Date/Time April 13, 2023 11:42am [facility] [address] [place] [id number] Progress Note - Wound Care 04/13/23 1138 MR#: [id number] Acct: [id number] Name: JUAN DAVID HERNÁNDEZ Rep #:[id number] : 1940 82 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 Jose Enrique Finney MD Status:RE G RCR Location: History of Present Illness Date of Service: 04/13/23 Chief Complaint: Follow-up on his left ear laceration from a tree branch and right lateral foot open wound from a blister that was over 1 month old. 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 He has poor hygiene habits. Had developed a blister from his shoe on the right lateral foot that is quite long about 4 cm x 1 cm wide. States it bled like everything because he is on Eliquis. Seeing bleeds stop to get the bleeding under control. Now has developed some slough and fibrous material in the center with I think over a venous vein. Patient has numbing and has no feeling in his lower leg but he does say his feetthrob. He does have many comorbidities such as A-fib diabetes does have a defibrillatorhigh cholesterol BPH Progress of Wound: Tolerating and doing very well on EpiFix this was #6 applied today. The top half has healed closed were dealing with a deeper lower half of the wound on theleft right lateral foot. Patient complaining of increased pain noted some redness around the perimeter of wound. Subjective Subjective We will obtain cultures this week and call with the results Patient states he needs something stronger for pain Objective Data Objective Data The site is about the same size but does have increased redness around the perimeter of the wound that did not show last week Obtained cultures we will call with results Vital Signs: Vital Signs Temp Pulse Resp BP O2 Del Method 96.8 F L 78 18 117/71 Room Air 04/13/23 10:59 04/13/23 10:59 04/13/23 10:59 04/13/23 10:59 04/08/23 11:33 Oxygen Delivery Method Room Air Lab / Micro Data Attestation: I reviewed the patient's lab results. Physical Exam Const oriented x3 General Appearance: cooperative Exam Limitations: no limitations HEENT normocephalic Head and Scalp: normal to inspection Face and Sinus: normal facial exam Nose: external nose normal General Ear: hearing grossly impaired External Ear: external ears normal Mouth: oral and palatal mucosa normal Eyes PERRL General Eye: normal appearance of both eyes Neck full ROM General: normal visual inspection Resp normal respiratory effort Effort and Inspection: able to speak in complete sentences Auscultation: clear to auscultation bilaterally Cardio regular rate and regular rhythm Palpation: normal PMI Rate: regular rate Rhythm: regular rhythm GI Auscultation: normoactive bowel sounds Palpation: soft and no hepatosplenomegaly external exam normal Back/Spine Cervical Spine: cervical ROM normal Thoracic Spine / Upper Back: normal to inspection Lumbar Spine / Lower Back: normal to inspection Extremity normal to inspection General Extremity: normal exam except as noted Skin Wounds: wounds noted Wound Narrative: Right lateral foot open wound from blister Left Pe?a superficial laceration in ear from trees branches Neuro oriented x3 Psych Appearance: grossly normal Speech: normal speech Thought Content: normal thought content Judgement: judgement good Debridement Note Debridement Note Wound debrided: Right lateral diabetic foot ulcer Wound Grade/Stage: Stage II Type of Debridement: Excisional debridement Anesthesia Used: 5% Lidocaine Gel Depth: in the subcutaneous layer Percentage of wound debrided: 100 Instrument Used: 5mm curette Severity: Fat Layer Exposed Amount of bleeding with debridement: None Bleeding Controlled with: Compression and gauze Patient tolerated procedure: Patient tolerated procedure well Post-Debridement Measurements and Additional Note: Post-Debridement Measurements/Treatment - Nurse 1 - General Ulcer Assessment Start: 04/01/23 12:45 Freq: Status: Active Protocol: ALEJANDRO Activity Type Activity Date Activity User E-sign Co-sign Detail Recorded Client Recorded Date Recorded By Document 04/01/23 12:45 RB [id number] 04/01/23 12:46 RB Document 04/06/23 11:07 RB [id number] 04/06/23 11:09 RB Document 04/13/23 10:59 RB [id number] 04/13/23 11:00 RB 04/01/23 04/06/23 04/13/23 12:45 11:07 10:59 - Today's Visit Information Type of service Nurse-only Follow-up Visit Follow-up Visit Visit (Physician/CIVIL ENGINEERING DESIGNER (Physician/CIVIL ENGINEERING DESIGNER ) ) Arrival Mode Ambulatory Ambulatory Ambulatory Transfer Assistance None None None Patient Identification Verified (Name & Yes Yes Yes ) Patient Requires Transmission-Based No No No Precautions Vital Signs Temperature (97.8 F-99.1 F) 96.8 F L 96.7 F L 96.8 F L Temperature Source Temporal Temporal Temporal Pulse Rate (60-100) 81 87 78 Pulse Location Monitor Monitor Monitor Respiratory Rate (12-18) 18 18 18 Respiratory rate source Observation Observation Observation Blood Pressure (90/60-120/80) 113/89 H 111/65 117/71 Blood Pressure Mean (mm Hg) 97 80 86 Source Monitor Monitor Monitor Position Semi-Fowlers Semi-Fowlers Semi-Fowlers Blood Pressure Location Left Arm Left Arm Left Arm History Since Last Visit- (Skip if this is Patient's initial visit) Have you changed medications since your No No No last visit? Any new allergies or adverse reactions No No No Had a fall/change in ADL's that may No No No increase risk of falls Signs or symptoms of abuse and/or No No No neglect since last visit Have you been in the hospital since your No No No last visit? Has dressing in place as prescribed Yes Yes Yes Has compression in place as prescribed No No No Has offloadiing in place as prescribed Yes No No Experienced any changes in pain level or No No No management Pain Scale: 0-10 Numeric Is Patient Pain Free? Yes Yes Yes WC - Nurse 1 - General Ulcer Measurement Start: 04/01/23 12:45 Freq: Status: Active Protocol: Activity Type Activity Date Activity User E-sign Co-sign Detail Recorded Client Recorded Date Recorded By Document 04/01/23 12:45 RB [id number] 04/01/23 12:46 RB Document 04/06/23 11:07 RB [id number] 04/06/23 11:09 RB Document 04/13/23 10:59 RB [id number] 04/13/23 11:00 RB 04/01/23 04/06/23 04/13/23 12:45 11:07 10:59 Wound Center Nurse 1 #1- R LAT FOOT -Combined with other wound No No -Current Size (cm) - Length 3 2.8 -Current Size (cm) - Width 1 0.9 -Current Size (cm) - Depth 0.1 0.1 -Total Square Cm 3 2.52 -Photo Taken Yes -Tunneling No No -Undermining/Tunneling No No -Circular Undermining No No -Exudate Amt Medium Large -Exudate Type Serosanguineous Serosanguineous -Wound Margin Distinct, Distinct, Outline Outline Attached Attached -Granulation Amt Medium (34-66%) Medium (34-66%) -Granulation Quality Oxly Oxly -Slough/Fibrin Yes Yes -Necrosis Amt Medium (34-66%) Medium (34-66%) -Necrotic Tissue Type Adherent Slough Adherent Slough -Structure Exposed N/A N/A -Texture (Laya-wound Skin Appearance) Assessed Assessed, Scarring -Moisture (Laya-wound Skin Appearance) Maceration Assessed -Color (Laya-wound Skin Appearance) Assessed Assessed -Temperature (Laya-wound Skin No Abnormality No Abnormality Appearance) (Pt Warm) (Pt Warm) -Tenderness on Palpation (Laya-wound No No Skin Appearance) -Ulcer Cleansing Wound Cleanser Wound Cleanser -Foul Odor after Cleansing No No -Anesthetic Used 5% Lidocaine 5% Lidocaine Gel Gel -Wound Comment(s) steristrips intact Lower Limb Edema Present Yes Right Calf (cm) 33.8 Right Ankle (cm) 21.8 WC - Nurse 2 - General Ulcer CM Notes Start: 04/01/23 12:45 Freq: Status: Active Protocol: Activity Type Activity Date Activity User E-sign Co-sign Detail Recorded Client Recorded Date Recorded By Document 04/06/23 11:24 MW [id number] 04/06/23 11:30 MW Document 04/13/23 11:06 MW [id number] 04/13/23 11:13 MW 04/06/23 04/13/23 11:24 11:06 Wound Center Nurse 2 #1- R LAT FOOT -Time 11:25 11:08 -Correct Patient Yes Yes -Correct Side, Site, Position Yes Yes -Correct Procedure Yes Yes -Procedure Performed Yes Yes -Type of Procedure Debridement Debridement -Clinical Debridement Subcutaneous Subcutaneous -Tissue Removed Subcutaneous Subcutaneous -Post Debridement (cm) - Length 2.2 2.2 -Post Debridement (cm) - Width 1.0 0.9 -Post Debridement (cm) - Depth 0.2 0.2 -Total Square (Post) (cm) 2.20 1.98 -Area of Debridement (cm) - Length 2.2 2.2 -Area of Debridement (cm) - Width 1.0 0.9 -Total Square (Area) (cm) 2.20 1.98 -Tunneling No No -Undermining/Tunneling No No -Circular Undermining No No -Wound/Ulcer Outcome Not Healed Not Healed -Ulcer Cleansing Rinsed/ Rinsed/ Irrigated with Irrigated with Saline Saline -Foul Odor after Cleansing No No -Bioengineered Tissue Yes Yes -Type of Bioengineered Tissue Epifix Epifix 18mm Disc -Expiration Date 11/30/27 12/31/27 -Product Lot Number [id number] -Percent Used 100 100 -Lot number of Saline Used [id number] -Bleeding Controlled with Pressure Pressure -Treatment Response Procedure Procedure Tolerated Well Tolerated Well -Offloading No No -Debridement - Subq, 1st 20sq cm No No -Apply Skin Sub - 1st 25 sq cm - Feet 1 -Apply Skin Sub - each addt'l 25 sq cm 1 - Feet -Epifix (per sq cm) 4 -Epifix 18mm Disc 3 Pain Scale: 0-10 Numeric Is Patient Pain Free? Yes Yes - Nurse 3 - General Ulcer D/C NN Start: 04/01/23 12:45 Freq: Status: Active Protocol: Activity Type Activity Date Activity User E-sign Co-sign Detail Recorded Client Recorded Date Recorded By Document 04/01/23 12:45 RB [id number] 04/01/23 12:46 RB Document 04/06/23 11:35 RB [id number] 04/06/23 11:36 RB Document 04/08/23 11:33 MT [id number] 04/08/23 11:51 MT Document 04/13/23 11:27 RB [id number] 04/13/23 11:27 RB 04/01/23 04/06/23 04/08/23 12:45 11:35 11:33 Vital Signs Temperature (97.8 F-99.1 F) 96.8 F L 97 F L Temperature Source Temporal Temporal Pulse Rate (60-100) 81 64 Pulse Location Monitor Monitor Respiratory Rate (12-18) 18 18 Respiratory rate source Observation Observation Oxygen Delivery Method Room Air Blood Pressure (90/60-120/80) 113/89 H 146/87 H Blood Pressure Mean (mm Hg) 97 106 Source Monitor Monitor Position Semi-Fowlers Sitting Blood Pressure Location Left Arm Left Arm Pain Scale: 0-10 Numeric Is Patient Pain Free? Yes Yes Yes Teaching: Wound Center Dressing Your Wound -Person Taught Patient -Teaching Method Discussion, Demonstration -Response to teaching Verbalize understanding Wound Care Center Nurse 3 #1- R LAT FOOT -Ulcer Cleansing Soap and Water -Primary Dressing Applied Aquacel Extra Aquacel Extra Aquacel AG 4x4 -Other Dressing steri strips -Primary Dressing Covered/Secured with Dry Gauze,Dry Dry Gauze & Dry Gauze, Gauze & Roll Roll Gauze, Secured with Gauze,Secured Secured with Tape with Tape Tape -Aquacel Extra 1 1 -Aquacel AG 4x4 1 Treatment Response Procedure Procedure Tolerated Well Tolerated Well WC - Visit Discharge Discharge Condition Stable Stable Ambulatory Status Ambulatory Ambulatory Transportation Private Auto Private Auto Medication Reconcilliation completed & No No provided to patient/care provider Clinical Summary of Care Provided Yes Yes 04/13/23 11:27 Vital Signs Temperature (97.8 F-99.1 F) Temperature Source Pulse Rate (60-100) Pulse Location Respiratory Rate (12-18) Respiratory rate source Oxygen Delivery Method Blood Pressure (90/60-120/80) Blood Pressure Mean (mm Hg) Source Position Blood Pressure Location Pain Scale: 0-10 Numeric Is Patient Pain Free? Yes Teaching: Wound Center Dressing Your Wound -Person Taught -Teaching Method -Response to teaching Wound Care Center Nurse 3 #1- R LAT FOOT -Ulcer Cleansing -Primary Dressing Applied Aquacel Extra -Other Dressing -Primary Dressing Covered/Secured with Dry Gauze & Roll Gauze, Secured with Tape -Aquacel Extra 1 -Aquacel AG 4x4 Treatment Response Procedure Tolerated Well WC - Visit Discharge Discharge Condition Stable Ambulatory Status Ambulatory Transportation Private Auto Medication Reconcilliation completed & No provided to patient/care provider Clinical Summary of Care Provided Yes Assessment/Plan Assessment/Plan (1) Diabetic foot ulcer associated with type 2 diabetes mellitus: CODE(S): E11.621 - Type 2 diabetes mellitus with foot ulcer; L97.509 - Non- pressure chronic ulcer of other part of unspecified foot with unspecified severity QUALIFIERS: Diabetic foot ulcer location: midfoot Laterality: right Non-pressure ulcer stage: with fat layer exposed Qualified Code(s): E11.621 - Type 2 diabetes mellitus with foot ulcer; L97.412 - Non-pressure chronic ulcer of right heel and midfoot with fat layer exposed PLAN: Applied EpiFix #7 to right lateral foot veil was covered and Aquacel extrawas placed on top for extra red of protection against infection. Patient is told he cannot get wet.\ Obtained cultures we will call with results Follow-up in 1 week (2) Decubitus ulcer of right foot, stage 2: CODE(S): L89.892 - Pressure ulcer of other site, stage 2 (3) Unspecified open wound of other part of head, initial encounter: CODE(S): S01.80XA - Unspecified open wound of other part of head, initial encounter PLAN: Left ear healed discontinue treatments 04/13/23 1142 <Electronically signed by Aliay Jones COMMERCIAL LOAN PROCESSOR COMMERCIAL LOAN PROCESSOR-C> Cosigner Signature (if applicable): CC: ~ Signed [facility] Work Phone: [phone]) 321-694409-06-2023 Progress note Author Aliya Jones [facility] April 06, 2023 12:31pm Note Date/Time April 06, 2023 12:31pm [facility] [address] [place] [address] Progress Note - Wound Care 04/06/23 1228 MR#: [id number] Acct: [id number] Name: JUAN DAVID HERNÁNDEZ Rep #:[id number] : 1940 82 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 Jose Enrique Finney MD Status:RE G RCR Location: History of Present Illness Date of Service: 04/06/23 Chief Complaint: Follow-up on his left ear laceration from a tree branch and right lateral foot open wound from a blister that was over 1 month old. 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 He has poor hygiene habits. Had developed a blister from his shoe on the right lateral foot that is quite long about 4 cm x 1 cm wide. States it bled like everything because he is on Eliquis. Seeing bleeds stop to get the bleeding under control. Now has developed some slough and fibrous material in the center with I think over a venous vein. Patient has numbing and has no feeling in his lower leg but he does say his feetthrob. He does have many comorbidities such as A-fib diabetes does have a defibrillatorhigh cholesterol BPH Progress of Wound: Tolerating and doing very well on EpiFix this was #6 2 applied today. The top half has healed closed were dealing with a deeper lower half of the wound on theleft right lateral foot. No sign of infection redness or maceration. Patient has been coming on Fridays for dressing changed which is helped a lot. Subjective Subjective Patient states he will come in 1 more time for Tuesday change Objective Data Objective Data No sign of infection healing pretty good smaller in size we will continue with EpiFix Vital Signs: Vital Signs Temp Pulse Resp BP 96.7 F L 87 18 111/65 04/06/23 11:07 04/06/23 11:07 04/06/23 11:07 04/06/23 11:07 Lab / Micro Data Attestation: I reviewed the patient's lab results. Physical Exam Const oriented x3 General Appearance: cooperative Exam Limitations: no limitations HEENT normocephalic Head and Scalp: normal to inspection Face and Sinus: normal facial exam Nose: external nose normal General Ear: hearing grossly impaired External Ear: external ears normal Mouth: oral and palatal mucosa normal Eyes PERRL General Eye: normal appearance of both eyes Neck full ROM General: normal visual inspection Resp normal respiratory effort Effort and Inspection: able to speak in complete sentences Auscultation: clear to auscultation bilaterally Cardio regular rate and regular rhythm Palpation: normal PMI Rate: regular rate Rhythm: regular rhythm GI Auscultation: normoactive bowel sounds Palpation: soft and no hepatosplenomegaly external exam normal Back/Spine Cervical Spine: cervical ROM normal Thoracic Spine / Upper Back: normal to inspection Lumbar Spine / Lower Back: normal to inspection Extremity normal to inspection General Extremity: normal exam except as noted Skin Wounds: wounds noted Wound Narrative: Right lateral foot open wound from blister Left Pe?a superficial laceration in ear from trees branches Neuro oriented x3 Psych Appearance: grossly normal Speech: normal speech Thought Content: normal thought content Judgement: judgement good Debridement Note Debridement Note Wound debrided: Right lateral foot diabetic foot ulcer Wound Grade/Stage: Stage II Type of Debridement: Excisional debridement Anesthesia Used: 5% Lidocaine Gel Depth: Down to and including healthy tissue and in the subcutaneous layer Percentage of wound debrided: 100 Instrument Used: 5mm curette Severity: Fat Layer Exposed Amount of bleeding with debridement: Mild Bleeding Controlled with: Compression and gauze Patient tolerated procedure: Patient tolerated procedure well Post-Debridement Measurements and Additional Note: Post-Debridement Measurements/Treatment WC - Nurse 1 - General Ulcer Assessment Start: 04/01/23 12:45 Freq: Status: Active Protocol: ALEJANDRO Activity Type Activity Date Activity User E-sign Co-sign Detail Recorded Client Recorded Date Recorded By Document 04/01/23 12:45 RB [id number] 04/01/23 12:46 RB Document 04/06/23 11:07 RB [id number] 04/06/23 11:09 RB 04/01/23 04/06/23 12:45 11:07 - Today's Visit Information Type of service Nurse-only Follow-up Visit Visit (Physician/CIVIL ENGINEERING DESIGNER ) Arrival Mode Ambulatory Ambulatory Transfer Assistance None None Patient Identification Verified (Name & Yes Yes ) Patient Requires Transmission-Based No No Precautions Vital Signs Temperature (97.8 F-99.1 F) 96.8 F L 96.7 F L Temperature Source Temporal Temporal Pulse Rate (60-100) 81 87 Pulse Location Monitor Monitor Respiratory Rate (12-18) 18 18 Respiratory rate source Observation Observation Blood Pressure (90/60-120/80) 113/89 H 111/65 Blood Pressure Mean (mm Hg) 97 80 Source Monitor Monitor Position Semi-Fowlers Semi-Fowlers Blood Pressure Location Left Arm Left Arm History Since Last Visit- (Skip if this is Patient's initial visit) Have you changed medications since your No No last visit? Any new allergies or adverse reactions No No Had a fall/change in ADL's that may No No increase risk of falls Signs or symptoms of abuse and/or No No neglect since last visit Have you been in the hospital since your No No last visit? Has dressing in place as prescribed Yes Yes Has compression in place as prescribed No No Has offloadiing in place as prescribed Yes No Experienced any changes in pain level or No No management Pain Scale: 0-10 Numeric Is Patient Pain Free? Yes Yes - Nurse 1 - General Ulcer Measurement Start: 04/01/23 12:45 Freq: Status: Active Protocol: Activity Type Activity Date Activity User E-sign Co-sign Detail Recorded Client Recorded Date Recorded By Document 04/01/23 12:45 [id number] 04/01/23 12:46 RB Document 04/06/23 11:07 [id number] 04/06/23 11:09 RB 04/01/23 04/06/23 12:45 11:07 Wound Center Nurse 1 #1- R LAT FOOT -Combined with other wound No -Current Size (cm) - Length 3 -Current Size (cm) - Width 1 -Current Size (cm) - Depth 0.1 -Total Square Cm 3 -Tunneling No -Undermining/Tunneling No -Circular Undermining No -Exudate Amt Medium -Exudate Type Serosanguineous -Wound Margin Distinct, Outline Attached -Granulation Amt Medium (34-66%) -Granulation Quality Oxly -Slough/Fibrin Yes -Necrosis Amt Medium (34-66%) -Necrotic Tissue Type Adherent Slough -Structure Exposed N/A -Texture (Laya-wound Skin Appearance) Assessed -Moisture (Laya-wound Skin Appearance) Maceration -Color (Laya-wound Skin Appearance) Assessed -Temperature (Laya-wound Skin No Abnormality Appearance) (Pt Warm) -Tenderness on Palpation (Laya-wound No Skin Appearance) -Ulcer Cleansing Wound Cleanser -Foul Odor after Cleansing No -Anesthetic Used 5% Lidocaine Gel -Wound Comment(s) steristrips intact Lower Limb Edema Present Yes Right Calf (cm) 33.8 Right Ankle (cm) 21.8 WC - Nurse 2 - General Ulcer CM Notes Start: 04/01/23 12:45 Freq: Status: Active Protocol: Activity Type Activity Date Activity User E-sign Co-sign Detail Recorded Client Recorded Date Recorded By Document 04/06/23 11:24 MW [id number] 04/06/23 11:30 MW 04/06/23 11:24 Wound Center Nurse 2 #1- R LAT FOOT -Time 11:25 -Correct Patient Yes -Correct Side, Site, Position Yes -Correct Procedure Yes -Procedure Performed Yes -Type of Procedure Debridement -Clinical Debridement Subcutaneous -Tissue Removed Subcutaneous -Post Debridement (cm) - Length 2.2 -Post Debridement (cm) - Width 1.0 -Post Debridement (cm) - Depth 0.2 -Total Square (Post) (cm) 2.20 -Area of Debridement (cm) - Length 2.2 -Area of Debridement (cm) - Width 1.0 -Total Square (Area) (cm) 2.20 -Tunneling No -Undermining/Tunneling No -Circular Undermining No -Wound/Ulcer Outcome Not Healed -Ulcer Cleansing Rinsed/ Irrigated with Saline -Foul Odor after Cleansing No -Bioengineered Tissue Yes -Type of Bioengineered Tissue Epifix -Expiration Date 11/30/27 -Product Lot Number [id number] -Percent Used 100 -Lot number of Saline Used [id number] -Bleeding Controlled with Pressure -Treatment Response Procedure Tolerated Well -Offloading No -Debridement - Subq, 1st 20sq cm No -Apply Skin Sub - 1st 25 sq cm - Feet 1 -Epifix (per sq cm) 4 Pain Scale: 0-10 Numeric Is Patient Pain Free? Yes - Nurse 3 - General Ulcer D/C NN Start: 04/01/23 12:45 Freq: Status: Active Protocol: Activity Type Activity Date Activity User E-sign Co-sign Detail Recorded Client Recorded Date Recorded By Document 04/01/23 12:45 RB [id number] 04/01/23 12:46 RB Document 04/06/23 11:35 RB [id number] 04/06/23 11:36 RB 04/01/23 04/06/23 12:45 11:35 Vital Signs Temperature (97.8 F-99.1 F) 96.8 F L Temperature Source Temporal Pulse Rate (60-100) 81 Pulse Location Monitor Respiratory Rate (12-18) 18 Respiratory rate source Observation Blood Pressure (90/60-120/80) 113/89 H Blood Pressure Mean (mm Hg) 97 Source Monitor Position Semi-Fowlers Blood Pressure Location Left Arm Pain Scale: 0-10 Numeric Is Patient Pain Free? Yes Yes Teaching: Wound Center Dressing Your Wound -Person Taught Patient -Teaching Method Discussion, Demonstration -Response to teaching Verbalize understanding Wound Care Center Nurse 3 #1- R LAT FOOT -Primary Dressing Applied Aquacel Extra Aquacel Extra -Primary Dressing Covered/Secured with Dry Gauze,Dry Dry Gauze & Gauze & Roll Roll Gauze, Gauze,Secured Secured with with Tape Tape -Aquacel Extra 1 1 Treatment Response Procedure Procedure Tolerated Well Tolerated Well WC - Visit Discharge Discharge Condition Stable Stable Ambulatory Status Ambulatory Ambulatory Transportation Private Auto Private Auto Medication Reconcilliation completed & No No provided to patient/care provider Clinical Summary of Care Provided Yes Yes Assessment/Plan Assessment/Plan (1) Diabetic foot ulcer associated with type 2 diabetes mellitus: CODE(S): E11.621 - Type 2 diabetes mellitus with foot ulcer; L97.509 - Non- pressure chronic ulcer of other part of unspecified foot with unspecified severity QUALIFIERS: Diabetic foot ulcer location: midfoot Laterality: right Non-pressure ulcer stage: with fat layer exposed Qualified Code(s): E11.621 - Type 2 diabetes mellitus with foot ulcer; L97.412 - Non-pressure chronic ulcer of right heel and midfoot with fat layer exposed PLAN: Applied EpiFix #6 to right lateral foot veil was covered and Aquacel extrawas placed on top for extra red of protection against infection. Patient is told he cannot get wet.\ Follow-up in 1 week (2) Decubitus ulcer of right foot, stage 2: CODE(S): L89.892 - Pressure ulcer of other site, stage 2 (3) Unspecified open wound of other part of head, initial encounter: CODE(S): S01.80XA - Unspecified open wound of other part of head, initial encounter PLAN: Left ear healed discontinue treatments 04/06/23 1231 <Electronically signed by Aliya Jones NP COMMERCIAL LOAN PROCESSOR-C> Cosigner Signature (if applicable): CC: ~ Signed [facility] Work Phone: 1(803) 756-931908-30-2023 Progress note Author Aliya Jones [facility] March 30, 2023 11:18am Note Date/Time March 30, 2023 11 :18am [facility] [address] [place] [id number] Progress Note - Wound Care 03/30/23 1115 MR#: [id number] Acct: [id number] Name: JUAN DAVID HERNÁNDEZ Rep #:[id number] : 1940 82 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 Jose Enrique Finney MD Status:[facility] Location: History of Present Illness Date of Service: 03/30/23 Chief Complaint: Follow-up on his left ear laceration from a tree branch and right lateral foot open wound from a blister that was over 1 month old. 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 He has poor hygiene habits. Had developed a blister from his shoe on the right lateral foot that is quite long about 4 cm x 1 cm wide. States it bled like everything because he is on Eliquis. Seeing bleeds stop to get the bleeding under control. Now has developed some slough and fibrous material in the center with I think over a venous vein. Patient has numbing and has no feeling in his lower leg but he does say his feetthrob. He does have many comorbidities such as A-fib diabetes does have a defibrillatorhigh cholesterol BPH Progress of Wound: Left ear is healed. Lateral foot looks much better ,EpiFix we will apply #5 today. Measurements areslightly smaller. No sign of infection The maceration around the edge is better since we have him come in last Tuesday for dressing change. 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 We will continue with changing his socks twice a day and come in on Tuesday for dressing change. Subjective Subjective Patient is good with treatment so far Objective Data Objective Data Measurements are smaller no sign of infection looking better we will continue with EpiFix Vital Signs: Vital Signs Temp Pulse Resp BP O2 Del Method 96 F L 74 18 150/72 H Room Air 03/30/23 10:48 03/30/23 10:48 03/30/23 10:48 03/30/23 10:48 03/23/23 10:45 Oxygen Delivery Method Room Air Physical Exam Const oriented x3 General Appearance: cooperative Exam Limitations: no limitations HEENT normocephalic Head and Scalp: normal to inspection Face and Sinus: normal facial exam Nose: external nose normal General Ear: hearing grossly impaired External Ear: external ears normal Mouth: oral and palatal mucosa normal Eyes PERRL General Eye: normal appearance of both eyes Neck full ROM General: normal visual inspection Resp normal respiratory effort Effort and Inspection: able to speak in complete sentences Auscultation: clear to auscultation bilaterally Cardio regular rate and regular rhythm Palpation: normal PMI Rate: regular rate Rhythm: regular rhythm GI Auscultation: normoactive bowel sounds Palpation: soft and no hepatosplenomegaly external exam normal Back/Spine Cervical Spine: cervical ROM normal Thoracic Spine / Upper Back: normal to inspection Lumbar Spine / Lower Back: normal to inspection Extremity normal to inspection General Extremity: normal exam except as noted Skin Wounds: wounds noted Wound Narrative: Right lateral foot open wound from blister Left Pe?a superficial laceration in ear from trees branches Neuro oriented x3 Psych Appearance: grossly normal Speech: normal speech Thought Content: normal thought content Judgement: judgement good Debridement Note Debridement Note Wound debrided: Right lateral foot decubitus ulcer Laterality: Right Wound Grade/Stage: Stage II Type of Debridement: Excisional debridement Anesthesia Used: 5% Lidocaine Gel Depth: in the subcutaneous layer Percentage of wound debrided: 100 Instrument Used: 5mm curette Tissue Removed: Fibrin Severity: Limited To Skin Breakdown Amount of bleeding with debridement: Mild Bleeding Controlled with: Compression and gauze Patient tolerated procedure: Patient tolerated procedure well Post-Debridement Measurements and Additional Note: Post-Debridement Measurements/Treatment - Nurse 1 - General Ulcer Assessment Start: 03/02/23 11:05 Freq: Status: Active Protocol: ALEJANDRO Activity Type Activity Date Activity User E-sign Co-sign Detail Recorded Client Recorded Date Recorded By Document 03/02/23 11:10 RB [id number] 03/02/23 11:13 RB Document 03/09/23 11:02 DL [id number] 03/09/23 11:08 DL Document 03/16/23 11:46 RB [id number] 03/16/23 11:49 RB Document 03/23/23 10:45 BM Desktop 03/23/23 10:55 BM Document 03/25/23 12:36 RB [id number] 03/25/23 12:37 RB Document 03/30/23 10:48 RB [id number] 03/30/23 10:49 RB 03/02/23 03/09/23 03/16/23 11:10 11:02 11:46 - Today's Visit Information Type of service Follow-up Visit Follow-up Visit Follow-up Visit (Physician/CIVIL ENGINEERING DESIGNER (Physician/CIVIL ENGINEERING DESIGNER (Physician/CIVIL ENGINEERING DESIGNER ) ) ) Arrival Mode Ambulatory Ambulatory Ambulatory Transfer Assistance None None None Patient Identification Verified (Name & Yes Yes Yes ) Patient Requires Transmission-Based No No No Precautions Finger Stick Blood Sugar(mg/dl) (if not checked indicated): Blood Sugar Stated by Patient Vital Signs Temperature (97.8 F-99.1 F) 97 F L 96.9 F L 97 F L Temperature Source Temporal Temporal Temporal Pulse Rate (60-100) 97 82 81 Pulse Location Monitor Monitor Monitor Respiratory Rate (12-18) 18 20 H 18 Respiratory rate source Observation Observation Observation Oxygen Delivery Method Blood Pressure (90/60-120/80) 119/69 106/61 146/88 H Blood Pressure Mean (mm Hg) 85 76 107 Source Monitor Monitor Monitor Position Semi-Fowlers Semi-Fowlers Blood Pressure Location Left Arm Left Arm History Since Last Visit- (Skip if this is Patient's initial visit) Have you changed medications since your No No No last visit? Any new allergies or adverse reactions No No No Had a fall/change in ADL's that may No No No increase risk of falls Signs or symptoms of abuse and/or No No No neglect since last visit Have you been in the hospital since your No No No last visit? Has dressing in place as prescribed Yes Yes Yes Has compression in place as prescribed No N/A No Has offloadiing in place as prescribed No N/A No Experienced any changes in pain level or No No No management Left Footwear Right Footwear Pain Scale: 0-10 Numeric Is Patient Pain Free? Yes Yes Yes 03/23/23 03/25/23 03/30/23 10:45 12:36 10:48 WC - Today's Visit Information Type of service Follow-up Visit Nurse-only Follow-up Visit (Physician/CIVIL ENGINEERING DESIGNER Visit (Physician/CIVIL ENGINEERING DESIGNER ) ) Arrival Mode Ambulatory Ambulatory Ambulatory Transfer Assistance None None None Patient Identification Verified (Name & Yes Yes Yes ) Patient Requires Transmission-Based No No No Precautions Finger Stick Blood Sugar(mg/dl) (if indicated): Blood Sugar Vital Signs Temperature (97.8 F-99.1 F) 98.6 F 96 F L Temperature Source Temporal Temporal Pulse Rate (60-100) 64 83 74 Pulse Location Monitor Monitor Monitor Respiratory Rate (12-18) 16 18 18 Respiratory rate source Observation Observation Observation Oxygen Delivery Method Room Air Blood Pressure (90/60-120/80) 117/64 129/80 H 150/72 H Blood Pressure Mean (mm Hg) 81 96 98 Source Monitor Monitor Monitor Position Sitting Semi-Fowlers Semi-Fowlers Blood Pressure Location Left Arm Left Arm Left Arm History Since Last Visit- (Skip if this is Patient's initial visit) Have you changed medications since your No No last visit? Any new allergies or adverse reactions No No Had a fall/change in ADL's that may No No increase risk of falls Signs or symptoms of abuse and/or No No neglect since last visit Have you been in the hospital since your No No last visit? Has dressing in place as prescribed Yes Yes Has compression in place as prescribed N/A No Has offloadiing in place as prescribed N/A No Experienced any changes in pain level or No No management Left Footwear Regular Shoe Right Footwear Regular Shoe Pain Scale: 0-10 Numeric Is Patient Pain Free? Yes Yes Yes WC - Nurse 1 - General Ulcer Measurement Start: 03/02/23 11:05 Freq: Status: Active Protocol: Activity Type Activity Date Activity User E-sign Co-sign Detail Recorded Client Recorded Date Recorded By Document 03/02/23 11:10 RB [id number] 03/02/23 11:13 RB Document 03/09/23 11:02 DL [id number] 03/09/23 11:08 DL Document 03/16/23 11:46 RB [id number] 03/16/23 11:49 RB Document 03/23/23 10:45 BMF Desktop 03/23/23 10:55 BMF Document 03/25/23 12:36 RB [id number] 03/25/23 12:37 RB Document 03/30/23 10:48 RB [id number] 03/30/23 10:49 RB 03/02/23 03/09/23 03/16/23 11:10 11:02 11:46 Wound Center Nurse 1 #2- L EAR -Combined with other wound No No -Current Size (cm) - Length 0.1 0.6 0.1 -Current Size (cm) - Width 0.1 0.3 0.1 -Current Size (cm) - Depth 0.1 0.2 0.1 -Total Square Cm 0.01 0.18 0.01 -Tunneling No No -Undermining/Tunneling No No -Circular Undermining No No -Exudate Amt Small None Present -Exudate Type Serosanguineous -Wound Margin Distinct, Distinct, Outline Outline Attached Attached -Granulation Amt Medium (34-66%) Small (1-33%) Medium (34-66%) -Granulation Quality Oxly Oxly,Red Oxly -Slough/Fibrin Yes Yes -Necrosis Amt Medium (34-66%) Small (1-33%) Small (1-33%) -Necrotic Tissue Type Adherent Slough Adherent Slough Adherent Slough -Structure Exposed N/A N/A -Texture (Laya-wound Skin Appearance) Assessed Scarring Assessed -Moisture (Laya-wound Skin Appearance) Assessed No Abnormality Assessed -Color (Laya-wound Skin Appearance) Assessed No Abnormality Assessed -Temperature (Laya-wound Skin No Abnormality No Abnormality No Abnormality Appearance) (Pt Warm) (Pt Warm) (Pt Warm) -Tenderness on Palpation (Laya-wound No No No Skin Appearance) -Ulcer Cleansing Wound Cleanser Rinsed/ Wound Cleanser Irrigated with Saline -Foul Odor after Cleansing No No No -Anesthetic Used 5% Lidocaine 5% Lidocaine Gel Gel #1- R LAT FOOT -Combined with other wound No No -Current Size (cm) - Length 3 4 4 -Current Size (cm) - Width 1.4 1.2 1 -Current Size (cm) - Depth 0.2 0.2 0.1 -Total Square Cm 4.2 4.8 4 -Date of Last Picture (Recall this field) -Photo Taken -Epithelialization -Tunneling No No -Undermining/Tunneling No No -Circular Undermining No No -Exudate Amt Medium Medium Medium -Exudate Type Serosanguineous Serosanguineous Serosanguineous -Wound Margin Distinct, Distinct, Distinct, Outline Outline Outline Attached Attached Attached -Granulation Amt Medium (34-66%) Medium (34-66%) Medium (34-66%) -Granulation Quality Oxly Oxly Oxly -Slough/Fibrin Yes Yes -Necrosis Amt Medium (34-66%) Medium (34-66%) Medium (34-66%) -Necrotic Tissue Type Adherent Slough Adherent Slough Adherent Slough -Structure Exposed N/A N/A N/A -Texture (Laya-wound Skin Appearance) Assessed Scarring Assessed -Moisture (Laya-wound Skin Appearance) Assessed Maceration Assessed, Maceration -Color (Laya-wound Skin Appearance) Assessed No Abnormality Assessed -Temperature (Laya-wound Skin No Abnormality No Abnormality No Abnormality Appearance) (Pt Warm) (Pt Warm) (Pt Warm) -Tenderness on Palpation (Laya-wound No No No Skin Appearance) -Ulcer Cleansing Wound Cleanser Soap and Water Wound Cleanser -Foul Odor after Cleansing No Yes, Due to No Product Use -Anesthetic Used 5% Lidocaine 5% Lidocaine 5% Lidocaine Gel Gel Gel -Wound Comment(s) Lower Limb Edema Present Yes Right Calf (cm) 36 Right Ankle (cm) 03/23/23 03/25/23 03/30/23 10:45 12:36 10:48 Wound Center Nurse 1 #2- L EAR -Combined with other wound -Current Size (cm) - Length -Current Size (cm) - Width -Current Size (cm) - Depth -Total Square Cm -Tunneling -Undermining/Tunneling -Circular Undermining -Exudate Amt -Exudate Type -Wound Margin -Granulation Amt -Granulation Quality -Slough/Fibrin -Necrosis Amt -Necrotic Tissue Type -Structure Exposed -Texture (Laya-wound Skin Appearance) -Moisture (Laya-wound Skin Appearance) -Color (Laya-wound Skin Appearance) -Temperature (Laya-wound Skin Appearance) -Tenderness on Palpation (Laya-wound Skin Appearance) -Ulcer Cleansing -Foul Odor after Cleansing -Anesthetic Used #1- R LAT FOOT -Combined with other wound No No -Current Size (cm) - Length 4.3 4 -Current Size (cm) - Width 1 1.2 -Current Size (cm) - Depth 0.1 0.1 -Total Square Cm 4.3 4.8 -Date of Last Picture (Recall this 03/23/23 field) -Photo Taken Yes -Epithelialization Small 1-33% -Tunneling No No -Undermining/Tunneling No No -Circular Undermining No No -Exudate Amt Large Medium -Exudate Type Serosanguineous Serosanguineous -Wound Margin Distinct, Distinct, Outline Outline Attached Attached -Granulation Amt Medium (34-66%) Medium (34-66%) -Granulation Quality Red Oxly -Slough/Fibrin Yes Yes -Necrosis Amt Medium (34-66%) Medium (34-66%) -Necrotic Tissue Type Adherent Slough Adherent Slough -Structure Exposed N/A -Texture (Laya-wound Skin Appearance) Assessed, Assessed Scarring -Moisture (Laya-wound Skin Appearance) Assessed Maceration -Color (Laya-wound Skin Appearance) Assessed, Assessed Erythema -Temperature (Laya-wound Skin No Abnormality No Abnormality Appearance) (Pt Warm) (Pt Warm) -Tenderness on Palpation (Laya-wound No No Skin Appearance) -Ulcer Cleansing Soap and Water Wound Cleanser -Foul Odor after Cleansing No No -Anesthetic Used 5% Lidocaine 5% Lidocaine Gel Gel -Wound Comment(s) epifix and steri strips intact Lower Limb Edema Present Right Calf (cm) Right Ankle (cm) WC - Nurse 2 - General Ulcer CM Notes Start: 03/02/23 11:05 Freq: Status: Active Protocol: Activity Type Activity Date Activity User E-sign Co-sign Detail Recorded Client Recorded Date Recorded By Document 03/02/23 11:24 MW [id number] 03/02/23 11:36 MW Edit Result 03/02/23 11:24 MW (1) [id number] 03/02/23 11:39 MW Document 03/09/23 11:24 MW [id number] 03/09/23 11:33 MW Document 03/16/23 11:49 MW [id number] 03/16/23 11:56 MW Document 03/23/23 11:08 MW [id number] 03/23/23 11:14 MW (1) #2- L EAR - Procedure Performed No => Yes - Type of Procedure => Debridement - Clinical Debridement => Subcutaneous - Tissue Removed => Subcutaneous - Tunneling => No - Undermining/Tunneling => No - Circular Undermining => No - Wound/Ulcer Outcome => Not Healed - Ulcer Cleansing => Rinsed/Irrigated => with Saline - Foul Odor after Cleansing => No - Bioengineered Tissue => No - Bleeding Controlled with => Pressure - Treatment Response => Procedure => Tolerated Well - Offloading => No - Debridement - Subq, 1st 20sq cm => Yes 03/02/23 03/09/23 03/16/23 11:24 11:24 11:49 Wound Center Nurse 2 #2- L EAR -Time 11:25 11:31 11:52 -Correct Patient Yes Yes Yes -Correct Side, Site, Position Yes Yes Yes -Correct Procedure Yes Yes Yes -Procedure Performed Yes Yes No -Type of Procedure Debridement Debridement -Clinical Debridement Subcutaneous Subcutaneous -Tissue Removed Subcutaneous Subcutaneous -Post Debridement (cm) - Length 0.4 0 -Post Debridement (cm) - Width 0.3 0 -Post Debridement (cm) - Depth 0.1 0 -Total Square (Post) (cm) 0.12 0 -Area of Debridement (cm) - Length 0.4 -Area of Debridement (cm) - Width 0.3 -Total Square (Area) (cm) 0.12 -Tunneling No No -Undermining/Tunneling No No -Circular Undermining No No -Wound/Ulcer Outcome Not Healed Not Healed Healed- Epithelialized -Ulcer Cleansing Rinsed/ Rinsed/ Irrigated with Irrigated with Saline Saline -Foul Odor after Cleansing No No -Bioengineered Tissue No No -Bleeding Controlled with Pressure Pressure -Treatment Response Procedure Procedure Tolerated Well Tolerated Well -Offloading No No -Debridement - Subq, 1st 20sq cm Yes Yes #1- R LAT FOOT -Time 11:25 11:29 11:53 -Correct Patient Yes Yes Yes -Correct Side, Site, Position Yes Yes Yes -Correct Procedure Yes Yes Yes -Procedure Performed Yes Yes Yes -Type of Procedure Debridement Debridement Debridement -Clinical Debridement Subcutaneous Subcutaneous Subcutaneous -Tissue Removed Subcutaneous Subcutaneous Subcutaneous -Post Debridement (cm) - Length 4.3 4.2 4.1 -Post Debridement (cm) - Width 1.4 1.3 1.2 -Post Debridement (cm) - Depth 0.2 0.2 0.2 -Total Square (Post) (cm) 6.02 5.46 4.92 -Area of Debridement (cm) - Length 4.3 4.2 4.1 -Area of Debridement (cm) - Width 1.4 1.3 1.2 -Total Square (Area) (cm) 6.02 5.46 4.92 -Tunneling No No No -Undermining/Tunneling No No No -Circular Undermining No No No -Wound/Ulcer Outcome Not Healed Not Healed Not Healed -Ulcer Cleansing Rinsed/ Rinsed/ Rinsed/ Irrigated with Irrigated with Irrigated with Saline Saline Saline -Foul Odor after Cleansing No No No -Bioengineered Tissue Yes Yes Yes -Type of Bioengineered Tissue Epifix Epifix Mesh Epifix -Expiration Date 10/31/27 11/30/27 10/31/27 -Product Lot Number [id number] -Percent Used 100 100 100 -Lot number of Saline Used [id number] -Bleeding Controlled with Pressure Pressure Pressure -Treatment Response Procedure Procedure Procedure Tolerated Well Tolerated Well Tolerated Well -Offloading No No No -Debridement - Subq, 1st 20sq cm No No No -Apply Skin Sub - 1st 25 sq cm - Legs 1 -Apply Skin Sub - 1st 25 sq cm - Feet 1 -Apply Skin Sub - each addt'l 25 sq cm 1 - Feet -Epifix (per sq cm) 11 4 -Epifix Mesh (per sq cm) 11 Pain Scale: 0-10 Numeric Is Patient Pain Free? Yes Yes Yes 03/23/23 11:08 Wound Center Nurse 2 #2- L EAR -Time -Correct Patient -Correct Side, Site, Position -Correct Procedure -Procedure Performed -Type of Procedure -Clinical Debridement -Tissue Removed -Post Debridement (cm) - Length -Post Debridement (cm) - Width -Post Debridement (cm) - Depth -Total Square (Post) (cm) -Area of Debridement (cm) - Length -Area of Debridement (cm) - Width -Total Square (Area) (cm) -Tunneling -Undermining/Tunneling -Circular Undermining -Wound/Ulcer Outcome -Ulcer Cleansing -Foul Odor after Cleansing -Bioengineered Tissue -Bleeding Controlled with -Treatment Response -Offloading -Debridement - Subq, 1st 20sq cm #1- R LAT FOOT -Time 11:09 -Correct Patient Yes -Correct Side, Site, Position Yes -Correct Procedure Yes -Procedure Performed Yes -Type of Procedure Debridement -Clinical Debridement Subcutaneous -Tissue Removed Subcutaneous -Post Debridement (cm) - Length 4.0 -Post Debridement (cm) - Width 1.1 -Post Debridement (cm) - Depth 0.2 -Total Square (Post) (cm) 4.40 -Area of Debridement (cm) - Length 4.0 -Area of Debridement (cm) - Width 1.1 -Total Square (Area) (cm) 4.40 -Tunneling No -Undermining/Tunneling No -Circular Undermining No -Wound/Ulcer Outcome Not Healed -Ulcer Cleansing Rinsed/ Irrigated with Saline -Foul Odor after Cleansing No -Bioengineered Tissue Yes -Type of Bioengineered Tissue Epifix -Expiration Date 10/31/27 -Product Lot Number [id number] -Percent Used 100 -Lot number of Saline Used [id number] -Bleeding Controlled with Pressure -Treatment Response Procedure Tolerated Well -Offloading No -Debridement - Subq, 1st 20sq cm No -Apply Skin Sub - 1st 25 sq cm - Legs -Apply Skin Sub - 1st 25 sq cm - Feet 1 -Apply Skin Sub - each addt'l 25 sq cm - Feet -Epifix (per sq cm) 4 -Epifix Mesh (per sq cm) Pain Scale: 0-10 Numeric Is Patient Pain Free? Yes WC - Nurse 3 - General Ulcer D/C NN Start: 03/02/23 11:05 Freq: Status: Active Protocol: Activity Type Activity Date Activity User E-sign Co-sign Detail Recorded Client Recorded Date Recorded By Document 03/02/23 11:43 RB [id number] 03/02/23 11:45 RB Document 03/09/23 11:44 DL [id number] 03/09/23 11:46 DL Document 03/16/23 12:06 BMF [id number] 03/16/23 12:07 BMF Document 03/23/23 11:15 MW [id number] 03/23/23 11:16 MW Edit Result 03/23/23 11:15 MW (1) [id number] 03/23/23 11:21 MW Document 03/25/23 12:36 RB [id number] 03/25/23 12:37 RB (1) #1- R LAT FOOT - Primary Dressing Applied Aquacel Extra, => Aquacel Extra Mepilex Border => - Mepilex Border 1 => 03/02/23 03/09/23 03/16/23 11:43 11:44 12:06 Wound Care Center Nurse 3 #2- L EAR -Ulcer Cleansing Rinsed/ Rinsed/ Irrigated with Irrigated with Saline Saline -Foul Odor after Cleansing No -Primary Dressing Applied NonAdherent Contact Layer -Other Dressing xeroform to L bactroban/ ear gauze xerofrom -Primary Dressing Covered/Secured with Dry Gauze, Dry Gauze, Secured with Secured with Tape Tape #1- R LAT FOOT -Ulcer Cleansing Rinsed/ Irrigated with Saline -Foul Odor after Cleansing No -Negative Pressure Wound Therapy -Primary Dressing Applied Aquacel Extra, Aquacel Extra, Aquacel Extra, Mepilex Border Mepilex Border Mepilex Border -Other Dressing EpiFix EPIFIX; DRSG PER RB RN -Primary Dressing Covered/Secured with Dry Gauze Dry Gauze & Dry Gauze & Roll Gauze, Roll Gauze, Secured with Secured with Tape Tape -Aquacel Extra 1 1 1 -Mepilex Border 1 1 1 Treatment Response Procedure Procedure Procedure Tolerated Well Tolerated Well Tolerated Well Vital Signs Temperature (97.8 F-99.1 F) Temperature Source Pulse Rate (60-100) Pulse Location Respiratory Rate (12-18) Respiratory rate source Blood Pressure (90/60-120/80) Blood Pressure Mean (mm Hg) Source Position Blood Pressure Location Pain Scale: 0-10 Numeric Is Patient Pain Free? Yes Yes Yes Teaching: Wound Center Dressing Your Wound -Person Taught -Teaching Method -Response to teaching WC - Visit Discharge Discharge Condition Stable Stable Stable Ambulatory Status Ambulatory Ambulatory Ambulatory Transportation Private Auto Private Auto Private Auto Accompanied by Medication Reconcilliation completed & No provided to patient/care provider Clinical Summary of Care Provided Yes 03/23/23 03/25/23 11:15 12:36 Wound Care Center Nurse 3 #2- L EAR -Ulcer Cleansing -Foul Odor after Cleansing -Primary Dressing Applied -Other Dressing -Primary Dressing Covered/Secured with #1- R LAT FOOT -Ulcer Cleansing Not Cleansed -Foul Odor after Cleansing No -Negative Pressure Wound Therapy N/A -Primary Dressing Applied Aquacel Extra Aquacel Extra -Other Dressing -Primary Dressing Covered/Secured with Dry Gauze & Roll Gauze, Secured with Tape -Aquacel Extra 1 1 -Mepilex Border Treatment Response Procedure Procedure Tolerated Well Tolerated Well Vital Signs Temperature (97.8 F-99.1 F) 98.6 F Temperature Source Temporal Pulse Rate (60-100) 83 Pulse Location Monitor Respiratory Rate (12-18) 18 Respiratory rate source Observation Blood Pressure (90/60-120/80) 129/80 H Blood Pressure Mean (mm Hg) 96 Source Monitor Position Semi-Fowlers Blood Pressure Location Left Arm Pain Scale: 0-10 Numeric Is Patient Pain Free? Yes Yes Teaching: Wound Center Dressing Your Wound -Person Taught Patient -Teaching Method Discussion, Demonstration -Response to teaching Verbalize understanding WC - Visit Discharge Discharge Condition Stable Stable Ambulatory Status Ambulatory Ambulatory Transportation Private Auto Private Auto Accompanied by self Medication Reconcilliation completed & No No provided to patient/care provider Clinical Summary of Care Provided Yes Yes Assessment/Plan Assessment/Plan (1) Diabetic foot ulcer associated with type 2 diabetes mellitus: CODE(S): E11.621 - Type 2 diabetes mellitus with foot ulcer; L97.509 - Non- pressure chronic ulcer of other part of unspecified foot with unspecified severity QUALIFIERS: Diabetic foot ulcer location: midfoot Laterality: right Non-pressure ulcer stage: with fat layer exposed Qualified Code(s): E11.621 - Type 2 diabetes mellitus with foot ulcer; L97.412 - Non-pressure chronic ulcer of right heel and midfoot with fat layer exposed PLAN: Applied EpiFix #5 to right lateral foot veil was covered and Aquacel extrawas placed on top for extra red of protection against infection. Patient is told he cannot get wet.\ Finish antibiotic therapy linezolid 600 twice daily Follow-up in 1 week (2) Decubitus ulcer of right foot, stage 2: CODE(S): L89.892 - Pressure ulcer of other site, stage 2 (3) Unspecified open wound of other part of head, initial encounter: CODE(S): S01.80XA - Unspecified open wound of other part of head, initial encounter PLAN: Left ear healed discontinue treatments 03/30/23 1118 <Electronically signed by Aliya Jones NP [employer]ERCIAL LOAN [employer]ESSOR[employer]> Cosigner Signature (if applicable): CC: ~ Signed [facility] Work Phone: 1(842) 148-770808-23-2023 Progress note Author Aliya Jones [facility] March 23, 2023 12:53pm Note Date/Time March 23, 2023 12 :53pm [facility] [address] [place] [id number] Progress Note - Wound Care 03/23/23 1249 MR#: [id number] Acct: [id number] Name: JUAN DAVID HERNÁNDEZ Rep #:[id number] 1 : 1940 82 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 Jose Enrique Finney MD Status:RE G RCR Location: History of Present Illness Date of Service: 03/23/23 Chief Complaint: Follow-up on his left ear laceration from a tree branch and right lateral foot open wound from a blister that was over 1 month old. 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 He has poor hygiene habits. Had developed a blister from his shoe on the right lateral foot that is quite long about 4 cm x 1 cm wide. States it bled like everything because he is on Eliquis. Seeing bleeds stop to get the bleeding under control. Now has developed some slough and fibrous material in the center with I think over a venous vein. Patient has numbing and has no feeling in his lower leg but he does say his feetthrob. He does have many comorbidities such as A-fib diabetes does have a defibrillatorhigh cholesterol BPH Progress of Wound: Left ear is healed. Lateral foot looks much better ,EpiFix we will apply #4 today. Measurements areslightly smaller. No sign of infection But still has a bunch of maceration around the edge debrided off again. 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 Suggested he change his socks twice aday and come in on Tuesday for dressing change. Subjective Subjective Patient is happy with outcomes Objective Data Objective Data Left ear still looks good scabbed Right lateral foot open starting to see skin buds in the base filling in measures smaller still has some maceration around the edge we will continue to pad better we will continue using epi fix Vital Signs: Vital Signs Temp Pulse Resp BP O2 Del Method 97 F L 64 16 117/64 Room Air 03/16/23 11:46 03/23/23 10:45 03/23/23 10:45 03/23/23 10:45 03/23/23 10:45 Oxygen Delivery Method Room Air Physical Exam Const oriented x3 General Appearance: cooperative Exam Limitations: no limitations HEENT normocephalic Head and Scalp: normal to inspection Face and Sinus: normal facial exam Nose: external nose normal General Ear: hearing grossly impaired External Ear: external ears normal Mouth: oral and palatal mucosa normal Eyes PERRL General Eye: normal appearance of both eyes Neck full ROM General: normal visual inspection Resp normal respiratory effort Effort and Inspection: able to speak in complete sentences Auscultation: clear to auscultation bilaterally Cardio regular rate and regular rhythm Palpation: normal PMI Rate: regular rate Rhythm: regular rhythm GI Auscultation: normoactive bowel sounds Palpation: soft and no hepatosplenomegaly external exam normal Back/Spine Cervical Spine: cervical ROM normal Thoracic Spine / Upper Back: normal to inspection Lumbar Spine / Lower Back: normal to inspection Extremity normal to inspection General Extremity: normal exam except as noted Skin Wounds: wounds noted Wound Narrative: Right lateral foot open wound from blister Left Pe?a superficial laceration in ear from trees branches Neuro oriented x3 Psych Appearance: grossly normal Speech: normal speech Thought Content: normal thought content Judgement: judgement good Debridement Note Debridement Note Wound debrided: Right lateral foot Laterality: Right Type of Debridement: Excisional debridement Anesthesia Used: 5% Lidocaine Gel Depth: in the subcutaneous layer Percentage of wound debrided: 100 Instrument Used: 5mm curette Tissue Removed: Fibrin And Some maceration Severity: Fat Layer Exposed Amount of bleeding with debridement: Mild Bleeding Controlled with: Compression and gauze Patient tolerated procedure: Patient tolerated procedure well Post-Debridement Measurements and Additional Note: Post-Debridement Measurements/Treatment - Nurse 1 - General Ulcer Assessment Start: 03/02/23 11:05 Freq: Status: Active Protocol: ALEJANDRO Activity Type Activity Date Activity User E-sign Co-sign Detail Recorded Client Recorded Date Recorded By Document 03/02/23 11:10 RB [id number] 03/02/23 11:13 RB Document 03/09/23 11:02 DL [id number] 03/09/23 11:08 DL Document 03/16/23 11:46 RB [id number] 03/16/23 11:49 RB Document 03/23/23 10:45 BM Desktop 03/23/23 10:55 BMF 03/02/23 03/09/23 03/16/23 11:10 11:02 11:46 - Today's Visit Information Type of service Follow-up Visit Follow-up Visit Follow-up Visit (Physician/CIVIL ENGINEERING DESIGNER (Physician/CIVIL ENGINEERING DESIGNER (Physician/CIVIL ENGINEERING DESIGNER ) ) ) Arrival Mode Ambulatory Ambulatory Ambulatory Transfer Assistance None None None Patient Identification Verified (Name & Yes Yes Yes ) Patient Requires Transmission-Based No No No Precautions Finger Stick Blood Sugar(mg/dl) (if not checked indicated): Blood Sugar Stated by Patient Vital Signs Temperature (97.8 F-99.1 F) 97 F L 96.9 F L 97 F L Temperature Source Temporal Temporal Temporal Pulse Rate (60-100) 97 82 81 Pulse Location Monitor Monitor Monitor Respiratory Rate (12-18) 18 20 H 18 Respiratory rate source Observation Observation Observation Oxygen Delivery Method Blood Pressure (90/60-120/80) 119/69 106/61 146/88 H Blood Pressure Mean (mm Hg) 85 76 107 Source Monitor Monitor Monitor Position Semi-Fowlers Semi-Fowlers Blood Pressure Location Left Arm Left Arm History Since Last Visit- (Skip if this is Patient's initial visit) Have you changed medications since your No No No last visit? Any new allergies or adverse reactions No No No Had a fall/change in ADL's that may No No No increase risk of falls Signs or symptoms of abuse and/or No No No neglect since last visit Have you been in the hospital since your No No No last visit? Has dressing in place as prescribed Yes Yes Yes Has compression in place as prescribed No N/A No Has offloadiing in place as prescribed No N/A No Experienced any changes in pain level or No No No management Left Footwear Right Footwear Pain Scale: 0-10 Numeric Is Patient Pain Free? Yes Yes Yes 03/23/23 10:45 WC - Today's Visit Information Type of service Follow-up Visit (Physician/CIVIL ENGINEERING DESIGNER ) Arrival Mode Ambulatory Transfer Assistance None Patient Identification Verified (Name & Yes ) Patient Requires Transmission-Based No Precautions Finger Stick Blood Sugar(mg/dl) (if indicated): Blood Sugar Vital Signs Temperature (97.8 F-99.1 F) Temperature Source Pulse Rate (60-100) 64 Pulse Location Monitor Respiratory Rate (12-18) 16 Respiratory rate source Observation Oxygen Delivery Method Room Air Blood Pressure (90/60-120/80) 117/64 Blood Pressure Mean (mm Hg) 81 Source Monitor Position Sitting Blood Pressure Location Left Arm History Since Last Visit- (Skip if this is Patient's initial visit) Have you changed medications since your No last visit? Any new allergies or adverse reactions No Had a fall/change in ADL's that may No increase risk of falls Signs or symptoms of abuse and/or No neglect since last visit Have you been in the hospital since your No last visit? Has dressing in place as prescribed Yes Has compression in place as prescribed N/A Has offloadiing in place as prescribed N/A Experienced any changes in pain level or No management Left Footwear Regular Shoe Right Footwear Regular Shoe Pain Scale: 0-10 Numeric Is Patient Pain Free? Yes - Nurse 1 - General Ulcer Measurement Start: 03/02/23 11:05 Freq: Status: Active Protocol: Activity Type Activity Date Activity User E-sign Co-sign Detail Recorded Client Recorded Date Recorded By Document 03/02/23 11:10 RB [id number] 03/02/23 11:13 RB Document 03/09/23 11:02 DL [id number] 03/09/23 11:08 DL Document 03/16/23 11:46 RB [id number] 03/16/23 11:49 RB Document 03/23/23 10:45 BMF Desktop 03/23/23 10:55 BMF 03/02/23 03/09/23 03/16/23 11:10 11:02 11:46 Wound Center Nurse 1 #2- L EAR -Combined with other wound No No -Current Size (cm) - Length 0.1 0.6 0.1 -Current Size (cm) - Width 0.1 0.3 0.1 -Current Size (cm) - Depth 0.1 0.2 0.1 -Total Square Cm 0.01 0.18 0.01 -Tunneling No No -Undermining/Tunneling No No -Circular Undermining No No -Exudate Amt Small None Present -Exudate Type Serosanguineous -Wound Margin Distinct, Distinct, Outline Outline Attached Attached -Granulation Amt Medium (34-66%) Small (1-33%) Medium (34-66%) -Granulation Quality Oxly Oxly,Red Oxly -Slough/Fibrin Yes Yes -Necrosis Amt Medium (34-66%) Small (1-33%) Small (1-33%) -Necrotic Tissue Type Adherent Slough Adherent Slough Adherent Slough -Structure Exposed N/A N/A -Texture (Laya-wound Skin Appearance) Assessed Scarring Assessed -Moisture (Laya-wound Skin Appearance) Assessed No Abnormality Assessed -Color (Laya-wound Skin Appearance) Assessed No Abnormality Assessed -Temperature (Laya-wound Skin No Abnormality No Abnormality No Abnormality Appearance) (Pt Warm) (Pt Warm) (Pt Warm) -Tenderness on Palpation (Laya-wound No No No Skin Appearance) -Ulcer Cleansing Wound Cleanser Rinsed/ Wound Cleanser Irrigated with Saline -Foul Odor after Cleansing No No No -Anesthetic Used 5% Lidocaine 5% Lidocaine Gel Gel #1- R LAT FOOT -Combined with other wound No No -Current Size (cm) - Length 3 4 4 -Current Size (cm) - Width 1.4 1.2 1 -Current Size (cm) - Depth 0.2 0.2 0.1 -Total Square Cm 4.2 4.8 4 -Date of Last Picture (Recall this field) -Photo Taken -Epithelialization -Tunneling No No -Undermining/Tunneling No No -Circular Undermining No No -Exudate Amt Medium Medium Medium -Exudate Type Serosanguineous Serosanguineous Serosanguineous -Wound Margin Distinct, Distinct, Distinct, Outline Outline Outline Attached Attached Attached -Granulation Amt Medium (34-66%) Medium (34-66%) Medium (34-66%) -Granulation Quality Oxly Oxly Oxly -Slough/Fibrin Yes Yes -Necrosis Amt Medium (34-66%) Medium (34-66%) Medium (34-66%) -Necrotic Tissue Type Adherent Slough Adherent Slough Adherent Slough -Structure Exposed N/A N/A N/A -Texture (Laya-wound Skin Appearance) Assessed Scarring Assessed -Moisture (Laya-wound Skin Appearance) Assessed Maceration Assessed, Maceration -Color (Laya-wound Skin Appearance) Assessed No Abnormality Assessed -Temperature (Laya-wound Skin No Abnormality No Abnormality No Abnormality Appearance) (Pt Warm) (Pt Warm) (Pt Warm) -Tenderness on Palpation (Laya-wound No No No Skin Appearance) -Ulcer Cleansing Wound Cleanser Soap and Water Wound Cleanser -Foul Odor after Cleansing No Yes, Due to No Product Use -Anesthetic Used 5% Lidocaine 5% Lidocaine 5% Lidocaine Gel Gel Gel Lower Limb Edema Present Yes Right Calf (cm) 36 Right Ankle (cm) 03/23/23 10:45 Wound Center Nurse 1 #2- L EAR -Combined with other wound -Current Size (cm) - Length -Current Size (cm) - Width -Current Size (cm) - Depth -Total Square Cm -Tunneling -Undermining/Tunneling -Circular Undermining -Exudate Amt -Exudate Type -Wound Margin -Granulation Amt -Granulation Quality -Slough/Fibrin -Necrosis Amt -Necrotic Tissue Type -Structure Exposed -Texture (Laya-wound Skin Appearance) -Moisture (Laya-wound Skin Appearance) -Color (Laya-wound Skin Appearance) -Temperature (Laya-wound Skin Appearance) -Tenderness on Palpation (Laya-wound Skin Appearance) -Ulcer Cleansing -Foul Odor after Cleansing -Anesthetic Used #1- R LAT FOOT -Combined with other wound No -Current Size (cm) - Length 4.3 -Current Size (cm) - Width 1 -Current Size (cm) - Depth 0.1 -Total Square Cm 4.3 -Date of Last Picture (Recall this 03/23/23 field) -Photo Taken Yes -Epithelialization Small 1-33% -Tunneling No -Undermining/Tunneling No -Circular Undermining No -Exudate Amt Large -Exudate Type Serosanguineous -Wound Margin Distinct, Outline Attached -Granulation Amt Medium (34-66%) -Granulation Quality Red -Slough/Fibrin Yes -Necrosis Amt Medium (34-66%) -Necrotic Tissue Type Adherent Slough -Structure Exposed -Texture (Laya-wound Skin Appearance) Assessed, Scarring -Moisture (Laya-wound Skin Appearance) Assessed -Color (Laya-wound Skin Appearance) Assessed, Erythema -Temperature (Laya-wound Skin No Abnormality Appearance) (Pt Warm) -Tenderness on Palpation (Laya-wound No Skin Appearance) -Ulcer Cleansing Soap and Water -Foul Odor after Cleansing No -Anesthetic Used 5% Lidocaine Gel Lower Limb Edema Present Right Calf (cm) Right Ankle (cm) WC - Nurse 2 - General Ulcer CM Notes Start: 03/02/23 11:05 Freq: Status: Active Protocol: Activity Type Activity Date Activity User E-sign Co-sign Detail Recorded Client Recorded Date Recorded By Document 03/02/23 11:24 MW [id number] 03/02/23 11:36 MW Edit Result 03/02/23 11:24 MW (1) [id number] 03/02/23 11:39 MW Document 03/09/23 11:24 MW [id number] 03/09/23 11:33 MW Document 03/16/23 11:49 MW [id number] 03/16/23 11:56 MW Document 03/23/23 11:08 MW [id number] 03/23/23 11:14 MW (1) #2- L EAR - Procedure Performed No => Yes - Type of Procedure => Debridement - Clinical Debridement => Subcutaneous - Tissue Removed => Subcutaneous - Tunneling => No - Undermining/Tunneling => No - Circular Undermining => No - Wound/Ulcer Outcome => Not Healed - Ulcer Cleansing => Rinsed/Irrigated => with Saline - Foul Odor after Cleansing => No - Bioengineered Tissue => No - Bleeding Controlled with => Pressure - Treatment Response => Procedure => Tolerated Well - Offloading => No - Debridement - Subq, 20sq cm => Yes 03/02/23 03/09/23 03/16/23 11:24 11:24 11:49 Wound Center Nurse 2 #2- L EAR -Time 11: 11:31 11:52 -Correct Patient Yes Yes Yes -Correct Side, Site, Position Yes Yes Yes -Correct Procedure Yes Yes Yes -Procedure Performed Yes Yes No -Type of Procedure Debridement Debridement -Clinical Debridement Subcutaneous Subcutaneous -Tissue Removed Subcutaneous Subcutaneous -Post Debridement (cm) - Length 0.4 0 -Post Debridement (cm) - Width 0.3 0 -Post Debridement (cm) - Depth 0.1 0 -Total Square (Post) (cm) 0.12 0 -Area of Debridement (cm) - Length 0.4 -Area of Debridement (cm) - Width 0.3 -Total Square (Area) (cm) 0.12 -Tunneling No No -Undermining/Tunneling No No -Circular Undermining No No -Wound/Ulcer Outcome Not Healed Not Healed Healed- Epithelialized -Ulcer Cleansing Rinsed/ Rinsed/ Irrigated with Irrigated with Saline Saline -Foul Odor after Cleansing No No -Bioengineered Tissue No No -Bleeding Controlled with Pressure Pressure -Treatment Response Procedure Procedure Tolerated Well Tolerated Well -Offloading No No -Debridement - Subq, 1st 20sq cm Yes Yes #1- R LAT FOOT -Time 11: 11:29 11:53 -Correct Patient Yes Yes Yes -Correct Side, Site, Position Yes Yes Yes -Correct Procedure Yes Yes Yes -Procedure Performed Yes Yes Yes -Type of Procedure Debridement Debridement Debridement -Clinical Debridement Subcutaneous Subcutaneous Subcutaneous -Tissue Removed Subcutaneous Subcutaneous Subcutaneous -Post Debridement (cm) - Length 4.3 4.2 4.1 -Post Debridement (cm) - Width 1.4 1.3 1.2 -Post Debridement (cm) - Depth 0.2 0.2 0.2 -Total Square (Post) (cm) 6.02 5.46 4.92 -Area of Debridement (cm) - Length 4.3 4.2 4.1 -Area of Debridement (cm) - Width 1.4 1.3 1.2 -Total Square (Area) (cm) 6.02 5.46 4.92 -Tunneling No No No -Undermining/Tunneling No No No -Circular Undermining No No No -Wound/Ulcer Outcome Not Healed Not Healed Not Healed -Ulcer Cleansing Rinsed/ Rinsed/ Rinsed/ Irrigated with Irrigated with Irrigated with Saline Saline Saline -Foul Odor after Cleansing No No No -Bioengineered Tissue Yes Yes Yes -Type of Bioengineered Tissue Epifix Epifix Mesh Epifix -Expiration Date 10/31/27 11/30/27 10/31/27 -Product Lot Number [id number] -Percent Used 100 100 100 -Lot number of Saline Used [id number] -Bleeding Controlled with Pressure Pressure Pressure -Treatment Response Procedure Procedure Procedure Tolerated Well Tolerated Well Tolerated Well -Offloading No No No -Debridement - Subq, 1st 20sq cm No No No -Apply Skin Sub - 1st 25 sq cm - Legs 1 -Apply Skin Sub - 1st 25 sq cm - Feet 1 -Apply Skin Sub - each addt'l 25 sq cm 1 - Feet -Epifix (per sq cm) 11 4 -Epifix Mesh (per sq cm) 11 Pain Scale: 0-10 Numeric Is Patient Pain Free? Yes Yes Yes 03/23/23 11:08 Wound Center Nurse 2 #2- L EAR -Time -Correct Patient -Correct Side, Site, Position -Correct Procedure -Procedure Performed -Type of Procedure -Clinical Debridement -Tissue Removed -Post Debridement (cm) - Length -Post Debridement (cm) - Width -Post Debridement (cm) - Depth -Total Square (Post) (cm) -Area of Debridement (cm) - Length -Area of Debridement (cm) - Width -Total Square (Area) (cm) -Tunneling -Undermining/Tunneling -Circular Undermining -Wound/Ulcer Outcome -Ulcer Cleansing -Foul Odor after Cleansing -Bioengineered Tissue -Bleeding Controlled with -Treatment Response -Offloading -Debridement - Subq, 1st 20sq cm #1- R LAT FOOT -Time 11:09 -Correct Patient Yes -Correct Side, Site, Position Yes -Correct Procedure Yes -Procedure Performed Yes -Type of Procedure Debridement -Clinical Debridement Subcutaneous -Tissue Removed Subcutaneous -Post Debridement (cm) - Length 4.0 -Post Debridement (cm) - Width 1.1 -Post Debridement (cm) - Depth 0.2 -Total Square (Post) (cm) 4.40 -Area of Debridement (cm) - Length 4.0 -Area of Debridement (cm) - Width 1.1 -Total Square (Area) (cm) 4.40 -Tunneling No -Undermining/Tunneling No -Circular Undermining No -Wound/Ulcer Outcome Not Healed -Ulcer Cleansing Rinsed/ Irrigated with Saline -Foul Odor after Cleansing No -Bioengineered Tissue Yes -Type of Bioengineered Tissue Epifix -Expiration Date 10/31/27 -Product Lot Number [id number] -Percent Used 100 -Lot number of Saline Used [id number] -Bleeding Controlled with Pressure -Treatment Response Procedure Tolerated Well -Offloading No -Debridement - Subq, 1st 20sq cm No -Apply Skin Sub - 1st 25 sq cm - Legs -Apply Skin Sub - 1st 25 sq cm - Feet 1 -Apply Skin Sub - each addt'l 25 sq cm - Feet -Epifix (per sq cm) 4 -Epifix Mesh (per sq cm) Pain Scale: 0-10 Numeric Is Patient Pain Free? Yes WC - Nurse 3 - General Ulcer D/C NN Start: 03/02/23 11:05 Freq: Status: Active Protocol: Activity Type Activity Date Activity User E-sign Co-sign Detail Recorded Client Recorded Date Recorded By Document 03/02/23 11:43 RB [id number] 03/02/23 11:45 RB Document 03/09/23 11:44 DL [id number] 03/09/23 11:46 DL Document 03/16/23 12:06 BMF [id number] 03/16/23 12:07 BMF Document 03/23/23 11:15 MW [id number] 03/23/23 11:16 MW Edit Result 03/23/23 11:15 MW (1) [id number] 03/23/23 11:21 MW (1) #1- R LAT FOOT - Primary Dressing Applied Aquacel Extra, => Aquacel Extra Mepilex Border => - Mepilex Border 1 => 03/02/23 03/09/23 03/16/23 11:43 11:44 12:06 Wound Care Center Nurse 3 #2- L EAR -Ulcer Cleansing Rinsed/ Rinsed/ Irrigated with Irrigated with Saline Saline -Foul Odor after Cleansing No -Primary Dressing Applied NonAdherent Contact Layer -Other Dressing xeroform to L bactroban/ ear gauze xerofrom -Primary Dressing Covered/Secured with Dry Gauze, Dry Gauze, Secured with Secured with Tape Tape #1- R LAT FOOT -Ulcer Cleansing Rinsed/ Irrigated with Saline -Foul Odor after Cleansing No -Negative Pressure Wound Therapy -Primary Dressing Applied Aquacel Extra, Aquacel Extra, Aquacel Extra, Mepilex Border Mepilex Border Mepilex Border -Other Dressing EpiFix EPIFIX; DRSG PER RB RN -Primary Dressing Covered/Secured with Dry Gauze Dry Gauze & Dry Gauze & Roll Gauze, Roll Gauze, Secured with Secured with Tape Tape -Aquacel Extra 1 1 1 -Mepilex Border 1 1 1 Treatment Response Procedure Procedure Procedure Tolerated Well Tolerated Well Tolerated Well Pain Scale: 0-10 Numeric Is Patient Pain Free? Yes Yes Yes Teaching: Wound Center Dressing Your Wound -Person Taught -Teaching Method -Response to teaching WC - Visit Discharge Discharge Condition Stable Stable Stable Ambulatory Status Ambulatory Ambulatory Ambulatory Transportation Private Auto Private Auto Private Auto Accompanied by Medication Reconcilliation completed & No provided to patient/care provider Clinical Summary of Care Provided Yes 03/23/23 11:15 Wound Care Center Nurse 3 #2- L EAR -Ulcer Cleansing -Foul Odor after Cleansing -Primary Dressing Applied -Other Dressing -Primary Dressing Covered/Secured with #1- R LAT FOOT -Ulcer Cleansing Not Cleansed -Foul Odor after Cleansing No -Negative Pressure Wound Therapy N/A -Primary Dressing Applied Aquacel Extra -Other Dressing -Primary Dressing Covered/Secured with -Aquacel Extra 1 -Mepilex Border Treatment Response Procedure Tolerated Well Pain Scale: 0-10 Numeric Is Patient Pain Free? Yes Teaching: Wound Center Dressing Your Wound -Person Taught Patient -Teaching Method Discussion, Demonstration -Response to teaching Verbalize understanding WC - Visit Discharge Discharge Condition Stable Ambulatory Status Ambulatory Transportation Private Auto Accompanied by self Medication Reconcilliation completed & No provided to patient/care provider Clinical Summary of Care Provided Yes Assessment/Plan Assessment/Plan (1) Diabetic foot ulcer associated with type 2 diabetes mellitus: CODE(S): E11.621 - Type 2 diabetes mellitus with foot ulcer; L97.509 - Non- pressure chronic ulcer of other part of unspecified foot with unspecified severity QUALIFIERS: Diabetic foot ulcer location: midfoot Laterality: right Non-pressure ulcer stage: with fat layer exposed Qualified Code(s): E11.621 - Type 2 diabetes mellitus with foot ulcer; L97.412 - Non-pressure chronic ulcer of right heel and midfoot with fat layer exposed PLAN: Applied EpiFix #4 to right lateral foot veil was covered and Aquacel extrawas placed on top for extra red of protection against infection. Patient is told he cannot get wet.\ Finish antibiotic therapy linezolid 600 twice daily Follow-up in 1 week (2) Decubitus ulcer of right foot, stage 2: CODE(S): L89.892 - Pressure ulcer of other site, stage 2 (3) Unspecified open wound of other part of head, initial encounter: CODE(S): S01.80XA - Unspecified open wound of other part of head, initial encounter PLAN: Left ear healed discontinue treatments 03/23/23 1253 <Electronically signed by Aliya Jones NP COMMERCIAL LOAN PROCESSOR-C> Cosigner Signature (if applicable): CC: ~ Signed [facility] Work Phone: 1(575) 454-129808-16-2023 Progress note Author Aliya Jones [facility] March 16, 2023 12:37pm Note Date/Time March 16, 2023 12 :37pm [facility] [address] [place] [address] Progress Note - Wound Care 03/16/23 1233 MR#: [id number] Acct: [id number] Name: JUAN DAVID HERNÁNDEZ Rep #:[id number] : 1940 82 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 Jose Enrique Finney MD Status:RE G RCR Location: History of Present Illness Date of Service: 03/16/23 Chief Complaint: Follow-up on his left ear laceration from a tree branch and right lateral foot open wound from a blister that was over 1 month old. 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 He has poor hygiene habits. Had developed a blister from his shoe on the right lateral foot that is quite long about 4 cm x 1 cm wide. States it bled like everything because he is on Eliquis. Seeing bleeds stop to get the bleeding under control. Now has developed some slough and fibrous material in the center with I think over a venous vein. Patient has numbing and has no feeling in his lower leg but he does say his feetthrob. He does have many comorbidities such as A-fib diabetes does have a defibrillatorhigh cholesterol BPH Progress of Wound: Left ear is healed. Lateral foot looks much better ,EpiFix we will apply #3 today. Measurements areslightly smaller. No sign of infection Subjective Subjective Patient is good with outcomes Objective Data Objective Data Slightly smaller filling and healing nicely no sign of infection no odor noted. Patient is to finish his antibiotic therapy and reapply number epi #3 Vital Signs: Vital Signs Temp Pulse Resp BP 97 F L 81 18 146/88 H 03/16/23 11:46 03/16/23 11:46 03/16/23 11:46 03/16/23 11:46 Lab / Micro Data Attestation: I reviewed the patient's lab results. Physical Exam Const oriented x3 General Appearance: cooperative Exam Limitations: no limitations HEENT normocephalic Head and Scalp: normal to inspection Face and Sinus: normal facial exam Nose: external nose normal General Ear: hearing grossly impaired External Ear: external ears normal Mouth: oral and palatal mucosa normal Eyes PERRL General Eye: normal appearance of both eyes Neck full ROM General: normal visual inspection Resp normal respiratory effort Effort and Inspection: able to speak in complete sentences Auscultation: clear to auscultation bilaterally Cardio regular rate and regular rhythm Palpation: normal PMI Rate: regular rate Rhythm: regular rhythm GI Auscultation: normoactive bowel sounds Palpation: soft and no hepatosplenomegaly external exam normal Back/Spine Cervical Spine: cervical ROM normal Thoracic Spine / Upper Back: normal to inspection Lumbar Spine / Lower Back: normal to inspection Extremity normal to inspection General Extremity: normal exam except as noted Skin Wounds: wounds noted Wound Narrative: Right lateral foot open wound from blister Left Pe?a superficial laceration in ear from trees branches Neuro oriented x3 Psych Appearance: grossly normal Speech: normal speech Thought Content: normal thought content Judgement: judgement good Debridement Note Debridement Note Wound debrided: Right lateral foot diabetic foot ulcer Laterality: Right Wound Grade/Stage: Stage II Type of Debridement: Excisional debridement Anesthesia Used: 5% Lidocaine Gel Depth: in the subcutaneous layer Percentage of wound debrided: 100 Instrument Used: 5mm curette Tissue Removed: Fibrin Severity: Fat Layer Exposed Amount of bleeding with debridement: Mild Bleeding Controlled with: Pressure and Compression and gauze Patient tolerated procedure: Patient tolerated procedure well Post-Debridement Measurements and Additional Note: Post-Debridement Measurements/Treatment - Nurse 1 - General Ulcer Assessment Start: 03/02/23 11:05 Freq: Status: Active Protocol: ALEJANDRO Activity Type Activity Date Activity User E-sign Co-sign Detail Recorded Client Recorded Date Recorded By Document 03/02/23 11:10 RB [id number] 03/02/23 11:13 RB Document 03/09/23 11:02 DL [id number] 03/09/23 11:08 DL Document 03/16/23 11:46 RB [id number] 03/16/23 11:49 RB 03/02/23 03/09/23 03/16/23 11:10 11:02 11:46 - Today's Visit Information Type of service Follow-up Visit Follow-up Visit Follow-up Visit (Physician/CIVIL ENGINEERING DESIGNER (Physician/CIVIL ENGINEERING DESIGNER (Physician/CIVIL ENGINEERING DESIGNER ) ) ) Arrival Mode Ambulatory Ambulatory Ambulatory Transfer Assistance None None None Patient Identification Verified (Name & Yes Yes Yes ) Patient Requires Transmission-Based No No No Precautions Finger Stick Blood Sugar(mg/dl) (if not checked indicated): Blood Sugar Stated by Patient Vital Signs Temperature (97.8 F-99.1 F) 97 F L 96.9 F L 97 F L Temperature Source Temporal Temporal Temporal Pulse Rate (60-100) 97 82 81 Pulse Location Monitor Monitor Monitor Respiratory Rate (12-18) 18 20 H 18 Respiratory rate source Observation Observation Observation Blood Pressure (90/60-120/80) 119/69 106/61 146/88 H Blood Pressure Mean (mm Hg) 85 76 107 Source Monitor Monitor Monitor Position Semi-Fowlers Semi-Fowlers Blood Pressure Location Left Arm Left Arm History Since Last Visit- (Skip if this is Patient's initial visit) Have you changed medications since your No No No last visit? Any new allergies or adverse reactions No No No Had a fall/change in ADL's that may No No No increase risk of falls Signs or symptoms of abuse and/or No No No neglect since last visit Have you been in the hospital since your No No No last visit? Has dressing in place as prescribed Yes Yes Yes Has compression in place as prescribed No N/A No Has offloadiing in place as prescribed No N/A No Experienced any changes in pain level or No No No management Pain Scale: 0-10 Numeric Is Patient Pain Free? Yes Yes Yes WC - Nurse 1 - General Ulcer Measurement Start: 03/02/23 11:05 Freq: Status: Active Protocol: Activity Type Activity Date Activity User E-sign Co-sign Detail Recorded Client Recorded Date Recorded By Document 03/02/23 11:10 RB [id number] 03/02/23 11:13 RB Document 03/09/23 11:02 DL [id number] 03/09/23 11:08 DL Document 03/16/23 11:46 RB [id number] 03/16/23 11:49 RB 03/02/23 03/09/23 03/16/23 11:10 11:02 11:46 Wound Center Nurse 1 #2- L EAR -Combined with other wound No No -Current Size (cm) - Length 0.1 0.6 0.1 -Current Size (cm) - Width 0.1 0.3 0.1 -Current Size (cm) - Depth 0.1 0.2 0.1 -Total Square Cm 0.01 0.18 0.01 -Tunneling No No -Undermining/Tunneling No No -Circular Undermining No No -Exudate Amt Small None Present -Exudate Type Serosanguineous -Wound Margin Distinct, Distinct, Outline Outline Attached Attached -Granulation Amt Medium (34-66%) Small (1-33%) Medium (34-66%) -Granulation Quality Oxly Oxly,Red Oxly -Slough/Fibrin Yes Yes -Necrosis Amt Medium (34-66%) Small (1-33%) Small (1-33%) -Necrotic Tissue Type Adherent Slough Adherent Slough Adherent Slough -Structure Exposed N/A N/A -Texture (Laya-wound Skin Appearance) Assessed Scarring Assessed -Moisture (Laya-wound Skin Appearance) Assessed No Abnormality Assessed -Color (Laya-wound Skin Appearance) Assessed No Abnormality Assessed -Temperature (Laya-wound Skin No Abnormality No Abnormality No Abnormality Appearance) (Pt Warm) (Pt Warm) (Pt Warm) -Tenderness on Palpation (Laya-wound No No No Skin Appearance) -Ulcer Cleansing Wound Cleanser Rinsed/ Wound Cleanser Irrigated with Saline -Foul Odor after Cleansing No No No -Anesthetic Used 5% Lidocaine 5% Lidocaine Gel Gel #1- R LAT FOOT -Combined with other wound No No -Current Size (cm) - Length 3 4 4 -Current Size (cm) - Width 1.4 1.2 1 -Current Size (cm) - Depth 0.2 0.2 0.1 -Total Square Cm 4.2 4.8 4 -Tunneling No No -Undermining/Tunneling No No -Circular Undermining No No -Exudate Amt Medium Medium Medium -Exudate Type Serosanguineous Serosanguineous Serosanguineous -Wound Margin Distinct, Distinct, Distinct, Outline Outline Outline Attached Attached Attached -Granulation Amt Medium (34-66%) Medium (34-66%) Medium (34-66%) -Granulation Quality Oxly Oxly Oxly -Slough/Fibrin Yes Yes -Necrosis Amt Medium (34-66%) Medium (34-66%) Medium (34-66%) -Necrotic Tissue Type Adherent Slough Adherent Slough Adherent Slough -Structure Exposed N/A N/A N/A -Texture (Laya-wound Skin Appearance) Assessed Scarring Assessed -Moisture (Laya-wound Skin Appearance) Assessed Maceration Assessed, Maceration -Color (Laya-wound Skin Appearance) Assessed No Abnormality Assessed -Temperature (Laya-wound Skin No Abnormality No Abnormality No Abnormality Appearance) (Pt Warm) (Pt Warm) (Pt Warm) -Tenderness on Palpation (Laya-wound No No No Skin Appearance) -Ulcer Cleansing Wound Cleanser Soap and Water Wound Cleanser -Foul Odor after Cleansing No Yes, Due to No Product Use -Anesthetic Used 5% Lidocaine 5% Lidocaine 5% Lidocaine Gel Gel Gel Lower Limb Edema Present Yes Right Calf (cm) 36 Right Ankle (cm) 22 WC - Nurse 2 - General Ulcer CM Notes Start: 03/02/23 11:05 Freq: Status: Active Protocol: Activity Type Activity Date Activity User E-sign Co-sign Detail Recorded Client Recorded Date Recorded By Document 03/02/23 11:24 MW [id number] 03/02/23 11:36 MW Edit Result 03/02/23 11:24 MW (1) [id number] 03/02/23 11:39 MW Document 03/09/23 11:24 MW [id number] 03/09/23 11:33 MW Document 03/16/23 11:49 MW [id number] 03/16/23 11:56 MW (1) #2- L EAR - Procedure Performed No => Yes - Type of Procedure => Debridement - Clinical Debridement => Subcutaneous - Tissue Removed => Subcutaneous - Tunneling => No - Undermining/Tunneling => No - Circular Undermining => No - Wound/Ulcer Outcome => Not Healed - Ulcer Cleansing => Rinsed/Irrigated => with Saline - Foul Odor after Cleansing => No - Bioengineered Tissue => No - Bleeding Controlled with => Pressure - Treatment Response => Procedure => Tolerated Well - Offloading => No - Debridement - Subq, 1st 20sq cm => Yes 03/02/23 03/09/23 03/16/23 11:24 11:24 11:49 Wound Center Nurse 2 #2- L EAR -Time 11:25 11:31 11:52 -Correct Patient Yes Yes Yes -Correct Side, Site, Position Yes Yes Yes -Correct Procedure Yes Yes Yes -Procedure Performed Yes Yes No -Type of Procedure Debridement Debridement -Clinical Debridement Subcutaneous Subcutaneous -Tissue Removed Subcutaneous Subcutaneous -Post Debridement (cm) - Length 0.4 0 -Post Debridement (cm) - Width 0.3 0 -Post Debridement (cm) - Depth 0.1 0 -Total Square (Post) (cm) 0.12 0 -Area of Debridement (cm) - Length 0.4 -Area of Debridement (cm) - Width 0.3 -Total Square (Area) (cm) 0.12 -Tunneling No No -Undermining/Tunneling No No -Circular Undermining No No -Wound/Ulcer Outcome Not Healed Not Healed Healed- Epithelialized -Ulcer Cleansing Rinsed/ Rinsed/ Irrigated with Irrigated with Saline Saline -Foul Odor after Cleansing No No -Bioengineered Tissue No No -Bleeding Controlled with Pressure Pressure -Treatment Response Procedure Procedure Tolerated Well Tolerated Well -Offloading No No -Debridement - Subq, 1st 20sq cm Yes Yes #1- R LAT FOOT -Time 11:25 11:29 11:53 -Correct Patient Yes Yes Yes -Correct Side, Site, Position Yes Yes Yes -Correct Procedure Yes Yes Yes -Procedure Performed Yes Yes Yes -Type of Procedure Debridement Debridement Debridement -Clinical Debridement Subcutaneous Subcutaneous Subcutaneous -Tissue Removed Subcutaneous Subcutaneous Subcutaneous -Post Debridement (cm) - Length 4.3 4.2 4.1 -Post Debridement (cm) - Width 1.4 1.3 1.2 -Post Debridement (cm) - Depth 0.2 0.2 0.2 -Total Square (Post) (cm) 6.02 5.46 4.92 -Area of Debridement (cm) - Length 4.3 4.2 4.1 -Area of Debridement (cm) - Width 1.4 1.3 1.2 -Total Square (Area) (cm) 6.02 5.46 4.92 -Tunneling No No No -Undermining/Tunneling No No No -Circular Undermining No No No -Wound/Ulcer Outcome Not Healed Not Healed Not Healed -Ulcer Cleansing Rinsed/ Rinsed/ Rinsed/ Irrigated with Irrigated with Irrigated with Saline Saline Saline -Foul Odor after Cleansing No No No -Bioengineered Tissue Yes Yes Yes -Type of Bioengineered Tissue Epifix Epifix Mesh Epifix -Expiration Date 10/31/27 11/30/27 10/31/27 -Product Lot Number [id number] -Percent Used 100 100 100 -Lot number of Saline Used [id number] -Bleeding Controlled with Pressure Pressure Pressure -Treatment Response Procedure Procedure Procedure Tolerated Well Tolerated Well Tolerated Well -Offloading No No No -Debridement - Subq, 1st 20sq cm No No No -Apply Skin Sub - 1st 25 sq cm - Legs 1 -Apply Skin Sub - 1st 25 sq cm - Feet 1 -Apply Skin Sub - each addt'l 25 sq cm 1 - Feet -Epifix (per sq cm) 11 4 -Epifix Mesh (per sq cm) 11 Pain Scale: 0-10 Numeric Is Patient Pain Free? Yes Yes Yes - Nurse 3 - General Ulcer D/C NN Start: 03/02/23 11:05 Freq: Status: Active Protocol: Activity Type Activity Date Activity User E-sign Co-sign Detail Recorded Client Recorded Date Recorded By Document 03/02/23 11:43 RB [id number] 03/02/23 11:45 RB Document 03/09/23 11:44 DL [id number] 03/09/23 11:46 DL Document 03/16/23 12:06 [facility] [id number] 03/16/23 12:07 [facility] 03/02/23 03/09/23 03/16/23 11:43 11:44 12:06 Wound Care Center Nurse 3 #2- L EAR -Ulcer Cleansing Rinsed/ Rinsed/ Irrigated with Irrigated with Saline Saline -Foul Odor after Cleansing No -Primary Dressing Applied NonAdherent Contact Layer -Other Dressing xeroform to L bactroban/ ear gauze xerofrom -Primary Dressing Covered/Secured with Dry Gauze, Dry Gauze, Secured with Secured with Tape Tape #1- R LAT FOOT -Ulcer Cleansing Rinsed/ Irrigated with Saline -Foul Odor after Cleansing No -Primary Dressing Applied Aquacel Extra, Aquacel Extra, Aquacel Extra, Mepilex Border Mepilex Border Mepilex Border -Other Dressing EpiFix EPIFIX; DRSG PER RB RN -Primary Dressing Covered/Secured with Dry Gauze Dry Gauze & Dry Gauze & Roll Gauze, Roll Gauze, Secured with Secured with Tape Tape -Aquacel Extra 1 1 1 -Mepilex Border 1 1 1 Treatment Response Procedure Procedure Procedure Tolerated Well Tolerated Well Tolerated Well Pain Scale: 0-10 Numeric Is Patient Pain Free? Yes Yes Yes - Visit Discharge Discharge Condition Stable Stable Stable Ambulatory Status Ambulatory Ambulatory Ambulatory Transportation Private Auto Private Auto Private Auto Medication Reconcilliation completed & No provided to patient/care provider Clinical Summary of Care Provided Yes Assessment/Plan Assessment/Plan (1) Diabetic foot ulcer associated with type 2 diabetes mellitus: CODE(S): E11.621 - Type 2 diabetes mellitus with foot ulcer; L97.509 - Non- pressure chronic ulcer of other part of unspecified foot with unspecified severity QUALIFIERS: Diabetic foot ulcer location: midfoot Laterality: right Non-pressure ulcer stage: with fat layer exposed Qualified Code(s): E11.621 - Type 2 diabetes mellitus with foot ulcer; L97.412 - Non-pressure chronic ulcer of right heel and midfoot with fat layer exposed PLAN: Applied EpiFix #3 to right lateral foot veil was covered and Aquacel extrawas placed on top for extra red of protection against infection. Patient is told he cannot get wet.\ Finish antibiotic therapy Follow-up in 1 week (2) Decubitus ulcer of right foot, stage 2: CODE(S): L89.892 - Pressure ulcer of other site, stage 2 (3) Unspecified open wound of other part of head, initial encounter: CODE(S): S01.80XA - Unspecified open wound of other part of head, initial encounter PLAN: Left ear healed discontinue treatments 03/16/23 1237 <Electronically signed by Aliya Jones NP COMMERCIAL LOAN PROCESSOR-C> Cosigner Signature (if applicable): CC: ~ Signed [facility] Work Phone: 1(591) 194-638908-09-2023 Progress note Author Aliya Jones [facility] March 09, 2023 12:07pm Note Date/Time March 09, 2023 12: 07pm [facility] [address] [place] [address] Progress Note - Wound Care 03/09/23 1200 MR#: [id number] Acct: [id number] Name: JUAN DAVID HERNÁNDEZ Rep #:[id number] : 1940 82 From: Aliya oJnes 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 Jose Enrique Finney MD Status:RE G RCR Location: History of Present Illness Date of Service: 03/09/23 Chief Complaint: Follow-up on his left ear laceration from a tree branch and right lateral foot open wound from a blister that was over 1 month old. 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 He has poor hygiene habits. Had developed a blister from his shoe on the right lateral foot that is quite long about 4 cm x 1 cm wide. States it bled like everything because he is on Eliquis. Seeing bleeds stop to get the bleeding under control. Now has developed some slough and fibrous material in the center with I think over a venous vein. Patient has numbing and has no feeling in his lower leg but he does say his feetthrob. He does have many comorbidities such as A-fib diabetes does have a defibrillatorhigh cholesterol BPH Progress of Wound: Left ear is very superficial now with this very small opening. 1 more week of the Xeroform and Bactroban should heal that ear. Lateral foot looks much better even after only 1 EpiFix we will apply #2 today. Measurements are slightly smaller. No sign of infection Subjective Subjective Patient is happy with care and keeping his feet superclean Objective Data Objective Data Finished epi #1 EpiFix #2 will be applied looks clean margins look good filling in nicely depth is better no sign of infection noted. Vital Signs: Vital Signs Temp Pulse Resp BP 96.9 F L 82 20 H 106/61 03/09/23 11:02 03/09/23 11:02 03/09/23 11:02 03/09/23 11:02 Physical Exam Const oriented x3 General Appearance: cooperative Exam Limitations: no limitations HEENT normocephalic Head and Scalp: normal to inspection Face and Sinus: normal facial exam Nose: external nose normal General Ear: hearing grossly impaired External Ear: external ears normal Mouth: oral and palatal mucosa normal Eyes PERRL General Eye: normal appearance of both eyes Neck full ROM General: normal visual inspection Resp normal respiratory effort Effort and Inspection: able to speak in complete sentences Auscultation: clear to auscultation bilaterally Cardio regular rate and regular rhythm Palpation: normal PMI Rate: regular rate Rhythm: regular rhythm GI Auscultation: normoactive bowel sounds Palpation: soft and no hepatosplenomegaly external exam normal Back/Spine Cervical Spine: cervical ROM normal Thoracic Spine / Upper Back: normal to inspection Lumbar Spine / Lower Back: normal to inspection Extremity normal to inspection General Extremity: normal exam except as noted Skin Wounds: wounds noted Wound Narrative: Right lateral foot open wound from blister Left Pe?a superficial laceration in ear from trees branches Neuro oriented x3 Psych Appearance: grossly normal Speech: normal speech Thought Content: normal thought content Judgement: judgement good Debridement Note Debridement Note Wound debrided: Right lateral diabetic foot ulcer Laterality: Right Wound Grade/Stage: Stage II Type of Debridement: Excisional debridement Anesthesia Used: 5% Lidocaine Gel Depth: Down to and including healthy tissue and in the subcutaneous layer Percentage of wound debrided: 100 Instrument Used: 5mm curette Tissue Removed: Fibrin and some devitalized tissue Severity: Fat Layer Exposed Amount of bleeding with debridement: Mild Bleeding Controlled with: Compression and gauze Patient tolerated procedure: Patient tolerated procedure well Post-Debridement Measurements and Additional Note: Post-Debridement Measurements/Treatment BRUNO - Nurse 1 - General Ulcer Assessment Start: 03/02/23 11:05 Freq: Status: Active Protocol: ALEJANDRO Activity Type Activity Date Activity User E-sign Co-sign Detail Recorded Client Recorded Date Recorded By Document 03/02/23 11:10 RB [id number] 03/02/23 11:13 RB Document 03/09/23 11:02 DL [id number] 03/09/23 11:08 DL 03/02/23 03/09/23 11:10 11:02 - Today's Visit Information Type of service Follow-up Visit Follow-up Visit (Physician/CIVIL ENGINEERING DESIGNER (Physician/CIVIL ENGINEERING DESIGNER ) ) Arrival Mode Ambulatory Ambulatory Transfer Assistance None None Patient Identification Verified (Name & Yes Yes ) Patient Requires Transmission-Based No No Precautions Finger Stick Blood Sugar(mg/dl) (if not checked indicated): Blood Sugar Stated by Patient Vital Signs Temperature (97.8 F-99.1 F) 97 F L 96.9 F L Temperature Source Temporal Temporal Pulse Rate (60-100) 97 82 Pulse Location Monitor Monitor Respiratory Rate (12-18) 18 20 H Respiratory rate source Observation Observation Blood Pressure (90/60-120/80) 119/69 106/61 Blood Pressure Mean (mm Hg) 85 76 Source Monitor Monitor Position Semi-Fowlers Blood Pressure Location Left Arm History Since Last Visit- (Skip if this is Patient's initial visit) Have you changed medications since your No No last visit? Any new allergies or adverse reactions No No Had a fall/change in ADL's that may No No increase risk of falls Signs or symptoms of abuse and/or No No neglect since last visit Have you been in the hospital since your No No last visit? Has dressing in place as prescribed Yes Yes Has compression in place as prescribed No N/A Has offloadiing in place as prescribed No N/A Experienced any changes in pain level or No No management Pain Scale: 0-10 Numeric Is Patient Pain Free? Yes Yes WC - Nurse 1 - General Ulcer Measurement Start: 03/02/23 11:05 Freq: Status: Active Protocol: Activity Type Activity Date Activity User E-sign Co-sign Detail Recorded Client Recorded Date Recorded By Document 03/02/23 11:10 RB [id number] 03/02/23 11:13 RB Document 03/09/23 11:02 DL [id number] 03/09/23 11:08 DL 03/02/23 03/09/23 11:10 11:02 Wound Center Nurse 1 #2- L EAR -Combined with other wound No -Current Size (cm) - Length 0.1 0.6 -Current Size (cm) - Width 0.1 0.3 -Current Size (cm) - Depth 0.1 0.2 -Total Square Cm 0.01 0.18 -Tunneling No -Undermining/Tunneling No -Circular Undermining No -Exudate Amt Small None Present -Exudate Type Serosanguineous -Wound Margin Distinct, Distinct, Outline Outline Attached Attached -Granulation Amt Medium (34-66%) Small (1-33%) -Granulation Quality Oxly Oxly,Red -Slough/Fibrin Yes -Necrosis Amt Medium (34-66%) Small (1-33%) -Necrotic Tissue Type Adherent Slough Adherent Slough -Structure Exposed N/A -Texture (Laya-wound Skin Appearance) Assessed Scarring -Moisture (Laya-wound Skin Appearance) Assessed No Abnormality -Color (Laya-wound Skin Appearance) Assessed No Abnormality -Temperature (Laya-wound Skin No Abnormality No Abnormality Appearance) (Pt Warm) (Pt Warm) -Tenderness on Palpation (Laya-wound No No Skin Appearance) -Ulcer Cleansing Wound Cleanser Rinsed/ Irrigated with Saline -Foul Odor after Cleansing No No -Anesthetic Used 5% Lidocaine Gel #1- R LAT FOOT -Combined with other wound No -Current Size (cm) - Length 3 4 -Current Size (cm) - Width 1.4 1.2 -Current Size (cm) - Depth 0.2 0.2 -Total Square Cm 4.2 4.8 -Tunneling No -Undermining/Tunneling No -Circular Undermining No -Exudate Amt Medium Medium -Exudate Type Serosanguineous Serosanguineous -Wound Margin Distinct, Distinct, Outline Outline Attached Attached -Granulation Amt Medium (34-66%) Medium (34-66%) -Granulation Quality Oxly Oxly -Slough/Fibrin Yes -Necrosis Amt Medium (34-66%) Medium (34-66%) -Necrotic Tissue Type Adherent Slough Adherent Slough -Structure Exposed N/A N/A -Texture (Laya-wound Skin Appearance) Assessed Scarring -Moisture (Laya-wound Skin Appearance) Assessed Maceration -Color (Laya-wound Skin Appearance) Assessed No Abnormality -Temperature (Laya-wound Skin No Abnormality No Abnormality Appearance) (Pt Warm) (Pt Warm) -Tenderness on Palpation (Laya-wound No No Skin Appearance) -Ulcer Cleansing Wound Cleanser Soap and Water -Foul Odor after Cleansing No Yes, Due to Product Use -Anesthetic Used 5% Lidocaine 5% Lidocaine Gel Gel WC - Nurse 2 - General Ulcer CM Notes Start: 03/02/23 11:05 Freq: Status: Active Protocol: Activity Type Activity Date Activity User E-sign Co-sign Detail Recorded Client Recorded Date Recorded By Document 03/02/23 11:24 MW [id number] 03/02/23 11:36 MW Edit Result 03/02/23 11:24 MW (1) [id number] 03/02/23 11:39 MW Document 03/09/23 11:24 MW [id number] 03/09/23 11:33 MW (1) #2- L EAR - Procedure Performed No => Yes - Type of Procedure => Debridement - Clinical Debridement => Subcutaneous - Tissue Removed => Subcutaneous - Tunneling => No - Undermining/Tunneling => No - Circular Undermining => No - Wound/Ulcer Outcome => Not Healed - Ulcer Cleansing => Rinsed/Irrigated => with Saline - Foul Odor after Cleansing => No - Bioengineered Tissue => No - Bleeding Controlled with => Pressure - Treatment Response => Procedure => Tolerated Well - Offloading => No - Debridement - Subq, 20sq cm => Yes 03/02/23 03/09/23 11:24 11:24 Wound Center Nurse 2 #2- L EAR -Time 11: 11:31 -Correct Patient Yes Yes -Correct Side, Site, Position Yes Yes -Correct Procedure Yes Yes -Procedure Performed Yes Yes -Type of Procedure Debridement Debridement -Clinical Debridement Subcutaneous Subcutaneous -Tissue Removed Subcutaneous Subcutaneous -Post Debridement (cm) - Length 0.4 -Post Debridement (cm) - Width 0.3 -Post Debridement (cm) - Depth 0.1 -Total Square (Post) (cm) 0.12 -Area of Debridement (cm) - Length 0.4 -Area of Debridement (cm) - Width 0.3 -Total Square (Area) (cm) 0.12 -Tunneling No No -Undermining/Tunneling No No -Circular Undermining No No -Wound/Ulcer Outcome Not Healed Not Healed -Ulcer Cleansing Rinsed/ Rinsed/ Irrigated with Irrigated with Saline Saline -Foul Odor after Cleansing No No -Bioengineered Tissue No No -Bleeding Controlled with Pressure Pressure -Treatment Response Procedure Procedure Tolerated Well Tolerated Well -Offloading No No -Debridement - Subq, 20sq cm Yes Yes #1- R LAT FOOT -Time 11: 11:29 -Correct Patient Yes Yes -Correct Side, Site, Position Yes Yes -Correct Procedure Yes Yes -Procedure Performed Yes Yes -Type of Procedure Debridement Debridement -Clinical Debridement Subcutaneous Subcutaneous -Tissue Removed Subcutaneous Subcutaneous -Post Debridement (cm) - Length 4.3 4.2 -Post Debridement (cm) - Width 1.4 1.3 -Post Debridement (cm) - Depth 0.2 0.2 -Total Square (Post) (cm) 6.02 5.46 -Area of Debridement (cm) - Length 4.3 4.2 -Area of Debridement (cm) - Width 1.4 1.3 -Total Square (Area) (cm) 6.02 5.46 -Tunneling No No -Undermining/Tunneling No No -Circular Undermining No No -Wound/Ulcer Outcome Not Healed Not Healed -Ulcer Cleansing Rinsed/ Rinsed/ Irrigated with Irrigated with Saline Saline -Foul Odor after Cleansing No No -Bioengineered Tissue Yes Yes -Type of Bioengineered Tissue Epifix Epifix Mesh -Expiration Date 10/31/27 11/30/27 -Product Lot Number [id number] -Percent Used 100 100 -Lot number of Saline Used [id number] -Bleeding Controlled with Pressure Pressure -Treatment Response Procedure Procedure Tolerated Well Tolerated Well -Offloading No No -Debridement - Subq, 1st 20sq cm No No -Apply Skin Sub - 1st 25 sq cm - Feet 1 -Apply Skin Sub - each addt'l 25 sq cm 1 - Feet -Epifix (per sq cm) 11 -Epifix Mesh (per sq cm) 11 Pain Scale: 0-10 Numeric Is Patient Pain Free? Yes Yes WC - Nurse 3 - General Ulcer D/C NN Start: 03/02/23 11:05 Freq: Status: Active Protocol: Activity Type Activity Date Activity User E-sign Co-sign Detail Recorded Client Recorded Date Recorded By Document 03/02/23 11:43 RB [id number] 03/02/23 11:45 RB Document 03/09/23 11:44 DL [id number] 03/09/23 11:46 DL 03/02/23 03/09/23 11:43 11:44 Wound Care Center Nurse 3 #2- L EAR -Ulcer Cleansing Rinsed/ Rinsed/ Irrigated with Irrigated with Saline Saline -Foul Odor after Cleansing No -Primary Dressing Applied NonAdherent Contact Layer -Other Dressing xeroform to L bactroban/ ear gauze xerofrom -Primary Dressing Covered/Secured with Dry Gauze, Dry Gauze, Secured with Secured with Tape Tape #1- R LAT FOOT -Ulcer Cleansing Rinsed/ Irrigated with Saline -Foul Odor after Cleansing No -Primary Dressing Applied Aquacel Extra, Aquacel Extra, Mepilex Border Mepilex Border -Other Dressing EpiFix -Primary Dressing Covered/Secured with Dry Gauze Dry Gauze & Roll Gauze, Secured with Tape -Aquacel Extra 1 1 -Mepilex Border 1 1 Treatment Response Procedure Procedure Tolerated Well Tolerated Well Pain Scale: 0-10 Numeric Is Patient Pain Free? Yes Yes WC - Visit Discharge Discharge Condition Stable Stable Ambulatory Status Ambulatory Ambulatory Transportation Private Auto Private Auto Medication Reconcilliation completed & No provided to patient/care provider Clinical Summary of Care Provided Yes Additional Wound Wound debrided: Left outer ear traumatic opening from a tree stick Laterality: Left Type of Debridement: Excisional debridement Anesthesia Used: 5% Lidocaine Gel Depth: Down to and including healthy tissue Percentage of wound debrided: 100 Instrument Used: 3mm curette Tissue Removed: Fibrin Severity: Limited To Skin Breakdown Amount of bleeding with debridement: Mild Bleeding Controlled with: Compression and gauze Patient tolerated procedure: Patient tolerated procedure well Assessment/Plan Assessment/Plan (1) Diabetic foot ulcer associated with type 2 diabetes mellitus: CODE(S): E11.621 - Type 2 diabetes mellitus with foot ulcer; L97.509 - Non- pressure chronic ulcer of other part of unspecified foot with unspecified severity QUALIFIERS: Diabetic foot ulcer location: midfoot Laterality: right Non-pressure ulcer stage: with fat layer exposed Qualified Code(s): E11.621 - Type 2 diabetes mellitus with foot ulcer; L97.412 - Non-pressure chronic ulcer of right heel and midfoot with fat layer exposed PLAN: Applied EpiFix #2 to right lateral foot veil was covered and Aquacel extrawas placed on top for extra red of protection against infection. Patient is told he cannot get wet. Follow-up in 1 week (2) Decubitus ulcer of right foot, stage 2: CODE(S): L89.892 - Pressure ulcer of other site, stage 2 (3) Unspecified open wound of other part of head, initial encounter: CODE(S): S01.80XA - Unspecified open wound of other part of head, initial encounter PLAN: Wash with antibacterial soap and apply Bactroban to base then Xeroform dressing and leave open to air Patient has finished his linezolid 03/09/23 1207 <Electronically signed by Aliya Jones NP COMMERCIAL LOAN PROCESSOR-C> Cosigner Signature (if applicable): CC: ~ Signed [facility] Work Phone: 1(656) 351-625508-02-2023 Progress note Author Aliya Jones [facility] March 02, 2023 1:26pm Note Date/Time March 02, 2023 1:1 9pm [facility] [address] [place] [place] [address] Progress Note - Wound Care 03/02/23 1317 MR#: [id number] Acct: [id number] Name: JUAN DAVID HERNÁNDEZ Rep #:[id number] : 1940 82 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 Jose Enrique Finney MD Status:RE G RCR Location: History of Present Illness Date of Service: 03/02/23 Chief Complaint: Follow-up on his left ear laceration from a tree branch and right lateral foot open wound from a blister that was over 1 month old. 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 He has poor hygiene habits. Had developed a blister from his shoe on the right lateral foot that is quite long about 4 cm x 1 cm wide. States it bled like everything because he is on Eliquis. Seeing bleeds stop to get the bleeding under control. Now has developed some slough and fibrous material in the center with I think over a venous vein. Patient has numbing and has no feeling in his lower leg but he does say his feetthrob. He does have many comorbidities such as A-fib diabetes does have a defibrillatorhigh cholesterol BPH Progress of Wound: The left ear with the nitrous stick did not work we will go back to using Xeroform packed into the wound. Still has depth and opening. Right lateral foot looks better more shallow measures about the same less depth. Has been trying to keep it mold sheet cleaner. Was approved for EpiFix we applied EpiFix to the wound base follow him up in 1 week Subjective Subjective Patient is okay with all treatments Objective Data Objective Data Still has the infection did not tolerate the Levaquin we will try Lenzo at this time on him and see if that works better. Vital Signs: Vital Signs Temp Pulse Resp BP 97 F L 97 18 119/69 03/02/23 11:10 03/02/23 11:10 03/02/23 11:10 03/02/23 11:10 Lab / Micro Data Attestation: I reviewed the patient's lab results. Debridement Note Debridement Note Wound debrided: Right lateral foot traumatic opening DFU Laterality: Right Wound Grade/Stage: Stage II Type of Debridement: Excisional debridement Anesthesia Used: 5% Lidocaine Gel Depth: Down to and including healthy tissue Percentage of wound debrided: 100 Instrument Used: 5mm curette Tissue Removed: Devitalized tissue and fibrin Severity: Fat Layer Exposed Amount of bleeding with debridement: Mild Bleeding Controlled with: Compression and gauze Patient tolerated procedure: Patient tolerated procedure well Post-Debridement Measurements and Additional Note: Post-Debridement Measurements/Treatment BRUNO - Nurse 1 - General Ulcer Assessment Start: 03/02/23 11:05 Freq: Status: Active Protocol: ALEJANDRO Activity Type Activity Date Activity User E-sign Co-sign Detail Recorded Client Recorded Date Recorded By Document 03/02/23 11:10 DAISY [id number] 03/02/23 11:13 DAISY 03/02/23 11:10 BRUNO Vora Today's Visit Information Type of service Follow-up Visit (Physician/CIVIL ENGINEERING DESIGNER ) Arrival Mode Ambulatory Transfer Assistance None Patient Identification Verified (Name & Yes ) Patient Requires Transmission-Based No Precautions Vital Signs Temperature (97.8 F-99.1 F) 97 F L Temperature Source Temporal Pulse Rate (60-100) 97 Pulse Location Monitor Respiratory Rate (12-18) 18 Respiratory rate source Observation Blood Pressure (90/60-120/80) 119/69 Blood Pressure Mean (mm Hg) 85 Source Monitor Position Semi-Fowlers Blood Pressure Location Left Arm History Since Last Visit- (Skip if this is Patient's initial visit) Have you changed medications since your No last visit? Any new allergies or adverse reactions No Had a fall/change in ADL's that may No increase risk of falls Signs or symptoms of abuse and/or No neglect since last visit Have you been in the hospital since your No last visit? Has dressing in place as prescribed Yes Has compression in place as prescribed No Has offloadiing in place as prescribed No Experienced any changes in pain level or No management Pain Scale: 0-10 Numeric Is Patient Pain Free? Yes Diony Nurse 1 - General Ulcer Measurement Start: 03/02/23 11:05 Freq: Status: Active Protocol: Activity Type Activity Date Activity User E-sign Co-sign Detail Recorded Client Recorded Date Recorded By Document 03/02/23 11:10 DAISY [id number] 03/02/23 11:13 RB 03/02/23 11:10 Wound Center Nurse 1 #2- L EAR -Combined with other wound No -Current Size (cm) - Length 0.1 -Current Size (cm) - Width 0.1 -Current Size (cm) - Depth 0.1 -Total Square Cm 0.01 -Tunneling No -Undermining/Tunneling No -Circular Undermining No -Exudate Amt Small -Exudate Type Serosanguineous -Wound Margin Distinct, Outline Attached -Granulation Amt Medium (34-66%) -Granulation Quality Oxly -Slough/Fibrin Yes -Necrosis Amt Medium (34-66%) -Necrotic Tissue Type Adherent Slough -Structure Exposed N/A -Texture (Laya-wound Skin Appearance) Assessed -Moisture (Laya-wound Skin Appearance) Assessed -Color (Laya-wound Skin Appearance) Assessed -Temperature (Laya-wound Skin No Abnormality Appearance) (Pt Warm) -Tenderness on Palpation (Laya-wound No Skin Appearance) -Ulcer Cleansing Wound Cleanser -Foul Odor after Cleansing No #1- R LAT FOOT -Combined with other wound No -Current Size (cm) - Length 3 -Current Size (cm) - Width 1.4 -Current Size (cm) - Depth 0.2 -Total Square Cm 4.2 -Tunneling No -Undermining/Tunneling No -Circular Undermining No -Exudate Amt Medium -Exudate Type Serosanguineous -Wound Margin Distinct, Outline Attached -Granulation Amt Medium (34-66%) -Granulation Quality Oxly -Slough/Fibrin Yes -Necrosis Amt Medium (34-66%) -Necrotic Tissue Type Adherent Slough -Structure Exposed N/A -Texture (Laya-wound Skin Appearance) Assessed -Moisture (Laya-wound Skin Appearance) Assessed -Color (Laya-wound Skin Appearance) Assessed -Temperature (Laya-wound Skin No Abnormality Appearance) (Pt Warm) -Tenderness on Palpation (Laya-wound No Skin Appearance) -Ulcer Cleansing Wound Cleanser -Foul Odor after Cleansing No -Anesthetic Used 5% Lidocaine Gel WC - Nurse 2 - General Ulcer CM Notes Start: 03/02/23 11:05 Freq: Status: Active Protocol: Activity Type Activity Date Activity User E-sign Co-sign Detail Recorded Client Recorded Date Recorded By Document 03/02/23 11:24 MW [id number] 03/02/23 11:36 MW Edit Result 03/02/23 11:24 MW (1) [id number] 03/02/23 11:39 MW (1) #2- L EAR - Procedure Performed No => Yes - Type of Procedure => Debridement - Clinical Debridement => Subcutaneous - Tissue Removed => Subcutaneous - Tunneling => No - Undermining/Tunneling => No - Circular Undermining => No - Wound/Ulcer Outcome => Not Healed - Ulcer Cleansing => Rinsed/Irrigated => with Saline - Foul Odor after Cleansing => No - Bioengineered Tissue => No - Bleeding Controlled with => Pressure - Treatment Response => Procedure => Tolerated Well - Offloading => No - Debridement - Subq, 1st 20sq cm => Yes 03/02/23 11:24 Wound Center Nurse 2 #2- L EAR -Time 11:25 -Correct Patient Yes -Correct Side, Site, Position Yes -Correct Procedure Yes -Procedure Performed Yes -Type of Procedure Debridement -Clinical Debridement Subcutaneous -Tissue Removed Subcutaneous -Tunneling No -Undermining/Tunneling No -Circular Undermining No -Wound/Ulcer Outcome Not Healed -Ulcer Cleansing Rinsed/ Irrigated with Saline -Foul Odor after Cleansing No -Bioengineered Tissue No -Bleeding Controlled with Pressure -Treatment Response Procedure Tolerated Well -Offloading No -Debridement - Subq, 1st 20sq cm Yes #1- R LAT FOOT -Time 11:25 -Correct Patient Yes -Correct Side, Site, Position Yes -Correct Procedure Yes -Procedure Performed Yes -Type of Procedure Debridement -Clinical Debridement Subcutaneous -Tissue Removed Subcutaneous -Post Debridement (cm) - Length 4.3 -Post Debridement (cm) - Width 1.4 -Post Debridement (cm) - Depth 0.2 -Total Square (Post) (cm) 6.02 -Area of Debridement (cm) - Length 4.3 -Area of Debridement (cm) - Width 1.4 -Total Square (Area) (cm) 6.02 -Tunneling No -Undermining/Tunneling No -Circular Undermining No -Wound/Ulcer Outcome Not Healed -Ulcer Cleansing Rinsed/ Irrigated with Saline -Foul Odor after Cleansing No -Bioengineered Tissue Yes -Type of Bioengineered Tissue Epifix -Expiration Date 10/31/27 -Product Lot Number [id number] -Percent Used 100 -Lot number of Saline Used [id number] -Bleeding Controlled with Pressure -Treatment Response Procedure Tolerated Well -Offloading No -Debridement - Subq, 1st 20sq cm No -Apply Skin Sub - 1st 25 sq cm - Feet 1 -Epifix (per sq cm) 11 Pain Scale: 0-10 Numeric Is Patient Pain Free? Yes - Nurse 3 - General Ulcer D/C NN Start: 03/02/23 11:05 Freq: Status: Active Protocol: Activity Type Activity Date Activity User E-sign Co-sign Detail Recorded Client Recorded Date Recorded By Document 03/02/23 11:43 RB [id number] 03/02/23 11:45 RB 03/02/23 11:43 Wound Care Center Nurse 3 #2- L EAR -Ulcer Cleansing Rinsed/ Irrigated with Saline -Primary Dressing Applied NonAdherent Contact Layer -Other Dressing xeroform to L ear gauze -Primary Dressing Covered/Secured with Dry Gauze, Secured with Tape #1- R LAT FOOT -Ulcer Cleansing Rinsed/ Irrigated with Saline -Primary Dressing Applied Aquacel Extra, Mepilex Border -Primary Dressing Covered/Secured with Dry Gauze -Aquacel Extra 1 -Mepilex Border 1 Treatment Response Procedure Tolerated Well Pain Scale: 0-10 Numeric Is Patient Pain Free? Yes - Visit Discharge Discharge Condition Stable Ambulatory Status Ambulatory Transportation Private Auto Medication Reconcilliation completed & No provided to patient/care provider Clinical Summary of Care Provided Yes Assessment/Plan Assessment/Plan (1) Diabetic foot ulcer associated with type 2 diabetes mellitus: CODE(S): E11.621 - Type 2 diabetes mellitus with foot ulcer; L97.509 - Non- pressure chronic ulcer of other part of unspecified foot with unspecified severity QUALIFIERS: Diabetic foot ulcer location: midfoot Laterality: right Non-pressure ulcer stage: with fat layer exposed Qualified Code(s): E11.621 - Type 2 diabetes mellitus with foot ulcer; L97.412 - Non-pressure chronic ulcer of right heel and midfoot with fat layer exposed PLAN: Applied EpiFix #1 to right lateral foot veil was covered and Aquacel extrawas placed on top for extra red of protection against infection. Patient is told he cannot get wet. (2) Decubitus ulcer of right foot, stage 2: CODE(S): L89.892 - Pressure ulcer of other site, stage 2 (3) Unspecified open wound of other part of head, initial encounter: CODE(S): S01.80XA - Unspecified open wound of other part of head, initial encounter PLAN: Wash with antibacterial soap and apply Xeroform dressing to wound base andleave open to air Patient will also be started on linezolid 600 mg p.o. twice daily for 14 days #28 called into his local pharmacy. 03/02/23 1326 <Electronically signed by Aliya Jones NP COMMERCIAL LOAN PROCESSOR-C> Cosigner Signature (if applicable): CC: ~ Signed [facility] Work Phone: 1(291) 651-185407-26-2023 Progress note Author Aliya Jones [facility] February 23, 2023 12:31pm Note Date/Time February 23, 2023 12:3 1pm [facility] [address] [place] [id number] Progress Note - Wound Care 02/23/23 1226 MR#: [id number] Acct: [id number] Name: JUAN DAVID HERNÁNDEZ Rep #:[id number] 1 : 1940 82 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 Jose Enrique Finney MD Status:RE G RCR Location: History of Present Illness Date of Service: 02/23/23 Chief Complaint: Follow-up on his left ear laceration from a tree branch and right lateral foot open wound from a blister that was over 1 month old. 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 He has poor hygiene habits. Had developed a blister from his shoe on the right lateral foot that is quite long about 4 cm x 1 cm wide. States it bled like everything because he is on Eliquis. Seeing bleeds stop to get the bleeding under control. Now has developed some slough and fibrous material in the center with I think over a venous vein. Patient has numbing and has no feeling in his lower leg but he does say his feetthrob. He does have many comorbidities such as A-fib diabetes does have a defibrillatorhigh cholesterol BPH Progress of Wound: Left ear is a small divot we will try using a nitro stick in it and mechanicallycauterizing it. Then leave it open to air Right lateral foot was positive for bacteria patient was started on Levaquin that he just started yesterday. He was approved for epi fix will start that next week. Measurements are slightly smaller will continue with the Fibracol. Subjective Subjective Patient approves of plan Objective Data Objective Data As stated above measurements are smaller tried a cauterizing the ear to see if that which is closed up it so small. And very hard to get any medication in there by himself. The right lateral foot is still open has an island of new skin. We will continue with the fibrocol until we can start the EpiFix is next week. Hygiene appears better this week Vital Signs: Vital Signs Temp Pulse Resp BP O2 Del Method 97.3 F L 78 18 124/70 H Room Air 02/23/23 10:03 02/23/23 10:03 02/23/23 10:03 02/23/23 10:03 02/16/23 09:04 Oxygen Delivery Method Room Air Lab / Micro Data Attestation: I reviewed the patient's lab results. Micro: Microbiology 02/16/23 10:00 Wound - Right Foot Gram Stain - Final 02/16/23 10:00 Wound - Right Foot Wound Culture - Final Staphylococcus epidermidis 02/16/23 10:00 Wound - Right Foot Anaerobic Culture - Final No anaerobic bacteria isolated. Physical Exam Const oriented x3 General Appearance: cooperative Exam Limitations: no limitations HEENT normocephalic Head and Scalp: normal to inspection Face and Sinus: normal facial exam Nose: external nose normal General Ear: hearing grossly impaired External Ear: external ears normal Mouth: oral and palatal mucosa normal Eyes PERRL General Eye: normal appearance of both eyes Neck full ROM General: normal visual inspection Resp normal respiratory effort Effort and Inspection: able to speak in complete sentences Auscultation: clear to auscultation bilaterally Cardio regular rate and regular rhythm Palpation: normal PMI Rate: regular rate Rhythm: regular rhythm GI Auscultation: normoactive bowel sounds Palpation: soft and no hepatosplenomegaly external exam normal Back/Spine Cervical Spine: cervical ROM normal Thoracic Spine / Upper Back: normal to inspection Lumbar Spine / Lower Back: normal to inspection Extremity normal to inspection General Extremity: normal exam except as noted Skin Wounds: wounds noted Wound Narrative: Right lateral foot open wound from blister Left Pe?a superficial laceration in ear from trees branches Neuro oriented x3 Psych Appearance: grossly normal Speech: normal speech Thought Content: normal thought content Judgement: judgement good Debridement Note Debridement Note Wound debrided: Right lateral foot diabetic foot ulcer Wound Grade/Stage: Stage II Type of Debridement: Excisional debridement Anesthesia Used: 5% Lidocaine Gel Depth: Down to and including healthy tissue Percentage of wound debrided: 100 Instrument Used: 5mm curette Tissue Removed: Fibrin Severity: Fat Layer Exposed Amount of bleeding with debridement: Mild Bleeding Controlled with: Compression and gauze Patient tolerated procedure: Patient tolerated procedure well Post-Debridement Measurements and Additional Note: Post-Debridement Measurements/Treatment - Nurse 1 - General Ulcer Assessment Start: 02/16/23 09:02 Freq: Status: Active Protocol: BRUNO.NOLA Activity Type Activity Date Activity User E-sign Co-sign Detail Recorded Client Recorded Date Recorded By Document 02/16/23 09:04 [facility] [id number] 02/16/23 09:23 [facility] Document 02/23/23 10:03 [id number] 02/23/23 10:10 02/16/23 02/23/23 09:04 10:03 - Today's Visit Information Type of service Initial Visit Follow-up Visit (Physician/CIVIL ENGINEERING DESIGNER ) Arrival Mode Ambulatory Ambulatory Transfer Assistance None None Patient Identification Verified (Name & Yes Yes ) Patient Requires Transmission-Based No No Precautions Vital Signs Temperature (97.8 F-99.1 F) 97.4 F L 97.3 F L Temperature Source Temporal Temporal Pulse Rate (60-100) 78 Pulse Location Monitor Monitor Respiratory Rate (12-18) 16 18 Respiratory rate source Observation Observation Oxygen Delivery Method Room Air Blood Pressure (90/60-120/80) 124/70 H Blood Pressure Mean (mm Hg) 88 Source Monitor Monitor Position Sitting Semi-Fowlers Blood Pressure Location Left Arm Left Arm History Since Last Visit- (Skip if this is Patient's initial visit) Have you changed medications since your No last visit? Any new allergies or adverse reactions No Had a fall/change in ADL's that may No increase risk of falls Signs or symptoms of abuse and/or No neglect since last visit Have you been in the hospital since your No last visit? Has dressing in place as prescribed Yes Has compression in place as prescribed No Has offloadiing in place as prescribed No Experienced any changes in pain level or No management Left Footwear Regular Shoe Right Footwear Regular Shoe Pain Scale: 0-10 Numeric Is Patient Pain Free? Yes Yes Lower Extremity Assessment/ Foot Assessment/ Toe Nail Assessment Right -Posterior Tibial Doppler Monophasic -Dorsalis Pedis Doppler Monophasic -Extremity Color Hyperpigmented -Hair Growth on Legs No -Hair Growth on Toes No -Temperature of Extremity Warm -Other Deformity No -Prior Foot Ulcer No -Charcot Joint No -Prior Amputation No -Thick Yes -Discolored Yes -Deformed No -Improper Length & Hygeine No Left -Posterior Tibial Doppler Monophasic -Dorsalis Pedis Doppler Monophasic -Extremity Color Hyperpigmented -Hair Growth on Legs No -Hair Growth on Toes No -Temperature of Extremity Warm -Other Deformity No -Prior Foot Ulcer No -Charcot Joint No -Prior Amputation No -Thick Yes -Discolored Yes -Deformed No -Improper Length & Hygeine No Neuropathy Assessment Feet - Top Side and Bottom <Entered> (a) Communication Assessment Preferred language [place] Copy Director Required No Able to Read Yes Able to Write Yes Communication Tools None Right Hearing Abillity Hard of Hearing Left Hearing Abillity Hard of Hearing Visual Assistive Devices Glasses Teaching Assessment Preferences Verbal,Written, Audio/Visual, Demonstration Barriers to Learning None Readiness To Learn Good Willingness to Engage in Self Management Med Activies Readiness to Engage in Self Management Med Activities Anxiety Level Calm Cooperation Cooperative Perception Coherent Interest in Health Problem Asks Questions Education Importance Acknowledges Need Does Patient Smoke tobacco or other No substances Smoking Status Never smoker Is Patient Diabetic Yes Functional Assessment Recent Decline in Ability to Perform Denies Any Declines Culture/Scientology/Educational Programming Director Cultural/Scientology Needs that may affect No Treatment Plan Teaching: Wound Center *Welcome to the Wound Center -Person Taught Patient -Teaching Method Discussion -Response to teaching Verbalize understanding Welcome to the Wound Care Center Montenegrin (a) 1 - - 2 - + 3 - + 4 - + 5 - + WC - Nurse 1 - General Ulcer Measurement Start: 02/16/23 09:02 Freq: Status: Active Protocol: Activity Type Activity Date Activity User E-sign Co-sign Detail Recorded Client Recorded Date Recorded By Document 02/16/23 09:04 [facility] [id number] 02/16/23 09:23 BM Document 02/23/23 10:03 RB [id number] 02/23/23 10:10 RB 02/16/23 02/23/23 09:04 10:03 Wound Center Nurse 1 #2- L EAR -Combined with other wound No No -Current Size (cm) - Length 0.8 0.1 -Current Size (cm) - Width 0.2 0.1 -Current Size (cm) - Depth 0.2 0.1 -Total Square Cm 0.16 0.01 -Date of Last Picture (Recall this 02/16/23 field) -Photo Taken Yes -Epithelialization None Present Medium 34-66% -Tunneling No No -Undermining/Tunneling No No -Circular Undermining No No -Exudate Amt Small Small -Exudate Type Sanguineous Serosanguineous -Wound Margin Distinct, Distinct, Outline Outline Attached Attached -Granulation Amt Large (67-100%) Medium (34-66%) -Granulation Quality Red Oxly -Slough/Fibrin Yes Yes -Necrosis Amt Small (1-33%) Medium (34-66%) -Necrotic Tissue Type Adherent Slough Adherent Slough -Structure Exposed N/A -Texture (Laya-wound Skin Appearance) Assessed, Assessed Scarring -Moisture (Laya-wound Skin Appearance) Assessed Assessed -Color (Laya-wound Skin Appearance) Assessed Assessed -Temperature (Laya-wound Skin No Abnormality No Abnormality Appearance) (Pt Warm) (Pt Warm) -Tenderness on Palpation (Laya-wound No No Skin Appearance) -Ulcer Cleansing Rinsed/ Wound Cleanser Irrigated with Saline -Foul Odor after Cleansing No No -Anesthetic Used 5% Lidocaine 5% Lidocaine Gel Gel #1- R LAT FOOT -Combined with other wound No No -Current Size (cm) - Length 4.4 0.1 -Current Size (cm) - Width 1.4 0.1 -Current Size (cm) - Depth 0.1 0.1 -Total Square Cm 6.16 0.01 -Date of Last Picture (Recall this 02/16/23 field) -Photo Taken Yes -Epithelialization None Present -Tunneling No No -Undermining/Tunneling No No -Circular Undermining No No -Exudate Amt Medium Medium -Exudate Type Serosanguineous Serosanguineous -Wound Margin Distinct, Distinct, Outline Outline Attached Attached -Granulation Amt Small (1-33%) Medium (34-66%) -Granulation Quality Oxly,Red Oxly -Slough/Fibrin Yes Yes -Necrosis Amt Large (67-100%) Medium (34-66%) -Necrotic Tissue Type Adherent Slough Adherent Slough -Structure Exposed N/A -Texture (Laya-wound Skin Appearance) Assessed, Assessed Scarring -Moisture (Laya-wound Skin Appearance) Assessed, Maceration Maceration -Color (Laya-wound Skin Appearance) Assessed, Assessed Erythema -Temperature (Laya-wound Skin No Abnormality No Abnormality Appearance) (Pt Warm) (Pt Warm) -Tenderness on Palpation (Laya-wound No No Skin Appearance) -Ulcer Cleansing Rinsed/ Wound Cleanser Irrigated with Saline -Foul Odor after Cleansing No No -Anesthetic Used 5% Lidocaine 5% Lidocaine Gel Gel Right Calf (cm) 34.4 Right Ankle (cm) 22.5 Left Calf (cm) 33.4 Left Ankle (cm) 21.4 WC - Nurse 2 - General Ulcer CM Notes Start: 02/16/23 09:02 Freq: Status: Active Protocol: Activity Type Activity Date Activity User E-sign Co-sign Detail Recorded Client Recorded Date Recorded By Document 02/16/23 09:48 MW [id number] 02/16/23 09:57 MW Document 02/23/23 10:14 MW [id number] 02/23/23 10:20 MW 02/16/23 02/23/23 09:48 10:14 Wound Center Nurse 2 #2- L EAR -Time 09:48 10:15 -Correct Patient Yes Yes -Correct Side, Site, Position Yes Yes -Correct Procedure Yes Yes -Procedure Performed Yes No -Type of Procedure Debridement -Clinical Debridement Subcutaneous -Tissue Removed Subcutaneous -Post Debridement (cm) - Length 1.5 -Post Debridement (cm) - Width 0.4 -Post Debridement (cm) - Depth 0.1 -Total Square (Post) (cm) 0.60 -Area of Debridement (cm) - Length 1.5 -Area of Debridement (cm) - Width 0.4 -Total Square (Area) (cm) 0.60 -Tunneling No -Undermining/Tunneling No -Circular Undermining No -Wound/Ulcer Outcome Not Healed -Ulcer Cleansing Rinsed/ Irrigated with Saline -Foul Odor after Cleansing No -Bioengineered Tissue No -Bleeding Controlled with Pressure Silver Nitrate, Chemical Cauterization ( $) -Treatment Response Procedure Tolerated Well -Offloading No -Debridement - Subq, 1st 20sq cm Yes #1- R LAT FOOT -Time 09:49 10:18 -Correct Patient Yes Yes -Correct Side, Site, Position Yes Yes -Correct Procedure Yes Yes -Procedure Performed Yes Yes -Type of Procedure Debridement Debridement -Clinical Debridement Subcutaneous Subcutaneous -Tissue Removed Subcutaneous Subcutaneous -Post Debridement (cm) - Length 4.5 4.4 -Post Debridement (cm) - Width 1.5 1.4 -Post Debridement (cm) - Depth 0.2 0.2 -Total Square (Post) (cm) 6.75 6.16 -Area of Debridement (cm) - Length 4.5 4.4 -Area of Debridement (cm) - Width 1.5 1.4 -Total Square (Area) (cm) 6.75 6.16 -Tunneling No No -Undermining/Tunneling No No -Circular Undermining No No -Wound/Ulcer Outcome Not Healed Not Healed -Ulcer Cleansing Rinsed/ Rinsed/ Irrigated with Irrigated with Saline Saline -Foul Odor after Cleansing No No -Bioengineered Tissue No No -Bleeding Controlled with Pressure Pressure -Treatment Response Procedure Procedure Tolerated Well Tolerated Well -Offloading No No -Debridement - Subq, 1st 20sq cm No Yes Pain Scale: 0-10 Numeric Is Patient Pain Free? Yes Yes WC - Nurse 3 - General Ulcer D/C NN Start: 02/16/23 09:02 Freq: Status: Active Protocol: Activity Type Activity Date Activity User E-sign Co-sign Detail Recorded Client Recorded Date Recorded By Document 02/16/23 10:11 [facility] [id number] 02/16/23 10:12 [facility] Document 02/23/23 10:32 MW [id number] 02/23/23 10:33 MW 02/16/23 02/23/23 10:11 10:32 Wound Care Center Nurse 3 #2- L EAR -Ulcer Cleansing Rinsed/ Irrigated with Saline -Foul Odor after Cleansing No -Primary Dressing Applied NonAdherent Contact Layer -Primary Dressing Covered/Secured with Dry Gauze, Secured with Tape -Other Covering open to air #1- R LAT FOOT -Ulcer Cleansing Rinsed/ Rinsed/ Irrigated with Irrigated with Saline Saline -Foul Odor after Cleansing No No -Negative Pressure Wound Therapy N/A -Primary Dressing Applied Fibracol Plus Fibracol Plus 4x4,Mepilex 4x4,Mepilex Border Border, NonAdherent Contact Layer -Primary Dressing Covered/Secured with Dry Gauze & Roll Gauze, Secured with Tape -Fibracol Plus 4x4 1 1 -Mepilex Border 2 2 Treatment Response Procedure Procedure Not Tolerated Well Tolerated Well Pain Scale: 0-10 Numeric Is Patient Pain Free? Yes Yes Teaching: Wound Center Dressing Your Wound -Person Taught Patient -Teaching Method Discussion, Demonstration -Response to teaching Verbalize understanding WC - Visit Discharge Discharge Condition Stable Stable Ambulatory Status Ambulatory Ambulatory Transportation Private Auto Accompanied by self Medication Reconcilliation completed & No provided to patient/care provider Clinical Summary of Care Provided Yes Assessment/Plan Assessment/Plan (1) Diabetic foot ulcer associated with type 2 diabetes mellitus: CODE(S): E11.621 - Type 2 diabetes mellitus with foot ulcer; L97.509 - Non- pressure chronic ulcer of other part of unspecified foot with unspecified severity QUALIFIERS: Diabetic foot ulcer location: midfoot Laterality: right Non-pressure ulcer stage: with fat layer exposed Qualified Code(s): E11.621 - Type 2 diabetes mellitus with foot ulcer; L97.412 - Non-pressure chronic ulcer of right heel and midfoot with fat layer exposed PLAN: Wash right foot with antibacterial soap and scrub toenails clean Apply fibrocol to wound base moistened covered with Adaptic and dry dressing Follow-up in 1 week Finish antibiotics Levaquin 500 mg 1 p.o. daily for 14 days (2) Decubitus ulcer of right foot, stage 2: CODE(S): L89.892 - Pressure ulcer of other site, stage 2 (3) Unspecified open wound of other part of head, initial encounter: CODE(S): S01.80XA - Unspecified open wound of other part of head, initial encounter PLAN: Cauterized left ear leave open to air 02/23/23 1231 <Electronically signed by Aliya Jones NP COMMERCIAL LOAN PROCESSOR-C> Cosigner Signature (if applicable): CC: ~ Signed [facility] Work Phone: 1(163) 713-303807-19-2023 History and physical note Author Aliya Jones [facility] February 16, 2023 11:26am Note Date/Time February 16, 2023 11:2 6am [facility] [address] [place] [address] H&P Exam - Wound Care 02/16/23 1016 MR#: [id number] Acct: [id number] Name: JUAN DAVID HERNÁNDEZ Rep #:[id number] : 1940 82 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 Jose Enrique Finney MD Status:RE G RCR Location: History of Present Illness Date of Service: 02/16/23 Chief Complaint: Follow-up on his left ear laceration from a tree branch and right lateral foot open wound from a blister that was over 1 month old. 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 He has poor hygiene habits. Had developed a blister from his shoe on the right lateral foot that is quite long about 4 cm x 1 cm wide. States it bled like everything because he is on Eliquis. Seeing bleeds stop to get the bleeding under control. Now has developed some slough and fibrous material in the center with I think over a venous vein. Patient has numbing and has no feeling in his lower leg but he does say his feetthrob. He does have many comorbidities such as A-fib diabetes does have a defibrillatorhigh cholesterol BPH [facility] Medical History (Updated 02/16/23 @ 11:22 by Aliya Jones NP, COMMERCIAL LOAN PROCESSOR-C) Acute blood loss anemia Atherosclerosis of [place] coronary artery of [place] heart without angina pectoris Essential (primary) hypertension Hypokalemia due to loss of potassium Ischemic cardiomyopathy Mixed hyperlipidemia Muscle cramps Nonrheumatic mitral valve insufficiency NSVT (nonsustained ventricular tachycardia) Paroxysmal atrial fibrillation Type 2 diabetes mellitus without complications Upper GI bleed Home Medications multivitamin with folic acid 400 mcg tablet 1 tab PO DAILY supplement 04/11/17 [History Last Taken Unknown] insulin lispro 100 unit/mL subcutaneous cartridge 10 unit subcut TID blood sugar08/17/18 [History Last Taken 11/12/18 07:00] fluticasone propionate 50 mcg/actuation nasal spray,suspension (Allergy Relief (fluticasone)) 1 spray intranasal DAILY 11/10/20 [History Last Taken Unknown] insulin detemir U-100 100 unit/mL (3 mL) subcutaneous pen 32 unit subcut QHS diabetes 11/10/20 [History Last Taken Unknown] tamsulosin 0.4 mg capsule 0.4 mg PO DAILY 11/10/20 [History Last Taken Unknown] zolpidem 5 mg tablet (Ambien) 5 mg PO QHS PRN insomnia 11/10/20 [History Last Taken Unknown] apixaban 5 mg tablet 5 mg PO BID #180 tabs 02/24/21 [Rx Last Taken Unknown] carvedilol 12.5 mg tablet 12.5 mg PO BID #180 tabs 02/24/21 [Rx Last Taken Unknown] isosorbide mononitrate 30 mg tablet,extended release 24 hr 30 mg PO DAILY #90 tabs 05/31/22 [Rx Last Taken Unknown] rosuvastatin 40 mg tablet 40 mg PO DAILY #30 tabs 06/23/22 [Rx Last Taken Unknown] furosemide 40 mg tablet 40 mg PO BID diuretic #180 tabs 12/31/22 [Rx Last Taken Unknown] calcium carbonate 600 mg-vitamin D3 10 mcg (400 unit) tablet (Calcium 600 + D(3)) 1 tab PO DAILY 02/16/23 [History Last Taken Unknown] cyclobenzaprine 5 mg tablet 5 mg PO TID PRN muscle spasm 02/16/23 [History Last Taken Unknown] mirtazapine 15 mg tablet 15 mg PO QHS 02/16/23 [History Last Taken Unknown] potassium chloride 20 mEq tablet,extended release(part/cryst) 20 meq PO BID supplement 02/16/23 [History Last Taken Unknown] Allergy/AdvReac Type Severity Reaction Status Date / Time atorvastatin Allergy Severe myalgias, Verified 09/24/22 14:37 tongue swelling captopril Allergy Severe tongue Verified 02/16/23 09:53 swelling rivaroxaban [From Xarelto] Allergy Severe tongue Verified 09/24/22 14:37 swelling glimepiride Allergy Intermediate mouth Verified 02/16/23 09:53 blisters levofloxacin [From Levaquin] Allergy Intermediate leg pain Verified 02/16/23 09:53 dapagliflozin [From Farxiga] Allergy Unknown Rash Verified 09/24/22 14:37 azithromycin [From Zithromax] AdvReac Severe blisters Verified 02/16/23 09:53 metolazone AdvReac Severe Rash/Itchin Verified 09/24/22 14:37 g pravastatin AdvReac Intermediate itching Verified 09/24/22 14:37 zithromax Allergy Intermediate lip Uncoded 02/16/23 09:53 blisters Surgical History History of electrophysiologic study History of left heart catheterization Hx of CABG (~11/14/09) Status post mitral valve annuloplasty Social History Smoking Status: Never smoker how long ago did patient quit smokin years ago alcohol intake: never substance use type: does not use caffeine: No what type of physical activity do you participate in: walking frequency: daily duration: 15-30 minutes/day seatbelt use: always do you feel safe at home: Yes ROS Constitutional Constitutional: Reports systems reviewed and no addt'l complaints, except as documented Eyes Eyes: Reports systems reviewed and no addt'l complaints, except as documented ENT HEENT: Reports systems reviewed and no addt'l complaints, except as documented Cardiovascular Cardiovascular: Reports systems reviewed and no addt'l complaints, except as documented Respiratory/Chest Respiratory/Chest: Reports systems reviewed and no addt'l complaints, except as documented Gastrointestinal Gastrointestinal: Reports systems reviewed and no addt'l complaints, except as documented Genitourinary Genitourinary: Reports systems reviewed and no addt'l complaints, except as documented Musculoskeletal Musculoskeletal: Reports systems reviewed and no addt'l complaints, except as documented Integumentary Integumentary: Reports wounds and other Details: 2 areas of superficial laceration in the left ear Pe?a. That just gets full of oozing blood and crustsover and old blood crusting. The other is rather large open wound on the right lateral foot. Concerning because the skin is thin there and he has no feeling so has some slough we will get cultures states he was on doxycycline for just a few days. Neurologic Neurologic: Reports systems reviewed and no addt'l complaints, except as documented Psychiatric Psychiatric: Reports systems reviewed and no addt'l complaints, except as documented Endocrine Endocrinology: Reports systems reviewed and no addt'l complaints, except as documented Hematologic/Lymphatic Hematologic/Lymphatic: Reports systems reviewed and no addt'l complaints, exceptas documented Allergic/Immunologic Allergic/Immunologic: Reports systems reviewed and no addt'l complaints, except as documented Vital Signs Vital Signs Vital Signs: 02/16/23 09:04 Temperature 97.4 F L Temperature Source Temporal Respiratory Rate 16 Blood Pressure Source Monitor Blood Pressure Position Sitting Blood Pressure Location Left Arm Oxygen Delivery Method Room Air Physical Exam Const oriented x3 General Appearance: cooperative Exam Limitations: no limitations HEENT normocephalic Head and Scalp: normal to inspection Face and Sinus: normal facial exam Nose: external nose normal General Ear: hearing grossly impaired External Ear: external ears normal Mouth: oral and palatal mucosa normal Eyes PERRL General Eye: normal appearance of both eyes Neck full ROM General: normal visual inspection Resp normal respiratory effort Effort and Inspection: able to speak in complete sentences Auscultation: clear to auscultation bilaterally Cardio regular rate and regular rhythm Palpation: normal PMI Rate: regular rate Rhythm: regular rhythm GI Auscultation: normoactive bowel sounds Palpation: soft and no hepatosplenomegaly external exam normal Back/Spine Cervical Spine: cervical ROM normal Thoracic Spine / Upper Back: normal to inspection Lumbar Spine / Lower Back: normal to inspection Extremity normal to inspection General Extremity: normal exam except as noted Skin Wounds: wounds noted Wound Narrative: Right lateral foot open wound from blister Left Pe?a superficial laceration in ear from trees branches Neuro oriented x3 Psych Appearance: grossly normal Speech: normal speech Thought Content: normal thought content Judgement: judgement good Debridement Note Debridement Note Wound debrided: Right lateral foot DFU started as a blister from his shoe Wound Grade/Stage: Stage II Type of Debridement: Excisional debridement Anesthesia Used: 5% Lidocaine Gel Depth: Down to and including healthy tissue and in the subcutaneous layer Percentage of wound debrided: 100 Instrument Used: 5mm curette Tissue Removed: Slough and fibrin Severity: Fat Layer Exposed Amount of bleeding with debridement: Mild Bleeding Controlled with: Compression and gauze Patient tolerated procedure: Patient tolerated procedure well Post-Debridement Measurements and Additional Note: Post-Debridement Measurements/Treatment WC - Nurse 1 - General Ulcer Assessment Start: 02/16/23 09:02 Freq: Status: Active Protocol: WC.LOWEXT Activity Type Activity Date Activity User E-sign Co-sign Detail Recorded Client Recorded Date Recorded By Document 02/16/23 09:04 [facility] [id number] 02/16/23 09:23 [facility] 02/16/23 09:04 - Today's Visit Information Type of service Initial Visit Arrival Mode Ambulatory Transfer Assistance None Patient Identification Verified (Name & Yes ) Patient Requires Transmission-Based No Precautions Vital Signs Temperature (97.8 F-99.1 F) 97.4 F L Temperature Source Temporal Pulse Location Monitor Respiratory Rate (12-18) 16 Respiratory rate source Observation Oxygen Delivery Method Room Air Source Monitor Position Sitting Blood Pressure Location Left Arm History Since Last Visit- (Skip if this is Patient's initial visit) Left Footwear Regular Shoe Right Footwear Regular Shoe Pain Scale: 0-10 Numeric Is Patient Pain Free? Yes Lower Extremity Assessment/ Foot Assessment/ Toe Nail Assessment Right -Posterior Tibial Doppler Monophasic -Dorsalis Pedis Doppler Monophasic -Extremity Color Hyperpigmented -Hair Growth on Legs No -Hair Growth on Toes No -Temperature of Extremity Warm -Other Deformity No -Prior Foot Ulcer No -Charcot Joint No -Prior Amputation No -Thick Yes -Discolored Yes -Deformed No -Improper Length & Hygeine No Left -Posterior Tibial Doppler Monophasic -Dorsalis Pedis Doppler Monophasic -Extremity Color Hyperpigmented -Hair Growth on Legs No -Hair Growth on Toes No -Temperature of Extremity Warm -Other Deformity No -Prior Foot Ulcer No -Charcot Joint No -Prior Amputation No -Thick Yes -Discolored Yes -Deformed No -Improper Length & Hygeine No Neuropathy Assessment Feet - Top Side and Bottom <Entered> (a) Communication Assessment Preferred language [place] Copy Director Required No Able to Read Yes Able to Write Yes Communication Tools None Right Hearing Abillity Hard of Hearing Left Hearing Abillity Hard of Hearing Visual Assistive Devices Glasses Teaching Assessment Preferences Verbal,Written, Audio/Visual, Demonstration Barriers to Learning None Readiness To Learn Good Willingness to Engage in Self Management Med Activies Readiness to Engage in Self Management Med Activities Anxiety Level Calm Cooperation Cooperative Perception Coherent Interest in Health Problem Asks Questions Education Importance Acknowledges Need Does Patient Smoke tobacco or other No substances Smoking Status Never smoker Is Patient Diabetic Yes Functional Assessment Recent Decline in Ability to Perform Denies Any Declines Culture/Scientology/Educational Programming Director Cultural/Scientology Needs that may affect No Treatment Plan Teaching: Wound Center *Welcome to the Wound Center -Person Taught Patient -Teaching Method Discussion -Response to teaching Verbalize understanding Welcome to the Wound Care Center Montenegrin (a) 1 - - 2 - + 3 - + 4 - + 5 - + WC - Nurse 1 - General Ulcer Measurement Start: 02/16/23 09:02 Freq: Status: Active Protocol: Activity Type Activity Date Activity User E-sign Co-sign Detail Recorded Client Recorded Date Recorded By Document 02/16/23 09:04 [facility] [id number] 02/16/23 09:23 [facility] 02/16/23 09:04 Wound Center Nurse 1 #2- L EAR -Combined with other wound No -Current Size (cm) - Length 0.8 -Current Size (cm) - Width 0.2 -Current Size (cm) - Depth 0.2 -Total Square Cm 0.16 -Date of Last Picture (Recall this 02/16/23 field) -Photo Taken Yes -Epithelialization None Present -Tunneling No -Undermining/Tunneling No -Circular Undermining No -Exudate Amt Small -Exudate Type Sanguineous -Wound Margin Distinct, Outline Attached -Granulation Amt Large (67-100%) -Granulation Quality Red -Slough/Fibrin Yes -Necrosis Amt Small (1-33%) -Necrotic Tissue Type Adherent Slough -Texture (Laya-wound Skin Appearance) Assessed, Scarring -Moisture (Laya-wound Skin Appearance) Assessed -Color (Laay-wound Skin Appearance) Assessed -Temperature (Laya-wound Skin No Abnormality Appearance) (Pt Warm) -Tenderness on Palpation (Laya-wound No Skin Appearance) -Ulcer Cleansing Rinsed/ Irrigated with Saline -Foul Odor after Cleansing No -Anesthetic Used 5% Lidocaine Gel #1- R LAT FOOT -Combined with other wound No -Current Size (cm) - Length 4.4 -Current Size (cm) - Width 1.4 -Current Size (cm) - Depth 0.1 -Total Square Cm 6.16 -Date of Last Picture (Recall this 02/16/23 field) -Photo Taken Yes -Epithelialization None Present -Tunneling No -Undermining/Tunneling No -Circular Undermining No -Exudate Amt Medium -Exudate Type Serosanguineous -Wound Margin Distinct, Outline Attached -Granulation Amt Small (1-33%) -Granulation Quality Oxly,Red -Slough/Fibrin Yes -Necrosis Amt Large (67-100%) -Necrotic Tissue Type Adherent Slough -Texture (Laya-wound Skin Appearance) Assessed, Scarring -Moisture (Laya-wound Skin Appearance) Assessed, Maceration -Color (Laya-wound Skin Appearance) Assessed, Erythema -Temperature (Laya-wound Skin No Abnormality Appearance) (Pt Warm) -Tenderness on Palpation (Laya-wound No Skin Appearance) -Ulcer Cleansing Rinsed/ Irrigated with Saline -Foul Odor after Cleansing No -Anesthetic Used 5% Lidocaine Gel Right Calf (cm) 34.4 Right Ankle (cm) 22.5 Left Calf (cm) 33.4 Left Ankle (cm) 21.4 WC - Nurse 2 - General Ulcer CM Notes Start: 02/16/23 09:02 Freq: Status: Active Protocol: Activity Type Activity Date Activity User E-sign Co-sign Detail Recorded Client Recorded Date Recorded By Document 02/16/23 09:48 [facility] [id number] 02/16/23 09:57 [facility] 02/16/23 09:48 Wound Center Nurse 2 #2- L EAR -Time 09:48 -Correct Patient Yes -Correct Side, Site, Position Yes -Correct Procedure Yes -Procedure Performed Yes -Type of Procedure Debridement -Clinical Debridement Subcutaneous -Tissue Removed Subcutaneous -Post Debridement (cm) - Length 1.5 -Post Debridement (cm) - Width 0.4 -Post Debridement (cm) - Depth 0.1 -Total Square (Post) (cm) 0.60 -Area of Debridement (cm) - Length 1.5 -Area of Debridement (cm) - Width 0.4 -Total Square (Area) (cm) 0.60 -Tunneling No -Undermining/Tunneling No -Circular Undermining No -Wound/Ulcer Outcome Not Healed -Ulcer Cleansing Rinsed/ Irrigated with Saline -Foul Odor after Cleansing No -Bioengineered Tissue No -Bleeding Controlled with Pressure -Treatment Response Procedure Tolerated Well -Offloading No -Debridement - Subq, 1st 20sq cm Yes #1- R LAT FOOT -Time 09:49 -Correct Patient Yes -Correct Side, Site, Position Yes -Correct Procedure Yes -Procedure Performed Yes -Type of Procedure Debridement -Clinical Debridement Subcutaneous -Tissue Removed Subcutaneous -Post Debridement (cm) - Length 4.5 -Post Debridement (cm) - Width 1.5 -Post Debridement (cm) - Depth 0.2 -Total Square (Post) (cm) 6.75 -Area of Debridement (cm) - Length 4.5 -Area of Debridement (cm) - Width 1.5 -Total Square (Area) (cm) 6.75 -Tunneling No -Undermining/Tunneling No -Circular Undermining No -Wound/Ulcer Outcome Not Healed -Ulcer Cleansing Rinsed/ Irrigated with Saline -Foul Odor after Cleansing No -Bioengineered Tissue No -Bleeding Controlled with Pressure -Treatment Response Procedure Tolerated Well -Offloading No -Debridement - Subq, 1st 20sq cm No Pain Scale: 0-10 Numeric Is Patient Pain Free? Yes - Nurse 3 - General Ulcer D/C NN Start: 02/16/23 09:02 Freq: Status: Active Protocol: Activity Type Activity Date Activity User E-sign Co-sign Detail Recorded Client Recorded Date Recorded By Document 02/16/23 10:11 [facility] [id number] 02/16/23 10:12 [facility] 02/16/23 10:11 Wound Care Center Nurse 3 #2- L EAR -Ulcer Cleansing Rinsed/ Irrigated with Saline -Foul Odor after Cleansing No -Primary Dressing Applied NonAdherent Contact Layer -Primary Dressing Covered/Secured with Dry Gauze, Secured with Tape #1- R LAT FOOT -Ulcer Cleansing Rinsed/ Irrigated with Saline -Foul Odor after Cleansing No -Primary Dressing Applied Fibracol Plus 4x4,Mepilex Border -Fibracol Plus 4x4 1 -Mepilex Border 2 Treatment Response Procedure Tolerated Well Pain Scale: 0-10 Numeric Is Patient Pain Free? Yes - Visit Discharge Discharge Condition Stable Ambulatory Status Ambulatory Transportation Private Auto Additional Wound Wound debrided: Left Pe?a superficial traumatic wound Type of Debridement: Excisional debridement Anesthesia Used: 5% Lidocaine Gel Depth: Down to and including healthy tissue Percentage of wound debrided: 100 Instrument Used: 3mm curette Tissue Removed: Fibrin Severity: Limited To Skin Breakdown Amount of bleeding with debridement: Mild Bleeding Controlled with: Compression and gauze Patient tolerated procedure: Patient tolerated procedure well Assessment/Plan Assessment/Plan (1) Diabetic foot ulcer associated with type 2 diabetes mellitus: CODE(S): E11.621 - Type 2 diabetes mellitus with foot ulcer; L97.509 - Non- pressure chronic ulcer of other part of unspecified foot with unspecified severity QUALIFIERS: Diabetic foot ulcer location: midfoot Laterality: right Non-pressure ulcer stage: with fat layer exposed Qualified Code(s): E11.621 - Type 2 diabetes mellitus with foot ulcer; L97.412 - Non-pressure chronic ulcer of right heel and midfoot with fat layer exposed PLAN: Wash right foot with antibacterial soap and scrub toenails clean Apply fibrocol to wound base moistened covered with Adaptic and dry dressing Follow-up in 1 week (2) Decubitus ulcer of right foot, stage 2: CODE(S): L89.892 - Pressure ulcer of other site, stage 2 (3) Unspecified open wound of other part of head, initial encounter: CODE(S): S01.80XA - Unspecified open wound of other part of head, initial encounter PLAN: Wash left ear with antibacterial soap and apply Xeroform to wound and cover with Adaptic and leave open to air 02/16/23 1126 <Electronically signed by Ailya Jones NP COMMERCIAL LOAN PROCESSOR-C> Cosigner Signature (if applicable): CC: ~ Signed [facility] Work Phone: 1(792) 294-456106-24-2023 NoteHNO ID: [id number] Author: YANIRA Porras Service: ? Author Type: Physician Manager Planning Type: Progress Notes Filed: 01/22/2023 3:24 PM Note Text: This note was created using Follozeriter. Subjective Juan David Hernández is a 82 year old male. HPI 82-year-old male presents for abrasion of left external ear. Patient states that yesterday he a tree branch fell and hit him in the left ear. He was seen by his primary care doctor and glue was applied. He states that is continued to see blood. He is on Eliquis. He did not lose consciousness. He is not having any significant pain. No drainage from the ear. It is bruised from yesterday. No other complaints. No past medical history on file. No past surgical history on file. ALLERGIES Atorvastatin, Azithromycin, Capitrol [Chloroxine], and Metolazone MEDICATIONS fluticasone (FLONASE) 50 mcg/actuation nasal spray Use in the nose. ELIQUIS 5 mg tab(s) Take 5 mg by mouth twice daily. aspirin 325 mg tablet once daily. TRUE METRIX GLUCOSE TEST STRIP test strip USE 1 (ONE) STRIP TO TEST BLOOD SUGAR THREE TIMES DAILY carvedilol (COREG) 12.5 mg tablet Take 12.5 mg by mouth twice daily. furosemide (LASIX) 20 mg tablet Take by mouth. glipiZIDE (GLUCOTROL XL) 10mg 24 hr tablet Take 10 mg by mouth. LEVEMIR FLEXPEN 100 unit/mL (3 mL) injection pen INJECT 30 UNITS SUBCUTANEOUSLY DAILY HUMALOG U-100 INSULIN 100 unit/mL injection INJECT 10 unit three times a day with meals isosorbide mononitrate ER (IMDUR) 30 mg 24 hr tablet Take 30 mg by mouth once daily. potassium chloride ER (KLOR-CON) 20 mEq tablet TAKE 1.5 TABLETS BY MOUTH TWICE DAILY for supplement rosuvastatin (CRESTOR) 40 mg tablet Take 40 mg by mouth once daily. tamsulosin (FLOMAX) 0.4 mg Take 0.4 mg by mouth once daily. No family history on file. Social History Tobacco Use Smoking status: Never Smokeless tobacco: Never Review of Systems Constitutional: Negative for chills and fever. HENT: Negative for congestion and sore throat. Respiratory: Negative for cough and shortness of breath. Gastrointestinal: Negative for diarrhea and vomiting. Skin: Positive for wound. Objective BP 102/60 Pulse 68 Resp 16 Wt 67.6 kg (149 lb) SpO2 98% Physical Exam Vitals and nursing note reviewed. Constitutional: General: He is not in acute distress. Appearance: Normal appearance. He is not toxic-appearing. HENT: Right Ear: Tympanic membrane and ear canal normal. Left Ear: Tympanic membrane and ear canal normal. Laceration present. Ears: Comments: Abrasion noted to left external ear with minimal oozing of blood. External ear is bruised as well. Canal normal. TM normal. It appears there is some dried glue around the area from PCP gluing it yesterday. Nose: Nose normal. Mouth/Throat: Mouth: Mucous membranes are moist. Eyes: Conjunctiva/sclera: Conjunctivae normal. Cardiovascular: Rate and Rhythm: Normal rate and regular rhythm. Pulmonary: Effort: Pulmonary effort is normal. Breath sounds: Normal breath sounds. Skin: General: Skin is warm and dry. Neurological: Mental Status: He is alert. Assessment and Plan ASSESSMENT/PLAN: 1. Abrasion of left ear, initial encounter - ICD9: 910.0, ICD10: S00.412A -Small amount of oozing blood from left external ear. -Wound cleansed with sterile water. -Surgicel applied. Bleeding controlled. -Gauze applied. -Patient has follow-up with PCP on Tuesday for wound recheck. Advised to keep this appointment. No signs of infection on exam. Diagnosis and treatment plan were discussed and questions were answered to the patient's satisfaction. Pt acknowledged understanding of concepts and follow up plan. Specific signs and symptoms that would indicate the need for higher level of care were discussed in detail warranting prompt ER evaluation. Gurinder Connell [facility]06-24-2023 History of Present illness Narrative* YANIRA Porras - 01/22/2023 3:20 PM EDT Images from the original note were not included. This note was created using Follozeriter. Subjective Juan David Hernández is a 82 year old male. HPI 82-year-old male presents for abrasion of left external ear. Patient states that yesterday he atree branch fell and hit him in the left ear. He was seen by his primary care doctor and glue was applied. He states that is continued to see blood. He is on Eliquis. He did not lose consciousness. He is not having any significant pain. No drainage from the ear. It is bruised from yesterday. No other complaints. No past medical history on file. No past surgical history on file. ALLERGIES Atorvastatin, Azithromycin, Capitrol [Chloroxine], and Metolazone MEDICATIONS fluticasone (FLONASE) 50 mcg/actuation nasal spray Use in the nose. ELIQUIS 5 mg tab(s) Take 5 mg by mouth twice daily. aspirin 325 mg tablet once daily. TRUE METRIX GLUCOSE TEST STRIP test strip USE 1 (ONE) STRIP TO TEST BLOOD SUGAR THREE TIMES DAILY carvedilol (COREG) 12.5 mg tablet Take 12.5 mg by mouth twice daily. furosemide (LASIX) 20 mg tablet Take by mouth. glipiZIDE (GLUCOTROL XL) 10mg 24 hr tablet Take 10 mg by mouth. LEVEMIR FLEXPEN 100 unit/mL (3 mL) injection pen INJECT 30 UNITS SUBCUTANEOUSLY DAILY HUMALOG U-100 INSULIN 100 unit/mL injection INJECT 10 unit three times a day with meals isosorbide mononitrate ER (IMDUR) 30 mg 24 hr tablet Take 30 mg by mouth once daily. potassium chloride ER (KLOR-CON) 20 mEq tablet TAKE 1.5 TABLETS BY MOUTH TWICE DAILY for supplement rosuvastatin (CRESTOR) 40 mg tablet Take 40 mg by mouth once daily. tamsulosin (FLOMAX) 0.4 mg Take 0.4 mg by mouth once daily. No family history on file. Social History Tobacco Use Smoking status: Never Smokeless tobacco: Never Review of Systems Constitutional: Negative for chills and fever. HENT: Negative for congestion and sore throat. Respiratory: Negative for cough and shortness of breath. Gastrointestinal: Negative for diarrhea and vomiting. Skin: Positive for wound. Objective BP 102/60 Pulse 68 Resp 16 Wt 67.6 kg (149 lb) SpO2 98% Physical Exam Vitals and nursing note reviewed. Constitutional: General: He is not in acute distress. Appearance: Normal appearance. He is not toxic-appearing. HENT: Right Ear: Tympanic membrane and ear canal normal. Left Ear: Tympanic membrane and ear canal normal. Laceration present. Ears: Comments: Abrasion noted to left external ear with minimal oozing of blood. External ear is bruisedas well. Canal normal. TM normal. It appears there is some dried glue around the area from PCP gluing it yesterday. Nose: Nose normal. Mouth/Throat: Mouth: Mucous membranes are moist. Eyes: Conjunctiva/sclera: Conjunctivae normal. Cardiovascular: Rate and Rhythm: Normal rate and regular rhythm. Pulmonary: Effort: Pulmonary effort is normal. Breath sounds: Normal breath sounds. Skin: General: Skin is warm and dry. Neurological: Mental Status: He is alert. Assessment and Plan ASSESSMENT/PLAN: 1. Abrasion of left ear, initial encounter - ICD9: 910.0, ICD10: S00.412A -Small amount of oozing blood from left external ear. -Wound cleansed with sterile water. -Surgicel applied. Bleeding controlled. -Gauze applied. -Patient has follow-up with PCP on Tuesday for wound recheck. Advised to keep this appointment. No signs of infection on exam. Diagnosis and treatment plan were discussed and questions were answered to the patient's satisfaction. Pt acknowledged understanding of concepts and follow up plan. Specific signs and symptoms that would indicate the need for higher level of care were discussed in detail warranting prompt ER evaluation. YANIRA Porras documented in this encounter[facility] note Author Lance Oconnor [facility] Note Date/Time January 09, 2025 12:[address] [facility] Medical Records Department [address] [place] [address] Pre-Anesthesia Evaluation 01/09/25 1240 MR#: [id number] Acct: [id number] Name: JUAN DAVID HERNÁNDEZ Rep #:[id number] 1 : 1940 84 From: Lance Oconnor MD PCP: Dr. Jose Enrique Finney MD Status:[facility] Race: C Location: [place] [address] ASA Classification* ASA Classification ASA Classification: 3 Assessment & Plan Anesthesia* Anesthesia Assessment Anesthesia Assessment: Discussed sedation and/or anesthesia options, risks, benefits, and alternatives with patient/parents/legal guardian/POA. Questions invited. The patient/parents/legal guardian/POA seems to understand and agrees to proceedwith anesthesia plan. Reviewed the physical assessment, medical history, allergy history and patient home medications list prior to surgery/procedure/anesthetic and documented any changes. Performed airway and anesthesia risk assessments. Anesthesia Type Anesthesia Type: MAC Anesthesia Focused Assessment* Airway Assessment Mouth opens: >3 cm Mallampati Score: II Labs Anesthesia Preop lab: CBC WBC 5.5 K/mm3 (4.4-11.0) 12/06/24 15:12/06/24 RBC 3.44 M/mm3 (4.6-6.2) L 12/06/24 15:12/06/24 Hgb 10.6 g/dL (13.0-16.5) L 12/06/24 15:04 5 Hct 33.0 % (40-54) L 12/06/24 15:04 12/06/24 Plt Count 181 K/mm3 (150-450) 12/06/24 15:04 12/06/24 CHEMISTRY Potassium 4.7 mmol/L (3.3-5.1) 12/06/24 14:51 12/06/24 Sodium 136 mmol/L (133-145) 12/06/24 14:51 12/06/24 Magnesium 2.1 mg/dL (1.5-2.2) 12/06/24 14:51 12/06/24 Phosphorus 2.9 mg/dL (2.7-4.5) 10/12/24 03:06 10/12/24 BUN 21 mg/dL (4-19) H 12/06/24 14:51 12/06/24 Creatinine 1.50 mg/dL (0.70-1.20) H 12/06/24 14:51 Glucose 324 mg/dL (70-99) H 12/06/24 14:51 12/06/24 POC Glucose 350 mg/dL (74-106) H 10/13/24 11:18 10/13/24 TSH 1.950 uIU/mL (0.300-4.200) 10/12/24 03:06 09/29 11/23 COAG PT 24.5 SECONDS (11.7-14.9) H 10/11/24 21:09 09/29 10/23 Pre-Assessment Diagnosis/Proposed Procedure Planned Operative Procedure(s): EGD Anesthesia History 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 gi bleed 01/04/25 11:06 Any Problems With Anesthesia No 01/04/25 11:06 Cholinesterase deficiency No 01/04/25 11:06 You/Your Family Experience No 01/04/25 11:06 fever (hyperthermia) with Relationship Recent Exposure to Contagious No 10/12/24 14:53 Disease Does patient have nerve No 01/04/25 11:06 stimulator Patient instructed to have device shut off --Does patient have Pacemaker or ICD? When Was Last Pacemaker Check 09/25/24 10/12/24 14:53 QUESTION #4 FULL TEXT: You/Your Family Experience fever (hyperthermia) with Anesthesia Last Oral Intake Last Oral intake: Last Oral Intake NPO since Meds taken in AM with sips of water? 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 Female No 01/04/25 11:06 HX of Motion Sickness No 01/04/25 11:06 HX of N/V After Surgery No 01/04/25 11:06 Non-Smoker Yes 01/04/25 11:06 Duration of Surgery greater No 01/04/25 11:06 than 60 minutes Number of Risk Factors 1 01/04/25 11:06 PONV Score Low Risk 01/04/25 11:06 Height & Weight Height & Weight: Anesthesia: Height & Weight Height 5 ft 7 in 11/01/24 10:42 Respiratory Assessment Respiratory Assessment - dye boarding machine operator: Respiratory Tract Infection Hx - dye boarding machine operator Hx Respiratory Tract Infection No 01/04/25 11:06 STOP Sleep Apnea STOP Sleep Apnea - dye boarding machine operator: STOP Sleep Apnea - dye boarding machine operator Hx Hypertension No 01/04/25 11:06 Hx Sleep Apnea No 01/04/25 11:06 CPAP BIPAP No 01/04/25 11:06 Do you snore loudly (louder No 01/04/25 11:06 than talking or can be heard Do you often feel tired/ Yes 01/04/25 11:06 fatigued/ sleepy during daytime? Has anyone observed you stop No 01/04/25 11:06 breathing during sleep? STOP Results Negative 01/04/25 11:06 QUESTION #5 FULL TEXT : Do you snore loudly (louder than talking or can be heard through closed doors)? 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 Specify any problems Hx of Preganancy in last 3 N/A 01/04/25 11:06 Months Nurse Filling Out Transfusion DSCHRIBER 01/04/25 11:06 & Questions: Date: 01/04/25 01/04/25 11:06 Time: 11:08 01/04/25 11:06 Patient unable to answer at this time (ie. confused, unrespo /Reproduction History /Reproductive History - dye boarding machine operator: /Reproductive Hx- dye boarding machine operator Hx Now No 01/04/25 11:06 Gestational Age (in weeks): EDC: Hx Hx Para Hx Section SAB No 01/04/25 11:06 Active Medications Active Medications: Current Medications Generic Name Dose Route Start Last Admin Trade Name Freq PRN Reason Stop Dose Admin Lactated Ringer's 1,000 mls @ 15 mls/hr 01/09/25 12:45 IV .Q48H JUDI PFSH Medical History Tinnitus Wears glasses Wears dentures Insulin dependent diabetes mellitus Arthritis High cholesterol Back pain Difficulty swallowing History of GI bleed Former smoker Shortness of breath on exertion Leg cramps History of pain when walking History of edema History of CHF (congestive heart failure) History of heart attack History of echocardiogram History of stress test Cardiology follow-up encounter Hx of fracture of leg Neuropathy Declining functional status LISA (acute kidney injury) Acute hypokalemia Mixed hyperlipidemia Paroxysmal atrial fibrillation Hypokalemia due to loss of potassium Upper GI bleed NSVT (nonsustained ventricular tachycardia) Nonrheumatic mitral valve insufficiency Atherosclerosis of [place] coronary artery of [place] heart without angina pectoris Ischemic cardiomyopathy Essential (primary) hypertension Type 2 diabetes mellitus without complications Home Medications ?Medication ?Instructions ?Recorded ?Last Taken ?Type multivitamin with folic acid 400 1 tab PO DAILY supple ment 04/11/17 Unknown History mcg tablet insulin detemir U-100 100 unit/mL 32 unit subcut QHS d iabetes 11/10/20 Unknown History (3 mL) subcutaneous pen apixaban 5 mg tablet 5 mg PO BID Blood thinner #1 80 tabs 02/24/21 Unknown Rx carvedilol 12.5 mg tablet 12.5 mg PO BID Heart rate/bl ood 02/24/21 Unknown Rx pressure #180 tabs nitroglycerin 0.4 mg sublingual 0.4 mg sublingual Q5-1 5M PRN chest 03/22/23 Unknown Rx tablet (Nitrostat) pain #25 tabs isosorbide mononitrate 30 mg 30 mg PO DAILY heart #90 tabs 06/18/24 Unknown Rx tablet,extended release 24 hr rosuvastatin 40 mg tablet 40 mg PO DAILY cholesterol # 90 tabs 06/18/24 Unknown Rx blood sugar diagnostic (True 10/11/24 Unknown History Metrix Glucose Test Strip) ascorbate calcium (vitamin C) 500 500 mg PO QDAY #90 t abs 10/17/24 Unknown Rx mg tablet pantoprazole 40 mg tablet,delayed 40 mg PO BID #180 ta bs 10/17/24 Unknown Rx release insulin lispro 100 unit/mL 10 unit subcut TID 11/01/24 Unknown History subcutaneous pen (Humalog KwikPen (U-100) Insulin) tamsulosin 0.4 mg capsule 0.4 mg PO QHS 11/01/24 Unkno wn History zolpidem 5 mg tablet 5 mg PO QHS PRN sleep Unknown History furosemide 40 mg tablet 40 mg PO BID diuretic #180 t abs 12/05/24 Unknown Rx acetaminophen 500 mg tablet 500 mg PO Q6H PRN back rusty n #60 12/20/24 Unknown Rx (Tylenol Extra Strength) tabs ferrous sulfate 325 mg (65 mg 325 mg PO QODAY 01/04/25 Unknown History iron) tablet potassium chloride 20 mEq 20 meq PO BID 01/04/25 Unkno wn History tablet,extended release(part/cryst) Allergy/AdvReac Type Severity Reaction Status Date / Time atorvastatin Allergy Severe myalgias, Verified 01/04/25 11:02 tongue swelling captopril Allergy Severe tongue Verified 01/04/25 11:02 swelling rivaroxaban (From Xarelto) Allergy Severe tongue Verified 01/04/25 11:02 swelling glimepiride Allergy Intermediate mouth Verified 01/04/25 11:02 blisters levofloxacin (From Levaquin) Allergy Intermediate leg pain Verified 01/04/25 11:02 dapagliflozin (From Farxiga) Allergy Unknown Rash Verified 01/04/25 11:02 azithromycin (From Zithromax) AdvReac Severe blisters Verified 01/04/25 11:02 metolazone AdvReac Severe Rash/Itchin Verified 01/04/25 11:02 g pravastatin AdvReac Intermediate itching Verified 01/04/25 11:02 Surgical History History of implantable cardiac defibrillator (ICD) Hx of arthroscopic knee surgery Hx of right cataract extraction Hx of left cataract extraction History of esophagogastroduodenoscopy (EGD) History of right-sided carotid endarterectomy History of electrophysiologic study History of left heart catheterization Status post mitral valve annuloplasty Hx of CABG (~11/14/09) Social History household members: none Smoking Status: Former smoker how long ago did patient quit smokin years ago alcohol intake: never substance use type: does not use caffeine: No what type of physical activity do you participate in: walking frequency: daily duration: 15-30 minutes/day seatbelt use: always do you feel safe at home: Yes Review of Systems (Anesthesia) ROS Narrative System reviewed and no additional complaints, except as documented. 01/09/25 1241 <Electronically signed by Lance Oconnor MD > Date _ Lance Oconnor MD Cosign Signature: Date CC: ~ Signed [facility] Work Phone: Consult note Author Irving Jovel [facility] Note Date/Time January 09, 2025 1:[address] [facility] Medical Records Department [address] [address] Anesthesia Postop Eval I 01/09/25 1345 MR#: [id number] Acct: [id number] Name: JUAN DAVID HERNÁNDEZ Rep #:[id number] : 1940 84 From: Irving Jovel PCP: Dr. Jose Enrique Finney MD Status:MORRIS HUSTON Y Race: C Location: [place] [address] Anesthesia: Postop Eval I Current Vital Signs Temperature: 97.9 F Pulse Rate: 60 Blood Pressure: 114/69 Respiratory Rate: 16 Pulse Ox: 98 Oxygen Delivery Method: Room Air Assessment Airway patent: Yes Spontaneous unlabored respirations: Yes Mental status: Asleep nausea: No Vomiting: No Anesthesia Complication: No Fluid Hydration Crystalloid volume administer (ml): 400 Total IV fluid infused: 400 Progress Note Anesthesia document: Postop Eval 1 completed: Yes 01/09/25 1346 <Electronically signed by Irving Jovel > Date _ Irving Jovel Cosigner Signature: Date CC: ~ Signed [facility] Work Phone: Consult note Author Lance oz [facility] Note Date/Time January 09, 2025 1:[address] [facility] Medical Records Department [address] [place] [address] Anesthesia Postop Eval II 01/09/25 1356 MR#: [id number] Acct: [id number] Name: BETTYJUAN DAVID Mosher Rep #:[id number] : 1940 84 From: Lance Ocononr MD PCP: Dr. Jose Enrique Finney MD Status:MORRIS HUSTON Y Race: C Location: [place] [address] Anesthesia Postop Eval I Sum Postop Eval Completion status Anesthesia document: Postop Eval 1 completed: Yes Anesthesia Postop Eval I Summary Anesthesia Postop Eval I Summary: Anesthesia Postop Eval I: Assessment Summary Airway patent Yes 01/09/25 13:46 [email or web address] Spontaneous unlabored Yes 01/09/25 13:46 [email or web address] respirations Mental status Asleep 01/09/25 13:46 [email or web address] nausea No 01/09/25 13:46 [email or web address] Vomiting No 01/09/25 13:46 [email or web address] Anesthesia Postop Eval I: Fluid Summary Crystalloid volume administer 400 01/09/25 13:46 [email or web address] (ml) Colloids volume administered ( ml) Blood Product volume administered (ml) Total IV fluid infused 400 01/09/25 13:46 [email or web address] Anesthesia Postop Eval I: Summary Notes Anesthesia Complication No 01/09/25 13:46 [email or web address] Anesthesia Complication Comment: Post-operative progress note Anesthesia: Postop Eval II Evaluation Mental status: Awake Pain Level: 0 nausea: No Vomiting: No 01/09/25 8776 <Electronically signed by Lance Oconnor MD > Date _ Lance Oconnor MD Cosign Signature: Date CC: ~ Signed [facility] Work Phone: Discharge summary Author Bernabe [facility] Note Date/Time October 08, 2024 4:3 2pm [facility] Medical Records Department [address] [place] [address] Instructions for Home/Discharge Instructions 10/08/24 1550 MR#: [id number] Acct: [id number] Name: JUAN DAVID HERNÁNDEZ Rep #:[id number] : 1940 84 From: Bernabe Casey DO PCP: Dr. Jose Enrique Finney MD Status:AD M [place] Discharge Instructions Diet Discharge Diet: 1800 Calorie Control Diet DC O2, CPAP, BIPAP needs Home O2 Discharge instructions: No Dressing / Incision Discharge Activity: Return to Normal Activity Weight Bearing Status: Full weight bearing Follow Up Care Test Results: Test results from this visit will be discussed in further detail at your follow- up appointment, if applicable. Discharge Plan Admission Admit Date/Time: 10/07/24 23:21 Attending Provider: Bernabe Casey Primary Care Provider: Jose Enrique Finney Consulting Providers: Kira Lerma Discharge Orders/Prescriptions Prescriptions: New potassium chloride 20 mEq Tablet,Er Particles/Crystals 40 meq PO BID Qty: 120 0RF Continued tamsulosin 0.4 mg capsule 0.4 mg PO DAILY zolpidem [Ambien] 5 mg tablet 5 mg PO QHS PRN (Reason: insomnia) nitroglycerin [Nitrostat] 0.4 mg tablet, sublingual 0.4 mg sublingual Q5-15M PRN (Reason: chest pain) Qty: 25 3RF Rx Instructions: do not exceed 3 doses per episode multivitamin with folic acid 1 TABLET tablet 1 tab PO DAILY insulin detemir U-100 100 unit/mL (3 mL) insulin pen 32 unit SC QHS insulin lispro 100 UNIT/ML cartridge 10 unit SC TID apixaban 5 mg tablet 5 mg PO BID Qty: 180 3RF carvedilol 12.5 mg tablet 12.5 mg PO BID Qty: 180 3RF rosuvastatin 40 mg tablet 40 mg PO DAILY Qty: 90 3RF isosorbide mononitrate 30 mg tablet extended release 24 hr 30 mg PO DAILY Qty: 90 3RF furosemide 40 mg tablet 40 mg PO .COMPLEX Qty: 180 3RF Rx Instructions: 40 mg orally decrease to once daily: May need to increase back to twice daily if SOB, swelling, etc.; Discontinued cyclobenzaprine 5 mg tablet 5 mg PO TID PRN (Reason: muscle spasm) mirtazapine 15 mg tablet 15 mg PO QHS potassium chloride 20 mEq tablet,ER particles/crystals 20 meq PO BID Qty: 180 3RF Referrals / Follow Up: Jose Enrique Finney MD [Primary Care Provider] - Within 1 Week (get your BMP repeated(lab work)) Disposition Disposition (needs filled in before D/C Order can be placed): Home, Self Care 10/08/24 1632<Electronically signed by Bernabe Casey DO>Bernabe Casey DO CC: Dr. Kira Lerma MD; Dr. Jose Enrique Finney MD ~ Signed [facility] Work Phone: Discharge summary Author García Cabezas [facility] Note Date/Time October 13, 2024 1:2 2pm [facility] Medical Records Department [address] [place] [address] Discharge Summary 10/13/24 1311 MR#: [id number] Acct: [id number] Name: JUAN DAVID HERNÁNDEZ Rep #:[id number] : 1940 84 From: García sharpe MD PCP: Dr. Jose Enrique Finney MD Status:AD M IN Location: [facility] [id number] Providers Date of Admission: 10/11/24 Primary Care Physician: Dr. Jose Enrique Finney MD Consultations 10/12/24 03:41 Consult: Gastroenterology Routine Consulting Provider: [facility] Reason for Consult: UGIB with Melanotic Stools and ABLA EMERGENT Consult: No MD Notified: Yes Date Notified: 10/12/24 Time Notified: 06:55 Method of Notification: Text Reason For Visit: UGIB WITH MELENA & SEVERE HYPOTENSION WITH LISA Diagnosis Discharge Diagnosis (1) Melanotic stools: Status: Acute Code(s): K92.1 - Melena (2) LISA (acute kidney injury): Status: Acute Code(s): N17.9 - Acute kidney failure, unspecified Medications at Discharge Home Medications multivitamin with folic acid 400 mcg tablet 1 tab PO DAILY supplement 04/11/17 insulin lispro 100 unit/mL subcutaneous cartridge 10 unit subcut TID blood sugar03/17/18 insulin detemir U-100 100 unit/mL (3 mL) subcutaneous pen 32 unit subcut QHS diabetes 11/10/20 tamsulosin 0.4 mg capsule 0.4 mg PO DAILY prostate 11/10/20 zolpidem 5 mg tablet (Ambien) 5 mg PO QHS PRN insomnia 11/10/20 apixaban 5 mg tablet 5 mg PO BID Blood thinner #180 tabs 02/24/21 Held on 10/13/24. Instructions: Resume on 10/15/24. carvedilol 12.5 mg tablet 12.5 mg PO BID Heart rate/blood pressure #180 tabs 02/24/21 nitroglycerin 0.4 mg sublingual tablet (Nitrostat) 0.4 mg sublingual Q5-15M PRN chest pain #25 tabs 03/22/23 isosorbide mononitrate 30 mg tablet,extended release 24 hr 30 mg PO DAILY heart #90 tabs 06/18/24 rosuvastatin 40 mg tablet 40 mg PO DAILY cholesterol #90 tabs 06/18/24 furosemide 40 mg tablet 40 mg PO .COMPLEX diuretic #180 tabs 08/03/24 Held on 10/13/24. Instructions: Resume on 10/14/24. potassium chloride 20 mEq tablet,extended release(part/cryst) 40 meq (2 x 20 mEq) PO BID #120 tabs 10/08/24 blood sugar diagnostic (True Metrix Glucose Test Strip) 10/11/24 pantoprazole 40 mg tablet,delayed release (Protonix) 40 mg PO DAILY #30 tabs 10/13/24 sucralfate 1 gram tablet 1 g PO TIDAC 14 days #42 tabs 10/13/24 Hospital Course Operations None Procedures EGD Summary of Care Provided Minutes Spent on Discharge: 35 Hospital Course: Per HPI: JUAN DAVID HERNÁNDEZ, is a 84 M with a past medical history of essential hypertension; on carvedilol and furosemide, hyperlipidemia; on rosuvastatin, DM- 2; of unknown control on insulin detemir 32U sq HS plus insulin lispro 10U TID, history of PAF; on apixaban, CAD; s/p CABG (2009), ischemic cardiomyopathy with LVEF ~20% (01/2024); s/p AICD-PPM on ISMO and prn SL NTG, history of NSVT; s/p EPstudy (2006), history of nonrheumatic mitral valve insufficiency; s/p 30 mm [place] mitral valve annuloplasty, history of carotid stenosis; s/p Right carotid endarterectomy with bovine patch angioplasty (2020) followed by Dr. Ly of vascular surgery, CKD; stage II, BPH; on tamsulosin, chronic insomnia;on prn zolpidem q. HS, history of depression with anxiety; currently not on treatment, OA, DNR-CCA; with no intubation CODE STATUS and recent admission herefrom October 07, 2024 to October 08, 2024 with chief complaint of fatigue and malaisewith patient subsequently diagnosed with adult thyydum-fl-bdtjmh complicated by LISA; in the setting of stage II CKD with hypokalemia of 2.9 mmol/L and mild hyponatremia of 131 mmol/L who presents to [facility] ER complaining of dizziness and melena with watery black stools. Mr. Hernández reports his symptoms began approximately 1 day prior to admission after he ate a jar of vinegar beets with subsequent black stools and intermittent dizziness. He then went to see his PCP earlier today and had bloodwork performed as an outpatient that revealed evidence of upper GI bleeding withhemoglobin dropping to 11.1 g/dL (down from 13.3 g/dL on October 08, 2024) in addition to BUN of 84 mg/dL with serum creatinine of 2.22 mg/dL (up from his baseline of 27 mg/dL and 1.81 mg/dL on October 08, 2024) with corresponding symptomatic hypotension so he was directed to come to the ER for further evaluation and treatment. He states he last took his Eliquis at 3:30 PM today. There was no report of fever, chills, sore throat, runny nose, chest pain, lowerextremity edema, shortness of breath, cough, dysuria, hematuria, back pain or headache. In the ER he was noted to have severe hypotension of 86/55 mmHg shortly after admission due to suspected UGIB with ABLA likely due to Adverse Drug Reaction to apixaban with elevated INR of 2.2 present on admission. He wasthen admitted to the PCU for ongoing care for a stay that is expected to extend beyond 2 midnights. Hospital Course: 1. Acute blood loss anemia secondary to GI bleed worsened by Eliquis use/LISA?84-year-old male presented to the hospital with signs and symptoms consistent with GI bleed. He had an EGD which demonstrated a nonbleeding gastric ulcer. No other signs or symptoms of bleeding in the GI tract. Hemoglobin has remainedstable between 8.7 and 8.9 and his Eliquis was held on admission. I discussed with him the possibility for discharge today as GI did not feel like he needed acolonoscopy given the evidence of the ulcer. He expressed understanding of the risks and benefits of going home and would like to go home today. Given his AKIwill hold his Lasix on discharge for couple of days and given his GI bleed will hold his Eliquis on discharge for couple of days. He will be given prescriptions for Carafate and Protonix and I recommend outpatient follow-up with his PCP to recheck his hemoglobin next week. I also discussed with him theneed to follow-up with gastroenterology in the office if he has any further black stools. 2. Essential hypertension, hyperlipidemia, coronary artery disease status post CABG, paroxysmal A-fib, chronic systolic CHF, type 2 diabetes, BPH are all chronic medical conditions which complicate his care. His home medications werecontinued where appropriate Physical Exam Narrative General: Alert, Oriented x3, Cooperative, No apparent distress HEENT: Atraumatic, PERRLA, EOMI, Normocephalic Oral: Moist Mucosa Neck: Supple, No JVD Lungs: Diminished, Normal air movement, No rhonchi, No wheeze, No rales Cardiovascular: Regular rate, Regular Rhythm, Normal S1, Normal S2, No murmurs Abdomen: Soft, Non Tender, Non-Distended, No Hepato-splenomegaly Extremities: No edema, Capillary Refill Less than 3 Seconds Skin: No rashes, No breakdown Musculoskeletal: No Tenderness to Palpation of Joints or Extremities Neurological: No focal neurological deficits, Motor Exam 5/5 strength throughout, Sensory exam intact to light touch and pain Psych/Mental Status: Normal Affect, Appropriate Weight / BMI Weight Weight: 145 lb 8.081 oz Body Mass Index (BMI) 22.8 ABG / Lab / Microbiology Data 10/13/24 06:06 10/13/24 06:06 Laboratory: Laboratory Results - last 24 hr 10/12/24 19:30: Hgb 8.9 L, Hct 27.0 L 10/12/24 23:47: POC Glucose 150 H 10/13/24 06:00: POC Glucose 144 H 10/13/24 06:06: WBC 6.6, RBC 2.76 L, Hgb 8.7 L, Hct 26.6 L, MCV 96.4 H, MCH 31.5, MCHC 32.7, RDW Std Deviation 49.7 H, RDW Coeff of [place] 14.4, Plt Count 160,MPV 10.1, Immature Gran % (Auto) 0.300, Neut % (Auto) 75.3 H, Lymph % (Auto) 13.7 L, Spencer % (Auto) 8.0, Eos % (Auto) 2.1, Baso % (Auto) 0.6, Absolute Neuts (auto) 5.0, Absolute Lymphs (auto) 0.91, Nucleated RBC % 0, Sodium 143, Potassium 3.4, Chloride 108, Carbon Dioxide 23.7, Anion Gap 11, BUN 52 H, Creatinine 1.87 H, Estim Creat Clear Calc 27.94 L, Est GFR (MDRD) Non-Af 35 L, BUN/Creatinine Ratio 27.7 H, Glucose 155 H, Calcium 8.3 10/13/24 11:18: POC Glucose 350 H Microbiology: Microbiology 10/11/24 21:35 Stool Stool Occult Blood (MADELEINE) - Final D/C Instructions Discharge Diet: Low fat / Low cholesterol and Carb Control Diet Call your doctor if you observe: Fever of 101 or Higher, Shortness of breath, Dizziness, Fainting spells, Swelling in the ankles, Chest pain and Increased palpitations (irregular heartbeat) DC O2, CPAP, BIPAP Needs Home O2 Discharge instructions: No Meaningful Use Info Meaningful Use Meaningful Use Diagnoses (Choose all that apply): None applicable Ischemic Stroke Statin Dosing Therapy Reference: STATIN DOSE THERAPY REFERENCE: * Patients > 75 years receive moderate or high dose statin therapy. * Patients 75 years or YOUNGER should receive HIGH intensity statin dose unless contraindicated. You will be required to document reason for non-treatment if statin daily dose does not meet guidelines. HIGH DOSE STATIN THERAPY DAILY Atorvastatin > than or = to 40 mg Rosuvastatin > than or = to 20 mg Amlodipine + Atorvastatin > than or = to 2.5/40 mg Ezetimibe + Simvastatin 10/80 mg Simvastatin 80mg Discharge Plan Admission Admit Date/Time: 10/11/24 23:32 Attending Provider: García Cabezas Primary Care Provider: Jose Enrique Finney Consulting Providers: Germán Landeros Instructions Additional Instructions / Restrictions: Follow-up with your PCP in 3 to 5 days to recheck a CBC to monitor your hemoglobin and anemia. Discharge Orders/Prescriptions Prescriptions: New sucralfate 1 gram Tablet 1 g PO TIDAC 14 Days Qty: 42 0RF pantoprazole [Protonix] 40 mg tablet,delayed release (DR/EC) 40 mg PO DAILY Qty: 30 0RF Continued tamsulosin 0.4 mg capsule 0.4 mg PO DAILY zolpidem [Ambien] 5 mg tablet 5 mg PO QHS PRN (Reason: insomnia) nitroglycerin [Nitrostat] 0.4 mg tablet, sublingual 0.4 mg sublingual Q5-15M PRN (Reason: chest pain) Qty: 25 3RF Rx Instructions: do not exceed 3 doses per episode multivitamin with folic acid 1 TABLET tablet 1 tab PO DAILY insulin detemir U-100 100 unit/mL (3 mL) insulin pen 32 unit SC QHS insulin lispro 100 UNIT/ML cartridge 10 unit SC TID potassium chloride 20 mEq Tablet,Er Particles/Crystals 40 meq PO BID Qty: 120 0RF (DME) True Metrix Glucose Test Strip Strip 1 strip MISCELLANEOUS TID carvedilol 12.5 mg tablet 12.5 mg PO BID Qty: 180 3RF rosuvastatin 40 mg tablet 40 mg PO DAILY Qty: 90 3RF isosorbide mononitrate 30 mg tablet extended release 24 hr 30 mg PO DAILY Qty: 90 3RF Held apixaban 5 mg tablet 5 mg PO BID Qty: 180 3RF Hold Instructions: Resume on 10/15/24. furosemide 40 mg tablet 40 mg PO .COMPLEX Qty: 180 3RF Hold Instructions: Resume on 10/14/24. Rx Instructions: 40 mg orally decrease to once daily: May need to increase back to twice daily if SOB, swelling, etc.; Referrals / Follow Up: Jose Enrique Finney MD [Primary Care Provider] - Within 1 Week Checo Chavez DO [Med Staff - Active Staff] - Within 1 Month (Make a sooner appointment if recurrent black stools) Disposition Disposition (needs filled in before D/C Order can be placed): Home, Self Care Charges/Coding Visit Charges Inpatient E&M: 71597 Disch Hosp >30min 10/13/24 1322 <Electronically signed by García Cabezas MD> Cosigner Signature (if applicable): CC: Dr. Jose Enrique Finney MD; Dr. 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 gene NSVT (nonsustained ventricular tachycardia) chronic Paroxysmal atrial fibrillation chronic [facility] Work Phone: Evaluation note* Diagnosis Onset Date Resolution Status ICD (implantable cardioverter-defibrillator) in place acute Ischemic cardiomyopathy threat monitoring analyst gene Paroxysmal atrial fibrillation [facility] Work Phone: Evaluation note* Diagnosis Onset Date Resolution Status ICD (implantable cardioverter-defibrillator) in place acute Ischemic cardiomyopathy threat monitoring analyst gene Paroxysmal atrial fibrillation chronic ICD (implantable cardioverter-defibrillator) in place acute Ischemic cardiomyopathy threat monitoring analyst gene Paroxysmal atrial fibrillation chronic ICD (implantable cardioverter-defibrillator) in place acute Ischemic cardiomyopathy threat monitoring analyst gene Paroxysmal atrial fibrillation [facility] Work Phone: Evaluation note* Diagnosis Onset Date Resolution Status ICD (implantable cardioverter-defibrillator) in place acute Ischemic cardiomyopathy threat monitoring analyst gene Paroxysmal atrial fibrillation chronic ICD (implantable cardioverter-defibrillator) in place acute Ischemic cardiomyopathy threat monitoring analyst gene Paroxysmal atrial fibrillation chronic Aortic valve stenosis, nonrheumatic acute ICD (implantable cardioverter-defibrillator) in place acute [id number] chronic Essential (primary) hypertension chronic Ischemic cardiomyopathy threat monitoring analyst gene Mixed hyperlipidemia chronic Paroxysmal atrial fibrillation chronic Status post mitral valve annuloplasty [facility] Work Phone: Evaluation note* Diagnosis Onset Date Resolution Status Aortic valve stenosis, nonrheumatic acute ICD (implantable cardioverter-defibrillator) in place acute [id number] chronic Essential (primary) hypertension chronic Ischemic cardiomyopathy threat monitoring analyst gene Mixed hyperlipidemia chronic Paroxysmal atrial fibrillation chronic Status post mitral valve annuloplasty chronic ICD (implantable cardioverter-defibrillator) in place acute History of electrophysiologic study chronic Ischemic cardiomyopathy threat monitoring analyst gene NSVT (nonsustained ventricular tachycardia) chronic Paroxysmal atrial fibrillation chronic ICD (implantable cardioverter-defibrillator) in place acute History of electrophysiologic study chronic Ischemic cardiomyopathy threat monitoring analyst gene Paroxysmal atrial fibrillation [facility] Work Phone: Evaluation note* Diagnosis Abrasion of left ear, initial encounter- [facility] Diagnosis Onset Date Resolution Status ICD (implantable cardioverter-defibrillator) in place acute History of electrophysiologic study chronic Ischemic cardiomyopathy threat monitoring analyst gene NSVT (nonsustained ventricular tachycardia) chronic Paroxysmal atrial fibrillation chronic ICD (implantable cardioverter-defibrillator) in place acute History of electrophysiologic study chronic Ischemic cardiomyopathy threat monitoring analyst gene Paroxysmal atrial fibrillation chronic ICD (implantable cardioverter-defibrillator) in place acute Ischemic cardiomyopathy threat monitoring analyst gene Decubitus ulcer of right foot, stage 2 acute Diabetic foot ulcer associat ed with type 2 diabetes mellitus acute Unspecified open wound of ot her part of head, initial encounter acute [facility] Work Phone: Evaluation note* Diagnosis Onset Date Resolution Status ICD (implantable cardioverter-defibrillator) in place acute History of electrophysiologic study chronic Ischemic cardiomyopathy threat monitoring analyst gene NSVT (nonsustained ventricular tachycardia) chronic Paroxysmal atrial fibrillation chronic ICD (implantable cardioverter-defibrillator) in place acute History of electrophysiologic study chronic Ischemic cardiomyopathy threat monitoring analyst gene Paroxysmal atrial fibrillation chronic ICD (implantable cardioverter-defibrillator) in place acute Ischemic cardiomyopathy threat monitoring analyst gene Decubitus ulcer of right foot, stage 2 acute Diabetic foot ulcer associat ed with type 2 diabetes mellitus acute Unspecified open wound of ot her part of head, initial encounter acute ICD (implantable cardioverter-defibrillator) in place acute Ischemic cardiomyopathy threat monitoring analyst gene NSVT (nonsustained ventricular tachycardia) chronic Paroxysmal atrial fibrillation chronic ICD (implantable cardioverter-defibrillator) in place acute Right carotid bruit acute [id number] chronic Essential (primary) hypertension chronic Ischemic cardiomyopathy threat monitoring analyst gene Mixed hyperlipidemia chronic Paroxysmal atrial fibrillation chronic Status post mitral valve annuloplasty chronic Decubitus ulcer of right foot, stage 2 acute Diabetic foot ulcer associat ed with type 2 diabetes mellitus acute Unspecified open wound of ot her part of head, initial encounter acute [facility] Work Phone: Evaluation note* Diagnosis Onset Date Resolution Status ICD (implantable cardioverter-defibrillator) in place acute History of electrophysiologic study chronic Ischemic cardiomyopathy threat monitoring analyst gene Paroxysmal atrial fibrillation chronic ICD (implantable cardioverter-defibrillator) in place acute Ischemic cardiomyopathy threat monitoring analyst gene Decubitus ulcer of right foot, stage 2 acute Diabetic foot ulcer associat ed with type 2 diabetes mellitus acute Unspecified open wound of ot her part of head, initial encounter acute ICD (implantable cardioverter-defibrillator) in place acute Ischemic cardiomyopathy threat monitoring analyst gene NSVT (nonsustained ventricular tachycardia) chronic Paroxysmal atrial fibrillation chronic ICD (implantable cardioverter-defibrillator) in place acute Right carotid bruit acute [id number] chronic Essential (primary) hypertension chronic Ischemic cardiomyopathy threat monitoring analyst gene Mixed hyperlipidemia chronic Paroxysmal atrial fibrillation chronic Status post mitral valve annuloplasty chronic Decubitus ulcer of right foot, stage 2 acute Diabetic foot ulcer associat ed with type 2 diabetes mellitus acute Unspecified open wound of ot her part of head, initial encounter acute Decubitus ulcer of right foot, stage 2 acute Diabetic foot ulcer associat ed with type 2 diabetes mellitus acute Unspecified open wound of ot her part of head, initial encounter acute [facility] Work Phone: Evaluation note* Diagnosis Onset Date Resolution Status ICD (implantable cardioverter-defibrillator) in place acute Ischemic cardiomyopathy threat monitoring analyst gnee Decubitus ulcer of right foot, stage 2 acute Diabetic foot ulcer associat ed with type 2 diabetes mellitus acute Unspecified open wound of ot her part of head, initial encounter acute ICD (implantable cardioverter-defibrillator) in place acute Ischemic cardiomyopathy threat monitoring analyst gene NSVT (nonsustained ventricular tachycardia) chronic Paroxysmal atrial fibrillation chronic ICD (implantable cardioverter-defibrillator) in place acute Right carotid bruit acute [id number] chronic Essential (primary) hypertension chronic Ischemic cardiomyopathy threat monitoring analyst gene Mixed hyperlipidemia chronic Paroxysmal atrial fibrillation chronic Status post mitral valve annuloplasty chronic Decubitus ulcer of right foot, stage 2 acute Diabetic foot ulcer associat ed with type 2 diabetes mellitus acute Unspecified open wound of ot her part of head, initial encounter acute Decubitus ulcer of right foot, stage 2 acute Diabetic foot ulcer associat ed with type 2 diabetes mellitus acute Unspecified open wound of ot her part of head, initial encounter acute [facility] Work Phone: Evaluation note* Diagnosis Onset Date Resolution Status Decubitus ulcer of right foot, stage 2 acute Diabetic foot ulcer associat ed with type 2 diabetes mellitus acute Unspecified open wound of ot her part of head, initial encounter acute ICD (implantable cardioverter-defibrillator) in place acute History of electrophysiologic study chronic Ischemic cardiomyopathy threat monitoring analyst gene NSVT (nonsustained ventricular tachycardia) chronic Paroxysmal atrial fibrillation chronic ICD (implantable cardioverter-defibrillator) in place acute Ischemic cardiomyopathy threat monitoring analyst gene NSVT (nonsustained ventricular tachycardia) chronic Paroxysmal atrial fibrillation chronic ICD (implantable cardioverter-defibrillator) in place acute Right carotid bruit acute [id number] chronic Essential (primary) hypertension chronic Ischemic cardiomyopathy threat monitoring analyst gene Mixed hyperlipidemia chronic Paroxysmal atrial fibrillation chronic Status post mitral valve annuloplasty chronic Decubitus ulcer of right foot, stage 2 acute Diabetic foot ulcer associat ed with type 2 diabetes mellitus acute Unspecified open wound of ot her part of head, initial encounter acute Decubitus ulcer of right foot, stage 2 acute Diabetic foot ulcer associat ed with type 2 diabetes mellitus acute Unspecified open wound of ot her part of head, initial encounter acute Decubitus ulcer of right foot, stage 2 acute Diabetic foot ulcer associat ed with type 2 diabetes mellitus acute Unspecified open wound of ot her part of head, initial encounter acute Decubitus ulcer of right foot, stage 2 acute Diabetic foot ulcer associat ed with type 2 diabetes mellitus acute Unspecified open wound of ot her part of head, initial encounter acute [facility] Work Phone: Evaluation note* Diagnosis Onset Date Resolution Status ICD (implantable cardioverter-defibrillator) in place acute History of electrophysiologic study chronic Ischemic cardiomyopathy threat monitoring analyst gene NSVT (nonsustained ventricular tachycardia) chronic Paroxysmal atrial fibrillation chronic ICD (implantable cardioverter-defibrillator) in place acute Ischemic cardiomyopathy threat monitoring analyst gene NSVT (nonsustained ventricular tachycardia) chronic Paroxysmal atrial fibrillation chronic ICD (implantable cardioverter-defibrillator) in place acute Right carotid bruit acute [id number] chronic Essential (primary) hypertension chronic Ischemic cardiomyopathy threat monitoring analyst gene Mixed hyperlipidemia chronic Paroxysmal atrial fibrillation chronic Status post mitral valve annuloplasty chronic Decubitus ulcer of right foot, stage 2 acute Diabetic foot ulcer associat ed with type 2 diabetes mellitus acute Unspecified open wound of ot her part of head, initial encounter acute Decubitus ulcer of right foot, stage 2 acute Diabetic foot ulcer associat ed with type 2 diabetes mellitus acute Unspecified open wound of ot her part of head, initial encounter acute Decubitus ulcer of right foot, stage 2 acute Diabetic foot ulcer associat ed with type 2 diabetes mellitus acute Unspecified open wound of ot her part of head, initial encounter acute Decubitus ulcer of right foot, stage 2 acute Diabetic foot ulcer associat ed with type 2 diabetes mellitus acute Unspecified open wound of ot her part of head, initial encounter acute [facility] Work Phone: Evaluation note* Diagnosis Onset Date Resolution Status ICD (implantable cardioverter-defibrillator) in place acute Right carotid bruit acute [id number] chronic Essential (primary) hypertension chronic Ischemic cardiomyopathy threat monitoring analyst gene Mixed hyperlipidemia chronic Paroxysmal atrial fibrillation chronic Status post mitral valve annuloplasty chronic [facility] Work Phone: History and physical note Author Kira Lerma [facility] Note Date/Time October 07, 2024 11:4 9pm [facility] Medical Records Department [address] [place] [address] H&P Exam - Hospitalist 10/07/24 8187 MR#: [id number] Acct: [id number] Name: JUAN DAVID HERNÁNDEZ Rep #:[id number] : 1940 84 From: Kira Lerma MD PCP: Dr. Jose Enrique Finney MD Status:RE G ER Location: ED HPI - General General Date of Admission: 10/07/24 Date of Service: 10/07/24 Chief Complaint: Fatigue, malaise. HPI Narrative The patient is an 84 y/o M w/ PMHx: PAF, HTN, HLD, Diabetes mellitus type II, BPH with obstructive pathology, Anxiety and Depression, CKD stage II per previous GFR trending, CAD/ischemic cardiomyopathy s/p AICD/pacemaker and PCI/CABG 2009, Carotid disease status post right carotid endarterectomy, Valvular Heart Disease who presents to the [facility] ED on 10/07/2024 with history of significant fatigue and general malaise reporting that a couple days previous hetook a single metolazone 2.5 mg thinking that potentially he had been overloadedand this was the reason but he does report that his chronic dyspnea is unchangedand is had no recent URI type symptoms nor any GI symptoms or any chest discomfort prompt eventual ED evaluation to be cautious. Family members and patient do state that eventually he will need his battery changed in the ICD butit is unclear when. Patient denies unfortunately checking his weights daily. He notes he is chronically dyspneic and this is worse with exertion. He does report chronic lower extremity edema which is unchanged. He does report since taking the diuretic he has had notable leg cramping. Workup in the ED included T98 temporal, heart 65, BP 118/76, respiratory rate 14, 98% room air with most recent repeat vitals heart rate 62, BP 123/81, respiratory rate 18, 94% room air, CBC with WC 8.0, he 1 14.1, platelets 196 without marked shift, CMP with sodium 131, potassium 2.9, chloride 88, anion gap 18, BUN/creatinine 27/1.95, GFR 34, glucose 118, alk phos 133 otherwise hepatic profile not marked appearing, troponin initial 46, chest x-ray with no acute cardiopulmonary findings, CT brain with no acute intracranial findings, urinalysis pending upon requested evaluation of patient, delta troponin pending upon request evaluation of patient, EKG with paced rhythm with PVC with no acute evidence of ischemia, rapid SARS COVID/impulsive/ RSV PCR negative. In the ED patient started on 10 mEq IV x 1 K supplementation. [facility] Medical History Mixed hyperlipidemia Paroxysmal atrial fibrillation Hypokalemia due to loss of potassium Acute blood loss anemia Upper GI bleed Muscle cramps NSVT (nonsustained ventricular tachycardia) Nonrheumatic mitral valve insufficiency Atherosclerosis of [place] coronary artery of [place] heart without angina pectoris Ischemic cardiomyopathy Essential (primary) hypertension Type 2 diabetes mellitus without complications Home Medications ?Medication ?Instructions ?Recorded ?Last Taken ?Type multivitamin with folic acid 400 1 tab PO DAILY supple ment 04/11/17 Unknown History mcg tablet insulin lispro 100 unit/mL 10 unit subcut TID blood miranda gar 03/17/18 11/12/18 07:00 History subcutaneous cartridge insulin detemir U-100 100 unit/mL 32 unit subcut QHS d iabetes 11/10/20 Unknown History (3 mL) subcutaneous pen tamsulosin 0.4 mg capsule 0.4 mg PO DAILY 11/10/20 Unk nown History zolpidem 5 mg tablet (Ambien) 5 mg PO QHS PRN insomnia 11/10/20 Unknown History apixaban 5 mg tablet 5 mg PO BID #180 tabs Unknown Rx carvedilol 12.5 mg tablet 12.5 mg PO BID #180 tabs Unknown Rx cyclobenzaprine 5 mg tablet 5 mg PO TID PRN muscle spa sm 02/16/23 Unknown History mirtazapine 15 mg tablet 15 mg PO QHS 02/16/23 Unknow n History nitroglycerin 0.4 mg sublingual 0.4 mg sublingual Q5-1 5M PRN chest 03/22/23 Unknown Rx tablet (Nitrostat) pain #25 tabs potassium chloride 20 mEq 20 meq PO BID supplement #18 0 tabs 04/16/24 Unknown Rx tablet,extended release(part/cryst) isosorbide mononitrate 30 mg 30 mg PO DAILY #90 tabs 1 08/18/23 Unknown Rx tablet,extended release 24 hr rosuvastatin 40 mg tablet 40 mg PO DAILY #90 tabs 06/01 03/24 Unknown Rx furosemide 40 mg tablet 40 mg PO .COMPLEX diuretic # 180 08/03/24 Unknown Rx tabs Allergy/AdvReac Type Severity Reaction Status Date / Time atorvastatin Allergy Severe myalgias, Verified 10/07/24 20:06 tongue swelling captopril Allergy Severe tongue Verified 10/07/24 20:06 swelling rivaroxaban (From Xarelto) Allergy Severe tongue Verified 10/07/24 20:06 swelling glimepiride Allergy Intermediate mouth Verified 10/07/24 20:06 blisters levofloxacin (From Levaquin) Allergy Intermediate leg pain Verified 10/07/24 20:06 dapagliflozin (From Farxiga) Allergy Unknown Rash Verified 10/07/24 20:06 azithromycin (From Zithromax) AdvReac Severe blisters Verified 10/07/24 20:06 metolazone AdvReac Severe Rash/Itchin Verified 10/07/24 20:06 g pravastatin AdvReac Intermediate itching Verified 10/07/24 20:06 other (Patient states he cannot recall any medical history in his mother or father and is certain there was no marked cardiac history of note.) Surgical History History of right-sided carotid endarterectomy History of electrophysiologic study History of left heart catheterization Status post mitral valve annuloplasty Hx of CABG (~11/14/09) Social History household members: none Smoking Status: Former smoker how long ago did patient quit smokin years ago alcohol intake: never substance use type: does not use caffeine: No what type of physical activity do you participate in: walking frequency: daily duration: 15-30 minutes/day seatbelt use: always do you feel safe at home: Yes ROS ROS Narrative Admission Review of Systems: CONSTITUTIONAL: No weight loss, fever, chills, + weakness or fatigue. HEENT: Eyes: No visual loss, blurred vision, double vision or yellow sclerae. Ears, Nose, Throat: No hearing loss, sneezing, congestion, runny nose or sore throat. SKIN: No rash or itching, lesions, wounds. CARDIOVASCULAR: + Chronic peripheral edema. No chest pain, chest pressure or chest discomfort, palpitations, orthopnea, syncopal events. RESPIRATORY: + Chronic dyspnea, worse with exertion. No marked productive sputum, wheezing, hemoptysis. GASTROINTESTINAL: No anorexia, nausea, vomiting or diarrhea, abdominal pain, melena, BRBPR. GENITOURINARY: + BPH with chronic frequency. No dysuria, urgency or retention. NEUROLOGICAL: No headache, dizziness, syncope, paralysis, ataxia, numbness or tingling in the extremities, focal weakness, change in bowel or bladder control,seizure. MUSCULOSKELETAL: + muscle, back pain, joint pain or stiffness. HEMATOLOGIC: No anemia. + Easy bleeding/bruising. LYMPHATICS: No enlarged nodes. No history of splenectomy. PSYCHIATRIC: No history of depression or anxiety. ENDOCRINOLOGIC: No reports of sweating, cold or heat intolerance. No polyuria orpolydipsia. ALLERGIES: No history of asthma, hives, eczema or rhinitis. Vital Signs Vital Signs Vital Signs: 10/07/24 20:06 10/07/24 20:58 10/07/24 22:06 Temperature 98 F Temperature Source Temporal Pulse Rate 65 62 Respiratory Rate 14 18 Respiratory Effort Normal Non-Labored Respiratory Pattern Normal Blood Pressure 118/76 123/81 H Blood Pressure Mean 90 95 Pulse Ox 98 94 Oxygen Delivery Method Room Air Room Air 10/07/24 23:11 Temperature 98.0 F Temperature Source Pulse Rate 61 Respiratory Rate 18 Respiratory Effort Respiratory Pattern Blood Pressure 110/71 Blood Pressure Mean 84 Pulse Ox 96 Oxygen Delivery Method Weight Weight: 149 lb 11.102 oz Body Mass Index (BMI) 23.4 Physical Exam Narrative Physical Examination: General: Awake, alert, oriented x 3 and cooperative, seated upright in bed in noapparent distress, complaining of lower extremity cramping. Skin: Normal color, normal turgor, no icterus, no cyanosis except significant bilateral lower extremity venous stasis skin changes, occasional stage ecchymoses. HEENT: AT/NC, EOMI, PERRLA, dry MM, no carotid bruits or JVD noted. Lungs: Mildly diminished, greater bases, appropriate effort, no rales, ronchi orwheezing. Heart: Paced; no gallop, rub audible, + SM. Abdomen: Soft, NTTP, ND, mildly hyperactive BS, no appreciated HSM. Extremities: No cyanosis, no clubbing, see skin, chronic distal edema unchanged he notes. Neurological: Patient awake, alert, oriented as noted, cognitive function intact; pupils equally reactive to light and accommodation, cranial nerves grossly normal, moving all 4 extremities, no focal deficits, strength moderatelyglobally decreased. Psychiatric: Affect appears fatigued otherwise normal, no acute evidence of depressive or anxiety feelings. Results Lab / Micro Data 10/07/24 20:48 10/07/24 20:48 Labs: Laboratory Results - last 24 hr 10/07/24 20:48: WBC 8.0, RBC 4.50 L, Hgb 14.1, Hct 40.1, MCV 89.1, MCH 31.3, MCHC 35.2, RDW Std Deviation 42.5, RDW Coeff of Marley 13.0, Plt Count 196, MPV 9.9, Immature Gran % (Auto) 0.400, Neut % (Auto) 68.0, Lymph % (Auto) 18.6 L, Spencer % (Auto) 11.1 H, Eos % (Auto) 1.5, Baso % (Auto) 0.4, Absolute Neuts (auto) 5.5, Absolute Lymphs (auto) 1.49, Nucleated RBC % 0, Sodium 131 L, Potassium 2.9L, Chloride 88 L, Carbon Dioxide 26.0, Anion Gap 18 H, BUN 27 H, Creatinine 1.95H, Estim Creat Clear Calc 26.84 L, Est GFR (MDRD) Non-Af 34 L, BUN/Creatinine Ratio 13.9, Glucose 118 H, Calcium 9.6, Total Bilirubin 1.04, AST 35, ALT 36, Alkaline Phosphatase 133 H, Troponin T High Sens 46 H, Total Protein 7.4, Albumin4.3, Globulin 3.1, Albumin/Globulin Ratio 1.4 10/07/24 22:12: Urine Color Straw, Urine Clarity Clear, Urine pH 7.0, Ur Specific [place] 1.005, Urine Protein 100 H, Urine Glucose (UA) Normal, Urine Ketones Negative, Urine Occult Blood 25 H, Urine Nitrite Negative, Urine Bilirubin Negative, Urine Urobilinogen Normal, Ur Leukocyte Esterase Negative, Urine RBC 0-5 SEEN, Urine WBC 0-5 SEEN, Ur Squamous Epith Cells 0 SEEN, Urine Bacteria 0 SEEN, Urine Mucus 0 SEEN 10/07/24 22:45: Troponin T Hi Sens 2 Hr 46 H Micro: Microbiology 10/07/24 20:48 Mucosa - Nose SARS-CoV-2, Influenza & RSV (PCR) - Final Rhythm Strip Rhythm Strip: paced Rate: 65 Ectopy: PVC(s) Imaging Radiology Impression Brain CT 10/07/24 20:27 IMPRESSION: No acute intracranial abnormality. Reading Location: [facility] Chest X-Ray 10/07/24 21:10 IMPRESSION: No acute airspace abnormality. Reading Location: [facility] Assessment & Plan Assessment/Plan (1) LISA (acute kidney injury): (2) Acute hypokalemia: PLAN: Plan The patient is an 84 y/o M w/ PMHx: PAF, HTN, HLD, Diabetes mellitus type II, BPH with obstructive pathology, Anxiety and Depression, CKD stage II per previous GFR trending, CAD/ischemic cardiomyopathy s/p AICD/pacemaker and PCI aswell as CABG 2009, Carotid disease status post right carotid endarterectomy, Valvular Heart Disease who presents to the [facility] ED on 10/07/2024 with history of significant fatigue and general malaise reporting that a couple days previous hetook a single metolazone 2.5 mg thinking that potentially he had been overloadedand this was the reason but he does report that his chronic dyspnea is unchangedand is had no recent URI type symptoms nor any GI symptoms or any chest discomfort prompt eventual ED evaluation to be cautious. #1. Fatigue, malaise, Adult FTT: Will admit to [facility], will maintain on telemetry monitoring given indeterminate enzyme and continue to trend but low suspicion, will continue supplementation of potassium with initial IV supplementation started in the ED, will add oral regimen as well as noted, maintain on fall precautions, will add procalcitonin, urinalysis pending, interrogate device, PT/OT/case management consulted for discharge planning. #2. Indeterminate cardiac enzyme: EKG with paced rhythm with PVC with no acute evidence of ischemia, CXR w/ no acute cardiopulmonary findings, initial trop 46 with repeat delta 2-hour pending upon evaluation. Will place on a monitored bed to assure no acute myocardial infarction with serial cardiac enzymes and EKGs. Will supplement potassium and obtain magnesium level. If enzymes rise significantly with involve cardiology, obtain echocardiogram. Continued on NOACtherapy. #3. Acute kidney injury on CKD stage II per previous GFR trend: Secondary to acute presentation, decreased oral intake/dehydration. Admission BUN/Cr 27/1.95,GFR 34, prior baseline creatinine noted to be primarily 1.0-1.2. Will hydrate, hold nephrotoxic medications and repeat chemistry in AM. If no improvement wouldplan further assessment. #4. Hypokalemia: Admission K+ 2.9, magnesium level requested, supplementation given administered in the ED however will need to replete further and will add oral regimen also, repeat level in AM. #5. Hyponatremia, hypochloremia, suspected hypovolemic component secondary to diuretics including recent addition of metolazone x 1: Admission sodium 131, chloride 88, will very judiciously hydration, repeat CMP in AM. #6. CAD/ischemic cardiomyopathy, VT: Status post CABG 2009 9LIMA to LAD, SVG to1st CFX & 2nd CFX), PCI as well as AICD/pacemaker given significantly reduced EFmost recently noted 01/2024 LVEF 20%, we will continue apixaban, statin therapy, Coreg, not on DAPHNIE/ARB. Requesting device interrogation. #7. Valvular heart disease: Status post mitral valve annuloplasty, most recent echocardiogram noted 02/15/2024 with mildly dilated LV, LVEF 20%, severe global hypokinesis LV, evidence of diastolic dysfunction, mild biatrial dilatation, status post mitral valve repair, mild MVI, mild aortic stenosis. #8. Carotid disease: Status post right carotid endarterectomy, following with vascular surgeon Dr. Ly, continue apixaban, statin, hypertensive regimen, diabetic regimen as noted. #9. Diabetes mellitus type II: Will continue home insulin regimen, ADA diet, accu checks w/ ISS. #10. Hypertension: Continue home regimen including Coreg, isosorbide, temporally holding diuretics, add back once clinically appropriate, PRN hydralazine. #11. Hyperlipidemia: We will continue patient on statin therapy. #12. PAF: We will continue patient home Coreg and Eliquis regimen with adjustments for acute kidney injury as needed. #13. Anxiety and depression: We will continue patient home mirtazapine regimen with alteration as needed/hold as needed for renal function alteration. #14. BPH with obstructive pathology: We will continue patient on Flomax regimen. #15. DVT prophylaxis: Will continue apixaban with adjustments for acute kidney injury needed. #16. CODE status: Patient QUINN is his son and living will is currently in place. Discussed CODE status at length including difference between FULL code, DNR-CCA and DNR-CC status. Following discussions about the differences in these status, requested DNR-CCA, no intubation. Examples were given and CODE STATUS decision was confirmed. His grandson is present and he and himself both deny ever having discussions with his son who is his healthcare power of contract attorney about these items thus recommended that they have an open form discussion. Advanced Care Planning Face to Face Time: 16 minutes. Charges/Coding Visit Charges Inpatient E&M: 37947 Init Hosp L3 Procedures Hospitalists Procedures: 18168 Advncd Care Plan 30 Min 10/07/24 2349 <Electronically signed by Kira Lerma MD> Cosigner Signature (if applicable): CC: Dr. Kira Lerma MD; Dr. Jose Enrique Finney MD~ Signed [facility] Work Phone: History and physical note Author Checo Chavez [facility] Note Date/Time January 09, 2025 12:3 9pm [facility] Medical Records Department [address] [place] [address] History & Physical Exam 01/09/25 1238 MR#: [id number] Acct: [id number] Name: JUAN DAVID HERNÁNDEZ Rep #:[id number] : 1940 84 From: Checo Chavez DO PCP: Dr. Jose Enrique Finney MD Status:[facility] Location: [address] - General General Date of Admission: 01/09/25 Date of Service: 01/09/25 Chief Complaint: Gastric ulcer HPI Narrative 84-year-old male presents for follow-up post admission for GI bleed. EGD 10/12/2024 - No specimens were collected The examined esophagus was normal. Two non-bleeding cratered gastric ulcers with a visible vessel were found at the pylorus. The largest lesion was 6 mm in largest dimension. Coagulation for hemostasis using heater probe was successful. Estimated blood loss was minimal. No gross lesions were noted in the first portion of the duodenum. - resumed Lasix on 10/14 and Eliquis on 10/15 - he reports he was taking Debra Back and Body Extra Strength Aspirin 500 mg, Pain Reliever With Caffeine, 200 Coated Caplets - he would take couple a couple times a day, once a week - reports a weight loss of 10-15lbs in the past 6 months - unexplained - thinks maybe taking too much lasix - denies any abdominal pain - denies any nausea - denies any emesis - reports his last episode of melena was yesterday - he is taking pantoprazole 40mg once daily and carafate TID AC - will d/c carafate after 14 days - [facility] Medical History Tinnitus Wears glasses Wears dentures Insulin dependent diabetes mellitus Arthritis High cholesterol Back pain Difficulty swallowing History of GI bleed Former smoker Shortness of breath on exertion Leg cramps History of pain when walking History of edema History of CHF (congestive heart failure) History of heart attack History of echocardiogram History of stress test Cardiology follow-up encounter Hx of fracture of leg Neuropathy Declining functional status LISA (acute kidney injury) Acute hypokalemia Mixed hyperlipidemia Paroxysmal atrial fibrillation Hypokalemia due to loss of potassium Upper GI bleed NSVT (nonsustained ventricular tachycardia) Nonrheumatic mitral valve insufficiency Atherosclerosis of [place] coronary artery of [place] heart without angina pectoris Ischemic cardiomyopathy Essential (primary) hypertension Type 2 diabetes mellitus without complications Home Medications ?Medication ?Instructions ?Recorded ?Last Taken ?Type multivitamin with folic acid 400 1 tab PO DAILY supple ment 04/11/17 Unknown History mcg tablet insulin detemir U-100 100 unit/mL 32 unit subcut QHS d iabetes 11/10/20 Unknown History (3 mL) subcutaneous pen apixaban 5 mg tablet 5 mg PO BID Blood thinner #1 80 tabs 07/27/21 Unknown Rx carvedilol 12.5 mg tablet 12.5 mg PO BID Heart rate/bl ood 02/24/21 Unknown Rx pressure #180 tabs nitroglycerin 0.4 mg sublingual 0.4 mg sublingual Q5-1 5M PRN chest 03/22/23 Unkn own Rx tablet (Nitrostat) pain #25 tabs isosorbide mononitrate 30 mg 30 mg PO DAILY heart #90 tabs 06/18/24 Unknown Rx tablet,extended release 24 hr rosuvastatin 40 mg tablet 40 mg PO DAILY cholesterol # 90 tabs 06/18/24 Unknown Rx blood sugar diagnostic (True 10/11/24 Unknown History Metrix Glucose Test Strip) ascorbate calcium (vitamin C) 500 500 mg PO QDAY #90 t abs 10/17/24 Unknown Rx mg tablet pantoprazole 40 mg tablet,delayed 40 mg PO BID #180 ta bs 10/17/24 Unknown Rx release insulin lispro 100 unit/mL 10 unit subcut TID 11/01/24 Unknown History subcutaneous pen (Humalog KwikPen (U-100) Insulin) tamsulosin 0.4 mg capsule 0.4 mg PO QHS 11/01/24 Unkno wn History zolpidem 5 mg tablet 5 mg PO QHS PRN sleep Unknown History furosemide 40 mg tablet 40 mg PO BID diuretic #180 t abs 12/05/24 Unknown Rx acetaminophen 500 mg tablet 500 mg PO Q6H PRN back rusty n #60 12/20/24 Unknown Rx (Tylenol Extra Strength) tabs ferrous sulfate 325 mg (65 mg 325 mg PO QODAY 01/04/25 Unknown History iron) tablet potassium chloride 20 mEq 20 meq PO BID 01/04/25 Unkno wn History tablet,extended release(part/cryst) Allergy/AdvReac Type Severity Reaction Status Date / Time atorvastatin Allergy Severe myalgias, Verified 01/04/25 11:02 tongue swelling captopril Allergy Severe tongue Verified 01/04/25 11:02 swelling rivaroxaban (From Xarelto) Allergy Severe tongue Verified 01/04/25 11:02 swelling glimepiride Allergy Intermediate mouth Verified 01/04/25 11:02 blisters levofloxacin (From Levaquin) Allergy Intermediate leg pain Verified 01/04/25 11:02 dapagliflozin (From Farxiga) Allergy Unknown Rash Verified 01/04/25 11:02 azithromycin (From Zithromax) AdvReac Severe blisters Verified 01/04/25 11:02 metolazone AdvReac Severe Rash/Itchin Verified 01/04/25 11:02 g pravastatin AdvReac Intermediate itching Verified 01/04/25 11:02 Surgical History History of implantable cardiac defibrillator (ICD) Hx of arthroscopic knee surgery Hx of right cataract extraction Hx of left cataract extraction History of esophagogastroduodenoscopy (EGD) History of right-sided carotid endarterectomy History of electrophysiologic study History of left heart catheterization Status post mitral valve annuloplasty Hx of CABG (~11/14/09) Social History household members: none Smoking Status: Former smoker how long ago did patient quit smokin years ago alcohol intake: never substance use type: does not use caffeine: No what type of physical activity do you participate in: walking frequency: daily duration: 15-30 minutes/day seatbelt use: always do you feel safe at home: Yes ROS Constitutional Constitutional: Denies fatigue, fever(s), poor appetite, weight gain or weight loss Gastrointestinal Gastrointestinal: Denies belching, bloating, change in bowel habits, change in stool character, chewing difficulty, coffee ground emesis, constipation, cramping, diarrhea, dyspepsia, dysphagia, early satiety, excessive flatus, fecalincontinence, heartburn, hematemesis, hematochezia, hemorrhoids, loose stools, melena, nausea, odynophagia, rectal bleeding, tenesmus, vomiting or weight changes Physical Exam Const alert, oriented x3, no apparent distress and healthy appearing General Appearance: cooperative GI normal to inspection, nondistended, normoactive bowel sounds, soft to palpation,non-tender and non-distended Percussion: normal to percussion Rectal Exam: deferred Assessment & Plan Assessment/Plan (1) Gastric ulcer: PLAN: Assessment and Plan Assessment and Plan (1) Upper GI bleed: Status: Acute (2) Gastric ulcer: Status: Acute Orders: Orders CBC W/Diff, Automated 2 Weeks D64.9 - Anemia, unspecified, K25.9 - Gastric ulcer, unspecified as acute or chronic, without hemorrhage or perforation, K92.2- Gastrointestinal hemorrhage, unspecified Iron+Iron Binding Capacity 2 Weeks K25.9 - Gastric ulcer, unspecified as acute or chronic, without hemorrhage or perforation, K92.2 - Gastrointestinal hemorrhage, unspecified Medications: New pantoprazole take 30 minutes before breakfast and dinner 40 mg PO BID 180 tabs 1RF ferrous sulfate take one tablet every other day in the morning 325 mg PO QDAY 90 tabs 0RF ascorbate calcium (vitamin C) take once tablet every other day with Fe tablet 500 mg PO QDAY 90 tabs 1RF acetaminophen (Tylenol Extra Strength) 500 mg PO Q6H PRN 60 tabs 0RF back pain Plan 84-year-old male presents for follow-up post admission for GI bleed. He presented to the emergency department on 10/11 after experiencing 3 episodes of black stools with no associated abdominal pain. His past medical history is significant for paroxysmal atrial fibrillation on Eliquis and CABG with an AICD.EGD performed during admission revealed a normal esophagus, nonbleeding gastric ulcers with a visible vessel. His hemoglobin dropped from 13.3 on admission to 8.7 at discharge. Follow-up labs performed yesterday revealed a hemoglobin of 8.3. He resumed his Eliquis on October 15. He reports taking Debra extra strength back and body intermittently prior to admission for back pain. I have recommended he discontinue use and take acetaminophen as needed instead. He will increase pantoprazole to twice daily and repeat upper endoscopy in 12 weeks. I have also started him on iron every other day with vitamin C. He will repeat labs in 2 weeks. 01/09/25 1495 <Electronically signed by Checo Chavez DO> Cosigner Signature (if applicable): CC: Dr. Jose Enrique Finney MD; Checo Chavez DO~ Signed [facility] Work Phone: Reason for referral (narrative)No reason for referral information availableWKettering Health [facility] Work Phone: Summary Purpose Family History No Family History Records Found Relationship Condition Age at Onset Recorded Date/T jazmin Unknown Family History?No pe rtinent history Unknown March 20, 2018 9:47am Family History?No pe rtinent history Unknown November 12, 2018 3:57pm Relationship Condition Age at Onset Recorded Date/T jazmin Unknown Family History?No pertinent history Unkno wn November 12, 2018 3:57pm Family History?No pertinent history Unkno wn January 06, 2022 11:10am Relationship Condition Age at Onset Recorded Date/T jazmin Unknown Family History?No pertinent history Unkno wn November 12, 2018 2:57pm Family History?No pertinent history Unkno wn January 06, 2022 10:10am Advance Directives No Advanced Directives Records Found Advance Directive Response Recorded Date/ Time Advance Directives No June 10:13am Living Will Yes November 12, 2018 12:17pm Power of Picker/Puller Yes November 12 12:17pm Advance Directive Response Recorded Date/ Time Advance Directives No January 06 11:10am Living Will Yes January 06, 2022 1 1:10am Power of Picker/Puller Yes January 06, 2022 11:10am Advance Directive Response Recorded Date/ Time Advance Directives No January 06 10:10am Living Will Yes January 06, 2022 1 0:10am Power of Picker/Puller Yes January 06, 2022 10:10am Advance Directive Response Recorded Date/ Time Living Will Yes October 07, 2024 8:23pm Power of Picker/Puller Yes October 07 8:23pm Name of Medical Power of Picker/Puller Geovany Hernández October 07, 2024 8:23pm Advance Directives No January 06 11:10am Advance Directive Response Recorded Date/ Time Living Will Yes October 08, 2024 12:00am Power of Picker/Puller Yes October 08 12:00am Name of Medical Power of Picker/Puller Geovany Hernández October 08, 2024 12:00am Advance Directives No January 06 11:10am Advance Directive Response Recorded Date/ Time Living Will Yes October 08, 2024 12:00am Power of Picker/Puller Yes October 08 12:00am Name of Medical Power of Picker/Puller Geovany Hernández October 08, 2024 12:00am Living Will Yes October 11, 2024 8:53pm Power of Picker/Puller Yes October 11 8:53pm Name of Medical Power of Picker/Puller Son October 11, 2024 8:53pm Advance Directives No January 06 11:10am Advance Directive Response Recorded Date/ Time Living Will Yes October 08, 2024 12:00am Power of Picker/Puller Yes October 08 12:00am Name of Medical Power of Picker/Puller Geovany Hernández October 08, 2024 12:00am Living Will Yes October 12, 2024 12:00am Power of Picker/Puller Yes October 12 12:00am Name of Medical Power of Picker/Puller Son October 12, 2024 12:00am Advance Directives No January 06 11:10am Advance Directive Response Recorded Date/ Time Living Will Yes October 08, 2024 12:00am Do you have a Healthcare Power of Picker/Puller? Yes October 08, 2024 12:00am Name of Medical Power of Picker/Puller Geovany Hernández October 08, 2024 12:00am Living Will Yes October 12, 2024 12:00am Do you have a Healthcare Power of Picker/Puller? Yes October 12, 2024 12:00am Name of Medical Power of Picker/Puller Son October 12, 2024 12:00am Advance Directives No January 06 11:10am Advance Directive Response Recorded Date/ Time Living Will Yes October 08, 2024 12:00am Do you have a Healthcare Power of Picker/Puller? Yes October 08, 2024 12:00am Name of Medical Power of Picker/Puller Geovany Hernández October 08, 2024 12:00am Do you have a Healthcare Power of Picker/Puller? Yes January 04, 2025 11:06am Living Will Yes October 12, 2024 12:00am Do you have a Healthcare Power of Picker/Puller? Yes October 12, 2024 12:00am Name of Medical Power of Picker/Puller Son October 12, 2024 12:00am Advance Directives No January 06 11:10am Advance Directive Response Recorded Date/ Time Do you have a Healthcare Power of Picker/Puller? Yes January 04, 2025 11:06am Advance Directives No January 06 11:10am Hospital Course Note Send Summary: Discharge Summ jann Providers: Provider RoleProvider Name David Back Christina ConsultingOchenjele, George AttendingMcQuay, Nathaniel Note Recipients: ZelayaYoana MD McQuay, Nathaniel, MD Ochenjele, George, MD Discharge: Summary: Admission Date: .27-Mar-2020 00:59:00 Discharge Date: 03-Apr-2020 Attending Physician at Discharge: Tameka Kahn Admission Reason: Odontoid fracture(1) Final Discharge Diagnoses: Odontoid fracture Procedures: Date: 28-Mar-2020 12:40:00 Procedure Name: 1) R CMN for IT Fracture 2) R ORIF Femoral Shaft with Cerclage Fixation 3) R Femur Removal of Traction Pin Condition at Discharge: Satisfactory Disposition at Discharge: Intermediate Care Facility Vital Signs: T PRBPSpO2 [id number]% Date/Time04/03 11: 11: 11: 11: 11:30 Range(36.4C - 36.8C ) (56 - 78 ) (17 - 19 ) (108 - 134 )/ (58 - 76 ) (96% - 100% ) Physical Exam: Neurological: Awake, alert, conversive Cardiovascular: regular rate (more content not included)... Note PROCEDURE DETAILS Preoperati ve Diagnosis: 1) Right Intertrochanteric Femur Fracture 2) Right Femoral Shaft Fracture Postoperative Diagnosis: 1) Right Intertrochanteric Femur Fracture 2) Right Femoral Shaft Fracture Surgeon: Korey Valverde MD Resident/Fellow/Other Manager Planning: Joni Toth MD (PGY-V) Haley Fernandez MD (PGY-IV) Lamont Galvin MD (PGY-I) Procedure: 1) R CMN for IT Fracture 2) R ORIF Femoral Shaft with Cerclage Fixation 3) R Femur Removal of Traction Pin Anesthesia: General Estimated Blood Loss: 850 mL Blood Replaced: 2u prbcs, 1u ffp Findings: See operative report Complications: None Drains and/or Catheters: 1 valdez catheter Additional Details: WBAT RLE ADAT to regular diet from ortho perspective Complete 24 hours of laya-operative antibiotics DVT PPX: SCDs, early ambulation and recommend chemoppx per primary team PT/OT Patient Returned To/Condition: TSICU/Stable Operative Report: Patient Name: Axel DXXXII Trauma (Juan David Hernández, ) (more content not included)... Procedure Findings Note PROCEDURE DETAILS Preoperati ve Diagnosis: 1) Right Intertrochanteric Femur Fracture 2) Right Femoral Shaft Fracture Postoperative Diagnosis: 1) Right Intertrochanteric Femur Fracture 2) Right Femoral Shaft Fracture Surgeon: Korey Valverde MD Resident/Fellow/Other Manager Planning: Joni Toth MD (PGY-V) Haley Fernandez MD (PGY-IV) Lamont Galvin MD (PGY-I) Procedure: 1) R CMN for IT Fracture 2) R ORIF Femoral Shaft with Cerclage Fixation 3) R Femur Removal of Traction Pin Anesthesia: General Estimated Blood Loss: 850 mL Blood Replaced: 2u prbcs, 1u ffp Findings: See operative report Complications: None Drains and/or Catheters: 1 valdez catheter Additional Details: WBAT RLE ADAT to regular diet from ortho perspective Complete 24 hours of laya-operative antibiotics DVT PPX: SCDs, early ambulation and recommend chemoppx per primary team PT/OT Patient Returned To/Condition: TSICU/Stable Operative Report: Patient Name: Axel RICHARDS Trauma (Juan David Hernández, ) (more content not included)... 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 INCREASED SOB Reason for Visit ICD (implantable car dioverter-defibrillator) in place Ischemic cardiomyopathy Paroxysmal atrial fibrillation ICD (implantable cardioverter-defibrillator) in place Ischemic cardiomyopathy Paroxysmal atrial fibrillation ICD (implantable cardioverter-defibrillator) in place Ischemic cardiomyopathy Paroxysmal atrial fibrillation Chief Complaint 3 mos remote [employer]ER-D f /u REMOTE CHECK INCREASED SOB Amb Documentation ECHO FU (OK PER PFM) Reason for Visit ICD (implantable car dioverter-defibrillator) in place Ischemic cardiomyopathy Paroxysmal atrial fibrillation ICD (implantable cardioverter-defibrillator) in place Ischemic cardiomyopathy Paroxysmal atrial fibrillation Aortic valve stenosis, nonrheumatic ICD (implantable cardioverter-defibrillator) in place [id number] Essential (primary) hypertension Ischemic cardiomyopathy Mixed hyperlipidemia Paroxysmal atrial fibrillation Status post mitral valve annuloplasty Chief Complaint Amb Documentation ECHO FU (OK PER PFM) 3 mos remote ICD f/u 3 MOS REMOTE ICD F/U CAROTID ARTERY STENOSIS Reason for Visit Aortic valve stenosi s, nonrheumatic ICD (implantable cardioverter-defibrillator) in place [id number] Essential (primary) hypertension Ischemic cardiomyopathy Mixed hyperlipidemia Paroxysmal atrial fibrillation Status post mitral valve annuloplasty ICD (implantable cardioverter-defibrillator) in place History of electrophysiologic study Ischemic cardiomyopathy NSVT (nonsustained ventricular tachycardia) Paroxysmal atrial fibrillation ICD (implantable cardioverter-defibrillator) in place History of electrophysiologic study Ischemic cardiomyopathy Paroxysmal atrial fibrillation Chief Complaint 3 mos remote ICD f/u 3 MOS REMOTE ICD F/U CAROTID ARTERY STENOSIS remote ICD f/u wound wound wound Reason for Visit ICD (implantable car dioverter-defibrillator) in place History of electrophysiologic study Ischemic cardiomyopathy NSVT (nonsustained ventricular tachycardia) Paroxysmal atrial fibrillation ICD (implantable cardioverter-defibrillator) in place History of electrophysiologic study Ischemic cardiomyopathy Paroxysmal atrial fibrillation ICD (implantable cardioverter-defibrillator) in place Ischemic cardiomyopathy Decubitus ulcer of right foot, stage 2 Diabetic foot ulcer associated with type 2 diabetes mellitus Unspecified open wound of other part of head, initial encounter Chief Complaint 3 mos remote ICD f/u 3 MOS REMOTE ICD F/U CAROTID ARTERY STENOSIS remote ICD f/u wound wound wound wound wound wound ICD CHECK PER STEPHANIE / 1:30 w MMM 6 M FU/ Stephanie at 1pm wound wound wound Reason for Visit ICD (implantable car dioverter-defibrillator) in place History of electrophysiologic study Ischemic cardiomyopathy NSVT (nonsustained ventricular tachycardia) Paroxysmal atrial fibrillation ICD (implantable cardioverter-defibrillator) in place History of electrophysiologic study Ischemic cardiomyopathy Paroxysmal atrial fibrillation ICD (implantable cardioverter-defibrillator) in place Ischemic cardiomyopathy Decubitus ulcer of right foot, stage 2 Diabetic foot ulcer associated with type 2 diabetes mellitus Unspecified open wound of other part of head, initial encounter ICD (implantable cardioverter-defibrillator) in place Ischemic cardiomyopathy NSVT (nonsustained ventricular tachycardia) Paroxysmal atrial fibrillation ICD (implantable cardioverter-defibrillator) in place Right carotid bruit [id number] Essential (primary) hypertension Ischemic cardiomyopathy Mixed hyperlipidemia Paroxysmal atrial fibrillation Status post mitral valve annuloplasty Decubitus ulcer of right foot, stage 2 Diabetic foot ulcer associated with type 2 diabetes mellitus Unspecified open wound of other part of head, initial encounter Chief Complaint 3 MOS REMOTE ICD F/U CAROTID ARTERY STENOSIS remote ICD f/u wound wound wound wound wound wound ICD CHECK PER STEPHANIE / 1:30 w MMM 6 M FU/ Stephanie at 1pm wound wound wound wound wound Reason for Visit ICD (implantable car dioverter-defibrillator) in place History of electrophysiologic study Ischemic cardiomyopathy Paroxysmal atrial fibrillation ICD (implantable cardioverter-defibrillator) in place Ischemic cardiomyopathy Decubitus ulcer of right foot, stage 2 Diabetic foot ulcer associated with type 2 diabetes mellitus Unspecified open wound of other part of head, initial encounter ICD (implantable cardioverter-defibrillator) in place Ischemic cardiomyopathy NSVT (nonsustained ventricular tachycardia) Paroxysmal atrial fibrillation ICD (implantable cardioverter-defibrillator) in place Right carotid bruit [id number] Essential (primary) hypertension Ischemic cardiomyopathy Mixed hyperlipidemia Paroxysmal atrial fibrillation Status post mitral valve annuloplasty Decubitus ulcer of right foot, stage 2 Diabetic foot ulcer associated with type 2 diabetes mellitus Unspecified open wound of other part of head, initial encounter Decubitus ulcer of right foot, stage 2 Diabetic foot ulcer associated with type 2 diabetes mellitus Unspecified open wound of other part of head, initial encounter Chief Complaint CAROTID ARTERY STENO SIS remote ICD f/u wound wound wound wound wound wound ICD CHECK PER STEPHANIE / 1:30 w MMM 6 M FU/ Stephanie at 1pm wound wound wound wound wound wound wound wound Reason for Visit ICD (implantable car dioverter-defibrillator) in place Ischemic cardiomyopathy Decubitus ulcer of right foot, stage 2 Diabetic foot ulcer associated with type 2 diabetes mellitus Unspecified open wound of other part of head, initial encounter ICD (implantable cardioverter-defibrillator) in place Ischemic cardiomyopathy NSVT (nonsustained ventricular tachycardia) Paroxysmal atrial fibrillation ICD (implantable cardioverter-defibrillator) in place Right carotid bruit [id number] Essential (primary) hypertension Ischemic cardiomyopathy Mixed hyperlipidemia Paroxysmal atrial fibrillation Status post mitral valve annuloplasty Decubitus ulcer of right foot, stage 2 Diabetic foot ulcer associated with type 2 diabetes mellitus Unspecified open wound of other part of head, initial encounter Decubitus ulcer of right foot, stage 2 Diabetic foot ulcer associated with type 2 diabetes mellitus Unspecified open wound of other part of head, initial encounter Chief Complaint wound wound wound wound wound wound 3 mos remote ICD f/u ICD CHECK PER STEPHANIE / 1:30 w MMM 6 M FU/ Stephanie at 1pm wound wound wound wound wound wound wound wound wound wound wound wound wound wound Reason for Visit Decubitus ulcer of r ight foot, stage 2 Diabetic foot ulcer associated with type 2 diabetes mellitus Unspecified open wound of other part of head, initial encounter ICD (implantable cardioverter-defibrillator) in place History of electrophysiologic study Ischemic cardiomyopathy NSVT (nonsustained ventricular tachycardia) Paroxysmal atrial fibrillation ICD (implantable cardioverter-defibrillator) in place Ischemic cardiomyopathy NSVT (nonsustained ventricular tachycardia) Paroxysmal atrial fibrillation ICD (implantable cardioverter-defibrillator) in place Right carotid bruit [id number] Essential (primary) hypertension Ischemic cardiomyopathy Mixed hyperlipidemia Paroxysmal atrial fibrillation Status post mitral valve annuloplasty Decubitus ulcer of right foot, stage 2 Diabetic foot ulcer associated with type 2 diabetes mellitus Unspecified open wound of other part of head, initial encounter Decubitus ulcer of right foot, stage 2 Diabetic foot ulcer associated with type 2 diabetes mellitus Unspecified open wound of other part of head, initial encounter Decubitus ulcer of right foot, stage 2 Diabetic foot ulcer associated with type 2 diabetes mellitus Unspecified open wound of other part of head, initial encounter Decubitus ulcer of right foot, stage 2 Diabetic foot ulcer associated with type 2 diabetes mellitus Unspecified open wound of other part of head, initial encounter Chief Complaint wound wound 3 mos remote ICD f/u ICD CHECK PER STEPHANIE / 1:30 w MMM 6 M FU/ Stephanie at 1pm wound wound wound wound wound wound wound wound wound wound wound wound wound wound EORDER Reason for Visit ICD (implantable car dioverter-defibrillator) in place History of electrophysiologic study Ischemic cardiomyopathy NSVT (nonsustained ventricular tachycardia) Paroxysmal atrial fibrillation ICD (implantable cardioverter-defibrillator) in place Ischemic cardiomyopathy NSVT (nonsustained ventricular tachycardia) Paroxysmal atrial fibrillation ICD (implantable cardioverter-defibrillator) in place Right carotid bruit [id number] Essential (primary) hypertension Ischemic cardiomyopathy Mixed hyperlipidemia Paroxysmal atrial fibrillation Status post mitral valve annuloplasty Decubitus ulcer of right foot, stage 2 Diabetic foot ulcer associated with type 2 diabetes mellitus Unspecified open wound of other part of head, initial encounter Decubitus ulcer of right foot, stage 2 Diabetic foot ulcer associated with type 2 diabetes mellitus Unspecified open wound of other part of head, initial encounter Decubitus ulcer of right foot, stage 2 Diabetic foot ulcer associated with type 2 diabetes mellitus Unspecified open wound of other part of head, initial encounter Decubitus ulcer of right foot, stage 2 Diabetic foot ulcer associated with type 2 diabetes mellitus Unspecified open wound of other part of head, initial encounter Chief Complaint EORDER Pacer Check Remote 6 M FU Reason for Visit ICD (implantable car dioverter-defibrillator) in place Right carotid bruit [id number] Essential (primary) hypertension Ischemic cardiomyopathy Mixed hyperlipidemia Paroxysmal atrial fibrillation Status post mitral valve annuloplasty Chief Complaint Pacer Check Remote 6 M FU Pacer Check Remote CAROTID BRUIT Reason for Visit ICD (implantable car dioverter-defibrillator) in place Right carotid bruit [id number] Essential (primary) hypertension Ischemic cardiomyopathy Mixed hyperlipidemia Paroxysmal atrial fibrillation Status post mitral valve annuloplasty Chief Complaint Admit Date Pacer Check Remote June 25, 2024 1:23am 9 M FU July 11, 2024 10:39am Pacer Check Remote August 03, 2024 1: 09am INT LABS August 13, 2024 1 0:18am Pacer Check Remote September 04, 2024 1 2:29pm Pacer Check Remote September 11, 2024 1:57am Pacer Check Remote September 24, 2024 4:38am Pacer Check Remote September 25, 2024 9:48am defib October 07, 2024 8:06 pm Reason for Visit Admit Date Aortic valve stenosis, nonrheumatic Dece mber 2023 10:39am ICD (implantable cardioverter-defibrilla tor) in place July 11, 2024 10:39am 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 July 11, 2024 10:39am Essential (primary) hypertension Decembe r 2023 10:39am Hx of CABG July 11, 2024 10:39am Ischemic cardiomyopathy July 11, 2 024 10:39am 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 D ecember 2023 10:39am Paroxysmal atrial fibrillation July 11, 2024 10:39am Type 2 diabetes mellitus without complic ations July 11, 2024 10:39am Chief Complaint Admit Date Pacer Check Remote June 25, 2024 1:23am 9 M FU July 11, 2024 10:39am Pacer Check Remote August 03, 2024 1: 09am INT LABS August 13, 2024 1 0:18am Pacer Check Remote September 04, 2024 1 2:29pm Pacer Check Remote September 11, 2024 1:57am Pacer Check Remote September 24, 2024 4:38am Pacer Check Remote September 25, 2024 9:48am defib October 07, 2024 11:1 7pm ADULT FFT LISA HYPOKALEMIA October 07 11:21pm Reason for Visit Admit Date Aortic valve stenosis, nonrheumatic Dece mber 2023 10:39am ICD (implantable cardioverter-defibrilla tor) in place July 11, 2024 10:39am 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 July 11, 2024 10:39am Essential (primary) hypertension [facility] 2023 10:39am Hx of CABG July 11, 2024 10:39am Ischemic cardiomyopathy July 11, 024 10:39am assisted current use of 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 D ecember 2023 10:39am Paroxysmal atrial fibrillation July 11, 2024 10:39am Type 2 diabetes mellitus without complic ations July 11, 2024 10:39am Acute hypokalemia October 07, 2024 11:2 1pm LISA (acute kidney injury) October 07 11:21pm Declining functional status October 07, 2 025 11:21pm Chief Complaint Admit Date Pacer Check Remote June 25, 2024 1:23am 9 M FU July 11, 2024 10:39am Pacer Check Remote August 03, 2024 1: 09am INT LABS August 13, 2024 1 0:18am Pacer Check Remote September 04, 2024 1 2:29pm Pacer Check Remote September 11, 2024 1:57am Pacer Check Remote September 24, 2024 4:38am Pacer Check Remote September 25, 2024 9:48am defib October 07, 2024 11:1 7pm ADULT FFT LISA HYPOKALEMIA October 07 11:21pm Pacer Check Remote October 08, 2024 2:2 6am ADULT FFT LISA HYPOKALEMIA October 08 4:32pm dizzy October 11, 2024 11: 06pm Reason for Visit Admit Date Aortic valve stenosis, nonrheumatic Dece mber 2023 10:39am ICD (implantable cardioverter-defibrilla tor) in place July 11, 2024 10:39am 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 July 11, 2024 10:39am Essential (primary) hypertension Decembe r 2023 10:39am Hx of CABG July 11, 2024 10:39am Ischemic cardiomyopathy July 11, 024 10:39am assisted current use of 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 D ecember 2023 10:39am Paroxysmal atrial fibrillation July 11, 2024 10:39am Type 2 diabetes mellitus without complic ations July 11, 2024 10:39am Acute hypokalemia October 07, 2024 11:2 1pm LISA (acute kidney injury) October 07 11:21pm Declining functional status October 07, 2 025 11:21pm Chronic anticoagulation October 11, 2024 11:06pm GI bleed October 11, 2024 11: 06pm Orthostasis October 11, 2024 11: 06pm Chief Complaint Admit Date Pacer Check Remote June 25, 2024 1:23am 9 M FU July 11, 2024 10:39am Pacer Check Remote August 03, 2024 1: 09am INT LABS August 13, 2024 1 0:18am Pacer Check Remote September 04, 2024 1 2:29pm Pacer Check Remote September 11, 2024 1:57am Pacer Check Remote September 24, 2024 4:38am Pacer Check Remote September 25, 2024 9:48am defib October 07, 2024 11:1 7pm ADULT FFT LISA HYPOKALEMIA October 07 11:21pm Pacer Check Remote October 08, 2024 2:2 6am ADULT FFT LISA HYPOKALEMIA October 08 4:32pm UGIB WITH MELENA & SEVERE HYPOTENSION WI TH LISA October 11, 2024 11:32pm UGIB WITH MELENA & SEVERE HYPOTENSION WI TH LISA October 12, 2024 9:00am UGIB WITH MELENA & SEVERE HYPOTENSION WI TH LISA October 13, 2024 1:11pm Reason for Visit Admit Date Aortic valve stenosis, nonrheumatic Dece mber 2023 10:39am ICD (implantable cardioverter-defibrilla tor) in place July 11, 2024 10:39am 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 July 11, 2024 10:39am Essential (primary) hypertension Decembe r 2023 10:39am Hx of CABG July 11, 2024 10:39am Ischemic cardiomyopathy July 11 024 10:39am assisted current use of 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 D ecember 2023 10:39am Paroxysmal atrial fibrillation July 11, 2024 10:39am Type 2 diabetes mellitus without complic ations July 11, 2024 10:39am Acute hypokalemia October 07, 2024 11:2 1pm LISA (acute kidney injury) October 07 11:21pm Declining functional status October 07 025 11:21pm LISA (acute kidney injury) October 11 11:32pm Chronic anticoagulation October 11, 2024 11:32pm Elevated BUN October 11, 2024 11: 32pm GI bleed October 11, 2024 11: 32pm Melanotic stools October 11, 2024 11: 32pm Orthostasis October 11, 2024 11: 32pm Severe hypotension October 11, 2024 11: 32pm Chronic kidney disease (CKD), stage II ( mild) October 11, 2024 11:32pm Chief Complaint Admit Date Pacer Check Remote June 25, 2024 1:23am 9 M FU July 11, 2024 10:39am Pacer Check Remote August 03, 2024 1: 09am INT LABS August 13, 2024 1 0:18am Pacer Check Remote September 04, 2024 1 2:29pm Pacer Check Remote September 11, 2024 1:57am Pacer Check Remote September 24, 2024 4:38am Pacer Check Remote September 25, 2024 9:48am defib October 07, 2024 11:1 7pm ADULT FFT LISA HYPOKALEMIA October 07 11:21pm Pacer Check Remote October 08, 2024 2:2 6am ADULT FFT LISA HYPOKALEMIA October 08 4:32pm UGIB WITH MELENA & SEVERE HYPOTENSION WI TH LISA October 11, 2024 11:32pm UGIB WITH MELENA & SEVERE HYPOTENSION WI TH LISA October 12, 2024 9:00am UGIB WITH MELENA & SEVERE HYPOTENSION WI TH LISA October 13, 2024 1:11pm Hospital October 17, 2024 1:3 6pm Reason for Visit Admit Date Aortic valve stenosis, nonrheumatic Dece mber 2023 10:39am ICD (implantable cardioverter-defibrilla tor) in place July 11, 2024 10:39am 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 July 11, 2024 10:39am Essential (primary) hypertension Decembe r 2023 10:39am Hx of CABG July 11, 2024 10:39am Ischemic cardiomyopathy July 11, 024 10:39am assisted current use of 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 D ecember 2023 10:39am Paroxysmal atrial fibrillation July 11, 2024 10:39am Type 2 diabetes mellitus without complic ations July 11, 2024 10:39am Acute hypokalemia October 07, 2024 11:2 1pm LISA (acute kidney injury) October 07 11:21pm Declining functional status October 07, 025 11:21pm Chronic anticoagulation October 11, 2024 11:32pm Elevated BUN October 11, 2024 11: 32pm GI bleed October 11, 2024 11: 32pm Melanotic stools October 11, 2024 11: 32pm Orthostasis October 11, 2024 11: 32pm Severe hypotension October 11, 2024 11: 32pm Chronic kidney disease (CKD), stage II ( mild) October 11, 2024 11:32pm LISA (acute kidney injury) October 11 11:32pm Gastric ulcer October 17, 2024 1:3 6pm Upper GI bleed October 17, 2024 1:3 6pm Chief Complaint Admit Date 9 M FU July 11, 2024 10:39am Pacer Check Remote August 03, 2024 1: 09am INT LABS August 13, 2024 1 0:18am Pacer Check Remote September 04, 2024 1 2:29pm Pacer Check Remote September 11, 2024 1:57am Pacer Check Remote September 24, 2024 4:38am Pacer Check Remote September 25, 2024 9:48am defib October 07, 2024 11:1 7pm ADULT FFT LISA HYPOKALEMIA October 07 11:21pm Pacer Check Remote October 08, 2024 2:2 6am ADULT FFT LISA HYPOKALEMIA October 08 4:32pm Pacer Check Remote October 10, 2024 3:3 9pm UGIB WITH MELENA & SEVERE HYPOTENSION WI TH LISA October 11, 2024 11:32pm UGIB WITH MELENA & SEVERE HYPOTENSION WI TH LISA October 12, 2024 9:00am UGIB WITH MELENA & SEVERE HYPOTENSION WI TH LISA October 13, 2024 1:11pm Hospital October 17, 2024 1:3 6pm Chief Complaint Admit Date Pacer Check Remote August 03, 2024 1: 09am INT LABS August 13, 2024 1 0:18am Pacer Check Remote September 04, 2024 1 2:29pm Pacer Check Remote September 11, 2024 1:57am Pacer Check Remote September 24, 2024 4:38am Pacer Check Remote September 25, 2024 9:48am defib October 07, 2024 11:1 7pm ADULT FFT LISA HYPOKALEMIA October 07 11:21pm Pacer Check Remote October 08, 2024 2:2 6am ADULT FFT LISA HYPOKALEMIA October 08 4:32pm Pacer Check Remote October 10, 2024 3:3 9pm UGIB WITH MELENA & SEVERE HYPOTENSION WI TH LISA October 11, 2024 11:32pm UGIB WITH MELENA & SEVERE HYPOTENSION WI TH LISA October 12, 2024 9:00am UGIB WITH MELENA & SEVERE HYPOTENSION WI TH LISA October 13, 2024 1:11pm Hospital October 17, 2024 1:3 6pm 6 [facility] November 01, 2024 10:2 3am Reason for Visit Admit Date Acute hypokalemia October 07, 2024 11:2 1pm LISA (acute kidney injury) October 07 11:21pm Declining functional status October 07 2 025 11:21pm Chronic anticoagulation October 11, 2024 11:32pm Elevated BUN October 11, 2024 11: 32pm GI bleed October 11, 2024 11: 32pm Melanotic stools October 11, 2024 11: 32pm Orthostasis October 11, 2024 11: 32pm Severe hypotension October 11, 2024 11: 32pm Chronic kidney disease (CKD), stage II ( mild) October 11, 2024 11:32pm LISA (acute kidney injury) October 11 11:32pm Gastric ulcer October 17, 2024 1:3 6pm Upper GI bleed October 17, 2024 1:3 6pm Aortic valve stenosis, nonrheumatic Apri l 2024 10:23am ICD (implantable cardioverter-defibrilla tor) in place November 01, 2024 10:23am 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 November 01, 2024 10:23am Essential (primary) hypertension November 012024 10:23am Hx of CABG November 01, 2024 10:2 3am Ischemic cardiomyopathy November 01, 2024 10:23am 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 A pril 2024 10:23am Paroxysmal atrial fibrillation October 10:23am Chief Complaint Admit Date Pacer Check Remote September 04, 2024 1 2:29pm Pacer Check Remote September 11, 2024 1:57am Pacer Check Remote September 24, 2024 4:38am Pacer Check Remote September 25, 2024 9:48am defib October 07, 2024 11:1 7pm ADULT FFT LISA HYPOKALEMIA October 07 11:21pm Pacer Check Remote October 08, 2024 2:2 6am ADULT FFT LISA HYPOKALEMIA October 08 4:32pm Pacer Check Remote October 10, 2024 3:3 9pm UGIB WITH MELENA & SEVERE HYPOTENSION WI TH LISA October 11, 2024 11:32pm UGIB WITH MELENA & SEVERE HYPOTENSION WI TH LISA October 12, 2024 9:00am UGIB WITH MELENA & SEVERE HYPOTENSION WI TH LISA October 13, 2024 1:11pm Hospital FU October 17, 2024 1:3 6pm 6 M FU November 01, 2024 10:2 3am INT LAB ORDER December 06, 2024 2:48pm Chief Complaint Admit Date Pacer Check Remote September 04, 2024 1 2:29pm Pacer Check Remote September 11, 2024 1:57am Pacer Check Remote September 24, 2024 4:38am Pacer Check Remote September 25, 2024 9:48am defib October 07, 2024 11:1 7pm ADULT FFT LISA HYPOKALEMIA October 07 11:21pm Pacer Check Remote October 08, 2024 2:2 6am ADULT FFT LISA HYPOKALEMIA October 08 4:32pm Pacer Check Remote October 10, 2024 3:3 9pm UGIB WITH MELENA & SEVERE HYPOTENSION WI TH LISA October 11, 2024 11:32pm UGIB WITH MELENA & SEVERE HYPOTENSION WI TH LISA October 12, 2024 9:00am UGIB WITH MELENA & SEVERE HYPOTENSION WI TH LISA October 13, 2024 1:11pm Hospital October 17, 2024 1:3 6pm 6 M November 01, 2024 10:2 3am INT LAB ORDER December 06, 2024 2:48pm cough December 26, 2024 2:55p m Chief Complaint Admit Date Pacer Check Remote September 11, 2024 1:57am Pacer Check Remote September 24, 2024 4:38am Pacer Check Remote September 25, 2024 9:48am defib October 07, 2024 11:1 7pm ADULT FFT LISA HYPOKALEMIA October 07 11:21pm Pacer Check Remote October 08, 2024 2:2 6am ADULT FFT LISA HYPOKALEMIA October 08 4:32pm Pacer Check Remote October 10, 2024 3:3 9pm UGIB WITH MELENA & SEVERE HYPOTENSION WI TH LISA October 11, 2024 11:32pm UGIB WITH MELENA & SEVERE HYPOTENSION WI TH LISA October 12, 2024 9:00am UGIB WITH MELENA & SEVERE HYPOTENSION WI TH LISA October 13, 2024 1:11pm Hospital October 17, 2024 1:3 6pm 6 M November 01, 2024 10:2 3am INT LAB ORDER December 06, 2024 2:48pm cough December 26, 2024 2:55p m Reason for Visit Admit Date Acute hypokalemia October 07, 2024 11:2 1pm LISA (acute kidney injury) October 07 11:21pm Declining functional status October 07 025 11:21pm Chronic anticoagulation October 11, 2024 11:32pm Elevated BUN October 11, 2024 11: 32pm GI bleed October 11, 2024 11: 32pm Melanotic stools October 11, 2024 11: 32pm Orthostasis October 11, 2024 11: 32pm Severe hypotension October 11, 2024 11: 32pm Chronic kidney disease (CKD), stage II ( mild) October 11, 2024 11:32pm LISA (acute kidney injury) October 11 11:32pm Gastric ulcer October 17, 2024 1:3 6pm Upper GI bleed October 17, 2024 1:3 6pm Aortic valve stenosis, nonrheumatic Apri l 2024 10:23am ICD (implantable cardioverter-defibrilla tor) in place November 01, 2024 10:23am 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 November 01, 2024 10:23am Essential (primary) hypertension November 012024 10:23am Hx of CABG November 01, 2024 10:2 3am Ischemic cardiomyopathy November 01, 2024 10:23am 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 A pril 2024 10:23am Paroxysmal atrial fibrillation October 10:23am Gastric ulcer January 09, 2025 12:1 0pm Chief Complaint Admit Date Pacer Check Remote September 24, 2024 4:38am Pacer Check Remote September 25, 2024 9:48am defib October 07, 2024 11:1 7pm ADULT FFT LISA HYPOKALEMIA October 07 11:21pm Pacer Check Remote October 08, 2024 2:2 6am ADULT FFT LISA HYPOKALEMIA October 08 4:32pm Pacer Check Remote October 10, 2024 3:3 9pm UGIB WITH MELENA & SEVERE HYPOTENSION WI TH LISA October 11, 2024 11:32pm UGIB WITH MELENA & SEVERE HYPOTENSION WI TH LISA October 12, 2024 9:00am UGIB WITH MELENA & SEVERE HYPOTENSION WI TH LISA October 13, 2024 1:11pm Hospital FU October 17, 2024 1:3 6pm 6 M FU November 01, 2024 10:2 3am INT LAB ORDER December 06, 2024 2:48pm Pacer Check Remote December 24, 2024 3:33a m cough December 26, 2024 2:55p m Chief Complaint Admit Date defib October 07, 2024 11:1 7pm ADULT FFT LISA HYPOKALEMIA October 07 11:21pm Pacer Check Remote October 08, 2024 2:2 6am ADULT FFT LISA HYPOKALEMIA October 08 4:32pm Pacer Check Remote October 10, 2024 3:3 9pm UGIB WITH MELENA & SEVERE HYPOTENSION WI TH LISA October 11, 2024 11:32pm UGIB WITH MELENA & SEVERE HYPOTENSION WI TH LISA October 12, 2024 9:00am UGIB WITH MELENA & SEVERE HYPOTENSION WI TH LISA October 13, 2024 1:11pm Hospital FU October 17, 2024 1:3 6pm 6 M FU November 01, 2024 10:2 3am INT LAB ORDER December 06, 2024 2:48pm Pacer Check Remote December 24, 2024 3:33a m cough December 26, 2024 2:55p m LEFT KNEE January 28, 2025 1:39 pm Room 2 January 28, 2025 2:26 pm Reason for Visit Admit Date Acute hypokalemia October 07, 2024 11:2 1pm LISA (acute kidney injury) October 07 11:21pm Declining functional status October 07, 2 025 11:21pm Chronic anticoagulation October 11, 2024 11:32pm Elevated BUN October 11, 2024 11: 32pm GI bleed October 11, 2024 11: 32pm Melanotic stools October 11, 2024 11: 32pm Orthostasis October 11, 2024 11: 32pm Severe hypotension October 11, 2024 11: 32pm Chronic kidney disease (CKD), stage II ( mild) October 11, 2024 11:32pm LISA (acute kidney injury) October 11 11:32pm Gastric ulcer October 17, 2024 1:3 6pm Upper GI bleed October 17, 2024 1:3 6pm Aortic valve stenosis, nonrheumatic Apri l 2024 10:23am ICD (implantable cardioverter-defibrilla tor) in place November 01, 2024 10:23am 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 November 01, 2024 10:23am Essential (primary) hypertension November 012024 10:23am Hx of CABG November 01, 2024 10:2 3am Ischemic cardiomyopathy November 01, 2024 10:23am assisted current use of 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 A pril 2024 10:23am Paroxysmal atrial fibrillation October 10:23am Gastric ulcer January 09, 2025 12:1 0pm Left knee DJD January 28, 2025 1:39 pm Chief Complaint Admit Date defib October 07, 2024 11:1 7pm ADULT FFT LISA HYPOKALEMIA October 07 11:21pm Pacer Check Remote October 08, 2024 2:2 6am ADULT FFT LISA HYPOKALEMIA October 08 4:32pm Pacer Check Remote October 10, 2024 3:3 9pm UGIB WITH MELENA & SEVERE HYPOTENSION WI TH LISA October 11, 2024 11:32pm UGIB WITH MELENA & SEVERE HYPOTENSION WI TH LISA October 12, 2024 9:00am UGIB WITH MELENA & SEVERE HYPOTENSION WI TH LISA October 13, 2024 1:11pm Hospital FU October 17, 2024 1:3 6pm 6 M FU November 01, 2024 10:2 3am INT LAB ORDER December 06, 2024 2:48pm Pacer Check Remote December 24, 2024 3:33a m cough December 26, 2024 2:55p m LEFT KNEE January 28, 2025 1:39 pm Room 2 January 28, 2025 2:26 pm 4 M FU January 30, 2025 11:26 am Reason for Visit Admit Date Acute hypokalemia October 07, 2024 11:2 1pm LISA (acute kidney injury) October 07 11:21pm Declining functional status October 07, 025 11:21pm Chronic anticoagulation October 11, 2024 11:32pm Elevated BUN October 11, 2024 11: 32pm GI bleed October 11, 2024 11: 32pm Melanotic stools October 11, 2024 11: 32pm Orthostasis October 11, 2024 11: 32pm Severe hypotension October 11, 2024 11: 32pm Chronic kidney disease (CKD), stage II ( mild) October 11, 2024 11:32pm LISA (acute kidney injury) October 11 11:32pm Gastric ulcer October 17, 2024 1:3 6pm Upper GI bleed October 17, 2024 1:3 6pm Aortic valve stenosis, nonrheumatic Apri l 2024 10:23am ICD (implantable cardioverter-defibrilla tor) in place November 01, 2024 10:23am 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 November 01, 2024 10:23am Essential (primary) hypertension November 012024 10:23am Hx of CABG November 01, 2024 10:2 3am Ischemic cardiomyopathy November 01, 2024 10:23am 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 A pril 2024 10:23am Paroxysmal atrial fibrillation October 10:23am Gastric ulcer January 09, 2025 12:1 0pm Left knee DJD January 28, 2025 1:39 pm Aortic valve stenosis, nonrheumatic January 30, 2025 11:26am ICD (implantable cardioverter-defibrilla tor) in place January 30, 2025 11:26am 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 January 30, 2025 11:26am Essential (primary) hypertension January 11:26am Hx of CABG January 30, 2025 11:26 am Ischemic cardiomyopathy January 30, 2025 1 1:26am 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 J maya 2024 11:26am Paroxysmal atrial fibrillation January 30, 2025 11:26am Chief Complaint Admit Date 6 M FU November 01, 2024 10:2 3am INT LAB ORDER December 06, 2024 2:48pm Pacer Check Remote December 24, 2024 3:33a m cough December 26, 2024 2:55p m LEFT KNEE January 28, 2025 1:39 pm Room 2 January 28, 2025 2:26 pm 4 M FU January 30, 2025 11:26 am Reason for Visit Admit Date Aortic valve stenosis, nonrheumatic Apri l 2024 10:23am ICD (implantable cardioverter-defibrilla tor) in place November 01, 2024 10:23am 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 November 01, 2024 10:23am Essential (primary) hypertension November 012024 10:23am Hx of CABG November 01, 2024 10:2 3am Ischemic cardiomyopathy November 01, 2024 10:23am 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 A pril 2024 10:23am Paroxysmal atrial fibrillation October 10:23am Gastric ulcer January 09, 2025 12:1 0pm Left knee DJD January 28, 2025 1:39 pm Aortic valve stenosis, nonrheumatic January 30, 2025 11:26am ICD (implantable cardioverter-defibrilla tor) in place January 30, 2025 11:26am 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 January 30, 2025 11:26am Essential (primary) hypertension January 11:26am Hx of CABG January 30, 2025 11:26 am Ischemic cardiomyopathy January 30, 2025 1 1:26am assisted current use of 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 J maya 2024 11:26am Paroxysmal atrial fibrillation January 30, 2025 11:26am Chief Complaint Admit Date INT LAB ORDER December 06, 2024 2:48pm Pacer Check Remote December 24, 2024 3:33a m cough December 26, 2024 2:55p m LEFT KNEE January 28, 2025 1:39 pm Room 2 January 28, 2025 2:26 pm 4 M FU January 30, 2025 11:26 am Pacer Check Remote March 09, 2025 10: 56pm Reason for Visit Admit Date Gastric ulcer January 09, 2025 12:1 0pm Left knee DJD January 28, 2025 1:39 pm Aortic valve stenosis, nonrheumatic January 30, 2025 11:26am ICD (implantable cardioverter-defibrilla tor) in place January 30, 2025 11:26am 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 January 30, 2025 11:26am Essential (primary) hypertension January 11:26am Hx of CABG January 30, 2025 11:26 am Ischemic cardiomyopathy January 30, 2025 1 1:26am assisted current use of 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 J maya 2024 11:26am Paroxysmal atrial fibrillation January 30, 2025 11:26am Chief Complaint Admit Date INT LAB ORDER December 06, 2024 2:48pm Pacer Check Remote December 24, 2024 3:33a m cough December 26, 2024 2:55p m LEFT KNEE January 28, 2025 1:39 pm Room 2 January 28, 2025 2:26 pm 4 M FU January 30, 2025 11:26 am Pacer Check Remote March 09, 2025 10: 56pm Pacer Check Remote March 25, 2025 9: 16am Additional Source Comments (unrecognized sect ion and content) No Status Records FoundNo Status Records FoundNo Status Records FoundNo Status Records FoundNo Status Records FoundNo Status Records FoundNo Status Records Found INFORMATION SOURCE (unrecogn ized section and content) DATE CREATED AUTHOR 03/30/2020 [facility] DATE CREATED AUTHOR AUTHOR'S ORGANIZ ATION 05/09/2020 [facility] DATE CREATED AUTHOR AUTHOR'S ORGANIZ ATION 11/06/2020 [facility] DATE CREATED AUTHOR AUTHOR'S ORGANIZ ATION 12/24/2020 [facility] ([place]) DATE CREATED AUTHOR AUTHOR'S ORGANIZ ATION 09/20/2021 [facility] [place] DATE CREATED AUTHOR AUTHOR'S ORGANIZ ATION 01/22/2023 [facility] DATE CREATED AUTHOR AUTHOR'S ORGANIZ ATION 06/01/2025 [facility] Goals (unrecognized section and content) Goals may be documented in a n alternate sectionGoals may be documented in an alternate sectionGoals may be documented in an alternate sectionGoals may be documented in an alternate sectionGoals may be documented in an alternate sectionGoals may be documented in an alternate sectionGoals may be documented in an alternate sectionGoals may be documented in an alternate sectionGoals may be documented in an alternate sectionGoals may be documented in an alternate sectionGoals may be documented in an alternate sectionGoals may be documented in an alternate sectionGoals may be documented in an alternate sectionGoals may be documented in an alternate sectionGoals may be documented in an alternate sectionGoals may be documented in an alternate section Care Teams (unrecognized sec tion and content) Team Status: Active Member Role Status Dates Dr. Jose Enrique Finney MD Family Provider Active Dr. Jose Enrique Finney MD Primary Care Provider Active Team Status: Inactive Member Role Status Dates Dr. Jose Enrique Finney MD Primary Care Provider Active Natalie Hammonds Active Dr. Glenn Dowell MD Attending Provider, Referring Provider Active Team Status: Inactive Member Role Status Dates Dr. Jose Enrique Finney MD Primary Care Provider, Referr ing Provider Active Natalie Hammonds Attending Provider Active Team Status: Active Member Role Status Dates Dr. Jose Enrique Finney MD Primary Care Provider Active Dr. Glenn Dowell MD Attending Provider Active Team Status: Inactive Member Role Status Dates Dr. Jose Enrique Finney MD Primary Care Provider Active Dr. Glenn Dowell MD Attending Provider, Referring Provider Active Team Status: Inactive Member Role Status Dates Dr. Jose Enrique Finney MD Primary Care Provider, Referr ing Provider Active Dr. Glenn Dowell MD Attending Provider Active Team Status: Active Member Role Status Dates Dr. Jose Enrique Finney MD Primary Care Provider Active Harper Santiago Attending Provider Active Team Status: Inactive Member Role Status Dates Dr. Jose Enrique Finney MD Primary Care Pr ovider, Attending Provider, Referring Provider Active Team Status: Inactive Member Role Status Dates Dr. Jose Enrique Finney MD Primary Care Provider Active Natalie Hammonds Active Dr. Bhavesh Rios MD Attending Provider, Referring Pro vider Active Team Status: Inactive Member Role Status Dates Dr. Jose Enrique Finney MD Primary Care Provider Active Dr. Chandler Ly MD Attending Provider, Referring Provider Active Team Status: Active Member Role Status Dates Dr. Jose Enrique Finney MD Primary Care Provider Active Aliya Jones COMMERCIAL LOAN PROCESSOR, COMMERCIAL LOAN PROCESSOR-C Attending Provi matty, Referring Provider, Other Provider Active Team Status: Inactive Member Role Status Dates Dr. Jose Enrique Finney MD Primary Care Provider Active Aliya Jones COMMERCIAL LOAN PROCESSOR, COMMERCIAL LOAN PROCESSOR-C Attending Provider, Referring Provider Active Team Status: Inactive Member Role Status Dates Dr. Jose Enrique Finney MD Primary Care Provider, Referr ing Provider Active Harper Sanchez PA, PA Attending Provider Active Team Status: Active Member Role Status Dates Dr. Jose Enrique Finney MD Primary Care Provider, Attend ing Provider Active Team Status: Active Member Role Status Dates Dr. Jose Enrique Finney MD Primary Care Provider Active Aliya Jones COMMERCIAL LOAN PROCESSOR, COMMERCIAL LOAN PROCESSOR-C Attending Provider, Referring Provider Active Team Status: Inactive Member Role Status Dates Dr. Jose Enrique Finney MD Primary Care Provider, Attend ing Provider Active Team Status: Inactive Member Role Status Dates Dr. Jose Enrique Finney MD Primary Care Provider Active Dr. Bhavesh Rios MD Attending Provider Active Team Status: Inactive Member Role Status Dates Dr. Jose Enrique Finney MD Primary Care Provider Active Dr. Bhavesh Rios MD Attending Provider, Referring Pro vider Active Team Status: Active Member Role Status Dates Dr. Jose Enrique Finney MD Primary Care Provider Active Team Status: Inactive Member Role Status Dates Dr. Jose Enrique Finney MD Primary Care Provider Active Start: June 25, 2024 End: June 25, 2024 Dr. Bhavesh Rios MD Attending Provider Active S tart: June 25, 2024 End: June 25, 2024 Dr. Bhavesh Rios MD Referring Provider Active S tart: June 25, 2024 End: June 25, 2024 Team Status: Inactive Member Role Status Dates Dr. Jose Enrique Finney MD Primary Care Provider Active Start: July 11, 2024 End: July 11, 2024 Dr. Jose Enrique Finney MD Referring Provider Active Start: July 11, 2024 End: July 11, 2024 Dr. Ponce Kent MD Attending Provider Active Start: July 11, 2024 End: July 11, 2024 Team Status: Inactive Member Role Status Dates Dr. Jose Enrique Finney MD Primary Care Provider Active Start: August 03, 2024 End: August 03, 2024 Dr. Bhavesh Rios MD Attending Provider Active S tart: August 03, 2024 End: August 03, 2024 Dr. Bhavesh Rios MD Referring Provider Active S tart: August 03, 2024 End: August 03, 2024 Team Status: Inactive Member Role Status Dates Dr. Jose Enrique Finney MD Primary Care Provider Active Start: August 03, 2024 End: August 03, 2024 Harper DOYLE, PA Attending Provider Active Start: August 03, 2024 End: August 03, 2024 Harper Sanchez PA, PA Referring Provider Active Start: August 03, 2024 End: August 03, 2024 Team Status: Inactive Member Role Status Dates Dr. Jose Enrique Finney MD Primary Care Provider Active Start: August 13, 2024 End: August 13, 2024 Harper DOYLE PA Attending Provider Active Start: August 13, 2024 End: August 13, 2024 Harper DOYLE PA Referring Provider Active Start: August 13, 2024 End: August 13, 2024 Team Status: Inactive Member Role Status Dates Dr. Jose Enrique Finney MD Primary Care Provider Active Start: September 04, 2024 End: September 04, 2024 Dr. Bhavesh Rios MD Attending Provider Active S tart: September 04, 2024 End: September 04, 2024 Dr. Bhavesh Rios MD Referring Provider Active S tart: September 04, 2024 End: September 04, 2024 Team Status: Inactive Member Role Status Dates Dr. Jose Enrique Finney MD Primary Care Provider Active Start: September 11, 2024 End: September 11, 2024 Dr. Bhavesh Rios MD Attending Provider Active S tart: September 11, 2024 End: September 11, 2024 Dr. Bhavesh Rios MD Referring Provider Active S tart: September 11, 2024 End: September 11, 2024 Team Status: Inactive Member Role Status Dates Dr. Jose Enrique Finney MD Primary Care Provider Active Start: September 24, 2024 End: September 24, 2024 Dr. Bhavesh Rios MD Attending Provider Active S tart: September 24, 2024 End: September 24, 2024 Dr. Bhavesh Rios MD Referring Provider Active S tart: September 24, 2024 End: September 24, 2024 Team Status: Inactive Member Role Status Dates Dr. Jose Enrique Finney MD Primary Care Provider Active Start: September 25, 2024 End: September 25, 2024 Dr. Bhavesh Rios MD Attending Provider Active S tart: September 25, 2024 End: September 25, 2024 Team Status: Inactive Member Role Status Dates Dr. Jose Enrique Finney MD Primary Care Provider Active Start: October 07, 2024 End: October 07, 2024 Dr. Catracho Donohue MD Emergency Provider Active Start: October 07, 2024 End: October 07, 2024 Team Status: Active Member Role Status Dates Dr. Jose Enrique Finney MD Primary Care Provider Active Start: October 07, 2024 Dr. Catracho Donohue MD Emergency Provider Active Start: October 07, 2024 Dr. Kira Lerma MD Attending Provider Active Start: October 07, 2024 Team Status: Inactive Member Role Status Dates Dr. Jose Enrique Finney MD Primary Care Provider Active Start: October 07, 2024 End: October 08, 2024 Dr. Catracho Donohue MD Emergency Provider Active Start: October 07, 2024 End: October 08, 2024 Dr. Kira Lerma MD Admit Provider Active St art: October 07, 2024 End: October 08, 2024 Dr. Kira Lerma MD Other Provider Active St art: October 07, 2024 End: October 08, 2024 Dr. Bernabe Casey DO Attending Provider Active Start: October 07, 2024 End: October 08, 2024 Team Status: Inactive Member Role Status Dates Dr. Jose Enrique Finney MD Primary Care Provider Active Start: October 08, 2024 End: October 08, 2024 Dr. Bhavesh Rios MD Attending Provider Active S tart: October 08, 2024 End: October 08, 2024 Team Status: Active Member Role Status Dates Dr. Jose Enrique Finney MD Primary Care Provider Active Start: October 08, 2024 Dr. Catracho Donohue MD Emergency Provider Active Start: October 08, 2024 Dr. Kira Lerma MD Admit Provider Active St art: October 08, 2024 Dr. Kira Lerma MD Other Provider Active St art: October 08, 2024 Dr. Bernabe Casey DO Attending Provider Active Start: October 08, 2024 Dr. Bernabe Casey DO Other Provider Active S tart: October 08, 2024 Team Status: Active Member Role Status Dates Dr. Jose Enrique Finney MD Primary Care Provider Active Start: October 11, 2024 Dr. Jose Enrique Finney MD Attending Provider Active Start: October 11, 2024 Dr. Jose Enrique Finney MD Referring Provider Active Start: October 11, 2024 Team Status: Active Member Role Status Dates Dr. Jose Enrique Finney MD Primary Care Provider Active Start: October 11, 2024 Dr. Fei Easton DO Referring Provider Active Start : October 11, 2024 Dr. Fei Easton DO Emergency Provider Active Start : October 11, 2024 Dr. Germán Landeros DO Admit Provider Active Start: October 11, 2024 Dr. Germán Landeros DO Attending Provider Active Start: October 11, 2024 Team Status: Inactive Member Role Status Dates Dr. Jose Enrique Finney MD Primary Care Provider Active Start: October 11, 2024 End: October 13, 2024 Dr. Fei Easton DO Referring Provider Active Start : October 11, 2024 End: October 13, 2024 Dr. Fei Easton DO Emergency Provider Active Start : October 11, 2024 End: October 13, 2024 Dr. Germán Landeros DO Admit Provider Active Start: October 11, 2024 End: October 13, 2024 Dr. Germán Landeros DO Other Provider Active Start: October 11, 2024 End: October 13, 2024 Dr. García Cabezas MD Attending Provider Active Start: October 11, 2024 End: October 13, 2024 Team Status: Active Member Role Status Dates Dr. Jose Enrique Finney MD Primary Care Provider Active Start: October 12, 2024 Dr. Fei Easotn DO Referring Provider Active Start : October 12, 2024 Dr. Fei Easton DO Emergency Provider Active Start : October 12, 2024 Dr. Germán Landeros DO Admit Provider Active Start: October 12, 2024 Dr. Germán Landeros DO Other Provider Active Start: October 12, 2024 Dr. García Cabezas MD Attending Provider Active Start: October 12, 2024 Dr. García Cabezas MD Other Provider Active Start: October 12, 2024 Team Status: Active Member Role Status Dates Dr. Jose Enrique Finney MD Primary Care Provider Active Start: October 12, 2024 Dr. Checo Chavez DO Attending Provider Active Start: October 12, 2024 Team Status: Active Member Role Status Dates Dr. Jose Enrique Finney MD Primary Care Provider Active Start: October 13, 2024 Dr. Fei Easton DO Referring Provider Active Start : October 13, 2024 Dr. Fei Easton DO Emergency Provider Active Start : October 13, 2024 Dr. Germán Landeros DO Admit Provider Active Start: October 13, 2024 Dr. Germán Landeros DO Other Provider Active Start: October 13, 2024 Dr. García Cabezas MD Attending Provider Active Start: October 13, 2024 Dr. García Cabezas MD Other Provider Active Start: October 13, 2024 Team Status: Inactive Member Role Status Dates Dr. Jose Enrique Finney MD Primary Care Provider Active Start: October 08, 2024 End: October 08, 2024 Dr. Bhavesh Rios MD Attending Provider Active S tart: October 08, 2024 End: October 08, 2024 Dr. Bhavesh Rios MD Referring Provider Active S tart: October 08, 2024 End: October 08, 2024 Team Status: Inactive Member Role Status Dates Dr. Jose Enrique Finney MD Primary Care Provider Active Start: October 11, 2024 End: October 11, 2024 Dr. Jose Enrique Finney MD Attending Provider Active Start: October 11, 2024 End: October 11, 2024 Dr. Jose Enrique Finney MD Referring Provider Active Start: October 11, 2024 End: October 11, 2024 Team Status: Active Member Role Status Dates Dr. Jose Enrique Finney MD Primary Care Provider Active Start: October 12, 2024 Dr. Fei Easton DO Emergency Provider Active Start : October 12, 2024 Dr. Germán Landeros DO Admit Provider Active Start: October 12, 2024 Dr. Germán Landeros DO Other Provider Active Start: October 12, 2024 Dr. García Cabezas MD Attending Provider Active Start: October 12, 2024 Dr. García Cabezas MD Other Provider Active Start: October 12, 2024 Team Status: Active Member Role Status Dates Dr. Jose Enrique Finney MD Primary Care Provider Active Start: October 12, 2024 Dr. Checo Chavez DO Attending Provider Active Start: October 12, 2024 Dr. García Cabezas MD Referring Provider Active Start: October 12, 2024 Team Status: Active Member Role Status Dates Dr. Jose Enrique Finney MD Primary Care Provider Active Start: October 13, 2024 Dr. Fei Easton DO Emergency Provider Active Start : October 13, 2024 Dr. Germán Landeros DO Admit Provider Active Start: October 13, 2024 Dr. Germán Landeros DO Other Provider Active Start: October 13, 2024 Dr. García Cabezas MD Attending Provider Active Start: October 13, 2024 Dr. García Cabezas MD Other Provider Active Start: October 13, 2024 Team Status: Active Member Role Status Dates Dr. Jose Enrique Finney MD Primary Care Provider Active Start: October 16, 2024 Dr. Jose Enrique Finney MD Attending Provider Active Start: October 16, 2024 Dr. Jose Enrique Finney MD Referring Provider Active Start: October 16, 2024 Team Status: Inactive Member Role Status Dates Dr. Jose Enrique Finney MD Primary Care Provider Active Start: October 17, 2024 End: October 17, 2024 Dr. Jose Enrique Finney MD Referring Provider Active Start: October 17, 2024 End: October 17, 2024 MITESH Heredia Attending Provider Active Start: October 17, 2024 End: October 17, 2024 Team Status: Inactive Member Role Status Dates Dr. Jose Enrique Finney MD Primary Care Provider Active Start: October 10, 2024 End: October 10, 2024 Dr. Bhavesh Rios MD Attending Provider Active S tart: October 10, 2024 End: October 10, 2024 Dr. Bhavesh Rios MD Referring Provider Active S tart: October 10, 2024 End: October 10, 2024 Team Status: Inactive Member Role Status Dates Dr. Jose Enrique Finney MD Primary Care Provider Active Start: October 16, 2024 End: October 16, 2024 Dr. Jose Enrique Finney MD Attending Provider Active Start: October 16, 2024 End: October 16, 2024 Dr. Jose Enrique Finney MD Referring Provider Active Start: October 16, 2024 End: October 16, 2024 Team Status: Active Member Role Status Dates Dr. Jose Enrique Finney MD Primary Care Provider Active Start: October 25, 2024 Dr. Jose Enrique Finney MD Attending Provider Active Start: October 25, 2024 Dr. Jose Enrique Finney MD Referring Provider Active Start: October 25, 2024 Team Status: Inactive Member Role Status Dates Dr. Jose Enrique Finney MD Primary Care Provider Active Start: October 25, 2024 End: October 25, 2024 Dr. Jose Enrique Finney MD Attending Provider Active Start: October 25, 2024 End: October 25, 2024 Dr. Jose Enrique Finney MD Referring Provider Active Start: October 25, 2024 End: October 25, 2024 Team Status: Inactive Member Role Status Dates Dr. Jose Enrique Finney MD Primary Care Provider Active Start: November 01, 2024 End: November 01, 2024 Dr. Jose Enrique Finney MD Referring Provider Active Start: November 01, 2024 End: November 01, 2024 Harper Sanchez PA, PA Attending Provider Active Start: November 01, 2024 End: November 01, 2024 Team Status: Inactive Member Role Status Dates Dr. Jose Enrique Finney MD Primary Care Provider Active Start: November 21, 2024 End: November 21, 2024 Dr. Jose Enrique Finney MD Attending Provider Active Start: November 21, 2024 End: November 21, 2024 Dr. Jose Enrique Finney MD Referring Provider Active Start: November 21, 2024 End: November 21, 2024 Team Status: Inactive Member Role Status Dates Dr. Jose Enrique Finney MD Primary Care Provider Active Start: December 06, 2024 End: December 06, 2024 MITESH Heredia Attending Provider Active Start: December 06, 2024 End: December 06, 2024 MITESH Heredia Referring Provider Active Start: December 06, 2024 End: December 06, 2024 Team Status: Active Member Role Status Dates Dr. Jose Enrique Finney MD Primary Care Provider Active Start: December 10, 2024 Dr. Jose Enrique Finney MD Attending Provider Active Start: December 10, 2024 Dr. Jose Enrique Finney MD Referring Provider Active Start: December 10, 2024 Team Status: Inactive Member Role Status Dates Dr. Jose Enrique Finney MD Primary Care Provider Active Start: December 10, 2024 End: December 10, 2024 Dr. Jose Enrique Finney MD Attending Provider Active Start: December 10, 2024 End: December 10, 2024 Dr. Jose Enrique Finney MD Referring Provider Active Start: December 10, 2024 End: December 10, 2024 Team Status: Active Member Role Status Dates Dr. Jose Enrique Finney MD Primary Care Provider Active Start: December 26, 2024 Dr. Jose Enrique Finney MD Attending Provider Active Start: December 26, 2024 Dr. Jose Enrique Finney MD Referring Provider Active Start: December 26, 2024 Team Status: Inactive Member Role Status Dates Dr. Jose Enrique Finney MD Primary Care Provider Active Start: December 26, 2024 End: December 26, 2024 Dr. Jose Enrique Finney MD Attending Provider Active Start: December 26, 2024 End: December 26, 2024 Dr. Jose Enrique Finney MD Referring Provider Active Start: December 26, 2024 End: December 26, 2024 Team Status: Inactive Member Role Status Dates Dr. Jose Enrique Finney MD Primary Care Provider Active Start: January 09, 2025 End: January 09, 2025 Dr. Jose Enrique Finney MD Referring Provider Active Start: January 09, 2025 End: January 09, 2025 Dr. Checo Chavez DO Attending Provider Active Start: January 09, 2025 End: January 09, 2025 Team Status: Active Member Role Status Dates Dr. Jose Enrique Finney MD Primary Care Provider Active Start: January 09, 2025 Dr. Jose Enrique Finney MD Referring Provider Active Start: January 09, 2025 Dr. Checo Chavez DO Attending Provider Active Start: January 09, 2025 Dr. Checo Chavez DO Other Provider Active St art: January 09, 2025 Team Status: Inactive Member Role Status Dates Dr. Jose Enrique Finney MD Primary Care Provider Active Start: December 24, 2024 End: December 24, 2024 Dr. Bhavesh Rios MD Attending Provider Active S tart: December 24, 2024 End: December 24, 2024 Team Status: Active Member Role/Relationship Status Dates Dr. Jose Enrique Finney MD Primary Care Provider Active Team Status: Active Member Role/Relationship Status Dates Dr. Jose Enrique Finney MD Primary Care Provider Active Start: October 07, 2024 Dr. Catracho Donohue MD Emergency Provider Active Start: October 07, 2024 Dr. Kira Lerma MD Attending Provider Active Start: October 07, 2024 Team Status: Inactive Member Role/Relationship Status Dates Dr. Jose Enrique Finney MD Primary Care Provider Active Start: October 07, 2024 End: October 08, 2024 Dr. Catracho Donohue MD Emergency Provider Active Start: October 07, 2024 End: October 08, 2024 Dr. Kira Lerma MD Admit Provider Active St art: October 07, 2024 End: October 08, 2024 Dr. Kira Lerma MD Other Provider Active St art: October 07, 2024 End: October 08, 2024 Dr. Bernabe Casey DO Attending Provider Active Start: October 07, 2024 End: October 08, 2024 Team Status: Inactive Member Role/Relationship Status Dates Dr. Jose Enrique Finney MD Primary Care Provider Active Start: October 08, 2024 End: October 08, 2024 Dr. Bhavesh Rios MD Attending Provider Active S tart: October 08, 2024 End: October 08, 2024 Dr. Bhavesh Rios MD Referring Provider Active S tart: October 08, 2024 End: October 08, 2024 Team Status: Active Member Role/Relationship Status Dates Dr. Jose Enrique Finney MD Primary Care Provider Active Start: October 08, 2024 Dr. Catracho Donohue MD Emergency Provider Active Start: October 08, 2024 Dr. Kira Lerma MD Admit Provider Active St art: October 08, 2024 Dr. Kira Lerma MD Other Provider Active St art: October 08, 2024 Dr. Bernabe Casey DO Attending Provider Active Start: October 08, 2024 Dr. Bernabe Casey DO Other Provider Active S tart: October 08, 2024 Team Status: Inactive Member Role/Relationship Status Dates Dr. Jose Enrique Finney MD Primary Care Provider Active Start: October 10, 2024 End: October 10, 2024 Dr. Bhavesh Rios MD Attending Provider Active S tart: October 10, 2024 End: October 10, 2024 Dr. Bhavesh Rios MD Referring Provider Active S tart: October 10, 2024 End: October 10, 2024 Team Status: Inactive Member Role/Relationship Status Dates Dr. Jose Enrique Finney MD Primary Care Provider Active Start: October 11, 2024 End: October 11, 2024 Dr. Jose Enrique Finney MD Attending Provider Active Start: October 11, 2024 End: October 11, 2024 Dr. Jose Enrique Finney MD Referring Provider Active Start: October 11, 2024 End: October 11, 2024 Team Status: Inactive Member Role/Relationship Status Dates Dr. Jose Enrique Finney MD Primary Care Provider Active Start: October 11, 2024 End: October 13, 2024 Dr. Fei Easton DO Referring Provider Active Start : October 11, 2024 End: October 13, 2024 Dr. Fei Easton DO Emergency Provider Active Start : October 11, 2024 End: October 13, 2024 Dr. Germán Landeros DO Admit Provider Active Start: October 11, 2024 End: October 13, 2024 Dr. Germán Landeros DO Other Provider Active Start: October 11, 2024 End: October 13, 2024 Dr. García Cabezas MD Attending Provider Active Start: October 11, 2024 End: October 13, 2024 Team Status: Active Member Role/Relationship Status Dates Dr. Jose Enrique Finney MD Primary Care Provider Active Start: October 12, 2024 Dr. Fei Easton DO Emergency Provider Active Start : October 12, 2024 Dr. Germán Landeros DO Admit Provider Active Start: October 12, 2024 Dr. Germán Landeros DO Other Provider Active Start: October 12, 2024 Dr. García Cabezas MD Attending Provider Active Start: October 12, 2024 Dr. García Cabezas MD Other Provider Active Start: October 12, 2024 Team Status: Active Member Role/Relationship Status Dates Dr. Jose Enrique Finney MD Primary Care Provider Active Start: October 12, 2024 Dr. Checo Chavez DO Attending Provider Active Start: October 12, 2024 Dr. García Cabezas MD Referring Provider Active Start: October 12, 2024 Team Status: Active Member Role/Relationship Status Dates Dr. Jose Enrique Finney MD Primary Care Provider Active Start: October 13, 2024 Dr. Fei Easton DO Emergency Provider Active Start : October 13, 2024 Dr. Germán Landeros DO Admit Provider Active Start: October 13, 2024 Dr. Germán Landeros DO Other Provider Active Start: October 13, 2024 Dr. García Cabezas MD Attending Provider Active Start: October 13, 2024 Dr. García Cabezas MD Other Provider Active Start: October 13, 2024 Team Status: Inactive Member Role/Relationship Status Dates Dr. Jose Enrique Finney MD Primary Care Provider Active Start: October 16, 2024 End: October 16, 2024 Dr. Jose Enrique Finney MD Attending Provider Active Start: October 16, 2024 End: October 16, 2024 Dr. Jose Enrique Finney MD Referring Provider Active Start: October 16, 2024 End: October 16, 2024 Team Status: Inactive Member Role/Relationship Status Dates Dr. Jose Enrique Finney MD Primary Care Provider Active Start: October 17, 2024 End: October 17, 2024 Dr. Jose Enrique Finney MD Referring Provider Active Start: October 17, 2024 End: October 17, 2024 MITESH Heredia Attending Provider Active Start: October 17, 2024 End: October 17, 2024 Team Status: Inactive Member Role/Relationship Status Dates Dr. Jose Enrique Finney MD Primary Care Provider Active Start: October 25, 2024 End: October 25, 2024 Dr. Jose Enrique Finney MD Attending Provider Active Start: October 25, 2024 End: October 25, 2024 Dr. Jose Enrique Finney MD Referring Provider Active Start: October 25, 2024 End: October 25, 2024 Team Status: Inactive Member Role/Relationship Status Dates Dr. Jose Enrique Finney MD Primary Care Provider Active Start: November 01, 2024 End: November 01, 2024 Dr. Jose Enrique Finney MD Referring Provider Active Start: November 01, 2024 End: November 01, 2024 Harper Sanchez PA, PA Attending Provider Active Start: November 01, 2024 End: November 01, 2024 Team Status: Inactive Member Role/Relationship Status Dates Dr. Jose Enrique Finney MD Primary Care Provider Active Start: November 21, 2024 End: November 21, 2024 Dr. Jose Enrique Finney MD Attending Provider Active Start: November 21, 2024 End: November 21, 2024 Dr. Jose Enrique Finney MD Referring Provider Active Start: November 21, 2024 End: November 21, 2024 Team Status: Inactive Member Role/Relationship Status Dates Dr. Jose Enrique Finney MD Primary Care Provider Active Start: December 06, 2024 End: December 06, 2024 MITESH Heredia Attending Provider Active Start: December 06, 2024 End: December 06, 2024 MITESH Heredia Referring Provider Active Start: December 06, 2024 End: December 06, 2024 Team Status: Inactive Member Role/Relationship Status Dates Dr. Jose Enrique Finney MD Primary Care Provider Active Start: December 10, 2024 End: December 10, 2024 Dr. Jose Enrique Finney MD Attending Provider Active Start: December 10, 2024 End: December 10, 2024 Dr. Jose Enrique Finney MD Referring Provider Active Start: December 10, 2024 End: December 10, 2024 Team Status: Inactive Member Role/Relationship Status Dates Dr. Jose Enrique Finney MD Primary Care Provider Active Start: December 24, 2024 End: December 24, 2024 Dr. Bhavesh Rios MD Attending Provider Active S tart: December 24, 2024 End: December 24, 2024 Team Status: Inactive Member Role/Relationship Status Dates Dr. Jose Enrique Finney MD Primary Care Provider Active Start: December 26, 2024 End: December 26, 2024 Dr. Jose Enrique Finney MD Attending Provider Active Start: December 26, 2024 End: December 26, 2024 Dr. Jose Enrique Finney MD Referring Provider Active Start: December 26, 2024 End: December 26, 2024 Team Status: Inactive Member Role/Relationship Status Dates Dr. Jose Enrique Finney MD Primary Care Provider Active Start: January 09, 2025 End: January 09, 2025 Dr. Jose Enrique Finney MD Referring Provider Active Start: January 09, 2025 End: January 09, 2025 Dr. Checo Chavez DO Attending Provider Active Start: January 09, 2025 End: January 09, 2025 Team Status: Active Member Role/Relationship Status Dates Dr. Jose Enrique Finney MD Primary Care Provider Active Start: January 09, 2025 Dr. Jose Enrique Finney MD Referring Provider Active Start: January 09, 2025 Dr. Checo Chavez DO Attending Provider Active Start: January 09, 2025 Dr. Checo Chavez DO Other Provider Active St art: January 09, 2025 Team Status: Active Member Role/Relationship Status Dates Dr. Jose Enrique Finney MD Primary Care Provider Active Start: January 28, 2025 Dr. Jose Enrique Finney MD Referring Provider Active Start: January 28, 2025 Dr. Cesar Kidd DO Attending Provider Active Start: January 28, 2025 Team Status: Inactive Member Role/Relationship Status Dates Dr. Jose Enrique Finney MD Primary Care Provider Active Start: January 28, 2025 End: January 28, 2025 Dr. Bhavesh Rios MD Attending Provider Active S tart: January 28, 2025 End: January 28, 2025 Team Status: Inactive Member Role/Relationship Status Dates Dr. Jose Enrique Finney MD Primary Care Provider Active Start: January 28, 2025 End: January 28, 2025 Dr. Jose Enrique Finney MD Referring Provider Active Start: January 28, 2025 End: January 28, 2025 Dr. Cesar Kidd DO Attending Provider Active Start: January 28, 2025 End: January 28, 2025 Team Status: Inactive Member Role/Relationship Status Dates Dr. Jsoe Enrique Finney MD Primary Care Provider Active Start: January 30, 2025 End: January 30, 2025 Dr. Jose Enrique Finney MD Referring Provider Active Start: January 30, 2025 End: January 30, 2025 Harper Sanchez PA, PA Attending Provider Active Start: January 30, 2025 End: January 30, 2025 Team Status: Inactive Member Role/Relationship Status Dates Dr. Jose Enrique Finney MD Primary Care Provider Active Start: October 25, 2024 End: October 25, 2024 Dr. Jose Enrique Finney MD Attending Provider Active Start: October 25, 2024 End: October 25, 2024 Dr. Jose Enrique Finney MD Referring Provider Active Start: October 25, 2024 End: October 25, 2024 Team Status: Inactive Member Role/Relationship Status Dates Dr. Jose Enrique Finney MD Primary Care Provider Active Start: November 01, 2024 End: November 01, 2024 Dr. Jose Enrique Finney MD Referring Provider Active Start: November 01, 2024 End: November 01, 2024 Harper Sanchez PA, PA Attending Provider Active Start: November 01, 2024 End: November 01, 2024 Team Status: Inactive Member Role/Relationship Status Dates Dr. Jose Enrique Finney MD Primary Care Provider Active Start: November 21, 2024 End: November 21, 2024 Dr. Jose Enrique Finney MD Attending Provider Active Start: November 21, 2024 End: November 21, 2024 Dr. Jose Enrique Finney MD Referring Provider Active Start: November 21, 2024 End: November 21, 2024 Team Status: Inactive Member Role/Relationship Status Dates Dr. Jose Enrique Finney MD Primary Care Provider Active Start: December 06, 2024 End: December 06, 2024 MITESH Heredia Attending Provider Active Start: December 06, 2024 End: December 06, 2024 MITESH Heredia Referring Provider Active Start: December 06, 2024 End: December 06, 2024 Team Status: Inactive Member Role/Relationship Status Dates Dr. Jose Enrique Finney MD Primary Care Provider Active Start: December 10, 2024 End: December 10, 2024 Dr. Jose Enrique Finney MD Attending Provider Active Start: December 10, 2024 End: December 10, 2024 Dr. Jose Enrique Finney MD Referring Provider Active Start: December 10, 2024 End: December 10, 2024 Team Status: Inactive Member Role/Relationship Status Dates Dr. Jose Enrique Finney MD Primary Care Provider Active Start: December 24, 2024 End: December 24, 2024 Dr. Bhavesh Rios MD Attending Provider Active S tart: December 24, 2024 End: December 24, 2024 Team Status: Inactive Member Role/Relationship Status Dates Dr. Jose Enrique Finney MD Primary Care Provider Active Start: December 26, 2024 End: December 26, 2024 Dr. Jose Enrique Finney MD Attending Provider Active Start: December 26, 2024 End: December 26, 2024 Dr. Jose Enrique Finney MD Referring Provider Active Start: December 26, 2024 End: December 26, 2024 Team Status: Inactive Member Role/Relationship Status Dates Dr. Jose Enrique Finney MD Primary Care Provider Active Start: January 09, 2025 End: January 09, 2025 Dr. Jose Enrique Finney MD Referring Provider Active Start: January 09, 2025 End: January 09, 2025 Dr. Checo Chavez DO Attending Provider Active Start: January 09, 2025 End: January 09, 2025 Team Status: Active Member Role/Relationship Status Dates Dr. Jose Enrique Finney MD Primary Care Provider Active Start: January 09, 2025 Dr. Jose Enrique Finney MD Referring Provider Active Start: January 09, 2025 Dr. Checo Chavez DO Attending Provider Active Start: January 09, 2025 Dr. Checo Chavez DO Other Provider Active St art: January 09, 2025 Team Status: Inactive Member Role/Relationship Status Dates Dr. Jose Enrique Finney MD Primary Care Provider Active Start: January 28, 2025 End: January 28, 2025 Dr. Jose Enrique Finney MD Referring Provider Active Start: January 28, 2025 End: January 28, 2025 Dr. Cesar Kidd DO Attending Provider Active Start: January 28, 2025 End: January 28, 2025 Team Status: Inactive Member Role/Relationship Status Dates Dr. Jose Enrique Finney MD Primary Care Provider Active Start: January 28, 2025 End: January 28, 2025 Dr. Bhavesh Rios MD Attending Provider Active S tart: January 28, 2025 End: January 28, 2025 Team Status: Inactive Member Role/Relationship Status Dates Dr. Jose Enrique Finney MD Primary Care Provider Active Start: January 30, 2025 End: January 30, 2025 Dr. Jose Enrique Finney MD Referring Provider Active Start: January 30, 2025 End: January 30, 2025 Harper Sanchez PA, PA Attending Provider Active Start: January 30, 2025 End: January 30, 2025 Team Status: Inactive Member Role/Relationship Status Dates Dr. Jose Enrique Finney MD Primary Care Provider Active Start: February 13, 2025 End: February 13, 2025 Dr. Jose Enrique Finney MD Attending Provider Active Start: February 13, 2025 End: February 13, 2025 Dr. Jose Enrique Finney MD Referring Provider Active Start: February 13, 2025 End: February 13, 2025 Team Status: Inactive Member Role/Relationship Status Dates Dr. Jose Enrique Finney MD Primary Care Provider Active Start: November 21, 2024 End: November 21, 2024 Dr. Jose Enrique Finney MD Attending Provider Active Start: November 21, 2024 End: November 21, 2024 Dr. Jose Enrique Finney MD Referring Provider Active Start: November 21, 2024 End: November 21, 2024 Team Status: Inactive Member Role/Relationship Status Dates Dr. Jose Enrique Finney MD Primary Care Provider Active Start: December 06, 2024 End: December 06, 2024 LILLIANA HerediaC Attending Provider Active Start: December 06, 2024 End: December 06, 2024 MITESH Heredia Referring Provider Active Start: December 06, 2024 End: December 06, 2024 Team Status: Inactive Member Role/Relationship Status Dates Dr. Jose Enrique Finney MD Primary Care Provider Active Start: December 10, 2024 End: December 10, 2024 Dr. Jose Enrique Finney MD Attending Provider Active Start: December 10, 2024 End: December 10, 2024 Dr. Jose Enrique Finney MD Referring Provider Active Start: December 10, 2024 End: December 10, 2024 Team Status: Inactive Member Role/Relationship Status Dates Dr. Jose Enrique Finney MD Primary Care Provider Active Start: December 24, 2024 End: December 24, 2024 Dr. Bhavesh Rios MD Attending Provider Active S tart: December 24, 2024 End: December 24, 2024 Team Status: Inactive Member Role/Relationship Status Dates Dr. Jose Enrique Finney MD Primary Care Provider Active Start: December 26, 2024 End: December 26, 2024 Dr. Jose Enrique Finney MD Attending Provider Active Start: December 26, 2024 End: December 26, 2024 Dr. Jose Enrique Finney MD Referring Provider Active Start: December 26, 2024 End: December 26, 2024 Team Status: Inactive Member Role/Relationship Status Dates Dr. Jose Enrique Finney MD Primary Care Provider Active Start: January 09, 2025 End: January 09, 2025 Dr. Jose Enrique Finney MD Referring Provider Active Start: January 09, 2025 End: January 09, 2025 Dr. Checo Chavez DO Attending Provider Active Start: January 09, 2025 End: January 09, 2025 Team Status: Active Member Role/Relationship Status Dates Dr. Jose Enrique Finney MD Primary Care Provider Active Start: January 09, 2025 Dr. Jose Enrique Finney MD Referring Provider Active Start: January 09, 2025 Dr. Checo Chavez DO Attending Provider Active Start: January 09, 2025 Dr. Checo Chavez DO Other Provider Active St art: January 09, 2025 Team Status: Inactive Member Role/Relationship Status Dates Dr. Jose Enrique Finney MD Primary Care Provider Active Start: January 28, 2025 End: January 28, 2025 Dr. Jose Enrique Finney MD Referring Provider Active Start: January 28, 2025 End: January 28, 2025 Dr. Cesar Kidd DO Attending Provider Active Start: January 28, 2025 End: January 28, 2025 Team Status: Inactive Member Role/Relationship Status Dates Dr. Jose Enrique Finney MD Primary Care Provider Active Start: January 28, 2025 End: January 28, 2025 Dr. Bhavesh Rios MD Attending Provider Active S tart: January 28, 2025 End: January 28, 2025 Team Status: Inactive Member Role/Relationship Status Dates Dr. Jose Enrique Finney MD Primary Care Provider Active Start: January 30, 2025 End: January 30, 2025 Dr. Jose Enrique Finney MD Referring Provider Active Start: January 30, 2025 End: January 30, 2025 Harper Sanchez PA, PA Attending Provider Active Start: January 30, 2025 End: January 30, 2025 Team Status: Inactive Member Role/Relationship Status Dates Dr. Jose Enrique Finney MD Primary Care Provider Active Start: February 13, 2025 End: February 13, 2025 Dr. Jose Enrique Finney MD Attending Provider Active Start: February 13, 2025 End: February 13, 2025 Dr. Jose Enrique Finney MD Referring Provider Active Start: February 13, 2025 End: February 13, 2025 Team Status: Inactive Member Role/Relationship Status Dates Dr. Jose Enrique Finney MD Primary Care Provider Active Start: March 09, 2025 End: March 09, 2025 Dr. Bhavesh Rios MD Attending Provider Active S tart: March 09, 2025 End: March 09, 2025 Team Status: Inactive Member Role/Relationship Status Dates Dr. Jose Enrique Finney MD Primary Care Provider Active Start: December 06, 2024 End: December 06, 2024 MITESH Heredia Attending Provider Active Start: December 06, 2024 End: December 06, 2024 MITESH Heredia Referring Provider Active Start: December 06, 2024 End: December 06, 2024 Team Status: Inactive Member Role/Relationship Status Dates Dr. Jose Enrique Finney MD Primary Care Provider Active Start: December 10, 2024 End: December 10, 2024 Dr. Jose Enrique Finney MD Attending Provider Active Start: December 10, 2024 End: December 10, 2024 Dr. Jose Enrique Finney MD Referring Provider Active Start: December 10, 2024 End: December 10, 2024 Team Status: Inactive Member Role/Relationship Status Dates Dr. Jose Enrique Finney MD Primary Care Provider Active Start: December 24, 2024 End: December 24, 2024 Dr. Bhavesh Rios MD Attending Provider Active S tart: December 24, 2024 End: December 24, 2024 Team Status: Inactive Member Role/Relationship Status Dates Dr. Jose Enrique Finney MD Primary Care Provider Active Start: December 26, 2024 End: December 26, 2024 Dr. Jose Enrique Finney MD Attending Provider Active Start: December 26, 2024 End: December 26, 2024 Dr. Jose Enrique Finney MD Referring Provider Active Start: December 26, 2024 End: December 26, 2024 Team Status: Inactive Member Role/Relationship Status Dates Dr. Jose Enrique Finney MD Primary Care Provider Active Start: January 09, 2025 End: January 09, 2025 Dr. Jose Enrique Finney MD Referring Provider Active Start: January 09, 2025 End: January 09, 2025 Dr. Checo Chavez DO Attending Provider Active Start: January 09, 2025 End: January 09, 2025 Team Status: Active Member Role/Relationship Status Dates Dr. Jose Enrique Finney MD Primary Care Provider Active Start: January 09, 2025 Dr. Jose Enrique Finney MD Referring Provider Active Start: January 09, 2025 Dr. Checo Chavez DO Attending Provider Active Start: January 09, 2025 Dr. Checo Chavez DO Other Provider Active St art: January 09, 2025 Team Status: Inactive Member Role/Relationship Status Dates Dr. Jose Enrique Finney MD Primary Care Provider Active Start: January 28, 2025 End: January 28, 2025 Dr. Jose Enrique Finney MD Referring Provider Active Start: January 28, 2025 End: January 28, 2025 Dr. Cesar Kidd DO Attending Provider Active Start: January 28, 2025 End: January 28, 2025 Team Status: Inactive Member Role/Relationship Status Dates Dr. Jose Enrique Finney MD Primary Care Provider Active Start: January 28, 2025 End: January 28, 2025 Dr. Bhavesh Rios MD Attending Provider Active S tart: January 28, 2025 End: January 28, 2025 Team Status: Inactive Member Role/Relationship Status Dates Dr. Jose Enrique Finney MD Primary Care Provider Active Start: January 30, 2025 End: January 30, 2025 Dr. Jose Enrique Finney MD Referring Provider Active Start: January 30, 2025 End: January 30, 2025 Harper Sanchez PA, PA Attending Provider Active Start: January 30, 2025 End: January 30, 2025 Team Status: Inactive Member Role/Relationship Status Dates Dr. Jose Enrique Finney MD Primary Care Provider Active Start: February 13, 2025 End: February 13, 2025 Dr. Jose Enrique Finney MD Attending Provider Active Start: February 13, 2025 End: February 13, 2025 Dr. Jose Enrique Finney MD Referring Provider Active Start: February 13, 2025 End: February 13, 2025 Team Status: Inactive Member Role/Relationship Status Dates Dr. Jose Enrique Finney MD Primary Care Provider Active Start: March 09, 2025 End: March 09, 2025 Dr. Bhavesh Rios MD Attending Provider Active S tart: March 09, 2025 End: March 09, 2025 Team Status: Inactive Member Role/Relationship Status Dates Dr. Jose Enrique Finney MD Primary Care Provider Active Start: March 25, 2025 End: March 25, 2025 Dr. Bhavesh Rios MD Attending Provider Active S tart: March 25, 2025 End: March 25, 2025 Source Comments (unrecognize d section and content) In the event this informatio n is protected by the Federal Confidentiality of Alcohol and Drug Abuse Patient Records regulations: The Federal rules restrict any use of the information to criminally investigate or prosecute any alcohol or drug abuse patient.[facility] Reason for Visit (unrecogniz ed section and content) Reason Comments Trauma To left ear, seeping blood FOR RECORDS PERTAINING TO PATIENTS WHO ARE OR HAVE BEEN ENROLLED IN A CHEMICAL DEPENDENCY/SUBSTANCEABUSE PROGRAM, SOME INFORMATION MAY BE OMITTED. This clinical summary was aggregated from multiple sources. Caution should be exercised in using it in the provision of clinical care. This summary normalizes information from multiple sources, and as a consequence, information in this document may materially change the coding, format and clinical context of patient data. In addition, data may be omitted in some cases. CLINICAL DECISIONS SHOULD BE BASED ON THE PRIMARY CLINICAL RECORDS. [facility]. provides no warranty or guarantee of the accuracy or completeness of information in this document.
--- NOTE | 2025-06-05 18:57 | EX.ED.DYSGE1 ---
HPI History of Present Illness Chief Complaint: Other, Pain/Inj Detail of Chief Complaint: Concern my E JANET battery is low since I am hearing a buzzing since Informant: patient Onset/Context/Timing Onset: Days Context: Sudden Onset Timing: Continuous Quality: Buzzing sensation Location: A JANET Current Severity: Mild Maximum Severity: Mild Worsened by: A JANET battery is low Relieved by: Needs battery replaced Associated Symptoms Associated Symptoms: None Narrative Narrative: Patient is an 85-year-old male. He presents because he thinks his battery is low because he hears a buzzing. He has no other complaints. He the defibrillator has not discharged. He denies cardiac respiratory symptoms. He denies lightheadedness. He denies palpitations. Prior similar symptoms: Yes Recent Illness/Hospitalization: No PFSH PFSH Medical History Tinnitus Wears glasses Wears dentures Insulin dependent diabetes mellitus Arthritis High cholesterol Back pain Difficulty swallowing History of GI bleed Former smoker Shortness of breath on exertion Leg cramps History of pain when walking History of edema History of CHF (congestive heart failure) History of heart attack History of echocardiogram History of stress test Cardiology follow-up encounter Hx of fracture of leg Neuropathy Declining functional status LISA (acute kidney injury) Acute hypokalemia Mixed hyperlipidemia Paroxysmal atrial fibrillation Hypokalemia due to loss of potassium Upper GI bleed NSVT (nonsustained ventricular tachycardia) Nonrheumatic mitral valve insufficiency Atherosclerosis of [place] coronary artery of [place] heart without angina pectoris Ischemic cardiomyopathy Essential (primary) hypertension Type 2 diabetes mellitus without complications Home Medications ?Medication ?Instructions ?Recorded ?Last Taken ?Type multivitamin with folic acid 400 1 tab PO DAILY supplement 04/11/17 01/08/25 History mcg tablet insulin detemir U-100 100 unit/mL 32 unit subcut QHS diabetes 11/10/20 01/08/25 History (3 mL) subcutaneous pen apixaban 5 mg tablet 5 mg PO BID Blood thinner #180 tabs 02/24/21 01/06/25 Rx carvedilol 12.5 mg tablet 12.5 mg PO BID Heart rate/blood 02/24/21 01/08/25 Rx pressure #180 tabs nitroglycerin 0.4 mg sublingual 0.4 mg sublingual Q5-15M PRN chest 03/22/23 01/08/25 Rx tablet (Nitrostat) pain #25 tabs isosorbide mononitrate 30 mg 30 mg PO DAILY heart #90 tabs 06/18/24 01/08/25 Rx tablet,extended release 24 hr rosuvastatin 40 mg tablet 40 mg PO DAILY cholesterol #90 tabs 06/18/24 01/08/25 Rx blood sugar diagnostic (True 10/11/24 Unknown History Metrix Glucose Test Strip) ascorbate calcium (vitamin C) 500 500 mg PO QDAY #90 tabs 10/17/24 01/07/25 Rx mg tablet pantoprazole 40 mg tablet,delayed 40 mg PO BID #180 tabs 10/17/24 01/08/25 Rx release insulin lispro 100 unit/mL 10 unit subcut TID 11/01/24 01/07/25 History subcutaneous pen (Humalog KwikPen (U-100) Insulin) tamsulosin 0.4 mg capsule 0.4 mg PO QHS 11/01/24 01/08/25 History zolpidem 5 mg tablet 5 mg PO QHS PRN sleep 11/01/24 01/08/25 History furosemide 40 mg tablet 40 mg PO BID diuretic #180 tabs 12/05/24 01/08/25 Rx acetaminophen 500 mg tablet 500 mg PO Q6H PRN back pain #60 12/20/24 01/08/25 Rx (Tylenol Extra Strength) tabs ferrous sulfate 325 mg (65 mg 325 mg PO QODAY 01/04/25 01/07/25 History iron) tablet potassium chloride 20 mEq 20 meq PO BID #180 tabs 06/05/25 Unknown Rx tablet,extended release(part/cryst) Allergy/AdvReac Type Severity Reaction Status Date / Time atorvastatin Allergy Severe myalgias, Verified 06/05/25 18:14 tongue swelling captopril Allergy Severe tongue Verified 06/05/25 18:14 swelling rivaroxaban (From Xarelto) Allergy Severe tongue Verified 06/05/25 18:14 swelling glimepiride Allergy Intermediate mouth Verified 06/05/25 18:14 blisters levofloxacin (From Levaquin) Allergy Intermediate leg pain Verified 06/05/25 18:14 dapagliflozin (From Farxiga) Allergy Unknown Rash Verified 06/05/25 18:14 azithromycin (From Zithromax) AdvReac Severe blisters Verified 06/05/25 18:14 metolazone AdvReac Severe Rash/Itchin Verified 06/05/25 18:14 g pravastatin AdvReac Intermediate itching Verified 06/05/25 18:14 Surgical History History of implantable cardiac defibrillator (ICD) Hx of arthroscopic knee surgery Hx of right cataract extraction Hx of left cataract extraction History of esophagogastroduodenoscopy (EGD) History of right-sided carotid endarterectomy History of electrophysiologic study History of left heart catheterization Status post mitral valve annuloplasty Hx of CABG (~11/14/09) Social History household members: none Smoking Status: Former smoker how long ago did patient quit smokin years ago alcohol intake: never substance use type: does not use caffeine: No what type of physical activity do you participate in: walking frequency: daily duration: 15-30 minutes/day seatbelt use: always do you feel safe at home: Yes ROS ROS ED Constitutional Constitutional ED: Denies chills or fever(s) Eyes Eyes: Denies blurry vision or change in vision Cardiovascular Cardiovascular: Denies chest pain, orthopnea, palpitations or paroxysmal nocturnal dyspnea Respiratory/Chest Respiratory/Chest: Denies cough, dyspnea, dyspnea on exertion, orthopnea or paroxysmal nocturnal dyspnea Gastrointestinal Gastrointestinal: Denies nausea or vomiting Musculoskeletal Musculoskeletal: Denies back pain Hematologic/Lymphatic Hematologic/Lymphatic: Reports systems reviewed and no addt'l complaints, except as documented EXAM Physical Exam Const Vital Signs: 06/05/25 18:14 06/05/25 18:47 Temperature 97.9 F Temperature Source Temporal Pulse Rate 87 Respiratory Rate 20 H Respiratory Effort Normal Non-Labored Respiratory Pattern Normal Blood Pressure 151/97 H Blood Pressure Mean 115 Pulse Ox 100 Oxygen Delivery Method Room Air Positive well nourished and well developed General Appearance ED: well developed and NAD; Negative for pallor HEENT Reports moist mucous membranes HEENT Narrative: Head is atraumatic and normocephalic. Ears are normal. Nares are patent Eyes PERRL and EOMs intact bilaterally General Eye ED: Negative for pale conjunctiva or scleral icterus Neck no lymphadenopathy, supple and no JVD Chest Wall inspection of chest normal and palpation of chest normal Resp normal respiratory effort and clear to auscultation bilaterally Cardio regular rate, regular rhythm, S2 normal heart sound and no murmurs Extremity normal to inspection Neuro oriented x3 and CN's II-XII intact bilaterally Sensorium / Orientation: alert Psych mental status grossly normal Skin no rashes or lesions noted, no wounds and skin turgor normal General Skin Exam: Negative for jaundice or pallor MDM MDM MDM Narrative Medical decision making narrative: Patient presents to have his defibrillator interrogated. Interrogation indicates patient's battery is low. Case discussed Dr. Lubin. Patient to call the office tomorrow to have his battery changed Discharge Plan Triage Chief Complaint: Other, Pain/Inj ED Provider: Joni Harrell Dx/Rx/DC Orders Clinical Impression: Implantable cardioverter-defibrillator (ICD) at end of battery life, Atherosclerosis of [place] coronary artery of [place] heart without angina pectoris, Chronic kidney disease (CKD), stage II (mild), MCFP current use of 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, Paroxysmal atrial fibrillation, Type 2 diabetes mellitus without complications Instructions: ED Pacer AICD Dc Prescriptions: No Action nitroglycerin [Nitrostat] 0.4 mg tablet, sublingual 0.4 mg sublingual Q5-15M PRN (Reason: chest pain) Qty: 25 3RF Rx Instructions: do not exceed 3 doses per episode pantoprazole 40 mg tablet,delayed release (DR/EC) 40 mg PO BID Qty: 180 1RF Rx Instructions: take 30 minutes before breakfast and dinner ascorbate calcium (vitamin C) 500 mg tablet 500 mg PO QDAY Qty: 90 1RF Rx Instructions: take once tablet every other day with Fe tablet tamsulosin 0.4 mg capsule 0.4 mg PO QHS zolpidem 5 mg tablet 5 mg PO QHS PRN (Reason: sleep) insulin lispro [Humalog KwikPen Insulin] 100 unit/mL insulin pen 10 unit subcut TID multivitamin with folic acid 1 TABLET tablet 1 tab PO DAILY insulin detemir U-100 100 unit/mL (3 mL) insulin pen 32 unit SC QHS ferrous sulfate 325 mg (65 mg iron) tablet 325 mg PO QODAY Rx Instructions: take one tablet every other day in the morning (DME) True Metrix Glucose Test Strip Strip 1 strip MISCELLANEOUS TID apixaban 5 mg tablet 5 mg PO BID Qty: 180 3RF carvedilol 12.5 mg tablet 12.5 mg PO BID Qty: 180 3RF rosuvastatin 40 mg tablet 40 mg PO DAILY Qty: 90 3RF isosorbide mononitrate 30 mg tablet extended release 24 hr 30 mg PO DAILY Qty: 90 3RF furosemide 40 mg tablet 40 mg PO BID Qty: 180 3RF acetaminophen [Tylenol Extra Strength] 500 mg tablet 500 mg PO Q6H PRN (Reason: back pain) Qty: 60 0RF potassium chloride 20 mEq tablet,ER particles/crystals 20 meq PO BID Qty: 180 3RF Primary Care Provider: Jose Enrique Finney Referrals: Jose Enrique Finney MD [Primary Care Provider, Family Practice] Ponce Kent MD [Med Staff - Active Staff, Cardiology] - As soon as possible Activity Restrictions/Additional Instructions: Call the cardiology office tomorrow morning. You will need an appointment to have your battery change. Until the battery is changed you will hear the constant buzzing sound. Print Language: Turkmen Disposition Disposition: Home, Self Care
[2025-06-05 19:10] VITALS: BP 147/79; PULSE 84; RESP 18; TEMP 36.6; O2SAT 100
== END 2025-06-05 19:11 | disposition home or self-care (01) ==
PROVIDERS: Emergency Provider Emergency Medicine; PCP Family Medicine; Visit Provider Emergency Medicine
DX: Z45.02 Encounter for adjustment and management of automatic implantable cardiac defibrillator (principal); I48.0 Paroxysmal atrial fibrillation; E11.22 Type 2 diabetes mellitus with diabetic chronic kidney disease; E11.40 Type 2 diabetes mellitus with diabetic neuropathy, unspecified; Z79.4 Long term (current) use of insulin; I25.5 Ischemic cardiomyopathy; I25.10 Atherosclerotic heart disease of native coronary artery without angina pectoris; Z87.891 Personal history of nicotine dependence; Z79.01 Long term (current) use of 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s; N18.2 Chronic kidney disease, stage 2 (mild); Z95.810 Presence of automatic (implantable) cardiac defibrillator; E78.2 Mixed hyperlipidemia; Z95.1 Presence of aortocoronary bypass graft; I12.9 Hypertensive chronic kidney disease with stage 1 through stage 4 chronic kidney disease, or unspecified chronic kidney disease
CPT/HCPCS: 93288; 99282

== ENCOUNTER 2025-06-06 09:25 | Day surgery (SDC) | payer MEDICARE, BC, SELFPAY ==
[2025-06-06 09:27] VITALS: BP 154/94; PULSE 82; RESP 18; TEMP 36.8; O2SAT 100; BMI 23.5
--- NOTE | 2025-06-06 09:39 | RAD_ITS ---
PROCEDURE: RAD/Chest PA and Lateral
--- NOTE | 2025-06-06 09:40 | EX.ED.DYSGE1 ---
HPI History of Present Illness Chief Complaint: General Illness Informant: patient Onset/Context/Timing Onset: Yesterday Context: Gradual Onset Worsened by: Nothing Relieved by: Nothing Narrative Narrative: Patient presents for pacemaker battery replacement. Patient states he hears a chirping noise coming from his pacemaker. Patient states he was doing yard work yesterday and when he came into the house he heard the chirping coming from his pacemaker. Patient had a pacemaker interrogation on 03/25/2025 which showed a battery life of 2 months. Patient denies any chest pain or shortness of breath. Patient denies any nausea or vomiting. Patient denies any fevers or chills. [facility] Medical History Tinnitus Wears glasses Wears dentures Insulin dependent diabetes mellitus Arthritis High cholesterol Back pain Difficulty swallowing History of GI bleed Former smoker Shortness of breath on exertion Leg cramps History of pain when walking History of edema History of CHF (congestive heart failure) History of heart attack History of echocardiogram History of stress test Cardiology follow-up encounter Hx of fracture of leg Neuropathy Declining functional status LISA (acute kidney injury) Acute hypokalemia Mixed hyperlipidemia Paroxysmal atrial fibrillation Hypokalemia due to loss of potassium Upper GI bleed NSVT (nonsustained ventricular tachycardia) Nonrheumatic mitral valve insufficiency Atherosclerosis of [place] coronary artery of [place] heart without angina pectoris Ischemic cardiomyopathy Essential (primary) hypertension Type 2 diabetes mellitus without complications Home Medications ?Medication ?Instructions ?Recorded ?Last Taken ?Type multivitamin with folic acid 400 1 tab PO DAILY supplement 04/11/17 06/05/25 History mcg tablet insulin detemir U-100 100 unit/mL 32 unit subcut HS diabetes 11/10/20 06/05/25 History (3 mL) subcutaneous pen apixaban 5 mg tablet 5 mg PO BID Blood thinner #180 tabs 02/24/21 06/06/25 Rx carvedilol 12.5 mg tablet 12.5 mg PO BID Heart rate/blood 02/24/21 06/06/25 Rx pressure #180 tabs nitroglycerin 0.4 mg sublingual 0.4 mg sublingual Q5-15M PRN chest 03/22/23 01/08/25 Rx tablet (Nitrostat) pain #25 tabs isosorbide mononitrate 30 mg 30 mg PO DAILY heart #90 tabs 06/18/24 06/05/25 Rx tablet,extended release 24 hr rosuvastatin 40 mg tablet 40 mg PO DAILY cholesterol #90 tabs 06/18/24 06/04/25 Rx blood sugar diagnostic (True 10/11/24 Unknown History Metrix Glucose Test Strip) insulin lispro 100 unit/mL 10 unit subcut TID 11/01/24 06/05/25 History subcutaneous pen (Humalog KwikPen (U-100) Insulin) zolpidem 5 mg tablet 5 mg PO QHS PRN sleep 11/01/24 06/05/25 History furosemide 40 mg tablet 40 mg PO BID diuretic #180 tabs 12/05/24 06/05/25 Rx acetaminophen 500 mg tablet 500 mg PO Q6H PRN back pain #60 12/20/24 05/30/25 Rx (Tylenol Extra Strength) tabs potassium chloride 20 mEq 20 meq PO BID #180 tabs 06/05/25 06/05/25 Rx tablet,extended release(part/cryst) Allergy/AdvReac Type Severity Reaction Status Date / Time atorvastatin Allergy Severe myalgias, Verified 06/06/25 09:27 tongue swelling captopril Allergy Severe tongue Verified 06/06/25 09:27 swelling rivaroxaban (From Xarelto) Allergy Severe tongue Verified 06/06/25 09:27 swelling glimepiride Allergy Intermediate mouth Verified 06/06/25 09:27 blisters levofloxacin (From Levaquin) Allergy Intermediate leg pain Verified 06/06/25 09:27 dapagliflozin (From Farxiga) Allergy Unknown Rash Verified 06/06/25 09:27 azithromycin (From Zithromax) AdvReac Severe blisters Verified 06/06/25 09:27 metolazone AdvReac Severe Rash/Itchin Verified 06/06/25 09:27 g pravastatin AdvReac Intermediate itching Verified 06/06/25 09:27 Surgical History History of implantable cardiac defibrillator (ICD) Hx of arthroscopic knee surgery Hx of right cataract extraction Hx of left cataract extraction History of esophagogastroduodenoscopy (EGD) History of right-sided carotid endarterectomy History of electrophysiologic study History of left heart catheterization Status post mitral valve annuloplasty Hx of CABG (~04/16/10) Social History household members: none Smoking Status: Former smoker how long ago did patient quit smokin years ago alcohol intake: never substance use type: does not use caffeine: No what type of physical activity do you participate in: walking frequency: daily duration: 15-30 minutes/day seatbelt use: always do you feel safe at home: Yes ROS ROS ED Constitutional Constitutional ED: Denies chills or fever(s) Eyes Eyes: Denies blurry vision or change in vision ENT ENT ED: Reports rhinorrhea; Denies sore throat Cardiovascular Cardiovascular: Denies chest pain or palpitations Respiratory/Chest Respiratory/Chest: Denies cough or dyspnea Gastrointestinal Gastrointestinal: Denies nausea or vomiting Genitourinary Genitourinary ED: Denies dysuria or hematuria Musculoskeletal Musculoskeletal: Reports neck pain; Denies back pain Integumentary Denies abscess or rash Neurologic Neurologic: Denies headache(s) or weakness Allergic/Immunologic Allergic/Immunologic ED: Denies mouth swelling or urticaria EXAM Physical Exam Const Vital Signs: 06/06/25 09:27 06/06/25 09:48 Temperature 98.3 F Temperature Source Oral Pulse Rate 82 Respiratory Rate 18 Respiratory Effort Normal Non-Labored Respiratory Pattern Normal Blood Pressure 154/94 H Blood Pressure Mean 114 Pulse Ox 100 Oxygen Delivery Method Room Air Positive well nourished and well developed Constitutional Narrative: BMI is 23.5. General Appearance ED: well developed and NAD HEENT Reports moist mucous membranes Neck supple and no JVD Resp normal respiratory effort and clear to auscultation bilaterally Cardio regular rate and regular rhythm GI non-tender and non-distended Palpation: soft Extremity normal to inspection General Extremety ED: Negative for edema or tenderness General Extremity: Negative for edema Neuro oriented x3, CN's II-XII intact bilaterally and no sensory deficits noted Sensorium / Orientation: alert Motor Exam: strength 5/5 throughout Psych mental status grossly normal MDM MDM MDM Narrative Medical decision making narrative: Differential diagnosis includes pacemaker malfunction, electrolyte abnormality, pneumonia, bronchitis, and urinary tract infection. CBC will be obtained to assess for leukocytosis and anemia. Basic metabolic profile will be obtained to assess for electrolyte abnormality and renal function. Urinalysis will be obtained to assess for urinary tract infection and hematuria. Chest x-ray will be obtained to assess for pneumonia and bronchitis. History & Record Review Additional record(s) reviewed:: Prior outpatient record, Prior ED visit and Prior labs Lab Data Attestation: I reviewed the patient's lab results. Lab results narrative: CBC was reviewed. There is a mild anemia with a hemoglobin of 12.9 and hematocrit 39.9. The remainder is within normal limits. Basic metabolic profile was reviewed. BUN cellulitic 24 and creatinine was 1.21. These are consistent with previous results. The remainder is within normal limits. Labs: Laboratory Results - last 24 hr 06/06/25 09:50 WBC 6.1 RBC 4.20 L Hgb 12.9 L Hct 39.9 L MCV 95.0 H MCH 30.7 MCHC 32.3 RDW Std Deviation 46.4 H RDW Coeff of [place] 13.2 Plt Count 195 MPV 9.4 Immature Gran % (Auto) 0.300 Neut % (Auto) 73.1 H Lymph % (Auto) 16.3 L [place] % (Auto) 8.3 Eos % (Auto) 1.3 Baso % (Auto) 0.7 Absolute Neuts (auto) 4.4 Absolute Lymphs (auto) 0.99 Nucleated RBC % 0 Sodium 141 Potassium 3.8 Chloride 104 Carbon Dioxide 27.2 Anion Gap 10 BUN 24 H Creatinine 1.21 H Estim Creat Clear Calc 42.49 L Est GFR (MDRD) Non-Af 59 L BUN/Creatinine Ratio 19.6 Glucose 88 Calcium 9.4 Radiography Chest X-Ray - ED: 2 View, Read by ED Physician, Read by Radiologist and No Acute Disease Diagnostic Testing: Clinical Impression(s) from Imaging Studies Chest X-Ray 06/06/25 09:39 IMPRESSION: No evidence of acute cardiopulmonary abnormality. Reading Location: [place] [id number] PA and lateral chest x-ray was obtained. There are 2 views. On my independent interpretation, lung staton are clear. There is normal cardiac silhouette. Bony thorax is normal. There is no acute process noted. Radiologist also interpreted the x-ray and agrees. Treatment and Re-Evaluation :: Patient was advised of his findings. Patient will be taken to the [facility] for pacemaker battery replacement. Patient understood and was agreeable with the plan. All questions were answered. Discharge Plan Dx/Rx/DC Orders Clinical Impression: Implantable cardioverter-defibrillator (ICD) at end of battery life, Type 2 diabetes mellitus without complications, Chronic kidney disease (CKD), stage II (mild) Disposition Disposition: Acute Care Hospital [facility]
[2025-06-06 10:00] LABS: Hematocrit 39.9 % (40-54); Hemoglobin 12.9 g/dL (13.0-16.5); Immature Granulocytes Count 0.020 X10^3/uL (0.0-0.0); Mean Corp Hgb Conc 32.3 g/dL (32-36); Mean Corpuscular Volume 95.0 fL (80-94); Mean Platelet Vol. 9.4 fl (6.2-12.0); NRBC Flagged by Analyzer 0 % (0-5); Platelet Count 195 K/mm3 (150-450); RBC Distribution Width CV 13.2 % (11.6-14.6); RBC Distribution Width SD 46.4 fl (35.1-43.9); Red Blood Count 4.20 M/mm3 (4.6-6.2); White Blood Count 6.1 K/mm3 (4.4-11.0)
[2025-06-06 10:22] LABS: Anion Gap 10 (5-15); BUN 24 mg/dL (4-19); BUN/Creat Ratio 19.6 RATIO (10-20); Calcium,Total 9.4 mg/dL (7.6-11.0); Carbon Dioxide 27.2 mmol/L (21.0-32.0); Chloride 104 mmol/L (98-108); Estimated Creatinine Clearance 42.49 ml/min (50-250); Glucose 88 mg/dL (70-99); Potassium 3.8 mmol/L (3.3-5.1)
[2025-06-06 11:07] VITALS: BP 115/73; PULSE 60; RESP 23; TEMP 37; O2SAT 100
--- NOTE | 2025-06-06 12:39 | EX.DEFIBPR_ITS ---
Defibrillator Procedure Note
--- NOTE | 2025-06-06 12:39 | EX.DEFIBPROC ---
Defibrillator Procedure Note Defibrillator Procedure Note Procedure: Successful dual chamber ICD generator change. Indication: Low battery Indication Primary Prevention Ischemic Cardiomyopathy NYHA Class II LVEF 20% Permanent atrial fibrillatin Findings: The patient was brought to the EP LAB in the fasting well-hydrated state and prepped and draped in the usual sterile fashion. Local anesthesia with 2% lidocaine was used to achieve a numbing effect in the left pectoral region. In addition, conscious sedation with iv versed/morphine was administered. I was present with the patient for the duration of moderate sedation and supervised staff who had no other duties and monitored the patient for the entire procedure. Details of monitoring are stored in laboratory flow sheet. An incision was made over the prior incision. The incision was extended into the pocket with care taken in order to avoid injury to the underlying leads. Electrocautery was performed using a Plasma Blade. The ICD generator was then explanted. The leads were detached from the pulse generator and pacing parameters assessed with the PSA and found to be satisfactory. Reference the attached report. The pocket was then irrigated with copious antibiotic solution. A new dual chamber ICD generator was attached to the existing leads. The system was placed within the pocket. The pocket was irrigated with antibiotic solution. The pulse generator was placed into the pocket with redundant lead allowed to form a felipa coil behind the pulse generator. The device header was secured in place with a leash using a nonabsorbable suture. The pocket was closed in 2 layers with 2-0 and 3-0 Vicryl for the subcutaneous and subcuticular layers respectively. Hemostasis was achieved with manual pressure. Upon closure no bleeding was noted. A sterile dressing was applied. The patient was recovered and sent to their room in stable condition. Complications: none. Specimens: none. Estimated blood loss: 10mL.
--- NOTE | 2025-06-06 13:46 | DCINST_ITS ---
Discharge Instructions
--- NOTE | 2025-06-06 13:46 | PCM.DC ---
Discharge Instructions DC O2, CPAP, BIPAP needs Home O2 Discharge instructions: No Dressing / Incision Discharge Activity: Return to Normal Activity May resume sexual activity in: No Restrictions Weight Bearing Status: Full weight bearing Dressing / Incision Call your doctor if your incision/area has: Continuous Slow Oozing Call your doctor if you observe: Fever of 101 or Higher Change Dressing in: leave in place till F/U Remove Dressing in: 1 day (remove pressure dressing in am) Follow Up Care Please Follow Up With: Natalie Hammonds When: 7-10 days Test Results: Test results from this visit will be discussed in further detail at your follow-up appointment, if applicable. Discharge Plan Admission Primary Reason for Your Visit: low icd battery Attending Provider: Sean Horowitz Primary Care Provider: Jose Enrique Finney Instructions Print Language: Chinese Discharge Orders/Prescriptions Prescriptions: Continued nitroglycerin [Nitrostat] 0.4 mg tablet, sublingual 0.4 mg sublingual Q5-15M PRN (Reason: chest pain) Qty: 25 3RF Rx Instructions: do not exceed 3 doses per episode zolpidem 5 mg tablet 5 mg PO QHS PRN (Reason: sleep) insulin lispro [Humalog KwikPen Insulin] 100 unit/mL insulin pen 10 unit subcut TID Patient Comments: pt states taking only at lunch if needed sometimes twice daily multivitamin with folic acid 1 TABLET tablet 1 tab PO DAILY Patient Comments: takes but not consistently insulin detemir U-100 100 unit/mL (3 mL) insulin pen 32 unit SC QHS (DME) True Metrix Glucose Test Strip Strip 1 strip MISCELLANEOUS TID apixaban 5 mg tablet 5 mg PO BID Qty: 180 3RF carvedilol 12.5 mg tablet 12.5 mg PO BID Qty: 180 3RF rosuvastatin 40 mg tablet 40 mg PO DAILY Qty: 90 3RF isosorbide mononitrate 30 mg tablet extended release 24 hr 30 mg PO DAILY Qty: 90 3RF furosemide 40 mg tablet 40 mg PO BID Qty: 180 3RF acetaminophen [Tylenol Extra Strength] 500 mg tablet 500 mg PO Q6H PRN (Reason: back pain) Qty: 60 0RF potassium chloride 20 mEq tablet,ER particles/crystals 20 meq PO BID Qty: 180 3RF Referrals / Follow Up: Jose Enrique Finney MD [Primary Care Provider, Family Practice] Disposition Disposition (needs filled in before D/C Order can be placed): Home, Self Care
== END 2025-06-06 13:35 | disposition home or self-care (01) ==
LOC: ED 10:07 → SDC 11:06 → ACINP 11:07
PROVIDERS: Emergency Provider Emergency Medicine; PCP Family Medicine; Visit Provider Internal Medicine Clinical Cardiac Electrophysiology
DX: Z45.02 Encounter for adjustment and management of automatic implantable cardiac defibrillator (principal); I50.9 Heart failure, unspecified; I13.0 Hypertensive heart and chronic kidney disease with heart failure and stage 1 through stage 4 chronic kidney disease, or unspecified chronic kidney disease; I48.0 Paroxysmal atrial fibrillation; E11.22 Type 2 diabetes mellitus with diabetic chronic kidney disease; Z79.4 Long term (current) use of insulin; E78.2 Mixed hyperlipidemia; I25.10 Atherosclerotic heart disease of native coronary artery without angina pectoris; Z87.891 Personal history of nicotine dependence; N18.2 Chronic kidney disease, stage 2 (mild); Z79.01 Long term (current) use of 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s; Z79.890 Hormone replacement therapy
CPT/HCPCS: 33263; 71046; 80048; 85025; 99152; 99153; 99283; A4216